=== PATIENT | female | born 1935 | race Two or more races ===

== ENCOUNTER 2016-07-31 05:03 | Inpatient (IN) | payer MEDICARE, BC ==
[~2016-07-31] VITALS: Ht 157.5 cm; Wt 54.4 kg
[2016-07-31] MEDS ORDERED: Vancomycin 1 GM in NS 275 ML IV ONE (05:15)
[2016-07-31] MEDS ORDERED: NS 1000ml 1,400 ML IVLG ONE (05:15)
[2016-07-31] MEDS ORDERED: Cefepime 1gm vial ONE (05:28)
[2016-07-31] MEDS ORDERED: PANTOPRAZOLE SO40 MG GT (05:39)
[2016-07-31] MEDS ORDERED: DIGOXIN250 MCG GT (05:39)
[2016-07-31] MEDS ORDERED: ELIQUIS2.5 MG GT (05:39)
[2016-07-31] MEDS ORDERED: ACETAMINOPHEN120 MG RECTAL (05:39)
[2016-07-31] MEDS ORDERED: OMEPRAZOLE20 M3 GT (05:39)
[2016-07-31] MEDS ORDERED: TRAMADOL HCL50 MG GT (05:39)
[2016-07-31] MEDS ORDERED: ZOFRAN4 M3 GT (05:39)
[2016-07-31] MEDS ORDERED: VITAMIN D250000 UNI1 GT (05:39)
[2016-07-31] MEDS ORDERED: LEVOTHYROXINE75 MCG GT (05:39)
[2016-07-31] MEDS ORDERED: IPRATROPIU0.2 MG/1 M IN-LINE ×2 (05:39)
--- NOTE | 2016-07-31 05:39 | Emergency Room Report ---
History of Present Illness General Chief Complaint: Dyspnea/Respdistress Source: Medical Record, EMS Present Illness HPI Patient is a 81-year-old female sent in by shelter after increased difficulty breathing. Patient had prior history of tracheostomy and metastatic cancer. The patient was noted to have increased difficulty breathing with decreased oxygen saturation and low blood pressure. Patient was noted to have a saturation on approximately 81 by EMS. She started on oxygen via bag valve mask. Patient had been weaned off her ventilator and was noted to have increased leaking of secretions from tracheostomy, Allergies: Coded Allergies: PENICILLINS (Verified Allergy, Unknown, 07/31/16) Patient History Past Medical History: see triage record Reviewed Nursing Documentation: PMH: Agreed, PSxH: Agreed Nursing Documentation-PMH Hx Cardiac Problems: Yes - A FIB,DVT RT UPPER EXTREMITY Hx Cancer: Yes - TONGUE Hx Gastrointestinal Problems: Yes - GASTROSTOMY History Of Psychiatric Problem: Yes - DEPRESSION Review of Systems All Other Systems: limited - by acuity Physical Exam Vital Signs Date Time Temp Pulse Resp B/P Pulse Ox O2 Delivery O2 Flow Rate FiO2 07/31/16 05:07 94 16 60/50 92 Mechanical Ventilator 100 General Appearance: alert, severe distress, Chronically Ill Eyes: bilateral eye PERRL ENT: dry mucus membranes Neck: limited range of motion, other - large amount of yellow fluid around trach Respiratory: respiratory distress, decreased breath sounds, rhonchi Cardiovascular #1: normal peripheral pulses, regular rate, rhythm, no edema Gastrointestinal: normal bowel sounds, non tender, soft, no mass Musculoskeletal: back normal, digits/nails normal Neurologic: alert, oriented x3, 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 Total critical care time excluding procedures approximately 45 minutes. Medical Decision Making Diagnostic Impression: Primary Impression: Respiratory distress Additional Impressions: Tracheostomy in place Pneumonia SCC (squamous cell carcinoma) ER Course Patient presented for respiratory distress. Differential included but was not limited to anemia, pneumonia, pneumothorax, myocardial infarction, pericardial effusion, congestive heart failure, acidosis. Because of complexity of patient' s case laboratory testing and imaging studies were ordered. The patient noted to have some large amount of tracheal secretions. Patient was suctioned and started on mechanical ventilation. She was given a breathing treatment. The patient was noted to have some evidence of pneumonia and was started on antibiotics. The patient was noted to have tolerated Rocephin in the past. The patient be admitted for further management to Dr. saavedra Chest X-Ray Diagnostic Results EP Interpretation: Yes Findings: no effusion, no pneumothorax, other - right lower lobe infiltrate Last Vital Signs Date Time Temp Pulse Resp B/P Pulse Ox O2 Delivery O2 Flow Rate FiO2 07/31/16 05:29 99 15 100 07/31/16 05:07 60/50 92 Mechanical Ventilator Status: unchanged Disposition: ADMITTED INPATIENT Condition: Critical Kg Pérez Jul 31, 2016 05:39
[2016-07-31 05:47] LABS: ABG BASE EXCESS 0.4
[2016-07-31 05:48] LABS: ABG ALLEN TEST POSITIVE
[2016-07-31 05:52] LABS: INR 1.1 (0.9-1.1); PROTHROMBIN TIME 11.6 SEC (9.30-11.50)
[2016-07-31 05:53] LABS: MEAN CORPUSCULAR HEMOGLOBIN 30.2 PG (27.0-31.0); MEAN CORPUSCULAR HGB CONC 31.3 G/DL (32.0-36.0); MEAN CORPUSCULAR VOLUME 97 FL (80-99); MEAN PLATELET VOLUME 6.8 FL (6.5-10.1); PLATELET COUNT 282 K/UL (150-450); RED BLOOD COUNT 3.46 M/UL (4.20-5.40); RED CELL DISTRIBUTION WIDTH 14.2 % (11.6-14.8)
[2016-07-31 05:57] LABS: WHITE BLOOD COUNT 22.4 K/UL (4.8-10.8)
[2016-07-31 05:59] LABS: ALANINE AMINOTRANSFERASE 24 U/L (3-33); ALBUMIN/GLOBULIN RATIO 0.7 (1.0-2.7); ANION GAP 13 (5-15); ASPARTATE AMINO TRANSFERASE 44 U/L (5-40); CALCIUM 8.7 mg/dL (8.6-10.2); CARBON DIOXIDE 30 mEQ/L (20-30); CHLORIDE 89 mEQ/L (98-107); CREATININE 1.2 mg/dL (0.5-0.9); HEMOLYSIS 25; LIPASE 40 U/L (< 60); POTASSIUM 4.7 mEQ/L (3.4-4.9); SODIUM 132 mEQ/L (135-145); TOTAL PROTEIN 6.8 g/dL (6.6-8.7)
[2016-07-31] MEDS ORDERED: Cefepime HCl 1 GM in NS 55 ML IV SCH (06:00)
[2016-07-31 06:03] LABS: TROPONIN I < 0.30 ng/mL (<=0.30)
[2016-07-31 06:08] LABS: REFLEX LACTIC ACID YES OR NO YES
[2016-07-31 06:10] LABS: CKMB 2.8 ng/mL (< 3.8)
[2016-07-31 06:30] VITALS: BP 90/75
[2016-07-31] MEDS ORDERED: Vancomycin 1gm inj IVPB ONE (06:34)
[2016-07-31 07:25] VITALS: BP 99/59
--- NOTE | 2016-07-31 08:34 | Diagnostic Imaging Report ---
Indications: Shortness of breath Technique: Portable AP chest Findings: Comparison: None Increased bronchovascular markings right lung base. Left upper lung obscured by overlying ventilator. Cardiac silhouette partially obscured. Pulmonary vasculature within normal limits. Bilateral costophrenic angles mildly blunted. Aortic arch mildly calcified. Tracheostomy tube in place. IMPRESSION: Right lung base changes likely compressive. Early pneumonia not excludable. Short interval followup recommended. Examination nondiagnostic for left upper lobe lung pathology due to overlying ventilator equipment Suggestion of small bibasal pleural effusions Cardiomegaly not excludable Aortosclerosis Tracheostomy
[2016-07-31 08:40] LABS: ANISOCYTOSIS 1+; BAND NEUTROPHILS % (MANUAL) 0 % (0-8); BASOPHILS % (MANUAL) 0 % (0-2); EOSINOPHILS % (MANUAL) 0 % (0-3); HYPOCHROMASIA 1+; LYMPHOCYTES % (MANUAL) 6 % (20-45); NEUTROPHILS % (MANUAL) 86 % (45-75); PLATELET ESTIMATE ADEQUATE; PLATELET MORPHOLOGY NORMAL; TOTAL CELLS COUNTED 100
[2016-07-31 09:58] LABS: ABG BASE EXCESS 4.7; ABG PCO2 48.8 mmHg (35.0-45.0)
[2016-07-31 09:59] LABS: ABG ALLEN TEST POSITIVE
[2016-07-31] MEDS ORDERED: Amikacin Rx to dose MISC PRN (10:00)
--- NOTE | 2016-07-31 11:05 | Wound Care Consultation ---
Wound Assessment Wound Assessment #1: Wound Number: #1 Wound Present on Admission: Yes New Wound: No Status Change of Wound: No Wound Location Body Site Modif: mid Wound Location Body Site: sacral Wound Type: pressure ulcer - SCATTERED Ross Test: Does not Ross Pressure Ulcer Stage: III Wound Thickness: Full Thickness Wound Length: 3.0 Wound Width: 2.0 Wound Depth: 0.3 Percent of Wound [place]/Red: 100 Wound Drainage Description: Serosanguineous Wound Drainage Amount: Scant Wound Drainage Odor: None/Absent Tissue Surrounding Wound: Macerated Wound General Appearance: Reddened Wound Assessment #2: Wound Number: #2 Wound Present on Admission: Yes New Wound: No Status Change of Wound: No Wound Location Body Site: perineal area Wound Type: chemical burn Ross Test: Does not Ross Percent of Wound [place]/Red: 100 Wound Drainage Amount: None Wound Drainage Odor: None/Absent Tissue Surrounding Wound: Macerated Wound General Appearance: Reddened, Open to air Wound Comment #1 Mid Sacral scattered pressure ulcer stage III. #2 perineal area chemical burn. Recommendation -Apply low air loss overlay (SPR) mattress. -Local wound care as ordered. -Turn and reposition. -Keep clean and dry. -Optimize nutrition. -Heel protectors. -Offload affected sacral site , heels and feet. -Asses and notify if any changes of condition are noted. YADIRA DIAMOND Jul 31, 2016 11:05
[2016-07-31] MEDS ORDERED: Vitamin D 50,000 units cap ORAL SCH (11:45)
[2016-07-31 12:00] VITALS: BP 111/60
[2016-07-31] MEDS: Levofloxacin 500mg tab ORAL SCH (12:28)
[2016-07-31] MEDS: Digoxin Elixir 0.125mg GT SCH (12:30)
[2016-07-31] MEDS ORDERED: traMADol 50mg tab GT PRN (12:30)
[2016-07-31] MEDS: LORazepam Inj 2mg/ml 1ml IV PRN (13:38)
[2016-07-31] MEDS: D5W IV SCH (13:45)
[2016-07-31] MEDS: AMIKACIN IV SCH (13:45)
[2016-07-31] MEDS: DuoNeb 0.5-3(2.5)mg/3ml neb HHN SCH ×3 (15:00→23:16)
[2016-07-31 16:00] VITALS: BP 93/49
--- NOTE | 2016-07-31 19:47 | Consultation ---
DATE OF CONSULTATION: PULMONARY CONSULTATION CONSULTING PHYSICIAN: Brice Grove M.D. REASON FOR ADMISSION: Respiratory failure, possible sepsis. HISTORY OF PRESENT ILLNESS: The patient is a 81-year-old female who was recently admitted to the subacute facility at [facility]. The patient was sent in for increasing difficulty with breathing. The patient had been off the respirator and now readmitted. The patient has a history of tracheostomy and metastatic cancer. The patient with some baseline confusion. She was noted to have difficulty breathing with reduced oxygen level and reduced blood pressure. The patient was apparently bag-valved on transfer. She had previously been off the ventilator, presently is on the ventilator. The patient's care discussed and reviewed in detail. PAST MEDICAL HISTORY: Notable for metastatic cancer, atrial fibrillation, DVT of the right upper extremity, depression, and tongue cancer. MEDICATIONS: Reviewed. ALLERGIES: Reviewed. REVIEW OF SYSTEMS: Limited at present. Difficult to obtain. FAMILY HISTORY: The patient's family history is not available. PHYSICAL EXAMINATION: GENERAL: A well-developed female, chronically ill. VITAL SIGNS: Temperature 99.3, pulse 87, respirations 13, and saturation 100% on 50% FiO2. HEENT: Negative. Pupils are sluggish, but reactive. NECK: Supple. Some deformity noted. The patient has a tracheostomy in the midline. Carotids are 2+. LUNGS: Coarse breath sounds. Moderate air entry. CARDIAC: Normal S1 and S2. Regular rhythm without murmurs, rubs, or gallops. ABDOMEN: Soft, nontender, and nondistended. No hepatosplenomegaly. EXTREMITIES: No cyanosis or clubbing. There is trace edema. Degenerative joint disease. NEUROLOGICAL: Reduced mental status overall. Difficulty to fully assess. LABORATORY DATA: White blood cell count 22.4, hemoglobin 10.5, hematocrit 33.5, and platelets are 282,000. Chemistry, sodium 132, BUN 21, creatinine 1.2, and blood sugar 226. Lactic acid 5.5, repeated is 3.6. Arterial blood gas is 7.26, 64, 440, and 28. The chest x-ray reviewed as well, reveals right lung base with potential changes, possible early pneumonia. IMPRESSION: 1. History of tongue cancer. 2. Evidence of bilateral pleural effusion. 3. Respiratory failure. 4. Acute respiratory acidosis. 5. Hypoxemia. 6. Evidence of transient hypotension. 7. Leukocytosis. 8. Possible sepsis. 9. Significant lactic acidemia 10. Elevated liver enzymes. 11. Elevated natriuretic peptide. 12. Evidence of anemia. 13. Failure to thrive. 14. Atrial fibrillation, paroxysmal. RECOMMENDATION: Resume senior living medications. Aggressive antibiotics. Anticoagulation for atrial fibrillation, paroxysmal. Monitor TSH. Continue with Synthroid. IV hydration with caution. Respiratory care. Ventilatory support. Follow for arterial blood gases after ventilation has stabilized. Monitor cultures. Obtain ID evaluation and nutritional support. The patient is guarded at present. We will update family once available, and we will continue to support and stabilize. Monitor changes in oxygenation and hope to transfer back to the subacute when stabilized. We will need to discuss advance directive as well. Brice Grove M.D. DR: MARIAM JOB#: [id number] CC:
[2016-07-31 20:00] VITALS: BP 105/46
[2016-07-31 22:19] LABS: APPEARANCE,URINE CLEAR; KETONES,URINE 2+ (NEGATIVE); LEUKOCYTE ESTERASE ,URINE 2+ (NEGATIVE); NITRITE,URINE NEGATIVE (NEGATIVE); PH,URINE 6 (4.5-8.0); PROTEIN,URINE 2+ (NEGATIVE); UROBILINOGEN,URINE NORMAL MG/DL (0.0-1.0)
[2016-07-31 22:36] LABS: BACTERIA,URINE FEW /HPF
[2016-08-01] VITALS: BP 105/49
[2016-08-01] MEDS: AMIKACIN IV SCH (00:48)
[2016-08-01] MEDS: D5W IV SCH (00:48)
--- NOTE | 2016-08-01 01:28 | History and Physical Report ---
DATE OF ADMISSION: 07/31/2016 CHIEF COMPLAINT: Respiratory distress. HISTORY OF PRESENT ILLNESS: The patient is an unfortunate 81-year-old female well known to me. She has a prior history of squamous cell carcinoma of the tongue, status post resection. She received radiation therapy and hormonal treatment and had been doing well. A little over a month and a half ago, she developed upper gastrointestinal bleed, was admitted to [facility]. She developed aspiration pneumonia and was intubated on several occasions, eventually had placement of a tracheostomy. Because of persistent shortness of breath and positive secretions. She went to [facility] and was later transferred to rehabilitation addison on [facility]. She has only been there for a few days when she apparently became short of breath and congested, was transferred to the emergency room where she was diagnosed with aspiration pneumonia and sepsis. A tracheostomy was replaced in the emergency room and the patient is now on the ventilator. She is poorly responsive. She has received Ativan for anxiety. PAST MEDICAL HISTORY: As above. PAST SURGICAL HISTORY: As above. She has a history of tracheostomy. She has a history of G-tube. CURRENT MEDICATIONS: Reconciled and reviewed. ALLERGIES: Include penicillin. FAMILY HISTORY: Noncontributory. SOCIAL HISTORY: There is no known history of tobacco, ethanol, or drugs. REVIEW OF SYSTEMS: Not obtainable as the patient is confused. PHYSICAL EXAMINATION: VITAL SIGNS: Temperature 98 degrees, blood pressure is 93/49, pulse of 90, and respirations 14. GENERAL: The patient is a chronically ill-appearing female. She opens eyes, but is otherwise poorly responsive. Does not follow commands. NECK: Supple. HEART: Regular rate and rhythm. LUNGS: Bilateral rhonchi. ABDOMEN: Soft, nontender, and nondistended. EXTREMITIES: Without clubbing, cyanosis, or edema. LABORATORY AND DIAGNOSTIC DATA: White count was 23,000, hemoglobin 10, hematocrit 33, and platelets of 282,000. ABG showed a pH of 7.4, pCO2 of 48, pO2 of 143, bicarb of 30, and O2 saturation 98%. Sodium was 132, potassium 4.7, chloride 89, bicarb 30, BUN 21, and creatinine 1.2. Natriuretic peptide level was 2300. Lactic acid level was 5.5. Chest x-ray shows right lung compressive changes, possible early pneumonia. ASSESSMENT: 1. 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 2. Respiratory failure. 3. History of metastatic squamous cell carcinoma. PLAN: IV antibiotics, vent support, continue respiratory treatments. Continue G-tube feeds. Plan and care was discussed at length with the patient's son. He states that his mother expressed her wish is to be a Full Code, continue with aggressive treatment. Rico Madrigal M.D. DR: MARY JOB#: [id number] CC:
[2016-08-01] MEDS: DuoNeb 0.5-3(2.5)mg/3ml neb HHN SCH ×6 (02:35→23:07)
[2016-08-01 04:00] VITALS: BP 110/47
[2016-08-01 04:48] LABS: BASOPHILS % (AUTO) 0.8 % (0.0-2.0); EOSINOPHILS % (AUTO) 0.1 % (0.0-3.0); LYMPHOCYTES % (AUTO) 12.4 % (20.0-45.0); MEAN CORPUSCULAR HEMOGLOBIN 30.4 PG (27.0-31.0); MEAN CORPUSCULAR HGB CONC 32.9 G/DL (32.0-36.0); MEAN CORPUSCULAR VOLUME 92 FL (80-99); MEAN PLATELET VOLUME 6.4 FL (6.5-10.1); MONOCYTES % (AUTO) 9.9 % (1.0-10.0); NEUTROPHILS % (AUTO) 76.7 % (45.0-75.0); PLATELET COUNT 203 K/UL (150-450); RED BLOOD COUNT 2.78 M/UL (4.20-5.40); RED CELL DISTRIBUTION WIDTH 13.8 % (11.6-14.8); WHITE BLOOD COUNT 13.9 K/UL (4.8-10.8)
[2016-08-01 05:54] LABS: ANION GAP 13 (5-15); CALCIUM 7.8 mg/dL (8.6-10.2); CARBON DIOXIDE 25 mEQ/L (20-30); CHLORIDE 97 mEQ/L (98-107); CREATININE 0.8 mg/dL (0.5-0.9); HEMOLYSIS 12; POTASSIUM 4.1 mEQ/L (3.4-4.9); SODIUM 135 mEQ/L (135-145)
[2016-08-01] MEDS: Vancomycin 750 MG in NS 275 ML IVPB SCH (06:21)
[2016-08-01 06:35] LABS: ABG ALLEN TEST POSITIVE; ABG BASE EXCESS 5.4; ABG PCO2 38.8 mmHg (35.0-45.0)
[2016-08-01 08:00] VITALS: BP 91/42
--- NOTE | 2016-08-01 08:24 | Pulmonology Progress Note ---
Assessment/Plan Assessment/Plan IMPRESSION: 1. History of tongue cancer. 2. Evidence of bilateral pleural effusion. 3. Respiratory failure. 4. Acute respiratory acidosis. 5. Hypoxemia. 6. Evidence of transient hypotension. 7. Leukocytosis. 8. Possible sepsis. 9. Significant lactic acidemia 10. Elevated liver enzymes. 11. Elevated natriuretic peptide. 12. Evidence of anemia. 13. Failure to thrive. 14. Atrial fibrillation, paroxysmal. PLAN IV antibiotics respiratory care as is oxygen therapy suction follow up cultures ID follow up monitor hemodynamics stabilize and transfer back to subacute impression, plan, and exam edited and reviewed in detail care discussed with RN Subjective ROS Limited/Unobtainable: Yes Allergies: Coded Allergies: PENICILLINS (Verified Allergy, Unknown, 07/31/16) Subjective care noted and reviewed d/w nursing Objective Last 24 Hour Vital Signs Date Time Temp Pulse Resp B/P Pulse Ox O2 Delivery O2 Flow Rate FiO2 08/01/16 06:40 85 14 100 Mechanical Ventilator 40 08/01/16 06:40 85 14 40 08/01/16 06:30 84 14 100 Mechanical Ventilator 40 08/01/16 06:30 40 08/01/16 04:55 86 14 40 08/01/16 04:00 98.0 90 14 110/47 100 Mechanical Ventilator 40 08/01/16 04:00 40 08/01/16 03:41 97 08/01/16 02:41 91 14 100 Mechanical Ventilator 40 08/01/16 02:37 88 14 100 Mechanical Ventilator 40 08/01/16 02:37 40 08/01/16 02:36 88 14 40 08/01/16 00:33 91 14 40 08/01/16 00:00 98.4 98 14 105/49 98 Mechanical Ventilator 40 08/01/16 00:00 40 07/31/16 23:48 99 07/31/16 23:26 89 14 100 Mechanical Ventilator 40 07/31/16 23:22 87 14 100 Mechanical Ventilator 40 07/31/16 23:22 40 07/31/16 23:22 87 14 40 07/31/16 21:11 90 14 40 07/31/16 20:00 98.2 97 14 105/46 100 Room Air 07/31/16 19:34 98 07/31/16 19:03 95 14 100 Mechanical Ventilator 40 07/31/16 18:59 94 15 100 Mechanical Ventilator 40 07/31/16 18:59 40 07/31/16 18:56 93 15 40 07/31/16 17:14 40 07/31/16 17:08 95 14 40 07/31/16 16:00 50 07/31/16 16:00 98.4 90 14 93/49 100 Mechanical Ventilator 50 07/31/16 15:52 94 14 45 07/31/16 15:44 92 07/31/16 15:35 94 14 100 Mechanical Ventilator 45 07/31/16 15:30 93 14 100 Mechanical Ventilator 45 07/31/16 15:30 45 07/31/16 13:15 82 19 45 07/31/16 12:30 82 07/31/16 12:00 97.5 100 18 111/60 95 Mechanical Ventilator 50 07/31/16 11:00 84 14 45 07/31/16 09:00 100 07/31/16 09:00 100 07/31/16 09:00 97 07/31/16 08:47 86 16 50 Intake and Output 07/31/16 08/01/16 18:59 06:59 Intake Total 941.4 ml 1590 ml Output Total 100 ml 750 ml Balance 841.4 ml 840 ml Intake Oral 0 ml Free Water 150 ml 0 ml IV Total 611.4 ml 1200 ml Tube Feeding 180 ml 360 ml Blood Product 30 ml Output Urine Total 100 ml 750 ml # Bowel Movements 4 1 Objective GENERAL: A well-developed female, chronically ill. HEENT: Negative. Pupils are sluggish, but reactive. NECK: Supple. Some deformity noted. The patient has a tracheostomy in the midline. Carotids are 2+. LUNGS: Coarse breath sounds. Moderate air entry. with mild improvement CARDIAC: Normal S1 and S2. Regular rhythm without murmurs, rubs, or gallops. ABDOMEN: Soft, nontender, and nondistended. No hepatosplenomegaly. EXTREMITIES: No cyanosis or clubbing. There is trace edema. Degenerative joint disease. NEUROLOGICAL: Reduced mental status overall. Difficulty to fully assess. Laboratory Tests 07/31/16 09:50: Arterial Blood pH 7.400, Arterial Blood Partial Pressure CO2 48.8H, Arterial Blood Partial Pressure O2 143.7H, Arterial Blood HCO3 30.1H, Arterial Blood Oxygen Saturation 98.7H, Arterial Blood Base Excess 4.7, Talha Test Positive 07/31/16 21:00: Urine Color Yellow, Urine Appearance Clear, Urine pH 6, Urine Specific [place] 1.010, Urine Protein 2+H, Urine Glucose (UA) Negative, Urine Ketones 2+H, Urine Occult Blood 5+H, Urine Nitrite Negative, Urine Bilirubin Negative, Urine Urobilinogen Normal, Urine Leukocyte Esterase 2+H, Urine RBC 5-10H, Urine WBC 2- 4, Urine Squamous Epithelial Cells None, Urine Bacteria Few 08/01/16 03:15: White Blood Count 13.9H, Red Blood Count 2.78L, Hemoglobin 8.5L, Hematocrit 25.7L, Mean Corpuscular Volume 92, Mean Corpuscular Hemoglobin 30.4, Mean Corpuscular Hemoglobin Concent 32.9, Red Cell Distribution Width 13.8, Platelet Count 203, Mean Platelet Volume 6.4L, Neutrophils (%) (Auto) 76.7H, Lymphocytes (%) (Auto) 12.4L, Monocytes (%) (Auto) 9.9, Eosinophils (%) (Auto) 0.1, Basophils (%) (Auto) 0.8, Sodium Level 135, Potassium Level 4.1, Chloride Level 97L, Carbon Dioxide Level 25, Anion Gap 13, Blood Urea Nitrogen 19, Creatinine 0.8, Estimat Glomerular Filtration Rate , Glucose Level 104#, Calcium Level 7.8L 08/01/16 06:30: Arterial Blood pH 7.490H, Arterial Blood Partial Pressure CO2 38.8, Arterial Blood Partial Pressure O2 157.6H, Arterial Blood HCO3 29.0H, Arterial Blood Oxygen Saturation 98.8H, Arterial Blood Base Excess 5.4, Talha Test Positive Current Medications Medications (Trade) Dose Ordered Sig/Josiah Route PRN Reason Start Time Stop Time Status Last Admin Dose Admin Acetaminophen 650 mg 650 mg Q4H PRN ORAL Mild Pain/Temp > 100.5 07/31/16 10:30 08/30/16 10:29 Albuterol/ Ipratropium (DuoNeb 0.5-3(2.5)mg/3ml) 3 ml Q4HRT HHN 07/31/16 15:00 08/05/16 14:59 08/01/16 07:59 Amikacin Protocol 1 ea 1 ea DAILY PRN MISC Per rx protocol 07/31/16 10:00 08/30/16 09:59 Amikacin Sulfate/ Dextrose (Amikin/D5W) 111.4 ml @ 222 mls/hr Q12H IV 07/31/16 13:00 08/07/16 12:59 08/01/16 00:48 Digoxin (Lanoxin) 0.25 mg DAILY GT 07/31/16 12:30 08/30/16 12:29 07/31/16 12:30 Levofloxacin (Levaquin) 500 mg DAILY ORAL 07/31/16 11:00 08/07/16 10:59 07/31/16 12:28 Lorazepam (Ativan 2mg/ml 1ml) 1 mg Q3H PRN IV For Anxiety 07/31/16 10:30 08/07/16 10:29 07/31/16 13:38 Ondansetron HCl (Zofran) 4 mg Q6H PRN IVP Nausea & Vomiting 07/31/16 12:30 08/30/16 12:29 Sodium Chloride (Sodium Chloride 1000ml bag) 1,000 ml @ 100 mls/hr Q10H IV 07/31/16 10:30 08/30/16 10:29 08/01/16 06:21 Tramadol HCl (Ultram) 25 mg Q6H PRN GT Moderate Pain (Pain Scale 4-6) 07/31/16 12:30 08/07/16 12:29 Vancomycin HCl (Vanco rx to dose) 1 ea DAILY PRN MISC Per rx protocol 07/31/16 09:45 08/30/16 09:44 Vancomycin HCl 750 mg/Sodium Chloride 275 ml @ 183.708 mls/hr Q24H IVPB 08/01/16 06:00 08/06/16 05:59 08/01/16 06:21 MARCY MAJOR Aug 01, 2016 08:24
[2016-08-01] MEDS: Digoxin Elixir 0.125mg GT SCH (09:00)
[2016-08-01] MEDS: Levofloxacin 500mg tab ORAL SCH (10:32)
[2016-08-01] MEDS: LORazepam Inj 2mg/ml 1ml IV PRN ×2 (11:03→18:37)
[2016-08-01 12:00] VITALS: BP 84/40
[2016-08-01] MEDS: metroNIDAZOLE 500mg tab ORAL SCH ×2 (14:47→21:11)
[2016-08-01 16:00] VITALS: BP 112/50
--- NOTE | 2016-08-01 17:21 | General Progress Note ---
Assessment/Plan Problem List: (1) Respiratory distress ICD Codes: R06.00 - Dyspnea, unspecified SNOMED: 946731145 (2) Pneumonia ICD Codes: J18.9 - Pneumonia, unspecified organism SNOMED: 869509733 (3) SCC (squamous cell carcinoma) ICD Codes: C44.92 - Squamous cell carcinoma of skin, unspecified SNOMED: 983894009 (4) Tracheostomy in place ICD Codes: Z93.0 - Tracheostomy status SNOMED: 984049046 Status: stable Assessment/Plan iv abx follow up cultures resp care suctioning feeds monitor h/h transfuse prn full code per son Subjective ROS Limited/Unobtainable: No Constitutional: Reports: malaise, weakness HEENT: Reports: no symptoms Cardiovascular: Reports: no symptoms Respiratory: Reports: cough, shortness of breath, sputum Gastrointestinal/Abdominal: Reports: difficulty swallowing Genitourinary: Reports: no symptoms Neurologic/Psychiatric: Reports: no symptoms Endocrine: Reports: no symptoms Hematologic/Lymphatic: Reports: anemia Allergies: Coded Allergies: PENICILLINS (Verified Allergy, Unknown, 07/31/16) All Systems: reviewed and negative except above Subjective on the vent. less congested. on iv abx. wbc improved. h/h noted. cultures noted. d/w with son at length Objective Last 24 Hour Vital Signs Date Time Temp Pulse Resp B/P Pulse Ox O2 Delivery O2 Flow Rate FiO2 08/01/16 16:53 79 14 35 08/01/16 16:00 40 08/01/16 16:00 96.8 101 15 112/50 99 Mechanical Ventilator 40 08/01/16 15:10 77 14 40 08/01/16 15:10 77 14 100 Mechanical Ventilator 40 08/01/16 15:00 40 08/01/16 15:00 74 14 100 Mechanical Ventilator 40 08/01/16 13:31 86 14 40 08/01/16 12:00 40 08/01/16 12:00 91 08/01/16 12:00 97.3 95 14 84/40 99 Mechanical Ventilator 40 08/01/16 10:43 94 14 100 Mechanical Ventilator 40 08/01/16 10:43 94 16 40 08/01/16 10:35 90 14 100 Mechanical Ventilator 40 08/01/16 10:35 40 08/01/16 09:23 87 16 40 08/01/16 09:00 87 2/28/17 08:00 40 08/01/16 08:00 94 08/01/16 08:00 97.7 92 14 91/42 100 Mechanical Ventilator 40 08/01/16 06:40 85 14 100 Mechanical Ventilator 40 08/01/16 06:40 85 14 40 08/01/16 06:30 84 14 100 Mechanical Ventilator 40 08/01/16 06:30 40 08/01/16 04:55 86 14 40 08/01/16 04:00 98.0 90 14 110/47 100 Mechanical Ventilator 40 08/01/16 04:00 40 08/01/16 03:41 97 08/01/16 02:41 91 14 100 Mechanical Ventilator 40 08/01/16 02:37 88 14 100 Mechanical Ventilator 40 08/01/16 02:37 40 08/01/16 02:36 88 14 40 08/01/16 00:33 91 14 40 08/01/16 00:00 98.4 98 14 105/49 98 Mechanical Ventilator 40 08/01/16 00:00 40 07/31/16 23:48 99 07/31/16 23:26 89 14 100 Mechanical Ventilator 40 07/31/16 23:22 87 14 100 Mechanical Ventilator 40 07/31/16 23:22 40 07/31/16 23:22 87 14 40 07/31/16 21:11 90 14 40 07/31/16 20:00 98.2 97 14 105/46 100 Room Air 07/31/16 19:34 98 07/31/16 19:03 95 14 100 Mechanical Ventilator 40 07/31/16 18:59 94 15 100 Mechanical Ventilator 40 07/31/16 18:59 40 07/31/16 18:56 93 15 40 Intake and Output 07/31/16 08/01/16 19:00 07:00 Intake Total 1071.4 ml 1590 ml Output Total 100 ml 750 ml Balance 971.4 ml 840 ml Intake Oral 0 ml Free Water 150 ml 0 ml IV Total 711.4 ml 1200 ml Tube Feeding 210 ml 360 ml Blood Product 30 ml Output Urine Total 100 ml 750 ml # Bowel Movements 4 1 Laboratory Tests 07/31/16 21:00: Urine Color Yellow, Urine Appearance Clear, Urine pH 6, Urine Specific [place] 1.010, Urine Protein 2+H, Urine Glucose (UA) Negative, Urine Ketones 2+H, Urine Occult Blood 5+H, Urine Nitrite Negative, Urine Bilirubin Negative, Urine Urobilinogen Normal, Urine Leukocyte Esterase 2+H, Urine RBC 5-10H, Urine WBC 2- 4, Urine Squamous Epithelial Cells None, Urine Bacteria Few 08/01/16 03:15: White Blood Count 13.9H, Red Blood Count 2.78L, Hemoglobin 8.5L, Hematocrit 25.7L, Mean Corpuscular Volume 92, Mean Corpuscular Hemoglobin 30.4, Mean Corpuscular Hemoglobin Concent 32.9, Red Cell Distribution Width 13.8, Platelet Count 203, Mean Platelet Volume 6.4L, Neutrophils (%) (Auto) 76.7H, Lymphocytes (%) (Auto) 12.4L, Monocytes (%) (Auto) 9.9, Eosinophils (%) (Auto) 0.1, Basophils (%) (Auto) 0.8, Sodium Level 135, Potassium Level 4.1, Chloride Level 97L, Carbon Dioxide Level 25, Anion Gap 13, Blood Urea Nitrogen 19, Creatinine 0.8, Estimat Glomerular Filtration Rate , Glucose Level 104#, Calcium Level 7.8L 08/01/16 06:30: Arterial Blood pH 7.490H, Arterial Blood Partial Pressure CO2 38.8, Arterial Blood Partial Pressure O2 157.6H, Arterial Blood HCO3 29.0H, Arterial Blood Oxygen Saturation 98.8H, Arterial Blood Base Excess 5.4, Talha Test Positive 08/01/16 12:30: Amikacin Level Trough 4.5L 08/01/16 14:45: Amikacin Level Peak 3.4L Height (Feet): 5 Height (Inches): 2.00 Weight (Pounds): 120 General Appearance: WD/WN, lethargic, mild distress Neck: supple Cardiovascular: regular rhythm Respiratory/Chest: rhonchi - bilaterally Abdomen: normal bowel sounds, non tender, soft, no organomegaly, no mass Edema: no edema noted Arm (L), no edema noted Arm (R), no edema noted Leg (L), no edema noted Leg (R), no edema noted Pedal (L), no edema noted Pedal (R), no edema noted Generalized Neurologic: disoriented, aphasia CHRISTINA HAMMOND Aug 01, 2016 17:21
--- NOTE | 2016-08-01 17:48 | Consultation ---
DATE OF CONSULTATION: 08/01/2016 INFECTIOUS DISEASES CONSULTATION CONSULTING PHYSICIAN: Sai Armstrong M.D. REFERRING PHYSICIAN: Brice Grove M.D. REASON FOR CONSULTATION: Pneumonia. 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 She was found to have a pneumonia and an Infectious Diseases consultation has been obtained for antibiotics. PAST MEDICAL HISTORY: 1. 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 2. History of respiratory failure, status post tracheostomy. 3. Status post G-tube placement. MEDICATIONS: As an inpatient, the patient is on IV vancomycin, albuterol, amikacin, digoxin, Zofran, Ultram, Levaquin, Tylenol, and lorazepam. ALLERGIES: The patient is allergic to penicillin. SOCIAL HISTORY: No history of smoking, alcohol, or drug use. FAMILY HISTORY: Unknown. REVIEW OF SYSTEMS: Unable to obtain currently. PHYSICAL EXAMINATION: VITAL SIGNS: Temperature of 97.7 degrees, T-max of 98.4 degrees, pulse of 94, respiratory rate of 16, blood pressure of 91/42, and O2 saturation of 100%. HEENT: Pupils equally reactive to light and accommodation. Mouth appears clean without thrush. NECK: Tracheostomy site appears clean. CARDIOVASCULAR: Regular rate and rhythm. No murmurs. LUNGS: Clear to auscultation bilaterally. No crackles. No wheezes. ABDOMEN: Soft and nontender. No organomegaly. G-tube site appears clean. EXTREMITIES: No cyanosis, no clubbing, and no edema. LABORATORY DATA: White count of 22.4 yesterday, white count of 13.9 today, hemoglobin 8.5, hematocrit 25.7, MCV 92, and platelet count of 203,000 with neutrophils of 76%. Sodium 135, potassium 4.1, chloride 97, bicarbonate 25, BUN 19, creatinine 0.8, glucose 104, and calcium 7.8. On 07/31/2016, total bilirubin 0.3. AST 44, ALT 24, and alkaline phosphatase 92. CK of 193. CK-MB 2.8. Troponin less than 0.3. Total protein 6.8. Albumin 2.9. Lipase of 40. UA is showing 2 to 4 white cells. Chest x-ray is showing right lung base early pneumonia and possible small bibasilar pleural effusions noted. ASSESSMENT: 1. This is a 81-year-old lady with history of squamous cell carcinoma of the tongue with respiratory failure, who comes in now with a possible aspiration pneumonia. 2. Leukocytosis is improving. 3. Squamous cell carcinoma of the tongue. PLAN: 1. We will order sputum for Gram stain and culture. 2. We will order urine cultures. 3. We will order stool for C. difficile colitis. 4. Continue vancomycin. 5. Discontinue amikacin and Levaquin. 6. We will start the patient on cefepime and Flagyl. 7. We will follow up cultures and adjust antibiotics accordingly. I would like to thank, Dr. Grove, for this consultation. Sai Charles M.D. DR: DAVIDE JOB#: [id number] CC: Brice Grove M.D.
--- NOTE | 2016-08-01 18:51 | Cardiology Report ---
APPROVED REPORT EKG Measurement Heart [id number] Normal sinus rhythm Normal ECG
[2016-08-01 20:00] VITALS: BP 96/50
[2016-08-01] MEDS: Heparin 5000 units/ml inj SUBQ SCH (21:12)
[2016-08-02] VITALS: BP 106/40
[2016-08-02] MEDS: DuoNeb 0.5-3(2.5)mg/3ml neb HHN SCH ×6 (03:24→23:09)
[2016-08-02 04:00] VITALS: BP 99/41
[2016-08-02] MEDS: metroNIDAZOLE 500mg tab ORAL SCH ×2 (06:36→14:22)
[2016-08-02] MEDS: Vancomycin 750 MG in NS 275 ML IVPB SCH (06:52)
[2016-08-02 08:00] VITALS: BP 124/64
--- NOTE | 2016-08-02 08:11 | General Progress Note ---
Assessment/Plan Problem List: (1) Respiratory distress ICD Codes: R06.00 - Dyspnea, unspecified SNOMED: 913232016 (2) Pneumonia ICD Codes: J18.9 - Pneumonia, unspecified organism SNOMED: 459755667 (3) SCC (squamous cell carcinoma) ICD Codes: C44.92 - Squamous cell carcinoma of skin, unspecified SNOMED: 539807456 (4) Tracheostomy in place ICD Codes: Z93.0 - Tracheostomy status SNOMED: 040115396 Status: stable, unchanged Assessment/Plan iv abx follow up cultures resp care suctioning wean as able feeds monitor h/h transfuse prn full code per son Subjective ROS Limited/Unobtainable: No Constitutional: Reports: malaise, weakness HEENT: Reports: no symptoms Cardiovascular: Reports: no symptoms Respiratory: Reports: shortness of breath Gastrointestinal/Abdominal: Reports: difficulty swallowing Genitourinary: Reports: no symptoms Neurologic/Psychiatric: Reports: no symptoms Endocrine: Reports: no symptoms Hematologic/Lymphatic: Reports: anemia Allergies: Coded Allergies: PENICILLINS (Verified Allergy, Unknown, 07/31/16) All Systems: reviewed and negative except above Subjective on the vent. less congested. on iv abx. wbc improved. h/h noted. cultures noted. Objective Last 24 Hour Vital Signs Date Time Temp Pulse Resp B/P Pulse Ox O2 Delivery O2 Flow Rate FiO2 08/02/16 07:24 83 14 30 08/02/16 04:30 82 14 30 08/02/16 04:00 40 08/02/16 04:00 97.5 101 20 99/41 98 Mechanical Ventilator 08/02/16 03:48 101 08/02/16 03:38 82 14 100 Mechanical Ventilator 30 08/02/16 03:25 30 08/02/16 03:24 84 17 30 08/02/16 03:24 84 17 100 Mechanical Ventilator 30 08/02/16 01:01 86 14 30 08/02/16 00:19 106 08/02/16 00:00 40 08/02/16 00:00 98.2 105 20 106/40 100 Mechanical Ventilator 08/01/16 23:21 86 14 100 Mechanical Ventilator 30 08/01/16 23:09 30 08/01/16 23:08 81 14 30 08/01/16 23:07 81 14 100 Mechanical Ventilator 30 08/01/16 20:43 85 14 30 08/01/16 20:00 97.0 95 19 96/50 100 Mechanical Ventilator 30 08/01/16 20:00 40 08/01/16 19:42 30 08/01/16 19:30 81 14 100 Mechanical Ventilator 30 08/01/16 19:28 98 08/01/16 19:25 87 14 35 08/01/16 19:15 87 14 100 Mechanical Ventilator 30 08/01/16 19:15 30 08/01/16 16:53 79 14 35 08/01/16 16:00 40 08/01/16 16:00 96.8 101 15 112/50 99 Mechanical Ventilator 40 08/01/16 15:18 81 08/01/16 15:10 77 14 40 08/01/16 15:10 77 14 100 Mechanical Ventilator 40 08/01/16 15:00 40 08/01/16 15:00 74 14 100 Mechanical Ventilator 40 08/01/16 13:31 86 14 40 08/01/16 12:00 40 08/01/16 12:00 91 08/01/16 12:00 97.3 95 14 84/40 99 Mechanical Ventilator 40 08/01/16 10:43 94 14 100 Mechanical Ventilator 40 08/01/16 10:43 94 16 40 08/01/16 10:35 90 14 100 Mechanical Ventilator 40 08/01/16 10:35 40 08/01/16 09:23 87 16 40 08/01/16 09:00 87 Intake and Output 08/01/16 08/02/16 19:00 07:00 Intake Total 1368.108 ml 1606 ml Output Total 1300 ml 750 ml Balance 68.108 ml 856 ml Free Water 50 ml 30 ml IV Total 988.108 ml 1186 ml Tube Feeding 330 ml 330 ml Other 60 ml Output Urine Total 1300 ml 750 ml # Bowel Movements 2 3 Laboratory Tests 08/01/16 12:30: Amikacin Level Trough 4.5L 08/01/16 14:45: Amikacin Level Peak 3.4L 08/02/16 05:00: Vancomycin Level Trough 6.0 Height (Feet): 5 Height (Inches): 2.00 Weight (Pounds): 120 Objective General Appearance: WD/WN, lethargic, mild distress Neck: supple Cardiovascular: regular rhythm Respiratory/Chest: rhonchi - bilaterally Abdomen: normal bowel sounds, non tender, soft, no organomegaly, no mass Edema: no edema noted Arm (L), no edema noted Arm (R), no edema noted Leg (L), no edema noted Leg (R), no edema noted Pedal (L), no edema noted Pedal (R), no edema noted Generalized Neurologic: disoriented, aphasia CHRISTINA HAMMOND Aug 02, 2016 08:11
[2016-08-02] MEDS: Digoxin Elixir 0.125mg GT SCH (08:32)
[2016-08-02] MEDS: Heparin 5000 units/ml inj SUBQ SCH ×2 (09:00→21:03)
--- NOTE | 2016-08-02 09:54 | Pulmonology Progress Note ---
Assessment/Plan Assessment/Plan IMPRESSION: 1. History of tongue cancer. 2. Evidence of bilateral pleural effusion. 3. Respiratory failure. 4. Acute respiratory acidosis. 5. Hypoxemia. 6. Evidence of transient hypotension. 7. Leukocytosis. 8. Possible sepsis. 9. Significant lactic acidemia 10. Elevated liver enzymes. 11. Elevated natriuretic peptide. 12. Evidence of anemia. 13. Failure to thrive. 14. Atrial fibrillation, paroxysmal. PLAN IV antibiotics respiratory care as is oxygen therapy suction may need transfusion follow up cultures and taper antibiotics ID follow up and clearance monitor hemodynamics monitor trach and airway and secretions stabilize and transfer back to subacute impression, plan, and exam edited and reviewed in detail care discussed with RN Subjective ROS Limited/Unobtainable: Yes Allergies: Coded Allergies: PENICILLINS (Verified Allergy, Unknown, 07/31/16) Subjective care noted and reviewed d/w nursing and changes updated Objective Last 24 Hour Vital Signs Date Time Temp Pulse Resp B/P Pulse Ox O2 Delivery O2 Flow Rate FiO2 08/02/16 08:32 100 08/02/16 08:00 97.9 88 14 124/64 100 Mechanical Ventilator 30 08/02/16 07:24 83 14 30 08/02/16 04:30 82 14 30 08/02/16 04:00 40 08/02/16 04:00 97.5 101 20 99/41 98 Mechanical Ventilator 08/02/16 03:48 101 08/02/16 03:38 82 14 100 Mechanical Ventilator 30 08/02/16 03:25 30 08/02/16 03:24 84 17 30 08/02/16 03:24 84 17 100 Mechanical Ventilator 30 08/02/16 01:01 86 14 30 08/02/16 00:19 106 08/02/16 00:00 40 08/02/16 00:00 98.2 105 20 106/40 100 Mechanical Ventilator 08/01/16 23:21 86 14 100 Mechanical Ventilator 30 08/01/16 23:09 30 08/01/16 23:08 81 14 30 08/01/16 23:07 81 14 100 Mechanical Ventilator 30 08/01/16 20:43 85 14 30 08/01/16 20:00 97.0 95 19 96/50 100 Mechanical Ventilator 30 08/01/16 20:00 40 08/01/16 19:42 30 08/01/16 19:30 81 14 100 Mechanical Ventilator 30 08/01/16 19:28 98 08/01/16 19:25 87 14 35 08/01/16 19:15 87 14 100 Mechanical Ventilator 30 08/01/16 19:15 30 08/01/16 16:53 79 14 35 08/01/16 16:00 40 08/01/16 16:00 96.8 101 15 112/50 99 Mechanical Ventilator 40 08/01/16 15:18 81 08/01/16 15:10 77 14 40 08/01/16 15:10 77 14 100 Mechanical Ventilator 40 08/01/16 15:00 40 08/01/16 15:00 74 14 100 Mechanical Ventilator 40 08/01/16 13:31 86 14 40 08/01/16 12:00 40 08/01/16 12:00 91 08/01/16 12:00 97.3 95 14 84/40 99 Mechanical Ventilator 40 08/01/16 10:43 94 14 100 Mechanical Ventilator 40 08/01/16 10:43 94 16 40 08/01/16 10:35 90 14 100 Mechanical Ventilator 40 08/01/16 10:35 40 Intake and Output 08/01/16 08/02/16 19:00 07:00 Intake Total 1368.108 ml 1606 ml Output Total 1300 ml 750 ml Balance 68.108 ml 856 ml Free Water 50 ml 30 ml IV Total 988.108 ml 1186 ml Tube Feeding 330 ml 330 ml Other 60 ml Output Urine Total 1300 ml 750 ml # Bowel Movements 2 3 Objective GENERAL: A well-developed female, chronically ill. HEENT: Negative. Pupils are sluggish, but reactive. NECK: Supple. Some deformity noted. The patient has a tracheostomy in the midline. Carotids are 2+. LUNGS: Coarse breath sounds. Moderate air entry. without change CARDIAC: Normal S1 and S2. Regular rhythm without murmurs, rubs, or gallops. ABDOMEN: Soft, nontender, and nondistended. No hepatosplenomegaly. EXTREMITIES: No cyanosis or clubbing. There is trace edema. Degenerative joint disease. NEUROLOGICAL: Reduced LOC. Microbiology Date/Time Source Procedure Growth Status 07/31/16 05:00 Blood Blood Culture - Preliminary NO GROWTH AFTER 24 HOURS Resulted 07/31/16 05:00 Blood Blood Culture - Preliminary NO GROWTH AFTER 24 HOURS Resulted 07/31/16 21:00 Sputum Gram Stain Pending Resulted 07/31/16 21:00 Sputum Culture - Preliminary Gram Negative Bacillus 1 Resulted 08/01/16 12:00 Stool Clostridium difficile Toxin Assay - Final Complete 07/31/16 05:30 Rectum VRE Culture - Final NO VANCOMYCIN RESISTANT ENTEROCOCCUS ... Complete Laboratory Tests 08/01/16 12:30: Amikacin Level Trough 4.5L 08/01/16 14:45: Amikacin Level Peak 3.4L 08/02/16 05:00: Vancomycin Level Trough 6.0 Current Medications Medications (Trade) Dose Ordered Sig/Josiah Route PRN Reason Start Time Stop Time Status Last Admin Dose Admin Acetaminophen 650 mg 650 mg Q4H PRN ORAL Mild Pain/Temp > 100.5 07/31/16 10:30 08/30/16 10:29 Albuterol/ Ipratropium (DuoNeb 0.5-3(2.5)mg/3ml) 3 ml Q4HRT HHN 07/31/16 15:00 08/05/16 14:59 08/02/16 07:56 Cefepime HCl/ Dextrose (Maxipime/D5W) 50 ml @ 100 mls/hr DAILY IVPB 08/01/16 14:00 08/08/16 13:59 08/02/16 08:30 Digoxin (Lanoxin) 0.25 mg DAILY GT 07/31/16 12:30 08/30/16 12:29 08/02/16 08:32 Heparin Sodium (Porcine) 5000 units 5,000 units EVERY 12 HOURS SUBQ 08/01/16 21:00 08/31/16 20:59 08/01/16 21:12 Lorazepam (Ativan 2mg/ml 1ml) 1 mg Q3H PRN IV For Anxiety 07/31/16 10:30 08/07/16 10:29 08/01/16 18:37 Metronidazole (Flagyl) 500 mg EVERY 8 HOURS ORAL 08/01/16 14:00 08/08/16 13:59 08/02/16 06:36 Ondansetron HCl (Zofran) 4 mg Q6H PRN IVP Nausea & Vomiting 07/31/16 12:30 08/30/16 12:29 Sodium Chloride (Sodium Chloride 1000ml bag) 1,000 ml @ 100 mls/hr Q10H IV 07/31/16 10:30 08/30/16 10:29 08/02/16 03:02 Tramadol HCl 25 mg 25 mg Q6H PRN GT Moderate Pain (Pain Scale 4-6) 07/31/16 12:30 08/07/16 12:29 Vancomycin HCl (Vanco rx to dose) 1 ea DAILY PRN MISC Per rx protocol 07/31/16 09:45 08/30/16 09:44 Vancomycin HCl/ Sodium Chloride (Vancomycin/ Sodium Chloride) 275 ml @ 183.708 mls/hr Q24H IVPB 08/02/16 21:00 08/07/16 20:59 MARCY MAJOR Aug 02, 2016 09:54
[2016-08-02 10:46] LABS: BASOPHILS % (AUTO) 0.7 % (0.0-2.0); EOSINOPHILS % (AUTO) 1.3 % (0.0-3.0); LYMPHOCYTES % (AUTO) 14.8 % (20.0-45.0); MEAN CORPUSCULAR HEMOGLOBIN 29.7 PG (27.0-31.0); MEAN CORPUSCULAR HGB CONC 31.9 G/DL (32.0-36.0); MEAN CORPUSCULAR VOLUME 93 FL (80-99); MEAN PLATELET VOLUME 6.3 FL (6.5-10.1); MONOCYTES % (AUTO) 13.2 % (1.0-10.0); PLATELET COUNT 221 K/UL (150-450); RED BLOOD COUNT 2.93 M/UL (4.20-5.40); RED CELL DISTRIBUTION WIDTH 13.9 % (11.6-14.8); WHITE BLOOD COUNT 8.8 K/UL (4.8-10.8)
[2016-08-02 12:00] VITALS: BP 139/74
--- NOTE | 2016-08-02 14:34 | Infectious Diseases Prog Note ---
Assessment/Plan Assessment/Plan A: Pneumonia VDRF Tongue SCC Anemia PAF P; continue Zosyn & Vancomycin May discontinue Flagyl will f/u cultures Subjective ROS Limited/Unobtainable: Yes Respiratory: Reports: productive cough Allergies: Coded Allergies: PENICILLINS (Verified Allergy, Unknown, 07/31/16) Objective Vital Signs Last 24 Hour Vital Signs Date Time Temp Pulse Resp B/P Pulse Ox O2 Delivery O2 Flow Rate FiO2 08/02/16 13:11 83 17 30 08/02/16 12:00 98.1 114 14 139/74 100 Mechanical Ventilator 30 08/02/16 11:24 83 14 100 Mechanical Ventilator 30 08/02/16 11:15 30 08/02/16 11:15 80 14 100 Mechanical Ventilator 30 08/02/16 11:12 80 14 30 08/02/16 09:26 83 14 30 08/02/16 08:32 100 08/02/16 08:00 101 08/02/16 08:00 97.9 88 14 124/64 100 Mechanical Ventilator 30 08/02/16 08:00 40 08/02/16 07:24 83 14 30 08/02/16 04:30 82 14 30 08/02/16 04:00 40 08/02/16 04:00 97.5 101 20 99/41 98 Mechanical Ventilator 08/02/16 03:48 101 08/02/16 03:38 82 14 100 Mechanical Ventilator 30 08/02/16 03:25 30 08/02/16 03:24 84 17 30 08/02/16 03:24 84 17 100 Mechanical Ventilator 30 08/02/16 01:01 86 14 30 08/02/16 00:19 106 08/02/16 00:00 40 08/02/16 00:00 98.2 105 20 106/40 100 Mechanical Ventilator 08/01/16 23:21 86 14 100 Mechanical Ventilator 30 08/01/16 23:09 30 08/01/16 23:08 81 14 30 08/01/16 23:07 81 14 100 Mechanical Ventilator 30 08/01/16 20:43 85 14 30 08/01/16 20:00 97.0 95 19 96/50 100 Mechanical Ventilator 30 08/01/16 20:00 40 08/01/16 19:42 30 08/01/16 19:30 81 14 100 Mechanical Ventilator 30 08/01/16 19:28 98 08/01/16 19:25 87 14 35 08/01/16 19:15 87 14 100 Mechanical Ventilator 30 08/01/16 19:15 30 08/01/16 16:53 79 14 35 08/01/16 16:00 40 08/01/16 16:00 96.8 101 15 112/50 99 Mechanical Ventilator 40 08/01/16 15:18 81 08/01/16 15:10 77 14 40 08/01/16 15:10 77 14 100 Mechanical Ventilator 40 08/01/16 15:00 40 08/01/16 15:00 74 14 100 Mechanical Ventilator 40 Height (Feet): 5 Height (Inches): 2.00 Weight (Pounds): 120 HEENT: status post trach Respiratory/Chest: decreased breath sounds, other - on ventilator, secretions around tracheostomy Abdomen: soft, non tender, other - GT feeding Extremities: no edema Neurologic/Psychiatric: alert, responsive Microbiology Date/Time Source Procedure Growth Status 07/31/16 05:00 Blood Blood Culture - Preliminary NO GROWTH AFTER 24 HOURS Resulted 07/31/16 05:00 Blood Blood Culture - Preliminary NO GROWTH AFTER 24 HOURS Resulted 08/01/16 21:00 Sputum Gram Stain - Final Resulted 08/01/16 21:00 Sputum Sputum Culture Pending Resulted 07/31/16 21:00 Sputum Gram Stain - Final Resulted 07/31/16 21:00 Sputum Culture - Preliminary Gram Negative Bacillus 1 Resulted 08/01/16 12:00 Stool Clostridium difficile Toxin Assay - Final Complete 07/31/16 05:30 Rectum VRE Culture - Final NO VANCOMYCIN RESISTANT ENTEROCOCCUS ... Complete Laboratory Tests Test 08/01/16 14:45 08/02/16 05:00 08/02/16 10:15 Amikacin Level Peak 3.4 ug/mL (20.0-35.0) L Vancomycin Level Trough 6.0 ug/mL (5.0-12.0) White Blood Count 8.8 K/UL (4.8-10.8) Red Blood Count 2.93 M/UL (4.20-5.40) L Hemoglobin 8.7 G/DL (12.0-16.0) L Hematocrit 27.3 % (37.0-47.0) L Mean Corpuscular Volume 93 FL (80-99) Mean Corpuscular Hemoglobin 29.7 PG (27.0-31.0) Mean Corpuscular Hemoglobin Concent 31.9 G/DL (32.0-36.0) L Red Cell Distribution Width 13.9 % (11.6-14.8) Platelet Count 221 K/UL (150-450) Mean Platelet Volume 6.3 FL (6.5-10.1) L Neutrophils (%) (Auto) 70.0 % (45.0-75.0) Lymphocytes (%) (Auto) 14.8 % (20.0-45.0) L Monocytes (%) (Auto) 13.2 % (1.0-10.0) H Eosinophils (%) (Auto) 1.3 % (0.0-3.0) Basophils (%) (Auto) 0.7 % (0.0-2.0) Current Medications Medications (Trade) Dose Ordered Sig/Josiah Route PRN Reason Start Time Stop Time Status Last Admin Dose Admin Acetaminophen 650 mg 650 mg Q4H PRN ORAL Mild Pain/Temp > 100.5 07/31/16 10:30 08/30/16 10:29 Albuterol/ Ipratropium (DuoNeb 0.5-3(2.5)mg/3ml) 3 ml Q4HRT HHN 07/31/16 15:00 08/05/16 14:59 08/02/16 11:18 Cefepime HCl/ Dextrose (Maxipime/D5W) 50 ml @ 100 mls/hr DAILY IVPB 08/01/16 14:00 08/08/16 13:59 08/02/16 08:30 Digoxin (Lanoxin) 0.25 mg DAILY GT 07/31/16 12:30 08/30/16 12:29 08/02/16 08:32 Heparin Sodium (Porcine) 5000 units 5,000 units EVERY 12 HOURS SUBQ 08/01/16 21:00 08/31/16 20:59 08/02/16 09:00 Lorazepam (Ativan 2mg/ml 1ml) 1 mg Q3H PRN IV For Anxiety 07/31/16 10:30 08/07/16 10:29 08/01/16 18:37 Metronidazole (Flagyl) 500 mg EVERY 8 HOURS ORAL 08/01/16 14:00 08/08/16 13:59 08/02/16 14:22 Ondansetron HCl (Zofran) 4 mg Q6H PRN IVP Nausea & Vomiting 07/31/16 12:30 08/30/16 12:29 Sodium Chloride (Sodium Chloride 1000ml bag) 1,000 ml @ 100 mls/hr Q10H IV 07/31/16 10:30 08/30/16 10:29 08/02/16 12:30 Tramadol HCl 25 mg 25 mg Q6H PRN GT Moderate Pain (Pain Scale 4-6) 07/31/16 12:30 08/07/16 12:29 Vancomycin HCl (Vanco rx to dose) 1 ea DAILY PRN MISC Per rx protocol 07/31/16 09:45 08/30/16 09:44 Vancomycin HCl/ Sodium Chloride (Vancomycin/ Sodium Chloride) 275 ml @ 183.708 mls/hr Q24H IVPB 08/02/16 21:00 08/07/16 20:59 JENNIFER MCKEE Aug 02, 2016 14:34
[2016-08-02 16:00] VITALS: BP 106/47
[2016-08-02] MEDS: LORazepam Inj 2mg/ml 1ml IV PRN (16:47)
[2016-08-02 19:00] VITALS: BP 105/51
[2016-08-02] MEDS ORDERED: Vancomycin 1 GM in NS 275 ML IVPB SCH (21:00)
[2016-08-03] VITALS: BP 106/52
[2016-08-03] MEDS: DuoNeb 0.5-3(2.5)mg/3ml neb HHN SCH ×6 (02:44→23:13)
[2016-08-03 04:00] VITALS: BP 111/58
[2016-08-03 08:00] VITALS: BP 116/50
[2016-08-03] MEDS: Digoxin Elixir 0.125mg GT SCH (09:00)
--- NOTE | 2016-08-03 09:06 | Infectious Diseases Prog Note ---
Assessment/Plan Assessment/Plan A: Pneumonia VDRF Tongue SCC Anemia PAF P; continue Zosyn , discontinue Vancomycin repeat CXR will f/u cultures Subjective ROS Limited/Unobtainable: Yes Respiratory: Reports: shortness of breath Allergies: Coded Allergies: PENICILLINS (Verified Allergy, Unknown, 07/31/16) Objective Vital Signs Last 24 Hour Vital Signs Date Time Temp Pulse Resp B/P Pulse Ox O2 Delivery O2 Flow Rate FiO2 08/03/16 07:23 101 21 100 Mechanical Ventilator 30 08/03/16 07:07 95 18 100 Mechanical Ventilator 30 08/03/16 07:07 30 08/03/16 07:07 95 18 30 08/03/16 05:27 102 14 30 08/03/16 04:03 30 08/03/16 04:00 97.7 88 14 111/58 100 Mechanical Ventilator 30 08/03/16 04:00 110 08/03/16 02:57 80 14 100 Mechanical Ventilator 30 08/03/16 02:43 84 14 100 Mechanical Ventilator 30 08/03/16 02:43 30 08/03/16 02:42 84 14 30 08/03/16 00:54 87 14 30 08/03/16 00:01 100 08/03/16 00:00 97.2 86 14 106/52 99 Mechanical Ventilator 30 08/03/16 00:00 30 08/02/16 23:17 82 16 100 Mechanical Ventilator 30 08/02/16 23:09 30 08/02/16 23:09 84 14 99 Mechanical Ventilator 30 08/02/16 23:07 84 14 30 08/02/16 21:13 72 15 30 08/02/16 20:00 30 08/02/16 20:00 106 08/02/16 19:42 72 17 99 Mechanical Ventilator 30 08/02/16 19:30 30 08/02/16 19:29 69 17 30 08/02/16 19:29 73 19 99 Mechanical Ventilator 30 08/02/16 19:00 97.3 93 20 105/51 100 Mechanical Ventilator 30 08/02/16 16:55 87 14 30 08/02/16 16:42 103 08/02/16 16:00 30 08/02/16 16:00 97.3 87 20 106/47 100 Mechanical Ventilator 30 08/02/16 15:30 81 14 100 Mechanical Ventilator 30 08/02/16 15:25 84 14 100 Mechanical Ventilator 30 08/02/16 15:25 30 08/02/16 14:32 86 14 30 08/02/16 13:11 83 17 30 08/02/16 12:00 40 08/02/16 12:00 98.1 114 14 139/74 100 Mechanical Ventilator 30 08/02/16 12:00 98 08/02/16 11:24 83 14 100 Mechanical Ventilator 30 08/02/16 11:15 30 08/02/16 11:15 80 14 100 Mechanical Ventilator 30 08/02/16 11:12 80 14 30 08/02/16 09:26 83 14 30 Height (Feet): 5 Height (Inches): 2.00 Weight (Pounds): 120 HEENT: status post trach Respiratory/Chest: expiratory wheezing, other - on ventilator Cardiovascular: tachycardia Abdomen: soft, non tender, other - GT feeding Extremities: no edema Neurologic/Psychiatric: alert, responsive Lymphatic: other - neck adneopathy, mass bilateral Microbiology Date/Time Source Procedure Growth Status 08/01/16 21:00 Sputum Gram Stain - Final Resulted 08/01/16 21:00 Sputum Sputum Culture Pending Resulted 07/31/16 21:00 Sputum Gram Stain - Final Resulted 07/31/16 21:00 Sputum Culture - Preliminary Gram Negative Bacillus 1 Resulted 08/01/16 12:00 Stool Clostridium difficile Toxin Assay - Final Complete Laboratory Tests Test 08/02/16 10:15 White Blood Count 8.8 K/UL (4.8-10.8) Red Blood Count 2.93 M/UL (4.20-5.40) L Hemoglobin 8.7 G/DL (12.0-16.0) L Hematocrit 27.3 % (37.0-47.0) L Mean Corpuscular Volume 93 FL (80-99) Mean Corpuscular Hemoglobin 29.7 PG (27.0-31.0) Mean Corpuscular Hemoglobin Concent 31.9 G/DL (32.0-36.0) L Red Cell Distribution Width 13.9 % (11.6-14.8) Platelet Count 221 K/UL (150-450) Mean Platelet Volume 6.3 FL (6.5-10.1) L Neutrophils (%) (Auto) 70.0 % (45.0-75.0) Lymphocytes (%) (Auto) 14.8 % (20.0-45.0) L Monocytes (%) (Auto) 13.2 % (1.0-10.0) H Eosinophils (%) (Auto) 1.3 % (0.0-3.0) Basophils (%) (Auto) 0.7 % (0.0-2.0) Current Medications Medications (Trade) Dose Ordered Sig/Josiah Route PRN Reason Start Time Stop Time Status Last Admin Dose Admin Acetaminophen 650 mg 650 mg Q4H PRN ORAL Mild Pain/Temp > 100.5 07/31/16 10:30 08/30/16 10:29 Albuterol/ Ipratropium (DuoNeb 0.5-3(2.5)mg/3ml) 3 ml Q4HRT HHN 07/31/16 15:00 08/05/16 14:59 08/03/16 07:07 Cefepime HCl/ Dextrose (Maxipime/D5W) 50 ml @ 100 mls/hr DAILY IVPB 08/01/16 14:00 08/08/16 13:59 08/02/16 08:30 Digoxin (Lanoxin) 0.25 mg DAILY GT 07/31/16 12:30 08/30/16 12:29 08/02/16 08:32 Heparin Sodium (Porcine) 5000 units 5,000 units EVERY 12 HOURS SUBQ 08/01/16 21:00 08/31/16 20:59 08/02/16 21:03 Lorazepam (Ativan 2mg/ml 1ml) 1 mg Q3H PRN IV For Anxiety 07/31/16 10:30 08/07/16 10:29 08/02/16 16:47 Ondansetron HCl (Zofran) 4 mg Q6H PRN IVP Nausea & Vomiting 07/31/16 12:30 08/30/16 12:29 Sodium Chloride (Sodium Chloride 1000ml bag) 1,000 ml @ 100 mls/hr Q10H IV 07/31/16 10:30 08/30/16 10:29 08/02/16 22:53 Tramadol HCl 25 mg 25 mg Q6H PRN GT Moderate Pain (Pain Scale 4-6) 07/31/16 12:30 08/07/16 12:29 Vancomycin HCl (Vanco rx to dose) 1 ea DAILY PRN MISC Per rx protocol 07/31/16 09:45 08/30/16 09:44 Vancomycin HCl/ Sodium Chloride (Vancomycin/ Sodium Chloride) 275 ml @ 183.708 mls/hr Q24H IVPB 08/02/16 21:00 08/07/16 20:59 08/02/16 21:01 JENNIFER MCKEE 2, 2017 09:06
[2016-08-03] MEDS: Heparin 5000 units/ml inj SUBQ SCH ×2 (10:28→22:06)
[2016-08-03] MEDS: LORazepam Inj 2mg/ml 1ml IV PRN ×3 (10:38→18:59)
[2016-08-03 12:00] VITALS: BP 116/67
--- NOTE | 2016-08-03 13:01 | Diagnostic Imaging Report ---
Indication: Dyspnea Comparison: 07/31/16 A single view chest radiograph was obtained. Findings: Tracheostomy noted. Bones are osteopenic. There is elevation of the left hemidiaphragm. Impression: Elevation of the left hemidiaphragm. Mild basilar atelectasis.
--- NOTE | 2016-08-03 14:23 | General Progress Note ---
Assessment/Plan Problem List: (1) Respiratory distress ICD Codes: R06.00 - Dyspnea, unspecified SNOMED: 334030564 (2) Pneumonia ICD Codes: J18.9 - Pneumonia, unspecified organism SNOMED: 011292951 (3) SCC (squamous cell carcinoma) ICD Codes: C44.92 - Squamous cell carcinoma of skin, unspecified SNOMED: 846426583 (4) Tracheostomy in place ICD Codes: Z93.0 - Tracheostomy status SNOMED: 831213917 Status: stable, progressing Assessment/Plan iv abx follow up cultures resp care suctioning wean as able feeds monitor h/h/labs transfuse prn full code per son Subjective ROS Limited/Unobtainable: No Constitutional: Reports: malaise, weakness HEENT: Reports: no symptoms Cardiovascular: Reports: no symptoms Respiratory: Reports: shortness of breath, sputum Gastrointestinal/Abdominal: Reports: difficulty swallowing Genitourinary: Reports: no symptoms Neurologic/Psychiatric: Reports: pre-existing deficit Endocrine: Reports: no symptoms Hematologic/Lymphatic: Reports: anemia Allergies: Coded Allergies: PENICILLINS (Verified Allergy, Unknown, 07/31/16) All Systems: reviewed and negative except above Subjective on the vent. less congested. on iv abx. wbc improved. h/h noted. cultures noted. no labs today. anxious. cxr noted,. Objective Last 24 Hour Vital Signs Date Time Temp Pulse Resp B/P Pulse Ox O2 Delivery O2 Flow Rate FiO2 08/03/16 13:18 116 16 30 08/03/16 12:00 30 08/03/16 12:00 124 08/03/16 11:43 92 16 100 Mechanical Ventilator 30 08/03/16 11:30 89 14 30 08/03/16 11:30 30 08/03/16 11:30 89 14 100 Mechanical Ventilator 30 08/03/16 09:08 84 14 30 08/03/16 09:00 90 08/03/16 08:00 96.1 90 14 116/50 100 Mechanical Ventilator 30 08/03/16 08:00 90 08/03/16 08:00 30 08/03/16 07:23 101 21 100 Mechanical Ventilator 30 08/03/16 07:07 95 18 100 Mechanical Ventilator 30 08/03/16 07:07 30 08/03/16 07:07 95 18 30 08/03/16 05:27 102 14 30 3/2/17 04:03 30 08/03/16 04:00 97.7 88 14 111/58 100 Mechanical Ventilator 30 08/03/16 04:00 110 08/03/16 02:57 80 14 100 Mechanical Ventilator 30 08/03/16 02:43 84 14 100 Mechanical Ventilator 30 08/03/16 02:43 30 08/03/16 02:42 84 14 30 08/03/16 00:54 87 14 30 08/03/16 00:01 100 08/03/16 00:00 97.2 86 14 106/52 99 Mechanical Ventilator 30 08/03/16 00:00 30 08/02/16 23:17 82 16 100 Mechanical Ventilator 30 08/02/16 23:09 30 08/02/16 23:09 84 14 99 Mechanical Ventilator 30 08/02/16 23:07 84 14 30 08/02/16 21:13 72 15 30 08/02/16 20:00 30 08/02/16 20:00 106 08/02/16 19:42 72 17 99 Mechanical Ventilator 30 08/02/16 19:30 30 08/02/16 19:29 69 17 30 08/02/16 19:29 73 19 99 Mechanical Ventilator 30 08/02/16 19:00 97.3 93 20 105/51 100 Mechanical Ventilator 30 08/02/16 16:55 87 14 30 08/02/16 16:42 103 08/02/16 16:00 30 08/02/16 16:00 97.3 87 20 106/47 100 Mechanical Ventilator 30 08/02/16 15:30 81 14 100 Mechanical Ventilator 30 08/02/16 15:25 84 14 100 Mechanical Ventilator 30 08/02/16 15:25 30 08/02/16 14:32 86 14 30 Intake and Output 08/02/16 08/03/16 19:00 07:00 Intake Total 1840 ml 1675.000 ml Output Total 600 ml 600 ml Balance 1240 ml 1075.000 ml Free Water 100 ml 100 ml IV Total 1300 ml 1175.000 ml Tube Feeding 440 ml 400 ml Output Urine Total 600 ml 600 ml # Bowel Movements 1 2 Height (Feet): 5 Height (Inches): 2.00 Weight (Pounds): 120 Objective General Appearance: WD/WN, lethargic, mild distress Neck: supple Cardiovascular: regular rhythm Respiratory/Chest: rhonchi - bilaterally Abdomen: normal bowel sounds, non tender, soft, no organomegaly, no mass Edema: no edema noted Arm (L), no edema noted Arm (R), no edema noted Leg (L), no edema noted Leg (R), no edema noted Pedal (L), no edema noted Pedal (R), no edema noted Generalized Neurologic: disoriented, aphasia CHRISTINA HAMMOND Aug 03, 2016 14:23
[2016-08-03 16:00] VITALS: BP 100/52
--- NOTE | 2016-08-03 19:34 | Pulmonology Progress Note ---
Assessment/Plan Assessment/Plan IMPRESSION: 1. History of tongue cancer. 2. Evidence of bilateral pleural effusion. 3. Respiratory failure. 4. Acute respiratory acidosis. 5. Hypoxemia. 6. Evidence of transient hypotension. 7. Leukocytosis. 8. Possible sepsis. 9. Significant lactic acidemia 10. Elevated liver enzymes. 11. Elevated natriuretic peptide. 12. Evidence of anemia. 13. Failure to thrive. 14. Atrial fibrillation, paroxysmal. PLAN IV antibiotics respiratory care as is oxygen therapy suction follow up cultures and taper antibiotics per ID ID follow up and clearance monitor hemodynamics monitor trach and airway and secretions stabilize and transfer back to subacute impression, plan, and exam edited and reviewed in detail care discussed with RN Subjective ROS Limited/Unobtainable: Yes Allergies: Coded Allergies: PENICILLINS (Verified Allergy, Unknown, 07/31/16) Subjective care noted and reviewed d/w nursing and changes all reviewed and discussed Objective Last 24 Hour Vital Signs Date Time Temp Pulse Resp B/P Pulse Ox O2 Delivery O2 Flow Rate FiO2 08/03/16 18:58 95 14 100 Mechanical Ventilator 30 08/03/16 18:50 30 08/03/16 18:50 104 19 100 Mechanical Ventilator 30 08/03/16 18:49 104 19 30 08/03/16 16:58 89 14 30 08/03/16 16:00 114 08/03/16 16:00 97.8 101 15 100/52 97 Mechanical Ventilator 30 08/03/16 16:00 30 08/03/16 15:05 100 15 100 Mechanical Ventilator 30 08/03/16 14:51 30 08/03/16 14:51 98 14 30 08/03/16 14:51 98 14 98 Mechanical Ventilator 30 08/03/16 13:18 116 16 30 08/03/16 12:00 97.7 70 16 116/67 100 Mechanical Ventilator 30 08/03/16 12:00 30 08/03/16 12:00 124 08/03/16 11:43 92 16 100 Mechanical Ventilator 30 08/03/16 11:30 89 14 30 08/03/16 11:30 30 08/03/16 11:30 89 14 100 Mechanical Ventilator 30 08/03/16 09:08 84 14 30 08/03/16 09:00 90 08/03/16 08:00 96.1 90 14 116/50 100 Mechanical Ventilator 30 08/03/16 08:00 90 08/03/16 08:00 30 08/03/16 07:23 101 21 100 Mechanical Ventilator 30 08/03/16 07:07 95 18 100 Mechanical Ventilator 30 08/03/16 07:07 30 08/03/16 07:07 95 18 30 08/03/16 05:27 102 14 30 08/03/16 04:03 30 08/03/16 04:00 97.7 88 14 111/58 100 Mechanical Ventilator 30 08/03/16 04:00 110 08/03/16 02:57 80 14 100 Mechanical Ventilator 30 08/03/16 02:43 84 14 100 Mechanical Ventilator 30 08/03/16 02:43 30 08/03/16 02:42 84 14 30 08/03/16 00:54 87 14 30 08/03/16 00:01 100 08/03/16 00:00 97.2 86 14 106/52 99 Mechanical Ventilator 30 08/03/16 00:00 30 08/02/16 23:17 82 16 100 Mechanical Ventilator 30 08/02/16 23:09 30 08/02/16 23:09 84 14 99 Mechanical Ventilator 30 08/02/16 23:07 84 14 30 08/02/16 21:13 72 15 30 08/02/16 20:00 30 08/02/16 20:00 106 08/02/16 19:42 72 17 99 Mechanical Ventilator 30 Intake and Output 08/02/16 08/03/16 19:00 07:00 Intake Total 1840 ml 1915.000 ml Output Total 600 ml 600 ml Balance 1240 ml 1315.000 ml Free Water 100 ml 200 ml IV Total 1300 ml 1275.000 ml Tube Feeding 440 ml 440 ml Output Urine Total 600 ml 600 ml # Bowel Movements 1 2 Objective GENERAL: A well-developed female, chronically ill. HEENT: Negative. Pupils are sluggish, but reactive. NECK: Supple. Some deformity noted. The patient has a tracheostomy in the midline. Carotids are 2+. LUNGS: Coarse breath sounds. Moderate air entry. without change CARDIAC: Normal S1 and S2. Regular rhythm without murmurs, rubs, or gallops. ABDOMEN: Soft, nontender, and nondistended. No hepatosplenomegaly. EXTREMITIES: No cyanosis or clubbing. There is trace edema. Degenerative joint disease. NEUROLOGICAL: Reduced LOC. Microbiology Date/Time Source Procedure Growth Status 08/01/16 21:00 Sputum Gram Stain - Final Resulted 08/01/16 21:00 Sputum Culture - Preliminary Gram Negative Bacillus 1 Resulted 07/31/16 21:00 Sputum Gram Stain - Final Resulted 07/31/16 21:00 Sputum Culture - Preliminary Gram Negative Bacillus 1 Resulted 08/01/16 12:00 Stool Clostridium difficile Toxin Assay - Final Complete 08/01/16 21:00 Urine,Clean Catch Urine Culture - Preliminary NO GROWTH AFTER 24 HOURS Resulted Current Medications Medications (Trade) Dose Ordered Sig/Josiah Route PRN Reason Start Time Stop Time Status Last Admin Dose Admin Acetaminophen 650 mg 650 mg Q4H PRN ORAL Mild Pain/Temp > 100.5 07/31/16 10:30 08/30/16 10:29 Albuterol/ Ipratropium (DuoNeb 0.5-3(2.5)mg/3ml) 3 ml Q4HRT HHN 07/31/16 15:00 08/05/16 14:59 08/03/16 18:50 Cefepime HCl/ Dextrose (Maxipime/D5W) 50 ml @ 100 mls/hr DAILY IVPB 08/01/16 14:00 08/08/16 13:59 08/03/16 11:35 Digoxin (Lanoxin) 0.25 mg DAILY GT 07/31/16 12:30 08/30/16 12:29 08/03/16 09:00 Heparin Sodium (Porcine) (Heparin 5000 units/ml) 5,000 units EVERY 12 HOURS SUBQ 08/01/16 21:00 08/31/16 20:59 08/03/16 10:28 Lorazepam (Ativan 2mg/ml 1ml) 1 mg Q3H PRN IV For Anxiety 07/31/16 10:30 08/07/16 10:29 08/03/16 18:59 Ondansetron HCl (Zofran) 4 mg Q6H PRN IVP Nausea & Vomiting 07/31/16 12:30 08/30/16 12:29 Sodium Chloride (Sodium Chloride 1000ml bag) 1,000 ml @ 100 mls/hr Q10H IV 07/31/16 10:30 08/30/16 10:29 08/03/16 18:07 Tramadol HCl 25 mg 25 mg Q6H PRN GT Moderate Pain (Pain Scale 4-6) 07/31/16 12:30 08/07/16 12:29 MARCY MAJOR Aug 03, 2016 19:34
[2016-08-03 20:00] VITALS: BP 110/50
[2016-08-04] VITALS (7 sets, daily range): BP systolic 102–133; BP diastolic 44–66
[2016-08-04] MEDS: LORazepam Inj 2mg/ml 1ml IV PRN ×5 (00:05→23:15)
[2016-08-04] MEDS: DuoNeb 0.5-3(2.5)mg/3ml neb HHN SCH ×6 (02:56→23:21)
[2016-08-04 06:18] LABS: MEAN CORPUSCULAR HEMOGLOBIN 29.6 PG (27.0-31.0); MEAN CORPUSCULAR HGB CONC 31.8 G/DL (32.0-36.0); MEAN CORPUSCULAR VOLUME 93 FL (80-99); MEAN PLATELET VOLUME 6.2 FL (6.5-10.1); PLATELET COUNT 204 K/UL (150-450); RED BLOOD COUNT 2.66 M/UL (4.20-5.40); RED CELL DISTRIBUTION WIDTH 14.1 % (11.6-14.8); WHITE BLOOD COUNT 7.6 K/UL (4.8-10.8)
[2016-08-04 08:18] LABS: BAND NEUTROPHILS % (MANUAL) 3 % (0-8); BASOPHILS % (MANUAL) 0 % (0-2); EOSINOPHILS % (MANUAL) 4 % (0-3); HYPOCHROMASIA 1+; LYMPHOCYTES % (MANUAL) 18 % (20-45); NEUTROPHILS % (MANUAL) 71 % (45-75); PLATELET ESTIMATE ADEQUATE; PLATELET MORPHOLOGY NORMAL; TOTAL CELLS COUNTED 100
--- NOTE | 2016-08-04 08:51 | General Progress Note ---
Assessment/Plan Problem List: (1) Respiratory distress ICD Codes: R06.00 - Dyspnea, unspecified SNOMED: 424952012 (2) Pneumonia ICD Codes: J18.9 - Pneumonia, unspecified organism SNOMED: 645550681 (3) SCC (squamous cell carcinoma) ICD Codes: C44.92 - Squamous cell carcinoma of skin, unspecified SNOMED: 231771590 (4) Tracheostomy in place ICD Codes: Z93.0 - Tracheostomy status SNOMED: 747229434 Status: stable Assessment/Plan iv abx per id follow up cultures resp care suctioning wean as able feeds monitor h/h/labs- may need to transfuse tomorrow transfuse prn full code per son Subjective ROS Limited/Unobtainable: No Constitutional: Reports: malaise, weakness HEENT: Reports: no symptoms Cardiovascular: Reports: no symptoms Respiratory: Reports: cough, shortness of breath, sputum Gastrointestinal/Abdominal: Reports: no symptoms Genitourinary: Reports: no symptoms Neurologic/Psychiatric: Reports: pre-existing deficit Endocrine: Reports: no symptoms Hematologic/Lymphatic: Reports: no symptoms Allergies: Coded Allergies: PENICILLINS (Verified Allergy, Unknown, 07/31/16) All Systems: reviewed and negative except above Subjective on the vent. less congested. on iv abx. h/h lower. cultures noted. no labs today. anxious. cxr noted. Objective Last 24 Hour Vital Signs Date Time Temp Pulse Resp B/P Pulse Ox O2 Delivery O2 Flow Rate FiO2 08/04/16 08:42 84 14 30 08/04/16 06:45 80 14 30 08/04/16 06:44 80 14 99 Mechanical Ventilator 30 08/04/16 06:32 30 08/04/16 06:32 79 14 99 Mechanical Ventilator 30 08/04/16 05:06 91 14 30 08/04/16 04:00 97.4 82 14 103/46 99 Mechanical Ventilator 30.0 08/04/16 04:00 88 08/04/16 04:00 30 08/04/16 03:04 91 15 99 Mechanical Ventilator 30 08/04/16 02:56 89 14 99 Mechanical Ventilator 30 08/04/16 02:56 30 08/04/16 02:55 89 14 30 08/04/16 01:07 87 14 30 08/04/16 00:00 97.7 93 17 102/44 95 Mechanical Ventilator 30 08/04/16 00:00 30 08/04/16 00:00 92 08/03/16 23:23 89 14 99 Mechanical Ventilator 30 08/03/16 23:14 30 08/03/16 23:14 93 14 99 Mechanical Ventilator 30 08/03/16 23:12 93 14 30 08/03/16 21:10 108 16 30 08/03/16 20:00 97.4 100 17 110/50 99 Mechanical Ventilator 30 08/03/16 20:00 10.0 30 08/03/16 19:42 104 08/03/16 18:58 95 14 100 Mechanical Ventilator 30 08/03/16 18:50 30 08/03/16 18:50 104 19 100 Mechanical Ventilator 30 08/03/16 18:49 104 19 30 08/03/16 16:58 89 14 30 08/03/16 16:00 114 08/03/16 16:00 97.8 101 15 100/52 97 Mechanical Ventilator 30 08/03/16 16:00 30 08/03/16 15:05 100 15 100 Mechanical Ventilator 30 08/03/16 14:51 30 08/03/16 14:51 98 14 30 08/03/16 14:51 98 14 98 Mechanical Ventilator 30 08/03/16 13:18 116 16 30 08/03/16 12:00 97.7 70 16 116/67 100 Mechanical Ventilator 08/03/16 12:00 30 08/03/16 12:00 124 08/03/16 11:43 92 16 100 Mechanical Ventilator 08/03/16 11:30 89 14 30 08/03/16 11:30 30 08/03/16 11:30 89 14 100 Mechanical Ventilator 30 08/03/16 09:08 84 14 30 08/03/16 09:00 90 Intake and Output 08/03/16 08/04/16 19:00 07:00 Intake Total 1295 ml 1385 ml Output Total 275 ml Balance 1295 ml 1110 ml Free Water 155 ml 50 ml IV Total 700 ml 895 ml Tube Feeding 440 ml 440 ml Output Urine Total 275 ml # Bowel Movements 2 Laboratory Tests 08/04/16 04:00: White Blood Count 7.6, Red Blood Count 2.66L, Hemoglobin 7.9L, Hematocrit 24.8L , Mean Corpuscular Volume 93, Mean Corpuscular Hemoglobin 29.6, Mean Corpuscular Hemoglobin Concent 31.8L, Red Cell Distribution Width 14.1, Platelet Count 204, Mean Platelet Volume 6.2L, Neutrophils (%) (Auto) , Lymphocytes (%) (Auto) , Monocytes (%) (Auto) , Eosinophils (%) (Auto) , Basophils (%) (Auto) , Differential Total Cells Counted 100, Neutrophils % ( Manual) 71, Lymphocytes % (Manual) 18L, Monocytes % (Manual) 4, Eosinophils % ( Manual) 4H, Basophils % (Manual) 0, Band Neutrophils 3, Platelet Estimate Adequate, Platelet Morphology Normal, Hypochromasia 1+ Height (Feet): 5 Height (Inches): 2.00 Weight (Pounds): 120 Objective General Appearance: WD/WN, lethargic, mild distress Neck: supple Cardiovascular: regular rhythm Respiratory/Chest: rhonchi - bilaterally Abdomen: normal bowel sounds, non tender, soft, no organomegaly, no mass Edema: no edema noted Arm (L), no edema noted Arm (R), no edema noted Leg (L), no edema noted Leg (R), no edema noted Pedal (L), no edema noted Pedal (R), no edema noted Generalized Neurologic: disoriented, aphasia CHRISTINA HAMMOND Aug 04, 2016 08:51
--- NOTE | 2016-08-04 08:52 | Pulmonology Progress Note ---
Assessment/Plan Assessment/Plan IMPRESSION: 1. History of tongue cancer. 2. Evidence of bilateral pleural effusion. 3. Respiratory failure. 4. Acute respiratory acidosis. 5. Hypoxemia. 6. Evidence of transient hypotension. 7. Leukocytosis. 8. Possible sepsis. 9. Significant lactic acidemia 10. Elevated liver enzymes. 11. Elevated natriuretic peptide. 12. Evidence of anemia. 13. Failure to thrive. 14. Atrial fibrillation, paroxysmal. PLAN IV antibiotics transfuse respiratory care as is oxygen therapy suction as needed follow up cultures and taper antibiotics per ID ID follow up and clearance monitor hemodynamics monitor trach and airway and secretions stabilize and transfer back to subacute in am impression, plan, and exam edited and reviewed in detail care discussed with RN Subjective ROS Limited/Unobtainable: Yes Allergies: Coded Allergies: PENICILLINS (Verified Allergy, Unknown, 07/31/16) Subjective care noted and reviewed d/w nursing and changes increasingly anemic Objective Last 24 Hour Vital Signs Date Time Temp Pulse Resp B/P Pulse Ox O2 Delivery O2 Flow Rate FiO2 08/04/16 08:42 84 14 30 08/04/16 06:45 80 14 30 08/04/16 06:44 80 14 99 Mechanical Ventilator 30 08/04/16 06:32 30 08/04/16 06:32 79 14 99 Mechanical Ventilator 30 08/04/16 05:06 91 14 30 08/04/16 04:00 97.4 82 14 103/46 99 Mechanical Ventilator 30.0 08/04/16 04:00 88 08/04/16 04:00 30 08/04/16 03:04 91 15 99 Mechanical Ventilator 30 08/04/16 02:56 89 14 99 Mechanical Ventilator 30 08/04/16 02:56 30 08/04/16 02:55 89 14 30 08/04/16 01:07 87 14 30 08/04/16 00:00 97.7 93 17 102/44 95 Mechanical Ventilator 30 08/04/16 00:00 30 08/04/16 00:00 92 08/03/16 23:23 89 14 99 Mechanical Ventilator 30 08/03/16 23:14 30 08/03/16 23:14 93 14 99 Mechanical Ventilator 30 08/03/16 23:12 93 14 30 08/03/16 21:10 108 16 30 08/03/16 20:00 97.4 100 17 110/50 99 Mechanical Ventilator 30 08/03/16 20:00 10.0 30 08/03/16 19:42 104 08/03/16 18:58 95 14 100 Mechanical Ventilator 30 08/03/16 18:50 30 08/03/16 18:50 104 19 100 Mechanical Ventilator 30 08/03/16 18:49 104 19 30 08/03/16 16:58 89 14 30 08/03/16 16:00 114 08/03/16 16:00 97.8 101 15 100/52 97 Mechanical Ventilator 30 08/03/16 16:00 30 08/03/16 15:05 100 15 100 Mechanical Ventilator 30 08/03/16 14:51 30 08/03/16 14:51 98 14 30 08/03/16 14:51 98 14 98 Mechanical Ventilator 30 08/03/16 13:18 116 16 30 08/03/16 12:00 97.7 70 16 116/67 100 Mechanical Ventilator 30 08/03/16 12:00 30 08/03/16 12:00 124 08/03/16 11:43 92 16 100 Mechanical Ventilator 30 08/03/16 11:30 89 14 30 08/03/16 11:30 30 08/03/16 11:30 89 14 100 Mechanical Ventilator 30 08/03/16 09:08 84 14 30 08/03/16 09:00 90 Intake and Output 08/03/16 08/04/16 19:00 07:00 Intake Total 1295 ml 1385 ml Output Total 275 ml Balance 1295 ml 1110 ml Free Water 155 ml 50 ml IV Total 700 ml 895 ml Tube Feeding 440 ml 440 ml Output Urine Total 275 ml # Bowel Movements 2 Objective GENERAL: A well-developed female, chronically ill. HEENT: Negative. Pupils are sluggish, but reactive. NECK: Supple. Some deformity noted. The patient has a tracheostomy in the midline. Carotids are 2+. LUNGS: Coarse breath sounds. Moderate air entry. without change CARDIAC: Normal S1 and S2. Regular rhythm without murmurs, rubs, or gallops. ABDOMEN: Soft, nontender, and nondistended. No hepatosplenomegaly. EXTREMITIES: No cyanosis or clubbing. There is trace edema. Degenerative joint disease. NEUROLOGICAL: Reduced LOC. reviewed and edited Microbiology Date/Time Source Procedure Growth Status 08/01/16 21:00 Sputum Gram Stain - Final Resulted 08/01/16 21:00 Sputum Culture - Preliminary Gram Negative Bacillus 1 Resulted 08/01/16 12:00 Stool Clostridium difficile Toxin Assay - Final Complete 08/01/16 21:00 Urine,Clean Catch Urine Culture - Final NO GROWTH AFTER 48 HOURS Complete Laboratory Tests 08/04/16 04:00: White Blood Count 7.6, Red Blood Count 2.66L, Hemoglobin 7.9L, Hematocrit 24.8L , Mean Corpuscular Volume 93, Mean Corpuscular Hemoglobin 29.6, Mean Corpuscular Hemoglobin Concent 31.8L, Red Cell Distribution Width 14.1, Platelet Count 204, Mean Platelet Volume 6.2L, Neutrophils (%) (Auto) , Lymphocytes (%) (Auto) , Monocytes (%) (Auto) , Eosinophils (%) (Auto) , Basophils (%) (Auto) , Differential Total Cells Counted 100, Neutrophils % ( Manual) 71, Lymphocytes % (Manual) 18L, Monocytes % (Manual) 4, Eosinophils % ( Manual) 4H, Basophils % (Manual) 0, Band Neutrophils 3, Platelet Estimate Adequate, Platelet Morphology Normal, Hypochromasia 1+ Current Medications Medications (Trade) Dose Ordered Sig/Josiah Route PRN Reason Start Time Stop Time Status Last Admin Dose Admin Acetaminophen 650 mg 650 mg Q4H PRN ORAL Mild Pain/Temp > 100.5 07/31/16 10:30 08/30/16 10:29 Albuterol/ Ipratropium (DuoNeb 0.5-3(2.5)mg/3ml) 3 ml Q4HRT HHN 07/31/16 15:00 08/05/16 14:59 08/04/16 06:44 Cefepime HCl/ Dextrose (Maxipime/D5W) 50 ml @ 100 mls/hr DAILY IVPB 08/01/16 14:00 08/08/16 13:59 08/03/16 11:35 Digoxin (Lanoxin) 0.25 mg DAILY GT 07/31/16 12:30 08/30/16 12:29 08/03/16 09:00 Heparin Sodium (Porcine) (Heparin 5000 units/ml) 5,000 units EVERY 12 HOURS SUBQ 08/01/16 21:00 08/31/16 20:59 08/03/16 22:06 Lorazepam (Ativan 2mg/ml 1ml) 1 mg Q3H PRN IV For Anxiety 07/31/16 10:30 08/07/16 10:29 08/04/16 07:59 Ondansetron HCl (Zofran) 4 mg Q6H PRN IVP Nausea & Vomiting 07/31/16 12:30 08/30/16 12:29 Sodium Chloride (Sodium Chloride 1000ml bag) 1,000 ml @ 100 mls/hr Q10H IV 07/31/16 10:30 08/30/16 10:29 08/04/16 00:05 Tramadol HCl 25 mg 25 mg Q6H PRN GT Moderate Pain (Pain Scale 4-6) 07/31/16 12:30 08/07/16 12:29 MARCY MAJOR Aug 04, 2016 08:52
[2016-08-04] MEDS: Digoxin Elixir 0.125mg GT SCH (09:06)
[2016-08-04] MEDS: Heparin 5000 units/ml inj SUBQ SCH ×2 (09:06→21:35)
--- NOTE | 2016-08-04 11:34 | Infectious Diseases Prog Note ---
Assessment/Plan Assessment/Plan antibiotics : cefepime A 1. klebsiella pneumonia 2. leucocytosis resolved 3. respiratory failure 4. tongue squamous cell carcinoma P 1. d/c cefepime 2. start inhaled colistin 3. will follow up cultures Subjective ROS Limited/Unobtainable: Yes Allergies: Coded Allergies: PENICILLINS (Verified Allergy, Unknown, 07/31/16) Objective Vital Signs Last 24 Hour Vital Signs Date Time Temp Pulse Resp B/P Pulse Ox O2 Delivery O2 Flow Rate FiO2 08/04/16 10:44 74 14 30 08/04/16 10:43 74 14 99 Mechanical Ventilator 30 08/04/16 10:30 30 08/04/16 10:30 78 14 99 Mechanical Ventilator 30 08/04/16 09:06 84 08/04/16 08:42 84 14 30 08/04/16 08:19 81 08/04/16 08:00 97.3 84 14 111/53 100 Mechanical Ventilator 30 08/04/16 08:00 30 08/04/16 06:45 80 14 30 08/04/16 06:44 80 14 99 Mechanical Ventilator 30 08/04/16 06:32 30 08/04/16 06:32 79 14 99 Mechanical Ventilator 30 08/04/16 05:06 91 14 30 08/04/16 04:00 97.4 82 14 103/46 99 Mechanical Ventilator 30.0 08/04/16 04:00 88 08/04/16 04:00 30 08/04/16 03:04 91 15 99 Mechanical Ventilator 30 08/04/16 02:56 89 14 99 Mechanical Ventilator 30 08/04/16 02:56 30 08/04/16 02:55 89 14 30 08/04/16 01:07 87 14 30 08/04/16 00:00 97.7 93 17 102/44 95 Mechanical Ventilator 30 08/04/16 00:00 30 08/04/16 00:00 92 08/03/16 23:23 89 14 99 Mechanical Ventilator 30 08/03/16 23:14 30 08/03/16 23:14 93 14 99 Mechanical Ventilator 30 08/03/16 23:12 93 14 30 08/03/16 21:10 108 16 30 08/03/16 20:00 97.4 100 17 110/50 99 Mechanical Ventilator 30 08/03/16 20:00 10.0 30 08/03/16 19:42 104 08/03/16 18:58 95 14 100 Mechanical Ventilator 30 08/03/16 18:50 30 08/03/16 18:50 104 19 100 Mechanical Ventilator 30 08/03/16 18:49 104 19 30 08/03/16 16:58 89 14 30 08/03/16 16:00 114 08/03/16 16:00 97.8 101 15 100/52 97 Mechanical Ventilator 30 08/03/16 16:00 30 08/03/16 15:05 100 15 100 Mechanical Ventilator 30 08/03/16 14:51 30 08/03/16 14:51 98 14 30 08/03/16 14:51 98 14 98 Mechanical Ventilator 30 08/03/16 13:18 116 16 30 08/03/16 12:00 97.7 70 16 116/67 100 Mechanical Ventilator 30 08/03/16 12:00 30 08/03/16 12:00 124 08/03/16 11:43 92 16 100 Mechanical Ventilator 30 Height (Feet): 5 Height (Inches): 2.00 Weight (Pounds): 120 HEENT: status post trach Respiratory/Chest: lungs clear Cardiovascular: normal rate, regular rhythm, no gallop/murmur Abdomen: soft, non tender, other - GT Extremities: no edema Microbiology Date/Time Source Procedure Growth Status 08/01/16 21:00 Sputum Gram Stain - Final Resulted 08/01/16 21:00 Sputum Culture - Preliminary K.pneumoniae Carbapenem Resist Resulted 08/01/16 12:00 Stool Clostridium difficile Toxin Assay - Final Complete 08/01/16 21:00 Urine,Clean Catch Urine Culture - Final NO GROWTH AFTER 48 HOURS Complete Laboratory Tests Test 08/04/16 04:00 White Blood Count 7.6 K/UL (4.8-10.8) Red Blood Count 2.66 M/UL (4.20-5.40) L Hemoglobin 7.9 G/DL (12.0-16.0) L Hematocrit 24.8 % (37.0-47.0) L Mean Corpuscular Volume 93 FL (80-99) Mean Corpuscular Hemoglobin 29.6 PG (27.0-31.0) Mean Corpuscular Hemoglobin Concent 31.8 G/DL (32.0-36.0) L Red Cell Distribution Width 14.1 % (11.6-14.8) Platelet Count 204 K/UL (150-450) Mean Platelet Volume 6.2 FL (6.5-10.1) L Neutrophils (%) (Auto) % (45.0-75.0) Lymphocytes (%) (Auto) % (20.0-45.0) Monocytes (%) (Auto) % (1.0-10.0) Eosinophils (%) (Auto) % (0.0-3.0) Basophils (%) (Auto) % (0.0-2.0) Differential Total Cells Counted 100 Neutrophils % (Manual) 71 % (45-75) Lymphocytes % (Manual) 18 % (20-45) L Monocytes % (Manual) 4 % (1-10) Eosinophils % (Manual) 4 % (0-3) H Basophils % (Manual) 0 % (0-2) Band Neutrophils 3 % (0-8) Platelet Estimate Adequate Platelet Morphology Normal Hypochromasia 1+ MARA BLOCK Aug 04, 2016 11:34
[2016-08-04] MEDS: Colistin for inhalation INH SCH ×2 (12:00→20:56)
[2016-08-05] MEDS: DuoNeb 0.5-3(2.5)mg/3ml neb HHN SCH ×3 (03:12→12:04)
[2016-08-05 04:00] VITALS: BP_SYST 109; BP_SYST 114; BP_DIAS 53; BP_DIAS 60
[2016-08-05 08:00] VITALS: BP 104/46
[2016-08-05] MEDS: Colistin for inhalation INH SCH ×2 (08:35→21:14)
--- NOTE | 2016-08-05 08:56 | General Progress Note ---
Assessment/Plan Problem List: (1) Respiratory distress ICD Codes: R06.00 - Dyspnea, unspecified SNOMED: 231064985 (2) Pneumonia ICD Codes: J18.9 - Pneumonia, unspecified organism SNOMED: 776144976 (3) SCC (squamous cell carcinoma) ICD Codes: C44.92 - Squamous cell carcinoma of skin, unspecified SNOMED: 080977571 (4) Tracheostomy in place ICD Codes: Z93.0 - Tracheostomy status SNOMED: 925921718 Status: stable, progressing Assessment/Plan abx per id follow up cultures resp care suctioning wean as able feeds dc ivf lasix x 1 monitor h/h/labs- may need to transfuse tomorrow transfuse prn full code per son Subjective ROS Limited/Unobtainable: No Constitutional: Reports: malaise, weakness HEENT: Reports: no symptoms Cardiovascular: Reports: edema Respiratory: Reports: cough, shortness of breath Gastrointestinal/Abdominal: Reports: no symptoms Genitourinary: Reports: no symptoms Neurologic/Psychiatric: Reports: no symptoms Endocrine: Reports: no symptoms Hematologic/Lymphatic: Reports: no symptoms Allergies: Coded Allergies: PENICILLINS (Verified Allergy, Unknown, 07/31/16) All Systems: reviewed and negative except above Subjective on the vent. less congested. on iv abx. h/h lower. cultures noted. no labs today. anxious. cxr noted. Objective Last 24 Hour Vital Signs Date Time Temp Pulse Resp B/P Pulse Ox O2 Delivery O2 Flow Rate FiO2 08/05/16 07:30 98 14 30 08/05/16 05:26 99 14 30 08/05/16 04:00 97.5 78 14 109/53 96 Mechanical Ventilator 08/05/16 04:00 8 08/05/16 04:00 30 08/05/16 03:20 97 14 100 Mechanical Ventilator 30 08/05/16 03:11 30 08/05/16 03:11 98 14 100 Mechanical Ventilator 30 08/05/16 03:10 96 14 30 08/05/16 01:12 90 14 30 08/05/16 00:00 30 08/05/16 00:00 98 08/04/16 23:48 98 14 99 Mechanical Ventilator 30 08/04/16 23:23 98 14 30 08/04/16 23:22 69 14 100 Mechanical Ventilator 30 08/04/16 23:22 30 08/04/16 23:08 97.9 108 28 112/44 Mechanical Ventilator 30 08/04/16 21:00 96 14 30 08/04/16 20:59 99 14 99 Mechanical Ventilator 30 08/04/16 20:59 30 08/04/16 20:00 98.4 92 14 114/60 99 Mechanical Ventilator 30 08/04/16 20:00 30 08/04/16 20:00 98 08/04/16 18:40 82 14 99 Mechanical Ventilator 30 08/04/16 18:31 83 14 30 08/04/16 18:31 30 08/04/16 18:30 83 14 98 Mechanical Ventilator 30 08/04/16 17:06 100 14 30 08/04/16 16:00 97.7 89 14 133/66 100 30 08/04/16 15:29 64 14 30 08/04/16 15:22 102 08/04/16 14:55 77 14 99 Mechanical Ventilator 30 08/04/16 14:45 77 14 99 Mechanical Ventilator 30 08/04/16 14:45 30 08/04/16 12:41 60 14 30 08/04/16 12:00 97.7 85 14 116/57 100 Mechanical Ventilator 30 08/04/16 12:00 30 08/04/16 11:53 98 08/04/16 10:44 74 14 30 08/04/16 10:43 74 14 99 Mechanical Ventilator 30 08/04/16 10:30 30 08/04/16 10:30 78 14 99 Mechanical Ventilator 08/04/16 09:06 84 Intake and Output 08/04/16 08/05/16 19:00 07:00 Intake Total 1130 ml 1790 ml Output Total 500 ml 300 ml Balance 630 ml 1490 ml Free Water 50 ml IV Total 350 ml 1100 ml Tube Feeding 480 ml 440 ml Blood Product 250 ml 250 ml Output Urine Total 500 ml 300 ml # Bowel Movements 2 Height (Feet): 5 Height (Inches): 2.00 Weight (Pounds): 120 Objective General Appearance: WD/WN, lethargic, mild distress Neck: supple Cardiovascular: regular rhythm Respiratory/Chest: rhonchi - bilaterally Abdomen: normal bowel sounds, non tender, soft, no organomegaly, no mass Edema: +generalized edema noted Neurologic: disoriented, aphasia CHRISTINA HAMMOND Aug 05, 2016 08:56
[2016-08-05] MEDS: Digoxin Elixir 0.125mg GT SCH (09:56)
[2016-08-05] MEDS: Heparin 5000 units/ml inj SUBQ SCH ×2 (09:57→21:42)
--- NOTE | 2016-08-05 10:59 | Infectious Diseases Prog Note ---
Assessment/Plan Assessment/Plan antibiotics : inhaled colistin A 1. klebsiella pneumonia 2. leucocytosis resolved 3. respiratory failure 4. tongue squamous cell carcinoma P 1. continue inhaled colistin 2. will follow up cultures Subjective ROS Limited/Unobtainable: Yes Allergies: Coded Allergies: PENICILLINS (Verified Allergy, Unknown, 07/31/16) Objective Vital Signs Last 24 Hour Vital Signs Date Time Temp Pulse Resp B/P Pulse Ox O2 Delivery O2 Flow Rate FiO2 08/05/16 09:56 74 08/05/16 09:30 99 14 30 08/05/16 08:00 97.7 74 14 104/46 97 Mechanical Ventilator 30 08/05/16 07:30 98 14 30 08/05/16 05:26 99 14 30 08/05/16 04:00 97.5 78 14 109/53 96 Mechanical Ventilator 08/05/16 04:00 8 08/05/16 04:00 30 08/05/16 03:20 97 14 100 Mechanical Ventilator 30 08/05/16 03:11 30 08/05/16 03:11 98 14 100 Mechanical Ventilator 30 08/05/16 03:10 96 14 30 08/05/16 01:12 90 14 30 08/05/16 00:00 30 08/05/16 00:00 98 08/04/16 23:48 98 14 99 Mechanical Ventilator 30 08/04/16 23:23 98 14 30 08/04/16 23:22 69 14 100 Mechanical Ventilator 30 08/04/16 23:22 30 08/04/16 23:08 97.9 108 28 112/44 Mechanical Ventilator 30 08/04/16 21:00 96 14 30 08/04/16 20:59 99 14 99 Mechanical Ventilator 30 08/04/16 20:59 30 08/04/16 20:00 98.4 92 14 114/60 99 Mechanical Ventilator 30 08/04/16 20:00 30 08/04/16 20:00 98 08/04/16 18:40 82 14 99 Mechanical Ventilator 30 08/04/16 18:31 83 14 30 08/04/16 18:31 30 08/04/16 18:30 83 14 98 Mechanical Ventilator 30 08/04/16 17:06 100 14 30 08/04/16 16:00 97.7 89 14 133/66 100 30 08/04/16 15:29 64 14 30 08/04/16 15:22 102 08/04/16 14:55 77 14 99 Mechanical Ventilator 30 08/04/16 14:45 77 14 99 Mechanical Ventilator 30 08/04/16 14:45 30 08/04/16 12:41 60 14 30 08/04/16 12:00 97.7 85 14 116/57 100 Mechanical Ventilator 30 08/04/16 12:00 30 08/04/16 11:53 98 Height (Feet): 5 Height (Inches): 2.00 Weight (Pounds): 120 HEENT: status post trach Respiratory/Chest: lungs clear Cardiovascular: normal rate, regular rhythm, no gallop/murmur Abdomen: soft, non tender, other - GT Extremities: other - + edema MARA BLOCK Aug 05, 2016 10:59
[2016-08-05 12:00] VITALS: BP 95/55
[2016-08-05] MEDS ORDERED: NS 275ml ONE (14:46)
[2016-08-05] MEDS ORDERED: Tubing IV Secondary IV ONE (14:46)
[2016-08-05] MEDS ORDERED: Tubing Blood Filter IV ONE (14:46)
[2016-08-05 16:00] VITALS: BP 108/47
[2016-08-05 20:00] VITALS: BP 123/69
--- NOTE | 2016-08-05 21:46 | Pulmonology Progress Note ---
Assessment/Plan Assessment/Plan IMPRESSION: 1. History of tongue cancer. 2. Evidence of bilateral pleural effusion. 3. Respiratory failure. 4. Acute respiratory acidosis. 5. Hypoxemia. 6. Evidence of transient hypotension. 7. Leukocytosis. 8. Possible sepsis. 9. Significant lactic acidemia 10. Elevated liver enzymes. 11. Elevated natriuretic peptide. 12. Evidence of anemia. 13. Failure to thrive. 14. Atrial fibrillation, paroxysmal. PLAN IV antibiotics transfused lasix given respiratory care as is oxygen therapy suction as needed Taper antibiotics per ID ID follow up and clearance monitor hemodynamics monitor trach and airway and secretions stabilize and transfer back to subacute per son's choice impression, plan, and exam edited and reviewed in detail care discussed with RN Subjective Allergies: Coded Allergies: PENICILLINS (Verified Allergy, Unknown, 07/31/16) Subjective care noted and reviewed d/w nursing and changes d/w Dr. Madrigal, patient family does not want to return to rehab of [facility] Objective Last 24 Hour Vital Signs Date Time Temp Pulse Resp B/P Pulse Ox O2 Delivery O2 Flow Rate FiO2 08/05/16 21:13 47 14 99 Mechanical Ventilator 30 08/05/16 21:13 30 08/05/16 21:00 47 14 30 08/05/16 19:10 61 14 30 08/05/16 17:30 80 14 30 08/05/16 16:00 30 08/05/16 16:00 98.2 78 14 108/47 98 Mechanical Ventilator 30 08/05/16 16:00 94 08/05/16 15:30 87 14 30 08/05/16 13:30 88 14 30 08/05/16 12:00 96.8 73 14 95/55 98 Mechanical Ventilator 30 08/05/16 12:00 30 08/05/16 12:00 87 08/05/16 11:30 87 14 100 Mechanical Ventilator 30 08/05/16 11:30 92 14 30 08/05/16 11:30 86 14 100 Mechanical Ventilator 30 08/05/16 11:30 30 08/05/16 09:56 74 08/05/16 09:30 99 14 30 08/05/16 08:00 30 08/05/16 08:00 97.7 74 14 104/46 97 Mechanical Ventilator 30 08/05/16 08:00 103 08/05/16 07:35 91 14 100 Mechanical Ventilator 30 08/05/16 07:30 30 08/05/16 07:30 89 14 99 Mechanical Ventilator 30 08/05/16 07:30 96 14 100 Mechanical Ventilator 30 08/05/16 07:30 98 14 30 08/05/16 07:30 92 14 100 Mechanical Ventilator 30 08/05/16 07:30 30 08/05/16 05:26 99 14 30 08/05/16 04:00 97.5 78 14 109/53 96 Mechanical Ventilator 08/05/16 04:00 8 08/05/16 04:00 30 08/05/16 03:20 97 14 100 Mechanical Ventilator 30 08/05/16 03:11 30 08/05/16 03:11 98 14 100 Mechanical Ventilator 30 08/05/16 03:10 96 14 30 08/05/16 01:12 90 14 30 08/05/16 00:00 30 08/05/16 00:00 98 08/04/16 23:48 98 14 99 Mechanical Ventilator 30 08/04/16 23:23 98 14 30 08/04/16 23:22 69 14 100 Mechanical Ventilator 30 08/04/16 23:22 30 08/04/16 23:08 97.9 108 28 112/44 Mechanical Ventilator 30 Intake and Output 08/04/16 08/05/16 19:00 07:00 Intake Total 1130 ml 1790 ml Output Total 500 ml 300 ml Balance 630 ml 1490 ml Free Water 50 ml IV Total 350 ml 1100 ml Tube Feeding 480 ml 440 ml Blood Product 250 ml 250 ml Output Urine Total 500 ml 300 ml # Bowel Movements 2 Objective GENERAL: A well-developed female, chronically ill. HEENT: Negative. Pupils are sluggish, but reactive. NECK: Supple. Some deformity noted. The patient has a tracheostomy in the midline. Carotids are 2+. LUNGS: Coarse breath sounds. Moderate air entry. without change CARDIAC: Normal S1 and S2. Regular rhythm without murmurs, rubs, or gallops. ABDOMEN: Soft, nontender, and nondistended. No hepatosplenomegaly. EXTREMITIES: No cyanosis or clubbing. There is trace edema. Degenerative joint disease. NEUROLOGICAL: Reduced LOC. reviewed and edited Current Medications Medications (Trade) Dose Ordered Sig/Josiah Route PRN Reason Start Time Stop Time Status Last Admin Dose Admin Acetaminophen (Tylenol) 650 mg Q4H PRN ORAL Mild Pain/Temp > 100.5 07/31/16 10:30 08/30/16 10:29 08/05/16 12:55 Colistimethate Sodium (Colistin *inhalation use only*) 75 mg Q12HR@10,22 INH 08/04/16 12:00 08/11/16 11:59 08/05/16 21:14 Digoxin (Lanoxin) 0.25 mg DAILY GT 07/31/16 12:30 08/30/16 12:29 08/05/16 09:56 Furosemide (Lasix) 40 mg DAILY IV 08/06/16 09:00 09/05/16 08:59 Heparin Sodium (Porcine) (Heparin 5000 units/ml) 5,000 units EVERY 12 HOURS SUBQ 08/01/16 21:00 08/31/16 20:59 08/05/16 09:57 Lorazepam (Ativan 2mg/ml 1ml) 1 mg Q3H PRN IV For Anxiety 07/31/16 10:30 08/07/16 10:29 08/04/16 23:15 Ondansetron HCl (Zofran) 4 mg Q6H PRN IVP Nausea & Vomiting 07/31/16 12:30 08/30/16 12:29 Tramadol HCl (Ultram) 25 mg Q6H PRN GT Moderate Pain (Pain Scale 4-6) 07/31/16 12:30 08/07/16 12:29 MARCY MAJOR Aug 05, 2016 21:46
[2016-08-05 22:45] VITALS: BP 123/69
[2016-08-06] VITALS: BP 132/70
[2016-08-06] MEDS: LORazepam Inj 2mg/ml 1ml IV PRN ×4 (00:39→18:29)
[2016-08-06 04:00] VITALS: BP 104/54
[2016-08-06 05:57] LABS: BASOPHILS % (AUTO) 0.6 % (0.0-2.0); EOSINOPHILS % (AUTO) 4.9 % (0.0-3.0); LYMPHOCYTES % (AUTO) 10.4 % (20.0-45.0); MEAN CORPUSCULAR HEMOGLOBIN 30.3 PG (27.0-31.0); MEAN CORPUSCULAR HGB CONC 33.1 G/DL (32.0-36.0); MEAN CORPUSCULAR VOLUME 92 FL (80-99); MEAN PLATELET VOLUME 7.1 FL (6.5-10.1); MONOCYTES % (AUTO) 8.9 % (1.0-10.0); NEUTROPHILS % (AUTO) 75.3 % (45.0-75.0); PLATELET COUNT 230 K/UL (150-450); RED BLOOD COUNT 4.19 M/UL (4.20-5.40); RED CELL DISTRIBUTION WIDTH 13.9 % (11.6-14.8); WHITE BLOOD COUNT 10.1 K/UL (4.8-10.8)
[2016-08-06 06:12] LABS: ALANINE AMINOTRANSFERASE 49 U/L (3-33); ALBUMIN/GLOBULIN RATIO 0.6 (1.0-2.7); ANION GAP 10 (5-15); ASPARTATE AMINO TRANSFERASE 76 U/L (5-40); CALCIUM 8.3 mg/dL (8.6-10.2); CARBON DIOXIDE 30 mEQ/L (20-30); CHLORIDE 101 mEQ/L (98-107); CREATININE 0.5 mg/dL (0.5-0.9); HEMOLYSIS 3; MAGNESIUM 1.5 mg/dL (1.7-2.5); POTASSIUM 2.9 mEQ/L (3.4-4.9); SODIUM 141 mEQ/L (135-145); TOTAL PROTEIN 5.5 g/dL (6.6-8.7)
[2016-08-06 08:00] VITALS: BP_SYST 114; BP_SYST 143; BP_DIAS 54; BP_DIAS 59
[2016-08-06] MEDS: KCl 10% 40mEq/30ml liquid NG SCH ×2 (09:17→13:07)
[2016-08-06] MEDS: Digoxin Elixir 0.125mg GT SCH (09:18)
[2016-08-06] MEDS: Heparin 5000 units/ml inj SUBQ SCH ×2 (09:25→22:41)
[2016-08-06] MEDS: Colistin for inhalation INH SCH ×2 (10:41→22:13)
[2016-08-06 12:00] VITALS: BP 143/54
--- NOTE | 2016-08-06 13:43 | General Progress Note ---
Assessment/Plan Problem List: (1) Respiratory distress ICD Codes: R06.00 - Dyspnea, unspecified SNOMED: 367643351 (2) Pneumonia ICD Codes: J18.9 - Pneumonia, unspecified organism SNOMED: 308110642 (3) SCC (squamous cell carcinoma) ICD Codes: C44.92 - Squamous cell carcinoma of skin, unspecified SNOMED: 015762863 (4) Tracheostomy in place ICD Codes: Z93.0 - Tracheostomy status SNOMED: 446761182 Status: stable, progressing Assessment/Plan abx per id follow up cultures resp care suctioning wean as able feeds dc ivf lasix x 1 monitor h/h/labs- may need to transfuse tomorrow diuresis replace lytes Subjective ROS Limited/Unobtainable: Yes Constitutional: Reports: malaise, weakness HEENT: Reports: no symptoms Cardiovascular: Reports: edema Respiratory: Reports: cough, shortness of breath, sputum Gastrointestinal/Abdominal: Reports: difficulty swallowing Genitourinary: Reports: no symptoms Neurologic/Psychiatric: Reports: no symptoms Endocrine: Reports: no symptoms Hematologic/Lymphatic: Reports: no symptoms Allergies: Coded Allergies: PENICILLINS (Verified Allergy, Unknown, 07/31/16) All Systems: reviewed and negative except above Subjective on the vent. less congested. on iv abx. h/h lower. cultures noted. no labs today. anxious. cxr noted. d/w son at length. concern regarding generalized edema. IVF dcd yesterday. diuresis added. Objective Last 24 Hour Vital Signs Date Time Temp Pulse Resp B/P Pulse Ox O2 Delivery O2 Flow Rate FiO2 08/06/16 13:26 111 14 30 08/06/16 12:37 30 08/06/16 10:51 99 14 97 Mechanical Ventilator 3.0 30 08/06/16 10:41 30 08/06/16 10:41 99 14 97 Mechanical Ventilator 30 08/06/16 10:41 99 14 30 08/06/16 09:18 101 08/06/16 08:53 100 14 30 08/06/16 08:00 30 08/06/16 08:00 78 08/06/16 07:16 100 14 30 08/06/16 05:22 92 14 30 08/06/16 04:00 104 08/06/16 04:00 96.8 76 18 104/54 97 Mechanical Ventilator 08/06/16 04:00 30 08/06/16 03:24 148 14 30 08/06/16 01:25 70 14 30 08/06/16 00:00 97.0 82 18 132/70 100 Mechanical Ventilator 08/06/16 00:00 30 08/05/16 23:59 110 08/05/16 22:46 68 15 30 08/05/16 21:23 52 14 100 Mechanical Ventilator 08/05/16 21:13 47 14 99 Mechanical Ventilator 08/05/16 21:13 30 08/05/16 21:00 47 14 30 08/05/16 20:00 30 08/05/16 20:00 96 08/05/16 20:00 98.0 90 15 123/69 98 Mechanical Ventilator 08/05/16 19:10 61 14 30 08/05/16 17:30 80 14 30 08/05/16 16:00 30 08/05/16 16:00 98.2 78 14 108/47 98 Mechanical Ventilator 08/05/16 16:00 94 08/05/16 15:30 87 14 30 Intake and Output 08/05/16 08/06/16 19:00 07:00 Intake Total 1230 ml 580 ml Output Total 2700 ml 1200 ml Balance -1470 ml -620 ml Free Water 150 ml 100 ml IV Total 600 ml Tube Feeding 480 ml 480 ml Output Urine Total 2700 ml 1200 ml # Bowel Movements 1 Laboratory Tests 08/06/16 05:30: White Blood Count 10.1, Red Blood Count 4.19L, Hemoglobin 12.7, Hematocrit 38.4 , Mean Corpuscular Volume 92, Mean Corpuscular Hemoglobin 30.3, Mean Corpuscular Hemoglobin Concent 33.1, Red Cell Distribution Width 13.9, Platelet Count 230, Mean Platelet Volume 7.1, Neutrophils (%) (Auto) 75.3H, Lymphocytes ( %) (Auto) 10.4L, Monocytes (%) (Auto) 8.9, Eosinophils (%) (Auto) 4.9H, Basophils (%) (Auto) 0.6, Sodium Level 141, Potassium Level 2.9L, Chloride Level 101, Carbon Dioxide Level 30, Anion Gap 10, Blood Urea Nitrogen 10, Creatinine 0.5, Estimat Glomerular Filtration Rate , Glucose Level 122H, Calcium Level 8.3L, Magnesium Level 1.5L, Total Bilirubin 0.3, Aspartate Amino Transf (AST/SGOT) 76H, Alanine Aminotransferase (ALT/SGPT) 49H, Alkaline Phosphatase 99, Total Protein 5.5L, Albumin 2.2L, Globulin 3.3, Albumin/ Globulin Ratio 0.6L Height (Feet): 5 Height (Inches): 2.00 Weight (Pounds): 120 Objective General Appearance: WD/WN, lethargic, mild distress Neck: supple Cardiovascular: regular rhythm Respiratory/Chest: rhonchi - bilaterally Abdomen: normal bowel sounds, non tender, soft, no organomegaly, no mass Edema: +generalized edema noted Neurologic: disoriented, aphasia CHRISTINA HAMMOND Aug 06, 2016 13:43
--- NOTE | 2016-08-06 14:11 | Pulmonology Progress Note ---
Assessment/Plan Assessment/Plan IMPRESSION: 1. History of tongue cancer. 2. Evidence of bilateral pleural effusion. 3. Respiratory failure. 4. Acute respiratory acidosis. 5. Hypoxemia. 6. Evidence of transient hypotension. 7. Leukocytosis. 8. Possible sepsis. 9. Significant lactic acidemia 10. Elevated liver enzymes. 11. Elevated natriuretic peptide. 12. Evidence of anemia. 13. Failure to thrive. 14. Atrial fibrillation, paroxysmal. PLAN IV antibiotics per ID transfused lasix given respiratory care as is oxygen therapy suction as needed ID follow up and clearance monitor hemodynamics monitor trach and airway and secretions stabilize and transfer back to subacute per son's choice impression, plan, and exam edited and reviewed in detail care discussed with RN Subjective Allergies: Coded Allergies: PENICILLINS (Verified Allergy, Unknown, 07/31/16) Subjective care noted and reviewed dc planning discussed Objective Last 24 Hour Vital Signs Date Time Temp Pulse Resp B/P Pulse Ox O2 Delivery O2 Flow Rate FiO2 08/06/16 13:26 111 14 30 08/06/16 12:37 30 08/06/16 10:51 99 14 97 Mechanical Ventilator 3.0 30 08/06/16 10:41 30 08/06/16 10:41 99 14 97 Mechanical Ventilator 30 08/06/16 10:41 99 14 30 08/06/16 09:18 101 08/06/16 08:53 100 14 30 08/06/16 08:00 30 08/06/16 08:00 78 08/06/16 07:16 100 14 30 08/06/16 05:22 92 14 30 08/06/16 04:00 104 08/06/16 04:00 96.8 76 18 104/54 97 Mechanical Ventilator 08/06/16 04:00 30 08/06/16 03:24 148 14 30 08/06/16 01:25 70 14 30 08/06/16 00:00 97.0 82 18 132/70 100 Mechanical Ventilator 08/06/16 00:00 30 08/05/16 23:59 110 08/05/16 22:46 68 15 30 08/05/16 21:23 52 14 100 Mechanical Ventilator 30 08/05/16 21:13 47 14 99 Mechanical Ventilator 30 08/05/16 21:13 30 08/05/16 21:00 47 14 30 08/05/16 20:00 30 3/4/17 20:00 96 08/05/16 20:00 98.0 90 15 123/69 98 Mechanical Ventilator 30 08/05/16 19:10 61 14 30 08/05/16 17:30 80 14 30 08/05/16 16:00 30 08/05/16 16:00 98.2 78 14 108/47 98 Mechanical Ventilator 30 08/05/16 16:00 94 08/05/16 15:30 87 14 30 Intake and Output 08/05/16 08/06/16 19:00 07:00 Intake Total 1230 ml 580 ml Output Total 2700 ml 1200 ml Balance -1470 ml -620 ml Free Water 150 ml 100 ml IV Total 600 ml Tube Feeding 480 ml 480 ml Output Urine Total 2700 ml 1200 ml # Bowel Movements 1 Objective GENERAL: A well-developed female, chronically ill. HEENT: Negative. Pupils are sluggish, but reactive. NECK: Supple. Some deformity noted. The patient has a tracheostomy in the midline. Carotids are 2+. LUNGS: Coarse breath sounds. Moderate air entry. without change CARDIAC: Normal S1 and S2. Regular rhythm without murmurs, rubs, or gallops. ABDOMEN: Soft, nontender, and nondistended. No hepatosplenomegaly. EXTREMITIES: No cyanosis or clubbing. There is trace edema. Degenerative joint disease. NEUROLOGICAL: Reduced LOC. reviewed and edited Laboratory Tests 08/06/16 05:30: White Blood Count 10.1, Red Blood Count 4.19L, Hemoglobin 12.7, Hematocrit 38.4 , Mean Corpuscular Volume 92, Mean Corpuscular Hemoglobin 30.3, Mean Corpuscular Hemoglobin Concent 33.1, Red Cell Distribution Width 13.9, Platelet Count 230, Mean Platelet Volume 7.1, Neutrophils (%) (Auto) 75.3H, Lymphocytes ( %) (Auto) 10.4L, Monocytes (%) (Auto) 8.9, Eosinophils (%) (Auto) 4.9H, Basophils (%) (Auto) 0.6, Sodium Level 141, Potassium Level 2.9L, Chloride Level 101, Carbon Dioxide Level 30, Anion Gap 10, Blood Urea Nitrogen 10, Creatinine 0.5, Estimat Glomerular Filtration Rate , Glucose Level 122H, Calcium Level 8.3L, Magnesium Level 1.5L, Total Bilirubin 0.3, Aspartate Amino Transf (AST/SGOT) 76H, Alanine Aminotransferase (ALT/SGPT) 49H, Alkaline Phosphatase 99, Total Protein 5.5L, Albumin 2.2L, Globulin 3.3, Albumin/ Globulin Ratio 0.6L Current Medications Medications (Trade) Dose Ordered Sig/Josiah Route PRN Reason Start Time Stop Time Status Last Admin Dose Admin Acetaminophen (Tylenol) 650 mg Q4H PRN ORAL Mild Pain/Temp > 100.5 07/31/16 10:30 08/30/16 10:29 08/06/16 11:36 Colistimethate Sodium (Colistin *inhalation use only*) 75 mg Q12HR@10,22 INH 08/04/16 12:00 08/11/16 11:59 08/06/16 10:41 Digoxin (Lanoxin) 0.25 mg DAILY GT 07/31/16 12:30 08/30/16 12:29 08/06/16 09:18 Furosemide 40 mg 40 mg DAILY IV 08/06/16 09:00 09/05/16 08:59 08/06/16 09:17 Heparin Sodium (Porcine) (Heparin 5000 units/ml) 5,000 units EVERY 12 HOURS SUBQ 08/01/16 21:00 08/31/16 20:59 08/06/16 09:25 Lorazepam (Ativan 2mg/ml 1ml) 1 mg Q3H PRN IV For Anxiety 07/31/16 10:30 08/07/16 10:29 08/06/16 12:14 Magnesium Sulfate (Magnesium Sulfate 1gm/100ml) 100 ml @ 100 mls/hr Q1H IVPB 08/06/16 14:00 08/06/16 15:59 Ondansetron HCl (Zofran) 4 mg Q6H PRN IVP Nausea & Vomiting 07/31/16 12:30 08/30/16 12:29 08/06/16 10:06 Tramadol HCl (Ultram) 25 mg Q6H PRN GT Moderate Pain (Pain Scale 4-6) 07/31/16 12:30 08/07/16 12:29 08/06/16 10:06 MARCY MAJOR 5, 2017 14:11
[2016-08-06] MEDS ORDERED: NS 275ml ONE (15:11)
[2016-08-06 16:00] VITALS: BP 123/61
[2016-08-06 20:00] VITALS: BP 110/45
[2016-08-07] VITALS: BP 132/70
[2016-08-07] MEDS: LORazepam Inj 2mg/ml 1ml IV PRN ×5 (01:25→20:48)
[2016-08-07 04:00] VITALS: BP 113/60
[2016-08-07 06:49] LABS: ALANINE AMINOTRANSFERASE 46 U/L (3-33); ALBUMIN/GLOBULIN RATIO 0.6 (1.0-2.7); ANION GAP 13 (5-15); ASPARTATE AMINO TRANSFERASE 72 U/L (5-40); CALCIUM 8.5 mg/dL (8.6-10.2); CARBON DIOXIDE 27 mEQ/L (20-30); CHLORIDE 101 mEQ/L (98-107); CREATININE 0.5 mg/dL (0.5-0.9); HEMOLYSIS 35; POTASSIUM 3.4 mEQ/L (3.4-4.9); SODIUM 141 mEQ/L (135-145); TOTAL PROTEIN 5.6 g/dL (6.6-8.7)
[2016-08-07 08:00] VITALS: BP 107/52
--- NOTE | 2016-08-07 08:29 | Pulmonology Progress Note ---
Assessment/Plan Assessment/Plan IMPRESSION: 1. History of tongue cancer. 2. Evidence of bilateral pleural effusion. 3. Respiratory failure. 4. Acute respiratory acidosis. 5. Hypoxemia. 6. Evidence of transient hypotension. 7. Leukocytosis. 8. Possible sepsis. 9. Significant lactic acidemia 10. Elevated liver enzymes. 11. Elevated natriuretic peptide. 12. Evidence of anemia. 13. Failure to thrive. 14. Atrial fibrillation, paroxysmal. PLAN IV antibiotics and taper respiratory care as is oxygen therapy suction as needed appears comfortable ID follow up and clearance monitor hemodynamics and assess monitor trach and airway and secretions stabilize and transfer back to subacute per son's choice impression, plan, and exam edited and reviewed in detail care discussed with RN Subjective Allergies: Coded Allergies: PENICILLINS (Verified Allergy, Unknown, 07/31/16) Subjective care noted and reviewed dc planning discussed awaiting family decision Objective Last 24 Hour Vital Signs Date Time Temp Pulse Resp B/P Pulse Ox O2 Delivery O2 Flow Rate FiO2 08/07/16 07:02 101 14 30 08/07/16 05:15 98 14 30 08/07/16 04:00 96.4 83 20 113/60 99 Mechanical Ventilator 08/07/16 04:00 96.4 83 20 113/60 99 Mechanical Ventilator 08/07/16 04:00 10.0 30 08/07/16 03:23 98 14 30 08/07/16 03:06 80 08/07/16 01:20 94 14 30 08/07/16 01:00 10.0 30 08/07/16 00:00 81 08/07/16 00:00 97.3 92 22 132/70 99 Mechanical Ventilator 08/06/16 23:18 96 14 30 08/06/16 22:26 92 14 99 Mechanical Ventilator 30 08/06/16 22:14 30 08/06/16 22:13 81 14 99 Mechanical Ventilator 30 08/06/16 20:57 101 14 30 08/06/16 20:00 97.0 75 22 110/45 99 Mechanical Ventilator 08/06/16 19:30 98 14 30 08/06/16 17:30 110 14 30 08/06/16 16:00 98.2 76 14 123/61 99 Mechanical Ventilator 30 08/06/16 14:46 103 14 30 08/06/16 13:26 111 14 30 08/06/16 12:37 30 08/06/16 12:00 97.2 69 14 143/54 100 Mechanical Ventilator 30 08/06/16 12:00 77 08/06/16 10:51 99 14 97 Mechanical Ventilator 3.0 30 08/06/16 10:41 30 08/06/16 10:41 99 14 97 Mechanical Ventilator 30 08/06/16 10:41 99 14 30 08/06/16 09:18 101 08/06/16 08:53 100 14 30 Intake and Output 08/06/16 08/07/16 19:00 07:00 Intake Total 580 ml Output Total 3800 ml 100 ml Balance -3220 ml -100 ml Free Water 100 ml IV Total 100 ml Tube Feeding 320 ml Other 60 ml Output Urine Total 3800 ml 100 ml # Bowel Movements 1 Objective GENERAL: A well-developed female, chronically ill. HEENT: Negative. Pupils are sluggish, but reactive. NECK: Supple. Some deformity noted. The patient has a tracheostomy in the midline. Carotids are 2+. LUNGS: Coarse breath sounds. Moderate air entry. without change CARDIAC: Normal S1 and S2. Regular rhythm without murmurs, rubs, or gallops. ABDOMEN: Soft, nontender, and nondistended. No hepatosplenomegaly. EXTREMITIES: No cyanosis or clubbing. There is trace edema. Degenerative joint disease. NEUROLOGICAL: Reduced LOC. reviewed and edited Laboratory Tests 08/07/16 04:05: Sodium Level 141, Potassium Level 3.4, Chloride Level 101, Carbon Dioxide Level 27, Anion Gap 13, Blood Urea Nitrogen 13, Creatinine 0.5, Estimat Glomerular Filtration Rate , Glucose Level 100, Calcium Level 8.5L, Total Bilirubin 0.2, Aspartate Amino Transf (AST/SGOT) 72H, Alanine Aminotransferase (ALT/SGPT) 46H, Alkaline Phosphatase 95, Total Protein 5.6L, Albumin 2.1L, Globulin 3.5, Albumin /Globulin Ratio 0.6L Current Medications Medications (Trade) Dose Ordered Sig/Josiah Route PRN Reason Start Time Stop Time Status Last Admin Dose Admin Acetaminophen (Tylenol) 650 mg Q4H PRN ORAL Mild Pain/Temp > 100.5 07/31/16 10:30 08/30/16 10:29 08/06/16 11:36 Amitriptyline HCl (Elavil) 10 mg BEDTIME ORAL 08/06/16 21:00 09/05/16 20:59 08/06/16 22:39 Colistimethate Sodium (Colistin *inhalation use only*) 75 mg Q12HR@10,22 INH 08/04/16 12:00 08/11/16 11:59 08/06/16 22:13 Digoxin (Lanoxin) 0.25 mg DAILY GT 07/31/16 12:30 08/30/16 12:29 08/06/16 09:18 Furosemide (Lasix) 40 mg DAILY IV 08/06/16 09:00 09/05/16 08:59 08/06/16 09:17 Heparin Sodium (Porcine) (Heparin 5000 units/ml) 5,000 units EVERY 12 HOURS SUBQ 08/01/16 21:00 08/31/16 20:59 08/06/16 22:41 Lorazepam (Ativan 2mg/ml 1ml) 1 mg Q3H PRN IV For Anxiety 07/31/16 10:30 08/07/16 10:29 08/07/16 05:20 Ondansetron HCl (Zofran) 4 mg Q6H PRN IVP Nausea & Vomiting 07/31/16 12:30 08/30/16 12:29 08/06/16 10:06 Tramadol HCl (Ultram) 25 mg Q6H PRN GT Moderate Pain (Pain Scale 4-6) 07/31/16 12:30 08/07/16 12:29 08/06/16 10:06 MARCY MAJOR Aug 07, 2016 08:29
[2016-08-07] MEDS: Digoxin Elixir 0.125mg GT SCH (08:48)
[2016-08-07] MEDS: Heparin 5000 units/ml inj SUBQ SCH ×2 (08:49→20:42)
--- NOTE | 2016-08-07 10:21 | General Progress Note ---
Assessment/Plan Problem List: (1) Respiratory distress ICD Codes: R06.00 - Dyspnea, unspecified SNOMED: 484547871 (2) Pneumonia ICD Codes: J18.9 - Pneumonia, unspecified organism SNOMED: 472884464 (3) SCC (squamous cell carcinoma) ICD Codes: C44.92 - Squamous cell carcinoma of skin, unspecified SNOMED: 778819680 (4) Tracheostomy in place ICD Codes: Z93.0 - Tracheostomy status SNOMED: 832582665 Status: stable, progressing Assessment/Plan abx per id follow up cultures resp care suctioning wean as able feeds dc ivf lasix x 1 monitor h/h/labs- diuresis replace lytes as needed Subjective ROS Limited/Unobtainable: Yes Constitutional: Reports: malaise, weakness HEENT: Reports: no symptoms Cardiovascular: Reports: no symptoms Respiratory: Reports: shortness of breath, sputum Gastrointestinal/Abdominal: Reports: difficulty swallowing Genitourinary: Reports: no symptoms Neurologic/Psychiatric: Reports: no symptoms Endocrine: Reports: no symptoms Hematologic/Lymphatic: Reports: anemia Allergies: Coded Allergies: PENICILLINS (Verified Allergy, Unknown, 07/31/16) All Systems: reviewed and negative except above Subjective on the vent. no events, tolerating feeds. decrease edema. no distress. on the vent. Objective Last 24 Hour Vital Signs Date Time Temp Pulse Resp B/P Pulse Ox O2 Delivery O2 Flow Rate FiO2 08/07/16 08:56 105 14 30 08/07/16 08:48 101 08/07/16 08:00 96.4 80 14 107/52 100 Mechanical Ventilator 30 08/07/16 07:02 101 14 30 08/07/16 05:15 98 14 30 08/07/16 04:00 96.4 83 20 113/60 99 Mechanical Ventilator 08/07/16 04:00 96.4 83 20 113/60 99 Mechanical Ventilator 08/07/16 04:00 10.0 30 08/07/16 03:23 98 14 30 08/07/16 03:06 80 08/07/16 01:20 94 14 30 08/07/16 01:00 10.0 30 08/07/16 00:00 81 08/07/16 00:00 97.3 92 22 132/70 99 Mechanical Ventilator 08/06/16 23:18 96 14 30 08/06/16 22:26 92 14 99 Mechanical Ventilator 30 08/06/16 22:14 30 08/06/16 22:13 81 14 99 Mechanical Ventilator 30 08/06/16 20:57 101 14 30 08/06/16 20:00 97.0 75 22 110/45 99 Mechanical Ventilator 08/06/16 19:30 98 14 30 08/06/16 17:30 110 14 30 08/06/16 16:00 98.2 76 14 123/61 99 Mechanical Ventilator 30 08/06/16 14:46 103 14 30 08/06/16 13:26 111 14 30 08/06/16 12:37 30 08/06/16 12:00 97.2 69 14 143/54 100 Mechanical Ventilator 30 08/06/16 12:00 77 08/06/16 10:51 99 14 97 Mechanical Ventilator 3.0 30 08/06/16 10:41 30 08/06/16 10:41 99 14 97 Mechanical Ventilator 30 08/06/16 10:41 99 14 30 Intake and Output 08/06/16 08/07/16 19:00 07:00 Intake Total 580 ml Output Total 3800 ml 100 ml Balance -3220 ml -100 ml Free Water 100 ml IV Total 100 ml Tube Feeding 320 ml Other 60 ml Output Urine Total 3800 ml 100 ml # Bowel Movements 1 Laboratory Tests 08/07/16 04:05: Sodium Level 141, Potassium Level 3.4, Chloride Level 101, Carbon Dioxide Level 27, Anion Gap 13, Blood Urea Nitrogen 13, Creatinine 0.5, Estimat Glomerular Filtration Rate , Glucose Level 100, Calcium Level 8.5L, Total Bilirubin 0.2, Aspartate Amino Transf (AST/SGOT) 72H, Alanine Aminotransferase (ALT/SGPT) 46H, Alkaline Phosphatase 95, Total Protein 5.6L, Albumin 2.1L, Globulin 3.5, Albumin /Globulin Ratio 0.6L Height (Feet): 5 Height (Inches): 2.00 Weight (Pounds): 120 Objective General Appearance: WD/WN, lethargic, mild distress Neck: supple Cardiovascular: regular rhythm Respiratory/Chest: rhonchi - bilaterally Abdomen: normal bowel sounds, non tender, soft, no organomegaly, no mass Edema: +generalized edema noted Neurologic: disoriented, aphasia CHRISTINA HAMMOND Aug 07, 2016 10:21
[2016-08-07] MEDS: Colistin for inhalation INH SCH ×2 (10:50→22:08)
[2016-08-07] MEDS ORDERED: KCl 10% 40mEq/30ml liquid NG ONE (11:00)
--- NOTE | 2016-08-07 11:09 | Infectious Diseases Prog Note ---
Assessment/Plan Assessment/Plan antibiotics : inhaled colistin A 1. klebsiella pneumonia 2. leucocytosis resolved 3. respiratory failure 4. tongue squamous cell carcinoma P 1. continue inhaled colistin 3 more days 2. will follow up cultures Subjective ROS Limited/Unobtainable: Yes Allergies: Coded Allergies: PENICILLINS (Verified Allergy, Unknown, 07/31/16) Objective Vital Signs Last 24 Hour Vital Signs Date Time Temp Pulse Resp B/P Pulse Ox O2 Delivery O2 Flow Rate FiO2 08/07/16 10:50 101 14 30 08/07/16 08:56 105 14 30 08/07/16 08:48 101 08/07/16 08:00 30 08/07/16 08:00 96.4 80 14 107/52 100 Mechanical Ventilator 30 08/07/16 08:00 76 08/07/16 07:02 101 14 30 08/07/16 05:15 98 14 30 08/07/16 04:00 96.4 83 20 113/60 99 Mechanical Ventilator 08/07/16 04:00 96.4 83 20 113/60 99 Mechanical Ventilator 08/07/16 04:00 10.0 30 08/07/16 03:23 98 14 30 08/07/16 03:06 80 08/07/16 01:20 94 14 30 08/07/16 01:00 10.0 30 08/07/16 00:00 81 08/07/16 00:00 97.3 92 22 132/70 99 Mechanical Ventilator 08/06/16 23:18 96 14 30 08/06/16 22:26 92 14 99 Mechanical Ventilator 30 08/06/16 22:14 30 08/06/16 22:13 81 14 99 Mechanical Ventilator 30 08/06/16 20:57 101 14 30 08/06/16 20:00 97.0 75 22 110/45 99 Mechanical Ventilator 08/06/16 19:30 98 14 30 08/06/16 17:30 110 14 30 08/06/16 16:00 98.2 76 14 123/61 99 Mechanical Ventilator 30 08/06/16 14:46 103 14 30 08/06/16 13:26 111 14 30 08/06/16 12:37 30 08/06/16 12:00 97.2 69 14 143/54 100 Mechanical Ventilator 30 08/06/16 12:00 77 Height (Feet): 5 Height (Inches): 2.00 Weight (Pounds): 120 HEENT: status post trach Respiratory/Chest: lungs clear Cardiovascular: normal rate, regular rhythm, no gallop/murmur Abdomen: soft, non tender, other - GT Extremities: no edema Laboratory Tests Test 08/07/16 04:05 Sodium Level 141 mEQ/L (135-145) Potassium Level 3.4 mEQ/L (3.4-4.9) Chloride Level 101 mEQ/L (98-107) Carbon Dioxide Level 27 mEQ/L (20-30) Anion Gap 13 (5-15) Blood Urea Nitrogen 13 mg/dL (7-23) Creatinine 0.5 mg/dL (0.5-0.9) Estimat Glomerular Filtration Rate mL/min (>60) Glucose Level 100 mg/dL (74-106) Calcium Level 8.5 mg/dL (8.6-10.2) L Total Bilirubin 0.2 mg/dL (0.0-1.2) Aspartate Amino Transf (AST/SGOT) 72 U/L (5-40) H Alanine Aminotransferase (ALT/SGPT) 46 U/L (3-33) H Alkaline Phosphatase 95 U/L (35-104) Total Protein 5.6 g/dL (6.6-8.7) L Albumin 2.1 g/dL (3.5-5.2) L Globulin 3.5 g/dL Albumin/Globulin Ratio 0.6 (1.0-2.7) L MARA BLOCK Aug 07, 2016 11:09
[2016-08-07 12:00] VITALS: BP 118/61
--- NOTE | 2016-08-07 13:01 | Wound Care Consultation ---
Wound Assessment Wound Assessment #1: Wound Number: #1 Wound Present on Admission: Yes New Wound: No Status Change of Wound: No Wound Location Body Site: sacral Wound Type: pressure ulcer - scattered Ross Test: Does not Ross Pressure Ulcer Stage: III Wound Thickness: Full Thickness Wound Length: 2.0 Wound Width: 2.0 Wound Depth: 0.2 Percent of Wound Sinai/Red: 100 Wound Drainage Amount: Scant Wound Drainage Odor: None/Absent Tissue Surrounding Wound: Macerated Wound General Appearance: Reddened Wound Assessment #2: Wound Number: #2 Wound Present on Admission: Yes New Wound: No Status Change of Wound: No Wound Location Body Site: perineal area Wound Type: chemical burn Ross Test: Does not Ross Percent of Wound Sinai/Red: 100 Wound Drainage Amount: None Wound Drainage Odor: None/Absent Tissue Surrounding Wound: Erythemic Wound General Appearance: Reddened, Open to air Wound Comment #1 Mid sacral scattered stage III. #2 perineal area chemical burn. upon reassessment noted good progress to scattered stage III. decrease in size noted, wound beds remain pink , no further deterioration present. current treatment is effective, appropriate pressure reduce mattress in place, patient repositioned on side, site offloaded , perineal chemical burn noted with good progress decrease in redness noted, patient remains clean and dry at this time. Recommendation -Local wound care as ordered. -Keep clean and dry. -Turn and reposition. -Optimize nutrition. -Heel protectors. -Offload affected site. -Offload heels and feet. -Avoid shear and friction. -Continue pressure relief mattress SPR for skin and wound management. -Assess and notify MD if any change of condition is noted. YADIRA DIAMOND Aug 07, 2016 13:01
[2016-08-07 16:00] VITALS: BP 127/56
[2016-08-07 20:50] VITALS: BP 119/48
[2016-08-08] VITALS: BP 152/72
[2016-08-08] MEDS: LORazepam Inj 2mg/ml 1ml IV PRN ×4 (00:39→22:16)
[2016-08-08 04:00] VITALS: BP 122/71
[2016-08-08 08:21] VITALS: BP 108/76
[2016-08-08] MEDS: Heparin 5000 units/ml inj SUBQ SCH ×2 (09:01→22:20)
[2016-08-08] MEDS: Digoxin Elixir 0.125mg GT SCH (09:02)
[2016-08-08] MEDS: Colistin for inhalation INH SCH ×2 (09:24→21:03)
--- NOTE | 2016-08-08 09:51 | Pulmonology Progress Note ---
Assessment/Plan Assessment/Plan IMPRESSION: 1. History of tongue cancer. 2. Evidence of bilateral pleural effusion. 3. Respiratory failure. 4. Acute respiratory acidosis. 5. Hypoxemia. 6. Evidence of transient hypotension. 7. Leukocytosis. 8. Possible sepsis. 9. Significant lactic acidemia 10. Elevated liver enzymes. 11. Elevated natriuretic peptide. 12. Evidence of anemia. 13. Failure to thrive. 14. Atrial fibrillation, paroxysmal. PLAN IV antibiotics noted respiratory care as is oxygen therapy suction as needed appears comfortable ID follow up reviewed monitor hemodynamics and assess monitor trach and airway and secretions awaiting bed at subacute stabilize and transfer back to subacute per son's choice impression, plan, and exam edited and reviewed in detail care discussed with RN Subjective ROS Limited/Unobtainable: Yes Allergies: Coded Allergies: PENICILLINS (Verified Allergy, Unknown, 07/31/16) Subjective care noted and reviewed dc planning discussed awaiting family decision Objective Last 24 Hour Vital Signs Date Time Temp Pulse Resp B/P Pulse Ox O2 Delivery O2 Flow Rate FiO2 08/08/16 09:31 97 14 100 Mechanical Ventilator 30 08/08/16 09:30 30 08/08/16 09:27 93 14 100 Mechanical Ventilator 30 08/08/16 09:02 88 08/08/16 09:01 82 14 30 08/08/16 08:21 97.4 88 16 108/76 99 Mechanical Ventilator 08/08/16 07:20 88 16 30 08/08/16 05:18 82 14 30 08/08/16 04:00 82 08/08/16 04:00 82 08/08/16 04:00 97.8 85 15 122/71 100 Mechanical Ventilator 30 08/08/16 04:00 30 08/08/16 02:36 85 14 30 08/08/16 01:01 81 14 30 08/08/16 00:00 97.4 88 14 152/72 100 Mechanical Ventilator 30 08/08/16 00:00 30 08/08/16 00:00 85 08/07/16 23:20 86 14 30 08/07/16 22:18 87 17 100 Mechanical Ventilator 30 08/07/16 22:07 30 08/07/16 22:06 84 14 100 Mechanical Ventilator 30 08/07/16 22:05 84 14 30 08/07/16 20:50 98.0 85 14 119/48 99 Mechanical Ventilator 30 08/07/16 20:00 30 08/07/16 19:55 83 08/07/16 19:27 87 14 30 08/07/16 17:07 112 14 30 08/07/16 16:00 30 08/07/16 16:00 98.0 96 14 127/56 97 Nasal Cannula 08/07/16 15:46 92 08/07/16 14:56 100 14 30 08/07/16 13:10 113 18 30 08/07/16 12:00 85 08/07/16 12:00 30 08/07/16 12:00 97.9 90 14 118/61 100 Mechanical Ventilator 30 08/07/16 11:05 109 16 100 Mechanical Ventilator 30 08/07/16 10:50 30 08/07/16 10:50 103 15 100 Mechanical Ventilator 30 08/07/16 10:50 101 14 30 Intake and Output 08/07/16 08/08/16 19:00 07:00 Intake Total 560 ml 490 ml Output Total 2300 ml 1351 ml Balance -1740 ml -861 ml Free Water 50 ml 50 ml Tube Feeding 480 ml 440 ml Other 30 ml Output Urine Total 2300 ml 1350 ml Stool Total 1 ml # Bowel Movements 1 1 Objective GENERAL: A well-developed female, chronically ill. HEENT: Negative. Pupils are sluggish, but reactive. NECK: Supple. Some deformity noted. The patient has a tracheostomy in the midline. Carotids are 2+. LUNGS: Coarse breath sounds. Moderate air entry. without change CARDIAC: Normal S1 and S2. Regular rhythm without murmurs, rubs, or gallops. ABDOMEN: Soft, nontender, and nondistended. No hepatosplenomegaly. EXTREMITIES: No cyanosis or clubbing. There is trace edema. Degenerative joint disease. NEUROLOGICAL: Reduced LOC. reviewed and edited Current Medications Medications (Trade) Dose Ordered Sig/Josiah Route PRN Reason Start Time Stop Time Status Last Admin Dose Admin Acetaminophen (Tylenol) 650 mg Q4H PRN ORAL Mild Pain/Temp > 100.5 08/07/16 13:15 09/06/16 13:14 Amitriptyline HCl (Elavil) 10 mg BEDTIME ORAL 08/06/16 21:00 09/05/16 20:59 08/07/16 20:41 Colistimethate Sodium (Colistin *inhalation use only*) 75 mg Q12HR@10,22 INH 08/04/16 12:00 08/11/16 11:59 08/08/16 09:24 Digoxin (Lanoxin) 0.25 mg DAILY GT 07/31/16 12:30 08/30/16 12:29 08/08/16 09:02 Furosemide (Lasix) 40 mg DAILY IV 08/06/16 09:00 09/05/16 08:59 08/08/16 08:59 Heparin Sodium (Porcine) (Heparin 5000 units/ml) 5,000 units EVERY 12 HOURS SUBQ 08/01/16 21:00 08/31/16 20:59 08/08/16 09:01 Lorazepam (Ativan 2mg/ml 1ml) 1 mg Q3H PRN IV For Anxiety 08/07/16 12:00 08/14/16 11:59 08/08/16 09:02 Ondansetron HCl (Zofran) 4 mg Q6H PRN IVP Nausea & Vomiting 07/31/16 12:30 08/30/16 12:29 08/06/16 10:06 MARCY MAJOR Aug 08, 2016 09:51
--- NOTE | 2016-08-08 10:53 | Infectious Diseases Prog Note ---
Assessment/Plan Assessment/Plan antibiotics : inhaled colistin A 1. klebsiella pneumonia 2. leucocytosis resolved 3. respiratory failure 4. tongue squamous cell carcinoma P 1. continue inhaled colistin 2 more days 2. will follow up cultures Subjective ROS Limited/Unobtainable: Yes Allergies: Coded Allergies: PENICILLINS (Verified Allergy, Unknown, 07/31/16) Objective Vital Signs Last 24 Hour Vital Signs Date Time Temp Pulse Resp B/P Pulse Ox O2 Delivery O2 Flow Rate FiO2 08/08/16 09:31 97 14 100 Mechanical Ventilator 30 08/08/16 09:30 30 08/08/16 09:27 93 14 100 Mechanical Ventilator 30 08/08/16 09:02 88 08/08/16 09:01 82 14 30 08/08/16 08:21 97.4 88 16 108/76 99 Mechanical Ventilator 08/08/16 07:20 88 16 30 08/08/16 05:18 82 14 30 08/08/16 04:00 82 08/08/16 04:00 82 08/08/16 04:00 97.8 85 15 122/71 100 Mechanical Ventilator 30 08/08/16 04:00 30 08/08/16 02:36 85 14 30 08/08/16 01:01 81 14 30 08/08/16 00:00 97.4 88 14 152/72 100 Mechanical Ventilator 30 08/08/16 00:00 30 08/08/16 00:00 85 08/07/16 23:20 86 14 30 08/07/16 22:18 87 17 100 Mechanical Ventilator 30 08/07/16 22:07 30 08/07/16 22:06 84 14 100 Mechanical Ventilator 30 08/07/16 22:05 84 14 30 08/07/16 20:50 98.0 85 14 119/48 99 Mechanical Ventilator 30 08/07/16 20:00 30 08/07/16 19:55 83 08/07/16 19:27 87 14 30 08/07/16 17:07 112 14 30 08/07/16 16:00 30 08/07/16 16:00 98.0 96 14 127/56 97 Nasal Cannula 08/07/16 15:46 92 08/07/16 14:56 100 14 30 08/07/16 13:10 113 18 30 08/07/16 12:00 85 08/07/16 12:00 30 08/07/16 12:00 97.9 90 14 118/61 100 Mechanical Ventilator 30 08/07/16 11:05 109 16 100 Mechanical Ventilator 30 Height (Feet): 5 Height (Inches): 2.00 Weight (Pounds): 120 HEENT: status post trach Respiratory/Chest: lungs clear Cardiovascular: normal rate, regular rhythm, no gallop/murmur Abdomen: soft, non tender, other - GT Extremities: no edema MARA BLOCK Aug 08, 2016 10:53
[2016-08-08 11:29] VITALS: BP 103/56
--- NOTE | 2016-08-08 12:03 | Diagnostic Imaging Report ---
APPROVED REPORT CPT Code: 31985 Present Symptoms Upper Extremity Pain: Right Left Comments: Internal jugular vein not imaged bilaterally due to collar on the patient's neck. BILATERAL UPPER EXTREMITY: Imaging reveals patency of the subclavian, axillary and brachial veins. The cephalic and basilic veins are also patent. Doppler indicates normal spontaneous flow within these venous segments, bilaterally. The internal jugular vein was not imaged bilaterally due to neck collar.
--- NOTE | 2016-08-08 12:18 | General Progress Note ---
Assessment/Plan Problem List: (1) Respiratory distress ICD Codes: R06.00 - Dyspnea, unspecified SNOMED: 475893883 (2) Pneumonia ICD Codes: J18.9 - Pneumonia, unspecified organism SNOMED: 605273995 (3) SCC (squamous cell carcinoma) ICD Codes: C44.92 - Squamous cell carcinoma of skin, unspecified SNOMED: 769605013 (4) Tracheostomy in place ICD Codes: Z93.0 - Tracheostomy status SNOMED: 539466289 Assessment/Plan abx per id follow up cultures resp care suctioning wean as able feeds dc ivf lasix x 1 monitor h/h/labs- diuresis replace lytes as needed dc planning. son looking at facilities. message left regarding impending dc Subjective ROS Limited/Unobtainable: Yes Constitutional: Reports: malaise, weakness HEENT: Reports: no symptoms Cardiovascular: Reports: edema Respiratory: Reports: shortness of breath Gastrointestinal/Abdominal: Reports: difficulty swallowing Genitourinary: Reports: no symptoms Neurologic/Psychiatric: Reports: no symptoms Endocrine: Reports: no symptoms Hematologic/Lymphatic: Reports: anemia Allergies: Coded Allergies: PENICILLINS (Verified Allergy, Unknown, 07/31/16) All Systems: reviewed and negative except above Subjective on the vent. no events, tolerating feeds. decrease edema. no distress. on the vent. ID noted. Objective Last 24 Hour Vital Signs Date Time Temp Pulse Resp B/P Pulse Ox O2 Delivery O2 Flow Rate FiO2 08/08/16 11:29 97.2 84 16 103/56 97 Mechanical Ventilator 08/08/16 09:31 97 14 100 Mechanical Ventilator 30 08/08/16 09:30 30 08/08/16 09:27 93 14 100 Mechanical Ventilator 30 08/08/16 09:02 88 08/08/16 09:01 82 14 30 08/08/16 08:21 97.4 88 16 108/76 99 Mechanical Ventilator 08/08/16 08:00 78 08/08/16 08:00 30 08/08/16 07:20 88 16 30 08/08/16 05:18 82 14 30 08/08/16 04:00 82 08/08/16 04:00 82 08/08/16 04:00 97.8 85 15 122/71 100 Mechanical Ventilator 30 08/08/16 04:00 30 08/08/16 02:36 85 14 30 08/08/16 01:01 81 14 30 08/08/16 00:00 97.4 88 14 152/72 100 Mechanical Ventilator 30 08/08/16 00:00 30 08/08/16 00:00 85 08/07/16 23:20 86 14 30 08/07/16 22:18 87 17 100 Mechanical Ventilator 30 08/07/16 22:07 30 08/07/16 22:06 84 14 100 Mechanical Ventilator 30 08/07/16 22:05 84 14 30 08/07/16 20:50 98.0 85 14 119/48 99 Mechanical Ventilator 30 08/07/16 20:00 30 08/07/16 19:55 83 08/07/16 19:27 87 14 30 08/07/16 17:07 112 14 30 08/07/16 16:00 30 08/07/16 16:00 98.0 96 14 127/56 97 Nasal Cannula 08/07/16 15:46 92 08/07/16 14:56 100 14 30 08/07/16 13:10 113 18 30 Intake and Output 08/07/16 08/08/16 19:00 07:00 Intake Total 560 ml 490 ml Output Total 2300 ml 1351 ml Balance -1740 ml -861 ml Free Water 50 ml 50 ml Tube Feeding 480 ml 440 ml Other 30 ml Output Urine Total 2300 ml 1350 ml Stool Total 1 ml # Bowel Movements 1 1 Height (Feet): 5 Height (Inches): 2.00 Weight (Pounds): 120 Objective General Appearance: WD/WN, lethargic, mild distress Neck: supple Cardiovascular: regular rhythm Respiratory/Chest: rhonchi - bilaterally Abdomen: normal bowel sounds, non tender, soft, no organomegaly, no mass Edema: +generalized edema noted Neurologic: disoriented, aphasia CHRISTINA HAMMOND Aug 08, 2016 12:18
[2016-08-08 16:00] VITALS: BP 119/67
[2016-08-08 20:11] VITALS: BP 122/65
[2016-08-09] VITALS: BP 108/49
[2016-08-09 04:00] VITALS: BP 108/45
[2016-08-09 06:02] LABS: BASOPHILS % (AUTO) 0.5 % (0.0-2.0); EOSINOPHILS % (AUTO) 3.8 % (0.0-3.0); MEAN CORPUSCULAR HEMOGLOBIN 30.7 PG (27.0-31.0); MEAN CORPUSCULAR HGB CONC 33.3 G/DL (32.0-36.0); MEAN CORPUSCULAR VOLUME 92 FL (80-99); MEAN PLATELET VOLUME 6.6 FL (6.5-10.1); MONOCYTES % (AUTO) 8.8 % (1.0-10.0); NEUTROPHILS % (AUTO) 70.9 % (45.0-75.0); PLATELET COUNT 266 K/UL (150-450); RED BLOOD COUNT 4.06 M/UL (4.20-5.40); RED CELL DISTRIBUTION WIDTH 13.8 % (11.6-14.8); WHITE BLOOD COUNT 10.8 K/UL (4.8-10.8)
[2016-08-09 06:54] LABS: ALANINE AMINOTRANSFERASE 41 U/L (3-33); ALBUMIN/GLOBULIN RATIO 0.7 (1.0-2.7); ANION GAP 14 (5-15); ASPARTATE AMINO TRANSFERASE 49 U/L (5-40); CARBON DIOXIDE 32 mEQ/L (20-30); CHLORIDE 92 mEQ/L (98-107); CREATININE 0.6 mg/dL (0.5-0.9); HEMOLYSIS 2; POTASSIUM 3.7 mEQ/L (3.4-4.9); SODIUM 138 mEQ/L (135-145); TOTAL PROTEIN 6.1 g/dL (6.6-8.7)
[2016-08-09 08:00] VITALS: BP 88/52
--- NOTE | 2016-08-09 08:14 | Pulmonology Progress Note ---
Assessment/Plan Assessment/Plan IMPRESSION: 1. History of tongue cancer. 2. Evidence of bilateral pleural effusion. 3. Respiratory failure. 4. Acute respiratory acidosis. 5. Hypoxemia. 6. Evidence of transient hypotension. 7. Leukocytosis. 8. Possible sepsis. 9. Significant lactic acidemia 10. Elevated liver enzymes. 11. Elevated natriuretic peptide. 12. Evidence of anemia. 13. Failure to thrive. 14. Atrial fibrillation, paroxysmal. 15. [facility] PLAN IV antibiotics per ID isolation respiratory care as is oxygen therapy suction as needed appears comfortable ID follow up reviewed monitor hemodynamics and assess monitor trach and airway and secretions awaiting bed at subacute and clearance by ID stabilize and transfer back to subacute per son's choice impression, plan, and exam edited and reviewed in detail care discussed with RN Subjective ROS Limited/Unobtainable: Yes Allergies: Coded Allergies: PENICILLINS (Verified Allergy, Unknown, 07/31/16) Subjective care noted and reviewed dc planning discussed on isolation Objective Last 24 Hour Vital Signs Date Time Temp Pulse Resp B/P Pulse Ox O2 Delivery O2 Flow Rate FiO2 08/09/16 08:00 30 08/09/16 07:13 74 14 30 08/09/16 05:00 81 14 30 08/09/16 04:13 95 08/09/16 04:00 10.0 30 08/09/16 04:00 98.0 86 14 108/45 97 Mechanical Ventilator 30 08/09/16 02:57 99 14 30 08/09/16 00:59 97 14 30 08/09/16 00:00 10.0 30 08/09/16 00:00 98.0 92 14 108/49 98 Mechanical Ventilator 30 08/08/16 23:54 95 08/08/16 23:00 99 14 30 08/08/16 21:12 95 14 100 Mechanical Ventilator 30 08/08/16 21:04 30 08/08/16 21:04 95 14 99 Mechanical Ventilator 15.0 30 08/08/16 21:04 95 14 30 08/08/16 20:39 83 08/08/16 20:11 97.8 85 16 122/65 98 Mechanical Ventilator 30 08/08/16 20:00 10.0 30 08/08/16 18:50 84 16 30 08/08/16 16:56 86 14 30 08/08/16 16:00 30 08/08/16 16:00 84 08/08/16 16:00 97.7 84 15 119/67 98 Mechanical Ventilator 30 08/08/16 15:42 86 17 30 08/08/16 14:36 84 14 30 08/08/16 12:33 93 14 30 08/08/16 12:00 30 08/08/16 12:00 95 08/08/16 11:29 97.2 84 16 103/56 97 Mechanical Ventilator 08/08/16 10:32 83 14 30 08/08/16 09:31 97 14 100 Mechanical Ventilator 30 08/08/16 09:30 30 08/08/16 09:27 93 14 100 Mechanical Ventilator 30 08/08/16 09:02 88 08/08/16 09:01 82 14 30 08/08/16 08:21 97.4 88 16 108/76 99 Mechanical Ventilator Intake and Output 08/08/16 08/09/16 19:00 07:00 Intake Total 500 ml 480 ml Output Total 1700 ml 550 ml Balance -1200 ml -70 ml Intake Oral 0 ml Free Water 100 ml Tube Feeding 400 ml 480 ml Output Urine Total 1700 ml 550 ml # Bowel Movements 3 2 Objective GENERAL: A well-developed female, chronically ill. HEENT: Negative. Pupils are sluggish, but reactive. NECK: Supple. Some deformity noted. The patient has a tracheostomy in the midline. Carotids are 2+. LUNGS: Coarse breath sounds. Moderate air entry. without change; no wheeze CARDIAC: Normal S1 and S2. Regular rhythm without murmurs, rubs, or gallops. ABDOMEN: Soft, nontender, and nondistended. No hepatosplenomegaly. EXTREMITIES: No cyanosis or clubbing. There is trace edema. Degenerative joint disease. NEUROLOGICAL: Reduced LOC. reviewed and edited Laboratory Tests 08/09/16 03:25: White Blood Count 10.8, Red Blood Count 4.06L, Hemoglobin 12.5, Hematocrit 37.4 , Mean Corpuscular Volume 92, Mean Corpuscular Hemoglobin 30.7, Mean Corpuscular Hemoglobin Concent 33.3, Red Cell Distribution Width 13.8, Platelet Count 266, Mean Platelet Volume 6.6, Neutrophils (%) (Auto) 70.9, Lymphocytes (% ) (Auto) 16.0L, Monocytes (%) (Auto) 8.8, Eosinophils (%) (Auto) 3.8H, Basophils (%) (Auto) 0.5, Sodium Level 138, Potassium Level 3.7, Chloride Level 92L, Carbon Dioxide Level 32H, Anion Gap 14, Blood Urea Nitrogen 19, Creatinine 0.6, Estimat Glomerular Filtration Rate , Glucose Level 109H, Calcium Level 9.0 , Total Bilirubin 0.3, Aspartate Amino Transf (AST/SGOT) 49H, Alanine Aminotransferase (ALT/SGPT) 41H, Alkaline Phosphatase 85, Total Protein 6.1L, Albumin 2.6L, Globulin 3.5, Albumin/Globulin Ratio 0.7L Current Medications Medications (Trade) Dose Ordered Sig/Josiah Route PRN Reason Start Time Stop Time Status Last Admin Dose Admin Acetaminophen (Tylenol) 650 mg Q4H PRN ORAL Mild Pain/Temp > 100.5 08/07/16 13:15 09/06/16 13:14 Amitriptyline HCl (Elavil) 10 mg BEDTIME ORAL 08/06/16 21:00 09/05/16 20:59 08/08/16 22:16 Colistimethate Sodium (Colistin *inhalation use only*) 75 mg Q12HR@10,22 INH 08/04/16 12:00 08/11/16 11:59 08/08/16 21:03 Digoxin (Lanoxin) 0.25 mg DAILY GT 07/31/16 12:30 08/30/16 12:29 08/08/16 09:02 Furosemide (Lasix) 40 mg DAILY IV 08/06/16 09:00 09/05/16 08:59 08/08/16 08:59 Heparin Sodium (Porcine) (Heparin 5000 units/ml) 5,000 units EVERY 12 HOURS SUBQ 08/01/16 21:00 08/31/16 20:59 08/08/16 22:20 Lorazepam (Ativan 2mg/ml 1ml) 1 mg Q3H PRN IV For Anxiety 08/07/16 12:00 08/14/16 11:59 08/08/16 22:16 Ondansetron HCl (Zofran) 4 mg Q6H PRN IVP Nausea & Vomiting 07/31/16 12:30 08/30/16 12:29 08/06/16 10:06 MARCY MAJOR Aug 09, 2016 08:14
--- NOTE | 2016-08-09 08:56 | General Progress Note ---
Assessment/Plan Problem List: (1) Respiratory distress ICD Codes: R06.00 - Dyspnea, unspecified SNOMED: 539893645 (2) Pneumonia ICD Codes: J18.9 - Pneumonia, unspecified organism SNOMED: 571806877 (3) SCC (squamous cell carcinoma) ICD Codes: C44.92 - Squamous cell carcinoma of skin, unspecified SNOMED: 859444654 (4) Tracheostomy in place ICD Codes: Z93.0 - Tracheostomy status SNOMED: 938307334 Status: stable, progressing Assessment/Plan abx per id follow up cultures resp care suctioning wean as able feeds dc ivf monitor h/h/labs- diuresis replace lytes as needed dc planning. son looking at facilities. message left regarding impending dc d/w case maker who will refer to racquel stephen Subjective ROS Limited/Unobtainable: No Constitutional: Reports: weakness HEENT: Reports: no symptoms Cardiovascular: Reports: no symptoms Respiratory: Reports: cough, shortness of breath Gastrointestinal/Abdominal: Reports: difficulty swallowing Genitourinary: Reports: no symptoms Neurologic/Psychiatric: Reports: no symptoms Endocrine: Reports: no symptoms Hematologic/Lymphatic: Reports: no symptoms Allergies: Coded Allergies: PENICILLINS (Verified Allergy, Unknown, 07/31/16) All Systems: reviewed and negative except above Subjective on the vent. no events, tolerating feeds. decreased edema. no distress. on the vent. ID noted. [facility] unable to accept pt due to [facility]. son requesting racquel stephen Objective Last 24 Hour Vital Signs Date Time Temp Pulse Resp B/P Pulse Ox O2 Delivery O2 Flow Rate FiO2 08/09/16 08:00 30 08/09/16 07:13 74 14 30 08/09/16 05:00 81 14 30 08/09/16 04:13 95 08/09/16 04:00 10.0 30 08/09/16 04:00 98.0 86 14 108/45 97 Mechanical Ventilator 30 08/09/16 02:57 99 14 30 08/09/16 00:59 97 14 30 08/09/16 00:00 10.0 30 08/09/16 00:00 98.0 92 14 108/49 98 Mechanical Ventilator 30 08/08/16 23:54 95 08/08/16 23:00 99 14 30 08/08/16 21:12 95 14 100 Mechanical Ventilator 30 08/08/16 21:04 30 08/08/16 21:04 95 14 99 Mechanical Ventilator 15.0 30 08/08/16 21:04 95 14 30 08/08/16 20:39 83 08/08/16 20:11 97.8 85 16 122/65 98 Mechanical Ventilator 30 08/08/16 20:00 10.0 30 08/08/16 18:50 84 16 30 08/08/16 16:56 86 14 30 08/08/16 16:00 30 08/08/16 16:00 84 08/08/16 16:00 97.7 84 15 119/67 98 Mechanical Ventilator 30 08/08/16 15:42 86 17 30 08/08/16 14:36 84 14 30 08/08/16 12:33 93 14 30 08/08/16 12:00 30 08/08/16 12:00 95 08/08/16 11:29 97.2 84 16 103/56 97 Mechanical Ventilator 08/08/16 10:32 83 14 30 08/08/16 09:31 97 14 100 Mechanical Ventilator 30 08/08/16 09:30 30 08/08/16 09:27 93 14 100 Mechanical Ventilator 30 08/08/16 09:02 88 08/08/16 09:01 82 14 30 Intake and Output 08/08/16 08/09/16 19:00 07:00 Intake Total 500 ml 480 ml Output Total 1700 ml 550 ml Balance -1200 ml -70 ml Intake Oral 0 ml Free Water 100 ml Tube Feeding 400 ml 480 ml Output Urine Total 1700 ml 550 ml # Bowel Movements 3 2 Laboratory Tests 08/09/16 03:25: White Blood Count 10.8, Red Blood Count 4.06L, Hemoglobin 12.5, Hematocrit 37.4 , Mean Corpuscular Volume 92, Mean Corpuscular Hemoglobin 30.7, Mean Corpuscular Hemoglobin Concent 33.3, Red Cell Distribution Width 13.8, Platelet Count 266, Mean Platelet Volume 6.6, Neutrophils (%) (Auto) 70.9, Lymphocytes (% ) (Auto) 16.0L, Monocytes (%) (Auto) 8.8, Eosinophils (%) (Auto) 3.8H, Basophils (%) (Auto) 0.5, Sodium Level 138, Potassium Level 3.7, Chloride Level 92L, Carbon Dioxide Level 32H, Anion Gap 14, Blood Urea Nitrogen 19, Creatinine 0.6, Estimat Glomerular Filtration Rate , Glucose Level 109H, Calcium Level 9.0 , Total Bilirubin 0.3, Aspartate Amino Transf (AST/SGOT) 49H, Alanine Aminotransferase (ALT/SGPT) 41H, Alkaline Phosphatase 85, Total Protein 6.1L, Albumin 2.6L, Globulin 3.5, Albumin/Globulin Ratio 0.7L Height (Feet): 5 Height (Inches): 2.00 Weight (Pounds): 120 Objective General Appearance: WD/WN, lethargic, mild distress Neck: supple Cardiovascular: regular rhythm Respiratory/Chest: rhonchi - bilaterally Abdomen: normal bowel sounds, non tender, soft, no organomegaly, no mass Edema: +generalized edema noted Neurologic: disoriented, aphasia CHRISTINA HAMMOND Aug 09, 2016 08:56
[2016-08-09] MEDS: Digoxin Elixir 0.125mg GT SCH (09:04)
[2016-08-09] MEDS: Heparin 5000 units/ml inj SUBQ SCH ×2 (09:05→20:46)
[2016-08-09] MEDS: Colistin for inhalation INH SCH ×2 (09:30→20:51)
[2016-08-09 12:00] VITALS: BP 103/69
--- NOTE | 2016-08-09 15:23 | Infectious Diseases Prog Note ---
Assessment/Plan Assessment/Plan A: Pneumonia with KPC VDRF Tongue SCC Anemia PAF P; continue Colistin inhaler X 1 day case was D/W son Subjective ROS Limited/Unobtainable: Yes Constitutional: Reports: no symptoms Allergies: Coded Allergies: PENICILLINS (Verified Allergy, Unknown, 07/31/16) Objective Vital Signs Last 24 Hour Vital Signs Date Time Temp Pulse Resp B/P Pulse Ox O2 Delivery O2 Flow Rate FiO2 08/09/16 15:02 79 14 30 08/09/16 13:06 71 14 30 08/09/16 12:00 30 08/09/16 12:00 85 08/09/16 12:00 97.7 78 14 103/69 98 Mechanical Ventilator 30 08/09/16 10:55 76 14 30 08/09/16 09:40 92 14 100 Mechanical Ventilator 30 08/09/16 09:30 89 14 98 Mechanical Ventilator 30 08/09/16 09:30 30 08/09/16 09:04 76 08/09/16 08:56 83 14 30 08/09/16 08:00 97.3 76 15 88/52 100 Mechanical Ventilator 30 08/09/16 08:00 30 08/09/16 08:00 75 08/09/16 07:13 74 14 30 08/09/16 05:00 81 14 30 08/09/16 04:13 95 08/09/16 04:00 10.0 30 08/09/16 04:00 98.0 86 14 108/45 97 Mechanical Ventilator 30 08/09/16 02:57 99 14 30 08/09/16 00:59 97 14 30 08/09/16 00:00 10.0 30 08/09/16 00:00 98.0 92 14 108/49 98 Mechanical Ventilator 30 08/08/16 23:54 95 08/08/16 23:00 99 14 30 08/08/16 21:12 95 14 100 Mechanical Ventilator 30 08/08/16 21:04 30 08/08/16 21:04 95 14 99 Mechanical Ventilator 15.0 30 08/08/16 21:04 95 14 30 08/08/16 20:39 83 08/08/16 20:11 97.8 85 16 122/65 98 Mechanical Ventilator 30 08/08/16 20:00 10.0 30 08/08/16 18:50 84 16 30 08/08/16 16:56 86 14 30 08/08/16 16:00 30 08/08/16 16:00 84 08/08/16 16:00 97.7 84 15 119/67 98 Mechanical Ventilator 30 08/08/16 15:42 86 17 30 Height (Feet): 5 Height (Inches): 2.00 Weight (Pounds): 120 General Appearance: no acute distress HEENT: status post trach Respiratory/Chest: rhonchi - bilaterally, other - on ventilator Cardiovascular: normal rate Abdomen: soft, non tender, other - GT feeding Neurologic/Psychiatric: alert, responsive Laboratory Tests Test 08/09/16 03:25 White Blood Count 10.8 K/UL (4.8-10.8) Red Blood Count 4.06 M/UL (4.20-5.40) L Hemoglobin 12.5 G/DL (12.0-16.0) Hematocrit 37.4 % (37.0-47.0) Mean Corpuscular Volume 92 FL (80-99) Mean Corpuscular Hemoglobin 30.7 PG (27.0-31.0) Mean Corpuscular Hemoglobin Concent 33.3 G/DL (32.0-36.0) Red Cell Distribution Width 13.8 % (11.6-14.8) Platelet Count 266 K/UL (150-450) Mean Platelet Volume 6.6 FL (6.5-10.1) Neutrophils (%) (Auto) 70.9 % (45.0-75.0) Lymphocytes (%) (Auto) 16.0 % (20.0-45.0) L Monocytes (%) (Auto) 8.8 % (1.0-10.0) Eosinophils (%) (Auto) 3.8 % (0.0-3.0) H Basophils (%) (Auto) 0.5 % (0.0-2.0) Sodium Level 138 mEQ/L (135-145) Potassium Level 3.7 mEQ/L (3.4-4.9) Chloride Level 92 mEQ/L (98-107) L Carbon Dioxide Level 32 mEQ/L (20-30) H Anion Gap 14 (5-15) Blood Urea Nitrogen 19 mg/dL (7-23) Creatinine 0.6 mg/dL (0.5-0.9) Estimat Glomerular Filtration Rate mL/min (>60) Glucose Level 109 mg/dL (74-106) H Calcium Level 9.0 mg/dL (8.6-10.2) Total Bilirubin 0.3 mg/dL (0.0-1.2) Aspartate Amino Transf (AST/SGOT) 49 U/L (5-40) H Alanine Aminotransferase (ALT/SGPT) 41 U/L (3-33) H Alkaline Phosphatase 85 U/L (35-104) Total Protein 6.1 g/dL (6.6-8.7) L Albumin 2.6 g/dL (3.5-5.2) L Globulin 3.5 g/dL Albumin/Globulin Ratio 0.7 (1.0-2.7) L Current Medications Medications (Trade) Dose Ordered Sig/Josiah Route PRN Reason Start Time Stop Time Status Last Admin Dose Admin Acetaminophen (Tylenol) 650 mg Q4H PRN ORAL Mild Pain/Temp > 100.5 08/07/16 13:15 09/06/16 13:14 Amitriptyline HCl (Elavil) 10 mg BEDTIME ORAL 08/06/16 21:00 09/05/16 20:59 08/08/16 22:16 Colistimethate Sodium (Colistin *inhalation use only*) 75 mg Q12HR@10,22 INH 08/04/16 12:00 08/11/16 11:59 08/09/16 09:30 Digoxin (Lanoxin) 0.25 mg DAILY GT 07/31/16 12:30 08/30/16 12:29 08/09/16 09:04 Furosemide (Lasix) 40 mg DAILY IV 08/06/16 09:00 09/05/16 08:59 08/08/16 08:59 Heparin Sodium (Porcine) (Heparin 5000 units/ml) 5,000 units EVERY 12 HOURS SUBQ 08/01/16 21:00 08/31/16 20:59 08/09/16 09:05 Lorazepam (Ativan 2mg/ml 1ml) 1 mg Q3H PRN IV For Anxiety 08/07/16 12:00 08/14/16 11:59 08/08/16 22:16 Ondansetron HCl (Zofran) 4 mg Q6H PRN IVP Nausea & Vomiting 07/31/16 12:30 08/30/16 12:29 08/06/16 10:06 JENNIFER MCKEE Aug 09, 2016 15:23
[2016-08-09 16:00] VITALS: BP 108/60
[2016-08-09] MEDS ORDERED: Sterile Water Irrig 1000ml IRRIG ONE (17:38)
[2016-08-09 19:00] VITALS: BP 112/64
[2016-08-10] VITALS: BP 99/68
[2016-08-10 04:00] VITALS: BP 109/59
[2016-08-10 08:00] VITALS: BP 116/50
[2016-08-10] MEDS: LORazepam Inj 2mg/ml 1ml IV PRN (08:05)
--- NOTE | 2016-08-10 08:37 | Infectious Diseases Prog Note ---
Assessment/Plan Assessment/Plan A: Pneumonia with KPC s/p Rx VDRF Tongue SCC Anemia PAF P; discontinue Colistin inhaler Subjective ROS Limited/Unobtainable: Yes Allergies: Coded Allergies: PENICILLINS (Verified Allergy, Unknown, 07/31/16) Objective Vital Signs Last 24 Hour Vital Signs Date Time Temp Pulse Resp B/P Pulse Ox O2 Delivery O2 Flow Rate FiO2 08/10/16 07:16 79 14 30 08/10/16 05:03 81 14 30 08/10/16 04:00 97.4 54 15 109/59 100 Mechanical Ventilator 30 08/10/16 04:00 30 08/10/16 04:00 86 08/10/16 03:18 75 14 30 08/10/16 01:07 87 14 30 08/10/16 00:00 87 08/10/16 00:00 97.5 59 14 99/68 100 Mechanical Ventilator 30 08/10/16 00:00 30 08/09/16 22:47 85 14 30 08/09/16 21:15 87 17 100 Mechanical Ventilator 30 08/09/16 21:00 30 08/09/16 21:00 83 14 98 Mechanical Ventilator 30 08/09/16 20:59 83 14 30 08/09/16 20:00 81 08/09/16 20:00 30 08/09/16 19:25 86 14 30 08/09/16 19:00 97.9 95 20 112/64 97 Mechanical Ventilator 30 08/09/16 17:24 81 14 30 08/09/16 16:00 97.3 76 20 108/60 98 Mechanical Ventilator 30 08/09/16 16:00 30 08/09/16 16:00 85 08/09/16 15:02 79 14 30 08/09/16 13:06 71 14 30 08/09/16 12:00 30 08/09/16 12:00 85 08/09/16 12:00 97.7 78 14 103/69 98 Mechanical Ventilator 30 08/09/16 10:55 76 14 30 08/09/16 09:40 92 14 100 Mechanical Ventilator 30 08/09/16 09:30 89 14 98 Mechanical Ventilator 30 08/09/16 09:30 30 08/09/16 09:04 76 08/09/16 08:56 83 14 30 Height (Feet): 5 Height (Inches): 2.00 Weight (Pounds): 120 General Appearance: no acute distress HEENT: status post trach Respiratory/Chest: other - on ventilator, coarse sounds Cardiovascular: normal rate Abdomen: soft, non tender Extremities: no edema Neurologic/Psychiatric: other - sleeping Current Medications Medications (Trade) Dose Ordered Sig/Josiah Route PRN Reason Start Time Stop Time Status Last Admin Dose Admin Acetaminophen (Tylenol) 650 mg Q4H PRN ORAL Mild Pain/Temp > 100.5 08/07/16 13:15 09/06/16 13:14 Amitriptyline HCl (Elavil) 10 mg BEDTIME ORAL 08/06/16 21:00 09/05/16 20:59 08/09/16 20:45 Colistimethate Sodium (Colistin *inhalation use only*) 75 mg Q12HR@10,22 INH 08/04/16 12:00 08/11/16 11:59 08/09/16 20:51 Digoxin (Lanoxin) 0.25 mg DAILY GT 07/31/16 12:30 08/30/16 12:29 08/09/16 09:04 Furosemide (Lasix) 40 mg DAILY IV 08/06/16 09:00 09/05/16 08:59 08/08/16 08:59 Heparin Sodium (Porcine) (Heparin 5000 units/ml) 5,000 units EVERY 12 HOURS SUBQ 08/01/16 21:00 08/31/16 20:59 08/09/16 20:46 Lorazepam (Ativan 2mg/ml 1ml) 1 mg Q3H PRN IV For Anxiety 08/07/16 12:00 08/14/16 11:59 08/10/16 08:05 Ondansetron HCl (Zofran) 4 mg Q6H PRN IVP Nausea & Vomiting 07/31/16 12:30 08/30/16 12:29 08/06/16 10:06 JENNIFER MCKEE Aug 10, 2016 08:37
--- NOTE | 2016-08-10 08:59 | Pulmonology Progress Note ---
Assessment/Plan Assessment/Plan IMPRESSION: 1. History of tongue cancer. 2. Evidence of bilateral pleural effusion. 3. Respiratory failure. 4. Acute respiratory acidosis. 5. Hypoxemia. 6. Evidence of transient hypotension. 7. Leukocytosis. 8. Possible sepsis. 9. Significant lactic acidemia 10. Elevated liver enzymes. 11. Elevated natriuretic peptide. 12. Evidence of anemia. 13. Failure to thrive. 14. Atrial fibrillation, paroxysmal. 15. [facility] PLAN exam without change isolation respiratory care as is oxygen therapy suction as needed appears comfortable ID follow up reviewed monitor hemodynamics and assess monitor trach and airway and secretions awaiting bed at [facility] consider wean stabilize and transfer back to subacute per son's choice impression, plan, and exam edited and reviewed in detail care discussed with RN Subjective Allergies: Coded Allergies: PENICILLINS (Verified Allergy, Unknown, 07/31/16) Subjective care noted and reviewed dc planning discussed on isolation for [facility] Objective Last 24 Hour Vital Signs Date Time Temp Pulse Resp B/P Pulse Ox O2 Delivery O2 Flow Rate FiO2 08/10/16 07:16 79 14 30 08/10/16 05:03 81 14 30 08/10/16 04:00 97.4 54 15 109/59 100 Mechanical Ventilator 30 08/10/16 04:00 30 08/10/16 04:00 86 08/10/16 03:18 75 14 30 08/10/16 01:07 87 14 30 08/10/16 00:00 87 08/10/16 00:00 97.5 59 14 99/68 100 Mechanical Ventilator 30 08/10/16 00:00 30 08/09/16 22:47 85 14 30 08/09/16 21:15 87 17 100 Mechanical Ventilator 30 08/09/16 21:00 30 08/09/16 21:00 83 14 98 Mechanical Ventilator 30 08/09/16 20:59 83 14 30 08/09/16 20:00 81 08/09/16 20:00 30 08/09/16 19:25 86 14 30 08/09/16 19:00 97.9 95 20 112/64 97 Mechanical Ventilator 30 08/09/16 17:24 81 14 30 08/09/16 16:00 97.3 76 20 108/60 98 Mechanical Ventilator 30 08/09/16 16:00 30 08/09/16 16:00 85 08/09/16 15:02 79 14 30 08/09/16 13:06 71 14 30 08/09/16 12:00 30 08/09/16 12:00 85 08/09/16 12:00 97.7 78 14 103/69 98 Mechanical Ventilator 30 08/09/16 10:55 76 14 30 08/09/16 09:40 92 14 100 Mechanical Ventilator 30 08/09/16 09:30 89 14 98 Mechanical Ventilator 30 08/09/16 09:30 30 08/09/16 09:04 76 Intake and Output 08/09/16 08/10/16 19:00 07:00 Intake Total 680 ml 580 ml Output Total 250 ml 600 ml Balance 430 ml -20 ml Free Water 200 ml 100 ml Tube Feeding 480 ml 480 ml Output Urine Total 250 ml 600 ml # Bowel Movements 1 4 Objective GENERAL: A well-developed female, chronically ill. HEENT: Negative. Pupils are sluggish, but reactive. NECK: Supple. Some deformity noted. The patient has a tracheostomy in the midline. Carotids are 2+. LUNGS: Coarse breath sounds. Moderate air entry. without change; no wheeze CARDIAC: Normal S1 and S2. Regular rhythm without murmurs, rubs, or gallops. ABDOMEN: Soft, nontender, and nondistended. No hepatosplenomegaly. EXTREMITIES: No cyanosis or clubbing. There is trace edema. Degenerative joint disease. NEUROLOGICAL: Reduced LOC. reviewed and edited Current Medications Medications (Trade) Dose Ordered Sig/Josiah Route PRN Reason Start Time Stop Time Status Last Admin Dose Admin Acetaminophen (Tylenol) 650 mg Q4H PRN ORAL Mild Pain/Temp > 100.5 08/07/16 13:15 09/06/16 13:14 Amitriptyline HCl (Elavil) 10 mg BEDTIME ORAL 08/06/16 21:00 09/05/16 20:59 08/09/16 20:45 Digoxin (Lanoxin) 0.25 mg DAILY GT 07/31/16 12:30 08/30/16 12:29 08/09/16 09:04 Furosemide (Lasix) 40 mg DAILY IV 08/06/16 09:00 09/05/16 08:59 08/08/16 08:59 Heparin Sodium (Porcine) (Heparin 5000 units/ml) 5,000 units EVERY 12 HOURS SUBQ 08/01/16 21:00 08/31/16 20:59 08/09/16 20:46 Lorazepam (Ativan 2mg/ml 1ml) 1 mg Q3H PRN IV For Anxiety 08/07/16 12:00 08/14/16 11:59 08/10/16 08:05 Ondansetron HCl (Zofran) 4 mg Q6H PRN IVP Nausea & Vomiting 07/31/16 12:30 08/30/16 12:29 08/06/16 10:06 MARCY MAJOR Aug 10, 2016 08:59
[2016-08-10] MEDS: Digoxin Elixir 0.125mg GT SCH (09:47)
[2016-08-10] MEDS: Heparin 5000 units/ml inj SUBQ SCH ×2 (09:50→21:11)
[2016-08-10 12:00] VITALS: BP 88/54
--- NOTE | 2016-08-10 14:44 | General Progress Note ---
Assessment/Plan Problem List: (1) Respiratory distress ICD Codes: R06.00 - Dyspnea, unspecified SNOMED: 271757426 (2) Pneumonia ICD Codes: J18.9 - Pneumonia, unspecified organism SNOMED: 031937799 (3) SCC (squamous cell carcinoma) ICD Codes: C44.92 - Squamous cell carcinoma of skin, unspecified SNOMED: 680752311 (4) Tracheostomy in place ICD Codes: Z93.0 - Tracheostomy status SNOMED: 171379157 Status: stable, progressing Assessment/Plan abx per id follow up cultures resp care suctioning wean as able feeds dc ivf monitor h/h/labs- diuresis replace lytes as needed dc planning. son looking at facilities. message left regarding impending dc d/w case picker who will refer to racquel stephen. await decision from racquel Subjective ROS Limited/Unobtainable: No Constitutional: Reports: malaise, weakness HEENT: Reports: no symptoms Cardiovascular: Reports: no symptoms Respiratory: Reports: cough, shortness of breath Gastrointestinal/Abdominal: Reports: difficulty swallowing, no symptoms Genitourinary: Reports: no symptoms Neurologic/Psychiatric: Reports: no symptoms Endocrine: Reports: no symptoms Hematologic/Lymphatic: Reports: anemia Allergies: Coded Allergies: PENICILLINS (Verified Allergy, Unknown, 07/31/16) Subjective on the vent. no events, tolerating feeds. decreased edema. no distress. on the vent. ID noted. [facility] unable to accept pt due to [facility]. son requesting racquel stephen Objective Last 24 Hour Vital Signs Date Time Temp Pulse Resp B/P Pulse Ox O2 Delivery O2 Flow Rate FiO2 08/10/16 13:03 77 14 30 08/10/16 12:00 98.1 87 14 88/54 99 Mechanical Ventilator 30 08/10/16 11:11 81 14 30 08/10/16 09:47 87 08/10/16 09:33 87 14 30 08/10/16 08:00 95 08/10/16 08:00 97.7 81 14 116/50 99 Mechanical Ventilator 30 08/10/16 07:16 79 14 30 08/10/16 05:03 81 14 30 08/10/16 04:00 97.4 54 15 109/59 100 Mechanical Ventilator 30 08/10/16 04:00 30 08/10/16 04:00 86 08/10/16 03:18 75 14 30 08/10/16 01:07 87 14 30 08/10/16 00:00 87 08/10/16 00:00 97.5 59 14 99/68 100 Mechanical Ventilator 30 08/10/16 00:00 30 08/09/16 22:47 85 14 30 08/09/16 21:15 87 17 100 Mechanical Ventilator 30 08/09/16 21:00 30 08/09/16 21:00 83 14 98 Mechanical Ventilator 30 08/09/16 20:59 83 14 30 08/09/16 20:00 81 08/09/16 20:00 30 08/09/16 19:25 86 14 30 08/09/16 19:00 97.9 95 20 112/64 97 Mechanical Ventilator 30 08/09/16 17:24 81 14 30 08/09/16 16:00 97.3 76 20 108/60 98 Mechanical Ventilator 30 08/09/16 16:00 30 08/09/16 16:00 85 08/09/16 15:02 79 14 30 Intake and Output 08/09/16 08/10/16 19:00 07:00 Intake Total 680 ml 580 ml Output Total 250 ml 600 ml Balance 430 ml -20 ml Free Water 200 ml 100 ml Tube Feeding 480 ml 480 ml Output Urine Total 250 ml 600 ml # Bowel Movements 1 4 Height (Feet): 5 Height (Inches): 2.00 Weight (Pounds): 120 Objective General Appearance: WD/WN, lethargic, mild distress Neck: supple Cardiovascular: regular rhythm Respiratory/Chest: rhonchi - bilaterally Abdomen: normal bowel sounds, non tender, soft, no organomegaly, no mass Edema: +generalized edema noted Neurologic: disoriented, aphasia CHRISTINA HAMMOND Aug 10, 2016 14:44
[2016-08-10 16:01] VITALS: BP 124/64
[2016-08-10 20:00] VITALS: BP 97/49
[2016-08-11] VITALS: BP 97/52
[2016-08-11 04:00] VITALS: BP 104/51
[2016-08-11 06:28] LABS: BASOPHILS % (AUTO) 0.7 % (0.0-2.0); EOSINOPHILS % (AUTO) 4.4 % (0.0-3.0); LYMPHOCYTES % (AUTO) 13.2 % (20.0-45.0); MEAN CORPUSCULAR HEMOGLOBIN 30.3 PG (27.0-31.0); MEAN CORPUSCULAR VOLUME 92 FL (80-99); NEUTROPHILS % (AUTO) 71.7 % (45.0-75.0); PLATELET COUNT 302 K/UL (150-450); RED BLOOD COUNT 3.98 M/UL (4.20-5.40); RED CELL DISTRIBUTION WIDTH 13.6 % (11.6-14.8); WHITE BLOOD COUNT 11.2 K/UL (4.8-10.8)
[2016-08-11 07:14] LABS: ALANINE AMINOTRANSFERASE 24 U/L (3-33); ALBUMIN/GLOBULIN RATIO 0.7 (1.0-2.7); ANION GAP 16 (5-15); ASPARTATE AMINO TRANSFERASE 25 U/L (5-40); CALCIUM 9.2 mg/dL (8.6-10.2); CARBON DIOXIDE 31 mEQ/L (20-30); CHLORIDE 92 mEQ/L (98-107); CREATININE 0.8 mg/dL (0.5-0.9); HEMOLYSIS 5; POTASSIUM 3.9 mEQ/L (3.4-4.9); SODIUM 139 mEQ/L (135-145); TOTAL PROTEIN 6.3 g/dL (6.6-8.7)
[2016-08-11 08:00] VITALS: BP 101/55
--- NOTE | 2016-08-11 08:41 | Pulmonology Progress Note ---
Assessment/Plan Assessment/Plan IMPRESSION: 1. History of tongue cancer. 2. Evidence of bilateral pleural effusion. 3. Respiratory failure. 4. Acute respiratory acidosis. 5. Hypoxemia. 6. Evidence of transient hypotension. 7. Leukocytosis. 8. Possible sepsis. 9. Significant lactic acidemia 10. Elevated liver enzymes. 11. Elevated natriuretic peptide. 12. Evidence of anemia. 13. Failure to thrive. 14. Atrial fibrillation, paroxysmal. 15. [facility] PLAN exam without change isolation as is respiratory care as is oxygen therapy suction as needed appears comfortable at present ID follow up reviewed monitor hemodynamics and assess monitor trach and secretions awaiting bed at subacute consider wean stabilize and transfer back to subacute per son's choice impression, plan, and exam edited and reviewed in detail care discussed with RN Subjective ROS Limited/Unobtainable: Yes Allergies: Coded Allergies: PENICILLINS (Verified Allergy, Unknown, 07/31/16) Subjective care noted and reviewed dc planning discussed on isolation for [facility] Objective Last 24 Hour Vital Signs Date Time Temp Pulse Resp B/P Pulse Ox O2 Delivery O2 Flow Rate FiO2 08/11/16 08:00 98.2 91 14 101/55 97 Mechanical Ventilator 30 08/11/16 06:50 82 14 30 08/11/16 04:37 86 14 30 08/11/16 04:00 97.3 79 14 104/51 99 Mechanical Ventilator 30 08/11/16 04:00 79 08/11/16 04:00 30 08/11/16 03:04 81 14 30 08/11/16 00:40 79 15 30 08/11/16 00:00 82 08/11/16 00:00 97.2 82 14 97/52 97 Mechanical Ventilator 30 08/11/16 00:00 30 08/10/16 23:25 89 14 30 08/10/16 21:30 78 18 30 08/10/16 20:00 96.4 84 15 97/49 98 Mechanical Ventilator 30 08/10/16 20:00 30 08/10/16 20:00 87 08/10/16 19:25 86 18 30 08/10/16 16:59 73 14 30 08/10/16 16:01 97.5 99 14 124/64 99 Mechanical Ventilator 30 08/10/16 16:00 98 08/10/16 16:00 30 08/10/16 15:12 70 15 30 08/10/16 13:03 77 14 30 08/10/16 12:00 30 08/10/16 12:00 98.1 87 14 88/54 99 Mechanical Ventilator 30 08/10/16 12:00 86 08/10/16 11:11 81 14 30 08/10/16 09:47 87 08/10/16 09:33 87 14 30 Intake and Output 08/10/16 08/11/16 19:00 07:00 Intake Total 730 ml 530 ml Output Total 1000 ml 400 ml Balance -270 ml 130 ml Free Water 250 ml 100 ml Tube Feeding 480 ml 400 ml Other 30 ml Output Urine Total 1000 ml 400 ml # Bowel Movements 2 Objective GENERAL: A well-developed female, chronically ill. HEENT: Negative. Pupils are sluggish, but reactive. NECK: Supple. Some deformity noted. The patient has a tracheostomy in the midline. Carotids are 2+. LUNGS: Coarse breath sounds. Moderate air entry. without change; no wheeze CARDIAC: Normal S1 and S2. Regular rhythm without murmurs, rubs, or gallops. ABDOMEN: Soft, nontender, and nondistended. No hepatosplenomegaly. EXTREMITIES: No cyanosis or clubbing. There is trace edema. Degenerative joint disease. NEUROLOGICAL: Reduced LOC. reviewed and edited Laboratory Tests 08/11/16 03:20: White Blood Count 11.2H, Red Blood Count 3.98L, Hemoglobin 12.1, Hematocrit 36.6L, Mean Corpuscular Volume 92, Mean Corpuscular Hemoglobin 30.3, Mean Corpuscular Hemoglobin Concent 33.0, Red Cell Distribution Width 13.6, Platelet Count 302, Mean Platelet Volume 6.0L, Neutrophils (%) (Auto) 71.7, Lymphocytes ( %) (Auto) 13.2L, Monocytes (%) (Auto) 10.0, Eosinophils (%) (Auto) 4.4H, Basophils (%) (Auto) 0.7, Sodium Level 139, Potassium Level 3.9, Chloride Level 92L, Carbon Dioxide Level 31H, Anion Gap 16H, Blood Urea Nitrogen 26H, Creatinine 0.8, Estimat Glomerular Filtration Rate , Glucose Level 99, Calcium Level 9.2, Total Bilirubin 0.3, Aspartate Amino Transf (AST/SGOT) 25, Alanine Aminotransferase (ALT/SGPT) 24, Alkaline Phosphatase 81, Total Protein 6.3L, Albumin 2.6L, Globulin 3.7, Albumin/Globulin Ratio 0.7L Current Medications Medications (Trade) Dose Ordered Sig/Josiah Route PRN Reason Start Time Stop Time Status Last Admin Dose Admin Acetaminophen (Tylenol) 650 mg Q4H PRN ORAL Mild Pain/Temp > 100.5 08/07/16 13:15 09/06/16 13:14 Amitriptyline HCl (Elavil) 10 mg BEDTIME ORAL 08/06/16 21:00 09/05/16 20:59 08/10/16 21:10 Digoxin (Lanoxin) 0.25 mg DAILY GT 07/31/16 12:30 08/30/16 12:29 08/10/16 09:47 Furosemide (Lasix) 40 mg DAILY IV 08/06/16 09:00 09/05/16 08:59 08/10/16 09:46 Heparin Sodium (Porcine) (Heparin 5000 units/ml) 5,000 units EVERY 12 HOURS SUBQ 08/01/16 21:00 08/31/16 20:59 08/10/16 21:11 Lorazepam (Ativan 2mg/ml 1ml) 1 mg Q3H PRN IV For Anxiety 08/07/16 12:00 08/14/16 11:59 08/10/16 08:05 Ondansetron HCl (Zofran) 4 mg Q6H PRN IVP Nausea & Vomiting 07/31/16 12:30 08/30/16 12:29 08/06/16 10:06 MARCY MAJOR Aug 11, 2016 08:41
[2016-08-11] MEDS: Digoxin Elixir 0.125mg GT SCH (08:44)
[2016-08-11] MEDS: Heparin 5000 units/ml inj SUBQ SCH ×2 (08:45→20:06)
--- NOTE | 2016-08-11 10:11 | Infectious Diseases Prog Note ---
Assessment/Plan Assessment/Plan antibiotics : none A 1. klebsiella pneumonia s/p rx 2. leucocytosis resolved 3. respiratory failure 4. tongue squamous cell carcinoma P 1. observe off antibiotics Subjective ROS Limited/Unobtainable: Yes Allergies: Coded Allergies: PENICILLINS (Verified Allergy, Unknown, 07/31/16) Objective Vital Signs Last 24 Hour Vital Signs Date Time Temp Pulse Resp B/P Pulse Ox O2 Delivery O2 Flow Rate FiO2 08/11/16 09:05 80 14 30 08/11/16 08:44 91 08/11/16 08:00 98.2 91 14 101/55 97 Mechanical Ventilator 30 08/11/16 08:00 30 08/11/16 06:50 82 14 30 08/11/16 04:37 86 14 30 08/11/16 04:00 97.3 79 14 104/51 99 Mechanical Ventilator 30 08/11/16 04:00 79 08/11/16 04:00 30 08/11/16 03:04 81 14 30 08/11/16 00:40 79 15 30 08/11/16 00:00 82 08/11/16 00:00 97.2 82 14 97/52 97 Mechanical Ventilator 30 08/11/16 00:00 30 08/10/16 23:25 89 14 30 08/10/16 21:30 78 18 30 08/10/16 20:00 96.4 84 15 97/49 98 Mechanical Ventilator 30 08/10/16 20:00 30 08/10/16 20:00 87 08/10/16 19:25 86 18 30 08/10/16 16:59 73 14 30 08/10/16 16:01 97.5 99 14 124/64 99 Mechanical Ventilator 30 08/10/16 16:00 98 08/10/16 16:00 30 08/10/16 15:12 70 15 30 08/10/16 13:03 77 14 30 08/10/16 12:00 30 08/10/16 12:00 98.1 87 14 88/54 99 Mechanical Ventilator 30 08/10/16 12:00 86 08/10/16 11:11 81 14 30 Height (Feet): 5 Height (Inches): 2.00 Weight (Pounds): 120 HEENT: status post trach Respiratory/Chest: lungs clear Cardiovascular: normal rate, regular rhythm, no gallop/murmur Abdomen: soft, non tender, other - GT Extremities: no edema Laboratory Tests Test 08/11/16 03:20 White Blood Count 11.2 K/UL (4.8-10.8) H Red Blood Count 3.98 M/UL (4.20-5.40) L Hemoglobin 12.1 G/DL (12.0-16.0) Hematocrit 36.6 % (37.0-47.0) L Mean Corpuscular Volume 92 FL (80-99) Mean Corpuscular Hemoglobin 30.3 PG (27.0-31.0) Mean Corpuscular Hemoglobin Concent 33.0 G/DL (32.0-36.0) Red Cell Distribution Width 13.6 % (11.6-14.8) Platelet Count 302 K/UL (150-450) Mean Platelet Volume 6.0 FL (6.5-10.1) L Neutrophils (%) (Auto) 71.7 % (45.0-75.0) Lymphocytes (%) (Auto) 13.2 % (20.0-45.0) L Monocytes (%) (Auto) 10.0 % (1.0-10.0) Eosinophils (%) (Auto) 4.4 % (0.0-3.0) H Basophils (%) (Auto) 0.7 % (0.0-2.0) Sodium Level 139 mEQ/L (135-145) Potassium Level 3.9 mEQ/L (3.4-4.9) Chloride Level 92 mEQ/L (98-107) L Carbon Dioxide Level 31 mEQ/L (20-30) H Anion Gap 16 (5-15) H Blood Urea Nitrogen 26 mg/dL (7-23) H Creatinine 0.8 mg/dL (0.5-0.9) Estimat Glomerular Filtration Rate mL/min (>60) Glucose Level 99 mg/dL (74-106) Calcium Level 9.2 mg/dL (8.6-10.2) Total Bilirubin 0.3 mg/dL (0.0-1.2) Aspartate Amino Transf (AST/SGOT) 25 U/L (5-40) Alanine Aminotransferase (ALT/SGPT) 24 U/L (3-33) Alkaline Phosphatase 81 U/L (35-104) Total Protein 6.3 g/dL (6.6-8.7) L Albumin 2.6 g/dL (3.5-5.2) L Globulin 3.7 g/dL Albumin/Globulin Ratio 0.7 (1.0-2.7) L MARA BLOCK Aug 11, 2016 10:11
[2016-08-11 12:00] VITALS: BP 95/54
[2016-08-11 16:00] VITALS: BP 98/56
--- NOTE | 2016-08-11 16:33 | Cardiology Report ---
APPROVED REPORT EKG Measurement Heart [id number] Normal sinus rhythm Cannot rule out Inferior infarct, age undetermined Abnormal ECG
[2016-08-11 20:00] VITALS: BP 155/84
--- NOTE | 2016-08-11 20:12 | General Progress Note ---
Assessment/Plan Problem List: (1) Respiratory distress ICD Codes: R06.00 - Dyspnea, unspecified SNOMED: 091211838 (2) Pneumonia ICD Codes: J18.9 - Pneumonia, unspecified organism SNOMED: 769499520 (3) SCC (squamous cell carcinoma) ICD Codes: C44.92 - Squamous cell carcinoma of skin, unspecified SNOMED: 517485602 (4) Tracheostomy in place ICD Codes: Z93.0 - Tracheostomy status SNOMED: 386671062 Status: stable, progressing Assessment/Plan off abx per id resp care suctioning wean as able feeds monitor h/h/labs- diuresis replace lytes as needed dc planning. son looking at facilities. message left regarding impending dc bed available on sunday per CM Subjective ROS Limited/Unobtainable: No Constitutional: Reports: malaise, weakness HEENT: Reports: no symptoms Cardiovascular: Reports: no symptoms Respiratory: Reports: cough, shortness of breath, sputum Gastrointestinal/Abdominal: Reports: difficulty swallowing Genitourinary: Reports: no symptoms Neurologic/Psychiatric: Reports: no symptoms Endocrine: Reports: no symptoms Hematologic/Lymphatic: Reports: anemia Allergies: Coded Allergies: PENICILLINS (Verified Allergy, Unknown, 07/31/16) All Systems: reviewed and negative except above Subjective on the vent. no events, tolerating feeds. decreased edema. no chest pain off abx now. Objective Last 24 Hour Vital Signs Date Time Temp Pulse Resp B/P Pulse Ox O2 Delivery O2 Flow Rate FiO2 08/11/16 19:46 107 14 30 08/11/16 16:35 98 14 30 08/11/16 16:00 98.1 91 14 98/56 98 Mechanical Ventilator 30 08/11/16 14:30 91 14 30 08/11/16 14:00 30 08/11/16 12:40 88 14 30 08/11/16 12:00 88 08/11/16 12:00 98.4 83 14 95/54 95 Mechanical Ventilator 30 08/11/16 10:40 78 14 30 08/11/16 09:05 80 14 30 08/11/16 08:44 91 08/11/16 08:00 79 08/11/16 08:00 98.2 91 14 101/55 97 Mechanical Ventilator 30 08/11/16 08:00 30 08/11/16 06:50 82 14 30 08/11/16 04:37 86 14 30 08/11/16 04:00 97.3 79 14 104/51 99 Mechanical Ventilator 30 08/11/16 04:00 79 08/11/16 04:00 30 08/11/16 03:04 81 14 30 08/11/16 00:40 79 15 30 08/11/16 00:00 82 08/11/16 00:00 97.2 82 14 97/52 97 Mechanical Ventilator 30 08/11/16 00:00 30 08/10/16 23:25 89 14 30 08/10/16 21:30 78 18 30 Intake and Output 08/10/16 08/11/16 19:00 07:00 Intake Total 730 ml 530 ml Output Total 1000 ml 400 ml Balance -270 ml 130 ml Free Water 250 ml 100 ml Tube Feeding 480 ml 400 ml Other 30 ml Output Urine Total 1000 ml 400 ml # Bowel Movements 2 Laboratory Tests 08/11/16 03:20: White Blood Count 11.2H, Red Blood Count 3.98L, Hemoglobin 12.1, Hematocrit 36.6L, Mean Corpuscular Volume 92, Mean Corpuscular Hemoglobin 30.3, Mean Corpuscular Hemoglobin Concent 33.0, Red Cell Distribution Width 13.6, Platelet Count 302, Mean Platelet Volume 6.0L, Neutrophils (%) (Auto) 71.7, Lymphocytes ( %) (Auto) 13.2L, Monocytes (%) (Auto) 10.0, Eosinophils (%) (Auto) 4.4H, Basophils (%) (Auto) 0.7, Sodium Level 139, Potassium Level 3.9, Chloride Level 92L, Carbon Dioxide Level 31H, Anion Gap 16H, Blood Urea Nitrogen 26H, Creatinine 0.8, Estimat Glomerular Filtration Rate , Glucose Level 99, Calcium Level 9.2, Total Bilirubin 0.3, Aspartate Amino Transf (AST/SGOT) 25, Alanine Aminotransferase (ALT/SGPT) 24, Alkaline Phosphatase 81, Total Protein 6.3L, Albumin 2.6L, Globulin 3.7, Albumin/Globulin Ratio 0.7L Height (Feet): 5 Height (Inches): 2.00 Weight (Pounds): 120 Objective General Appearance: WD/WN, lethargic, mild distress Neck: supple Cardiovascular: regular rhythm Respiratory/Chest: rhonchi - bilaterally Abdomen: normal bowel sounds, non tender, soft, no organomegaly, no mass Edema: +generalized edema noted Neurologic: disoriented, aphasia CHRISTINA HAMMOND Aug 11, 2016 20:12
[2016-08-11] MEDS: LORazepam Inj 2mg/ml 1ml IV PRN (21:50)
[2016-08-12] VITALS: BP 117/46
[2016-08-12 04:00] VITALS: BP 117/45
[2016-08-12 08:00] VITALS: BP 90/50
--- NOTE | 2016-08-12 08:15 | Pulmonology Progress Note ---
Assessment/Plan Assessment/Plan IMPRESSION: 1. History of tongue cancer. 2. Evidence of bilateral pleural effusion. 3. Respiratory failure. 4. Acute respiratory acidosis. 5. Hypoxemia. 6. Evidence of transient hypotension. 7. Leukocytosis. 8. Possible sepsis. 9. Significant lactic acidemia 10. Elevated liver enzymes. 11. Elevated natriuretic peptide. 12. Evidence of anemia. 13. Failure to thrive. 14. Atrial fibrillation, paroxysmal. 15. [facility] PLAN exam without change isolation as is respiratory care as is oxygen therapy suction as needed appears comfortable at present monitor trach and secretions transfer to subacute consider wean impression, plan, and exam edited and reviewed in detail care discussed with RN Subjective ROS Limited/Unobtainable: Yes Allergies: Coded Allergies: PENICILLINS (Verified Allergy, Unknown, 07/31/16) Subjective care noted and reviewed dc planning discussed on isolation for [facility] Objective Last 24 Hour Vital Signs Date Time Temp Pulse Resp B/P Pulse Ox O2 Delivery O2 Flow Rate FiO2 08/12/16 06:49 108 14 30 08/12/16 05:07 106 14 30 08/12/16 04:00 97.7 83 14 117/45 98 Mechanical Ventilator 30 08/12/16 04:00 111 08/12/16 04:00 30 08/12/16 03:21 109 14 30 08/12/16 01:23 98 14 30 08/12/16 00:00 30 08/12/16 00:00 93 08/12/16 00:00 98.2 91 14 117/46 97 Mechanical Ventilator 30 08/11/16 23:30 103 14 30 08/11/16 21:30 102 14 30 08/11/16 20:00 110 08/11/16 20:00 30 08/11/16 20:00 96.8 125 20 155/84 96 Trach Collar 30 08/11/16 19:46 107 14 30 08/11/16 16:35 98 14 30 08/11/16 16:00 30 08/11/16 16:00 93 08/11/16 16:00 98.1 91 14 98/56 98 Mechanical Ventilator 30 08/11/16 14:30 91 14 30 08/11/16 14:00 30 08/11/16 12:40 88 14 30 08/11/16 12:00 88 08/11/16 12:00 98.4 83 14 95/54 95 Mechanical Ventilator 30 08/11/16 10:40 78 14 30 08/11/16 09:05 80 14 30 08/11/16 08:44 91 Intake and Output 08/11/16 08/12/16 19:00 07:00 Intake Total 340 ml 680 ml Output Total 100 ml Balance 240 ml 680 ml Free Water 100 ml 200 ml Tube Feeding 240 ml 480 ml Output Urine Total 100 ml # Bowel Movements 2 Objective GENERAL: A well-developed female, chronically ill. HEENT: Negative. Pupils are sluggish, but reactive. NECK: Supple. Some deformity noted. The patient has a tracheostomy in the midline. Carotids are 2+. LUNGS: Coarse breath sounds. Moderate air entry. without change; no wheeze CARDIAC: Normal S1 and S2. Regular rhythm without murmurs, rubs, or gallops. ABDOMEN: Soft, nontender, and nondistended. No hepatosplenomegaly. EXTREMITIES: No cyanosis or clubbing. There is trace edema. Degenerative joint disease. NEUROLOGICAL: Reduced LOC. reviewed and edited Current Medications Medications (Trade) Dose Ordered Sig/Josiah Route PRN Reason Start Time Stop Time Status Last Admin Dose Admin Acetaminophen (Tylenol) 650 mg Q4H PRN ORAL Mild Pain/Temp > 100.5 08/07/16 13:15 09/06/16 13:14 Amitriptyline HCl (Elavil) 10 mg BEDTIME ORAL 08/06/16 21:00 09/05/16 20:59 08/11/16 20:05 Digoxin (Lanoxin) 0.25 mg DAILY GT 07/31/16 12:30 08/30/16 12:29 08/11/16 08:44 Furosemide (Lasix) 40 mg DAILY IV 08/06/16 09:00 09/05/16 08:59 08/11/16 08:44 Heparin Sodium (Porcine) (Heparin 5000 units/ml) 5,000 units EVERY 12 HOURS SUBQ 08/01/16 21:00 08/31/16 20:59 08/11/16 20:06 Lorazepam (Ativan 2mg/ml 1ml) 1 mg Q3H PRN IV For Anxiety 08/07/16 12:00 08/14/16 11:59 08/11/16 21:50 Ondansetron HCl (Zofran) 4 mg Q6H PRN IVP Nausea & Vomiting 07/31/16 12:30 08/30/16 12:29 08/06/16 10:06 MARCY MAJOR Aug 12, 2016 08:15
[2016-08-12] MEDS: Digoxin Elixir 0.125mg GT SCH (09:02)
[2016-08-12] MEDS: Heparin 5000 units/ml inj SUBQ SCH ×2 (09:02→22:20)
--- NOTE | 2016-08-12 10:02 | General Progress Note ---
Assessment/Plan Problem List: (1) Respiratory distress ICD Codes: R06.00 - Dyspnea, unspecified SNOMED: 902402891 (2) Pneumonia ICD Codes: J18.9 - Pneumonia, unspecified organism SNOMED: 931533658 (3) SCC (squamous cell carcinoma) ICD Codes: C44.92 - Squamous cell carcinoma of skin, unspecified SNOMED: 174136536 (4) Tracheostomy in place ICD Codes: Z93.0 - Tracheostomy status SNOMED: 623554000 Status: stable, progressing Assessment/Plan off abx per id resp care suctioning wean as able feeds monitor h/h/labs- diuresis replace lytes as needed dc planning. son looking at facilities. message left regarding impending dc bed available on sunday per CM Subjective ROS Limited/Unobtainable: No Constitutional: Reports: malaise, weakness HEENT: Reports: no symptoms Cardiovascular: Reports: no symptoms Respiratory: Reports: sputum Gastrointestinal/Abdominal: Reports: no symptoms Genitourinary: Reports: no symptoms Neurologic/Psychiatric: Reports: anxiety Endocrine: Reports: no symptoms Hematologic/Lymphatic: Reports: anemia Allergies: Coded Allergies: PENICILLINS (Verified Allergy, Unknown, 07/31/16) All Systems: reviewed and negative except above Subjective on the vent. no events, tolerating feeds. decreased edema. no chest pain off abx now. bed available on sunday at [facility] Objective Last 24 Hour Vital Signs Date Time Temp Pulse Resp B/P Pulse Ox O2 Delivery O2 Flow Rate FiO2 08/12/16 09:06 74 14 30 08/12/16 09:02 78 08/12/16 08:00 77 08/12/16 08:00 30 08/12/16 06:49 108 14 30 08/12/16 05:07 106 14 30 08/12/16 04:00 97.7 83 14 117/45 98 Mechanical Ventilator 30 08/12/16 04:00 111 08/12/16 04:00 30 08/12/16 03:21 109 14 30 08/12/16 01:23 98 14 30 08/12/16 00:00 30 08/12/16 00:00 93 08/12/16 00:00 98.2 91 14 117/46 97 Mechanical Ventilator 30 08/11/16 23:30 103 14 30 08/11/16 21:30 102 14 30 08/11/16 20:00 110 08/11/16 20:00 30 08/11/16 20:00 96.8 125 20 155/84 96 Trach Collar 30 08/11/16 19:46 107 14 30 08/11/16 16:35 98 14 30 08/11/16 16:00 30 08/11/16 16:00 93 08/11/16 16:00 98.1 91 14 98/56 98 Mechanical Ventilator 30 08/11/16 14:30 91 14 30 08/11/16 14:00 30 08/11/16 12:40 88 14 30 08/11/16 12:00 88 08/11/16 12:00 98.4 83 14 95/54 95 Mechanical Ventilator 30 08/11/16 10:40 78 14 30 Intake and Output 08/11/16 08/12/16 19:00 07:00 Intake Total 340 ml 680 ml Output Total 100 ml Balance 240 ml 680 ml Free Water 100 ml 200 ml Tube Feeding 240 ml 480 ml Output Urine Total 100 ml # Bowel Movements 2 Height (Feet): 5 Height (Inches): 2.00 Weight (Pounds): 120 Objective General Appearance: WD/WN, lethargic, mild distress Neck: supple Cardiovascular: regular rhythm Respiratory/Chest: rhonchi - bilaterally Abdomen: normal bowel sounds, non tender, soft, no organomegaly, no mass Edema: +generalized edema noted Neurologic: disoriented, aphasia CHRISTINA HAMMOND Aug 12, 2016 10:02
[2016-08-12 12:00] VITALS: BP 94/45
[2016-08-12 16:00] VITALS: BP 116/57
[2016-08-12 20:00] VITALS: BP 90/59
[2016-08-12] MEDS ORDERED: Sterile Water For Irrig 2000ml IRRIG ONE (21:43)
[2016-08-13] VITALS: BP 99/54
[2016-08-13] MEDS: Acetaminophen 650mg/20.3ml ORAL PRN (01:09)
[2016-08-13] MEDS: LORazepam Inj 2mg/ml 1ml IV PRN ×2 (03:25→09:07)
[2016-08-13 04:00] VITALS: BP 105/60
[2016-08-13 08:00] VITALS: BP 110/58
[2016-08-13] MEDS: Heparin 5000 units/ml inj SUBQ SCH ×2 (09:06→22:12)
[2016-08-13] MEDS: Digoxin Elixir 0.125mg GT SCH (09:07)
--- NOTE | 2016-08-13 10:08 | Pulmonology Progress Note ---
Assessment/Plan Assessment/Plan IMPRESSION: 1. History of tongue cancer. 2. Evidence of bilateral pleural effusion. 3. Respiratory failure. 4. Acute respiratory acidosis. resolved 5. Hypoxemia. 6. Evidence of transient hypotension. 7. Leukocytosis. resolved 8. sepsis. treated 9. Significant lactic acidemia resolved 10. Elevated liver enzymes. 11. Elevated natriuretic peptide. 12. Evidence of anemia. 13. Failure to thrive. 14. Atrial fibrillation, paroxysmal. 15. [facility] PLAN exam without change isolation as is respiratory care as is oxygen therapy suction as needed monitor trach and secretions transfer to subacute once accepted consider wean next week impression, plan, and exam edited and reviewed in detail care discussed with RN Subjective Allergies: Coded Allergies: PENICILLINS (Verified Allergy, Unknown, 07/31/16) Subjective care noted and reviewed dc planning discussed and are same on isolation for [facility] Objective Last 24 Hour Vital Signs Date Time Temp Pulse Resp B/P Pulse Ox O2 Delivery O2 Flow Rate FiO2 08/13/16 09:07 70 08/13/16 08:41 94 14 30 08/13/16 07:34 89 14 30 08/13/16 05:09 105 14 30 08/13/16 04:00 85 08/13/16 04:00 97.7 85 14 105/60 97 Mechanical Ventilator 30 08/13/16 04:00 30 08/13/16 03:15 106 14 30 08/13/16 00:58 108 14 30 08/13/16 00:00 30 08/13/16 00:00 99.7 98 24 99/54 97 Mechanical Ventilator 30 08/13/16 00:00 118 08/12/16 23:00 115 14 30 08/12/16 21:30 109 14 30 08/12/16 20:00 30 08/12/16 20:00 97.7 109 14 90/59 98 Mechanical Ventilator 30 08/12/16 20:00 101 08/12/16 19:26 112 14 30 08/12/16 16:57 84 14 30 08/12/16 16:00 77 08/12/16 16:00 30 08/12/16 16:00 97.9 79 16 116/57 95 Mechanical Ventilator 30 08/12/16 14:41 94 14 30 08/12/16 13:05 100 14 30 08/12/16 12:00 96.6 76 15 94/45 96 Mechanical Ventilator 30 08/12/16 12:00 30 08/12/16 12:00 76 08/12/16 10:37 77 14 30 Intake and Output 08/12/16 08/13/16 19:00 07:00 Intake Total 300 ml 560 ml Output Total 300 ml Balance 300 ml 260 ml Free Water 100 ml 200 ml Tube Feeding 200 ml 360 ml Output Urine Total 300 ml # Bowel Movements 1 2 Objective GENERAL: A well-developed female, chronically ill. HEENT: Negative. Pupils are sluggish, but reactive. NECK: Supple. Some deformity noted. The patient has a tracheostomy in the midline. Carotids are 2+. LUNGS: Coarse breath sounds. Moderate air entry. without change; no wheeze CARDIAC: Normal S1 and S2. Regular rhythm without murmurs, rubs, or gallops. ABDOMEN: Soft, nontender, and nondistended. No hepatosplenomegaly. EXTREMITIES: No cyanosis or clubbing. There is trace edema. Degenerative joint disease. NEUROLOGICAL: Reduced LOC. reviewed and edited Current Medications Medications (Trade) Dose Ordered Sig/Josiah Route PRN Reason Start Time Stop Time Status Last Admin Dose Admin Acetaminophen (Tylenol) 650 mg Q4H PRN ORAL Mild Pain/Temp > 100.5 08/07/16 13:15 09/06/16 13:14 08/13/16 01:09 Amitriptyline HCl (Elavil) 10 mg BEDTIME ORAL 08/06/16 21:00 09/05/16 20:59 08/12/16 22:19 Digoxin (Lanoxin) 0.25 mg DAILY GT 07/31/16 12:30 08/30/16 12:29 08/13/16 09:07 Furosemide (Lasix) 40 mg DAILY IV 08/06/16 09:00 09/05/16 08:59 08/13/16 09:07 Heparin Sodium (Porcine) (Heparin 5000 units/ml) 5,000 units EVERY 12 HOURS SUBQ 08/01/16 21:00 08/31/16 20:59 08/13/16 09:06 Lorazepam (Ativan 2mg/ml 1ml) 1 mg Q3H PRN IV For Anxiety 08/07/16 12:00 08/14/16 11:59 08/13/16 09:07 Ondansetron HCl (Zofran) 4 mg Q6H PRN IVP Nausea & Vomiting 07/31/16 12:30 08/30/16 12:29 08/06/16 10:06 MARCY MAJOR Aug 13, 2016 10:08
--- NOTE | 2016-08-13 11:39 | Infectious Diseases Prog Note ---
Assessment/Plan Assessment/Plan antibiotics : none A 1. klebsiella pneumonia s/p rx 2. leucocytosis resolved 3. respiratory failure 4. tongue squamous cell carcinoma P 1. observe off antibiotics Subjective ROS Limited/Unobtainable: Yes Allergies: Coded Allergies: PENICILLINS (Verified Allergy, Unknown, 07/31/16) Objective Vital Signs Last 24 Hour Vital Signs Date Time Temp Pulse Resp B/P Pulse Ox O2 Delivery O2 Flow Rate FiO2 08/13/16 09:07 70 08/13/16 08:41 94 14 30 08/13/16 08:00 74 08/13/16 08:00 30 08/13/16 07:34 89 14 30 08/13/16 05:09 105 14 30 08/13/16 04:00 85 08/13/16 04:00 97.7 85 14 105/60 97 Mechanical Ventilator 30 08/13/16 04:00 30 08/13/16 03:15 106 14 30 08/13/16 00:58 108 14 30 08/13/16 00:00 30 08/13/16 00:00 99.7 98 24 99/54 97 Mechanical Ventilator 30 08/13/16 00:00 118 08/12/16 23:00 115 14 30 08/12/16 21:30 109 14 30 08/12/16 20:00 30 08/12/16 20:00 97.7 109 14 90/59 98 Mechanical Ventilator 30 08/12/16 20:00 101 08/12/16 19:26 112 14 30 08/12/16 16:57 84 14 30 08/12/16 16:00 77 08/12/16 16:00 30 08/12/16 16:00 97.9 79 16 116/57 95 Mechanical Ventilator 30 08/12/16 14:41 94 14 30 08/12/16 13:05 100 14 30 08/12/16 12:00 96.6 76 15 94/45 96 Mechanical Ventilator 30 08/12/16 12:00 30 08/12/16 12:00 76 Height (Feet): 5 Height (Inches): 2.00 Weight (Pounds): 120 HEENT: status post trach Respiratory/Chest: lungs clear Cardiovascular: normal rate, regular rhythm, no gallop/murmur Abdomen: soft, non tender, other - GT Extremities: no edema MARA BLOCK Aug 13, 2016 11:39
[2016-08-13 12:00] VITALS: BP 115/49
--- NOTE | 2016-08-13 13:04 | General Progress Note ---
Assessment/Plan Problem List: (1) Respiratory distress ICD Codes: R06.00 - Dyspnea, unspecified SNOMED: 252195911 (2) Pneumonia ICD Codes: J18.9 - Pneumonia, unspecified organism SNOMED: 875152902 (3) SCC (squamous cell carcinoma) ICD Codes: C44.92 - Squamous cell carcinoma of skin, unspecified SNOMED: 391927049 (4) Tracheostomy in place ICD Codes: Z93.0 - Tracheostomy status SNOMED: 859639549 Status: stable, progressing Assessment/Plan off abx per id resp care suctioning wean as able feeds monitor h/h/labs- diuresis dc planning to [facility] if bed available Subjective ROS Limited/Unobtainable: No Constitutional: Reports: malaise, weakness HEENT: Reports: no symptoms Respiratory: Reports: cough, shortness of breath, sputum Gastrointestinal/Abdominal: Reports: difficulty swallowing Genitourinary: Reports: no symptoms Neurologic/Psychiatric: Reports: anxiety Endocrine: Reports: no symptoms Hematologic/Lymphatic: Reports: no symptoms Allergies: Coded Allergies: PENICILLINS (Verified Allergy, Unknown, 07/31/16) All Systems: reviewed and negative except above Subjective on the vent. no events, tolerating feeds. decreased edema. no chest pain. minimal congestion. anxious off abx now. bed available on sunday at [facility] Objective Last 24 Hour Vital Signs Date Time Temp Pulse Resp B/P Pulse Ox O2 Delivery O2 Flow Rate FiO2 08/13/16 12:53 71 14 30 08/13/16 12:00 30 08/13/16 12:00 97.2 73 14 115/49 98 Mechanical Ventilator 30 08/13/16 12:00 75 08/13/16 11:14 91 14 30 08/13/16 09:07 70 08/13/16 08:41 94 14 30 08/13/16 08:00 97.5 69 16 110/58 98 Mechanical Ventilator 30 08/13/16 08:00 74 08/13/16 08:00 30 08/13/16 07:34 89 14 30 08/13/16 05:09 105 14 30 08/13/16 04:00 85 08/13/16 04:00 97.7 85 14 105/60 97 Mechanical Ventilator 30 08/13/16 04:00 30 08/13/16 03:15 106 14 30 08/13/16 00:58 108 14 30 08/13/16 00:00 30 08/13/16 00:00 99.7 98 24 99/54 97 Mechanical Ventilator 30 08/13/16 00:00 118 08/12/16 23:00 115 14 30 08/12/16 21:30 109 14 30 08/12/16 20:00 30 08/12/16 20:00 97.7 109 14 90/59 98 Mechanical Ventilator 30 08/12/16 20:00 101 08/12/16 19:26 112 14 30 08/12/16 16:57 84 14 30 08/12/16 16:00 77 08/12/16 16:00 30 08/12/16 16:00 97.9 79 16 116/57 95 Mechanical Ventilator 30 08/12/16 14:41 94 14 30 08/12/16 13:05 100 14 30 Intake and Output 08/12/16 08/13/16 19:00 07:00 Intake Total 300 ml 600 ml Output Total 300 ml Balance 300 ml 300 ml Free Water 100 ml 200 ml Tube Feeding 200 ml 400 ml Output Urine Total 300 ml # Bowel Movements 1 4 Height (Feet): 5 Height (Inches): 2.00 Weight (Pounds): 120 Objective General Appearance: WD/WN, lethargic, mild distress Neck: supple Cardiovascular: regular rhythm Respiratory/Chest: rhonchi - bilaterally Abdomen: normal bowel sounds, non tender, soft, no organomegaly, no mass Edema: +generalized edema noted Neurologic: disoriented, aphasia CHRISTINA HAMMOND Aug 13, 2016 13:04
[2016-08-13 16:00] VITALS: BP 93/44
[2016-08-13 20:00] VITALS: BP 93/50
[2016-08-14] VITALS: BP 113/62
[2016-08-14 04:00] VITALS: BP 109/56
[2016-08-14 08:00] VITALS: BP 110/58
[2016-08-14] MEDS: Digoxin Elixir 0.125mg GT SCH (08:33)
[2016-08-14] MEDS: Heparin 5000 units/ml inj SUBQ SCH ×2 (08:34→21:07)
--- NOTE | 2016-08-14 10:56 | Pulmonology Progress Note ---
Assessment/Plan Assessment/Plan IMPRESSION: 1. History of tongue cancer. 2. Evidence of bilateral pleural effusion. 3. Respiratory failure. 4. Acute respiratory acidosis. resolved 5. Hypoxemia. 6. Evidence of transient hypotension. 7. Leukocytosis. resolved 8. sepsis. treated 9. Significant lactic acidemia resolved 10. Elevated liver enzymes. 11. Elevated natriuretic peptide. 12. Evidence of anemia. 13. Failure to thrive. 14. Atrial fibrillation, paroxysmal. 15. [facility] PLAN exam without change isolation as is respiratory care as is oxygen therapy suction as needed monitor trach and secretions transfer to subacute today; patient accepted and son agreeable will convert to GT meds only consider wean next week impression, plan, and exam edited and reviewed in detail care discussed with RN Subjective ROS Limited/Unobtainable: Yes Allergies: Coded Allergies: PENICILLINS (Verified Allergy, Unknown, 07/31/16) Subjective care noted and reviewed dc planning discussed and are same on isolation for [facility] Objective Last 24 Hour Vital Signs Date Time Temp Pulse Resp B/P Pulse Ox O2 Delivery O2 Flow Rate FiO2 08/14/16 09:03 83 14 30 08/14/16 08:33 89 08/14/16 08:00 30 08/14/16 08:00 72 08/14/16 08:00 97.7 84 14 110/58 99 Mechanical Ventilator 30 08/14/16 06:50 89 14 30 08/14/16 05:30 86 14 30 08/14/16 04:04 30 08/14/16 04:00 83 08/14/16 04:00 97.4 74 14 109/56 98 Mechanical Ventilator 30 08/14/16 03:55 30 08/14/16 03:50 83 08/14/16 03:13 82 14 30 08/14/16 01:16 90 14 30 08/14/16 00:00 30 08/14/16 00:00 97.0 82 14 113/62 95 Mechanical Ventilator 30 08/14/16 00:00 79 08/13/16 23:00 91 17 30 08/13/16 21:20 86 14 30 08/13/16 20:00 75 08/13/16 20:00 98.2 69 14 93/50 98 Mechanical Ventilator 30 08/13/16 20:00 30 08/13/16 19:25 82 14 30 08/13/16 17:00 84 14 30 08/13/16 16:00 72 08/13/16 16:00 97.5 74 14 93/44 98 Mechanical Ventilator 30 08/13/16 16:00 30 08/13/16 15:00 71 14 30 08/13/16 12:53 71 14 30 08/13/16 12:00 30 08/13/16 12:00 97.2 73 14 115/49 98 Mechanical Ventilator 30 08/13/16 12:00 75 08/13/16 11:14 91 14 30 Intake and Output 08/13/16 08/14/16 19:00 07:00 Intake Total 540 ml 410 ml Output Total 200 ml 240 ml Balance 340 ml 170 ml Free Water 100 ml 50 ml Tube Feeding 440 ml 360 ml Output Urine Total 200 ml 240 ml Objective GENERAL: A well-developed female, chronically ill. HEENT: Negative. Pupils are sluggish, but reactive. NECK: Supple. Some deformity noted. The patient has a tracheostomy in the midline. Carotids are 2+. LUNGS: Coarse breath sounds. Moderate air entry. without change; no wheeze CARDIAC: Normal S1 and S2. Regular rhythm without murmurs, rubs, or gallops. ABDOMEN: Soft, nontender, and nondistended. No hepatosplenomegaly. EXTREMITIES: No cyanosis or clubbing. There is trace edema. Degenerative joint disease. NEUROLOGICAL: Reduced LOC. reviewed and edited Current Medications Medications (Trade) Dose Ordered Sig/Josiah Route PRN Reason Start Time Stop Time Status Last Admin Dose Admin Acetaminophen (Tylenol) 650 mg Q4H PRN ORAL Mild Pain/Temp > 100.5 08/07/16 13:15 09/06/16 13:14 08/13/16 01:09 Amitriptyline HCl (Elavil) 10 mg BEDTIME ORAL 08/06/16 21:00 09/05/16 20:59 08/13/16 22:10 Digoxin (Lanoxin) 0.25 mg DAILY GT 07/31/16 12:30 08/30/16 12:29 08/14/16 08:33 Furosemide (Lasix) 40 mg DAILY IV 08/06/16 09:00 09/05/16 08:59 08/14/16 08:33 Heparin Sodium (Porcine) (Heparin 5000 units/ml) 5,000 units EVERY 12 HOURS SUBQ 08/01/16 21:00 08/31/16 20:59 08/14/16 08:34 Lorazepam (Ativan 2mg/ml 1ml) 1 mg Q3H PRN IV For Anxiety 08/07/16 12:00 08/14/16 11:59 08/13/16 09:07 Ondansetron HCl (Zofran) 4 mg Q6H PRN IVP Nausea & Vomiting 07/31/16 12:30 08/30/16 12:29 08/06/16 10:06 MARCY MAJOR Aug 14, 2016 10:56
--- NOTE | 2016-08-14 11:26 | Infectious Diseases Prog Note ---
Assessment/Plan Assessment/Plan antibiotics : none A 1. klebsiella pneumonia s/p rx 2. leucocytosis resolved 3. respiratory failure 4. tongue squamous cell carcinoma P 1. observe off antibiotics 2. d/c planned Subjective ROS Limited/Unobtainable: Yes Allergies: Coded Allergies: PENICILLINS (Verified Allergy, Unknown, 07/31/16) Objective Vital Signs Last 24 Hour Vital Signs Date Time Temp Pulse Resp B/P Pulse Ox O2 Delivery O2 Flow Rate FiO2 08/14/16 09:03 83 14 30 08/14/16 08:33 89 08/14/16 08:00 30 08/14/16 08:00 72 08/14/16 08:00 97.7 84 14 110/58 99 Mechanical Ventilator 30 08/14/16 06:50 89 14 30 08/14/16 05:30 86 14 30 08/14/16 04:04 30 08/14/16 04:00 83 08/14/16 04:00 97.4 74 14 109/56 98 Mechanical Ventilator 30 08/14/16 03:55 30 08/14/16 03:50 83 08/14/16 03:13 82 14 30 08/14/16 01:16 90 14 30 08/14/16 00:00 30 08/14/16 00:00 97.0 82 14 113/62 95 Mechanical Ventilator 30 08/14/16 00:00 79 08/13/16 23:00 91 17 30 08/13/16 21:20 86 14 30 08/13/16 20:00 75 08/13/16 20:00 98.2 69 14 93/50 98 Mechanical Ventilator 30 08/13/16 20:00 30 08/13/16 19:25 82 14 30 08/13/16 17:00 84 14 30 08/13/16 16:00 72 08/13/16 16:00 97.5 74 14 93/44 98 Mechanical Ventilator 30 08/13/16 16:00 30 08/13/16 15:00 71 14 30 08/13/16 12:53 71 14 30 08/13/16 12:00 30 08/13/16 12:00 97.2 73 14 115/49 98 Mechanical Ventilator 30 08/13/16 12:00 75 Height (Feet): 5 Height (Inches): 2.00 Weight (Pounds): 120 HEENT: status post trach Respiratory/Chest: lungs clear Cardiovascular: normal rate, regular rhythm, no gallop/murmur Abdomen: soft, non tender, other - GT Extremities: no edema MARA BLOCK Aug 14, 2016 11:26
[2016-08-14 12:00] VITALS: BP 93/58
--- NOTE | 2016-08-14 12:59 | Wound Care Consultation ---
Wound Assessment Wound Assessment #1: Wound Number: #1 Wound Present on Admission: Yes New Wound: No Status Change of Wound: No Wound Location Body Site: perineal area Wound Type: chemical burn - RESOLVED. Ross Test: Does not Ross Wound Drainage Amount: None Wound Drainage Odor: None/Absent Tissue Surrounding Wound: Intact Wound General Appearance: Clean/Dry - SKIN INTACT, RESOLVED Wound Assessment #2: Wound Number: #2 Wound Present on Admission: Yes New Wound: No Status Change of Wound: No Wound Location Body Site Modif: mid Wound Location Body Site: sacral Wound Type: pressure ulcer - SCATTERED Ross Test: Does not Ross Pressure Ulcer Stage: III - RESOLVED SCATTERED STAGE III. Wound Thickness: Full Thickness - SCAR TISSUE INTACT WITH HYPERPIGMENTATION. Wound Drainage Amount: None Wound Drainage Odor: None/Absent Tissue Surrounding Wound: Intact Wound General Appearance: Clean/Dry Wound Comment #1 mid sacral scattered stage III pressure ulcer -RESOLVED. #2 perineal chemical burn -RESOLVED. upon reassessment noted scattered stage III resolved,skin remains intact. upon reassessment noted perineal chemical burn resolved, skin remains intact. YADIRA DIAMOND Aug 14, 2016 12:59
[2016-08-14 16:08] VITALS: BP 100/48
--- NOTE | 2016-08-14 17:10 | General Progress Note ---
Assessment/Plan Problem List: (1) Respiratory distress ICD Codes: R06.00 - Dyspnea, unspecified SNOMED: 545313346 (2) Pneumonia ICD Codes: J18.9 - Pneumonia, unspecified organism SNOMED: 137335760 (3) SCC (squamous cell carcinoma) ICD Codes: C44.92 - Squamous cell carcinoma of skin, unspecified SNOMED: 341664317 (4) Tracheostomy in place ICD Codes: Z93.0 - Tracheostomy status SNOMED: 365730482 Status: stable, progressing Assessment/Plan off abx per id resp care suctioning wean as able feeds monitor h/h/labs- diuresis dc planning to [facility] if bed available await resolution of insurance issues Subjective ROS Limited/Unobtainable: Yes Constitutional: Reports: malaise, weakness HEENT: Reports: no symptoms Cardiovascular: Reports: no symptoms Respiratory: Reports: cough Gastrointestinal/Abdominal: Reports: no symptoms Genitourinary: Reports: no symptoms Neurologic/Psychiatric: Reports: anxiety Endocrine: Reports: no symptoms Hematologic/Lymphatic: Reports: no symptoms Allergies: Coded Allergies: PENICILLINS (Verified Allergy, Unknown, 07/31/16) All Systems: reviewed and negative except above Subjective on the vent. no events, tolerating feeds. decreased edema. no chest pain. minimal congestion. anxious off abx now. ?insurance problems per home health care case manager Objective Last 24 Hour Vital Signs Date Time Temp Pulse Resp B/P Pulse Ox O2 Delivery O2 Flow Rate FiO2 08/14/16 16:10 30 08/14/16 16:08 98.1 70 16 100/48 98 Mechanical Ventilator 30 08/14/16 14:31 77 14 30 08/14/16 12:53 80 14 30 08/14/16 12:00 30 08/14/16 12:00 75 08/14/16 12:00 97.0 77 14 93/58 98 Mechanical Ventilator 30 08/14/16 10:54 75 14 30 08/14/16 09:03 83 14 30 08/14/16 08:33 89 08/14/16 08:00 30 08/14/16 08:00 72 08/14/16 08:00 97.7 84 14 110/58 99 Mechanical Ventilator 30 08/14/16 06:50 89 14 30 08/14/16 05:30 86 14 30 08/14/16 04:04 30 08/14/16 04:00 83 08/14/16 04:00 97.4 74 14 109/56 98 Mechanical Ventilator 30 08/14/16 03:55 30 08/14/16 03:50 83 08/14/16 03:13 82 14 30 08/14/16 01:16 90 14 30 08/14/16 00:00 30 08/14/16 00:00 97.0 82 14 113/62 95 Mechanical Ventilator 30 08/14/16 00:00 79 08/13/16 23:00 91 17 30 08/13/16 21:20 86 14 30 08/13/16 20:00 75 08/13/16 20:00 98.2 69 14 93/50 98 Mechanical Ventilator 30 08/13/16 20:00 30 08/13/16 19:25 82 14 30 Intake and Output 08/13/16 08/14/16 19:00 07:00 Intake Total 540 ml 450 ml Output Total 200 ml 240 ml Balance 340 ml 210 ml Free Water 100 ml 50 ml Tube Feeding 440 ml 400 ml Output Urine Total 200 ml 240 ml Height (Feet): 5 Height (Inches): 2.00 Weight (Pounds): 120 Objective General Appearance: WD/WN, lethargic, mild distress Neck: supple Cardiovascular: regular rhythm Respiratory/Chest: few rhonchi - bilaterally Abdomen: normal bowel sounds, non tender, soft, no organomegaly, no mass Edema: +generalized edema noted Neurologic: disoriented, aphasia CHRISTINA HAMMOND Aug 14, 2016 17:10
[2016-08-14] MEDS: Acetaminophen 650mg/20.3ml ORAL PRN (17:47)
[2016-08-14] MEDS ORDERED: LORazepam Inj 2mg/ml 1ml IV PRN (20:45)
[2016-08-14 21:22] VITALS: BP 90/53
[2016-08-15] VITALS: BP 100/52
[2016-08-15 04:00] VITALS: BP 137/84
[2016-08-15 05:09] LABS: ALANINE AMINOTRANSFERASE 15 U/L (3-33); ALBUMIN/GLOBULIN RATIO 0.6 (1.0-2.7); ANION GAP 15 (5-15); ASPARTATE AMINO TRANSFERASE 20 U/L (5-40); CALCIUM 9.8 mg/dL (8.6-10.2); CARBON DIOXIDE 34 mEQ/L (20-30); CHLORIDE 92 mEQ/L (98-107); CREATININE 0.9 mg/dL (0.5-0.9); HEMOLYSIS 7; POTASSIUM 3.3 mEQ/L (3.4-4.9); SODIUM 141 mEQ/L (135-145); TOTAL PROTEIN 7.3 g/dL (6.6-8.7)
--- NOTE | 2016-08-15 07:51 | Pulmonology Progress Note ---
Assessment/Plan Assessment/Plan IMPRESSION: 1. History of tongue cancer. 2. Evidence of bilateral pleural effusion. 3. Respiratory failure. 4. Acute respiratory acidosis. resolved 5. Hypoxemia. 6. Evidence of transient hypotension. 7. Leukocytosis. resolved 8. sepsis. treated 9. Significant lactic acidemia resolved 10. Elevated liver enzymes. 11. Elevated natriuretic peptide. 12. Evidence of anemia. 13. Failure to thrive. 14. Atrial fibrillation, paroxysmal. 15. [facility] PLAN exam without change isolation as is;consider colonization with adequate treatment respiratory care as is oxygen therapy suction as needed monitor trach and secretions transfer to subacute today; patient accepted and son agreeable will convert to GT meds only consider wean; will order and d/w RT impression, plan, and exam edited and reviewed in detail care discussed with RN Subjective ROS Limited/Unobtainable: Yes Allergies: Coded Allergies: PENICILLINS (Verified Allergy, Unknown, 07/31/16) Subjective care noted and reviewed dc planning discussed meds renewed Objective Last 24 Hour Vital Signs Date Time Temp Pulse Resp B/P Pulse Ox O2 Delivery O2 Flow Rate FiO2 08/15/16 06:44 71 14 30 08/15/16 05:01 70 14 30 08/15/16 04:00 30 08/15/16 04:00 98.6 78 20 137/84 95 Mechanical Ventilator 30 08/15/16 03:54 73 08/15/16 02:34 72 14 30 08/15/16 01:30 70 14 30 08/15/16 00:18 72 08/15/16 00:00 98.2 71 14 100/52 95 Mechanical Ventilator 30 08/15/16 00:00 30 08/14/16 23:30 71 14 30 08/14/16 21:30 86 14 30 08/14/16 21:22 97.9 94 18 90/53 97 Mechanical Ventilator 30 08/14/16 20:09 98 08/14/16 20:00 30 08/14/16 19:30 88 14 30 08/14/16 17:24 82 14 30 08/14/16 16:10 30 08/14/16 16:08 98.1 70 16 100/48 98 Mechanical Ventilator 30 08/14/16 15:45 75 08/14/16 14:31 77 14 30 08/14/16 12:53 80 14 30 08/14/16 12:00 30 08/14/16 12:00 75 08/14/16 12:00 97.0 77 14 93/58 98 Mechanical Ventilator 30 08/14/16 10:54 75 14 30 08/14/16 09:03 83 14 30 08/14/16 08:33 89 08/14/16 08:00 30 08/14/16 08:00 72 08/14/16 08:00 97.7 84 14 110/58 99 Mechanical Ventilator 30 Intake and Output 08/14/16 08/15/16 19:00 07:00 Intake Total 680 ml 560 ml Output Total 450 ml 470 ml Balance 230 ml 90 ml Free Water 200 ml 100 ml Tube Feeding 480 ml 400 ml Other 60 ml Output Urine Total 450 ml 470 ml # Bowel Movements 1 Objective GENERAL: A well-developed female, chronically ill. HEENT: Negative. Pupils are sluggish, but reactive. NECK: Supple. Some deformity noted. The patient has a tracheostomy in the midline. Carotids are 2+. LUNGS: Coarse breath sounds. Moderate air entry. without change; no wheeze CARDIAC: Normal S1 and S2. Regular rhythm without murmurs, rubs, or gallops. ABDOMEN: Soft, nontender, and nondistended. No hepatosplenomegaly. EXTREMITIES: No cyanosis or clubbing. There is trace edema. Degenerative joint disease. NEUROLOGICAL: Reduced LOC. reviewed and edited Laboratory Tests 08/15/16 03:20: Sodium Level 141, Potassium Level 3.3L, Chloride Level 92L, Carbon Dioxide Level 34H, Anion Gap 15, Blood Urea Nitrogen 55H, Creatinine 0.9, Estimat Glomerular Filtration Rate , Glucose Level 118H, Calcium Level 9.8, Total Bilirubin 0.3, Aspartate Amino Transf (AST/SGOT) 20, Alanine Aminotransferase ( ALT/SGPT) 15, Alkaline Phosphatase 82, Total Protein 7.3, Albumin 3.0L, Globulin 4.3, Albumin/Globulin Ratio 0.6L Current Medications Medications (Trade) Dose Ordered Sig/Josiah Route PRN Reason Start Time Stop Time Status Last Admin Dose Admin Acetaminophen (Tylenol) 650 mg Q4H PRN ORAL Mild Pain/Temp > 100.5 08/07/16 13:15 09/06/16 13:14 08/14/16 17:47 Amitriptyline HCl (Elavil) 10 mg BEDTIME ORAL 08/06/16 21:00 09/05/16 20:59 08/14/16 21:06 Digoxin (Lanoxin) 0.25 mg DAILY GT 07/31/16 12:30 08/30/16 12:29 08/14/16 08:33 Furosemide (Lasix) 20 mg DAILY ORAL 08/15/16 09:00 09/14/16 08:59 Heparin Sodium (Porcine) (Heparin 5000 units/ml) 5,000 units EVERY 12 HOURS SUBQ 08/01/16 21:00 08/31/16 20:59 08/14/16 21:07 Lorazepam (Ativan 2mg/ml 1ml) 1 mg Q3HR PRN IV For Anxiety 08/14/16 20:45 08/21/16 20:44 Ondansetron HCl (Zofran) 4 mg Q6H PRN IVP Nausea & Vomiting 07/31/16 12:30 08/30/16 12:29 08/06/16 10:06 MARCY MAJOR Aug 15, 2016 07:51
[2016-08-15 08:00] VITALS: BP_SYST 103; BP_SYST 109; BP_DIAS 48; BP_DIAS 51
[2016-08-15] MEDS: Digoxin Elixir 0.125mg GT SCH (08:22)
[2016-08-15] MEDS: Heparin 5000 units/ml inj SUBQ SCH ×2 (08:25→20:40)
--- NOTE | 2016-08-15 09:36 | General Progress Note ---
Assessment/Plan Problem List: (1) Respiratory distress ICD Codes: R06.00 - Dyspnea, unspecified SNOMED: 402659770 (2) Pneumonia ICD Codes: J18.9 - Pneumonia, unspecified organism SNOMED: 187494448 (3) SCC (squamous cell carcinoma) ICD Codes: C44.92 - Squamous cell carcinoma of skin, unspecified SNOMED: 033127092 (4) Tracheostomy in place ICD Codes: Z93.0 - Tracheostomy status SNOMED: 821120913 Status: stable, progressing Assessment/Plan off abx per id resp care suctioning wean as able feeds monitor h/h/labs- dc lasix dc planning to [facility] if bed available await resolution of insurance issues Subjective ROS Limited/Unobtainable: Yes Constitutional: Reports: malaise, weakness HEENT: Reports: no symptoms Cardiovascular: Reports: no symptoms Respiratory: Reports: no symptoms Gastrointestinal/Abdominal: Reports: difficulty swallowing Genitourinary: Reports: no symptoms Neurologic/Psychiatric: Reports: anxiety Endocrine: Reports: no symptoms Hematologic/Lymphatic: Reports: anemia Allergies: Coded Allergies: PENICILLINS (Verified Allergy, Unknown, 07/31/16) All Systems: reviewed and negative except above Subjective on the vent. no events, tolerating feeds. decreased edema. no chest pain. minimal congestion. anxious off abx now. ?insurance problems per bilingual patient support caseworker. increased bun/cr noted. Objective Last 24 Hour Vital Signs Date Time Temp Pulse Resp B/P Pulse Ox O2 Delivery O2 Flow Rate FiO2 08/15/16 09:05 73 14 30 08/15/16 08:22 71 08/15/16 08:00 30 08/15/16 06:44 71 14 30 08/15/16 05:01 70 14 30 08/15/16 04:00 30 08/15/16 04:00 98.6 78 20 137/84 95 Mechanical Ventilator 30 08/15/16 03:54 73 08/15/16 02:34 72 14 30 08/15/16 01:30 70 14 30 08/15/16 00:18 72 08/15/16 00:00 98.2 71 14 100/52 95 Mechanical Ventilator 30 08/15/16 00:00 30 08/14/16 23:30 71 14 30 08/14/16 21:30 86 14 30 08/14/16 21:22 97.9 94 18 90/53 97 Mechanical Ventilator 30 08/14/16 20:09 98 08/14/16 20:00 30 08/14/16 19:30 88 14 30 08/14/16 17:24 82 14 30 08/14/16 16:10 30 08/14/16 16:08 98.1 70 16 100/48 98 Mechanical Ventilator 30 08/14/16 15:45 75 08/14/16 14:31 77 14 30 08/14/16 12:53 80 14 30 08/14/16 12:00 30 08/14/16 12:00 75 08/14/16 12:00 97.0 77 14 93/58 98 Mechanical Ventilator 30 08/14/16 10:54 75 14 30 Intake and Output 08/14/16 08/15/16 19:00 07:00 Intake Total 680 ml 560 ml Output Total 450 ml 470 ml Balance 230 ml 90 ml Free Water 200 ml 100 ml Tube Feeding 480 ml 400 ml Other 60 ml Output Urine Total 450 ml 470 ml # Bowel Movements 1 Laboratory Tests 08/15/16 03:20: Sodium Level 141, Potassium Level 3.3L, Chloride Level 92L, Carbon Dioxide Level 34H, Anion Gap 15, Blood Urea Nitrogen 55H, Creatinine 0.9, Estimat Glomerular Filtration Rate , Glucose Level 118H, Calcium Level 9.8, Total Bilirubin 0.3, Aspartate Amino Transf (AST/SGOT) 20, Alanine Aminotransferase ( ALT/SGPT) 15, Alkaline Phosphatase 82, Total Protein 7.3, Albumin 3.0L, Globulin 4.3, Albumin/Globulin Ratio 0.6L Height (Feet): 5 Height (Inches): 2.00 Weight (Pounds): 120 Objective General Appearance: WD/WN, lethargic, mild distress Neck: supple Cardiovascular: regular rhythm Respiratory/Chest: few rhonchi - bilaterally Abdomen: normal bowel sounds, non tender, soft, no organomegaly, no mass Edema: +generalized edema noted Neurologic: disoriented, aphasia CHRISTINA HAMMOND Aug 15, 2016 09:36
[2016-08-15] MEDS ORDERED: KCl 10% 40mEq/30ml liquid NG ONE (10:00)
[2016-08-15 12:00] VITALS: BP 103/48
[2016-08-15 16:53] VITALS: BP 147/66
[2016-08-15 20:00] VITALS: BP 130/64
[2016-08-15] MEDS ORDERED: Sterile Water Irrig 1000ml IRRIG ONE (21:29)
--- NOTE | 2016-08-17 17:44 | Discharge Summary ---
Discharge Summary Hospital Course Date of Admission Jul 31, 2016 at 06:20 Date of Discharge Aug 15, 2016 at 21:30 Admitting Diagnosis respiratory failure, Pneumoni,metastatic carcinoma HPI Tara Friedman is a 81 year old female who was admitted on Jul 31, 2016 at 06: 20 for Respiratory Failure,Pneumoni,Metastic Carcinoma Hospital Course [id number] Discharge Discharge Disposition Patient was discharged to SNF/Subacute Facility(03) Discharge Diagnoses: Latonya Mercado NP Aug 17, 2016 17:44
--- NOTE | 2016-08-18 01:18 | Discharge Summary 2 SIG ---
DATE OF ADMISSION: 07/31/2016 DATE OF DISCHARGE: 08/15/2016 CONSULTANTS: 1. Rico Madrigal M.D. 2. Sai Charles M.D. BRIEF HOSPITAL COURSE: The patient is a 81-year-old female, who had prior history of squamous cell carcinoma of the tongue, status post resection. She received radiation therapy and hormonal treatment and had been doing well. A little over a month and a half ago, she developed upper GI bleed and was admitted to [facility]. She developed aspiration pneumonia and was intubated on several occasions. She eventually had placement of a tracheostomy. Because of persistent shortness of breath, she was transferred to emergency room where she was diagnosed with aspiration pneumonia and sepsis. Tracheostomy was replaced in the emergency room and the patient was hooked on ventilator. She was followed by infectious disease specialist. The patient was pancultured. Sputum culture showed growth of KPC and was given inhaled colistin. She was given IV hydration and respiratory care. She came in with mid sacral stage III pressure ulcer. Daily wound care was rendered. Electrolytes were replaced. She was eventually discharged to [facility]. FINAL DIAGNOSES: 1. Acute on chronic respiratory failure. 2. Pneumonia. 3. Squamous cell carcinoma. 4. Tracheostomy status. 5. Paroxysmal atrial fibrillation. 6. Elevated liver transaminases. 7. Leukocytosis with sepsis. 8. Evidence of transient hypotension. 9. Mid sacral pressure ulcer, stage III, present on admission. Brice Grove M.D. I have been assigned to dictate discharge summary on this account and I was not involved in the patient's management. Latonya Mercado N.P. DR: Dia JOB#: [id number] CC: [email or web address]
== END 2016-08-15 21:30 | DRG 870 ==
LOC: EDBD 05:03 → EMR 05:46 → EDBEDREQ 05:50 → 2W 06:20 → EDBEDREQ 07:34 → 2W 08-02 20:23
PROC: 5A1955Z Respiratory Ventilation, Greater than 96 Consecutive Hours (ICD-10-PCS; principal; 2016-07-31)
DX: A41.9 Sepsis, unspecified organism (principal); J96.21 Acute and chronic respiratory failure with hypoxia; J15.0 Pneumonia due to Klebsiella pneumoniae; Z99.11 Dependence on respirator [ventilator] status; J90 Pleural effusion, not elsewhere classified; L89.153 Pressure ulcer of sacral region, stage 3; Z93.0 Tracheostomy status; I48.0 Paroxysmal atrial fibrillation; Z85.810 Personal history of malignant neoplasm of tongue; R62.7 Adult failure to thrive; D64.9 Anemia, unspecified; Z93.1 Gastrostomy status; R65.20 Severe sepsis without septic shock; F41.9 Anxiety disorder, unspecified; R13.10 Dysphagia, unspecified
CPT/HCPCS: 36415; 36600; 71010; 80048; 80053; 80150; 80202; 81003; 82550; 82553; 82803; 83605; 83690; 83735; 83880; 84484; 85007; 85025; 85610; 85730; 86850; 86900; 86901; 86920; 87040; 87070; 87081; 87086; 87181; 87205; 87493; 93005; 93970; 94002; 94003; 94640; J2405; J7620

== ENCOUNTER 2016-08-17 09:54 | Emergency (ER) | payer MEDICARE, BC ==
[~2016-08-17] VITALS: Ht 160 cm; Wt 63.5 kg
[~2016-08-17 09:54] MED LIST: ACETAMINOPHEN120 MG RECTAL; DIGOXIN250 MCG GT; ELIQUIS2.5 MG GT; IPRATROPIU0.2 MG/1 M IN-LINE; LEVOTHYROXINE75 MCG GT; OMEPRAZOLE20 M3 GT; PANTOPRAZOLE SO40 MG GT; TRAMADOL HCL50 MG GT; VITAMIN D250000 UNI1 GT; ZOFRAN4 M3 GT
[2016-08-17 10:02] VITALS: BP 114/72
[2016-08-17 10:26] VITALS: BP 114/72
--- NOTE | 2016-08-17 14:02 | Emergency Room Report ---
History of Present Illness General Chief Complaint: Malfunctioning Gastric Tube Source: Medical Record Present Illness HPI 81-year-old female presents ED for G-tube placement. Per EMS patient pulled a G -tube at her SNF today. Nursing placed a Carey catheter. Upon arrival patient showing no signs of distress. No reported abdominal pain nausea or vomiting. Patient is also trach/ventilator patient. No other aggravating or relieving factors. Denies any other associated symptom Allergies: Coded Allergies: PENICILLINS (Verified Allergy, Unknown, 07/31/16) Patient History Past Medical History: AFib Past Surgical History: other - Gtube Pertinent Family History: none Social History: Denies: alcohol use, drug use, smoking Now: No Immunizations: UTD Reviewed Nursing Documentation: PMH: Agreed, PSxH: Agreed Nursing Documentation-PMH Past Medical History: No History, Except For Hx Cardiac Problems: Yes - A FIB,DVT RT UPPER EXTREMITY Hx Cancer: Yes - MOUTH CA Hx Gastrointestinal Problems: Yes Hx Neurological Problems: Yes Hx Speech Problem: Yes Hx Weakness: Yes Review of Systems All Other Systems: negative except mentioned in HPI Physical Exam Vital Signs Date Time Temp Pulse Resp B/P Pulse Ox O2 Delivery O2 Flow Rate FiO2 08/17/16 09:56 98.2 71 16 114/72 98 Mechanical Ventilator 30 Sp02 EP Interpretation: reviewed, normal General Appearance: no apparent distress, alert, GCS 15, non-toxic Head: normocephalic Eyes: bilateral eye PERRL, bilateral eye normal inspection ENT: normal ENT inspection Neck: normal inspection Respiratory: normal inspection Cardiovascular #1: normal inspection Gastrointestinal: normal bowel sounds, non tender, soft, non-distended, no guarding, no rebound, other - Gtube site C/D/I Rectal: deferred Genitourinary: no CVA tenderness Musculoskeletal: normal inspection Neurologic: normal inspection Psychiatric: normal inspection Skin: normal inspection Lymphatic: normal inspection Procedures Additional Procedure Procedure Narrative G-tube placement Patient placed on stretcher. Old G-tube is removed by deflating the balloon using syringe. G-tube site is inspected with no contraindications to G-tube placement. G-tube slowly inserted until resistance is met; G-tube balloon is slowly filled with 20 mL of normal saline and slowly retracted back until resistance is met. G-tube placement is confirmed with KUB study using Gastrografin Medical Decision Making Diagnostic Impression: Primary Impression: Malfunction of gastrostomy tube ER Course Hospital Course 81-year-old female presents to ED for G-tube placement. Pulled out G-tube at [facility] Clinical course Patient placed on stretcher. After initial history and physical I replaced G- tube and inflate the balloon. G-tube placement confirmed with KUB study. Patient remained stable without any signs of distress. longterm called and patient subsequently discharged back to facility. Diagnosis - malfunction of G tube stable and discharged back to facility. Followup with PMD. Return to ED if symptoms recur or worsen Other X-Ray Diagnostic Results Other X-Ray Diagnostic Results : X-Ray Ordered: KUB EP Interpretation: Yes Findings: no fractures, no dislocation, no soft tissue swelling, other - Gtube in place. no extravsation Number of Views: 1 Last Vital Signs Date Time Temp Pulse Resp B/P Pulse Ox O2 Delivery O2 Flow Rate FiO2 08/17/16 10:26 98.2 77 16 114/72 98 Mechanical Ventilator 30 Status: improved Disposition: XFER SNF Condition: Stable Referrals: MARCY MAJOR (PCP) Patient Instructions: Gastrostomy Tube Home Guide, Adult JYOTHI LOGAN M.D. Aug 17, 2016 14:02
--- NOTE | 2016-08-17 14:40 | Diagnostic Imaging Report ---
Indication: Status post gastrostomy replacement Technique: Supine view of the abdomen after injection of water-soluble contrast into gastrostomy Comparison: none Findings: Contrast opacifies the stomach. No contrast extravasation is demonstrated. The bowel gas pattern is unremarkable. Impression: Satisfactory position of gastrostomy tube Findings previously discussed by phone with Dr. Castaneda
== END 2016-08-17 10:26 ==
LOC: EDBD 09:54 → EMR 10:26
DX: Z43.1 Encounter for attention to gastrostomy (principal); I48.91 Unspecified atrial fibrillation; Z85.818 Personal history of malignant neoplasm of other sites of lip, oral cavity, and pharynx; Z86.718 Personal history of other venous thrombosis and embolism; Z88.0 Allergy status to penicillin; Z93.0 Tracheostomy status; Z99.11 Dependence on respirator [ventilator] status
CPT/HCPCS: 43760; 74000; 99284; Q9963

== ENCOUNTER 2016-09-19 12:27 | Inpatient (IN) | payer MEDICARE, BC ==
[~2016-09-19] VITALS: Ht 147.3 cm; Wt 52.2 kg
[2016-09-19 13:05] VITALS: BP 100/51
[2016-09-19] MEDS ORDERED: Vancomycin 1gm inj IVPB ONE (13:49)
[2016-09-19 13:57] LABS: APPEARANCE,URINE CLEAR; KETONES,URINE NEGATIVE (NEGATIVE); LEUKOCYTE ESTERASE ,URINE 1+ (NEGATIVE); NITRITE,URINE NEGATIVE (NEGATIVE); PH,URINE 5 (4.5-8.0); PROTEIN,URINE 1+ (NEGATIVE); UROBILINOGEN,URINE NORMAL MG/DL (0.0-1.0)
--- NOTE | 2016-09-19 13:59 | Emergency Room Report ---
History of Present Illness General Chief Complaint: General Complaint Present Illness HPI 81YOF sent from SNF for hypotension. Patient vent dependent, non contributory to HPI currently. Per paperwork: 09/14: Leuks 12 09/15: Elevated Dig level 2.8 PMHx: Atrial fib, GERD, PNA, depression, Right upper extremity DVT, malignancy of face/neck Allergies: Coded Allergies: PENICILLINS (Verified Allergy, Unknown, 07/31/16) Patient History Past Medical History: other - see hpi Past Surgical History: unable to obtain Pertinent Family History: unable to obtain Social History: Denies: alcohol use, drug use, smoking Now: No Immunizations: UTD Reviewed Nursing Documentation: PMH: Agreed, PSxH: Agreed Nursing Documentation-PMH Hx Cardiac Problems: Yes - A FIB,DVT RT UPPER EXTREMITY Hx Cancer: Yes - MOUTH CA Hx Gastrointestinal Problems: Yes Hx Neurological Problems: Yes Hx Speech Problem: Yes Hx Weakness: Yes Review of Systems All Other Systems: negative except mentioned in HPI Physical Exam Vital Signs Date Time Temp Pulse Resp B/P Pulse Ox O2 Delivery O2 Flow Rate FiO2 09/19/16 13:02 80 20 100/81 100 Mechanical Ventilator Sp02 EP Interpretation: reviewed, normal General Appearance: normal inspection, well appearing, no apparent distress, alert, GCS 15, non-toxic Head: normocephalic, atraumatic Eyes: bilateral eye EOMI, bilateral eye PERRL ENT: normal ENT inspection, hearing grossly normal, normal voice Neck: normal inspection, full range of motion, supple, no bony tend, other - trach in place, no air leak or muscous plug Respiratory: normal inspection, lungs clear, normal breath sounds, no respiratory distress, no retraction, no wheezing Cardiovascular #1: regular rate, rhythm, no edema Gastrointestinal: normal inspection, normal bowel sounds, non tender, soft, no guarding, no hernia Genitourinary: no CVA tenderness Musculoskeletal: normal inspection, back normal, normal range of motion, Sherly' s Sign negative Neurologic: normal inspection, alert, responsive, patient service specialist III-XII nml as tested, motor strength/tone normal, speech normal Psychiatric: normal inspection, judgement/insight normal, mood/affect normal Skin: normal inspection Medical Decision Making Diagnostic Impression: Primary Impression: Hypotension Qualified Codes: I95.9 - Hypotension, unspecified ER Course 81YO F vent-dependent patient from SNF for hypotension. Vitals stable on arrival here Connected to vent Patient non-contributory to HPI - all info from SNF packet PLAN Will tx empirically for sepsis with broad-spectrum Abx, IVF bolus Labs, Blood Cx pending IV placed but patient with difficult IV access Labs delayed as were waiting for phlebotomy Endorsed to Dr Grove at 145pm for ANNALISA admission Endorsed to Dr Castaneda at 230pm to followup labs EKG Diagnostic Results Rate: other - ectopic atrial rhythm ST Segments: other - TWI in 2, 3, AVF and lateral leads ASA given to the pt in ED: No Rhythm Strip Diag. Results EP Interpretation: yes Rate: 78 Rhythm: NSR, no PVC's, no ectopy Chest X-Ray Diagnostic Results EP Interpretation: Yes Findings: no consolidation, no effusion, no pneumothorax, no acute cardiopulmonary disease Number of Views: 1 Last Vital Signs Date Time Temp Pulse Resp B/P Pulse Ox O2 Delivery O2 Flow Rate FiO2 09/19/16 13:05 79 20 100/51 100 Mechanical Ventilator Status: improved Disposition: ADMITTED INPATIENT Condition: Critical Referrals: MARCY GROVE (PCP) JERRY WHITTEN M.D. Sep 19, 2016 13:59
[2016-09-19] MEDS ORDERED: Vancomycin 1 GM in NS 275 ML IV ONE (14:00)
[2016-09-19] MEDS ORDERED: Clindamycin 900mg 50 ML IVPB ONE (14:00)
[2016-09-19 14:17] LABS: RBC,URINE 0-2 /HPF (0 - 2); SQUAMOUS EPITHELIAL CELL,UR FEW /LPF (NONE/OCC)
[2016-09-19 14:18] LABS: BACTERIA,URINE FEW /HPF
[2016-09-19 15:03] LABS: BASOPHILS % (AUTO) 0.4 % (0.0-2.0); EOSINOPHILS % (AUTO) 0.6 % (0.0-3.0); LYMPHOCYTES % (AUTO) 8.1 % (20.0-45.0); MEAN CORPUSCULAR HEMOGLOBIN 29.3 PG (27.0-31.0); MEAN CORPUSCULAR HGB CONC 29.9 G/DL (32.0-36.0); MEAN CORPUSCULAR VOLUME 98 FL (80-99); MEAN PLATELET VOLUME 9.3 FL (6.5-10.1); MONOCYTES % (AUTO) 7.7 % (1.0-10.0); NEUTROPHILS % (AUTO) 83.2 % (45.0-75.0); PLATELET COUNT 151 K/UL (150-450); RED BLOOD COUNT 3.68 M/UL (4.20-5.40); WHITE BLOOD COUNT 16.9 K/UL (4.8-10.8)
[2016-09-19 15:25] VITALS: BP 93/44
[2016-09-19 15:27] LABS: TROPONIN I < 0.30 ng/mL (<=0.30)
[2016-09-19 15:30] LABS: ALANINE AMINOTRANSFERASE 19 U/L (3-33); ALBUMIN/GLOBULIN RATIO 0.6 (1.0-2.7); ANION GAP 7 (5-15); ASPARTATE AMINO TRANSFERASE 21 U/L (5-40); CALCIUM 7.6 mg/dL (8.6-10.2); CARBON DIOXIDE 37 mEQ/L (20-30); CHLORIDE 120 mEQ/L (98-107); CREATININE 1.9 mg/dL (0.5-0.9); HEMOLYSIS 10; POTASSIUM 3.2 mEQ/L (3.4-4.9); TOTAL PROTEIN 5.9 g/dL (6.6-8.7)
[2016-09-19 15:31] LABS: SODIUM 164 mEQ/L (135-145)
[2016-09-19 15:40] LABS: CKMB < 1.5 ng/mL (< 3.8)
[2016-09-19] MEDS ORDERED: ATIVAN1 MG GT (15:47)
[2016-09-19] MEDS ORDERED: DIGOXIN0.25 MG/5 GT (15:47)
[2016-09-19] MEDS ORDERED: ACETAMINOPHEN325 M1 GT (16:17)
[2016-09-19] MEDS ORDERED: ZOFRAN4 M3 GT (16:17)
[2016-09-19] MEDS ORDERED: AMITRIPTYLINE25 MG GT (16:17)
[2016-09-19] MEDS ORDERED: DOCUSATE SODIU100 M2 GT (16:17)
[2016-09-19] MEDS ORDERED: FUROSEMIDE40 MG GT (16:17)
--- NOTE | 2016-09-19 16:34 | Diagnostic Imaging Report ---
Indication: SOB Technique: One view of the chest Comparison: 08/03/2016 Findings: There is a 2 cm diameter ovoid opacity projected in the left mid to lower lung just lateral to the heart border. This is not definitely evident previously, but could have been obscured by overlying tubing. The remainder of the lungs and pleural spaces are clear. Heart size is normal. Tracheostomy again demonstrated. Impression: 2 cm left lung nodule, not evident previously but could have been obscured.. Differential considerations include focal infiltrate, neoplasm. Followup as clinically indicated No acute process otherwise Findings discussed by phone with Dr. Lyons in the emergency room at the time of interpretation
[2016-09-19 17:26] VITALS: BP 92/40
[2016-09-19] MEDS ORDERED: Piperacillin/Tazobactam 4.5 GM in D5W 110 ML IVPB SCH (18:00)
[2016-09-19] MEDS: LORazepam 1mg tab GT SCH (18:00)
[2016-09-19] MEDS ORDERED: Acetaminophen 650mg/20.3ml GT PRN (18:15)
[2016-09-19 20:00] VITALS: BP 107/81
[2016-09-19 20:59] LABS: URIC ACID 10.1 mg/dL (3.0-7.5)
--- NOTE | 2016-09-19 22:19 | Wound Care Consultation ---
Wound Assessment Wound Assessment #1: Wound Present on Admission: Yes New Wound: No Status Change of Wound: No Wound Location Body Site Modif: left Wound Location Body Site: sacral Wound Type: pressure ulcer Ross Test: Does not Ross Pressure Ulcer Stage: III Wound Thickness: Full Thickness Wound Length: 1.0 Wound Width: 1.0 Wound Depth: 0.3 Percent of Wound Seaview/Red: 100 Wound Drainage Description: Serosanguineous Wound Drainage Amount: Scant Wound Drainage Odor: None/Absent Tissue Surrounding Wound: Erythemic Wound General Appearance: Reddened Wound Assessment #2: Wound Number: #2 Wound Present on Admission: Yes New Wound: No Status Change of Wound: No Wound Location Body Site Modif: right Wound Location Body Site: sacral Wound Type: pressure ulcer Ross Test: Does not Ross Pressure Ulcer Stage: III Wound Thickness: Full Thickness Wound Length: 1.0 Wound Width: 0.5 Wound Depth: 0.3 Percent of Wound Seaview/Red: 100 Wound Drainage Description: Serosanguineous Wound Drainage Amount: Scant Wound Drainage Odor: None/Absent Tissue Surrounding Wound: Erythemic Wound General Appearance: Reddened Wound Comment #1 Left aspect of sacral area stage III pressure ulcer #2 Right aspect of sacral area stage III pressure ulcer Recommendation -Sacral area pressure ulcers Cleanse with saline, pat dry, apply Triad cream to wound bed and periwound area , cover with Bordered gauze daily and PRN soiled/dislodged -Low air loss mattress -Offload both heels -Heel protector on both heels -Turn and reposition -Keep clean and dry -Optimize nutrition -Assess and f/u accordingly for any changes TOMA CORTES RN Sep 19, 2016 22:19
[2016-09-19] MEDS: Heparin 5000 units/ml inj SUBQ SCH (22:23)
[2016-09-19] MEDS: Aztreonam Inj 0.5 GM in D5W 55 ML IVPB SCH (22:34)
[2016-09-19] MEDS: Docusate 100mg tablet GT SCH (22:34)
[2016-09-19 23:29] LABS: ANION GAP 12 (5-15); CALCIUM 7.1 mg/dL (8.6-10.2); CARBON DIOXIDE 32 mEQ/L (20-30); CHLORIDE 118 mEQ/L (98-107); CREATININE 1.5 mg/dL (0.5-0.9); HEMOLYSIS 20; POTASSIUM 3.4 mEQ/L (3.4-4.9)
[2016-09-20] VITALS (7 sets, daily range): BP systolic 86–105; BP diastolic 43–55
[2016-09-20 00:07] LABS: SODIUM 162 mEQ/L (135-145)
[2016-09-20 05:21] LABS: BASOPHILS % (AUTO) 0.4 % (0.0-2.0); EOSINOPHILS % (AUTO) 1.5 % (0.0-3.0); LYMPHOCYTES % (AUTO) 8.5 % (20.0-45.0); MEAN CORPUSCULAR HEMOGLOBIN 30.6 PG (27.0-31.0); MEAN CORPUSCULAR HGB CONC 31.2 G/DL (32.0-36.0); MEAN CORPUSCULAR VOLUME 98 FL (80-99); MEAN PLATELET VOLUME 9.4 FL (6.5-10.1); MONOCYTES % (AUTO) 6.1 % (1.0-10.0); NEUTROPHILS % (AUTO) 83.6 % (45.0-75.0); PLATELET COUNT 136 K/UL (150-450); RED BLOOD COUNT 3.48 M/UL (4.20-5.40); RED CELL DISTRIBUTION WIDTH 14.8 % (11.6-14.8); WHITE BLOOD COUNT 12.9 K/UL (4.8-10.8)
[2016-09-20 05:45] LABS: ANION GAP 11 (5-15); CALCIUM 7.4 mg/dL (8.6-10.2); CARBON DIOXIDE 33 mEQ/L (20-30); CHLORIDE 121 mEQ/L (98-107); CREATININE 1.3 mg/dL (0.5-0.9); HEMOLYSIS 11; POTASSIUM 3.3 mEQ/L (3.4-4.9)
[2016-09-20 05:50] LABS: SODIUM 165 mEQ/L (135-145)
--- NOTE | 2016-09-20 08:09 | History and Physical Report ---
DATE OF ADMISSION: 09/19/2016 REASON FOR ADMISSION: Hyponatremia and possible sepsis. HISTORY OF PRESENT ILLNESS: This is a 81-year-old female who was noted to be hypotensive and was sent to emergency room. The patient presented to the Emergency Room at [place]. She was found to have a possible UTI. The patient had recent labs and she appeared to be within normal. However, labs repeated showed significant renal impairment. The patient was unable to give much more history. The patient however is pleasant and hemodynamically stable currently. Blood pressure is low normal. The patient is fully dependent. She has been trying to wean at the SNF. The patient was initially seen by myself over the weekend. She was at baseline. The patient however has multiple medical problems and multiple medical issues. PAST MEDICAL HISTORY: Notable for chronic respiratory failure, GERD, prior history of pneumonia, head and neck cancer, G-tube, and history of dysrhythmias. MEDICATIONS: Reviewed. ALLERGIES: Reviewed. PAST SURGICAL HISTORY: The patient has undergone a trach and GT SOCIAL HISTORY: The patient resides in a SNF REVIEW OF SYSTEMS: unable PHYSICAL EXAMINATION: GENERAL: This is a well-developed female, comfortable with compliant of pain. VITAL SIGNS: Blood pressure 140/73, respirations 12, temperature 96.6, and saturation 100%. HEENT: Fairly negative. Extraocular movements are intact. The patient's tracheostomy is midline. tongue lesion noted NECK: Supple. No adenopathy. LUNGS: Otherwise, fairly clear and symmetric. CARDIAC: S1 and S2. Regular, rate, and rhythm without murmurs, rubs, or gallops. ABDOMEN: Soft, nontender, and nondistended. EXTREMITIES: No cyanosis, clubbing, or edema. NEUROLOGIC: The patient is weak, nonfocal, and reduced LOC LABORATORY DATA: Digoxin now within normal limits at 1.2. Sodium 164 and potassium 3.2. BUN 112 and creatinine 1.9. The patient's albumin is 2.3. White cell count 16.9, hemoglobin 10, hematocrit 36, and platelets 151,000. IMPRESSION: 1. Respiratory failure, chronic encephalopathy. 2. Left lung nodule previously. 3. 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 4. Respiratory failure. 5. Tracheostomy G-tube. 6. Hypernatremia. 7. Acute renal failure. 8. Lower extremity deep vein thrombosis per history. Recommendations: Supportive care. continue senior care medications without Lasix, potassium; IV hydration with renal evaluation. The patient is penicillin allergic but will give empiric antibiotics. We discussed with consulting team and plan of care reviewed. We will obtain ENT evaluation. We will obtain ID evaluation. We will obtain renal evaluation. will update son as to findings and discuss plan of care Brice Grove M.D. DR: BERNICE JOB#: [id number] CC: MCKENZIE
--- NOTE | 2016-09-20 08:51 | General Progress Note ---
Assessment/Plan Assessment/Plan IMPRESSION: 1. Respiratory failure, chronic encephalopathy. 2. Left lung nodule 3. Tongue cancer with mets 4. Respiratory failure. 5. Tracheostomy G-tube. 6. Hypernatremia. 7. Acute renal failure. 8. Lower extremity deep vein thrombosis per history. PLAN ventilator as is hypotonic fluids IV antibiotics continue SNF meds follow up labs closely ANNALISA care follow up with son and update as to care tongue lesion-ENT called impression, plan, and exam edited and reviewed in detail care discussed with RN Subjective ROS Limited/Unobtainable: Yes Allergies: Coded Allergies: PENICILLINS (Verified Allergy, Unknown, 07/31/16) Subjective labile blood pressure still with elevated sodium Objective Last 24 Hour Vital Signs Date Time Temp Pulse Resp B/P Pulse Ox O2 Delivery O2 Flow Rate FiO2 09/20/16 08:00 97.5 70 16 95/55 99 Mechanical Ventilator 40 09/20/16 06:49 76 14 40 09/20/16 05:30 74 13 40 09/20/16 05:22 77 16 92/51 Mechanical Ventilator 40 09/20/16 04:00 97.6 69 16 86/46 100 Mechanical Ventilator 40 09/20/16 04:00 40 09/20/16 03:43 69 09/20/16 03:30 70 16 40 09/20/16 00:59 69 20 40 09/20/16 00:00 97.0 67 12 98/55 100 Mechanical Ventilator 40 09/20/16 00:00 40 09/19/16 23:40 67 09/19/16 23:10 120 12 40 09/19/16 21:30 72 14 40 09/19/16 20:00 97.0 67 16 107/81 100 Mechanical Ventilator 40 09/19/16 19:30 73 15 40 09/19/16 19:17 59 09/19/16 18:24 67 09/19/16 17:29 75 14 40 09/19/16 17:26 96.6 73 12 92/40 100 Mechanical Ventilator 40 09/19/16 17:18 74 20 Mechanical Ventilator 40 09/19/16 16:40 98.0 74 20 113/51 100 Mechanical Ventilator 09/19/16 16:38 40 09/19/16 15:25 98.0 78 20 93/44 100 Mechanical Ventilator 09/19/16 14:55 80 12 40 09/19/16 13:05 79 20 100/51 100 Mechanical Ventilator 09/19/16 13:02 80 20 100/81 100 Mechanical Ventilator 09/19/16 12:40 78 17 40 09/19/16 12:40 78 17 Mechanical Ventilator 40 Intake and Output 09/19/16 09/20/16 19:00 07:00 Intake Total 125 ml 1315 ml Output Total 550 ml 400 ml Balance -425 ml 915 ml Intake Oral 0 ml IV Total 125 ml 875 ml Tube Feeding 440 ml Output Urine Total 550 ml 400 ml # Bowel Movements 1 5 Laboratory Tests 09/19/16 13:45: Urine Color Yellow, Urine Appearance Clear, Urine pH 5, Urine Specific [place] 1.015, Urine Protein 1+H, Urine Glucose (UA) Negative, Urine Ketones Negative, Urine Occult Blood Negative, Urine Nitrite Negative, Urine Bilirubin Negative, Urine Urobilinogen Normal, Urine Leukocyte Esterase 1+H, Urine RBC 0-2, Urine WBC 2-4, Urine Squamous Epithelial Cells Few, Urine Bacteria Few 09/19/16 14:45: White Blood Count 16.9H, Red Blood Count 3.68L, Hemoglobin 10.8L, Hematocrit 36.1L, Mean Corpuscular Volume 98, Mean Corpuscular Hemoglobin 29.3, Mean Corpuscular Hemoglobin Concent 29.9L, Red Cell Distribution Width 15.0H, Platelet Count 151, Mean Platelet Volume 9.3, Neutrophils (%) (Auto) 83.2H, Lymphocytes (%) (Auto) 8.1L, Monocytes (%) (Auto) 7.7, Eosinophils (%) (Auto) 0.6, Basophils (%) (Auto) 0.4, Sodium Level 164*H, Potassium Level 3.2L, Chloride Level 120H, Carbon Dioxide Level 37H, Anion Gap 7, Blood Urea Nitrogen 104H, Creatinine 1.9H, Estimat Glomerular Filtration Rate , Glucose Level 123H, Lactic Acid Level 1.00, Uric Acid 10.1H, Calcium Level 7.6L, Total Bilirubin < 0.2, Aspartate Amino Transf (AST/SGOT) 21, Alanine Aminotransferase (ALT/SGPT) 19, Alkaline Phosphatase 78, Total Creatine Kinase 44, Creatine Kinase MB < 1.5 , Creatine Kinase MB Relative Index , Troponin I < 0.30, Pro-B-Type Natriuretic Peptide 1926H, Total Protein 5.9L, Albumin 2.3L, Globulin 3.6, Albumin/Globulin Ratio 0.6L, Digoxin Level 1.2 09/19/16 23:00: Sodium Level 162*H, Potassium Level 3.4, Chloride Level 118H, Carbon Dioxide Level 32H, Anion Gap 12, Blood Urea Nitrogen 89H, Creatinine 1.5H, Estimat Glomerular Filtration Rate , Glucose Level 172H, Calcium Level 7.1L 09/20/16 00:15: Stool Occult Blood [Pending] 09/20/16 03:25: White Blood Count 12.9H, Red Blood Count 3.48L, Hemoglobin 10.7L, Hematocrit 34.2L, Mean Corpuscular Volume 98, Mean Corpuscular Hemoglobin 30.6, Mean Corpuscular Hemoglobin Concent 31.2L, Red Cell Distribution Width 14.8, Platelet Count 136L, Mean Platelet Volume 9.4, Neutrophils (%) (Auto) 83.6H, Lymphocytes (%) (Auto) 8.5L, Monocytes (%) (Auto) 6.1, Eosinophils (%) (Auto) 1.5, Basophils (%) (Auto) 0.4, Sodium Level 165*H, Potassium Level 3.3L, Chloride Level 121H, Carbon Dioxide Level 33H, Anion Gap 11, Blood Urea Nitrogen 76H, Creatinine 1.3H, Estimat Glomerular Filtration Rate , Glucose Level 137H, Calcium Level 7.4L Height (Feet): 4 Height (Inches): 10.00 Weight (Pounds): 115 Objective GENERAL: This is a well-developed female, comfortable with compliant of pain. HEENT: Fairly negative. Extraocular movements are intact. The patient's tracheostomy is midline. NECK: Supple. No adenopathy. LUNGS: Otherwise, fairly clear and symmetric. CARDIAC: S1 and S2. Regular, rate, and rhythm without murmurs, rubs, or gallops. ABDOMEN: Soft, nontender, and nondistended.no HSM EXTREMITIES: No cyanosis, clubbing, or edema. NEUROLOGIC: The patient is weak, nonfocal, MARCY MAJOR Sep 20, 2016 08:51
[2016-09-20] MEDS ORDERED: Docusate 250mg cap ORAL SCH (09:00)
[2016-09-20] MEDS: Docusate 100mg tablet GT SCH (09:00)
[2016-09-20] MEDS ORDERED: Docusate 100mg tablet ORAL SCH (09:00)
[2016-09-20] MEDS ORDERED: Furosemide 40mg tab GT SCH (09:00)
[2016-09-20] MEDS: LORazepam 1mg tab GT SCH ×3 (09:39→18:26)
[2016-09-20] MEDS: Aztreonam Inj 0.5 GM in D5W 55 ML IVPB SCH ×2 (09:40→21:38)
[2016-09-20] MEDS: Heparin 5000 units/ml inj SUBQ SCH ×2 (09:45→21:43)
[2016-09-20] MEDS ORDERED: Tubing IV Secondary IV ONE (09:48)
[2016-09-20] MEDS ORDERED: 1/2 NS 1000ml IV ONE (09:48)
[2016-09-20] MEDS ORDERED: Sterile Water Irrig 1000ml IRRIG ONE (09:48)
[2016-09-20] MEDS: Vancomycin 500mg/D5W 110ml IVPB SCH ×2 (11:32)
[2016-09-20 15:10] LABS: ANION GAP 10 (5-15); CALCIUM 7.6 mg/dL (8.6-10.2); CARBON DIOXIDE 32 mEQ/L (20-30); CHLORIDE 115 mEQ/L (98-107); HEMOLYSIS 5; SODIUM 157 mEQ/L (135-145)
--- NOTE | 2016-09-20 20:39 | Consultation ---
DATE OF CONSULTATION: 09/20/2016 HEAD AND NECK SURGERY/ENT CONSULTATION CONSULTING PHYSICIAN: Iban Carmona M.D. REQUESTING PHYSICIAN: Brice Grove M.D. INDICATION FOR CONSULTATION: I have been asked to evaluate a tumor in the patient's tongue. She had been admitted via the emergency room for respiratory issues. She was admitted from a SNF. She wants to go. She developed respiratory distress according to the record and had a tracheostomy and a G-tube placed. 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 She had chemotherapy and appears to be metastatic. She is not awake or alert when I went in to visit her. PAST MEDICAL HISTORY: That I am aware of from the chart is that she had a resection of the squamous cell carcinoma in the base of the tongue. Subsequently, she has had a G-tube and tracheostomy. She also has had a small decubitus ulcer, which she was admitted with and documented in the photos. MEDICATIONS: Include vancomycin, sodium chloride, dextrose, Colace, Lasix, heparin, Elavil, Tylenol, lorazepam, piperacillin and vancomycin. ALLERGIES: She is allergic to penicillin. FAMILY HISTORY: Unknown. PHYSICAL EXAMINATION: The patient is 147.32 cm and 52.163 kg. BMI is 24.0 kg/m2. She is lying in bed. Trach site is good. Now, she has a tumor in the base of the tongue and some fullness in her neck. Ears is positive light reflex. Normal canals. 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 I did not do a fiberoptic today in anticipation of determining how far the family wants to go. She has a stable airway and that she has a tracheostomy tube below where the swelling is from the base of tongue, which is most probably recurrent cancer and block lymphatics. PLAN: I have placed a call or I have been in contact with Dr. Grove who is going to speak with the family to see how aggressive they would like as to be. If they would like as to be more aggressive I will go forward with a fiberoptic laryngoscopy to evaluate the oral airway and speak with her ground crew linesman, oncologist, and head and neck surgeon in the past to get an idea of what would be the best route palliation and or unlikely care. I also would suggest that if the family is not interested in being aggressive that we consider palliative care. We do have the team in the hospital that can proceed with that. Thank you very much for asking my opinion in the care and treatment of this patient. Iban Carmona M.D. DR: TERI JOB#: [id number] CC:
[2016-09-20] MEDS ORDERED: KCl 10% 40mEq/30ml liquid GT ONE (20:45)
[2016-09-20] MEDS ORDERED: D5W w/KCl 20mEq 1,000 ML IV SCH (22:00)
[2016-09-21 00:11] VITALS: BP 133/47
--- NOTE | 2016-09-21 01:08 | Consultation ---
DATE OF CONSULTATION: 09/20/2016 INFECTIOUS DISEASES CONSULTATION This consult is for coverage of Dr. Charles. CONSULTING PHYSICIAN: Rodney Caicedo M.D. PRIMARY ATTENDING: Brice Grove M.D. REASON FOR CONSULT: Sepsis. HISTORY OF PRESENT ILLNESS: The patient is a 81-year-old female who is a senior living resident admitted yesterday with hypotension. The patient has chronic respiratory failure, on ventilator and not the source of history. She was found to have leukocytosis, hypernatremia, and acute kidney injury. PAST MEDICAL HISTORY: Significant for ventilatory dependent respiratory failure, depression, right arm DVT, atrial fibrillation that was paroxysmal, and a history of squamous cell carcinoma of thigh. PAST SURGICAL HISTORY: G-tube placement and tracheostomy. MEDICATIONS: Vancomycin, heparin, amitriptyline, Azactam, Colace, Tylenol, lorazepam, and Zofran. ALLERGIES: Penicillin. SOCIAL HISTORY: correction resident with poor mental and functional status. REVIEW OF SYSTEMS: Unobtainable. PHYSICAL EXAMINATION: GENERAL: The patient is sleeping, she is unrestrained. VITAL SIGNS: Temperature 97.9 degrees, pulse 77, and blood pressure 105/50. HEENT: Status post tracheostomy. HEART: Has normal rate. LUNGS: Clear. The patient is on a mechanical ventilator. ABDOMEN: Soft. G-tube placement. EXTREMITIES: She has bilateral sequential compression device of legs. No edema. LABORATORY AND DIAGNOSTIC DATA: WBC today is 12.9, coming down from 16.9 at the time of admission, hemoglobin 10.7, hematocrit 34.2, and platelets 136,000. Sodium 157 coming down from 165, potassium 3, chloride 115, bicarbonate 32, BUN 61, and creatinine 1. UA was negative for nitrite. WBC is positive for leukocyte esterase. Chest x-ray showed a 2 cm left lung nodule. IMPRESSION: 1. Systemic inflammatory response. 2. Rule out sepsis. 3. The patient had hypotension and leukocytosis at the time of admission. 4. Ventilatory dependent respiratory failure. 5. Anemia. 6. Pulmonary nodule. 7. Acute renal failure. 8. Hypernatremia. RECOMMENDATIONS: We will continue with current medication, Azactam and vancomycin. We will follow up with cultures. At the end of my examination, I thank Dr. Grove, for involving me in the care of this patient. Rodney Caicedo M.D. DR: GEORGI JOB#: [id number] CC: MCKENZIE
--- NOTE | 2016-09-21 01:38 | Progress Note ---
DATE: 09/20/2016 CARDIOLOGY PROGRESS NOTE SUBJECTIVE: The patient remains on ventilator support via tracheostomy. She continues on IV fluids. OBJECTIVE: VITAL SIGNS: Blood pressure is low range at 95/55, heart rate 70, and respiratory 16. The patient is afebrile. LUNGS: Bilateral breath sounds with rhonchi. HEART: Regular rhythm and rate. Normal S1 and S2. ABDOMEN: Soft. No edema. LABORATORY DATA: White count 12.9 and hemoglobin 10.7. Urinalysis with no active sediment. Sodium 165, potassium 3.3, chloride 121, bicarbonate 33, BUN 76, and creatinine 1.3. IMPRESSION: 1. Severe dehydration and hypernatremia. 2. Hypokalemia. 3. Hyperchloremia. 4. Prerenal azotemia. 5. 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 6. Ventilator-dependent respiratory failure. 7. Metabolic encephalopathy. PLAN: 1. Hypotonic IV fluids. 2. Ventilator support. 3. ENT evaluation in progress. 4. Potassium replacement. 5. Check magnesium. 6. Antibiotics per primary care physician. Chi Bhatti M.D. DR: MELLY JOB#: [id number] CC:
--- NOTE | 2016-09-21 02:18 | Consultation ---
DATE OF CONSULTATION: 09/19/2016 CARDIOLOGY CONSULTATION REQUESTING PHYSICIAN: Brice Grove M.D. REASON FOR CONSULTATION: Elevated natriuretic peptide assay and severe hypernatremia and dehydration. HISTORY OF PRESENT ILLNESS: This is a 81-year-old female with head and neck cancer of the tongue with metastatic disease. She has a tracheostomy. She has been residing at a [facility] facility. She was transported for evaluation of dysuria and was noted to have abnormal laboratory studies. Because of an elevated natriuretic peptide assay and antiarrhythmic therapy with digitalis, I have been asked to assist with further care. Records are reviewed for the remainder of this report. PAST MEDICAL HISTORY: 1. Head and neck cancer. 2. Ventilator-dependent respiratory failure. 3. Gastroesophageal reflux disease. 4. Dysphagia with gastrostomy tube. 5. Paroxysmal atrial arrhythmias. ALLERGIES: Penicillin. MEDICATIONS: Prior to admission, reviewed and reconciled. SOCIAL HISTORY: No record of smoking or alcohol use. REVIEW OF SYSTEMS: Not obtainable from patient at this time. Pertinent data from records has been outlined above. PHYSICAL EXAMINATION: GENERAL: The patient is alert, but withdrawn. VITAL SIGNS: Blood pressure 93/44, pulse 78, respirations 20 and afebrile. HEENT: Temporal wasting. Oral tongue lesion. Thin trach secretions. LUNGS: Bilateral breath sounds with rhonchi. HEART: Regular rhythm and rate. Normal S1 and S2 with a fourth heart sound. ABDOMEN: Soft with G-tube. EXTREMITIES: No edema. LABORATORY DATA: Digoxin level is 1.2. White count is 16.9 and hemoglobin 10.8. Pro-natriuretic peptide is 1926. Sodium 162, potassium 3.4, chloride 118, bicarbonate 32, BUN 89, and creatinine 1.5. IMPRESSION: 1. Severe dehydration. 2. Hypernatremia. 3. Hypovolemia. 4. Acute renal failure with prerenal azotemia. 5. Chronic diastolic congestive heart failure. 6. Ventilator-dependent respiratory failure. 7. Head and neck cancer with tongue lesion. 8. Hyperchloremia. 9. Metabolic alkalosis. 10. Metabolic encephalopathy. 11. Pneumonia and sepsis. PLAN: 1. Ventilator support. 2. Cardiac monitoring. 3. Hold digoxin. 4. Hydrate with hypotonic fluids. 5. No diuresis. 6. DVT prophylaxis. 7. Monitor electrolytes closely with replacement of electrolytes as needed. Chi Bhatti M.D. DR: MADAN JOB#: [id number] CC:
[2016-09-21] MEDS: D5W w/KCl 20mEq 1,000 ML IV SCH ×3 (02:52→17:27)
[2016-09-21 04:05] VITALS: BP 119/43
[2016-09-21 05:45] LABS: ANION GAP 9 (5-15); CALCIUM 7.9 mg/dL (8.6-10.2); CARBON DIOXIDE 30 mEQ/L (20-30); CHLORIDE 108 mEQ/L (98-107); CREATININE 0.9 mg/dL (0.5-0.9); HEMOLYSIS 16; POTASSIUM 4.2 mEQ/L (3.4-4.9); SODIUM 147 mEQ/L (135-145)
[2016-09-21 05:47] LABS: MAGNESIUM 2.2 mg/dL (1.7-2.5)
[2016-09-21 06:15] LABS: THYROID STIMULATING HORMONE > 100.000 uIU/mL (0.300-4.500)
[2016-09-21 08:00] VITALS: BP 89/57
[2016-09-21] MEDS: LORazepam 1mg tab GT SCH ×3 (08:29→17:27)
[2016-09-21] MEDS: Heparin 5000 units/ml inj SUBQ SCH ×2 (08:30→21:24)
[2016-09-21] MEDS: Docusate 100mg tablet GT SCH (08:33)
[2016-09-21] MEDS: Aztreonam Inj 0.5 GM in D5W 55 ML IVPB SCH (08:48)
[2016-09-21] MEDS: Vancomycin 500mg/D5W 110ml IVPB SCH ×2 (09:55)
--- NOTE | 2016-09-21 09:58 | Consultation ---
DATE OF CONSULTATION: RENAL CONSULTATION REFERRING PHYSICIAN: Brice Grove M.D. REASON FOR CONSULTATION: Hypernatremia and CHERYL. CHIEF COMPLAINT: Hypoxia. HISTORY OF PRESENT ILLNESS: The patient is a 81-year-old half-way lady with a history of tracheostomy and ventilatory support, with head and neck cancer. The patient was sent to [facility] because of hypotension and hypoxia and the patient is a poor historian and could not get any detailed history. In the ER, the patient was found to have a blood pressure of 95/40 and was present and the patient was also found to have sodium of 154 and creatinine of 1.1. The patient was consulted for hypernatremia and yesterday. The patient is a poor historian and I could not get any history. I saw the patient in the morning. The patient had blood pressure of 108/58 on half normal saline 125 mL per hour and then the patient okay. PAST MEDICAL HISTORY: status post PEG and depression and a history of pneumonia, protein malnutrition, history of DVT, hypothyroidism, head and neck cancer, history of CA of tongue and left lung nodule, weakness, and anemia. MEDICATIONS: Few. ALLERGIES: Penicillin. SOCIAL HISTORY: No current smoking, alcohol or drug abuse. FAMILY HISTORY: Noncontributory. PHYSICAL EXAMINATION: VITAL SIGNS: Blood pressure 95/55, heart rate of 70, respirations 15, temperature 97.5 degrees and oxygen saturation is 99% on ventilator, FiO2 of 30%. GENERAL: The patient is in no acute distress, alert, awake. HEENT: Head, atraumatic and normocephalic. Tracheostomy present and . ABDOMEN: Soft and nontender. Bowel sounds present. EXTREMITIES: No edema. . LABORATORY AND DIAGNOSTIC DATA: White count 12.9, hemoglobin 10.6, hematocrit 34.2, and platelet count is 136,000. Sodium of 152, trended back to 165. The patient got one liter of bolus normal saline , chloride 121, bicarbonate 33, BUN 76 and creatinine and glucose is 137. Calcium is 7.4, uric acid level is 10.1, BNP is . Urine shows protein +1, , RBCs 0 to 4 and WBCs 2 to 4. Occult blood was negative. Chest x-ray showed no acute processes. EKG is normal sinus rhythm. ASSESSMENT AND PLAN: 1. Hypernatremia. The patient is given half normal saline. 2. Hyperkalemia. 3. Acute kidney injury. 4. CKD. 5. . 6. Hypotension. Blood pressure is improved. 7. . 8. Questionable urinary tract infection. 9. History of head and neck cancer. 10. History of leg deep vein thrombosis. 11. Ventilatory-dependent respiratory failure. 12. . 13. . 14. . Thank you for the consultation and we will closely follow up. Ave Jennings M.D. DR: BRIAN JOB#: [id number] CC:
--- NOTE | 2016-09-21 10:30 | General Progress Note ---
Assessment/Plan Assessment/Plan IMPRESSION: 1. Respiratory failure, chronic encephalopathy. 2. Left lung nodule 3. Tongue cancer with mets 4. Respiratory failure. 5. Tracheostomy G-tube. 6. Hypernatremia. 7. Acute renal failure. 8. Lower extremity deep vein thrombosis per history. PLAN ventilator as is hypotonic fluids as is monitor labs IV antibiotics and follow up cultures continue SNF meds follow up labs closely ANNALISA care follow up with son and update as to care and changes conservative therapy tongue lesion-ENT appreciated impression, plan, and exam edited and reviewed in detail care discussed with RN Subjective ROS Limited/Unobtainable: Yes Allergies: Coded Allergies: PENICILLINS (Verified Allergy, Unknown, 07/31/16) Subjective improved 20 min d/w son does not want aggressive measures aware of metastatic tongue cancer but notes this is recurring lesion on tongue has had xrt Objective Last 24 Hour Vital Signs Date Time Temp Pulse Resp B/P Pulse Ox O2 Delivery O2 Flow Rate FiO2 09/21/16 09:21 82 16 40 09/21/16 09:00 40 09/21/16 08:00 97.9 82 22 89/57 99 Mechanical Ventilator 40 09/21/16 08:00 79 09/21/16 07:06 79 15 40 09/21/16 04:42 80 22 40 09/21/16 04:05 98.6 75 14 119/43 95 Mechanical Ventilator 40 09/21/16 04:00 40 09/21/16 03:55 80 09/21/16 02:53 78 14 40 09/21/16 00:32 81 15 40 09/21/16 00:11 97.3 76 14 133/47 97 Mechanical Ventilator 40 09/21/16 00:00 40 09/21/16 00:00 71 09/20/16 22:49 72 20 40 09/20/16 20:43 80 14 40 09/20/16 20:13 97.5 69 16 101/43 96 Mechanical Ventilator 40 09/20/16 20:00 40 09/20/16 20:00 70 09/20/16 19:15 78 16 40 09/20/16 17:30 75 14 40 09/20/16 16:00 45 09/20/16 16:00 78 09/20/16 16:00 97.8 65 16 100/51 100 Mechanical Ventilator 40 09/20/16 15:28 77 12 40 09/20/16 13:10 76 12 40 09/20/16 12:43 40 09/20/16 12:43 66 09/20/16 12:00 97.9 66 18 105/50 99 Mechanical Ventilator 40 09/20/16 10:35 70 12 40 Intake and Output 09/20/16 09/21/16 19:00 07:00 Intake Total 1430 ml 2245 ml Output Total 800 ml Balance 1430 ml 1445 ml Free Water 400 ml 600 ml IV Total 750 ml 1245 ml Tube Feeding 280 ml 400 ml Output Urine Total 800 ml # Bowel Movements 4 Laboratory Tests 09/20/16 14:05: Sodium Level 157H, Potassium Level 3.0L, Chloride Level 115H, Carbon Dioxide Level 32H, Anion Gap 10, Blood Urea Nitrogen 61H, Creatinine 1.0H, Estimat Glomerular Filtration Rate , Glucose Level 168H, Calcium Level 7.6L 09/21/16 04:05: Sodium Level 147#H, Potassium Level 4.2, Chloride Level 108H, Carbon Dioxide Level 30, Anion Gap 9, Blood Urea Nitrogen 44H, Creatinine 0.9, Estimat Glomerular Filtration Rate , Glucose Level 129H, Calcium Level 7.9L, Magnesium Level 2.2, Thyroid Stimulating Hormone (TSH) > 100.000H Height (Feet): 4 Height (Inches): 10.00 Weight (Pounds): 115 Objective GENERAL: This is a well-developed female, comfortable with compliant of pain. HEENT: Fairly negative. Extraocular movements are intact. The patient's tracheostomy is midline. NECK: Supple. No adenopathy. LUNGS: Otherwise, fairly clear and symmetric. CARDIAC: S1 and S2. Regular, rate, and rhythm without murmurs, rubs, or gallops. ABDOMEN: Soft, nontender, and nondistended.no HSM EXTREMITIES: No cyanosis, clubbing, or edema. NEUROLOGIC: The patient is weak, nonfocal, MARCY MAJOR Sep 21, 2016 10:30
[2016-09-21 12:00] VITALS: BP 90/54
--- NOTE | 2016-09-21 13:02 | Nephrology Progress Note ---
Assessment/Plan Plan 1. Respiratory failure, chronic encephalopathy. On vent 2. Left lung nodule - stable 3. Tongue cancer with mets. 4. s/pTracheostomy 5.s/p G-tube. 6. Hypernatremia resolving 7. Acute renal failure resolving. 8. Lower extremity deep vein thrombosis per history. Overall better. Subjective Subjective Non verbal Objective Objective Last 24 Hour Vital Signs Date Time Temp Pulse Resp B/P Pulse Ox O2 Delivery O2 Flow Rate FiO2 09/21/16 12:00 40 09/21/16 10:56 78 13 40 09/21/16 09:21 82 16 40 09/21/16 09:00 40 09/21/16 08:00 97.9 82 22 89/57 99 Mechanical Ventilator 40 09/21/16 08:00 79 09/21/16 07:06 79 15 40 09/21/16 04:42 80 22 40 09/21/16 04:05 98.6 75 14 119/43 95 Mechanical Ventilator 40 09/21/16 04:00 40 09/21/16 03:55 80 09/21/16 02:53 78 14 40 09/21/16 00:32 81 15 40 09/21/16 00:11 97.3 76 14 133/47 97 Mechanical Ventilator 40 09/21/16 00:00 40 09/21/16 00:00 71 09/20/16 22:49 72 20 40 09/20/16 20:43 80 14 40 09/20/16 20:13 97.5 69 16 101/43 96 Mechanical Ventilator 40 09/20/16 20:00 40 09/20/16 20:00 70 09/20/16 19:15 78 16 40 09/20/16 17:30 75 14 40 09/20/16 16:00 45 09/20/16 16:00 78 09/20/16 16:00 97.8 65 16 100/51 100 Mechanical Ventilator 40 09/20/16 15:28 77 12 40 09/20/16 13:10 76 12 40 Intake and Output 09/20/16 09/21/16 19:00 07:00 Intake Total 1430 ml 2245 ml Output Total 800 ml Balance 1430 ml 1445 ml Free Water 400 ml 600 ml IV Total 750 ml 1245 ml Tube Feeding 280 ml 400 ml Output Urine Total 800 ml # Bowel Movements 4 Laboratory Tests 09/20/16 14:05: Sodium Level 157H, Potassium Level 3.0L, Chloride Level 115H, Carbon Dioxide Level 32H, Anion Gap 10, Blood Urea Nitrogen 61H, Creatinine 1.0H, Estimat Glomerular Filtration Rate , Glucose Level 168H, Calcium Level 7.6L 09/21/16 04:05: Sodium Level 147#H, Potassium Level 4.2, Chloride Level 108H, Carbon Dioxide Level 30, Anion Gap 9, Blood Urea Nitrogen 44H, Creatinine 0.9, Estimat Glomerular Filtration Rate , Glucose Level 129H, Calcium Level 7.9L, Magnesium Level 2.2, Thyroid Stimulating Hormone (TSH) > 100.000H Height (Feet): 4 Height (Inches): 10.00 Weight (Pounds): 115 Objective On vent. CV RR Lungs CTA. Abd SNT. BS + E no CCE. KYE CISNEROS Sep 21, 2016 13:02
--- NOTE | 2016-09-21 14:08 | Infectious Diseases Prog Note ---
Assessment/Plan Assessment/Plan A; Sepsis, SIRS Diarrhea Dehydration Acute renal failure Likely hypothyroidism VRE colonization P; stop Vancomycin & Azactam Start on Flagyl will f/u C. difficile test Check T4 Subjective ROS Limited/Unobtainable: Yes Gastrointestinal/Abdominal: Reports: diarrhea Neurologic: Reports: other - on restraint Allergies: Coded Allergies: PENICILLINS (Verified Allergy, Unknown, 07/31/16) Objective Vital Signs Last 24 Hour Vital Signs Date Time Temp Pulse Resp B/P Pulse Ox O2 Delivery O2 Flow Rate FiO2 09/21/16 13:01 81 17 40 09/21/16 12:00 97.7 78 24 90/54 99 Mechanical Ventilator 40 09/21/16 12:00 40 09/21/16 10:56 78 13 40 09/21/16 09:21 82 16 40 09/21/16 09:00 40 09/21/16 08:00 97.9 82 22 89/57 99 Mechanical Ventilator 40 09/21/16 08:00 79 09/21/16 07:06 79 15 40 09/21/16 04:42 80 22 40 09/21/16 04:05 98.6 75 14 119/43 95 Mechanical Ventilator 40 09/21/16 04:00 40 09/21/16 03:55 80 09/21/16 02:53 78 14 40 09/21/16 00:32 81 15 40 09/21/16 00:11 97.3 76 14 133/47 97 Mechanical Ventilator 40 09/21/16 00:00 40 09/21/16 00:00 71 09/20/16 22:49 72 20 40 09/20/16 20:43 80 14 40 09/20/16 20:13 97.5 69 16 101/43 96 Mechanical Ventilator 40 09/20/16 20:00 40 09/20/16 20:00 70 09/20/16 19:15 78 16 40 09/20/16 17:30 75 14 40 09/20/16 16:00 45 09/20/16 16:00 78 09/20/16 16:00 97.8 65 16 100/51 100 Mechanical Ventilator 40 09/20/16 15:28 77 12 40 Height (Feet): 4 Height (Inches): 10.00 Weight (Pounds): 115 HEENT: status post trach Respiratory/Chest: lungs clear, other - on ventilator Cardiovascular: normal rate Abdomen: soft, non tender, other - GT feeding Extremities: no edema Neurologic/Psychiatric: unresponsiveness Microbiology Date/Time Source Procedure Growth Status 09/19/16 14:45 Blood Blood Culture - Preliminary NO GROWTH AFTER 24 HOURS Resulted 09/19/16 14:30 Blood Blood Culture - Preliminary NO GROWTH AFTER 24 HOURS Resulted 09/19/16 13:20 Nasal Nares MRSA Culture - Final NO METHICILLIN RESISTANT STAPH AUREUS... Complete 09/19/16 13:20 Rectum VRE Culture - Final Enterococcus Faecium - Vre Complete Laboratory Tests Test 09/20/16 14:05 09/21/16 04:05 Sodium Level 157 mEQ/L (135-145) H 147 mEQ/L (135-145) #H Potassium Level 3.0 mEQ/L (3.4-4.9) L 4.2 mEQ/L (3.4-4.9) Chloride Level 115 mEQ/L (98-107) H 108 mEQ/L (98-107) H Carbon Dioxide Level 32 mEQ/L (20-30) H 30 mEQ/L (20-30) Anion Gap 10 (5-15) 9 (5-15) Blood Urea Nitrogen 61 mg/dL (7-23) H 44 mg/dL (7-23) H Creatinine 1.0 mg/dL (0.5-0.9) H 0.9 mg/dL (0.5-0.9) Estimat Glomerular Filtration Rate mL/min (>60) mL/min (>60) Glucose Level 168 mg/dL (74-106) H 129 mg/dL (74-106) H Calcium Level 7.6 mg/dL (8.6-10.2) L 7.9 mg/dL (8.6-10.2) L Magnesium Level 2.2 mg/dL (1.7-2.5) Thyroid Stimulating Hormone (TSH) > 100.000 uIU/mL Current Medications Medications (Trade) Dose Ordered Sig/Josiah Route PRN Reason Start Time Stop Time Status Last Admin Dose Admin Acetaminophen (Tylenol) 650 mg Q4H PRN GT MILD PAIN, TEMP>100.5 09/19/16 18:15 10/19/16 18:14 Amitriptyline HCl (Elavil) 10 mg BEDTIME GT 09/19/16 21:00 10/19/16 20:59 09/20/16 21:48 Aztreonam/Dextrose (Azactam/D5W) 55 ml @ 110 mls/hr Q12HR IVPB 09/19/16 21:00 09/26/16 20:59 09/21/16 08:48 Dextrose/ Electrolytes (D5W w/KCl 20mEq) 1,000 ml @ 125 mls/hr Q8H IV 09/21/16 02:00 10/21/16 01:59 09/21/16 09:55 Docusate Sodium 100 mg 100 mg DAILY GT 09/19/16 19:30 10/19/16 19:29 09/19/16 22:34 Heparin Sodium (Porcine) 5000 units 5,000 units EVERY 12 HOURS SUBQ 09/19/16 23:00 10/19/16 22:59 09/21/16 08:30 Lorazepam (Ativan) 1 mg THREE TIMES A DAY GT 09/19/16 18:00 09/26/16 17:59 09/21/16 12:30 Ondansetron HCl (Zofran) 4 mg Q6H PRN GT Nausea & Vomiting 09/19/16 18:00 10/19/16 17:59 Vancomycin HCl (Vanco rx to dose) 1 ea DAILY PRN MISC Per rx protocol 09/19/16 18:00 10/19/16 17:59 Vancomycin HCl 500 mg/Dextrose 110 ml @ 110 mls/hr Q24H IVPB 09/20/16 10:00 09/25/16 09:59 09/21/16 09:55 JENNIFER MCKEE Sep 21, 2016 14:07
[2016-09-21] MEDS: metroNIDAZOLE 500mg tab PEG SCH ×2 (15:09→22:05)
[2016-09-21 16:00] VITALS: BP 114/43
[2016-09-21 20:20] VITALS: BP 102/43
[2016-09-22 00:48] VITALS: BP 114/48
--- NOTE | 2016-09-22 01:38 | Progress Note ---
DATE: 09/21/2016 CARDIOLOGY PROGRESS NOTE SUBJECTIVE: The patient remains on ventilator support, hypotonic IV fluids continuing. OBJECTIVE: VITAL SIGNS: The patient's blood pressure is 89/57, heart rate 82, and respiratory rate 22. HEENT: Thin trach secretions. LUNGS: Bilateral breath sounds. No wheezing. Regular rhythm rate. Normal S1 and S2. ABDOMEN: Soft. EXTREMITIES: Trace edema. LABORATORY DATA: Sodium 147, potassium 4.2, bicarbonate 30, BUN 44, and creatinine 0.9. TSH is greater than 100. IMPRESSION: 1. Respiratory failure. 2. Metastatic head and neck cancer. 3. Severe hypothyroidism. 4. Paroxysmal atrial fibrillation. 5. Severe dehydration. 6. Hypernatremia and hypovolemia, improving. PLAN: 1. Continue hypotonic IV fluids. 2. Ventilator support. 3. No resumption of digoxin at this time. 4. Check cortisol level. 5. Initiate thyroid replacement. Chi Bhatti M.D. DR: FERNY JOB#: [id number] CC:
[2016-09-22] MEDS: D5W w/KCl 20mEq 1,000 ML IV SCH (02:20)
[2016-09-22 04:40] VITALS: BP 99/60
[2016-09-22 05:21] LABS: BASOPHILS % (AUTO) 0.7 % (0.0-2.0); EOSINOPHILS % (AUTO) 3.2 % (0.0-3.0); MEAN CORPUSCULAR HGB CONC 32.6 G/DL (32.0-36.0); MEAN CORPUSCULAR VOLUME 95 FL (80-99); MEAN PLATELET VOLUME 9.5 FL (6.5-10.1); PLATELET COUNT 118 K/UL (150-450); RED BLOOD COUNT 3.13 M/UL (4.20-5.40); RED CELL DISTRIBUTION WIDTH 13.7 % (11.6-14.8); WHITE BLOOD COUNT 8.9 K/UL (4.8-10.8)
[2016-09-22] MEDS: metroNIDAZOLE 500mg tab PEG SCH (05:56)
[2016-09-22 06:14] LABS: ALANINE AMINOTRANSFERASE 26 U/L (3-33); ALBUMIN/GLOBULIN RATIO 0.5 (1.0-2.7); ANION GAP 8 (5-15); ASPARTATE AMINO TRANSFERASE 28 U/L (5-40); CALCIUM 7.9 mg/dL (8.6-10.2); CARBON DIOXIDE 27 mEQ/L (20-30); CHLORIDE 101 mEQ/L (98-107); CREATININE 0.7 mg/dL (0.5-0.9); HEMOLYSIS 3; POTASSIUM 4.6 mEQ/L (3.4-4.9); SODIUM 136 mEQ/L (135-145); TOTAL PROTEIN 5.7 g/dL (6.6-8.7)
[2016-09-22 08:00] VITALS: BP 94/55
[2016-09-22] MEDS ORDERED: Tubing IV Secondary IV ONE (08:29)
[2016-09-22] MEDS: Docusate 100mg tablet GT SCH (09:00)
[2016-09-22] MEDS: LORazepam 1mg tab GT SCH ×3 (09:05→17:29)
[2016-09-22] MEDS: Heparin 5000 units/ml inj SUBQ SCH ×2 (09:06→20:24)
--- NOTE | 2016-09-22 09:37 | General Progress Note ---
Assessment/Plan Assessment/Plan IMPRESSION: 1. Respiratory failure, chronic encephalopathy. 2. Left lung nodule 3. Tongue cancer with mets 4. Respiratory failure. 5. Tracheostomy G-tube. 6. Hypernatremia. 7. Acute renal failure. 8. Lower extremity deep vein thrombosis per history. PLAN ventilator as is dc fluids and monitor monitor labs IV antibiotics and follow up cultures VRE colonized continue SNF meds follow up labs closely ANNALISA care as is conservative therapy tongue lesion-ENT appreciated likely recurrence; son aware dc soon back to snf impression, plan, and exam edited and reviewed in detail care discussed with RN Subjective ROS Limited/Unobtainable: Yes Allergies: Coded Allergies: PENICILLINS (Verified Allergy, Unknown, 07/31/16) Subjective improved electrolytes back to normal blood pressure adequate Objective Last 24 Hour Vital Signs Date Time Temp Pulse Resp B/P Pulse Ox O2 Delivery O2 Flow Rate FiO2 09/22/16 09:13 82 20 40 09/22/16 08:00 40 09/22/16 08:00 98.1 81 17 94/55 100 Mechanical Ventilator 40 09/22/16 08:00 84 09/22/16 06:30 86 18 40 09/22/16 05:12 100 20 40 09/22/16 04:40 97.7 81 18 99/60 99 Mechanical Ventilator 09/22/16 04:00 40 09/22/16 04:00 87 09/22/16 02:55 87 16 40 09/22/16 01:09 73 16 40 09/22/16 00:48 97.9 72 19 114/48 93 Mechanical Ventilator 09/22/16 00:00 40 09/22/16 00:00 81 09/21/16 23:20 71 17 40 09/21/16 21:28 77 18 40 09/21/16 20:20 97.7 80 18 102/43 100 Trach Collar 09/21/16 20:00 40 09/21/16 20:00 82 09/21/16 18:50 78 17 40 09/21/16 17:22 77 18 40 09/21/16 16:00 98.1 70 17 114/43 99 Mechanical Ventilator 40 09/21/16 16:00 40 09/21/16 16:00 79 09/21/16 15:28 73 17 40 09/21/16 13:01 81 17 40 4/20/17 12:00 97.7 78 24 90/54 99 Mechanical Ventilator 40 09/21/16 12:00 40 09/21/16 12:00 81 09/21/16 10:56 78 13 40 Intake and Output 09/21/16 09/22/16 19:00 07:00 Intake Total 2656 ml 2010 ml Output Total 450 ml 1300 ml Balance 2206 ml 710 ml Free Water 600 ml 200 ml IV Total 1526 ml 1330 ml Tube Feeding 440 ml 480 ml Other 90 ml Output Urine Total 450 ml 1100 ml Stool Total 200 ml # Bowel Movements 3 1 Laboratory Tests 09/22/16 03:10: White Blood Count 8.9, Red Blood Count 3.13L, Hemoglobin 9.7L, Hematocrit 29.8L , Mean Corpuscular Volume 95, Mean Corpuscular Hemoglobin 31.0, Mean Corpuscular Hemoglobin Concent 32.6, Red Cell Distribution Width 13.7, Platelet Count 118L, Mean Platelet Volume 9.5, Neutrophils (%) (Auto) 75.0, Lymphocytes ( %) (Auto) 15.0L, Monocytes (%) (Auto) 6.0, Eosinophils (%) (Auto) 3.2H, Basophils (%) (Auto) 0.7, Sodium Level 136#, Potassium Level 4.6, Chloride Level 101, Carbon Dioxide Level 27, Anion Gap 8, Blood Urea Nitrogen 21, Creatinine 0.7, Estimat Glomerular Filtration Rate , Glucose Level 123H, Calcium Level 7.9L, Magnesium Level 2.0, Total Bilirubin 0.2, Aspartate Amino Transf (AST/SGOT) 28, Alanine Aminotransferase (ALT/SGPT) 26, Alkaline Phosphatase 92, Total Protein 5.7L, Albumin 2.0L, Globulin 3.7, Albumin/ Globulin Ratio 0.5L, Cortisol [Pending] 09/22/16 08:45: Vancomycin Level Trough [Pending] Height (Feet): 4 Height (Inches): 10.00 Weight (Pounds): 115 Objective GENERAL: This is a well-developed female, comfortable in NAD HEENT: Fairly negative. Extraocular movements are intact. The patient's tracheostomy is midline. NECK: Supple. No adenopathy. LUNGS: Otherwise, fairly clear and symmetric. no rhonchi or wheeze CARDIAC: S1 and S2. Regular, rate, and rhythm without murmurs, rubs, or gallops. ABDOMEN: Soft, nontender, and nondistended.no HSM EXTREMITIES: No cyanosis, clubbing, or edema. NEUROLOGIC: The patient is weak, nonfocal, MARCY MAJOR Sep 22, 2016 09:37
--- NOTE | 2016-09-22 10:50 | Nephrology Progress Note ---
Assessment/Plan Plan 1. Respiratory failure, chronic encephalopathy. On vent 2. Left lung nodule - stable 3. Tongue cancer with mets. 4. s/pTracheostomy 5.s/p G-tube. 6. Hypernatremia resolving 7. Acute renal failure resolving. 8. Lower extremity deep vein thrombosis per history. TSH Extremely high more than 100 (above assay limits, unmeasurable). To start high dose synthroid. Overall better. Subjective Subjective Non verbal Objective Objective Last 24 Hour Vital Signs Date Time Temp Pulse Resp B/P Pulse Ox O2 Delivery O2 Flow Rate FiO2 09/22/16 09:13 82 20 40 09/22/16 08:00 40 09/22/16 08:00 98.1 81 17 94/55 100 Mechanical Ventilator 40 09/22/16 08:00 84 09/22/16 06:30 86 18 40 09/22/16 05:12 100 20 40 09/22/16 04:40 97.7 81 18 99/60 99 Mechanical Ventilator 09/22/16 04:00 40 09/22/16 04:00 87 09/22/16 02:55 87 16 40 09/22/16 01:09 73 16 40 09/22/16 00:48 97.9 72 19 114/48 93 Mechanical Ventilator 09/22/16 00:00 40 09/22/16 00:00 81 09/21/16 23:20 71 17 40 09/21/16 21:28 77 18 40 09/21/16 20:20 97.7 80 18 102/43 100 Trach Collar 09/21/16 20:00 40 09/21/16 20:00 82 09/21/16 18:50 78 17 40 09/21/16 17:22 77 18 40 09/21/16 16:00 98.1 70 17 114/43 99 Mechanical Ventilator 40 09/21/16 16:00 40 09/21/16 16:00 79 09/21/16 15:28 73 17 40 09/21/16 13:01 81 17 40 09/21/16 12:00 97.7 78 24 90/54 99 Mechanical Ventilator 40 09/21/16 12:00 40 09/21/16 12:00 81 09/21/16 10:56 78 13 40 Intake and Output 09/21/16 09/22/16 19:00 07:00 Intake Total 2656 ml 2010 ml Output Total 450 ml 1300 ml Balance 2206 ml 710 ml Free Water 600 ml 200 ml IV Total 1526 ml 1330 ml Tube Feeding 440 ml 480 ml Other 90 ml Output Urine Total 450 ml 1100 ml Stool Total 200 ml # Bowel Movements 3 1 Laboratory Tests 09/22/16 03:10: White Blood Count 8.9, Red Blood Count 3.13L, Hemoglobin 9.7L, Hematocrit 29.8L , Mean Corpuscular Volume 95, Mean Corpuscular Hemoglobin 31.0, Mean Corpuscular Hemoglobin Concent 32.6, Red Cell Distribution Width 13.7, Platelet Count 118L, Mean Platelet Volume 9.5, Neutrophils (%) (Auto) 75.0, Lymphocytes ( %) (Auto) 15.0L, Monocytes (%) (Auto) 6.0, Eosinophils (%) (Auto) 3.2H, Basophils (%) (Auto) 0.7, Sodium Level 136#, Potassium Level 4.6, Chloride Level 101, Carbon Dioxide Level 27, Anion Gap 8, Blood Urea Nitrogen 21, Creatinine 0.7, Estimat Glomerular Filtration Rate , Glucose Level 123H, Calcium Level 7.9L, Magnesium Level 2.0, Total Bilirubin 0.2, Aspartate Amino Transf (AST/SGOT) 28, Alanine Aminotransferase (ALT/SGPT) 26, Alkaline Phosphatase 92, Total Protein 5.7L, Albumin 2.0L, Globulin 3.7, Albumin/ Globulin Ratio 0.5L, Cortisol [Pending] 09/22/16 08:45: Vancomycin Level Trough 9.2 Height (Feet): 4 Height (Inches): 10.00 Weight (Pounds): 115 Objective On vent. CV RR Lungs CTA. Abd SNT. BS + E no CCE. KYE CISNEROS Sep 22, 2016 10:50
--- NOTE | 2016-09-22 11:34 | Infectious Diseases Prog Note ---
Assessment/Plan Assessment/Plan antibiotics : flagyl A 1. leucocytosis resolved 2. sepsis syndrome resolved 3. respiratory failure 4. rectal VRE colonization P 1. d/c flagyl 2. observe off antibiotics Subjective ROS Limited/Unobtainable: Yes Allergies: Coded Allergies: PENICILLINS (Verified Allergy, Unknown, 07/31/16) Objective Vital Signs Last 24 Hour Vital Signs Date Time Temp Pulse Resp B/P Pulse Ox O2 Delivery O2 Flow Rate FiO2 09/22/16 10:52 85 24 40 09/22/16 09:13 82 20 40 09/22/16 08:00 40 09/22/16 08:00 98.1 81 17 94/55 100 Mechanical Ventilator 40 09/22/16 08:00 84 09/22/16 06:30 86 18 40 09/22/16 05:12 100 20 40 09/22/16 04:40 97.7 81 18 99/60 99 Mechanical Ventilator 09/22/16 04:00 40 09/22/16 04:00 87 09/22/16 02:55 87 16 40 09/22/16 01:09 73 16 40 09/22/16 00:48 97.9 72 19 114/48 93 Mechanical Ventilator 09/22/16 00:00 40 09/22/16 00:00 81 09/21/16 23:20 71 17 40 09/21/16 21:28 77 18 40 09/21/16 20:20 97.7 80 18 102/43 100 Trach Collar 09/21/16 20:00 40 09/21/16 20:00 82 09/21/16 18:50 78 17 40 09/21/16 17:22 77 18 40 09/21/16 16:00 98.1 70 17 114/43 99 Mechanical Ventilator 40 09/21/16 16:00 40 09/21/16 16:00 79 09/21/16 15:28 73 17 40 09/21/16 13:01 81 17 40 09/21/16 12:00 97.7 78 24 90/54 99 Mechanical Ventilator 40 09/21/16 12:00 40 09/21/16 12:00 81 Height (Feet): 4 Height (Inches): 10.00 Weight (Pounds): 115 HEENT: status post trach Respiratory/Chest: lungs clear Cardiovascular: normal rate, regular rhythm, no gallop/murmur Abdomen: soft, non tender, other - GT Extremities: no edema Microbiology Date/Time Source Procedure Growth Status 09/19/16 14:45 Blood Blood Culture - Preliminary NO GROWTH AFTER 24 HOURS Resulted 09/19/16 14:30 Blood Blood Culture - Preliminary NO GROWTH AFTER 24 HOURS Resulted 09/19/16 13:20 Nasal Nares MRSA Culture - Final NO METHICILLIN RESISTANT STAPH AUREUS... Complete 09/21/16 09:00 Stool Clostridium difficile Toxin Assay - Final Complete 09/19/16 13:20 Rectum VRE Culture - Final Enterococcus Faecium - Vre Complete Laboratory Tests Test 09/22/16 03:10 09/22/16 08:45 White Blood Count 8.9 K/UL (4.8-10.8) Red Blood Count 3.13 M/UL (4.20-5.40) L Hemoglobin 9.7 G/DL (12.0-16.0) L Hematocrit 29.8 % (37.0-47.0) L Mean Corpuscular Volume 95 FL (80-99) Mean Corpuscular Hemoglobin 31.0 PG (27.0-31.0) Mean Corpuscular Hemoglobin Concent 32.6 G/DL (32.0-36.0) Red Cell Distribution Width 13.7 % (11.6-14.8) Platelet Count 118 K/UL (150-450) L Mean Platelet Volume 9.5 FL (6.5-10.1) Neutrophils (%) (Auto) 75.0 % (45.0-75.0) Lymphocytes (%) (Auto) 15.0 % (20.0-45.0) L Monocytes (%) (Auto) 6.0 % (1.0-10.0) Eosinophils (%) (Auto) 3.2 % (0.0-3.0) H Basophils (%) (Auto) 0.7 % (0.0-2.0) Sodium Level 136 mEQ/L (135-145) # Potassium Level 4.6 mEQ/L (3.4-4.9) Chloride Level 101 mEQ/L (98-107) Carbon Dioxide Level 27 mEQ/L (20-30) Anion Gap 8 (5-15) Blood Urea Nitrogen 21 mg/dL (7-23) Creatinine 0.7 mg/dL (0.5-0.9) Estimat Glomerular Filtration Rate mL/min (>60) Glucose Level 123 mg/dL (74-106) H Calcium Level 7.9 mg/dL (8.6-10.2) L Magnesium Level 2.0 mg/dL (1.7-2.5) Total Bilirubin 0.2 mg/dL (0.0-1.2) Aspartate Amino Transf (AST/SGOT) 28 U/L (5-40) Alanine Aminotransferase (ALT/SGPT) 26 U/L (3-33) Alkaline Phosphatase 92 U/L (35-104) Total Protein 5.7 g/dL (6.6-8.7) L Albumin 2.0 g/dL (3.5-5.2) L Globulin 3.7 g/dL Albumin/Globulin Ratio 0.5 (1.0-2.7) L Cortisol Pending Vancomycin Level Trough 9.2 ug/mL (5.0-12.0) MARA BLOCK Sep 22, 2016 11:34
[2016-09-22 12:00] VITALS: BP 87/47
[2016-09-22 16:00] VITALS: BP 117/67
[2016-09-22 20:00] VITALS: BP 90/49
--- NOTE | 2016-09-22 23:27 | Procedure Note ---
DATE OF PROCEDURE: 09/22/2016 SURGEON: Iban Carmona M.D. INDICATION FOR PROCEDURE: The son is concerned to see if she has recurrent cancer. She has significant swelling in her tongue. She had been trached a few months ago for swelling. PREOPERATIVE DIAGNOSIS: Possible recurrent cancer in tongue. POSTOPERATIVE DIAGNOSIS: Unable to determine. There is so much swelling. PROCEDURE: Fiberoptic nasopharyngoscopy. DESCRIPTION: Time-out was performed. Son was at the bedside. Placed a scope through the left nostril without difficulty, but there was so much swelling that I could not see in the oropharynx at all and we could not force her mouth open to put that way. There was swelling all the way down to the larynx. Scope was then removed. ESTIMATED BLOOD LOSS: Zero. COUNTS: None. DRAINS: None. All sponge and needle count was correct and agreed by all in the room. Please note that I spent another half hour with her son, talking about the fact that he probably needs to speak with palliative care and also speak with the automatic outsole cutter to follow on regular basis at [facility] and determine what her life quality and life expectancy is. He did request that he means with the palliative care team. Iban Carmona M.D. DR: MADDY JOB#: [id number] CC: MCKENZIE
[2016-09-23 00:57] VITALS: BP 94/55
[2016-09-23 04:00] VITALS: BP 104/72
--- NOTE | 2016-09-23 04:28 | Progress Note ---
DATE: 09/22/2016 CARDIOLOGY PROGRESS NOTE SUBJECTIVE: The patient remains on ventilator support. ENT follow up noted. She is on ventilator support antibiotics. OBJECTIVE: VITAL SIGNS: Reviewed. NECK: Supple. LUNGS: Coarse breath sounds. CARDIAC: Regular. ABDOMEN: Soft. No edema. G-tube intact. IMPRESSION: 1. Recurring carcinoma of the tongue. 2. Respiratory failure. 3. Severe protein-calorie malnutrition. 4. Paroxysmal atrial fibrillation. 5. Severe hypothyroidism. 6. Severe dehydration. 7. Hypernatremia. PLAN: 1. Continue thyroid replacement. 2. Continue hypotonic fluid replacement. 3. Continued respiratory support via ventilator. 4. The patient has history of lower extremity DVT, presently not on anticoagulation. We will need to address IVC filter long-term unless palliative care is considered. Chi Bhatti M.D. DR: KYRIE JOB#: [id number] CC:
[2016-09-23 08:00] VITALS: BP 95/52
--- NOTE | 2016-09-23 08:12 | General Progress Note ---
Assessment/Plan Assessment/Plan IMPRESSION: 1. Respiratory failure, chronic encephalopathy. 2. Left lung nodule 3. Tongue cancer with mets 4. Respiratory failure. 5. Tracheostomy G-tube. 6. Hypernatremia. 7. Acute renal failure. 8. Lower extremity deep vein thrombosis per history. PLAN ventilator as is off fluids and monitor monitor labs IV antibiotics per ID VRE colonized continue SNF meds follow up labs closely dc soon back to snf next 48 hr pending d/w son as to level of care impression, plan, and exam edited and reviewed in detail care discussed with RN Subjective ROS Limited/Unobtainable: Yes Allergies: Coded Allergies: PENICILLINS (Verified Allergy, Unknown, 07/31/16) Subjective improved electrolytes back to normal blood pressure adequate d/w ENT son considering palliative care Objective Last 24 Hour Vital Signs Date Time Temp Pulse Resp B/P Pulse Ox O2 Delivery O2 Flow Rate FiO2 09/23/16 07:05 88 15 40 09/23/16 05:00 81 18 40 09/23/16 04:00 40 09/23/16 04:00 93 09/23/16 04:00 99.3 78 13 104/72 99 Mechanical Ventilator 40 09/23/16 03:17 84 15 40 09/23/16 00:57 98.8 80 13 94/55 100 Mechanical Ventilator 40 09/23/16 00:48 82 14 40 09/23/16 00:00 86 09/23/16 00:00 40 09/22/16 22:58 84 14 40 09/22/16 20:50 88 15 40 09/22/16 20:00 99.0 84 16 90/49 99 Mechanical Ventilator 40 09/22/16 20:00 40 09/22/16 20:00 82 09/22/16 19:08 86 15 40 09/22/16 16:52 83 22 40 09/22/16 16:00 95 09/22/16 16:00 40 09/22/16 16:00 98.2 86 20 117/67 99 Mechanical Ventilator 40 09/22/16 14:44 82 20 40 09/22/16 12:45 92 22 40 09/22/16 12:00 98.2 79 22 87/47 97 Mechanical Ventilator 99 09/22/16 12:00 87 09/22/16 12:00 40 09/22/16 10:52 85 24 40 09/22/16 09:13 82 20 40 Intake and Output 09/22/16 09/23/16 18:59 06:59 Intake Total 1035 ml 1080 ml Output Total 1100 ml Balance -65 ml 1080 ml Free Water 600 ml IV Total 375 ml Tube Feeding 360 ml 480 ml Other 300 ml Output Urine Total 1000 ml Stool Total 100 ml Laboratory Tests 09/22/16 08:45: Vancomycin Level Trough 9.2 Height (Feet): 4 Height (Inches): 10.00 Weight (Pounds): 115 Objective GENERAL: This is a well-developed female, comfortable in NAD HEENT: Fairly negative. Extraocular movements are intact. The patient's tracheostomy is midline. NECK: Supple. No adenopathy. LUNGS: Otherwise, fairly clear and symmetric. no rhonchi or wheeze CARDIAC: S1 and S2. Regular, rate, and rhythm without murmurs, rubs, or gallops. ABDOMEN: Soft, nontender, and nondistended.no HSM EXTREMITIES: No cyanosis, clubbing, or edema. NEUROLOGIC: The patient is weak, nonfocal, MARCY MAJOR Sep 23, 2016 08:12
--- NOTE | 2016-09-23 09:27 | Nephrology Progress Note ---
Assessment/Plan Plan Hypernatremia. The patient is given half normal saline. 2. Hyperkalemia. 3. Acute kidney injury. 4. CKD. 5 Questionable urinary tract infection. 6. History of head and neck cancer. 7. History of leg deep vein thrombosis. 8. Ventilatory-dependent respiratory failure. 9.Hypothyroidsim Plan continue current Mx Subjective Subjective NO acute event Objective Objective Last 24 Hour Vital Signs Date Time Temp Pulse Resp B/P Pulse Ox O2 Delivery O2 Flow Rate FiO2 09/23/16 09:21 84 16 40 09/23/16 07:05 88 15 40 09/23/16 05:00 81 18 40 09/23/16 04:00 40 09/23/16 04:00 93 09/23/16 04:00 99.3 78 13 104/72 99 Mechanical Ventilator 40 09/23/16 03:17 84 15 40 09/23/16 00:57 98.8 80 13 94/55 100 Mechanical Ventilator 40 09/23/16 00:48 82 14 40 09/23/16 00:00 86 09/23/16 00:00 40 09/22/16 22:58 84 14 40 09/22/16 20:50 88 15 40 09/22/16 20:00 99.0 84 16 90/49 99 Mechanical Ventilator 40 09/22/16 20:00 40 09/22/16 20:00 82 09/22/16 19:08 86 15 40 09/22/16 16:52 83 22 40 09/22/16 16:00 95 09/22/16 16:00 40 09/22/16 16:00 98.2 86 20 117/67 99 Mechanical Ventilator 40 09/22/16 14:44 82 20 40 09/22/16 12:45 92 22 40 09/22/16 12:00 98.2 79 22 87/47 97 Mechanical Ventilator 99 09/22/16 12:00 87 09/22/16 12:00 40 09/22/16 10:52 85 24 40 Intake and Output 09/22/16 09/23/16 19:00 07:00 Intake Total 910 ml 1080 ml Output Total 1100 ml Balance -190 ml 1080 ml Free Water 600 ml IV Total 250 ml Tube Feeding 360 ml 480 ml Other 300 ml Output Urine Total 1000 ml Stool Total 100 ml Height (Feet): 4 Height (Inches): 10.00 Weight (Pounds): 115 Objective NAD, alert,awake, trach on vent CTA b/l,no rales S1,S2,RRR, no M/R/G soft, non tender, BS+, PEG+ no edema FIONA HATHAWAY Sep 23, 2016 09:27
[2016-09-23] MEDS: Docusate 100mg tablet GT SCH (09:30)
[2016-09-23] MEDS: Heparin 5000 units/ml inj SUBQ SCH ×2 (09:32→20:34)
[2016-09-23 12:11] VITALS: BP 91/50
[2016-09-23 16:00] VITALS: BP 96/45
--- NOTE | 2016-09-23 19:47 | General Progress Note ---
Assessment/Plan Problem List: (1) Sepsis ICD Codes: A41.9 - Sepsis, unspecified organism SNOMED: 83788019 (2) Tongue malignant neoplasm ICD Codes: C02.9 - Malignant neoplasm of tongue, unspecified SNOMED: 872777499 (3) Respiratory failure ICD Codes: J96.90 - Respiratory failure, unspecified, unspecified whether with hypoxia or hypercapnia SNOMED: 271432612 (4) Lung nodule seen on imaging study ICD Codes: R91.1 - Solitary pulmonary nodule SNOMED: 832544147 (5) Malfunction of gastrostomy tube ICD Codes: K94.23 - Gastrostomy malfunction SNOMED: 294257093 (6) Hypotension ICD Codes: I95.9 - Hypotension, unspecified SNOMED: 39813780 Qualifiers: Qualified Codes: I95.9 - Hypotension, unspecified Status: stable Assessment/Plan monitor labs monitor off abx gt feeds vent support thyroid replacement dc planning sunday if stable Subjective ROS Limited/Unobtainable: Yes Constitutional: Reports: malaise, weakness HEENT: Reports: no symptoms Cardiovascular: Reports: no symptoms Respiratory: Reports: cough, shortness of breath Gastrointestinal/Abdominal: Reports: difficulty swallowing Genitourinary: Reports: no symptoms Neurologic/Psychiatric: Reports: no symptoms Endocrine: Reports: no symptoms Hematologic/Lymphatic: Reports: anemia Allergies: Coded Allergies: PENICILLINS (Verified Allergy, Unknown, 07/31/16) All Systems: reviewed and negative except above Subjective event noted. on the vent. off abx. wbc now normal. cultures and cxr clear. Objective Last 24 Hour Vital Signs Date Time Temp Pulse Resp B/P Pulse Ox O2 Delivery O2 Flow Rate FiO2 09/23/16 18:36 79 12 40 09/23/16 17:10 80 21 40 09/23/16 16:00 97.3 83 18 96/45 100 Mechanical Ventilator 40 09/23/16 16:00 81 09/23/16 16:00 40 09/23/16 14:54 83 12 40 09/23/16 12:42 83 13 40 09/23/16 12:11 96.8 81 15 91/50 100 Mechanical Ventilator 40 09/23/16 12:00 79 09/23/16 12:00 40 09/23/16 11:00 85 15 40 09/23/16 09:21 84 16 40 09/23/16 08:00 97.7 78 14 95/52 100 Mechanical Ventilator 40 09/23/16 08:00 40 09/23/16 08:00 79 09/23/16 07:05 88 15 40 09/23/16 05:00 81 18 40 09/23/16 04:00 40 09/23/16 04:00 93 09/23/16 04:00 99.3 78 13 104/72 99 Mechanical Ventilator 40 09/23/16 03:17 84 15 40 09/23/16 00:57 98.8 80 13 94/55 100 Mechanical Ventilator 40 09/23/16 00:48 82 14 40 09/23/16 00:00 86 09/23/16 00:00 40 09/22/16 22:58 84 14 40 09/22/16 20:50 88 15 40 09/22/16 20:00 99.0 84 16 90/49 99 Mechanical Ventilator 40 09/22/16 20:00 40 09/22/16 20:00 82 Intake and Output 09/22/16 09/23/16 19:00 07:00 Intake Total 910 ml 1080 ml Output Total 1100 ml Balance -190 ml 1080 ml Free Water 600 ml IV Total 250 ml Tube Feeding 360 ml 480 ml Other 300 ml Output Urine Total 1000 ml Stool Total 100 ml Height (Feet): 4 Height (Inches): 10.00 Weight (Pounds): 115 General Appearance: WD/WN, lethargic, confused, cachetic, thin EENT: PERRL/EOMI Neck: supple Cardiovascular: regular rhythm Respiratory/Chest: lungs clear Abdomen: normal bowel sounds, non tender, soft, no organomegaly Edema: no edema noted Arm (L), no edema noted Arm (R), no edema noted Leg (L), no edema noted Leg (R), no edema noted Pedal (L), no edema noted Pedal (R), no edema noted Generalized Neurologic: disoriented CHRISTINA HAMMOND Sep 23, 2016 19:47
[2016-09-23 20:00] VITALS: BP 108/53
[2016-09-24] VITALS: BP 82/58
[2016-09-24 04:00] VITALS: BP 101/48
[2016-09-24 05:28] LABS: BASOPHILS % (AUTO) 0.9 % (0.0-2.0); EOSINOPHILS % (AUTO) 2.8 % (0.0-3.0); LYMPHOCYTES % (AUTO) 10.4 % (20.0-45.0); MEAN CORPUSCULAR HEMOGLOBIN 30.8 PG (27.0-31.0); MEAN CORPUSCULAR HGB CONC 32.3 G/DL (32.0-36.0); MEAN CORPUSCULAR VOLUME 95 FL (80-99); MEAN PLATELET VOLUME 8.4 FL (6.5-10.1); MONOCYTES % (AUTO) 6.9 % (1.0-10.0); NEUTROPHILS % (AUTO) 79.1 % (45.0-75.0); PLATELET COUNT 142 K/UL (150-450); RED BLOOD COUNT 3.12 M/UL (4.20-5.40); RED CELL DISTRIBUTION WIDTH 14.3 % (11.6-14.8); WHITE BLOOD COUNT 11.1 K/UL (4.8-10.8)
[2016-09-24 05:43] LABS: ANION GAP 9 (5-15); CALCIUM 8.2 mg/dL (8.6-10.2); CARBON DIOXIDE 29 mEQ/L (20-30); CHLORIDE 103 mEQ/L (98-107); CREATININE 0.7 mg/dL (0.5-0.9); HEMOLYSIS 13; POTASSIUM 4.5 mEQ/L (3.4-4.9); SODIUM 141 mEQ/L (135-145)
[2016-09-24 08:00] VITALS: BP 101/42
--- NOTE | 2016-09-24 08:13 | General Progress Note ---
Assessment/Plan Problem List: (1) Sepsis ICD Codes: A41.9 - Sepsis, unspecified organism SNOMED: 69188898 (2) Tongue malignant neoplasm ICD Codes: C02.9 - Malignant neoplasm of tongue, unspecified SNOMED: 094199662 (3) Respiratory failure ICD Codes: J96.90 - Respiratory failure, unspecified, unspecified whether with hypoxia or hypercapnia SNOMED: 910973319 (4) Lung nodule seen on imaging study ICD Codes: R91.1 - Solitary pulmonary nodule SNOMED: 790011317 (5) Malfunction of gastrostomy tube ICD Codes: K94.23 - Gastrostomy malfunction SNOMED: 629034909 (6) Hypotension ICD Codes: I95.9 - Hypotension, unspecified SNOMED: 38276817 Qualifiers: Qualified Codes: I95.9 - Hypotension, unspecified Status: stable, progressing Assessment/Plan monitor labs monitor off abx gt feeds vent support thyroid replacement changed to oral dc planning sunday if stable Subjective ROS Limited/Unobtainable: No Constitutional: Reports: malaise, weakness HEENT: Reports: no symptoms Cardiovascular: Reports: no symptoms Respiratory: Reports: cough, sputum Gastrointestinal/Abdominal: Reports: difficulty swallowing Genitourinary: Reports: no symptoms Neurologic/Psychiatric: Reports: no symptoms Endocrine: Reports: no symptoms Hematologic/Lymphatic: Reports: no symptoms Allergies: Coded Allergies: PENICILLINS (Verified Allergy, Unknown, 07/31/16) All Systems: reviewed and negative except above Subjective no events. w/o complaints. awake and alert. mild sob. labs reviewed. off abx. Objective Last 24 Hour Vital Signs Date Time Temp Pulse Resp B/P Pulse Ox O2 Delivery O2 Flow Rate FiO2 09/24/16 04:45 92 20 40 09/24/16 04:00 83 09/24/16 04:00 97.5 90 15 101/48 98 Mechanical Ventilator 40 09/24/16 04:00 40 09/24/16 03:01 90 12 40 09/24/16 01:02 88 12 40 09/24/16 00:00 83 09/24/16 00:00 40 09/24/16 00:00 98.4 88 17 82/58 98 Mechanical Ventilator 40 09/23/16 23:05 90 19 40 09/23/16 21:07 85 17 40 09/23/16 20:00 40 09/23/16 20:00 97.7 80 15 108/53 100 Mechanical Ventilator 40 09/23/16 20:00 89 09/23/16 18:36 79 12 40 09/23/16 17:10 80 21 40 09/23/16 16:00 97.3 83 18 96/45 100 Mechanical Ventilator 40 09/23/16 16:00 81 09/23/16 16:00 40 09/23/16 14:54 83 12 40 09/23/16 12:42 83 13 40 09/23/16 12:11 96.8 81 15 91/50 100 Mechanical Ventilator 40 09/23/16 12:00 79 09/23/16 12:00 40 09/23/16 11:00 85 15 40 09/23/16 09:21 84 16 40 Intake and Output 09/23/16 09/24/16 19:00 07:00 Intake Total 920 ml 1080 ml Output Total 600 ml 350 ml Balance 320 ml 730 ml Free Water 400 ml 600 ml Tube Feeding 520 ml 480 ml Output Urine Total 600 ml 250 ml Stool Total 100 ml Laboratory Tests 09/24/16 03:50: White Blood Count 11.1H, Red Blood Count 3.12L, Hemoglobin 9.6L, Hematocrit 29.8L, Mean Corpuscular Volume 95, Mean Corpuscular Hemoglobin 30.8, Mean Corpuscular Hemoglobin Concent 32.3, Red Cell Distribution Width 14.3, Platelet Count 142L, Mean Platelet Volume 8.4, Neutrophils (%) (Auto) 79.1H, Lymphocytes (%) (Auto) 10.4L, Monocytes (%) (Auto) 6.9, Eosinophils (%) (Auto) 2.8, Basophils (%) (Auto) 0.9, Sodium Level 141, Potassium Level 4.5, Chloride Level 103, Carbon Dioxide Level 29, Anion Gap 9, Blood Urea Nitrogen 17, Creatinine 0.7, Estimat Glomerular Filtration Rate , Glucose Level 118H, Calcium Level 8.2L Height (Feet): 4 Height (Inches): 10.00 Weight (Pounds): 115 General Appearance: WD/WN, alert, thin Neck: normal alignment Cardiovascular: normal rate, regular rhythm Respiratory/Chest: crackles/rales, rhonchi - bilaterally Abdomen: normal bowel sounds, non tender, soft, no organomegaly Edema: no edema noted Arm (L), no edema noted Arm (R), no edema noted Leg (L), no edema noted Leg (R), no edema noted Pedal (L), no edema noted Pedal (R), no edema noted Generalized CHRISTINA HAMMOND Sep 24, 2016 08:13
[2016-09-24] MEDS: Docusate 100mg tablet GT SCH (08:52)
[2016-09-24] MEDS: Heparin 5000 units/ml inj SUBQ SCH ×2 (08:55→21:04)
--- NOTE | 2016-09-24 08:56 | Infectious Diseases Prog Note ---
Assessment/Plan Assessment/Plan A; Sepsis, SIRS Diarrhea Dehydration Acute renal failure hypothyroidism VRE colonization P; Observe off antibiotics Subjective ROS Limited/Unobtainable: Yes Gastrointestinal/Abdominal: Reports: diarrhea Allergies: Coded Allergies: PENICILLINS (Verified Allergy, Unknown, 07/31/16) Objective Vital Signs Last 24 Hour Vital Signs Date Time Temp Pulse Resp B/P Pulse Ox O2 Delivery O2 Flow Rate FiO2 09/24/16 08:00 40 09/24/16 08:00 75 09/24/16 08:00 98.6 87 12 101/42 99 Mechanical Ventilator 40 09/24/16 04:45 92 20 40 09/24/16 04:00 83 09/24/16 04:00 97.5 90 15 101/48 98 Mechanical Ventilator 40 09/24/16 04:00 40 09/24/16 03:01 90 12 40 09/24/16 01:02 88 12 40 09/24/16 00:00 83 09/24/16 00:00 40 09/24/16 00:00 98.4 88 17 82/58 98 Mechanical Ventilator 40 09/23/16 23:05 90 19 40 09/23/16 21:07 85 17 40 09/23/16 20:00 40 09/23/16 20:00 97.7 80 15 108/53 100 Mechanical Ventilator 40 09/23/16 20:00 89 09/23/16 18:36 79 12 40 09/23/16 17:10 80 21 40 09/23/16 16:00 97.3 83 18 96/45 100 Mechanical Ventilator 40 09/23/16 16:00 81 09/23/16 16:00 40 09/23/16 14:54 83 12 40 09/23/16 12:42 83 13 40 09/23/16 12:11 96.8 81 15 91/50 100 Mechanical Ventilator 40 09/23/16 12:00 79 09/23/16 12:00 40 09/23/16 11:00 85 15 40 09/23/16 09:21 84 16 40 Height (Feet): 4 Height (Inches): 10.00 Weight (Pounds): 115 General Appearance: no acute distress Respiratory/Chest: lungs clear, other - ventilator Cardiovascular: normal rate Abdomen: soft, non tender, other - GT, rectal tube Neurologic/Psychiatric: alert, responsive Microbiology Date/Time Source Procedure Growth Status 09/21/16 09:00 Stool Clostridium difficile Toxin Assay - Final Complete Laboratory Tests Test 09/24/16 03:50 White Blood Count 11.1 K/UL (4.8-10.8) H Red Blood Count 3.12 M/UL (4.20-5.40) L Hemoglobin 9.6 G/DL (12.0-16.0) L Hematocrit 29.8 % (37.0-47.0) L Mean Corpuscular Volume 95 FL (80-99) Mean Corpuscular Hemoglobin 30.8 PG (27.0-31.0) Mean Corpuscular Hemoglobin Concent 32.3 G/DL (32.0-36.0) Red Cell Distribution Width 14.3 % (11.6-14.8) Platelet Count 142 K/UL (150-450) L Mean Platelet Volume 8.4 FL (6.5-10.1) Neutrophils (%) (Auto) 79.1 % (45.0-75.0) H Lymphocytes (%) (Auto) 10.4 % (20.0-45.0) L Monocytes (%) (Auto) 6.9 % (1.0-10.0) Eosinophils (%) (Auto) 2.8 % (0.0-3.0) Basophils (%) (Auto) 0.9 % (0.0-2.0) Sodium Level 141 mEQ/L (135-145) Potassium Level 4.5 mEQ/L (3.4-4.9) Chloride Level 103 mEQ/L (98-107) Carbon Dioxide Level 29 mEQ/L (20-30) Anion Gap 9 (5-15) Blood Urea Nitrogen 17 mg/dL (7-23) Creatinine 0.7 mg/dL (0.5-0.9) Estimat Glomerular Filtration Rate mL/min (>60) Glucose Level 118 mg/dL (74-106) H Calcium Level 8.2 mg/dL (8.6-10.2) L Current Medications Medications (Trade) Dose Ordered Sig/Josiah Route PRN Reason Start Time Stop Time Status Last Admin Dose Admin Acetaminophen (Tylenol) 650 mg Q4H PRN GT MILD PAIN, TEMP>100.5 09/19/16 18:15 10/19/16 18:14 Amitriptyline HCl (Elavil) 10 mg BEDTIME GT 09/19/16 21:00 10/19/16 20:59 09/23/16 20:33 Docusate Sodium (Colace) 100 mg DAILY GT 09/19/16 19:30 10/19/16 19:29 09/23/16 09:30 Heparin Sodium (Porcine) (Heparin 5000 units/ml) 5,000 units EVERY 12 HOURS SUBQ 09/19/16 23:00 10/19/16 22:59 09/23/16 20:34 Levothyroxine Sodium (Synthroid) 150 mcg DAILY GT 09/24/16 09:00 10/24/16 08:59 Ondansetron HCl (Zofran) 4 mg Q6H PRN GT Nausea & Vomiting 09/19/16 18:00 10/19/16 17:59 JENNIFER MCKEE Sep 24, 2016 08:56
[2016-09-24 12:00] VITALS: BP 98/54
[2016-09-24] MEDS ORDERED: NS 275ml ONE (13:59)
--- NOTE | 2016-09-24 15:34 | Nephrology Progress Note ---
Assessment/Plan Plan Hypernatremia. --resolved 2. Hyperkalemia.--resolved 3. Acute kidney injury.--resolved 4. CKD. 5 Questionable urinary tract infection. 6. History of head and neck cancer. 7. History of leg deep vein thrombosis. 8. Ventilatory-dependent respiratory failure. 9.Hypothyroidsim Plan check bladder scan and need to flash Carey cath continue current Mx monitor I/o Subjective Subjective not too much urine the whole AM output per RN. Objective Objective Last 24 Hour Vital Signs Date Time Temp Pulse Resp B/P Pulse Ox O2 Delivery O2 Flow Rate FiO2 09/24/16 13:19 83 18 40 09/24/16 12:03 40 09/24/16 12:03 78 09/24/16 12:00 97.5 89 14 98/54 100 Mechanical Ventilator 40 09/24/16 10:34 86 19 40 09/24/16 08:38 90 18 40 09/24/16 08:00 40 09/24/16 08:00 75 09/24/16 08:00 98.6 87 12 101/42 99 Mechanical Ventilator 40 09/24/16 06:43 87 20 40 09/24/16 04:45 92 20 40 09/24/16 04:00 83 09/24/16 04:00 97.5 90 15 101/48 98 Mechanical Ventilator 40 09/24/16 04:00 40 09/24/16 03:01 90 12 40 09/24/16 01:02 88 12 40 09/24/16 00:00 83 09/24/16 00:00 40 09/24/16 00:00 98.4 88 17 82/58 98 Mechanical Ventilator 40 09/23/16 23:05 90 19 40 09/23/16 21:07 85 17 40 09/23/16 20:00 40 09/23/16 20:00 97.7 80 15 108/53 100 Mechanical Ventilator 40 09/23/16 20:00 89 09/23/16 18:36 79 12 40 09/23/16 17:10 80 21 40 09/23/16 16:00 97.3 83 18 96/45 100 Mechanical Ventilator 40 09/23/16 16:00 81 09/23/16 16:00 40 Intake and Output 09/23/16 09/24/16 19:00 07:00 Intake Total 920 ml 1080 ml Output Total 600 ml 350 ml Balance 320 ml 730 ml Free Water 400 ml 600 ml Tube Feeding 520 ml 480 ml Output Urine Total 600 ml 250 ml Stool Total 100 ml Laboratory Tests 09/24/16 03:50: White Blood Count 11.1H, Red Blood Count 3.12L, Hemoglobin 9.6L, Hematocrit 29.8L, Mean Corpuscular Volume 95, Mean Corpuscular Hemoglobin 30.8, Mean Corpuscular Hemoglobin Concent 32.3, Red Cell Distribution Width 14.3, Platelet Count 142L, Mean Platelet Volume 8.4, Neutrophils (%) (Auto) 79.1H, Lymphocytes (%) (Auto) 10.4L, Monocytes (%) (Auto) 6.9, Eosinophils (%) (Auto) 2.8, Basophils (%) (Auto) 0.9, Sodium Level 141, Potassium Level 4.5, Chloride Level 103, Carbon Dioxide Level 29, Anion Gap 9, Blood Urea Nitrogen 17, Creatinine 0.7, Estimat Glomerular Filtration Rate , Glucose Level 118H, Calcium Level 8.2L Height (Feet): 4 Height (Inches): 10.00 Weight (Pounds): 115 Objective NAD, alert,awake, trach on vent CTA b/l,no rales S1,S2,RRR, no M/R/G soft, non tender, BS+, PEG+ no edema HATHAWAY,FIONA Sep 24, 2016 15:34
[2016-09-24 16:11] VITALS: BP 109/57
[2016-09-24 20:00] VITALS: BP 111/57
--- NOTE | 2016-09-24 20:33 | General Progress Note ---
Assessment/Plan Assessment/Plan IMPRESSION: 1. Respiratory failure, chronic encephalopathy. 2. Left lung nodule 3. Tongue cancer with mets 4. Respiratory failure. 5. Tracheostomy G-tube. 6. Hypernatremia. 7. Acute renal failure. 8. Lower extremity deep vein thrombosis per history. PLAN ventilator as is off fluids and stable monitor labs IV antibiotics per ID- taper noted VRE colonized continue SNF meds follow up labs closely dc soon to snf planned in am if stable impression, plan, and exam edited and reviewed in detail care discussed with RN Subjective ROS Limited/Unobtainable: Yes Allergies: Coded Allergies: PENICILLINS (Verified Allergy, Unknown, 07/31/16) Subjective improved awaiting son's decision re: palliative care nontoxic Objective Last 24 Hour Vital Signs Date Time Temp Pulse Resp B/P Pulse Ox O2 Delivery O2 Flow Rate FiO2 09/24/16 20:00 40 09/24/16 18:58 88 18 40 09/24/16 17:53 77 20 Mechanical Ventilator 40 09/24/16 16:40 84 18 40 09/24/16 16:11 98.2 90 16 109/57 100 Mechanical Ventilator 40 09/24/16 16:04 40 09/24/16 16:04 79 09/24/16 14:53 89 16 40 09/24/16 13:19 83 18 40 09/24/16 12:03 40 09/24/16 12:03 78 09/24/16 12:00 97.5 89 14 98/54 100 Mechanical Ventilator 40 09/24/16 10:34 86 19 40 09/24/16 08:38 90 18 40 09/24/16 08:00 40 09/24/16 08:00 75 09/24/16 08:00 98.6 87 12 101/42 99 Mechanical Ventilator 40 09/24/16 06:43 87 20 40 09/24/16 04:45 92 20 40 09/24/16 04:00 83 09/24/16 04:00 97.5 90 15 101/48 98 Mechanical Ventilator 40 09/24/16 04:00 40 09/24/16 03:01 90 12 40 09/24/16 01:02 88 12 40 09/24/16 00:00 83 09/24/16 00:00 40 09/24/16 00:00 98.4 88 17 82/58 98 Mechanical Ventilator 40 09/23/16 23:05 90 19 40 09/23/16 21:07 85 17 40 Intake and Output 09/23/16 09/24/16 19:00 07:00 Intake Total 920 ml 1080 ml Output Total 600 ml 350 ml Balance 320 ml 730 ml Free Water 400 ml 600 ml Tube Feeding 520 ml 480 ml Output Urine Total 600 ml 250 ml Stool Total 100 ml Laboratory Tests 09/24/16 03:50: White Blood Count 11.1H, Red Blood Count 3.12L, Hemoglobin 9.6L, Hematocrit 29.8L, Mean Corpuscular Volume 95, Mean Corpuscular Hemoglobin 30.8, Mean Corpuscular Hemoglobin Concent 32.3, Red Cell Distribution Width 14.3, Platelet Count 142L, Mean Platelet Volume 8.4, Neutrophils (%) (Auto) 79.1H, Lymphocytes (%) (Auto) 10.4L, Monocytes (%) (Auto) 6.9, Eosinophils (%) (Auto) 2.8, Basophils (%) (Auto) 0.9, Sodium Level 141, Potassium Level 4.5, Chloride Level 103, Carbon Dioxide Level 29, Anion Gap 9, Blood Urea Nitrogen 17, Creatinine 0.7, Estimat Glomerular Filtration Rate , Glucose Level 118H, Calcium Level 8.2L Height (Feet): 4 Height (Inches): 10.00 Weight (Pounds): 115 Objective GENERAL: This is a well-developed female, comfortable in NAD HEENT: Fairly negative. Extraocular movements are intact. The patient's tracheostomy is midline. tongue lesion noted NECK: Supple. No adenopathy. LUNGS: Otherwise, fairly clear and symmetric. no rhonchi or wheeze CARDIAC: S1 and S2. Regular, rate, and rhythm without murmurs, rubs, or gallops. ABDOMEN: Soft, nontender, and nondistended.no HSM GT EXTREMITIES: No cyanosis, clubbing, or edema. NEUROLOGIC: The patient is weak, nonfocal, MARCY MAJOR Sep 24, 2016 20:33
[2016-09-25] VITALS: BP 103/49
[2016-09-25 04:00] VITALS: BP 118/62
--- NOTE | 2016-09-25 05:18 | Progress Note ---
DATE: 09/24/2016 CARDIOLOGY PROGRESS NOTE: SUBJECTIVE: The patient is on ventilator support. She is not weanable. 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 The patient is on anticoagulation in view of history of DVT. She also has paroxysmal atrial fibrillation. OBJECTIVE: VITAL SIGNS: Blood pressure 109/57, heart rate 90, respiratory rate 16, and no fevers. LUNGS: Bilateral breath sounds. CARDIAC: Regular rhythm and rate. ABDOMEN: Soft. EXTREMITIES: Trace edema. LABORATORY DATA: Potassium 4.5, BUN 17, and creatinine 0.7. White count is 11.1, hemoglobin 9.6, and platelets 142,000. IMPRESSION: 1. Severe hypothyroidism. 2. Severe protein-calorie malnutrition. 3. Head and neck cancer. 4. Prior history of deep venous thrombosis. 5. Paroxysmal atrial fibrillation. 6. Ventilator-dependent respiratory failure. 7. Anemia multifactorial . PLAN: No anticoagulation due to bleeding risk. Nutritional support by feeding tube. Ventilator support. Thyroid replacement. Chi Bhatti M.D. DR: Justin JOB#: [id number] CC:
[2016-09-25 05:46] LABS: BASOPHILS % (AUTO) 0.3 % (0.0-2.0); EOSINOPHILS % (AUTO) 2.9 % (0.0-3.0); LYMPHOCYTES % (AUTO) 10.6 % (20.0-45.0); MEAN CORPUSCULAR HEMOGLOBIN 30.7 PG (27.0-31.0); MEAN CORPUSCULAR HGB CONC 32.4 G/DL (32.0-36.0); MEAN CORPUSCULAR VOLUME 95 FL (80-99); MONOCYTES % (AUTO) 5.2 % (1.0-10.0); PLATELET COUNT 206 K/UL (150-450); RED BLOOD COUNT 3.11 M/UL (4.20-5.40); RED CELL DISTRIBUTION WIDTH 13.8 % (11.6-14.8); WHITE BLOOD COUNT 12.5 K/UL (4.8-10.8)
[2016-09-25 06:16] LABS: ALANINE AMINOTRANSFERASE 59 U/L (3-33); ALBUMIN/GLOBULIN RATIO 0.6 (1.0-2.7); ANION GAP 11 (5-15); ASPARTATE AMINO TRANSFERASE 54 U/L (5-40); CALCIUM 8.4 mg/dL (8.6-10.2); CARBON DIOXIDE 28 mEQ/L (20-30); CHLORIDE 101 mEQ/L (98-107); CREATININE 0.8 mg/dL (0.5-0.9); HEMOLYSIS 4; POTASSIUM 4.2 mEQ/L (3.4-4.9); SODIUM 140 mEQ/L (135-145); TOTAL PROTEIN 6.1 g/dL (6.6-8.7)
--- NOTE | 2016-09-25 06:19 | Progress Note ---
DATE: 09/23/2016 CARDIOLOGY PROGRESS NOTE SUBJECTIVE: The patient is on ventilator support via tracheostomy. She is tolerating G-tube feedings. Intravenous thyroid replacement is ongoing. Monitored rhythm sinus. OBJECTIVE: VITAL SIGNS: Blood pressure 196/45, pulse 83, respiratory rate 18. HEENT: Thin trach secretions. LUNGS: Few rhonchi. HEART: Regular rhythm and rate. Normal S1, S2. ABDOMEN: Soft. No edema. LABORATORY DATA: Laboratories pending. IMPRESSION: 1. Severe hypothyroidism ventilator-dependent respiratory failure. 2. Metastatic carcinoma of the plan. 3. Hypertensive heart disease. 4. Chronic diastolic congestive heart failure. PLAN: 1. Thyroid replacement by IV route prior to discharge. 2. No role for digoxin at this time. 3. Continue beta-diego. 4. Monitor volume status. 5. Dehydration with hypernatremia and hypovolemia almost corrected. 6. Hypotonic fluids. 7. Nutritional support. 8. Nutrition by feeding tube. 9. No diuretic therapy. Chi Bhatti M.D. DR: Clement JOB#: [id number] CC:
--- NOTE | 2016-09-25 07:45 | General Progress Note ---
Assessment/Plan Assessment/Plan IMPRESSION: 1. Respiratory failure, chronic encephalopathy. 2. Left lung nodule 3. Tongue cancer with mets 4. Respiratory failure. 5. Tracheostomy G-tube. 6. Hypernatremia. 7. Acute renal failure. 8. Lower extremity deep vein thrombosis per history. PLAN ventilator as is off fluids and stable monitor labs off antibiotics and stable VRE colonized continue SNF meds follow up labs after dc dc soon today to snf impression, plan, and exam edited and reviewed in detail care discussed with RN Subjective ROS Limited/Unobtainable: Yes Allergies: Coded Allergies: PENICILLINS (Verified Allergy, Unknown, 07/31/16) Subjective same nontoxic labs noted care discussed Objective Last 24 Hour Vital Signs Date Time Temp Pulse Resp B/P Pulse Ox O2 Delivery O2 Flow Rate FiO2 09/25/16 05:15 91 15 40 09/25/16 04:00 95 09/25/16 04:00 40 09/25/16 04:00 97.9 97 20 118/62 98 Mechanical Ventilator 09/25/16 02:54 90 20 40 09/25/16 00:00 40 09/25/16 00:00 98.2 90 19 103/49 98 Mechanical Ventilator 09/25/16 00:00 92 09/24/16 22:58 89 14 40 09/24/16 20:58 91 18 40 09/24/16 20:00 96 09/24/16 20:00 40 09/24/16 20:00 98.4 96 19 111/57 100 Mechanical Ventilator 09/24/16 18:58 88 18 40 09/24/16 17:53 77 20 Mechanical Ventilator 40 09/24/16 16:40 84 18 40 09/24/16 16:11 98.2 90 16 109/57 100 Mechanical Ventilator 40 09/24/16 16:04 40 09/24/16 16:04 79 09/24/16 14:53 89 16 40 09/24/16 13:19 83 18 40 09/24/16 12:03 40 09/24/16 12:03 78 09/24/16 12:00 97.5 89 14 98/54 100 Mechanical Ventilator 40 09/24/16 10:34 86 19 40 09/24/16 08:38 90 18 40 09/24/16 08:00 40 09/24/16 08:00 75 09/24/16 08:00 98.6 87 12 101/42 99 Mechanical Ventilator 40 Intake and Output 09/24/16 09/25/16 18:59 06:59 Intake Total 760 ml 1080 ml Output Total 125 ml 100 ml Balance 635 ml 980 ml Free Water 400 ml 600 ml Tube Feeding 360 ml 480 ml Output Urine Total 125 ml Stool Total 100 ml Laboratory Tests 09/25/16 03:25: White Blood Count 12.5H, Red Blood Count 3.11L, Hemoglobin 9.6L, Hematocrit 29.5L, Mean Corpuscular Volume 95, Mean Corpuscular Hemoglobin 30.7, Mean Corpuscular Hemoglobin Concent 32.4, Red Cell Distribution Width 13.8, Platelet Count 206, Mean Platelet Volume 9.0, Neutrophils (%) (Auto) 81.0H, Lymphocytes ( %) (Auto) 10.6L, Monocytes (%) (Auto) 5.2, Eosinophils (%) (Auto) 2.9, Basophils (%) (Auto) 0.3, Sodium Level 140, Potassium Level 4.2, Chloride Level 101, Carbon Dioxide Level 28, Anion Gap 11, Blood Urea Nitrogen 17, Creatinine 0.8, Estimat Glomerular Filtration Rate , Glucose Level 126H, Calcium Level 8.4L , Total Bilirubin < 0.2, Aspartate Amino Transf (AST/SGOT) 54H, Alanine Aminotransferase (ALT/SGPT) 59H, Alkaline Phosphatase 104, Total Protein 6.1L, Albumin 2.5L, Globulin 3.6, Albumin/Globulin Ratio 0.6L Height (Feet): 4 Height (Inches): 10.00 Weight (Pounds): 115 Objective GENERAL: This is a well-developed female, comfortable in NAD HEENT: Fairly negative. Extraocular movements are intact. The patient's tracheostomy is midline. tongue lesion noted NECK: Supple. No adenopathy. LUNGS: Otherwise, fairly clear and symmetric. no rhonchi or wheeze CARDIAC: S1 and S2. Regular, rate, and rhythm without murmurs, rubs, or gallops. ABDOMEN: Soft, nontender, and nondistended.no HSM GT EXTREMITIES: No cyanosis, clubbing, or edema. NEUROLOGIC: The patient is weak, nonfocal, MARCY MAJOR Sep 25, 2016 07:45
[2016-09-25 08:00] VITALS: BP 104/47
[2016-09-25] MEDS: Docusate 100mg tablet GT SCH (09:00)
[2016-09-25] MEDS: Heparin 5000 units/ml inj SUBQ SCH (09:01)
[2016-09-25] MEDS ORDERED: NS 275ml ONE (09:54)
--- NOTE | 2016-09-25 10:37 | Infectious Diseases Prog Note ---
Assessment/Plan Assessment/Plan A; Sepsis, SIRS s/p Rx Diarrhea Dehydration Acute renal failure hypothyroidism VRE colonization Tongue cancer P; Observe off antibiotics Subjective ROS Limited/Unobtainable: Yes Musculoskeletal: Reports: no symptoms Allergies: Coded Allergies: PENICILLINS (Verified Allergy, Unknown, 07/31/16) Objective Vital Signs Last 24 Hour Vital Signs Date Time Temp Pulse Resp B/P Pulse Ox O2 Delivery O2 Flow Rate FiO2 09/25/16 08:00 40 09/25/16 08:00 97.5 88 23 104/47 100 Mechanical Ventilator 40 09/25/16 08:00 93 09/25/16 05:15 91 15 40 09/25/16 04:00 95 09/25/16 04:00 40 09/25/16 04:00 97.9 97 20 118/62 98 Mechanical Ventilator 09/25/16 02:54 90 20 40 09/25/16 00:00 40 09/25/16 00:00 98.2 90 19 103/49 98 Mechanical Ventilator 09/25/16 00:00 92 09/24/16 22:58 89 14 40 09/24/16 20:58 91 18 40 09/24/16 20:00 96 09/24/16 20:00 40 09/24/16 20:00 98.4 96 19 111/57 100 Mechanical Ventilator 09/24/16 18:58 88 18 40 09/24/16 17:53 77 20 Mechanical Ventilator 40 09/24/16 16:40 84 18 40 09/24/16 16:11 98.2 90 16 109/57 100 Mechanical Ventilator 40 09/24/16 16:04 40 09/24/16 16:04 79 09/24/16 14:53 89 16 40 09/24/16 13:19 83 18 40 09/24/16 12:03 40 09/24/16 12:03 78 09/24/16 12:00 97.5 89 14 98/54 100 Mechanical Ventilator 40 Height (Feet): 4 Height (Inches): 10.00 Weight (Pounds): 115 General Appearance: no acute distress Respiratory/Chest: lungs clear, other - on ventilator Cardiovascular: normal rate Abdomen: soft, non tender, other - GT feeding, rectal tube Extremities: no edema Neurologic/Psychiatric: alert, responsive Laboratory Tests Test 09/25/16 03:25 White Blood Count 12.5 K/UL (4.8-10.8) H Red Blood Count 3.11 M/UL (4.20-5.40) L Hemoglobin 9.6 G/DL (12.0-16.0) L Hematocrit 29.5 % (37.0-47.0) L Mean Corpuscular Volume 95 FL (80-99) Mean Corpuscular Hemoglobin 30.7 PG (27.0-31.0) Mean Corpuscular Hemoglobin Concent 32.4 G/DL (32.0-36.0) Red Cell Distribution Width 13.8 % (11.6-14.8) Platelet Count 206 K/UL (150-450) Mean Platelet Volume 9.0 FL (6.5-10.1) Neutrophils (%) (Auto) 81.0 % (45.0-75.0) H Lymphocytes (%) (Auto) 10.6 % (20.0-45.0) L Monocytes (%) (Auto) 5.2 % (1.0-10.0) Eosinophils (%) (Auto) 2.9 % (0.0-3.0) Basophils (%) (Auto) 0.3 % (0.0-2.0) Sodium Level 140 mEQ/L (135-145) Potassium Level 4.2 mEQ/L (3.4-4.9) Chloride Level 101 mEQ/L (98-107) Carbon Dioxide Level 28 mEQ/L (20-30) Anion Gap 11 (5-15) Blood Urea Nitrogen 17 mg/dL (7-23) Creatinine 0.8 mg/dL (0.5-0.9) Estimat Glomerular Filtration Rate mL/min (>60) Glucose Level 126 mg/dL (74-106) H Calcium Level 8.4 mg/dL (8.6-10.2) L Total Bilirubin < 0.2 mg/dL (0.0-1.2) Aspartate Amino Transf (AST/SGOT) 54 U/L (5-40) H Alanine Aminotransferase (ALT/SGPT) 59 U/L (3-33) H Alkaline Phosphatase 104 U/L (35-104) Total Protein 6.1 g/dL (6.6-8.7) L Albumin 2.5 g/dL (3.5-5.2) L Globulin 3.6 g/dL Albumin/Globulin Ratio 0.6 (1.0-2.7) L Current Medications Medications (Trade) Dose Ordered Sig/Josiah Route PRN Reason Start Time Stop Time Status Last Admin Dose Admin Acetaminophen (Tylenol) 650 mg Q4H PRN GT MILD PAIN, TEMP>100.5 09/19/16 18:15 10/19/16 18:14 Amitriptyline HCl (Elavil) 10 mg BEDTIME GT 09/19/16 21:00 10/19/16 20:59 09/24/16 21:01 Docusate Sodium (Colace) 100 mg DAILY GT 09/19/16 19:30 10/19/16 19:29 09/23/16 09:30 Heparin Sodium (Porcine) (Heparin 5000 units/ml) 5,000 units EVERY 12 HOURS SUBQ 09/19/16 23:00 10/19/16 22:59 09/25/16 09:01 Levothyroxine Sodium (Synthroid) 150 mcg DAILY GT 09/24/16 09:00 10/24/16 08:59 09/25/16 09:00 Ondansetron HCl (Zofran) 4 mg Q6H PRN GT Nausea & Vomiting 09/19/16 18:00 10/19/16 17:59 JENNIFER MCKEE Sep 25, 2016 10:37
[2016-09-25 12:00] VITALS: BP 101/50
--- NOTE | 2016-09-25 21:48 | Discharge Summary ---
DATE OF ADMISSION: 09/19/2016 DATE OF DISCHARGE: 09/25/2016 ADMISSION DIAGNOSES: 1. Sepsis. 2. Respiratory failure. 3. Encephalopathy. 4. 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 5. History of pleural effusion. DISCHARGE DIAGNOSES: 1. Sepsis. 2. Respiratory failure. 3. Encephalopathy. 4. 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 5. History of pleural effusion. HOSPITAL COURSE: The patient is an unfortunate 81-year-old female that is admitted with complaints of leukocytosis. She was diagnosed with sepsis. She was pancultured and treated with broad-spectrum IV antibiotics. Her leukocytosis resolved. The rest of her workup was relatively unremarkable. Her cultures were negative. Chest x-ray was clear. After all cultures returned back, antibiotics were discontinued and the patient was observed. She had no further worsening of her leukocytosis and no fevers or chills. She will be discharged back to the half-way facility with close monitoring of her laboratories. DISCHARGE MEDICATIONS: Please see discharge medication list for discharge medications. DIET: G-tube feedings. ACTIVITIES: Ad-daren. Rico Madrigal M.D. DR: LILIANA JOB#: [id number] CC:
--- NOTE | 2016-09-26 23:28 | Progress Note ---
DATE: 09/25/2016 CARDIOLOGY PROGRESS NOTE Late entry for 09/25/2016. SUBJECTIVE: The patient is on ventilator support. No distress noted. OBJECTIVE: VITAL SIGNS: Blood pressure 118/62, heart rate 97, and respiratory rate 20. GENERAL: Nontoxic. LUNGS: Bilateral breath sounds. Trach site with thin secretions. HEART: Regular rhythm and rate. Normal S1 and S2. ABDOMEN: Soft. Trace edema. White count 12.5 and hemoglobin 9.6. Potassium 4.2. Albumin 2.5. IMPRESSION: 1. Ventilator dependent respiratory failure. 2. Severe protein-calorie malnutrition. 3. Paroxysmal atrial fibrillation. 4. Hypothyroidism. 5. Metastatic carcinoma. 6. Hypertensive heart disease. 7. Head and neck cancer. 8. Acute renal failure with dehydration and hypernatremia and hypovolemia, improved. PLAN: 1. Continue hypotonic fluids. 2. Continue beta-blockade. 3. No resumption of digitalis. 4. Thyroid replacement. 5. Maintain adequate hydration. 6. No diuretics. Chi Bhatti M.D. DR: DAVID JOB#: [id number] CC:
== END 2016-09-25 16:00 | DRG 870 ==
LOC: EDBD 12:27 → EMR 13:15 → 2W 13:24 → EDBEDREQ 14:17 → 2W 15:28
PROC: 5A1955Z Respiratory Ventilation, Greater than 96 Consecutive Hours (ICD-10-PCS; principal; 2016-09-22)
PROC: 0CJY8ZZ Inspection of Mouth and Throat, Via Natural or Artificial Opening Endoscopic (ICD-10-PCS; principal; 2016-09-22)
DX: A41.9 Sepsis, unspecified organism (principal); E43 Unspecified severe protein-calorie malnutrition; G93.41 Metabolic encephalopathy; J18.9 Pneumonia, unspecified organism; Z99.11 Dependence on respirator [ventilator] status; E87.0 Hyperosmolality and hypernatremia; N17.9 Acute kidney failure, unspecified; I13.0 Hypertensive heart and chronic kidney disease with heart failure and stage 1 through stage 4 chronic kidney disease, or unspecified chronic kidney disease; L89.153 Pressure ulcer of sacral region, stage 3; J96.11 Chronic respiratory failure with hypoxia; I50.32 Chronic diastolic (congestive) heart failure; Z43.1 Encounter for attention to gastrostomy; C79.89 Secondary malignant neoplasm of other specified sites; E86.0 Dehydration; Z43.0 Encounter for attention to tracheostomy; Z85.810 Personal history of malignant neoplasm of tongue; Z88.0 Allergy status to penicillin; Z86.718 Personal history of other venous thrombosis and embolism; I48.0 Paroxysmal atrial fibrillation; R91.1 Solitary pulmonary nodule; D64.9 Anemia, unspecified; K21.9 Gastro-esophageal reflux disease without esophagitis; R13.10 Dysphagia, unspecified; E87.6 Hypokalemia; N18.9 Chronic kidney disease, unspecified; E03.9 Hypothyroidism, unspecified; K13.79 Other lesions of oral mucosa
CPT/HCPCS: 36415; 71010; 80048; 80053; 80162; 80202; 81003; 82270; 82533; 82550; 82553; 83605; 83735; 83880; 84439; 84443; 84484; 84550; 85025; 87040; 87081; 87324; 93005; 94002; 94003; 94664; J8499; S0077

== ENCOUNTER 2016-11-12 00:33 | Inpatient (IN) | payer MEDICARE, BC ==
[2016-11-12] VITALS (7 sets, daily range): BP systolic 92–131; BP diastolic 43–67
[~2016-11-12] VITALS: Ht 160 cm; Wt 52.6 kg
[~2016-11-12 00:33] MED LIST changes: +ACETAMINOPHEN325 M1 GT; +AMITRIPTYLINE25 MG GT; +ATIVAN1 MG GT; +DIGOXIN0.25 MG/5 GT; +DOCUSATE SODIU100 M2 GT; +FUROSEMIDE40 MG GT
[2016-11-12] MEDS ORDERED: NS 1000ml 1,600 ML IVLG ONE (00:45)
[2016-11-12 01:23] LABS: MEAN CORPUSCULAR HEMOGLOBIN 31.1 PG (27.0-31.0); MEAN CORPUSCULAR HGB CONC 32.5 G/DL (32.0-36.0); MEAN CORPUSCULAR VOLUME 96 FL (80-99); MEAN PLATELET VOLUME 6.1 FL (6.5-10.1); PLATELET COUNT 383 K/UL (150-450); RED BLOOD COUNT 3.16 M/UL (4.20-5.40); RED CELL DISTRIBUTION WIDTH 12.9 % (11.6-14.8)
[2016-11-12] MEDS ORDERED: HEPARIN SO5000 UNIT2 SUBQ (01:28)
[2016-11-12] MEDS ORDERED: LEVOTHYROXINE150 MCG ORAL (01:29)
[2016-11-12] MEDS ORDERED: LEVAQUIN500 MG ORAL (01:29)
[2016-11-12] MEDS ORDERED: MIDODRINE HCL5 MG ORAL (01:30)
[2016-11-12 01:42] LABS: PROTHROMBIN TIME 10.7 SEC (9.30-11.50)
[2016-11-12 01:44] LABS: ALANINE AMINOTRANSFERASE 30 U/L (3-33); ALBUMIN/GLOBULIN RATIO 0.6 (1.0-2.7); ANION GAP 9 (5-15); ASPARTATE AMINO TRANSFERASE 28 U/L (5-40); CALCIUM 9.5 mg/dL (8.6-10.2); CARBON DIOXIDE 35 mEQ/L (20-30); CHLORIDE 94 mEQ/L (98-107); CREATININE 0.9 mg/dL (0.5-0.9); HEMOLYSIS 4; POTASSIUM 5.3 mEQ/L (3.4-4.9); SODIUM 138 mEQ/L (135-145); TOTAL PROTEIN 7.7 g/dL (6.6-8.7)
[2016-11-12 01:49] LABS: TROPONIN I < 0.30 ng/mL (<=0.30)
[2016-11-12 01:56] LABS: CKMB < 1.5 ng/mL (< 3.8)
[2016-11-12] MEDS ORDERED: Ertapenem 1 GM in NS 55 ML IV ONE (02:45)
[2016-11-12 02:48] LABS: KETONES,URINE 1+ (NEGATIVE); LEUKOCYTE ESTERASE ,URINE 2+ (NEGATIVE); NITRITE,URINE NEGATIVE (NEGATIVE); PH,URINE 7 (4.5-8.0); PROTEIN,URINE 3+ (NEGATIVE); UROBILINOGEN,URINE NORMAL MG/DL (0.0-1.0)
[2016-11-12] MEDS ORDERED: Ertapenem (INVanz) Inj ONE (02:49)
[2016-11-12 02:56] LABS: APPEARANCE,URINE CLOUDY
[2016-11-12 02:57] LABS: BACTERIA,URINE MODERATE /HPF; RBC,URINE TNTC /HPF (0 - 2); TRIPLE PHOSPHATE CRYSTAL,UR MANY /LPF; WBC,URINE 60-80 /HPF (0 - 2)
[2016-11-12 03:42] LABS: BAND NEUTROPHILS % (MANUAL) 19 % (0-8); BASOPHILS % (MANUAL) 0 % (0-2); EOSINOPHILS % (MANUAL) 1 % (0-3); LYMPHOCYTES % (MANUAL) 9 % (20-45); NEUTROPHILS % (MANUAL) 69 % (45-75); PLATELET ESTIMATE ADEQUATE; PLATELET MORPHOLOGY NORMAL; TOTAL CELLS COUNTED 100
--- NOTE | 2016-11-12 03:50 | Emergency Room Report ---
History of Present Illness General Chief Complaint: Abnormal Labs Source: Patient, Family Member, Medical Record, PMD Present Illness HPI Is a 81-year-old female with a history of colon cancer status post resection. She has a tracheostomy, feeding tube and also chronic Carey. She presents with abnormal lab of high WBC of over 30,000. Patient has no other complaint. She able to shake her head and answer question and yes or no fashion. Denies any pain. No nausea no vomiting. No fever or chills. Part of the history was from the medical record and from her primary care Dr. Grove. Allergies: Coded Allergies: PENICILLINS (Verified Allergy, Unknown, 07/31/16) Patient History Past Medical History: see triage record, old chart reviewed Past Surgical History: other Pertinent Family History: none Social History: Denies: smoking Last Menstrual Period: ukn Now: No Immunizations: other Reviewed Nursing Documentation: PMH: Agreed, PSxH: Agreed Nursing Documentation-PMH Past Medical History: No History, Except For Hx Cardiac Problems: Yes - A FIB,DVT RT UPPER EXTREMITY, ANEMIA, HYPOTHYROIDISM Hx Cancer: Yes - MAGLINANT NEOPLASM OF THE TONGUE, HEAD, FACE AND NECK Hx Gastrointestinal Problems: Yes - GERD, DYSPHAGIA Hx Neurological Problems: Yes - MUSCLE WEAKNESS Hx Speech Problem: Yes Hx Weakness: Yes Review of Systems Eye: Denies: blurred vision, eye pain ENT: Denies: ear pain, nose congestion, throat swelling Respiratory: Denies: cough, shortness of breath Cardiovascular: Denies: chest pain, palpitations Gastrointestinal: Denies: abdominal pain, diarrhea, nausea, vomiting Musculoskeletal: Denies: back pain, joint pain Skin: Denies: rash Neurological: Denies: headache, numbness Endocrine: Denies: increased thirst, increased urine Hematologic/Lymphatic: Denies: easy bruising All Other Systems: negative except mentioned in HPI Physical Exam Vital Signs Date Time Temp Pulse Resp B/P Pulse Ox O2 Delivery O2 Flow Rate FiO2 11/12/16 00:33 98.4 125 21 136/51 100 Mechanical Ventilator 40 vitals unremarkable Sp02 EP Interpretation: reviewed, normal General Appearance: no apparent distress, alert, Chronically Ill Head: normocephalic, atraumatic Eyes: bilateral eye EOMI, bilateral eye PERRL ENT: hearing grossly normal Neck: full range of motion, supple, no meningismus, tracheotomy Respiratory: chest non-tender, normal breath sounds, rhonchi Cardiovascular #1: regular rate, rhythm, no murmur Gastrointestinal: normal bowel sounds, non tender, no mass, no organomegaly, no bruit, non-distended Genitourinary: other - A Carey with cloudy urine Musculoskeletal: back normal, normal range of motion Neurologic: alert Psychiatric: mood/affect normal Skin: warm/dry Medical Decision Making Diagnostic Impression: Primary Impression: Sepsis Qualified Codes: A41.9 - Sepsis, unspecified organism Additional Impressions: UTI (urinary tract infection) Qualified Codes: N30.00 - Acute cystitis without hematuria Anemia, chronic disease Proteinuria Qualified Codes: R80.9 - Proteinuria, unspecified Prerenal azotemia Respiratory failure Qualified Codes: J96.10 - Chronic respiratory failure, unspecified whether with hypoxia or hypercapnia ER Course Patient presents with sepsis secondary to UTI. Brought spectrum antibiotic started. Patient has no cough and oxygenation is normal. She did grew up Klebsiella in her sputum. Is resistant to everything. No evidence of ACS, PE, dissection to name a few. Will admit for IV antibiotics. Prognosis poor. I discussed DO NOT RESUSCITATE status and her son said as of now she is a full code. Laboratory Tests Test 11/12/16 00:50 11/12/16 01:10 White Blood Count 28.0 K/UL (4.8-10.8) *H Red Blood Count 3.16 M/UL (4.20-5.40) L Hemoglobin 9.8 G/DL (12.0-16.0) L Hematocrit 30.2 % (37.0-47.0) L Mean Corpuscular Volume 96 FL (80-99) Mean Corpuscular Hemoglobin 31.1 PG (27.0-31.0) H Mean Corpuscular Hemoglobin Concent 32.5 G/DL (32.0-36.0) Red Cell Distribution Width 12.9 % (11.6-14.8) Platelet Count 383 K/UL (150-450) Mean Platelet Volume 6.1 FL (6.5-10.1) L Neutrophils (%) (Auto) % (45.0-75.0) Lymphocytes (%) (Auto) % (20.0-45.0) Monocytes (%) (Auto) % (1.0-10.0) Eosinophils (%) (Auto) % (0.0-3.0) Basophils (%) (Auto) % (0.0-2.0) Differential Total Cells Counted 100 Neutrophils % (Manual) 69 % (45-75) Lymphocytes % (Manual) 9 % (20-45) L Monocytes % (Manual) 2 % (1-10) Eosinophils % (Manual) 1 % (0-3) Basophils % (Manual) 0 % (0-2) Band Neutrophils 19 % (0-8) H Platelet Estimate Adequate Platelet Morphology Normal Red Blood Cell Morphology Normal Prothrombin Time 10.7 SEC (9.30-11.50) Prothromb Time International Ratio 1.0 (0.9-1.1) Activated Partial Thromboplast Time 35 SEC (23-33) H Sodium Level 138 mEQ/L (135-145) Potassium Level 5.3 mEQ/L (3.4-4.9) H Chloride Level 94 mEQ/L (98-107) L Carbon Dioxide Level 35 mEQ/L (20-30) H Anion Gap 9 (5-15) Blood Urea Nitrogen 36 mg/dL (7-23) H Creatinine 0.9 mg/dL (0.5-0.9) Estimat Glomerular Filtration Rate mL/min (>60) Glucose Level 141 mg/dL (74-106) H Lactic Acid Level 0.70 mmol/L (0.66-2.22) Calcium Level 9.5 mg/dL (8.6-10.2) Total Bilirubin < 0.2 mg/dL (0.0-1.2) Aspartate Amino Transf (AST/SGOT) 28 U/L (5-40) Alanine Aminotransferase (ALT/SGPT) 30 U/L (3-33) Alkaline Phosphatase 182 U/L (35-104) H Total Creatine Kinase 27 U/L (26-140) Creatine Kinase MB < 1.5 ng/mL (< 3.8) Creatine Kinase MB Relative Index 5.5 Troponin I < 0.30 ng/mL (<=0.30) Total Protein 7.7 g/dL (6.6-8.7) Albumin 3.0 g/dL (3.5-5.2) L Globulin 4.7 g/dL Albumin/Globulin Ratio 0.6 (1.0-2.7) L Urine Color Yellow Urine Appearance Cloudy Urine pH 7 (4.5-8.0) Urine Specific [place] 1.005 (1.005-1.035) Urine Protein 3+ (NEGATIVE) H Urine Glucose (UA) Negative (NEGATIVE) Urine Ketones 1+ (NEGATIVE) H Urine Occult Blood 5+ (NEGATIVE) H Urine Nitrite Negative (NEGATIVE) Urine Bilirubin Negative (NEGATIVE) Urine Urobilinogen Normal MG/DL (0.0-1.0) Urine Leukocyte Esterase 2+ (NEGATIVE) H Urine RBC Tntc /HPF (0 - 2) H Urine WBC 60-80 /HPF (0 - 2) H Urine Squamous Epithelial Cells None /LPF (NONE/OCC) Urine Triple Phosphate Crystals Many /LPF (NONE) H Urine Bacteria Moderate /HPF (NONE) H Lab Results Impression labs leukocytosis EKG Diagnostic Results EKG Time: 03:49 EP Interpretation: no Rate: tachycardiac Rhythm: NSR ST Segments: other - NSST changes Rhythm Strip Diag. Results Rhythm Strip Time: 03:50 EP Interpretation: yes Rate: 92 Rhythm: NSR Chest X-Ray Diagnostic Results Chest X-Ray Ordered: Yes # of Views/Limited/Complete: 1 View Interpretation: no effusion, no pneumothorax, other - mass in left lungs Indication: Shortness of Breath Impression: Other - no new changes Date Electronically Signed: Nov 12, 2016 Time Electronically Signed: 03:50 Last Vital Signs Date Time Temp Pulse Resp B/P Pulse Ox O2 Delivery O2 Flow Rate FiO2 11/12/16 01:43 98.5 109 25 107/62 100 Mechanical Ventilator 40 Status: improved Disposition: ADMITTED INPATIENT Condition: Serious Referrals: NON PHYSICIAN (PCP) ROSENDA VALLES M.D. Nov 12, 2016 03:50
--- NOTE | 2016-11-12 09:44 | Diagnostic Imaging Report ---
Indication: Dyspnea Comparison: 09/19/16 A single view chest radiograph was obtained. Findings: There is interstitial edema suspected with prominent reticular markings. Sternotomy is noted. Heart size is normal. The bones are osteopenic. Impression: Interstitial edema
[2016-11-12] MEDS: Furosemide 40mg tab GT SCH (09:51)
[2016-11-12] MEDS: Digoxin 0.125mg tab GT SCH (09:52)
[2016-11-12] MEDS: Docusate 100mg/10ml Liq GT SCH (09:52)
[2016-11-12] MEDS: Heparin 5000 units/ml inj SUBQ SCH ×2 (09:57→21:17)
[2016-11-12] MEDS: DuoNeb 0.5-3(2.5)mg/3ml neb HHN SCH ×4 (10:45→22:22)
[2016-11-12] MEDS ORDERED: Vancomycin 1gm/D5W 275ml IVPB ONE ×2 (11:00)
--- NOTE | 2016-11-12 11:52 | Consultation ---
Consult Note Consult Note HISTORY OF PRESENT ILLNESS: 81-year-old female who was noted to have significant leukocytosis and fevers and was sent to emergency room. The patient presented to the Emergency Room at [place] with confirmed leukocytosis. She was started on antibiotics. The patient had recent labs and she appeared to be within normal. intermediate chart reviewed The patient was unable to give much more history. The patient however is pleasant and hemodynamically stable currently. Blood pressure is stable at present. The patient is fully dependent and mostly bed bound. She has been trying to wean at the SNF but unable. The patient however has multiple medical problems and multiple medical issues. PAST MEDICAL HISTORY: Notable for chronic respiratory failure, GERD, prior history of pneumonia, head and neck cancer, G-tube, and history of dysrhythmias. metastatic disease, history of acute renal failure MEDICATIONS: Reviewed. ALLERGIES: Reviewed. PAST SURGICAL HISTORY: The patient has undergone a trach and GT; prior tongue biopsy SOCIAL HISTORY: The patient resides in a SNF; nonsmoker or drinker REVIEW OF SYSTEMS: unable PHYSICAL EXAMINATION: GENERAL: This is a well-developed female, comfortable and in NAD VITAL SIGNS: Blood pressure 92/45, respirations 12, temperature 96.6, and saturation 100%. 108 HEENT: Fairly negative. Extraocular movements are intact. The patient's tracheostomy is midline. tongue lesion noted NECK: Supple. No adenopathy. trach LUNGS: Otherwise, fairly clear and symmetric. no rhonchi or wheeze CARDIAC: S1 and S2. Regular rhythm without murmurs, rubs, or gallops. tachy ABDOMEN: Soft, nontender, and nondistended. no HSM: GT EXTREMITIES: No cyanosis, clubbing, or edema. NEUROLOGIC: The patient is weak, nonfocal, and reduced LOC LABORATORY DATA: Laboratory Tests Test 11/12/16 00:50 11/12/16 01:10 White Blood Count 28.0 K/UL (4.8-10.8) *H Red Blood Count 3.16 M/UL (4.20-5.40) L Hemoglobin 9.8 G/DL (12.0-16.0) L Hematocrit 30.2 % (37.0-47.0) L Mean Corpuscular Volume 96 FL (80-99) Mean Corpuscular Hemoglobin 31.1 PG (27.0-31.0) H Mean Corpuscular Hemoglobin Concent 32.5 G/DL (32.0-36.0) Red Cell Distribution Width 12.9 % (11.6-14.8) Platelet Count 383 K/UL (150-450) Mean Platelet Volume 6.1 FL (6.5-10.1) L Neutrophils (%) (Auto) % (45.0-75.0) Lymphocytes (%) (Auto) % (20.0-45.0) Monocytes (%) (Auto) % (1.0-10.0) Eosinophils (%) (Auto) % (0.0-3.0) Basophils (%) (Auto) % (0.0-2.0) Differential Total Cells Counted 100 Neutrophils % (Manual) 69 % (45-75) Lymphocytes % (Manual) 9 % (20-45) L Monocytes % (Manual) 2 % (1-10) Eosinophils % (Manual) 1 % (0-3) Basophils % (Manual) 0 % (0-2) Band Neutrophils 19 % (0-8) H Platelet Estimate Adequate Platelet Morphology Normal Red Blood Cell Morphology Normal Prothrombin Time 10.7 SEC (9.30-11.50) Prothromb Time International Ratio 1.0 (0.9-1.1) Activated Partial Thromboplast Time 35 SEC (23-33) H Sodium Level 138 mEQ/L (135-145) Potassium Level 5.3 mEQ/L (3.4-4.9) H Chloride Level 94 mEQ/L (98-107) L Carbon Dioxide Level 35 mEQ/L (20-30) H Anion Gap 9 (5-15) Blood Urea Nitrogen 36 mg/dL (7-23) H Creatinine 0.9 mg/dL (0.5-0.9) Estimat Glomerular Filtration Rate mL/min (>60) Glucose Level 141 mg/dL (74-106) H Lactic Acid Level 0.70 mmol/L (0.66-2.22) Calcium Level 9.5 mg/dL (8.6-10.2) Total Bilirubin < 0.2 mg/dL (0.0-1.2) Aspartate Amino Transf (AST/SGOT) 28 U/L (5-40) Alanine Aminotransferase (ALT/SGPT) 30 U/L (3-33) Alkaline Phosphatase 182 U/L (35-104) H Total Creatine Kinase 27 U/L (26-140) Creatine Kinase MB < 1.5 ng/mL (< 3.8) Creatine Kinase MB Relative Index 5.5 Troponin I < 0.30 ng/mL (<=0.30) Total Protein 7.7 g/dL (6.6-8.7) Albumin 3.0 g/dL (3.5-5.2) L Globulin 4.7 g/dL Albumin/Globulin Ratio 0.6 (1.0-2.7) L Urine Color Yellow Urine Appearance Cloudy Urine pH 7 (4.5-8.0) Urine Specific [place] 1.005 (1.005-1.035) Urine Protein 3+ (NEGATIVE) H Urine Glucose (UA) Negative (NEGATIVE) Urine Ketones 1+ (NEGATIVE) H Urine Occult Blood 5+ (NEGATIVE) H Urine Nitrite Negative (NEGATIVE) Urine Bilirubin Negative (NEGATIVE) Urine Urobilinogen Normal MG/DL (0.0-1.0) Urine Leukocyte Esterase 2+ (NEGATIVE) H Urine RBC Tntc /HPF (0 - 2) H Urine WBC 60-80 /HPF (0 - 2) H Urine Squamous Epithelial Cells None /LPF (NONE/OCC) Urine Triple Phosphate Crystals Many /LPF (NONE) H Urine Bacteria Moderate /HPF (NONE) H IMPRESSION: 1. Respiratory failure, chronic encephalopathy. 2. Left lung nodule metastatic 3. 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 4. Sepsis. 5. Tracheostomy G-tube. 6. Leukocytosis 7. History of Acute renal failure. 8. Lower extremity deep vein thrombosis per history. 9. Chronic encephalopathy PLAN care noted IV antibiotics respiratory care Ventilatory meds SNF meds supportive care suction no wean oxygen therapy prognosis guarded impression, plan, and exam edited and reviewed in detail care discussed with MARCY GARCIA Nov 12, 2016 11:52
[2016-11-12] MEDS: LORazepam 1mg tab GT SCH ×2 (13:58→17:39)
--- NOTE | 2016-11-12 22:30 | Consultation ---
DATE OF CONSULTATION: INFECTIOUS DISEASE CONSULTATION CONSULTING PHYSICIAN: ATTENDING PHYSICIAN: Rico Madrigal M.D. REFERRING PHYSICIAN: REASON FOR CONSULT: Sepsis and UTI. HISTORY OF PRESENT ILLNESS: This is a 81-year-old [facility] resident admitted today because of leukocytosis. The patient also has tachycardia, but not fever. The patient cannot tolerate more history. PAST MEDICAL HISTORY: Includes tongue cancer. The patient has chronic respiratory failure on ventilator, has history of anemia, hyperthyroiditis, atrial fibrillation, status post tracheostomy, status post G-tube placement. I had another admission in September of 2016 because of sepsis. Had another admission between 31 of July and August because of respiratory distress. ALLERGIES: Allergic to penicillin. MEDICATIONS: Vancomycin, levothyroxine, amitriptyline, lorazepam, DuoNeb inhaler, vancomycin, Colace, , heparin, midodrine, , sodium chloride, Tylenol, ertapenem. SOCIAL HISTORY: skilled nursing resident with poor functional and mental status. PHYSICAL EXAMINATION: VITAL SIGNS: Temperature 97.6 degrees, pulse 78, and blood pressure 92/45. GENERAL APPEARANCE: No acute distress, opens her eyes. HEAD AND NECK: Status post tracheostomy. HEART: Regular. LUNGS: Bilateral rhonchi on ventilator. ABDOMEN: Soft. G-tube present. EXTREMITIES: No edema. SKIN: No significant pressure ulcer. LABORATORY AND DIAGNOSTIC DATA: WBC 28,000, hemoglobin 9.8, hematocrit 30.2, and platelets 383,000. Sodium 138, potassium 5.3, chloride 94, bicarbonate 25, BUN 36, creatinine 0.9, glucose 141, albumin 3. Chest x-ray showed interstitial edema. UA showed WBC 60-80, RBC too numerous to count. IMPRESSION: Sepsis with tachycardia, hypertension, and leukocytosis. Source of infection may be urinary tract infection. The patient has hematuria and pyuria and history of chronic Carey catheter use. The other source may be pneumonia, has interstitial infiltrates, has chronic respiratory failure, tongue cancer, anemia, hypothyroidism and penicillin allergy. RECOMMENDATION: We will continue with ertapenem and vancomycin. We will followup with C. difficile, urine culture, blood culture, and MRSA screen culture. At the end of my examination, I thank Dr. Madrigal, for involving me in the care of this patient. Rodney Caicedo M.D. DR: JO JOB#: [id number] CC: MCKENZIE
[2016-11-13] VITALS: BP 92/41
[2016-11-13] MEDS: Ertapenem 1 GM in NS 55 ML IVPB SCH (02:51)
[2016-11-13] MEDS: DuoNeb 0.5-3(2.5)mg/3ml neb HHN SCH ×6 (03:19→23:03)
--- NOTE | 2016-11-13 04:00 | Consultation ---
DATE OF CONSULTATION: 11/12/2016 CARDIOLOGY CONSULTATION CONSULTING PHYSICIAN: Chi Bhatti M.D. REQUESTING PHYSICIAN: iRco Madrigal M.D. REASON FOR CONSULT: Evaluate for congestive heart failure. 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 She was noted to have leukocytosis and fevers and sent to the emergency room. She was started on antibiotics. Concern is raised over the possibility of pulmonary venous congestion noted on her chest x-ray prompting this consultation. 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 ALLERGIES: Reviewed in the medical record. MEDICATIONS: Reviewed and reconciled. SOCIAL HISTORY: No record of smoking, alcohol, or substance abuse. REVIEW OF SYSTEMS: Not obtainable from the patient at this time. PHYSICAL EXAMINATION: VITAL SIGNS: Blood pressure 92/45, heart rate 108, and respiratory rate 12. The patient is afebrile. HEENT: Trach site, midline tongue lesion noted. LUNGS: Coarse breath sounds with rhonchi. HEART: Regular rhythm. Rapid rate. Normal S1 and S2 with no murmur. ABDOMEN: Soft. G-tube intact. No edema. LABORATORY DATA: White count 28 and hemoglobin 9.8. Sodium 138, potassium 5.3, chloride 94, bicarb 35, BUN 36, creatinine 0.9, and glucose 141. Lactic acid 0.7. Troponin negative. Urinalysis with too numerous to count red cells and 60 to 80 white cells. Chest x-ray reveals nodular disease on the left lower lobe, pulmonary venous congestion, and interstitial infiltrates. IMPRESSION: 1. Chronic respiratory failure. 2. Metastatic head and neck cancer. 3. Sepsis. 4. Healthcare-acquired pneumonia. 5. Shock. 6. History of deep venous thrombosis. 7. Paroxysmal atrial fibrillation. PLAN: 1. No diuresis at this time. 2. Antimicrobials and bronchodilators. 3. Cautious hydration with IV intravenous fluids. 4. Antimicrobials. 5. Ventilator support. 6. DVT prophylaxis. 7. Check natriuretic peptide assay. 8. Followup thyroid panel. 9. Continue midodrine. Once hemodynamically improved, may consider tapering off this drug. Chi Fidel Bhatti DR: DAVID JOB#: [id number] CC:
[2016-11-13 04:02] VITALS: BP 99/42
[2016-11-13 05:31] LABS: MEAN CORPUSCULAR HEMOGLOBIN 31.2 PG (27.0-31.0); MEAN CORPUSCULAR HGB CONC 32.2 G/DL (32.0-36.0); MEAN CORPUSCULAR VOLUME 97 FL (80-99); MEAN PLATELET VOLUME 6.1 FL (6.5-10.1); PLATELET COUNT 321 K/UL (150-450); RED BLOOD COUNT 2.55 M/UL (4.20-5.40); RED CELL DISTRIBUTION WIDTH 12.9 % (11.6-14.8); WHITE BLOOD COUNT 13.8 K/UL (4.8-10.8)
[2016-11-13 05:56] LABS: ALANINE AMINOTRANSFERASE 19 U/L (3-33); ALBUMIN/GLOBULIN RATIO 0.5 (1.0-2.7); ANION GAP 10 (5-15); ASPARTATE AMINO TRANSFERASE 21 U/L (5-40); CALCIUM 8.7 mg/dL (8.6-10.2); CARBON DIOXIDE 32 mEQ/L (20-30); CHLORIDE 97 mEQ/L (98-107); CREATININE 0.8 mg/dL (0.5-0.9); HEMOLYSIS 6; POTASSIUM 4.8 mEQ/L (3.4-4.9); SODIUM 139 mEQ/L (135-145); TOTAL PROTEIN 6.3 g/dL (6.6-8.7)
[2016-11-13 08:00] VITALS: BP 97/49
--- NOTE | 2016-11-13 08:29 | General Progress Note ---
Assessment/Plan Problem List: (1) Prerenal azotemia ICD Codes: R79.89 - Other specified abnormal findings of blood chemistry SNOMED: 803584686 (2) Anemia, chronic disease ICD Codes: D63.8 - Anemia in other chronic diseases classified elsewhere SNOMED: 824957251 (3) Sepsis ICD Codes: A41.9 - Sepsis, unspecified organism SNOMED: 25277322 Qualifiers: Qualified Codes: A41.9 - Sepsis, unspecified organism (4) UTI (urinary tract infection) ICD Codes: N39.0 - Urinary tract infection, site not specified SNOMED: 79213814 Qualifiers: Qualified Codes: N30.00 - Acute cystitis without hematuria (5) Tongue malignant neoplasm ICD Codes: C02.9 - Malignant neoplasm of tongue, unspecified SNOMED: 054864979 (6) Respiratory failure ICD Codes: J96.90 - Respiratory failure, unspecified, unspecified whether with hypoxia or hypercapnia SNOMED: 125006527 Qualifiers: Qualified Codes: J96.10 - Chronic respiratory failure, unspecified whether with hypoxia or hypercapnia Status: stable Assessment/Plan repeat cbc transfuse prn monitor for bleeding abx per ID skin care trach care gt feeds follow up cultures Subjective ROS Limited/Unobtainable: No Constitutional: Reports: malaise, weakness HEENT: Reports: no symptoms Cardiovascular: Reports: no symptoms Respiratory: Reports: cough Gastrointestinal/Abdominal: Reports: difficulty swallowing Genitourinary: Reports: no symptoms Neurologic/Psychiatric: Reports: pre-existing deficit Endocrine: Reports: no symptoms Hematologic/Lymphatic: Reports: anemia Allergies: Coded Allergies: PENICILLINS (Verified Allergy, Unknown, 07/31/16) All Systems: reviewed and negative except above Subjective no events. decrease h/h noted. no bleeding. wbc trending down. on the vent. alert. follows commands Objective Last 24 Hour Vital Signs Date Time Temp Pulse Resp B/P Pulse Ox O2 Delivery O2 Flow Rate FiO2 11/13/16 08:00 40 11/13/16 08:00 81 11/13/16 07:26 83 16 100 Mechanical Ventilator 11/13/16 07:16 76 13 99 Mechanical Ventilator 40 11/13/16 07:15 77 13 40 11/13/16 05:13 90 17 40 11/13/16 04:02 97.9 78 18 99/42 99 Mechanical Ventilator 40 11/13/16 04:00 40 11/13/16 04:00 78 11/13/16 03:21 81 16 100 Mechanical Ventilator 11/13/16 03:20 74 12 99 Mechanical Ventilator 40 11/13/16 03:19 74 14 40 11/13/16 01:29 77 12 40 11/13/16 00:00 75 11/13/16 00:00 40 11/13/16 00:00 97.9 87 20 92/41 95 Mechanical Ventilator 40 11/12/16 22:30 76 13 40 11/12/16 22:23 80 12 100 Mechanical Ventilator 11/12/16 22:22 76 12 100 Mechanical Ventilator 40 11/12/16 21:27 76 12 40 11/12/16 20:00 97.2 82 20 96/50 98 Mechanical Ventilator 40 11/12/16 20:00 76 11/12/16 20:00 40 11/12/16 19:45 84 12 100 Mechanical Ventilator 11/12/16 19:30 80 13 100 Mechanical Ventilator 40 11/12/16 19:30 81 13 40 11/12/16 16:51 89 13 40 11/12/16 16:00 40 11/12/16 16:00 72 11/12/16 16:00 97.9 74 12 92/43 99 Mechanical Ventilator 40 11/12/16 14:59 104 12 98 Mechanical Ventilator 40 11/12/16 14:53 40 11/12/16 14:53 101 12 98 Mechanical Ventilator 40 11/12/16 14:53 101 12 40 11/12/16 13:12 107 18 40 11/12/16 12:00 98.8 83 15 94/51 99 Mechanical Ventilator 40 11/12/16 12:00 40 11/12/16 12:00 84 11/12/16 12:00 79 11/12/16 10:55 102 16 98 Mechanical Ventilator 40 11/12/16 10:45 40 11/12/16 10:45 103 16 98 Mechanical Ventilator 40 11/12/16 10:43 103 16 40 11/12/16 09:52 78 11/12/16 08:54 108 21 40 Intake and Output 11/12/16 11/13/16 19:00 07:00 Intake Total 1095 ml 1480 ml Output Total 725 ml 125 ml Balance 370 ml 1355 ml Intake Free Water 100 ml 50 ml IV Total 675 ml 900 ml Tube Feeding 320 ml 480 ml Other 50 ml Output Urine Total 725 ml 125 ml # Bowel Movements 2 2 Laboratory Tests 11/13/16 03:50: White Blood Count 13.8#H, Red Blood Count 2.55L, Hemoglobin 7.9L, Hematocrit 24.7L, Mean Corpuscular Volume 97, Mean Corpuscular Hemoglobin 31.2H, Mean Corpuscular Hemoglobin Concent 32.2, Red Cell Distribution Width 12.9, Platelet Count 321, Mean Platelet Volume 6.1L, Neutrophils (%) (Auto) , Lymphocytes (%) ( Auto) , Monocytes (%) (Auto) , Eosinophils (%) (Auto) , Basophils (%) (Auto) , Sodium Level 139, Potassium Level 4.8, Chloride Level 97L, Carbon Dioxide Level 32H, Anion Gap 10, Blood Urea Nitrogen 29H, Creatinine 0.8, Estimat Glomerular Filtration Rate , Glucose Level 106, Calcium Level 8.7, Total Bilirubin < 0.2, Aspartate Amino Transf (AST/SGOT) 21, Alanine Aminotransferase (ALT/SGPT) 19, Alkaline Phosphatase 143H, Pro-B-Type Natriuretic Peptide 902H, Total Protein 6.3L, Albumin 2.2L, Globulin 4.1, Albumin/Globulin Ratio 0.5L, Thyroid Stimulating Hormone (TSH) 10.290H Height (Feet): 5 Height (Inches): 3.00 Weight (Pounds): 116 General Appearance: WD/WN, alert Neck: supple Cardiovascular: regular rhythm Respiratory/Chest: lungs clear, normal breath sounds, no respiratory distress Abdomen: normal bowel sounds, non tender, soft, no organomegaly Edema: no edema noted Arm (L), no edema noted Arm (R), no edema noted Leg (L), no edema noted Leg (R), no edema noted Pedal (L), no edema noted Pedal (R), no edema noted Generalized Neurologic: alert, responsive, normal mood/affect CHRISTINA HAMMOND Nov 13, 2016 08:28
[2016-11-13] MEDS: LORazepam 1mg tab GT SCH ×2 (08:43→12:33)
[2016-11-13] MEDS: Digoxin 0.125mg tab GT SCH (08:44)
[2016-11-13] MEDS: Furosemide 40mg tab GT SCH (08:44)
[2016-11-13] MEDS: Docusate 100mg/10ml Liq GT SCH (08:44)
[2016-11-13] MEDS: Heparin 5000 units/ml inj SUBQ SCH ×2 (08:45→21:17)
--- NOTE | 2016-11-13 08:49 | Pulmonology Progress Note ---
Assessment/Plan Assessment/Plan IMPRESSION: 1. Respiratory failure, chronic encephalopathy. 2. Left lung nodule metastatic 3. 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 4. Sepsis. 5. Tracheostomy G-tube. 6. Leukocytosis 7. History of Acute renal failure. 8. Lower extremity deep vein thrombosis per history. 9. Chronic encephalopathy PLAN care noted and reviewed IV antibiotics noted respiratory care Ventilatory meds SNF meds supportive care suction no wean and maintain full vent support oxygen therapy prognosis guarded impression, plan, and exam edited and reviewed in detail care discussed with RN Subjective ROS Limited/Unobtainable: Yes Allergies: Coded Allergies: PENICILLINS (Verified Allergy, Unknown, 07/31/16) Subjective care noted events reviewed overall improved Objective Last 24 Hour Vital Signs Date Time Temp Pulse Resp B/P Pulse Ox O2 Delivery O2 Flow Rate FiO2 11/13/16 08:44 79 11/13/16 08:00 98.4 78 15 97/49 99 Mechanical Ventilator 40 11/13/16 08:00 40 11/13/16 08:00 81 11/13/16 07:26 83 16 100 Mechanical Ventilator 11/13/16 07:16 76 13 99 Mechanical Ventilator 40 11/13/16 07:15 77 13 40 11/13/16 05:13 90 17 40 11/13/16 04:02 97.9 78 18 99/42 99 Mechanical Ventilator 40 11/13/16 04:00 40 11/13/16 04:00 78 11/13/16 03:21 81 16 100 Mechanical Ventilator 11/13/16 03:20 74 12 99 Mechanical Ventilator 40 11/13/16 03:19 74 14 40 11/13/16 01:29 77 12 40 11/13/16 00:00 75 11/13/16 00:00 40 11/13/16 00:00 97.9 87 20 92/41 95 Mechanical Ventilator 40 11/12/16 22:30 76 13 40 11/12/16 22:23 80 12 100 Mechanical Ventilator 11/12/16 22:22 76 12 100 Mechanical Ventilator 40 11/12/16 21:27 76 12 40 11/12/16 20:00 97.2 82 20 96/50 98 Mechanical Ventilator 40 11/12/16 20:00 76 11/12/16 20:00 40 11/12/16 19:45 84 12 100 Mechanical Ventilator 11/12/16 19:30 80 13 100 Mechanical Ventilator 40 11/12/16 19:30 81 13 40 11/12/16 16:51 89 13 40 11/12/16 16:00 40 11/12/16 16:00 72 11/12/16 16:00 97.9 74 12 92/43 99 Mechanical Ventilator 40 11/12/16 14:59 104 12 98 Mechanical Ventilator 40 11/12/16 14:53 40 11/12/16 14:53 101 12 98 Mechanical Ventilator 40 11/12/16 14:53 101 12 40 11/12/16 13:12 107 18 40 11/12/16 12:00 98.8 83 15 94/51 99 Mechanical Ventilator 40 11/12/16 12:00 40 11/12/16 12:00 84 11/12/16 12:00 79 11/12/16 10:55 102 16 98 Mechanical Ventilator 40 11/12/16 10:45 40 11/12/16 10:45 103 16 98 Mechanical Ventilator 40 11/12/16 10:43 103 16 40 11/12/16 09:52 78 11/12/16 08:54 108 21 40 Intake and Output 11/12/16 11/13/16 19:00 07:00 Intake Total 1095 ml 1480 ml Output Total 725 ml 125 ml Balance 370 ml 1355 ml Intake Free Water 100 ml 50 ml IV Total 675 ml 900 ml Tube Feeding 320 ml 480 ml Other 50 ml Output Urine Total 725 ml 125 ml # Bowel Movements 2 2 Objective Sp02 EP Interpretation: reviewed, normal General Appearance: normal inspection, well appearing, no apparent distress, Head: normocephalic, atraumatic Eyes: bilateral eye normal inspection ENT: normal ENT inspection, Neck: normal inspection, no meningismus, carotid 2+ trach Respiratory: decreased breath sounds, with occasional rhonchi Cardiovascular #1: regular rate, rhythm, no murmur without MRG Gastrointestinal: non tender, soft, non-distended, no guarding, no rebound; GT Musculoskeletal: no CCE Neurologic: weak diffuse Microbiology Date/Time Source Procedure Growth Status 11/12/16 16:00 Stool Clostridium difficile Toxin Assay - Final Complete 11/12/16 01:10 Urine,Clean Catch Urine Culture - Preliminary Resulted Laboratory Tests 11/13/16 03:50: White Blood Count 13.8#H, Red Blood Count 2.55L, Hemoglobin 7.9L, Hematocrit 24.7L, Mean Corpuscular Volume 97, Mean Corpuscular Hemoglobin 31.2H, Mean Corpuscular Hemoglobin Concent 32.2, Red Cell Distribution Width 12.9, Platelet Count 321, Mean Platelet Volume 6.1L, Neutrophils (%) (Auto) , Lymphocytes (%) ( Auto) , Monocytes (%) (Auto) , Eosinophils (%) (Auto) , Basophils (%) (Auto) , Sodium Level 139, Potassium Level 4.8, Chloride Level 97L, Carbon Dioxide Level 32H, Anion Gap 10, Blood Urea Nitrogen 29H, Creatinine 0.8, Estimat Glomerular Filtration Rate , Glucose Level 106, Calcium Level 8.7, Total Bilirubin < 0.2, Aspartate Amino Transf (AST/SGOT) 21, Alanine Aminotransferase (ALT/SGPT) 19, Alkaline Phosphatase 143H, Pro-B-Type Natriuretic Peptide 902H, Total Protein 6.3L, Albumin 2.2L, Globulin 4.1, Albumin/Globulin Ratio 0.5L, Thyroid Stimulating Hormone (TSH) 10.290H Current Medications Medications (Trade) Dose Ordered Sig/Josiah Route PRN Reason Start Time Stop Time Status Last Admin Dose Admin Acetaminophen (Tylenol) 650 mg Q4H PRN GT Pain Scale (3-5) 11/12/16 09:00 12/12/16 08:59 Albuterol/ Ipratropium 3 ml 3 ml Q4HRT HHN 11/12/16 11:00 11/17/16 10:59 11/13/16 07:14 Amitriptyline HCl (Elavil) 10 mg BEDTIME GT 11/12/16 21:00 12/12/16 20:59 11/12/16 21:18 Digoxin (Lanoxin) 0.125 mg DAILY GT 11/12/16 10:00 12/12/16 09:59 11/13/16 08:44 Docusate Sodium (Colace) 100 mg DAILY GT 11/12/16 10:00 12/12/16 09:59 11/13/16 08:44 Ertapenem/Sodium Chloride (INVanz/Sodium Chloride) 55 ml @ 110 mls/hr Q24H IVPB 11/13/16 03:00 11/18/16 02:59 11/13/16 02:51 Furosemide (Lasix) 40 mg DAILY GT 11/12/16 10:00 12/12/16 09:59 11/13/16 08:44 Heparin Sodium (Porcine) (Heparin 5000 units/ml) 5,000 units EVERY 12 HOURS SUBQ 11/12/16 10:00 12/12/16 09:59 11/13/16 08:45 Levothyroxine Sodium (Synthroid) 150 mcg DAILY GT 11/13/16 09:00 12/13/16 08:59 11/13/16 08:45 Lorazepam (Ativan) 1 mg THREE TIMES A DAY GT 11/12/16 13:00 11/19/16 12:59 11/13/16 08:43 Midodrine (Pro-Amatine) 5 mg THREE TIMES A DAY ORAL 11/12/16 10:00 12/12/16 09:59 11/13/16 08:44 Sodium Chloride 1,000 ml @ 75 mls/hr [id number] IV 11/12/16 09:30 12/12/16 09:29 11/12/16 23:01 Vancomycin HCl 1 ea 1 ea DAILY PRN MISC Per rx protocol 11/12/16 09:00 12/12/16 08:59 Vancomycin HCl/ Dextrose (Vancomycin/D5W) 110 ml @ 110 mls/hr Q24H IVPB 11/13/16 11:00 11/18/16 10:59 MARCY MAJOR Nov 13, 2016 08:49
--- NOTE | 2016-11-13 09:38 | Wound Care Consultation ---
Wound Assessment Wound Assessment #1: Wound Number: #1 Wound Present on Admission: Yes New Wound: No Status Change of Wound: No Wound Location Body Site: sacral Wound Type: pressure ulcer Ross Test: Does not Ross Pressure Ulcer Stage: deep tissue injury Wound Thickness: Full Thickness Wound Length: 7.0 Wound Width: 6.0 Wound Depth: utd Percent of Wound Purple/Maroon: 100 Wound Drainage Amount: None Wound Drainage Odor: None/Absent Tissue Surrounding Wound: Erythemic Wound General Appearance: Reddened - maroon Wound Assessment #2: Wound Number: #2 Wound Present on Admission: Yes New Wound: No Status Change of Wound: No Wound Location Body Site Modif: right Wound Location Body Site: sacral Wound Type: pressure ulcer Ross Test: Does not Ross Pressure Ulcer Stage: II Wound Thickness: Partial Thickness Wound Length: 1.5 Wound Width: 1.5 Wound Depth: 0.1 Percent of Wound [place]/Red: 100 Wound Drainage Description: Serosanguineous Wound Drainage Amount: Scant Wound Drainage Odor: None/Absent Tissue Surrounding Wound: Erythemic Wound General Appearance: Reddened Wound Comment #1 Sacral deep tissue injury. #2 Right sacral stage II pressure ulcer. Recommendation. -Local wound care as ordered. - Turn and reposition. -Offload affected site. -Keep clean and dry. -Optimize nutrition. -Low air loss SPR mattress. -Heel protectors. -Avoid shear and friction. - Assess and notify MD for any changes in condition noted to skin. YADIRA DIAMOND Nov 13, 2016 09:38
[2016-11-13 11:03] LABS: BASOPHILS % (AUTO) 0.6 % (0.0-2.0); EOSINOPHILS % (AUTO) 1.2 % (0.0-3.0); LYMPHOCYTES % (AUTO) 9.9 % (20.0-45.0); MEAN CORPUSCULAR HEMOGLOBIN 30.8 PG (27.0-31.0); MEAN CORPUSCULAR HGB CONC 31.9 G/DL (32.0-36.0); MEAN CORPUSCULAR VOLUME 97 FL (80-99); MEAN PLATELET VOLUME 5.9 FL (6.5-10.1); MONOCYTES % (AUTO) 6.8 % (1.0-10.0); NEUTROPHILS % (AUTO) 81.6 % (45.0-75.0); PLATELET COUNT 332 K/UL (150-450); RED BLOOD COUNT 2.93 M/UL (4.20-5.40); RED CELL DISTRIBUTION WIDTH 12.8 % (11.6-14.8); WHITE BLOOD COUNT 14.5 K/UL (4.8-10.8)
[2016-11-13] MEDS ORDERED: Tubing IV Secondary IV ONE (11:06)
[2016-11-13] MEDS: Vancomycin 500mg/D5W 110ml IVPB SCH ×2 (11:14)
--- NOTE | 2016-11-13 11:48 | Infectious Diseases Prog Note ---
Assessment/Plan Assessment/Plan antibiotics : vancomycin iv, ertapenem A 1. UTi 2. leucocytosis 3. respiratory failure 4. HTN 5. tongue cancer P 1. continue vancomycin iv, ertapenem 2. will follow up cultures Subjective ROS Limited/Unobtainable: Yes Allergies: Coded Allergies: PENICILLINS (Verified Allergy, Unknown, 07/31/16) Objective Vital Signs Last 24 Hour Vital Signs Date Time Temp Pulse Resp B/P Pulse Ox O2 Delivery O2 Flow Rate FiO2 11/13/16 11:03 79 14 100 Mechanical Ventilator 11/13/16 10:50 80 14 40 11/13/16 10:50 81 14 99 Mechanical Ventilator 40 11/13/16 09:18 95 19 40 11/13/16 08:44 79 11/13/16 08:00 98.4 78 15 97/49 99 Mechanical Ventilator 40 11/13/16 08:00 40 11/13/16 08:00 77 11/13/16 07:26 83 16 100 Mechanical Ventilator 11/13/16 07:16 76 13 99 Mechanical Ventilator 40 11/13/16 07:15 77 13 40 11/13/16 05:13 90 17 40 11/13/16 04:02 97.9 78 18 99/42 99 Mechanical Ventilator 40 11/13/16 04:00 40 11/13/16 04:00 78 11/13/16 03:21 81 16 100 Mechanical Ventilator 11/13/16 03:20 74 12 99 Mechanical Ventilator 40 11/13/16 03:19 74 14 40 11/13/16 01:29 77 12 40 11/13/16 00:00 75 11/13/16 00:00 40 11/13/16 00:00 97.9 87 20 92/41 95 Mechanical Ventilator 40 11/12/16 22:30 76 13 40 11/12/16 22:23 80 12 100 Mechanical Ventilator 11/12/16 22:22 76 12 100 Mechanical Ventilator 40 11/12/16 21:27 76 12 40 11/12/16 20:00 97.2 82 20 96/50 98 Mechanical Ventilator 40 11/12/16 20:00 76 11/12/16 20:00 40 11/12/16 19:45 84 12 100 Mechanical Ventilator 11/12/16 19:30 80 13 100 Mechanical Ventilator 40 11/12/16 19:30 81 13 40 11/12/16 16:51 89 13 40 6/11/17 16:00 40 11/12/16 16:00 72 11/12/16 16:00 97.9 74 12 92/43 99 Mechanical Ventilator 40 11/12/16 14:59 104 12 98 Mechanical Ventilator 40 11/12/16 14:53 40 11/12/16 14:53 101 12 98 Mechanical Ventilator 40 11/12/16 14:53 101 12 40 11/12/16 13:12 107 18 40 11/12/16 12:00 98.8 83 15 94/51 99 Mechanical Ventilator 40 11/12/16 12:00 40 11/12/16 12:00 84 11/12/16 12:00 79 Height (Feet): 5 Height (Inches): 3.00 Weight (Pounds): 116 HEENT: status post trach Respiratory/Chest: lungs clear Cardiovascular: normal rate, regular rhythm, no gallop/murmur Abdomen: soft, non tender, other - GT Extremities: no edema Microbiology Date/Time Source Procedure Growth Status 11/12/16 16:00 Stool Clostridium difficile Toxin Assay - Final Complete 11/12/16 01:10 Urine,Clean Catch Urine Culture - Preliminary Resulted Laboratory Tests Test 11/13/16 03:50 11/13/16 10:15 White Blood Count 13.8 K/UL (4.8-10.8) #H 14.5 K/UL (4.8-10.8) H Red Blood Count 2.55 M/UL (4.20-5.40) L 2.93 M/UL (4.20-5.40) L Hemoglobin 7.9 G/DL (12.0-16.0) L 9.0 G/DL (12.0-16.0) L Hematocrit 24.7 % (37.0-47.0) L 28.3 % (37.0-47.0) L Mean Corpuscular Volume 97 FL (80-99) 97 FL (80-99) Mean Corpuscular Hemoglobin 31.2 PG (27.0-31.0) H 30.8 PG (27.0-31.0) Mean Corpuscular Hemoglobin Concent 32.2 G/DL (32.0-36.0) 31.9 G/DL (32.0-36.0) L Red Cell Distribution Width 12.9 % (11.6-14.8) 12.8 % (11.6-14.8) Platelet Count 321 K/UL (150-450) 332 K/UL (150-450) Mean Platelet Volume 6.1 FL (6.5-10.1) L 5.9 FL (6.5-10.1) L Neutrophils (%) (Auto) % (45.0-75.0) 81.6 % (45.0-75.0) H Lymphocytes (%) (Auto) % (20.0-45.0) 9.9 % (20.0-45.0) L Monocytes (%) (Auto) % (1.0-10.0) 6.8 % (1.0-10.0) Eosinophils (%) (Auto) % (0.0-3.0) 1.2 % (0.0-3.0) Basophils (%) (Auto) % (0.0-2.0) 0.6 % (0.0-2.0) Sodium Level 139 mEQ/L (135-145) Potassium Level 4.8 mEQ/L (3.4-4.9) Chloride Level 97 mEQ/L (98-107) L Carbon Dioxide Level 32 mEQ/L (20-30) H Anion Gap 10 (5-15) Blood Urea Nitrogen 29 mg/dL (7-23) H Creatinine 0.8 mg/dL (0.5-0.9) Estimat Glomerular Filtration Rate mL/min (>60) Glucose Level 106 mg/dL (74-106) Calcium Level 8.7 mg/dL (8.6-10.2) Total Bilirubin < 0.2 mg/dL (0.0-1.2) Aspartate Amino Transf (AST/SGOT) 21 U/L (5-40) Alanine Aminotransferase (ALT/SGPT) 19 U/L (3-33) Alkaline Phosphatase 143 U/L (35-104) H Pro-B-Type Natriuretic Peptide 902 pg/mL (0-450) H Total Protein 6.3 g/dL (6.6-8.7) L Albumin 2.2 g/dL (3.5-5.2) L Globulin 4.1 g/dL Albumin/Globulin Ratio 0.5 (1.0-2.7) L Thyroid Stimulating Hormone (TSH) 10.290 uIU/mL (0.300-4.500) Digoxin Level Pending MARA BLOCK Nov 13, 2016 11:48
[2016-11-13 12:00] VITALS: BP 109/56
[2016-11-13] MEDS ORDERED: LORazepam 1mg tab GT PRN (14:15)
[2016-11-13 16:00] VITALS: BP 90/90
[2016-11-13 20:00] VITALS: BP 118/92
[2016-11-14] VITALS: BP 96/50
[2016-11-14] MEDS: Ertapenem 1 GM in NS 55 ML IVPB SCH (03:42)
[2016-11-14 04:00] VITALS: BP 91/32
--- NOTE | 2016-11-14 04:00 | Progress Note ---
DATE: 11/13/2016 CARDIOLOGY PROGRESS NOTE SUBJECTIVE: The patient remains on ventilator support. Blood pressure remains marginal, but somewhat improved. OBJECTIVE: VITAL SIGNS: Afebrile, blood pressure 97/49, pulse 70, and respirations 16. Monitored rhythm, sinus. HEENT: Temporal wasting. LUNGS: Diminished breath sounds with rhonchi. HEART: Regular rhythm and rate. Normal S1 and S2 with no murmur. ABDOMEN: Soft with G-tube intact. EXTREMITIES: Without edema. LABORATORY STUDIES: White count 13.8 and hemoglobin 7.9. BUN 29, creatinine 0.8, bicarb 32, sodium 139, potassium 4.8, and albumin 2.2. TSH is 10.2. IMPRESSION: 1. Shock. 2. Sepsis. 3. Anemia. 4. Secondary sinus tachycardia. 5. Respiratory failure. 6. Metastatic head and neck cancer. 7. Dysphagia with gastrostomy tube. 8. Severe protein-calorie malnutrition. 9. Paroxysmal atrial fibrillation. 10. History of deep venous thrombosis. 11. Hypothyroidism. PLAN: 1. Continue volume support. 2. Consider transfusion for further drop in hemoglobin. 3. Broad-spectrum antibiotics. 4. Ventilator support. 5. DVT prophylaxis. 6. Thyroid replacement. 7. Maintain midodrine at this time. 8. Condition remains critical. Prognosis guarded. Chi Bhatti M.D. DR: DAVID JOB#: [id number] CC:
[2016-11-14] MEDS: DuoNeb 0.5-3(2.5)mg/3ml neb HHN SCH ×6 (04:25→22:52)
[2016-11-14 05:29] LABS: BASOPHILS % (AUTO) 0.9 % (0.0-2.0); EOSINOPHILS % (AUTO) 2.4 % (0.0-3.0); LYMPHOCYTES % (AUTO) 11.9 % (20.0-45.0); MEAN CORPUSCULAR HEMOGLOBIN 31.2 PG (27.0-31.0); MEAN CORPUSCULAR HGB CONC 32.5 G/DL (32.0-36.0); MEAN CORPUSCULAR VOLUME 96 FL (80-99); MEAN PLATELET VOLUME 5.9 FL (6.5-10.1); MONOCYTES % (AUTO) 9.6 % (1.0-10.0); NEUTROPHILS % (AUTO) 75.2 % (45.0-75.0); PLATELET COUNT 349 K/UL (150-450); RED BLOOD COUNT 2.78 M/UL (4.20-5.40); RED CELL DISTRIBUTION WIDTH 13.2 % (11.6-14.8); WHITE BLOOD COUNT 12.1 K/UL (4.8-10.8)
[2016-11-14 08:00] VITALS: BP 96/55
--- NOTE | 2016-11-14 08:15 | General Progress Note ---
Assessment/Plan Problem List: (1) Prerenal azotemia ICD Codes: R79.89 - Other specified abnormal findings of blood chemistry SNOMED: 523804298 (2) Anemia, chronic disease ICD Codes: D63.8 - Anemia in other chronic diseases classified elsewhere SNOMED: 336445751 (3) Sepsis ICD Codes: A41.9 - Sepsis, unspecified organism SNOMED: 25775559 Qualifiers: Qualified Codes: A41.9 - Sepsis, unspecified organism (4) UTI (urinary tract infection) ICD Codes: N39.0 - Urinary tract infection, site not specified SNOMED: 24296534 Qualifiers: Qualified Codes: N30.00 - Acute cystitis without hematuria (5) Tongue malignant neoplasm ICD Codes: C02.9 - Malignant neoplasm of tongue, unspecified SNOMED: 947495621 (6) Respiratory failure ICD Codes: J96.90 - Respiratory failure, unspecified, unspecified whether with hypoxia or hypercapnia SNOMED: 758210000 Qualifiers: Qualified Codes: J96.10 - Chronic respiratory failure, unspecified whether with hypoxia or hypercapnia Status: stable, progressing Assessment/Plan iv abx follow up cultures monitor for bleeding skin care trach care gt feeds prn anxiolytics follow up cultures Subjective ROS Limited/Unobtainable: No Constitutional: Reports: malaise, weakness HEENT: Reports: no symptoms Cardiovascular: Reports: no symptoms Respiratory: Reports: cough Gastrointestinal/Abdominal: Reports: difficulty swallowing Genitourinary: Reports: no symptoms Neurologic/Psychiatric: Reports: pre-existing deficit Endocrine: Reports: no symptoms Hematologic/Lymphatic: Reports: anemia Allergies: Coded Allergies: PENICILLINS (Verified Allergy, Unknown, 07/31/16) All Systems: reviewed and negative except above Subjective no events. h/h better after repeat draw yesterday. ucx with gnr. on the vent. has sitter due to agitation(ie trying to get out of bed, pulling out iv) Objective Last 24 Hour Vital Signs Date Time Temp Pulse Resp B/P Pulse Ox O2 Delivery O2 Flow Rate FiO2 11/14/16 08:00 97.9 86 12 96/55 100 Mechanical Ventilator 40 11/14/16 08:00 40 11/14/16 07:21 87 18 100 Mechanical Ventilator 11/14/16 07:08 99 18 100 Mechanical Ventilator 40 11/14/16 07:08 99 18 40 11/14/16 04:35 92 20 40 11/14/16 04:00 98.3 96 18 91/32 100 Mechanical Ventilator 40 11/14/16 04:00 40 11/14/16 04:00 92 11/14/16 03:55 88 15 100 Mechanical Ventilator 11/14/16 03:45 86 16 100 Mechanical Ventilator 40 11/14/16 02:32 99 16 40 11/14/16 01:23 95 17 40 11/14/16 00:43 40 11/14/16 00:30 92 11/14/16 00:00 98.3 96 17 96/50 99 Mechanical Ventilator 40 11/13/16 23:06 96 20 100 Mechanical Ventilator 11/13/16 23:06 98 17 99 Mechanical Ventilator 40 11/13/16 23:02 91 15 40 11/13/16 20:59 81 14 40 11/13/16 20:00 40 11/13/16 20:00 98.1 93 26 118/92 99 Mechanical Ventilator 40 11/13/16 20:00 89 11/13/16 19:20 90 16 99 Mechanical Ventilator 40 11/13/16 19:20 87 17 100 Mechanical Ventilator 11/13/16 19:05 88 16 40 11/13/16 17:22 89 13 40 11/13/16 16:00 40 11/13/16 16:00 81 11/13/16 16:00 99.9 82 15 90/90 99 Mechanical Ventilator 40 11/13/16 15:38 90 17 100 Mechanical Ventilator 11/13/16 15:33 87 13 99 Mechanical Ventilator 40 11/13/16 15:31 87 13 40 11/13/16 13:06 85 14 40 11/13/16 12:00 97.9 85 16 109/56 99 Mechanical Ventilator 40 11/13/16 12:00 40 11/13/16 12:00 79 11/13/16 11:03 79 14 100 Mechanical Ventilator 11/13/16 10:50 80 14 40 11/13/16 10:50 81 14 99 Mechanical Ventilator 40 11/13/16 09:18 95 19 40 11/13/16 08:44 79 Intake and Output 11/13/16 11/14/16 19:00 07:00 Intake Total 1445 ml 1050 ml Output Total 1100 ml 400 ml Balance 345 ml 650 ml IV Total 935 ml 730 ml Tube Feeding 360 ml 320 ml Other 150 ml Output Urine Total 1100 ml 400 ml # Bowel Movements 2 1 Laboratory Tests 11/13/16 10:15: White Blood Count 14.5H, Red Blood Count 2.93L, Hemoglobin 9.0L, Hematocrit 28.3L, Mean Corpuscular Volume 97, Mean Corpuscular Hemoglobin 30.8, Mean Corpuscular Hemoglobin Concent 31.9L, Red Cell Distribution Width 12.8, Platelet Count 332, Mean Platelet Volume 5.9L, Neutrophils (%) (Auto) 81.6H, Lymphocytes (%) (Auto) 9.9L, Monocytes (%) (Auto) 6.8, Eosinophils (%) (Auto) 1.2, Basophils (%) (Auto) 0.6, Digoxin Level 1.2 11/14/16 03:40: White Blood Count 12.1H, Red Blood Count 2.78L, Hemoglobin 8.7L, Hematocrit 26.7L, Mean Corpuscular Volume 96, Mean Corpuscular Hemoglobin 31.2H, Mean Corpuscular Hemoglobin Concent 32.5, Red Cell Distribution Width 13.2, Platelet Count 349, Mean Platelet Volume 5.9L, Neutrophils (%) (Auto) 75.2H, Lymphocytes (%) (Auto) 11.9L, Monocytes (%) (Auto) 9.6, Eosinophils (%) (Auto) 2.4, Basophils (%) (Auto) 0.9 Height (Feet): 5 Height (Inches): 3.00 Weight (Pounds): 116 Objective General Appearance: WD/WN, alert Neck: supple Cardiovascular: regular rhythm Respiratory/Chest: lungs clear, normal breath sounds, no respiratory distress Abdomen: normal bowel sounds, non tender, soft, no organomegaly Edema: no edema noted Arm (L), no edema noted Arm (R), no edema noted Leg (L), no edema noted Leg (R), no edema noted Pedal (L), no edema noted Pedal (R), no edema noted Generalized Neurologic: alert, responsive, normal mood/affect CHRISTINA HAMMOND Nov 14, 2016 08:15
--- NOTE | 2016-11-14 08:21 | Cardiology Report ---
APPROVED REPORT EKG Measurement Heart [id number] Sinus tachycardia Nonspecific T wave abnormality Abnormal ECG
--- NOTE | 2016-11-14 08:41 | Pulmonology Progress Note ---
Assessment/Plan Assessment/Plan IMPRESSION: 1. Respiratory failure, chronic encephalopathy. 2. Left lung nodule metastatic 3. 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 4. Sepsis. 5. Tracheostomy G-tube. 6. Leukocytosis 7. History of Acute renal failure. 8. Lower extremity deep vein thrombosis per history. 9. Chronic encephalopathy PLAN exam overall unchanged care noted and reviewed IV antibiotics noted and cultures noted respiratory care Ventilatory care SNF meds supportive care suction as needed no wean for now oxygen therapy prognosis guarded and overall likelyhood of improvement low impression, plan, and exam edited and reviewed in detail care discussed with RN Subjective ROS Limited/Unobtainable: Yes Allergies: Coded Allergies: PENICILLINS (Verified Allergy, Unknown, 07/31/16) Subjective care noted events reviewed overall clinically better Objective Last 24 Hour Vital Signs Date Time Temp Pulse Resp B/P Pulse Ox O2 Delivery O2 Flow Rate FiO2 11/14/16 08:00 97.9 86 12 96/55 100 Mechanical Ventilator 40 11/14/16 08:00 40 11/14/16 07:21 87 18 100 Mechanical Ventilator 11/14/16 07:08 99 18 100 Mechanical Ventilator 40 11/14/16 07:08 99 18 40 11/14/16 04:35 92 20 40 11/14/16 04:00 98.3 96 18 91/32 100 Mechanical Ventilator 40 11/14/16 04:00 40 11/14/16 04:00 92 11/14/16 03:55 88 15 100 Mechanical Ventilator 11/14/16 03:45 86 16 100 Mechanical Ventilator 40 11/14/16 02:32 99 16 40 11/14/16 01:23 95 17 40 11/14/16 00:43 40 11/14/16 00:30 92 11/14/16 00:00 98.3 96 17 96/50 99 Mechanical Ventilator 40 11/13/16 23:06 96 20 100 Mechanical Ventilator 11/13/16 23:06 98 17 99 Mechanical Ventilator 40 11/13/16 23:02 91 15 40 11/13/16 20:59 81 14 40 11/13/16 20:00 40 11/13/16 20:00 98.1 93 26 118/92 99 Mechanical Ventilator 40 11/13/16 20:00 89 11/13/16 19:20 90 16 99 Mechanical Ventilator 40 11/13/16 19:20 87 17 100 Mechanical Ventilator 11/13/16 19:05 88 16 40 11/13/16 17:22 89 13 40 11/13/16 16:00 40 11/13/16 16:00 81 11/13/16 16:00 99.9 82 15 90/90 99 Mechanical Ventilator 40 11/13/16 15:38 90 17 100 Mechanical Ventilator 11/13/16 15:33 87 13 99 Mechanical Ventilator 40 11/13/16 15:31 87 13 40 11/13/16 13:06 85 14 40 11/13/16 12:00 97.9 85 16 109/56 99 Mechanical Ventilator 40 11/13/16 12:00 40 11/13/16 12:00 79 11/13/16 11:03 79 14 100 Mechanical Ventilator 11/13/16 10:50 80 14 40 11/13/16 10:50 81 14 99 Mechanical Ventilator 40 11/13/16 09:18 95 19 40 11/13/16 08:44 79 Intake and Output 11/13/16 11/14/16 19:00 07:00 Intake Total 1445 ml 1090 ml Output Total 1100 ml 400 ml Balance 345 ml 690 ml IV Total 935 ml 730 ml Tube Feeding 360 ml 360 ml Other 150 ml Output Urine Total 1100 ml 400 ml # Bowel Movements 2 1 Objective Sp02 EP Interpretation: reviewed, normal General Appearance: normal inspection, well appearing, no apparent distress, Head: normocephalic, atraumatic Eyes: bilateral eye normal inspection ENT: normal ENT inspection, Neck: normal inspection, no meningismus, carotid 2+ trach Respiratory: decreased breath sounds, with occasional rhonchi Cardiovascular #1: regular rate, rhythm, no murmur without MRG Gastrointestinal: non tender, soft, non-distended, no guarding, no rebound; GT Musculoskeletal: no CCE Neurologic: weak diffuse Microbiology Date/Time Source Procedure Growth Status 11/12/16 00:55 Blood Blood Culture - Preliminary NO GROWTH AFTER 48 HOURS Resulted 11/12/16 00:50 Blood Blood Culture - Preliminary NO GROWTH AFTER 48 HOURS Resulted 11/12/16 20:25 Sputum Expectorated Gram Stain - Final Resulted 11/12/16 20:25 Sputum Expectorated Sputum Culture - Preliminary Resulted 11/12/16 04:25 Nasal Nares MRSA Culture - Final NO METHICILLIN RESISTANT STAPH AUREUS... Complete 11/12/16 16:00 Stool Clostridium difficile Toxin Assay - Final Complete 11/12/16 01:10 Urine,Clean Catch Urine Culture - Preliminary Gram Negative Bacillus 1 Streptococcus Species Resulted Laboratory Tests 11/13/16 10:15: White Blood Count 14.5H, Red Blood Count 2.93L, Hemoglobin 9.0L, Hematocrit 28.3L, Mean Corpuscular Volume 97, Mean Corpuscular Hemoglobin 30.8, Mean Corpuscular Hemoglobin Concent 31.9L, Red Cell Distribution Width 12.8, Platelet Count 332, Mean Platelet Volume 5.9L, Neutrophils (%) (Auto) 81.6H, Lymphocytes (%) (Auto) 9.9L, Monocytes (%) (Auto) 6.8, Eosinophils (%) (Auto) 1.2, Basophils (%) (Auto) 0.6, Digoxin Level 1.2 11/14/16 03:40: White Blood Count 12.1H, Red Blood Count 2.78L, Hemoglobin 8.7L, Hematocrit 26.7L, Mean Corpuscular Volume 96, Mean Corpuscular Hemoglobin 31.2H, Mean Corpuscular Hemoglobin Concent 32.5, Red Cell Distribution Width 13.2, Platelet Count 349, Mean Platelet Volume 5.9L, Neutrophils (%) (Auto) 75.2H, Lymphocytes (%) (Auto) 11.9L, Monocytes (%) (Auto) 9.6, Eosinophils (%) (Auto) 2.4, Basophils (%) (Auto) 0.9 Current Medications Medications (Trade) Dose Ordered Sig/Josiah Route PRN Reason Start Time Stop Time Status Last Admin Dose Admin Acetaminophen (Tylenol) 650 mg Q4H PRN GT Pain Scale (3-5) 11/12/16 09:00 12/12/16 08:59 Albuterol/ Ipratropium 3 ml 3 ml Q4HRT HHN 11/12/16 11:00 11/17/16 10:59 11/14/16 07:08 Amitriptyline HCl (Elavil) 10 mg BEDTIME GT 11/12/16 21:00 12/12/16 20:59 11/13/16 21:17 Digoxin (Lanoxin) 0.125 mg DAILY GT 11/12/16 10:00 12/12/16 09:59 11/13/16 08:44 Docusate Sodium (Colace) 100 mg DAILY GT 11/12/16 10:00 12/12/16 09:59 11/13/16 08:44 Ertapenem/Sodium Chloride (INVanz/Sodium Chloride) 55 ml @ 110 mls/hr Q24H IVPB 11/13/16 03:00 11/18/16 23:59 11/14/16 03:42 Furosemide (Lasix) 40 mg DAILY GT 11/12/16 10:00 12/12/16 09:59 11/13/16 08:44 Heparin Sodium (Porcine) (Heparin 5000 units/ml) 5,000 units EVERY 12 HOURS SUBQ 11/12/16 10:00 12/12/16 09:59 11/13/16 21:17 Levothyroxine Sodium (Synthroid) 150 mcg ACBREAKFAST GT 11/14/16 06:30 12/14/16 06:29 11/14/16 05:25 Lorazepam (Ativan) 1 mg TIDPRN PRN GT For Anxiety 11/13/16 14:15 11/20/16 14:14 11/14/16 05:25 Midodrine (Pro-Amatine) 5 mg THREE TIMES A DAY GT 11/13/16 13:00 12/13/16 12:59 11/13/16 17:43 Sodium Chloride 1,000 ml @ 75 mls/hr [id number] IV 11/12/16 09:30 12/12/16 09:29 11/13/16 17:43 Vancomycin HCl 1 ea 1 ea DAILY PRN MISC Per rx protocol 11/12/16 09:00 12/12/16 08:59 Vancomycin HCl/ Dextrose (Vancomycin/D5W) 110 ml @ 110 mls/hr Q24H IVPB 11/13/16 11:00 11/18/16 10:59 11/13/16 11:14 MARCY MAJOR Nov 14, 2016 08:41
[2016-11-14] MEDS: Furosemide 40mg tab GT SCH (08:46)
[2016-11-14] MEDS: Docusate 100mg/10ml Liq GT SCH (08:46)
[2016-11-14] MEDS: Digoxin 0.125mg tab GT SCH (08:47)
[2016-11-14] MEDS: Heparin 5000 units/ml inj SUBQ SCH ×2 (08:49→21:08)
[2016-11-14] MEDS: Vancomycin 500mg/D5W 110ml IVPB SCH ×2 (11:24)
[2016-11-14 12:00] VITALS: BP 121/55
[2016-11-14 16:00] VITALS: BP 104/50
[2016-11-14 20:37] VITALS: BP 103/45
[2016-11-15] VITALS: BP 124/50
--- NOTE | 2016-11-15 00:15 | Progress Note ---
DATE: 11/14/2016 CARDIOLOGY PROGRESS NOTE SUBJECTIVE: The patient remains on ventilator support. Intermittent agitation noted on intravenous antibiotics. Monitored rhythm, sinus. OBJECTIVE: VITAL SIGNS: Blood pressure 91/32, pulse 96, respirations 18, and afebrile. LUNGS: Coarse breath sounds with few rhonchi. HEART: Regular rhythm and rate. Normal S1 and S2. ABDOMEN: Soft. G-tube intact. EXTREMITIES: Trace dependent edema. LABORATORY DATA: White count 12 and hemoglobin 8.7. TSH yesterday was 10.2. IMPRESSION: 1. Sepsis. 2. Shock. 3. Urinary tract infection. 4. Metastatic head and neck cancer. 5. Tracheostomy. 6. Respiratory failure. 7. Anemia. 8. Hypothyroidism. PLAN: 1. Antimicrobials. 2. Ventilator support. 3. Continue midodrine. 4. Volume support for low range of blood pressure. 5. Thyroid replacement ongoing. 6. Check cortisol level. Chi Bhatti M.D. DR: MADAN JOB#: [id number] CC:
[2016-11-15] MEDS: DuoNeb 0.5-3(2.5)mg/3ml neb HHN SCH ×6 (03:01→23:04)
[2016-11-15] MEDS: Ertapenem 1 GM in NS 55 ML IVPB SCH (03:09)
[2016-11-15 04:00] VITALS: BP 100/51
[2016-11-15 05:35] LABS: BASOPHILS % (AUTO) 0.8 % (0.0-2.0); EOSINOPHILS % (AUTO) 4.5 % (0.0-3.0); LYMPHOCYTES % (AUTO) 16.2 % (20.0-45.0); MEAN CORPUSCULAR HEMOGLOBIN 31.3 PG (27.0-31.0); MEAN CORPUSCULAR HGB CONC 32.7 G/DL (32.0-36.0); MEAN CORPUSCULAR VOLUME 96 FL (80-99); MEAN PLATELET VOLUME 5.6 FL (6.5-10.1); MONOCYTES % (AUTO) 9.3 % (1.0-10.0); NEUTROPHILS % (AUTO) 69.2 % (45.0-75.0); PLATELET COUNT 328 K/UL (150-450); RED BLOOD COUNT 2.58 M/UL (4.20-5.40); RED CELL DISTRIBUTION WIDTH 13.3 % (11.6-14.8); WHITE BLOOD COUNT 9.8 K/UL (4.8-10.8)
[2016-11-15 06:19] LABS: ALANINE AMINOTRANSFERASE 15 U/L (3-33); ALBUMIN/GLOBULIN RATIO 0.6 (1.0-2.7); ANION GAP 9 (5-15); ASPARTATE AMINO TRANSFERASE 18 U/L (5-40); CALCIUM 8.6 mg/dL (8.6-10.2); CARBON DIOXIDE 31 mEQ/L (20-30); CHLORIDE 99 mEQ/L (98-107); CREATININE 0.7 mg/dL (0.5-0.9); HEMOLYSIS 1; POTASSIUM 4.3 mEQ/L (3.4-4.9); SODIUM 139 mEQ/L (135-145); TOTAL PROTEIN 5.8 g/dL (6.6-8.7)
[2016-11-15 07:25] VITALS: BP 98/48
[2016-11-15] MEDS: Digoxin 0.125mg tab GT SCH (08:11)
[2016-11-15] MEDS: Acetaminophen 650mg/20.3ml GT PRN (08:11)
[2016-11-15] MEDS: Docusate 100mg/10ml Liq GT SCH (08:11)
[2016-11-15] MEDS: Furosemide 40mg tab GT SCH (08:12)
[2016-11-15] MEDS: Heparin 5000 units/ml inj SUBQ SCH ×2 (08:14→21:07)
--- NOTE | 2016-11-15 08:41 | General Progress Note ---
Assessment/Plan Problem List: (1) Prerenal azotemia ICD Codes: R79.89 - Other specified abnormal findings of blood chemistry SNOMED: 413701671 (2) Anemia, chronic disease ICD Codes: D63.8 - Anemia in other chronic diseases classified elsewhere SNOMED: 810008946 (3) Sepsis ICD Codes: A41.9 - Sepsis, unspecified organism SNOMED: 63903249 Qualifiers: Qualified Codes: A41.9 - Sepsis, unspecified organism (4) UTI (urinary tract infection) ICD Codes: N39.0 - Urinary tract infection, site not specified SNOMED: 87670812 Qualifiers: Qualified Codes: N30.00 - Acute cystitis without hematuria (5) Tongue malignant neoplasm ICD Codes: C02.9 - Malignant neoplasm of tongue, unspecified SNOMED: 160706734 (6) Respiratory failure ICD Codes: J96.90 - Respiratory failure, unspecified, unspecified whether with hypoxia or hypercapnia SNOMED: 104221053 Qualifiers: Qualified Codes: J96.10 - Chronic respiratory failure, unspecified whether with hypoxia or hypercapnia Status: stable, progressing Assessment/Plan iv abx follow up cultures monitor for bleeding skin care trach care gt feeds prn anxiolytics follow up cultures dc planning to snf tomorrow if ok with all Subjective ROS Limited/Unobtainable: No Constitutional: Reports: malaise, weakness HEENT: Reports: no symptoms Cardiovascular: Reports: no symptoms Respiratory: Reports: shortness of breath, sputum Gastrointestinal/Abdominal: Reports: difficulty swallowing Genitourinary: Reports: no symptoms Neurologic/Psychiatric: Reports: pre-existing deficit Endocrine: Reports: no symptoms Hematologic/Lymphatic: Reports: anemia Allergies: Coded Allergies: PENICILLINS (Verified Allergy, Unknown, 07/31/16) All Systems: reviewed and negative except above Subjective no events. still has sitter. no fever or chills. labs noted. Objective Last 24 Hour Vital Signs Date Time Temp Pulse Resp B/P Pulse Ox O2 Delivery O2 Flow Rate FiO2 11/15/16 08:11 79 11/15/16 07:48 79 14 100 Mechanical Ventilator 11/15/16 07:41 84 14 100 Mechanical Ventilator 40 11/15/16 07:41 84 14 40 11/15/16 07:25 99.3 79 16 98/48 100 Mechanical Ventilator 40 11/15/16 05:30 75 15 40 11/15/16 04:00 40 11/15/16 04:00 98.0 78 15 100/51 100 Mechanical Ventilator 40 11/15/16 03:23 84 11/15/16 03:07 78 15 100 Mechanical Ventilator 11/15/16 03:06 81 13 100 Mechanical Ventilator 40 11/15/16 03:04 86 19 40 11/15/16 01:30 70 12 40 11/15/16 00:00 80 11/15/16 00:00 40 11/15/16 00:00 98.1 82 18 124/50 100 Mechanical Ventilator 40 11/14/16 23:21 82 16 100 Mechanical Ventilator 11/14/16 22:58 81 14 100 Mechanical Ventilator 40 11/14/16 22:52 81 16 40 11/14/16 21:20 75 16 40 11/14/16 20:37 97.5 81 22 103/45 100 Mechanical Ventilator 40 11/14/16 20:00 40 11/14/16 19:36 78 20 100 Mechanical Ventilator 11/14/16 19:20 80 16 40 11/14/16 19:20 80 16 100 Mechanical Ventilator 40 11/14/16 19:12 77 11/14/16 16:39 73 14 40 11/14/16 16:00 97.9 79 16 104/50 100 Mechanical Ventilator 40 11/14/16 16:00 79 11/14/16 16:00 40 11/14/16 14:25 79 20 100 Mechanical Ventilator 11/14/16 14:24 83 14 100 Mechanical Ventilator 40 11/14/16 14:23 83 14 40 11/14/16 13:15 84 22 40 11/14/16 12:00 40 11/14/16 12:00 73 11/14/16 12:00 97.9 84 20 121/55 100 Mechanical Ventilator 40 11/14/16 11:42 85 18 100 Mechanical Ventilator 11/14/16 11:33 72 14 40 11/14/16 11:33 71 14 100 Mechanical Ventilator 40 11/14/16 09:30 96 20 40 11/14/16 08:47 86 Intake and Output 11/14/16 11/15/16 19:00 07:00 Intake Total 1465 ml 1401 ml Output Total 1850 ml 300 ml Balance -385 ml 1101 ml Intake Free Water 50 ml IV Total 935 ml 811 ml Tube Feeding 480 ml 440 ml Other 50 ml 100 ml Output Urine Total 1850 ml 300 ml # Bowel Movements 2 4 Laboratory Tests 11/15/16 03:15: White Blood Count 9.8, Red Blood Count 2.58L, Hemoglobin 8.1L, Hematocrit 24.7L , Mean Corpuscular Volume 96, Mean Corpuscular Hemoglobin 31.3H, Mean Corpuscular Hemoglobin Concent 32.7, Red Cell Distribution Width 13.3, Platelet Count 328, Mean Platelet Volume 5.6L, Neutrophils (%) (Auto) 69.2, Lymphocytes ( %) (Auto) 16.2L, Monocytes (%) (Auto) 9.3, Eosinophils (%) (Auto) 4.5H, Basophils (%) (Auto) 0.8, Sodium Level 139, Potassium Level 4.3, Chloride Level 99, Carbon Dioxide Level 31H, Anion Gap 9, Blood Urea Nitrogen 16, Creatinine 0.7, Estimat Glomerular Filtration Rate , Glucose Level 106, Calcium Level 8.6, Total Bilirubin < 0.2, Aspartate Amino Transf (AST/SGOT) 18, Alanine Aminotransferase (ALT/SGPT) 15, Alkaline Phosphatase 108H, Total Protein 5.8L, Albumin 2.2L, Globulin 3.6, Albumin/Globulin Ratio 0.6L, Cortisol [Pending] Height (Feet): 5 Height (Inches): 3.00 Weight (Pounds): 116 Objective General Appearance: WD/WN, alert Neck: supple Cardiovascular: regular rhythm Respiratory/Chest: lungs clear, normal breath sounds, no respiratory distress Abdomen: normal bowel sounds, non tender, soft, no organomegaly Edema: no edema noted Arm (L), no edema noted Arm (R), no edema noted Leg (L), no edema noted Leg (R), no edema noted Pedal (L), no edema noted Pedal (R), no edema noted Generalized Neurologic: alert, responsive, normal mood/affect CHRISTINA HAMMOND Nov 15, 2016 08:41
--- NOTE | 2016-11-15 11:43 | Pulmonology Progress Note ---
Assessment/Plan Assessment/Plan IMPRESSION: 1. Respiratory failure, chronic encephalopathy. 2. Left lung nodule metastatic 3. 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 4. Sepsis. 5. Tracheostomy G-tube. 6. Leukocytosis 7. History of Acute renal failure. 8. Lower extremity deep vein thrombosis per history. 9. Chronic encephalopathy PLAN exam overall without change care noted and reviewed IV antibiotics noted respiratory care Ventilatory care SNF meds supportive care suction as needed no wean for now oxygen therapy prognosis guarded discharge planning impression, plan, and exam edited and reviewed in detail care discussed with RN Subjective Allergies: Coded Allergies: PENICILLINS (Verified Allergy, Unknown, 07/31/16) Subjective care noted events reviewed overall clinically better Objective Last 24 Hour Vital Signs Date Time Temp Pulse Resp B/P Pulse Ox O2 Delivery O2 Flow Rate FiO2 11/15/16 10:51 76 14 100 Mechanical Ventilator 11/15/16 10:44 80 16 40 11/15/16 10:44 80 16 100 Mechanical Ventilator 40 11/15/16 09:07 81 16 40 11/15/16 08:41 99.3 11/15/16 08:11 79 11/15/16 08:00 85 11/15/16 08:00 40 11/15/16 07:48 79 14 100 Mechanical Ventilator 11/15/16 07:41 84 14 100 Mechanical Ventilator 40 11/15/16 07:41 84 14 40 11/15/16 07:25 99.3 79 16 98/48 100 Mechanical Ventilator 40 11/15/16 05:30 75 15 40 11/15/16 04:00 40 11/15/16 04:00 98.0 78 15 100/51 100 Mechanical Ventilator 40 11/15/16 03:23 84 11/15/16 03:07 78 15 100 Mechanical Ventilator 11/15/16 03:06 81 13 100 Mechanical Ventilator 40 11/15/16 03:04 86 19 40 11/15/16 01:30 70 12 40 11/15/16 00:00 80 11/15/16 00:00 40 11/15/16 00:00 98.1 82 18 124/50 100 Mechanical Ventilator 40 11/14/16 23:21 82 16 100 Mechanical Ventilator 11/14/16 22:58 81 14 100 Mechanical Ventilator 40 11/14/16 22:52 81 16 40 11/14/16 21:20 75 16 40 11/14/16 20:37 97.5 81 22 103/45 100 Mechanical Ventilator 40 11/14/16 20:00 40 11/14/16 19:36 78 20 100 Mechanical Ventilator 11/14/16 19:20 80 16 40 11/14/16 19:20 80 16 100 Mechanical Ventilator 40 11/14/16 19:12 77 11/14/16 16:39 73 14 40 11/14/16 16:00 97.9 79 16 104/50 100 Mechanical Ventilator 40 11/14/16 16:00 79 11/14/16 16:00 40 11/14/16 14:25 79 20 100 Mechanical Ventilator 11/14/16 14:24 83 14 100 Mechanical Ventilator 40 11/14/16 14:23 83 14 40 11/14/16 13:15 84 22 40 11/14/16 12:00 40 11/14/16 12:00 73 11/14/16 12:00 97.9 84 20 121/55 100 Mechanical Ventilator 40 11/14/16 11:42 85 18 100 Mechanical Ventilator Intake and Output 11/14/16 11/15/16 19:00 07:00 Intake Total 1465 ml 1401 ml Output Total 1850 ml 300 ml Balance -385 ml 1101 ml Intake Free Water 50 ml IV Total 935 ml 811 ml Tube Feeding 480 ml 440 ml Other 50 ml 100 ml Output Urine Total 1850 ml 300 ml # Bowel Movements 2 4 Objective Sp02 EP Interpretation: reviewed, normal General Appearance: normal inspection, well appearing, no apparent distress, Head: normocephalic, atraumatic Eyes: bilateral eye normal inspection ENT: normal ENT inspection, Neck: normal inspection, no meningismus, carotid 2+ trach Respiratory: decreased breath sounds, with occasional rhonchi Cardiovascular #1: regular rate, rhythm, no murmur without MRG Gastrointestinal: non tender, soft, non-distended, no guarding, no rebound; GT Musculoskeletal: no CCE Neurologic: weak diffuse Microbiology Date/Time Source Procedure Growth Status 11/12/16 20:25 Sputum Expectorated Gram Stain - Final Resulted 11/12/16 20:25 Sputum Culture - Preliminary Gram Negative Bacillus 1 Gram Negative Bacillus 2 Usual Upper Respiratory Anyi Resulted 11/12/16 16:00 Stool Clostridium difficile Toxin Assay - Final Complete Laboratory Tests 11/15/16 03:15: White Blood Count 9.8, Red Blood Count 2.58L, Hemoglobin 8.1L, Hematocrit 24.7L , Mean Corpuscular Volume 96, Mean Corpuscular Hemoglobin 31.3H, Mean Corpuscular Hemoglobin Concent 32.7, Red Cell Distribution Width 13.3, Platelet Count 328, Mean Platelet Volume 5.6L, Neutrophils (%) (Auto) 69.2, Lymphocytes ( %) (Auto) 16.2L, Monocytes (%) (Auto) 9.3, Eosinophils (%) (Auto) 4.5H, Basophils (%) (Auto) 0.8, Sodium Level 139, Potassium Level 4.3, Chloride Level 99, Carbon Dioxide Level 31H, Anion Gap 9, Blood Urea Nitrogen 16, Creatinine 0.7, Estimat Glomerular Filtration Rate , Glucose Level 106, Calcium Level 8.6, Total Bilirubin < 0.2, Aspartate Amino Transf (AST/SGOT) 18, Alanine Aminotransferase (ALT/SGPT) 15, Alkaline Phosphatase 108H, Total Protein 5.8L, Albumin 2.2L, Globulin 3.6, Albumin/Globulin Ratio 0.6L, Cortisol [Pending] 11/15/16 09:45: Vancomycin Level Trough 7.6 Current Medications Medications (Trade) Dose Ordered Sig/Josiah Route PRN Reason Start Time Stop Time Status Last Admin Dose Admin Acetaminophen (Tylenol) 650 mg Q4H PRN GT Pain Scale (3-5) 11/12/16 09:00 12/12/16 08:59 11/15/16 08:11 Albuterol/ Ipratropium 3 ml 3 ml Q4HRT HHN 11/12/16 11:00 11/17/16 10:59 11/15/16 10:44 Amitriptyline HCl (Elavil) 10 mg BEDTIME GT 11/12/16 21:00 12/12/16 20:59 11/14/16 21:08 Digoxin 0.125 mg 0.125 mg DAILY GT 11/12/16 10:00 12/12/16 09:59 11/15/16 08:11 Docusate Sodium (Colace) 100 mg DAILY GT 11/12/16 10:00 12/12/16 09:59 11/15/16 08:11 Ertapenem/Sodium Chloride (INVanz/Sodium Chloride) 55 ml @ 110 mls/hr Q24H IVPB 11/13/16 03:00 11/18/16 23:59 11/15/16 03:09 Furosemide (Lasix) 40 mg DAILY GT 11/12/16 10:00 12/12/16 09:59 11/15/16 08:12 Heparin Sodium (Porcine) (Heparin 5000 units/ml) 5,000 units EVERY 12 HOURS SUBQ 11/12/16 10:00 12/12/16 09:59 11/15/16 08:14 Levothyroxine Sodium (Synthroid) 150 mcg ACBREAKFAST GT 11/14/16 06:30 12/14/16 06:29 11/15/16 06:29 Lorazepam (Ativan) 1 mg TIDPRN PRN GT For Anxiety 11/13/16 14:15 11/20/16 14:14 11/14/16 05:25 Midodrine (Pro-Amatine) 5 mg THREE TIMES A DAY GT 11/13/16 13:00 12/13/16 12:59 11/15/16 08:11 Sodium Chloride (Sodium Chloride 1000ml bag) 1,000 ml @ 75 mls/hr [id number] IV 11/12/16 09:30 12/12/16 09:29 11/15/16 01:55 MARCY MAJOR Nov 15, 2016 11:43
[2016-11-15 12:00] VITALS: BP 94/48
[2016-11-15] MEDS ORDERED: Vancomycin 750mg/D5W 275ml IVPB SCH ×2 (12:00)
[2016-11-15 15:54] VITALS: BP 114/54
--- NOTE | 2016-11-15 17:36 | Infectious Diseases Prog Note ---
Assessment/Plan Assessment/Plan A 1. UTI 2. leucocytosis resolved 3. respiratory failure 4. HPN 5. tongue cancer P 1. continue Ertapenem 2. will follow up cultures Subjective ROS Limited/Unobtainable: Yes Allergies: Coded Allergies: PENICILLINS (Verified Allergy, Unknown, 07/31/16) Objective Vital Signs Last 24 Hour Vital Signs Date Time Temp Pulse Resp B/P Pulse Ox O2 Delivery O2 Flow Rate FiO2 11/15/16 16:58 91 22 40 11/15/16 16:00 40 11/15/16 15:54 98.5 88 18 114/54 99 Mechanical Ventilator 40 11/15/16 14:13 79 12 100 Mechanical Ventilator 11/15/16 14:05 75 12 100 Mechanical Ventilator 40 11/15/16 14:05 75 12 40 11/15/16 12:48 82 18 40 11/15/16 12:00 98.5 84 14 94/48 99 Mechanical Ventilator 40 11/15/16 12:00 80 11/15/16 12:00 40 11/15/16 10:51 76 14 100 Mechanical Ventilator 11/15/16 10:44 80 16 40 11/15/16 10:44 80 16 100 Mechanical Ventilator 40 11/15/16 09:07 81 16 40 11/15/16 08:41 99.3 11/15/16 08:11 79 11/15/16 08:00 85 11/15/16 08:00 40 11/15/16 07:48 79 14 100 Mechanical Ventilator 11/15/16 07:41 84 14 100 Mechanical Ventilator 40 11/15/16 07:41 84 14 40 11/15/16 07:25 99.3 79 16 98/48 100 Mechanical Ventilator 40 11/15/16 05:30 75 15 40 11/15/16 04:00 40 11/15/16 04:00 98.0 78 15 100/51 100 Mechanical Ventilator 40 11/15/16 03:23 84 11/15/16 03:07 78 15 100 Mechanical Ventilator 11/15/16 03:06 81 13 100 Mechanical Ventilator 40 11/15/16 03:04 86 19 40 11/15/16 01:30 70 12 40 11/15/16 00:00 80 11/15/16 00:00 40 11/15/16 00:00 98.1 82 18 124/50 100 Mechanical Ventilator 40 11/14/16 23:21 82 16 100 Mechanical Ventilator 11/14/16 22:58 81 14 100 Mechanical Ventilator 40 11/14/16 22:52 81 16 40 11/14/16 21:20 75 16 40 11/14/16 20:37 97.5 81 22 103/45 100 Mechanical Ventilator 40 11/14/16 20:00 40 11/14/16 19:36 78 20 100 Mechanical Ventilator 11/14/16 19:20 80 16 40 11/14/16 19:20 80 16 100 Mechanical Ventilator 40 11/14/16 19:12 77 Height (Feet): 5 Height (Inches): 3.00 Weight (Pounds): 116 General Appearance: no acute distress HEENT: status post trach Respiratory/Chest: other - on ventilator, few rhonchi Cardiovascular: normal rate Abdomen: soft, non tender, other - GT feeding Neurologic/Psychiatric: alert, responsive Microbiology Date/Time Source Procedure Growth Status 11/12/16 20:25 Sputum Expectorated Gram Stain - Final Resulted 11/12/16 20:25 Sputum Culture - Preliminary Gram Negative Bacillus 1 Gram Negative Bacillus 2 Usual Upper Respiratory Anyi Resulted Laboratory Tests Test 11/15/16 03:15 11/15/16 09:45 White Blood Count 9.8 K/UL (4.8-10.8) Red Blood Count 2.58 M/UL (4.20-5.40) L Hemoglobin 8.1 G/DL (12.0-16.0) L Hematocrit 24.7 % (37.0-47.0) L Mean Corpuscular Volume 96 FL (80-99) Mean Corpuscular Hemoglobin 31.3 PG (27.0-31.0) H Mean Corpuscular Hemoglobin Concent 32.7 G/DL (32.0-36.0) Red Cell Distribution Width 13.3 % (11.6-14.8) Platelet Count 328 K/UL (150-450) Mean Platelet Volume 5.6 FL (6.5-10.1) L Neutrophils (%) (Auto) 69.2 % (45.0-75.0) Lymphocytes (%) (Auto) 16.2 % (20.0-45.0) L Monocytes (%) (Auto) 9.3 % (1.0-10.0) Eosinophils (%) (Auto) 4.5 % (0.0-3.0) H Basophils (%) (Auto) 0.8 % (0.0-2.0) Sodium Level 139 mEQ/L (135-145) Potassium Level 4.3 mEQ/L (3.4-4.9) Chloride Level 99 mEQ/L (98-107) Carbon Dioxide Level 31 mEQ/L (20-30) H Anion Gap 9 (5-15) Blood Urea Nitrogen 16 mg/dL (7-23) Creatinine 0.7 mg/dL (0.5-0.9) Estimat Glomerular Filtration Rate mL/min (>60) Glucose Level 106 mg/dL (74-106) Calcium Level 8.6 mg/dL (8.6-10.2) Total Bilirubin < 0.2 mg/dL (0.0-1.2) Aspartate Amino Transf (AST/SGOT) 18 U/L (5-40) Alanine Aminotransferase (ALT/SGPT) 15 U/L (3-33) Alkaline Phosphatase 108 U/L (35-104) H Total Protein 5.8 g/dL (6.6-8.7) L Albumin 2.2 g/dL (3.5-5.2) L Globulin 3.6 g/dL Albumin/Globulin Ratio 0.6 (1.0-2.7) L Cortisol Pending Vancomycin Level Trough 7.6 ug/mL (5.0-12.0) Current Medications Medications (Trade) Dose Ordered Sig/Josiah Route PRN Reason Start Time Stop Time Status Last Admin Dose Admin Acetaminophen (Tylenol) 650 mg Q4H PRN GT Pain Scale (3-5) 11/12/16 09:00 12/12/16 08:59 11/15/16 08:11 Albuterol/ Ipratropium 3 ml 3 ml Q4HRT HHN 11/12/16 11:00 11/17/16 10:59 11/15/16 14:06 Amitriptyline HCl (Elavil) 10 mg BEDTIME GT 11/12/16 21:00 12/12/16 20:59 11/14/16 21:08 Digoxin 0.125 mg 0.125 mg DAILY GT 11/12/16 10:00 12/12/16 09:59 11/15/16 08:11 Docusate Sodium (Colace) 100 mg DAILY GT 11/12/16 10:00 12/12/16 09:59 11/15/16 08:11 Ertapenem/Sodium Chloride (INVanz/Sodium Chloride) 55 ml @ 110 mls/hr Q24H IVPB 11/13/16 03:00 11/18/16 23:59 11/15/16 03:09 Furosemide (Lasix) 40 mg DAILY GT 11/12/16 10:00 12/12/16 09:59 11/15/16 08:12 Heparin Sodium (Porcine) (Heparin 5000 units/ml) 5,000 units EVERY 12 HOURS SUBQ 11/12/16 10:00 12/12/16 09:59 11/15/16 08:14 Levothyroxine Sodium (Synthroid) 150 mcg ACBREAKFAST GT 11/14/16 06:30 12/14/16 06:29 11/15/16 06:29 Lorazepam (Ativan) 1 mg TIDPRN PRN GT For Anxiety 11/13/16 14:15 11/20/16 14:14 11/14/16 05:25 Midodrine (Pro-Amatine) 5 mg THREE TIMES A DAY GT 11/13/16 13:00 12/13/16 12:59 11/15/16 17:22 Sodium Chloride (Sodium Chloride 1000ml bag) 1,000 ml @ 75 mls/hr [id number] IV 11/12/16 09:30 12/12/16 09:29 11/15/16 17:22 JENNIFER MCKEE Nov 15, 2016 17:36
[2016-11-15 20:00] VITALS: BP 107/52
[2016-11-16] VITALS (7 sets, daily range): BP systolic 98–128; BP diastolic 40–61
[2016-11-16] MEDS: Ertapenem 1 GM in NS 55 ML IVPB SCH (03:00)
[2016-11-16] MEDS: DuoNeb 0.5-3(2.5)mg/3ml neb HHN SCH ×6 (03:05→23:06)
--- NOTE | 2016-11-16 03:15 | Progress Note ---
DATE: 11/15/2016 CARDIOLOGY PROGRESS NOTE: SUBJECTIVE: The patient remains on ventilator support. Episodes of agitation requiring sedative for safety. Monitored rhythm, sinus. Secretions from the trach site have diminished. OBJECTIVE: VITAL SIGNS: Blood pressure 98/48 to 124/50, heart rate 79 to 86, respiratory rate 12 to 19. The patient's T-max is 99.3. HEENT: Thin secretions. LUNGS: Coarse rhonchi. HEART: Regular rhythm and rate. Normal S1, S2. ABDOMEN: Soft with G-tube. EXTREMITIES: Trace edema. LABORATORY DATA: White count 9.8, hemoglobin 8.1. Potassium 4.3. Albumin 2.2. IMPRESSION: 1. Healthcare-acquired pneumonia. 2. Respiratory failure. 3. Shock. 4. Sepsis. 5. Secondary sinus tachycardia. 6. Severe protein-calorie malnutrition. 7. Hypothyroidism. 8. Resolved leukocytosis. 9. Chronic diastolic congestive heart failure. PLAN: 1. Respiratory therapy. 2. Ventilatory support. 3. Antibiotics per infectious disease [employer] consultant. 4. Thyroid replacement. 5. Protein supplement. 6. No role for diuresis presently. 7. Expect mobilization of extravascular fluid as colloid osmotic pressure improves. Fidel Fleming JOB#: [id number] CC:
[2016-11-16 05:27] LABS: MEAN CORPUSCULAR HGB CONC 35.4 G/DL (32.0-36.0); MEAN CORPUSCULAR VOLUME 96 FL (80-99); MEAN PLATELET VOLUME 5.7 FL (6.5-10.1); PLATELET COUNT 294 K/UL (150-450); RED CELL DISTRIBUTION WIDTH 12.8 % (11.6-14.8); WHITE BLOOD COUNT 9.1 K/UL (4.8-10.8)
--- NOTE | 2016-11-16 08:15 | General Progress Note ---
Assessment/Plan Problem List: (1) Prerenal azotemia ICD Codes: R79.89 - Other specified abnormal findings of blood chemistry SNOMED: 008394830 (2) Anemia, chronic disease ICD Codes: D63.8 - Anemia in other chronic diseases classified elsewhere SNOMED: 632450776 (3) Sepsis ICD Codes: A41.9 - Sepsis, unspecified organism SNOMED: 30018215 Qualifiers: Qualified Codes: A41.9 - Sepsis, unspecified organism (4) UTI (urinary tract infection) ICD Codes: N39.0 - Urinary tract infection, site not specified SNOMED: 03015014 Qualifiers: Qualified Codes: N30.00 - Acute cystitis without hematuria (5) Tongue malignant neoplasm ICD Codes: C02.9 - Malignant neoplasm of tongue, unspecified SNOMED: 378175105 (6) Respiratory failure ICD Codes: J96.90 - Respiratory failure, unspecified, unspecified whether with hypoxia or hypercapnia SNOMED: 070643774 Qualifiers: Qualified Codes: J96.10 - Chronic respiratory failure, unspecified whether with hypoxia or hypercapnia Status: stable, progressing Assessment/Plan iv abx follow up cultures monitor for bleeding skin care trach care gt feeds prn anxiolytics follow up cultures transfuse 2 units prbc dc planning to snf tomorrow if ok with all Subjective ROS Limited/Unobtainable: No Constitutional: Reports: malaise, weakness HEENT: Reports: no symptoms Cardiovascular: Reports: no symptoms Respiratory: Reports: cough Gastrointestinal/Abdominal: Reports: no symptoms Genitourinary: Reports: no symptoms Neurologic/Psychiatric: Reports: pre-existing deficit Endocrine: Reports: no symptoms Hematologic/Lymphatic: Reports: anemia Allergies: Coded Allergies: PENICILLINS (Verified Allergy, Unknown, 07/31/16) All Systems: reviewed and negative except above Subjective no events. still has sitter. no fever or chills. labs noted. decreased h/h noted. Objective Last 24 Hour Vital Signs Date Time Temp Pulse Resp B/P Pulse Ox O2 Delivery O2 Flow Rate FiO2 11/16/16 07:28 93 12 98 Mechanical Ventilator 40 11/16/16 07:25 93 15 99 Mechanical Ventilator 40 11/16/16 07:23 88 16 40 11/16/16 07:13 99.2 88 12 111/54 97 Mechanical Ventilator 40 11/16/16 05:14 82 15 40 11/16/16 04:00 87 11/16/16 04:00 97.5 90 18 98/40 Trach Collar 98.0 11/16/16 04:00 40 11/16/16 03:14 90 12 100 Mechanical Ventilator 40 11/16/16 03:05 84 12 40 11/16/16 03:05 84 12 100 Mechanical Ventilator 40 11/16/16 01:16 89 16 40 11/16/16 00:00 98.1 96 18 103/49 100 Mechanical Ventilator 40 11/16/16 00:00 40 11/16/16 00:00 90 11/15/16 23:13 86 14 100 Mechanical Ventilator 40 11/15/16 23:05 85 13 40 11/15/16 23:05 85 13 100 Mechanical Ventilator 40 11/15/16 21:08 85 13 40 11/15/16 20:00 93 11/15/16 20:00 97.0 94 17 107/52 98 Mechanical Ventilator 40 11/15/16 20:00 40 11/15/16 19:17 92 19 100 Mechanical Ventilator 40 11/15/16 19:06 82 22 100 Mechanical Ventilator 40 11/15/16 19:05 82 22 40 11/15/16 16:58 91 22 40 11/15/16 16:00 40 11/15/16 16:00 94 11/15/16 15:54 98.5 88 18 114/54 99 Mechanical Ventilator 40 11/15/16 14:13 79 12 100 Mechanical Ventilator 11/15/16 14:05 75 12 100 Mechanical Ventilator 40 11/15/16 14:05 75 12 40 11/15/16 12:48 82 18 40 11/15/16 12:00 98.5 84 14 94/48 99 Mechanical Ventilator 40 11/15/16 12:00 80 11/15/16 12:00 40 11/15/16 10:51 76 14 100 Mechanical Ventilator 11/15/16 10:44 80 16 40 11/15/16 10:44 80 16 100 Mechanical Ventilator 40 11/15/16 09:07 81 16 40 11/15/16 08:41 99.3 Intake and Output 11/15/16 11/16/16 19:00 07:00 Intake Total 1455 ml 1438 ml Output Total 850 ml 200 ml Balance 605 ml 1238 ml Intake Free Water 150 ml 100 ml IV Total 825 ml 888 ml Tube Feeding 480 ml 400 ml Other 50 ml Output Urine Total 850 ml 200 ml # Bowel Movements 6 4 Laboratory Tests 11/15/16 09:45: Vancomycin Level Trough 7.6 11/16/16 03:20: White Blood Count 9.1, Red Blood Count 2.10L, Hemoglobin 7.1L, Hematocrit 20.1L , Mean Corpuscular Volume 96, Mean Corpuscular Hemoglobin 34.0H, Mean Corpuscular Hemoglobin Concent 35.4, Red Cell Distribution Width 12.8, Platelet Count 294, Mean Platelet Volume 5.7L, Neutrophils (%) (Auto) , Lymphocytes (%) ( Auto) , Monocytes (%) (Auto) , Eosinophils (%) (Auto) , Basophils (%) (Auto) Height (Feet): 5 Height (Inches): 3.00 Weight (Pounds): 116 Objective General Appearance: WD/WN, alert Neck: supple Cardiovascular: regular rhythm Respiratory/Chest: lungs clear, normal breath sounds, no respiratory distress Abdomen: normal bowel sounds, non tender, soft, no organomegaly Edema: no edema noted Arm (L), no edema noted Arm (R), no edema noted Leg (L), no edema noted Leg (R), no edema noted Pedal (L), no edema noted Pedal (R), no edema noted Generalized Neurologic: alert, responsive, normal mood/affect CHRISTINA HAMMOND Nov 16, 2016 08:15
--- NOTE | 2016-11-16 08:18 | Pulmonology Progress Note ---
Assessment/Plan Assessment/Plan IMPRESSION: 1. Respiratory failure, chronic encephalopathy. 2. Left lung nodule metastatic 3. 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 4. Sepsis. 5. Tracheostomy G-tube. 6. Leukocytosis 7. History of Acute renal failure. 8. Lower extremity deep vein thrombosis per history. 9. Chronic encephalopathy PLAN exam overall reviewed care noted and reviewed IV antibiotics as per ID respiratory care Ventilatory care SNF meds supportive care suction as needed no wean prognosis guarded discharge planning for am impression, plan, and exam edited and reviewed in detail care discussed with RN Subjective ROS Limited/Unobtainable: Yes Allergies: Coded Allergies: PENICILLINS (Verified Allergy, Unknown, 07/31/16) Subjective care noted events reviewed agree with dc planning Objective Last 24 Hour Vital Signs Date Time Temp Pulse Resp B/P Pulse Ox O2 Delivery O2 Flow Rate FiO2 11/16/16 07:28 93 12 98 Mechanical Ventilator 40 11/16/16 07:25 93 15 99 Mechanical Ventilator 40 11/16/16 07:23 88 16 40 11/16/16 07:13 99.2 88 12 111/54 97 Mechanical Ventilator 40 11/16/16 05:14 82 15 40 11/16/16 04:00 87 11/16/16 04:00 97.5 90 18 98/40 Trach Collar 98.0 11/16/16 04:00 40 11/16/16 03:14 90 12 100 Mechanical Ventilator 40 11/16/16 03:05 84 12 40 11/16/16 03:05 84 12 100 Mechanical Ventilator 40 11/16/16 01:16 89 16 40 11/16/16 00:00 98.1 96 18 103/49 100 Mechanical Ventilator 40 11/16/16 00:00 40 11/16/16 00:00 90 11/15/16 23:13 86 14 100 Mechanical Ventilator 40 11/15/16 23:05 85 13 40 11/15/16 23:05 85 13 100 Mechanical Ventilator 40 11/15/16 21:08 85 13 40 11/15/16 20:00 93 11/15/16 20:00 97.0 94 17 107/52 98 Mechanical Ventilator 40 11/15/16 20:00 40 11/15/16 19:17 92 19 100 Mechanical Ventilator 40 11/15/16 19:06 82 22 100 Mechanical Ventilator 40 11/15/16 19:05 82 22 40 11/15/16 16:58 91 22 40 11/15/16 16:00 40 11/15/16 16:00 94 11/15/16 15:54 98.5 88 18 114/54 99 Mechanical Ventilator 40 11/15/16 14:13 79 12 100 Mechanical Ventilator 11/15/16 14:05 75 12 100 Mechanical Ventilator 40 11/15/16 14:05 75 12 40 11/15/16 12:48 82 18 40 11/15/16 12:00 98.5 84 14 94/48 99 Mechanical Ventilator 40 11/15/16 12:00 80 11/15/16 12:00 40 11/15/16 10:51 76 14 100 Mechanical Ventilator 11/15/16 10:44 80 16 40 11/15/16 10:44 80 16 100 Mechanical Ventilator 40 11/15/16 09:07 81 16 40 11/15/16 08:41 99.3 Intake and Output 11/15/16 11/16/16 19:00 07:00 Intake Total 1455 ml 1438 ml Output Total 850 ml 200 ml Balance 605 ml 1238 ml Intake Free Water 150 ml 100 ml IV Total 825 ml 888 ml Tube Feeding 480 ml 400 ml Other 50 ml Output Urine Total 850 ml 200 ml # Bowel Movements 6 4 Objective Sp02 EP Interpretation: reviewed, normal General Appearance: normal inspection, well appearing, no apparent distress, Head: normocephalic, atraumatic Eyes: bilateral eye normal inspection ENT: normal ENT inspection, Neck: normal inspection, no meningismus, carotid 2+ trach Respiratory: decreased breath sounds, without wheeze or rhonchi Cardiovascular #1: regular rate, rhythm, no murmur without MRG Gastrointestinal: non tender, soft, non-distended, no guarding, no rebound; GT Musculoskeletal: no CCE Neurologic: weak diffusely; awake; nonfocal Laboratory Tests 11/15/16 09:45: Vancomycin Level Trough 7.6 11/16/16 03:20: White Blood Count 9.1, Red Blood Count 2.10L, Hemoglobin 7.1L, Hematocrit 20.1L , Mean Corpuscular Volume 96, Mean Corpuscular Hemoglobin 34.0H, Mean Corpuscular Hemoglobin Concent 35.4, Red Cell Distribution Width 12.8, Platelet Count 294, Mean Platelet Volume 5.7L, Neutrophils (%) (Auto) , Lymphocytes (%) ( Auto) , Monocytes (%) (Auto) , Eosinophils (%) (Auto) , Basophils (%) (Auto) Current Medications Medications (Trade) Dose Ordered Sig/Josiah Route PRN Reason Start Time Stop Time Status Last Admin Dose Admin Acetaminophen (Tylenol) 650 mg Q4H PRN GT Pain Scale (3-5) 11/12/16 09:00 12/12/16 08:59 11/15/16 08:11 Albuterol/ Ipratropium 3 ml 3 ml Q4HRT HHN 11/12/16 11:00 11/17/16 10:59 11/16/16 07:24 Amitriptyline HCl (Elavil) 10 mg BEDTIME GT 11/12/16 21:00 12/12/16 20:59 11/15/16 21:06 Digoxin 0.125 mg 0.125 mg DAILY GT 11/12/16 10:00 12/12/16 09:59 11/15/16 08:11 Docusate Sodium (Colace) 100 mg DAILY GT 11/12/16 10:00 12/12/16 09:59 11/15/16 08:11 Ertapenem/Sodium Chloride (INVanz/Sodium Chloride) 55 ml @ 110 mls/hr Q24H IVPB 11/13/16 03:00 11/18/16 23:59 11/16/16 03:00 Furosemide (Lasix) 40 mg DAILY GT 11/12/16 10:00 12/12/16 09:59 11/15/16 08:12 Heparin Sodium (Porcine) (Heparin 5000 units/ml) 5,000 units EVERY 12 HOURS SUBQ 11/12/16 10:00 12/12/16 09:59 11/15/16 21:07 Levothyroxine Sodium (Synthroid) 150 mcg ACBREAKFAST GT 11/14/16 06:30 12/14/16 06:29 11/16/16 06:00 Lorazepam (Ativan) 1 mg TIDPRN PRN GT For Anxiety 11/13/16 14:15 11/20/16 14:14 11/14/16 05:25 Midodrine (Pro-Amatine) 5 mg THREE TIMES A DAY GT 11/13/16 13:00 12/13/16 12:59 11/15/16 17:22 Sodium Chloride (Sodium Chloride 1000ml bag) 1,000 ml @ 75 mls/hr [id number] IV 11/12/16 09:30 12/12/16 09:29 11/16/16 06:30 MARCY MAJOR Nov 16, 2016 08:18
[2016-11-16] MEDS: Furosemide 40mg tab GT SCH (08:39)
[2016-11-16] MEDS: Digoxin 0.125mg tab GT SCH (08:39)
[2016-11-16] MEDS: Docusate 100mg/10ml Liq GT SCH (08:39)
[2016-11-16] MEDS: Heparin 5000 units/ml inj SUBQ SCH ×2 (08:41→20:35)
--- NOTE | 2016-11-16 13:47 | Infectious Diseases Prog Note ---
Assessment/Plan Assessment/Plan A 1. UTI s/p Rx 2. leucocytosis resolved 3. respiratory failure 4. HPN 5. tongue cancer 6. Pneumonia with pseudomonas 7. Diarrhea P 1. discontinue Ertapenem 2. start on Levaquin Subjective ROS Limited/Unobtainable: Yes Gastrointestinal/Abdominal: Reports: diarrhea Allergies: Coded Allergies: PENICILLINS (Verified Allergy, Unknown, 07/31/16) Objective Vital Signs Last 24 Hour Vital Signs Date Time Temp Pulse Resp B/P Pulse Ox O2 Delivery O2 Flow Rate FiO2 11/16/16 12:42 100 21 40 11/16/16 12:00 40 11/16/16 11:55 99.3 97 21 116/58 98 Mechanical Ventilator 40 11/16/16 10:44 82 12 97 Mechanical Ventilator 40 11/16/16 10:41 83 15 98 Mechanical Ventilator 40 11/16/16 10:40 84 15 40 11/16/16 08:56 87 24 40 11/16/16 08:39 93 11/16/16 08:00 40 11/16/16 08:00 91 11/16/16 07:28 93 12 98 Mechanical Ventilator 40 11/16/16 07:25 93 15 99 Mechanical Ventilator 40 11/16/16 07:23 88 16 40 11/16/16 07:13 99.2 88 12 111/54 97 Mechanical Ventilator 40 11/16/16 05:14 82 15 40 11/16/16 04:00 87 11/16/16 04:00 97.5 90 18 98/40 Trach Collar 98.0 11/16/16 04:00 40 11/16/16 03:14 90 12 100 Mechanical Ventilator 40 11/16/16 03:05 84 12 40 11/16/16 03:05 84 12 100 Mechanical Ventilator 40 11/16/16 01:16 89 16 40 11/16/16 00:00 98.1 96 18 103/49 100 Mechanical Ventilator 40 11/16/16 00:00 40 11/16/16 00:00 90 11/15/16 23:13 86 14 100 Mechanical Ventilator 40 11/15/16 23:05 85 13 40 11/15/16 23:05 85 13 100 Mechanical Ventilator 40 11/15/16 21:08 85 13 40 11/15/16 20:00 93 11/15/16 20:00 97.0 94 17 107/52 98 Mechanical Ventilator 40 11/15/16 20:00 40 11/15/16 19:17 92 19 100 Mechanical Ventilator 40 11/15/16 19:06 82 22 100 Mechanical Ventilator 40 11/15/16 19:05 82 22 40 11/15/16 16:58 91 22 40 11/15/16 16:00 40 11/15/16 16:00 94 11/15/16 15:54 98.5 88 18 114/54 99 Mechanical Ventilator 40 11/15/16 14:13 79 12 100 Mechanical Ventilator 11/15/16 14:05 75 12 100 Mechanical Ventilator 40 11/15/16 14:05 75 12 40 Height (Feet): 5 Height (Inches): 3.00 Weight (Pounds): 116 General Appearance: no acute distress HEENT: status post trach Respiratory/Chest: other - on ventilator, few rhonchi Cardiovascular: normal rate Abdomen: soft, non tender, other - GT feeding Extremities: no edema Neurologic/Psychiatric: alert, responsive Laboratory Tests Test 11/16/16 03:20 White Blood Count 9.1 K/UL (4.8-10.8) Red Blood Count 2.10 M/UL (4.20-5.40) L Hemoglobin 7.1 G/DL (12.0-16.0) L Hematocrit 20.1 % (37.0-47.0) L Mean Corpuscular Volume 96 FL (80-99) Mean Corpuscular Hemoglobin 34.0 PG (27.0-31.0) H Mean Corpuscular Hemoglobin Concent 35.4 G/DL (32.0-36.0) Red Cell Distribution Width 12.8 % (11.6-14.8) Platelet Count 294 K/UL (150-450) Mean Platelet Volume 5.7 FL (6.5-10.1) L Neutrophils (%) (Auto) % (45.0-75.0) Lymphocytes (%) (Auto) % (20.0-45.0) Monocytes (%) (Auto) % (1.0-10.0) Eosinophils (%) (Auto) % (0.0-3.0) Basophils (%) (Auto) % (0.0-2.0) Current Medications Medications (Trade) Dose Ordered Sig/Josiah Route PRN Reason Start Time Stop Time Status Last Admin Dose Admin Acetaminophen (Tylenol) 650 mg Q4H PRN GT Pain Scale (3-5) 11/12/16 09:00 12/12/16 08:59 11/15/16 08:11 Albuterol/ Ipratropium 3 ml 3 ml Q4HRT HHN 11/12/16 11:00 11/17/16 10:59 11/16/16 10:39 Amitriptyline HCl (Elavil) 10 mg BEDTIME GT 11/12/16 21:00 12/12/16 20:59 11/15/16 21:06 Digoxin 0.125 mg 0.125 mg DAILY GT 11/12/16 10:00 12/12/16 09:59 11/16/16 08:39 Docusate Sodium (Colace) 100 mg DAILY GT 11/12/16 10:00 12/12/16 09:59 11/15/16 08:11 Ertapenem/Sodium Chloride (INVanz/Sodium Chloride) 55 ml @ 110 mls/hr Q24H IVPB 11/13/16 03:00 11/18/16 23:59 11/16/16 03:00 Furosemide (Lasix) 40 mg DAILY GT 11/12/16 10:00 12/12/16 09:59 11/16/16 08:39 Heparin Sodium (Porcine) (Heparin 5000 units/ml) 5,000 units EVERY 12 HOURS SUBQ 11/12/16 10:00 12/12/16 09:59 11/16/16 08:41 Levothyroxine Sodium (Synthroid) 150 mcg ACBREAKFAST GT 11/14/16 06:30 12/14/16 06:29 11/16/16 06:00 Lorazepam (Ativan) 1 mg TIDPRN PRN GT For Anxiety 11/13/16 14:15 11/20/16 14:14 11/14/16 05:25 Midodrine (Pro-Amatine) 5 mg THREE TIMES A DAY GT 11/13/16 13:00 12/13/16 12:59 11/16/16 13:35 Sodium Chloride (Sodium Chloride 1000ml bag) 1,000 ml @ 75 mls/hr [id number] IV 11/12/16 09:30 12/12/16 09:29 11/16/16 06:30 JENNIFER MCKEE 15, 2017 13:47
--- NOTE | 2016-11-16 20:30 | Progress Note ---
DATE: 11/16/2016 CARDIOLOGY PROGRESS NOTE SUBJECTIVE: The patient is without any respiratory distress on ventilator support. Secretions have decreased. Monitored sinus tachycardia. OBJECTIVE: VITAL SIGNS: Blood pressure 111/54, pulse 88, respirations 12, and temperature 99.2 degrees. LUNGS: Coarse breath sounds. Few rhonchi. HEART: Regular rhythm and rate. Normal S1 and S2. ABDOMEN: Soft. G-tube is intact. EXTREMITIES: Without edema. LABORATORY DATA: White count 9.1 and hemoglobin 7.1. IMPRESSION: 1. Respiratory failure recovered. 2. Shock due to sepsis. 3. Anemia multifactorial. 4. Secondary sinus tachycardia. 5. Metastatic head and neck carcinoma. 6. Chronic hypotensive trend at baseline. 7. Hypothyroidism. 8. Severe protein-calorie malnutrition. 9. Chronic diastolic congestive heart failure. PLAN: 1. Respiratory/ventilator support. 2. Packed red blood cell transfusion. 3. Thyroid replacement. 4. Diuresis x1 between transfusion. 5. Antimicrobials per Infectious Disease professional benefits sales consultant. 6. Maintain midodrine at this time. 7. Consider taper off if stable rising blood pressure at assisted facility. Chi Bhatti M.D. DR: MADAN JOB#: [id number] CC:
[2016-11-17] MEDS: DuoNeb 0.5-3(2.5)mg/3ml neb HHN SCH ×2 (02:58→07:07)
[2016-11-17 04:00] VITALS: BP 103/54
--- NOTE | 2016-11-17 08:11 | General Progress Note ---
Assessment/Plan Problem List: (1) Prerenal azotemia ICD Codes: R79.89 - Other specified abnormal findings of blood chemistry SNOMED: 076922650 (2) Anemia, chronic disease ICD Codes: D63.8 - Anemia in other chronic diseases classified elsewhere SNOMED: 172148183 (3) Sepsis ICD Codes: A41.9 - Sepsis, unspecified organism SNOMED: 61966106 Qualifiers: Qualified Codes: A41.9 - Sepsis, unspecified organism (4) UTI (urinary tract infection) ICD Codes: N39.0 - Urinary tract infection, site not specified SNOMED: 45482602 Qualifiers: Qualified Codes: N30.00 - Acute cystitis without hematuria (5) Tongue malignant neoplasm ICD Codes: C02.9 - Malignant neoplasm of tongue, unspecified SNOMED: 465767724 (6) Respiratory failure ICD Codes: J96.90 - Respiratory failure, unspecified, unspecified whether with hypoxia or hypercapnia SNOMED: 397559844 Qualifiers: Qualified Codes: J96.10 - Chronic respiratory failure, unspecified whether with hypoxia or hypercapnia Status: stable, progressing Assessment/Plan abx vent resp care gt feeds dc planning home with vent when stable. child protective services social worker and case management assisting Subjective ROS Limited/Unobtainable: No Constitutional: Reports: malaise, weakness HEENT: Reports: no symptoms Cardiovascular: Reports: no symptoms Respiratory: Reports: cough, sputum Gastrointestinal/Abdominal: Reports: difficulty swallowing Genitourinary: Reports: no symptoms Neurologic/Psychiatric: Reports: no symptoms Endocrine: Reports: no symptoms Hematologic/Lymphatic: Reports: anemia Allergies: Coded Allergies: PENICILLINS (Verified Allergy, Unknown, 07/31/16) All Systems: reviewed and negative except above Subjective s/p 2 units prbcs. no bleeding. no events. still has sitter. no fever or chills. subacute unable to take pt back as no more medicare days. Objective Last 24 Hour Vital Signs Date Time Temp Pulse Resp B/P Pulse Ox O2 Delivery O2 Flow Rate FiO2 11/17/16 07:18 89 14 100 Mechanical Ventilator 40 11/17/16 07:09 88 14 98 Mechanical Ventilator 40 11/17/16 07:07 85 14 40 11/17/16 04:52 85 14 40 11/17/16 04:00 89 11/17/16 04:00 98.4 89 18 103/54 99 11/17/16 04:00 40 11/17/16 03:06 91 14 100 Mechanical Ventilator 40 11/17/16 02:58 85 14 98 Mechanical Ventilator 40 11/17/16 02:57 85 14 40 11/17/16 01:16 85 12 40 11/17/16 00:00 40 11/17/16 00:00 110 11/16/16 23:51 97.7 110 26 126/61 99 11/16/16 23:15 89 15 100 Mechanical Ventilator 40 11/16/16 23:06 86 15 98 Mechanical Ventilator 40 11/16/16 23:05 86 15 40 11/16/16 21:01 84 12 40 11/16/16 20:00 92 11/16/16 20:00 40 11/16/16 19:55 97.9 93 16 128/56 97 11/16/16 18:42 98 14 100 Mechanical Ventilator 40 11/16/16 18:35 90 17 40 11/16/16 18:34 90 17 100 Mechanical Ventilator 40 11/16/16 16:52 85 18 40 11/16/16 16:00 87 11/16/16 16:00 40 11/16/16 15:33 98.4 90 16 108/48 99 Mechanical Ventilator 40 11/16/16 14:51 84 12 100 Mechanical Ventilator 40 11/16/16 14:48 89 16 100 Mechanical Ventilator 40 11/16/16 14:45 89 16 40 11/16/16 12:42 100 21 40 11/16/16 12:00 91 11/16/16 12:00 40 11/16/16 11:55 99.3 97 21 116/58 98 Mechanical Ventilator 40 11/16/16 10:44 82 12 97 Mechanical Ventilator 40 11/16/16 10:41 83 15 98 Mechanical Ventilator 40 11/16/16 10:40 84 15 40 11/16/16 08:56 87 24 40 11/16/16 08:39 93 Intake and Output 11/16/16 11/17/16 19:00 07:00 Intake Total 1480 ml 1362 ml Output Total 3000 ml 1400 ml Balance -1520 ml -38 ml Intake Free Water 100 ml IV Total 675 ml 512 ml Tube Feeding 480 ml 400 ml Blood Product 250 ml 290 ml Other 75 ml 60 ml Output Urine Total 3000 ml 1400 ml # Bowel Movements 4 Height (Feet): 5 Height (Inches): 3.00 Weight (Pounds): 116 Objective General Appearance: WD/WN, alert Neck: supple Cardiovascular: regular rhythm Respiratory/Chest: lungs clear, normal breath sounds, no respiratory distress Abdomen: normal bowel sounds, non tender, soft, no organomegaly Edema: no edema noted Arm (L), no edema noted Arm (R), no edema noted Leg (L), no edema noted Leg (R), no edema noted Pedal (L), no edema noted Pedal (R), no edema noted Generalized Neurologic: alert, responsive, normal mood/affect CHRISTINA HAMMOND Nov 17, 2016 08:11
[2016-11-17 08:37] VITALS: BP 106/57
--- NOTE | 2016-11-17 08:41 | Pulmonology Progress Note ---
Assessment/Plan Assessment/Plan IMPRESSION: 1. Respiratory failure, chronic encephalopathy. 2. Left lung nodule metastatic 3. 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 4. Sepsis. 5. Tracheostomy G-tube. 6. Leukocytosis 7. History of Acute renal failure. 8. Lower extremity deep vein thrombosis per history. 9. Chronic encephalopathy PLAN exam overall reviewed care noted and reviewed IV antibiotics as per ID respiratory care Ventilatory care and management SNF meds supportive care as outlined suction as needed no wean prognosis guarded discharge planning for am impression, plan, and exam edited and reviewed in detail care discussed with RN Subjective Allergies: Coded Allergies: PENICILLINS (Verified Allergy, Unknown, 07/31/16) Subjective care noted events reviewed agree with dc planning today Objective Last 24 Hour Vital Signs Date Time Temp Pulse Resp B/P Pulse Ox O2 Delivery O2 Flow Rate FiO2 11/17/16 08:37 97.5 87 16 106/57 98 Mechanical Ventilator 11/17/16 08:12 40 11/17/16 07:18 89 14 100 Mechanical Ventilator 40 11/17/16 07:09 88 14 98 Mechanical Ventilator 40 11/17/16 07:07 85 14 40 11/17/16 04:52 85 14 40 11/17/16 04:00 89 11/17/16 04:00 98.4 89 18 103/54 99 11/17/16 04:00 40 11/17/16 03:06 91 14 100 Mechanical Ventilator 40 11/17/16 02:58 85 14 98 Mechanical Ventilator 40 11/17/16 02:57 85 14 40 11/17/16 01:16 85 12 40 11/17/16 00:00 40 11/17/16 00:00 110 11/16/16 23:51 97.7 110 26 126/61 99 11/16/16 23:15 89 15 100 Mechanical Ventilator 40 11/16/16 23:06 86 15 98 Mechanical Ventilator 40 11/16/16 23:05 86 15 40 11/16/16 21:01 84 12 40 11/16/16 20:00 92 11/16/16 20:00 40 11/16/16 19:55 97.9 93 16 128/56 97 11/16/16 18:42 98 14 100 Mechanical Ventilator 40 11/16/16 18:35 90 17 40 11/16/16 18:34 90 17 100 Mechanical Ventilator 40 11/16/16 16:52 85 18 40 11/16/16 16:00 87 11/16/16 16:00 40 11/16/16 15:33 98.4 90 16 108/48 99 Mechanical Ventilator 40 11/16/16 14:51 84 12 100 Mechanical Ventilator 40 11/16/16 14:48 89 16 100 Mechanical Ventilator 40 11/16/16 14:45 89 16 40 11/16/16 12:42 100 21 40 11/16/16 12:00 91 11/16/16 12:00 40 11/16/16 11:55 99.3 97 21 116/58 98 Mechanical Ventilator 40 11/16/16 10:44 82 12 97 Mechanical Ventilator 40 11/16/16 10:41 83 15 98 Mechanical Ventilator 40 11/16/16 10:40 84 15 40 11/16/16 08:56 87 24 40 Intake and Output 11/16/16 11/17/16 19:00 07:00 Intake Total 1480 ml 1362 ml Output Total 3000 ml 1400 ml Balance -1520 ml -38 ml Intake Free Water 100 ml IV Total 675 ml 512 ml Tube Feeding 480 ml 400 ml Blood Product 250 ml 290 ml Other 75 ml 60 ml Output Urine Total 3000 ml 1400 ml # Bowel Movements 4 Objective Sp02 EP Interpretation: reviewed, normal General Appearance: normal inspection, well appearing, no apparent distress, Head: normocephalic, atraumatic Eyes: bilateral eye normal inspection ENT: normal ENT inspection, Neck: normal inspection, no meningismus, carotid 2+ trach Respiratory: decreased breath sounds, without wheeze or rhonchi Cardiovascular #1: regular rate, rhythm, no murmur without MRG Gastrointestinal: non tender, soft, non-distended, no guarding, no rebound; GT Musculoskeletal: no CCE Neurologic: weak diffusely; awake; nonfocal reviewed and edited Current Medications Medications (Trade) Dose Ordered Sig/Josiah Route PRN Reason Start Time Stop Time Status Last Admin Dose Admin Acetaminophen (Tylenol) 650 mg Q4H PRN GT Pain Scale (3-5) 11/12/16 09:00 12/12/16 08:59 11/15/16 08:11 Albuterol/ Ipratropium (DuoNeb 0.5-3(2.5)mg/3ml) 3 ml Q4HRT HHN 11/12/16 11:00 11/17/16 10:59 11/17/16 07:07 Amitriptyline HCl (Elavil) 10 mg BEDTIME GT 11/12/16 21:00 12/12/16 20:59 11/16/16 20:34 Digoxin (Lanoxin) 0.125 mg DAILY GT 11/12/16 10:00 12/12/16 09:59 11/16/16 08:39 Docusate Sodium (Colace) 100 mg DAILY GT 11/12/16 10:00 12/12/16 09:59 11/15/16 08:11 Furosemide (Lasix) 40 mg DAILY GT 11/12/16 10:00 12/12/16 09:59 11/16/16 08:39 Heparin Sodium (Porcine) (Heparin 5000 units/ml) 5,000 units EVERY 12 HOURS SUBQ 11/12/16 10:00 12/12/16 09:59 11/16/16 20:35 Levofloxacin (Levaquin) 750 mg Q48H GT 11/16/16 14:00 11/23/16 13:59 11/16/16 14:31 Levothyroxine Sodium (Synthroid) 150 mcg ACBREAKFAST GT 11/14/16 06:30 12/14/16 06:29 11/17/16 06:00 Lorazepam (Ativan) 1 mg TIDPRN PRN GT For Anxiety 11/13/16 14:15 11/20/16 14:14 11/14/16 05:25 Midodrine (Pro-Amatine) 5 mg THREE TIMES A DAY GT 11/13/16 13:00 12/13/16 12:59 11/16/16 17:11 MARCY MAJOR Nov 17, 2016 08:41
[2016-11-17] MEDS: Furosemide 40mg tab GT SCH (09:14)
[2016-11-17] MEDS: Digoxin 0.125mg tab GT SCH (09:14)
[2016-11-17] MEDS: Docusate 100mg/10ml Liq GT SCH (09:15)
[2016-11-17] MEDS: Heparin 5000 units/ml inj SUBQ SCH ×2 (09:17→20:35)
--- NOTE | 2016-11-17 10:57 | Infectious Diseases Prog Note ---
Assessment/Plan Assessment/Plan antibiotics : levoquin A 1. UTi 2. leucocytosis 3. respiratory failure 4. HTN 5. tongue cancer 6. pseudomonas pneumonia P 1. continue levoquin 8 more days 2. will follow up cultures Subjective ROS Limited/Unobtainable: Yes Allergies: Coded Allergies: PENICILLINS (Verified Allergy, Unknown, 07/31/16) Objective Vital Signs Last 24 Hour Vital Signs Date Time Temp Pulse Resp B/P Pulse Ox O2 Delivery O2 Flow Rate FiO2 11/17/16 09:14 87 11/17/16 09:12 82 14 40 11/17/16 08:37 97.5 87 16 106/57 98 Mechanical Ventilator 11/17/16 08:12 40 11/17/16 07:18 89 14 100 Mechanical Ventilator 40 11/17/16 07:09 88 14 98 Mechanical Ventilator 40 11/17/16 07:07 85 14 40 11/17/16 04:52 85 14 40 11/17/16 04:00 89 11/17/16 04:00 98.4 89 18 103/54 99 11/17/16 04:00 40 11/17/16 03:06 91 14 100 Mechanical Ventilator 40 11/17/16 02:58 85 14 98 Mechanical Ventilator 40 11/17/16 02:57 85 14 40 11/17/16 01:16 85 12 40 11/17/16 00:00 40 11/17/16 00:00 110 11/16/16 23:51 97.7 110 26 126/61 99 11/16/16 23:15 89 15 100 Mechanical Ventilator 40 11/16/16 23:06 86 15 98 Mechanical Ventilator 40 11/16/16 23:05 86 15 40 11/16/16 21:01 84 12 40 11/16/16 20:00 92 11/16/16 20:00 40 11/16/16 19:55 97.9 93 16 128/56 97 11/16/16 18:42 98 14 100 Mechanical Ventilator 40 11/16/16 18:35 90 17 40 11/16/16 18:34 90 17 100 Mechanical Ventilator 40 11/16/16 16:52 85 18 40 11/16/16 16:00 87 11/16/16 16:00 40 11/16/16 15:33 98.4 90 16 108/48 99 Mechanical Ventilator 40 11/16/16 14:51 84 12 100 Mechanical Ventilator 40 11/16/16 14:48 89 16 100 Mechanical Ventilator 40 11/16/16 14:45 89 16 40 11/16/16 12:42 100 21 40 11/16/16 12:00 91 11/16/16 12:00 40 11/16/16 11:55 99.3 97 21 116/58 98 Mechanical Ventilator 40 Height (Feet): 5 Height (Inches): 3.00 Weight (Pounds): 116 HEENT: status post trach Respiratory/Chest: lungs clear Cardiovascular: normal rate, regular rhythm, no gallop/murmur Abdomen: soft, non tender, other - GT Extremities: no edema MARA BLOCK Nov 17, 2016 10:57
[2016-11-17 12:35] VITALS: BP 93/54
[2016-11-17 16:46] VITALS: BP 104/48
[2016-11-17 18:14] LABS: BASOPHILS % (AUTO) 0.6 % (0.0-2.0); EOSINOPHILS % (AUTO) 3.7 % (0.0-3.0); LYMPHOCYTES % (AUTO) 14.7 % (20.0-45.0); MEAN CORPUSCULAR HEMOGLOBIN 31.3 PG (27.0-31.0); MEAN CORPUSCULAR HGB CONC 33.3 G/DL (32.0-36.0); MEAN CORPUSCULAR VOLUME 94 FL (80-99); MEAN PLATELET VOLUME 5.1 FL (6.5-10.1); MONOCYTES % (AUTO) 7.2 % (1.0-10.0); NEUTROPHILS % (AUTO) 73.7 % (45.0-75.0); PLATELET COUNT 303 K/UL (150-450); RED BLOOD COUNT 3.59 M/UL (4.20-5.40); RED CELL DISTRIBUTION WIDTH 13.2 % (11.6-14.8); WHITE BLOOD COUNT 10.3 K/UL (4.8-10.8)
[2016-11-17 19:05] LABS: ANION GAP 11 (5-15); CALCIUM 9.1 mg/dL (8.6-10.2); CARBON DIOXIDE 34 mEQ/L (20-30); CHLORIDE 92 mEQ/L (98-107); CREATININE 0.8 mg/dL (0.5-0.9); HEMOLYSIS 4; POTASSIUM 3.9 mEQ/L (3.4-4.9); SODIUM 137 mEQ/L (135-145)
[2016-11-17 19:49] VITALS: BP 102/49
[2016-11-18] VITALS: BP 126/86
[2016-11-18 04:00] VITALS: BP 127/68
[2016-11-18 08:00] VITALS: BP 111/58
--- NOTE | 2016-11-18 08:21 | General Progress Note ---
Assessment/Plan Problem List: (1) Prerenal azotemia ICD Codes: R79.89 - Other specified abnormal findings of blood chemistry SNOMED: 454463210 (2) Anemia, chronic disease ICD Codes: D63.8 - Anemia in other chronic diseases classified elsewhere SNOMED: 185057314 (3) Sepsis ICD Codes: A41.9 - Sepsis, unspecified organism SNOMED: 41690106 Qualifiers: Qualified Codes: A41.9 - Sepsis, unspecified organism (4) UTI (urinary tract infection) ICD Codes: N39.0 - Urinary tract infection, site not specified SNOMED: 82149923 Qualifiers: Qualified Codes: N30.00 - Acute cystitis without hematuria (5) Tongue malignant neoplasm ICD Codes: C02.9 - Malignant neoplasm of tongue, unspecified SNOMED: 414162835 (6) Respiratory failure ICD Codes: J96.90 - Respiratory failure, unspecified, unspecified whether with hypoxia or hypercapnia SNOMED: 072753732 Qualifiers: Qualified Codes: J96.10 - Chronic respiratory failure, unspecified whether with hypoxia or hypercapnia Assessment/Plan abx vent resp care gt feeds dc planning home with vent when stable. family coming in for training social studies teacher and case management assisting Subjective ROS Limited/Unobtainable: No Constitutional: Reports: malaise, weakness HEENT: Reports: no symptoms Cardiovascular: Reports: no symptoms Respiratory: Reports: cough, shortness of breath, sputum Gastrointestinal/Abdominal: Reports: difficulty swallowing Genitourinary: Reports: no symptoms Neurologic/Psychiatric: Reports: no symptoms Endocrine: Reports: no symptoms Hematologic/Lymphatic: Reports: anemia Allergies: Coded Allergies: PENICILLINS (Verified Allergy, Unknown, 07/31/16) All Systems: reviewed and negative except above Subjective no events. no bleeding noted. on the vent. comfortable. no fever or chills. tolerating feeds Objective Last 24 Hour Vital Signs Date Time Temp Pulse Resp B/P Pulse Ox O2 Delivery O2 Flow Rate FiO2 11/18/16 06:44 75 14 40 11/18/16 05:03 69 14 40 11/18/16 04:00 40 11/18/16 04:00 98.1 79 13 127/68 98 11/18/16 04:00 69 11/18/16 03:20 78 14 40 11/18/16 01:18 67 15 40 11/18/16 00:00 98.2 79 12 126/86 97 11/18/16 00:00 81 11/18/16 00:00 40 11/17/16 22:55 75 14 40 11/17/16 21:24 73 12 40 11/17/16 20:00 92 11/17/16 20:00 40 11/17/16 19:49 97.7 81 13 102/49 100 11/17/16 19:08 80 16 40 11/17/16 17:03 81 14 40 11/17/16 16:46 97.9 73 16 104/48 99 Mechanical Ventilator 11/17/16 16:00 40 11/17/16 14:51 88 14 40 11/17/16 12:52 82 14 40 11/17/16 12:35 97.2 81 16 93/54 96 Mechanical Ventilator 11/17/16 12:12 40 11/17/16 12:00 77 11/17/16 11:22 80 14 40 11/17/16 09:14 87 11/17/16 09:12 82 14 40 11/17/16 08:37 97.5 87 16 106/57 98 Mechanical Ventilator Intake and Output 11/17/16 11/18/16 19:00 07:00 Intake Total 820 ml 500 ml Output Total 1702 ml 450 ml Balance -882 ml 50 ml Intake Free Water 100 ml 100 ml Tube Feeding 480 ml 400 ml Other 240 ml Output Urine Total 1700 ml 450 ml Stool Total 2 ml # Bowel Movements 2 Laboratory Tests 11/17/16 17:57: White Blood Count 10.3, Red Blood Count 3.59L, Hemoglobin 11.2L, Hematocrit 33.7L, Mean Corpuscular Volume 94, Mean Corpuscular Hemoglobin 31.3H, Mean Corpuscular Hemoglobin Concent 33.3, Red Cell Distribution Width 13.2, Platelet Count 303, Mean Platelet Volume 5.1L, Neutrophils (%) (Auto) 73.7, Lymphocytes ( %) (Auto) 14.7L, Monocytes (%) (Auto) 7.2, Eosinophils (%) (Auto) 3.7H, Basophils (%) (Auto) 0.6, Sodium Level 137, Potassium Level 3.9, Chloride Level 92L, Carbon Dioxide Level 34H, Anion Gap 11, Blood Urea Nitrogen 13, Creatinine 0.8, Estimat Glomerular Filtration Rate , Glucose Level 112H, Calcium Level 9.1 Height (Feet): 5 Height (Inches): 3.00 Weight (Pounds): 116 General Appearance: WD/WN, alert Neck: supple Cardiovascular: regular rhythm Respiratory/Chest: lungs clear, normal breath sounds, no respiratory distress, no accessory muscle use Abdomen: normal bowel sounds, non tender, soft, no organomegaly Edema: no edema noted Arm (L), no edema noted Arm (R), no edema noted Leg (L), no edema noted Leg (R), no edema noted Pedal (L), no edema noted Pedal (R), no edema noted Generalized Neurologic: car changer II-XII grossly normal, alert, responsive, normal mood/affect Skin: normal pigmentation Objective General Appearance: WD/WN, alert Neck: supple Cardiovascular: regular rhythm Respiratory/Chest: lungs clear, normal breath sounds, no respiratory distress Abdomen: normal bowel sounds, non tender, soft, no organomegaly Edema: no edema noted Arm (L), no edema noted Arm (R), no edema noted Leg (L), no edema noted Leg (R), no edema noted Pedal (L), no edema noted Pedal (R), no edema noted Generalized Neurologic: alert, responsive, normal mood/affect CHRISTINA HAMMOND Nov 18, 2016 08:21
--- NOTE | 2016-11-18 08:25 | Pulmonology Progress Note ---
Assessment/Plan Assessment/Plan IMPRESSION: 1. Respiratory failure, chronic encephalopathy. 2. Left lung nodule metastatic 3. 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 4. Sepsis. 5. Tracheostomy G-tube. 6. Leukocytosis 7. History of Acute renal failure. 8. Lower extremity deep vein thrombosis per history. 9. Chronic encephalopathy PLAN exam overall reviewed care noted and reviewed IV antibiotics as per ID respiratory care Ventilatory care and management as is SNF meds supportive care as outlined monitor secretions no wean prognosis guarded discharge planning cleared by pulm impression, plan, and exam edited and reviewed in detail care discussed with RN Subjective ROS Limited/Unobtainable: Yes Allergies: Coded Allergies: PENICILLINS (Verified Allergy, Unknown, 07/31/16) Subjective care noted events reviewed overnight events noted Objective Last 24 Hour Vital Signs Date Time Temp Pulse Resp B/P Pulse Ox O2 Delivery O2 Flow Rate FiO2 11/18/16 06:44 75 14 40 11/18/16 05:03 69 14 40 11/18/16 04:00 40 11/18/16 04:00 98.1 79 13 127/68 98 11/18/16 04:00 69 11/18/16 03:20 78 14 40 11/18/16 01:18 67 15 40 11/18/16 00:00 98.2 79 12 126/86 97 11/18/16 00:00 81 11/18/16 00:00 40 11/17/16 22:55 75 14 40 11/17/16 21:24 73 12 40 11/17/16 20:00 92 11/17/16 20:00 40 11/17/16 19:49 97.7 81 13 102/49 100 11/17/16 19:08 80 16 40 11/17/16 17:03 81 14 40 11/17/16 16:46 97.9 73 16 104/48 99 Mechanical Ventilator 11/17/16 16:00 40 11/17/16 14:51 88 14 40 11/17/16 12:52 82 14 40 11/17/16 12:35 97.2 81 16 93/54 96 Mechanical Ventilator 11/17/16 12:12 40 11/17/16 12:00 77 11/17/16 11:22 80 14 40 11/17/16 09:14 87 11/17/16 09:12 82 14 40 11/17/16 08:37 97.5 87 16 106/57 98 Mechanical Ventilator Intake and Output 11/17/16 11/18/16 19:00 07:00 Intake Total 820 ml 500 ml Output Total 1702 ml 450 ml Balance -882 ml 50 ml Intake Free Water 100 ml 100 ml Tube Feeding 480 ml 400 ml Other 240 ml Output Urine Total 1700 ml 450 ml Stool Total 2 ml # Bowel Movements 2 Objective Sp02 EP Interpretation: reviewed, normal General Appearance: normal inspection, well appearing, no apparent distress, Head: normocephalic, atraumatic Eyes: bilateral eye normal inspection ENT: normal ENT inspection, Neck: normal inspection, no meningismus, carotid 2+ trach Respiratory: decreased breath sounds, without wheeze or rhonchi Cardiovascular #1: regular rate, rhythm, no murmur without MRG Gastrointestinal: non tender, soft, non-distended, no guarding, no rebound; GT Musculoskeletal: no CCE Neurologic: weak diffusely; awake; nonfocal reviewed and edited Laboratory Tests 11/17/16 17:57: White Blood Count 10.3, Red Blood Count 3.59L, Hemoglobin 11.2L, Hematocrit 33.7L, Mean Corpuscular Volume 94, Mean Corpuscular Hemoglobin 31.3H, Mean Corpuscular Hemoglobin Concent 33.3, Red Cell Distribution Width 13.2, Platelet Count 303, Mean Platelet Volume 5.1L, Neutrophils (%) (Auto) 73.7, Lymphocytes ( %) (Auto) 14.7L, Monocytes (%) (Auto) 7.2, Eosinophils (%) (Auto) 3.7H, Basophils (%) (Auto) 0.6, Sodium Level 137, Potassium Level 3.9, Chloride Level 92L, Carbon Dioxide Level 34H, Anion Gap 11, Blood Urea Nitrogen 13, Creatinine 0.8, Estimat Glomerular Filtration Rate , Glucose Level 112H, Calcium Level 9.1 Current Medications Medications (Trade) Dose Ordered Sig/Josiah Route PRN Reason Start Time Stop Time Status Last Admin Dose Admin Acetaminophen (Tylenol) 650 mg Q4H PRN GT Pain Scale (3-5) 11/12/16 09:00 12/12/16 08:59 11/15/16 08:11 Amitriptyline HCl (Elavil) 10 mg BEDTIME GT 11/12/16 21:00 12/12/16 20:59 11/17/16 20:35 Digoxin (Lanoxin) 0.125 mg DAILY GT 11/12/16 10:00 12/12/16 09:59 11/17/16 09:14 Docusate Sodium (Colace) 100 mg DAILY GT 11/12/16 10:00 12/12/16 09:59 11/17/16 09:15 Furosemide (Lasix) 40 mg DAILY GT 11/12/16 10:00 12/12/16 09:59 11/17/16 09:14 Heparin Sodium (Porcine) (Heparin 5000 units/ml) 5,000 units EVERY 12 HOURS SUBQ 11/12/16 10:00 12/12/16 09:59 11/17/16 20:35 Levofloxacin (Levaquin) 750 mg Q48H GT 11/16/16 14:00 11/23/16 13:59 11/16/16 14:31 Levothyroxine Sodium (Synthroid) 150 mcg ACBREAKFAST GT 11/14/16 06:30 12/14/16 06:29 11/18/16 06:09 Lorazepam (Ativan) 1 mg TIDPRN PRN GT For Anxiety 11/13/16 14:15 11/20/16 14:14 11/14/16 05:25 Midodrine (Pro-Amatine) 5 mg THREE TIMES A DAY GT 11/13/16 13:00 12/13/16 12:59 11/17/16 17:30 MARCY MAJOR Nov 18, 2016 08:25
[2016-11-18] MEDS ORDERED: NS 275ml ONE ×2 (09:33→09:37)
[2016-11-18] MEDS ORDERED: Tubing Blood Filter IV ONE (09:37)
[2016-11-18] MEDS: Heparin 5000 units/ml inj SUBQ SCH ×2 (10:22→20:44)
[2016-11-18] MEDS: Docusate 100mg/10ml Liq GT SCH (10:23)
[2016-11-18] MEDS: Digoxin 0.125mg tab GT SCH (10:23)
[2016-11-18] MEDS: Furosemide 40mg tab GT SCH (10:24)
[2016-11-18 12:00] VITALS: BP 112/56
[2016-11-18 16:00] VITALS: BP 112/53
[2016-11-18 20:00] VITALS: BP 117/65
[2016-11-19] VITALS: BP 109/60
[2016-11-19 04:00] VITALS: BP 105/60
--- NOTE | 2016-11-19 07:16 | Pulmonology Progress Note ---
Assessment/Plan Assessment/Plan IMPRESSION: 1. Respiratory failure, chronic encephalopathy. 2. Left lung nodule metastatic 3. 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 4. Sepsis. 5. Tracheostomy G-tube. 6. Leukocytosis 7. History of Acute renal failure. 8. Lower extremity deep vein thrombosis per history. 9. Chronic encephalopathy PLAN exam overall reviewed and stblae care noted and reviewed antibiotics as per ID respiratory care Ventilatory same for now SNF meds supportive care as outlined monitor secretions no wean prognosis guarded nursing noted reviewed discharge planning cleared by pulm impression, plan, and exam edited and reviewed in detail care discussed with RN Subjective ROS Limited/Unobtainable: Yes Allergies: Coded Allergies: PENICILLINS (Verified Allergy, Unknown, 07/31/16) Subjective care noted events reviewed overnight events noted and reconciled Objective Last 24 Hour Vital Signs Date Time Temp Pulse Resp B/P Pulse Ox O2 Delivery O2 Flow Rate FiO2 11/19/16 05:20 82 16 40 11/19/16 04:00 40 11/19/16 04:00 98.2 76 16 105/60 97 Mechanical Ventilator 98.0 40 11/19/16 04:00 76 11/19/16 02:55 77 15 40 11/19/16 01:19 74 15 40 11/19/16 00:00 98.2 82 17 109/60 97 Mechanical Ventilator 98.0 40 11/19/16 00:00 40 11/19/16 00:00 78 11/18/16 22:46 86 17 40 11/18/16 20:00 75 11/18/16 20:00 98.2 76 16 117/65 97 Mechanical Ventilator 98.0 40 11/18/16 20:00 40 11/18/16 18:44 76 16 40 11/18/16 17:13 70 13 40 11/18/16 16:00 67 11/18/16 16:00 40 11/18/16 16:00 98.2 74 16 112/53 97 Mechanical Ventilator 40 11/18/16 14:59 79 18 40 11/18/16 12:48 71 15 40 11/18/16 12:00 40 11/18/16 12:00 98.2 64 14 112/56 98 Mechanical Ventilator 40 11/18/16 12:00 67 11/18/16 11:25 72 12 40 11/18/16 10:23 81 11/18/16 09:20 81 12 40 11/18/16 08:00 97.9 76 12 111/58 95 Mechanical Ventilator 40 11/18/16 08:00 40 11/18/16 08:00 77 Intake and Output 11/18/16 11/19/16 19:00 07:00 Intake Total 730 ml 435 ml Output Total 550 ml Balance 180 ml 435 ml Intake Free Water 250 ml Tube Feeding 480 ml 400 ml Other 35 ml Output Urine Total 550 ml # Voids 100 # Bowel Movements 1 2 Objective Sp02 EP Interpretation: reviewed, normal General Appearance: normal inspection, well appearing, no apparent distress, Head: normocephalic, atraumatic Eyes: bilateral eye normal inspection ENT: normal ENT inspection, Neck: normal inspection, no meningismus, carotid 2+ trach Respiratory: decreased breath sounds, without wheeze or rhonchi Cardiovascular #1: regular rate, rhythm, no murmur without MRG Gastrointestinal: non tender, soft, non-distended, no guarding, no rebound; GT Musculoskeletal: no CCE Neurologic: weak diffusely; awake; nonfocal reviewed and edited Current Medications Medications (Trade) Dose Ordered Sig/Josiah Route PRN Reason Start Time Stop Time Status Last Admin Dose Admin Acetaminophen (Tylenol) 650 mg Q4H PRN GT Pain Scale (3-5) 11/12/16 09:00 12/12/16 08:59 11/15/16 08:11 Amitriptyline HCl (Elavil) 10 mg BEDTIME GT 11/12/16 21:00 12/12/16 20:59 11/18/16 20:43 Digoxin (Lanoxin) 0.125 mg DAILY GT 11/12/16 10:00 12/12/16 09:59 11/18/16 10:23 Docusate Sodium (Colace) 100 mg DAILY GT 11/12/16 10:00 12/12/16 09:59 11/18/16 10:23 Furosemide (Lasix) 40 mg DAILY GT 11/12/16 10:00 12/12/16 09:59 11/18/16 10:24 Heparin Sodium (Porcine) (Heparin 5000 units/ml) 5,000 units EVERY 12 HOURS SUBQ 11/12/16 10:00 12/12/16 09:59 11/18/16 20:44 Levofloxacin (Levaquin) 750 mg Q48H GT 11/16/16 14:00 11/23/16 13:59 11/18/16 14:50 Levothyroxine Sodium (Synthroid) 150 mcg ACBREAKFAST GT 11/14/16 06:30 12/14/16 06:29 11/19/16 05:32 Lorazepam (Ativan) 1 mg TIDPRN PRN GT For Anxiety 11/13/16 14:15 11/20/16 14:14 11/14/16 05:25 Midodrine (Pro-Amatine) 5 mg THREE TIMES A DAY GT 11/13/16 13:00 12/13/16 12:59 11/18/16 18:09 MARCY MAJOR Nov 19, 2016 07:16
[2016-11-19 08:00] VITALS: BP 101/53
--- NOTE | 2016-11-19 08:37 | General Progress Note ---
Assessment/Plan Problem List: (1) Prerenal azotemia ICD Codes: R79.89 - Other specified abnormal findings of blood chemistry SNOMED: 829329213 (2) Anemia, chronic disease ICD Codes: D63.8 - Anemia in other chronic diseases classified elsewhere SNOMED: 770099959 (3) Sepsis ICD Codes: A41.9 - Sepsis, unspecified organism SNOMED: 15848304 Qualifiers: Qualified Codes: A41.9 - Sepsis, unspecified organism (4) UTI (urinary tract infection) ICD Codes: N39.0 - Urinary tract infection, site not specified SNOMED: 53097486 Qualifiers: Qualified Codes: N30.00 - Acute cystitis without hematuria (5) Tongue malignant neoplasm ICD Codes: C02.9 - Malignant neoplasm of tongue, unspecified SNOMED: 073199491 (6) Respiratory failure ICD Codes: J96.90 - Respiratory failure, unspecified, unspecified whether with hypoxia or hypercapnia SNOMED: 348843420 Qualifiers: Qualified Codes: J96.10 - Chronic respiratory failure, unspecified whether with hypoxia or hypercapnia Status: stable, progressing Assessment/Plan abx vent resp care gt feeds dc planning home with vent when stable. family coming in for training social worker palliative care and case management assisting Subjective ROS Limited/Unobtainable: No Constitutional: Reports: malaise, weakness HEENT: Reports: no symptoms Cardiovascular: Reports: no symptoms Respiratory: Reports: cough, shortness of breath, sputum Gastrointestinal/Abdominal: Reports: difficulty swallowing Genitourinary: Reports: no symptoms Neurologic/Psychiatric: Reports: pre-existing deficit Endocrine: Reports: no symptoms Hematologic/Lymphatic: Reports: anemia Allergies: Coded Allergies: PENICILLINS (Verified Allergy, Unknown, 07/31/16) All Systems: reviewed and negative except above Subjective no events. no bleeding noted. on the vent. comfortable. no fever or chills. tolerating feeds Objective Last 24 Hour Vital Signs Date Time Temp Pulse Resp B/P Pulse Ox O2 Delivery O2 Flow Rate FiO2 11/19/16 08:00 98.1 75 12 101/53 95 Mechanical Ventilator 40 11/19/16 06:41 77 12 40 11/19/16 05:20 82 16 40 11/19/16 04:00 40 11/19/16 04:00 98.2 76 16 105/60 97 Mechanical Ventilator 98.0 40 11/19/16 04:00 76 6/18/17 02:55 77 15 40 11/19/16 01:19 74 15 40 11/19/16 00:00 98.2 82 17 109/60 97 Mechanical Ventilator 98.0 40 11/19/16 00:00 40 11/19/16 00:00 78 11/18/16 22:46 86 17 40 11/18/16 20:00 75 11/18/16 20:00 98.2 76 16 117/65 97 Mechanical Ventilator 98.0 40 11/18/16 20:00 40 11/18/16 18:44 76 16 40 11/18/16 17:13 70 13 40 11/18/16 16:00 67 11/18/16 16:00 40 11/18/16 16:00 98.2 74 16 112/53 97 Mechanical Ventilator 40 11/18/16 14:59 79 18 40 11/18/16 12:48 71 15 40 11/18/16 12:00 40 11/18/16 12:00 98.2 64 14 112/56 98 Mechanical Ventilator 40 11/18/16 12:00 67 11/18/16 11:25 72 12 40 11/18/16 10:23 81 11/18/16 09:20 81 12 40 Intake and Output 11/18/16 11/19/16 19:00 07:00 Intake Total 730 ml 435 ml Output Total 550 ml Balance 180 ml 435 ml Intake Free Water 250 ml Tube Feeding 480 ml 400 ml Other 35 ml Output Urine Total 550 ml # Voids 100 # Bowel Movements 1 2 Height (Feet): 5 Height (Inches): 3.00 Weight (Pounds): 116 Objective General Appearance: WD/WN, alert Neck: supple Cardiovascular: regular rhythm Respiratory/Chest: lungs clear, normal breath sounds, no respiratory distress Abdomen: normal bowel sounds, non tender, soft, no organomegaly Edema: no edema noted Arm (L), no edema noted Arm (R), no edema noted Leg (L), no edema noted Leg (R), no edema noted Pedal (L), no edema noted Pedal (R), no edema noted Generalized Neurologic: alert, responsive, normal mood/affect CHRISTINA HAMMOND Nov 19, 2016 08:37
--- NOTE | 2016-11-19 08:40 | Infectious Diseases Prog Note ---
Assessment/Plan Assessment/Plan A 1. UTI s/p Rx 2. leucocytosis resolved 3. respiratory failure 4. HPN 5. tongue cancer 6. Pneumonia with pseudomonas 7. Diarrhea P 1. continue Levaquin Subjective ROS Limited/Unobtainable: Yes Allergies: Coded Allergies: PENICILLINS (Verified Allergy, Unknown, 07/31/16) Objective Vital Signs Last 24 Hour Vital Signs Date Time Temp Pulse Resp B/P Pulse Ox O2 Delivery O2 Flow Rate FiO2 11/19/16 08:00 98.1 75 12 101/53 95 Mechanical Ventilator 40 11/19/16 08:00 40 11/19/16 06:41 77 12 40 11/19/16 05:20 82 16 40 11/19/16 04:00 40 11/19/16 04:00 98.2 76 16 105/60 97 Mechanical Ventilator 98.0 40 11/19/16 04:00 76 11/19/16 02:55 77 15 40 11/19/16 01:19 74 15 40 11/19/16 00:00 98.2 82 17 109/60 97 Mechanical Ventilator 98.0 40 11/19/16 00:00 40 11/19/16 00:00 78 11/18/16 22:46 86 17 40 11/18/16 20:00 75 11/18/16 20:00 98.2 76 16 117/65 97 Mechanical Ventilator 98.0 40 11/18/16 20:00 40 11/18/16 18:44 76 16 40 11/18/16 17:13 70 13 40 11/18/16 16:00 67 11/18/16 16:00 40 11/18/16 16:00 98.2 74 16 112/53 97 Mechanical Ventilator 40 11/18/16 14:59 79 18 40 11/18/16 12:48 71 15 40 11/18/16 12:00 40 11/18/16 12:00 98.2 64 14 112/56 98 Mechanical Ventilator 40 11/18/16 12:00 67 11/18/16 11:25 72 12 40 11/18/16 10:23 81 11/18/16 09:20 81 12 40 Height (Feet): 5 Height (Inches): 3.00 Weight (Pounds): 116 General Appearance: no acute distress HEENT: status post trach Respiratory/Chest: lungs clear, other - on ventilator Cardiovascular: normal rate Abdomen: soft, non tender, other - GT feeding Extremities: no edema Neurologic/Psychiatric: alert, responsive Current Medications Medications (Trade) Dose Ordered Sig/Josiah Route PRN Reason Start Time Stop Time Status Last Admin Dose Admin Acetaminophen (Tylenol) 650 mg Q4H PRN GT Pain Scale (3-5) 11/12/16 09:00 12/12/16 08:59 11/15/16 08:11 Amitriptyline HCl (Elavil) 10 mg BEDTIME GT 11/12/16 21:00 12/12/16 20:59 11/18/16 20:43 Digoxin (Lanoxin) 0.125 mg DAILY GT 11/12/16 10:00 12/12/16 09:59 11/18/16 10:23 Docusate Sodium (Colace) 100 mg DAILY GT 11/12/16 10:00 12/12/16 09:59 11/18/16 10:23 Furosemide (Lasix) 40 mg DAILY GT 11/12/16 10:00 12/12/16 09:59 11/18/16 10:24 Heparin Sodium (Porcine) (Heparin 5000 units/ml) 5,000 units EVERY 12 HOURS SUBQ 11/12/16 10:00 12/12/16 09:59 11/18/16 20:44 Levofloxacin (Levaquin) 750 mg Q48H GT 11/16/16 14:00 11/23/16 13:59 11/18/16 14:50 Levothyroxine Sodium (Synthroid) 150 mcg ACBREAKFAST GT 11/14/16 06:30 12/14/16 06:29 11/19/16 05:32 Lorazepam (Ativan) 1 mg TIDPRN PRN GT For Anxiety 11/13/16 14:15 11/20/16 14:14 11/14/16 05:25 Midodrine (Pro-Amatine) 5 mg THREE TIMES A DAY GT 11/13/16 13:00 12/13/16 12:59 11/18/16 18:09 JENNIFER MCKEE Nov 19, 2016 08:40
[2016-11-19] MEDS: Digoxin 0.125mg tab GT SCH (09:22)
[2016-11-19] MEDS: Furosemide 40mg tab GT SCH (09:23)
[2016-11-19] MEDS: Docusate 100mg/10ml Liq GT SCH (09:24)
[2016-11-19] MEDS: Heparin 5000 units/ml inj SUBQ SCH ×2 (09:28→20:31)
[2016-11-19 12:00] VITALS: BP 106/59
[2016-11-19 16:00] VITALS: BP 108/53
[2016-11-19 19:51] VITALS: BP 114/55
[2016-11-20] VITALS: BP 103/61
[2016-11-20 04:00] VITALS: BP 100/53
[2016-11-20 05:04] LABS: EOSINOPHILS % (AUTO) 4.3 % (0.0-3.0); LYMPHOCYTES % (AUTO) 12.7 % (20.0-45.0); MEAN CORPUSCULAR HEMOGLOBIN 31.7 PG (27.0-31.0); MEAN CORPUSCULAR HGB CONC 33.8 G/DL (32.0-36.0); MEAN CORPUSCULAR VOLUME 94 FL (80-99); MEAN PLATELET VOLUME 5.4 FL (6.5-10.1); MONOCYTES % (AUTO) 7.2 % (1.0-10.0); NEUTROPHILS % (AUTO) 74.9 % (45.0-75.0); PLATELET COUNT 321 K/UL (150-450); RED BLOOD COUNT 3.76 M/UL (4.20-5.40); WHITE BLOOD COUNT 10.7 K/UL (4.8-10.8)
[2016-11-20 05:23] LABS: ALANINE AMINOTRANSFERASE 12 U/L (3-33); ALBUMIN/GLOBULIN RATIO 0.6 (1.0-2.7); ANION GAP 8 (5-15); ASPARTATE AMINO TRANSFERASE 18 U/L (5-40); CALCIUM 9.1 mg/dL (8.6-10.2); CARBON DIOXIDE 34 mEQ/L (20-30); CHLORIDE 94 mEQ/L (98-107); CREATININE 0.9 mg/dL (0.5-0.9); HEMOLYSIS 4; POTASSIUM 3.9 mEQ/L (3.4-4.9); SODIUM 136 mEQ/L (135-145)
[2016-11-20 07:46] VITALS: BP 99/59
[2016-11-20] MEDS: Docusate 100mg/10ml Liq GT SCH (09:37)
[2016-11-20] MEDS: Digoxin 0.125mg tab GT SCH (09:38)
[2016-11-20] MEDS: Furosemide 40mg tab GT SCH (09:38)
[2016-11-20] MEDS: Heparin 5000 units/ml inj SUBQ SCH ×2 (09:41→21:21)
--- NOTE | 2016-11-20 10:22 | Pulmonology Progress Note ---
Assessment/Plan Assessment/Plan IMPRESSION: 1. Respiratory failure, chronic encephalopathy. 2. Left lung nodule metastatic 3. 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 4. Sepsis. 5. Tracheostomy G-tube. 6. Leukocytosis 7. History of Acute renal failure. 8. Lower extremity deep vein thrombosis per history. 9. Chronic encephalopathy PLAN exam overall reviewed and stblae care noted and reviewed respiratory care Ventilatory same for now supportive care as outlined monitor secretions no wean prognosis guarded nursing noted reviewed discharge planning to home will need to arrange home vent impression, plan, and exam edited and reviewed in detail care discussed with RN Subjective ROS Limited/Unobtainable: Yes Allergies: Coded Allergies: PENICILLINS (Verified Allergy, Unknown, 07/31/16) Subjective care noted events reviewed Per CM, son wants to take her home Objective Last 24 Hour Vital Signs Date Time Temp Pulse Resp B/P Pulse Ox O2 Delivery O2 Flow Rate FiO2 11/20/16 09:38 87 11/20/16 09:13 87 14 40 11/20/16 07:46 97.9 92 14 99/59 98 11/20/16 06:42 80 14 40 11/20/16 05:27 93 26 40 11/20/16 04:00 97.8 89 14 100/53 97 Mechanical Ventilator 40 11/20/16 04:00 93 11/20/16 04:00 40 11/20/16 03:30 88 23 40 11/20/16 01:02 93 20 40 11/20/16 00:00 97.9 86 26 103/61 98 Mechanical Ventilator 40 11/20/16 00:00 40 11/20/16 00:00 82 11/19/16 23:24 79 15 40 11/19/16 21:30 86 17 40 11/19/16 20:00 40 11/19/16 20:00 79 11/19/16 19:51 98.1 76 14 114/55 94 Mechanical Ventilator 40 11/19/16 19:30 78 17 40 11/19/16 16:38 74 16 40 11/19/16 16:00 72 11/19/16 16:00 97.3 81 20 108/53 94 Mechanical Ventilator 40 11/19/16 16:00 40 11/19/16 14:56 81 18 40 11/19/16 12:38 77 16 40 6/18/17 12:00 40 11/19/16 12:00 97.9 72 16 106/59 99 Mechanical Ventilator 40 11/19/16 12:00 67 11/19/16 10:30 75 16 40 Intake and Output 11/19/16 11/20/16 19:00 07:00 Intake Total 760 ml 510 ml Output Total 650 ml 200 ml Balance 110 ml 310 ml Intake Free Water 280 ml 150 ml Tube Feeding 480 ml 360 ml Output Urine Total 650 ml 200 ml # Bowel Movements 2 2 Objective Sp02 EP Interpretation: reviewed, normal General Appearance: normal inspection, well appearing, no apparent distress, Head: normocephalic, atraumatic Eyes: bilateral eye normal inspection ENT: normal ENT inspection, Neck: normal inspection, no meningismus, carotid 2+ trach Respiratory: decreased breath sounds, without wheeze or rhonchi Cardiovascular #1: regular rate, rhythm, no murmur without MRG Gastrointestinal: non tender, soft, non-distended, no guarding, no rebound; GT Musculoskeletal: no CCE Neurologic: weak diffusely; awake; nonfocal reviewed and edited Laboratory Tests 11/20/16 04:00: White Blood Count 10.7, Red Blood Count 3.76L, Hemoglobin 11.9L, Hematocrit 35.2L, Mean Corpuscular Volume 94, Mean Corpuscular Hemoglobin 31.7H, Mean Corpuscular Hemoglobin Concent 33.8, Red Cell Distribution Width 13.0, Platelet Count 321, Mean Platelet Volume 5.4L, Neutrophils (%) (Auto) 74.9, Lymphocytes ( %) (Auto) 12.7L, Monocytes (%) (Auto) 7.2, Eosinophils (%) (Auto) 4.3H, Basophils (%) (Auto) 1.0, Sodium Level 136, Potassium Level 3.9, Chloride Level 94L, Carbon Dioxide Level 34H, Anion Gap 8, Blood Urea Nitrogen 22, Creatinine 0.9, Estimat Glomerular Filtration Rate , Glucose Level 114H, Calcium Level 9.1 , Total Bilirubin < 0.2, Aspartate Amino Transf (AST/SGOT) 18, Alanine Aminotransferase (ALT/SGPT) 12, Alkaline Phosphatase 101, Total Protein 7.0, Albumin 2.8L, Globulin 4.2, Albumin/Globulin Ratio 0.6L Current Medications Medications (Trade) Dose Ordered Sig/Josiah Route PRN Reason Start Time Stop Time Status Last Admin Dose Admin Acetaminophen (Tylenol) 650 mg Q4H PRN GT Pain Scale (3-5) 11/12/16 09:00 12/12/16 08:59 11/15/16 08:11 Amitriptyline HCl (Elavil) 10 mg BEDTIME GT 11/12/16 21:00 12/12/16 20:59 11/19/16 20:30 Digoxin (Lanoxin) 0.125 mg DAILY GT 11/12/16 10:00 12/12/16 09:59 11/20/16 09:38 Docusate Sodium (Colace) 100 mg DAILY GT 11/12/16 10:00 12/12/16 09:59 11/20/16 09:37 Furosemide (Lasix) 40 mg DAILY GT 11/12/16 10:00 12/12/16 09:59 11/20/16 09:38 Heparin Sodium (Porcine) (Heparin 5000 units/ml) 5,000 units EVERY 12 HOURS SUBQ 11/12/16 10:00 12/12/16 09:59 11/20/16 09:41 Levofloxacin (Levaquin) 750 mg Q48H GT 11/16/16 14:00 11/23/16 13:59 11/18/16 14:50 Levothyroxine Sodium (Synthroid) 150 mcg ACBREAKFAST GT 11/14/16 06:30 12/14/16 06:29 11/20/16 05:30 Lorazepam (Ativan) 1 mg TIDPRN PRN GT For Anxiety 11/13/16 14:15 11/20/16 14:14 11/14/16 05:25 Midodrine (Pro-Amatine) 5 mg THREE TIMES A DAY GT 11/13/16 13:00 12/13/16 12:59 11/20/16 09:39 MARCY MAJOR Nov 20, 2016 10:22
--- NOTE | 2016-11-20 11:42 | Infectious Diseases Prog Note ---
Assessment/Plan Assessment/Plan A 1. UTI s/p Rx 2. leucocytosis resolved 3. respiratory failure 4. HPN 5. tongue cancer 6. Pneumonia with pseudomonas 7. Diarrhea P 1. continue Levaquin X 5 days Subjective ROS Limited/Unobtainable: Yes Allergies: Coded Allergies: PENICILLINS (Verified Allergy, Unknown, 07/31/16) Objective Vital Signs Last 24 Hour Vital Signs Date Time Temp Pulse Resp B/P Pulse Ox O2 Delivery O2 Flow Rate FiO2 11/20/16 10:35 92 16 40 11/20/16 09:38 87 11/20/16 09:13 87 14 40 11/20/16 07:46 97.9 92 14 99/59 98 11/20/16 06:42 80 14 40 11/20/16 05:27 93 26 40 11/20/16 04:00 97.8 89 14 100/53 97 Mechanical Ventilator 40 11/20/16 04:00 93 11/20/16 04:00 40 11/20/16 03:30 88 23 40 11/20/16 01:02 93 20 40 11/20/16 00:00 97.9 86 26 103/61 98 Mechanical Ventilator 40 11/20/16 00:00 40 11/20/16 00:00 82 11/19/16 23:24 79 15 40 11/19/16 21:30 86 17 40 11/19/16 20:00 40 11/19/16 20:00 79 11/19/16 19:51 98.1 76 14 114/55 94 Mechanical Ventilator 40 11/19/16 19:30 78 17 40 11/19/16 16:38 74 16 40 11/19/16 16:00 72 11/19/16 16:00 97.3 81 20 108/53 94 Mechanical Ventilator 40 11/19/16 16:00 40 11/19/16 14:56 81 18 40 11/19/16 12:38 77 16 40 11/19/16 12:00 40 11/19/16 12:00 97.9 72 16 106/59 99 Mechanical Ventilator 40 11/19/16 12:00 67 Height (Feet): 5 Height (Inches): 3.00 Weight (Pounds): 116 General Appearance: no acute distress HEENT: status post trach Respiratory/Chest: lungs clear, other - on ventilaor Cardiovascular: normal rate Abdomen: soft, non tender, other - GT feeding Extremities: no edema Neurologic/Psychiatric: alert, responsive Laboratory Tests Test 11/20/16 04:00 White Blood Count 10.7 K/UL (4.8-10.8) Red Blood Count 3.76 M/UL (4.20-5.40) L Hemoglobin 11.9 G/DL (12.0-16.0) L Hematocrit 35.2 % (37.0-47.0) L Mean Corpuscular Volume 94 FL (80-99) Mean Corpuscular Hemoglobin 31.7 PG (27.0-31.0) H Mean Corpuscular Hemoglobin Concent 33.8 G/DL (32.0-36.0) Red Cell Distribution Width 13.0 % (11.6-14.8) Platelet Count 321 K/UL (150-450) Mean Platelet Volume 5.4 FL (6.5-10.1) L Neutrophils (%) (Auto) 74.9 % (45.0-75.0) Lymphocytes (%) (Auto) 12.7 % (20.0-45.0) L Monocytes (%) (Auto) 7.2 % (1.0-10.0) Eosinophils (%) (Auto) 4.3 % (0.0-3.0) H Basophils (%) (Auto) 1.0 % (0.0-2.0) Sodium Level 136 mEQ/L (135-145) Potassium Level 3.9 mEQ/L (3.4-4.9) Chloride Level 94 mEQ/L (98-107) L Carbon Dioxide Level 34 mEQ/L (20-30) H Anion Gap 8 (5-15) Blood Urea Nitrogen 22 mg/dL (7-23) Creatinine 0.9 mg/dL (0.5-0.9) Estimat Glomerular Filtration Rate mL/min (>60) Glucose Level 114 mg/dL (74-106) H Calcium Level 9.1 mg/dL (8.6-10.2) Total Bilirubin < 0.2 mg/dL (0.0-1.2) Aspartate Amino Transf (AST/SGOT) 18 U/L (5-40) Alanine Aminotransferase (ALT/SGPT) 12 U/L (3-33) Alkaline Phosphatase 101 U/L (35-104) Total Protein 7.0 g/dL (6.6-8.7) Albumin 2.8 g/dL (3.5-5.2) L Globulin 4.2 g/dL Albumin/Globulin Ratio 0.6 (1.0-2.7) L Current Medications Medications (Trade) Dose Ordered Sig/Josiah Route PRN Reason Start Time Stop Time Status Last Admin Dose Admin Acetaminophen (Tylenol) 650 mg Q4H PRN GT Pain Scale (3-5) 11/12/16 09:00 12/12/16 08:59 11/15/16 08:11 Amitriptyline HCl (Elavil) 10 mg BEDTIME GT 11/12/16 21:00 12/12/16 20:59 11/19/16 20:30 Digoxin (Lanoxin) 0.125 mg DAILY GT 11/12/16 10:00 12/12/16 09:59 11/20/16 09:38 Docusate Sodium (Colace) 100 mg DAILY GT 11/12/16 10:00 12/12/16 09:59 11/20/16 09:37 Furosemide (Lasix) 40 mg DAILY GT 11/12/16 10:00 12/12/16 09:59 11/20/16 09:38 Heparin Sodium (Porcine) (Heparin 5000 units/ml) 5,000 units EVERY 12 HOURS SUBQ 11/12/16 10:00 12/12/16 09:59 11/20/16 09:41 Levofloxacin (Levaquin) 750 mg Q48H GT 11/16/16 14:00 11/23/16 13:59 11/18/16 14:50 Levothyroxine Sodium (Synthroid) 150 mcg ACBREAKFAST GT 11/14/16 06:30 12/14/16 06:29 11/20/16 05:30 Lorazepam (Ativan) 1 mg TIDPRN PRN GT For Anxiety 11/13/16 14:15 11/20/16 14:14 11/14/16 05:25 Midodrine (Pro-Amatine) 5 mg THREE TIMES A DAY GT 11/13/16 13:00 12/13/16 12:59 11/20/16 09:39 JENNIFER MCKEE Nov 20, 2016 11:42
[2016-11-20 11:53] VITALS: BP 138/49
[2016-11-20 16:00] VITALS: BP 118/65
--- NOTE | 2016-11-20 19:07 | General Progress Note ---
Assessment/Plan Problem List: (1) Prerenal azotemia ICD Codes: R79.89 - Other specified abnormal findings of blood chemistry SNOMED: 658447282 (2) Anemia, chronic disease ICD Codes: D63.8 - Anemia in other chronic diseases classified elsewhere SNOMED: 163786944 (3) Sepsis ICD Codes: A41.9 - Sepsis, unspecified organism SNOMED: 39478670 Qualifiers: Qualified Codes: A41.9 - Sepsis, unspecified organism (4) UTI (urinary tract infection) ICD Codes: N39.0 - Urinary tract infection, site not specified SNOMED: 36156539 Qualifiers: Qualified Codes: N30.00 - Acute cystitis without hematuria (5) Tongue malignant neoplasm ICD Codes: C02.9 - Malignant neoplasm of tongue, unspecified SNOMED: 264730805 (6) Respiratory failure ICD Codes: J96.90 - Respiratory failure, unspecified, unspecified whether with hypoxia or hypercapnia SNOMED: 784932790 Qualifiers: Qualified Codes: J96.10 - Chronic respiratory failure, unspecified whether with hypoxia or hypercapnia Assessment/Plan abx vent resp care gt feeds dc planning home with vent when stable. family coming in for training manager social media and case management assisting Subjective ROS Limited/Unobtainable: No Constitutional: Reports: malaise, weakness HEENT: Reports: no symptoms Cardiovascular: Reports: no symptoms Respiratory: Reports: cough, shortness of breath, sputum Gastrointestinal/Abdominal: Reports: difficulty swallowing Genitourinary: Reports: no symptoms Neurologic/Psychiatric: Reports: pre-existing deficit Endocrine: Reports: no symptoms Hematologic/Lymphatic: Reports: anemia Allergies: Coded Allergies: PENICILLINS (Verified Allergy, Unknown, 07/31/16) All Systems: reviewed and negative except above Subjective no events. no bleeding noted. on the vent. comfortable. no fever or chills. tolerating feeds Objective Last 24 Hour Vital Signs Date Time Temp Pulse Resp B/P Pulse Ox O2 Delivery O2 Flow Rate FiO2 11/20/16 17:15 99 20 40 11/20/16 16:00 107 11/20/16 16:00 40 11/20/16 16:00 99.3 95 22 118/65 100 11/20/16 15:53 100 19 40 11/20/16 13:43 90 16 40 11/20/16 12:00 106 11/20/16 12:00 40 11/20/16 11:53 97.7 92 18 138/49 99 11/20/16 10:35 92 16 40 11/20/16 09:38 87 11/20/16 09:13 87 14 40 11/20/16 08:00 86 11/20/16 08:00 40 11/20/16 07:46 97.9 92 14 99/59 98 11/20/16 06:42 80 14 40 11/20/16 05:27 93 26 40 11/20/16 04:00 97.8 89 14 100/53 97 Mechanical Ventilator 40 11/20/16 04:00 93 11/20/16 04:00 40 11/20/16 03:30 88 23 40 11/20/16 01:02 93 20 40 11/20/16 00:00 97.9 86 26 103/61 98 Mechanical Ventilator 40 11/20/16 00:00 40 11/20/16 00:00 82 11/19/16 23:24 79 15 40 11/19/16 21:30 86 17 40 11/19/16 20:00 40 11/19/16 20:00 79 11/19/16 19:51 98.1 76 14 114/55 94 Mechanical Ventilator 40 11/19/16 19:30 78 17 40 Intake and Output 11/19/16 11/20/16 19:00 07:00 Intake Total 760 ml 510 ml Output Total 650 ml 200 ml Balance 110 ml 310 ml Intake Free Water 280 ml 150 ml Tube Feeding 480 ml 360 ml Output Urine Total 650 ml 200 ml # Bowel Movements 2 2 Laboratory Tests 11/20/16 04:00: White Blood Count 10.7, Red Blood Count 3.76L, Hemoglobin 11.9L, Hematocrit 35.2L, Mean Corpuscular Volume 94, Mean Corpuscular Hemoglobin 31.7H, Mean Corpuscular Hemoglobin Concent 33.8, Red Cell Distribution Width 13.0, Platelet Count 321, Mean Platelet Volume 5.4L, Neutrophils (%) (Auto) 74.9, Lymphocytes ( %) (Auto) 12.7L, Monocytes (%) (Auto) 7.2, Eosinophils (%) (Auto) 4.3H, Basophils (%) (Auto) 1.0, Sodium Level 136, Potassium Level 3.9, Chloride Level 94L, Carbon Dioxide Level 34H, Anion Gap 8, Blood Urea Nitrogen 22, Creatinine 0.9, Estimat Glomerular Filtration Rate , Glucose Level 114H, Calcium Level 9.1 , Total Bilirubin < 0.2, Aspartate Amino Transf (AST/SGOT) 18, Alanine Aminotransferase (ALT/SGPT) 12, Alkaline Phosphatase 101, Total Protein 7.0, Albumin 2.8L, Globulin 4.2, Albumin/Globulin Ratio 0.6L Height (Feet): 5 Height (Inches): 3.00 Weight (Pounds): 116 Objective General Appearance: WD/WN, alert Neck: supple Cardiovascular: regular rhythm Respiratory/Chest: lungs clear, normal breath sounds, no respiratory distress Abdomen: normal bowel sounds, non tender, soft, no organomegaly Edema: no edema noted Arm (L), no edema noted Arm (R), no edema noted Leg (L), no edema noted Leg (R), no edema noted Pedal (L), no edema noted Pedal (R), no edema noted Generalized Neurologic: alert, responsive, normal mood/affect CHRISTINA HAMMOND Nov 20, 2016 19:07
[2016-11-20 20:00] VITALS: BP 116/74
[2016-11-21] VITALS: BP 128/67
[2016-11-21 04:00] VITALS: BP 102/62
[2016-11-21 08:00] VITALS: BP 106/48
[2016-11-21] MEDS: Digoxin 0.125mg tab GT SCH (08:26)
[2016-11-21] MEDS: Furosemide 40mg tab GT SCH (08:27)
[2016-11-21] MEDS: Docusate 100mg/10ml Liq GT SCH (08:27)
[2016-11-21] MEDS: Heparin 5000 units/ml inj SUBQ SCH ×2 (08:29→21:08)
--- NOTE | 2016-11-21 09:07 | General Progress Note ---
Assessment/Plan Problem List: (1) Prerenal azotemia ICD Codes: R79.89 - Other specified abnormal findings of blood chemistry SNOMED: 335502137 (2) Anemia, chronic disease ICD Codes: D63.8 - Anemia in other chronic diseases classified elsewhere SNOMED: 268695940 (3) Sepsis ICD Codes: A41.9 - Sepsis, unspecified organism SNOMED: 94079036 Qualifiers: Qualified Codes: A41.9 - Sepsis, unspecified organism (4) UTI (urinary tract infection) ICD Codes: N39.0 - Urinary tract infection, site not specified SNOMED: 11604623 Qualifiers: Qualified Codes: N30.00 - Acute cystitis without hematuria (5) Tongue malignant neoplasm ICD Codes: C02.9 - Malignant neoplasm of tongue, unspecified SNOMED: 106377293 (6) Respiratory failure ICD Codes: J96.90 - Respiratory failure, unspecified, unspecified whether with hypoxia or hypercapnia SNOMED: 553277247 Qualifiers: Qualified Codes: J96.10 - Chronic respiratory failure, unspecified whether with hypoxia or hypercapnia Status: stable, progressing Assessment/Plan abx vent resp care gt feeds dc planning home with vent when stable. family coming in for training social services manager and case management assisting Subjective ROS Limited/Unobtainable: No Constitutional: Reports: malaise, weakness HEENT: Reports: no symptoms Cardiovascular: Reports: no symptoms Respiratory: Reports: cough, shortness of breath, sputum Gastrointestinal/Abdominal: Reports: no symptoms Genitourinary: Reports: no symptoms Allergies: Coded Allergies: PENICILLINS (Verified Allergy, Unknown, 07/31/16) All Systems: reviewed and negative except above Subjective no events. no bleeding noted. on the vent. comfortable. no fever or chills. tolerating feeds Objective Last 24 Hour Vital Signs Date Time Temp Pulse Resp B/P Pulse Ox O2 Delivery O2 Flow Rate FiO2 11/21/16 08:26 98 11/21/16 08:00 98.1 97 18 106/48 97 Mechanical Ventilator 40 11/21/16 07:26 115 28 40 11/21/16 05:21 93 14 40 11/21/16 04:00 90 11/21/16 04:00 40 11/21/16 04:00 98.2 90 13 102/62 97 Mechanical Ventilator 40 11/21/16 03:24 94 19 40 11/21/16 01:23 96 13 40 11/21/16 00:00 96 11/21/16 00:00 40 11/21/16 00:00 98.4 109 19 128/67 100 Mechanical Ventilator 40 11/20/16 23:16 109 19 40 11/20/16 21:31 97 18 40 11/20/16 20:00 40 11/20/16 20:00 102 11/20/16 20:00 98.6 95 16 116/74 100 Mechanical Ventilator 40 11/20/16 19:17 90 16 40 11/20/16 17:15 99 20 40 11/20/16 16:00 107 11/20/16 16:00 40 11/20/16 16:00 99.3 95 22 118/65 100 11/20/16 15:53 100 19 40 11/20/16 13:43 90 16 40 11/20/16 12:00 106 11/20/16 12:00 40 11/20/16 11:53 97.7 92 18 138/49 99 11/20/16 10:35 92 16 40 11/20/16 09:38 87 11/20/16 09:13 87 14 40 Intake and Output 11/20/16 11/21/16 19:00 07:00 Intake Total 770 ml 600 ml Output Total 1100 ml 180 ml Balance -330 ml 420 ml Intake Free Water 50 ml 50 ml Tube Feeding 480 ml 400 ml Other 240 ml 150 ml Output Urine Total 1100 ml 180 ml # Bowel Movements 3 1 Height (Feet): 5 Height (Inches): 3.00 Weight (Pounds): 116 Objective General Appearance: WD/WN, alert Neck: supple Cardiovascular: regular rhythm Respiratory/Chest: lungs clear, normal breath sounds, no respiratory distress Abdomen: normal bowel sounds, non tender, soft, no organomegaly Edema: no edema noted Arm (L), no edema noted Arm (R), no edema noted Leg (L), no edema noted Leg (R), no edema noted Pedal (L), no edema noted Pedal (R), no edema noted Generalized Neurologic: alert, responsive, normal mood/affect CHRISTINA HAMMOND Nov 21, 2016 09:07
--- NOTE | 2016-11-21 09:29 | Pulmonology Progress Note ---
Assessment/Plan Assessment/Plan IMPRESSION: 1. Respiratory failure, chronic encephalopathy. 2. Left lung nodule metastatic 3. 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 4. Sepsis. 5. Tracheostomy G-tube. 6. Leukocytosis 7. History of Acute renal failure. 8. Lower extremity deep vein thrombosis per history. 9. Chronic encephalopathy PLAN exam overall reviewed and stblae care noted and reviewed respiratory care Ventilatory same for now supportive care as outlined monitor secretions no wean prognosis guarded nursing noted reviewed discharge planning to home will need to arrange home vent; orders given and discussed with DME company impression, plan, and exam edited and reviewed in detail care discussed with RN Subjective ROS Limited/Unobtainable: Yes Allergies: Coded Allergies: PENICILLINS (Verified Allergy, Unknown, 07/31/16) Subjective care noted events reviewed Per CM, son wants to take her home arranging home vent and family training Objective Last 24 Hour Vital Signs Date Time Temp Pulse Resp B/P Pulse Ox O2 Delivery O2 Flow Rate FiO2 11/21/16 09:22 97 15 40 11/21/16 08:26 98 11/21/16 08:06 99 11/21/16 08:00 98.1 97 18 106/48 97 Mechanical Ventilator 40 11/21/16 07:26 115 28 40 11/21/16 05:21 93 14 40 11/21/16 04:00 90 11/21/16 04:00 40 11/21/16 04:00 98.2 90 13 102/62 97 Mechanical Ventilator 40 11/21/16 03:24 94 19 40 11/21/16 01:23 96 13 40 11/21/16 00:00 96 11/21/16 00:00 40 11/21/16 00:00 98.4 109 19 128/67 100 Mechanical Ventilator 40 11/20/16 23:16 109 19 40 11/20/16 21:31 97 18 40 11/20/16 20:00 40 11/20/16 20:00 102 11/20/16 20:00 98.6 95 16 116/74 100 Mechanical Ventilator 40 11/20/16 19:17 90 16 40 11/20/16 17:15 99 20 40 11/20/16 16:00 107 11/20/16 16:00 40 11/20/16 16:00 99.3 95 22 118/65 100 11/20/16 15:53 100 19 40 6/19/17 13:43 90 16 40 11/20/16 12:00 106 11/20/16 12:00 40 11/20/16 11:53 97.7 92 18 138/49 99 11/20/16 10:35 92 16 40 11/20/16 09:38 87 Intake and Output 11/20/16 11/21/16 19:00 07:00 Intake Total 770 ml 600 ml Output Total 1100 ml 180 ml Balance -330 ml 420 ml Intake Free Water 50 ml 50 ml Tube Feeding 480 ml 400 ml Other 240 ml 150 ml Output Urine Total 1100 ml 180 ml # Bowel Movements 3 1 Objective Sp02 EP Interpretation: reviewed, normal General Appearance: normal inspection, well appearing, no apparent distress, Head: normocephalic, atraumatic Eyes: bilateral eye normal inspection ENT: normal ENT inspection, Neck: normal inspection, no meningismus, carotid 2+ trach Respiratory: decreased breath sounds, without wheeze or rhonchi Cardiovascular #1: regular rate, rhythm, no murmur without MRG Gastrointestinal: non tender, soft, non-distended, no guarding, no rebound; GT Musculoskeletal: no CCE Neurologic: weak diffusely; awake; nonfocal reviewed and edited Current Medications Medications (Trade) Dose Ordered Sig/Josiah Route PRN Reason Start Time Stop Time Status Last Admin Dose Admin Acetaminophen (Tylenol) 650 mg Q4H PRN GT Pain Scale (3-5) 11/12/16 09:00 12/12/16 08:59 11/15/16 08:11 Amitriptyline HCl (Elavil) 10 mg BEDTIME GT 11/12/16 21:00 12/12/16 20:59 11/20/16 21:20 Digoxin (Lanoxin) 0.125 mg DAILY GT 11/12/16 10:00 12/12/16 09:59 11/21/16 08:26 Docusate Sodium (Colace) 100 mg DAILY GT 11/12/16 10:00 12/12/16 09:59 11/21/16 08:27 Furosemide (Lasix) 40 mg DAILY GT 11/12/16 10:00 12/12/16 09:59 11/21/16 08:27 Heparin Sodium (Porcine) (Heparin 5000 units/ml) 5,000 units EVERY 12 HOURS SUBQ 11/12/16 10:00 12/12/16 09:59 11/21/16 08:29 Levofloxacin (Levaquin) 750 mg Q48H GT 11/16/16 14:00 11/23/16 13:59 11/20/16 16:46 Levothyroxine Sodium (Synthroid) 150 mcg ACBREAKFAST GT 11/14/16 06:30 12/14/16 06:29 11/21/16 06:03 Midodrine (Pro-Amatine) 5 mg THREE TIMES A DAY GT 11/13/16 13:00 12/13/16 12:59 11/21/16 08:27 MARCY MAJOR Nov 21, 2016 09:29
[2016-11-21 12:00] VITALS: BP 107/62
--- NOTE | 2016-11-21 12:12 | Infectious Diseases Prog Note ---
Assessment/Plan Assessment/Plan antibiotics : levoquin A 1. UTI s/p rx 2. leucocytosis 3. respiratory failure 4. HTN 5. tongue cancer 6. pseudomonas pneumonia P 1. continue levoquin 4 more days 2. will follow up cultures Subjective ROS Limited/Unobtainable: Yes Allergies: Coded Allergies: PENICILLINS (Verified Allergy, Unknown, 07/31/16) Objective Vital Signs Last 24 Hour Vital Signs Date Time Temp Pulse Resp B/P Pulse Ox O2 Delivery O2 Flow Rate FiO2 11/21/16 10:59 89 17 40 11/21/16 09:22 97 15 40 11/21/16 08:26 98 11/21/16 08:06 99 11/21/16 08:00 98.1 97 18 106/48 97 Mechanical Ventilator 40 11/21/16 08:00 40 11/21/16 07:26 115 28 40 11/21/16 05:21 93 14 40 11/21/16 04:00 90 11/21/16 04:00 40 11/21/16 04:00 98.2 90 13 102/62 97 Mechanical Ventilator 40 11/21/16 03:24 94 19 40 11/21/16 01:23 96 13 40 11/21/16 00:00 96 11/21/16 00:00 40 11/21/16 00:00 98.4 109 19 128/67 100 Mechanical Ventilator 40 11/20/16 23:16 109 19 40 11/20/16 21:31 97 18 40 11/20/16 20:00 40 11/20/16 20:00 102 11/20/16 20:00 98.6 95 16 116/74 100 Mechanical Ventilator 40 11/20/16 19:17 90 16 40 11/20/16 17:15 99 20 40 11/20/16 16:00 107 11/20/16 16:00 40 11/20/16 16:00 99.3 95 22 118/65 100 11/20/16 15:53 100 19 40 11/20/16 13:43 90 16 40 Height (Feet): 5 Height (Inches): 3.00 Weight (Pounds): 116 HEENT: status post trach Respiratory/Chest: lungs clear Cardiovascular: normal rate, regular rhythm, no gallop/murmur Abdomen: soft, non tender, other - GT Extremities: no edema MARA BLOCK Nov 21, 2016 12:12
[2016-11-21] MEDS: Acetaminophen 650mg/20.3ml GT PRN (12:28)
[2016-11-21] MEDS ORDERED: Metoprolol 25mg tab ORAL ONE (13:15)
[2016-11-21 16:00] VITALS: BP 105/56
[2016-11-21 20:00] VITALS: BP 90/48
[2016-11-22] VITALS: BP 86/42
[2016-11-22 04:00] VITALS: BP 83/46
--- NOTE | 2016-11-22 04:00 | Progress Note ---
DATE: 11/21/2016 CARDIOLOGY PROGRESS NOTE: SUBJECTIVE: The patient remains on ventilator support. Discharge plan is for her to go home on a ventilator with family to manage. No new bleeding noted. The patient is tolerating feedings. Monitored rhythm sinus with no tachyarrhythmias, occasional sinus tachycardia. OBJECTIVE: VITAL SIGNS: Blood pressure is 106/48, pulse rate 97, respiratory rate 18, and afebrile. LUNGS: Coarse breath sounds. No wheezing. HEART: Regular rhythm and rate. Normal S1 and S2. ABDOMEN: Soft. G-tube intact. EXTREMITIES: No edema. Muscle atrophy. IMPRESSION: 1. Recovered shock due to sepsis. 2. Pneumonia. 3. Urinary tract infection. 4. Anemia of chronic disease. 5. Secondary sinus tachycardia. 6. Chronic low range blood pressure with episodes of asymptomatic hypotension. 7. Ventilator-dependent respiratory failure. 8. Metastatic head and neck cancer. PLAN: 1. Antimicrobials. 2. Ventilator support. 3. Continue midodrine. 4. Maintain adequate hydration by feeding tube with protein supplementation. Chi Bhatti M.D. DR: Sanjeev JOB#: [id number] CC:
--- NOTE | 2016-11-22 06:14 | Wound Care Consultation ---
Wound Assessment Wound Assessment #1: Wound Number: #1 Wound Present on Admission: Yes New Wound: No Status Change of Wound: No Wound Location Body Site: sacral Wound Type: pressure ulcer Ross Test: Does not Ross Pressure Ulcer Stage: deep tissue injury - resolving Wound Thickness: Full Thickness Wound Length: 3.0 Wound Width: 3.0 Wound Depth: utd Percent of Wound Black/Brown: 100 - skin intact noted tar pot man in color from maroon, [place] color to sacral area. Wound Drainage Description: Serosanguineous Wound Drainage Amount: None Wound Drainage Odor: None/Absent Tissue Surrounding Wound: Intact Wound Assessment #2: Wound Number: #2 Wound Present on Admission: Yes New Wound: No Status Change of Wound: No Wound Location Body Site Modif: right Wound Location Body Site: sacral Wound Type: pressure ulcer Ross Test: Does not Ross Pressure Ulcer Stage: II - resolved Percent of Wound [place]/Red: 100 - reepithelialization closure. Wound Drainage Amount: None Wound Drainage Odor: None/Absent Tissue Surrounding Wound: Intact Wound General Appearance: Asymptomatic Wound Comment #1 sacral resolving deep tissue injury. #2 right sacral stage II RESOLVED. Recommendation. -Local wound care as ordered. -Turn and reposition. -Keep clean and dry. -Offload affected site. -Avoid shear and friction. -Low air loss SPR mattress. -Assess and notify MD for any changes of condition to skin noted. upon reassessment noted good progress to sacral sites noted DTI tar pot man in color remains intact. noted right sacral resolved. YADIRA DIAMOND Nov 22, 2016 06:14
--- NOTE | 2016-11-22 06:41 | Pulmonology Progress Note ---
Assessment/Plan Assessment/Plan IMPRESSION: 1. Respiratory failure, chronic encephalopathy. 2. Left lung nodule metastatic 3. 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 4. Sepsis. 5. Tracheostomy G-tube. 6. Leukocytosis 7. History of Acute renal failure. 8. Lower extremity deep vein thrombosis per history. 9. Chronic encephalopathy PLAN exam overall reviewed and same care noted and reviewed respiratory care Ventilatory same for now supportive care as outlined monitor secretions and suction as needed no wean prognosis guarded nursing noted reviewed discharge planning to home arranging home vent and back up vent impression, plan, and exam edited and reviewed in detail care discussed with RN Subjective ROS Limited/Unobtainable: Yes Allergies: Coded Allergies: PENICILLINS (Verified Allergy, Unknown, 07/31/16) Subjective care noted events reviewed awaiting arrangement for home vent and family training Objective Last 24 Hour Vital Signs Date Time Temp Pulse Resp B/P Pulse Ox O2 Delivery O2 Flow Rate FiO2 11/22/16 05:13 90 13 40 11/22/16 04:00 97.5 82 16 83/46 98 Mechanical Ventilator 40 11/22/16 04:00 40 11/22/16 04:00 83 11/22/16 03:14 87 15 40 11/22/16 01:14 79 13 40 11/22/16 00:00 77 11/22/16 00:00 40 11/22/16 00:00 97.7 77 17 86/42 97 Mechanical Ventilator 40 11/21/16 23:13 75 13 40 11/21/16 21:15 81 13 40 11/21/16 20:00 98.1 78 16 90/48 99 Mechanical Ventilator 40 11/21/16 20:00 77 11/21/16 20:00 40 11/21/16 19:24 77 15 40 11/21/16 17:04 80 13 40 11/21/16 16:00 40 11/21/16 16:00 98.7 75 14 105/56 99 Mechanical Ventilator 40 11/21/16 15:29 81 16 40 11/21/16 15:15 82 11/21/16 13:09 129 107/62 11/21/16 12:53 129 22 40 11/21/16 12:00 97.9 98 18 107/62 93 Mechanical Ventilator 40 11/21/16 12:00 40 11/21/16 11:34 98 11/21/16 10:59 89 17 40 11/21/16 09:22 97 15 40 11/21/16 08:26 98 11/21/16 08:06 99 11/21/16 08:00 98.1 97 18 106/48 97 Mechanical Ventilator 40 11/21/16 08:00 40 11/21/16 07:26 115 28 40 Intake and Output 11/21/16 11/22/16 19:00 07:00 Intake Total 630 ml 550 ml Output Total 550 ml Balance 80 ml 550 ml Intake Free Water 100 ml Tube Feeding 480 ml 400 ml Other 150 ml 50 ml Output Urine Total 550 ml # Bowel Movements 1 2 Objective Sp02 EP Interpretation: reviewed, normal General Appearance: normal inspection, well appearing, no apparent distress, Head: normocephalic, atraumatic Eyes: bilateral eye normal inspection ENT: normal ENT inspection, Neck: normal inspection, no meningismus, carotid 2+ trach Respiratory: decreased breath sounds, without wheeze or rhonchi Cardiovascular #1: regular rate, rhythm, no murmur without MRG Gastrointestinal: non tender, soft, non-distended, no guarding, no rebound; GT Musculoskeletal: no CCE Neurologic: weak diffusely; awake; nonfocal reviewed and edited Current Medications Medications (Trade) Dose Ordered Sig/Josiah Route PRN Reason Start Time Stop Time Status Last Admin Dose Admin Acetaminophen (Tylenol) 650 mg Q4H PRN GT Pain Scale (3-5) 11/12/16 09:00 12/12/16 08:59 11/21/16 12:28 Amitriptyline HCl (Elavil) 10 mg BEDTIME GT 11/12/16 21:00 12/12/16 20:59 11/21/16 21:03 Digoxin (Lanoxin) 0.125 mg DAILY GT 11/12/16 10:00 12/12/16 09:59 11/21/16 08:26 Docusate Sodium (Colace) 100 mg DAILY GT 11/12/16 10:00 12/12/16 09:59 11/21/16 08:27 Furosemide (Lasix) 40 mg DAILY GT 11/12/16 10:00 12/12/16 09:59 11/21/16 08:27 Heparin Sodium (Porcine) (Heparin 5000 units/ml) 5,000 units EVERY 12 HOURS SUBQ 11/12/16 10:00 12/12/16 09:59 11/21/16 21:08 Levofloxacin (Levaquin) 750 mg Q48H GT 11/22/16 14:00 11/28/16 23:59 Levothyroxine Sodium (Synthroid) 150 mcg ACBREAKFAST GT 11/14/16 06:30 12/14/16 06:29 11/21/16 06:03 Midodrine (Pro-Amatine) 5 mg THREE TIMES A DAY GT 11/13/16 13:00 12/13/16 12:59 11/21/16 17:39 MARCY MAJOR Nov 22, 2016 06:41
--- NOTE | 2016-11-22 07:41 | History & Physical ---
History and Physical History & Physicial Patient: ANDREEA AUGUSTIN [facility] Rec #: [id number] Patient No.: [id number] Date of Admission: 11/12/16 Date and time entered: 11/12/16 1152 HISTORY OF PRESENT ILLNESS: 81-year-old female who was noted to have significant leukocytosis and fevers and was sent to emergency room. The patient presented to the Emergency Room at [place] with confirmed leukocytosis. She was started on antibiotics. The patient had recent labs and she appeared to be within normal. retirement chart reviewed The patient was unable to give much more history. The patient however is pleasant and hemodynamically stable currently. Blood pressure is stable at present. The patient is fully dependent and mostly bed bound. She has been trying to wean at the SNF but unable. The patient however has multiple medical problems and multiple medical issues. PAST MEDICAL HISTORY: Notable for chronic respiratory failure, GERD, prior history of pneumonia, head and neck cancer, G-tube, and history of dysrhythmias. metastatic disease, history of acute renal failure MEDICATIONS: Reviewed. ALLERGIES: Reviewed. PAST SURGICAL HISTORY: The patient has undergone a trach and GT; prior tongue biopsy SOCIAL HISTORY: The patient resides in a SNF; nonsmoker or drinker REVIEW OF SYSTEMS: unable PHYSICAL EXAMINATION: GENERAL: This is a well-developed female, comfortable and in NAD VITAL SIGNS: Blood pressure 92/45, respirations 12, temperature 96.6, and saturation 100%. 108 HEENT: Fairly negative. Extraocular movements are intact. The patient's tracheostomy is midline. tongue lesion noted NECK: Supple. No adenopathy. trach LUNGS: Otherwise, fairly clear and symmetric. no rhonchi or wheeze CARDIAC: S1 and S2. Regular rhythm without murmurs, rubs, or gallops. tachy ABDOMEN: Soft, nontender, and nondistended. no HSM: GT EXTREMITIES: No cyanosis, clubbing, or edema. NEUROLOGIC: The patient is weak, nonfocal, and reduced LOC LABORATORY DATA: Laboratory Tests Test 11/12/16 00:50 11/12/16 01:10 White Blood Count 28.0 K/UL (4.8-10.8) *H Red Blood Count 3.16 M/UL (4.20-5.40) L Hemoglobin 9.8 G/DL (12.0-16.0) L Hematocrit 30.2 % (37.0-47.0) L Mean Corpuscular Volume 96 FL (80-99) Mean Corpuscular Hemoglobin 31.1 PG (27.0-31.0) H Mean Corpuscular Hemoglobin Concent 32.5 G/DL (32.0-36.0) Red Cell Distribution Width 12.9 % (11.6-14.8) Platelet Count 383 K/UL (150-450) Mean Platelet Volume 6.1 FL (6.5-10.1) L Neutrophils (%) (Auto) % (45.0-75.0) Lymphocytes (%) (Auto) % (20.0-45.0) Monocytes (%) (Auto) % (1.0-10.0) Eosinophils (%) (Auto) % (0.0-3.0) Basophils (%) (Auto) % (0.0-2.0) Differential Total Cells Counted 100 Neutrophils % (Manual) 69 % (45-75) Lymphocytes % (Manual) 9 % (20-45) L Monocytes % (Manual) 2 % (1-10) Eosinophils % (Manual) 1 % (0-3) Basophils % (Manual) 0 % (0-2) Band Neutrophils 19 % (0-8) H Platelet Estimate Adequate Platelet Morphology Normal Red Blood Cell Morphology Normal Prothrombin Time 10.7 SEC (9.30-11.50) Prothromb Time International Ratio 1.0 (0.9-1.1) Activated Partial Thromboplast Time 35 SEC (23-33) H Sodium Level 138 mEQ/L (135-145) Potassium Level 5.3 mEQ/L (3.4-4.9) H Chloride Level 94 mEQ/L (98-107) L Carbon Dioxide Level 35 mEQ/L (20-30) H Anion Gap 9 (5-15) Blood Urea Nitrogen 36 mg/dL (7-23) H Creatinine 0.9 mg/dL (0.5-0.9) Estimat Glomerular Filtration Rate mL/min (>60) Glucose Level 141 mg/dL (74-106) H Lactic Acid Level 0.70 mmol/L (0.66-2.22) Calcium Level 9.5 mg/dL (8.6-10.2) Total Bilirubin < 0.2 mg/dL (0.0-1.2) Aspartate Amino Transf (AST/SGOT) 28 U/L (5-40) Alanine Aminotransferase (ALT/SGPT) 30 U/L (3-33) Alkaline Phosphatase 182 U/L (35-104) H Total Creatine Kinase 27 U/L (26-140) Creatine Kinase MB < 1.5 ng/mL (< 3.8) Creatine Kinase MB Relative Index 5.5 Troponin I < 0.30 ng/mL (<=0.30) Total Protein 7.7 g/dL (6.6-8.7) Albumin 3.0 g/dL (3.5-5.2) L Globulin 4.7 g/dL Albumin/Globulin Ratio 0.6 (1.0-2.7) L Urine Color Yellow Urine Appearance Cloudy Urine pH 7 (4.5-8.0) Urine Specific [place] 1.005 (1.005-1.035) Urine Protein 3+ (NEGATIVE) H Urine Glucose (UA) Negative (NEGATIVE) Urine Ketones 1+ (NEGATIVE) H Urine Occult Blood 5+ (NEGATIVE) H Urine Nitrite Negative (NEGATIVE) Urine Bilirubin Negative (NEGATIVE) Urine Urobilinogen Normal MG/DL (0.0-1.0) Urine Leukocyte Esterase 2+ (NEGATIVE) H Urine RBC Tntc /HPF (0 - 2) H Urine WBC 60-80 /HPF (0 - 2) H Urine Squamous Epithelial Cells None /LPF (NONE/OCC) Urine Triple Phosphate Crystals Many /LPF (NONE) H Urine Bacteria Moderate /HPF (NONE) H IMPRESSION: 1. Respiratory failure, chronic encephalopathy. 2. Left lung nodule metastatic 3. 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 4. Sepsis. 5. Tracheostomy G-tube. 6. Leukocytosis 7. History of Acute renal failure. 8. Lower extremity deep vein thrombosis per history. 9. Chronic encephalopathy PLAN care noted IV antibiotics respiratory care Ventilatory meds SNF meds supportive care suction no wean oxygen therapy prognosis guarded impression, plan, and exam edited and reviewed in detail care discussed with MARCY GARCIA Nov 12, 2016 11:52 <Electronically signed by MARCY MAJOR M.D.> 11/13/16 0852 MARCY MAJOR Nov 22, 2016 07:41
[2016-11-22 07:59] VITALS: BP 105/50
--- NOTE | 2016-11-22 08:05 | General Progress Note ---
Assessment/Plan Problem List: (1) Prerenal azotemia ICD Codes: R79.89 - Other specified abnormal findings of blood chemistry SNOMED: 817021784 (2) Anemia, chronic disease ICD Codes: D63.8 - Anemia in other chronic diseases classified elsewhere SNOMED: 050487123 (3) Sepsis ICD Codes: A41.9 - Sepsis, unspecified organism SNOMED: 26628860 Qualifiers: Qualified Codes: A41.9 - Sepsis, unspecified organism (4) UTI (urinary tract infection) ICD Codes: N39.0 - Urinary tract infection, site not specified SNOMED: 31129541 Qualifiers: Qualified Codes: N30.00 - Acute cystitis without hematuria (5) Tongue malignant neoplasm ICD Codes: C02.9 - Malignant neoplasm of tongue, unspecified SNOMED: 621137347 (6) Respiratory failure ICD Codes: J96.90 - Respiratory failure, unspecified, unspecified whether with hypoxia or hypercapnia SNOMED: 362163808 Qualifiers: Qualified Codes: J96.10 - Chronic respiratory failure, unspecified whether with hypoxia or hypercapnia Status: stable, progressing Assessment/Plan abx vent resp care gt feeds dc planning home with vent when stable. family coming in for training social media community manager and case management assisting Subjective ROS Limited/Unobtainable: No Constitutional: Reports: malaise, weakness HEENT: Reports: no symptoms Cardiovascular: Reports: no symptoms Respiratory: Reports: shortness of breath, sputum Gastrointestinal/Abdominal: Reports: difficulty swallowing Genitourinary: Reports: no symptoms Neurologic/Psychiatric: Reports: pre-existing deficit Endocrine: Reports: no symptoms Hematologic/Lymphatic: Reports: anemia Allergies: Coded Allergies: PENICILLINS (Verified Allergy, Unknown, 07/31/16) All Systems: reviewed and negative except above Subjective hypotensive this am. better after IVF bolus. no distress. denies chest pain stable on vent. tolerating feeds Objective Last 24 Hour Vital Signs Date Time Temp Pulse Resp B/P Pulse Ox O2 Delivery O2 Flow Rate FiO2 11/22/16 07:59 97.8 84 15 105/50 99 Mechanical Ventilator 40 11/22/16 07:07 79 14 40 11/22/16 05:13 90 13 40 11/22/16 04:00 97.5 82 16 83/46 98 Mechanical Ventilator 40 11/22/16 04:00 40 11/22/16 04:00 83 11/22/16 03:14 87 15 40 11/22/16 01:14 79 13 40 11/22/16 00:00 77 11/22/16 00:00 40 11/22/16 00:00 97.7 77 17 86/42 97 Mechanical Ventilator 40 11/21/16 23:13 75 13 40 11/21/16 21:15 81 13 40 11/21/16 20:00 98.1 78 16 90/48 99 Mechanical Ventilator 40 11/21/16 20:00 77 11/21/16 20:00 40 11/21/16 19:24 77 15 40 11/21/16 17:04 80 13 40 11/21/16 16:00 40 11/21/16 16:00 98.7 75 14 105/56 99 Mechanical Ventilator 40 11/21/16 15:29 81 16 40 11/21/16 15:15 82 11/21/16 13:09 129 107/62 11/21/16 12:53 129 22 40 11/21/16 12:00 97.9 98 18 107/62 93 Mechanical Ventilator 40 11/21/16 12:00 40 11/21/16 11:34 98 11/21/16 10:59 89 17 40 11/21/16 09:22 97 15 40 11/21/16 08:26 98 11/21/16 08:06 99 Intake and Output 11/21/16 11/22/16 19:00 07:00 Intake Total 630 ml 620 ml Output Total 550 ml 300 ml Balance 80 ml 320 ml Intake Free Water 100 ml Tube Feeding 480 ml 420 ml Other 150 ml 100 ml Output Urine Total 550 ml 300 ml # Bowel Movements 1 2 Height (Feet): 5 Height (Inches): 3.00 Weight (Pounds): 116 Objective General Appearance: WD/WN, alert Neck: supple Cardiovascular: regular rhythm Respiratory/Chest: lungs clear, normal breath sounds, no respiratory distress Abdomen: normal bowel sounds, non tender, soft, no organomegaly Edema: no edema noted Arm (L), no edema noted Arm (R), no edema noted Leg (L), no edema noted Leg (R), no edema noted Pedal (L), no edema noted Pedal (R), no edema noted Generalized Neurologic: alert, responsive, normal mood/affect CHRISTINA HAMMOND Nov 22, 2016 08:05
[2016-11-22] MEDS: Docusate 100mg/10ml Liq GT SCH (08:26)
[2016-11-22] MEDS: Digoxin 0.125mg tab GT SCH (08:26)
[2016-11-22] MEDS: Furosemide 40mg tab GT SCH (08:26)
[2016-11-22] MEDS: Heparin 5000 units/ml inj SUBQ SCH ×2 (08:28→20:40)
--- NOTE | 2016-11-22 10:47 | Infectious Diseases Prog Note ---
Assessment/Plan Assessment/Plan antibiotics : levoquin A 1. UTI s/p rx 2. leucocytosis resolved 3. respiratory failure 4. HTN 5. tongue cancer 6. pseudomonas pneumonia P 1. continue levoquin 3 more days 2. will follow up cultures Subjective ROS Limited/Unobtainable: Yes Allergies: Coded Allergies: PENICILLINS (Verified Allergy, Unknown, 07/31/16) Objective Vital Signs Last 24 Hour Vital Signs Date Time Temp Pulse Resp B/P Pulse Ox O2 Delivery O2 Flow Rate FiO2 11/22/16 09:20 71 12 40 11/22/16 08:26 84 11/22/16 08:00 40 11/22/16 07:59 97.8 84 15 105/50 99 Mechanical Ventilator 40 11/22/16 07:07 79 14 40 11/22/16 05:13 90 13 40 11/22/16 04:00 97.5 82 16 83/46 98 Mechanical Ventilator 40 11/22/16 04:00 40 11/22/16 04:00 83 11/22/16 03:14 87 15 40 11/22/16 01:14 79 13 40 11/22/16 00:00 77 11/22/16 00:00 40 11/22/16 00:00 97.7 77 17 86/42 97 Mechanical Ventilator 40 11/21/16 23:13 75 13 40 11/21/16 21:15 81 13 40 11/21/16 20:00 98.1 78 16 90/48 99 Mechanical Ventilator 40 11/21/16 20:00 77 11/21/16 20:00 40 11/21/16 19:24 77 15 40 11/21/16 17:04 80 13 40 11/21/16 16:00 40 11/21/16 16:00 98.7 75 14 105/56 99 Mechanical Ventilator 40 11/21/16 15:29 81 16 40 11/21/16 15:15 82 11/21/16 13:09 129 107/62 11/21/16 12:53 129 22 40 11/21/16 12:00 97.9 98 18 107/62 93 Mechanical Ventilator 40 11/21/16 12:00 40 11/21/16 11:34 98 11/21/16 10:59 89 17 40 Height (Feet): 5 Height (Inches): 3.00 Weight (Pounds): 116 HEENT: status post trach Respiratory/Chest: lungs clear Cardiovascular: normal rate, regular rhythm, no gallop/murmur Abdomen: soft, non tender, other - GT Extremities: no edema MARA BLOCK Nov 22, 2016 10:47
[2016-11-22 12:00] VITALS: BP 111/55
[2016-11-22 16:00] VITALS: BP 101/55
[2016-11-22 20:02] VITALS: BP 101/49
[2016-11-23] VITALS: BP 102/56
--- NOTE | 2016-11-23 02:45 | Progress Note ---
DATE: 11/22/2016 CARDIOLOGY PROGRESS NOTE: SUBJECTIVE: The patient is on ventilator support. Training for discharge home on ventilator support. It is ongoing with family members. Monitored rhythm, sinus. The patient has no apparent distress. OBJECTIVE: VITAL SIGNS: Blood pressure is ranging from 83/46 to 105/50, heart rate 79 to 90, and respiratory rate 13 to 18. No fevers noted. LUNGS: Coarse breath sounds. Scattered rhonchi. HEART: Regular rhythm and rate. ABDOMEN: Soft. G-tube intact. EXTREMITIES: No edema. LABORATORY DATA: No new laboratories. IMPRESSION: 1. Chronic respiratory failure. 2. Head and neck carcinoma. 3. Hypovolemia with shock. 4. Moderate protein-calorie malnutrition. 5. Chronic diastolic congestive heart failure. PLAN: 1. Recheck laboratory studies. 2. Fluid challenge. 3. Gastrostomy tube feeding. 4. Ventilator support. 5. Deep venous thrombosis prophylaxis. 6. Continue midodrine. 7. Re-culture, if continued hypotension. Chi Bhatti M.D. DR: Sanjeev JOB#: [id number] CC:
[2016-11-23 04:00] VITALS: BP 98/54
[2016-11-23 07:58] VITALS: BP 100/52
[2016-11-23] MEDS: Docusate 100mg/10ml Liq GT SCH (08:15)
[2016-11-23] MEDS: Digoxin 0.125mg tab GT SCH (08:15)
[2016-11-23] MEDS: Furosemide 40mg tab GT SCH (08:16)
[2016-11-23] MEDS: Heparin 5000 units/ml inj SUBQ SCH ×2 (08:17→20:25)
--- NOTE | 2016-11-23 08:36 | General Progress Note ---
Assessment/Plan Problem List: (1) Prerenal azotemia ICD Codes: R79.89 - Other specified abnormal findings of blood chemistry SNOMED: 757228569 (2) Anemia, chronic disease ICD Codes: D63.8 - Anemia in other chronic diseases classified elsewhere SNOMED: 204887169 (3) Sepsis ICD Codes: A41.9 - Sepsis, unspecified organism SNOMED: 52803372 Qualifiers: Qualified Codes: A41.9 - Sepsis, unspecified organism (4) UTI (urinary tract infection) ICD Codes: N39.0 - Urinary tract infection, site not specified SNOMED: 76963611 Qualifiers: Qualified Codes: N30.00 - Acute cystitis without hematuria (5) Tongue malignant neoplasm ICD Codes: C02.9 - Malignant neoplasm of tongue, unspecified SNOMED: 637499036 (6) Respiratory failure ICD Codes: J96.90 - Respiratory failure, unspecified, unspecified whether with hypoxia or hypercapnia SNOMED: 424407777 Qualifiers: Qualified Codes: J96.10 - Chronic respiratory failure, unspecified whether with hypoxia or hypercapnia Assessment/Plan abx vent resp care gt feeds pt needs gt feeds for life. has chronic dysphagia due to tongue cancer. Pt needs a feeding pump for continuous feeds. cannot tolerate bolus feeds or gravity feeds due to vomiting and poor tolerance of bolus feeds in the past. dc planning home with vent when stable and dme arranged. family coming in for training social media content specialist and case management assisting Subjective ROS Limited/Unobtainable: No Constitutional: Reports: malaise, weakness HEENT: Reports: no symptoms Cardiovascular: Reports: no symptoms Respiratory: Reports: no symptoms Gastrointestinal/Abdominal: Reports: difficulty swallowing Genitourinary: Reports: no symptoms Neurologic/Psychiatric: Reports: pre-existing deficit Endocrine: Reports: no symptoms Hematologic/Lymphatic: Reports: anemia Allergies: Coded Allergies: PENICILLINS (Verified Allergy, Unknown, 07/31/16) All Systems: reviewed and negative except above Subjective no events. w/o complaints. no fever or chills. tolerating feeds. Objective Last 24 Hour Vital Signs Date Time Temp Pulse Resp B/P Pulse Ox O2 Delivery O2 Flow Rate FiO2 11/23/16 08:15 77 11/23/16 07:58 97.2 77 17 100/52 100 Mechanical Ventilator 11/23/16 06:57 92 21 40 11/23/16 05:07 78 14 40 11/23/16 04:00 97.4 80 15 98/54 98 Mechanical Ventilator 40 11/23/16 04:00 74 11/23/16 04:00 40 11/23/16 03:17 73 13 40 11/23/16 01:05 70 13 40 11/23/16 00:00 71 11/23/16 00:00 98.0 74 13 102/56 98 Mechanical Ventilator 40 11/23/16 00:00 40 11/22/16 23:10 68 12 40 11/22/16 21:11 68 12 40 11/22/16 20:02 97.7 78 17 101/49 98 Mechanical Ventilator 40 11/22/16 20:00 71 11/22/16 20:00 40 11/22/16 19:30 78 18 40 11/22/16 16:56 74 16 40 11/22/16 16:00 75 11/22/16 16:00 97.3 78 15 101/55 98 Mechanical Ventilator 40 11/22/16 16:00 40 11/22/16 15:25 71 18 40 11/22/16 13:21 73 18 40 11/22/16 12:00 77 11/22/16 12:00 40 11/22/16 12:00 97.5 80 15 111/55 100 Mechanical Ventilator 40 11/22/16 10:50 73 12 40 11/22/16 09:20 71 12 40 Intake and Output 11/22/16 11/23/16 19:00 07:00 Intake Total 2918 ml 560 ml Output Total 700 ml 500 ml Balance 2218 ml 60 ml Intake Free Water 200 ml IV Total 1998 ml Tube Feeding 480 ml 480 ml Other 240 ml 80 ml Output Urine Total 700 ml 500 ml # Bowel Movements 6 1 Height (Feet): 5 Height (Inches): 3.00 Weight (Pounds): 116 Objective General Appearance: WD/WN, alert Neck: supple Cardiovascular: regular rhythm Respiratory/Chest: lungs clear, normal breath sounds, no respiratory distress Abdomen: normal bowel sounds, non tender, soft, no organomegaly Edema: no edema noted Arm (L), no edema noted Arm (R), no edema noted Leg (L), no edema noted Leg (R), no edema noted Pedal (L), no edema noted Pedal (R), no edema noted Generalized Neurologic: alert, responsive, normal mood/affect CHRISTINA HAMMOND Nov 23, 2016 08:36
[2016-11-23 09:19] LABS: LYMPHOCYTES % (AUTO) 17.6 % (20.0-45.0); MEAN CORPUSCULAR HEMOGLOBIN 32.2 PG (27.0-31.0); MEAN CORPUSCULAR HGB CONC 33.4 G/DL (32.0-36.0); MEAN CORPUSCULAR VOLUME 97 FL (80-99); MEAN PLATELET VOLUME 6.1 FL (6.5-10.1); MONOCYTES % (AUTO) 10.5 % (1.0-10.0); PLATELET COUNT 334 K/UL (150-450); RED BLOOD COUNT 4.07 M/UL (4.20-5.40); RED CELL DISTRIBUTION WIDTH 13.2 % (11.6-14.8); WHITE BLOOD COUNT 9.7 K/UL (4.8-10.8)
[2016-11-23 09:40] LABS: ALANINE AMINOTRANSFERASE 9 U/L (3-33); ALBUMIN/GLOBULIN RATIO 0.7 (1.0-2.7); ANION GAP 10 (5-15); ASPARTATE AMINO TRANSFERASE 16 U/L (5-40); CALCIUM 9.4 mg/dL (8.6-10.2); CARBON DIOXIDE 35 mEQ/L (20-30); CHLORIDE 93 mEQ/L (98-107); HEMOLYSIS 2; MAGNESIUM 2.3 mg/dL (1.7-2.5); POTASSIUM 3.8 mEQ/L (3.4-4.9); SODIUM 138 mEQ/L (135-145); TOTAL PROTEIN 7.3 g/dL (6.6-8.7)
--- NOTE | 2016-11-23 10:05 | Infectious Diseases Prog Note ---
Assessment/Plan Assessment/Plan A 1. UTI s/p Rx 2. leucocytosis resolved 3. respiratory failure 4. HPN 5. tongue cancer 6. Pneumonia with pseudomonas 7. Diarrhea P 1. continue Levaquin X 2 days Subjective ROS Limited/Unobtainable: Yes Allergies: Coded Allergies: PENICILLINS (Verified Allergy, Unknown, 07/31/16) Objective Vital Signs Last 24 Hour Vital Signs Date Time Temp Pulse Resp B/P Pulse Ox O2 Delivery O2 Flow Rate FiO2 11/23/16 09:00 73 15 40 11/23/16 08:15 77 11/23/16 08:00 40 11/23/16 08:00 69 11/23/16 07:58 97.2 77 17 100/52 100 Mechanical Ventilator 11/23/16 06:57 92 21 40 11/23/16 05:07 78 14 40 11/23/16 04:00 97.4 80 15 98/54 98 Mechanical Ventilator 40 11/23/16 04:00 74 11/23/16 04:00 40 11/23/16 03:17 73 13 40 11/23/16 01:05 70 13 40 11/23/16 00:00 71 11/23/16 00:00 98.0 74 13 102/56 98 Mechanical Ventilator 40 11/23/16 00:00 40 11/22/16 23:10 68 12 40 11/22/16 21:11 68 12 40 11/22/16 20:02 97.7 78 17 101/49 98 Mechanical Ventilator 40 11/22/16 20:00 71 11/22/16 20:00 40 11/22/16 19:30 78 18 40 11/22/16 16:56 74 16 40 11/22/16 16:00 75 11/22/16 16:00 97.3 78 15 101/55 98 Mechanical Ventilator 40 11/22/16 16:00 40 11/22/16 15:25 71 18 40 11/22/16 13:21 73 18 40 11/22/16 12:00 77 11/22/16 12:00 40 11/22/16 12:00 97.5 80 15 111/55 100 Mechanical Ventilator 40 11/22/16 10:50 73 12 40 Height (Feet): 5 Height (Inches): 3.00 Weight (Pounds): 116 General Appearance: no acute distress HEENT: status post trach Respiratory/Chest: lungs clear, other - on ventilatotr Abdomen: soft, non tender Extremities: no edema Neurologic/Psychiatric: alert, responsive Laboratory Tests Test 11/23/16 08:10 White Blood Count 9.7 K/UL (4.8-10.8) Red Blood Count 4.07 M/UL (4.20-5.40) L Hemoglobin 13.1 G/DL (12.0-16.0) Hematocrit 39.3 % (37.0-47.0) Mean Corpuscular Volume 97 FL (80-99) Mean Corpuscular Hemoglobin 32.2 PG (27.0-31.0) H Mean Corpuscular Hemoglobin Concent 33.4 G/DL (32.0-36.0) Red Cell Distribution Width 13.2 % (11.6-14.8) Platelet Count 334 K/UL (150-450) Mean Platelet Volume 6.1 FL (6.5-10.1) L Neutrophils (%) (Auto) 67.0 % (45.0-75.0) Lymphocytes (%) (Auto) 17.6 % (20.0-45.0) L Monocytes (%) (Auto) 10.5 % (1.0-10.0) H Eosinophils (%) (Auto) 4.0 % (0.0-3.0) H Basophils (%) (Auto) 1.0 % (0.0-2.0) Sodium Level 138 mEQ/L (135-145) Potassium Level 3.8 mEQ/L (3.4-4.9) Chloride Level 93 mEQ/L (98-107) L Carbon Dioxide Level 35 mEQ/L (20-30) H Anion Gap 10 (5-15) Blood Urea Nitrogen 26 mg/dL (7-23) H Creatinine 1.0 mg/dL (0.5-0.9) H Estimat Glomerular Filtration Rate mL/min (>60) Glucose Level 93 mg/dL (74-106) Calcium Level 9.4 mg/dL (8.6-10.2) Magnesium Level 2.3 mg/dL (1.7-2.5) Total Bilirubin 0.4 mg/dL (0.0-1.2) Aspartate Amino Transf (AST/SGOT) 16 U/L (5-40) Alanine Aminotransferase (ALT/SGPT) 9 U/L (3-33) Alkaline Phosphatase 79 U/L (35-104) Pro-B-Type Natriuretic Peptide 191 pg/mL (0-450) Total Protein 7.3 g/dL (6.6-8.7) Albumin 3.1 g/dL (3.5-5.2) L Globulin 4.2 g/dL Albumin/Globulin Ratio 0.7 (1.0-2.7) L Current Medications Medications (Trade) Dose Ordered Sig/Josiah Route PRN Reason Start Time Stop Time Status Last Admin Dose Admin Acetaminophen (Tylenol) 650 mg Q4H PRN GT Pain Scale (3-5) 11/12/16 09:00 12/12/16 08:59 11/21/16 12:28 Amitriptyline HCl (Elavil) 10 mg BEDTIME GT 11/12/16 21:00 12/12/16 20:59 11/22/16 20:38 Digoxin (Lanoxin) 0.125 mg DAILY GT 11/12/16 10:00 12/12/16 09:59 11/23/16 08:15 Docusate Sodium (Colace) 100 mg DAILY GT 11/12/16 10:00 12/12/16 09:59 11/23/16 08:15 Furosemide (Lasix) 40 mg DAILY GT 11/12/16 10:00 12/12/16 09:59 11/23/16 08:16 Heparin Sodium (Porcine) (Heparin 5000 units/ml) 5,000 units EVERY 12 HOURS SUBQ 11/12/16 10:00 12/12/16 09:59 11/23/16 08:17 Levofloxacin (Levaquin) 750 mg Q48H GT 11/22/16 14:00 11/28/16 23:59 11/22/16 13:35 Levothyroxine Sodium (Synthroid) 150 mcg ACBREAKFAST GT 11/14/16 06:30 12/14/16 06:29 11/23/16 05:52 Midodrine (Pro-Amatine) 5 mg THREE TIMES A DAY GT 11/13/16 13:00 12/13/16 12:59 11/23/16 08:16 JENNIFER MCKEE Nov 23, 2016 10:05
[2016-11-23 12:00] VITALS: BP 99/55
--- NOTE | 2016-11-23 13:12 | Pulmonology Progress Note ---
Assessment/Plan Assessment/Plan IMPRESSION: 1. Respiratory failure, chronic encephalopathy. 2. Left lung nodule metastatic 3. 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 4. Sepsis. 5. Tracheostomy G-tube. 6. Leukocytosis 7. History of Acute renal failure. 8. Lower extremity deep vein thrombosis per history. 9. Chronic encephalopathy PLAN exam overall reviewed and same care noted and reviewed respiratory care Ventilatory same for now supportive care as outlined monitor airway prognosis guarded nursing noted reviewed discharge planning to home when everything is set up consider hospice arranging home vent and back up vent impression, plan, and exam edited and reviewed in detail care discussed with RN Subjective ROS Limited/Unobtainable: Yes Allergies: Coded Allergies: PENICILLINS (Verified Allergy, Unknown, 07/31/16) Subjective care noted events reviewed awaiting arrangement for home vent and family training d/w PMD Objective Last 24 Hour Vital Signs Date Time Temp Pulse Resp B/P Pulse Ox O2 Delivery O2 Flow Rate FiO2 11/23/16 12:00 40 11/23/16 12:00 97.0 75 18 99/55 99 Mechanical Ventilator 40 11/23/16 10:58 75 17 40 11/23/16 09:00 73 15 40 11/23/16 08:15 77 11/23/16 08:00 40 11/23/16 08:00 69 11/23/16 07:58 97.2 77 17 100/52 100 Mechanical Ventilator 11/23/16 06:57 92 21 40 11/23/16 05:07 78 14 40 11/23/16 04:00 97.4 80 15 98/54 98 Mechanical Ventilator 40 11/23/16 04:00 74 11/23/16 04:00 40 11/23/16 03:17 73 13 40 11/23/16 01:05 70 13 40 11/23/16 00:00 71 11/23/16 00:00 98.0 74 13 102/56 98 Mechanical Ventilator 40 11/23/16 00:00 40 11/22/16 23:10 68 12 40 11/22/16 21:11 68 12 40 11/22/16 20:02 97.7 78 17 101/49 98 Mechanical Ventilator 40 11/22/16 20:00 71 11/22/16 20:00 40 11/22/16 19:30 78 18 40 11/22/16 16:56 74 16 40 11/22/16 16:00 75 11/22/16 16:00 97.3 78 15 101/55 98 Mechanical Ventilator 40 11/22/16 16:00 40 11/22/16 15:25 71 18 40 11/22/16 13:21 73 18 40 Intake and Output 11/22/16 11/23/16 19:00 07:00 Intake Total 2918 ml 560 ml Output Total 700 ml 500 ml Balance 2218 ml 60 ml Intake Free Water 200 ml IV Total 1998 ml Tube Feeding 480 ml 480 ml Other 240 ml 80 ml Output Urine Total 700 ml 500 ml # Bowel Movements 6 1 Objective Sp02 EP Interpretation: reviewed, normal General Appearance: normal inspection, well appearing, no apparent distress, Head: normocephalic, atraumatic Eyes: bilateral eye normal inspection ENT: normal ENT inspection, Neck: normal inspection, no meningismus, carotid 2+ trach Respiratory: decreased breath sounds, without wheeze or rhonchi Cardiovascular #1: regular rate, rhythm, no murmur without MRG Gastrointestinal: non tender, soft, non-distended, no guarding, no rebound; GT Musculoskeletal: no CCE Neurologic: weak diffusely; awake; nonfocal reviewed and edited Laboratory Tests 11/23/16 08:10: White Blood Count 9.7, Red Blood Count 4.07L, Hemoglobin 13.1, Hematocrit 39.3, Mean Corpuscular Volume 97, Mean Corpuscular Hemoglobin 32.2H, Mean Corpuscular Hemoglobin Concent 33.4, Red Cell Distribution Width 13.2, Platelet Count 334, Mean Platelet Volume 6.1L, Neutrophils (%) (Auto) 67.0, Lymphocytes (%) (Auto) 17.6L, Monocytes (%) (Auto) 10.5H, Eosinophils (%) (Auto) 4.0H, Basophils (%) ( Auto) 1.0, Sodium Level 138, Potassium Level 3.8, Chloride Level 93L, Carbon Dioxide Level 35H, Anion Gap 10, Blood Urea Nitrogen 26H, Creatinine 1.0H, Estimat Glomerular Filtration Rate , Glucose Level 93, Calcium Level 9.4, Magnesium Level 2.3, Total Bilirubin 0.4, Aspartate Amino Transf (AST/SGOT) 16, Alanine Aminotransferase (ALT/SGPT) 9, Alkaline Phosphatase 79, Pro-B-Type Natriuretic Peptide 191, Total Protein 7.3, Albumin 3.1L, Globulin 4.2, Albumin/ Globulin Ratio 0.7L Current Medications Medications (Trade) Dose Ordered Sig/Josiah Route PRN Reason Start Time Stop Time Status Last Admin Dose Admin Acetaminophen (Tylenol) 650 mg Q4H PRN GT Pain Scale (3-5) 11/12/16 09:00 12/12/16 08:59 11/21/16 12:28 Amitriptyline HCl (Elavil) 10 mg BEDTIME GT 11/12/16 21:00 12/12/16 20:59 11/22/16 20:38 Digoxin (Lanoxin) 0.125 mg DAILY GT 11/12/16 10:00 12/12/16 09:59 11/23/16 08:15 Docusate Sodium (Colace) 100 mg DAILY GT 11/12/16 10:00 12/12/16 09:59 11/23/16 08:15 Furosemide (Lasix) 40 mg DAILY GT 11/12/16 10:00 12/12/16 09:59 11/23/16 08:16 Heparin Sodium (Porcine) (Heparin 5000 units/ml) 5,000 units EVERY 12 HOURS SUBQ 11/12/16 10:00 12/12/16 09:59 11/23/16 08:17 Levofloxacin (Levaquin) 750 mg Q48H GT 11/22/16 14:00 11/28/16 23:59 11/22/16 13:35 Levothyroxine Sodium (Synthroid) 150 mcg ACBREAKFAST GT 11/14/16 06:30 12/14/16 06:29 11/23/16 05:52 Midodrine (Pro-Amatine) 5 mg THREE TIMES A DAY GT 11/13/16 13:00 12/13/16 12:59 11/23/16 08:16 MARCY MAJOR Nov 23, 2016 13:12
[2016-11-23 16:00] VITALS: BP 98/53
--- NOTE | 2016-11-23 18:15 | Progress Note ---
DATE: 11/23/2016 CARDIOLOGY PROGRESS NOTE SUBJECTIVE: The patient remains on ventilator support. Family members are training for care at home. The patient is tolerating G-tube feeds. Monitored rhythm remains sinus. OBJECTIVE: VITAL SIGNS: Blood pressure parameters are slightly improved, ranging in with systolic pressure of 100 and diastolic of 50, yesterday there were readings in the 90s. CHEST: Coarse breath sounds. Few rhonchi. HEART: Regular rhythm and rate. Normal S1 and S2. ABDOMEN: Soft. G-tube intact. EXTREMITIES: No edema. LABORATORY AND DIAGNOSTIC DATA: White count 9.7 and hemoglobin 13.1. Potassium 3.8, BUN 26, and creatinine 1.0. Albumin 3.1. IMPRESSION: 1. Chronic hypotension. 2. Autonomic dysfunction. 3. Recovering urinary tract infection with sepsis and shock. 4. Ventilator-dependent respiratory failure. 5. Chronic diastolic congestive heart failure. 6. Secondary sinus tachycardia. 7. Metastatic head and neck carcinoma. 8. Mild protein-calorie malnutrition. PLAN: No change in current cardiovascular regimen. Titrate midodrine for improvement in baseline low blood pressure reading. Discharge home once adequate family training with the use of ventilator and home care needs. Chi Bhatti M.D. DR: MYRNA JOB#: [id number] CC:
[2016-11-23 20:10] VITALS: BP 104/52
[2016-11-24] VITALS: BP 128/59
[2016-11-24 04:00] VITALS: BP 104/53
[2016-11-24 07:48] VITALS: BP 91/52
--- NOTE | 2016-11-24 08:09 | Pulmonology Progress Note ---
Assessment/Plan Assessment/Plan IMPRESSION: 1. Respiratory failure, chronic encephalopathy. 2. Left lung nodule metastatic 3. 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 4. Sepsis. 5. Tracheostomy G-tube. 6. Leukocytosis 7. History of Acute renal failure. 8. Lower extremity deep vein thrombosis per history. 9. Chronic encephalopathy PLAN exam overall reviewed and same care noted and reviewed respiratory care needs home health, hospital beds, pole and feeds discharge planning to home when everything is set up consider hospice arranging home vent and back up vent impression, plan, and exam edited and reviewed in detail care discussed with RN Subjective Allergies: Coded Allergies: PENICILLINS (Verified Allergy, Unknown, 07/31/16) Subjective care noted events reviewed awaiting arrangement for home vent and family training d/w PMD Objective Last 24 Hour Vital Signs Date Time Temp Pulse Resp B/P Pulse Ox O2 Delivery O2 Flow Rate FiO2 11/24/16 07:48 97.6 74 18 91/52 98 Mechanical Ventilator 11/24/16 07:01 71 15 40 11/24/16 05:16 77 13 40 11/24/16 04:00 74 11/24/16 04:00 40 11/24/16 04:00 98.9 74 15 104/53 99 Mechanical Ventilator 40 11/24/16 03:16 75 15 40 11/24/16 01:34 73 13 40 11/24/16 00:00 98.7 78 19 128/59 97 Mechanical Ventilator 40 11/24/16 00:00 40 11/24/16 00:00 76 11/23/16 23:15 85 17 40 11/23/16 21:09 75 16 40 11/23/16 20:10 98.1 75 15 104/52 97 Mechanical Ventilator 40 11/23/16 20:00 40 11/23/16 20:00 77 11/23/16 19:18 77 20 40 11/23/16 16:54 93 19 40 11/23/16 16:00 69 11/23/16 16:00 97.7 70 17 98/53 98 Mechanical Ventilator 40 11/23/16 16:00 40 11/23/16 15:04 77 20 40 11/23/16 12:50 71 14 40 11/23/16 12:00 40 11/23/16 12:00 74 11/23/16 12:00 97.0 75 18 99/55 99 Mechanical Ventilator 40 11/23/16 10:58 75 17 40 11/23/16 09:00 73 15 40 11/23/16 08:15 77 Intake and Output 11/23/16 11/24/16 19:00 07:00 Intake Total 630 ml 370 ml Output Total 550 ml 300 ml Balance 80 ml 70 ml Intake Free Water 150 ml Tube Feeding 480 ml 320 ml Other 50 ml Output Urine Total 550 ml 300 ml # Bowel Movements 2 Objective Sp02 EP Interpretation: reviewed, normal General Appearance: normal inspection, well appearing, no apparent distress, Head: normocephalic, atraumatic Eyes: bilateral eye normal inspection ENT: normal ENT inspection, Neck: normal inspection, no meningismus, carotid 2+ trach Respiratory: decreased breath sounds, without wheeze or rhonchi Cardiovascular #1: regular rate, rhythm, no murmur without MRG Gastrointestinal: non tender, soft, non-distended, no guarding, no rebound; GT Musculoskeletal: no CCE Neurologic: weak diffusely; awake; nonfocal reviewed and edited Laboratory Tests 11/23/16 08:10: White Blood Count 9.7, Red Blood Count 4.07L, Hemoglobin 13.1, Hematocrit 39.3, Mean Corpuscular Volume 97, Mean Corpuscular Hemoglobin 32.2H, Mean Corpuscular Hemoglobin Concent 33.4, Red Cell Distribution Width 13.2, Platelet Count 334, Mean Platelet Volume 6.1L, Neutrophils (%) (Auto) 67.0, Lymphocytes (%) (Auto) 17.6L, Monocytes (%) (Auto) 10.5H, Eosinophils (%) (Auto) 4.0H, Basophils (%) ( Auto) 1.0, Sodium Level 138, Potassium Level 3.8, Chloride Level 93L, Carbon Dioxide Level 35H, Anion Gap 10, Blood Urea Nitrogen 26H, Creatinine 1.0H, Estimat Glomerular Filtration Rate , Glucose Level 93, Calcium Level 9.4, Magnesium Level 2.3, Total Bilirubin 0.4, Aspartate Amino Transf (AST/SGOT) 16, Alanine Aminotransferase (ALT/SGPT) 9, Alkaline Phosphatase 79, Pro-B-Type Natriuretic Peptide 191, Total Protein 7.3, Albumin 3.1L, Globulin 4.2, Albumin/ Globulin Ratio 0.7L Current Medications Medications (Trade) Dose Ordered Sig/Josiah Route PRN Reason Start Time Stop Time Status Last Admin Dose Admin Acetaminophen (Tylenol) 650 mg Q4H PRN GT Pain Scale (3-5) 11/12/16 09:00 12/12/16 08:59 11/21/16 12:28 Amitriptyline HCl (Elavil) 10 mg BEDTIME GT 11/12/16 21:00 12/12/16 20:59 11/23/16 20:24 Digoxin (Lanoxin) 0.125 mg DAILY GT 11/12/16 10:00 12/12/16 09:59 11/23/16 08:15 Docusate Sodium (Colace) 100 mg DAILY GT 11/12/16 10:00 12/12/16 09:59 11/23/16 08:15 Furosemide (Lasix) 40 mg DAILY GT 11/12/16 10:00 12/12/16 09:59 11/23/16 08:16 Heparin Sodium (Porcine) (Heparin 5000 units/ml) 5,000 units EVERY 12 HOURS SUBQ 11/12/16 10:00 12/12/16 09:59 11/23/16 20:25 Levofloxacin (Levaquin) 750 mg Q48H GT 11/22/16 14:00 11/28/16 23:59 11/22/16 13:35 Levothyroxine Sodium (Synthroid) 150 mcg ACBREAKFAST GT 11/14/16 06:30 12/14/16 06:29 11/24/16 06:02 Midodrine (Pro-Amatine) 5 mg THREE TIMES A DAY GT 11/13/16 13:00 12/13/16 12:59 11/23/16 17:59 MARCY MAJOR Nov 24, 2016 08:09
[2016-11-24] MEDS: Docusate 100mg/10ml Liq GT SCH (09:00)
[2016-11-24] MEDS: Heparin 5000 units/ml inj SUBQ SCH ×2 (09:00→20:57)
[2016-11-24] MEDS: Furosemide 40mg tab GT SCH (10:01)
[2016-11-24] MEDS: Digoxin 0.125mg tab GT SCH (10:01)
[2016-11-24] MEDS ORDERED: NS 275ml ONE (10:21)
--- NOTE | 2016-11-24 12:11 | Infectious Diseases Prog Note ---
Assessment/Plan Assessment/Plan antibiotics : levoquin A 1. UTI s/p rx 2. leucocytosis resolved 3. respiratory failure 4. HTN 5. tongue cancer 6. pseudomonas pneumonia P 1. continue levoquin 1 more day 2. will follow up cultures Subjective ROS Limited/Unobtainable: Yes Allergies: Coded Allergies: PENICILLINS (Verified Allergy, Unknown, 07/31/16) Objective Vital Signs Last 24 Hour Vital Signs Date Time Temp Pulse Resp B/P Pulse Ox O2 Delivery O2 Flow Rate FiO2 11/24/16 10:01 65 11/24/16 09:12 75 14 40 11/24/16 09:00 40 11/24/16 08:00 68 11/24/16 07:48 97.6 74 18 91/52 98 Mechanical Ventilator 11/24/16 07:01 71 15 40 11/24/16 05:16 77 13 40 11/24/16 04:00 74 11/24/16 04:00 40 11/24/16 04:00 98.9 74 15 104/53 99 Mechanical Ventilator 40 11/24/16 03:16 75 15 40 11/24/16 01:34 73 13 40 11/24/16 00:00 98.7 78 19 128/59 97 Mechanical Ventilator 40 11/24/16 00:00 40 11/24/16 00:00 76 11/23/16 23:15 85 17 40 11/23/16 21:09 75 16 40 11/23/16 20:10 98.1 75 15 104/52 97 Mechanical Ventilator 40 11/23/16 20:00 40 11/23/16 20:00 77 11/23/16 19:18 77 20 40 11/23/16 16:54 93 19 40 11/23/16 16:00 69 11/23/16 16:00 97.7 70 17 98/53 98 Mechanical Ventilator 40 11/23/16 16:00 40 11/23/16 15:04 77 20 40 11/23/16 12:50 71 14 40 Height (Feet): 5 Height (Inches): 3.00 Weight (Pounds): 116 HEENT: status post trach Respiratory/Chest: lungs clear Cardiovascular: normal rate, regular rhythm, no gallop/murmur Abdomen: soft, non tender, other - GT Extremities: no edema MARA BLOCK Nov 24, 2016 12:11
[2016-11-24 12:17] VITALS: BP 97/61
--- NOTE | 2016-11-24 14:46 | General Progress Note ---
Assessment/Plan Problem List: (1) Prerenal azotemia ICD Codes: R79.89 - Other specified abnormal findings of blood chemistry SNOMED: 711867612 (2) Anemia, chronic disease ICD Codes: D63.8 - Anemia in other chronic diseases classified elsewhere SNOMED: 724579493 (3) Sepsis ICD Codes: A41.9 - Sepsis, unspecified organism SNOMED: 74706580 Qualifiers: Qualified Codes: A41.9 - Sepsis, unspecified organism (4) UTI (urinary tract infection) ICD Codes: N39.0 - Urinary tract infection, site not specified SNOMED: 91667989 Qualifiers: Qualified Codes: N30.00 - Acute cystitis without hematuria (5) Tongue malignant neoplasm ICD Codes: C02.9 - Malignant neoplasm of tongue, unspecified SNOMED: 346223260 (6) Respiratory failure ICD Codes: J96.90 - Respiratory failure, unspecified, unspecified whether with hypoxia or hypercapnia SNOMED: 440509090 Qualifiers: Qualified Codes: J96.10 - Chronic respiratory failure, unspecified whether with hypoxia or hypercapnia Status: stable, progressing Assessment/Plan abx vent resp care gt feeds pt needs gt feeds for life. has chronic dysphagia due to tongue cancer. Pt needs a feeding pump for continuous feeds. cannot tolerate bolus feeds or gravity feeds due to vomiting and poor tolerance of bolus feeds in the past. dc planning home with vent when stable and dme arranged. family coming in for training social worker delinquency prevention and case management assisting dc planning to home when family ready and DME available Subjective ROS Limited/Unobtainable: No Constitutional: Reports: malaise, weakness HEENT: Reports: no symptoms Cardiovascular: Reports: no symptoms Respiratory: Reports: cough Gastrointestinal/Abdominal: Reports: difficulty swallowing Genitourinary: Reports: no symptoms Neurologic/Psychiatric: Reports: no symptoms Endocrine: Reports: no symptoms Hematologic/Lymphatic: Reports: no symptoms Allergies: Coded Allergies: PENICILLINS (Verified Allergy, Unknown, 07/31/16) All Systems: reviewed and negative except above Subjective no events. w/o complaints. no fever or chills. tolerating feeds. Objective Last 24 Hour Vital Signs Date Time Temp Pulse Resp B/P Pulse Ox O2 Delivery O2 Flow Rate FiO2 11/24/16 12:39 40 11/24/16 12:17 97.5 77 18 97/61 97 Mechanical Ventilator 11/24/16 12:00 64 11/24/16 10:49 80 18 40 11/24/16 10:01 65 11/24/16 09:12 75 14 40 11/24/16 09:00 40 11/24/16 08:00 68 11/24/16 07:48 97.6 74 18 91/52 98 Mechanical Ventilator 11/24/16 07:01 71 15 40 11/24/16 05:16 77 13 40 11/24/16 04:00 74 11/24/16 04:00 40 11/24/16 04:00 98.9 74 15 104/53 99 Mechanical Ventilator 40 11/24/16 03:16 75 15 40 11/24/16 01:34 73 13 40 11/24/16 00:00 98.7 78 19 128/59 97 Mechanical Ventilator 40 11/24/16 00:00 40 11/24/16 00:00 76 11/23/16 23:15 85 17 40 11/23/16 21:09 75 16 40 11/23/16 20:10 98.1 75 15 104/52 97 Mechanical Ventilator 40 11/23/16 20:00 40 11/23/16 20:00 77 11/23/16 19:18 77 20 40 11/23/16 16:54 93 19 40 11/23/16 16:00 69 11/23/16 16:00 97.7 70 17 98/53 98 Mechanical Ventilator 40 11/23/16 16:00 40 11/23/16 15:04 77 20 40 Intake and Output 11/23/16 11/24/16 19:00 07:00 Intake Total 630 ml 370 ml Output Total 550 ml 300 ml Balance 80 ml 70 ml Intake Free Water 150 ml Tube Feeding 480 ml 320 ml Other 50 ml Output Urine Total 550 ml 300 ml # Bowel Movements 2 Height (Feet): 5 Height (Inches): 3.00 Weight (Pounds): 116 Objective General Appearance: WD/WN, alert Neck: supple Cardiovascular: regular rhythm Respiratory/Chest: lungs clear, normal breath sounds, no respiratory distress Abdomen: normal bowel sounds, non tender, soft, no organomegaly Edema: no edema noted Arm (L), no edema noted Arm (R), no edema noted Leg (L), no edema noted Leg (R), no edema noted Pedal (L), no edema noted Pedal (R), no edema noted Generalized Neurologic: alert, responsive, normal mood/affect CHRISTINA HAMMOND Nov 24, 2016 14:46
[2016-11-24] MEDS: Acetaminophen 650mg/20.3ml GT PRN (15:08)
[2016-11-24 15:59] VITALS: BP 109/61
--- NOTE | 2016-11-24 18:00 | Progress Note ---
DATE: 11/24/2016 CARDIOLOGY PROGRESS NOTE SUBJECTIVE: The patient is remaining on ventilator support and family members are training for continuation at home. The patient has less congestion. Monitored rhythm is sinus. OBJECTIVE: VITAL SIGNS: Blood pressure ranging from 91/52 to 128/59. She is afebrile. HEENT: Trach with thin secretions. LUNGS: Bilateral breath sounds without wheezing. HEART: Regular rhythm and rate. Normal S1 and S2. ABDOMEN: Soft with G-tube intact. EXTREMITIES: Reveal muscle atrophy and trace dependent edema. LABORATORY DATA: Laboratories yesterday notable for albumin up to 3.1. BUN 26, creatinine 1, and magnesium 2.3. Pro-natriuretic peptide has decreased to 191. IMPRESSION: 1. Mildly prerenal with intravascular volume depletion. 2. Mild protein-calorie malnutrition with improving albumin level. 3. Ventilator-dependent respiratory failure. 4. Metastatic head and neck cancer. 5. Compensated diastolic dysfunction with no signs of congestive heart failure. PLAN: 1. Increase water by G-tube. 2. Other cardiovascular therapy without change. 3. Stable for discharge once home care arrangements completed. Chi Bhatti M.D. DR: DAVID JOB#: [id number] CC:
[2016-11-24 20:00] VITALS: BP 123/60
[2016-11-25] VITALS (8 sets, daily range): BP systolic 94–138; BP diastolic 51–79
[2016-11-25] MEDS: Ascorbic Acid 500mg tab NG SCH (09:00)
[2016-11-25] MEDS: Multivitamins W/Minerals 15 ML UDC NG SCH (09:38)
[2016-11-25] MEDS: Docusate 100mg/10ml Liq GT SCH (09:38)
[2016-11-25] MEDS: Furosemide 40mg tab GT SCH (09:38)
[2016-11-25] MEDS: Digoxin 0.125mg tab GT SCH (09:38)
[2016-11-25] MEDS: Heparin 5000 units/ml inj SUBQ SCH ×2 (09:40→20:53)
--- NOTE | 2016-11-25 10:07 | Pulmonology Progress Note ---
Assessment/Plan Assessment/Plan IMPRESSION: 1. Respiratory failure, chronic encephalopathy. 2. Left lung nodule metastatic 3. 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 4. Sepsis. 5. Tracheostomy G-tube. 6. Leukocytosis 7. History of Acute renal failure. 8. Lower extremity deep vein thrombosis per history. 9. Chronic encephalopathy PLAN exam overall reviewed and same care noted and reviewed respiratory care discharge planning to home when everything is set up consider hospice with metastatic cancer arranging home vent and back up vent will monitor for change impression, plan, and exam edited and reviewed in detail care discussed with RN Subjective ROS Limited/Unobtainable: Yes Allergies: Coded Allergies: PENICILLINS (Verified Allergy, Unknown, 07/31/16) Subjective care noted events reviewed forms filled out Objective Last 24 Hour Vital Signs Date Time Temp Pulse Resp B/P Pulse Ox O2 Delivery O2 Flow Rate FiO2 11/25/16 09:38 79 11/25/16 08:00 79 18 94/56 99 Room Air 11/25/16 07:05 93 14 40 11/25/16 04:00 84 11/25/16 04:00 40 11/25/16 04:00 97.6 100 18 102/57 100 11/25/16 03:14 85 14 40 11/25/16 00:00 97 11/25/16 00:00 40 11/25/16 00:00 98.5 104 16 105/65 98 11/24/16 23:11 105 15 40 11/24/16 21:17 84 15 40 11/24/16 20:00 87 11/24/16 20:00 98.8 88 20 123/60 100 11/24/16 20:00 40 11/24/16 19:00 87 14 40 11/24/16 17:23 83 18 40 11/24/16 16:00 63 11/24/16 16:00 40 11/24/16 15:59 97.5 78 18 109/61 97 Mechanical Ventilator 11/24/16 15:05 75 15 40 11/24/16 13:28 79 14 40 11/24/16 12:39 40 11/24/16 12:17 97.5 77 18 97/61 97 Mechanical Ventilator 11/24/16 12:00 64 11/24/16 10:49 80 18 40 Intake and Output 11/24/16 11/25/16 19:00 07:00 Intake Total 1120 ml 1000 ml Output Total 550 ml 450 ml Balance 570 ml 550 ml Intake Free Water 600 ml 600 ml Tube Feeding 80 ml 400 ml Other 440 ml Output Urine Total 550 ml 450 ml # Bowel Movements 5 3 Objective Sp02 EP Interpretation: reviewed, normal General Appearance: normal inspection, well appearing, no apparent distress, Head: normocephalic, atraumatic Eyes: bilateral eye normal inspection ENT: normal ENT inspection, Neck: normal inspection, no meningismus, carotid 2+ trach Respiratory: decreased breath sounds, without wheeze or rhonchi Cardiovascular #1: regular rate, rhythm, no murmur without MRG Gastrointestinal: non tender, soft, non-distended, no guarding, no rebound; GT Musculoskeletal: no CCE Neurologic: weak diffusely; awake; nonfocal reviewed and edited Current Medications Medications (Trade) Dose Ordered Sig/Josiah Route PRN Reason Start Time Stop Time Status Last Admin Dose Admin Acetaminophen (Tylenol) 650 mg Q4H PRN GT Pain Scale (3-5) 11/12/16 09:00 12/12/16 08:59 11/24/16 15:08 Amitriptyline HCl (Elavil) 10 mg BEDTIME GT 11/12/16 21:00 12/12/16 20:59 11/24/16 20:57 Ascorbic Acid (Vitamin C) 500 mg DAILY NG 11/25/16 09:00 12/25/16 08:59 11/25/16 09:00 Digoxin (Lanoxin) 0.125 mg DAILY GT 11/12/16 10:00 12/12/16 09:59 11/25/16 09:38 Docusate Sodium (Colace) 100 mg DAILY GT 11/12/16 10:00 12/12/16 09:59 11/25/16 09:38 Furosemide (Lasix) 40 mg DAILY GT 11/12/16 10:00 12/12/16 09:59 11/25/16 09:38 Heparin Sodium (Porcine) (Heparin 5000 units/ml) 5,000 units EVERY 12 HOURS SUBQ 11/12/16 10:00 12/12/16 09:59 11/25/16 09:40 Levofloxacin (Levaquin) 750 mg Q48H GT 11/22/16 14:00 11/28/16 23:59 11/24/16 15:09 Levothyroxine Sodium (Synthroid) 150 mcg ACBREAKFAST GT 11/14/16 06:30 12/14/16 06:29 11/25/16 06:13 Midodrine (Pro-Amatine) 5 mg THREE TIMES A DAY GT 11/13/16 13:00 12/13/16 12:59 11/25/16 09:38 Multivitamins (Multivitamins W/ Minerals 15ml Liquid) 15 ml DAILY NG 11/25/16 09:00 12/25/16 08:59 11/25/16 09:38 MARCY MAJOR Nov 25, 2016 10:07
--- NOTE | 2016-11-25 13:32 | General Progress Note ---
Assessment/Plan Problem List: (1) Prerenal azotemia ICD Codes: R79.89 - Other specified abnormal findings of blood chemistry SNOMED: 338176254 (2) Anemia, chronic disease ICD Codes: D63.8 - Anemia in other chronic diseases classified elsewhere SNOMED: 977156482 (3) Sepsis ICD Codes: A41.9 - Sepsis, unspecified organism SNOMED: 22011188 Qualifiers: Qualified Codes: A41.9 - Sepsis, unspecified organism (4) UTI (urinary tract infection) ICD Codes: N39.0 - Urinary tract infection, site not specified SNOMED: 61058683 Qualifiers: Qualified Codes: N30.00 - Acute cystitis without hematuria (5) Tongue malignant neoplasm ICD Codes: C02.9 - Malignant neoplasm of tongue, unspecified SNOMED: 726688380 (6) Respiratory failure ICD Codes: J96.90 - Respiratory failure, unspecified, unspecified whether with hypoxia or hypercapnia SNOMED: 306682133 Qualifiers: Qualified Codes: J96.10 - Chronic respiratory failure, unspecified whether with hypoxia or hypercapnia Status: stable, progressing Assessment/Plan abx vent resp care gt feeds pt needs gt feeds for life. has chronic dysphagia due to tongue cancer. Pt needs a feeding pump for continuous feeds. cannot tolerate bolus feeds or gravity feeds due to vomiting and poor tolerance of bolus feeds in the past. dc planning home with vent when stable and dme arranged. family coming in for training social insurance analyst and case management assisting dc planning to home when family ready and DME available Subjective ROS Limited/Unobtainable: No Constitutional: Reports: malaise, weakness HEENT: Reports: no symptoms Cardiovascular: Reports: no symptoms Respiratory: Reports: shortness of breath Gastrointestinal/Abdominal: Reports: difficulty swallowing Genitourinary: Reports: no symptoms Neurologic/Psychiatric: Reports: pre-existing deficit Endocrine: Reports: no symptoms Hematologic/Lymphatic: Reports: anemia Allergies: Coded Allergies: PENICILLINS (Verified Allergy, Unknown, 07/31/16) All Systems: reviewed and negative except above Subjective no events. w/o complaints. no fever or chills. tolerating feeds. Objective Last 24 Hour Vital Signs Date Time Temp Pulse Resp B/P Pulse Ox O2 Delivery O2 Flow Rate FiO2 11/25/16 13:16 86 17 40 11/25/16 12:00 40 11/25/16 12:00 97.5 84 18 95/51 98 Room Air 11/25/16 11:16 88 15 40 11/25/16 09:38 79 11/25/16 08:35 89 14 40 11/25/16 08:00 79 18 94/56 99 Room Air 11/25/16 08:00 40 11/25/16 08:00 85 11/25/16 07:05 93 14 40 11/25/16 04:00 84 11/25/16 04:00 40 11/25/16 04:00 97.6 100 18 102/57 100 11/25/16 03:14 85 14 40 11/25/16 00:00 97 11/25/16 00:00 40 11/25/16 00:00 98.5 104 16 105/65 98 11/24/16 23:11 105 15 40 11/24/16 21:17 84 15 40 11/24/16 20:00 87 11/24/16 20:00 98.8 88 20 123/60 100 11/24/16 20:00 40 11/24/16 19:00 87 14 40 11/24/16 17:23 83 18 40 11/24/16 16:00 63 11/24/16 16:00 40 11/24/16 15:59 97.5 78 18 109/61 97 Mechanical Ventilator 11/24/16 15:05 75 15 40 Intake and Output 11/24/16 11/25/16 19:00 07:00 Intake Total 1120 ml 1000 ml Output Total 550 ml 450 ml Balance 570 ml 550 ml Intake Free Water 600 ml 600 ml Tube Feeding 80 ml 400 ml Other 440 ml Output Urine Total 550 ml 450 ml # Bowel Movements 5 3 Height (Feet): 5 Height (Inches): 3.00 Weight (Pounds): 116 Objective General Appearance: WD/WN, alert Neck: supple Cardiovascular: regular rhythm Respiratory/Chest: lungs clear, normal breath sounds, no respiratory distress Abdomen: normal bowel sounds, non tender, soft, no organomegaly Edema: no edema noted Arm (L), no edema noted Arm (R), no edema noted Leg (L), no edema noted Leg (R), no edema noted Pedal (L), no edema noted Pedal (R), no edema noted Generalized Neurologic: alert, responsive, normal mood/affect CHRISTINA HAMMOND Nov 25, 2016 13:32
[2016-11-26 00:07] VITALS: BP 99/54
--- NOTE | 2016-11-26 02:15 | Progress Note ---
DATE: 11/25/2016 SUBJECTIVE: The patient is on ventilator support. Training to family is ongoing for home ventilator use. The patient is on a feeding pump. Monitored rhythm is sinus. OBJECTIVE: VITAL SIGNS: Blood pressure 95/51, pulse 84, respiratory rate 18, and she is afebrile. LUNGS: Clear. CARDIAC: Regular. Normal S1 and S2. ABDOMEN: Soft. EXTREMITIES: No edema. IMPRESSION: 1. Chronic low range blood pressure, on midodrine and hemodynamically stable. 2. Ventilator dependent respiratory failure. 3. Head and neck cancer. 4. Recovered sepsis with shock. PLAN: 1. Consider advancing midodrine if low episode. 2. Recheck chemistry panel. 3. Discontinue diuretic if signs of prerenal azotemia and hypovolemia are noted. Chi Bhatti M.D. DR: ALEENA JOB#: [id number] CC:
[2016-11-26 04:12] VITALS: BP 97/60
--- NOTE | 2016-11-26 07:54 | Infectious Diseases Prog Note ---
Assessment/Plan Assessment/Plan A 1. UTI s/p Rx 2. leucocytosis resolved 3. respiratory failure 4. HPN 5. tongue cancer 6. Pneumonia with pseudomonas s/p Rx 7. Diarrhea P 1.dis continue Levaquin Subjective ROS Limited/Unobtainable: Yes Allergies: Coded Allergies: PENICILLINS (Verified Allergy, Unknown, 07/31/16) Objective Vital Signs Last 24 Hour Vital Signs Date Time Temp Pulse Resp B/P Pulse Ox O2 Delivery O2 Flow Rate FiO2 11/26/16 07:37 40 11/26/16 07:05 96 19 40 11/26/16 05:11 99 13 40 11/26/16 04:12 96.8 93 21 97/60 96 Endotracheal Tube 11/26/16 04:00 40 11/26/16 04:00 95 11/26/16 03:01 94 12 40 11/26/16 01:15 95 12 40 11/26/16 00:07 97.7 95 21 99/54 96 Endotracheal Tube 11/26/16 00:00 40 11/26/16 00:00 97 11/25/16 23:29 93 16 40 11/25/16 21:49 97.1 71 22 137/71 93 Endotracheal Tube 11/25/16 21:25 98 16 40 11/25/16 21:19 96.5 100 21 130/79 96 Mechanical Ventilator 11/25/16 20:00 96.8 71 21 138/71 95 Endotracheal Tube 11/25/16 20:00 40 11/25/16 20:00 88 11/25/16 18:48 96 15 40 11/25/16 17:17 100 20 40 11/25/16 16:00 40 11/25/16 16:00 90 11/25/16 16:00 97.3 93 18 97/54 98 Room Air 11/25/16 15:11 91 12 40 11/25/16 13:16 86 17 40 11/25/16 12:00 40 11/25/16 12:00 97.5 84 18 95/51 98 Room Air 11/25/16 12:00 84 11/25/16 11:16 88 15 40 11/25/16 09:38 79 11/25/16 08:35 89 14 40 11/25/16 08:00 79 18 94/56 99 Room Air 11/25/16 08:00 40 11/25/16 08:00 85 Height (Feet): 5 Height (Inches): 3.00 Weight (Pounds): 116 General Appearance: no acute distress HEENT: status post trach Respiratory/Chest: lungs clear, other - on ventilator Cardiovascular: normal rate Abdomen: soft, non tender, other - Gt feeding Neurologic/Psychiatric: alert, responsive Current Medications Medications (Trade) Dose Ordered Sig/Josiah Route PRN Reason Start Time Stop Time Status Last Admin Dose Admin Acetaminophen (Tylenol) 650 mg Q4H PRN GT Pain Scale (3-5) 11/12/16 09:00 12/12/16 08:59 11/24/16 15:08 Amitriptyline HCl (Elavil) 10 mg BEDTIME GT 11/12/16 21:00 12/12/16 20:59 11/25/16 20:54 Ascorbic Acid (Vitamin C) 500 mg DAILY NG 11/25/16 09:00 12/25/16 08:59 11/25/16 09:00 Digoxin (Lanoxin) 0.125 mg DAILY GT 11/12/16 10:00 12/12/16 09:59 11/25/16 09:38 Docusate Sodium (Colace) 100 mg DAILY GT 11/12/16 10:00 12/12/16 09:59 11/25/16 09:38 Furosemide (Lasix) 40 mg DAILY GT 11/12/16 10:00 12/12/16 09:59 11/25/16 09:38 Heparin Sodium (Porcine) (Heparin 5000 units/ml) 5,000 units EVERY 12 HOURS SUBQ 11/12/16 10:00 12/12/16 09:59 11/25/16 20:53 Levofloxacin (Levaquin) 750 mg Q48H GT 11/22/16 14:00 11/28/16 23:59 11/24/16 15:09 Levothyroxine Sodium (Synthroid) 150 mcg ACBREAKFAST GT 11/14/16 06:30 12/14/16 06:29 11/26/16 06:02 Midodrine (Pro-Amatine) 5 mg THREE TIMES A DAY GT 11/13/16 13:00 12/13/16 12:59 11/25/16 17:27 Multivitamins (Multivitamins W/ Minerals 15ml Liquid) 15 ml DAILY NG 11/25/16 09:00 12/25/16 08:59 11/25/16 09:38 JENNIFER MCKEE Nov 26, 2016 07:54
[2016-11-26] MEDS: Docusate 100mg/10ml Liq GT SCH (07:56)
[2016-11-26 08:15] VITALS: BP 95/67
[2016-11-26] MEDS: Ascorbic Acid 500mg tab NG SCH (08:36)
[2016-11-26] MEDS: Furosemide 40mg tab GT SCH (08:36)
[2016-11-26] MEDS: Multivitamins W/Minerals 15 ML UDC NG SCH (08:36)
[2016-11-26] MEDS: Digoxin 0.125mg tab GT SCH (08:36)
[2016-11-26] MEDS: Heparin 5000 units/ml inj SUBQ SCH ×2 (08:37→20:47)
--- NOTE | 2016-11-26 08:57 | General Progress Note ---
Assessment/Plan Problem List: (1) Prerenal azotemia ICD Codes: R79.89 - Other specified abnormal findings of blood chemistry SNOMED: 533126434 (2) Anemia, chronic disease ICD Codes: D63.8 - Anemia in other chronic diseases classified elsewhere SNOMED: 194643321 (3) Sepsis ICD Codes: A41.9 - Sepsis, unspecified organism SNOMED: 95526991 Qualifiers: Qualified Codes: A41.9 - Sepsis, unspecified organism (4) UTI (urinary tract infection) ICD Codes: N39.0 - Urinary tract infection, site not specified SNOMED: 98295784 Qualifiers: Qualified Codes: N30.00 - Acute cystitis without hematuria (5) Tongue malignant neoplasm ICD Codes: C02.9 - Malignant neoplasm of tongue, unspecified SNOMED: 815661211 (6) Respiratory failure ICD Codes: J96.90 - Respiratory failure, unspecified, unspecified whether with hypoxia or hypercapnia SNOMED: 965068053 Qualifiers: Qualified Codes: J96.10 - Chronic respiratory failure, unspecified whether with hypoxia or hypercapnia Assessment/Plan abx vent resp care gt feeds pt needs gt feeds for life. has chronic dysphagia due to tongue cancer. Pt needs a feeding pump for continuous feeds. cannot tolerate bolus feeds or gravity feeds due to vomiting and poor tolerance of bolus feeds in the past. dc planning home with vent when stable and dme arranged. family coming in for training social studies teacher and case management assisting dc planning to home when family ready and DME available Subjective ROS Limited/Unobtainable: No Constitutional: Reports: malaise, weakness HEENT: Reports: no symptoms Cardiovascular: Reports: no symptoms Respiratory: Reports: cough Gastrointestinal/Abdominal: Reports: difficulty swallowing Genitourinary: Reports: no symptoms Neurologic/Psychiatric: Reports: no symptoms Endocrine: Reports: no symptoms Hematologic/Lymphatic: Reports: anemia Allergies: Coded Allergies: PENICILLINS (Verified Allergy, Unknown, 07/31/16) All Systems: reviewed and negative except above Subjective no events. w/o complaints. no fever or chills. tolerating feeds. Objective Last 24 Hour Vital Signs Date Time Temp Pulse Resp B/P Pulse Ox O2 Delivery O2 Flow Rate FiO2 11/26/16 08:36 82 11/26/16 08:15 96.6 88 17 95/67 98 Endotracheal Tube 40 11/26/16 07:37 40 11/26/16 07:05 96 19 40 11/26/16 05:11 99 13 40 11/26/16 04:12 96.8 93 21 97/60 96 Endotracheal Tube 11/26/16 04:00 40 11/26/16 04:00 95 11/26/16 03:01 94 12 40 11/26/16 01:15 95 12 40 11/26/16 00:07 97.7 95 21 99/54 96 Endotracheal Tube 11/26/16 00:00 40 11/26/16 00:00 97 11/25/16 23:29 93 16 40 11/25/16 21:49 97.1 71 22 137/71 93 Endotracheal Tube 11/25/16 21:25 98 16 40 11/25/16 21:19 96.5 100 21 130/79 96 Mechanical Ventilator 11/25/16 20:00 96.8 71 21 138/71 95 Endotracheal Tube 11/25/16 20:00 40 11/25/16 20:00 88 11/25/16 18:48 96 15 40 11/25/16 17:17 100 20 40 11/25/16 16:00 40 11/25/16 16:00 90 11/25/16 16:00 97.3 93 18 97/54 98 Room Air 11/25/16 15:11 91 12 40 11/25/16 13:16 86 17 40 11/25/16 12:00 40 11/25/16 12:00 97.5 84 18 95/51 98 Room Air 11/25/16 12:00 84 11/25/16 11:16 88 15 40 11/25/16 09:38 79 Intake and Output 11/25/16 11/26/16 19:00 07:00 Intake Total 715 ml 1200 ml Output Total 700 ml Balance 15 ml 1200 ml Intake Free Water 200 ml 800 ml Tube Feeding 440 ml 400 ml Other 75 ml Output Urine Total 700 ml # Bowel Movements 6 6 Height (Feet): 5 Height (Inches): 3.00 Weight (Pounds): 116 Objective General Appearance: WD/WN, alert Neck: supple Cardiovascular: regular rhythm Respiratory/Chest: lungs clear, normal breath sounds, no respiratory distress Abdomen: normal bowel sounds, non tender, soft, no organomegaly Edema: no edema noted Arm (L), no edema noted Arm (R), no edema noted Leg (L), no edema noted Leg (R), no edema noted Pedal (L), no edema noted Pedal (R), no edema noted Generalized Neurologic: alert, responsive, normal mood/affect CHRISTINA HAMMOND Nov 26, 2016 08:57
[2016-11-26] MEDS ORDERED: NS 275ml ONE (09:38)
[2016-11-26 11:51] LABS: EOSINOPHILS % (AUTO) 4.1 % (0.0-3.0); LYMPHOCYTES % (AUTO) 18.3 % (20.0-45.0); MEAN CORPUSCULAR HEMOGLOBIN 30.8 PG (27.0-31.0); MEAN CORPUSCULAR HGB CONC 32.4 G/DL (32.0-36.0); MEAN CORPUSCULAR VOLUME 95 FL (80-99); MEAN PLATELET VOLUME 6.4 FL (6.5-10.1); MONOCYTES % (AUTO) 10.5 % (1.0-10.0); NEUTROPHILS % (AUTO) 66.1 % (45.0-75.0); PLATELET COUNT 287 K/UL (150-450); RED BLOOD COUNT 4.24 M/UL (4.20-5.40); RED CELL DISTRIBUTION WIDTH 12.7 % (11.6-14.8); WHITE BLOOD COUNT 10.1 K/UL (4.8-10.8)
[2016-11-26 11:52] VITALS: BP 113/61
[2016-11-26 12:42] LABS: ALANINE AMINOTRANSFERASE 8 U/L (3-33); ALBUMIN/GLOBULIN RATIO 0.7 (1.0-2.7); ANION GAP 15 (5-15); ASPARTATE AMINO TRANSFERASE 18 U/L (5-40); CALCIUM 9.7 mg/dL (8.6-10.2); CARBON DIOXIDE 32 mEQ/L (20-30); CHLORIDE 91 mEQ/L (98-107); CREATININE 0.9 mg/dL (0.5-0.9); HEMOLYSIS 1; MAGNESIUM 2.4 mg/dL (1.7-2.5); POTASSIUM 3.8 mEQ/L (3.4-4.9); SODIUM 138 mEQ/L (135-145); TOTAL PROTEIN 7.5 g/dL (6.6-8.7)
--- NOTE | 2016-11-26 14:43 | Pulmonology Progress Note ---
Assessment/Plan Assessment/Plan IMPRESSION: 1. Respiratory failure, chronic encephalopathy. 2. Left lung nodule metastatic 3. 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 4. Sepsis. 5. Tracheostomy G-tube. 6. Leukocytosis 7. History of Acute renal failure. 8. Lower extremity deep vein thrombosis per history. 9. Chronic encephalopathy PLAN exam overall reviewed and same care noted and reviewed respiratory care no change maintain setting as is discharge planning to home when everything is set up consider hospice with metastatic cancer arranging home vent and back up vent will monitor for change and await set up impression, plan, and exam edited and reviewed in detail care discussed with RN Subjective ROS Limited/Unobtainable: Yes Allergies: Coded Allergies: PENICILLINS (Verified Allergy, Unknown, 07/31/16) Subjective care noted events reviewed forms filled out Objective Last 24 Hour Vital Signs Date Time Temp Pulse Resp B/P Pulse Ox O2 Delivery O2 Flow Rate FiO2 11/26/16 12:38 84 16 40 11/26/16 12:03 40 11/26/16 11:52 97.2 79 18 113/61 99 Endotracheal Tube 40 11/26/16 10:38 92 19 40 11/26/16 09:08 91 20 40 11/26/16 08:36 82 11/26/16 08:15 96.6 88 17 95/67 98 Endotracheal Tube 40 11/26/16 07:37 40 11/26/16 07:05 96 19 40 11/26/16 05:11 99 13 40 11/26/16 04:12 96.8 93 21 97/60 96 Endotracheal Tube 11/26/16 04:00 40 11/26/16 04:00 95 11/26/16 03:01 94 12 40 11/26/16 01:15 95 12 40 11/26/16 00:07 97.7 95 21 99/54 96 Endotracheal Tube 11/26/16 00:00 40 11/26/16 00:00 97 11/25/16 23:29 93 16 40 11/25/16 21:49 97.1 71 22 137/71 93 Endotracheal Tube 11/25/16 21:25 98 16 40 11/25/16 21:19 96.5 100 21 130/79 96 Mechanical Ventilator 11/25/16 20:00 96.8 71 21 138/71 95 Endotracheal Tube 11/25/16 20:00 40 11/25/16 20:00 88 11/25/16 18:48 96 15 40 11/25/16 17:17 100 20 40 11/25/16 16:00 40 11/25/16 16:00 90 11/25/16 16:00 97.3 93 18 97/54 98 Room Air 11/25/16 15:11 91 12 40 Intake and Output 11/25/16 11/26/16 19:00 07:00 Intake Total 715 ml 1200 ml Output Total 700 ml Balance 15 ml 1200 ml Intake Free Water 200 ml 800 ml Tube Feeding 440 ml 400 ml Other 75 ml Output Urine Total 700 ml # Bowel Movements 6 6 Objective Sp02 EP Interpretation: reviewed, normal General Appearance: normal inspection, well appearing, no apparent distress, Head: normocephalic, atraumatic Eyes: bilateral eye normal inspection ENT: normal ENT inspection, Neck: normal inspection, no meningismus, carotid 2+ trach Respiratory: decreased breath sounds, without wheeze or rhonchi Cardiovascular #1: regular rate, rhythm, no murmur without MRG Gastrointestinal: non tender, soft, non-distended, no guarding, no rebound; GT Musculoskeletal: no CCE Neurologic: weak diffusely; awake; nonfocal reviewed and edited Laboratory Tests 11/26/16 10:45: White Blood Count 10.1, Red Blood Count 4.24, Hemoglobin 13.1, Hematocrit 40.3, Mean Corpuscular Volume 95, Mean Corpuscular Hemoglobin 30.8, Mean Corpuscular Hemoglobin Concent 32.4, Red Cell Distribution Width 12.7, Platelet Count 287, Mean Platelet Volume 6.4L, Neutrophils (%) (Auto) 66.1, Lymphocytes (%) (Auto) 18.3L, Monocytes (%) (Auto) 10.5H, Eosinophils (%) (Auto) 4.1H, Basophils (%) ( Auto) 1.0, Sodium Level 138, Potassium Level 3.8, Chloride Level 91L, Carbon Dioxide Level 32H, Anion Gap 15, Blood Urea Nitrogen 32H, Creatinine 0.9, Estimat Glomerular Filtration Rate , Glucose Level 102, Calcium Level 9.7, Magnesium Level 2.4, Total Bilirubin 0.4, Aspartate Amino Transf (AST/SGOT) 18, Alanine Aminotransferase (ALT/SGPT) 8, Alkaline Phosphatase 85, Pro-B-Type Natriuretic Peptide 279, Total Protein 7.5, Albumin 3.3L, Globulin 4.2, Albumin/ Globulin Ratio 0.7L Current Medications Medications (Trade) Dose Ordered Sig/Josiah Route PRN Reason Start Time Stop Time Status Last Admin Dose Admin Acetaminophen (Tylenol) 650 mg Q4H PRN GT Pain Scale (3-5) 11/12/16 09:00 12/12/16 08:59 11/24/16 15:08 Amitriptyline HCl (Elavil) 10 mg BEDTIME GT 11/12/16 21:00 12/12/16 20:59 11/25/16 20:54 Ascorbic Acid (Vitamin C) 500 mg DAILY NG 11/25/16 09:00 12/25/16 08:59 11/26/16 08:36 Digoxin (Lanoxin) 0.125 mg DAILY GT 11/12/16 10:00 12/12/16 09:59 11/26/16 08:36 Docusate Sodium (Colace) 100 mg DAILY GT 11/12/16 10:00 12/12/16 09:59 11/25/16 09:38 Furosemide (Lasix) 40 mg DAILY GT 11/12/16 10:00 12/12/16 09:59 11/26/16 08:36 Heparin Sodium (Porcine) (Heparin 5000 units/ml) 5,000 units EVERY 12 HOURS SUBQ 11/12/16 10:00 12/12/16 09:59 11/26/16 08:37 Levothyroxine Sodium (Synthroid) 150 mcg ACBREAKFAST GT 11/14/16 06:30 12/14/16 06:29 11/26/16 06:02 Midodrine (Pro-Amatine) 5 mg THREE TIMES A DAY GT 11/13/16 13:00 12/13/16 12:59 11/26/16 12:26 Multivitamins (Multivitamins W/ Minerals 15ml Liquid) 15 ml DAILY NG 11/25/16 09:00 12/25/16 08:59 11/26/16 08:36 MARCY MAJOR Nov 26, 2016 14:43
[2016-11-26 15:58] VITALS: BP 116/67
[2016-11-26 20:00] VITALS: BP 118/74
--- NOTE | 2016-11-26 22:15 | Progress Note ---
DATE: 11/26/2016 CARDIOLOGY PROGRESS NOTE SUBJECTIVE: family members continue training for ventilator management at home. The patient is on full ventilator support via tracheostomy. The patient is receiving feedings by G-tube. The patient has chronic low range blood pressure and is on midodrine. Monitored rhythm sinus. PHYSICAL EXAMINATION: VITAL SIGNS: Blood pressure 116/67, pulse 83, respirations 18, and afebrile. LUNGS: Few rhonchi. HEART: Regular rhythm and rate. Normal S1 and S2. ABDOMEN: Soft. EXTREMITIES: No edema. Muscle atrophy. LABORATORY AND DIAGNOSTIC DATA: White count 10 and hemoglobin 13. Potassium 3.8. Albumin 3.3. BUN 32 and creatinine 0.9. IMPRESSION: 1. Contraction alkalosis. 2. Prerenal azotemia. 3. Paroxysmal atrial fibrillation. 4. Mild protein-calorie malnutrition. 5. Ventilator-dependent respiratory failure. 6. Metastatic head and neck cancer. PLAN: 1. Discontinue diuretics. 2. Digoxin for prophylaxis against rapid atrial tachyarrhythmias. 3. Titrate midodrine for low range blood pressure management. Chi Bhatti M.D. DR: MYRNA JOB#: [id number] CC:
[2016-11-27] VITALS: BP_SYST 112; BP_SYST 116; BP_DIAS 68; BP_DIAS 75
[2016-11-27 04:00] VITALS: BP 118/82
[2016-11-27 07:45] VITALS: BP 114/55
--- NOTE | 2016-11-27 08:47 | Pulmonology Progress Note ---
Assessment/Plan Assessment/Plan IMPRESSION: 1. Respiratory failure, chronic encephalopathy. 2. Left lung nodule metastatic 3. 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 4. Sepsis. 5. Tracheostomy G-tube. 6. Leukocytosis 7. History of Acute renal failure. 8. Lower extremity deep vein thrombosis per history. 9. Chronic encephalopathy PLAN exam overall reviewed and same from yesterday care noted and reviewed respiratory care no change maintain setting as is and no need to wean at present discharge planning to home when everything is set up consider hospice with metastatic cancer arranging home vent and back up vent will monitor for change and await set up will need full care at home impression, plan, and exam edited and reviewed in detail care discussed with RN Subjective ROS Limited/Unobtainable: Yes Allergies: Coded Allergies: PENICILLINS (Verified Allergy, Unknown, 07/31/16) Subjective care noted events reviewed forms filled out for discharge to home Objective Last 24 Hour Vital Signs Date Time Temp Pulse Resp B/P Pulse Ox O2 Delivery O2 Flow Rate FiO2 11/27/16 07:45 97.5 87 12 114/55 99 Trach Collar 40 11/27/16 07:29 91 12 40 11/27/16 05:29 86 13 40 11/27/16 04:00 40 11/27/16 04:00 97.8 79 17 118/82 100 Endotracheal Tube 40 11/27/16 04:00 83 11/27/16 03:20 82 12 40 11/27/16 01:29 84 12 40 11/27/16 00:00 84 11/27/16 00:00 98.1 81 16 112/68 99 Endotracheal Tube 40 11/27/16 00:00 98.7 88 16 116/75 99 Endotracheal Tube 40 11/27/16 00:00 40 11/26/16 22:58 89 13 40 11/26/16 20:32 80 16 40 11/26/16 20:00 84 11/26/16 20:00 97.7 78 16 118/74 99 Endotracheal Tube 40 11/26/16 20:00 40 11/26/16 19:09 78 16 40 11/26/16 16:52 85 16 40 11/26/16 16:00 40 11/26/16 15:58 96.4 83 18 116/67 97 Endotracheal Tube 40 11/26/16 14:45 86 15 40 11/26/16 12:38 84 16 40 11/26/16 12:03 40 11/26/16 11:52 97.2 79 18 113/61 99 Endotracheal Tube 40 11/26/16 10:38 92 19 40 11/26/16 09:08 91 20 40 Intake and Output 11/26/16 11/27/16 19:00 07:00 Intake Total 1160 ml 1000 ml Output Total 410 ml 225 ml Balance 750 ml 775 ml Intake Free Water 600 ml 600 ml Tube Feeding 80 ml 400 ml Other 480 ml Output Urine Total 410 ml 225 ml # Voids 2 # Bowel Movements 1 Objective Sp02 EP Interpretation: reviewed, normal General Appearance: normal inspection, well appearing, no apparent distress, Head: normocephalic, atraumatic Eyes: bilateral eye normal inspection ENT: normal ENT inspection, Neck: normal inspection, no meningismus, carotid 2+ trach Respiratory: decreased breath sounds, without wheeze or rhonchi Cardiovascular #1: regular rate, rhythm, no murmur without MRG Gastrointestinal: non tender, soft, non-distended, no guarding, no rebound; GT Musculoskeletal: no CCE Neurologic: weak diffusely; awake; nonfocal reviewed and edited Laboratory Tests 11/26/16 10:45: White Blood Count 10.1, Red Blood Count 4.24, Hemoglobin 13.1, Hematocrit 40.3, Mean Corpuscular Volume 95, Mean Corpuscular Hemoglobin 30.8, Mean Corpuscular Hemoglobin Concent 32.4, Red Cell Distribution Width 12.7, Platelet Count 287, Mean Platelet Volume 6.4L, Neutrophils (%) (Auto) 66.1, Lymphocytes (%) (Auto) 18.3L, Monocytes (%) (Auto) 10.5H, Eosinophils (%) (Auto) 4.1H, Basophils (%) ( Auto) 1.0, Sodium Level 138, Potassium Level 3.8, Chloride Level 91L, Carbon Dioxide Level 32H, Anion Gap 15, Blood Urea Nitrogen 32H, Creatinine 0.9, Estimat Glomerular Filtration Rate , Glucose Level 102, Calcium Level 9.7, Magnesium Level 2.4, Total Bilirubin 0.4, Aspartate Amino Transf (AST/SGOT) 18, Alanine Aminotransferase (ALT/SGPT) 8, Alkaline Phosphatase 85, Pro-B-Type Natriuretic Peptide 279, Total Protein 7.5, Albumin 3.3L, Globulin 4.2, Albumin/ Globulin Ratio 0.7L Current Medications Medications (Trade) Dose Ordered Sig/Josiah Route PRN Reason Start Time Stop Time Status Last Admin Dose Admin Acetaminophen (Tylenol) 650 mg Q4H PRN GT Pain Scale (3-5) 11/12/16 09:00 12/12/16 08:59 11/24/16 15:08 Amitriptyline HCl (Elavil) 10 mg BEDTIME GT 11/12/16 21:00 12/12/16 20:59 11/26/16 20:46 Ascorbic Acid (Vitamin C) 500 mg DAILY NG 11/25/16 09:00 12/25/16 08:59 11/26/16 08:36 Digoxin (Lanoxin) 0.125 mg DAILY GT 11/12/16 10:00 12/12/16 09:59 11/26/16 08:36 Docusate Sodium (Colace) 100 mg DAILY GT 11/12/16 10:00 12/12/16 09:59 11/25/16 09:38 Heparin Sodium (Porcine) (Heparin 5000 units/ml) 5,000 units EVERY 12 HOURS SUBQ 11/12/16 10:00 12/12/16 09:59 11/26/16 20:47 Levothyroxine Sodium (Synthroid) 150 mcg ACBREAKFAST GT 11/14/16 06:30 12/14/16 06:29 11/27/16 06:07 Midodrine (Pro-Amatine) 5 mg THREE TIMES A DAY GT 11/13/16 13:00 12/13/16 12:59 11/26/16 18:04 Multivitamins (Multivitamins W/ Minerals 15ml Liquid) 15 ml DAILY NG 11/25/16 09:00 12/25/16 08:59 11/26/16 08:36 MARCY MAJOR Nov 27, 2016 08:47
--- NOTE | 2016-11-27 09:08 | Infectious Diseases Prog Note ---
Assessment/Plan Assessment/Plan A 1. UTI s/p Rx 2. leucocytosis resolved 3. respiratory failure 4. HPN 5. tongue cancer 6. Pneumonia with pseudomonas s/p Rx 7. Diarrhea P 1.observe off antibiotic Subjective ROS Limited/Unobtainable: Yes Allergies: Coded Allergies: PENICILLINS (Verified Allergy, Unknown, 07/31/16) Objective Vital Signs Last 24 Hour Vital Signs Date Time Temp Pulse Resp B/P Pulse Ox O2 Delivery O2 Flow Rate FiO2 11/27/16 07:45 97.5 87 12 114/55 99 Trach Collar 40 11/27/16 07:29 91 12 40 11/27/16 05:29 86 13 40 11/27/16 04:00 40 11/27/16 04:00 97.8 79 17 118/82 100 Endotracheal Tube 40 11/27/16 04:00 83 11/27/16 03:20 82 12 40 11/27/16 01:29 84 12 40 11/27/16 00:00 84 11/27/16 00:00 98.1 81 16 112/68 99 Endotracheal Tube 40 11/27/16 00:00 98.7 88 16 116/75 99 Endotracheal Tube 40 11/27/16 00:00 40 11/26/16 22:58 89 13 40 11/26/16 20:32 80 16 40 11/26/16 20:00 84 11/26/16 20:00 97.7 78 16 118/74 99 Endotracheal Tube 40 11/26/16 20:00 40 11/26/16 19:09 78 16 40 11/26/16 16:52 85 16 40 11/26/16 16:00 40 11/26/16 15:58 96.4 83 18 116/67 97 Endotracheal Tube 40 11/26/16 14:45 86 15 40 11/26/16 12:38 84 16 40 11/26/16 12:03 40 11/26/16 11:52 97.2 79 18 113/61 99 Endotracheal Tube 40 11/26/16 10:38 92 19 40 11/26/16 09:08 91 20 40 Height (Feet): 5 Height (Inches): 3.00 Weight (Pounds): 116 General Appearance: no acute distress HEENT: status post trach Respiratory/Chest: lungs clear, other - on ventilator Cardiovascular: normal rate Abdomen: normal bowel sounds, other - GT feeding Extremities: no edema Neurologic/Psychiatric: alert, responsive Laboratory Tests Test 11/26/16 10:45 White Blood Count 10.1 K/UL (4.8-10.8) Red Blood Count 4.24 M/UL (4.20-5.40) Hemoglobin 13.1 G/DL (12.0-16.0) Hematocrit 40.3 % (37.0-47.0) Mean Corpuscular Volume 95 FL (80-99) Mean Corpuscular Hemoglobin 30.8 PG (27.0-31.0) Mean Corpuscular Hemoglobin Concent 32.4 G/DL (32.0-36.0) Red Cell Distribution Width 12.7 % (11.6-14.8) Platelet Count 287 K/UL (150-450) Mean Platelet Volume 6.4 FL (6.5-10.1) L Neutrophils (%) (Auto) 66.1 % (45.0-75.0) Lymphocytes (%) (Auto) 18.3 % (20.0-45.0) L Monocytes (%) (Auto) 10.5 % (1.0-10.0) H Eosinophils (%) (Auto) 4.1 % (0.0-3.0) H Basophils (%) (Auto) 1.0 % (0.0-2.0) Sodium Level 138 mEQ/L (135-145) Potassium Level 3.8 mEQ/L (3.4-4.9) Chloride Level 91 mEQ/L (98-107) L Carbon Dioxide Level 32 mEQ/L (20-30) H Anion Gap 15 (5-15) Blood Urea Nitrogen 32 mg/dL (7-23) H Creatinine 0.9 mg/dL (0.5-0.9) Estimat Glomerular Filtration Rate mL/min (>60) Glucose Level 102 mg/dL (74-106) Calcium Level 9.7 mg/dL (8.6-10.2) Magnesium Level 2.4 mg/dL (1.7-2.5) Total Bilirubin 0.4 mg/dL (0.0-1.2) Aspartate Amino Transf (AST/SGOT) 18 U/L (5-40) Alanine Aminotransferase (ALT/SGPT) 8 U/L (3-33) Alkaline Phosphatase 85 U/L (35-104) Pro-B-Type Natriuretic Peptide 279 pg/mL (0-450) Total Protein 7.5 g/dL (6.6-8.7) Albumin 3.3 g/dL (3.5-5.2) L Globulin 4.2 g/dL Albumin/Globulin Ratio 0.7 (1.0-2.7) L Current Medications Medications (Trade) Dose Ordered Sig/Josiah Route PRN Reason Start Time Stop Time Status Last Admin Dose Admin Acetaminophen (Tylenol) 650 mg Q4H PRN GT Pain Scale (3-5) 11/12/16 09:00 12/12/16 08:59 11/24/16 15:08 Amitriptyline HCl (Elavil) 10 mg BEDTIME GT 11/12/16 21:00 12/12/16 20:59 11/26/16 20:46 Ascorbic Acid (Vitamin C) 500 mg DAILY NG 11/25/16 09:00 12/25/16 08:59 11/26/16 08:36 Digoxin (Lanoxin) 0.125 mg DAILY GT 11/12/16 10:00 12/12/16 09:59 11/26/16 08:36 Docusate Sodium (Colace) 100 mg DAILY GT 11/12/16 10:00 12/12/16 09:59 11/25/16 09:38 Heparin Sodium (Porcine) (Heparin 5000 units/ml) 5,000 units EVERY 12 HOURS SUBQ 11/12/16 10:00 12/12/16 09:59 11/26/16 20:47 Levothyroxine Sodium (Synthroid) 150 mcg ACBREAKFAST GT 11/14/16 06:30 12/14/16 06:29 11/27/16 06:07 Midodrine (Pro-Amatine) 5 mg THREE TIMES A DAY GT 11/13/16 13:00 12/13/16 12:59 11/26/16 18:04 Multivitamins (Multivitamins W/ Minerals 15ml Liquid) 15 ml DAILY NG 11/25/16 09:00 12/25/16 08:59 11/26/16 08:36 JENNIFER MCKEE Nov 27, 2016 09:08
[2016-11-27] MEDS: Multivitamins W/Minerals 15 ML UDC NG SCH (09:21)
[2016-11-27] MEDS: Docusate 100mg/10ml Liq GT SCH (09:21)
[2016-11-27] MEDS: Digoxin 0.125mg tab GT SCH (09:22)
[2016-11-27] MEDS: Ascorbic Acid 500mg tab NG SCH (09:22)
[2016-11-27] MEDS: Heparin 5000 units/ml inj SUBQ SCH ×2 (09:26→20:30)
[2016-11-27 11:43] VITALS: BP 112/59
[2016-11-27 15:32] VITALS: BP 106/54
[2016-11-27 20:22] VITALS: BP 113/67
--- NOTE | 2016-11-27 23:31 | Progress Note ---
DATE: 11/27/2016 CARDIOLOGY PROGRESS NOTE SUBJECTIVE: Status unchanged. The patient on ventilator support. Discharge planning in progress. Monitor sinus rhythm. OBJECTIVE: VITAL SIGNS: Blood pressure 114/56, pulse 87, respiratory 12. NECK: Supple. LUNGS: Clear. CARDIAC: Regular rhythm rate. Normal S1 and S2. ABDOMEN: Soft. G-tube intact. No edema. LABORATORY AND DIAGNOSTIC DATA: Labs noted and stable from cardiovascular standpoint. Would consider tapering off midodrine if blood pressure parameters remain in this range. We will follow as needed during this hospital stay. Chi Bhatti M.D. DR: MYRNA JOB#: [id number] CC:
[2016-11-28] VITALS: BP 104/57
[2016-11-28 04:00] VITALS: BP 96/49
[2016-11-28 08:00] VITALS: BP 100/60
--- NOTE | 2016-11-28 08:11 | Pulmonology Progress Note ---
Assessment/Plan Assessment/Plan IMPRESSION: 1. Respiratory failure, chronic encephalopathy. 2. Left lung nodule metastatic 3. 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 metastatic 4. Sepsis. 5. Tracheostomy G-tube. 6. Leukocytosis 7. History of Acute renal failure. 8. Lower extremity deep vein thrombosis per history. 9. Chronic encephalopathy PLAN exam reviewed and same from yesterday care noted and reviewed respiratory care no change no need to wean at present discharge planning to home when everything is set up arranging home vent and back up vent await set up will need full care at home impression, plan, and exam edited and reviewed in detail care discussed with RN Subjective ROS Limited/Unobtainable: Yes Allergies: Coded Allergies: PENICILLINS (Verified Allergy, Unknown, 07/31/16) Subjective care noted events reviewed forms filled out Objective Last 24 Hour Vital Signs Date Time Temp Pulse Resp B/P Pulse Ox O2 Delivery O2 Flow Rate FiO2 11/28/16 07:19 85 12 40 11/28/16 05:10 91 22 40 11/28/16 04:00 40 11/28/16 04:00 79 11/28/16 04:00 98.9 80 20 96/49 100 Mechanical Ventilator 40 11/28/16 03:10 84 14 40 11/28/16 01:23 92 17 40 11/28/16 00:00 79 11/28/16 00:00 99.1 79 20 104/57 100 Mechanical Ventilator 40 11/28/16 00:00 40 11/27/16 23:07 84 16 40 11/27/16 21:38 85 19 40 11/27/16 20:22 97.1 81 20 113/67 100 Mechanical Ventilator 40 11/27/16 20:00 40 11/27/16 20:00 81 11/27/16 19:41 81 20 40 11/27/16 16:55 73 20 40 11/27/16 16:00 87 11/27/16 16:00 40 11/27/16 15:32 97.5 84 12 106/54 99 Mechanical Ventilator 40 11/27/16 14:51 79 13 40 11/27/16 12:41 78 24 40 11/27/16 12:10 40 11/27/16 12:00 84 11/27/16 11:43 97.5 82 18 112/59 100 Mechanical Ventilator 40 11/27/16 11:17 96 26 40 6/26/17 09:25 86 12 40 11/27/16 09:22 88 Intake and Output 11/27/16 11/28/16 19:00 07:00 Intake Total 860 ml 400 ml Output Total 201 ml 150 ml Balance 659 ml 250 ml Intake Free Water 300 ml 40 ml Tube Feeding 80 ml 360 ml Other 480 ml Output Urine Total 200 ml 150 ml Stool Total 1 ml # Bowel Movements 2 4 Objective Sp02 EP Interpretation: reviewed, normal General Appearance: normal inspection, well appearing, no apparent distress, Head: normocephalic, atraumatic Eyes: bilateral eye normal inspection ENT: normal ENT inspection, Neck: normal inspection, no meningismus, carotid 2+ trach Respiratory: decreased breath sounds, without wheeze or rhonchi Cardiovascular #1: regular rate, rhythm, no murmur without MRG Gastrointestinal: non tender, soft, non-distended, no guarding, no rebound; GT Musculoskeletal: no CCE Neurologic: weak diffusely; awake; nonfocal reviewed and edited Current Medications Medications (Trade) Dose Ordered Sig/Josiah Route PRN Reason Start Time Stop Time Status Last Admin Dose Admin Acetaminophen (Tylenol) 650 mg Q4H PRN GT Pain Scale (3-5) 11/12/16 09:00 12/12/16 08:59 11/24/16 15:08 Amitriptyline HCl (Elavil) 10 mg BEDTIME GT 11/12/16 21:00 12/12/16 20:59 11/27/16 20:28 Ascorbic Acid (Vitamin C) 500 mg DAILY NG 11/25/16 09:00 12/25/16 08:59 11/27/16 09:22 Digoxin (Lanoxin) 0.125 mg DAILY GT 11/12/16 10:00 12/12/16 09:59 11/27/16 09:22 Docusate Sodium (Colace) 100 mg DAILY GT 11/12/16 10:00 12/12/16 09:59 11/27/16 09:21 Heparin Sodium (Porcine) (Heparin 5000 units/ml) 5,000 units EVERY 12 HOURS SUBQ 11/12/16 10:00 12/12/16 09:59 11/27/16 20:30 Levothyroxine Sodium (Synthroid) 150 mcg ACBREAKFAST GT 6/13/17 06:30 12/14/16 06:29 11/28/16 05:51 Midodrine (Pro-Amatine) 5 mg THREE TIMES A DAY GT 11/13/16 13:00 12/13/16 12:59 11/27/16 17:51 Multivitamins (Multivitamins W/ Minerals 15ml Liquid) 15 ml DAILY NG 11/25/16 09:00 12/25/16 08:59 11/27/16 09:21 MARCY MAJOR Nov 28, 2016 08:11
[2016-11-28] MEDS: Docusate 100mg/10ml Liq GT SCH (09:41)
[2016-11-28] MEDS: Digoxin 0.125mg tab GT SCH (09:42)
[2016-11-28] MEDS: Multivitamins W/Minerals 15 ML UDC NG SCH (09:43)
[2016-11-28] MEDS: Ascorbic Acid 500mg tab NG SCH (09:44)
[2016-11-28] MEDS: Heparin 5000 units/ml inj SUBQ SCH ×2 (09:45→21:20)
--- NOTE | 2016-11-28 11:47 | Diagnostic Imaging Report ---
Indications: Percutaneous gastrostomy tube replacement Technique: Portable AP view of the abdomen with administration of water soluble contrast through gastrostomy tube Findings: Comparison: 08/17/16 Percutaneous gastrostomy tube is present in the stomach. Injected contrast opacifies lumens of the tube, stomach both proximal and distal to the tube. All are normal in caliber. No extraluminal contrast extravasation is demonstrated. Remainder of bowel gas pattern unremarkable. Degenerative changes, mild dextroscoliosis are again noted in the lumbar spine. Nodular calcifications again noted in midline pelvis. Carey catheter currently in place. IMPRESSION: Percutaneous gastrostomy tube in stomach. No evidence of obstruction or extravasation. No other evidence of acute abdominopelvic disease, with limitation as described. Chronic changes as described.
[2016-11-28 12:00] VITALS: BP 90/60
--- NOTE | 2016-11-28 12:40 | Infectious Diseases Prog Note ---
Assessment/Plan Assessment/Plan antibiotics : none A 1. UTI s/p rx 2. leucocytosis resolved 3. respiratory failure 4. HTN 5. tongue cancer 6. pseudomonas pneumonia s/p rx P 1. continue off antibiotics Subjective ROS Limited/Unobtainable: Yes Allergies: Coded Allergies: PENICILLINS (Verified Allergy, Unknown, 07/31/16) Objective Vital Signs Last 24 Hour Vital Signs Date Time Temp Pulse Resp B/P Pulse Ox O2 Delivery O2 Flow Rate FiO2 11/28/16 10:55 82 12 40 11/28/16 09:42 85 11/28/16 08:46 89 14 40 11/28/16 08:00 98.7 87 18 100/60 100 Mechanical Ventilator 40 11/28/16 07:19 85 12 40 11/28/16 05:10 91 22 40 11/28/16 04:00 40 11/28/16 04:00 79 11/28/16 04:00 98.9 80 20 96/49 100 Mechanical Ventilator 40 11/28/16 03:10 84 14 40 11/28/16 01:23 92 17 40 11/28/16 00:00 79 11/28/16 00:00 99.1 79 20 104/57 100 Mechanical Ventilator 40 11/28/16 00:00 40 11/27/16 23:07 84 16 40 11/27/16 21:38 85 19 40 11/27/16 20:22 97.1 81 20 113/67 100 Mechanical Ventilator 40 11/27/16 20:00 40 11/27/16 20:00 81 11/27/16 19:41 81 20 40 11/27/16 16:55 73 20 40 11/27/16 16:00 87 11/27/16 16:00 40 11/27/16 15:32 97.5 84 12 106/54 99 Mechanical Ventilator 40 11/27/16 14:51 79 13 40 11/27/16 12:41 78 24 40 Height (Feet): 5 Height (Inches): 3.00 Weight (Pounds): 116 HEENT: status post trach Respiratory/Chest: lungs clear Cardiovascular: normal rate, regular rhythm, no gallop/murmur Abdomen: soft, non tender, other - GT Extremities: no edema MARA BLOCK Nov 28, 2016 12:40
[2016-11-28 16:00] VITALS: BP 109/64
[2016-11-28 20:45] VITALS: BP 138/47
[2016-11-29] VITALS: BP 115/65
--- NOTE | 2016-11-29 00:15 | Progress Note ---
DATE: 11/28/2016 CARDIOLOGY PROGRESS NOTE SUBJECTIVE: The patient is without any distress. Discharge planning in progress. OBJECTIVE: VITAL SIGNS: Blood pressure 96/49 , pulse 80, respirations 20, and afebrile. LUNGS: With good breath sounds. CARDIAC: Regular. ABDOMEN: Soft. G-tube intact. EXTREMITIES: No edema. IMPRESSION: 1. Stable blood pressure with adequate peripheral perfusion despite low range on midodrine chronically. 2. Sepsis recovered. 3. Ventilator-dependent respiratory failure. 4. Metastatic head and neck cancer. 5. Chronic diastolic congestive heart failure. 6. Paroxysmal atrial fibrillation. PLAN: Stable from cardiovascular standpoint for home care. Medications reviewed and outpatient plan of care discussed with primary care physician. Chi Bhatti M.D. DR: Marissa JOB#: [id number] CC:
[2016-11-29 04:00] VITALS: BP 109/56
[2016-11-29 08:00] VITALS: BP 99/50
[2016-11-29] MEDS: Multivitamins W/Minerals 15 ML UDC NG SCH (08:41)
[2016-11-29] MEDS: Docusate 100mg/10ml Liq GT SCH (08:41)
[2016-11-29] MEDS: Ascorbic Acid 500mg tab NG SCH (08:42)
[2016-11-29] MEDS: Digoxin 0.125mg tab GT SCH (08:42)
[2016-11-29] MEDS: Heparin 5000 units/ml inj SUBQ SCH ×2 (08:43→21:00)
--- NOTE | 2016-11-29 09:22 | Pulmonology Progress Note ---
Assessment/Plan Assessment/Plan IMPRESSION: 1. Respiratory failure, chronic encephalopathy. 2. Left lung nodule metastatic 3. 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 metastatic 4. Sepsis. 5. Tracheostomy G-tube. 6. Leukocytosis 7. History of Acute renal failure. 8. Lower extremity deep vein thrombosis per history. 9. Chronic encephalopathy PLAN exam reviewed and imaging noted care noted and reviewed respiratory care no change maintain full ventilator support discharge planning to home when everything is set up arranging home vent and back up vent will need full care at home and 24 hour attendant impression, plan, and exam edited and reviewed in detail care discussed with RN Subjective ROS Limited/Unobtainable: Yes Allergies: Coded Allergies: PENICILLINS (Verified Allergy, Unknown, 07/31/16) Subjective care noted events reviewed forms filled out still awaiting discharge Objective Last 24 Hour Vital Signs Date Time Temp Pulse Resp B/P Pulse Ox O2 Delivery O2 Flow Rate FiO2 11/29/16 08:42 97 11/29/16 08:00 98.2 97 17 99/50 99 Mechanical Ventilator 40 11/29/16 07:10 104 13 40 11/29/16 05:16 92 12 40 11/29/16 04:00 98.2 92 12 109/56 100 Mechanical Ventilator 40 11/29/16 04:00 40 11/29/16 03:54 85 11/29/16 03:48 86 14 40 11/29/16 01:46 89 13 40 11/29/16 00:00 40 11/29/16 00:00 98.9 90 14 115/65 100 Mechanical Ventilator 40 11/28/16 23:26 97 11/28/16 23:24 91 12 40 11/28/16 21:33 89 15 40 11/28/16 20:45 99.3 93 15 138/47 99 Mechanical Ventilator 40 11/28/16 20:00 40 11/28/16 19:16 94 11/28/16 19:13 97 15 40 11/28/16 16:34 83 13 40 11/28/16 16:00 87 11/28/16 16:00 98.0 87 18 109/64 100 Mechanical Ventilator 40 11/28/16 16:00 40 11/28/16 14:53 88 13 40 11/28/16 13:10 87 13 40 11/28/16 12:00 98.7 83 12 90/60 100 Mechanical Ventilator 40 11/28/16 12:00 83 11/28/16 12:00 40 11/28/16 10:55 82 12 40 11/28/16 09:42 85 Intake and Output 11/28/16 11/29/16 19:00 07:00 Intake Total 320 ml 240 ml Output Total 200 ml 575 ml Balance 120 ml -335 ml Tube Feeding 320 ml 240 ml Output Urine Total 200 ml 575 ml # Bowel Movements 14 14 Objective Sp02 EP Interpretation: reviewed, normal General Appearance: normal inspection, well appearing, no apparent distress, Head: normocephalic, atraumatic Eyes: bilateral eye normal inspection ENT: normal ENT inspection, Neck: normal inspection, no meningismus, carotid 2+ trach Respiratory: decreased breath sounds, without wheeze or rhonchi Cardiovascular #1: regular rate, rhythm, no murmur without MRG Gastrointestinal: non tender, soft, non-distended, no guarding, no rebound; GT Musculoskeletal: no CCE Neurologic: weak diffusely; awake; nonfocal reviewed and edited Current Medications Medications (Trade) Dose Ordered Sig/Josiah Route PRN Reason Start Time Stop Time Status Last Admin Dose Admin Acetaminophen (Tylenol) 650 mg Q4H PRN GT Pain Scale (3-5) 11/12/16 09:00 12/12/16 08:59 11/24/16 15:08 Amitriptyline HCl (Elavil) 10 mg BEDTIME GT 11/12/16 21:00 12/12/16 20:59 11/28/16 21:19 Ascorbic Acid (Vitamin C) 500 mg DAILY NG 11/25/16 09:00 12/25/16 08:59 11/29/16 08:42 Digoxin (Lanoxin) 0.125 mg DAILY GT 11/12/16 10:00 12/12/16 09:59 11/29/16 08:42 Docusate Sodium (Colace) 100 mg DAILY GT 11/12/16 10:00 12/12/16 09:59 11/29/16 08:41 Heparin Sodium (Porcine) (Heparin 5000 units/ml) 5,000 units EVERY 12 HOURS SUBQ 11/12/16 10:00 12/12/16 09:59 11/29/16 08:43 Levothyroxine Sodium (Synthroid) 150 mcg ACBREAKFAST GT 11/14/16 06:30 7/13/17 06:29 11/29/16 06:36 Midodrine (Pro-Amatine) 5 mg THREE TIMES A DAY GT 11/13/16 13:00 12/13/16 12:59 11/29/16 08:42 Multivitamins (Multivitamins W/ Minerals 15ml Liquid) 15 ml DAILY NG 11/25/16 09:00 12/25/16 08:59 11/29/16 08:41 MARCY MAJOR Nov 29, 2016 09:22
--- NOTE | 2016-11-29 11:26 | Infectious Diseases Prog Note ---
Assessment/Plan Assessment/Plan antibiotics : none A 1. UTI s/p rx 2. leucocytosis resolved 3. respiratory failure 4. HTN 5. tongue cancer 6. pseudomonas pneumonia s/p rx P 1. continue off antibiotics Subjective ROS Limited/Unobtainable: Yes Allergies: Coded Allergies: PENICILLINS (Verified Allergy, Unknown, 07/31/16) Objective Vital Signs Last 24 Hour Vital Signs Date Time Temp Pulse Resp B/P Pulse Ox O2 Delivery O2 Flow Rate FiO2 11/29/16 11:18 104 14 40 11/29/16 09:22 89 13 40 11/29/16 08:42 97 11/29/16 08:00 89 11/29/16 08:00 98.2 97 17 99/50 99 Mechanical Ventilator 40 11/29/16 08:00 40 11/29/16 07:10 104 13 40 11/29/16 05:16 92 12 40 11/29/16 04:00 98.2 92 12 109/56 100 Mechanical Ventilator 40 11/29/16 04:00 40 11/29/16 03:54 85 11/29/16 03:48 86 14 40 11/29/16 01:46 89 13 40 11/29/16 00:00 40 11/29/16 00:00 98.9 90 14 115/65 100 Mechanical Ventilator 40 11/28/16 23:26 97 11/28/16 23:24 91 12 40 11/28/16 21:33 89 15 40 11/28/16 20:45 99.3 93 15 138/47 99 Mechanical Ventilator 40 11/28/16 20:00 40 11/28/16 19:16 94 11/28/16 19:13 97 15 40 11/28/16 16:34 83 13 40 11/28/16 16:00 87 11/28/16 16:00 98.0 87 18 109/64 100 Mechanical Ventilator 40 11/28/16 16:00 40 11/28/16 14:53 88 13 40 11/28/16 13:10 87 13 40 11/28/16 12:00 98.7 83 12 90/60 100 Mechanical Ventilator 40 11/28/16 12:00 83 11/28/16 12:00 40 Height (Feet): 5 Height (Inches): 3.00 Weight (Pounds): 116 HEENT: status post trach Respiratory/Chest: lungs clear Cardiovascular: normal rate, regular rhythm, no gallop/murmur Abdomen: soft, non tender, other - GT Extremities: no edema MARA BLOCK Nov 29, 2016 11:26
[2016-11-29 12:00] VITALS: BP 110/76
[2016-11-29 16:00] VITALS: BP 113/61
[2016-11-29 20:00] VITALS: BP 99/56
--- NOTE | 2016-11-29 21:45 | Progress Note ---
DATE: 11/29/2016 CARDIOLOGY PROGRESS NOTE: SUBJECTIVE: The patient is without distress on ventilator support. Monitored rhythm, sinus. OBJECTIVE: VITAL SIGNS: Blood pressure is 113/61, pulse rate 92, and respiratory rate 15. LUNGS: Bilateral breath sounds. HEART: Regular rhythm and rate. ABDOMEN: Soft. G-tube intact. EXTREMITIES: No edema. Stable from cardiovascular standpoint. ASSESSMENT AND PLAN: Problems include, 1. Paroxysmal atrial fibrillation. 2. Acute and chronic diastolic congestive heart failure. 3. Episodes of asymptomatic hypotension with adequate peripheral perfusion, compensated on current cardiovascular regimen. Chi Bhatti M.D. DR: Sanjeev JOB#: [id number] CC:
[2016-11-30] VITALS: BP 134/80
[2016-11-30 04:30] VITALS: BP 95/43
[2016-11-30 07:36] VITALS: BP 97/76
--- NOTE | 2016-11-30 08:27 | Infectious Diseases Prog Note ---
Assessment/Plan Assessment/Plan A 1. UTI s/p Rx 2. leucocytosis resolved 3. respiratory failure 4. HPN 5. tongue cancer 6. Pneumonia with pseudomonas s/p Rx 7. Diarrhea P 1.observe off antibiotic Subjective ROS Limited/Unobtainable: Yes Allergies: Coded Allergies: PENICILLINS (Verified Allergy, Unknown, 07/31/16) Objective Vital Signs Last 24 Hour Vital Signs Date Time Temp Pulse Resp B/P Pulse Ox O2 Delivery O2 Flow Rate FiO2 11/30/16 07:54 76 12 40 11/30/16 07:36 97.3 99 12 97/76 99 Mechanical Ventilator 40 11/30/16 05:21 78 12 40 11/30/16 04:36 86 11/30/16 04:30 98.4 89 20 95/43 99 Mechanical Ventilator 40 11/30/16 04:00 40 11/30/16 03:29 94 14 40 11/30/16 01:11 108 14 40 11/30/16 00:21 116 11/30/16 00:00 97.0 103 20 134/80 99 Mechanical Ventilator 40 11/30/16 00:00 40 11/29/16 23:30 100 12 40 11/29/16 21:30 91 12 40 11/29/16 20:30 97 11/29/16 20:00 97.3 86 16 99/56 99 Mechanical Ventilator 40 11/29/16 20:00 40 11/29/16 20:00 116 11/29/16 19:30 87 12 40 11/29/16 19:27 97 11/29/16 16:46 89 13 40 11/29/16 16:00 92 11/29/16 16:00 97.2 93 15 113/61 98 Mechanical Ventilator 40 11/29/16 16:00 40 11/29/16 15:01 89 13 40 11/29/16 13:07 92 14 40 11/29/16 12:00 87 11/29/16 12:00 97.9 93 15 110/76 97 Mechanical Ventilator 40 11/29/16 12:00 40 11/29/16 11:18 104 14 40 11/29/16 09:22 89 13 40 11/29/16 08:42 97 Height (Feet): 5 Height (Inches): 3.00 Weight (Pounds): 116 General Appearance: no acute distress HEENT: status post trach Respiratory/Chest: lungs clear, other - on ventilator Cardiovascular: normal rate Abdomen: soft, non tender Extremities: no edema Neurologic/Psychiatric: other - sleeping Current Medications Medications (Trade) Dose Ordered Sig/Josiah Route PRN Reason Start Time Stop Time Status Last Admin Dose Admin Acetaminophen (Tylenol) 650 mg Q4H PRN GT Pain Scale (3-5) 11/12/16 09:00 12/12/16 08:59 11/24/16 15:08 Amitriptyline HCl (Elavil) 10 mg BEDTIME GT 11/12/16 21:00 12/12/16 20:59 11/29/16 21:00 Ascorbic Acid (Vitamin C) 500 mg DAILY NG 11/25/16 09:00 12/25/16 08:59 11/29/16 08:42 Digoxin (Lanoxin) 0.125 mg DAILY GT 11/12/16 10:00 12/12/16 09:59 11/29/16 08:42 Docusate Sodium (Colace) 100 mg DAILY GT 11/12/16 10:00 12/12/16 09:59 11/29/16 08:41 Heparin Sodium (Porcine) (Heparin 5000 units/ml) 5,000 units EVERY 12 HOURS SUBQ 11/12/16 10:00 12/12/16 09:59 11/29/16 21:00 Levothyroxine Sodium (Synthroid) 150 mcg ACBREAKFAST GT 11/14/16 06:30 12/14/16 06:29 11/30/16 06:25 Midodrine (Pro-Amatine) 5 mg THREE TIMES A DAY GT 11/13/16 13:00 12/13/16 12:59 11/29/16 17:41 Multivitamins (Multivitamins W/ Minerals 15ml Liquid) 15 ml DAILY NG 11/25/16 09:00 12/25/16 08:59 11/29/16 08:41 JENNIFER MCKEE Nov 30, 2016 08:27
[2016-11-30] MEDS: Multivitamins W/Minerals 15 ML UDC NG SCH (10:03)
[2016-11-30] MEDS: Docusate 100mg/10ml Liq GT SCH (10:03)
[2016-11-30] MEDS: Heparin 5000 units/ml inj SUBQ SCH ×2 (10:03→20:47)
[2016-11-30] MEDS: Digoxin 0.125mg tab GT SCH (10:04)
[2016-11-30] MEDS: Ascorbic Acid 500mg tab NG SCH (10:04)
[2016-11-30 10:34] LABS: BASOPHILS % (AUTO) 1.3 % (0.0-2.0); EOSINOPHILS % (AUTO) 7.4 % (0.0-3.0); LYMPHOCYTES % (AUTO) 14.5 % (20.0-45.0); MEAN CORPUSCULAR HEMOGLOBIN 31.3 PG (27.0-31.0); MEAN CORPUSCULAR HGB CONC 32.1 G/DL (32.0-36.0); MEAN CORPUSCULAR VOLUME 97 FL (80-99); MEAN PLATELET VOLUME 6.8 FL (6.5-10.1); MONOCYTES % (AUTO) 12.7 % (1.0-10.0); PLATELET COUNT 221 K/UL (150-450); RED BLOOD COUNT 4.09 M/UL (4.20-5.40); RED CELL DISTRIBUTION WIDTH 12.9 % (11.6-14.8); WHITE BLOOD COUNT 9.5 K/UL (4.8-10.8)
[2016-11-30 10:48] LABS: ALANINE AMINOTRANSFERASE 9 U/L (3-33); ALBUMIN/GLOBULIN RATIO 0.7 (1.0-2.7); ANION GAP 10 (5-15); ASPARTATE AMINO TRANSFERASE 16 U/L (5-40); CALCIUM 9.9 mg/dL (8.6-10.2); CARBON DIOXIDE 35 mEQ/L (20-30); CHLORIDE 94 mEQ/L (98-107); CREATININE 0.8 mg/dL (0.5-0.9); HEMOLYSIS 2; MAGNESIUM 2.5 mg/dL (1.7-2.5); PHOSPHORUS 3.9 mg/dL (2.5-4.8); POTASSIUM 4.4 mEQ/L (3.4-4.9); SODIUM 139 mEQ/L (135-145); TOTAL PROTEIN 7.5 g/dL (6.6-8.7)
[2016-11-30 11:34] VITALS: BP 97/43
--- NOTE | 2016-11-30 13:16 | Pulmonology Progress Note ---
Assessment/Plan Assessment/Plan IMPRESSION: 1. Respiratory failure, chronic encephalopathy. 2. Left lung nodule metastatic 3. 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 metastatic 4. Sepsis. 5. Tracheostomy G-tube. 6. Leukocytosis 7. History of Acute renal failure. 8. Lower extremity deep vein thrombosis per history. 9. Chronic encephalopathy PLAN exam reviewed and imaging noted care noted and reviewed respiratory care no change maintain full ventilator support discharge planning to home when everything is set up arranging home vent and back up vent will need full care at home and 24 hour attendant patient needs GT feeding for dysphagia and high risk of aspiration impression, plan, and exam edited and reviewed in detail care discussed with RN Subjective ROS Limited/Unobtainable: Yes Allergies: Coded Allergies: PENICILLINS (Verified Allergy, Unknown, 07/31/16) Subjective care noted events reviewed still awaiting discharge Objective Last 24 Hour Vital Signs Date Time Temp Pulse Resp B/P Pulse Ox O2 Delivery O2 Flow Rate FiO2 11/30/16 12:00 40 11/30/16 12:00 86 11/30/16 11:34 97.5 76 12 97/43 95 Mechanical Ventilator 40 11/30/16 10:55 80 12 40 11/30/16 10:04 89 11/30/16 08:48 76 12 40 11/30/16 08:00 90 11/30/16 07:54 76 12 40 11/30/16 07:36 97.3 99 12 97/76 99 Mechanical Ventilator 40 11/30/16 05:21 78 12 40 11/30/16 04:36 86 11/30/16 04:30 98.4 89 20 95/43 99 Mechanical Ventilator 40 11/30/16 04:00 40 11/30/16 03:29 94 14 40 11/30/16 01:11 108 14 40 11/30/16 00:21 116 11/30/16 00:00 97.0 103 20 134/80 99 Mechanical Ventilator 40 11/30/16 00:00 40 11/29/16 23:30 100 12 40 11/29/16 21:30 91 12 40 11/29/16 20:30 97 11/29/16 20:00 97.3 86 16 99/56 99 Mechanical Ventilator 40 11/29/16 20:00 40 11/29/16 20:00 116 11/29/16 19:30 87 12 40 11/29/16 19:27 97 11/29/16 16:46 89 13 40 11/29/16 16:00 92 11/29/16 16:00 97.2 93 15 113/61 98 Mechanical Ventilator 40 11/29/16 16:00 40 11/29/16 15:01 89 13 40 Intake and Output 11/29/16 11/30/16 19:00 07:00 Intake Total 590 ml Output Total 450 ml 100 ml Balance 140 ml -100 ml Tube Feeding 440 ml Other 150 ml Output Urine Total 450 ml 100 ml # Bowel Movements 8 3 Objective Sp02 EP Interpretation: reviewed, normal General Appearance: normal inspection, well appearing, no apparent distress, Head: normocephalic, atraumatic Eyes: bilateral eye normal inspection ENT: normal ENT inspection, Neck: normal inspection, no meningismus, carotid 2+ trach Respiratory: decreased breath sounds, without wheeze or rhonchi Cardiovascular #1: regular rate, rhythm, no murmur without MRG Gastrointestinal: non tender, soft, non-distended, no guarding, no rebound; GT Musculoskeletal: no CCE Neurologic: weak diffusely; awake; nonfocal reviewed and edited Laboratory Tests 11/30/16 09:45: White Blood Count 9.5, Red Blood Count 4.09L, Hemoglobin 12.8, Hematocrit 39.9, Mean Corpuscular Volume 97, Mean Corpuscular Hemoglobin 31.3H, Mean Corpuscular Hemoglobin Concent 32.1, Red Cell Distribution Width 12.9, Platelet Count 221, Mean Platelet Volume 6.8, Neutrophils (%) (Auto) 64.0, Lymphocytes (%) (Auto) 14.5L, Monocytes (%) (Auto) 12.7H, Eosinophils (%) (Auto) 7.4H, Basophils (%) ( Auto) 1.3, Sodium Level 139, Potassium Level 4.4, Chloride Level 94L, Carbon Dioxide Level 35H, Anion Gap 10, Blood Urea Nitrogen 34H, Creatinine 0.8, Estimat Glomerular Filtration Rate , Glucose Level 125H, Calcium Level 9.9, Phosphorus Level 3.9, Magnesium Level 2.5, Total Bilirubin 0.2, Aspartate Amino Transf (AST/SGOT) 16, Alanine Aminotransferase (ALT/SGPT) 9, Alkaline Phosphatase 89, Total Protein 7.5, Albumin 3.2L, Globulin 4.3, Albumin/Globulin Ratio 0.7L Current Medications Medications (Trade) Dose Ordered Sig/Josiah Route PRN Reason Start Time Stop Time Status Last Admin Dose Admin Acetaminophen (Tylenol) 650 mg Q4H PRN GT Pain Scale (3-5) 11/12/16 09:00 12/12/16 08:59 11/24/16 15:08 Amitriptyline HCl (Elavil) 10 mg BEDTIME GT 11/12/16 21:00 12/12/16 20:59 11/29/16 21:00 Ascorbic Acid (Vitamin C) 500 mg DAILY NG 11/25/16 09:00 12/25/16 08:59 11/30/16 10:04 Digoxin (Lanoxin) 0.125 mg DAILY GT 11/12/16 10:00 12/12/16 09:59 11/30/16 10:04 Docusate Sodium (Colace) 100 mg DAILY GT 11/12/16 10:00 12/12/16 09:59 11/30/16 10:03 Heparin Sodium (Porcine) (Heparin 5000 units/ml) 5,000 units EVERY 12 HOURS SUBQ 11/12/16 10:00 12/12/16 09:59 11/30/16 10:03 Levothyroxine Sodium (Synthroid) 150 mcg ACBREAKFAST GT 11/14/16 06:30 12/14/16 06:29 11/30/16 06:25 Midodrine (Pro-Amatine) 5 mg THREE TIMES A DAY GT 11/13/16 13:00 12/13/16 12:59 11/30/16 10:03 Multivitamins (Multivitamins W/ Minerals 15ml Liquid) 15 ml DAILY NG 11/25/16 09:00 12/25/16 08:59 11/30/16 10:03 MARCY MAJOR Nov 30, 2016 13:16
[2016-11-30 16:00] VITALS: BP 98/53
--- NOTE | 2016-11-30 18:02 | Progress Note ---
DATE: 11/30/2016 CARDIOLOGY PROGRESS NOTE SUBJECTIVE: The patient remains on G-tube feedings. Tolerating without nausea and vomiting. She is on ventilator support. OBJECTIVE: VITAL SIGNS: Blood pressure 97/43, pulse 76, and respiratory rate 12. Afebrile. LUNGS: Bilateral breath sounds. HEART: Regular rhythm and rate. Normal S1 and S2. ABDOMEN: Soft. G-tube intact. EXTREMITIES: Trace edema. LABORATORY DATA: Sodium 139, potassium 4.4, bicarb 35, BUN 34, and creatinine 0.8. White count 9.5 and hemoglobin 12.8. IMPRESSION: 1. Ventilator-dependent respiratory failure. 2. Metastatic head and neck cancer. 3. Paroxysmal atrial fibrillation. 4. Chronic diastolic congestive heart failure. 5. Mild protein-calorie malnutrition. PLAN: 1. Continue feedings by G-tube. 2. Training for family for ventilator use. 3. Maintain digitalis for rate control in the event of atrial fibrillation. 4. Continued respiratory hygiene. Chi Bhatti M.D. DR: DAVID JOB#: [id number] CC:
[2016-11-30 20:30] VITALS: BP 105/58
[2016-12-01] VITALS: BP 101/62
[2016-12-01 04:21] VITALS: BP 95/53
[2016-12-01 08:00] VITALS: BP 98/51
--- NOTE | 2016-12-01 08:10 | Pulmonology Progress Note ---
Assessment/Plan Assessment/Plan IMPRESSION: 1. Respiratory failure, chronic encephalopathy. 2. Left lung nodule metastatic 3. 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 metastatic 4. Sepsis. 5. Tracheostomy G-tube. 6. Leukocytosis 7. History of Acute renal failure. 8. Lower extremity deep vein thrombosis per history. 9. Chronic encephalopathy PLAN exam reviewed and overall same care noted and reviewed respiratory care no change at present no recent labs vital signs reviewed maintain full ventilator support discharge planning to home when everything is set up arranging home vent and back up vent will need full care at home and 24 hour attendant patient needs GT feeding for dysphagia and high risk of aspiration impression, plan, and exam edited and reviewed in detail care discussed with RN Subjective ROS Limited/Unobtainable: Yes Allergies: Coded Allergies: PENICILLINS (Verified Allergy, Unknown, 07/31/16) Subjective care noted events reviewed still awaiting discharge Objective Last 24 Hour Vital Signs Date Time Temp Pulse Resp B/P Pulse Ox O2 Delivery O2 Flow Rate FiO2 12/01/16 07:05 78 12 40 12/01/16 05:25 77 12 40 12/01/16 04:21 99.2 78 18 95/53 99 Mechanical Ventilator 40 12/01/16 04:00 40 12/01/16 03:47 75 12/01/16 03:20 72 12 40 12/01/16 01:21 78 12 40 12/01/16 00:00 98.6 82 18 101/62 100 Mechanical Ventilator 40 12/01/16 00:00 40 11/30/16 23:32 80 11/30/16 23:15 76 12 40 11/30/16 21:20 75 12 40 11/30/16 20:30 97.6 79 18 105/58 100 Mechanical Ventilator 40 11/30/16 20:00 40 11/30/16 19:24 76 12 40 11/30/16 19:02 72 11/30/16 16:56 78 12 40 11/30/16 16:00 97.0 77 18 98/53 98 Mechanical Ventilator 40 11/30/16 16:00 95 11/30/16 16:00 40 11/30/16 15:20 73 15 40 11/30/16 13:15 76 12 40 11/30/16 12:00 40 11/30/16 12:00 86 11/30/16 11:34 97.5 76 12 97/43 95 Mechanical Ventilator 40 11/30/16 10:55 80 12 40 11/30/16 10:04 89 11/30/16 08:48 76 12 40 Intake and Output 11/30/16 12/01/16 19:00 07:00 Intake Total 840 ml 480 ml Output Total 400 ml 350 ml Balance 440 ml 130 ml Intake Free Water 360 ml Tube Feeding 480 ml 480 ml Output Urine Total 400 ml 350 ml # Bowel Movements 3 4 Objective Sp02 EP Interpretation: reviewed, normal General Appearance: normal inspection, well appearing, no apparent distress, Head: normocephalic, atraumatic Eyes: bilateral eye normal inspection ENT: normal ENT inspection, Neck: normal inspection, no meningismus, carotid 2+ trach Respiratory: decreased breath sounds, without wheeze or rhonchi Cardiovascular #1: regular rate, rhythm, no murmur without MRG Gastrointestinal: non tender, soft, non-distended, no guarding, no rebound; GT Musculoskeletal: no CCE Neurologic: weak diffusely; awake; nonfocal reviewed and edited Laboratory Tests 11/30/16 09:45: White Blood Count 9.5, Red Blood Count 4.09L, Hemoglobin 12.8, Hematocrit 39.9, Mean Corpuscular Volume 97, Mean Corpuscular Hemoglobin 31.3H, Mean Corpuscular Hemoglobin Concent 32.1, Red Cell Distribution Width 12.9, Platelet Count 221, Mean Platelet Volume 6.8, Neutrophils (%) (Auto) 64.0, Lymphocytes (%) (Auto) 14.5L, Monocytes (%) (Auto) 12.7H, Eosinophils (%) (Auto) 7.4H, Basophils (%) ( Auto) 1.3, Sodium Level 139, Potassium Level 4.4, Chloride Level 94L, Carbon Dioxide Level 35H, Anion Gap 10, Blood Urea Nitrogen 34H, Creatinine 0.8, Estimat Glomerular Filtration Rate , Glucose Level 125H, Calcium Level 9.9, Phosphorus Level 3.9, Magnesium Level 2.5, Total Bilirubin 0.2, Aspartate Amino Transf (AST/SGOT) 16, Alanine Aminotransferase (ALT/SGPT) 9, Alkaline Phosphatase 89, Total Protein 7.5, Albumin 3.2L, Globulin 4.3, Albumin/Globulin Ratio 0.7L Current Medications Medications (Trade) Dose Ordered Sig/Josiah Route PRN Reason Start Time Stop Time Status Last Admin Dose Admin Acetaminophen (Tylenol) 650 mg Q4H PRN GT Pain Scale (3-5) 11/12/16 09:00 12/12/16 08:59 11/24/16 15:08 Amitriptyline HCl (Elavil) 10 mg BEDTIME GT 11/12/16 21:00 12/12/16 20:59 11/30/16 20:45 Ascorbic Acid (Vitamin C) 500 mg DAILY NG 11/25/16 09:00 12/25/16 08:59 11/30/16 10:04 Digoxin (Lanoxin) 0.125 mg DAILY GT 11/12/16 10:00 12/12/16 09:59 11/30/16 10:04 Docusate Sodium (Colace) 100 mg DAILY GT 11/12/16 10:00 12/12/16 09:59 11/30/16 10:03 Heparin Sodium (Porcine) (Heparin 5000 units/ml) 5,000 units EVERY 12 HOURS SUBQ 11/12/16 10:00 12/12/16 09:59 11/30/16 20:47 Levothyroxine Sodium (Synthroid) 150 mcg ACBREAKFAST GT 11/14/16 06:30 12/14/16 06:29 12/01/16 06:54 Midodrine (Pro-Amatine) 5 mg THREE TIMES A DAY GT 11/13/16 13:00 12/13/16 12:59 11/30/16 18:15 Multivitamins (Multivitamins W/ Minerals 15ml Liquid) 15 ml DAILY NG 11/25/16 09:00 12/25/16 08:59 11/30/16 10:03 MARCY MAJOR Dec 01, 2016 08:10
[2016-12-01] MEDS: Digoxin 0.125mg tab GT SCH (09:28)
[2016-12-01] MEDS: Multivitamins W/Minerals 15 ML UDC NG SCH (09:28)
[2016-12-01] MEDS: Docusate 100mg/10ml Liq GT SCH (09:28)
[2016-12-01] MEDS: Ascorbic Acid 500mg tab NG SCH (09:28)
[2016-12-01] MEDS: Heparin 5000 units/ml inj SUBQ SCH ×2 (09:30→21:46)
--- NOTE | 2016-12-01 11:27 | Infectious Diseases Prog Note ---
Assessment/Plan Assessment/Plan antibiotics : none A 1. UTI s/p rx 2. leucocytosis resolved 3. respiratory failure 4. HTN 5. tongue cancer 6. pseudomonas pneumonia s/p rx P 1. continue off antibiotics Subjective ROS Limited/Unobtainable: Yes Allergies: Coded Allergies: PENICILLINS (Verified Allergy, Unknown, 07/31/16) Objective Vital Signs Last 24 Hour Vital Signs Date Time Temp Pulse Resp B/P Pulse Ox O2 Delivery O2 Flow Rate FiO2 12/01/16 11:10 80 12 40 12/01/16 09:28 80 12/01/16 09:05 76 12 40 12/01/16 08:00 40 12/01/16 08:00 76 12/01/16 08:00 97.5 80 13 98/51 100 Mechanical Ventilator 40 12/01/16 07:05 78 12 40 12/01/16 05:25 77 12 40 12/01/16 04:21 99.2 78 18 95/53 99 Mechanical Ventilator 40 12/01/16 04:00 40 12/01/16 03:47 75 12/01/16 03:20 72 12 40 12/01/16 01:21 78 12 40 12/01/16 00:00 98.6 82 18 101/62 100 Mechanical Ventilator 40 12/01/16 00:00 40 11/30/16 23:32 80 11/30/16 23:15 76 12 40 11/30/16 21:20 75 12 40 11/30/16 20:30 97.6 79 18 105/58 100 Mechanical Ventilator 40 11/30/16 20:00 40 11/30/16 19:24 76 12 40 11/30/16 19:02 72 11/30/16 16:56 78 12 40 11/30/16 16:00 97.0 77 18 98/53 98 Mechanical Ventilator 40 11/30/16 16:00 95 11/30/16 16:00 40 11/30/16 15:20 73 15 40 11/30/16 13:15 76 12 40 11/30/16 12:00 40 11/30/16 12:00 86 11/30/16 11:34 97.5 76 12 97/43 95 Mechanical Ventilator 40 Height (Feet): 5 Height (Inches): 3.00 Weight (Pounds): 116 HEENT: status post trach Respiratory/Chest: lungs clear Cardiovascular: normal rate, regular rhythm, no gallop/murmur Abdomen: soft, non tender, other - GT Extremities: no edema MARA BLOCK Dec 01, 2016 11:27
[2016-12-01 12:00] VITALS: BP 117/52
[2016-12-01 16:00] VITALS: BP 92/57
[2016-12-01 20:00] VITALS: BP 128/72
[2016-12-02] VITALS (8 sets, daily range): BP systolic 105–127; BP diastolic 42–82
--- NOTE | 2016-12-02 01:32 | Progress Note ---
DATE: 12/01/2016 SUBJECTIVE: Condition unchanged. OBJECTIVE: VITAL SIGNS: T-max 99.2 degrees, blood pressure 95/53, heart rate 78, and respiratory rate 18. On vent support. LUNGS: Bilateral breath sounds. Few rhonchi. HEART: Regular rhythm and rate. G-tube intact. EXTREMITIES: Trace edema. Distal muscle atrophy. IMPRESSION: 1. Ventilator-dependent respiratory failure. 2. Head and neck carcinoma with metastatic disease. 3. History of deep venous thrombosis. 4. Paroxysmal atrial fibrillation. 5. Chronic diastolic congestive heart failure. 6. Tracheostomy. 7. Gastrostomy tube. 8. Chronic low range blood pressure with adequate distal perfusion. PLAN: 1. Training for home vent care. 2. Continue midodrine. 3. No indication for diuresis at this time. Chi Bhatti M.D. DR: DAVID JOB#: [id number] CC:
--- NOTE | 2016-12-02 08:44 | Pulmonology Progress Note ---
Assessment/Plan Assessment/Plan IMPRESSION: 1. Respiratory failure, chronic encephalopathy. 2. Left lung nodule metastatic 3. 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 metastatic 4. Sepsis. 5. Tracheostomy G-tube. 6. Leukocytosis 7. History of Acute renal failure. 8. Lower extremity deep vein thrombosis per history. 9. Chronic encephalopathy PLAN exam reviewed and overall same care noted and reviewed respiratory care no change at present no recent labs portable vent vital signs same maintain full ventilator support discharge planning to home when everything is set up home vent and back up vent will need full care at home and 24 hour attendant patient needs GT feeding for dysphagia and high risk of aspiration impression, plan, and exam edited and reviewed in detail care discussed with RN Subjective ROS Limited/Unobtainable: Yes Allergies: Coded Allergies: PENICILLINS (Verified Allergy, Unknown, 07/31/16) Subjective care noted events reviewed awaiting final training and tolerance of portable vent Objective Last 24 Hour Vital Signs Date Time Temp Pulse Resp B/P Pulse Ox O2 Delivery O2 Flow Rate FiO2 12/02/16 08:10 97.0 92 20 105/67 98 Mechanical Ventilator 12/02/16 05:25 104 16 40 12/02/16 04:00 97.8 103 27 122/70 100 Mechanical Ventilator 30 12/02/16 04:00 40 12/02/16 03:45 101 12/02/16 03:19 101 13 40 12/02/16 01:00 104 12 40 12/02/16 00:34 98.2 98 27 113/42 100 Mechanical Ventilator 30 12/02/16 00:00 98.3 114 17 125/66 98 Mechanical Ventilator 40 12/02/16 00:00 116 12/02/16 00:00 40 12/01/16 22:30 118 16 40 12/01/16 20:45 101 12 40 12/01/16 20:00 40 12/01/16 20:00 97.2 102 12 128/72 99 Mechanical Ventilator 40 12/01/16 19:48 104 12/01/16 18:40 108 14 40 12/01/16 16:45 79 12 40 12/01/16 16:00 40 12/01/16 16:00 82 12/01/16 16:00 96.6 81 12 92/57 100 Mechanical Ventilator 40 12/01/16 15:22 75 12 40 12/01/16 13:00 82 12 40 6/30/17 12:00 84 12/01/16 12:00 40 12/01/16 12:00 96.4 86 12 117/52 95 Mechanical Ventilator 40 12/01/16 11:10 80 12 40 12/01/16 09:28 80 12/01/16 09:05 76 12 40 Intake and Output 12/01/16 12/02/16 19:00 07:00 Intake Total 670 ml 440 ml Output Total 525 ml Balance 670 ml -85 ml Intake Free Water 50 ml Tube Feeding 440 ml 440 ml Other 180 ml Output Urine Total 525 ml # Bowel Movements 2 Objective Sp02 EP Interpretation: reviewed, normal General Appearance: normal inspection, well appearing, no apparent distress, Head: normocephalic, atraumatic Eyes: bilateral eye normal inspection ENT: normal ENT inspection, Neck: normal inspection, no meningismus, carotid 2+ trach Respiratory: decreased breath sounds, without wheeze or rhonchi Cardiovascular #1: regular rate, rhythm, no murmur without MRG Gastrointestinal: non tender, soft, non-distended, no guarding, no rebound; GT Musculoskeletal: no CCE Neurologic: weak diffusely; awake; nonfocal reviewed and edited; overall same Current Medications Medications (Trade) Dose Ordered Sig/Josiah Route PRN Reason Start Time Stop Time Status Last Admin Dose Admin Acetaminophen (Tylenol) 650 mg Q4H PRN GT Pain Scale (3-5) 11/12/16 09:00 12/12/16 08:59 11/24/16 15:08 Amitriptyline HCl (Elavil) 10 mg BEDTIME GT 11/12/16 21:00 12/12/16 20:59 12/01/16 21:48 Ascorbic Acid (Vitamin C) 500 mg DAILY NG 11/25/16 09:00 12/25/16 08:59 12/01/16 09:28 Digoxin (Lanoxin) 0.125 mg DAILY GT 11/12/16 10:00 12/12/16 09:59 12/01/16 09:28 Docusate Sodium (Colace) 100 mg DAILY GT 11/12/16 10:00 12/12/16 09:59 12/01/16 09:28 Heparin Sodium (Porcine) (Heparin 5000 units/ml) 5,000 units EVERY 12 HOURS SUBQ 11/12/16 10:00 12/12/16 09:59 12/01/16 21:46 Levothyroxine Sodium (Synthroid) 150 mcg ACBREAKFAST GT 11/14/16 06:30 12/14/16 06:29 12/02/16 06:30 Midodrine (Pro-Amatine) 5 mg THREE TIMES A DAY GT 11/13/16 13:00 12/13/16 12:59 12/01/16 16:32 Multivitamins (Multivitamins W/ Minerals 15ml Liquid) 15 ml DAILY NG 11/25/16 09:00 12/25/16 08:59 12/01/16 09:28 MARCY MAJOR Dec 02, 2016 08:44
[2016-12-02] MEDS: Docusate 100mg/10ml Liq GT SCH (09:14)
[2016-12-02] MEDS: Multivitamins W/Minerals 15 ML UDC NG SCH (09:15)
[2016-12-02] MEDS: Digoxin 0.125mg tab GT SCH (09:15)
[2016-12-02] MEDS: Ascorbic Acid 500mg tab NG SCH (09:16)
[2016-12-02] MEDS: Heparin 5000 units/ml inj SUBQ SCH ×2 (09:17→20:45)
--- NOTE | 2016-12-02 13:02 | Progress Note ---
DATE: 12/02/2016 CARDIOLOGY PROGRESS NOTE SUBJECTIVE: The patient is on ventilator support. Monitored rhythm, sinus. MEDICATIONS: Medication regimen reviewed, which includes midodrine. OBJECTIVE: VITAL SIGNS: Blood pressure 105/67, pulse 104, and respiratory 16. CHEST: Bilateral breath sounds. No wheezing. HEART: Regular rhythm and rate. Normal S1 and S2. ABDOMEN: Soft. G-tube intact. EXTREMITIES: Trace edema. Muscle atrophy. IMPRESSION: 1. Ventilator-dependent respiratory failure. 2. Metastatic head and neck cancer. 3. Chronic diastolic congestive heart failure. 4. Paroxysmal atrial fibrillation. 5. Mild protein-calorie malnutrition. PLAN: Discharge planning. Family training for home vent care. Titrate midodrine, digoxin for rate control in the event of recurring atrial fibrillation. No role for diuretic therapy at this time. We will recheck laboratory studies in anticipation of upcoming discharge. Chi Bhatti M.D. DR: Cristopher JOB#: [id number] CC:
--- NOTE | 2016-12-02 19:31 | General Progress Note ---
Assessment/Plan Assessment/Plan GI Consult ATSP for GT change will order and change in am Thank you Zeny Li Subjective Allergies: Coded Allergies: PENICILLINS (Verified Allergy, Unknown, 07/31/16) Objective Last 24 Hour Vital Signs Date Time Temp Pulse Resp B/P Pulse Ox O2 Delivery O2 Flow Rate FiO2 12/02/16 18:49 97 16 40 12/02/16 17:12 105 19 40 12/02/16 16:00 40 12/02/16 16:00 98.0 95 18 111/59 99 Mechanical Ventilator 12/02/16 16:00 94 12/02/16 14:30 96 13 40 12/02/16 12:58 99 13 40 12/02/16 12:00 93 12/02/16 12:00 40 12/02/16 12:00 98.2 98 20 106/57 98 Mechanical Ventilator 12/02/16 10:37 99 14 40 12/02/16 09:15 100 12/02/16 08:36 99 16 40 12/02/16 08:10 97.0 92 20 105/67 98 Mechanical Ventilator 12/02/16 08:00 40 12/02/16 07:53 109 12/02/16 06:32 104 15 40 12/02/16 05:25 104 16 40 12/02/16 04:00 97.8 103 27 122/70 100 Mechanical Ventilator 12/02/16 04:00 40 12/02/16 03:45 101 12/02/16 03:19 101 13 40 12/02/16 01:00 104 12 40 12/02/16 00:34 98.2 98 27 113/42 100 Mechanical Ventilator 30 12/02/16 00:00 98.3 114 17 125/66 98 Mechanical Ventilator 40 12/02/16 00:00 116 12/02/16 00:00 40 12/01/16 22:30 118 16 40 12/01/16 20:45 101 12 40 12/01/16 20:00 40 12/01/16 20:00 97.2 102 12 128/72 99 Mechanical Ventilator 40 12/01/16 19:48 104 Intake and Output 12/01/16 12/02/16 18:59 06:59 Intake Total 670 ml 480 ml Output Total 525 ml Balance 670 ml -45 ml Intake Free Water 50 ml Tube Feeding 440 ml 480 ml Other 180 ml Output Urine Total 525 ml # Bowel Movements 2 Height (Feet): 5 Height (Inches): 3.00 Weight (Pounds): 116 BIN LI Dec 02, 2016 19:31
[2016-12-03] VITALS: BP 144/67
[2016-12-03 04:00] VITALS: BP 109/52
[2016-12-03 08:00] VITALS: BP 106/61
[2016-12-03 08:25] LABS: ALANINE AMINOTRANSFERASE 13 U/L (3-33); ALBUMIN/GLOBULIN RATIO 0.7 (1.0-2.7); ANION GAP 10 (5-15); ASPARTATE AMINO TRANSFERASE 20 U/L (5-40); CALCIUM 9.7 mg/dL (8.6-10.2); CARBON DIOXIDE 32 mEQ/L (20-30); CHLORIDE 96 mEQ/L (98-107); CREATININE 0.6 mg/dL (0.5-0.9); HEMOLYSIS 7; MAGNESIUM 1.9 mg/dL (1.7-2.5); POTASSIUM 4.6 mEQ/L (3.4-4.9); SODIUM 138 mEQ/L (135-145); TOTAL PROTEIN 7.5 g/dL (6.6-8.7)
[2016-12-03] MEDS: Multivitamins W/Minerals 15 ML UDC NG SCH (08:29)
[2016-12-03] MEDS: Heparin 5000 units/ml inj SUBQ SCH ×2 (08:30→21:42)
[2016-12-03] MEDS: Ascorbic Acid 500mg tab NG SCH (08:30)
[2016-12-03 08:31] LABS: BASOPHILS % (AUTO) 1.4 % (0.0-2.0); EOSINOPHILS % (AUTO) 10.7 % (0.0-3.0); LYMPHOCYTES % (AUTO) 17.4 % (20.0-45.0); MEAN CORPUSCULAR HEMOGLOBIN 32.1 PG (27.0-31.0); MEAN CORPUSCULAR HGB CONC 33.2 G/DL (32.0-36.0); MEAN CORPUSCULAR VOLUME 97 FL (80-99); MEAN PLATELET VOLUME 6.7 FL (6.5-10.1); MONOCYTES % (AUTO) 12.5 % (1.0-10.0); NEUTROPHILS % (AUTO) 58.1 % (45.0-75.0); PLATELET COUNT 223 K/UL (150-450); RED BLOOD COUNT 4.07 M/UL (4.20-5.40); RED CELL DISTRIBUTION WIDTH 12.5 % (11.6-14.8); WHITE BLOOD COUNT 9.9 K/UL (4.8-10.8)
[2016-12-03] MEDS: Docusate 100mg/10ml Liq GT SCH (08:31)
--- NOTE | 2016-12-03 08:39 | Infectious Diseases Prog Note ---
Assessment/Plan Assessment/Plan A 1. UTI s/p Rx 2. leucocytosis resolved 3. respiratory failure 4. HPN 5. tongue cancer 6. Pneumonia with pseudomonas s/p Rx 7. Diarrhea P 1.observe off antibiotic Subjective ROS Limited/Unobtainable: Yes Gastrointestinal/Abdominal: Reports: diarrhea Allergies: Coded Allergies: PENICILLINS (Verified Allergy, Unknown, 07/31/16) Objective Vital Signs Last 24 Hour Vital Signs Date Time Temp Pulse Resp B/P Pulse Ox O2 Delivery O2 Flow Rate FiO2 12/03/16 08:00 97.7 98 20 106/61 99 Mechanical Ventilator 12/03/16 08:00 40 12/03/16 07:16 91 13 40 12/03/16 04:54 91 12 40 12/03/16 04:00 90 12/03/16 04:00 40 12/03/16 04:00 97.0 92 20 109/52 Mechanical Ventilator 40 12/03/16 02:41 92 13 40 12/03/16 00:44 95 12 40 12/03/16 00:00 98.1 106 18 144/67 Mechanical Ventilator 12/03/16 00:00 40 12/03/16 00:00 99 12/02/16 22:58 102 13 40 12/02/16 22:00 97.3 101 15 116/81 Mechanical Ventilator 12/02/16 20:56 96 13 40 12/02/16 20:00 40 12/02/16 20:00 98.1 83 23 127/82 Mechanical Ventilator 12/02/16 19:16 93 12/02/16 18:49 97 16 40 12/02/16 17:12 105 19 40 12/02/16 16:00 40 12/02/16 16:00 98.0 95 18 111/59 99 Mechanical Ventilator 12/02/16 16:00 94 12/02/16 14:30 96 13 40 12/02/16 12:58 99 13 40 12/02/16 12:00 93 12/02/16 12:00 40 12/02/16 12:00 98.2 98 20 106/57 98 Mechanical Ventilator 12/02/16 10:37 99 14 40 12/02/16 09:15 100 Height (Feet): 5 Height (Inches): 3.00 Weight (Pounds): 116 General Appearance: no acute distress HEENT: status post trach Respiratory/Chest: other - on ventilator , few rhonchi Cardiovascular: normal rate Abdomen: soft, non tender, other - GT feeding Extremities: no edema Neurologic/Psychiatric: alert, responsive Laboratory Tests Test 12/03/16 07:55 White Blood Count 9.9 K/UL (4.8-10.8) Red Blood Count 4.07 M/UL (4.20-5.40) L Hemoglobin 13.1 G/DL (12.0-16.0) Hematocrit 39.4 % (37.0-47.0) Mean Corpuscular Volume 97 FL (80-99) Mean Corpuscular Hemoglobin 32.1 PG (27.0-31.0) H Mean Corpuscular Hemoglobin Concent 33.2 G/DL (32.0-36.0) Red Cell Distribution Width 12.5 % (11.6-14.8) Platelet Count 223 K/UL (150-450) Mean Platelet Volume 6.7 FL (6.5-10.1) Neutrophils (%) (Auto) 58.1 % (45.0-75.0) Lymphocytes (%) (Auto) 17.4 % (20.0-45.0) L Monocytes (%) (Auto) 12.5 % (1.0-10.0) H Eosinophils (%) (Auto) 10.7 % (0.0-3.0) H Basophils (%) (Auto) 1.4 % (0.0-2.0) Sodium Level 138 mEQ/L (135-145) Potassium Level 4.6 mEQ/L (3.4-4.9) Chloride Level 96 mEQ/L (98-107) L Carbon Dioxide Level 32 mEQ/L (20-30) H Anion Gap 10 (5-15) Blood Urea Nitrogen 29 mg/dL (7-23) H Creatinine 0.6 mg/dL (0.5-0.9) Estimat Glomerular Filtration Rate mL/min (>60) Glucose Level 106 mg/dL (74-106) Calcium Level 9.7 mg/dL (8.6-10.2) Magnesium Level 1.9 mg/dL (1.7-2.5) Total Bilirubin 0.3 mg/dL (0.0-1.2) Aspartate Amino Transf (AST/SGOT) 20 U/L (5-40) Alanine Aminotransferase (ALT/SGPT) 13 U/L (3-33) Alkaline Phosphatase 91 U/L (35-104) Total Protein 7.5 g/dL (6.6-8.7) Albumin 3.2 g/dL (3.5-5.2) L Globulin 4.3 g/dL Albumin/Globulin Ratio 0.7 (1.0-2.7) L Current Medications Medications (Trade) Dose Ordered Sig/Josiah Route PRN Reason Start Time Stop Time Status Last Admin Dose Admin Acetaminophen (Tylenol) 650 mg Q4H PRN GT Pain Scale (3-5) 11/12/16 09:00 12/12/16 08:59 11/24/16 15:08 Amitriptyline HCl (Elavil) 10 mg BEDTIME GT 11/12/16 21:00 12/12/16 20:59 12/02/16 20:44 Ascorbic Acid (Vitamin C) 500 mg DAILY NG 11/25/16 09:00 12/25/16 08:59 12/03/16 08:30 Digoxin (Lanoxin) 0.125 mg DAILY GT 11/12/16 10:00 12/12/16 09:59 12/02/16 09:15 Docusate Sodium (Colace) 100 mg DAILY GT 11/12/16 10:00 12/12/16 09:59 12/02/16 09:14 Heparin Sodium (Porcine) (Heparin 5000 units/ml) 5,000 units EVERY 12 HOURS SUBQ 11/12/16 10:00 12/12/16 09:59 12/03/16 08:30 Levothyroxine Sodium (Synthroid) 150 mcg ACBREAKFAST GT 11/14/16 06:30 12/14/16 06:29 12/03/16 06:15 Midodrine (Pro-Amatine) 5 mg THREE TIMES A DAY GT 11/13/16 13:00 12/13/16 12:59 12/03/16 08:30 Multivitamins (Multivitamins W/ Minerals 15ml Liquid) 15 ml DAILY NG 11/25/16 09:00 12/25/16 08:59 12/03/16 08:29 JENNIFER MCKEE Dec 03, 2016 08:39
[2016-12-03] MEDS: Digoxin 0.125mg tab GT SCH (08:44)
[2016-12-03 12:00] VITALS: BP 107/55
--- NOTE | 2016-12-03 14:27 | General Progress Note ---
Assessment/Plan Assessment/Plan GI Consult GT changed at bedside OK to resume use I will be away for 2 weeks Coverage available. Call if questions. P Khorrami Subjective Allergies: Coded Allergies: PENICILLINS (Verified Allergy, Unknown, 07/31/16) Objective Last 24 Hour Vital Signs Date Time Temp Pulse Resp B/P Pulse Ox O2 Delivery O2 Flow Rate FiO2 12/03/16 13:19 92 12 40 12/03/16 12:00 97.8 89 21 107/55 100 Mechanical Ventilator 12/03/16 12:00 87 12/03/16 12:00 40 12/03/16 11:29 90 12 40 12/03/16 09:22 99 12 40 12/03/16 08:44 98 12/03/16 08:00 95 12/03/16 08:00 97.7 98 20 106/61 99 Mechanical Ventilator 12/03/16 08:00 40 12/03/16 07:16 91 13 40 12/03/16 04:54 91 12 40 12/03/16 04:00 90 12/03/16 04:00 40 12/03/16 04:00 97.0 92 20 109/52 Mechanical Ventilator 40 12/03/16 02:41 92 13 40 12/03/16 00:44 95 12 40 12/03/16 00:00 98.1 106 18 144/67 Mechanical Ventilator 12/03/16 00:00 40 12/03/16 00:00 99 12/02/16 22:58 102 13 40 12/02/16 22:00 97.3 101 15 116/81 Mechanical Ventilator 12/02/16 20:56 96 13 40 12/02/16 20:00 40 12/02/16 20:00 98.1 83 23 127/82 Mechanical Ventilator 12/02/16 19:16 93 12/02/16 18:49 97 16 40 12/02/16 17:12 105 19 40 12/02/16 16:00 40 12/02/16 16:00 98.0 95 18 111/59 99 Mechanical Ventilator 12/02/16 16:00 94 12/02/16 14:30 96 13 40 Intake and Output 12/02/16 12/03/16 19:00 07:00 Intake Total 700 ml 700 ml Output Total 300 ml 300 ml Balance 400 ml 400 ml Intake Free Water 100 ml 200 ml Tube Feeding 480 ml 420 ml Other 120 ml 80 ml Output Urine Total 300 ml 300 ml # Bowel Movements 8 2 Laboratory Tests 12/03/16 07:55: White Blood Count 9.9, Red Blood Count 4.07L, Hemoglobin 13.1, Hematocrit 39.4, Mean Corpuscular Volume 97, Mean Corpuscular Hemoglobin 32.1H, Mean Corpuscular Hemoglobin Concent 33.2, Red Cell Distribution Width 12.5, Platelet Count 223, Mean Platelet Volume 6.7, Neutrophils (%) (Auto) 58.1, Lymphocytes (%) (Auto) 17.4L, Monocytes (%) (Auto) 12.5H, Eosinophils (%) (Auto) 10.7H, Basophils (%) ( Auto) 1.4, Sodium Level 138, Potassium Level 4.6, Chloride Level 96L, Carbon Dioxide Level 32H, Anion Gap 10, Blood Urea Nitrogen 29H, Creatinine 0.6, Estimat Glomerular Filtration Rate , Glucose Level 106, Calcium Level 9.7, Magnesium Level 1.9, Total Bilirubin 0.3, Aspartate Amino Transf (AST/SGOT) 20, Alanine Aminotransferase (ALT/SGPT) 13, Alkaline Phosphatase 91, Total Protein 7.5, Albumin 3.2L, Globulin 4.3, Albumin/Globulin Ratio 0.7L Height (Feet): 5 Height (Inches): 3.00 Weight (Pounds): 116 BIN MYERS Dec 03, 2016 14:27
--- NOTE | 2016-12-03 15:12 | Pulmonology Progress Note ---
Assessment/Plan Assessment/Plan IMPRESSION: 1. Respiratory failure, chronic encephalopathy. 2. Left lung nodule metastatic 3. 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 metastatic 4. Sepsis. 5. Tracheostomy G-tube. 6. Leukocytosis 7. History of Acute renal failure. 8. Lower extremity deep vein thrombosis per history. 9. Chronic encephalopathy PLAN exam reviewed and overall same care noted and reviewed respiratory care no change at present no recent labs portable vent as able vital signs same and noted maintain full ventilator support discharge planning to home with home vent home vent and back up vent will need full care at home and 24 hour attendant patient needs GT feeding for dysphagia and high risk of aspiration impression, plan, and exam edited and reviewed in detail care discussed with RN Subjective ROS Limited/Unobtainable: Yes Allergies: Coded Allergies: PENICILLINS (Verified Allergy, Unknown, 07/31/16) Subjective care noted events reviewed awaiting final training and dc Objective Last 24 Hour Vital Signs Date Time Temp Pulse Resp B/P Pulse Ox O2 Delivery O2 Flow Rate FiO2 12/03/16 13:19 92 12 40 12/03/16 12:00 97.8 89 21 107/55 100 Mechanical Ventilator 12/03/16 12:00 87 12/03/16 12:00 40 12/03/16 11:29 90 12 40 12/03/16 09:22 99 12 40 12/03/16 08:44 98 12/03/16 08:00 95 12/03/16 08:00 97.7 98 20 106/61 99 Mechanical Ventilator 12/03/16 08:00 40 12/03/16 07:16 91 13 40 12/03/16 04:54 91 12 40 12/03/16 04:00 90 12/03/16 04:00 40 12/03/16 04:00 97.0 92 20 109/52 Mechanical Ventilator 40 12/03/16 02:41 92 13 40 12/03/16 00:44 95 12 40 12/03/16 00:00 98.1 106 18 144/67 Mechanical Ventilator 12/03/16 00:00 40 12/03/16 00:00 99 12/02/16 22:58 102 13 40 12/02/16 22:00 97.3 101 15 116/81 Mechanical Ventilator 12/02/16 20:56 96 13 40 12/02/16 20:00 40 12/02/16 20:00 98.1 83 23 127/82 Mechanical Ventilator 12/02/16 19:16 93 12/02/16 18:49 97 16 40 12/02/16 17:12 105 19 40 12/02/16 16:00 40 12/02/16 16:00 98.0 95 18 111/59 99 Mechanical Ventilator 12/02/16 16:00 94 Intake and Output 12/02/16 12/03/16 19:00 07:00 Intake Total 700 ml 700 ml Output Total 300 ml 300 ml Balance 400 ml 400 ml Intake Free Water 100 ml 200 ml Tube Feeding 480 ml 420 ml Other 120 ml 80 ml Output Urine Total 300 ml 300 ml # Bowel Movements 8 2 Objective Sp02 EP Interpretation: reviewed, normal General Appearance: normal inspection, well appearing, no apparent distress, Head: normocephalic, atraumatic Eyes: bilateral eye normal inspection ENT: normal ENT inspection, Neck: normal inspection, no meningismus, carotid 2+ trach Respiratory: decreased breath sounds, without wheeze or rhonchi Cardiovascular #1: regular rate, rhythm, no murmur without MRG Gastrointestinal: non tender, soft, non-distended, no guarding, no rebound; GT Musculoskeletal: no CCE Neurologic: weak diffusely; awake; nonfocal reviewed and edited; overall same Laboratory Tests 12/03/16 07:55: White Blood Count 9.9, Red Blood Count 4.07L, Hemoglobin 13.1, Hematocrit 39.4, Mean Corpuscular Volume 97, Mean Corpuscular Hemoglobin 32.1H, Mean Corpuscular Hemoglobin Concent 33.2, Red Cell Distribution Width 12.5, Platelet Count 223, Mean Platelet Volume 6.7, Neutrophils (%) (Auto) 58.1, Lymphocytes (%) (Auto) 17.4L, Monocytes (%) (Auto) 12.5H, Eosinophils (%) (Auto) 10.7H, Basophils (%) ( Auto) 1.4, Sodium Level 138, Potassium Level 4.6, Chloride Level 96L, Carbon Dioxide Level 32H, Anion Gap 10, Blood Urea Nitrogen 29H, Creatinine 0.6, Estimat Glomerular Filtration Rate , Glucose Level 106, Calcium Level 9.7, Magnesium Level 1.9, Total Bilirubin 0.3, Aspartate Amino Transf (AST/SGOT) 20, Alanine Aminotransferase (ALT/SGPT) 13, Alkaline Phosphatase 91, Total Protein 7.5, Albumin 3.2L, Globulin 4.3, Albumin/Globulin Ratio 0.7L Current Medications Medications (Trade) Dose Ordered Sig/Josiah Route PRN Reason Start Time Stop Time Status Last Admin Dose Admin Acetaminophen (Tylenol) 650 mg Q4H PRN GT Pain Scale (3-5) 11/12/16 09:00 12/12/16 08:59 11/24/16 15:08 Amitriptyline HCl (Elavil) 10 mg BEDTIME GT 11/12/16 21:00 12/12/16 20:59 12/02/16 20:44 Ascorbic Acid (Vitamin C) 500 mg DAILY NG 11/25/16 09:00 12/25/16 08:59 12/03/16 08:30 Digoxin (Lanoxin) 0.125 mg DAILY GT 11/12/16 10:00 12/12/16 09:59 12/03/16 08:44 Docusate Sodium (Colace) 100 mg DAILY GT 11/12/16 10:00 12/12/16 09:59 12/02/16 09:14 Heparin Sodium (Porcine) (Heparin 5000 units/ml) 5,000 units EVERY 12 HOURS SUBQ 11/12/16 10:00 12/12/16 09:59 12/03/16 08:30 Levothyroxine Sodium (Synthroid) 150 mcg ACBREAKFAST GT 11/14/16 06:30 12/14/16 06:29 12/03/16 06:15 Midodrine (Pro-Amatine) 5 mg THREE TIMES A DAY GT 11/13/16 13:00 12/13/16 12:59 12/03/16 13:09 Multivitamins (Multivitamins W/ Minerals 15ml Liquid) 15 ml DAILY NG 11/25/16 09:00 12/25/16 08:59 12/03/16 08:29 MARCY MAJOR Dec 03, 2016 15:12
[2016-12-03 16:00] VITALS: BP 105/61
--- NOTE | 2016-12-03 16:02 | Progress Note ---
DATE: 12/03/2016 CARDIOLOGY PROGRESS NOTE SUBJECTIVE: The patient is on ventilator support. Ongoing training for family members is for discharge plan at home and ventilator care. OBJECTIVE: GENERAL: No new distress. Monitored sinus. VITAL SIGNS: Blood pressure 106/61, pulse 98, respirations 20, afebrile. LUNGS: Bilateral breath sounds. HEART: Regular rhythm and rate. Normal S1 and S2. ABDOMEN: Soft. EXTREMITIES: Muscle atrophy. Trace edema. LABORATORY DATA: Sodium 138, potassium 4.6, bicarbonate 32, BUN 29, creatinine 0.6, and magnesium 1.9. Albumin 3.2. White count 9.9 and hemoglobin 13.1. IMPRESSION: 1. No signs of acute congestive heart failure, ventilator dependent. 2. Metastatic head and neck cancer. 3. Respiratory failure with tracheostomy. 4. Chronic diastolic congestive heart failure. 5. Paroxysmal atrial fibrillation. PLAN: Continue current cardiovascular regimen without change in anticipation of discharge and can titrate midodrine dosing as an outpatient based on blood pressure parameters. Chi Bhatti M.D. DR: BRITTANEY JOB#: [id number] CC:
[2016-12-03] MEDS ORDERED: Sterile Water Irrig 1000ml IRRIG ONE (17:47)
[2016-12-03] MEDS ORDERED: NS 275ml ONE (17:47)
[2016-12-03] MEDS ORDERED: D5W 275ml ONE (17:47)
[2016-12-03 20:00] VITALS: BP 114/50
[2016-12-04] VITALS (7 sets, daily range): BP systolic 100–133; BP diastolic 51–76
--- NOTE | 2016-12-04 07:57 | Pulmonology Progress Note ---
Assessment/Plan Assessment/Plan IMPRESSION: 1. Respiratory failure, chronic encephalopathy. 2. Left lung nodule metastatic 3. 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 metastatic 4. Sepsis. 5. Tracheostomy G-tube. 6. Leukocytosis 7. History of Acute renal failure. 8. Lower extremity deep vein thrombosis per history. 9. Chronic encephalopathy PLAN exam reviewed and overall same care noted and reviewed respiratory care portable vent tolerated vital signs stable maintain full ventilator support discharge planning to home with home vent rx written d/w case management impression, plan, and exam edited and reviewed in detail care discussed with RN Subjective ROS Limited/Unobtainable: Yes Allergies: Coded Allergies: PENICILLINS (Verified Allergy, Unknown, 07/31/16) Subjective care noted events reviewed tolerating portable vent Objective Last 24 Hour Vital Signs Date Time Temp Pulse Resp B/P Pulse Ox O2 Delivery O2 Flow Rate FiO2 12/04/16 07:05 88 18 40 12/04/16 05:10 97 13 40 12/04/16 04:00 97.3 87 19 100/60 Mechanical Ventilator 12/04/16 04:00 40 12/04/16 04:00 87 12/04/16 03:18 88 12 40 12/04/16 00:52 90 12 40 12/04/16 00:00 97.7 90 19 108/76 Mechanical Ventilator 12/04/16 00:00 40 12/04/16 00:00 88 12/03/16 22:43 99 13 40 12/03/16 21:30 107 14 40 12/03/16 21:00 96 12/03/16 20:00 97.9 73 16 114/50 Mechanical Ventilator 12/03/16 20:00 40 12/03/16 19:12 80 12 40 12/03/16 17:29 92 14 40 12/03/16 16:00 40 12/03/16 16:00 95 12/03/16 16:00 97.7 86 20 105/61 100 Mechanical Ventilator 12/03/16 15:25 90 13 40 12/03/16 13:19 92 12 40 12/03/16 12:00 97.8 89 21 107/55 100 Mechanical Ventilator 12/03/16 12:00 87 12/03/16 12:00 40 12/03/16 11:29 90 12 40 12/03/16 09:22 99 12 40 12/03/16 08:44 98 7/2/17 08:00 95 12/03/16 08:00 97.7 98 20 106/61 99 Mechanical Ventilator 12/03/16 08:00 40 Intake and Output 12/03/16 12/04/16 19:00 07:00 Intake Total 660 ml 520 ml Output Total 450 ml 400 ml Balance 210 ml 120 ml Intake Free Water 100 ml 80 ml Tube Feeding 480 ml 440 ml Other 80 ml Output Urine Total 450 ml 400 ml # Bowel Movements 1 4 Objective Sp02 EP Interpretation: reviewed, normal General Appearance: normal inspection, well appearing, no apparent distress, Head: normocephalic, atraumatic Eyes: bilateral eye normal inspection ENT: normal ENT inspection, Neck: normal inspection, no meningismus, carotid 2+ trach Respiratory: decreased breath sounds, without wheeze or rhonchi Cardiovascular #1: regular rate, rhythm, no murmur without MRG Gastrointestinal: non tender, soft, non-distended, no guarding, no rebound; GT Musculoskeletal: no CCE Neurologic: weak diffusely; awake; nonfocal reviewed and edited; overall same Current Medications Medications (Trade) Dose Ordered Sig/Josiah Route PRN Reason Start Time Stop Time Status Last Admin Dose Admin Acetaminophen (Tylenol) 650 mg Q4H PRN GT Pain Scale (3-5) 11/12/16 09:00 12/12/16 08:59 11/24/16 15:08 Amitriptyline HCl (Elavil) 10 mg BEDTIME GT 11/12/16 21:00 12/12/16 20:59 12/03/16 21:00 Ascorbic Acid (Vitamin C) 500 mg DAILY NG 11/25/16 09:00 12/25/16 08:59 12/03/16 08:30 Digoxin (Lanoxin) 0.125 mg DAILY GT 11/12/16 10:00 12/12/16 09:59 12/03/16 08:44 Docusate Sodium (Colace) 100 mg DAILY GT 11/12/16 10:00 12/12/16 09:59 12/02/16 09:14 Heparin Sodium (Porcine) (Heparin 5000 units/ml) 5,000 units EVERY 12 HOURS SUBQ 11/12/16 10:00 12/12/16 09:59 12/03/16 21:42 Levothyroxine Sodium (Synthroid) 150 mcg ACBREAKFAST GT 11/14/16 06:30 12/14/16 06:29 12/04/16 05:22 Midodrine (Pro-Amatine) 5 mg THREE TIMES A DAY GT 11/13/16 13:00 12/13/16 12:59 12/03/16 17:21 Multivitamins (Multivitamins W/ Minerals 15ml Liquid) 15 ml DAILY NG 11/25/16 09:00 12/25/16 08:59 12/03/16 08:29 MARCY MAJOR Dec 04, 2016 07:56
[2016-12-04] MEDS: Multivitamins W/Minerals 15 ML UDC NG SCH (09:11)
[2016-12-04] MEDS: Docusate 100mg/10ml Liq GT SCH (09:11)
[2016-12-04] MEDS: Ascorbic Acid 500mg tab NG SCH (09:11)
[2016-12-04] MEDS: Digoxin 0.125mg tab GT SCH (09:12)
[2016-12-04] MEDS: Heparin 5000 units/ml inj SUBQ SCH ×2 (09:15→20:38)
--- NOTE | 2016-12-04 12:27 | Infectious Diseases Prog Note ---
Assessment/Plan Assessment/Plan antibiotics : none A 1. UTI s/p rx 2. leucocytosis resolved 3. respiratory failure 4. HTN 5. tongue cancer 6. pseudomonas pneumonia s/p rx P 1. continue off antibiotics Subjective ROS Limited/Unobtainable: Yes Allergies: Coded Allergies: PENICILLINS (Verified Allergy, Unknown, 07/31/16) Objective Vital Signs Last 24 Hour Vital Signs Date Time Temp Pulse Resp B/P Pulse Ox O2 Delivery O2 Flow Rate FiO2 12/04/16 10:56 86 14 40 12/04/16 09:15 88 18 40 12/04/16 09:12 83 12/04/16 08:00 87 12/04/16 08:00 98.1 83 14 116/51 98 Mechanical Ventilator 12/04/16 08:00 40 12/04/16 07:05 88 18 40 12/04/16 05:10 97 13 40 12/04/16 04:00 97.3 87 19 100/60 Mechanical Ventilator 12/04/16 04:00 40 12/04/16 04:00 87 12/04/16 03:18 88 12 40 12/04/16 00:52 90 12 40 12/04/16 00:00 97.7 90 19 108/76 Mechanical Ventilator 12/04/16 00:00 40 12/04/16 00:00 88 12/03/16 22:43 99 13 40 12/03/16 21:30 107 14 40 12/03/16 21:00 96 12/03/16 20:00 97.9 73 16 114/50 Mechanical Ventilator 12/03/16 20:00 40 12/03/16 19:12 80 12 40 12/03/16 17:29 92 14 40 12/03/16 16:00 40 12/03/16 16:00 95 12/03/16 16:00 97.7 86 20 105/61 100 Mechanical Ventilator 12/03/16 15:25 90 13 40 12/03/16 13:19 92 12 40 Height (Feet): 5 Height (Inches): 3.00 Weight (Pounds): 116 HEENT: status post trach Respiratory/Chest: lungs clear Cardiovascular: normal rate, regular rhythm, no gallop/murmur Abdomen: soft, non tender, other - GT Extremities: no edema MARA BLOCK Dec 04, 2016 12:27
--- NOTE | 2016-12-04 13:48 | General Progress Note ---
Assessment/Plan Problem List: (1) UTI (urinary tract infection) ICD Codes: N39.0 - Urinary tract infection, site not specified SNOMED: 40495188 Qualifiers: Qualified Codes: N30.00 - Acute cystitis without hematuria (2) Tongue malignant neoplasm ICD Codes: C02.9 - Malignant neoplasm of tongue, unspecified SNOMED: 536686078 (3) Lung nodule seen on imaging study ICD Codes: R91.1 - Solitary pulmonary nodule SNOMED: 995285928 (4) Respiratory failure ICD Codes: J96.90 - Respiratory failure, unspecified, unspecified whether with hypoxia or hypercapnia SNOMED: 696734856 Qualifiers: Qualified Codes: J96.10 - Chronic respiratory failure, unspecified whether with hypoxia or hypercapnia (5) Malfunction of gastrostomy tube ICD Codes: K94.23 - Gastrostomy malfunction SNOMED: 214293955 Assessment/Plan gt has been changed at the bedside tolerating TF dc planning per primary team Subjective ROS Limited/Unobtainable: No Allergies: Coded Allergies: PENICILLINS (Verified Allergy, Unknown, 07/31/16) Objective Last 24 Hour Vital Signs Date Time Temp Pulse Resp B/P Pulse Ox O2 Delivery O2 Flow Rate FiO2 12/04/16 13:11 88 14 40 12/04/16 12:00 40 12/04/16 12:00 97.7 88 14 130/67 100 Mechanical Ventilator 12/04/16 12:00 85 12/04/16 10:56 86 14 40 12/04/16 09:15 88 18 40 12/04/16 09:12 83 12/04/16 08:00 87 12/04/16 08:00 98.1 83 14 116/51 98 Mechanical Ventilator 12/04/16 08:00 40 12/04/16 07:05 88 18 40 12/04/16 05:10 97 13 40 12/04/16 04:00 97.3 87 19 100/60 Mechanical Ventilator 12/04/16 04:00 40 12/04/16 04:00 87 12/04/16 03:18 88 12 40 12/04/16 00:52 90 12 40 12/04/16 00:00 97.7 90 19 108/76 Mechanical Ventilator 12/04/16 00:00 40 12/04/16 00:00 88 12/03/16 22:43 99 13 40 12/03/16 21:30 107 14 40 12/03/16 21:00 96 12/03/16 20:00 97.9 73 16 114/50 Mechanical Ventilator 12/03/16 20:00 40 12/03/16 19:12 80 12 40 12/03/16 17:29 92 14 40 12/03/16 16:00 40 12/03/16 16:00 95 12/03/16 16:00 97.7 86 20 105/61 100 Mechanical Ventilator 12/03/16 15:25 90 13 40 Intake and Output 12/03/16 12/04/16 19:00 07:00 Intake Total 660 ml 520 ml Output Total 450 ml 400 ml Balance 210 ml 120 ml Intake Free Water 100 ml 80 ml Tube Feeding 480 ml 440 ml Other 80 ml Output Urine Total 450 ml 400 ml # Bowel Movements 1 4 Height (Feet): 5 Height (Inches): 3.00 Weight (Pounds): 116 General Appearance: no apparent distress EENT: normal ENT inspection Neck: supple Cardiovascular: normal rate Respiratory/Chest: decreased breath sounds Abdomen: normal bowel sounds, non tender, soft Extremities: non-tender SALVADOR VELASQUEZ Dec 04, 2016 13:48
[2016-12-05 03:57] VITALS: BP 107/61
--- NOTE | 2016-12-05 05:42 | General Progress Note ---
Assessment/Plan Problem List: (1) UTI (urinary tract infection) ICD Codes: N39.0 - Urinary tract infection, site not specified SNOMED: 84751219 Qualifiers: Qualified Codes: N30.00 - Acute cystitis without hematuria (2) Tongue malignant neoplasm ICD Codes: C02.9 - Malignant neoplasm of tongue, unspecified SNOMED: 420493386 (3) Lung nodule seen on imaging study ICD Codes: R91.1 - Solitary pulmonary nodule SNOMED: 371307012 (4) Respiratory failure ICD Codes: J96.90 - Respiratory failure, unspecified, unspecified whether with hypoxia or hypercapnia SNOMED: 707606867 Qualifiers: Qualified Codes: J96.10 - Chronic respiratory failure, unspecified whether with hypoxia or hypercapnia (5) Malfunction of gastrostomy tube ICD Codes: K94.23 - Gastrostomy malfunction SNOMED: 647385993 Assessment/Plan gt has been changed at the bedside tolerating TF dc planning per primary team Subjective ROS Limited/Unobtainable: No Allergies: Coded Allergies: PENICILLINS (Verified Allergy, Unknown, 07/31/16) Objective Last 24 Hour Vital Signs Date Time Temp Pulse Resp B/P Pulse Ox O2 Delivery O2 Flow Rate FiO2 12/05/16 04:49 85 12 40 12/05/16 04:00 88 12/05/16 04:00 40 12/05/16 03:57 96.8 89 16 107/61 99 Mechanical Ventilator 5.0 12/05/16 03:18 88 14 40 12/05/16 01:30 88 13 40 12/05/16 00:00 85 12/05/16 00:00 40 12/04/16 23:30 97.5 88 17 106/53 99 Mechanical Ventilator 5.0 12/04/16 22:47 92 15 40 12/04/16 21:30 110 22 40 12/04/16 20:09 87 12/04/16 20:00 40 12/04/16 19:44 97.0 98 17 133/73 Trach Collar 12/04/16 19:13 92 17 40 12/04/16 17:13 87 14 40 12/04/16 16:38 97.7 85 20 113/61 100 Mechanical Ventilator 12/04/16 16:00 40 12/04/16 16:00 87 12/04/16 15:16 88 14 40 12/04/16 13:11 88 14 40 12/04/16 12:00 40 12/04/16 12:00 97.7 88 14 130/67 100 Mechanical Ventilator 12/04/16 12:00 85 12/04/16 10:56 86 14 40 12/04/16 09:15 88 18 40 12/04/16 09:12 83 12/04/16 08:00 87 12/04/16 08:00 98.1 83 14 116/51 98 Mechanical Ventilator 12/04/16 08:00 40 12/04/16 07:05 88 18 40 Intake and Output 12/04/16 12/05/16 19:00 07:00 Intake Total 260 ml 400 ml Output Total 400 ml Balance -140 ml 400 ml Intake Free Water 100 ml Tube Feeding 160 ml 400 ml Output Urine Total 400 ml # Bowel Movements 4 3 Height (Feet): 5 Height (Inches): 3.00 Weight (Pounds): 116 General Appearance: no apparent distress EENT: normal ENT inspection Neck: supple Cardiovascular: normal rate Respiratory/Chest: decreased breath sounds Abdomen: normal bowel sounds, non tender, soft Extremities: non-tender SALVADOR VELASQUEZ Dec 05, 2016 05:42
[2016-12-05 08:08] VITALS: BP 111/41
[2016-12-05] MEDS: Docusate 100mg/10ml Liq GT SCH (09:00)
[2016-12-05] MEDS: Ascorbic Acid 500mg tab NG SCH (09:10)
[2016-12-05] MEDS: Digoxin 0.125mg tab GT SCH (09:10)
[2016-12-05] MEDS: Multivitamins W/Minerals 15 ML UDC NG SCH (09:10)
[2016-12-05] MEDS: Heparin 5000 units/ml inj SUBQ SCH ×2 (09:18→21:37)
--- NOTE | 2016-12-05 09:50 | Infectious Diseases Prog Note ---
Assessment/Plan Assessment/Plan antibiotics : none A 1. UTI s/p rx 2. leucocytosis resolved 3. respiratory failure 4. HTN 5. tongue cancer 6. pseudomonas pneumonia s/p rx P 1. continue off antibiotics Subjective ROS Limited/Unobtainable: Yes Allergies: Coded Allergies: PENICILLINS (Verified Allergy, Unknown, 07/31/16) Objective Vital Signs Last 24 Hour Vital Signs Date Time Temp Pulse Resp B/P Pulse Ox O2 Delivery O2 Flow Rate FiO2 12/05/16 09:24 81 13 40 12/05/16 09:10 81 12/05/16 08:08 98.0 81 13 111/41 100 Mechanical Ventilator 40 12/05/16 08:00 40 12/05/16 06:39 81 13 40 12/05/16 04:49 85 12 40 12/05/16 04:00 88 12/05/16 04:00 40 12/05/16 03:57 96.8 89 16 107/61 99 Mechanical Ventilator 5.0 12/05/16 03:18 88 14 40 12/05/16 01:30 88 13 40 12/05/16 00:00 85 12/05/16 00:00 40 12/04/16 23:30 97.5 88 17 106/53 99 Mechanical Ventilator 5.0 12/04/16 22:47 92 15 40 12/04/16 21:30 110 22 40 12/04/16 20:09 87 12/04/16 20:00 40 12/04/16 19:44 97.0 98 17 133/73 Trach Collar 12/04/16 19:13 92 17 40 12/04/16 17:13 87 14 40 12/04/16 16:38 97.7 85 20 113/61 100 Mechanical Ventilator 12/04/16 16:00 40 12/04/16 16:00 87 12/04/16 15:16 88 14 40 12/04/16 13:11 88 14 40 12/04/16 12:00 40 12/04/16 12:00 97.7 88 14 130/67 100 Mechanical Ventilator 12/04/16 12:00 85 12/04/16 10:56 86 14 40 Height (Feet): 5 Height (Inches): 3.00 Weight (Pounds): 116 HEENT: status post trach Respiratory/Chest: rhonchi - bilaterally Cardiovascular: normal rate, regular rhythm, no gallop/murmur Abdomen: soft, non tender, other - GT Extremities: no edema MARA BLOCK Dec 05, 2016 09:50
--- NOTE | 2016-12-05 10:47 | Pulmonology Progress Note ---
Assessment/Plan Assessment/Plan IMPRESSION: 1. Respiratory failure, chronic encephalopathy. 2. Left lung nodule metastatic 3. 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 metastatic 4. Sepsis. 5. Tracheostomy G-tube. 6. Leukocytosis 7. History of Acute renal failure. 8. Lower extremity deep vein thrombosis per history. 9. Chronic encephalopathy PLAN exam reviewed and overall same care noted and reviewed respiratory care portable vent home DME vital signs stable maintain full ventilator support discharge planning to home with home vent in am rx written and left on chart d/w case management impression, plan, and exam edited and reviewed in detail care discussed with RN Subjective ROS Limited/Unobtainable: Yes Allergies: Coded Allergies: PENICILLINS (Verified Allergy, Unknown, 07/31/16) Subjective care noted events reviewed tolerating portable vent RX written Objective Last 24 Hour Vital Signs Date Time Temp Pulse Resp B/P Pulse Ox O2 Delivery O2 Flow Rate FiO2 12/05/16 09:24 81 13 40 12/05/16 09:10 81 12/05/16 08:08 98.0 81 13 111/41 100 Mechanical Ventilator 40 12/05/16 08:00 80 12/05/16 08:00 40 12/05/16 06:39 81 13 40 12/05/16 04:49 85 12 40 12/05/16 04:00 88 12/05/16 04:00 40 12/05/16 03:57 96.8 89 16 107/61 99 Mechanical Ventilator 5.0 12/05/16 03:18 88 14 40 12/05/16 01:30 88 13 40 12/05/16 00:00 85 12/05/16 00:00 40 12/04/16 23:30 97.5 88 17 106/53 99 Mechanical Ventilator 5.0 12/04/16 22:47 92 15 40 12/04/16 21:30 110 22 40 12/04/16 20:09 87 12/04/16 20:00 40 12/04/16 19:44 97.0 98 17 133/73 Trach Collar 12/04/16 19:13 92 17 40 12/04/16 17:13 87 14 40 12/04/16 16:38 97.7 85 20 113/61 100 Mechanical Ventilator 12/04/16 16:00 40 12/04/16 16:00 87 12/04/16 15:16 88 14 40 12/04/16 13:11 88 14 40 12/04/16 12:00 40 12/04/16 12:00 97.7 88 14 130/67 100 Mechanical Ventilator 12/04/16 12:00 85 12/04/16 10:56 86 14 40 Intake and Output 12/04/16 12/05/16 19:00 07:00 Intake Total 260 ml 400 ml Output Total 400 ml 225 ml Balance -140 ml 175 ml Intake Free Water 100 ml Tube Feeding 160 ml 400 ml Output Urine Total 400 ml 225 ml # Bowel Movements 4 6 Objective Sp02 EP Interpretation: reviewed, normal General Appearance: normal inspection, well appearing, no apparent distress, Head: normocephalic, atraumatic Eyes: bilateral eye normal inspection ENT: normal ENT inspection, Neck: normal inspection, no meningismus, carotid 2+ trach Respiratory: decreased breath sounds, without wheeze or rhonchi Cardiovascular #1: regular rate, rhythm, no murmur without MRG Gastrointestinal: non tender, soft, non-distended, no guarding, no rebound; GT Musculoskeletal: no CCE Neurologic: weak diffusely; awake; nonfocal reviewed and edited; overall same Current Medications Medications (Trade) Dose Ordered Sig/Josiah Route PRN Reason Start Time Stop Time Status Last Admin Dose Admin Acetaminophen (Tylenol) 650 mg Q4H PRN GT Pain Scale (3-5) 11/12/16 09:00 12/12/16 08:59 11/24/16 15:08 Amitriptyline HCl (Elavil) 10 mg BEDTIME GT 11/12/16 21:00 12/12/16 20:59 12/04/16 20:36 Ascorbic Acid (Vitamin C) 500 mg DAILY NG 11/25/16 09:00 12/25/16 08:59 12/05/16 09:10 Digoxin (Lanoxin) 0.125 mg DAILY GT 11/12/16 10:00 12/12/16 09:59 12/05/16 09:10 Docusate Sodium (Colace) 100 mg DAILY GT 11/12/16 10:00 12/12/16 09:59 12/04/16 09:11 Heparin Sodium (Porcine) (Heparin 5000 units/ml) 5,000 units EVERY 12 HOURS SUBQ 11/12/16 10:00 12/12/16 09:59 12/05/16 09:18 Levothyroxine Sodium (Synthroid) 150 mcg ACBREAKFAST GT 11/14/16 06:30 12/14/16 06:29 12/05/16 06:08 Midodrine (Pro-Amatine) 5 mg THREE TIMES A DAY GT 11/13/16 13:00 12/13/16 12:59 12/05/16 09:10 Multivitamins (Multivitamins W/ Minerals 15ml Liquid) 15 ml DAILY NG 11/25/16 09:00 12/25/16 08:59 12/05/16 09:10 MARCY MAJOR Dec 05, 2016 10:47
[2016-12-05 11:47] VITALS: BP 103/74
[2016-12-05 15:54] VITALS: BP 113/59
[2016-12-05 20:00] VITALS: BP 107/72
--- NOTE | 2016-12-05 21:45 | Progress Note ---
DATE: 12/05/2016 SUBJECTIVE: Condition remains unchanged. Discharge planning in progress. OBJECTIVE: VITAL SIGNS: Blood pressure 111/41, pulse 81, and respiratory rate 13. No fevers. LUNGS: Good breath sounds. HEART: Regular rhythm and rate. Normal S1 and S2. ABDOMEN: Soft. No edema. IMPRESSION: 1. Ventilator dependent respiratory failure. 2. 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 3. Chronic diastolic congestive heart failure. 4. Paroxysmal atrial fibrillation. 5. Chronic hypotension on midodrine support. 6. History of deep venous thrombosis. PLAN: Discharge planning medications reviewed and reconciled. No additional cardiovascular workup presently indicated. Chi Bhatti M.D. DR: KIM JOB#: [id number] CC:
--- NOTE | 2016-12-05 21:45 | Progress Note ---
DATE: 12/04/2016 CARDIOLOGY PROGRESS NOTE SUBJECTIVE: The patient is on ventilator support via tracheostomy. Monitored rhythm, sinus. Blood pressure parameters have remained around 100 to 110 systolic. She is on midodrine. PHYSICAL EXAMINATION: COR: Good breath sounds. HEART: Regular rhythm and rate. Normal S1, S2. ABDOMEN: Soft. No edema. G-tube intact. IMPRESSION: 1. Metastatic head and neck cancer. 2. Ventilator-dependent respiratory failure. 3. Paroxysmal atrial fibrillation. 4. History of deep venous thrombosis. PLAN: The patient to go home with ventilator support and management by family members. Presently, euvolemic and does not need any adjustments to cardiovascular regimen. Chi Bhatti M.D. DR: TRISH JOB#: [id number] CC:
[2016-12-06] VITALS: BP 111/76
[2016-12-06 04:00] VITALS: BP 99/59
[2016-12-06 07:58] VITALS: BP 105/67
[2016-12-06] MEDS: Multivitamins W/Minerals 15 ML UDC NG SCH (08:32)
[2016-12-06] MEDS: Docusate 100mg/10ml Liq GT SCH (08:32)
[2016-12-06] MEDS: Ascorbic Acid 500mg tab NG SCH (08:32)
[2016-12-06] MEDS: Digoxin 0.125mg tab GT SCH (08:33)
[2016-12-06] MEDS: Heparin 5000 units/ml inj SUBQ SCH (08:34)
--- NOTE | 2016-12-06 10:31 | Pulmonology Progress Note ---
Assessment/Plan Assessment/Plan IMPRESSION: 1. Respiratory failure, chronic encephalopathy. 2. Left lung nodule metastatic 3. 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 metastatic 4. Sepsis. 5. Tracheostomy G-tube. 6. Leukocytosis 7. History of Acute renal failure. 8. Lower extremity deep vein thrombosis per history. 9. Chronic encephalopathy PLAN exam reviewed and overall same and without change care noted and reviewed respiratory care portable vent home DME ordered vital signs stable and reviewed maintain full ventilator support discharge planning to home with home vent hope today rx written and left on chart- case management aware impression, plan, and exam edited and reviewed in detail care discussed with RN Subjective ROS Limited/Unobtainable: Yes Allergies: Coded Allergies: PENICILLINS (Verified Allergy, Unknown, 07/31/16) Subjective care noted events reviewed tolerating portable vent RX written Objective Last 24 Hour Vital Signs Date Time Temp Pulse Resp B/P Pulse Ox O2 Delivery O2 Flow Rate FiO2 12/06/16 09:17 91 18 40 12/06/16 08:53 91 12/06/16 08:53 40 12/06/16 08:33 86 12/06/16 07:58 97.5 86 15 105/67 100 Mechanical Ventilator 12/06/16 06:39 88 12 40 12/06/16 04:57 93 12 40 12/06/16 04:00 97.7 90 18 99/59 99 12/06/16 04:00 40 12/06/16 03:32 88 12/06/16 03:19 81 12 40 12/06/16 01:15 102 20 40 12/06/16 00:00 97.9 89 20 111/76 97 12/06/16 00:00 40 12/05/16 23:39 88 12/05/16 23:13 94 17 40 12/05/16 21:18 104 14 40 12/05/16 20:00 98.4 91 18 107/72 99 12/05/16 20:00 40 12/05/16 20:00 88 12/05/16 19:30 89 13 40 12/05/16 17:07 83 13 40 12/05/16 16:13 86 12/05/16 16:00 40 12/05/16 16:00 86 12/05/16 15:54 97.9 86 12 113/59 100 Mechanical Ventilator 40 12/05/16 15:08 82 13 40 12/05/16 12:46 81 14 40 12/05/16 12:00 80 12/05/16 12:00 40 12/05/16 11:47 97.7 86 14 103/74 100 Mechanical Ventilator 40 12/05/16 11:11 84 13 40 Intake and Output 12/05/16 12/06/16 19:00 07:00 Intake Total 240 ml 500 ml Output Total 375 ml 350 ml Balance -135 ml 150 ml Intake Free Water 200 ml 100 ml Tube Feeding 40 ml 400 ml Output Urine Total 375 ml 350 ml # Bowel Movements 1 Objective Sp02 EP Interpretation: reviewed, normal General Appearance: normal inspection, well appearing, no apparent distress, Head: normocephalic, atraumatic Eyes: bilateral eye normal inspection ENT: normal ENT inspection, Neck: normal inspection, no meningismus, carotid 2+ trach Respiratory: decreased breath sounds, without wheeze or rhonchi Cardiovascular #1: regular rate, rhythm, no murmur without MRG Gastrointestinal: non tender, soft, non-distended, no guarding, no rebound; GT Musculoskeletal: no CCE Neurologic: weak diffusely; awake; nonfocal reviewed and edited; overall same Current Medications Medications (Trade) Dose Ordered Sig/Josiah Route PRN Reason Start Time Stop Time Status Last Admin Dose Admin Acetaminophen (Tylenol) 650 mg Q4H PRN GT Pain Scale (3-5) 11/12/16 09:00 12/12/16 08:59 11/24/16 15:08 Amitriptyline HCl (Elavil) 10 mg BEDTIME GT 11/12/16 21:00 12/12/16 20:59 12/05/16 21:36 Ascorbic Acid (Vitamin C) 500 mg DAILY NG 11/25/16 09:00 12/25/16 08:59 12/06/16 08:32 Digoxin (Lanoxin) 0.125 mg DAILY GT 11/12/16 10:00 12/12/16 09:59 12/06/16 08:33 Docusate Sodium (Colace) 100 mg DAILY GT 11/12/16 10:00 12/12/16 09:59 12/06/16 08:32 Heparin Sodium (Porcine) (Heparin 5000 units/ml) 5,000 units EVERY 12 HOURS SUBQ 11/12/16 10:00 12/12/16 09:59 12/06/16 08:34 Levothyroxine Sodium (Synthroid) 150 mcg ACBREAKFAST GT 11/14/16 06:30 12/14/16 06:29 12/06/16 05:59 Midodrine (Pro-Amatine) 5 mg THREE TIMES A DAY GT 11/13/16 13:00 12/13/16 12:59 12/06/16 08:32 Multivitamins (Multivitamins W/ Minerals 15ml Liquid) 15 ml DAILY NG 11/25/16 09:00 12/25/16 08:59 12/06/16 08:32 MARCY MAJOR Dec 06, 2016 10:31
--- NOTE | 2016-12-06 11:52 | Infectious Diseases Prog Note ---
Assessment/Plan Assessment/Plan antibiotics : none A 1. UTI s/p rx 2. leucocytosis resolved 3. respiratory failure 4. HTN 5. tongue cancer 6. pseudomonas pneumonia s/p rx P 1. continue off antibiotics Subjective ROS Limited/Unobtainable: Yes Allergies: Coded Allergies: PENICILLINS (Verified Allergy, Unknown, 07/31/16) Objective Vital Signs Last 24 Hour Vital Signs Date Time Temp Pulse Resp B/P Pulse Ox O2 Delivery O2 Flow Rate FiO2 12/06/16 10:58 85 13 40 12/06/16 09:17 91 18 40 12/06/16 08:53 91 12/06/16 08:53 40 12/06/16 08:33 86 12/06/16 07:58 97.5 86 15 105/67 100 Mechanical Ventilator 12/06/16 06:39 88 12 40 12/06/16 04:57 93 12 40 12/06/16 04:00 97.7 90 18 99/59 99 12/06/16 04:00 40 12/06/16 03:32 88 12/06/16 03:19 81 12 40 12/06/16 01:15 102 20 40 12/06/16 00:00 97.9 89 20 111/76 97 12/06/16 00:00 40 12/05/16 23:39 88 12/05/16 23:13 94 17 40 12/05/16 21:18 104 14 40 12/05/16 20:00 98.4 91 18 107/72 99 12/05/16 20:00 40 12/05/16 20:00 88 12/05/16 19:30 89 13 40 12/05/16 17:07 83 13 40 12/05/16 16:13 86 12/05/16 16:00 40 12/05/16 16:00 86 12/05/16 15:54 97.9 86 12 113/59 100 Mechanical Ventilator 40 12/05/16 15:08 82 13 40 12/05/16 12:46 81 14 40 12/05/16 12:00 80 12/05/16 12:00 40 Height (Feet): 5 Height (Inches): 3.00 Weight (Pounds): 116 HEENT: status post trach Respiratory/Chest: lungs clear Cardiovascular: normal rate, regular rhythm, no gallop/murmur Abdomen: soft, non tender, other - GT Extremities: no edema MARA BLOCK Dec 06, 2016 11:52
[2016-12-06 12:00] VITALS: BP 101/55
--- NOTE | 2016-12-06 22:15 | Progress Note ---
DATE: 12/06/2016 CARDIOLOGY PROGRESS NOTE SUBJECTIVE: Discharge planning is in progress for today. Ventilator management at home is planned. The patient is in no new distress. OBJECTIVE: VITAL SIGNS: Blood pressure 105/67, pulse 86, respirations 15, and afebrile. NECK: Thin trach secretions. LUNGS: Bilateral breath sounds. HEART: Regular rhythm and rate. Normal S1, S2. ABDOMEN: Soft. No edema. LABORATORY DATA: No new laboratories today. IMPRESSION: 1. No signs of acute congestive heart failure. 2. Stable cardiac rhythm with a chest x-ray fibrillation. 3. Ventilator-dependent respiratory failure. 4. 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 5. Mild protein-calorie malnutrition. PLAN: 1. Discharge medication regimen reviewed, reconciled, and discussed with primary care physician. 2. Stable for discharge from cardiovascular standpoint. 3. No current need for diuretic therapy. 4. Family members are aware of medication regimen for home. Chi Bhatti M.D. DR: JANAY JOB#: [id number] CC:
--- NOTE | 2016-12-08 04:31 | Discharge Summary 2 SIG ---
DATE OF ADMISSION: 11/12/2016 DATE OF DISCHARGE: 12/06/2016 CONSULTANTS: 1. Chi Bhatti M.D. 2. Sai Charles M.D. 3. Rico Madrigal M.D. BRIEF HOSPITAL COURSE: The patient is a 81-year-old female, who is a resident of [facility]. She was noted to have significant leukocytosis and fever and was sent to emergency room. On evaluation at ED, WBC was elevated to 28. Urine WBC was 60 to 80 with 2+ leukocyte esterase and RBC. Chest x-ray done showed interstitial edema. The patient has a history of respiratory failure and is on trach and vent. The patient was admitted to [facility] for sepsis and urinary tract infection. She was initially started with ertapenem and vancomycin. She was given midodrine for low blood pressure. Troponin was negative. She had an episode of anemia and received a total of two units packed RBC blood transfusion. She was given respiratory care and has been maintained on full ventilatory support. Urine culture showed growth of Proteus mirabilis and enterococcus. Sputum culture showed growth of Pseudomonas. CT was negative. Ertapenem was discontinued and the patient was given Levaquin. The patient was unable to go back to prior halfway. Social service case management department was called in. Home safety was assessed. Ventilator and suction machine will be provided together with hospital bed and G-tube feeding. Family was instructed on home care regarding G-tube and ventilator. The patient had a lengthy stay due to discharge planning, as all DMEs need to be in place for a safe discharge. Apartment has to be renovated and painted. She finished antibiotic course. She came in with stage II right sacral pressure ulcer. Wound care was rendered. All DMEs had been delivered and family was given instructions. The patient was then discharged home with home health for RT. FINAL DIAGNOSES: 1. Sepsis. 2. Urinary tract infection. 3. Chronic encephalopathy. 4. Respiratory failure. 5. Left lung nodule metastatic. 6. Tongue lesion, head and neck cancer, metastatic. 7. Tracheostomy. 8. Gastrostomy tube feed. 9. Mild protein-calorie malnutrition. 10. Pseudomonas pneumonia. 11. Paroxysmal atrial fibrillation. Feeding via gastrostomy tube status post bedside replacement. 12. Chronic diastolic congestive heart failure. 13. Right sacral stage II pressure ulcer, present on admission resolved. Brice Grove M.D. I have been assigned to dictate discharge summary on this account and I was not involved in the patient's management. Latonya Mercado N.P. DR: NIKA JOB#: [id number] CC: MCKENZIE
== END 2016-12-06 15:42 | disposition home health service (06) | DRG 870 ==
LOC: EDBD 00:33 → EMR 00:56 → 2W 03:31 → EDBEDREQ 03:44 → 2W 11-14 00:57
PROC: 5A1955Z Respiratory Ventilation, Greater than 96 Consecutive Hours (ICD-10-PCS; principal; 2016-11-12)
PROC: 0D20XUZ Change Feeding Device in Upper Intestinal Tract, External Approach (ICD-10-PCS; 2016-12-03)
DX: A41.9 Sepsis, unspecified organism (principal); R65.21 Severe sepsis with septic shock; J15.1 Pneumonia due to Pseudomonas; G93.40 Encephalopathy, unspecified; Z99.11 Dependence on respirator [ventilator] status; J96.10 Chronic respiratory failure, unspecified whether with hypoxia or hypercapnia; C78.02 Secondary malignant neoplasm of left lung; I50.32 Chronic diastolic (congestive) heart failure; E44.1 Mild protein-calorie malnutrition; N39.0 Urinary tract infection, site not specified; K94.23 Gastrostomy malfunction; Z93.0 Tracheostomy status; C02.9 Malignant neoplasm of tongue, unspecified; I48.0 Paroxysmal atrial fibrillation; L89.152 Pressure ulcer of sacral region, stage 2; Z86.718 Personal history of other venous thrombosis and embolism; E03.9 Hypothyroidism, unspecified; R13.10 Dysphagia, unspecified; N18.9 Chronic kidney disease, unspecified; D64.9 Anemia, unspecified; R19.7 Diarrhea, unspecified
CPT/HCPCS: 36415; 71010; 74000; 80048; 80053; 80162; 80202; 81003; 82533; 82550; 82553; 82962; 83605; 83735; 83880; 84100; 84443; 84484; 85007; 85025; 85610; 85730; 86850; 86900; 86901; 86920; 87040; 87070; 87081; 87086; 87181; 87205; 87324; 93005; 94002; 94003; 94640; 94664; J7620

== ENCOUNTER 2017-01-18 15:33 | Emergency (ER) | payer MEDICARE, BC ==
[~2017-01-18] VITALS: Ht 147.3 cm; Wt 49.9 kg
[~2017-01-18 15:33] MED LIST changes: +HEPARIN SO5000 UNIT2 SUBQ; +LEVAQUIN500 MG ORAL; +LEVOTHYROXINE150 MCG ORAL; +MIDODRINE HCL5 MG ORAL
--- NOTE | 2017-01-18 16:02 | Emergency Room Report ---
History of Present Illness General Chief Complaint: General Complaint Source: Patient, Caregiver, PMD Present Illness HPI 81YOF BIB caregiver sent by PMD [place] to change trach Last one placed 1.5 months ago Caregiver states trach "drops" low at night, causes alarm to go off Ostomy since June No bleeding Allergies: Coded Allergies: PENICILLINS (Verified Allergy, Unknown, 07/31/16) Patient History Past Medical History: see triage record, old chart reviewed Past Surgical History: other - ostomy Pertinent Family History: none Social History: Denies: alcohol use, drug use, smoking Now: No Immunizations: UTD Reviewed Nursing Documentation: PMH: Agreed, PSxH: Agreed Nursing Documentation-PMH Hx Cardiac Problems: Yes - A FIB,DVT RT UPPER EXTREMITY, ANEMIA, HYPOTHYROIDISM Hx Cancer: Yes - MAGLINANT NEOPLASM OF THE TONGUE, HEAD, FACE AND NECK Hx Gastrointestinal Problems: Yes - GERD, DYSPHAGIA Hx Neurological Problems: Yes - MUSCLE WEAKNESS Hx Speech Problem: Yes Hx Weakness: Yes Review of Systems All Other Systems: negative except mentioned in HPI Physical Exam Vital Signs Date Time Temp Pulse Resp B/P Pulse Ox O2 Delivery O2 Flow Rate FiO2 01/18/17 15:43 99.0 96 20 117/53 99 Trach Collar 5.0 Sp02 EP Interpretation: reviewed, normal General Appearance: normal inspection, well appearing, no apparent distress, alert, GCS 15, non-toxic Head: normocephalic, atraumatic Eyes: bilateral eye EOMI, bilateral eye PERRL ENT: normal ENT inspection, hearing grossly normal, normal voice Neck: normal inspection, full range of motion, supple, no bony tend, other - No air leak. No mucuous plug. No bleedibng, tracheotomy Respiratory: normal inspection, lungs clear, normal breath sounds, no respiratory distress, no retraction, no accessory muscle use, no wheezing, speaking full sentences Cardiovascular #1: regular rate, rhythm, no edema Gastrointestinal: normal inspection, normal bowel sounds, non tender, soft, no guarding, no hernia Genitourinary: no CVA tenderness Musculoskeletal: normal inspection, back normal, normal range of motion, Sherly' s Sign negative Neurologic: normal inspection, alert, oriented x3, responsive, director volunteer services III-XII nml as tested, motor strength/tone normal, speech normal Psychiatric: normal inspection, judgement/insight normal, mood/affect normal Skin: normal inspection, normal color, no rash Medical Decision Making Diagnostic Impression: Primary Impression: Tracheostomy malfunction ER Course 81YOF with trach replacement VSS. Afebrile No sign of infection No complaints from patient RT replaced Trach with 7.0mm Portex trach patient brought in with her Mild bleeding when existing trach removed, appeared stuck to ostomy site Patient observed in ED until bleeding contained. No active bleeding on discharge No desat on tube replacement Vitals remained stable No other acute issues DC home with caregiver PMD Joseya informed Last Vital Signs Date Time Temp Pulse Resp B/P Pulse Ox O2 Delivery O2 Flow Rate FiO2 01/18/17 15:43 99.0 96 20 117/53 99 Trach Collar 5.0 Status: improved Disposition: HOME, SELF-CARE JERRY WHITTEN M.D. Jan 18, 2017 16:02
[2017-01-18 17:01] VITALS: BP 99/46
[2017-01-18 17:30] VITALS: BP 99/46
== END 2017-01-18 17:45 | disposition home or self-care (01) ==
LOC: EMR 16:19
DX: J95.03 Malfunction of tracheostomy stoma (principal); Z88.0 Allergy status to penicillin; Z85.89 Personal history of malignant neoplasm of other organs and systems; K21.9 Gastro-esophageal reflux disease without esophagitis; Z86.718 Personal history of other venous thrombosis and embolism
CPT/HCPCS: 99285

== ENCOUNTER 2017-02-21 20:47 | Inpatient (IN) | payer MEDICARE, BC ==
[~2017-02-21] VITALS: Ht 147.3 cm; Wt 48.5 kg
[~2017-02-21 20:47] MED LIST changes: +LEVOTHYROXINE150 MCG GT; -LEVOTHYROXINE150 MCG ORAL; +MIDODRINE HCL5 MG GT; -MIDODRINE HCL5 MG ORAL
--- NOTE | 2017-02-21 21:22 | Emergency Room Report ---
History of Present Illness General Chief Complaint: Seizure Source: Patient, Family Member Present Illness HPI 81-year-old female, history of neck cancer with trach, PEG tube, hypothyroidism , presenting with seizures. History is obtained by son as patient unable to speak secondary to trach. Son states that she has had seizures for the last 2 weeks, 3 total, he explained seizures as a brief 5-10 seconds, where patient is shutting her eyes very tightly appears to be in pain shaking her upper extremities, it resolves and patient is awake alert and looking around. There is no post ictal state. Son states that this has never happened before, has not seen a doctor due to this. Other than these patient has been acting herself, is able to walk, respond, follow commands, there is no history of any fever chills nausea vomiting chest pain or abdominal pain. Patient usually has chronic cough with multiple secretions but not more than her usual No trauma Patient is able to answer yes or no questions, denying any pain at this time, denies any headache nausea or vomiting. 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 satting 99 on 5L O2 General Appearance: normal inspection, alert, non-toxic, other - Elderly female , trach, awake and alert, following commands, not in acute distress does not appear toxic Head: normocephalic, atraumatic Eyes: bilateral eye normal inspection, bilateral eye PERRL, bilateral eye EOMI ENT: moist mucus membranes, other - Unable to speak due to trach Neck: normal inspection, full range of motion, supple Respiratory: no retraction, no wheezing, other - Trach, vent'ed coarse breath sounds b/l, chest symmetrical Cardiovascular #1: normal inspection, no edema, normal capillary refill, tachycardia Cardiovascular #2: 2+ radial (R), 2+ radial (L) Gastrointestinal: non tender, soft, non-distended, no guarding, other - PEG tube in place Musculoskeletal: normal inspection, back normal, normal range of motion, non- tender Neurologic: normal inspection, alert, oriented x3, responsive, dining room supervisor III-XII nml as tested, motor strength/tone normal, sensory intact, normal gait, other - Motor strength 5 out of 5 all 4 extremities, following commands appropriately Psychiatric: mood/affect normal Skin: normal inspection, normal color, no rash, warm/dry, well hydrated, normal turgor Procedures Critical Care Time Critical Care Time 40 minutes of CC time 81-year-old female, trach, coming with history of seizures VS: tachycardic, vented Sepsis criteria met PLAN: IV access, labs, lactate, Blood/Urine Cx, Abx Anticipate admission to Tele vs. [facility] CC time also includes review of labs, review of EMR, discussion with family CC could include dosing of pressors, additional Abx CC time does not include procedures Medical Decision Making Diagnostic Impression: Primary Impression: Sepsis Additional Impressions: Respiratory failure Pneumonia ER Course 81-year-old female with possible seizure-like activity. 3 episodes in last 2 weeks DDX: Electrolyte disturbance, dehydration, infectious/UTI pneumonia, sepsis, intracranial bleed, intracranial mass/mets, cardiac/ACS/arrhythmia Plan: Obtain labs, ua, EKG, CXR, CT head ER course: Patient has been monitored during ED stay sepsis --CXR w/ L sided infiltrate vancomycin and levaquin given (allergic to PCN) ct head neg no seizures in the ED has remained awake and alert, continues to be on vent, stable lactate normal Disposition: Patient is to be admitted to [facility] unit, under Dr Madrigal Please note that this Emergency Department Report was dictated using [employer] intern technology software, occasionally this can lead to erroneous entry secondary to interpretation by the dictation equipment. Laboratory Tests Test 02/21/17 22:30 02/21/17 23:35 White Blood Count 15.3 K/UL (4.8-10.8) H Red Blood Count 3.54 M/UL (4.20-5.40) L Hemoglobin 11.0 G/DL (12.0-16.0) L Hematocrit 32.6 % (37.0-47.0) L Mean Corpuscular Volume 92 FL (80-99) Mean Corpuscular Hemoglobin 31.2 PG (27.0-31.0) H Mean Corpuscular Hemoglobin Concent 33.8 G/DL (32.0-36.0) Red Cell Distribution Width 12.6 % (11.6-14.8) Platelet Count 237 K/UL (150-450) Mean Platelet Volume 7.0 FL (6.5-10.1) Neutrophils (%) (Auto) 75.5 % (45.0-75.0) H Lymphocytes (%) (Auto) 13.3 % (20.0-45.0) L Monocytes (%) (Auto) 8.6 % (1.0-10.0) Eosinophils (%) (Auto) 1.4 % (0.0-3.0) Basophils (%) (Auto) 1.2 % (0.0-2.0) Sodium Level 140 mEQ/L (135-145) Potassium Level 4.8 mEQ/L (3.4-4.9) Chloride Level 101 mEQ/L (98-107) Carbon Dioxide Level 27 mEQ/L (20-30) Anion Gap 12 (5-15) Blood Urea Nitrogen 22 mg/dL (7-23) Creatinine 0.7 mg/dL (0.5-0.9) Estimate Glomerular Filtration Rate mL/min (>60) Glucose Level 119 mg/dL (74-106) H Lactic Acid Level 0.80 mmol/L (0.66-2.22) Calcium Level 9.5 mg/dL (8.6-10.2) Total Bilirubin 0.2 mg/dL (0.0-1.2) Aspartate Amino Transferase (AST) 30 U/L (5-40) Alanine Aminotransferase (ALT) 16 U/L (3-33) Alkaline Phosphatase 79 U/L (35-104) Total Creatine Kinase 102 U/L (26-140) Creatine Kinase MB 1.5 ng/mL (< 3.8) Creatine Kinase MB Relative Index 1.4 Troponin I < 0.30 ng/mL (<=0.30) Pro-B-Type Natriuretic Peptide 403 pg/mL (0-450) Total Protein 7.5 g/dL (6.6-8.7) Albumin 3.6 g/dL (3.5-5.2) Globulin 3.9 g/dL Albumin/Globulin Ratio 0.9 (1.0-2.7) L Urine Color Yellow Urine Appearance Clear Urine pH 6 (4.5-8.0) Urine Specific [place] 1.020 (1.005-1.035) Urine Protein Negative (NEGATIVE) Urine Glucose (UA) Negative (NEGATIVE) Urine Ketones 1+ (NEGATIVE) H Urine Occult Blood Negative (NEGATIVE) Urine Nitrite Negative (NEGATIVE) Urine Bilirubin Negative (NEGATIVE) Urine Urobilinogen Normal MG/DL (0.0-1.0) Urine Leukocyte Esterase Negative (NEGATIVE) EKG Diagnostic Results Rate: tachycardiac Rhythm: NSR ST Segments: other - Q wave III ASA given to the pt in ED: No Rhythm Strip Diag. Results EP Interpretation: yes Rate: 108 Rhythm: NSR, no PVC's, no ectopy Chest X-Ray Diagnostic Results Chest X-Ray Diagnostic Results : Chest X-Ray Ordered: Yes # of Views/Limited/Complete: 1 View Indication: Other EP Interpretation: Yes Interpretation: other - trached, +L sided infiltrate Impression: Other - L sided PNA Electronically Signed by: Electronically signed by Zehra Rodriguez MD CT/MRI/US Diagnostic Results CT/MRI/US Diagnostic Results : Imaging Test Ordered: CT head Impression CT HEAD: No acute intracranial hemorrhage or cortical ischemia. Chronic ischemic changes. Opacities in the sphenoid sinus and left mastoid air cells. Electronically signed by Zehra Rodriguez MD Last Vital Signs Date Time Temp Pulse Resp B/P (MAP) Pulse Ox O2 Delivery O2 Flow Rate FiO2 02/21/17 21:15 99.1 105 16 99 Mechanical Ventilator 5.0 Disposition: ADMITTED INPATIENT Condition: Zehra Leavitt M.D. Feb 21, 2017 21:22
[2017-02-21 21:30] VITALS: BP 110/45
[2017-02-21 22:56] LABS: BASOPHILS % (AUTO) 1.2 % (0.0-2.0); EOSINOPHILS % (AUTO) 1.4 % (0.0-3.0); LYMPHOCYTES % (AUTO) 13.3 % (20.0-45.0); MEAN CORPUSCULAR HEMOGLOBIN 31.2 PG (27.0-31.0); MEAN CORPUSCULAR HGB CONC 33.8 G/DL (32.0-36.0); MEAN CORPUSCULAR VOLUME 92 FL (80-99); MONOCYTES % (AUTO) 8.6 % (1.0-10.0); NEUTROPHILS % (AUTO) 75.5 % (45.0-75.0); PLATELET COUNT 237 K/UL (150-450); RED BLOOD COUNT 3.54 M/UL (4.20-5.40); RED CELL DISTRIBUTION WIDTH 12.6 % (11.6-14.8); WHITE BLOOD COUNT 15.3 K/UL (4.8-10.8)
[2017-02-21 23:01] LABS: TROPONIN I < 0.30 ng/mL (<=0.30)
[2017-02-21 23:08] LABS: ALANINE AMINOTRANSFERASE 16 U/L (3-33); ALBUMIN/GLOBULIN RATIO 0.9 (1.0-2.7); ANION GAP 12 (5-15); ASPARTATE AMINO TRANSFERASE 30 U/L (5-40); CALCIUM 9.5 mg/dL (8.6-10.2); CARBON DIOXIDE 27 mEQ/L (20-30); CHLORIDE 101 mEQ/L (98-107); CREATININE 0.7 mg/dL (0.5-0.9); HEMOLYSIS 11; POTASSIUM 4.8 mEQ/L (3.4-4.9); SODIUM 140 mEQ/L (135-145); TOTAL PROTEIN 7.5 g/dL (6.6-8.7)
[2017-02-21 23:19] LABS: CKMB 1.5 ng/mL (< 3.8)
[2017-02-21 23:30] VITALS: BP 119/55
[2017-02-21] MEDS ORDERED: Vancomycin 1250mg/D5W 250ml 250 ML IVPB SCH (23:45)
[2017-02-21 23:52] LABS: APPEARANCE,URINE CLEAR; KETONES,URINE 1+ (NEGATIVE); LEUKOCYTE ESTERASE ,URINE NEGATIVE (NEGATIVE); NITRITE,URINE NEGATIVE (NEGATIVE); PH,URINE 6 (4.5-8.0); UROBILINOGEN,URINE NORMAL MG/DL (0.0-1.0)
[2017-02-21 23:54] LABS: PROTEIN,URINE NEGATIVE (NEGATIVE)
[2017-02-22] VITALS (7 sets, daily range): BP systolic 90–142; BP diastolic 51–75
[2017-02-22] MEDS ORDERED: Vancomycin 1250mg/D5W 250ml 250 ML IVPB ONE (00:30)
[2017-02-22] MEDS ORDERED: Vancomycin 1 GM in D5W 275 ML IVPB ONE (00:30)
[2017-02-22] MEDS ORDERED: Vancomycin 1gm inj IVPB ONE (01:47)
[2017-02-22] MEDS ORDERED: DuoNeb 0.5-3(2.5)mg/3ml neb HHN PRN (06:30)
[2017-02-22] MEDS: Midodrine 10mg tab GT SCH ×3 (08:21→17:17)
[2017-02-22] MEDS: levETIRAcetam 500mg/5ml Liquid GT SCH ×2 (08:21→20:49)
[2017-02-22] MEDS: Docusate 100mg/10ml Liq GT SCH (08:21)
[2017-02-22] MEDS: Digoxin Elixir 0.125mg GT SCH (08:22)
[2017-02-22] MEDS: Heparin 5000 units/ml inj SUBQ SCH ×2 (08:29→20:45)
[2017-02-22] MEDS ORDERED: levETIRAcetam 500mg/5ml Liquid GT SCH (09:00)
[2017-02-22] MEDS ORDERED: Heparin 5000 units/ml inj SUBQ SCH (09:00)
[2017-02-22] MEDS: Cefepime HCl 1 GM in D5W 55 ML IVPB SCH (09:13)
--- NOTE | 2017-02-22 09:15 | Diagnostic Imaging Report ---
Indication: Altered mental status Technique: spiral acquisitions obtained through the brain. Angled axial and coronal 5 x 5 mm slices were reconstructed. No IV contrast utilized. Radiation dose was minimized using automated exposure control Total dose length product 1344 mGycm. CTDIvol(s) 70 mGy Comparison: none FINDINGS: No acute hemorrhage or edema. No mass effect or midline shift. There is age-related enlargement of the ventricles and extra axial CSF spaces. There is there are old bilateral basal ganglia lacunar infarcts minimal periventricular deep white matter chronic ischemic change. Normal juarez-white differentiation. Visualized orbits are unremarkable. Visualized sinuses are unremarkable. Intact calvarium. There is bilateral sphenoid sinus opacification. There are is evidence of extensive left mastoid disease. There are possibly postsurgical changes of the left mastoid and equivocally of the right mastoid as well. IMPRESSION: Chronic and age-related changes. Negative for acute intracranial bleed or mass effect Sinus and left mastoid disease. Query prior mastoid surgery The CT scanner at [facility] is accredited by the [employer] and the scans are performed using protocols designed to limit radiation exposure to as low as reasonably achievable to attain images of sufficient resolution adequate for diagnostic evaluation
--- NOTE | 2017-02-22 10:54 | Wound Care Consultation ---
Wound Assessment Wound Assessment #1: Wound Number: 1 Wound Present on Admission: Yes New Wound: No Status Change of Wound: No Wound Location Body Site: sacral - extending to right aspect of sacral scattered stage III. Wound Type: pressure ulcer Ross Test: Does not Ross Pressure Ulcer Stage: III Wound Thickness: Full Thickness Wound Length: 4.0 Wound Width: 4.0 Wound Depth: 0.2 Percent of Wound Ferriday/Red: 100 Other Colors Identified: surrounding skin maroon with scar tissue Wound Drainage Description: Serosanguineous Wound Drainage Amount: Moderate Wound Drainage Odor: None/Absent Tissue Surrounding Wound: Macerated Wound General Appearance: Reddened Wound Assessment #2: Wound Number: 2 Wound Present on Admission: Yes New Wound: No Status Change of Wound: No Wound Location Body Site Modif: right, lower, anterior Wound Location Body Site: leg Wound Type: other - redness- possible cellulitis Ross Test: Does not Ross Wound Length: 4.0 Wound Width: 4.0 Percent of Wound Ferriday/Red: 100 Wound Drainage Amount: None Wound Drainage Odor: None/Absent Tissue Surrounding Wound: Erythemic - hot to touch. Wound General Appearance: Reddened, Open to air Wound Assessment #3: Wound Number: 3 Wound Present on Admission: Yes New Wound: No Status Change of Wound: No Wound Location Body Site Modif: left, lower, anterior Wound Location Body Site: leg Wound Type: other - redness, possible cellulitis Ross Test: Does not Ross Wound Length: 12.0 Wound Width: 6.0 Percent of Wound Ferriday/Red: 100 Wound Drainage Amount: None Wound Drainage Odor: None/Absent Tissue Surrounding Wound: Erythemic - hot to touch Wound General Appearance: Reddened, Open to air Wound Comment #1 mid sacral extending to right sacral scattered stage III . ( Pt has a history of stage 3 pressure ulcer to sacral area) #2 right lower anterior leg redness- possible cellulitis. #3 left lower anterior leg redness -possible cellulitis Recommendation. -Local wound care as ordered. -Monitor and follow up with MD regarding right and left lower leg possible cellulitis and follow up accordingly. -Turn and reposition. -Keep clean and dry. -Optimize nutrition. -Offload heels and feet. -Apply heel protectors. -Avoid shear and friction. -Offload affected sacral pressure site. - Assess and notify MD if any further change of condition to skin is noted. YADIRA DIAMOND Feb 22, 2017 10:54
--- NOTE | 2017-02-22 12:23 | Diagnostic Imaging Report ---
Indication: COUGH, history of neck cancer Technique: No IV contrast, per referring physician request Spiral acquisitions obtained through the Multiplanar reconstructions were generated. Total dose length product 28 mGycm. CTDIvol(s) 19 mGy. Radiation dose was minimized using automated exposure control Comparison: None Findings: There is some asymmetry of the tongue, particularly posteriorly. Uncertain as whether this represents postsurgical changes. There is marked enlargement of the bilateral tonsils, slightly greater on the right than on the left, with abnormal soft tissue largely surrounding the posterior oropharynx and hypopharynx. This also obliterates the prevertebral fat planes.. This results in near obliteration of the bilateral parapharyngeal spaces. Abnormal soft tissue continues into the hypopharynx, completely fills the vallecula and pyriform sinuses, extends to the level of the vocal cords. There is a tracheostomy in place. Other than the confluent oropharyngeal and hypopharyngeal abnormality, there is no other cervical mass or adenopathy demonstrated. There is mild increased attenuation of the subcutaneous fat superficial and anterior to the bilateral parotid glands, as well as within the nuchal region. There is considerable skin thickening of the subcutaneous fat inferior to this. There is biapical pulmonary parenchymal scarring with calcification. No definite fluid collections are demonstrated, although evaluation for such is limited in the absence of IV contrast. The bones demonstrate degenerative spondylosis changes of the cervical spine there is evidence of multiple prior dental extractions. The dentition which is still present appears intact. The visualized cranial structures are unremarkable. Impression: Extensive abnormal soft tissue involving the bilateral tonsillar regions, posterior oropharynx, hypopharynx. This most likely represents tumor, given stated clinical history of neck carcinoma. Correlation with clinical history and findings, comparison with any prior exams may be useful No definite evidence of abscess. However, evaluation for such is very limited, in the absence of IV contrast administration Asymmetry of the posterior tongue. Could be physiologic or could be postsurgical. Correlate with surgical history Edema of the bilateral subcutaneous fat and skin thickening, as described. Suspect related to postradiation changes. Possibility of venous obstruction secondary to tumor should also be considered Bilateral apical pulmonary parenchymal disease. May be on the basis of chronic fibrotic change, versus post radiation changes. This is also discussed in separate chest CT report Tracheostomy Degenerative spondylosis The CT scanner at [facility] is accredited by the [employer] and the scans are performed using protocols designed to limit radiation exposure to as low as reasonably achievable to attain images of sufficient resolution adequate for diagnostic evaluation.
--- NOTE | 2017-02-22 12:51 | Cardiology Report ---
APPROVED REPORT EKG Measurement Heart [id number] Sinus tachycardia Otherwise normal ECG
--- NOTE | 2017-02-22 13:07 | Diagnostic Imaging Report ---
Indication: PAIN Technique: One view of the chest Comparison: 611.17 Findings: There is an opacity at the left lung base. This may represent mass versus infiltrate. There is blunting of left costophrenic sulcus which may reflect pleural fluid. Heart size is normal. There is biapical pleural thickening. There is a tracheostomy Surgical clips are seen in the left upper quadrant Impression: Left basilar masters infiltrate Suspect left-sided pleural effusion Biapical pleural thickening Tracheostomy This agrees with the preliminary interpretation provided by the emergency room physician
[2017-02-22] MEDS ORDERED: Tubing IV Secondary IV ONE (14:34)
[2017-02-22] MEDS ORDERED: NS 275ml ONE (14:34)
--- NOTE | 2017-02-22 14:43 | Diagnostic Imaging Report ---
Clinical Indication: COUGH. History of neck cancer with tracheostomy Technique: Spiral acquisitions obtained through the chest. No IV contrast utilized, per emergency room physician request. Multiplanar reconstructions generated. Total dose length product 610 mGycm. CTDIvol(s) 17 mGy. Dose reduction achieved using automated exposure control Comparison: Chest radiograph earlier the same date Findings:There is symmetric confluent opacity with central bronchiectasis and central calcifications in the anterior lung apices bilaterally. There is opacification of most of the left lower lobe. There is confluent opacity within the major fissure, and abnormal soft tissue extends into the left pulmonary hilum. There is complete occlusion of the anterior and medial segmental bronchi. The periphery of the opacity extends to the pleural surface. The medial borders are well-circumscribed. The anterior borders are delineated by the major fissure. There is a small amount of adjacent pleural fluid. The opacity measures approximately 8.3 x 4.8 x 6.4 cm craniocaudad. Posterior dependent atelectatic changes are seen in the right lung. Other than the apical opacity, the left upper lobe is largely clear. Borderline enlarged precarinal and right paratracheal nodes are demonstrated. Nodes measure up to 2 cm long axis dimension. There is a tracheostomy. No axillary or chest wall mass or adenopathy. The heart size is normal. No pericardial effusion. There is asymmetric appearance to the breasts. The left breast demonstrates more dense parenchyma as well as infiltration of the fat of the left breast and thickening of the areolar and periareolar skin. The bones are remarkable for a compression fracture deformity of the L1 vertebral body. This results in anterior wedging and approximately 20% anterior loss of height. The bones are unremarkable. The included upper abdominal anatomy is remarkable for the presence of a gastrostomy. Impression: Opacification of most of the left lower lobe. This may be due to neoplasm or infiltrate. Suspect the former, possibly with a component of peripheral postobstructive pneumonia. Small adjacent pleural effusion. Note that thickening of the inferior major fissures probably due to fluid within it. Borderline mediastinal lymphadenopathy Biapical chronic appearing parenchymal opacity. Given stated clinical history and fairly symmetric appearance of this, suspect on the basis of prior radiation changes Abnormal left breast, with infiltration of the mammary fat, skin thickening, and more prominent parenchyma. Possibility of cellulitis or inflammatory neoplasm should be considered. Correlate with clinical findings, consider mammography and ultrasound for further evaluation if clinically indicated L1 vertebral body compression fracture deformity. Acuity indeterminate. Consider MRI for better characterization if this is considered clinically relevant Tracheostomy Gastrostomy The CT scanner at [facility] is accredited by the [employer] and the scans are performed using protocols designed to limit radiation exposure to as low as reasonably achievable to attain images of sufficient resolution adequate for diagnostic evaluation.
--- NOTE | 2017-02-22 19:30 | History and Physical Report ---
DATE OF ADMISSION: 02/21/2017 CHIEF COMPLAINT: Seizures and hemoptysis. History Of Present Illness: The patient is a pleasant, but unfortunate 81-year-old female. 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 According to the patient's son, she has had three episodes where she has had episodes of unresponsiveness lasting for 10 seconds. He notes clenching of her teeth and then shaking of the left leg. Symptoms lasted for approximately 10 seconds and resolved spontaneously. According to the son, she does not seem to be postictal afterwards. On evaluation in the emergency room, per report, the patient had CT scan of the head that was unremarkable. There was also concern about possible pneumonia. The patient is now admitted for further evaluation and care. PAST MEDICAL HISTORY: As above. PAST SURGICAL HISTORY: Include trach and G-tube. CURRENT MEDICATIONS: Reconciled and reviewed. ALLERGIES: Include penicillin. Social History: There is no known history of tobacco, ethanol, or drugs. FAMILY HISTORY: Noncontributory. Review Of Systems: General: No fever or chills. HEENT: No headaches or visual changes. Cardiopulmonary: No chest pain or shortness of breath. Positive hemoptysis. Gastrointestinal: No nausea or vomiting. Genitourinary: No urgency or frequency. Musculoskeletal: No joint pain or swelling. Neurologic: No evidence of seizures. PHYSICAL EXAMINATION: Vital Signs: Temperature 98, pulse 114, respirations 22, and blood pressure 142/75. General: The patient is a well-developed female, in no apparent distress. She is awake, alert, follows commands. NECK: Supple. Trach site was midline and clean. HEART: Regular rate and rhythm. LUNGS: Scattered rhonchi. ABDOMEN: Soft, nontender, nondistended. EXTREMITIES: Without clubbing, cyanosis, or edema. Laboratory Data: White count was 16,000. Sodium 140, potassium 4.8. UA was clear. Chest x-ray showed possible infiltrate. CT scan of the head was unremarkable according to the ER report. Assessment: This is a pleasant female admitted with complaints of possible new onset of seizures, hemoptysis, and possible pneumonia. She has respiratory failure and history of hypotension. Plan: We will start her on empiric Keppra. Neurology consultation. We will check an EEG. We will follow up CT scan of the head and order CT of the neck and chest. Empiric antibiotic for pneumonia. ID consultation, Cardiology, and Pulmonary consultation has been obtained. Rico Madrigal M.D. DR: GAVIN JOB#: [id number] CC:
[2017-02-23] VITALS (7 sets, daily range): BP systolic 89–122; BP diastolic 38–71
--- NOTE | 2017-02-23 07:16 | Progress Note ---
DATE: 02/22/2017 CARDIOLOGY PROGRESS NOTE Subjective: The patient has not had any new seizures. She remains on ventilator support. Monitored rhythm sinus and sinus tachycardia. OBJECTIVE: VITAL SIGNS: Blood pressure 107/51, pulse 79, and respirations 19. NECK: Supple with thin trach secretions. LUNGS: With coarse breath sounds. Cardiac: Regular rhythm and rate. Normal S1 and S2 with a fourth heart sound. ABDOMEN: Soft and nontender. G-tube intact. EXTREMITIES: With trace edema. IMPRESSION: 1. New onset seizure. 2. 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 3. Ventilator-dependent respiratory failure. 4. Paroxysmal atrial tachyarrhythmias. 5. Secondary sinus tachycardia. 6. Chronic diastolic congestive heart failure. 7. Dysphagia with gastrostomy tube. 8. Hypothyroidism. PLAN: 1. Antiseizure therapy. 2. Ventilator support. 3. Nutrition by G-tube. 4. Continue digoxin and check levels. 5. Reassess continued use of midodrine, if blood pressure parameters are stable. 6. Check thyroid panel. Chi Bhatti M.D. DR: MADAN JOB#: [id number] CC:
--- NOTE | 2017-02-23 07:32 | Consultation ---
DATE OF CONSULTATION: 02/21/2017 CARDIOLOGY CONSULTATION CONSULTING PHYSICIAN: Chi Bhatti M.D. REQUESTING PHYSICIAN: Rico Madrigal M.D. Reason For Consultation: Tachycardia in the setting of new onset seizure. 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 She had a seizure for the first time. The patient was brought into the emergency room. She has a history of atrial tachyarrhythmias including atrial fibrillation and is on digoxin. I have been asked to assist with cardiovascular care. She presented with a rapid heart rate. The patient is able to answer yes and no questions, but does not have any additional data of consequence at this time. Past Medical History: Includes head and neck cancer with metastatic disease, dysphagia with G-tube, tracheostomy for the ventilator dependency, gastroesophageal reflux disease, anemia of chronic disease, hypothyroidism, history of right upper extremity DVT, diastolic congestive heart failure, paroxysmal atrial fibrillation, chronic hypotension due to autonomic dysfunction. MEDICATIONS: Reviewed and reconciled. ALLERGIES: Penicillin. SOCIAL HISTORY: Nonsmoker. No alcohol use. Review Of Systems: Not obtainable from the patient, reliably pertinent data from son as outlined above. PHYSICAL EXAMINATION: Vital Signs: Blood pressure 142/75, pulse rate 105, respiratory rate 16, temperature 99.1 degrees. GENERAL: Alert. HEENT: Thin secretions from trach. LUNGS: Bilateral breath sounds. HEART: Regular rhythm and rate. Normal S1, S2. ABDOMEN: Soft. G-tube intact. EXTREMITIES: Trace edema. Laboratory And Diagnostic Data: EKG reveals sinus tachycardia with no other abnormalities. Sodium 140, potassium 4.8, bicarbonate 27, BUN 22, creatinine 0.7. Albumin 3.6. White count 15.3, hemoglobin 11. Urinalysis with no active sediment. IMPRESSION: 1. New onset seizure. 2. Possible sepsis, secondary to sinus tachycardia. 3. Paroxysmal atrial fibrillation. 4. 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 5. Metastatic head and neck cancer. 6. Respiratory failure with tracheostomy. 7. History of right upper extremity DVT. Plan: Antiseizure therapy per primary care physician. Keppra was initiated. Cardiac monitoring. Respiratory hygiene. Maintain digitalis. Check levels. Add diltiazem if rapid atrial fibrillation recurs. Continue midodrine. Reassess continuing with therapy based on clinical parameters and blood pressure readings. Check thyroid function. Avoid use of beta agonist with tachycardia. Chi Bhatti M.D. DR: Chele JOB#: [id number] CC:
--- NOTE | 2017-02-23 08:15 | Consultation ---
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 Patient had been stable overall at home on the ventilator but presented with new onset seizure. The patient was brought into the emergency room for evaluation. Patient also noted to have tachycardia in the setting of atrial fibrillation. She is chronically ventilator dependent and I was asked to manage and monitor the ventilator. no recent fevers reported. patient is bed bound and confused. The patient is able to answer yes and no questions, but cannot assist with any history taking. 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 ALLERGIES: Penicillin. SOCIAL HISTORY: Nonsmoker. No alcohol use. at home on home vent; 24 hour care Review Of Systems: unable PHYSICAL EXAMINATION: Blood pressure 142/75, pulse rate 105, respiratory rate 16, temperature 99.1 degrees. WDWN chronically ill female NAD trach in place coarse breath sounds bilaterally without rhonchi or wheeze [id number] without MRG NABS nontender no HSM; GT in place no CC mild edema weak and confused nonfocal Laboratory And Diagnostic Data: EKG reveals sinus tachycardia with no other abnormalities. Labs Test 02/21/17 22:30 02/21/17 23:35 White Blood Count 15.3 K/UL (4.8-10.8) Red Blood Count 3.54 M/UL (4.20-5.40) Hemoglobin 11.0 G/DL (12.0-16.0) Hematocrit 32.6 % (37.0-47.0) Mean Corpuscular Volume 92 FL (80-99) Mean Corpuscular Hemoglobin 31.2 PG (27.0-31.0) Mean Corpuscular Hemoglobin Concent 33.8 G/DL (32.0-36.0) Red Cell Distribution Width 12.6 % (11.6-14.8) Platelet Count 237 K/UL (150-450) Mean Platelet Volume 7.0 FL (6.5-10.1) Neutrophils (%) (Auto) 75.5 % (45.0-75.0) Lymphocytes (%) (Auto) 13.3 % (20.0-45.0) Monocytes (%) (Auto) 8.6 % (1.0-10.0) Eosinophils (%) (Auto) 1.4 % (0.0-3.0) Basophils (%) (Auto) 1.2 % (0.0-2.0) Sodium Level 140 mEQ/L (135-145) Potassium Level 4.8 mEQ/L (3.4-4.9) Chloride Level 101 mEQ/L (98-107) Carbon Dioxide Level 27 mEQ/L (20-30) Anion Gap 12 (5-15) Blood Urea Nitrogen 22 mg/dL (7-23) Creatinine 0.7 mg/dL (0.5-0.9) Estimat Glomerular Filtration Rate mL/min (>60) Glucose Level 119 mg/dL (74-106) Lactic Acid Level 0.80 mmol/L (0.66-2.22) Calcium Level 9.5 mg/dL (8.6-10.2) Total Bilirubin 0.2 mg/dL (0.0-1.2) Aspartate Amino Transf (AST/SGOT) 30 U/L (5-40) Alanine Aminotransferase (ALT/SGPT) 16 U/L (3-33) Alkaline Phosphatase 79 U/L (35-104) Total Creatine Kinase 102 U/L (26-140) Creatine Kinase MB 1.5 ng/mL (< 3.8) Creatine Kinase MB Relative Index 1.4 Troponin I < 0.30 ng/mL (<=0.30) Pro-B-Type Natriuretic Peptide 403 pg/mL (0-450) Total Protein 7.5 g/dL (6.6-8.7) Albumin 3.6 g/dL (3.5-5.2) Globulin 3.9 g/dL Albumin/Globulin Ratio 0.9 (1.0-2.7) Urine Color Yellow Urine Appearance Clear Urine pH 6 (4.5-8.0) Urine Specific [place] 1.020 (1.005-1.035) Urine Protein Negative (NEGATIVE) Urine Glucose (UA) Negative (NEGATIVE) Urine Ketones 1+ (NEGATIVE) Urine Occult Blood Negative (NEGATIVE) Urine Nitrite Negative (NEGATIVE) Urine Bilirubin Negative (NEGATIVE) Urine Urobilinogen Normal MG/DL (0.0-1.0) Urine Leukocyte Esterase Negative (NEGATIVE) IMPRESSION: 1. Respiratory failure, chronic 2. Possible sepsis, with noted leukocytosis. 3. Paroxysmal atrial fibrillation. 4. trach 5. Metastatic head and neck cancer. 6. new onset seizures 7. History of right upper extremity DVT. PLAN care noted respiratory care Ventilatory support reviewed home meds supportive care suction no wean seizure therapy and precautions oxygen therapy prognosis guarded impression, plan, and exam edited and reviewed in detail care discussed with MARCY GARCIA Feb 23, 2017 08:15
[2017-02-23] MEDS: Digoxin Elixir 0.125mg GT SCH (08:57)
[2017-02-23] MEDS: Midodrine 10mg tab GT SCH ×3 (08:57→17:04)
[2017-02-23] MEDS: levETIRAcetam 500mg/5ml Liquid GT SCH ×2 (08:57→20:50)
[2017-02-23] MEDS: Docusate 100mg/10ml Liq GT SCH (08:57)
[2017-02-23] MEDS: Cefepime HCl 1 GM in D5W 55 ML IVPB SCH (08:57)
[2017-02-23] MEDS: Heparin 5000 units/ml inj SUBQ SCH ×2 (08:59→20:51)
--- NOTE | 2017-02-23 09:37 | General Progress Note ---
Assessment/Plan Problem List: (1) Sepsis ICD Codes: A41.9 - Sepsis, unspecified organism SNOMED: 53732814 (2) Seizures ICD Codes: R56.9 - Unspecified convulsions SNOMED: 36209295 (3) Tongue malignant neoplasm ICD Codes: C02.9 - Malignant neoplasm of tongue, unspecified SNOMED: 504017589 (4) Lung nodule seen on imaging study ICD Codes: R91.1 - Solitary pulmonary nodule SNOMED: 069442186 (5) Respiratory failure ICD Codes: J96.90 - Respiratory failure, unspecified, unspecified whether with hypoxia or hypercapnia SNOMED: 800445694 Status: stable, progressing Assessment/Plan neuro eval on keppra vent resp rx gt feeds Subjective ROS Limited/Unobtainable: No Constitutional: Reports: malaise, weakness HEENT: Reports: no symptoms Cardiovascular: Reports: no symptoms Respiratory: Reports: cough, sputum Gastrointestinal/Abdominal: Reports: difficulty swallowing Genitourinary: Reports: no symptoms Neurologic/Psychiatric: Reports: no symptoms Endocrine: Reports: no symptoms Hematologic/Lymphatic: Reports: anemia Allergies: Coded Allergies: PENICILLINS (Verified Allergy, Unknown, 07/31/16) All Systems: reviewed and negative except above Subjective no events. no szs on the vent. no fever or chills. eeg completed. no results Objective Last 24 Hour Vital Signs Date Time Temp Pulse Resp B/P (MAP) Pulse Ox O2 Delivery O2 Flow Rate FiO2 02/23/17 08:57 77 02/23/17 08:00 98.3 79 13 89/49 100 Mechanical Ventilator 40 02/23/17 07:12 77 12 40 02/23/17 05:28 80 14 40 02/23/17 04:25 97.5 79 20 108/71 100 Endotracheal Tube 79 02/23/17 04:00 40 02/23/17 04:00 76 02/23/17 03:07 84 13 40 02/23/17 01:30 79 12 40 02/23/17 00:02 97.5 85 20 105/39 100 Endotracheal Tube 85 02/23/17 00:00 86 02/23/17 00:00 40 02/22/17 23:29 86 17 40 02/22/17 21:29 80 16 40 02/22/17 20:20 97.5 79 19 107/51 100 Endotracheal Tube 02/22/17 20:00 40 02/22/17 20:00 74 02/22/17 19:43 78 14 40 02/22/17 17:00 73 12 40 02/22/17 16:00 40 02/22/17 16:00 98.2 75 17 99/52 100 Mechanical Ventilator 40 02/22/17 16:00 76 02/22/17 15:11 71 12 40 02/22/17 13:15 83 12 40 02/22/17 12:00 84 02/22/17 12:00 40 02/22/17 12:00 97.7 83 16 90/57 100 Mechanical Ventilator 40 02/22/17 11:28 91 17 40 Height (Feet): 4 Height (Inches): 10.00 Weight (Pounds): 107 General Appearance: WD/WN, alert Neck: supple Cardiovascular: regular rhythm Respiratory/Chest: lungs clear, normal breath sounds Abdomen: normal bowel sounds, non tender, soft, no organomegaly Edema: no edema noted Arm (L), no edema noted Arm (R), no edema noted Leg (L), no edema noted Leg (R), no edema noted Pedal (L), no edema noted Pedal (R), no edema noted Generalized CHRISTINA HAMMOND Feb 23, 2017 09:37
[2017-02-23 11:09] LABS: BASOPHILS % (AUTO) 1.3 % (0.0-2.0); LYMPHOCYTES % (AUTO) 16.4 % (20.0-45.0); MEAN CORPUSCULAR HEMOGLOBIN 31.3 PG (27.0-31.0); MEAN CORPUSCULAR HGB CONC 33.8 G/DL (32.0-36.0); MEAN CORPUSCULAR VOLUME 93 FL (80-99); MEAN PLATELET VOLUME 7.1 FL (6.5-10.1); MONOCYTES % (AUTO) 13.6 % (1.0-10.0); NEUTROPHILS % (AUTO) 63.7 % (45.0-75.0); PLATELET COUNT 193 K/UL (150-450); RED BLOOD COUNT 3.06 M/UL (4.20-5.40); RED CELL DISTRIBUTION WIDTH 12.3 % (11.6-14.8); WHITE BLOOD COUNT 8.6 K/UL (4.8-10.8)
[2017-02-23 11:29] LABS: ALANINE AMINOTRANSFERASE 11 U/L (3-33); ANION GAP 8 (5-15); ASPARTATE AMINO TRANSFERASE 22 U/L (5-40); CARBON DIOXIDE 30 mEQ/L (20-30); CHLORIDE 103 mEQ/L (98-107); CREATININE 0.7 mg/dL (0.5-0.9); HEMOLYSIS 1; POTASSIUM 4.2 mEQ/L (3.4-4.9); SODIUM 141 mEQ/L (135-145); TOTAL PROTEIN 6.5 g/dL (6.6-8.7)
[2017-02-23 11:32] LABS: THYROID STIMULATING HORMONE 0.015 uIU/mL (0.300-4.500)
--- NOTE | 2017-02-23 12:21 | Neurology Progress Note ---
Interim History Interim History ROS Limited/Unobtainable: No Objective Physical Exam Last Vital Signs Date Time Temp Pulse Resp B/P (MAP) Pulse Ox O2 Delivery O2 Flow Rate FiO2 02/23/17 10:57 72 12 40 02/23/17 08:00 98.3 89/49 100 Mechanical Ventilator 02/22/17 01:50 5.0 Laboratory Tests Test 02/23/17 10:45 White Blood Count 8.6 K/UL (4.8-10.8) Red Blood Count 3.06 M/UL (4.20-5.40) L Hemoglobin 9.6 G/DL (12.0-16.0) L Hematocrit 28.4 % (37.0-47.0) L Mean Corpuscular Volume 93 FL (80-99) Mean Corpuscular Hemoglobin 31.3 PG (27.0-31.0) H Mean Corpuscular Hemoglobin Concent 33.8 G/DL (32.0-36.0) Red Cell Distribution Width 12.3 % (11.6-14.8) Platelet Count 193 K/UL (150-450) Mean Platelet Volume 7.1 FL (6.5-10.1) Neutrophils (%) (Auto) 63.7 % (45.0-75.0) Lymphocytes (%) (Auto) 16.4 % (20.0-45.0) L Monocytes (%) (Auto) 13.6 % (1.0-10.0) H Eosinophils (%) (Auto) 5.0 % (0.0-3.0) H Basophils (%) (Auto) 1.3 % (0.0-2.0) Sodium Level 141 mEQ/L (135-145) Potassium Level 4.2 mEQ/L (3.4-4.9) Chloride Level 103 mEQ/L (98-107) Carbon Dioxide Level 30 mEQ/L (20-30) Anion Gap 8 (5-15) Blood Urea Nitrogen 14 mg/dL (7-23) Creatinine 0.7 mg/dL (0.5-0.9) Estimat Glomerular Filtration Rate mL/min (>60) Glucose Level 119 mg/dL (74-106) H Calcium Level 9.0 mg/dL (8.6-10.2) Total Bilirubin 0.2 mg/dL (0.0-1.2) Aspartate Amino Transf (AST/SGOT) 22 U/L (5-40) Alanine Aminotransferase (ALT/SGPT) 11 U/L (3-33) Alkaline Phosphatase 68 U/L (35-104) Total Protein 6.5 g/dL (6.6-8.7) L Albumin 3.3 g/dL (3.5-5.2) L Globulin 3.2 g/dL Albumin/Globulin Ratio 1.0 (1.0-2.7) Thyroid Stimulating Hormone (TSH) 0.015 uIU/mL (0.300-4.500) Digoxin Level Pending Impression/Recommendations Problems: (1) new onset of generalised seizure activity (2) Tongue malignant neoplasm Status: stable, progressing Recommendations #[id number] DENNIS BULLARD Feb 23, 2017 12:21
[2017-02-23 17:16] LABS: DIGOXIN 1.5 ng/mL (0.5-2.0)
[2017-02-24 03:34] VITALS: BP 97/44
--- NOTE | 2017-02-24 04:30 | Progress Note ---
DATE: 02/23/2017 CARDIOLOGY PROGRESS NOTE Subjective: The patient has not had any new seizures. She is on Keppra. She remains on ventilator support. Monitored rhythm, sinus. OBJECTIVE: GENERAL: Alert. Vital Signs: Blood pressure 89/49 to 106/71, heart rate in the 70s, respiratory rate 12 to 20, and she is afebrile. LUNGS: Bilateral breath sounds. HEART: Regular rhythm and rate. Normal S1 and S2 with no murmur. ABDOMEN: Soft. G-tube intact. EXTREMITIES: No edema. Laboratory And Diagnostic Data: White count 8.5 and hemoglobin 9.6. Digoxin level 1.5. BUN 14, creatinine 0.7 and potassium 4.2. TSH 0.015. Albumin 3.3. IMPRESSION: 1. New onset seizure. 2. Metastatic head and neck cancer. 3. Paroxysmal atrial fibrillation. 4. Chronic diastolic congestive heart failure. 5. Mild protein-calorie malnutrition. 6. Low baseline blood pressure due to autonomic dysfunction. 7. Possible hyperthyroid state due to replacement therapy with low thyroid stimulating hormone noted. Plan: Check full thyroid panel. Consider decrease dose of levothyroxine. Continue midodrine at this time. Digitalis for rate control in the event of atrial fibrillation episodes. Chi Bhatti M.D. DR: MYRNA JOB#: [id number] CC:
[2017-02-24 05:30] LABS: ALANINE AMINOTRANSFERASE 10 U/L (3-33); ALBUMIN/GLOBULIN RATIO 0.9 (1.0-2.7); ANION GAP 8 (5-15); ASPARTATE AMINO TRANSFERASE 21 U/L (5-40); CALCIUM 8.9 mg/dL (8.6-10.2); CARBON DIOXIDE 30 mEQ/L (20-30); CHLORIDE 104 mEQ/L (98-107); CREATININE 0.6 mg/dL (0.5-0.9); HEMOLYSIS 2; MAGNESIUM 2.1 mg/dL (1.7-2.5); POTASSIUM 4.3 mEQ/L (3.4-4.9); SODIUM 142 mEQ/L (135-145); TOTAL PROTEIN 6.6 g/dL (6.6-8.7)
--- NOTE | 2017-02-24 05:49 | Pulmonology Progress Note ---
Assessment/Plan Assessment/Plan IMPRESSION: 1. Respiratory failure, chronic 2. Possible sepsis, with noted leukocytosis. 3. Paroxysmal atrial fibrillation. 4. trach 5. Metastatic head and neck cancer. 6. new onset seizures 7. History of right upper extremity DVT. PLAN care noted respiratory care as is Ventilatory support reviewed home meds supportive care suction for change no wean seizure therapy and precautions oxygen therapy and titrate prognosis guarded impression, plan, and exam edited and reviewed in detail care discussed with RN Subjective ROS Limited/Unobtainable: Yes Allergies: Coded Allergies: PENICILLINS (Verified Allergy, Unknown, 07/31/16) Objective Last 24 Hour Vital Signs Date Time Temp Pulse Resp B/P (MAP) Pulse Ox O2 Delivery O2 Flow Rate FiO2 02/24/17 05:06 92 15 40 02/24/17 04:00 40 02/24/17 03:34 98.2 86 20 97/44 98 Mechanical Ventilator 86 02/24/17 03:33 88 02/24/17 03:10 92 14 40 02/24/17 01:25 92 14 40 02/24/17 00:00 40 02/23/17 23:37 101 02/23/17 23:35 85 12 40 02/23/17 23:21 98.1 86 20 96/44 99 Mechanical Ventilator 86 02/23/17 21:04 80 14 40 02/23/17 20:00 40 02/23/17 19:28 89 02/23/17 19:28 98.2 93 20 122/38 100 Mechanical Ventilator 93 02/23/17 19:18 81 13 40 02/23/17 17:24 89 13 40 02/23/17 16:18 40 02/23/17 16:17 75 02/23/17 16:00 98.6 82 13 112/62 100 Mechanical Ventilator 40 02/23/17 15:14 71 12 40 02/23/17 13:04 69 12 40 02/23/17 12:29 40 02/23/17 12:00 98.7 75 14 90/52 100 Mechanical Ventilator 40 02/23/17 12:00 70 02/23/17 10:57 72 12 40 02/23/17 09:12 85 16 40 02/23/17 08:57 77 02/23/17 08:00 40 02/23/17 08:00 79 02/23/17 08:00 98.3 79 13 89/49 100 Mechanical Ventilator 40 02/23/17 07:12 77 12 40 Objective WDWN NAD chronically ill trach clear breath sounds bilaterally without rhonchi or wheeze [id number] without MRG NABS nontender no HSM GT no CC some edema weak nonfocal Microbiology Date/Time Source Procedure Growth Status 02/21/17 22:30 Blood Blood Culture - Preliminary NO GROWTH AFTER 48 HOURS Resulted 02/21/17 22:30 Blood Blood Culture - Preliminary NO GROWTH AFTER 48 HOURS Resulted Laboratory Tests 02/23/17 10:45: White Blood Count 8.6, Red Blood Count 3.06L, Hemoglobin 9.6L, Hematocrit 28.4L , Mean Corpuscular Volume 93, Mean Corpuscular Hemoglobin 31.3H, Mean Corpuscular Hemoglobin Concent 33.8, Red Cell Distribution Width 12.3, Platelet Count 193, Mean Platelet Volume 7.1, Neutrophils (%) (Auto) 63.7, Lymphocytes (% ) (Auto) 16.4L, Monocytes (%) (Auto) 13.6H, Eosinophils (%) (Auto) 5.0H, Basophils (%) (Auto) 1.3, Sodium Level 141, Potassium Level 4.2, Chloride Level 103, Carbon Dioxide Level 30, Anion Gap 8, Blood Urea Nitrogen 14, Creatinine 0.7, Estimat Glomerular Filtration Rate , Glucose Level 119H, Calcium Level 9.0 , Total Bilirubin 0.2, Aspartate Amino Transf (AST/SGOT) 22, Alanine Aminotransferase (ALT/SGPT) 11, Alkaline Phosphatase 68, Total Protein 6.5L, Albumin 3.3L, Globulin 3.2, Albumin/Globulin Ratio 1.0, Thyroid Stimulating Hormone (TSH) 0.015L, Digoxin Level 1.5 02/24/17 04:20: Sodium Level 142, Potassium Level 4.3, Chloride Level 104, Carbon Dioxide Level 30, Anion Gap 8, Blood Urea Nitrogen 17, Creatinine 0.6, Estimat Glomerular Filtration Rate , Glucose Level 119H, Calcium Level 8.9, Total Bilirubin < 0.2, Aspartate Amino Transf (AST/SGOT) 21, Alanine Aminotransferase (ALT/SGPT) 10, Alkaline Phosphatase 72, Total Protein 6.6, Albumin 3.2L, Globulin 3.4, Albumin/ Globulin Ratio 0.9L, Magnesium Level 2.1, Pro-B-Type Natriuretic Peptide 734H, Free Thyroxine 1.76, Triiodothyronine (T3) Uptake [Pending] Current Medications Medications (Trade) Dose Ordered Sig/Josiah Route PRN Reason Start Time Stop Time Status Last Admin Dose Admin Acetaminophen (Tylenol) 650 mg Q4H PRN ORAL Pain Scale (3-5) 02/22/17 07:00 03/24/17 06:59 Albuterol/ Ipratropium (DuoNeb 0.5-3(2.5)mg/3ml) 3 ml Q4H PRN HHN Shortness of Breath 02/22/17 06:30 02/27/17 06:29 Amitriptyline HCl (Elavil) 10 mg BEDTIME GT 02/22/17 21:00 03/24/17 20:59 02/23/17 20:50 Cefepime HCl 1 gm/ Dextrose 55 ml @ 110 mls/hr Q24H IVPB 02/22/17 09:00 03/01/17 08:59 02/23/17 08:57 Dextrose (Dextrose 50%) STAT PRN IV Hypoglycemia 02/22/17 06:30 03/24/17 06:29 Digoxin (Lanoxin) 0.125 mg DAILY GT 02/22/17 09:00 03/24/17 08:59 02/23/17 08:57 Docusate Sodium (Colace) 100 mg DAILY GT 02/22/17 09:00 03/24/17 08:59 02/23/17 08:57 Heparin Sodium (Porcine) (Heparin 5000 units/ml) 5,000 units EVERY 12 HOURS SUBQ 02/22/17 09:00 03/24/17 08:59 02/23/17 20:51 Levetiracetam (Keppra) 250 mg Q12HR GT 02/22/17 09:00 03/24/17 08:59 02/23/17 20:50 Levothyroxine Sodium (Synthroid) 150 mcg DAILY GT 02/22/17 09:00 03/24/17 08:59 02/23/17 08:57 Midodrine (Pro-Amatine) 10 mg THREE TIMES A DAY GT 02/22/17 09:00 03/24/17 08:59 02/23/17 17:04 MARCY MAJOR Feb 24, 2017 05:49
[2017-02-24 08:04] VITALS: BP 108/54
[2017-02-24] MEDS: Cefepime HCl 1 GM in D5W 55 ML IVPB SCH (09:33)
[2017-02-24] MEDS: levETIRAcetam 500mg/5ml Liquid GT SCH ×2 (09:33→20:52)
[2017-02-24] MEDS: Digoxin Elixir 0.125mg GT SCH (09:33)
[2017-02-24] MEDS: Midodrine 10mg tab GT SCH ×3 (09:33→17:52)
[2017-02-24] MEDS: Docusate 100mg/10ml Liq GT SCH (09:35)
[2017-02-24] MEDS: Heparin 5000 units/ml inj SUBQ SCH ×3 (09:35→20:58)
[2017-02-24 12:00] VITALS: BP 111/62
--- NOTE | 2017-02-24 12:11 | General Progress Note ---
Assessment/Plan Problem List: (1) Sepsis ICD Codes: A41.9 - Sepsis, unspecified organism SNOMED: 48077947 (2) Seizures ICD Codes: R56.9 - Unspecified convulsions SNOMED: 30358219 (3) Tongue malignant neoplasm ICD Codes: C02.9 - Malignant neoplasm of tongue, unspecified SNOMED: 801474947 (4) Lung nodule seen on imaging study ICD Codes: R91.1 - Solitary pulmonary nodule SNOMED: 237596549 (5) Respiratory failure ICD Codes: J96.90 - Respiratory failure, unspecified, unspecified whether with hypoxia or hypercapnia SNOMED: 294459907 Status: stable Assessment/Plan neuro eval appreciated on keppra- ?continue vent resp rx gt feeds Subjective ROS Limited/Unobtainable: No Constitutional: Reports: malaise, weakness HEENT: Reports: no symptoms Cardiovascular: Reports: no symptoms Respiratory: Reports: cough, shortness of breath Gastrointestinal/Abdominal: Reports: difficulty swallowing Genitourinary: Reports: no symptoms Neurologic/Psychiatric: Reports: pre-existing deficit Endocrine: Reports: no symptoms Hematologic/Lymphatic: Reports: anemia Allergies: Coded Allergies: PENICILLINS (Verified Allergy, Unknown, 07/31/16) All Systems: reviewed and negative except above Subjective no events. no szs on the vent. no fever or chills. awake. follows simple commands Objective Last 24 Hour Vital Signs Date Time Temp Pulse Resp B/P (MAP) Pulse Ox O2 Delivery O2 Flow Rate FiO2 02/24/17 11:03 86 15 40 02/24/17 09:45 87 16 40 02/24/17 09:33 92 02/24/17 08:38 92 02/24/17 08:04 97.9 85 15 108/54 100 Mechanical Ventilator 40 02/24/17 08:00 40 02/24/17 07:41 92 19 40 02/24/17 05:06 92 15 40 02/24/17 04:00 40 02/24/17 03:34 98.2 86 20 97/44 98 Mechanical Ventilator 86 02/24/17 03:33 88 02/24/17 03:10 92 14 40 02/24/17 01:25 92 14 40 02/24/17 00:00 40 02/23/17 23:37 101 02/23/17 23:35 85 12 40 02/23/17 23:21 98.1 86 20 96/44 99 Mechanical Ventilator 86 02/23/17 21:04 80 14 40 02/23/17 20:00 40 02/23/17 19:28 89 02/23/17 19:28 98.2 93 20 122/38 100 Mechanical Ventilator 93 02/23/17 19:18 81 13 40 02/23/17 17:24 89 13 40 02/23/17 16:18 40 02/23/17 16:17 75 02/23/17 16:00 98.6 82 13 112/62 100 Mechanical Ventilator 40 02/23/17 15:14 71 12 40 02/23/17 13:04 69 12 40 02/23/17 12:29 40 Intake and Output 02/24/17 02/25/17 19:00 07:00 Intake Total 105 ml Balance 105 ml IV Total 55 ml Other 50 ml # Bowel Movements 1 Laboratory Tests 02/24/17 04:20: Sodium Level 142, Potassium Level 4.3, Chloride Level 104, Carbon Dioxide Level 30, Anion Gap 8, Blood Urea Nitrogen 17, Creatinine 0.6, Estimat Glomerular Filtration Rate , Glucose Level 119H, Calcium Level 8.9, Magnesium Level 2.1, Total Bilirubin < 0.2, Aspartate Amino Transf (AST/SGOT) 21, Alanine Aminotransferase (ALT/SGPT) 10, Alkaline Phosphatase 72, Pro-B-Type Natriuretic Peptide 734H, Total Protein 6.6, Albumin 3.2L, Globulin 3.4, Albumin/Globulin Ratio 0.9L, Free Thyroxine 1.76, Triiodothyronine (T3) Uptake [Pending] Height (Feet): 4 Height (Inches): 10.00 Weight (Pounds): 107 Objective General Appearance: WD/WN, alert. on the vent Neck: supple Cardiovascular: regular rhythm Respiratory/Chest: lungs clear, normal breath sounds Abdomen: normal bowel sounds, non tender, soft, no organomegaly Edema: no edema noted Arm (L), no edema noted Arm (R), no edema noted Leg (L), no edema noted Leg (R), no edema noted Pedal (L), no edema noted Pedal (R), no edema noted Generalized CHRISTINA HAMMOND Feb 24, 2017 12:11
[2017-02-24 16:00] VITALS: BP 110/68
[2017-02-24] MEDS ORDERED: Tubing IV Secondary IV ONE (16:45)
[2017-02-24] MEDS ORDERED: NS 275ml ONE (16:45)
--- NOTE | 2017-02-24 18:30 | Progress Note ---
DATE: 02/24/2017 CARDIOLOGY PROGRESS NOTE Subjective: The patient remains on ventilator support. No new seizures. She is tolerating G-tube feedings. OBJECTIVE: Vital Signs: Blood pressure 108/54, pulse 85, respiratory rate 15, and afebrile. LUNGS: Bilateral breath sounds. HEART: Regular rhythm and rate. Normal S1 and S2. ABDOMEN: Soft. G-tube intact. EXTREMITIES: No edema. Laboratory And Diagnostic Data: Sodium 142, potassium 4.3, bicarbonate 30, BUN 17, creatinine 0.6, and glucose 119. Pro-natriuretic peptide 734. Albumin 3.2. Free T4 1.76. T3 uptake pending. IMPRESSION: 1. New onset seizure. 2. Paroxysmal atrial fibrillation. 3. Autonomic dysfunction with low baseline blood pressure. 4. Tracheostomy and respiratory failure. 5. Head and neck cancer. 6. Possible hyperthyroid state due to exogenous replacement. 7. Acute on chronic diastolic congestive heart failure. PLAN: 1. Maintain digitalis for rate control. 2. Consider decreasing dose of levothyroxine. 3. Await final laboratory results. 4. Respiratory hygiene and respiratory support. 5. Antiseizure therapy. 6. Hold diuresis. 7. Review CAT scan of the chest. 8. We will follow. Chi Bhatti M.D. DR: MYRNA JOB#: [id number] CC:
[2017-02-24 20:00] VITALS: BP 110/55
[2017-02-25] VITALS: BP 104/54
[2017-02-25 04:00] VITALS: BP 96/59
--- NOTE | 2017-02-25 07:56 | General Progress Note ---
Assessment/Plan Problem List: (1) Sepsis ICD Codes: A41.9 - Sepsis, unspecified organism SNOMED: 14787979 (2) Seizures ICD Codes: R56.9 - Unspecified convulsions SNOMED: 91174830 (3) Tongue malignant neoplasm ICD Codes: C02.9 - Malignant neoplasm of tongue, unspecified SNOMED: 369063408 (4) Lung nodule seen on imaging study ICD Codes: R91.1 - Solitary pulmonary nodule SNOMED: 193583535 (5) Respiratory failure ICD Codes: J96.90 - Respiratory failure, unspecified, unspecified whether with hypoxia or hypercapnia SNOMED: 170576384 Status: stable, progressing Assessment/Plan neuro eval appreciated on - ?continue for now. await further recs from neuro vent resp rx gt feeds Subjective ROS Limited/Unobtainable: No Constitutional: Reports: malaise, weakness HEENT: Reports: no symptoms Cardiovascular: Reports: no symptoms Respiratory: Reports: cough, shortness of breath, sputum Gastrointestinal/Abdominal: Reports: difficulty swallowing Genitourinary: Reports: no symptoms Neurologic/Psychiatric: Reports: pre-existing deficit Endocrine: Reports: no symptoms Hematologic/Lymphatic: Reports: no symptoms Allergies: Coded Allergies: PENICILLINS (Verified Allergy, Unknown, 07/31/16) All Systems: reviewed and negative except above Subjective no events. no szs on the vent. no fever or chills. awake. follows simple commands neuro noted. on await eeg results Objective Last 24 Hour Vital Signs Date Time Temp Pulse Resp B/P (MAP) Pulse Ox O2 Delivery O2 Flow Rate FiO2 02/25/17 05:05 88 19 40 02/25/17 04:00 97.3 89 14 96/59 100 Mechanical Ventilator 40 02/25/17 04:00 40 02/25/17 03:30 95 02/25/17 03:14 101 19 40 02/25/17 01:10 90 18 40 02/25/17 00:00 92 02/25/17 00:00 99.0 93 16 104/54 99 Mechanical Ventilator 40 02/24/17 23:25 101 19 Mechanical Ventilator 40 02/24/17 23:24 101 18 40 02/24/17 21:18 98 24 40 02/24/17 20:00 86 02/24/17 20:00 40 02/24/17 20:00 98.7 85 17 110/55 100 Mechanical Ventilator 40 02/24/17 19:18 88 24 40 02/24/17 17:03 99 24 40 02/24/17 16:00 97.2 85 18 110/68 100 Mechanical Ventilator 40 02/24/17 16:00 40 02/24/17 15:35 86 02/24/17 15:06 91 15 40 02/24/17 13:23 86 02/24/17 12:49 84 16 40 02/24/17 12:00 40 02/24/17 12:00 97.5 90 20 111/62 100 Mechanical Ventilator 40 02/24/17 11:03 86 15 40 02/24/17 09:45 87 16 40 02/24/17 09:33 92 02/24/17 08:38 92 02/24/17 08:04 97.9 85 15 108/54 100 Mechanical Ventilator 40 02/24/17 08:00 40 Height (Feet): 4 Height (Inches): 10.00 Weight (Pounds): 107 Objective General Appearance: WD/WN, alert. on the vent Neck: supple Cardiovascular: regular rhythm Respiratory/Chest: lungs clear, normal breath sounds Abdomen: normal bowel sounds, non tender, soft, no organomegaly Edema: no edema noted Arm (L), no edema noted Arm (R), no edema noted Leg (L), no edema noted Leg (R), no edema noted Pedal (L), no edema noted Pedal (R), no edema noted Generalized CHRISTINA HAMMOND Feb 25, 2017 07:56
[2017-02-25 08:00] VITALS: BP 104/46
--- NOTE | 2017-02-25 08:30 | Pulmonology Progress Note ---
Assessment/Plan Assessment/Plan IMPRESSION: 1. Respiratory failure, chronic 2. Possible sepsis, with noted leukocytosis. 3. Paroxysmal atrial fibrillation. 4. trach 5. Metastatic head and neck cancer. 6. new onset seizures 7. History of right upper extremity DVT. PLAN care noted respiratory care as is Ventilatory support reviewed home meds supportive care neurology called suction for change no wean- vent settings as is seizure therapy and precautions oxygen therapy and titrate prognosis guarded cultures reviewed impression, plan, and exam edited and reviewed in detail care discussed with RN Subjective ROS Limited/Unobtainable: Yes Allergies: Coded Allergies: PENICILLINS (Verified Allergy, Unknown, 07/31/16) Subjective care noted and discussed on the ventilator Objective Last 24 Hour Vital Signs Date Time Temp Pulse Resp B/P (MAP) Pulse Ox O2 Delivery O2 Flow Rate FiO2 02/25/17 08:00 98.9 91 13 104/46 100 Mechanical Ventilator 40 02/25/17 05:05 88 19 40 02/25/17 04:00 97.3 89 14 96/59 100 Mechanical Ventilator 40 02/25/17 04:00 40 02/25/17 03:30 95 02/25/17 03:14 101 19 40 02/25/17 01:10 90 18 40 02/25/17 00:00 92 02/25/17 00:00 99.0 93 16 104/54 99 Mechanical Ventilator 40 02/24/17 23:25 101 19 Mechanical Ventilator 40 02/24/17 23:24 101 18 40 02/24/17 21:18 98 24 40 02/24/17 20:00 86 02/24/17 20:00 40 02/24/17 20:00 98.7 85 17 110/55 100 Mechanical Ventilator 40 02/24/17 19:18 88 24 40 02/24/17 17:03 99 24 40 02/24/17 16:00 97.2 85 18 110/68 100 Mechanical Ventilator 40 02/24/17 16:00 40 02/24/17 15:35 86 02/24/17 15:06 91 15 40 02/24/17 13:23 86 02/24/17 12:49 84 16 40 02/24/17 12:00 40 02/24/17 12:00 97.5 90 20 111/62 100 Mechanical Ventilator 40 02/24/17 11:03 86 15 40 02/24/17 09:45 87 16 40 9/23/17 09:33 92 02/24/17 08:38 92 Objective WDWN NAD chronically ill trach clear breath sounds bilaterally without rhonchi or wheeze [id number] without MRG NABS nontender no HSM GT no CC some edema weak nonfocal Current Medications Medications (Trade) Dose Ordered Sig/Josiah Route PRN Reason Start Time Stop Time Status Last Admin Dose Admin Acetaminophen (Tylenol) 650 mg Q4H PRN ORAL Pain Scale (3-5) 02/22/17 07:00 03/24/17 06:59 Albuterol/ Ipratropium (DuoNeb 0.5-3(2.5)mg/3ml) 3 ml Q4H PRN HHN Shortness of Breath 02/22/17 06:30 02/27/17 06:29 Amitriptyline HCl (Elavil) 10 mg BEDTIME GT 02/22/17 21:00 03/24/17 20:59 02/24/17 20:53 Cefepime HCl 1 gm/ Dextrose 55 ml @ 110 mls/hr Q24H IVPB 02/22/17 09:00 03/01/17 08:59 02/24/17 09:33 Dextrose (Dextrose 50%) STAT PRN IV Hypoglycemia 02/22/17 06:30 03/24/17 06:29 Digoxin (Lanoxin) 0.125 mg DAILY GT 02/22/17 09:00 03/24/17 08:59 02/24/17 09:33 Docusate Sodium (Colace) 100 mg DAILY GT 02/22/17 09:00 03/24/17 08:59 02/23/17 08:57 Heparin Sodium (Porcine) (Heparin 5000 units/ml) 5,000 units EVERY 12 HOURS SUBQ 02/22/17 09:00 03/24/17 08:59 02/24/17 20:58 Levetiracetam (Keppra) 250 mg Q12HR GT 02/22/17 09:00 03/24/17 08:59 02/24/17 20:52 Levothyroxine Sodium (Synthroid) 150 mcg DAILY GT 02/22/17 09:00 03/24/17 08:59 02/24/17 09:33 Midodrine (Pro-Amatine) 10 mg THREE TIMES A DAY GT 02/22/17 09:00 03/24/17 08:59 02/24/17 17:52 MARCY MAJOR Feb 25, 2017 08:30
[2017-02-25] MEDS: Docusate 100mg/10ml Liq GT SCH (08:50)
[2017-02-25] MEDS: Midodrine 10mg tab GT SCH ×3 (08:51→17:31)
[2017-02-25] MEDS: Digoxin Elixir 0.125mg GT SCH (08:51)
[2017-02-25] MEDS: Cefepime HCl 1 GM in D5W 55 ML IVPB SCH (08:51)
[2017-02-25] MEDS: levETIRAcetam 500mg/5ml Liquid GT SCH ×2 (08:51→20:40)
[2017-02-25] MEDS: Heparin 5000 units/ml inj SUBQ SCH ×2 (08:53→20:36)
[2017-02-25 12:00] VITALS: BP 94/42
[2017-02-25 16:00] VITALS: BP 96/43
[2017-02-25 20:20] VITALS: BP 120/54
--- NOTE | 2017-02-25 23:15 | Progress Note ---
DATE: 02/25/2017 CARDIOLOGY PROGRESS NOTE Subjective: The patient remains on ventilator support. No new seizures. She has not had fever or chills. She follows simple commands. OBJECTIVE: Vital Signs: Blood pressure 96/59 to 104/54, heart rate 88 to 101, respiratory rate 14 to 19, the patient is afebrile. NECK: Thin trach secretions. LUNGS: Bilateral breath sounds. HEART: Regular rhythm and rate. Normal S1 and S2. ABDOMEN: Soft with G-tube. EXTREMITIES: Without edema. LABORATORY DATA: Blood cultures negative. IMPRESSION: 1. New-onset seizure. 2. Mild protein-calorie malnutrition. 3. Respiratory failure with tracheostomy. 4. Metastatic head and neck cancer. 5. Paroxysmal atrial fibrillation. 6. Autonomic dysfunction with chronic hypotension. 7. Acute on chronic diastolic congestive heart failure, clinically compensated. PLAN: 1. Await EEG. 2. Continue Keppra. 3. Protein supplement by G-tube. 4. No diuresis needed presently. 5. Follow up thyroid function and adjust thyroid replacement dose accordingly. 6. Continue Digitalis for rate control in the events of paroxysms of atrial fibrillation. 7. Titrate midodrine for blood pressure control. Chi Bhatti M.D. DR: MADAN JOB#: [id number] CC:
[2017-02-26 00:16] VITALS: BP 108/56
[2017-02-26 04:00] VITALS: BP 111/58
[2017-02-26 07:56] VITALS: BP 94/48
[2017-02-26] MEDS: Docusate 100mg/10ml Liq GT SCH (08:01)
[2017-02-26] MEDS: levETIRAcetam 500mg/5ml Liquid GT SCH (08:01)
[2017-02-26] MEDS: Digoxin Elixir 0.125mg GT SCH (08:02)
[2017-02-26] MEDS: Midodrine 10mg tab GT SCH ×3 (08:02→17:26)
[2017-02-26] MEDS: Cefepime HCl 1 GM in D5W 55 ML IVPB SCH (08:03)
[2017-02-26] MEDS: Heparin 5000 units/ml inj SUBQ SCH (08:04)
--- NOTE | 2017-02-26 08:30 | Pulmonology Progress Note ---
Assessment/Plan Assessment/Plan IMPRESSION: 1. Respiratory failure, chronic 2. Possible sepsis, with noted leukocytosis. 3. Paroxysmal atrial fibrillation. 4. trach 5. Metastatic head and neck cancer. 6. new onset seizures 7. History of right upper extremity DVT. PLAN care noted respiratory care as is Ventilatory support reviewed home meds supportive care neurology called suction for change no wean- vent settings as is seizure therapy and precautions oxygen therapy and titrate prognosis guarded cultures reviewed may dc per pulmonary ' transition to home vent on dc impression, plan, and exam edited and reviewed in detail care discussed with RN Subjective ROS Limited/Unobtainable: Yes Allergies: Coded Allergies: PENICILLINS (Verified Allergy, Unknown, 07/31/16) Subjective care noted and discussed on the ventilator Objective Last 24 Hour Vital Signs Date Time Temp Pulse Resp B/P (MAP) Pulse Ox O2 Delivery O2 Flow Rate FiO2 02/26/17 08:02 85 02/26/17 07:56 96.8 85 16 94/48 100 Mechanical Ventilator 40 02/26/17 07:55 86 12 40 02/26/17 05:15 91 12 40 02/26/17 04:00 98.0 88 16 111/58 100 Mechanical Ventilator 40 02/26/17 04:00 40 02/26/17 03:36 87 02/26/17 02:33 88 12 40 02/26/17 01:18 86 31 40 02/26/17 00:16 98.2 89 12 108/56 100 Mechanical Ventilator 40 02/26/17 00:00 40 02/26/17 00:00 89 02/25/17 23:04 91 15 40 02/25/17 20:52 88 16 40 02/25/17 20:20 98.9 86 14 120/54 100 Mechanical Ventilator 40 02/25/17 20:00 40 02/25/17 20:00 87 02/25/17 19:32 82 15 40 02/25/17 17:12 78 14 40 02/25/17 16:00 98.5 79 15 96/43 100 Mechanical Ventilator 40 02/25/17 16:00 79 02/25/17 16:00 40 02/25/17 15:48 78 02/25/17 14:47 80 12 40 02/25/17 13:07 84 14 40 02/25/17 12:00 98.7 77 13 94/42 99 Mechanical Ventilator 40 02/25/17 12:00 83 02/25/17 12:00 40 02/25/17 10:57 77 13 40 02/25/17 08:51 95 02/25/17 08:46 75 12 40 Objective WDWN NAD chronically ill trach clear breath sounds bilaterally without rhonchi or wheeze [id number] without MRG NABS nontender no HSM GT no CC some edema weak nonfocal Current Medications Medications (Trade) Dose Ordered Sig/Josiah Route PRN Reason Start Time Stop Time Status Last Admin Dose Admin Acetaminophen (Tylenol) 650 mg Q4H PRN ORAL Pain Scale (3-5) 02/22/17 07:00 03/24/17 06:59 Albuterol/ Ipratropium (DuoNeb 0.5-3(2.5)mg/3ml) 3 ml Q4H PRN HHN Shortness of Breath 02/22/17 06:30 02/27/17 06:29 Amitriptyline HCl (Elavil) 10 mg BEDTIME GT 02/22/17 21:00 03/24/17 20:59 02/25/17 20:40 Cefepime HCl 1 gm/ Dextrose 55 ml @ 110 mls/hr Q24H IVPB 02/22/17 09:00 03/01/17 08:59 02/26/17 08:03 Dextrose (Dextrose 50%) STAT PRN IV Hypoglycemia 02/22/17 06:30 03/24/17 06:29 Digoxin (Lanoxin) 0.125 mg DAILY GT 02/22/17 09:00 03/24/17 08:59 02/26/17 08:02 Docusate Sodium (Colace) 100 mg DAILY GT 02/22/17 09:00 03/24/17 08:59 02/23/17 08:57 Heparin Sodium (Porcine) (Heparin 5000 units/ml) 5,000 units EVERY 12 HOURS SUBQ 02/22/17 09:00 03/24/17 08:59 02/26/17 08:04 Levetiracetam (Keppra) 250 mg Q12HR GT 02/22/17 09:00 03/24/17 08:59 02/26/17 08:01 Levothyroxine Sodium (Synthroid) 150 mcg DAILY GT 02/22/17 09:00 03/24/17 08:59 02/26/17 08:02 Midodrine (Pro-Amatine) 10 mg THREE TIMES A DAY GT 02/22/17 09:00 03/24/17 08:59 02/26/17 08:02 MARCY MAJOR Feb 26, 2017 08:30
--- NOTE | 2017-02-26 09:45 | Consultation ---
DATE OF CONSULTATION: 02/23/2017 NEUROLOGICAL CONSULTATION REQUESTING PHYSICIAN: Rico Madrgial M.D. History Of Present Illness: The patient is a 81-year-old female, seen in neurological consultation to evaluate new onset of generalized seizure activity. The patient is unable to provide with the information, this was compiled from medical records note that the patient has a metastatic neck cancer, now on tracheostomy, who developed new in her life seizure activity described as very brief episodes lasting 5 to 10 seconds during which she shutting up her eyes tightly, and shaking her upper extremities. There was no defined postictal state. The patient is at baseline, which include being able to comprehend questions, able to ambulate while being with a trach. She is able to respond yes or no. In this assessment, her vital signs were stable. Heart rate of 105. No further seizure activities were noted while at the hospital. She remained awake, alert, and able to follow command. Her initial workup included laboratory studies including CBC, WBC 15.3, hemoglobin 11.2, and hematocrit 32.6. Chemistry panel unremarkable. Blood sugar 119. TSH low at 0.015. Albumin 3.3. Toxicology panel pending and urinalysis, 1+ ketones. Radiological studies included CT of the brain, which revealed chronic age-related changes. There were postsurgical changes in left mastoid and probably right mastoid area as well. There was bilateral sphenoid sinus opacification, old bilateral basal ganglia lacunar infarct. No evidence of acute abnormality. Neck CT revealed extensive abnormal soft tissue involving bilateral tonsillar region posterior oropharynx, hypopharynx most likely representing a tumor. No evidence of abscess. There was posterior tongue, probably postsurgical, edema, bilateral subcutaneous fat, and skin thickening, which is post radiation changes. With the bilateral apical pulmonary parenchymal disease, tracheostomy, degenerative spondylosis, her chest CT revealed opacification most of the left lower lobe, may be neoplasm or infiltrate, small adjacent pleural effusion, thickening of inferior major fissures, borderline mediastinal lymphadenopathy, abnormal left breast with infiltration of the skin thickening, L1 vertebral body compression fracture, , tracheostomy, and gastrostomy. Past Medical History: The patient has a history of head and neck cancer with metastasis. She is status post tracheostomy for ventilator dependency, GERD, chronic anemia, hypothyroidism, right upper extremity DVT, CHF, paroxysmal atrial fibrillation, and severe autonomic dysfunction with chronic hypotension. Medications: The patient's current treatment include antibiotics, IV fluids, , digoxin, subcutaneous heparin, Keppra 250 mg b.i.d., Synthroid, and midodrine. ALLERGIES: Penicillin. Social History: She lives at home. She is nonsmoker. No alcohol. No drug abuse. FAMILY HISTORY: Noncontributory. Review Of Systems: Unable to obtain due the patient's status, who was only able to indicate she has no headache, no pain. PHYSICAL EXAMINATION: General: Well-developed, cachectic, elderly lady, now with a tracheostomy, ventilator dependent. VITAL SIGNS: Stable. Blood pressure 138/70 and respirations 14. HEENT: Head: Normocephalic. injury. Musculoskeletal: Unremarkable. There are no deformities. Peripheral pulses 1+ and symmetric. Neurologic: Mental status, she is alert. Follows simple commands responding yes and no. She is able to handwrite her wishes. Cranial Nerve II: Pupils both responding to light and accommodation. Extraocular movement full range. CRANIAL NERVE V: Normal corneal responses. CRANIAL NERVE VII: No facial asymmetry. CRANIAL NERVE VIII: Grossly normal hearing. Cranial Nerves IX Through XII: Unable to protrude her tongue. Reduced gag response. Motor Exam: Able to lift arms and legs against the gravity. Strength 5/5. Deep tendon reflexes 1+ symmetric with downgoing toes on both sides. SENSORY EXAM: Normal to pinprick and light touch. IMPRESSION: 1. New onset of generalized seizure activity. 2. Metastatic head and neck carcinoma. 3. Respiratory failure, currently on tracheostomy. 4. Paroxysmal atrial fibrillation. 5. Ischemic cerebrovascular disease, multiple lacunar strokes, old. 6. L1 compression fracture? age. Discussion: The patient has no evidence of metastasis to her brain. There is ischemic cerebrovascular disease and postoperative changes in her mastoid. The patient had three seizure episodes within one week. Now, she is being placed on Keppra 250 mg, this should be further titrated up to 500 mg b.i.d. Further workup for brain metastases can involve MRI with and without contrast, deferred to Oncology. Meanwhile, continue with current treatment and respiratory support. Thank you for allowing me to see this interesting patient in neurological consultation. Mitch Fidel Felix DR: Chris JOB#: [id number] CC:
[2017-02-26 11:55] VITALS: BP 105/47
--- NOTE | 2017-02-26 12:52 | Diagnostic Imaging Report ---
APPROVED REPORT CPT Code: 65324 Present Symptoms Lower Extremity Pain: Bilateral BILATERAL: Imaging reveals a patent deep venous system bilaterally. There is no evidence of thrombus within the femoral, popliteal or tibial segments. The greater saphenous veins are also within normal limits. Doppler indicates normal spontaneous flow within these segments.
[2017-02-26] MEDS ORDERED: KEPPRA500 MG ORAL (14:08)
[2017-02-26] MEDS ORDERED: NS 275ml ONE (14:24)
[2017-02-26 16:00] VITALS: BP 101/47
--- NOTE | 2017-02-27 03:15 | Progress Note ---
DATE: 02/26/2017 CARDIOLOGY PROGRESS NOTE Subjective: No new seizures. The patient is on ventilator support. No distress. Monitored sinus. OBJECTIVE: Vital Signs: Blood pressure 94/48 to 111/58, heart rate 85, and respiratory rate 12 to 16. No fevers. LUNGS: Good breath sounds. No wheezing. Cardiovascular: Regular rhythm and rate. Normal S1 and S2 with a fourth heart sound. ABDOMEN: Soft. G-tube intact. EXTREMITIES: No edema. IMPRESSION: 1. Ventilator-dependent respiratory failure. 2. Seizure disorder. 3. Chronic diastolic congestive heart failure. 4. Paroxysmal atrial fibrillation. 5. Autonomic dysfunction with hypotension. 6. Dysphagia with gastrostomy tube. 7. 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 PLAN: 1. Home on chronic ventilator support. 2. Maintain current cardiovascular regimen including maintenance dose of . 3. No additional diuretic therapy presently planned. 4. Anti-seizure regimen in place. 5. Nutrition by feeding tube. 6. Follow up outpatient laboratory studies. 7. Titrate midodrine dosing based on blood pressure parameters. Chi Bhatti M.D. DR: DAVID JOB#: [id number] CC:
--- NOTE | 2017-02-27 17:15 | Discharge Summary ---
DATE OF ADMISSION: 02/21/2017 DATE OF DISCHARGE: 02/26/2017 ADMISSION DIAGNOSES: 1. Seizure disorder. 2. Chronic respiratory failure. 3. History of head and neck cancer. 4. History of dysphagia. DISCHARGE DIAGNOSES: 1. Seizure disorder. 2. Chronic respiratory failure. 3. History of head and neck cancer. 4. History of dysphagia. Hospital Course: The patient is a pleasant female admitted with complaints of seizures. She was admitted, had a EEG that was negative. CT scan of the head showed no evidence of stroke. Neuro consultation was obtained. The patient was started on Keppra, had no further seizures. She was discharged home in stable condition with her son. Discharge Medications: Please see discharge medication list for discharge medications. DIET: G-tube feeding. ACTIVITIES: Ad-daren. Followup: The patient will follow up in one to two weeks in the office. Rico Madrigal M.D. DR: IVONE JOB#: [id number] CC:
--- NOTE | 2017-02-27 21:30 | Electroencephalogram ---
DATE OF PROCEDURE: 02/22/2017 REFERRING PHYSICIAN: Rico Madrigal M.D. History Of Present Illness: This 81 years old female with a history of head and neck cancer, chronic seizure disorder, now ventilator assisted with tracheostomy. Treatment prior to admission of vancomycin and Keppra. The patient noted to have intermittent twitching of the left lower extremity. EEG was requested. EEG was done using 18 electrodes placed on scalp to scalp, scalp to ear montages according to 10/20 International System. Throughout the recording, background activity consists of a mixture of 7-8 cycles per second with activity low voltage irregular, intermittent appearance of sleep spindles with disorganized background noted corresponding to sleep stages. Activation procedure limited to eye open and eye closure. No asymmetry from side to side. No spike or wave activities noted. IMPRESSION: Mildly abnormal EEG in presence of mild diffuse slowing. Comment: Above abnormality is nonspecific findings, may indicate toxic or metabolic derangement. Absence of paroxysmal event does not rule out seizure disorder. Mitch Felix M.D. DR: SHERWIN JOB#: [id number] CC:
== END 2017-02-26 19:32 | disposition home or self-care (01) | DRG 870 ==
LOC: EMR 21:48 → EDBEDREQSVC 21:50 → 2W 21:52 → EDBEDREQ 22:27 → 2W 02-22 00:13
PROC: 5A1955Z Respiratory Ventilation, Greater than 96 Consecutive Hours (ICD-10-PCS; principal; 2017-02-21)
DX: A41.9 Sepsis, unspecified organism (principal); I50.33 Acute on chronic diastolic (congestive) heart failure; Z99.11 Dependence on respirator [ventilator] status; J96.10 Chronic respiratory failure, unspecified whether with hypoxia or hypercapnia; Z43.0 Encounter for attention to tracheostomy; R13.10 Dysphagia, unspecified; C78.00 Secondary malignant neoplasm of unspecified lung; Z43.1 Encounter for attention to gastrostomy; E44.1 Mild protein-calorie malnutrition; G40.909 Epilepsy, unspecified, not intractable, without status epilepticus; I48.0 Paroxysmal atrial fibrillation; Z88.0 Allergy status to penicillin; K21.9 Gastro-esophageal reflux disease without esophagitis; Z86.718 Personal history of other venous thrombosis and embolism; D63.8 Anemia in other chronic diseases classified elsewhere; F45.8 Other somatoform disorders; Z86.73 Personal history of transient ischemic attack (TIA), and cerebral infarction without residual deficits; E03.9 Hypothyroidism, unspecified; C02.9 Malignant neoplasm of tongue, unspecified
CPT/HCPCS: 36415; 51701; 70450; 70490; 71010; 71250; 80053; 80162; 81003; 82550; 82553; 82962; 83605; 83735; 83880; 84439; 84443; 84480; 84484; 85025; 87040; 93005; 93970; 94002; 94003; 94664; 95819; J7620

== ENCOUNTER 2017-02-27 16:16 | Inpatient (IN) | payer MEDICARE, BC ==
[~2017-02-27] VITALS: Ht 144.8 cm; Wt 50.8 kg
[~2017-02-27 16:16] MED LIST changes: +KEPPRA500 MG ORAL
[2017-02-27 16:25] VITALS: BP 145/60
--- NOTE | 2017-02-27 16:43 | Emergency Room Report ---
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 was changed about one month ago Recently that had noticed blood in the tracheostomy with suctioning He had pictures from this morning showing increased amounts of blood with suctioning There was no reports of vomiting Patient coughs only with a suctioning There was a questionable history of lung tumor which was treated with chemotherapy however not finalize with the therapy secondary to gastritis Allergies: Coded Allergies: PENICILLINS (Verified Allergy, Unknown, 07/31/16) Patient History Past Medical History: see triage record Pertinent Family History: none Reviewed Nursing Documentation: PMH: Agreed, PSxH: Agreed Nursing Documentation-PMH Hx Cardiac Problems: Yes - A FIB,DVT RT UPPER EXTREMITY, ANEMIA, HYPOTHYROIDISM Hx Cancer: Yes - MAGLINANT NEOPLASM OF THE TONGUE, HEAD, FACE AND NECK Hx Gastrointestinal Problems: Yes - GERD, DYSPHAGIA Hx Neurological Problems: Yes - MUSCLE WEAKNESS Hx Speech Problem: Yes Hx Weakness: Yes Review of Systems All Other Systems: negative except mentioned in HPI Physical Exam Vital Signs Date Time Temp Pulse Resp B/P (MAP) Pulse Ox O2 Delivery O2 Flow Rate FiO2 02/27/17 16:25 98.4 94 20 145/60 100 Trach Collar 5.0 Sp02 EP Interpretation: reviewed, normal General Appearance: no apparent distress Head: normocephalic, atraumatic Eyes: bilateral eye PERRL, bilateral eye EOMI ENT: hearing grossly normal, normal pharynx, TMs + canals normal, other - Tracheostomy is midline, no signs of any blood around the site, however there is small amount of blood at the tracheostomy tube at the suction connection Neck: full range of motion, supple, no meningismus, no bony tend Respiratory: no respiratory distress, no retraction, no accessory muscle use, crackles - in both lower lobes Cardiovascular #1: normal peripheral pulses, regular rate, rhythm, no edema, no gallop, no JVD, no murmur Gastrointestinal: normal bowel sounds, non tender, soft, no mass, no organomegaly, non-distended, no guarding, no hernia, no pulsatile mass, no rebound Genitourinary: no CVA tenderness Musculoskeletal: other - Patient has lower extremity weakness chronically Neurologic: oriented x3, responsive, sensory intact Psychiatric: mood/affect normal Skin: normal color, no rash, warm/dry, palpation normal Lymphatic: normal inspection, no adenopathy Medical Decision Making Diagnostic Impression: Primary Impression: Hemoptysis Additional Impression: Tracheostomy complication, unspecified ER Course Given the patient's history examined presentation imaging and blood work was initiated this is concerning for any type of pathology from the tracheostomy site down to the bronchioles Initial workup in the emergency room does not reveal any acute pathology there is no signs of any acute hemorrhage However patient did have evidence of previous blood in the tracheostomy and suctioning and requires further inpatient ENT/pulmonary consultation and followup Labs Test 02/27/17 17:22 White Blood Count 10.0 K/UL (4.8-10.8) Red Blood Count 3.57 M/UL (4.20-5.40) Hemoglobin 11.3 G/DL (12.0-16.0) Hematocrit 33.2 % (37.0-47.0) Mean Corpuscular Volume 93 FL (80-99) Mean Corpuscular Hemoglobin 31.5 PG (27.0-31.0) Mean Corpuscular Hemoglobin Concent 33.9 G/DL (32.0-36.0) Red Cell Distribution Width 12.2 % (11.6-14.8) Platelet Count 215 K/UL (150-450) Mean Platelet Volume 6.9 FL (6.5-10.1) Neutrophils (%) (Auto) 70.5 % (45.0-75.0) Lymphocytes (%) (Auto) 13.9 % (20.0-45.0) Monocytes (%) (Auto) 10.1 % (1.0-10.0) Eosinophils (%) (Auto) 4.5 % (0.0-3.0) Basophils (%) (Auto) 1.0 % (0.0-2.0) Prothrombin Time 10.2 SEC (9.30-11.50) Prothromb Time International Ratio 1.0 (0.9-1.1) Activated Partial Thromboplast Time 29 SEC (23-33) Sodium Level 143 mEQ/L (135-145) Potassium Level 3.9 mEQ/L (3.4-4.9) Chloride Level 106 mEQ/L (98-107) Carbon Dioxide Level 24 mEQ/L (20-30) Anion Gap 13 (5-15) Blood Urea Nitrogen 19 mg/dL (7-23) Creatinine 0.5 mg/dL (0.5-0.9) Estimat Glomerular Filtration Rate mL/min (>60) Glucose Level 78 mg/dL (74-106) Calcium Level 7.8 mg/dL (8.6-10.2) Total Bilirubin 0.3 mg/dL (0.0-1.2) Aspartate Amino Transf (AST/SGOT) 19 U/L (5-40) Alanine Aminotransferase (ALT/SGPT) 9 U/L (3-33) Alkaline Phosphatase 55 U/L (35-104) Total Creatine Kinase 25 U/L (26-140) Creatine Kinase MB < 1.5 ng/mL (< 3.8) Creatine Kinase MB Relative Index Troponin I < 0.30 ng/mL (<=0.30) Pro-B-Type Natriuretic Peptide 197 pg/mL (0-450) Total Protein 6.1 g/dL (6.6-8.7) Albumin 2.9 g/dL (3.5-5.2) Globulin 3.2 g/dL Albumin/Globulin Ratio 0.9 (1.0-2.7) EKG Diagnostic Results Rate: normal Rhythm: NSR ST Segments: no acute changes Rhythm Strip Diag. Results EP Interpretation: yes Rate: 66 Rhythm: NSR, no PVC's, no ectopy Chest X-Ray Diagnostic Results Chest X-Ray Diagnostic Results : Chest X-Ray Ordered: Yes # of Views/Limited/Complete: 1 View Indication: Chest Pain EP Interpretation: Yes Interpretation: no consolidation, no pneumothorax, other - Left lung mass, bilateral atelectasis Impression: No acute disease - Similar to previous x-ray Electronically Signed by: Farzad Bae DO Last Vital Signs Date Time Temp Pulse Resp B/P (MAP) Pulse Ox O2 Delivery O2 Flow Rate FiO2 02/27/17 16:25 98.4 94 20 145/60 100 Trach Collar 5.0 Status: improved Disposition: ADMITTED INPATIENT Condition: Serious FARZAD BAE D.O. Feb 27, 2017 16:43
[2017-02-27 17:44] LABS: EOSINOPHILS % (AUTO) 4.5 % (0.0-3.0); LYMPHOCYTES % (AUTO) 13.9 % (20.0-45.0); MEAN CORPUSCULAR HEMOGLOBIN 31.5 PG (27.0-31.0); MEAN CORPUSCULAR HGB CONC 33.9 G/DL (32.0-36.0); MEAN CORPUSCULAR VOLUME 93 FL (80-99); MEAN PLATELET VOLUME 6.9 FL (6.5-10.1); MONOCYTES % (AUTO) 10.1 % (1.0-10.0); NEUTROPHILS % (AUTO) 70.5 % (45.0-75.0); PLATELET COUNT 215 K/UL (150-450); RED BLOOD COUNT 3.57 M/UL (4.20-5.40); RED CELL DISTRIBUTION WIDTH 12.2 % (11.6-14.8)
[2017-02-27 17:54] LABS: ALANINE AMINOTRANSFERASE 9 U/L (3-33); ALBUMIN/GLOBULIN RATIO 0.9 (1.0-2.7); ASPARTATE AMINO TRANSFERASE 19 U/L (5-40); CALCIUM 7.8 mg/dL (8.6-10.2); CARBON DIOXIDE 24 mEQ/L (20-30); CREATININE 0.5 mg/dL (0.5-0.9); HEMOLYSIS 13; TOTAL PROTEIN 6.1 g/dL (6.6-8.7); TROPONIN I < 0.30 ng/mL (<=0.30)
[2017-02-27 17:55] LABS: ANION GAP 13 (5-15); CHLORIDE 106 mEQ/L (98-107); POTASSIUM 3.9 mEQ/L (3.4-4.9); PROTHROMBIN TIME 10.2 SEC (9.30-11.50); SODIUM 143 mEQ/L (135-145)
[2017-02-27 18:04] VITALS: BP 109/45
[2017-02-27 18:05] LABS: CKMB < 1.5 ng/mL (< 3.8)
[2017-02-27 18:15] VITALS: BP 115/37
[2017-02-27 18:50] VITALS: BP 119/73
[2017-02-27 20:00] VITALS: BP 105/58
[2017-02-28] VITALS: BP 106/59
[2017-02-28 04:00] VITALS: BP 90/55
[2017-02-28 08:21] VITALS: BP 100/47
[2017-02-28] MEDS: Furosemide 40mg tab GT SCH (08:23)
[2017-02-28] MEDS: Docusate 100mg cap ORAL SCH (08:23)
[2017-02-28] MEDS: Levofloxacin 500mg tab ORAL SCH (08:23)
[2017-02-28] MEDS: LORazepam 1mg tab GT SCH ×3 (09:00→18:00)
--- NOTE | 2017-02-28 10:36 | Diagnostic Imaging Report ---
Indication: SOB Technique: One view of the chest Comparison: 02/21/2017 Findings: Mass at the left lung base is again demonstrated. No new infiltrates. Right lung and pleural space are clear except for some scarring or atelectasis the right lung base. Tracheostomy remains. Heart size is normal. Findings are unchanged Impression: Unchanged, over 6 days, findings as above.
[2017-02-28 11:30] VITALS: BP 117/61
--- NOTE | 2017-02-28 13:56 | Pulmonology Progress Note ---
Assessment/Plan Assessment/Plan Respiratory failure metastatic cancer airway lesion trach GT anemia PLAN care noted respiratory care Ventilatory care as is SNF meds supportive care suction no wean for now oxygen therapy prognosis poor ENT evaluation recommended palliative care recommended Subjective ROS Limited/Unobtainable: Yes Allergies: Coded Allergies: PENICILLINS (Verified Allergy, Unknown, 07/31/16) Subjective returned back to hospital events noted on ventilator Objective Last 24 Hour Vital Signs Date Time Temp Pulse Resp B/P (MAP) Pulse Ox O2 Delivery O2 Flow Rate FiO2 02/28/17 12:45 76 12 30 02/28/17 12:00 30 02/28/17 11:34 85 02/28/17 11:30 97.3 82 14 117/61 100 Mechanical Ventilator 30 02/28/17 11:03 84 13 30 02/28/17 08:50 86 12 30 02/28/17 08:21 97.9 90 13 100/47 100 Mechanical Ventilator 30 02/28/17 08:00 30 02/28/17 07:30 83 02/28/17 07:01 85 12 30 02/28/17 04:48 90 14 30 02/28/17 04:00 30 02/28/17 04:00 84 02/28/17 04:00 97.3 83 15 90/55 99 Mechanical Ventilator 30 02/28/17 03:32 84 16 30 02/28/17 00:30 92 13 30 02/28/17 00:00 30 02/28/17 00:00 98.1 88 15 106/59 99 Mechanical Ventilator 30 02/28/17 00:00 88 02/27/17 23:29 89 12 30 02/27/17 21:06 86 14 30 02/27/17 20:00 97.9 93 15 105/58 100 Mechanical Ventilator 30 02/27/17 20:00 97 02/27/17 20:00 30 02/27/17 19:43 90 12 30 02/27/17 18:50 99.0 98 18 119/73 100 Mechanical Ventilator 30 02/27/17 18:45 30 02/27/17 18:15 98.1 82 17 115/37 100 Trach Collar 5.0 30 02/27/17 18:04 98.4 81 17 109/45 100 Trach Collar 5.0 30 02/27/17 18:01 98.4 81 14 109/49 100 Trach Collar 5.0 30 02/27/17 17:21 30 02/27/17 17:15 84 14 30 02/27/17 16:30 92 20 Trach Collar 5.0 02/27/17 16:25 98.4 94 20 145/60 100 Trach Collar 5.0 02/27/17 16:25 98.4 94 20 145/60 100 Trach Collar 5.0 Intake and Output 02/28/17 03/01/17 19:00 07:00 Intake Total 120 ml Balance 120 ml Intake Tube Feeding 120 ml # Bowel Movements 1 Objective WDWN NAD reduced breath sounds bilaterally without rhonchi or wheeze trach [id number] without MRG NABS nontender no HSM GT no CCE nonfocal reduced LOC Laboratory Tests 02/27/17 17:22: White Blood Count 10.0, Red Blood Count 3.57L, Hemoglobin 11.3L, Hematocrit 33.2L, Mean Corpuscular Volume 93, Mean Corpuscular Hemoglobin 31.5H, Mean Corpuscular Hemoglobin Concent 33.9, Red Cell Distribution Width 12.2, Platelet Count 215, Mean Platelet Volume 6.9, Neutrophils (%) (Auto) 70.5, Lymphocytes (% ) (Auto) 13.9L, Monocytes (%) (Auto) 10.1H, Eosinophils (%) (Auto) 4.5H, Basophils (%) (Auto) 1.0, Prothrombin Time 10.2, Prothromb Time International Ratio 1.0, Activated Partial Thromboplast Time 29, Sodium Level 143, Potassium Level 3.9, Chloride Level 106, Carbon Dioxide Level 24, Anion Gap 13, Blood Urea Nitrogen 19, Creatinine 0.5, Estimat Glomerular Filtration Rate , Glucose Level 78, Calcium Level 7.8L, Total Bilirubin 0.3, Aspartate Amino Transf (AST/ SGOT) 19, Alanine Aminotransferase (ALT/SGPT) 9, Alkaline Phosphatase 55, Total Creatine Kinase 25L, Creatine Kinase MB < 1.5, Creatine Kinase MB Relative Index , Troponin I < 0.30, Pro-B-Type Natriuretic Peptide 197, Total Protein 6.1L, Albumin 2.9L, Globulin 3.2, Albumin/Globulin Ratio 0.9L Current Medications Medications (Trade) Dose Ordered Sig/Josiah Route PRN Reason Start Time Stop Time Status Last Admin Dose Admin Acetaminophen (Tylenol) 650 mg Q4H PRN ORAL Pain Scale (3-5) 02/27/17 21:15 03/29/17 21:14 Amitriptyline HCl (Elavil) 10 mg QHS GT 02/28/17 21:00 03/30/17 20:59 Docusate Sodium (Colace) 100 mg DAILY ORAL 02/28/17 09:00 03/30/17 08:59 02/28/17 08:23 Furosemide (Lasix) 40 mg DAILY GT 02/28/17 09:00 03/30/17 08:59 02/28/17 08:23 Levetiracetam (Keppra) 500 mg BID ORAL 02/28/17 09:00 03/30/17 08:59 02/28/17 08:23 Levofloxacin (Levaquin) 500 mg DAILY ORAL 02/28/17 09:00 03/07/17 08:59 02/28/17 08:23 Levothyroxine Sodium (Synthroid) 150 mcg DAILY GT 02/28/17 09:00 03/30/17 08:59 02/28/17 08:25 Lorazepam (Ativan) 1 mg THREE TIMES A DAY GT 02/28/17 09:00 03/07/17 08:59 Midodrine (Pro-Amatine) 10 mg THREE TIMES A DAY GT 02/28/17 09:00 03/30/17 08:59 02/28/17 12:19 Ondansetron HCl (Zofran) 4 mg Q6H PRN GT Nausea & Vomiting 02/27/17 21:15 03/29/17 21:14 MARCY MAJOR Feb 28, 2017 13:56
[2017-02-28 16:25] VITALS: BP 111/56
[2017-02-28 20:00] VITALS: BP 116/62
--- NOTE | 2017-02-28 21:45 | History and Physical Report ---
DATE OF ADMISSION: 02/27/2017 CHIEF COMPLAINT: Hemoptysis. History Of Present Illness: The patient is a very pleasant and unfortunate 81-year-old female. She has a history of head and neck cancer, chronic respiratory failure, and seizure disorder. She was recently hospitalized for new onset seizures was doing well and was discharged home but several days after admission was noted to have significant amount of hemoptysis and bleeding from the trach. She was brought to the emergency room, there the bleeding have seen to be diminished. Her hemoglobin was stable. Coags were normal but in light of the recent bleeding, she has been admitted for further evaluation and care. PAST MEDICAL HISTORY: As above. PAST SURGICAL HISTORY: Includes a trach and a G-tube. CURRENT MEDICATIONS: Reconciled and reviewed. ALLERGIES: Include penicillin. FAMILY HISTORY: Noncontributory. SOCIAL HISTORY: Negative for tobacco, ethanol, or drugs. REVIEW OF SYSTEMS: Unobtainable as the patient is confused. PHYSICAL EXAMINATION: Vital signs: Temperature 98, blood pressure 117/61, pulse 82, and respirations 20. General: The patient is a well-developed female, in no apparent distress. She is chronically ill but is arousable. Neck: Supple. Trachea was midline and clean. There is no discharge or erythema noted. HEART: Regular rate and rhythm. LUNGS: Significant for few scattered rhonchi. ABDOMEN: Soft, nontender, and nondistended. EXTREMITIES: Without clubbing, cyanosis, or edema. Laboratory Data: Sodium 143 and potassium 3.9. White count 10, hemoglobin 11, hematocrit 33, and platelet count 215,000. Coags are normal. Assessment: This is a pleasant female admitted with complaints of hemoptysis that is now essentially resolved, suspect possibly from trauma due to suctioning. Plan: We will observe. Continue respiratory treatments. Cautious suctioning. If no further hemoptysis is noted, the patient likely can be discharged home. Rico Madrigal M.D. DR: IVONE JOB#: [id number] CC:
[2017-03-01 00:27] VITALS: BP 102/55
[2017-03-01 04:00] VITALS: BP 101/48
--- NOTE | 2017-03-01 07:39 | General Progress Note ---
Assessment/Plan Problem List: (1) Seizures ICD Codes: R56.9 - Unspecified convulsions SNOMED: 09022462 (2) Hemorrhage from tracheostomy stoma ICD Codes: J95.01 - Hemorrhage from tracheostomy stoma SNOMED: 12976306 (3) Tongue malignant neoplasm ICD Codes: C02.9 - Malignant neoplasm of tongue, unspecified SNOMED: 226115577 (4) Respiratory failure ICD Codes: J96.90 - Respiratory failure, unspecified, unspecified whether with hypoxia or hypercapnia SNOMED: 558748640 Status: stable Assessment/Plan monitor for bleeding resp care sz rx gt feeds will d/w son options- ?hospice Subjective ROS Limited/Unobtainable: Yes Constitutional: Reports: malaise, weakness HEENT: Reports: no symptoms Cardiovascular: Reports: no symptoms Respiratory: Reports: cough Gastrointestinal/Abdominal: Reports: difficulty swallowing Genitourinary: Reports: no symptoms Neurologic/Psychiatric: Reports: pre-existing deficit Endocrine: Reports: no symptoms Hematologic/Lymphatic: Reports: no symptoms Allergies: Coded Allergies: PENICILLINS (Verified Allergy, Unknown, 07/31/16) All Systems: reviewed and negative except above - NO Subjective no more hemoptysis noted. no distress. alert. denies chest pain CT from 1 week ago shows lung mass. Objective Last 24 Hour Vital Signs Date Time Temp Pulse Resp B/P (MAP) Pulse Ox O2 Delivery O2 Flow Rate FiO2 03/01/17 07:28 89 13 30 03/01/17 05:28 87 12 30 03/01/17 04:00 96 03/01/17 04:00 97.9 91 13 101/48 97 Mechanical Ventilator 30 03/01/17 04:00 30 03/01/17 02:47 92 12 30 03/01/17 00:57 98 15 30 03/01/17 00:27 99.5 91 16 102/55 98 Mechanical Ventilator 30 03/01/17 00:00 30 03/01/17 00:00 91 02/28/17 23:14 88 16 30 02/28/17 21:15 91 15 30 02/28/17 20:00 30 02/28/17 20:00 99.0 83 18 116/62 98 Mechanical Ventilator 30 02/28/17 19:10 80 17 30 02/28/17 19:07 79 02/28/17 17:05 81 16 30 02/28/17 16:25 97.2 80 16 111/56 100 Mechanical Ventilator 30 02/28/17 16:00 30 02/28/17 15:32 74 12 30 02/28/17 15:13 77 02/28/17 12:45 76 12 30 02/28/17 12:00 30 02/28/17 11:34 85 02/28/17 11:30 97.3 82 14 117/61 100 Mechanical Ventilator 30 02/28/17 11:03 84 13 30 02/28/17 08:50 86 12 30 02/28/17 08:21 97.9 90 13 100/47 100 Mechanical Ventilator 30 02/28/17 08:00 30 Height (Feet): 4 Height (Inches): 9.00 Weight (Pounds): 112 General Appearance: WD/WN, alert Neck: supple Cardiovascular: regular rhythm Respiratory/Chest: chest wall non-tender, rhonchi - bilaterally Abdomen: normal bowel sounds, non tender, soft, no organomegaly Edema: no edema noted Arm (L), no edema noted Arm (R), no edema noted Leg (L), no edema noted Leg (R), no edema noted Pedal (L), no edema noted Pedal (R), no edema noted Generalized CHRISTINA HAMMOND Mar 01, 2017 07:39
[2017-03-01 07:55] VITALS: BP 97/50
[2017-03-01] MEDS: Docusate 100mg cap ORAL SCH (09:00)
[2017-03-01] MEDS: LORazepam 1mg tab GT SCH ×3 (09:43→17:18)
[2017-03-01] MEDS: Levofloxacin 500mg tab ORAL SCH (09:44)
[2017-03-01] MEDS: Furosemide 40mg tab GT SCH (09:44)
--- NOTE | 2017-03-01 10:23 | Wound Care Consultation ---
Wound Assessment Wound Assessment : Wound Present on Admission: Yes New Wound: No Status Change of Wound: No Wound Location Body Site Modif: mid Wound Location Body Site: sacral Wound Type: pressure ulcer Ross Test: Does not Ross Pressure Ulcer Stage: III - resolving Wound Thickness: Full Thickness Wound Length: 1.0 Wound Width: 1.0 Wound Depth: less than 0.1 Percent of Wound [place]/Red: 100 - superficial ,scar tissue appearing Wound Drainage Amount: None Wound Drainage Odor: None/Absent Tissue Surrounding Wound: Intact Wound General Appearance: Reddened Wound Comment #1 mid sacral RESOLVING stage III . ( Pt has a history of stage 3 pressure ulcer to sacral area)- Noted site resolving, scar tissue appearing. Recommendation. -Local wound care as ordered. -Low air loss SPR mattress for wound and skin management. -Turn and reposition. -Keep clean and dry. -Optimize nutrition. -Offload heels and feet. -Apply heel protectors. -Avoid shear and friction. -Offload affected sacral pressure site. - Assess and notify MD if any further change of condition to skin is noted. YADIRA DIAMOND Mar 01, 2017 10:23
[2017-03-01 12:00] VITALS: BP 92/47
[2017-03-01 16:00] VITALS: BP 97/48
--- NOTE | 2017-03-01 17:03 | Pulmonology Progress Note ---
Assessment/Plan Assessment/Plan Respiratory failure metastatic cancer airway lesion trach GT anemia PLAN care noted respiratory care Ventilatory care as is home meds supportive care suction no wean for now oxygen therapy prognosis poor ENT evaluation if able palliative care recommended Subjective ROS Limited/Unobtainable: Yes Allergies: Coded Allergies: PENICILLINS (Verified Allergy, Unknown, 07/31/16) Subjective care noted no distress on the ventilator Objective Last 24 Hour Vital Signs Date Time Temp Pulse Resp B/P (MAP) Pulse Ox O2 Delivery O2 Flow Rate FiO2 03/01/17 16:54 81 12 30 03/01/17 16:00 96.6 77 16 97/48 98 Mechanical Ventilator 03/01/17 16:00 30 03/01/17 15:07 77 13 30 03/01/17 13:22 83 13 30 03/01/17 12:00 30 03/01/17 12:00 97.5 84 15 92/47 98 Mechanical Ventilator 30 03/01/17 11:52 80 03/01/17 10:45 80 11 30 03/01/17 09:19 83 12 30 03/01/17 08:00 30 03/01/17 07:55 98.2 85 18 97/50 98 Mechanical Ventilator 30 03/01/17 07:54 80 03/01/17 07:28 89 13 30 03/01/17 05:28 87 12 30 03/01/17 04:00 96 03/01/17 04:00 97.9 91 13 101/48 97 Mechanical Ventilator 30 03/01/17 04:00 30 03/01/17 02:47 92 12 30 03/01/17 00:57 98 15 30 03/01/17 00:27 99.5 91 16 102/55 98 Mechanical Ventilator 30 03/01/17 00:00 30 03/01/17 00:00 91 02/28/17 23:14 88 16 30 02/28/17 21:15 91 15 30 02/28/17 20:00 30 02/28/17 20:00 99.0 83 18 116/62 98 Mechanical Ventilator 30 02/28/17 19:10 80 17 30 02/28/17 19:07 79 02/28/17 17:05 81 16 30 Intake and Output 03/01/17 03/02/17 19:00 07:00 # Bowel Movements 3 Objective WDWN NAD reduced breath sounds bilaterally without rhonchi or wheeze trach [id number] without MRG NABS nontender no HSM GT no CCE nonfocal reduced LOC Current Medications Medications (Trade) Dose Ordered Sig/Josiah Route PRN Reason Start Time Stop Time Status Last Admin Dose Admin Acetaminophen (Tylenol) 650 mg Q4H PRN ORAL Pain Scale (3-5) 02/27/17 21:15 03/29/17 21:14 Amitriptyline HCl (Elavil) 10 mg QHS GT 02/28/17 21:00 03/30/17 20:59 02/28/17 20:56 Docusate Sodium (Colace) 100 mg DAILY ORAL 02/28/17 09:00 03/30/17 08:59 02/28/17 08:23 Furosemide (Lasix) 40 mg DAILY GT 02/28/17 09:00 03/30/17 08:59 03/01/17 09:44 Levetiracetam (Keppra) 500 mg BID ORAL 02/28/17 09:00 03/30/17 08:59 03/01/17 09:44 Levofloxacin (Levaquin) 500 mg DAILY ORAL 02/28/17 09:00 03/07/17 08:59 03/01/17 09:44 Levothyroxine Sodium (Synthroid) 150 mcg DAILY GT 02/28/17 09:00 03/30/17 08:59 03/01/17 09:44 Lorazepam (Ativan) 1 mg THREE TIMES A DAY GT 02/28/17 09:00 03/07/17 08:59 03/01/17 13:06 Midodrine (Pro-Amatine) 10 mg THREE TIMES A DAY GT 02/28/17 09:00 03/30/17 08:59 03/01/17 13:06 Ondansetron HCl (Zofran) 4 mg Q6H PRN GT Nausea & Vomiting 02/27/17 21:15 03/29/17 21:14 MARCY MAJOR Mar 01, 2017 17:03
[2017-03-01 20:00] VITALS: BP 100/48
[2017-03-02] VITALS: BP 97/50
[2017-03-02 04:00] VITALS: BP 101/54
[2017-03-02 08:00] VITALS: BP 101/57
--- NOTE | 2017-03-02 08:59 | Pulmonology Progress Note ---
Assessment/Plan Assessment/Plan Respiratory failure metastatic cancer airway lesion trach GT anemia PLAN care noted respiratory care Ventilatory care as is home meds supportive care suction no wean for now oxygen therapy prognosis poor ENT evaluation if able palliative care recommended impression, plan, and exam edited and reviewed in detail care discussed with RN Subjective ROS Limited/Unobtainable: Yes Allergies: Coded Allergies: PENICILLINS (Verified Allergy, Unknown, 07/31/16) Subjective care noted no distress on the ventilator Objective Last 24 Hour Vital Signs Date Time Temp Pulse Resp B/P (MAP) Pulse Ox O2 Delivery O2 Flow Rate FiO2 03/02/17 08:00 30 03/02/17 08:00 98.6 102 20 101/57 98 Mechanical Ventilator 30 03/02/17 07:12 103 12 30 03/02/17 05:18 105 13 30 03/02/17 04:56 30 03/02/17 04:00 105 03/02/17 04:00 98.2 78 20 101/54 97 Mechanical Ventilator 30 03/02/17 03:06 93 13 30 03/02/17 01:22 91 12 30 03/02/17 00:38 30 03/02/17 00:00 105 03/02/17 00:00 97.9 108 20 97/50 97 Mechanical Ventilator 30 03/01/17 23:10 90 12 30 03/01/17 20:54 84 13 30 03/01/17 20:00 98.4 80 20 100/48 Mechanical Ventilator 30 03/01/17 20:00 30 03/01/17 20:00 80 03/01/17 19:01 80 12 30 03/01/17 16:54 81 12 30 03/01/17 16:00 96.6 77 16 97/48 98 Mechanical Ventilator 30 03/01/17 16:00 76 03/01/17 16:00 30 03/01/17 15:07 77 13 30 03/01/17 13:22 83 13 30 03/01/17 12:00 30 03/01/17 12:00 97.5 84 15 92/47 98 Mechanical Ventilator 30 03/01/17 11:52 80 03/01/17 10:45 80 11 30 03/01/17 09:19 83 12 30 Intake and Output 03/02/17 03/03/17 19:00 07:00 # Bowel Movements 1 Objective WDWN NAD reduced breath sounds bilaterally without rhonchi or wheeze trach [id number] without MRG NABS nontender no HSM GT no CCE nonfocal reduced LOC Current Medications Medications (Trade) Dose Ordered Sig/Josiah Route PRN Reason Start Time Stop Time Status Last Admin Dose Admin Acetaminophen (Tylenol) 650 mg Q4H PRN ORAL Pain Scale (3-5) 02/27/17 21:15 03/29/17 21:14 Amitriptyline HCl (Elavil) 10 mg QHS GT 02/28/17 21:00 03/30/17 20:59 03/01/17 20:12 Docusate Sodium (Colace) 100 mg DAILY ORAL 02/28/17 09:00 03/30/17 08:59 02/28/17 08:23 Furosemide (Lasix) 40 mg DAILY GT 02/28/17 09:00 03/30/17 08:59 03/01/17 09:44 Levetiracetam (Keppra) 500 mg BID ORAL 02/28/17 09:00 03/30/17 08:59 03/01/17 17:19 Levofloxacin (Levaquin) 500 mg DAILY ORAL 02/28/17 09:00 03/07/17 08:59 03/01/17 09:44 Levothyroxine Sodium (Synthroid) 150 mcg DAILY GT 02/28/17 09:00 03/30/17 08:59 03/01/17 09:44 Lorazepam (Ativan) 1 mg THREE TIMES A DAY GT 02/28/17 09:00 03/07/17 08:59 03/01/17 17:18 Midodrine (Pro-Amatine) 10 mg THREE TIMES A DAY GT 02/28/17 09:00 03/30/17 08:59 03/01/17 17:18 Ondansetron HCl (Zofran) 4 mg Q6H PRN GT Nausea & Vomiting 02/27/17 21:15 03/29/17 21:14 MARCY MAJOR Mar 02, 2017 08:59
[2017-03-02] MEDS: Docusate 100mg cap ORAL SCH (09:00)
[2017-03-02] MEDS: Levofloxacin 500mg tab ORAL SCH (09:40)
[2017-03-02] MEDS: LORazepam 1mg tab GT SCH ×3 (09:40→17:46)
[2017-03-02] MEDS: Furosemide 40mg tab GT SCH (09:41)
--- NOTE | 2017-03-02 09:43 | General Progress Note ---
Assessment/Plan Problem List: (1) Seizures ICD Codes: R56.9 - Unspecified convulsions SNOMED: 31435937 (2) Hemorrhage from tracheostomy stoma ICD Codes: J95.01 - Hemorrhage from tracheostomy stoma SNOMED: 64931960 (3) Tongue malignant neoplasm ICD Codes: C02.9 - Malignant neoplasm of tongue, unspecified SNOMED: 263922413 (4) Respiratory failure ICD Codes: J96.90 - Respiratory failure, unspecified, unspecified whether with hypoxia or hypercapnia SNOMED: 409055291 Status: stable, progressing Assessment/Plan monitor for bleeding resp care sz rx gt feeds will d/w son options- ?hospice prn resp rx gentle suctioning left multiple messages with son- no return call yet Subjective ROS Limited/Unobtainable: No Constitutional: Reports: malaise, weakness HEENT: Reports: no symptoms Cardiovascular: Reports: no symptoms Respiratory: Reports: cough Gastrointestinal/Abdominal: Reports: difficulty swallowing Genitourinary: Reports: no symptoms Neurologic/Psychiatric: Reports: pre-existing deficit Endocrine: Reports: no symptoms Hematologic/Lymphatic: Reports: no symptoms Allergies: Coded Allergies: PENICILLINS (Verified Allergy, Unknown, 07/31/16) All Systems: reviewed and negative except above Subjective mild congestion per RN.no more hemoptysis. tolerating feeds. no distress. Objective Last 24 Hour Vital Signs Date Time Temp Pulse Resp B/P (MAP) Pulse Ox O2 Delivery O2 Flow Rate FiO2 03/02/17 09:14 98 12 30 03/02/17 08:00 30 03/02/17 08:00 98.6 102 20 101/57 98 Mechanical Ventilator 30 03/02/17 07:12 103 12 30 03/02/17 05:18 105 13 30 03/02/17 04:56 30 03/02/17 04:00 105 03/02/17 04:00 98.2 78 20 101/54 97 Mechanical Ventilator 30 03/02/17 03:06 93 13 30 03/02/17 01:22 91 12 30 03/02/17 00:38 30 03/02/17 00:00 105 03/02/17 00:00 97.9 108 20 97/50 97 Mechanical Ventilator 30 03/01/17 23:10 90 12 30 03/01/17 20:54 84 13 30 03/01/17 20:00 98.4 80 20 100/48 Mechanical Ventilator 30 03/01/17 20:00 30 03/01/17 20:00 80 03/01/17 19:01 80 12 30 03/01/17 16:54 81 12 30 03/01/17 16:00 96.6 77 16 97/48 98 Mechanical Ventilator 30 03/01/17 16:00 76 03/01/17 16:00 30 03/01/17 15:07 77 13 30 03/01/17 13:22 83 13 30 03/01/17 12:00 30 03/01/17 12:00 97.5 84 15 92/47 98 Mechanical Ventilator 30 03/01/17 11:52 80 03/01/17 10:45 80 11 30 Intake and Output 03/02/17 03/03/17 19:00 07:00 # Bowel Movements 1 Height (Feet): 4 Height (Inches): 9.00 Weight (Pounds): 112 Objective General Appearance: WD/WN, alert Neck: supple Cardiovascular: regular rhythm Respiratory/Chest: chest wall non-tender, rhonchi - bilaterally Abdomen: normal bowel sounds, non tender, soft, no organomegaly Edema: no edema noted Arm (L), no edema noted Arm (R), no edema noted Leg (L), no edema noted Leg (R), no edema noted Pedal (L), no edema noted Pedal (R), no edema noted Generalized CHRISTINA HAMMOND Mar 02, 2017 09:43
[2017-03-02] MEDS ORDERED: Albuterol/Ipratropium 3ml neb HHN PRN (09:45)
[2017-03-02 12:49] VITALS: BP 101/47
--- NOTE | 2017-03-02 15:22 | Cardiology Report ---
APPROVED REPORT EKG Measurement Heart [id number] Normal sinus rhythm Normal ECG
[2017-03-02 16:00] VITALS: BP 116/62
[2017-03-02 20:00] VITALS: BP 108/53
[2017-03-03 00:22] VITALS: BP 110/61
[2017-03-03 04:00] VITALS: BP 94/51
[2017-03-03 08:00] VITALS: BP 98/58
[2017-03-03] MEDS: Docusate 100mg cap ORAL SCH (09:00)
[2017-03-03] MEDS: LORazepam 1mg tab GT SCH ×3 (09:55→17:42)
[2017-03-03] MEDS: Furosemide 40mg tab GT SCH (09:55)
[2017-03-03 12:10] VITALS: BP 94/47
[2017-03-03 16:35] VITALS: BP 93/47
[2017-03-03] MEDS ORDERED: Tubing IV Secondary IV ONE (17:38)
[2017-03-03] MEDS ORDERED: Sterile Water Irrig 1000ml IRRIG ONE (17:38)
--- NOTE | 2017-03-03 19:30 | General Progress Note ---
Assessment/Plan Problem List: (1) Seizures ICD Codes: R56.9 - Unspecified convulsions SNOMED: 03723295 (2) Hemorrhage from tracheostomy stoma ICD Codes: J95.01 - Hemorrhage from tracheostomy stoma SNOMED: 76085873 (3) Tongue malignant neoplasm ICD Codes: C02.9 - Malignant neoplasm of tongue, unspecified SNOMED: 164660042 (4) Respiratory failure ICD Codes: J96.90 - Respiratory failure, unspecified, unspecified whether with hypoxia or hypercapnia SNOMED: 616998741 Status: stable, progressing Assessment/Plan monitor for bleeding resp care sz rx gt feeds will d/w son options- ?hospice prn resp rx gentle suctioning follow up cdiff dc planning if diarrhea better and cdiff negative Subjective ROS Limited/Unobtainable: No Constitutional: Reports: malaise, weakness HEENT: Reports: no symptoms Cardiovascular: Reports: no symptoms Respiratory: Reports: cough Gastrointestinal/Abdominal: Reports: diarrhea, difficulty swallowing Genitourinary: Reports: no symptoms Neurologic/Psychiatric: Reports: pre-existing deficit Endocrine: Reports: no symptoms Hematologic/Lymphatic: Reports: anemia Allergies: Coded Allergies: PENICILLINS (Verified Allergy, Unknown, 07/31/16) All Systems: reviewed and negative except above Subjective mild congestion per RN.no more hemoptysis. tolerating feeds. no distress. + diarrhea per staff. cdiff sent this am. no results back Objective Last 24 Hour Vital Signs Date Time Temp Pulse Resp B/P (MAP) Pulse Ox O2 Delivery O2 Flow Rate FiO2 03/03/17 19:19 104 15 30 03/03/17 17:00 91 13 30 03/03/17 16:35 98.0 90 18 93/47 99 Mechanical Ventilator 30 03/03/17 16:00 30 03/03/17 15:33 90 03/03/17 15:02 90 12 30 03/03/17 13:10 96 13 30 03/03/17 12:10 99.9 96 18 94/47 98 Mechanical Ventilator 30 03/03/17 12:00 30 03/03/17 11:53 94 03/03/17 11:25 97 13 30 03/03/17 08:45 96 12 30 03/03/17 08:12 96 03/03/17 08:00 30 03/03/17 08:00 99.0 101 15 98/58 99 Mechanical Ventilator 30 03/03/17 07:05 97 13 30 03/03/17 05:21 91 12 30 03/03/17 04:00 30 03/03/17 04:00 90 03/03/17 04:00 99.1 95 12 94/51 99 Mechanical Ventilator 30 03/03/17 03:29 90 12 30 03/03/17 00:58 86 12 30 03/03/17 00:22 99.0 82 12 110/61 100 Mechanical Ventilator 30 03/03/17 00:00 82 03/02/17 23:11 80 12 30 03/02/17 21:14 87 13 30 03/02/17 20:00 30 03/02/17 20:00 99.6 86 12 108/53 99 Mechanical Ventilator 30 03/02/17 19:49 81 03/02/17 19:29 80 12 30 Intake and Output 03/03/17 03/04/17 19:00 07:00 Intake Total 560 ml Balance 560 ml Intake Free Water 60 ml Tube Feeding 320 ml Other 180 ml # Voids 3 # Bowel Movements 5 Height (Feet): 4 Height (Inches): 9.00 Weight (Pounds): 112 Objective General Appearance: WD/WN, alert Neck: supple Cardiovascular: regular rhythm Respiratory/Chest: chest wall non-tender, rhonchi - bilaterally Abdomen: normal bowel sounds, non tender, soft, no organomegaly Edema: no edema noted Arm (L), no edema noted Arm (R), no edema noted Leg (L), no edema noted Leg (R), no edema noted Pedal (L), no edema noted Pedal (R), no edema noted Generalized CHRISTINA HAMMOND Mar 03, 2017 19:29
[2017-03-03 20:00] VITALS: BP 104/70
--- NOTE | 2017-03-03 20:31 | Pulmonology Progress Note ---
Assessment/Plan Assessment/Plan Respiratory failure metastatic cancer airway lesion trach GT anemia PLAN care noted respiratory care Ventilatory care as is; no wean home meds supportive care suction as needed no wean for now oxygen therapy prognosis poor ENT evaluation if able palliative care recommended conservative therapy only impression, plan, and exam edited and reviewed in detail care discussed with RN Subjective ROS Limited/Unobtainable: Yes Allergies: Coded Allergies: PENICILLINS (Verified Allergy, Unknown, 07/31/16) Subjective care noted no distress on the ventilator Objective Last 24 Hour Vital Signs Date Time Temp Pulse Resp B/P (MAP) Pulse Ox O2 Delivery O2 Flow Rate FiO2 03/03/17 19:19 104 15 30 03/03/17 17:00 91 13 30 03/03/17 16:35 98.0 90 18 93/47 99 Mechanical Ventilator 30 03/03/17 16:00 30 03/03/17 15:33 90 03/03/17 15:02 90 12 30 03/03/17 13:10 96 13 30 03/03/17 12:10 99.9 96 18 94/47 98 Mechanical Ventilator 30 03/03/17 12:00 30 03/03/17 11:53 94 03/03/17 11:25 97 13 30 03/03/17 08:45 96 12 30 03/03/17 08:12 96 03/03/17 08:00 30 03/03/17 08:00 99.0 101 15 98/58 99 Mechanical Ventilator 30 03/03/17 07:05 97 13 30 03/03/17 05:21 91 12 30 03/03/17 04:00 30 03/03/17 04:00 90 03/03/17 04:00 99.1 95 12 94/51 99 Mechanical Ventilator 30 03/03/17 03:29 90 12 30 03/03/17 00:58 86 12 30 03/03/17 00:22 99.0 82 12 110/61 100 Mechanical Ventilator 30 03/03/17 00:00 82 03/02/17 23:11 80 12 30 03/02/17 21:14 87 13 30 Intake and Output 03/03/17 03/04/17 19:00 07:00 Intake Total 560 ml Balance 560 ml Intake Free Water 60 ml Tube Feeding 320 ml Other 180 ml # Voids 3 # Bowel Movements 5 Objective WDWN NAD reduced breath sounds bilaterally without rhonchi or wheeze trach [id number] without MRG NABS nontender no HSM GT no CCE nonfocal reduced LOC Current Medications Medications (Trade) Dose Ordered Sig/Josiah Route PRN Reason Start Time Stop Time Status Last Admin Dose Admin Acetaminophen (Tylenol) 650 mg Q4H PRN ORAL Pain Scale (3-5) 02/27/17 21:15 03/29/17 21:14 Albuterol/ Ipratropium (DuoNeb 0.5-3(2.5)mg/3ml) 3 ml Q4H PRN HHN Shortness of Breath 03/02/17 09:45 03/07/17 09:44 Amitriptyline HCl (Elavil) 10 mg QHS GT 02/28/17 21:00 03/30/17 20:59 03/03/17 00:25 Docusate Sodium (Colace) 100 mg DAILY ORAL 02/28/17 09:00 03/30/17 08:59 02/28/17 08:23 Furosemide (Lasix) 40 mg DAILY GT 02/28/17 09:00 03/30/17 08:59 03/03/17 09:55 Levetiracetam (Keppra) 500 mg BID ORAL 02/28/17 09:00 03/30/17 08:59 03/03/17 17:42 Levofloxacin (Levaquin) 250 mg Q48H ORAL 03/04/17 09:00 03/07/17 08:59 Levothyroxine Sodium (Synthroid) 150 mcg DAILY GT 02/28/17 09:00 03/30/17 08:59 03/03/17 09:55 Lorazepam (Ativan) 1 mg THREE TIMES A DAY GT 02/28/17 09:00 03/07/17 08:59 03/03/17 17:42 Midodrine (Pro-Amatine) 10 mg THREE TIMES A DAY GT 02/28/17 09:00 03/30/17 08:59 03/03/17 17:42 Ondansetron HCl (Zofran) 4 mg Q6H PRN GT Nausea & Vomiting 02/27/17 21:15 03/29/17 21:14 MARCY MAJOR Mar 03, 2017 20:31
[2017-03-04] VITALS: BP 106/51
[2017-03-04 01:13] VITALS: BP 106/51
[2017-03-04 04:00] VITALS: BP 97/53
[2017-03-04 08:00] VITALS: BP 105/54
[2017-03-04] MEDS: Docusate 100mg cap ORAL SCH (08:55)
[2017-03-04] MEDS ORDERED: levETIRAcetam 500mg/5ml Liquid NG SCH (09:15)
[2017-03-04] MEDS: Furosemide 40mg tab GT SCH (09:28)
--- NOTE | 2017-03-04 10:36 | Pulmonology Progress Note ---
Assessment/Plan Assessment/Plan Respiratory failure metastatic cancer airway lesion trach GT anemia diarrhea PLAN care noted respiratory care Ventilatory care as is; no wean home meds supportive care suction as needed no wean for now oxygen therapy prognosis poor agree with hospice if son agrees palliative care recommended conservative therapy only impression, plan, and exam edited and reviewed in detail care discussed with RN Subjective ROS Limited/Unobtainable: Yes Allergies: Coded Allergies: PENICILLINS (Verified Allergy, Unknown, 07/31/16) Subjective care noted no distress some diarrhea on the ventilator Objective Last 24 Hour Vital Signs Date Time Temp Pulse Resp B/P (MAP) Pulse Ox O2 Delivery O2 Flow Rate FiO2 03/04/17 08:45 88 12 30 03/04/17 08:00 88 03/04/17 08:00 30 03/04/17 08:00 97.9 87 12 105/54 100 Mechanical Ventilator 30 03/04/17 06:55 91 12 30 03/04/17 05:06 89 12 30 03/04/17 04:00 98.1 88 12 97/53 100 Mechanical Ventilator 30 03/04/17 04:00 30 03/04/17 03:59 91 03/04/17 03:51 90 12 30 03/04/17 01:13 87 12 30 03/04/17 00:00 94 03/04/17 00:00 100.0 79 12 106/51 99 Mechanical Ventilator 30 03/04/17 00:00 30 03/03/17 23:19 93 12 30 03/03/17 21:28 90 12 30 03/03/17 20:00 99.4 97 16 104/70 95 Mechanical Ventilator 30 03/03/17 20:00 30 03/03/17 19:19 104 15 30 03/03/17 19:03 102 03/03/17 17:00 91 13 30 03/03/17 16:35 98.0 90 18 93/47 99 Mechanical Ventilator 30 03/03/17 16:00 30 03/03/17 15:33 90 03/03/17 15:02 90 12 30 03/03/17 13:10 96 13 30 03/03/17 12:10 99.9 96 18 94/47 98 Mechanical Ventilator 30 03/03/17 12:00 30 03/03/17 11:53 94 03/03/17 11:25 97 13 30 Intake and Output 03/04/17 03/05/17 19:00 07:00 # Bowel Movements 1 Objective WDWN NAD reduced breath sounds bilaterally without rhonchi or wheeze trach [id number] without MRG NABS nontender no HSM GT no CCE nonfocal reduced LOC Microbiology Date/Time Source Procedure Growth Status 03/02/17 23:50 Stool Clostridium difficile Toxin Assay - Final Complete Current Medications Medications (Trade) Dose Ordered Sig/Josiah Route PRN Reason Start Time Stop Time Status Last Admin Dose Admin Acetaminophen (Tylenol) 650 mg Q4H PRN ORAL Pain Scale (3-5) 02/27/17 21:15 03/29/17 21:14 Albuterol/ Ipratropium (DuoNeb 0.5-3(2.5)mg/3ml) 3 ml Q4H PRN HHN Shortness of Breath 03/02/17 09:45 03/07/17 09:44 Amitriptyline HCl (Elavil) 10 mg QHS GT 02/28/17 21:00 03/30/17 20:59 03/03/17 21:50 Docusate Sodium (Colace) 100 mg DAILY ORAL 02/28/17 09:00 03/30/17 08:59 02/28/17 08:23 Furosemide (Lasix) 40 mg DAILY GT 02/28/17 09:00 03/30/17 08:59 03/04/17 09:28 Levetiracetam (Keppra) 500 mg Q12HR NG 03/04/17 09:15 04/03/17 09:14 03/04/17 09:29 Levofloxacin (Levaquin) 250 mg Q48H ORAL 03/04/17 09:00 03/07/17 08:59 03/04/17 09:29 Levothyroxine Sodium (Synthroid) 150 mcg DAILY GT 02/28/17 09:00 03/30/17 08:59 03/04/17 09:29 Midodrine (Pro-Amatine) 10 mg THREE TIMES A DAY GT 02/28/17 09:00 03/30/17 08:59 03/04/17 09:29 Ondansetron HCl (Zofran) 4 mg Q6H PRN GT Nausea & Vomiting 02/27/17 21:15 03/29/17 21:14 MARCY MAJOR Mar 04, 2017:36
[2017-03-04 12:00] VITALS: BP 104/64
[2017-03-04 16:00] VITALS: BP 102/56
--- NOTE | 2017-03-05 01:30 | Discharge Summary ---
DATE OF ADMISSION: 02/27/2017 DATE OF DISCHARGE: 03/04/2017 ADMISSION DIAGNOSES: 1. Hemoptysis. 2. Metastatic carcinoma with lung metastasis. 3. Chronic respiratory failure. 4. Seizure disorder. 5. Anemia. 6. Dysphagia, status post G-tube. DISCHARGE DIAGNOSES: 1. Hemoptysis. 2. Metastatic carcinoma with lung metastasis. 3. Chronic respiratory failure. 4. Seizure disorder. 5. Anemia. 6. Dysphagia, status post G-tube. Hospital Course: The patient is a pleasant female, who was brought in with complaints of hemoptysis. Family had noted blood in the suctioning tubing. She was admitted. Chest x-ray was clear. She had no further episodes of hemoptysis while inhouse. The patient's hemoglobin remained stable. She will be discharged home. It will be recommended that she see the ENT if she has anymore recurrent hemoptysis. I left several messages on the patient's son's answer machine but have not returned a call back regarding the patient's overall poor prognosis. Discharge Medications: Please see discharge medication list for discharge medications. DIET: G-tube feeding. ACTIVITIES: Ad-daren. Rico Madrigal M.D. DR: LILIANA JOB#: [id number] CC:
== END 2017-03-04 17:47 | disposition home or self-care (01) | DRG 207 ==
LOC: EMR 17:06 → 2W 17:10 → EDBEDREQ 17:34
PROC: 5A1955Z Respiratory Ventilation, Greater than 96 Consecutive Hours (ICD-10-PCS; principal; 2017-02-27)
DX: J95.01 Hemorrhage from tracheostomy stoma (principal); C78.00 Secondary malignant neoplasm of unspecified lung; C02.9 Malignant neoplasm of tongue, unspecified; J96.10 Chronic respiratory failure, unspecified whether with hypoxia or hypercapnia; D64.9 Anemia, unspecified; Z43.0 Encounter for attention to tracheostomy; Z43.1 Encounter for attention to gastrostomy; Z88.0 Allergy status to penicillin; G40.909 Epilepsy, unspecified, not intractable, without status epilepticus; R19.7 Diarrhea, unspecified
CPT/HCPCS: 36415; 71010; 80053; 80299; 82550; 82553; 83880; 84484; 85025; 85610; 85730; 87324; 93005; 94002; 94003; 99285

== ENCOUNTER 2017-03-08 15:15 | Inpatient (IN) | payer MEDICARE, BC ==
[~2017-03-08] VITALS: Ht 154.9 cm; Wt 51.3 kg
[2017-03-08 15:32] VITALS: BP 95/54
[2017-03-08] MEDS ORDERED: Sodium Chloride 500ML 500 ML IV ONE (15:38)
[2017-03-08 16:00] VITALS: BP 108/60
--- NOTE | 2017-03-08 16:23 | Diagnostic Imaging Report ---
Indication: Dyspnea Comparison: 02/27/70 A single view chest radiograph was obtained. Findings: Persistent somewhat nodular appearing fairly large density projected over the left lower lobe. There is also evidence of a left pleural effusion or pleural thickening. A tracheostomy noted. Heart size remains normal. Bones are osteopenic. Surgical clips noted in the upper abdomen. Impression: Chronic left basilar consolidation versus mass unchanged. Small effusion versus pleural thickening. No radiographic change compared to a study
[2017-03-08 16:35] VITALS: BP 109/76
[2017-03-08 16:43] LABS: BASOPHILS % (AUTO) 1.5 % (0.0-2.0); EOSINOPHILS % (AUTO) 2.7 % (0.0-3.0); LYMPHOCYTES % (AUTO) 15.9 % (20.0-45.0); MEAN CORPUSCULAR HEMOGLOBIN 28.9 PG (27.0-31.0); MEAN CORPUSCULAR HGB CONC 31.7 G/DL (32.0-36.0); MEAN CORPUSCULAR VOLUME 91 FL (80-99); MEAN PLATELET VOLUME 6.4 FL (6.5-10.1); PLATELET COUNT 290 K/UL (150-450); RED BLOOD COUNT 3.77 M/UL (4.20-5.40); RED CELL DISTRIBUTION WIDTH 11.6 % (11.6-14.8); WHITE BLOOD COUNT 11.7 K/UL (4.8-10.8)
[2017-03-08 16:52] LABS: PROTHROMBIN TIME 10.2 SEC (9.30-11.50)
[2017-03-08 16:57] LABS: TROPONIN I < 0.30 ng/mL (<=0.30)
[2017-03-08 17:09] LABS: ALANINE AMINOTRANSFERASE 9 U/L (3-33); ALBUMIN/GLOBULIN RATIO 0.9 (1.0-2.7); ANION GAP 13 (5-15); ASPARTATE AMINO TRANSFERASE 25 U/L (5-40); CALCIUM 9.9 mg/dL (8.6-10.2); CARBON DIOXIDE 32 mEQ/L (20-30); CHLORIDE 89 mEQ/L (98-107); CREATININE 0.8 mg/dL (0.5-0.9); HEMOLYSIS 3; POTASSIUM 3.8 mEQ/L (3.4-4.9); SODIUM 134 mEQ/L (135-145); TOTAL PROTEIN 7.8 g/dL (6.6-8.7)
[2017-03-08 17:10] VITALS: BP 103/59
[2017-03-08 17:20] LABS: CKMB < 1.5 ng/mL (< 3.8)
[2017-03-08] MEDS ORDERED: Acetaminophen 650mg/20.3ml GT PRN (17:30)
[2017-03-08] MEDS ORDERED: LORazepam 1mg tab GT SCH (18:00)
[2017-03-08] MEDS ORDERED: MULTI-DELYN237 ML GT (18:08)
[2017-03-08 18:19] LABS: APPEARANCE,URINE CLEAR; KETONES,URINE NEGATIVE (NEGATIVE); LEUKOCYTE ESTERASE ,URINE NEGATIVE (NEGATIVE); NITRITE,URINE NEGATIVE (NEGATIVE); PH,URINE 6.5 (4.5-8.0); PROTEIN,URINE NEGATIVE (NEGATIVE); UROBILINOGEN,URINE NORMAL MG/DL (0.0-1.0)
[2017-03-08] MEDS: Albuterol/Ipratropium 3ml neb HHN SCH (19:16)
[2017-03-08 20:00] VITALS: BP 117/60
[2017-03-08] MEDS: levETIRAcetam 500mg/5ml Liquid GT SCH (20:29)
[2017-03-08] MEDS: Midodrine 10mg tab GT SCH (20:29)
--- NOTE | 2017-03-08 22:25 | Emergency Room Report ---
History of Present Illness General Chief Complaint: General Complaint Source: Family Member, Caregiver Present Illness HPI 81-year-old female presents to ED for evaluation. Patient has history of trach due to lung cancer. Family states that for last day patient has been coughing up blood from the trach. Family states that this is happened previously and patient was recently admitted for this. Patient is also having diarrhea. Started while patient was admitted. Patient has C. difficile testing which was negative. No active bleeding at this time. Denies fevers or chills. Denies chest pain or shortness of breath. No other aggravating relieving factors. Denies any other associated symptoms Allergies: Coded Allergies: PENICILLINS (Verified Allergy, Unknown, 07/31/16) Patient History Past Medical History: COPD, other - lung cancer Past Surgical History: none Pertinent Family History: none Social History: Denies: smoking, alcohol use, drug use Now: No Immunizations: UTD Reviewed Nursing Documentation: PMH: Agreed, PSxH: Agreed Nursing Documentation-PMH Hx Cardiac Problems: Yes Hx COPD: Yes Hx Cancer: Yes - mouth Hx Gastrointestinal Problems: Yes Hx Neurological Problems: Yes Hx Seizures: Yes Hx Speech Problem: Yes - trach Hx Weakness: Yes Review of Systems All Other Systems: negative except mentioned in HPI Physical Exam Vital Signs Date Time Temp Pulse Resp B/P (MAP) Pulse Ox O2 Delivery O2 Flow Rate FiO2 03/08/17 15:22 78 20 99 Room Air 03/08/17 15:32 98.0 95/54 03/08/17 15:40 5.0 40 Sp02 EP Interpretation: reviewed, normal General Appearance: no apparent distress, alert, GCS 15, non-toxic Head: normocephalic, atraumatic Eyes: bilateral eye normal inspection, bilateral eye PERRL ENT: hearing grossly normal, normal pharynx, no angioedema, normal voice Neck: full range of motion, supple/symm/no masses, tracheotomy Respiratory: chest non-tender, lungs clear, normal breath sounds, speaking full sentences Cardiovascular #1: regular rate, rhythm, no edema Cardiovascular #2: 2+ carotid (R), 2+ carotid (L), 2+ radial (R), 2+ radial (L) , 2+ dorsalis pedis (R), 2+ dorsalis pedis (L) Gastrointestinal: normal bowel sounds, non tender, soft, non-distended, no guarding, no rebound Rectal: deferred Genitourinary: normal inspection, no CVA tenderness Musculoskeletal: back normal, gait/station normal, normal range of motion, non- tender Neurologic: alert, oriented x3, responsive, motor strength/tone normal, sensory intact, speech normal Psychiatric: judgement/insight normal, memory normal, mood/affect normal, no suicidal/homicidal ideation Reflexes: 3+ bicep (R), 3+ bicep (L), 3+ tricep (R), 3+ tricep (L), 3+ knee (R) , 3+ knee (L) Skin: normal color, no rash, warm/dry, well hydrated Lymphatic: no adenopathy Medical Decision Making Diagnostic Impression: Primary Impression: Hemorrhage from tracheostomy stoma Additional Impression: Colitis ER Course Hospital Course 81-year-old female presents to ED with hemoptysis from tracheostomy. Diarrhea Differential diagnoses include: Pneumonia, CHF exacerbation, pneumothorax, fluid overload Clinical course Patient placed on stretcher. On public health microbiologist. Patient connected to a ventilator. After initial history and physical, I ordered labs, IV fluids, EKG , chest x-ray, blood cultures, UA. Labs -minimal leukocytosis, hemoglobin/hematocrit stable, electrolytes ok CXR - L mass vs consolidation EKG - NSR, no acute ischemic changes interpreted by me antibiotic given. IV fluids given. No active hemoptysis here Case discussed with Dr. Hammond and he agreed to the patient to his service for further care and support I feel this is a highly complex case requiring extensive working including EKG/ Rhythm strip, Xray/CT/US, Blood/urine lab work, repeat exams while in ED, and administration of strong opiates/narcotics for pain control, admission to hospital or close patient follow up. Diagnosis - hemorrhage from tracheostomy stoma, colitis Patient admitted to [facility] in seriuos condition Labs Test 03/08/17 16:18 03/08/17 17:30 White Blood Count 11.7 K/UL (4.8-10.8) Red Blood Count 3.77 M/UL (4.20-5.40) Hemoglobin 10.9 G/DL (12.0-16.0) Hematocrit 34.4 % (37.0-47.0) Mean Corpuscular Volume 91 FL (80-99) Mean Corpuscular Hemoglobin 28.9 PG (27.0-31.0) Mean Corpuscular Hemoglobin Concent 31.7 G/DL (32.0-36.0) Red Cell Distribution Width 11.6 % (11.6-14.8) Platelet Count 290 K/UL (150-450) Mean Platelet Volume 6.4 FL (6.5-10.1) Neutrophils (%) (Auto) 71.0 % (45.0-75.0) Lymphocytes (%) (Auto) 15.9 % (20.0-45.0) Monocytes (%) (Auto) 9.0 % (1.0-10.0) Eosinophils (%) (Auto) 2.7 % (0.0-3.0) Basophils (%) (Auto) 1.5 % (0.0-2.0) Prothrombin Time 10.2 SEC (9.30-11.50) Prothromb Time International Ratio 1.0 (0.9-1.1) Activated Partial Thromboplast Time 30 SEC (23-33) Sodium Level 134 mEQ/L (135-145) Potassium Level 3.8 mEQ/L (3.4-4.9) Chloride Level 89 mEQ/L (98-107) Carbon Dioxide Level 32 mEQ/L (20-30) Anion Gap 13 (5-15) Blood Urea Nitrogen 26 mg/dL (7-23) Creatinine 0.8 mg/dL (0.5-0.9) Estimat Glomerular Filtration Rate mL/min (>60) Glucose Level 114 mg/dL (74-106) Calcium Level 9.9 mg/dL (8.6-10.2) Total Bilirubin 0.3 mg/dL (0.0-1.2) Aspartate Amino Transf (AST/SGOT) 25 U/L (5-40) Alanine Aminotransferase (ALT/SGPT) 9 U/L (3-33) Alkaline Phosphatase 74 U/L (35-104) Total Creatine Kinase 47 U/L (26-140) Creatine Kinase MB < 1.5 ng/mL (< 3.8) Creatine Kinase MB Relative Index Troponin I < 0.30 ng/mL (<=0.30) Pro-B-Type Natriuretic Peptide 141 pg/mL (0-450) Total Protein 7.8 g/dL (6.6-8.7) Albumin 3.8 g/dL (3.5-5.2) Globulin 4.0 g/dL Albumin/Globulin Ratio 0.9 (1.0-2.7) Urine Color Yellow Urine Appearance Clear Urine pH 6.5 (4.5-8.0) Urine Specific [place] 1.010 (1.005-1.035) Urine Protein Negative (NEGATIVE) Urine Glucose (UA) Negative (NEGATIVE) Urine Ketones Negative (NEGATIVE) Urine Occult Blood Negative (NEGATIVE) Urine Nitrite Negative (NEGATIVE) Urine Bilirubin Negative (NEGATIVE) Urine Urobilinogen Normal MG/DL (0.0-1.0) Urine Leukocyte Esterase Negative (NEGATIVE) EKG Diagnostic Results Rate: normal Rhythm: NSR ST Segments: no acute changes ASA given to the pt in ED: No Rhythm Strip Diag. Results EP Interpretation: yes Rhythm: NSR, no PVC's, no ectopy Chest X-Ray Diagnostic Results Chest X-Ray Diagnostic Results : Chest X-Ray Ordered: Yes # of Views/Limited/Complete: 1 View Indication: Shortness of Breath EP Interpretation: Yes Interpretation: no pneumothorax, no acute cardiopulmonary disease, other - L consolidation vs mass Impression: Other - pneumonia vs mass Electronically Signed by: Electronically signed by Kristofer Castaneda MD Last Vital Signs Date Time Temp Pulse Resp B/P (MAP) Pulse Ox O2 Delivery O2 Flow Rate FiO2 03/08/17 20:37 90 21 40 03/08/17 20:00 97.5 117/60 100 Mechanical Ventilator 03/08/17 17:10 5.0 Status: improved Disposition: ADMITTED INPATIENT Condition: Serious Referrals: CHRISTINA HAMMOND (PCP) KRISTOFER CASTANEDA M.D. Mar 08, 2017 22:25
[2017-03-09 00:09] VITALS: BP 117/70
[2017-03-09] MEDS: Albuterol/Ipratropium 3ml neb HHN SCH ×4 (00:37→19:48)
[2017-03-09 04:00] VITALS: BP 121/62
[2017-03-09 05:42] LABS: EOSINOPHILS % (AUTO) 1.6 % (0.0-3.0); LYMPHOCYTES % (AUTO) 13.6 % (20.0-45.0); MEAN CORPUSCULAR HEMOGLOBIN 29.5 PG (27.0-31.0); MEAN CORPUSCULAR HGB CONC 32.5 G/DL (32.0-36.0); MEAN CORPUSCULAR VOLUME 91 FL (80-99); MEAN PLATELET VOLUME 6.1 FL (6.5-10.1); MONOCYTES % (AUTO) 12.3 % (1.0-10.0); NEUTROPHILS % (AUTO) 71.6 % (45.0-75.0); PLATELET COUNT 314 K/UL (150-450); RED BLOOD COUNT 3.56 M/UL (4.20-5.40); RED CELL DISTRIBUTION WIDTH 11.8 % (11.6-14.8); WHITE BLOOD COUNT 11.6 K/UL (4.8-10.8)
[2017-03-09 07:09] LABS: ALANINE AMINOTRANSFERASE 8 U/L (3-33); ALBUMIN/GLOBULIN RATIO 0.9 (1.0-2.7); ANION GAP 11 (5-15); ASPARTATE AMINO TRANSFERASE 26 U/L (5-40); CALCIUM 9.7 mg/dL (8.6-10.2); CARBON DIOXIDE 33 mEQ/L (20-30); CHLORIDE 96 mEQ/L (98-107); CREATININE 0.8 mg/dL (0.5-0.9); HEMOLYSIS 11; POTASSIUM 3.8 mEQ/L (3.4-4.9); SODIUM 140 mEQ/L (135-145); TOTAL PROTEIN 7.3 g/dL (6.6-8.7)
[2017-03-09 08:00] VITALS: BP 98/48
[2017-03-09] MEDS: levETIRAcetam 500mg/5ml Liquid GT SCH ×2 (08:55→20:56)
[2017-03-09] MEDS: Digoxin 0.125mg tab GT SCH (08:56)
[2017-03-09] MEDS: Midodrine 10mg tab GT SCH ×3 (08:56→18:05)
[2017-03-09] MEDS: Multivitamin w/Minerals tab ORAL SCH (08:58)
[2017-03-09] MEDS ORDERED: Multivitamins W/Minerals 15 ML UDC GT SCH (09:00)
[2017-03-09] MEDS ORDERED: Furosemide 40mg tab GT SCH (09:00)
[2017-03-09] MEDS ORDERED: Docusate 100mg/10ml Liq GT SCH (09:00)
[2017-03-09 12:00] VITALS: BP 134/70
--- NOTE | 2017-03-09 13:41 | General Progress Note ---
Progress Note Progress Note ENT note Pt seen and eval. No active bleeding since last night Note dictated- Either over aggressive suctioning or from lung itself. Message left for Dr. Valle. JEAN TALLEY Mar 09, 2017 13:41
[2017-03-09] MEDS: Cefepime HCl 1 GM in D5W 55 ML IVPB SCH (13:48)
[2017-03-09 16:00] VITALS: BP 114/56
--- NOTE | 2017-03-09 17:15 | History and Physical Report ---
DATE OF ADMISSION: 03/08/2017 CHIEF COMPLAINT: Hemoptysis. History Of Present Illness: The patient is an unfortunate 81-year-old female. She has a history of head and neck cancer, status post surgery and radiation. She has a history of chronic respiratory failure with a trach as well as a G-tube. He has a history of recurrence with metastatic lung lesions. She was brought to the emergency room after son noticed copious hemoptysis. According to the patient's son, she noted blood in the suction catheter. When he deep suctioned her though, there was a large amount of blood that drained. The patient was in no distress, but in light of the bleeding, she is now admitted for further evaluation and care. PAST MEDICAL HISTORY: As above. PAST SURGICAL HISTORY: As above. CURRENT MEDICATIONS: Reconciled and reviewed. ALLERGIES: Penicillin. FAMILY HISTORY: Noncontributory. SOCIAL HISTORY: Negative for tobacco, ethanol, or drugs. Review Of Systems: From the patient is unobtainable as she is confused and is on a ventilator. PHYSICAL EXAMINATION: Vital Signs: Temperature 98.4 degrees, pulse 84, respirations 18, and blood pressure 121/62. General: The patient is a well-developed, thin female, in no apparent distress. She is arousable and is able to follow some simple commands. NECK: Supple. Trach site is clean. HEART: Regular rate and rhythm. LUNGS: Significant for few scattered rhonchi. ABDOMEN: Soft, nontender, and nondistended. EXTREMITIES: Without clubbing, cyanosis, or edema. Laboratory Data: Labs show white count of 12, hemoglobin 11, hematocrit 34, and platelet count of 290,000. Sodium 134, potassium 3.8, BUN 26, and creatinine was 0.8. Troponin was negative. Coags are normal. UA was clear. Chest x-ray showed chronic left basal consolidation versus mass. Assessment And Plan: This is a pleasant female with a history of chronic respiratory failure, head and neck cancer with lung metastasis, admitted with hemoptysis, suspect secondary to tumor. So, the plan is ENT and Pulmonary consultations, cautious suction, and respiratory treatments. Continue vent support. Continue G-tube feeds. DVT and stress ulcer prophylaxes. Plan of care has been discussed with the patient's son, Zbigniew. Rico Madrigal M.D. DR: LILIANA JOB#: [id number] CC:
[2017-03-09 20:00] VITALS: BP 111/69
--- NOTE | 2017-03-09 23:15 | Procedure Note ---
SURGEON: Iban Carmona M.D. PREOPERATIVE DIAGNOSIS: Hemoptysis. POSTOPERATIVE DIAGNOSIS: Appears controlled and stopped. PROCEDURE: 1. Fiberoptic bronchoscopy. 2. Fiberoptic laryngoscopy. Indication: The patient has been coughing up blood through her trach site. Findings: Airway with normal as far as active bleeding below the trach site, but there was some irritation about an inch beyond the distal opening of the tracheostomy tube on the right side. The larynx looked perfectly normal. Technique: The patient was prepped and draped in usual manner. Time-out was performed. All concurred as to the procedure. Fiberoptic scope was placed through the tracheostomy stoma and then pulled back out. The same was done through the mouth to look at the larynx. Scope was then pulled out. Sponge and needle count was correct. ESTIMATED BLOOD LOSS: Zero. COUNTS: None. DRAINS: None. Iban Carmona M.D. DR: TERI JOB#: [id number] CC:
[2017-03-10] VITALS: BP 101/54
--- NOTE | 2017-03-10 | Consultation ---
DATE OF CONSULTATION: 03/09/2017 REQUESTING PHYSICIAN: Rico Madrigal M.D. CONSULTING PHYSICIAN: Iban Carmona M.D. Indication For Consultation: This is a 81-year-old female, known to me who was admitted a few days ago for hemoptysis. She is home care for her trach. She has end-stage lung carcinoma, which remains unchanged on chest x-ray taken just a few days ago. Medications: Tylenol, albuterol, Elavil, cefepime, digoxin, Keppra, Synthroid, midodrine, multivitamins, and Zofran. PHYSICAL EXAMINATION: General: She is lying in bed, awake and alert, and stable with a respirator attached. No blood coming out through the trach. I did suction it. There was some old dried blood, but nothing bright red. I then passed the scope through her trach, so I could visualize the kerrie. There was no evidence of bleeding, although there were some areas that looked irritated. Scope was then removed. I then looked in the mouth above to the larynx and this was all normal. Assessment: I did speak with the patient about how deeply suctioning was done at home. She said her son goes very deep. Nurse was in the room. We discussed only going no more than two inches. Nurse informed me that the patient has not had any bleeding today according to the night staff and her experience. Plan: Less aggressive suctioning and please reconsult me as needed. In addition, obviously followup on her lung cancer to see if that is where the blood may be coming from. Iban Carmona M.D. DR: MARY JOB#: [id number] CC:
[2017-03-10] MEDS: Albuterol/Ipratropium 3ml neb HHN SCH ×5 (01:00→19:03)
--- NOTE | 2017-03-10 07:31 | General Progress Note ---
Assessment/Plan Problem List: (1) Sepsis ICD Codes: A41.9 - Sepsis, unspecified organism SNOMED: 53759550 (2) Seizures ICD Codes: R56.9 - Unspecified convulsions SNOMED: 17482610 (3) Hemorrhage from tracheostomy stoma ICD Codes: J95.01 - Hemorrhage from tracheostomy stoma SNOMED: 80990394 (4) Tongue malignant neoplasm ICD Codes: C02.9 - Malignant neoplasm of tongue, unspecified SNOMED: 061780880 (5) Lung nodule seen on imaging study ICD Codes: R91.1 - Solitary pulmonary nodule SNOMED: 552069854 (6) Respiratory failure ICD Codes: J96.90 - Respiratory failure, unspecified, unspecified whether with hypoxia or hypercapnia SNOMED: 491827538 Status: stable Assessment/Plan resp care monitor for hemoptysis gt feeds skin care pulm follow up ?bronch Subjective ROS Limited/Unobtainable: No Constitutional: Reports: malaise, weakness HEENT: Reports: no symptoms Cardiovascular: Reports: no symptoms Respiratory: Reports: cough, sputum Gastrointestinal/Abdominal: Reports: difficulty swallowing Genitourinary: Reports: no symptoms Neurologic/Psychiatric: Reports: pre-existing deficit Endocrine: Reports: no symptoms Hematologic/Lymphatic: Reports: no symptoms Allergies: Coded Allergies: PENICILLINS (Verified Allergy, Unknown, 07/31/16) All Systems: reviewed and negative except above Subjective no events. ent noted. on the vent. +hemoptysis Objective Last 24 Hour Vital Signs Date Time Temp Pulse Resp B/P (MAP) Pulse Ox O2 Delivery O2 Flow Rate FiO2 03/10/17 07:00 82 14 100 Mechanical Ventilator 40 03/10/17 07:00 40 03/10/17 07:00 82 14 Mechanical Ventilator 40 03/10/17 06:59 82 12 40 03/10/17 05:20 74 12 40 03/10/17 04:27 79 03/10/17 04:00 40 03/10/17 02:41 80 16 40 03/10/17 01:25 Mechanical Ventilator 40 03/10/17 01:25 Mechanical Ventilator 40 03/10/17 01:20 78 16 40 03/10/17 00:00 40 03/10/17 00:00 98.1 83 20 101/54 100 Mechanical Ventilator 40 03/09/17 23:30 83 03/09/17 22:42 77 16 40 10/6/17 21:15 90 16 40 03/09/17 20:00 40 03/09/17 20:00 98.6 78 18 111/69 100 Mechanical Ventilator 40 03/09/17 19:53 77 03/09/17 19:49 76 14 100 Mechanical Ventilator 40 03/09/17 19:42 78 14 Mechanical Ventilator 40 03/09/17 19:42 77 15 40 03/09/17 19:42 74 14 99 Mechanical Ventilator 40 03/09/17 19:42 40 03/09/17 17:16 79 17 40 03/09/17 16:00 97.4 80 15 114/56 100 Mechanical Ventilator 40 03/09/17 16:00 40 03/09/17 15:39 77 03/09/17 14:54 78 16 40 03/09/17 12:42 81 14 100 Mechanical Ventilator 40 03/09/17 12:32 40 03/09/17 12:32 81 12 99 Mechanical Ventilator 15.0 40 03/09/17 12:31 82 12 40 03/09/17 12:00 40 03/09/17 12:00 99.5 88 16 134/70 100 Mechanical Ventilator 40 03/09/17 12:00 83 03/09/17 10:52 81 15 40 03/09/17 08:56 80 03/09/17 08:45 77 14 40 03/09/17 08:00 40 03/09/17 08:00 98.2 83 15 98/48 100 Mechanical Ventilator 40 03/09/17 07:37 84 Height (Feet): 5 Height (Inches): 1.00 Weight (Pounds): 113 Objective General: The patient is a well-developed, thin female, in no apparent distress. She is arousable and is able to follow some simple commands. NECK: Supple. Trach site is clean. HEART: Regular rate and rhythm. LUNGS: Significant for few scattered rhonchi. ABDOMEN: Soft, nontender, and nondistended. EXTREMITIES: Without clubbing, cyanosis, or edema. CHRISTINA HAMMOND Mar 10, 2017 07:31
[2017-03-10 08:00] VITALS: BP 95/52
[2017-03-10] MEDS: levETIRAcetam 500mg/5ml Liquid GT SCH ×2 (09:07→20:53)
[2017-03-10] MEDS: Digoxin 0.125mg tab GT SCH (09:07)
[2017-03-10] MEDS: Midodrine 10mg tab GT SCH ×3 (09:07→18:00)
[2017-03-10] MEDS: Multivitamin w/Minerals tab ORAL SCH (09:08)
[2017-03-10 12:00] VITALS: BP 93/55
--- NOTE | 2017-03-10 13:22 | Consultation ---
Consult Note Consult Note CHIEF COMPLAINT: Hemoptysis. History Of Present Illness: unfortunate 81-year-old female. She has a history of head and neck cancer, status post surgery and radiation and has several admissions for hemoptysis. She has a history of chronic respiratory failure with a trach as well as a G-tube and has been at home with her son. She has a history of recurrence with metastatic lung lesions. She was brought to the emergency room after son noticed copious hemoptysis once againg. When he deep suctioned her though the tracheostomy, there was a large amount of blood that was suctioned. The patient was in no distress, but in light of the bleeding, she is now admitted for further evaluation and care. Patient underwent laryngoscopy by ENT and findings were negative PAST MEDICAL HISTORY: Respiratory failure, trach, GT, hemoptysis, Head and neck cancer with lung mets, ALOC PAST SURGICAL HISTORY: Trach, GT CURRENT MEDICATIONS: Reconciled ALLERGIES: Penicillin. FAMILY HISTORY: Noncontributory to the above. SOCIAL HISTORY: Negative for tobacco, ethanol, or drugs. currently at home with her son Review Of Systems: unable PHYSICAL EXAMINATION: Vital Signs: Temperature 98.2 degrees, pulse 74, respirations 14, and blood pressure 118/64. General: WDWN female arouseable NECK: Supple. Trach site is clean. carotids 2+ HEART: Regular rate and rhythm. without MRG LUNGS: moderate breath sounds with occasional rhonchi. ABDOMEN: Soft, nontender, and nondistended. GT no HSM EXTREMITIES: Without clubbing, cyanosis, or edema. neuro nonfocal but weak Labs Test 03/08/17 16:18 03/08/17 17:30 03/09/17 03:30 White Blood Count 11.7 K/UL (4.8-10.8) 11.6 K/UL (4.8-10.8) Red Blood Count 3.77 M/UL (4.20-5.40) 3.56 M/UL (4.20-5.40) Hemoglobin 10.9 G/DL (12.0-16.0) 10.5 G/DL (12.0-16.0) Hematocrit 34.4 % (37.0-47.0) 32.3 % (37.0-47.0) Mean Corpuscular Volume 91 FL (80-99) 91 FL (80-99) Mean Corpuscular Hemoglobin 28.9 PG (27.0-31.0) 29.5 PG (27.0-31.0) Mean Corpuscular Hemoglobin Concent 31.7 G/DL (32.0-36.0) 32.5 G/DL (32.0-36.0) Red Cell Distribution Width 11.6 % (11.6-14.8) 11.8 % (11.6-14.8) Platelet Count 290 K/UL (150-450) 314 K/UL (150-450) Mean Platelet Volume 6.4 FL (6.5-10.1) 6.1 FL (6.5-10.1) Neutrophils (%) (Auto) 71.0 % (45.0-75.0) 71.6 % (45.0-75.0) Lymphocytes (%) (Auto) 15.9 % (20.0-45.0) 13.6 % (20.0-45.0) Monocytes (%) (Auto) 9.0 % (1.0-10.0) 12.3 % (1.0-10.0) Eosinophils (%) (Auto) 2.7 % (0.0-3.0) 1.6 % (0.0-3.0) Basophils (%) (Auto) 1.5 % (0.0-2.0) 1.0 % (0.0-2.0) Prothrombin Time 10.2 SEC (9.30-11.50) Prothromb Time International Ratio 1.0 (0.9-1.1) Activated Partial Thromboplast Time 30 SEC (23-33) Sodium Level 134 mEQ/L (135-145) 140 mEQ/L (135-145) Potassium Level 3.8 mEQ/L (3.4-4.9) 3.8 mEQ/L (3.4-4.9) Chloride Level 89 mEQ/L (98-107) 96 mEQ/L (98-107) Carbon Dioxide Level 32 mEQ/L (20-30) 33 mEQ/L (20-30) Anion Gap 13 (5-15) 11 (5-15) Blood Urea Nitrogen 26 mg/dL (7-23) 23 mg/dL (7-23) Creatinine 0.8 mg/dL (0.5-0.9) 0.8 mg/dL (0.5-0.9) Estimat Glomerular Filtration Rate mL/min (>60) mL/min (>60) Glucose Level 114 mg/dL (74-106) 102 mg/dL (74-106) Calcium Level 9.9 mg/dL (8.6-10.2) 9.7 mg/dL (8.6-10.2) Total Bilirubin 0.3 mg/dL (0.0-1.2) 0.2 mg/dL (0.0-1.2) Aspartate Amino Transf (AST/SGOT) 25 U/L (5-40) 26 U/L (5-40) Alanine Aminotransferase (ALT/SGPT) 9 U/L (3-33) 8 U/L (3-33) Alkaline Phosphatase 74 U/L (35-104) 69 U/L (35-104) Total Creatine Kinase 47 U/L (26-140) Creatine Kinase MB < 1.5 ng/mL (< 3.8) Creatine Kinase MB Relative Index Troponin I < 0.30 ng/mL (<=0.30) Pro-B-Type Natriuretic Peptide 141 pg/mL (0-450) Total Protein 7.8 g/dL (6.6-8.7) 7.3 g/dL (6.6-8.7) Albumin 3.8 g/dL (3.5-5.2) 3.5 g/dL (3.5-5.2) Globulin 4.0 g/dL 3.8 g/dL Albumin/Globulin Ratio 0.9 (1.0-2.7) 0.9 (1.0-2.7) Urine Color Yellow Urine Appearance Clear Urine pH 6.5 (4.5-8.0) Urine Specific [place] 1.010 (1.005-1.035) Urine Protein Negative (NEGATIVE) Urine Glucose (UA) Negative (NEGATIVE) Urine Ketones Negative (NEGATIVE) Urine Occult Blood Negative (NEGATIVE) Urine Nitrite Negative (NEGATIVE) Urine Bilirubin Negative (NEGATIVE) Urine Urobilinogen Normal MG/DL (0.0-1.0) Urine Leukocyte Esterase Negative (NEGATIVE) chest Xray noted with likely chronic change Assessment chronic respiratory failure, head and neck cancer with lung metastasis, hemoptysis, 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 GT, trach PLAN care noted respiratory care Ventilatory support home meds supportive care suction no wean oxygen therapy bronchoscopy to evaluate the airway prognosis guarded MARCY MAJOR Mar 10, 2017 13:22
[2017-03-10] MEDS: Cefepime HCl 1 GM in D5W 55 ML IVPB SCH (14:55)
[2017-03-10 16:00] VITALS: BP 104/59
[2017-03-10] MEDS ORDERED: NS 275ml ONE (18:18)
[2017-03-10] MEDS ORDERED: Tubing IV Secondary IV ONE (18:18)
[2017-03-10 20:00] VITALS: BP 104/53
[2017-03-11] VITALS: BP 91/50
[2017-03-11] MEDS: Albuterol/Ipratropium 3ml neb HHN SCH ×4 (00:52→19:24)
[2017-03-11] MEDS ORDERED: Lidocaine HCl 2% Jelly 5ml Tube TOPIC ONE (02:53)
[2017-03-11 04:00] VITALS: BP 100/50
[2017-03-11 08:00] VITALS: BP 112/52
--- NOTE | 2017-03-11 08:12 | Pulmonology Progress Note ---
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 GT, trach PLAN care noted respiratory care as is may need red robbin catheter for home use Ventilatory support as is home meds noted supportive care suction no wean for now oxygen therapy bronchoscopy to evaluate the airway this am prognosis guarded Subjective Allergies: Coded Allergies: PENICILLINS (Verified Allergy, Unknown, 07/31/16) Subjective care noted d/w son agreeable to bronchoscopy Objective Last 24 Hour Vital Signs Date Time Temp Pulse Resp B/P (MAP) Pulse Ox O2 Delivery O2 Flow Rate FiO2 03/11/17 07:34 81 12 100 Mechanical Ventilator 40 03/11/17 07:23 80 13 100 Mechanical Ventilator 40 03/11/17 07:23 40 03/11/17 07:23 80 13 Mechanical Ventilator 40 03/11/17 07:23 81 13 40 03/11/17 05:03 76 13 40 03/11/17 04:00 97.8 80 17 100/50 100 Mechanical Ventilator 40 03/11/17 04:00 87 03/11/17 04:00 40 03/11/17 02:59 71 13 40 03/11/17 01:07 82 13 100 Mechanical Ventilator 40 03/11/17 01:07 78 12 100 Mechanical Ventilator 40 03/11/17 00:53 77 13 40 03/11/17 00:00 76 03/11/17 00:00 97.4 75 18 91/50 100 Mechanical Ventilator 15.0 40 03/11/17 00:00 97.4 75 18 91/50 100 Room Air 03/11/17 00:00 40 03/10/17 22:59 90 13 40 03/10/17 21:01 85 12 40 03/10/17 20:00 98.1 91 15 104/53 99 Room Air 03/10/17 20:00 98.1 91 15 104/53 99 Room Air 15.0 40 03/10/17 20:00 90 03/10/17 20:00 40 03/10/17 19:11 88 13 100 Mechanical Ventilator 40 03/10/17 19:11 82 12 100 Mechanical Ventilator 40 03/10/17 19:08 78 12 Mechanical Ventilator 40 03/10/17 19:03 78 12 40 03/10/17 17:07 80 12 40 03/10/17 16:00 40 03/10/17 16:00 98.3 83 14 104/59 100 Mechanical Ventilator 40 03/10/17 15:48 80 03/10/17 13:00 Mechanical Ventilator 40 03/10/17 13:00 Mechanical Ventilator 40 03/10/17 13:00 81 12 40 03/10/17 12:00 98.0 87 12 93/55 99 Mechanical Ventilator 40 03/10/17 12:00 40 03/10/17 11:41 83 03/10/17 11:01 79 12 40 03/10/17 09:07 90 Microbiology Date/Time Source Procedure Growth Status 03/08/17 16:18 Blood Blood Culture - Final Bacillus Sp Not B. Anthracis Complete 03/08/17 16:18 Blood Blood Culture - Preliminary NO GROWTH AFTER 48 HOURS Resulted Current Medications Medications (Trade) Dose Ordered Sig/Josiah Route PRN Reason Start Time Stop Time Status Last Admin Dose Admin Acetaminophen (Tylenol) 650 mg Q4H PRN GT Pain Scale (3-5) 03/08/17 17:30 04/07/17 17:29 Albuterol/ Ipratropium (DuoNeb 0.5-3(2.5)mg/3ml) 3 ml Q6HRT HHN 03/08/17 19:00 03/13/17 18:59 03/11/17 07:21 Amitriptyline HCl (Elavil) 10 mg BEDTIME GT 03/08/17 21:00 04/07/17 20:59 03/10/17 20:53 Cefepime HCl 1 gm/ Dextrose 55 ml @ 110 mls/hr Q24H IVPB 03/09/17 14:00 03/16/17 13:59 03/10/17 14:55 Digoxin (Lanoxin) 0.125 mg DAILY GT 03/09/17 09:00 04/08/17 08:59 03/10/17 09:07 Levetiracetam (Keppra) 500 mg Q12HR GT 03/08/17 21:00 04/07/17 20:59 03/10/17 20:53 Levothyroxine Sodium (Synthroid) 150 mcg DAILY GT 03/09/17 09:00 04/08/17 08:59 03/10/17 09:07 Midodrine (Pro-Amatine) 10 mg THREE TIMES A DAY GT 03/08/17 18:00 04/07/17 17:59 03/10/17 18:00 Multivitamins Therapeutic (Therapeutic Multivitamin) 1 ea DAILY ORAL 03/09/17 09:00 04/08/17 08:59 03/10/17 09:08 Ondansetron HCl (Zofran) 4 mg Q6H PRN GT Nausea & Vomiting 03/08/17 17:30 04/07/17 17:29 MARCY MAJOR Mar 11, 2017 08:12
[2017-03-11] MEDS: Midodrine 10mg tab GT SCH ×3 (08:59→17:36)
[2017-03-11] MEDS: levETIRAcetam 500mg/5ml Liquid GT SCH ×2 (08:59→21:17)
[2017-03-11] MEDS: Multivitamin w/Minerals tab ORAL SCH (09:00)
[2017-03-11] MEDS: Digoxin 0.125mg tab GT SCH (09:00)
--- NOTE | 2017-03-11 09:08 | General Progress Note ---
Assessment/Plan Problem List: (1) Sepsis ICD Codes: A41.9 - Sepsis, unspecified organism SNOMED: 10011546 (2) Seizures ICD Codes: R56.9 - Unspecified convulsions SNOMED: 38857172 (3) Hemorrhage from tracheostomy stoma ICD Codes: J95.01 - Hemorrhage from tracheostomy stoma SNOMED: 15097503 (4) Tongue malignant neoplasm ICD Codes: C02.9 - Malignant neoplasm of tongue, unspecified SNOMED: 882613595 (5) Lung nodule seen on imaging study ICD Codes: R91.1 - Solitary pulmonary nodule SNOMED: 150594846 (6) Respiratory failure ICD Codes: J96.90 - Respiratory failure, unspecified, unspecified whether with hypoxia or hypercapnia SNOMED: 215074907 Status: stable Assessment/Plan cont iv abx resp care monitor for hemoptysis gentle suctioning gt feeds skin care pulm follow up id eval regarding positive blood culture Subjective ROS Limited/Unobtainable: No Constitutional: Reports: malaise, weakness HEENT: Reports: no symptoms Cardiovascular: Reports: no symptoms Respiratory: Reports: cough, sputum Gastrointestinal/Abdominal: Reports: difficulty swallowing Genitourinary: Reports: no symptoms Neurologic/Psychiatric: Reports: no symptoms Endocrine: Reports: no symptoms Hematologic/Lymphatic: Reports: anemia Allergies: Coded Allergies: PENICILLINS (Verified Allergy, Unknown, 07/31/16) All Systems: reviewed and negative except above Subjective no events. ent noted. on the vent. bronch negative. +blood culture noted- ID contated Objective Last 24 Hour Vital Signs Date Time Temp Pulse Resp B/P (MAP) Pulse Ox O2 Delivery O2 Flow Rate FiO2 03/11/17 09:00 78 03/11/17 08:35 78 18 40 03/11/17 08:00 97.9 97 19 112/52 99 Mechanical Ventilator 40 03/11/17 07:34 81 12 100 Mechanical Ventilator 40 03/11/17 07:23 80 13 100 Mechanical Ventilator 40 03/11/17 07:23 40 03/11/17 07:23 80 13 Mechanical Ventilator 40 03/11/17 07:23 81 13 40 03/11/17 05:03 76 13 40 03/11/17 04:00 97.8 80 17 100/50 100 Mechanical Ventilator 40 03/11/17 04:00 87 03/11/17 04:00 40 03/11/17 02:59 71 13 40 03/11/17 01:07 82 13 100 Mechanical Ventilator 40 03/11/17 01:07 78 12 100 Mechanical Ventilator 40 03/11/17 00:53 77 13 40 03/11/17 00:00 76 03/11/17 00:00 97.4 75 18 91/50 100 Mechanical Ventilator 15.0 40 03/11/17 00:00 97.4 75 18 91/50 100 Room Air 03/11/17 00:00 40 03/10/17 22:59 90 13 40 03/10/17 21:01 85 12 40 03/10/17 20:00 98.1 91 15 104/53 99 Room Air 03/10/17 20:00 98.1 91 15 104/53 99 Room Air 15.0 40 03/10/17 20:00 90 03/10/17 20:00 40 03/10/17 19:11 88 13 100 Mechanical Ventilator 40 03/10/17 19:11 82 12 100 Mechanical Ventilator 40 03/10/17 19:08 78 12 Mechanical Ventilator 40 03/10/17 19:03 78 12 40 03/10/17 17:07 80 12 40 03/10/17 16:00 40 03/10/17 16:00 98.3 83 14 104/59 100 Mechanical Ventilator 40 03/10/17 15:48 80 03/10/17 13:00 Mechanical Ventilator 40 03/10/17 13:00 Mechanical Ventilator 40 03/10/17 13:00 81 12 40 03/10/17 12:00 98.0 87 12 93/55 99 Mechanical Ventilator 40 03/10/17 12:00 40 03/10/17 11:41 83 03/10/17 11:01 79 12 40 03/10/17 09:07 90 Height (Feet): 5 Height (Inches): 1.00 Weight (Pounds): 113 Objective General: The patient is a well-developed, thin female, in no apparent distress. She is arousable and is able to follow some simple commands. NECK: Supple. Trach site is clean. HEART: Regular rate and rhythm. LUNGS: Significant for few scattered rhonchi. ABDOMEN: Soft, nontender, and nondistended. EXTREMITIES: Without clubbing, cyanosis, or edema. CHRISTINA HAMMOND Mar 11, 2017 09:08
[2017-03-11 12:00] VITALS: BP 92/64
[2017-03-11] MEDS: Cefepime HCl 1 GM in D5W 55 ML IVPB SCH (14:13)
[2017-03-11 16:00] VITALS: BP 113/50
[2017-03-11] MEDS ORDERED: NS Irrig 1000ml ONE (16:15)
[2017-03-11 20:00] VITALS: BP 102/49
--- NOTE | 2017-03-11 22:15 | Operative Note - Dictated ---
DATE OF OPERATION: 03/11/2017 PROCEDURE: Bronchoscopy. PREOPERATIVE DIAGNOSIS: Endobronchial tumor. POSTOPERATIVE DIAGNOSIS: Diffuse tracheobronchitis. Consent: After risks and benefits of the procedure explained to the patient's son, a signed informed consent was obtained and placed in the chart. Procedure: Using no additional conscious sedation, a fiberoptic bronchoscope was passed via the tracheostomy. The patient had a very narrow tracheostomy and therefore the inner cannula needed to be removed. The patient's airways were evaluated in detail. The patient's kerrie was somewhat inflamed, left and right endobronchial tree, notable for severe tracheobronchitis with mildly narrowed airways. There is no evidence of active bleeding. There is no evidence of endobronchial tumors and no evidence of stenosis. There was evidence of prior suction trauma, although healed. The patient as well had a moderate amount of secretions upon evaluation, which was suctioned to clear with saline. The patient tolerated the procedure well. He was awake and alert at its completion. The patient's blood pressure, EKG, and oximetry were continuously monitored and were noted to be within the normal range. The care discussed with the son in detail and recommendations for soft tip catheters were discussed. FINDINGS: 1. Severe diffuse tracheobronchitis. 2. Moderate amount of secretions. 3. Evidence of mild suction trauma, but no active bleeding. Disposition: The patient to remain in [facility] and is in stable condition. Brice Grove M.D. DR: KELI JOB#: [id number] CC:
[2017-03-12] VITALS: BP 106/54
[2017-03-12] MEDS: Albuterol/Ipratropium 3ml neb HHN SCH ×4 (01:37→19:59)
[2017-03-12 04:00] VITALS: BP 104/50
[2017-03-12 08:00] VITALS: BP 99/52
--- NOTE | 2017-03-12 08:00 | General Progress Note ---
Assessment/Plan Problem List: (1) Sepsis ICD Codes: A41.9 - Sepsis, unspecified organism SNOMED: 29802480 (2) Seizures ICD Codes: R56.9 - Unspecified convulsions SNOMED: 72260203 (3) Hemorrhage from tracheostomy stoma ICD Codes: J95.01 - Hemorrhage from tracheostomy stoma SNOMED: 49641076 (4) Tongue malignant neoplasm ICD Codes: C02.9 - Malignant neoplasm of tongue, unspecified SNOMED: 537885460 (5) Lung nodule seen on imaging study ICD Codes: R91.1 - Solitary pulmonary nodule SNOMED: 108026134 (6) Respiratory failure ICD Codes: J96.90 - Respiratory failure, unspecified, unspecified whether with hypoxia or hypercapnia SNOMED: 597958587 Status: stable, progressing Assessment/Plan cont iv abx resp care vent monitor for hemoptysis gentle suctioning with red yadira gt feeds skin care pulm follow up id eval regarding positive blood culture dc planning once cleared by id Subjective ROS Limited/Unobtainable: No Constitutional: Reports: malaise, weakness HEENT: Reports: no symptoms Cardiovascular: Reports: no symptoms Respiratory: Reports: no symptoms Gastrointestinal/Abdominal: Reports: difficulty swallowing Genitourinary: Reports: no symptoms Neurologic/Psychiatric: Reports: pre-existing deficit Endocrine: Reports: no symptoms Hematologic/Lymphatic: Reports: anemia Allergies: Coded Allergies: PENICILLINS (Verified Allergy, Unknown, 07/31/16) All Systems: reviewed and negative except above Subjective no events. ent noted. on the vent. bronch negative. +blood culture noted. comfortable. no hemoptysis noted. Objective Last 24 Hour Vital Signs Date Time Temp Pulse Resp B/P (MAP) Pulse Ox O2 Delivery O2 Flow Rate FiO2 03/12/17 07:38 82 12 100 Mechanical Ventilator 40 03/12/17 07:28 74 12 100 Mechanical Ventilator 40 03/12/17 07:28 76 12 40 03/12/17 07:28 40 03/12/17 05:22 73 12 40 03/12/17 04:00 40 03/12/17 04:00 97.1 81 12 104/50 100 Mechanical Ventilator 81 03/12/17 04:00 87 03/12/17 03:37 75 12 40 03/12/17 01:47 80 12 100 Mechanical Ventilator 40 03/12/17 01:38 78 12 40 03/12/17 01:37 40 03/12/17 01:37 78 12 100 Mechanical Ventilator 40 03/12/17 00:00 98.2 72 12 106/54 100 Mechanical Ventilator 72 03/12/17 00:00 70 03/11/17 23:59 40 03/11/17 23:24 72 12 40 03/11/17 21:00 65 12 40 03/11/17 20:00 66 03/11/17 20:00 40 03/11/17 20:00 97.7 88 12 102/49 100 Mechanical Ventilator 88 03/11/17 19:35 85 12 100 Mechanical Ventilator 40 03/11/17 19:25 40 03/11/17 19:25 60 12 100 Mechanical Ventilator 40 03/11/17 19:24 59 12 40 03/11/17 16:44 79 14 40 03/11/17 16:00 40 03/11/17 16:00 97.1 81 12 113/50 100 Mechanical Ventilator 81 03/11/17 15:51 85 03/11/17 14:46 68 18 40 03/11/17 12:54 80 12 100 Mechanical Ventilator 40 03/11/17 12:44 76 18 40 03/11/17 12:43 81 12 100 Mechanical Ventilator 40 03/11/17 12:43 40 03/11/17 12:00 98.3 72 12 92/64 99 Mechanical Ventilator 72 03/11/17 12:00 40 03/11/17 11:49 73 03/11/17 10:43 74 18 40 03/11/17 09:00 78 03/11/17 08:35 78 18 40 03/11/17 08:08 86 03/11/17 08:00 97.9 97 19 112/52 99 Mechanical Ventilator 40 03/11/17 08:00 40 Height (Feet): 5 Height (Inches): 1.00 Weight (Pounds): 113 Objective General: The patient is a well-developed, thin female, in no apparent distress. She is arousable and is able to follow some simple commands. NECK: Supple. Trach site is clean. HEART: Regular rate and rhythm. LUNGS: Significant for few scattered rhonchi. ABDOMEN: Soft, nontender, and nondistended. EXTREMITIES: Without clubbing, cyanosis, or edema. CHRISTINA HAMMOND Mar 12, 2017 08:00
--- NOTE | 2017-03-12 08:33 | Infectious Diseases Prog Note ---
Assessment/Plan Assessment/Plan A: Tracheobronchitis Hemoptysis Positive blood culture with Bacillus likely contamination VDRF History of tongue cancer P: Continue Cefepime Will f/u sputum culture Can be discharged to home Subjective ROS Limited/Unobtainable: Yes Allergies: Coded Allergies: PENICILLINS (Verified Allergy, Unknown, 07/31/16) Objective Vital Signs Last 24 Hour Vital Signs Date Time Temp Pulse Resp B/P (MAP) Pulse Ox O2 Delivery O2 Flow Rate FiO2 03/12/17 07:38 82 12 100 Mechanical Ventilator 40 03/12/17 07:28 74 12 100 Mechanical Ventilator 40 03/12/17 07:28 76 12 40 03/12/17 07:28 40 03/12/17 05:22 73 12 40 03/12/17 04:00 40 03/12/17 04:00 97.1 81 12 104/50 100 Mechanical Ventilator 81 03/12/17 04:00 87 03/12/17 03:37 75 12 40 03/12/17 01:47 80 12 100 Mechanical Ventilator 40 03/12/17 01:38 78 12 40 03/12/17 01:37 40 03/12/17 01:37 78 12 100 Mechanical Ventilator 40 03/12/17 00:00 98.2 72 12 106/54 100 Mechanical Ventilator 72 03/12/17 00:00 70 03/11/17 23:59 40 03/11/17 23:24 72 12 40 03/11/17 21:00 65 12 40 03/11/17 20:00 66 03/11/17 20:00 40 03/11/17 20:00 97.7 88 12 102/49 100 Mechanical Ventilator 88 03/11/17 19:35 85 12 100 Mechanical Ventilator 40 03/11/17 19:25 40 03/11/17 19:25 60 12 100 Mechanical Ventilator 40 03/11/17 19:24 59 12 40 03/11/17 16:44 79 14 40 03/11/17 16:00 40 03/11/17 16:00 97.1 81 12 113/50 100 Mechanical Ventilator 81 03/11/17 15:51 85 03/11/17 14:46 68 18 40 03/11/17 12:54 80 12 100 Mechanical Ventilator 40 03/11/17 12:44 76 18 40 03/11/17 12:43 81 12 100 Mechanical Ventilator 40 03/11/17 12:43 40 03/11/17 12:00 98.3 72 12 92/64 99 Mechanical Ventilator 72 03/11/17 12:00 40 03/11/17 11:49 73 03/11/17 10:43 74 18 40 03/11/17 09:00 78 03/11/17 08:35 78 18 40 Height (Feet): 5 Height (Inches): 1.00 Weight (Pounds): 113 General Appearance: no acute distress HEENT: status post trach Respiratory/Chest: lungs clear, other - on ventilator Cardiovascular: normal rate Abdomen: soft, non tender, other - GT feeding Extremities: no edema Neurologic/Psychiatric: other - sleeping Microbiology Date/Time Source Procedure Growth Status 03/11/17 13:10 Sputum Expectorated Gram Stain - Final Resulted 03/11/17 13:10 Sputum Expectorated Sputum Culture - Preliminary Resulted Current Medications Medications (Trade) Dose Ordered Sig/Josiah Route PRN Reason Start Time Stop Time Status Last Admin Dose Admin Acetaminophen (Tylenol) 650 mg Q4H PRN GT Pain Scale (3-5) 03/08/17 17:30 04/07/17 17:29 Albuterol/ Ipratropium (DuoNeb 0.5-3(2.5)mg/3ml) 3 ml Q6HRT HHN 03/08/17 19:00 03/13/17 18:59 03/12/17 07:28 Amitriptyline HCl (Elavil) 10 mg BEDTIME GT 03/08/17 21:00 04/07/17 20:59 03/11/17 21:16 Cefepime HCl 1 gm/ Dextrose 55 ml @ 110 mls/hr Q24H IVPB 03/09/17 14:00 03/16/17 13:59 03/11/17 14:13 Digoxin (Lanoxin) 0.125 mg DAILY GT 03/09/17 09:00 04/08/17 08:59 03/11/17 09:00 Levetiracetam (Keppra) 500 mg Q12HR GT 03/08/17 21:00 04/07/17 20:59 03/11/17 21:17 Levothyroxine Sodium (Synthroid) 150 mcg DAILY GT 03/09/17 09:00 11/5/17 08:59 03/11/17 08:59 Midodrine (Pro-Amatine) 10 mg THREE TIMES A DAY GT 03/08/17 18:00 04/07/17 17:59 03/11/17 17:36 Multivitamins Therapeutic (Therapeutic Multivitamin) 1 ea DAILY ORAL 03/09/17 09:00 04/08/17 08:59 03/11/17 09:00 Ondansetron HCl (Zofran) 4 mg Q6H PRN GT Nausea & Vomiting 03/08/17 17:30 04/07/17 17:29 JENNIFER MCKEE Mar 12, 2017 08:33
[2017-03-12] MEDS: Multivitamin w/Minerals tab ORAL SCH (08:58)
[2017-03-12] MEDS: Midodrine 10mg tab GT SCH ×3 (08:58→17:40)
[2017-03-12] MEDS: Digoxin 0.125mg tab GT SCH (08:58)
[2017-03-12] MEDS: levETIRAcetam 500mg/5ml Liquid GT SCH ×2 (08:59→21:56)
--- NOTE | 2017-03-12 09:02 | Consultation ---
DATE OF CONSULTATION: 03/11/2017 INFECTIOUS DISEASE CONSULT This consult is for coverage of Dr. Charles. CONSULTING PHYSICIAN: Rodney Caicedo M.D. PRIMARY ATTENDING PHYSICIAN: Rico Madrigal M.D. REASON FOR CONSULT: Hemoptysis and bacteremia. HISTORY OF PRESENT ILLNESS: This 81-year-old female admitted on 03/08/2017 from home after hemoptysis that happen after suctioning of respiratory secretion. The patient has a history of lung cancer with metastatic disease to the lungs. She lives at home. No fever. Had mild leukocytosis at the time of admission. The patient was seen by ENT specialist and had bronchoscopy and laryngoscopy that was normal. She was started on antibiotics since yesterday. PAST MEDICAL HISTORY: Chronic respiratory failure, metastatic lung disease, tongue cancer, hypothyroidism, and anemia. MEDICATIONS: Cefepime, levothyroxine, multivitamin, amitriptyline, Keppra, DuoNeb inhaler, Tylenol, and Zofran. ALLERGIES: She is allergic to aspirin. REVIEW OF SYSTEMS: Limited. The patient does not have any complaints. PHYSICAL EXAMINATION: GENERAL APPEARANCE: No acute distress. VITAL SIGNS: Temperature 97 degrees, pulse 78, and blood pressure is 112/52. HEAD AND NECK: Status post tracheostomy. HEART: Normal rate. Regular. LUNGS: Clear. ABDOMEN: Soft. G-tube in place. EXTREMITIES: Has no edema. NEUROLOGIC: Awake and responsive. LABORATORY DATA: Sodium 140, potassium 3.8, chloride 96, bicarbonate 33, BUN 23, creatinine 0.8, and glucose 102. WBC 11.6, hemoglobin 10.5, hematocrit 32.3, and platelets are 340,000. Chest x-ray showed chronic left basilar consolidation versus mass. Blood culture x1 positive for Bacillus species. IMPRESSION: 1. Bacteremia Bacillus species, culture likely contamination. 2. Hemoptysis may have bronchitis or may be because of deep suctioning at hemorrhage. The patient had metastatic lung cancer, anemia, chronic respiratory failure, and hypothyroidism. RECOMMENDATIONS: We will continue with cefepime. We will ask for sputum culture. I thank Dr. Madrigal for involving me in the care of this patient. Rodney Caicedo M.D. DR: SALUD JOB#: [id number] CC: MCKENZIE
--- NOTE | 2017-03-12 11:03 | Diagnostic Imaging Report ---
APPROVED REPORT CPT Code: 51204 Present Symptoms Shortness of breath Past History DVT : Prior Lower Extremity Venous DuplexDate : 02/24/2017 Comments :WNL BILATERAL: Imaging reveals a patent deep venous system bilaterally. There is no evidence of thrombus within the femoral, popliteal or tibial segments. The greater saphenous veins are also within normal limits. Doppler indicates normal spontaneous flow within these segments. The calf veins were not well visualized bilaterally.
--- NOTE | 2017-03-12 11:18 | Pulmonology Progress Note ---
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 GT, trach PLAN care noted respiratory care as is recommend red robbin catheter for home use- son aware Ventilatory support as is home meds noted supportive care suction no wean for now oxygen therapy bronchoscopy completed prognosis guarded dc planning impression, plan, and exam edited and reviewed in detail care discussed with RN Subjective ROS Limited/Unobtainable: Yes Allergies: Coded Allergies: PENICILLINS (Verified Allergy, Unknown, 07/31/16) Subjective care noted stable overall stable after bronchoscopy Objective Last 24 Hour Vital Signs Date Time Temp Pulse Resp B/P (MAP) Pulse Ox O2 Delivery O2 Flow Rate FiO2 03/12/17 09:10 74 12 40 03/12/17 08:58 76 03/12/17 08:00 97.8 77 12 99/52 100 Mechanical Ventilator 40 03/12/17 07:38 82 12 100 Mechanical Ventilator 40 03/12/17 07:28 74 12 100 Mechanical Ventilator 40 03/12/17 07:28 76 12 40 03/12/17 07:28 40 03/12/17 05:22 73 12 40 03/12/17 04:00 40 03/12/17 04:00 97.1 81 12 104/50 100 Mechanical Ventilator 81 03/12/17 04:00 87 03/12/17 03:37 75 12 40 03/12/17 01:47 80 12 100 Mechanical Ventilator 40 03/12/17 01:38 78 12 40 03/12/17 01:37 40 03/12/17 01:37 78 12 100 Mechanical Ventilator 40 03/12/17 00:00 98.2 72 12 106/54 100 Mechanical Ventilator 72 03/12/17 00:00 70 03/11/17 23:59 40 03/11/17 23:24 72 12 40 03/11/17 21:00 65 12 40 03/11/17 20:00 66 03/11/17 20:00 40 03/11/17 20:00 97.7 88 12 102/49 100 Mechanical Ventilator 88 03/11/17 19:35 85 12 100 Mechanical Ventilator 40 03/11/17 19:25 40 03/11/17 19:25 60 12 100 Mechanical Ventilator 40 03/11/17 19:24 59 12 40 03/11/17 16:44 79 14 40 03/11/17 16:00 40 03/11/17 16:00 97.1 81 12 113/50 100 Mechanical Ventilator 81 03/11/17 15:51 85 03/11/17 14:46 68 18 40 03/11/17 12:54 80 12 100 Mechanical Ventilator 40 03/11/17 12:44 76 18 40 03/11/17 12:43 81 12 100 Mechanical Ventilator 40 03/11/17 12:43 40 03/11/17 12:00 98.3 72 12 92/64 99 Mechanical Ventilator 72 03/11/17 12:00 40 03/11/17 11:49 73 Microbiology Date/Time Source Procedure Growth Status 03/11/17 13:10 Sputum Expectorated Gram Stain - Final Resulted 03/11/17 13:10 Sputum Expectorated Sputum Culture - Preliminary Resulted Current Medications Medications (Trade) Dose Ordered Sig/Josiah Route PRN Reason Start Time Stop Time Status Last Admin Dose Admin Acetaminophen (Tylenol) 650 mg Q4H PRN GT Pain Scale (3-5) 03/08/17 17:30 04/07/17 17:29 Albuterol/ Ipratropium (DuoNeb 0.5-3(2.5)mg/3ml) 3 ml Q6HRT HHN 03/08/17 19:00 03/13/17 18:59 03/12/17 07:28 Amitriptyline HCl (Elavil) 10 mg BEDTIME GT 03/08/17 21:00 04/07/17 20:59 03/11/17 21:16 Cefepime HCl 1 gm/ Dextrose 55 ml @ 110 mls/hr Q24H IVPB 03/09/17 14:00 03/16/17 13:59 03/11/17 14:13 Digoxin (Lanoxin) 0.125 mg DAILY GT 03/09/17 09:00 04/08/17 08:59 03/12/17 08:58 Levetiracetam (Keppra) 500 mg Q12HR GT 03/08/17 21:00 04/07/17 20:59 03/12/17 08:59 Levothyroxine Sodium (Synthroid) 150 mcg DAILY GT 03/09/17 09:00 04/08/17 08:59 03/12/17 08:58 Midodrine (Pro-Amatine) 10 mg THREE TIMES A DAY GT 03/08/17 18:00 04/07/17 17:59 03/12/17 08:58 Multivitamins Therapeutic (Therapeutic Multivitamin) 1 ea DAILY ORAL 03/09/17 09:00 04/08/17 08:59 03/12/17 08:58 Ondansetron HCl (Zofran) 4 mg Q6H PRN GT Nausea & Vomiting 03/08/17 17:30 04/07/17 17:29 MARCY MAJOR Mar 12, 2017 11:18
[2017-03-12 12:00] VITALS: BP 110/56
[2017-03-12] MEDS: Cefepime HCl 1 GM in D5W 55 ML IVPB SCH (13:58)
[2017-03-12 16:00] VITALS: BP 115/63
[2017-03-12 20:00] VITALS: BP 114/57
[2017-03-13] VITALS (7 sets, daily range): BP systolic 101–130; BP diastolic 51–69
[2017-03-13] MEDS: Albuterol/Ipratropium 3ml neb HHN SCH ×3 (01:38→13:18)
--- NOTE | 2017-03-13 08:15 | Pulmonology Progress Note ---
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 GT, trach PLAN care noted respiratory care as is soft tip catheter for home use- son aware Ventilatory support as is home meds noted supportive care suction no wean for now oxygen therapy trach change prognosis guarded dc planning impression, plan, and exam edited and reviewed in detail care discussed with RN Subjective ROS Limited/Unobtainable: Yes Allergies: Coded Allergies: PENICILLINS (Verified Allergy, Unknown, 07/31/16) Subjective care noted stable overall on the ventilator no recurrence of bleeding Objective Last 24 Hour Vital Signs Date Time Temp Pulse Resp B/P (MAP) Pulse Ox O2 Delivery O2 Flow Rate FiO2 03/13/17 07:01 90 12 100 Mechanical Ventilator 40 03/13/17 06:59 98 12 40 03/13/17 06:50 40 03/13/17 06:50 98 12 100 Mechanical Ventilator 40 03/13/17 05:32 98.6 102 16 130/69 100 Mechanical Ventilator 40 03/13/17 05:24 95 13 40 03/13/17 04:00 40 03/13/17 04:00 105 03/13/17 04:00 98.6 102 16 130/69 100 Mechanical Ventilator 40 03/13/17 03:30 125 13 40 03/13/17 01:45 82 14 100 Mechanical Ventilator 40 03/13/17 01:38 92 14 100 Mechanical Ventilator 40 03/13/17 01:38 40 03/13/17 01:37 90 12 40 03/13/17 00:00 40 03/13/17 00:00 98.4 81 14 101/59 100 Mechanical Ventilator 40 03/13/17 00:00 93 03/12/17 23:37 92 14 40 03/12/17 20:35 91 14 40 03/12/17 20:10 86 14 100 Mechanical Ventilator 40 03/12/17 20:00 40 03/12/17 20:00 98.1 81 14 114/57 100 Mechanical Ventilator 40 03/12/17 20:00 40 03/12/17 20:00 62 03/12/17 20:00 81 14 100 Mechanical Ventilator 40 03/12/17 19:59 81 14 40 03/12/17 17:08 78 12 40 03/12/17 16:10 73 03/12/17 16:00 97.2 81 12 115/63 100 Mechanical Ventilator 40 03/12/17 16:00 40 03/12/17 14:52 76 12 40 03/12/17 13:22 74 12 100 Mechanical Ventilator 40 03/12/17 13:12 74 12 40 03/12/17 13:12 40 03/12/17 13:12 76 12 100 Mechanical Ventilator 40 03/12/17 12:00 40 03/12/17 12:00 97.3 83 14 110/56 100 Mechanical Ventilator 40 03/12/17 11:52 69 03/12/17 10:52 70 12 40 03/12/17 09:10 74 12 40 03/12/17 08:58 76 Microbiology Date/Time Source Procedure Growth Status 03/11/17 13:10 Sputum Expectorated Gram Stain - Final Resulted 03/11/17 13:10 Sputum Culture - Preliminary Gram Negative Bacillus 1 Usual Upper Respiratory Anyi Resulted Current Medications Medications (Trade) Dose Ordered Sig/Josiah Route PRN Reason Start Time Stop Time Status Last Admin Dose Admin Acetaminophen (Tylenol) 650 mg Q4H PRN GT Pain Scale (3-5) 03/08/17 17:30 04/07/17 17:29 Albuterol/ Ipratropium (DuoNeb 0.5-3(2.5)mg/3ml) 3 ml Q6HRT HHN 03/08/17 19:00 03/13/17 18:59 03/13/17 06:58 Amitriptyline HCl (Elavil) 10 mg BEDTIME GT 03/08/17 21:00 04/07/17 20:59 03/12/17 21:56 Cefepime HCl 1 gm/ Dextrose 55 ml @ 110 mls/hr Q24H IVPB 03/09/17 14:00 03/16/17 13:59 03/12/17 13:58 Digoxin (Lanoxin) 0.125 mg DAILY GT 03/09/17 09:00 04/08/17 08:59 03/12/17 08:58 Levetiracetam (Keppra) 500 mg Q12HR GT 03/08/17 21:00 04/07/17 20:59 03/12/17 21:56 Levothyroxine Sodium (Synthroid) 150 mcg DAILY GT 03/09/17 09:00 04/08/17 08:59 03/12/17 08:58 Midodrine (Pro-Amatine) 10 mg THREE TIMES A DAY GT 03/08/17 18:00 04/07/17 17:59 03/12/17 17:40 Multivitamins Therapeutic (Therapeutic Multivitamin) 1 ea DAILY ORAL 03/09/17 09:00 04/08/17 08:59 03/12/17 08:58 Ondansetron HCl (Zofran) 4 mg Q6H PRN GT Nausea & Vomiting 03/08/17 17:30 04/07/17 17:29 MARCY MAJOR Mar 13, 2017 08:14
--- NOTE | 2017-03-13 09:23 | General Progress Note ---
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 - Malignant neoplasm of tongue, unspecified SNOMED: 120357614 (5) Lung nodule seen on imaging study ICD Codes: R91.1 - Solitary pulmonary nodule SNOMED: 553846898 (6) Respiratory failure ICD Codes: J96.90 - Respiratory failure, unspecified, unspecified whether with hypoxia or hypercapnia SNOMED: 763826147 Status: stable, progressing Assessment/Plan cont iv abx resp care vent monitor for hemoptysis gentle suctioning with red yadira gt feeds skin care pulm follow up dc planning once able to convert to po abx Subjective ROS Limited/Unobtainable: No Constitutional: Reports: malaise, weakness HEENT: Reports: no symptoms Cardiovascular: Reports: no symptoms Respiratory: Reports: cough, sputum Gastrointestinal/Abdominal: Reports: difficulty swallowing Genitourinary: Reports: no symptoms Neurologic/Psychiatric: Reports: no symptoms Endocrine: Reports: no symptoms Hematologic/Lymphatic: Reports: anemia Allergies: Coded Allergies: PENICILLINS (Verified Allergy, Unknown, 07/31/16) All Systems: reviewed and negative except above Subjective no hemoptysis. id noted. on cefepime. no fever. no sob. tolerating feeds Objective Last 24 Hour Vital Signs Date Time Temp Pulse Resp B/P (MAP) Pulse Ox O2 Delivery O2 Flow Rate FiO2 03/13/17 09:10 94 13 40 03/13/17 07:01 90 12 100 Mechanical Ventilator 40 03/13/17 06:59 98 12 40 03/13/17 06:50 40 03/13/17 06:50 98 12 100 Mechanical Ventilator 40 03/13/17 05:32 98.6 102 16 130/69 100 Mechanical Ventilator 40 03/13/17 05:24 95 13 40 03/13/17 04:00 40 03/13/17 04:00 105 03/13/17 04:00 98.6 102 16 130/69 100 Mechanical Ventilator 40 03/13/17 03:30 125 13 40 03/13/17 01:45 82 14 100 Mechanical Ventilator 40 03/13/17 01:38 92 14 100 Mechanical Ventilator 40 03/13/17 01:38 40 03/13/17 01:37 90 12 40 03/13/17 00:00 40 03/13/17 00:00 98.4 81 14 101/59 100 Mechanical Ventilator 40 03/13/17 00:00 93 03/12/17 23:37 92 14 40 03/12/17 20:35 91 14 40 03/12/17 20:10 86 14 100 Mechanical Ventilator 40 03/12/17 20:00 40 03/12/17 20:00 98.1 81 14 114/57 100 Mechanical Ventilator 40 03/12/17 20:00 40 03/12/17 20:00 62 03/12/17 20:00 81 14 100 Mechanical Ventilator 40 03/12/17 19:59 81 14 40 03/12/17 17:08 78 12 40 03/12/17 16:10 73 03/12/17 16:00 97.2 81 12 115/63 100 Mechanical Ventilator 40 03/12/17 16:00 40 03/12/17 14:52 76 12 40 03/12/17 13:22 74 12 100 Mechanical Ventilator 40 03/12/17 13:12 74 12 40 03/12/17 13:12 40 03/12/17 13:12 76 12 100 Mechanical Ventilator 40 03/12/17 12:00 40 03/12/17 12:00 97.3 83 14 110/56 100 Mechanical Ventilator 40 03/12/17 11:52 69 03/12/17 10:52 70 12 40 Height (Feet): 5 Height (Inches): 1.00 Weight (Pounds): 113 Objective General: The patient is a well-developed, thin female, in no apparent distress. She is arousable and is able to follow some simple commands. NECK: Supple. Trach site is clean. HEART: Regular rate and rhythm. LUNGS: Significant for few scattered rhonchi. ABDOMEN: Soft, nontender, and nondistended. EXTREMITIES: Without clubbing, cyanosis, or edema. CHRISTINA HAMMOND Mar 13, 2017 09:23
--- NOTE | 2017-03-13 10:19 | Infectious Diseases Prog Note ---
Assessment/Plan Assessment/Plan antibiotics : cefepime A 1. gram negative pneumonia 2. + blood cultures with bacillus likely contaminated 3. metastatic lung cancer 4. respiratory failure P 1. continue cefepime 2. will follow up cultures Subjective ROS Limited/Unobtainable: Yes Allergies: Coded Allergies: PENICILLINS (Verified Allergy, Unknown, 07/31/16) Objective Vital Signs Last 24 Hour Vital Signs Date Time Temp Pulse Resp B/P (MAP) Pulse Ox O2 Delivery O2 Flow Rate FiO2 03/13/17 09:10 94 13 40 03/13/17 08:00 98.2 91 28 112/55 100 Mechanical Ventilator 40 03/13/17 07:01 90 12 100 Mechanical Ventilator 40 03/13/17 06:59 98 12 40 03/13/17 06:50 40 03/13/17 06:50 98 12 100 Mechanical Ventilator 40 03/13/17 05:32 98.6 102 16 130/69 100 Mechanical Ventilator 40 03/13/17 05:24 95 13 40 03/13/17 04:00 40 03/13/17 04:00 105 03/13/17 04:00 98.6 102 16 130/69 100 Mechanical Ventilator 40 03/13/17 03:30 125 13 40 03/13/17 01:45 82 14 100 Mechanical Ventilator 40 03/13/17 01:38 92 14 100 Mechanical Ventilator 40 03/13/17 01:38 40 03/13/17 01:37 90 12 40 03/13/17 00:00 40 03/13/17 00:00 98.4 81 14 101/59 100 Mechanical Ventilator 40 03/13/17 00:00 93 03/12/17 23:37 92 14 40 03/12/17 20:35 91 14 40 03/12/17 20:10 86 14 100 Mechanical Ventilator 40 03/12/17 20:00 40 03/12/17 20:00 98.1 81 14 114/57 100 Mechanical Ventilator 40 03/12/17 20:00 40 03/12/17 20:00 62 03/12/17 20:00 81 14 100 Mechanical Ventilator 40 03/12/17 19:59 81 14 40 03/12/17 17:08 78 12 40 03/12/17 16:10 73 03/12/17 16:00 97.2 81 12 115/63 100 Mechanical Ventilator 40 03/12/17 16:00 40 03/12/17 14:52 76 12 40 03/12/17 13:22 74 12 100 Mechanical Ventilator 40 03/12/17 13:12 74 12 40 03/12/17 13:12 40 03/12/17 13:12 76 12 100 Mechanical Ventilator 40 03/12/17 12:00 40 03/12/17 12:00 97.3 83 14 110/56 100 Mechanical Ventilator 40 03/12/17 11:52 69 03/12/17 10:52 70 12 40 Height (Feet): 5 Height (Inches): 1.00 Weight (Pounds): 113 HEENT: status post trach Respiratory/Chest: lungs clear Cardiovascular: normal rate, regular rhythm, no gallop/murmur Abdomen: soft, non tender, other - GT Extremities: no edema Microbiology Date/Time Source Procedure Growth Status 03/11/17 13:10 Sputum Expectorated Gram Stain - Final Resulted 03/11/17 13:10 Sputum Culture - Preliminary Gram Negative Bacillus 1 Usual Upper Respiratory Anyi Resulted MARA BLOCK Mar 13, 2017 10:19
[2017-03-13] MEDS: Midodrine 10mg tab GT SCH ×3 (10:26→18:18)
[2017-03-13] MEDS: levETIRAcetam 500mg/5ml Liquid GT SCH ×2 (10:26→20:15)
[2017-03-13] MEDS: Multivitamin w/Minerals tab ORAL SCH (10:26)
[2017-03-13] MEDS: Digoxin 0.125mg tab GT SCH (10:27)
[2017-03-13] MEDS: Cefepime HCl 1 GM in D5W 55 ML IVPB SCH (13:16)
[2017-03-13] MEDS ORDERED: NS 275ml ONE (14:45)
[2017-03-13] MEDS ORDERED: NS 500ML IV ONE (14:45)
[2017-03-14] VITALS: BP 105/52
[2017-03-14 04:47] LABS: EOSINOPHILS % (AUTO) 4.3 % (0.0-3.0); LYMPHOCYTES % (AUTO) 14.4 % (20.0-45.0); MEAN CORPUSCULAR HEMOGLOBIN 30.6 PG (27.0-31.0); MEAN CORPUSCULAR HGB CONC 33.4 G/DL (32.0-36.0); MEAN CORPUSCULAR VOLUME 92 FL (80-99); MEAN PLATELET VOLUME 6.4 FL (6.5-10.1); NEUTROPHILS % (AUTO) 71.3 % (45.0-75.0); PLATELET COUNT 271 K/UL (150-450); RED BLOOD COUNT 3.55 M/UL (4.20-5.40); RED CELL DISTRIBUTION WIDTH 12.1 % (11.6-14.8); WHITE BLOOD COUNT 11.2 K/UL (4.8-10.8)
[2017-03-14 04:57] VITALS: BP 110/72
[2017-03-14 05:22] LABS: ANION GAP 6 (5-15); CARBON DIOXIDE 28 MMOL/L (21-32); CHLORIDE 101 MMOL/L (98-107); CREATININE 0.6 MG/DL (0.55-1.30); POTASSIUM 4.5 MMOL/L (3.5-5.1); SODIUM 135 MMOL/L (136-145)
[2017-03-14 05:26] LABS: CALCIUM 9.2 MG/DL (8.5-10.1)
[2017-03-14 08:00] VITALS: BP 92/52
[2017-03-14] MEDS: Multivitamin w/Minerals tab ORAL SCH (08:29)
[2017-03-14] MEDS: levETIRAcetam 500mg/5ml Liquid GT SCH ×2 (08:29→20:32)
[2017-03-14] MEDS: Midodrine 10mg tab GT SCH ×3 (08:30→17:52)
[2017-03-14] MEDS: Digoxin 0.125mg tab GT SCH (08:30)
--- NOTE | 2017-03-14 10:51 | Pulmonology Progress Note ---
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 GT, trach PLAN care noted respiratory care as is soft tip catheter for home use- son aware Ventilatory support as is home meds noted supportive care suction with caution no wean for now oxygen therapy trach change monitor labs prognosis guarded dc planning impression, plan, and exam edited and reviewed in detail care discussed with RN Subjective ROS Limited/Unobtainable: Yes Allergies: Coded Allergies: PENICILLINS (Verified Allergy, Unknown, 07/31/16) Subjective care noted stable overall on the ventilator no recurrence of bleeding Objective Last 24 Hour Vital Signs Date Time Temp Pulse Resp B/P (MAP) Pulse Ox O2 Delivery O2 Flow Rate FiO2 03/14/17 08:59 85 12 40 03/14/17 08:30 80 03/14/17 08:00 40 03/14/17 08:00 98.2 78 12 92/52 100 Mechanical Ventilator 40 03/14/17 08:00 75 03/14/17 06:47 80 14 40 03/14/17 05:19 89 13 40 03/14/17 04:57 96.2 82 18 110/72 100 Mechanical Ventilator 40 03/14/17 04:00 40 03/14/17 04:00 81 03/14/17 03:47 85 12 40 03/14/17 00:51 89 13 40 03/14/17 00:00 97.7 80 12 105/52 100 Mechanical Ventilator 40 03/14/17 00:00 81 03/14/17 00:00 40 03/13/17 23:00 79 12 40 03/13/17 21:00 81 13 40 03/13/17 20:00 97.5 80 14 129/67 100 Mechanical Ventilator 40 03/13/17 20:00 80 03/13/17 20:00 40 03/13/17 19:00 Mechanical Ventilator 03/13/17 19:00 75 12 40 03/13/17 19:00 Mechanical Ventilator 03/13/17 17:00 82 13 40 03/13/17 16:00 40 03/13/17 16:00 97.7 75 12 104/51 100 Mechanical Ventilator 40 03/13/17 16:00 79 03/13/17 15:11 88 13 40 03/13/17 13:21 77 12 100 Mechanical Ventilator 40 03/13/17 13:19 74 12 40 03/13/17 13:10 74 12 100 Mechanical Ventilator 40 03/13/17 13:10 40 03/13/17 12:00 97.7 76 12 110/57 100 Mechanical Ventilator 40 03/13/17 12:00 40 03/13/17 11:37 75 03/13/17 11:24 79 12 40 Objective WDWN female NAD trach clear breath sounds bilaterally without rhonchi or wheeze [id number] without MRG NABS nontender no HSM; GT no CCE nonfocal diffusely weak confused Microbiology Date/Time Source Procedure Growth Status 03/11/17 13:10 Sputum Expectorated Gram Stain - Final Complete 03/11/17 13:10 Sputum Culture - Final Pseudomonas Aeruginosa Usual Upper Respiratory Anyi Complete Laboratory Tests 03/14/17 03:35: White Blood Count 11.2H, Red Blood Count 3.55L, Hemoglobin 10.9L, Hematocrit 32.5L, Mean Corpuscular Volume 92, Mean Corpuscular Hemoglobin 30.6, Mean Corpuscular Hemoglobin Concent 33.4, Red Cell Distribution Width 12.1, Platelet Count 271, Mean Platelet Volume 6.4L, Neutrophils (%) (Auto) 71.3, Lymphocytes ( %) (Auto) 14.4L, Monocytes (%) (Auto) 9.0, Eosinophils (%) (Auto) 4.3H, Basophils (%) (Auto) 1.0, Sodium Level 135L, Potassium Level 4.5, Chloride Level 101, Carbon Dioxide Level 28, Anion Gap 6, Blood Urea Nitrogen 23H, Creatinine 0.6, Estimat Glomerular Filtration Rate , Glucose Level 108H, Calcium Level 9.2 Current Medications Medications (Trade) Dose Ordered Sig/Josiah Route PRN Reason Start Time Stop Time Status Last Admin Dose Admin Acetaminophen (Tylenol) 650 mg Q4H PRN GT Pain Scale (3-5) 03/08/17 17:30 04/07/17 17:29 Amitriptyline HCl (Elavil) 10 mg BEDTIME GT 03/08/17 21:00 04/07/17 20:59 03/13/17 20:15 Cefepime HCl 1 gm/ Dextrose 55 ml @ 110 mls/hr Q24H IVPB 03/09/17 14:00 03/16/17 13:59 03/13/17 13:16 Digoxin (Lanoxin) 0.125 mg DAILY GT 03/09/17 09:00 04/08/17 08:59 03/14/17 08:30 Levetiracetam (Keppra) 500 mg Q12HR GT 03/08/17 21:00 04/07/17 20:59 03/14/17 08:29 Levothyroxine Sodium (Synthroid) 150 mcg DAILY GT 03/09/17 09:00 04/08/17 08:59 03/14/17 08:29 Midodrine (Pro-Amatine) 10 mg THREE TIMES A DAY GT 03/08/17 18:00 04/07/17 17:59 03/14/17 08:30 Multivitamins Therapeutic (Therapeutic Multivitamin) 1 ea DAILY ORAL 03/09/17 09:00 04/08/17 08:59 03/14/17 08:29 Ondansetron HCl (Zofran) 4 mg Q6H PRN GT Nausea & Vomiting 03/08/17 17:30 04/07/17 17:29 MARCY MAJOR Mar 14, 2017 10:51
--- NOTE | 2017-03-14 11:27 | Infectious Diseases Prog Note ---
Assessment/Plan Assessment/Plan antibiotics : cefepime A 1. pseudomonas pneumonia 2. + blood cultures with bacillus likely contaminated 3. metastatic lung cancer 4. respiratory failure P 1. d/c cefepime 2. start meropenem 3. will follow up cultures Subjective ROS Limited/Unobtainable: Yes Allergies: Coded Allergies: PENICILLINS (Verified Allergy, Unknown, 07/31/16) Objective Vital Signs Last 24 Hour Vital Signs Date Time Temp Pulse Resp B/P (MAP) Pulse Ox O2 Delivery O2 Flow Rate FiO2 03/14/17 08:59 85 12 40 03/14/17 08:30 80 03/14/17 08:00 40 03/14/17 08:00 98.2 78 12 92/52 100 Mechanical Ventilator 40 03/14/17 08:00 75 03/14/17 06:47 80 14 40 03/14/17 05:19 89 13 40 03/14/17 04:57 96.2 82 18 110/72 100 Mechanical Ventilator 40 03/14/17 04:00 40 03/14/17 04:00 81 03/14/17 03:47 85 12 40 03/14/17 00:51 89 13 40 03/14/17 00:00 97.7 80 12 105/52 100 Mechanical Ventilator 40 03/14/17 00:00 81 03/14/17 00:00 40 03/13/17 23:00 79 12 40 03/13/17 21:00 81 13 40 03/13/17 20:00 97.5 80 14 129/67 100 Mechanical Ventilator 40 03/13/17 20:00 80 03/13/17 20:00 40 03/13/17 19:00 Mechanical Ventilator 03/13/17 19:00 75 12 40 03/13/17 19:00 Mechanical Ventilator 03/13/17 17:00 82 13 40 03/13/17 16:00 40 03/13/17 16:00 97.7 75 12 104/51 100 Mechanical Ventilator 40 03/13/17 16:00 79 03/13/17 15:11 88 13 40 03/13/17 13:21 77 12 100 Mechanical Ventilator 40 03/13/17 13:19 74 12 40 03/13/17 13:10 74 12 100 Mechanical Ventilator 40 03/13/17 13:10 40 03/13/17 12:00 97.7 76 12 110/57 100 Mechanical Ventilator 40 03/13/17 12:00 40 03/13/17 11:37 75 Height (Feet): 5 Height (Inches): 1.00 Weight (Pounds): 113 HEENT: status post trach Respiratory/Chest: lungs clear Cardiovascular: normal rate, regular rhythm, no gallop/murmur Abdomen: soft, non tender, other - GT Extremities: no edema Microbiology Date/Time Source Procedure Growth Status 03/11/17 13:10 Sputum Expectorated Gram Stain - Final Complete 03/11/17 13:10 Sputum Culture - Final Pseudomonas Aeruginosa Usual Upper Respiratory Anyi Complete Laboratory Tests Test 03/14/17 03:35 White Blood Count 11.2 K/UL (4.8-10.8) H Red Blood Count 3.55 M/UL (4.20-5.40) L Hemoglobin 10.9 G/DL (12.0-16.0) L Hematocrit 32.5 % (37.0-47.0) L Mean Corpuscular Volume 92 FL (80-99) Mean Corpuscular Hemoglobin 30.6 PG (27.0-31.0) Mean Corpuscular Hemoglobin Concent 33.4 G/DL (32.0-36.0) Red Cell Distribution Width 12.1 % (11.6-14.8) Platelet Count 271 K/UL (150-450) Mean Platelet Volume 6.4 FL (6.5-10.1) L Neutrophils (%) (Auto) 71.3 % (45.0-75.0) Lymphocytes (%) (Auto) 14.4 % (20.0-45.0) L Monocytes (%) (Auto) 9.0 % (1.0-10.0) Eosinophils (%) (Auto) 4.3 % (0.0-3.0) H Basophils (%) (Auto) 1.0 % (0.0-2.0) Sodium Level 135 MMOL/L (136-145) L Potassium Level 4.5 MMOL/L (3.5-5.1) Chloride Level 101 MMOL/L (98-107) Carbon Dioxide Level 28 MMOL/L (21-32) Anion Gap 6 (5-15) Blood Urea Nitrogen 23 mg/dL (7-18) H Creatinine 0.6 MG/DL (0.55-1.30) Estimat Glomerular Filtration Rate mL/min (>60) Glucose Level 108 MG/DL (74-106) H Calcium Level 9.2 MG/DL (8.5-10.1) MARA BLOCK Mar 14, 2017 11:27
[2017-03-14 12:00] VITALS: BP 100/54
--- NOTE | 2017-03-14 13:31 | General Progress Note ---
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 updated on poc dc planning once able to convert to po abx Subjective ROS Limited/Unobtainable: No Constitutional: Reports: malaise, weakness HEENT: Reports: no symptoms Cardiovascular: Reports: no symptoms Respiratory: Reports: cough, sputum Gastrointestinal/Abdominal: Reports: difficulty swallowing Genitourinary: Reports: no symptoms Neurologic/Psychiatric: Reports: pre-existing deficit Endocrine: Reports: no symptoms Hematologic/Lymphatic: Reports: anemia Allergies: Coded Allergies: PENICILLINS (Verified Allergy, Unknown, 07/31/16) All Systems: reviewed and negative except above Subjective no hemoptysis. id noted. on meropenem now. appears comfortable. Objective Last 24 Hour Vital Signs Date Time Temp Pulse Resp B/P (MAP) Pulse Ox O2 Delivery O2 Flow Rate FiO2 03/14/17 12:57 72 12 40 03/14/17 12:45 67 03/14/17 12:00 98.7 71 12 100/54 100 Mechanical Ventilator 40 03/14/17 12:00 40 03/14/17 11:28 80 12 40 03/14/17 08:59 85 12 40 03/14/17 08:30 80 03/14/17 08:00 40 03/14/17 08:00 98.2 78 12 92/52 100 Mechanical Ventilator 40 03/14/17 08:00 75 03/14/17 06:47 80 14 40 03/14/17 05:19 89 13 40 03/14/17 04:57 96.2 82 18 110/72 100 Mechanical Ventilator 40 03/14/17 04:00 40 03/14/17 04:00 81 03/14/17 03:47 85 12 40 03/14/17 00:51 89 13 40 03/14/17 00:00 97.7 80 12 105/52 100 Mechanical Ventilator 40 03/14/17 00:00 81 03/14/17 00:00 40 03/13/17 23:00 79 12 40 03/13/17 21:00 81 13 40 03/13/17 20:00 97.5 80 14 129/67 100 Mechanical Ventilator 40 03/13/17 20:00 80 03/13/17 20:00 40 03/13/17 19:00 Mechanical Ventilator 03/13/17 19:00 75 12 40 03/13/17 19:00 Mechanical Ventilator 03/13/17 17:00 82 13 40 03/13/17 16:00 40 03/13/17 16:00 97.7 75 12 104/51 100 Mechanical Ventilator 40 03/13/17 16:00 79 03/13/17 15:11 88 13 40 Intake and Output 03/14/17 03/15/17 19:00 07:00 Intake Total 390 ml Balance 390 ml Intake Free Water 150 ml Tube Feeding 240 ml Laboratory Tests 03/14/17 03:35: White Blood Count 11.2H, Red Blood Count 3.55L, Hemoglobin 10.9L, Hematocrit 32.5L, Mean Corpuscular Volume 92, Mean Corpuscular Hemoglobin 30.6, Mean Corpuscular Hemoglobin Concent 33.4, Red Cell Distribution Width 12.1, Platelet Count 271, Mean Platelet Volume 6.4L, Neutrophils (%) (Auto) 71.3, Lymphocytes ( %) (Auto) 14.4L, Monocytes (%) (Auto) 9.0, Eosinophils (%) (Auto) 4.3H, Basophils (%) (Auto) 1.0, Sodium Level 135L, Potassium Level 4.5, Chloride Level 101, Carbon Dioxide Level 28, Anion Gap 6, Blood Urea Nitrogen 23H, Creatinine 0.6, Estimat Glomerular Filtration Rate , Glucose Level 108H, Calcium Level 9.2 Height (Feet): 5 Height (Inches): 1.00 Weight (Pounds): 113 Objective General: The patient is a well-developed, thin female, in no apparent distress. She is arousable and is able to follow some simple commands. NECK: Supple. Trach site is clean. HEART: Regular rate and rhythm. LUNGS: Significant for few scattered rhonchi. ABDOMEN: Soft, nontender, and nondistended. EXTREMITIES: Without clubbing, cyanosis, or edema. CHRISTINA HAMMOND Mar 14, 2017 13:31
[2017-03-14] MEDS: Meropenem 500 MG in NS 55 ML IVPB SCH ×2 (13:42→21:10)
[2017-03-14 16:00] VITALS: BP 100/55
[2017-03-14 20:00] VITALS: BP 128/60
[2017-03-15] VITALS: BP 116/68
[2017-03-15 04:00] VITALS: BP 112/63
[2017-03-15] MEDS: Meropenem 500 MG in NS 55 ML IVPB SCH ×3 (05:23→21:00)
--- NOTE | 2017-03-15 07:57 | General Progress Note ---
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 updated on poc dc planning once able to convert to po abx Subjective ROS Limited/Unobtainable: No Constitutional: Reports: malaise, weakness HEENT: Reports: no symptoms Cardiovascular: Reports: no symptoms Respiratory: Reports: cough Gastrointestinal/Abdominal: Reports: difficulty swallowing Genitourinary: Reports: no symptoms Neurologic/Psychiatric: Reports: no symptoms Endocrine: Reports: no symptoms Hematologic/Lymphatic: Reports: anemia Allergies: Coded Allergies: PENICILLINS (Verified Allergy, Unknown, 07/31/16) All Systems: reviewed and negative except above Subjective no hemoptysis. id noted. on meropenem now. appears comfortable. no overnite events. Objective Last 24 Hour Vital Signs Date Time Temp Pulse Resp B/P (MAP) Pulse Ox O2 Delivery O2 Flow Rate FiO2 03/15/17 07:51 87 03/15/17 07:51 40 03/15/17 07:12 91 13 40 03/15/17 05:14 85 12 40 03/15/17 04:00 96 03/15/17 04:00 97.0 90 20 112/63 100 Mechanical Ventilator 40 03/15/17 04:00 40 03/15/17 03:45 81 12 40 03/15/17 01:20 89 12 40 03/15/17 00:16 88 15 40 03/15/17 00:00 97.8 87 18 116/68 100 Mechanical Ventilator 40 03/15/17 00:00 40 03/15/17 00:00 86 03/14/17 21:20 76 13 40 03/14/17 20:00 85 03/14/17 20:00 40 03/14/17 20:00 97.9 82 18 128/60 100 Mechanical Ventilator 40 03/14/17 19:00 83 14 40 03/14/17 16:59 80 12 40 03/14/17 16:00 66 03/14/17 16:00 40 03/14/17 16:00 98.7 71 12 100/55 100 Mechanical Ventilator 40 03/14/17 15:14 75 12 40 03/14/17 12:57 72 12 40 03/14/17 12:45 67 03/14/17 12:00 98.7 71 12 100/54 100 Mechanical Ventilator 40 03/14/17 12:00 40 03/14/17 11:28 80 12 40 03/14/17 08:59 85 12 40 03/14/17 08:30 80 03/14/17 08:00 40 03/14/17 08:00 98.2 78 12 92/52 100 Mechanical Ventilator 40 03/14/17 08:00 75 Height (Feet): 5 Height (Inches): 1.00 Weight (Pounds): 113 Objective General: The patient is a well-developed, thin female, in no apparent distress. She is arousable and is able to follow some simple commands. NECK: Supple. Trach site is clean. HEART: Regular rate and rhythm. LUNGS: Significant for few scattered rhonchi. ABDOMEN: Soft, nontender, and nondistended. EXTREMITIES: Without clubbing, cyanosis, or edema. CHRISTINA HAMMOND Mar 15, 2017 07:57
[2017-03-15 08:00] VITALS: BP 108/56
[2017-03-15] MEDS: Multivitamin w/Minerals tab ORAL SCH (09:12)
[2017-03-15] MEDS: Midodrine 10mg tab GT SCH ×3 (09:12→18:39)
[2017-03-15] MEDS: Digoxin 0.125mg tab GT SCH (09:12)
[2017-03-15] MEDS: levETIRAcetam 500mg/5ml Liquid GT SCH ×2 (09:13→20:05)
[2017-03-15 12:00] VITALS: BP 110/50
--- NOTE | 2017-03-15 12:10 | Infectious Diseases Prog Note ---
Assessment/Plan Assessment/Plan A: Tracheobronchitis pneumonia with pseudomonas Hemoptysis Positive blood culture with Bacillus likely contamination VDRF History of tongue cancer P: Continue Meropenem Subjective ROS Limited/Unobtainable: Yes Allergies: Coded Allergies: PENICILLINS (Verified Allergy, Unknown, 07/31/16) Objective Vital Signs Last 24 Hour Vital Signs Date Time Temp Pulse Resp B/P (MAP) Pulse Ox O2 Delivery O2 Flow Rate FiO2 03/15/17 10:40 73 12 40 03/15/17 09:16 93 12 40 03/15/17 09:12 83 03/15/17 08:00 97.5 83 19 108/56 100 Mechanical Ventilator 40 03/15/17 08:00 86 03/15/17 07:51 87 03/15/17 07:51 40 03/15/17 07:12 91 13 40 03/15/17 05:14 85 12 40 03/15/17 04:00 96 03/15/17 04:00 97.0 90 20 112/63 100 Mechanical Ventilator 40 03/15/17 04:00 40 03/15/17 03:45 81 12 40 03/15/17 01:20 89 12 40 03/15/17 00:16 88 15 40 03/15/17 00:00 97.8 87 18 116/68 100 Mechanical Ventilator 40 03/15/17 00:00 40 03/15/17 00:00 86 03/14/17 21:20 76 13 40 03/14/17 20:00 85 03/14/17 20:00 40 03/14/17 20:00 97.9 82 18 128/60 100 Mechanical Ventilator 40 03/14/17 19:00 83 14 40 03/14/17 16:59 80 12 40 03/14/17 16:00 66 03/14/17 16:00 40 03/14/17 16:00 98.7 71 12 100/55 100 Mechanical Ventilator 40 03/14/17 15:14 75 12 40 03/14/17 12:57 72 12 40 03/14/17 12:45 67 Height (Feet): 5 Height (Inches): 1.00 Weight (Pounds): 113 General Appearance: no acute distress HEENT: status post trach Respiratory/Chest: lungs clear, other - on ventilaror Cardiovascular: normal rate Abdomen: soft, non tender, other - GT feeding Extremities: no edema Neurologic/Psychiatric: other - sleeping Current Medications Medications (Trade) Dose Ordered Sig/Josiah Route PRN Reason Start Time Stop Time Status Last Admin Dose Admin Acetaminophen (Tylenol) 650 mg Q4H PRN GT Pain Scale (3-5) 03/08/17 17:30 04/07/17 17:29 Amitriptyline HCl (Elavil) 10 mg BEDTIME GT 03/08/17 21:00 04/07/17 20:59 03/14/17 20:32 Digoxin (Lanoxin) 0.125 mg DAILY GT 03/09/17 09:00 04/08/17 08:59 03/15/17 09:12 Levetiracetam (Keppra) 500 mg Q12HR GT 03/08/17 21:00 04/07/17 20:59 03/15/17 09:13 Levothyroxine Sodium (Synthroid) 150 mcg DAILY GT 03/09/17 09:00 04/08/17 08:59 03/15/17 09:13 Meropenem 500 mg/ Sodium Chloride 55 ml @ 110 mls/hr EVERY 8 HOURS IVPB 03/14/17 14:00 03/19/17 13:59 03/15/17 05:23 Midodrine (Pro-Amatine) 10 mg THREE TIMES A DAY GT 03/08/17 18:00 04/07/17 17:59 03/15/17 09:12 Multivitamins Therapeutic (Therapeutic Multivitamin) 1 ea DAILY ORAL 03/09/17 09:00 04/08/17 08:59 03/15/17 09:12 Ondansetron HCl (Zofran) 4 mg Q6H PRN GT Nausea & Vomiting 03/08/17 17:30 04/07/17 17:29 JENNIFER MCKEE Mar 15, 2017 12:10
[2017-03-15 16:00] VITALS: BP 98/50
--- NOTE | 2017-03-15 16:33 | Pulmonology Progress Note ---
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 GT, trach PLAN care noted respiratory care as is- no needed changes soft tip catheter for home use- son aware Ventilatory support as is home meds noted supportive care as outlined suction with caution no wean for now oxygen therapy noted trach change monthly monitor labs prognosis guarded dc planning impression, plan, and exam edited and reviewed in detail care discussed with RN Subjective ROS Limited/Unobtainable: Yes Allergies: Coded Allergies: PENICILLINS (Verified Allergy, Unknown, 07/31/16) Subjective care noted stable overall on the ventilator no recurrence of bleeding Objective Last 24 Hour Vital Signs Date Time Temp Pulse Resp B/P (MAP) Pulse Ox O2 Delivery O2 Flow Rate FiO2 03/15/17 16:00 40 03/15/17 16:00 84 03/15/17 15:27 88 12 40 03/15/17 13:06 75 12 40 03/15/17 12:00 80 03/15/17 12:00 97.5 80 18 110/50 99 Mechanical Ventilator 40 03/15/17 12:00 40 03/15/17 10:40 73 12 40 03/15/17 09:16 93 12 40 03/15/17 09:12 83 03/15/17 08:00 97.5 83 19 108/56 100 Mechanical Ventilator 40 03/15/17 08:00 86 03/15/17 07:51 87 03/15/17 07:51 40 03/15/17 07:12 91 13 40 03/15/17 05:14 85 12 40 03/15/17 04:00 96 03/15/17 04:00 97.0 90 20 112/63 100 Mechanical Ventilator 40 03/15/17 04:00 40 03/15/17 03:45 81 12 40 03/15/17 01:20 89 12 40 03/15/17 00:16 88 15 40 03/15/17 00:00 97.8 87 18 116/68 100 Mechanical Ventilator 40 03/15/17 00:00 40 03/15/17 00:00 86 03/14/17 21:20 76 13 40 03/14/17 20:00 85 03/14/17 20:00 40 03/14/17 20:00 97.9 82 18 128/60 100 Mechanical Ventilator 40 03/14/17 19:00 83 14 40 03/14/17 16:59 80 12 40 Intake and Output 03/15/17 03/16/17 19:00 07:00 Intake Total 500 ml Balance 500 ml Intake Free Water 100 ml Tube Feeding 400 ml Objective WDWN female NAD trach clear breath sounds bilaterally without rhonchi or wheeze [id number] without MRG NABS nontender no HSM; GT no CCE nonfocal diffusely weak confused Current Medications Medications (Trade) Dose Ordered Sig/Josiah Route PRN Reason Start Time Stop Time Status Last Admin Dose Admin Acetaminophen (Tylenol) 650 mg Q4H PRN GT Pain Scale (3-5) 03/08/17 17:30 04/07/17 17:29 Amitriptyline HCl (Elavil) 10 mg BEDTIME GT 03/08/17 21:00 04/07/17 20:59 03/14/17 20:32 Digoxin (Lanoxin) 0.125 mg DAILY GT 03/09/17 09:00 04/08/17 08:59 03/15/17 09:12 Levetiracetam (Keppra) 500 mg Q12HR GT 03/08/17 21:00 04/07/17 20:59 03/15/17 09:13 Levothyroxine Sodium (Synthroid) 150 mcg DAILY GT 03/09/17 09:00 04/08/17 08:59 03/15/17 09:13 Meropenem 500 mg/ Sodium Chloride 55 ml @ 110 mls/hr EVERY 8 HOURS IVPB 03/14/17 14:00 03/19/17 13:59 03/15/17 13:43 Midodrine (Pro-Amatine) 10 mg THREE TIMES A DAY GT 03/08/17 18:00 04/07/17 17:59 03/15/17 13:43 Multivitamins Therapeutic (Therapeutic Multivitamin) 1 ea DAILY ORAL 03/09/17 09:00 04/08/17 08:59 03/15/17 09:12 Ondansetron HCl (Zofran) 4 mg Q6H PRN GT Nausea & Vomiting 03/08/17 17:30 04/07/17 17:29 MARCY MAJOR Mar 15, 2017 16:33
[2017-03-15 20:00] VITALS: BP 108/72
--- NOTE | 2017-03-15 23:29 | Cardiology Report ---
APPROVED REPORT EKG Measurement Heart [id number] PA 128P [id number] Ectopic atrial rhythm Normal ECG
[2017-03-16] VITALS: BP 116/82
[2017-03-16 04:00] VITALS: BP 121/76
[2017-03-16] MEDS: Meropenem 500 MG in NS 55 ML IVPB SCH ×3 (05:15→21:15)
[2017-03-16 08:00] VITALS: BP 93/51
--- NOTE | 2017-03-16 08:45 | Pulmonology Progress Note ---
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 GT, trach PLAN care noted respiratory care as is- no needed changes soft tip catheter for home use- son aware Ventilatory support as is home meds noted supportive care as outlined suction with caution no wean for now oxygen therapy noted trach change monthly monitor labs prognosis guarded dc planning impression, plan, and exam edited and reviewed in detail care discussed with RN Subjective ROS Limited/Unobtainable: Yes Allergies: Coded Allergies: PENICILLINS (Verified Allergy, Unknown, 07/31/16) Subjective care noted same on vent ID noted no recurrence of bleeding Objective Last 24 Hour Vital Signs Date Time Temp Pulse Resp B/P (MAP) Pulse Ox O2 Delivery O2 Flow Rate FiO2 03/16/17 07:44 40 03/16/17 06:46 77 12 40 03/16/17 05:03 80 12 40 03/16/17 04:00 86 03/16/17 04:00 97.6 78 18 121/76 98 Mechanical Ventilator 40 03/16/17 04:00 40 03/16/17 03:05 85 12 40 03/16/17 01:08 77 12 40 03/16/17 00:00 97.9 82 19 116/82 98 Mechanical Ventilator 40 03/16/17 00:00 40 03/16/17 00:00 82 03/15/17 22:49 82 12 40 03/15/17 20:55 79 12 40 03/15/17 20:00 40 03/15/17 20:00 87 03/15/17 20:00 98.0 78 18 108/72 99 Mechanical Ventilator 40 03/15/17 18:50 86 13 40 03/15/17 17:21 81 12 40 03/15/17 16:00 40 03/15/17 16:00 84 03/15/17 16:00 98.0 80 18 98/50 99 Mechanical Ventilator 40 03/15/17 15:27 88 12 40 03/15/17 13:06 75 12 40 03/15/17 12:00 80 03/15/17 12:00 97.5 80 18 110/50 99 Mechanical Ventilator 40 03/15/17 12:00 40 03/15/17 10:40 73 12 40 03/15/17 09:16 93 12 40 03/15/17 09:12 83 Objective WDWN female NAD trach clear breath sounds bilaterally without rhonchi or wheeze [id number] without MRG NABS nontender no HSM; GT no CCE nonfocal diffusely weak confused Current Medications Medications (Trade) Dose Ordered Sig/Josiah Route PRN Reason Start Time Stop Time Status Last Admin Dose Admin Acetaminophen (Tylenol) 650 mg Q4H PRN GT Pain Scale (3-5) 03/08/17 17:30 04/07/17 17:29 Amitriptyline HCl (Elavil) 10 mg BEDTIME GT 03/08/17 21:00 04/07/17 20:59 03/15/17 20:06 Digoxin (Lanoxin) 0.125 mg DAILY GT 03/09/17 09:00 04/08/17 08:59 03/15/17 09:12 Levetiracetam (Keppra) 500 mg Q12HR GT 03/08/17 21:00 04/07/17 20:59 03/15/17 20:05 Levothyroxine Sodium (Synthroid) 150 mcg DAILY GT 03/09/17 09:00 04/08/17 08:59 03/15/17 09:13 Meropenem 500 mg/ Sodium Chloride 55 ml @ 110 mls/hr EVERY 8 HOURS IVPB 03/14/17 14:00 03/19/17 13:59 03/16/17 05:15 Midodrine (Pro-Amatine) 10 mg THREE TIMES A DAY GT 03/08/17 18:00 04/07/17 17:59 03/15/17 18:39 Multivitamins Therapeutic (Therapeutic Multivitamin) 1 ea DAILY ORAL 03/09/17 09:00 04/08/17 08:59 03/15/17 09:12 Ondansetron HCl (Zofran) 4 mg Q6H PRN GT Nausea & Vomiting 03/08/17 17:30 04/07/17 17:29 MARCY MAJOR Mar 16, 2017 08:45
--- NOTE | 2017-03-16 09:41 | General Progress Note ---
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 ICD Codes: J95.01 - Hemorrhage from tracheostomy stoma SNOMED: 83272059 (4) Tongue malignant neoplasm ICD Codes: C02.9 - Malignant neoplasm of tongue, unspecified SNOMED: 426413502 (5) Lung nodule seen on imaging study ICD Codes: R91.1 - Solitary pulmonary nodule SNOMED: 041818474 (6) Respiratory failure ICD Codes: J96.90 - Respiratory failure, unspecified, unspecified whether with hypoxia or hypercapnia SNOMED: 242838182 Status: stable, progressing Assessment/Plan cont iv abx resp care vent no wean monitor for hemoptysis gentle suctioning with red yadira gt feeds skin care pulm follow up d.w son. updated on poc dc planning once able to convert to po abx will follow up with id check labs in am Subjective ROS Limited/Unobtainable: No Constitutional: Reports: malaise, weakness HEENT: Reports: no symptoms Cardiovascular: Reports: no symptoms Respiratory: Reports: cough Gastrointestinal/Abdominal: Reports: difficulty swallowing Genitourinary: Reports: no symptoms Neurologic/Psychiatric: Reports: pre-existing deficit Endocrine: Reports: no symptoms Hematologic/Lymphatic: Reports: no symptoms Allergies: Coded Allergies: PENICILLINS (Verified Allergy, Unknown, 07/31/16) All Systems: reviewed and negative except above Subjective no hemoptysis. id noted. on meropenem Objective Last 24 Hour Vital Signs Date Time Temp Pulse Resp B/P (MAP) Pulse Ox O2 Delivery O2 Flow Rate FiO2 03/16/17 09:05 77 12 40 03/16/17 07:44 40 03/16/17 06:46 77 12 40 03/16/17 05:03 80 12 40 03/16/17 04:00 86 03/16/17 04:00 97.6 78 18 121/76 98 Mechanical Ventilator 40 03/16/17 04:00 40 03/16/17 03:05 85 12 40 03/16/17 01:08 77 12 40 03/16/17 00:00 97.9 82 19 116/82 98 Mechanical Ventilator 40 03/16/17 00:00 40 03/16/17 00:00 82 03/15/17 22:49 82 12 40 03/15/17 20:55 79 12 40 03/15/17 20:00 40 03/15/17 20:00 87 03/15/17 20:00 98.0 78 18 108/72 99 Mechanical Ventilator 40 03/15/17 18:50 86 13 40 03/15/17 17:21 81 12 40 03/15/17 16:00 40 03/15/17 16:00 84 03/15/17 16:00 98.0 80 18 98/50 99 Mechanical Ventilator 40 03/15/17 15:27 88 12 40 03/15/17 13:06 75 12 40 03/15/17 12:00 80 03/15/17 12:00 97.5 80 18 110/50 99 Mechanical Ventilator 40 03/15/17 12:00 40 03/15/17 10:40 73 12 40 Height (Feet): 5 Height (Inches): 1.00 Weight (Pounds): 113 Objective General: The patient is a well-developed, thin female, in no apparent distress. She is arousable and is able to follow some simple commands. NECK: Supple. Trach site is clean. HEART: Regular rate and rhythm. LUNGS: Significant for few scattered rhonchi. ABDOMEN: Soft, nontender, and nondistended. EXTREMITIES: Without clubbing, cyanosis, or edema. CHRISTINA HAMMOND Mar 16, 2017 09:41
[2017-03-16] MEDS: levETIRAcetam 500mg/5ml Liquid GT SCH ×2 (09:53→21:14)
[2017-03-16] MEDS: Midodrine 10mg tab GT SCH ×3 (09:54→17:37)
[2017-03-16] MEDS: Multivitamin w/Minerals tab ORAL SCH (09:54)
[2017-03-16] MEDS: Digoxin 0.125mg tab GT SCH (09:54)
--- NOTE | 2017-03-16 11:48 | Infectious Diseases Prog Note ---
Assessment/Plan Assessment/Plan antibiotics : meropenem A 1. pseudomonas pneumonia 2. + blood cultures with bacillus likely contaminated 3. metastatic lung cancer 4. respiratory failure P 1. continue meropenem 4 more days 2. will follow up cultures Subjective ROS Limited/Unobtainable: Yes Allergies: Coded Allergies: PENICILLINS (Verified Allergy, Unknown, 07/31/16) Objective Vital Signs Last 24 Hour Vital Signs Date Time Temp Pulse Resp B/P (MAP) Pulse Ox O2 Delivery O2 Flow Rate FiO2 03/16/17 11:40 80 12 40 03/16/17 09:54 78 03/16/17 09:05 77 12 40 03/16/17 08:00 76 03/16/17 08:00 97.9 78 12 93/51 100 Mechanical Ventilator 40 03/16/17 07:44 40 03/16/17 06:46 77 12 40 03/16/17 05:03 80 12 40 03/16/17 04:00 86 03/16/17 04:00 97.6 78 18 121/76 98 Mechanical Ventilator 40 03/16/17 04:00 40 03/16/17 03:05 85 12 40 03/16/17 01:08 77 12 40 03/16/17 00:00 97.9 82 19 116/82 98 Mechanical Ventilator 40 03/16/17 00:00 40 03/16/17 00:00 82 03/15/17 22:49 82 12 40 03/15/17 20:55 79 12 40 03/15/17 20:00 40 03/15/17 20:00 87 03/15/17 20:00 98.0 78 18 108/72 99 Mechanical Ventilator 40 03/15/17 18:50 86 13 40 03/15/17 17:21 81 12 40 03/15/17 16:00 40 03/15/17 16:00 84 03/15/17 16:00 98.0 80 18 98/50 99 Mechanical Ventilator 40 03/15/17 15:27 88 12 40 03/15/17 13:06 75 12 40 03/15/17 12:00 80 03/15/17 12:00 97.5 80 18 110/50 99 Mechanical Ventilator 40 03/15/17 12:00 40 Height (Feet): 5 Height (Inches): 1.00 Weight (Pounds): 113 HEENT: status post trach Respiratory/Chest: lungs clear Cardiovascular: normal rate, regular rhythm, no gallop/murmur Abdomen: soft, non tender, other - GT Extremities: no edema MARA BLOCK Mar 16, 2017 11:48
[2017-03-16 12:12] VITALS: BP 115/60
[2017-03-16 16:00] VITALS: BP 114/62
[2017-03-16 20:00] VITALS: BP 125/62
[2017-03-17 00:41] VITALS: BP 113/57
[2017-03-17 04:00] VITALS: BP 112/54
[2017-03-17] MEDS: Meropenem 500 MG in NS 55 ML IVPB SCH ×3 (06:00→21:38)
[2017-03-17 06:30] LABS: BASOPHILS % (AUTO) 0.9 % (0.0-2.0); EOSINOPHILS % (AUTO) 3.8 % (0.0-3.0); LYMPHOCYTES % (AUTO) 15.6 % (20.0-45.0); MEAN CORPUSCULAR HEMOGLOBIN 29.6 PG (27.0-31.0); MEAN CORPUSCULAR HGB CONC 32.5 G/DL (32.0-36.0); MEAN CORPUSCULAR VOLUME 91 FL (80-99); MEAN PLATELET VOLUME 6.5 FL (6.5-10.1); MONOCYTES % (AUTO) 8.7 % (1.0-10.0); PLATELET COUNT 281 K/UL (150-450); RED BLOOD COUNT 3.59 M/UL (4.20-5.40); RED CELL DISTRIBUTION WIDTH 12.3 % (11.6-14.8); WHITE BLOOD COUNT 10.6 K/UL (4.8-10.8)
[2017-03-17 06:57] LABS: ALANINE AMINOTRANSFERASE 18 U/L (12-78); ALBUMIN/GLOBULIN RATIO 0.6 (1.0-2.7); ANION GAP 2 (5-15); ASPARTATE AMINO TRANSFERASE 31 U/L (15-37); CALCIUM 9.8 MG/DL (8.5-10.1); CARBON DIOXIDE 31 MMOL/L (21-32); CHLORIDE 101 MMOL/L (98-107); CREATININE 0.6 MG/DL (0.55-1.30); POTASSIUM 4.4 MMOL/L (3.5-5.1); SODIUM 134 MMOL/L (136-145); TOTAL PROTEIN 7.2 G/DL (6.4-8.2)
[2017-03-17 08:00] VITALS: BP 104/62
--- NOTE | 2017-03-17 09:08 | Pulmonology Progress Note ---
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 GT, trach PLAN care noted respiratory care as is- no needed changes for now soft tip catheter for home use- son aware Ventilatory support as is home meds noted supportive care as outlined suction with caution and monitor for bleeding no wean for now oxygen therapy noted trach change monthly monitor labs prognosis guarded dc planning per son and Dr. Madrigal impression, plan, and exam edited and reviewed in detail care discussed with RN Subjective ROS Limited/Unobtainable: Yes Allergies: Coded Allergies: PENICILLINS (Verified Allergy, Unknown, 07/31/16) Subjective care noted same on vent ID noted no recurrence of bleeding Objective Last 24 Hour Vital Signs Date Time Temp Pulse Resp B/P (MAP) Pulse Ox O2 Delivery O2 Flow Rate FiO2 03/17/17 06:56 87 16 40 03/17/17 05:05 93 16 40 03/17/17 04:00 91 03/17/17 04:00 40 03/17/17 04:00 99.4 92 14 112/54 96 Mechanical Ventilator 40.0 03/17/17 03:27 91 13 40 03/17/17 01:10 92 15 40 03/17/17 00:41 99.3 95 15 113/57 100 Mechanical Ventilator 40 03/17/17 00:00 95 03/17/17 00:00 40 03/16/17 23:03 94 15 40 03/16/17 21:29 96 16 40 03/16/17 20:00 98.7 93 14 125/62 100 Mechanical Ventilator 40 03/16/17 20:00 88 03/16/17 20:00 40 03/16/17 19:00 86 15 40 03/16/17 17:16 85 17 40 03/16/17 16:02 40 03/16/17 16:00 97.9 88 14 114/62 100 Mechanical Ventilator 40 03/16/17 16:00 80 03/16/17 15:54 84 12 40 03/16/17 13:01 76 12 40 03/16/17 12:12 97.4 81 12 115/60 99 Mechanical Ventilator 40 03/16/17 12:00 40 03/16/17 12:00 82 03/16/17 11:40 80 12 40 03/16/17 09:54 78 Objective WDWN female NAD trach clear breath sounds bilaterally without rhonchi or wheeze [id number] without MRG NABS nontender no HSM; GT no CCE nonfocal diffusely weak confused Laboratory Tests 03/17/17 04:40: White Blood Count 10.6, Red Blood Count 3.59L, Hemoglobin 10.6L, Hematocrit 32.7L, Mean Corpuscular Volume 91, Mean Corpuscular Hemoglobin 29.6, Mean Corpuscular Hemoglobin Concent 32.5, Red Cell Distribution Width 12.3, Platelet Count 281, Mean Platelet Volume 6.5, Neutrophils (%) (Auto) 71.0, Lymphocytes (% ) (Auto) 15.6L, Monocytes (%) (Auto) 8.7, Eosinophils (%) (Auto) 3.8H, Basophils (%) (Auto) 0.9, Sodium Level 134L, Potassium Level 4.4, Chloride Level 101, Carbon Dioxide Level 31, Anion Gap 2L, Blood Urea Nitrogen 23H, Creatinine 0.6, Estimat Glomerular Filtration Rate , Glucose Level 116H, Calcium Level 9.8, Total Bilirubin 0.1L, Aspartate Amino Transf (AST/SGOT) 31, Alanine Aminotransferase (ALT/SGPT) 18, Alkaline Phosphatase 88, Total Protein 7.2, Albumin 2.8L, Globulin 4.4, Albumin/Globulin Ratio 0.6L Current Medications Medications (Trade) Dose Ordered Sig/Josiah Route PRN Reason Start Time Stop Time Status Last Admin Dose Admin Acetaminophen (Tylenol) 650 mg Q4H PRN GT Pain Scale (3-5) 03/08/17 17:30 04/07/17 17:29 Amitriptyline HCl (Elavil) 10 mg BEDTIME GT 03/08/17 21:00 04/07/17 20:59 03/16/17 21:14 Digoxin (Lanoxin) 0.125 mg DAILY GT 03/09/17 09:00 04/08/17 08:59 03/16/17 09:54 Levetiracetam (Keppra) 500 mg Q12HR GT 03/08/17 21:00 04/07/17 20:59 03/16/17 21:14 Levothyroxine Sodium (Synthroid) 150 mcg DAILY GT 03/09/17 09:00 04/08/17 08:59 03/16/17 09:54 Meropenem 500 mg/ Sodium Chloride 55 ml @ 110 mls/hr EVERY 8 HOURS IVPB 03/14/17 14:00 03/19/17 13:59 03/17/17 06:00 Midodrine (Pro-Amatine) 10 mg THREE TIMES A DAY GT 03/08/17 18:00 04/07/17 17:59 03/16/17 17:37 Multivitamins Therapeutic (Therapeutic Multivitamin) 1 ea DAILY ORAL 03/09/17 09:00 04/08/17 08:59 03/16/17 09:54 Ondansetron HCl (Zofran) 4 mg Q6H PRN GT Nausea & Vomiting 03/08/17 17:30 04/07/17 17:29 MARCY MAJOR Mar 17, 2017 09:08
[2017-03-17] MEDS: Midodrine 10mg tab GT SCH ×3 (09:34→17:35)
[2017-03-17] MEDS: levETIRAcetam 500mg/5ml Liquid GT SCH ×2 (09:34→21:38)
[2017-03-17] MEDS: Multivitamin w/Minerals tab ORAL SCH (09:35)
[2017-03-17] MEDS: Digoxin 0.125mg tab GT SCH (09:35)
--- NOTE | 2017-03-17 10:10 | General Progress Note ---
Assessment/Plan Problem List: (1) Sepsis ICD Codes: A41.9 - Sepsis, unspecified organism SNOMED: 30114645 (2) Seizures ICD Codes: R56.9 - Unspecified convulsions SNOMED: 11169288 (3) Hemorrhage from tracheostomy stoma ICD Codes: J95.01 - Hemorrhage from tracheostomy stoma SNOMED: 72690795 (4) Tongue malignant neoplasm ICD Codes: C02.9 - Malignant neoplasm of tongue, unspecified SNOMED: 246808458 (5) Lung nodule seen on imaging study ICD Codes: R91.1 - Solitary pulmonary nodule SNOMED: 237736224 (6) Respiratory failure ICD Codes: J96.90 - Respiratory failure, unspecified, unspecified whether with hypoxia or hypercapnia SNOMED: 230262845 Status: stable, progressing Assessment/Plan cont iv abx resp care vent no wean monitor for hemoptysis gentle suctioning with red yadira gt feeds skin care pulm follow up d.w son. updated on poc dc planning sunday after last dise abx will follow up with id check labs in am Subjective ROS Limited/Unobtainable: No Constitutional: Reports: malaise, weakness HEENT: Reports: no symptoms Cardiovascular: Reports: no symptoms Respiratory: Reports: cough, shortness of breath, sputum Gastrointestinal/Abdominal: Reports: difficulty swallowing Genitourinary: Reports: no symptoms Neurologic/Psychiatric: Reports: no symptoms Endocrine: Reports: no symptoms Hematologic/Lymphatic: Reports: anemia Allergies: Coded Allergies: PENICILLINS (Verified Allergy, Unknown, 07/31/16) All Systems: reviewed and negative except above Subjective no hemoptysis. id noted. on meropenem x 3 more days Objective Last 24 Hour Vital Signs Date Time Temp Pulse Resp B/P (MAP) Pulse Ox O2 Delivery O2 Flow Rate FiO2 03/17/17 09:35 87 03/17/17 09:21 88 13 40 03/17/17 08:00 40 03/17/17 08:00 89 03/17/17 08:00 98.1 89 14 104/62 100 Mechanical Ventilator 40 03/17/17 06:56 87 16 40 03/17/17 05:05 93 16 40 03/17/17 04:00 91 03/17/17 04:00 40 03/17/17 04:00 99.4 92 14 112/54 96 Mechanical Ventilator 40.0 03/17/17 03:27 91 13 40 03/17/17 01:10 92 15 40 03/17/17 00:41 99.3 95 15 113/57 100 Mechanical Ventilator 40 03/17/17 00:00 95 03/17/17 00:00 40 03/16/17 23:03 94 15 40 03/16/17 21:29 96 16 40 03/16/17 20:00 98.7 93 14 125/62 100 Mechanical Ventilator 40 03/16/17 20:00 88 03/16/17 20:00 40 03/16/17 19:00 86 15 40 03/16/17 17:16 85 17 40 03/16/17 16:02 40 03/16/17 16:00 97.9 88 14 114/62 100 Mechanical Ventilator 40 03/16/17 16:00 80 03/16/17 15:54 84 12 40 03/16/17 13:01 76 12 40 03/16/17 12:12 97.4 81 12 115/60 99 Mechanical Ventilator 40 03/16/17 12:00 40 03/16/17 12:00 82 03/16/17 11:40 80 12 40 Laboratory Tests 03/17/17 04:40: White Blood Count 10.6, Red Blood Count 3.59L, Hemoglobin 10.6L, Hematocrit 32.7L, Mean Corpuscular Volume 91, Mean Corpuscular Hemoglobin 29.6, Mean Corpuscular Hemoglobin Concent 32.5, Red Cell Distribution Width 12.3, Platelet Count 281, Mean Platelet Volume 6.5, Neutrophils (%) (Auto) 71.0, Lymphocytes (% ) (Auto) 15.6L, Monocytes (%) (Auto) 8.7, Eosinophils (%) (Auto) 3.8H, Basophils (%) (Auto) 0.9, Sodium Level 134L, Potassium Level 4.4, Chloride Level 101, Carbon Dioxide Level 31, Anion Gap 2L, Blood Urea Nitrogen 23H, Creatinine 0.6, Estimat Glomerular Filtration Rate , Glucose Level 116H, Calcium Level 9.8, Total Bilirubin 0.1L, Aspartate Amino Transf (AST/SGOT) 31, Alanine Aminotransferase (ALT/SGPT) 18, Alkaline Phosphatase 88, Total Protein 7.2, Albumin 2.8L, Globulin 4.4, Albumin/Globulin Ratio 0.6L Height (Feet): 5 Height (Inches): 1.00 Weight (Pounds): 113 Objective General: The patient is a well-developed, thin female, in no apparent distress. She is arousable and is able to follow some simple commands. NECK: Supple. Trach site is clean. HEART: Regular rate and rhythm. LUNGS: Significant for few scattered rhonchi. ABDOMEN: Soft, nontender, and nondistended. EXTREMITIES: Without clubbing, cyanosis, or edema. CHRISTINA HAMMOND Mar 17, 2017 10:10
[2017-03-17 12:00] VITALS: BP 114/60
[2017-03-17 16:00] VITALS: BP 116/50
[2017-03-17] MEDS ORDERED: NS 275ml ONE (16:21)
[2017-03-17 20:00] VITALS: BP 108/50
[2017-03-18] VITALS: BP 122/61
[2017-03-18 04:00] VITALS: BP 102/56
[2017-03-18] MEDS: Meropenem 500 MG in NS 55 ML IVPB SCH ×3 (05:35→21:04)
--- NOTE | 2017-03-18 07:24 | Infectious Diseases Prog Note ---
Assessment/Plan Assessment/Plan A: Tracheobronchitis pneumonia with pseudomonas Hemoptysis Positive blood culture with Bacillus likely contamination VDRF History of tongue cancer P: Continue Meropenem X 2 more days Subjective ROS Limited/Unobtainable: Yes Allergies: Coded Allergies: PENICILLINS (Verified Allergy, Unknown, 07/31/16) Objective Vital Signs Last 24 Hour Vital Signs Date Time Temp Pulse Resp B/P (MAP) Pulse Ox O2 Delivery O2 Flow Rate FiO2 03/18/17 06:43 84 12 40 03/18/17 05:04 89 12 40 03/18/17 04:00 92 03/18/17 04:00 99.0 100 12 102/56 99 Mechanical Ventilator 40 03/18/17 04:00 40 03/18/17 03:28 92 14 40 03/18/17 00:38 101 14 40 03/18/17 00:00 96 03/18/17 00:00 99.4 100 13 122/61 99 Mechanical Ventilator 40 03/17/17 23:12 92 12 40 03/17/17 20:57 82 12 40 03/17/17 20:00 99.6 85 16 108/50 100 Mechanical Ventilator 40 03/17/17 20:00 91 03/17/17 20:00 40 03/17/17 19:02 84 13 40 03/17/17 17:17 85 12 40 03/17/17 16:00 81 03/17/17 16:00 40 03/17/17 16:00 99.1 87 12 116/50 100 Mechanical Ventilator 40 03/17/17 15:21 89 13 40 03/17/17 13:08 85 12 40 03/17/17 12:00 85 03/17/17 12:00 40 03/17/17 12:00 98.0 77 12 114/60 100 Mechanical Ventilator 40 03/17/17 11:23 83 12 40 03/17/17 09:35 87 03/17/17 09:21 88 13 40 03/17/17 08:00 40 03/17/17 08:00 89 03/17/17 08:00 98.1 89 14 104/62 100 Mechanical Ventilator 40 Height (Feet): 5 Height (Inches): 1.00 Weight (Pounds): 113 General Appearance: no acute distress HEENT: status post trach Respiratory/Chest: lungs clear Cardiovascular: normal rate Abdomen: soft, non tender, other - GT feeding Extremities: no edema Neurologic/Psychiatric: other - sleeping Current Medications Medications (Trade) Dose Ordered Sig/Josiah Route PRN Reason Start Time Stop Time Status Last Admin Dose Admin Acetaminophen (Tylenol) 650 mg Q4H PRN GT Pain Scale (3-5) 03/08/17 17:30 04/07/17 17:29 Amitriptyline HCl (Elavil) 10 mg BEDTIME GT 03/08/17 21:00 04/07/17 20:59 03/17/17 21:38 Digoxin (Lanoxin) 0.125 mg DAILY GT 03/09/17 09:00 04/08/17 08:59 03/17/17 09:35 Levetiracetam (Keppra) 500 mg Q12HR GT 03/08/17 21:00 04/07/17 20:59 03/17/17 21:38 Levothyroxine Sodium (Synthroid) 150 mcg DAILY GT 03/09/17 09:00 04/08/17 08:59 03/17/17 09:35 Meropenem 500 mg/ Sodium Chloride 55 ml @ 110 mls/hr EVERY 8 HOURS IVPB 03/14/17 14:00 03/19/17 13:59 03/18/17 05:35 Midodrine (Pro-Amatine) 10 mg THREE TIMES A DAY GT 03/08/17 18:00 04/07/17 17:59 03/17/17 17:35 Multivitamins Therapeutic (Therapeutic Multivitamin) 1 ea DAILY ORAL 03/09/17 09:00 04/08/17 08:59 03/17/17 09:35 Ondansetron HCl (Zofran) 4 mg Q6H PRN GT Nausea & Vomiting 03/08/17 17:30 04/07/17 17:29 JENNIFER MCKEE Mar 18, 2017 07:24
[2017-03-18 08:00] VITALS: BP 107/62
[2017-03-18] MEDS: Multivitamin w/Minerals tab ORAL SCH (08:47)
[2017-03-18] MEDS: Digoxin 0.125mg tab GT SCH (08:47)
[2017-03-18] MEDS: levETIRAcetam 500mg/5ml Liquid GT SCH ×2 (08:47→21:00)
[2017-03-18] MEDS: Midodrine 10mg tab GT SCH ×3 (08:47→17:36)
--- NOTE | 2017-03-18 11:41 | General Progress Note ---
Assessment/Plan Problem List: (1) Sepsis ICD Codes: A41.9 - Sepsis, unspecified organism SNOMED: 86034164 (2) Seizures ICD Codes: R56.9 - Unspecified convulsions SNOMED: 04183159 (3) Hemorrhage from tracheostomy stoma ICD Codes: J95.01 - Hemorrhage from tracheostomy stoma SNOMED: 17029403 (4) Tongue malignant neoplasm ICD Codes: C02.9 - Malignant neoplasm of tongue, unspecified SNOMED: 357519225 (5) Lung nodule seen on imaging study ICD Codes: R91.1 - Solitary pulmonary nodule SNOMED: 382445643 (6) Respiratory failure ICD Codes: J96.90 - Respiratory failure, unspecified, unspecified whether with hypoxia or hypercapnia SNOMED: 580730849 Status: stable Assessment/Plan cont iv abx till tomorrow resp care vent no wean monitor for hemoptysis gentle suctioning with red yadira- RT to order gt feeds skin care pulm follow up d.w son. updated on poc dc planning sunday after last dose abx will follow up with id check labs in am Subjective ROS Limited/Unobtainable: No Constitutional: Reports: malaise, weakness HEENT: Reports: no symptoms Cardiovascular: Reports: no symptoms Respiratory: Reports: cough, sputum Gastrointestinal/Abdominal: Reports: difficulty swallowing Genitourinary: Reports: no symptoms Neurologic/Psychiatric: Reports: pre-existing deficit Endocrine: Reports: no symptoms Hematologic/Lymphatic: Reports: anemia Allergies: Coded Allergies: PENICILLINS (Verified Allergy, Unknown, 07/31/16) All Systems: reviewed and negative except above Subjective + hemoptysis. id noted. on meropenem x 2 more days. not being suctioned with red yadira as requested Objective Last 24 Hour Vital Signs Date Time Temp Pulse Resp B/P (MAP) Pulse Ox O2 Delivery O2 Flow Rate FiO2 03/18/17 11:04 81 12 40 03/18/17 08:47 83 03/18/17 08:39 85 12 40 03/18/17 08:00 98.0 96 18 107/62 99 Mechanical Ventilator 40 03/18/17 08:00 82 03/18/17 08:00 40 03/18/17 06:43 84 12 40 03/18/17 05:04 89 12 40 03/18/17 04:00 92 03/18/17 04:00 99.0 100 12 102/56 99 Mechanical Ventilator 40 03/18/17 04:00 40 03/18/17 03:28 92 14 40 03/18/17 00:38 101 14 40 03/18/17 00:00 96 03/18/17 00:00 99.4 100 13 122/61 99 Mechanical Ventilator 40 03/17/17 23:12 92 12 40 03/17/17 20:57 82 12 40 03/17/17 20:00 99.6 85 16 108/50 100 Mechanical Ventilator 40 03/17/17 20:00 91 03/17/17 20:00 40 03/17/17 19:02 84 13 40 03/17/17 17:17 85 12 40 03/17/17 16:00 81 03/17/17 16:00 40 03/17/17 16:00 99.1 87 12 116/50 100 Mechanical Ventilator 40 03/17/17 15:21 89 13 40 03/17/17 13:08 85 12 40 03/17/17 12:00 85 03/17/17 12:00 40 03/17/17 12:00 98.0 77 12 114/60 100 Mechanical Ventilator 40 Intake and Output 03/18/17 03/19/17 19:00 07:00 # Bowel Movements 1 Height (Feet): 5 Height (Inches): 1.00 Weight (Pounds): 113 Objective General: The patient is a well-developed, thin female, in no apparent distress. She is arousable and is able to follow some simple commands. NECK: Supple. Trach site is clean. HEART: Regular rate and rhythm. LUNGS: Significant for few scattered rhonchi. ABDOMEN: Soft, nontender, and nondistended. EXTREMITIES: Without clubbing, cyanosis, or edema. CHRISTINA HAMMOND Mar 18, 2017 11:41
[2017-03-18 12:00] VITALS: BP 103/51
--- NOTE | 2017-03-18 13:38 | Pulmonology Progress Note ---
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 GT, trach PLAN care noted respiratory care as is- no needed changes for now soft tip catheter for home use- son aware Ventilatory support as is home meds noted supportive care as outlined suction with caution and monitor for bleeding no wean planned oxygen therapy noted trach change monthly monitor labs prognosis guarded dc planning hope in am impression, plan, and exam edited and reviewed in detail care discussed with RN Subjective ROS Limited/Unobtainable: Yes Allergies: Coded Allergies: PENICILLINS (Verified Allergy, Unknown, 07/31/16) Subjective care noted same on vent ID noted no recurrence of bleeding dc in am Objective Last 24 Hour Vital Signs Date Time Temp Pulse Resp B/P (MAP) Pulse Ox O2 Delivery O2 Flow Rate FiO2 03/18/17 12:35 78 12 40 03/18/17 12:00 40 03/18/17 12:00 98.7 76 12 103/51 100 Mechanical Ventilator 40 03/18/17 11:04 81 12 40 03/18/17 08:47 83 03/18/17 08:39 85 12 40 03/18/17 08:00 98.0 96 18 107/62 99 Mechanical Ventilator 40 03/18/17 08:00 82 03/18/17 08:00 40 03/18/17 06:43 84 12 40 03/18/17 05:04 89 12 40 03/18/17 04:00 92 03/18/17 04:00 99.0 100 12 102/56 99 Mechanical Ventilator 40 03/18/17 04:00 40 03/18/17 03:28 92 14 40 03/18/17 00:38 101 14 40 03/18/17 00:00 96 03/18/17 00:00 99.4 100 13 122/61 99 Mechanical Ventilator 40 03/17/17 23:12 92 12 40 03/17/17 20:57 82 12 40 03/17/17 20:00 99.6 85 16 108/50 100 Mechanical Ventilator 40 03/17/17 20:00 91 03/17/17 20:00 40 03/17/17 19:02 84 13 40 03/17/17 17:17 85 12 40 03/17/17 16:00 81 03/17/17 16:00 40 03/17/17 16:00 99.1 87 12 116/50 100 Mechanical Ventilator 40 03/17/17 15:21 89 13 40 Intake and Output 03/18/17 03/19/17 19:00 07:00 Intake Total 170 ml Balance 170 ml Intake Free Water 50 ml Tube Feeding 120 ml # Voids 1 # Bowel Movements 2 Objective WDWN female NAD trach clear breath sounds bilaterally without rhonchi or wheeze [id number] without MRG NABS nontender no HSM; GT no CCE nonfocal diffusely weak confused Current Medications Medications (Trade) Dose Ordered Sig/Josiah Route PRN Reason Start Time Stop Time Status Last Admin Dose Admin Acetaminophen (Tylenol) 650 mg Q4H PRN GT Pain Scale (3-5) 03/08/17 17:30 04/07/17 17:29 Amitriptyline HCl (Elavil) 10 mg BEDTIME GT 03/08/17 21:00 04/07/17 20:59 03/17/17 21:38 Digoxin (Lanoxin) 0.125 mg DAILY GT 03/09/17 09:00 04/08/17 08:59 03/18/17 08:47 Levetiracetam (Keppra) 500 mg Q12HR GT 03/08/17 21:00 04/07/17 20:59 03/18/17 08:47 Levothyroxine Sodium (Synthroid) 150 mcg DAILY GT 03/09/17 09:00 04/08/17 08:59 03/18/17 08:47 Meropenem 500 mg/ Sodium Chloride 55 ml @ 110 mls/hr EVERY 8 HOURS IVPB 03/14/17 14:00 03/19/17 13:59 03/18/17 05:35 Midodrine (Pro-Amatine) 10 mg THREE TIMES A DAY GT 03/08/17 18:00 04/07/17 17:59 03/18/17 08:47 Multivitamins Therapeutic (Therapeutic Multivitamin) 1 ea DAILY ORAL 03/09/17 09:00 04/08/17 08:59 03/18/17 08:47 Ondansetron HCl (Zofran) 4 mg Q6H PRN GT Nausea & Vomiting 03/08/17 17:30 04/07/17 17:29 MARCY MAJOR Mar 18, 2017 13:38
[2017-03-18 16:00] VITALS: BP 141/58
[2017-03-18 20:00] VITALS: BP 105/56
[2017-03-19] VITALS: BP 110/62
[2017-03-19 04:00] VITALS: BP 120/60
[2017-03-19] MEDS: Meropenem 500 MG in NS 55 ML IVPB SCH ×3 (05:38→21:35)
[2017-03-19 08:00] VITALS: BP 96/57
--- NOTE | 2017-03-19 08:42 | Pulmonology Progress Note ---
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 GT, trach PLAN care noted respiratory care as is- no needed changes for now soft tip catheter for home use- son aware Ventilatory support as is home meds noted supportive care as outlined suction with caution and monitor for bleeding no wean planned at present oxygen therapy noted trach change monthly monitor labs prognosis guarded dc planning today if cleared by all impression, plan, and exam edited and reviewed in detail care discussed with RN Subjective Allergies: Coded Allergies: PENICILLINS (Verified Allergy, Unknown, 07/31/16) Subjective care noted same on vent ID noted and reviewed no recurrence of bleeding dc planning Objective Last 24 Hour Vital Signs Date Time Temp Pulse Resp B/P (MAP) Pulse Ox O2 Delivery O2 Flow Rate FiO2 03/19/17 06:59 91 12 40 03/19/17 05:24 87 12 40 03/19/17 04:00 40 03/19/17 04:00 97.8 87 14 120/60 100 Mechanical Ventilator 40 03/19/17 04:00 85 03/19/17 03:46 85 12 40 03/19/17 01:00 84 12 40 03/19/17 00:00 40 03/19/17 00:00 87 03/19/17 00:00 98.0 62 13 110/62 100 Mechanical Ventilator 40 03/18/17 23:25 79 13 40 03/18/17 20:42 83 12 40 03/18/17 20:00 40 03/18/17 20:00 98.2 76 12 105/56 100 Mechanical Ventilator 40 03/18/17 20:00 74 03/18/17 19:22 74 12 40 03/18/17 16:49 99 17 40 03/18/17 16:00 75 03/18/17 16:00 40 03/18/17 16:00 98.1 85 18 141/58 100 Mechanical Ventilator 40 03/18/17 15:31 76 12 40 03/18/17 12:35 78 12 40 03/18/17 12:00 40 03/18/17 12:00 75 03/18/17 12:00 98.7 76 12 103/51 100 Mechanical Ventilator 40 03/18/17 11:04 81 12 40 03/18/17 08:47 83 Objective WDWN female NAD trach clear breath sounds bilaterally without rhonchi or wheeze [id number] without MRG NABS nontender no HSM; GT no CCE nonfocal diffusely weak confused Current Medications Medications (Trade) Dose Ordered Sig/Josiah Route PRN Reason Start Time Stop Time Status Last Admin Dose Admin Acetaminophen (Tylenol) 650 mg Q4H PRN GT Pain Scale (3-5) 03/08/17 17:30 04/07/17 17:29 Amitriptyline HCl (Elavil) 10 mg BEDTIME GT 03/08/17 21:00 04/07/17 20:59 03/17/17 21:38 Digoxin (Lanoxin) 0.125 mg DAILY GT 03/09/17 09:00 04/08/17 08:59 03/18/17 08:47 Levetiracetam (Keppra) 500 mg Q12HR GT 03/08/17 21:00 04/07/17 20:59 03/18/17 08:47 Levothyroxine Sodium (Synthroid) 150 mcg DAILY GT 03/09/17 09:00 04/08/17 08:59 03/18/17 08:47 Meropenem 500 mg/ Sodium Chloride 55 ml @ 110 mls/hr EVERY 8 HOURS IVPB 03/14/17 14:00 03/19/17 13:59 03/19/17 05:38 Midodrine (Pro-Amatine) 10 mg THREE TIMES A DAY GT 03/08/17 18:00 04/07/17 17:59 03/18/17 17:36 Multivitamins Therapeutic (Therapeutic Multivitamin) 1 ea DAILY ORAL 03/09/17 09:00 04/08/17 08:59 03/18/17 08:47 Ondansetron HCl (Zofran) 4 mg Q6H PRN GT Nausea & Vomiting 03/08/17 17:30 04/07/17 17:29 MARCY MAJOR Mar 19, 2017 08:41
[2017-03-19] MEDS: Digoxin 0.125mg tab GT SCH (09:08)
[2017-03-19] MEDS: levETIRAcetam 500mg/5ml Liquid GT SCH ×2 (09:09→21:35)
[2017-03-19] MEDS: Multivitamin w/Minerals tab ORAL SCH (09:09)
[2017-03-19] MEDS: Midodrine 10mg tab GT SCH ×3 (09:09→17:48)
--- NOTE | 2017-03-19 09:10 | Infectious Diseases Prog Note ---
Assessment/Plan Assessment/Plan A: Tracheobronchitis pneumonia with pseudomonas Hemoptysis Positive blood culture with Bacillus likely contamination VDRF History of tongue cancer P: Continue Meropenem X 1 more day Agree with discharge Subjective ROS Limited/Unobtainable: Yes Gastrointestinal/Abdominal: Reports: other - malfunctiong GT was changed today Allergies: Coded Allergies: PENICILLINS (Verified Allergy, Unknown, 07/31/16) Objective Vital Signs Last 24 Hour Vital Signs Date Time Temp Pulse Resp B/P (MAP) Pulse Ox O2 Delivery O2 Flow Rate FiO2 03/19/17 06:59 91 12 40 03/19/17 05:24 87 12 40 03/19/17 04:00 40 03/19/17 04:00 97.8 87 14 120/60 100 Mechanical Ventilator 40 03/19/17 04:00 85 03/19/17 03:46 85 12 40 03/19/17 01:00 84 12 40 03/19/17 00:00 40 03/19/17 00:00 87 03/19/17 00:00 98.0 62 13 110/62 100 Mechanical Ventilator 40 03/18/17 23:25 79 13 40 03/18/17 20:42 83 12 40 03/18/17 20:00 40 03/18/17 20:00 98.2 76 12 105/56 100 Mechanical Ventilator 40 03/18/17 20:00 74 03/18/17 19:22 74 12 40 03/18/17 16:49 99 17 40 03/18/17 16:00 75 03/18/17 16:00 40 03/18/17 16:00 98.1 85 18 141/58 100 Mechanical Ventilator 40 03/18/17 15:31 76 12 40 03/18/17 12:35 78 12 40 03/18/17 12:00 40 03/18/17 12:00 75 03/18/17 12:00 98.7 76 12 103/51 100 Mechanical Ventilator 40 03/18/17 11:04 81 12 40 Height (Feet): 5 Height (Inches): 1.00 Weight (Pounds): 113 General Appearance: no acute distress HEENT: status post trach Respiratory/Chest: lungs clear, other - on ventilator Cardiovascular: normal rate Abdomen: soft, non tender, other - GT in place Extremities: no edema Neurologic/Psychiatric: alert, responsive Current Medications Medications (Trade) Dose Ordered Sig/Josiah Route PRN Reason Start Time Stop Time Status Last Admin Dose Admin Acetaminophen (Tylenol) 650 mg Q4H PRN GT Pain Scale (3-5) 03/08/17 17:30 04/07/17 17:29 Amitriptyline HCl (Elavil) 10 mg BEDTIME GT 03/08/17 21:00 04/07/17 20:59 03/17/17 21:38 Digoxin (Lanoxin) 0.125 mg DAILY GT 03/09/17 09:00 04/08/17 08:59 03/18/17 08:47 Levetiracetam (Keppra) 500 mg Q12HR GT 03/08/17 21:00 04/07/17 20:59 03/18/17 08:47 Levothyroxine Sodium (Synthroid) 150 mcg DAILY GT 03/09/17 09:00 04/08/17 08:59 03/18/17 08:47 Meropenem 500 mg/ Sodium Chloride 55 ml @ 110 mls/hr EVERY 8 HOURS IVPB 03/14/17 14:00 03/19/17 13:59 03/19/17 05:38 Midodrine (Pro-Amatine) 10 mg THREE TIMES A DAY GT 03/08/17 18:00 04/07/17 17:59 03/18/17 17:36 Multivitamins Therapeutic (Therapeutic Multivitamin) 1 ea DAILY ORAL 03/09/17 09:00 04/08/17 08:59 03/18/17 08:47 Ondansetron HCl (Zofran) 4 mg Q6H PRN GT Nausea & Vomiting 03/08/17 17:30 04/07/17 17:29 JENNIFER MCKEE Mar 19, 2017 09:10
--- NOTE | 2017-03-19 10:02 | General Progress Note ---
Assessment/Plan Assessment/Plan GI CONSULT Patient seen GT changed at bedside. Thank you Yina Li MD Subjective Allergies: Coded Allergies: PENICILLINS (Verified Allergy, Unknown, 07/31/16) Objective Last 24 Hour Vital Signs Date Time Temp Pulse Resp B/P (MAP) Pulse Ox O2 Delivery O2 Flow Rate FiO2 03/19/17 09:25 84 12 40 03/19/17 09:08 86 03/19/17 08:00 97.5 83 18 96/57 99 Mechanical Ventilator 40 03/19/17 06:59 91 12 40 03/19/17 05:24 87 12 40 03/19/17 04:00 40 03/19/17 04:00 97.8 87 14 120/60 100 Mechanical Ventilator 40 03/19/17 04:00 85 03/19/17 03:46 85 12 40 03/19/17 01:00 84 12 40 03/19/17 00:00 40 03/19/17 00:00 87 03/19/17 00:00 98.0 62 13 110/62 100 Mechanical Ventilator 40 03/18/17 23:25 79 13 40 03/18/17 20:42 83 12 40 03/18/17 20:00 40 03/18/17 20:00 98.2 76 12 105/56 100 Mechanical Ventilator 40 03/18/17 20:00 74 03/18/17 19:22 74 12 40 03/18/17 16:49 99 17 40 03/18/17 16:00 75 03/18/17 16:00 40 03/18/17 16:00 98.1 85 18 141/58 100 Mechanical Ventilator 40 03/18/17 15:31 76 12 40 03/18/17 12:35 78 12 40 03/18/17 12:00 40 03/18/17 12:00 75 03/18/17 12:00 98.7 76 12 103/51 100 Mechanical Ventilator 40 03/18/17 11:04 81 12 40 Height (Feet): 5 Height (Inches): 1.00 Weight (Pounds): 113 YINA LI Mar 19, 2017 10:02
--- NOTE | 2017-03-19 10:16 | Diagnostic Imaging Report ---
Indication: Post gastrostomy replacement Technique: Supine view of the abdomen after injection of water-soluble contrast into gastrostomy Comparison: 11/28/2016 Findings: Contrast opacifies the stomach. No contrast extravasation is demonstrated. The bowel gas pattern is unremarkable. No significant change Impression: Satisfactory position of gastrostomy tube This agrees with the preliminary interpretation provided overnight by [facility] teleradiology service.
[2017-03-19 12:00] VITALS: BP 119/55
[2017-03-19 16:00] VITALS: BP 104/57
[2017-03-19 20:00] VITALS: BP 111/62
[2017-03-20] VITALS: BP 108/56
--- NOTE | 2017-03-20 00:15 | Discharge Summary ---
DATE OF ADMISSION: 03/08/2017 DATE OF DISCHARGE: 03/19/2017 ADMISSION DIAGNOSES: 1. Hemoptysis. 2. Pneumonia. 3. Sepsis. 4. Bacteremia. 5. Chronic respiratory failure. 6. History of head and neck cancer. 7. History of tracheostomy and gastrostomy tube. 8. Seizure disorder. DISCHARGE DIAGNOSES: 1. Hemoptysis. 2. Pneumonia. 3. Sepsis. 4. Bacteremia. 5. Chronic respiratory failure. 6. History of head and neck cancer. 7. History of tracheostomy and gastrostomy tube. 8. Seizure disorder. HISTORY: The patient is a pleasant female who complaints initially of hemoptysis. She was seen by ENT as well as pulmonary. She had a laryngoscopy as well as bronchoscopy done. Hemoptysis is believed to be secondary to aggressive suctioning and local trauma, it was recommended that she be suctioned through a red Jack catheter. Her hospital course was complicated by a bacteremia and sepsis. She had positive blood cultures. The patient was seen by Infectious Disease health care consultant and antibiotics were adjusted. She completed her IV antibiotics while in-house. On discharge, she was doing well. She will be discharged home with her son and home health. DISCHARGE MEDICATIONS: Please see discharge medication list for discharge medications. DIET: G-tube feeding. ACTIVITY: Ad-daren. FOLLOWUP: The patient to follow up in one to two weeks in the office. Rico Madrigal M.D. DR: IVONE JOB#: [id number] CC:
[2017-03-20 04:00] VITALS: BP 102/50
--- NOTE | 2017-03-20 07:31 | General Progress Note ---
Assessment/Plan Assessment/Plan Assessment - resp failure - s/p trach - dysphagia - s/p trach - h/o H&N CA - Sz d/o Recommendations - continue TF - GT care - Elevate HOB - follow labs and exam Subjective Allergies: Coded Allergies: PENICILLINS (Verified Allergy, Unknown, 07/31/16) Subjective comfortable tolerating TF no distress Objective Last 24 Hour Vital Signs Date Time Temp Pulse Resp B/P (MAP) Pulse Ox O2 Delivery O2 Flow Rate FiO2 03/20/17 06:57 77 12 40 03/20/17 06:05 81 12 40 03/20/17 04:00 40 03/20/17 04:00 97.0 84 20 102/50 89 Mechanical Ventilator 40.0 40 03/20/17 04:00 86 03/20/17 02:40 85 12 40 03/20/17 00:50 82 12 40 03/20/17 00:00 97.0 89 12 108/56 89 Mechanical Ventilator 40.0 40 03/20/17 00:00 83 03/20/17 00:00 40 03/19/17 22:46 87 12 40 03/19/17 21:14 90 12 40 03/19/17 20:00 97.0 85 16 111/62 95 Mechanical Ventilator 40.0 40 03/19/17 20:00 84 03/19/17 20:00 40 03/19/17 19:15 85 14 40 03/19/17 16:59 81 15 40 03/19/17 16:00 97.0 83 20 104/57 95 Mechanical Ventilator 40 03/19/17 16:00 40 03/19/17 16:00 88 03/19/17 15:15 100 17 40 03/19/17 12:38 83 12 40 03/19/17 12:00 40 03/19/17 12:00 96.6 82 19 119/55 99 Mechanical Ventilator 40 03/19/17 12:00 81 03/19/17 11:36 79 12 40 03/19/17 09:25 84 12 40 03/19/17 09:08 86 03/19/17 08:00 40 03/19/17 08:00 97.5 83 18 96/57 99 Mechanical Ventilator 40 03/19/17 07:47 81 Height (Feet): 5 Height (Inches): 1.00 Weight (Pounds): 113 Objective Debilitated elderly woman NCAT (+) trach coarse BS RR abd soft ND NT, (+) GT no edema BIN MYERS Mar 20, 2017 07:31
--- NOTE | 2017-03-20 07:53 | Pulmonology Progress Note ---
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 GT, trach PLAN care noted respiratory care as is- no needed changes for now soft tip catheter for home use- son aware Ventilatory support as is home meds noted supportive care as outlined suction with caution and monitor for bleeding no wean planned at present oxygen therapy noted trach change monthly monitor labs prognosis guarded dc planning as per primary team medication list reviewed impression, plan, and exam edited and reviewed in detail care discussed with RN Subjective ROS Limited/Unobtainable: Yes Allergies: Coded Allergies: PENICILLINS (Verified Allergy, Unknown, 07/31/16) Subjective care noted same on vent all reviewed and discussed no recurrence of bleeding dc planning Objective Last 24 Hour Vital Signs Date Time Temp Pulse Resp B/P (MAP) Pulse Ox O2 Delivery O2 Flow Rate FiO2 03/20/17 06:57 77 12 40 03/20/17 06:05 81 12 40 03/20/17 04:00 40 03/20/17 04:00 97.0 84 20 102/50 89 Mechanical Ventilator 40.0 40 03/20/17 04:00 86 03/20/17 02:40 85 12 40 03/20/17 00:50 82 12 40 03/20/17 00:00 97.0 89 12 108/56 89 Mechanical Ventilator 40.0 40 03/20/17 00:00 83 03/20/17 00:00 40 03/19/17 22:46 87 12 40 03/19/17 21:14 90 12 40 03/19/17 20:00 97.0 85 16 111/62 95 Mechanical Ventilator 40.0 40 03/19/17 20:00 84 03/19/17 20:00 40 03/19/17 19:15 85 14 40 03/19/17 16:59 81 15 40 03/19/17 16:00 97.0 83 20 104/57 95 Mechanical Ventilator 40 03/19/17 16:00 40 03/19/17 16:00 88 03/19/17 15:15 100 17 40 03/19/17 12:38 83 12 40 03/19/17 12:00 40 03/19/17 12:00 96.6 82 19 119/55 99 Mechanical Ventilator 40 03/19/17 12:00 81 03/19/17 11:36 79 12 40 03/19/17 09:25 84 12 40 03/19/17 09:08 86 03/19/17 08:00 40 03/19/17 08:00 97.5 83 18 96/57 99 Mechanical Ventilator 40 Objective WDWN female NAD trach clear breath sounds bilaterally without rhonchi or wheeze [id number] without MRG NABS nontender no HSM; GT no CCE nonfocal diffusely weak confused Current Medications Medications (Trade) Dose Ordered Sig/Josiah Route PRN Reason Start Time Stop Time Status Last Admin Dose Admin Acetaminophen (Tylenol) 650 mg Q4H PRN GT Pain Scale (3-5) 03/08/17 17:30 04/07/17 17:29 Amitriptyline HCl (Elavil) 10 mg BEDTIME GT 03/08/17 21:00 04/07/17 20:59 03/19/17 21:35 Digoxin (Lanoxin) 0.125 mg DAILY GT 03/09/17 09:00 04/08/17 08:59 03/19/17 09:08 Levetiracetam (Keppra) 500 mg Q12HR GT 03/08/17 21:00 04/07/17 20:59 03/19/17 21:35 Levothyroxine Sodium (Synthroid) 150 mcg DAILY GT 03/09/17 09:00 04/08/17 08:59 03/19/17 09:07 Midodrine (Pro-Amatine) 10 mg THREE TIMES A DAY GT 03/08/17 18:00 04/07/17 17:59 03/19/17 17:48 Multivitamins Therapeutic (Therapeutic Multivitamin) 1 ea DAILY ORAL 03/09/17 09:00 04/08/17 08:59 03/19/17 09:09 Ondansetron HCl (Zofran) 4 mg Q6H PRN GT Nausea & Vomiting 03/08/17 17:30 04/07/17 17:29 MARCY MAJOR Mar 20, 2017 07:53
[2017-03-20 08:00] VITALS: BP 107/57
--- NOTE | 2017-03-20 08:17 | Consultation ---
DATE OF CONSULTATION: 03/19/2017 GASTROLOGY CONSULTATION CONSULTING PHYSICIAN: Yina Li M.D. REFERRING PHYSICIAN: Rico Madrigal M.D. ATTENDING PHYSICIAN: Rico Madrigal M.D. CHIEF COMPLAINT: I was asked to see this patient for evaluation of gastrostomy tube dysfunction. HISTORY OF PRESENT ILLNESS: The patient is an unfortunate 81-year-old woman who has a history of head and neck cancer status post surgery and radiation which resulted in chronic respiratory failure with tracheostomy and gastrostomy tube placement, who is the hospital initially for hemoptysis. She was here for about 10 to 12 days or so and has had multiple evaluations. Her gastrostomy tube was noted to have fallen out This consultation was requested for replacement. The patient herself was minimally interactive. Most of the information is only available from the chart. PAST MEDICAL HISTORY: History of metastatic lung lesions, head and neck cancer status tracheostomy tube placement, status post gastrostomy tube placement, and dysphagia. ALLERGIES: Penicillin. SOCIAL HISTORY: The patient does not smoke or drink alcohol. She is from [facility]. FAMILY HISTORY: Noncontributory. REVIEW OF SYSTEMS: Otherwise negative. PHYSICAL EXAMINATION: GENERAL: Debilitated elderly woman, seen in her room. HEENT: Normocephalic and atraumatic. Sclerae anicteric. Oropharynx clear. NECK: Supple. CHEST: Clear to auscultation except for some scattered rhonchi. CARDIOVASCULAR: Regular rate. ABDOMEN: Soft with good bowel sounds. There was a Carey catheter, which was used temporarily to secure the gastrostomy site. It was removed at bedside and replaced with 18-Bur[place]ian gastrostomy catheter. This was slightly larger than the 16-[place] Carey. EXTREMITIES: No edema. NEUROLOGIC: Grossly nonfocal. LABORATORY DATA: Laboratory data was noted. ASSESSMENT: This patient has a long-term gastrostomy catheter, which fall out and has now been replaced. Position was verified by bedside technique and the feeding tube can be resumed. I will review management of nursing staff and follow her accordingly. I will elevate head of bed to reduce reflux and aspiration. Gastrostomy tube care will be resumed by the nursing staff. RECOMMENDATIONS: Per above discussion and per orders written in the chart. Thank you for asking me to participate in care this patient. Yina Li M.D. DR: KENZIE JOB#: [id number] CC: MCKENZIE
[2017-03-20] MEDS: levETIRAcetam 500mg/5ml Liquid GT SCH (08:32)
[2017-03-20] MEDS: Digoxin 0.125mg tab GT SCH (08:33)
[2017-03-20] MEDS: Multivitamin w/Minerals tab ORAL SCH (08:33)
[2017-03-20] MEDS: Midodrine 10mg tab GT SCH ×2 (08:34→13:00)
--- NOTE | 2017-03-20 09:50 | General Progress Note ---
Assessment/Plan Problem List: (1) Sepsis ICD Codes: A41.9 - Sepsis, unspecified organism SNOMED: 87965928 (2) Seizures ICD Codes: R56.9 - Unspecified convulsions SNOMED: 45236891 (3) Hemorrhage from tracheostomy stoma ICD Codes: J95.01 - Hemorrhage from tracheostomy stoma SNOMED: 86395998 (4) Tongue malignant neoplasm ICD Codes: C02.9 - Malignant neoplasm of tongue, unspecified SNOMED: 298687801 (5) Lung nodule seen on imaging study ICD Codes: R91.1 - Solitary pulmonary nodule SNOMED: 635130550 (6) Respiratory failure ICD Codes: J96.90 - Respiratory failure, unspecified, unspecified whether with hypoxia or hypercapnia SNOMED: 100745215 Status: stable, progressing Assessment/Plan vent resp rx gt feeds dc planning Subjective ROS Limited/Unobtainable: No Constitutional: Reports: malaise, weakness HEENT: Reports: no symptoms Cardiovascular: Reports: no symptoms Respiratory: Reports: cough Gastrointestinal/Abdominal: Reports: difficulty swallowing Genitourinary: Reports: no symptoms Neurologic/Psychiatric: Reports: pre-existing deficit Endocrine: Reports: no symptoms Hematologic/Lymphatic: Reports: anemia Allergies: Coded Allergies: PENICILLINS (Verified Allergy, Unknown, 07/31/16) All Systems: reviewed and negative except above Subjective no hemoptysis. did not dc yesterday because GT came out. now replaced. Objective Last 24 Hour Vital Signs Date Time Temp Pulse Resp B/P (MAP) Pulse Ox O2 Delivery O2 Flow Rate FiO2 03/20/17 08:33 85 03/20/17 08:00 97.4 86 14 107/57 99 Mechanical Ventilator 40 03/20/17 06:57 77 12 40 03/20/17 06:05 81 12 40 03/20/17 04:00 40 03/20/17 04:00 97.0 84 20 102/50 89 Mechanical Ventilator 40.0 40 03/20/17 04:00 86 03/20/17 02:40 85 12 40 03/20/17 00:50 82 12 40 03/20/17 00:00 97.0 89 12 108/56 89 Mechanical Ventilator 40.0 40 03/20/17 00:00 83 03/20/17 00:00 40 03/19/17 22:46 87 12 40 03/19/17 21:14 90 12 40 03/19/17 20:00 97.0 85 16 111/62 95 Mechanical Ventilator 40.0 40 03/19/17 20:00 84 03/19/17 20:00 40 03/19/17 19:15 85 14 40 03/19/17 16:59 81 15 40 03/19/17 16:00 97.0 83 20 104/57 95 Mechanical Ventilator 40 03/19/17 16:00 40 03/19/17 16:00 88 03/19/17 15:15 100 17 40 03/19/17 12:38 83 12 40 03/19/17 12:00 40 03/19/17 12:00 96.6 82 19 119/55 99 Mechanical Ventilator 40 03/19/17 12:00 81 03/19/17 11:36 79 12 40 Height (Feet): 5 Height (Inches): 1.00 Weight (Pounds): 113 Objective General: The patient is a well-developed, thin female, in no apparent distress. She is arousable and is able to follow some simple commands. NECK: Supple. Trach site is clean. HEART: Regular rate and rhythm. LUNGS: Significant for few scattered rhonchi. ABDOMEN: Soft, nontender, and nondistended. EXTREMITIES: Without clubbing, cyanosis, or edema. CHRISTINA HAMMOND Mar 20, 2017 09:50
--- NOTE | 2017-03-20 10:33 | Infectious Diseases Prog Note ---
Assessment/Plan Assessment/Plan antibiotics : meropenem A 1. pseudomonas pneumonia 2. + blood cultures with bacillus likely contaminated 3. metastatic lung cancer 4. respiratory failure P 1. d/c meropenem 2. observe off antibiotics Subjective ROS Limited/Unobtainable: Yes Allergies: Coded Allergies: PENICILLINS (Verified Allergy, Unknown, 07/31/16) Objective Vital Signs Last 24 Hour Vital Signs Date Time Temp Pulse Resp B/P (MAP) Pulse Ox O2 Delivery O2 Flow Rate FiO2 03/20/17 08:33 85 03/20/17 08:00 40 03/20/17 08:00 97.4 86 14 107/57 99 Mechanical Ventilator 40 03/20/17 08:00 82 03/20/17 06:57 77 12 40 03/20/17 06:05 81 12 40 03/20/17 04:00 40 03/20/17 04:00 97.0 84 20 102/50 89 Mechanical Ventilator 40.0 40 03/20/17 04:00 86 03/20/17 02:40 85 12 40 03/20/17 00:50 82 12 40 03/20/17 00:00 97.0 89 12 108/56 89 Mechanical Ventilator 40.0 40 03/20/17 00:00 83 03/20/17 00:00 40 03/19/17 22:46 87 12 40 03/19/17 21:14 90 12 40 03/19/17 20:00 97.0 85 16 111/62 95 Mechanical Ventilator 40.0 40 03/19/17 20:00 84 03/19/17 20:00 40 03/19/17 19:15 85 14 40 03/19/17 16:59 81 15 40 03/19/17 16:00 97.0 83 20 104/57 95 Mechanical Ventilator 40 03/19/17 16:00 40 03/19/17 16:00 88 03/19/17 15:15 100 17 40 03/19/17 12:38 83 12 40 03/19/17 12:00 40 03/19/17 12:00 96.6 82 19 119/55 99 Mechanical Ventilator 40 03/19/17 12:00 81 03/19/17 11:36 79 12 40 Height (Feet): 5 Height (Inches): 1.00 Weight (Pounds): 113 HEENT: status post trach Respiratory/Chest: lungs clear Cardiovascular: normal rate, regular rhythm, no gallop/murmur Abdomen: soft, non tender, other - GT Extremities: no edema MARA BLOCK Mar 20, 2017 10:33
[2017-03-20 12:00] VITALS: BP 114/63
--- NOTE | 2017-03-22 09:31 | Discharge Summary ---
Discharge Summary Hospital Course Date of Admission Mar 08, 2017 at 16:12 Date of Discharge Mar 20, 2017 at 13:15 Admitting Diagnosis hemoptysis, colitis HPI Tara Friedman is a 81 year old female who was admitted on Mar 08, 2017 at 16: 12 for Hemoptysis, Colitis Hospital Course Son came to pick-up patient on 03/20/17. --I have been assigned to complete a DC summary on this account, I was not involved in the management of the patient.--Nick Mercado NP Discharge Discharge Disposition Patient was discharged to Home with Home Health(06) Discharge Diagnoses: Latonya Mercado NP Mar 22, 2017 09:31
== END 2017-03-20 13:15 | disposition home health service (06) | DRG 207 ==
LOC: EMR 15:55 → 2W 16:12 → EDBEDREQ 16:58 → 2W 17:24
DX: J95.01 Hemorrhage from tracheostomy stoma (principal); J15.1 Pneumonia due to Pseudomonas; A41.9 Sepsis, unspecified organism; Z99.11 Dependence on respirator [ventilator] status; J96.10 Chronic respiratory failure, unspecified whether with hypoxia or hypercapnia; J44.9 Chronic obstructive pulmonary disease, unspecified; C78.00 Secondary malignant neoplasm of unspecified lung; C02.9 Malignant neoplasm of tongue, unspecified; K94.23 Gastrostomy malfunction; Z43.1 Encounter for attention to gastrostomy; R13.10 Dysphagia, unspecified; G40.909 Epilepsy, unspecified, not intractable, without status epilepticus; K52.9 Noninfective gastroenteritis and colitis, unspecified; D64.9 Anemia, unspecified; E03.9 Hypothyroidism, unspecified; J20.9 Acute bronchitis, unspecified
CPT/HCPCS: 31645; 36415; 51701; 71010; 74000; 80048; 80053; 81003; 82550; 82553; 82962; 83880; 84484; 85025; 85610; 85730; 86850; 86900; 86901; 87040; 87070; 87181; 87205; 93005; 93970; 94002; 94003; 94640; 94664; 99285; J7620

== ENCOUNTER 2017-04-07 17:01 | Inpatient (IN) | payer MEDICARE, BC ==
[~2017-04-07] VITALS: Ht 152.4 cm; Wt 70.4 kg
[~2017-04-07 17:01] MED LIST changes: +MULTI-DELYN237 ML GT
[2017-04-07] MEDS ORDERED: Pantoprazole Inj IV ONE (17:15)
--- NOTE | 2017-04-07 17:25 | Emergency Room Report ---
History of Present Illness General Chief Complaint: Gastrointestinal Bleed Source: Patient, Family Member, Medical Record Present Illness HPI Patient is brought by her son. At the retirement facility where she is she 's been having melanotic stools for approximately one week. It's been intermittent. She was discharged from the hospital she had some episodes of melena at that resolved. She is a history of gastric or peptic ulcer. 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 This happened at [facility]. This resulted in a two-month hospitalization with tracheostomy being placed. Subsequently after the trach was in for 3 months it was replaced and there was some significant bleeding. At that time there was some transient bleeding there was suctioned and the tracheostomy tube. There's been no bleeding in the tracheostomy recently although the patient's had some thick secretions that have required being suctioned. 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 Her blood pressures have been low recently. She's taking in less by her G-tube recently. She's complaining about pain in her lower abdomen. She is declining pain medication at this time. No dysuria, joint pain, change in chronic weakness. On vent chronically. Diagnosis of lung carcinoma. She was discharged 03/19 with these dx: 1. Hemoptysis. 2. Pneumonia. 3. Sepsis. 4. Bacteremia. 5. Chronic respiratory failure. 6. History of head and neck cancer. 7. History of tracheostomy and gastrostomy tube. 8. Seizure disorder. Allergies: Coded Allergies: PENICILLINS (Verified Allergy, Unknown, 07/31/16) Patient History Limited by: medical condition Past Medical History: see triage record, old chart reviewed Past Surgical History: other - treach, G tube Social History: Denies: smoking, alcohol use, drug use Social History Narrative at SNF Reviewed Nursing Documentation: PMH: Agreed, PSxH: Agreed Nursing Documentation-PM Past Medical History: No History, Except For Hx Cardiac Problems: Yes Hx COPD: Yes Hx Cancer: Yes - mouth Hx Gastrointestinal Problems: Yes Hx Neurological Problems: Yes Hx Seizures: Yes Hx Speech Problem: Yes - trach Hx Weakness: Yes Review of Systems All Other Systems: limited Physical Exam Vital Signs Date Time Temp Pulse Resp B/P (MAP) Pulse Ox O2 Delivery O2 Flow Rate FiO2 04/07/17 17:06 97.0 137 14 93/55 99 Mechanical Ventilator 35 Sp02 EP Interpretation: reviewed, normal General Appearance: no apparent distress, GCS 15, Chronically Ill Head: normocephalic Eyes: bilateral eye PERRL, bilateral eye conjunctivae pale ENT: moist mucus membranes Neck: supple, tracheotomy Respiratory: rhonchi Cardiovascular #1: no edema, tachycardia Cardiovascular #2: 2+ radial (R), 2+ femoral (R) Gastrointestinal: normal inspection, normal bowel sounds, non tender, no mass, non-distended, other - G tube Rectal: heme positive stool Musculoskeletal: back normal, normal range of motion Neurologic: alert, oriented x3, grossly normal Psychiatric: depressed affect Skin: warm/dry, pallor, other - decubius Procedures Critical Care Time Critical Care Time Total Critical Care Time: 45 min bedside evaluation and treatment excludes procedures (EKG, CVP). Reason for critical care: sepsis, GI bleed Possible complications: hypotension, hypertension, IL, shock, arrhythmias, metabolic acidosis, end organ damage, respiratory failure. Interventions: CVP, protonix, blood transfusion, antibiotics, fluid resuscitation Course: Patient presents with melena, tachycardia, productive sputum and tachycardia. Hx from son. Immediate evaluation and resuscitation. Treatment with protonix. Set up for blood. Lack of adequate IV sites led to CVP. Antibiotics begun for leukocytosis and LLL infiltrate. Blood begun for critical anemia and bleeding. Repeated evaluations. Discussion with son. Improved with treatment, though critical. Consultations: nursing staff, EMS, family, PMD, blood bank Performed by: Dr. Fonseca Tolerated well condition = critical Central Line Central Line : Consent: Verbal Central Line Lumen: triple Maximal Sterile Barrier Tech: yes cap, yes mask, yes sterile gown, yes sterile gloves, yes large sterile sheet, yes hand hygiene, yes chlorhexidine prep Central Line Postion: femoral (R) Anesthesia: Lidocaine cc's of anesthesia: 4 Complications: none Central Line Post Position: sutured, good blood return Attempts: One Patient Tolerated: Well Complications: None Progress EBL = 2 ml + 7 ml drawn for reflex lactate Medical Decision Making Diagnostic Impression: Primary Impression: Acute GI hemorrhage Additional Impressions: Pneumonia Qualified Codes: J18.1 - Lobar pneumonia, unspecified organism Sepsis Qualified Codes: A41.9 - Sepsis, unspecified organism ER Course Patient presents with h/o melanotic stools, tachycardia and productive cough. DDx: UGI bleed, sepsis, PNA, bronchitis, hemorrhagic shock amongst others. Patient complex and with tachycardia suggesting significant bleed. Emergent evaluation with EKG, abd and cxr films, labs including blood cultures, lactate. Treatment with IV hydration, protonix. Labs with leukocytosis and significant anemia. Ordered antibiotics and blood. CXR with chronic LLL process, though clinically + pneumonia. Lack of IV sites necessitated CVP. Improved with treatment, though critical. BP remains stable and tachycardia improved. Admit ANNALISA Dr. Madrigal. Laboratory Tests Test 04/07/17 18:20 04/07/17 18:50 White Blood Count 24.7 K/UL (4.8-10.8) *H Red Blood Count 2.63 M/UL (4.20-5.40) L Hemoglobin 7.5 G/DL (12.0-16.0) L Hematocrit 23.7 % (37.0-47.0) L Mean Corpuscular Volume 90 FL (80-99) Mean Corpuscular Hemoglobin 28.7 PG (27.0-31.0) Mean Corpuscular Hemoglobin Concent 31.8 G/DL (32.0-36.0) L Red Cell Distribution Width 12.7 % (11.6-14.8) Platelet Count 347 K/UL (150-450) Mean Platelet Volume 6.0 FL (6.5-10.1) L Neutrophils (%) (Auto) % (45.0-75.0) Lymphocytes (%) (Auto) % (20.0-45.0) Monocytes (%) (Auto) % (1.0-10.0) Eosinophils (%) (Auto) % (0.0-3.0) Basophils (%) (Auto) % (0.0-2.0) Neutrophils % (Manual) Pending Lymphocytes % (Manual) Pending Platelet Estimate Pending Platelet Morphology Pending Prothrombin Time 10.2 SEC (9.30-11.50) Prothrombin Time INR 1.0 (0.9-1.1) PTT 20 SEC (23-33) L Sodium Level 139 MMOL/L (136-145) Potassium Level 4.8 MMOL/L (3.5-5.1) Chloride Level 102 MMOL/L (98-107) Carbon Dioxide Level 27 MMOL/L (21-32) Anion Gap 10 mmol/L (5-15) Blood Urea Nitrogen 72 mg/dL (7-18) H Creatinine 1.1 MG/DL (0.55-1.30) Estimate Glomerular Filtration Rate mL/min (>60) Glucose Level 159 MG/DL (74-106) H Lactic Acid Level 2.50 mmol/L (0.66-2.22) H Calcium Level 9.9 MG/DL (8.5-10.1) Total Bilirubin 0.2 MG/DL (0.2-1.0) Aspartate Amino Transferase (AST) 28 U/L (15-37) Alanine Aminotransferase (ALT) 13 U/L (12-78) Alkaline Phosphatase 73 U/L (46-116) Total Creatine Kinase 67 U/L (26-308) Troponin I 0.002 ng/mL (0.000-0.056) Pro-B-Type Natriuretic Peptide 248 pg/mL (0-125) H Total Protein 8.1 G/DL (6.4-8.2) Albumin 3.2 G/DL (3.4-5.0) L Globulin 4.9 g/dL Albumin/Globulin Ratio 0.7 (1.0-2.7) L Lipase 175 U/L (73-393) Urine Color Pale yellow Urine Appearance Clear Urine pH 5 (4.5-8.0) Urine Specific [place] 1.015 (1.005-1.035) Urine Protein Negative (NEGATIVE) Urine Glucose (UA) Negative (NEGATIVE) Urine Ketones Negative (NEGATIVE) Urine Occult Blood Negative (NEGATIVE) Urine Nitrite Negative (NEGATIVE) Urine Bilirubin Negative (NEGATIVE) Urine Urobilinogen Normal MG/DL (0.0-1.0) Urine Leukocyte Esterase Negative (NEGATIVE) EKG Diagnostic Results Rate: tachycardiac Rhythm: NSR ST Segments: no acute changes Rhythm Strip Diag. Results EP Interpretation: yes Rhythm: no PVC's, no ectopy, other - ST Chest X-Ray Diagnostic Results Chest X-Ray Diagnostic Results : Chest X-Ray Ordered: Yes # of Views/Limited/Complete: 1 View Indication: Other Interpretation: no pneumothorax, other - L infiltrate (part is chronic) and effusion Impression: Other Electronically Signed by: Electronically signed by Chi Fonseca MD Last Vital Signs Date Time Temp Pulse Resp B/P (MAP) Pulse Ox O2 Delivery O2 Flow Rate FiO2 04/08/17 00:51 113 28 35 04/08/17 00:50 97.7 104/55 100 Mechanical Ventilator Status: improved Disposition: ADMITTED INPATIENT Condition: Critical Chi Fonesca M.D. Apr 07, 2017 17:25
[2017-04-07 17:41] VITALS: BP 93/55
[2017-04-07] MEDS ORDERED: MIDODRINE HCL10 MG GT (18:37)
[2017-04-07] MEDS ORDERED: MULTI-DELYN237 ML GT ×2 (18:37→18:46)
[2017-04-07] MEDS ORDERED: LEVETIRACE100 MG/1 M GT (18:37)
[2017-04-07] MEDS ORDERED: AMITRIPTYLINE H10 MG GT (18:37)
[2017-04-07] MEDS ORDERED: DIGOXIN0.125 MG/2 GT (18:37)
[2017-04-07] MEDS ORDERED: LEVOTHYROXINE150 MCG GT (18:37)
[2017-04-07] MEDS ORDERED: DUODERM1 EACH TP (18:46)
[2017-04-07] MEDS ORDERED: [UNRECOGNIZED DRUG - OTHER] TP (18:46)
[2017-04-07 19:01] VITALS: BP 94/59
[2017-04-07 19:09] LABS: MEAN CORPUSCULAR HEMOGLOBIN 28.7 PG (27.0-31.0); MEAN CORPUSCULAR HGB CONC 31.8 G/DL (32.0-36.0); MEAN CORPUSCULAR VOLUME 90 FL (80-99); PLATELET COUNT 347 K/UL (150-450); RED BLOOD COUNT 2.63 M/UL (4.20-5.40); RED CELL DISTRIBUTION WIDTH 12.7 % (11.6-14.8)
[2017-04-07 19:09] LABS: APPEARANCE,URINE CLEAR; KETONES,URINE NEGATIVE (NEGATIVE); LEUKOCYTE ESTERASE ,URINE NEGATIVE (NEGATIVE); NITRITE,URINE NEGATIVE (NEGATIVE); PH,URINE 5 (4.5-8.0); PROTEIN,URINE NEGATIVE (NEGATIVE); UROBILINOGEN,URINE NORMAL MG/DL (0.0-1.0)
[2017-04-07 19:13] LABS: PROTHROMBIN TIME 10.2 SEC (9.30-11.50)
[2017-04-07 19:14] LABS: WHITE BLOOD COUNT 24.7 K/UL (4.8-10.8)
[2017-04-07 19:28] VITALS: BP 100/56
[2017-04-07 19:41] LABS: REFLEX LACTIC ACID YES OR NO YES
[2017-04-07 19:43] LABS: ALANINE AMINOTRANSFERASE 13 U/L (12-78); ALBUMIN/GLOBULIN RATIO 0.7 (1.0-2.7); ANION GAP 10 mmol/L (5-15); ASPARTATE AMINO TRANSFERASE 28 U/L (15-37); CALCIUM 9.9 MG/DL (8.5-10.1); CARBON DIOXIDE 27 MMOL/L (21-32); CHLORIDE 102 MMOL/L (98-107); CREATININE 1.1 MG/DL (0.55-1.30); POTASSIUM 4.8 MMOL/L (3.5-5.1); SODIUM 139 MMOL/L (136-145); TOTAL PROTEIN 8.1 G/DL (6.4-8.2)
[2017-04-07 19:44] LABS: LIPASE 175 U/L (73-393)
[2017-04-07] MEDS ORDERED: Cefepime HCl 1 GM in D5W 55 ML IVPB ONE (19:45)
[2017-04-07] MEDS ORDERED: Vancomycin 500 MG in NS 110 ML IVPB ONE (19:45)
[2017-04-07] MEDS ORDERED: Cefepime 1gm vial ONE (20:03)
[2017-04-07] MEDS ORDERED: [UNRECOGNIZED DRUG - REMARK] TOPIC (20:12)
[2017-04-07 20:42] LABS: BAND NEUTROPHILS % (MANUAL) 1 % (0-8); LYMPHOCYTES % (MANUAL) 15 % (20-45); NEUTROPHILS % (MANUAL) 82 % (45-75); TOTAL CELLS COUNTED 100
[2017-04-07 20:43] LABS: ANISOCYTOSIS 1+; BASOPHILS % (MANUAL) 0 % (0-2); EOSINOPHILS % (MANUAL) 0 % (0-3); HYPOCHROMASIA 1+; PLATELET ESTIMATE ADEQUATE; PLATELET MORPHOLOGY NORMAL
[2017-04-07] MEDS ORDERED: Lidocaine 1% MPF 10mg/ml 5ml INJ ONE (20:45)
[2017-04-07 21:35] VITALS: BP 94/43
[2017-04-07 21:50] VITALS: BP 103/50
[2017-04-07 22:35] VITALS: BP 99/44
[2017-04-08] VITALS (7 sets, daily range): BP systolic 90–111; BP diastolic 46–59
--- NOTE | 2017-04-08 03:47 | Consultation ---
DATE OF CONSULTATION: 04/07/2017 CARDIOLOGY CONSULTATION CONSULTING PHYSICIAN: Chi Bhatti M.D. REQUESTING PHYSICIAN: Rico Madrigal M.D. REASON FOR CONSULTATION: Shock. HISTORY OF PRESENT ILLNESS: This is an unfortunate female with metastatic head and neck carcinoma, who has tracheostomy and is ventilator dependent. She has been having melanotic stools for the last week. She does have a history of peptic ulcer disease, however, symptoms progressed and the patient was brought into the hospital emergency room by her son. The patient's son also notes some bleeding from the tracheostomy site. In the emergency room, the patient's blood pressure was 93/55 and heart rate was 137 with respiratory rate of 14. She was afebrile. The patient is able to verbalize and complained of abdominal pain and was pancultured and started on IV antibiotics and admitted to the hospital for further care. PAST MEDICAL HISTORY: 1. Ventilator-dependent respiratory failure. 2. Dysphagia with gastrostomy tube. 3. Head and neck cancer with local metastases. 4. Paroxysmal supraventricular tachycardia. 5. Paroxysmal atrial fibrillation. 6. Chronic hypotension due to autonomic dysfunction. ALLERGIES: Penicillin. SOCIAL HISTORY: Prior smoker. FAMILY HISTORY: Noncontributory. REVIEW OF SYSTEMS: A 10-point review of systems performed. All pertinent data as outlined above. PHYSICAL EXAMINATION: VITAL SIGNS: As noted. SKIN: Without breakdown. Right femoral triple lumen catheter site clean and dry. HEENT: Trach site with thin secretions. LUNGS: With bilateral breath sounds. CARDIAC: Regular rhythm. Rapid rate. Normal S1 and S2 with no murmur. ABDOMEN: Soft and mildly tender with slight distention. No guarding. EXTREMITIES: Revealed muscle atrophy, but no edema. LABORATORY DATA: White count 24.7, hemoglobin 7.5, and platelet count 347,000. Sodium 139, potassium 4.8, bicarb 27, BUN 72, and creatinine 1.1. Lactic acid 2.5. Troponin 0.002. Chest x-ray with left lung infiltrate and effusion unchanged from prior studies. EKG with sinus tachycardia and no acute ST-T wave changes. IMPRESSION: 1. Acute gastrointestinal bleeding. 2. Severe anemia. 3. Hypovolemia. 4. Possible sepsis. 5. Shock. 6. Secondary sinus tachycardia. 7. Paroxysmal supraventricular tachycardia. 8. Ventilator-dependent respiratory failure. 9. Autonomic dysfunction with history of chronic hypotension. PLAN: 1. Packed red blood cell transfusion. 2. Monitor hemoglobin. 3. Hydrate cautiously. 4. Hold diuretics. 5. Check digoxin level. 6. Empiric antibiotics pending culture results. 7. Ventilator support. 8. Respiratory hygiene. 9. Check thyroid panel. 10. Further recommendations will follow. 11. The patient's condition is critical with guarded prognosis. Chi Bhatti M.D. DR: DAVID JOB#: [id number] CC:
[2017-04-08 07:54] LABS: ALANINE AMINOTRANSFERASE 10 U/L (12-78); ALBUMIN/GLOBULIN RATIO 0.7 (1.0-2.7); ANION GAP 6 mmol/L (5-15); ASPARTATE AMINO TRANSFERASE 20 U/L (15-37); CALCIUM 7.9 MG/DL (8.5-10.1); CARBON DIOXIDE 25 MMOL/L (21-32); CHLORIDE 112 MMOL/L (98-107); CREATININE 0.7 MG/DL (0.55-1.30); POTASSIUM 3.7 MMOL/L (3.5-5.1); SODIUM 143 MMOL/L (136-145); TOTAL PROTEIN 5.3 G/DL (6.4-8.2)
[2017-04-08 08:02] LABS: MAGNESIUM 1.8 MG/DL (1.8-2.4)
[2017-04-08] MEDS: levETIRAcetam 500mg/5ml Liquid GT SCH ×2 (08:43→18:37)
[2017-04-08] MEDS: Midodrine 10mg tab GT SCH ×3 (08:44→18:38)
[2017-04-08] MEDS: Digoxin Elixir 0.125mg GT SCH (08:44)
[2017-04-08] MEDS: Multivitamins W/Minerals 15 ML UDC GT SCH (08:48)
[2017-04-08 09:34] LABS: ABG ALLEN TEST POSITIVE; ABG BASE EXCESS -4.4; ABG PCO2 33.6 mmHg (35.0-45.0)
[2017-04-08 09:46] LABS: BASOPHILS % (AUTO) 0.6 % (0.0-2.0); LYMPHOCYTES % (AUTO) 10.5 % (20.0-45.0); MEAN CORPUSCULAR HEMOGLOBIN 28.9 PG (27.0-31.0); MEAN CORPUSCULAR HGB CONC 32.6 G/DL (32.0-36.0); MEAN CORPUSCULAR VOLUME 89 FL (80-99); MEAN PLATELET VOLUME 6.3 FL (6.5-10.1); MONOCYTES % (AUTO) 10.2 % (1.0-10.0); NEUTROPHILS % (AUTO) 77.7 % (45.0-75.0); PLATELET COUNT 191 K/UL (150-450); RED BLOOD COUNT 2.92 M/UL (4.20-5.40); RED CELL DISTRIBUTION WIDTH 12.3 % (11.6-14.8); WHITE BLOOD COUNT 14.6 K/UL (4.8-10.8)
--- NOTE | 2017-04-08 10:08 | Consultation ---
Consult Note Consult Note Consult Note CHIEF COMPLAINT: Respiratory failure History Of Present Illness: 81-year-old female. She has a history of head and neck cancer, status post surgery and radiation and has several admissions for hemoptysis in the past. She has a history of chronic respiratory failure with a trach as well as a G-tube and has been at home with her son. She has a history of recurrence with metastatic lung lesions. She was brought to the emergency room after son noticed melanotic stools. The patient was in no distress, but in light of the possible GIB, she is now admitted for further evaluation and care. Patient underwent laryngoscopy by ENT and findings were negative in the past. Patient also with prior bronchoscopy which was negative. Patient is currently ventilator dependent PAST MEDICAL HISTORY: Respiratory failure, trach, GT, hemoptysis, Head and neck cancer with lung mets, ALOC PAST SURGICAL HISTORY: Trach, GT CURRENT MEDICATIONS: Reconciled ALLERGIES: Penicillin. FAMILY HISTORY: Noncontributory to the above. SOCIAL HISTORY: Negative for tobacco, ethanol, or drugs. currently at home with her son Review Of Systems: unable WDWN female NAD trach clear breath sounds bilaterally without rhonchi or wheeze [id number] without MRG NABS nontender no HSM; GT no CCE nonfocal diffusely weak confused Last 24 Hour Vital Signs Date Time Temp Pulse Resp B/P (MAP) Pulse Ox O2 Delivery O2 Flow Rate FiO2 04/08/17 09:02 96 31 35 04/08/17 08:44 89 04/08/17 08:00 89 04/08/17 08:00 98.4 92 22 95/51 100 Mechanical Ventilator 35 04/08/17 08:00 97.5 89 22 108/58 100 Mechanical Ventilator 35 04/08/17 08:00 35 04/08/17 07:13 90 22 35 04/08/17 05:03 97 21 35 04/08/17 04:00 97 04/08/17 04:00 35 04/08/17 04:00 97.4 96 22 94/46 100 Mechanical Ventilator 35 04/08/17 02:41 95 21 35 04/08/17 00:51 113 28 35 04/08/17 00:50 97.7 99 22 104/55 100 Mechanical Ventilator 35 04/08/17 00:00 35 04/08/17 00:00 97.9 102 22 111/59 100 Mechanical Ventilator 35 04/08/17 00:00 101 04/07/17 23:24 106 25 35 04/07/17 22:35 98.8 107 22 99/44 100 Mechanical Ventilator 35 04/07/17 22:35 98.8 107 22 99/44 100 Mechanical Ventilator 35 04/07/17 21:50 98.8 110 24 103/50 100 Mechanical Ventilator 35 04/07/17 21:35 100.1 107 26 94/43 100 Mechanical Ventilator 04/07/17 20:57 106 29 35 04/07/17 19:28 99.8 116 24 100/56 100 Mechanical Ventilator 35 04/07/17 19:08 129 28 35 04/07/17 19:01 97.0 126 30 94/59 100 Mechanical Ventilator 35 04/07/17 17:41 97.0 130 14 93/55 99 Mechanical Ventilator 35 04/07/17 17:34 132 28 35 04/07/17 17:15 35 04/07/17 17:06 97.0 137 14 93/55 99 Mechanical Ventilator 35 Laboratory Tests 04/07/17 18:20: White Blood Count 24.7*H, Red Blood Count 2.63L, Hemoglobin 7.5L, Hematocrit 23.7L, Mean Corpuscular Volume 90, Mean Corpuscular Hemoglobin 28.7, Mean Corpuscular Hemoglobin Concent 31.8L, Red Cell Distribution Width 12.7, Platelet Count 347, Mean Platelet Volume 6.0L, Neutrophils (%) (Auto) , Lymphocytes (%) (Auto) , Monocytes (%) (Auto) , Eosinophils (%) (Auto) , Basophils (%) (Auto) , Differential Total Cells Counted 100, Neutrophils % ( Manual) 82H, Lymphocytes % (Manual) 15L, Monocytes % (Manual) 2, Eosinophils % ( Manual) 0, Basophils % (Manual) 0, Band Neutrophils 1, Platelet Estimate Adequate, Platelet Morphology Normal, Hypochromasia 1+, Anisocytosis 1+, Prothrombin Time 10.2, Prothromb Time International Ratio 1.0, Activated Partial Thromboplast Time 20L, Sodium Level 139, Potassium Level 4.8, Chloride Level 102, Carbon Dioxide Level 27, Anion Gap 10, Blood Urea Nitrogen 72H, Creatinine 1.1, Estimat Glomerular Filtration Rate , Glucose Level 159H, Lactic Acid Level 2.50H, Calcium Level 9.9, Total Bilirubin 0.2, Aspartate Amino Transf (AST/SGOT) 28, Alanine Aminotransferase (ALT/SGPT) 13, Alkaline Phosphatase 73, Total Creatine Kinase 67, Troponin I 0.002, Pro-B-Type Natriuretic Peptide 248H, Total Protein 8.1, Albumin 3.2L, Globulin 4.9, Albumin /Globulin Ratio 0.7L, Lipase 175 04/07/17 18:50: Urine Color Pale yellow, Urine Appearance Clear, Urine pH 5, Urine Specific [place] 1.015, Urine Protein Negative, Urine Glucose (UA) Negative, Urine Ketones Negative, Urine Occult Blood Negative, Urine Nitrite Negative, Urine Bilirubin Negative, Urine Urobilinogen Normal, Urine Leukocyte Esterase Negative 04/07/17 21:23: Lactic Acid Level 0.70 04/08/17 06:00: Sodium Level 143, Potassium Level 3.7, Chloride Level 112H, Carbon Dioxide Level 25, Anion Gap 6, Blood Urea Nitrogen 39H, Creatinine 0.7, Estimat Glomerular Filtration Rate , Glucose Level 100, Calcium Level 7.9#L, Total Bilirubin 0.3, Aspartate Amino Transf (AST/SGOT) 20, Alanine Aminotransferase ( ALT/SGPT) 10L, Alkaline Phosphatase 45L, Total Protein 5.3#L, Albumin 2.1L, Globulin 3.2, Albumin/Globulin Ratio 0.7L, Magnesium Level 1.8, Thyroid Stimulating Hormone (TSH) 0.020L, Digoxin Level 0.6L 04/08/17 09:00: White Blood Count 14.6H, Red Blood Count 2.92L, Hemoglobin 8.4L, Hematocrit 25.9L, Mean Corpuscular Volume 89, Mean Corpuscular Hemoglobin 28.9, Mean Corpuscular Hemoglobin Concent 32.6, Red Cell Distribution Width 12.3, Platelet Count 191, Mean Platelet Volume 6.3L, Neutrophils (%) (Auto) 77.7H, Lymphocytes (%) (Auto) 10.5L, Monocytes (%) (Auto) 10.2H, Eosinophils (%) (Auto) 1.0, Basophils (%) (Auto) 0.6 04/08/17 09:28: Arterial Blood pH 7.390, Arterial Blood Partial Pressure CO2 33.6L, Arterial Blood Partial Pressure O2 145.2H, Arterial Blood HCO3 20.0L, Arterial Blood Oxygen Saturation 98.2H, Arterial Blood Base Excess -4.4, Talha Test Positive Height (Feet): 5 Weight (Pounds): 99 Assessment chronic respiratory failure, head and neck cancer with lung metastasis, hemoptysis, no endobronchial tumor. GT, trach, anemia, possible GIB PLAN GI evaluation monitor HH care noted respiratory care as is soft tip catheter for home use- son aware Ventilatory support as is home meds noted supportive care as outlined suction with caution and monitor for bleeding no wean planned at present oxygen therapy noted trach change monthly prognosis guarded dc planning once stable medication list reviewed impression, plan, and exam edited and reviewed in detail care discussed with MARCY GARCIA Apr 08, 2017 10:08
--- NOTE | 2017-04-08 10:11 | General Progress Note ---
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 GT, trach PLAN see consult note Subjective Allergies: Coded Allergies: PENICILLINS (Verified Allergy, Unknown, 07/31/16) Objective Last 24 Hour Vital Signs Date Time Temp Pulse Resp B/P (MAP) Pulse Ox O2 Delivery O2 Flow Rate FiO2 04/08/17 09:02 96 31 35 04/08/17 08:44 89 04/08/17 08:00 89 04/08/17 08:00 98.4 92 22 95/51 100 Mechanical Ventilator 35 04/08/17 08:00 97.5 89 22 108/58 100 Mechanical Ventilator 35 04/08/17 08:00 35 04/08/17 07:13 90 22 35 04/08/17 05:03 97 21 35 04/08/17 04:00 97 04/08/17 04:00 35 04/08/17 04:00 97.4 96 22 94/46 100 Mechanical Ventilator 35 04/08/17 02:41 95 21 35 04/08/17 00:51 113 28 35 04/08/17 00:50 97.7 99 22 104/55 100 Mechanical Ventilator 35 04/08/17 00:00 35 04/08/17 00:00 97.9 102 22 111/59 100 Mechanical Ventilator 35 04/08/17 00:00 101 04/07/17 23:24 106 25 35 04/07/17 22:35 98.8 107 22 99/44 100 Mechanical Ventilator 35 04/07/17 22:35 98.8 107 22 99/44 100 Mechanical Ventilator 35 04/07/17 21:50 98.8 110 24 103/50 100 Mechanical Ventilator 35 04/07/17 21:35 100.1 107 26 94/43 100 Mechanical Ventilator 04/07/17 20:57 106 29 35 04/07/17 19:28 99.8 116 24 100/56 100 Mechanical Ventilator 35 04/07/17 19:08 129 28 35 04/07/17 19:01 97.0 126 30 94/59 100 Mechanical Ventilator 35 04/07/17 17:41 97.0 130 14 93/55 99 Mechanical Ventilator 35 04/07/17 17:34 132 28 35 04/07/17 17:15 35 04/07/17 17:06 97.0 137 14 93/55 99 Mechanical Ventilator 35 Laboratory Tests 04/07/17 18:20: White Blood Count 24.7*H, Red Blood Count 2.63L, Hemoglobin 7.5L, Hematocrit 23.7L, Mean Corpuscular Volume 90, Mean Corpuscular Hemoglobin 28.7, Mean Corpuscular Hemoglobin Concent 31.8L, Red Cell Distribution Width 12.7, Platelet Count 347, Mean Platelet Volume 6.0L, Neutrophils (%) (Auto) , Lymphocytes (%) (Auto) , Monocytes (%) (Auto) , Eosinophils (%) (Auto) , Basophils (%) (Auto) , Differential Total Cells Counted 100, Neutrophils % ( Manual) 82H, Lymphocytes % (Manual) 15L, Monocytes % (Manual) 2, Eosinophils % ( Manual) 0, Basophils % (Manual) 0, Band Neutrophils 1, Platelet Estimate Adequate, Platelet Morphology Normal, Hypochromasia 1+, Anisocytosis 1+, Prothrombin Time 10.2, Prothromb Time International Ratio 1.0, Activated Partial Thromboplast Time 20L, Sodium Level 139, Potassium Level 4.8, Chloride Level 102, Carbon Dioxide Level 27, Anion Gap 10, Blood Urea Nitrogen 72H, Creatinine 1.1, Estimat Glomerular Filtration Rate , Glucose Level 159H, Lactic Acid Level 2.50H, Calcium Level 9.9, Total Bilirubin 0.2, Aspartate Amino Transf (AST/SGOT) 28, Alanine Aminotransferase (ALT/SGPT) 13, Alkaline Phosphatase 73, Total Creatine Kinase 67, Troponin I 0.002, Pro-B-Type Natriuretic Peptide 248H, Total Protein 8.1, Albumin 3.2L, Globulin 4.9, Albumin /Globulin Ratio 0.7L, Lipase 175 04/07/17 18:50: Urine Color Pale yellow, Urine Appearance Clear, Urine pH 5, Urine Specific [place] 1.015, Urine Protein Negative, Urine Glucose (UA) Negative, Urine Ketones Negative, Urine Occult Blood Negative, Urine Nitrite Negative, Urine Bilirubin Negative, Urine Urobilinogen Normal, Urine Leukocyte Esterase Negative 04/07/17 21:23: Lactic Acid Level 0.70 04/08/17 06:00: Sodium Level 143, Potassium Level 3.7, Chloride Level 112H, Carbon Dioxide Level 25, Anion Gap 6, Blood Urea Nitrogen 39H, Creatinine 0.7, Estimat Glomerular Filtration Rate , Glucose Level 100, Calcium Level 7.9#L, Total Bilirubin 0.3, Aspartate Amino Transf (AST/SGOT) 20, Alanine Aminotransferase ( ALT/SGPT) 10L, Alkaline Phosphatase 45L, Total Protein 5.3#L, Albumin 2.1L, Globulin 3.2, Albumin/Globulin Ratio 0.7L, Magnesium Level 1.8, Thyroid Stimulating Hormone (TSH) 0.020L, Digoxin Level 0.6L 04/08/17 09:00: White Blood Count 14.6H, Red Blood Count 2.92L, Hemoglobin 8.4L, Hematocrit 25.9L, Mean Corpuscular Volume 89, Mean Corpuscular Hemoglobin 28.9, Mean Corpuscular Hemoglobin Concent 32.6, Red Cell Distribution Width 12.3, Platelet Count 191, Mean Platelet Volume 6.3L, Neutrophils (%) (Auto) 77.7H, Lymphocytes (%) (Auto) 10.5L, Monocytes (%) (Auto) 10.2H, Eosinophils (%) (Auto) 1.0, Basophils (%) (Auto) 0.6 04/08/17 09:28: Arterial Blood pH 7.390, Arterial Blood Partial Pressure CO2 33.6L, Arterial Blood Partial Pressure O2 145.2H, Arterial Blood HCO3 20.0L, Arterial Blood Oxygen Saturation 98.2H, Arterial Blood Base Excess -4.4, Talha Test Positive Height (Feet): 5 Weight (Pounds): 99 MARCY MAJOR Apr 08, 2017 10:10
--- NOTE | 2017-04-08 11:08 | Diagnostic Imaging Report ---
Indication: Abdominal pain Technique: ABDOMEN 1 VIEW Comparison: 03/18/17. Findings: A gastrostomy tube is noted in the left upper quadrant. There are irving in the left upper quadrant. Mild scoliosis of the lumbar spine is present. Bowel gas pattern is nonobstructive. Some calcification is noted in the midpelvis unchanged. No gross free fluid or gross free air. There is a slight compression of L1. Impression: Slight compression fracture of L1, old. Gastrostomy tube in left upper quadrant. Calcifications in the pelvis, likely in fibroids. No acute abnormality.
--- NOTE | 2017-04-08 11:09 | Diagnostic Imaging Report ---
Indication: Pain Technique: CHEST 1 VIEW Comparison:03/08/2017 Findings: Compared previous study again noted is an opacity in the left lower lobe, possibly slightly larger than on previous study. The cardiothymic silhouette is unchanged. Tracheostomy remains. Blunting of left phrenic angle remains unchanged. Impression: Rounded opacity in the left lower lobe as previously described, possibly slightly larger than on previous exam. No other change.
[2017-04-08 14:20] LABS: BASOPHILS % (AUTO) 0.6 % (0.0-2.0); EOSINOPHILS % (AUTO) 0.6 % (0.0-3.0); LYMPHOCYTES % (AUTO) 10.1 % (20.0-45.0); MEAN CORPUSCULAR HEMOGLOBIN 28.7 PG (27.0-31.0); MEAN CORPUSCULAR HGB CONC 32.2 G/DL (32.0-36.0); MEAN CORPUSCULAR VOLUME 89 FL (80-99); MEAN PLATELET VOLUME 6.3 FL (6.5-10.1); MONOCYTES % (AUTO) 9.7 % (1.0-10.0); NEUTROPHILS % (AUTO) 79.1 % (45.0-75.0); PLATELET COUNT 194 K/UL (150-450); RED BLOOD COUNT 3.09 M/UL (4.20-5.40); RED CELL DISTRIBUTION WIDTH 12.8 % (11.6-14.8); WHITE BLOOD COUNT 14.9 K/UL (4.8-10.8)
--- NOTE | 2017-04-08 18:01 | General Progress Note ---
Assessment/Plan Assessment/Plan GI CONSULT ATSP for dark stools Message left with son to call back to discuss NPO PPI Follow CBC Thank you Yina Li MD Subjective Allergies: Coded Allergies: PENICILLINS (Verified Allergy, Unknown, 07/31/16) Objective Last 24 Hour Vital Signs Date Time Temp Pulse Resp B/P (MAP) Pulse Ox O2 Delivery O2 Flow Rate FiO2 04/08/17 17:05 95 26 35 04/08/17 16:00 97.8 98 25 90/52 98 Mechanical Ventilator 35 04/08/17 15:20 35 04/08/17 15:20 84 04/08/17 15:00 87 22 35 04/08/17 13:00 92 26 35 04/08/17 11:21 84 04/08/17 11:21 35 04/08/17 11:21 97.8 84 20 108/58 100 Mechanical Ventilator 35 04/08/17 10:59 98 24 35 04/08/17 09:02 96 31 35 04/08/17 08:44 89 04/08/17 08:00 89 04/08/17 08:00 98.4 92 22 95/51 100 Mechanical Ventilator 35 04/08/17 08:00 97.5 89 22 108/58 100 Mechanical Ventilator 35 04/08/17 08:00 35 04/08/17 07:13 90 22 35 04/08/17 05:03 97 21 35 04/08/17 04:00 97 04/08/17 04:00 35 04/08/17 04:00 97.4 96 22 94/46 100 Mechanical Ventilator 35 04/08/17 02:41 95 21 35 04/08/17 00:51 113 28 35 04/08/17 00:50 97.7 99 22 104/55 100 Mechanical Ventilator 35 04/08/17 00:00 35 04/08/17 00:00 97.9 102 22 111/59 100 Mechanical Ventilator 35 04/08/17 00:00 101 04/07/17 23:24 106 25 35 04/07/17 22:35 98.8 107 22 99/44 100 Mechanical Ventilator 35 04/07/17 22:35 98.8 107 22 99/44 100 Mechanical Ventilator 35 04/07/17 21:50 98.8 110 24 103/50 100 Mechanical Ventilator 35 04/07/17 21:35 100.1 107 26 94/43 100 Mechanical Ventilator 04/07/17 20:57 106 29 35 04/07/17 19:28 99.8 116 24 100/56 100 Mechanical Ventilator 35 04/07/17 19:08 129 28 35 04/07/17 19:01 97.0 126 30 94/59 100 Mechanical Ventilator 35 Intake and Output 04/08/17 04/09/17 19:00 07:00 Intake Total 1220 ml Balance 1220 ml Intake Free Water 100 ml IV Total 800 ml Tube Feeding 320 ml Laboratory Tests 04/07/17 18:20: White Blood Count 24.7*H, Red Blood Count 2.63L, Hemoglobin 7.5L, Hematocrit 23.7L, Mean Corpuscular Volume 90, Mean Corpuscular Hemoglobin 28.7, Mean Corpuscular Hemoglobin Concent 31.8L, Red Cell Distribution Width 12.7, Platelet Count 347, Mean Platelet Volume 6.0L, Neutrophils (%) (Auto) , Lymphocytes (%) (Auto) , Monocytes (%) (Auto) , Eosinophils (%) (Auto) , Basophils (%) (Auto) , Differential Total Cells Counted 100, Neutrophils % ( Manual) 82H, Lymphocytes % (Manual) 15L, Monocytes % (Manual) 2, Eosinophils % ( Manual) 0, Basophils % (Manual) 0, Band Neutrophils 1, Platelet Estimate Adequate, Platelet Morphology Normal, Hypochromasia 1+, Anisocytosis 1+, Prothrombin Time 10.2, Prothromb Time International Ratio 1.0, Activated Partial Thromboplast Time 20L, Sodium Level 139, Potassium Level 4.8, Chloride Level 102, Carbon Dioxide Level 27, Anion Gap 10, Blood Urea Nitrogen 72H, Creatinine 1.1, Estimat Glomerular Filtration Rate , Glucose Level 159H, Lactic Acid Level 2.50H, Calcium Level 9.9, Total Bilirubin 0.2, Aspartate Amino Transf (AST/SGOT) 28, Alanine Aminotransferase (ALT/SGPT) 13, Alkaline Phosphatase 73, Total Creatine Kinase 67, Troponin I 0.002, Pro-B-Type Natriuretic Peptide 248H, Total Protein 8.1, Albumin 3.2L, Globulin 4.9, Albumin /Globulin Ratio 0.7L, Lipase 175 04/07/17 18:50: Urine Color Pale yellow, Urine Appearance Clear, Urine pH 5, Urine Specific [place] 1.015, Urine Protein Negative, Urine Glucose (UA) Negative, Urine Ketones Negative, Urine Occult Blood Negative, Urine Nitrite Negative, Urine Bilirubin Negative, Urine Urobilinogen Normal, Urine Leukocyte Esterase Negative 04/07/17 21:23: Lactic Acid Level 0.70 04/08/17 06:00: Sodium Level 143, Potassium Level 3.7, Chloride Level 112H, Carbon Dioxide Level 25, Anion Gap 6, Blood Urea Nitrogen 39H, Creatinine 0.7, Estimat Glomerular Filtration Rate , Glucose Level 100, Calcium Level 7.9#L, Total Bilirubin 0.3, Aspartate Amino Transf (AST/SGOT) 20, Alanine Aminotransferase ( ALT/SGPT) 10L, Alkaline Phosphatase 45L, Total Protein 5.3#L, Albumin 2.1L, Globulin 3.2, Albumin/Globulin Ratio 0.7L, Magnesium Level 1.8, Thyroid Stimulating Hormone (TSH) 0.020L, Digoxin Level 0.6L 04/08/17 09:00: White Blood Count 14.6H, Red Blood Count 2.92L, Hemoglobin 8.4L, Hematocrit 25.9L, Mean Corpuscular Volume 89, Mean Corpuscular Hemoglobin 28.9, Mean Corpuscular Hemoglobin Concent 32.6, Red Cell Distribution Width 12.3, Platelet Count 191, Mean Platelet Volume 6.3L, Neutrophils (%) (Auto) 77.7H, Lymphocytes (%) (Auto) 10.5L, Monocytes (%) (Auto) 10.2H, Eosinophils (%) (Auto) 1.0, Basophils (%) (Auto) 0.6 04/08/17 09:28: Arterial Blood pH 7.390, Arterial Blood Partial Pressure CO2 33.6L, Arterial Blood Partial Pressure O2 145.2H, Arterial Blood HCO3 20.0L, Arterial Blood Oxygen Saturation 98.2H, Arterial Blood Base Excess -4.4, Talha Test Positive 04/08/17 14:10: White Blood Count 14.9H, Red Blood Count 3.09L, Hemoglobin 8.9L, Hematocrit 27.5L, Mean Corpuscular Volume 89, Mean Corpuscular Hemoglobin 28.7, Mean Corpuscular Hemoglobin Concent 32.2, Red Cell Distribution Width 12.8, Platelet Count 194, Mean Platelet Volume 6.3L, Neutrophils (%) (Auto) 79.1H, Lymphocytes (%) (Auto) 10.1L, Monocytes (%) (Auto) 9.7, Eosinophils (%) (Auto) 0.6, Basophils (%) (Auto) 0.6 Height (Feet): 5 Weight (Pounds): 99 LOUISYINA Apr 08, 2017 18:01
--- NOTE | 2017-04-08 19:45 | History and Physical Report ---
DATE OF ADMISSION: 04/07/2017 CHIEF COMPLAINT: GI bleed. HISTORY OF PRESENT ILLNESS: The patient is a 81-year-old female. She has a history of head and neck cancer, chronic respiratory failure, and dysphagia. She has a history of recurrent urinary tract infection. She does have a history of prior GI bleed. She was brought in by family members after they noted one to two days of melena. The patient denies any abdominal pain, although there has been some discomfort around her G-tube site. There are no reports of any fevers or chills. No chest pain or shortness of breath. In the emergency room, her hemoglobin was 7.5. She is now status post two units of packed red blood cells. She has had no further evidence of bleeding. PAST MEDICAL HISTORY: As above. PAST SURGICAL HISTORY: Includes trach and a G-tube. CURRENT MEDICATIONS: Reconciled and reviewed. ALLERGIES: Include penicillin. SOCIAL HISTORY: There is no known history of tobacco, ethanol, or drugs. FAMILY HISTORY: Noncontributory. REVIEW OF SYSTEMS: Unobtainable as the patient is currently on the vent and confused. PHYSICAL EXAMINATION: VITAL SIGNS: Temperature 98 degrees, blood pressure 108/58, pulse of 92, and respirations 22. GENERAL: The patient is a well-developed thin female, in no apparent distress, on the vent. She is arousable. NECK: Supple. Trachea is midline. There is no discharge. HEART: Regular rate and rhythm. LUNGS: Clear. ABDOMEN: Soft, nontender, and nondistended. EXTREMITIES: Without clubbing, cyanosis, or edema. LABORATORY DATA: White count was 24,000, hemoglobin 7.5, hematocrit 23.7, and platelet count 347,000. Sodium 139, potassium 4.8, chloride 102, BUN 72, and creatinine 1.1. Lactic acid was 2.5. Troponin 0.002. ASSESSMENT: This is a pleasant, but unfortunate female with history of chronic respiratory failure, head and neck cancer, prior history of gastrointestinal bleed, admitted with a likely recurrent upper gastrointestinal bleed. 1. Gastrointestinal bleed. 2. Possible sepsis. 3. Lactic acidosis, secondary to gastrointestinal bleed. 4. History of chronic respiratory failure. 5. Rule out sepsis. PLAN: Serial CBCs. IV proton pump inhibitor. Transfuse hemoglobin greater than 8.5. GI consultation. Continue vent support and respiratory treatments. Empiric antibiotic therapy. Follow pending cultures. Plan of care was discussed with the patient's son. Rico Madrigal M.D. DR: GAVIN JOB#: [id number] CC:
[2017-04-08] MEDS: Vancomycin 500mg/D5W 110ml IVPB SCH ×2 (20:59)
[2017-04-08] MEDS: Pantoprazole Inj IVP SCH (21:21)
--- NOTE | 2017-04-08 22:15 | Progress Note ---
DATE: 04/08/2017 CARDIOLOGY PROGRESS NOTE SUBJECTIVE: No new bleeding noted from the GI tract. OBJECTIVE: VITAL SIGNS: Blood pressure 95/51, pulse 92, respirations 22, and afebrile. Monitored rhythm sinus. NECK: Thin trach secretions. LUNGS: Bilateral breath sounds with no wheezing. HEART: Regular rhythm and rate. Normal S1 and S2. ABDOMEN: Soft. G-tube intact. EXTREMITIES: With no edema. LABORATORY DATA: White count decreased from 24.7 to 14.9 and hemoglobin 8.9 posttransfusion. Potassium 3.7, BUN 39, and creatinine 0.7. Albumin 2.1. TSH 0.02. IMPRESSION: 1. Gastrointestinal bleeding. 2. Shock. 3. Lactic acidosis. 4. Severe anemia. 5. Severe protein-calorie malnutrition. 6. Metastatic head and neck cancer. 7. Ventilator-dependent respiratory failure. 8. Paroxysmal supraventricular tachycardia. 9. Secondary sinus tachycardia. PLAN: 1. Monitor hemoglobin. 2. Transfuse if less than 8 g. 3. Ventilator support. 4. Off all antiplatelet and anticoagulant drugs. 5. Continue current antiarrhythmic regimen. Chi Bhatti M.D. DR: MADAN JOB#: [id number] CC:
[2017-04-08] MEDS: Cefepime HCl 1 GM in D5W 55 ML IVPB SCH (22:27)
[2017-04-09] VITALS (11 sets, daily range): BP systolic 82–131; BP diastolic 37–73
--- NOTE | 2017-04-09 07:57 | General Progress Note ---
Assessment/Plan Problem List: (1) new onset of generalised seizure activity (2) Acute GI hemorrhage ICD Codes: K92.2 - Gastrointestinal hemorrhage, unspecified SNOMED: 24064868 (3) Tongue malignant neoplasm ICD Codes: C02.9 - Malignant neoplasm of tongue, unspecified SNOMED: 161891657 (4) Lung nodule seen on imaging study ICD Codes: R91.1 - Solitary pulmonary nodule SNOMED: 004348976 Status: stable Assessment/Plan serial cbc ppi egd vent resp rx suctioning Subjective ROS Limited/Unobtainable: No Constitutional: Reports: malaise, weakness HEENT: Reports: no symptoms Cardiovascular: Reports: no symptoms Respiratory: Reports: cough Gastrointestinal/Abdominal: Reports: blood in stool Genitourinary: Reports: no symptoms Neurologic/Psychiatric: Reports: pre-existing deficit Endocrine: Reports: no symptoms Hematologic/Lymphatic: Reports: anemia Allergies: Coded Allergies: PENICILLINS (Verified Allergy, Unknown, 07/31/16) All Systems: reviewed and negative except above Subjective +melena. going for endoscopy today. on the vent. d/w son x 15 mins yesterday Objective Last 24 Hour Vital Signs Date Time Temp Pulse Resp B/P (MAP) Pulse Ox O2 Delivery O2 Flow Rate FiO2 04/09/17 07:50 35 04/09/17 07:50 78 04/09/17 07:29 88 20 35 04/09/17 05:24 87 20 35 04/09/17 04:00 98.4 98 25 113/50 99 Mechanical Ventilator 35 04/09/17 04:00 94 04/09/17 04:00 35 04/09/17 03:27 88 19 35 04/09/17 01:28 82 20 35 04/09/17 00:00 98.8 98 25 102/53 99 Mechanical Ventilator 35 04/09/17 00:00 35 04/09/17 00:00 95 04/08/17 23:27 87 19 35 04/08/17 21:33 85 21 35 04/08/17 20:00 35 04/08/17 20:00 89 04/08/17 20:00 98.4 98 25 100/54 98 Mechanical Ventilator 35 04/08/17 19:36 95 19 35 04/08/17 17:05 95 26 35 04/08/17 16:00 97.8 98 25 90/52 98 Mechanical Ventilator 35 04/08/17 15:20 35 04/08/17 15:20 84 04/08/17 15:00 87 22 35 04/08/17 13:00 92 26 35 04/08/17 11:21 84 04/08/17 11:21 35 04/08/17 11:21 97.8 84 20 108/58 100 Mechanical Ventilator 35 04/08/17 10:59 98 24 35 04/08/17 09:02 96 31 35 04/08/17 08:44 89 04/08/17 08:00 89 04/08/17 08:00 98.4 92 22 95/51 100 Mechanical Ventilator 35 04/08/17 08:00 97.5 89 22 108/58 100 Mechanical Ventilator 35 04/08/17 08:00 35 Laboratory Tests 04/08/17 09:00: White Blood Count 14.6H, Red Blood Count 2.92L, Hemoglobin 8.4L, Hematocrit 25.9L, Mean Corpuscular Volume 89, Mean Corpuscular Hemoglobin 28.9, Mean Corpuscular Hemoglobin Concent 32.6, Red Cell Distribution Width 12.3, Platelet Count 191, Mean Platelet Volume 6.3L, Neutrophils (%) (Auto) 77.7H, Lymphocytes (%) (Auto) 10.5L, Monocytes (%) (Auto) 10.2H, Eosinophils (%) (Auto) 1.0, Basophils (%) (Auto) 0.6 04/08/17 09:28: Arterial Blood pH 7.390, Arterial Blood Partial Pressure CO2 33.6L, Arterial Blood Partial Pressure O2 145.2H, Arterial Blood HCO3 20.0L, Arterial Blood Oxygen Saturation 98.2H, Arterial Blood Base Excess -4.4, Talha Test Positive 04/08/17 14:10: White Blood Count 14.9H, Red Blood Count 3.09L, Hemoglobin 8.9L, Hematocrit 27.5L, Mean Corpuscular Volume 89, Mean Corpuscular Hemoglobin 28.7, Mean Corpuscular Hemoglobin Concent 32.2, Red Cell Distribution Width 12.8, Platelet Count 194, Mean Platelet Volume 6.3L, Neutrophils (%) (Auto) 79.1H, Lymphocytes (%) (Auto) 10.1L, Monocytes (%) (Auto) 9.7, Eosinophils (%) (Auto) 0.6, Basophils (%) (Auto) 0.6 Height (Feet): 5 Weight (Pounds): 99 Objective GENERAL: The patient is a well-developed thin female, in no apparent distress, on the vent. She is arousable. NECK: Supple. Trachea is midline. There is no discharge. HEART: Regular rate and rhythm. LUNGS: Clear. ABDOMEN: Soft, nontender, and nondistended. EXTREMITIES: Without clubbing, cyanosis, or edema. CHRISTINA HAMMOND Apr 09, 2017 07:57
--- NOTE | 2017-04-09 08:22 | Anethesia Preoperative Eval ---
Anesthesia Pre-op PMH/ROS General Date of Evaluation: Apr 09, 2017 Anesthesiologist: Hellen ASA Score: ASA 4 Mallampati Score Class I : Soft palate, uvula, fauces, pillars visible Class II: Soft palate, uvula, fauces visible Class III: Soft palate, base of uvula visible Class IV: Only hard plate visible Mallampati Classification: Class III Surgeon: Jen Diagnosis: GI Bleed Surgical Procedure: EGD Anesthesia History: none Social History: smoking Family History: no anesthesia problems Allergies: Coded Allergies: PENICILLINS (Verified Allergy, Unknown, 07/31/16) Medications: see eMAR Past Medical History Pulmonary: Reports: COPD, other - Tracheostomy, Vent Failure Gastrointestinal/Genitourinary: Reports: GERD, other - mouth, Esophagael CA Neurologic/Psychiatric: Reports: dementia, other - Seizures Endocrine: Reports: hypothyroidism Hematology/Immune: Reports: anemia Anesthesia Pre-op Phys. Exam Physician Exam Last Vital Signs Date Time Temp Pulse Resp B/P (MAP) Pulse Ox O2 Delivery O2 Flow Rate FiO2 04/09/17 07:50 35 04/09/17 07:50 78 04/09/17 07:29 20 04/09/17 04:00 98.4 113/50 99 Mechanical Ventilator Constitutional: NAD Neurologic: CN 2-12 intact Cardiovascular: RRR Respiratory: CTA Gastrointestinal: S/NT/ND Airway Exam Mallampati Score: Class III MO: limited ROM: limited Teeth: intact Anesthesia Pre-op A/P Labs Hematology Test 04/08/17 09:00 04/08/17 14:10 White Blood Count 14.6 K/UL (4.8-10.8) H 14.9 K/UL (4.8-10.8) H Red Blood Count 2.92 M/UL (4.20-5.40) L 3.09 M/UL (4.20-5.40) L Hemoglobin 8.4 G/DL (12.0-16.0) L 8.9 G/DL (12.0-16.0) L Hematocrit 25.9 % (37.0-47.0) L 27.5 % (37.0-47.0) L Mean Corpuscular Volume 89 FL (80-99) 89 FL (80-99) Mean Corpuscular Hemoglobin 28.9 PG (27.0-31.0) 28.7 PG (27.0-31.0) Mean Corpuscular Hemoglobin Concent 32.6 G/DL (32.0-36.0) 32.2 G/DL (32.0-36.0) Red Cell Distribution Width 12.3 % (11.6-14.8) 12.8 % (11.6-14.8) Platelet Count 191 K/UL (150-450) 194 K/UL (150-450) Mean Platelet Volume 6.3 FL (6.5-10.1) L 6.3 FL (6.5-10.1) L Neutrophils (%) (Auto) 77.7 % (45.0-75.0) H 79.1 % (45.0-75.0) H Lymphocytes (%) (Auto) 10.5 % (20.0-45.0) L 10.1 % (20.0-45.0) L Monocytes (%) (Auto) 10.2 % (1.0-10.0) H 9.7 % (1.0-10.0) Eosinophils (%) (Auto) 1.0 % (0.0-3.0) 0.6 % (0.0-3.0) Basophils (%) (Auto) 0.6 % (0.0-2.0) 0.6 % (0.0-2.0) Risk Assessment & Plan Assessment: ASA 4 Plan: GA Status Change Before Surgery: Marcellus Wilson MD Apr 09, 2017 08:22
[2017-04-09] MEDS: Pantoprazole Inj IVP SCH ×2 (08:43→21:34)
--- NOTE | 2017-04-09 08:44 | Pre-Procedure Note/Attestation ---
Pre-Procedure Note/Attestation Complete Prior to Procedure Planned Procedure: not applicable Procedure Narrative: EGD Indications for Procedure Pre-Operative Diagnosis: GIB Attestation I attest that I discussed the nature of the procedure; its benefits; risks and complications; and alternatives (and the risks and benefits of such alternatives ), prior to the procedure, with the patient (or the patient's legal employee relations representative). I attest that, if there was a reasonable possibility of needing a blood transfusion, the patient (or the patient's legal employee relations representative) was given the [facility] standardized written summary, pursuant to the Lance Aaron Blood Safety Act ([place] Health and Safety Code # 1645, as amended). I attest that I re-evaluated the patient just prior to the surgery and that there has been no change in the patient's H&P, except as documented below: BIN MYERS Apr 09, 2017 08:44
[2017-04-09] MEDS ORDERED: Propofol 200mg/20ml IV ONE (08:45)
[2017-04-09] MEDS ORDERED: Midazolam 2mg/2ml Inj ONE (08:45)
[2017-04-09] MEDS ORDERED: Lidocaine 1% MPF 10mg/ml 5ml ONE (08:45)
[2017-04-09] MEDS ORDERED: NS 500ML IV ONE (08:56)
--- NOTE | 2017-04-09 09:06 | Immediate Post-Op Evaluation ---
Immediate Post-Op Evalulation Immediate Post-Op Evalulation Procedure: EGD Date of Evaluation: Apr 09, 2017 Time of Evaluation: 09:08 IV Fluids: 200 NS Blood Products: 0 Estimated Blood Loss: 1 Urinary Output: 0 Blood Pressure Systolic: 102 Blood Pressure Diastolic: 46 Pulse Rate: 86 Respiratory Rate: 20 - Mech Vent O2 Sat by Pulse Oximetry: 100 Temperature (Fahrenheit): 97.4 Pain Score (1-10): 1 Nausea: No Vomiting: No Complications 0 Patient Status: awake, reacts, patent, none Hydration Status: adequate Marcellus Macedo MD Apr 09, 2017 09:06
--- NOTE | 2017-04-09 09:07 | 48 Hour Post Anesthesia Eval ---
Post Anesthesia Evaluation Procedure: EGD Date of Evaluation: Apr 09, 2017 Time of Evaluation: 11:32 Blood Pressure Systolic: 101 0: 76 Pulse Rate: 84 Respiratory Rate: 20 - Mech Vent Temperature (Fahrenheit): 97.4 O2 Sat by Pulse Oximetry: 100 Airway: patent Nausea: No Vomiting: No Pain Intensity: 1 Hydration Status: adequate Cardiopulmonary Status: Stable Mental Status/LOC: patient returned to baseline Follow-up Care/Observations: 0 Post-Anesthesia Complications: 0 Follow-up care needed: N/A Marcellus Macedo MD Apr 09, 2017 09:07
[2017-04-09] MEDS: Digoxin Elixir 0.125mg GT SCH (09:49)
[2017-04-09] MEDS: levETIRAcetam 500mg/5ml Liquid GT SCH ×2 (09:50→18:24)
[2017-04-09] MEDS: Multivitamins W/Minerals 15 ML UDC GT SCH (09:50)
[2017-04-09] MEDS: Midodrine 10mg tab GT SCH ×3 (09:50→18:24)
--- NOTE | 2017-04-09 10:09 | Endoscopy Procedure Note ---
Endoscopy Procedure Note Indication for Procedure: GIB Procedures Performed: EGD Operative Findings/Diagnosis: failed EGD Specimen: none Pt Tolerated Procedure Well: Yes Estimated Blood Loss: none Anesthesiologist: Hellen Anesthesia: MAC Medication Given: see anesthesia record Implant(s) used?: No 50 yrs or older w/o bx or poly: Not Applicable 10yrs. F/U not recommended: Not Applicable If not recommended, why?: BIN MYERS Apr 09, 2017 10:08
--- NOTE | 2017-04-09 10:10 | Brief Operative Note ---
Immediate Post Operative Note Operative Note Chief Complaint: GIB Pre-op Diagnosis: GIB Procedure: failed EGD Post-op Diagnosis: Failed EGD Post-op Diagnosis: same as pre-op plus Surgeon: Jen Anesthesia: MAC Specimen: none Complications: none Condition: stable Fluids: see anesth Estimated Blood Loss: none Drains: none Implant(s) used?: No BIN MYERS Apr 09, 2017 10:10
--- NOTE | 2017-04-09 10:19 | General Progress Note ---
Assessment/Plan Assessment/Plan Assessment - malnutrition - H&N CA - s/p XRT - GIB - failed EGD due to "frozen" throat / neck from XRT - anemia Recommendations - restart TF - emperic PPI - monitor H&H - If clinical e/o rebleeding, will get UGI via GT Subjective Allergies: Coded Allergies: PENICILLINS (Verified Allergy, Unknown, 07/31/16) Subjective Above noted NPO for EGD Attempted EGD - unable to pass through the hypopharynx due to severe radiation induced tissue distortion / contraction Albumin 2.1 Objective Last 24 Hour Vital Signs Date Time Temp Pulse Resp B/P (MAP) Pulse Ox O2 Delivery O2 Flow Rate FiO2 04/09/17 09:53 97.9 82 21 110/50 99 Mechanical Ventilator 35 04/09/17 09:49 82 04/09/17 09:12 84 20 100 04/09/17 09:11 86 20 100 04/09/17 09:06 90 20 35 04/09/17 08:00 97.8 84 21 119/55 99 Mechanical Ventilator 35 04/09/17 07:50 35 04/09/17 07:50 78 04/09/17 07:29 88 20 35 04/09/17 05:24 87 20 35 04/09/17 04:00 98.4 98 25 113/50 99 Mechanical Ventilator 35 04/09/17 04:00 94 04/09/17 04:00 35 04/09/17 03:27 88 19 35 04/09/17 01:28 82 20 35 04/09/17 00:00 98.8 98 25 102/53 99 Mechanical Ventilator 35 04/09/17 00:00 35 04/09/17 00:00 95 04/08/17 23:27 87 19 35 04/08/17 21:33 85 21 35 04/08/17 20:00 35 04/08/17 20:00 89 04/08/17 20:00 98.4 98 25 100/54 98 Mechanical Ventilator 35 04/08/17 19:36 95 19 35 04/08/17 17:05 95 26 35 04/08/17 16:00 97.8 98 25 90/52 98 Mechanical Ventilator 35 04/08/17 15:20 35 04/08/17 15:20 84 04/08/17 15:00 87 22 35 04/08/17 13:00 92 26 35 04/08/17 11:21 84 04/08/17 11:21 35 04/08/17 11:21 97.8 84 20 108/58 100 Mechanical Ventilator 35 04/08/17 10:59 98 24 35 Laboratory Tests 04/08/17 14:10: White Blood Count 14.9H, Red Blood Count 3.09L, Hemoglobin 8.9L, Hematocrit 27.5L, Mean Corpuscular Volume 89, Mean Corpuscular Hemoglobin 28.7, Mean Corpuscular Hemoglobin Concent 32.2, Red Cell Distribution Width 12.8, Platelet Count 194, Mean Platelet Volume 6.3L, Neutrophils (%) (Auto) 79.1H, Lymphocytes (%) (Auto) 10.1L, Monocytes (%) (Auto) 9.7, Eosinophils (%) (Auto) 0.6, Basophils (%) (Auto) 0.6 Height (Feet): 5 Weight (Pounds): 99 Objective Debilitated elderly Woman NCAT Neck stiff from XRT, (+) trach coarse BS RR abd soft, ND, (+) GT no edema OBS BIN MYERS Apr 09, 2017 10:19
[2017-04-09] MEDS ORDERED: Tubing IV Secondary IV ONE (10:32)
--- NOTE | 2017-04-09 12:00 | Consultation ---
DATE OF CONSULTATION: 04/08/2017 GASTROENTEROLOGY CONSULTATION CHIEF COMPLAINT: I was asked to see this patient for evaluation of dark stools. HISTORY OF PRESENT ILLNESS: The patient is an unfortunate 81-year-old white woman with multiple medical problems including respiratory failure, who was on a long-term tracheostomy and ventilator arrangement, who was brought into the hospital due to dark and possibly melanotic stools for about a week. The stools have been intermittently tarry. She has history of peptic ulcer disease and has been fed by a gastrostomy tube on a long-term basis. I left a message to the patient's son to call me back to discuss the management of this patient and I am waiting for his call back. 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 SOCIAL HISTORY: The patient is a [place] resident. She has had no recent history of smoking or drinking. FAMILY HISTORY: Noncontributory. REVIEW OF SYSTEMS: Otherwise negative. PHYSICAL EXAMINATION: GENERAL: Debilitated, very thin, elderly woman, in no distress. HEENT: Normocephalic and atraumatic. Tracheostomy catheter was in place. CHEST: Coarse breath sounds. CARDIOVASCULAR: Reveals a regular rate. ABDOMEN: Soft. Good bowel sounds. EXTREMITIES: Revealed no edema. LABORATORY DATA: Noted. ASSESSMENT: This patient presents with dark stools and anemia, possibly consistent with gastrointestinal bleeding. Given the patient's history of peptic ulcer disease, another endoscopy will be worthwhile to evaluate the patient for recurrent ulceration. She also has an elevated white count. Therefore, broad-spectrum antibiotics would be advisable. She will be placed on proton pump inhibitor. Her CBC should be followed closely. We will discuss the options with the patient's son as soon as he calls back. Recommendations per above discussion and per orders written in the chart. Thank you for asking me to participate in the care of this patient. Yina Li M.D. DR: MEGAN JOB#: [id number] CC:
--- NOTE | 2017-04-09 19:23 | Pulmonology Progress Note ---
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 GT, trach, anemia, possible GIB PLAN GI evaluation monitor HH care noted respiratory care as is soft tip catheter for home use- son aware Ventilatory support as is home meds noted supportive care as outlined suction with caution and monitor for bleeding no wean planned at present oxygen therapy noted trach change monthly prognosis guarded dc planning once stable and cleared by gi medication list reviewed impression, plan, and exam edited and reviewed in detail care discussed with RN Subjective ROS Limited/Unobtainable: Yes Allergies: Coded Allergies: PENICILLINS (Verified Allergy, Unknown, 07/31/16) Subjective on the vent care noted and discussed Objective Last 24 Hour Vital Signs Date Time Temp Pulse Resp B/P (MAP) Pulse Ox O2 Delivery O2 Flow Rate FiO2 04/09/17 17:03 79 19 35 04/09/17 16:03 78 04/09/17 16:03 35 04/09/17 16:01 97.0 77 18 124/57 93 Room Air 04/09/17 15:20 78 23 35 04/09/17 13:34 81 23 35 04/09/17 13:05 88 20 35 04/09/17 12:00 35 04/09/17 12:00 97.9 85 23 127/59 100 Mechanical Ventilator 35 04/09/17 12:00 83 04/09/17 10:50 87 20 35 04/09/17 09:53 97.9 82 21 110/50 99 Mechanical Ventilator 35 04/09/17 09:49 82 04/09/17 09:30 83 21 83/40 99 Mechanical Ventilator 35 04/09/17 09:25 84 21 82/39 96 Mechanical Ventilator 35 04/09/17 09:20 83 21 86/37 96 Mechanical Ventilator 35 04/09/17 09:15 83 21 82/37 99 Mechanical Ventilator 35 04/09/17 09:12 84 20 100 04/09/17 09:11 86 20 100 04/09/17 09:06 90 20 35 04/09/17 08:00 97.8 84 21 119/55 99 Mechanical Ventilator 35 04/09/17 07:50 35 04/09/17 07:50 78 04/09/17 07:29 88 20 35 04/09/17 05:24 87 20 35 04/09/17 04:00 98.4 98 25 113/50 99 Mechanical Ventilator 35 04/09/17 04:00 94 04/09/17 04:00 35 04/09/17 03:27 88 19 35 04/09/17 01:28 82 20 35 04/09/17 00:00 98.8 98 25 102/53 99 Mechanical Ventilator 35 04/09/17 00:00 35 04/09/17 00:00 95 04/08/17 23:27 87 19 35 04/08/17 21:33 85 21 35 04/08/17 20:00 35 04/08/17 20:00 89 04/08/17 20:00 98.4 98 25 100/54 98 Mechanical Ventilator 35 04/08/17 19:36 95 19 35 Intake and Output 04/09/17 04/10/17 19:00 07:00 Intake Total 485 ml Balance 485 ml IV Total 325 ml Tube Feeding 160 ml # Bowel Movements 2 Objective WDWN NAD trach reduced breath sounds bilaterally without rhonchi or wheeze [id number] without MRG NABS nontender no HSM; GT no CC mild edema weak nonfocal Microbiology Date/Time Source Procedure Growth Status 04/07/17 18:30 Blood Blood Culture - Preliminary NO GROWTH AFTER 24 HOURS Resulted 04/07/17 18:20 Blood Blood Culture - Preliminary NO GROWTH AFTER 24 HOURS Resulted 04/07/17 17:00 Sputum Gram Stain Pending Resulted 04/07/17 17:00 Sputum Sputum Culture - Preliminary Resulted Current Medications Medications (Trade) Dose Ordered Sig/Josiah Route PRN Reason Start Time Stop Time Status Last Admin Dose Admin Amitriptyline HCl (Elavil) 10 mg BEDTIME GT 04/08/17 21:00 05/08/17 20:59 Cefepime HCl 1 gm/ Dextrose 55 ml @ 110 mls/hr Q24H IVPB 04/08/17 21:00 04/15/17 20:59 04/08/17 22:27 Digoxin (Lanoxin) 0.125 mg DAILY GT 04/08/17 09:00 05/08/17 08:59 04/09/17 09:49 Levetiracetam (Keppra) 500 mg BID GT 04/08/17 09:00 05/08/17 08:59 04/09/17 18:24 Levothyroxine Sodium (Synthroid) 150 mcg ACBREAKFAST GT 04/08/17 06:30 05/08/17 06:29 04/09/17 09:50 Midodrine (Pro-Amatine) 10 mg THREE TIMES A DAY GT 04/08/17 09:00 05/08/17 08:59 04/09/17 18:24 Multivitamins (Multivitamins W/ Minerals 15ml Liquid) 15 ml DAILY GT 04/08/17 09:00 05/08/17 08:59 04/09/17 09:50 Pantoprazole (Protonix) 40 mg Q12HR IVP 04/08/17 21:00 05/08/17 20:59 04/09/17 08:43 Sodium Chloride 1,000 ml @ 100 mls/hr Q10H IV 04/08/17 02:00 05/08/17 01:59 04/09/17 14:02 Vancomycin HCl (Vanco rx to dose) 1 ea DAILY PRN MISC Per rx protocol 04/08/17 01:15 05/08/17 01:14 Vancomycin HCl 500 mg/Dextrose 110 ml @ 110 mls/hr Q24H IVPB 04/08/17 20:00 04/13/17 19:59 04/08/17 20:59 MARCY MAJOR Apr 09, 2017 19:23
--- NOTE | 2017-04-09 20:20 | Cardiology Report ---
APPROVED REPORT EKG Measurement Heart [id number] Sinus tachycardia Nonspecific ST and T wave abnormality Abnormal ECG
[2017-04-09] MEDS: Vancomycin 500mg/D5W 110ml IVPB SCH ×2 (20:43)
[2017-04-09] MEDS: Cefepime HCl 1 GM in D5W 55 ML IVPB SCH (21:35)
[2017-04-10] VITALS: BP 119/53
[2017-04-10 02:26] VITALS: BP 99/51
[2017-04-10 04:00] VITALS: BP 137/70
[2017-04-10 05:51] LABS: MEAN CORPUSCULAR HEMOGLOBIN 29.5 PG (27.0-31.0); MEAN CORPUSCULAR HGB CONC 32.7 G/DL (32.0-36.0); MEAN CORPUSCULAR VOLUME 90 FL (80-99); MEAN PLATELET VOLUME 6.7 FL (6.5-10.1); PLATELET COUNT 184 K/UL (150-450); RED CELL DISTRIBUTION WIDTH 13.1 % (11.6-14.8); WHITE BLOOD COUNT 12.8 K/UL (4.8-10.8)
[2017-04-10 08:00] VITALS: BP 102/50
[2017-04-10] MEDS: levETIRAcetam 500mg/5ml Liquid GT SCH ×2 (08:27→17:30)
[2017-04-10] MEDS: Midodrine 10mg tab GT SCH ×3 (08:27→17:30)
[2017-04-10] MEDS: Multivitamins W/Minerals 15 ML UDC GT SCH (08:27)
[2017-04-10] MEDS: Digoxin Elixir 0.125mg GT SCH (08:28)
[2017-04-10] MEDS: Pantoprazole Inj IVP SCH ×2 (08:28→22:11)
--- NOTE | 2017-04-10 08:30 | Procedure Note ---
DATE OF PROCEDURE: 04/09/2017 GASTROENTEROLOGY PROCEDURE PROCEDURE: Failed upper gastrointestinal endoscopy. SURGEON: Yina Li M.D. ANESTHESIA: Please see the separate anesthesiologist notes for details. PRE-ENDOSCOPIC DIAGNOSIS: Upper gastrointestinal bleeding. POST-ENDOSCOPIC DIAGNOSIS: Unable to pass the endoscope into the esophagus due to significant neck and laryngeal anatomical distortion. PROCEDURE: The procedure, its risks, indications, alternatives, and possible complications including, but not limited to bleeding, infection, perforation, , and anesthesia complications were explained to the patient's next of kin and an informed consent was obtained. The patient was then sedated in the supine position and a diagnostic upper endoscope was introduced into the oropharynx and advanced into the larynx. The larynx had significant anatomical distortion presumably from the neck cancer in this patient and also from subsequent radiation therapy. The patient's jaw was actually difficult to open, but it was opened enough to allow a pediatric mouthpiece. Subsequently, the neck could not be flexed or extended to allow passage of the endoscope and the pathway through the esophagus was significantly stiffened and distorted. The procedure could therefore not be completed beyond this point. The endoscope was therefore removed and the patient was left to recovery in good condition. COMPLICATIONS: None. ASSESSMENT: This patient has a significant degree of neck stiffness and anatomical distortion due to the already known cancer and the subsequent radiation treatment. This endoscopy was therefore not feasible. The patient should be managed conservatively for now since she is stable. I will continue giving her ulcer medications and resume her tube feedings. Her blood count can be monitored. Should there be any further bleeding, then an upper gastrointestinal x-rays using contrast material through the gastrostomy tube can be attempted. RECOMMENDATIONS: 1. Resume tube feeding. 2. Monitor CBC. 3. Elevate head of bead. Thank you for asking me to participate in the care of this patient. Yina Li M.D. DR: Edilberto JOB#: [id number] CC: MCKENZIE
--- NOTE | 2017-04-10 09:00 | Wound Care Consultation ---
Wound Assessment Wound Assessment : Wound Number: 1 Wound Present on Admission: No New Wound: Yes Status Change of Wound: No Wound Location Body Site Modif: mid Wound Location Body Site: sacral Wound Type: pressure ulcer Ross Test: Does not Ross Pressure Ulcer Stage: II Wound Thickness: Partial Thickness Wound Length: 0.5 Wound Width: 0.5 Wound Depth: less than 0.1 Percent of Wound [place]/Red: 100 Wound Drainage Odor: None/Absent Tissue Surrounding Wound: Erythemic Wound General Appearance: Reddened, Draining Wound Comment #1 Sacral stage II pressure ulcer. Chemical burn and scar tissue on surrounding area Recommendation -Cleanse with saline, pat dry, apply Triad cream to wound bed and to surrounding area, cover Biatain silicone drg daily and PRN soiled/dislodged -Keep clean and dry -Turn and reposition -Low air loss SPR mattress -Offload both heels -Heel protector on both heels -Optimize nutrition -Assess and f/u accordingly for any changes TOMA CORTES RN Apr 10, 2017 09:00
[2017-04-10] MEDS ORDERED: Tubing IV Secondary IV ONE (09:27)
[2017-04-10] MEDS ORDERED: NS 275ml ONE (09:27)
--- NOTE | 2017-04-10 09:37 | Pulmonology Progress Note ---
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 GT, trach, anemia, possible GIB PLAN GI evaluation noted no real change in exam monitor HH care noted respiratory care as is soft tip catheter for home use- son aware Ventilatory support as is home meds noted supportive care as outlined suction with caution and monitor for bleeding no wean planned at present oxygen therapy noted trach change monthly prognosis guarded dc planning once stable and cleared by gi medication list reviewed impression, plan, and exam edited and reviewed in detail care discussed with RN Subjective ROS Limited/Unobtainable: Yes Allergies: Coded Allergies: PENICILLINS (Verified Allergy, Unknown, 07/31/16) Subjective on the vent care noted and discussed recommendations noted Objective Last 24 Hour Vital Signs Date Time Temp Pulse Resp B/P (MAP) Pulse Ox O2 Delivery O2 Flow Rate FiO2 04/10/17 08:43 78 22 35 04/10/17 08:28 85 04/10/17 08:00 97.9 88 25 102/50 100 Mechanical Ventilator 35 04/10/17 08:00 81 04/10/17 08:00 35 04/10/17 07:09 86 24 35 04/10/17 05:18 87 21 35 04/10/17 04:10 82 04/10/17 04:00 98.2 103 22 137/70 100 Nasal Cannula 4.0 04/10/17 04:00 35 04/10/17 03:09 81 22 35 04/10/17 02:26 98.0 84 22 99/51 100 Nasal Cannula 4.0 04/10/17 00:54 87 21 35 04/10/17 00:00 98.0 84 22 119/53 100 Mechanical Ventilator 35 04/10/17 00:00 35 04/10/17 00:00 84 04/09/17 23:21 83 22 35 04/09/17 21:07 75 21 35 04/09/17 20:00 98.6 86 27 131/73 100 Mechanical Ventilator 35 04/09/17 20:00 35 04/09/17 20:00 84 04/09/17 19:57 87 24 35 04/09/17 17:03 79 19 35 04/09/17 16:03 78 04/09/17 16:03 35 04/09/17 16:01 97.0 77 18 124/57 93 Room Air 04/09/17 15:20 78 23 35 04/09/17 13:34 81 23 35 04/09/17 13:05 88 20 35 04/09/17 12:00 35 04/09/17 12:00 97.9 85 23 127/59 100 Mechanical Ventilator 35 04/09/17 12:00 83 04/09/17 10:50 87 20 35 04/09/17 09:53 97.9 82 21 110/50 99 Mechanical Ventilator 35 04/09/17 09:49 82 Objective WDWN NAD trach reduced breath sounds bilaterally without rhonchi or wheeze [id number] without MRG NABS nontender no HSM; GT no CC mild edema weak nonfocal Microbiology Date/Time Source Procedure Growth Status 04/07/17 18:30 Blood Blood Culture - Preliminary NO GROWTH AFTER 48 HOURS Resulted 04/07/17 18:20 Blood Blood Culture - Preliminary NO GROWTH AFTER 48 HOURS Resulted 04/07/17 17:00 Sputum Gram Stain - Final Resulted 04/07/17 17:00 Sputum Culture - Preliminary Gram Negative Bacillus 1 Usual Upper Respiratory Anyi Resulted Laboratory Tests 04/10/17 04:00: White Blood Count 12.8H, Red Blood Count 2.60L, Hemoglobin 7.7L, Hematocrit 23.4L, Mean Corpuscular Volume 90, Mean Corpuscular Hemoglobin 29.5, Mean Corpuscular Hemoglobin Concent 32.7, Red Cell Distribution Width 13.1, Platelet Count 184, Mean Platelet Volume 6.7, Neutrophils (%) (Auto) , Lymphocytes (%) ( Auto) , Monocytes (%) (Auto) , Eosinophils (%) (Auto) , Basophils (%) (Auto) Current Medications Medications (Trade) Dose Ordered Sig/Josiah Route PRN Reason Start Time Stop Time Status Last Admin Dose Admin Amitriptyline HCl (Elavil) 10 mg BEDTIME GT 04/08/17 21:00 05/08/17 20:59 04/09/17 21:34 Cefepime HCl 1 gm/ Dextrose 55 ml @ 110 mls/hr Q24H IVPB 04/08/17 21:00 04/15/17 20:59 04/09/17 21:35 Chlorhexidine Gluconate (Cathy-Hex 2%) 1 applic Q24H TOPIC 04/10/17 20:00 05/10/17 19:59 Digoxin (Lanoxin) 0.125 mg DAILY GT 04/08/17 09:00 05/08/17 08:59 04/10/17 08:28 Levetiracetam (Keppra) 500 mg BID GT 04/08/17 09:00 05/08/17 08:59 04/10/17 08:27 Levothyroxine Sodium (Synthroid) 150 mcg ACBREAKFAST GT 04/08/17 06:30 05/08/17 06:29 04/10/17 06:03 Midodrine (Pro-Amatine) 10 mg THREE TIMES A DAY GT 04/08/17 09:00 05/08/17 08:59 04/10/17 08:27 Multivitamins (Multivitamins W/ Minerals 15ml Liquid) 15 ml DAILY GT 04/08/17 09:00 05/08/17 08:59 04/10/17 08:27 Pantoprazole (Protonix) 40 mg Q12HR IVP 04/08/17 21:00 05/08/17 20:59 04/10/17 08:28 Sodium Chloride 1,000 ml @ 100 mls/hr Q10H IV 04/08/17 02:00 05/08/17 01:59 04/10/17 04:05 Vancomycin HCl (Vanco rx to dose) 1 ea DAILY PRN MISC Per rx protocol 04/08/17 01:15 05/08/17 01:14 Vancomycin HCl 500 mg/Dextrose 110 ml @ 110 mls/hr Q24H IVPB 04/08/17 20:00 04/13/17 19:59 04/09/17 20:43 MARCY MAJOR Apr 10, 2017 09:37
--- NOTE | 2017-04-10 10:00 | General Progress Note ---
Assessment/Plan Problem List: (1) new onset of generalised seizure activity (2) Acute GI hemorrhage ICD Codes: K92.2 - Gastrointestinal hemorrhage, unspecified SNOMED: 48010059 (3) Tongue malignant neoplasm ICD Codes: C02.9 - Malignant neoplasm of tongue, unspecified SNOMED: 811142171 (4) Lung nodule seen on imaging study ICD Codes: R91.1 - Solitary pulmonary nodule SNOMED: 262909430 Status: stable, progressing Assessment/Plan serial cbc ppi transfuse monitor for further bleeding vent resp rx suctioning Subjective ROS Limited/Unobtainable: No Constitutional: Reports: malaise, weakness HEENT: Reports: no symptoms Cardiovascular: Reports: no symptoms Respiratory: Reports: sputum Gastrointestinal/Abdominal: Reports: blood in stool Genitourinary: Reports: no symptoms Neurologic/Psychiatric: Reports: pre-existing deficit Endocrine: Reports: no symptoms Hematologic/Lymphatic: Reports: anemia Allergies: Coded Allergies: PENICILLINS (Verified Allergy, Unknown, 07/31/16) All Systems: reviewed and negative except above Subjective gi noted. unable to do endoscopy. still with melena. decrease h/h noted. prbc ordered. on ppi Objective Last 24 Hour Vital Signs Date Time Temp Pulse Resp B/P (MAP) Pulse Ox O2 Delivery O2 Flow Rate FiO2 04/10/17 08:43 78 22 35 04/10/17 08:28 85 04/10/17 08:00 97.9 88 25 102/50 100 Mechanical Ventilator 35 04/10/17 08:00 81 04/10/17 08:00 35 04/10/17 07:09 86 24 35 04/10/17 05:18 87 21 35 04/10/17 04:10 82 04/10/17 04:00 98.2 103 22 137/70 100 Nasal Cannula 4.0 04/10/17 04:00 35 04/10/17 03:09 81 22 35 04/10/17 02:26 98.0 84 22 99/51 100 Nasal Cannula 4.0 04/10/17 00:54 87 21 35 04/10/17 00:00 98.0 84 22 119/53 100 Mechanical Ventilator 35 04/10/17 00:00 35 04/10/17 00:00 84 04/09/17 23:21 83 22 35 04/09/17 21:07 75 21 35 04/09/17 20:00 98.6 86 27 131/73 100 Mechanical Ventilator 35 04/09/17 20:00 35 04/09/17 20:00 84 04/09/17 19:57 87 24 35 04/09/17 17:03 79 19 35 04/09/17 16:03 78 04/09/17 16:03 35 04/09/17 16:01 97.0 77 18 124/57 93 Room Air 04/09/17 15:20 78 23 35 04/09/17 13:34 81 23 35 04/09/17 13:05 88 20 35 04/09/17 12:00 35 04/09/17 12:00 97.9 85 23 127/59 100 Mechanical Ventilator 35 04/09/17 12:00 83 04/09/17 10:50 87 20 35 Laboratory Tests 04/10/17 04:00: White Blood Count 12.8H, Red Blood Count 2.60L, Hemoglobin 7.7L, Hematocrit 23.4L, Mean Corpuscular Volume 90, Mean Corpuscular Hemoglobin 29.5, Mean Corpuscular Hemoglobin Concent 32.7, Red Cell Distribution Width 13.1, Platelet Count 184, Mean Platelet Volume 6.7, Neutrophils (%) (Auto) , Lymphocytes (%) ( Auto) , Monocytes (%) (Auto) , Eosinophils (%) (Auto) , Basophils (%) (Auto) Height (Feet): 5 Weight (Pounds): 99 Objective GENERAL: The patient is a well-developed thin female, in no apparent distress, on the vent. She is arousable. NECK: Supple. Trachea is midline. There is no discharge. HEART: Regular rate and rhythm. LUNGS: Clear. ABDOMEN: Soft, nontender, and nondistended. EXTREMITIES: Without clubbing, cyanosis, or edema. CHRISTINA HAMMOND Apr 10, 2017 10:00
[2017-04-10 12:00] VITALS: BP 115/57
--- NOTE | 2017-04-10 12:06 | General Progress Note ---
Assessment/Plan Assessment/Plan Assessment - malnutrition - H&N CA - s/p XRT - GIB - failed EGD due to "frozen" throat / neck from XRT - anemia Recommendations - continue TF - emperic PPI - monitor H&H - d/c planning in 1-2 days if H&H stable Subjective Allergies: Coded Allergies: PENICILLINS (Verified Allergy, Unknown, 07/31/16) Subjective Above noted back on TF stools now dark green, per RN getting transfused Objective Last 24 Hour Vital Signs Date Time Temp Pulse Resp B/P (MAP) Pulse Ox O2 Delivery O2 Flow Rate FiO2 04/10/17 11:15 76 24 35 04/10/17 08:43 78 22 35 04/10/17 08:28 85 04/10/17 08:00 97.9 88 25 102/50 100 Mechanical Ventilator 35 04/10/17 08:00 81 04/10/17 08:00 35 04/10/17 07:09 86 24 35 04/10/17 05:18 87 21 35 04/10/17 04:10 82 04/10/17 04:00 98.2 103 22 137/70 100 Nasal Cannula 4.0 04/10/17 04:00 35 04/10/17 03:09 81 22 35 04/10/17 02:26 98.0 84 22 99/51 100 Nasal Cannula 4.0 04/10/17 00:54 87 21 35 04/10/17 00:00 98.0 84 22 119/53 100 Mechanical Ventilator 35 04/10/17 00:00 35 04/10/17 00:00 84 04/09/17 23:21 83 22 35 04/09/17 21:07 75 21 35 04/09/17 20:00 98.6 86 27 131/73 100 Mechanical Ventilator 35 04/09/17 20:00 35 04/09/17 20:00 84 04/09/17 19:57 87 24 35 04/09/17 17:03 79 19 35 04/09/17 16:03 78 04/09/17 16:03 35 04/09/17 16:01 97.0 77 18 124/57 93 Room Air 04/09/17 15:20 78 23 35 04/09/17 13:34 81 23 35 04/09/17 13:05 88 20 35 Laboratory Tests 11/7/17 04:00: White Blood Count 12.8H, Red Blood Count 2.60L, Hemoglobin 7.7L, Hematocrit 23.4L, Mean Corpuscular Volume 90, Mean Corpuscular Hemoglobin 29.5, Mean Corpuscular Hemoglobin Concent 32.7, Red Cell Distribution Width 13.1, Platelet Count 184, Mean Platelet Volume 6.7, Neutrophils (%) (Auto) , Lymphocytes (%) ( Auto) , Monocytes (%) (Auto) , Eosinophils (%) (Auto) , Basophils (%) (Auto) Height (Feet): 5 Weight (Pounds): 99 Objective Debilitated elderly Woman NCAT Neck stiff from XRT, (+) trach coarse BS RR abd soft, ND, (+) GT no edema OBS BIN MYERS Apr 10, 2017 12:06
[2017-04-10 16:00] VITALS: BP 131/71
[2017-04-10 17:14] LABS: BASOPHILS % (AUTO) 0.6 % (0.0-2.0); EOSINOPHILS % (AUTO) 1.9 % (0.0-3.0); LYMPHOCYTES % (AUTO) 9.6 % (20.0-45.0); MEAN CORPUSCULAR HEMOGLOBIN 29.5 PG (27.0-31.0); MEAN CORPUSCULAR HGB CONC 32.5 G/DL (32.0-36.0); MEAN CORPUSCULAR VOLUME 91 FL (80-99); MEAN PLATELET VOLUME 6.1 FL (6.5-10.1); MONOCYTES % (AUTO) 9.7 % (1.0-10.0); NEUTROPHILS % (AUTO) 78.2 % (45.0-75.0); PLATELET COUNT 162 K/UL (150-450); RED CELL DISTRIBUTION WIDTH 13.3 % (11.6-14.8); WHITE BLOOD COUNT 12.4 K/UL (4.8-10.8)
[2017-04-10] MEDS ORDERED: Dyna-Hex 2% Top Sol 2oz TOPIC SCH (20:00)
[2017-04-10] MEDS: Cefepime HCl 2 GM in NS 110 ML IV SCH (22:11)
[2017-04-11] VITALS: BP 130/68
[2017-04-11 04:00] VITALS: BP 117/56
--- NOTE | 2017-04-11 04:45 | Progress Note ---
DATE: 04/09/2017 CARDIOLOGY PROGRESS NOTE Late entry for 04/09/2017. SUBJECTIVE: The patient is scheduled for endoscopy tomorrow. The procedure is to assess her source of bleeding. She continues to have melena. She has required transfusions. The patient remains on ventilator support. Monitored rhythm sinus with atrial ectopy. No recurring SVT. OBJECTIVE: VITAL SIGNS: Blood pressure 124/57, pulse 77, respirations 18, oxygen saturation is adequate, and afebrile. LUNGS: Bilateral breath sounds. No wheezing. CARDIOVASCULAR: Regular rhythm and rate. Normal S1 and S2. ABDOMEN: Soft. No tenderness. EXTREMITIES: With trace dependent edema and muscle atrophy. LABORATORY DATA: No laboratories today. IMPRESSION: 1. Gastrointestinal bleeding. 2. Anemia. 3. Ventilator-dependent respiratory failure. 4. Metastatic head and neck cancer. 5. Paroxysmal atrial fibrillation. 6. Paroxysmal supraventricular tachycardia. 7. Hypothyroidism, on replacement therapy. PLAN: 1. Transfuse for hemoglobin less than 8 g. 2. Await esophagogastroduodenoscopy. 3. Followup thyroid function and adjust replacement dosing accordingly. 4. Continue digoxin for rate control prophylaxis. 5. Ventilator support. Chi Bhatti M.D. DR: DAVID JOB#: [id number] CC: MCKENZIE
[2017-04-11 05:27] LABS: BASOPHILS % (AUTO) 0.7 % (0.0-2.0); EOSINOPHILS % (AUTO) 2.6 % (0.0-3.0); LYMPHOCYTES % (AUTO) 11.5 % (20.0-45.0); MEAN CORPUSCULAR HEMOGLOBIN 31.1 PG (27.0-31.0); MEAN CORPUSCULAR HGB CONC 33.6 G/DL (32.0-36.0); MEAN CORPUSCULAR VOLUME 92 FL (80-99); MEAN PLATELET VOLUME 6.7 FL (6.5-10.1); MONOCYTES % (AUTO) 9.6 % (1.0-10.0); NEUTROPHILS % (AUTO) 75.5 % (45.0-75.0); PLATELET COUNT 169 K/UL (150-450); RED BLOOD COUNT 3.57 M/UL (4.20-5.40); RED CELL DISTRIBUTION WIDTH 14.2 % (11.6-14.8); WHITE BLOOD COUNT 12.6 K/UL (4.8-10.8)
[2017-04-11 06:02] LABS: ALANINE AMINOTRANSFERASE 13 U/L (12-78); ALBUMIN/GLOBULIN RATIO 0.6 (1.0-2.7); ANION GAP 8 mmol/L (5-15); ASPARTATE AMINO TRANSFERASE 20 U/L (15-37); CALCIUM 8.4 MG/DL (8.5-10.1); CARBON DIOXIDE 25 MMOL/L (21-32); CHLORIDE 108 MMOL/L (98-107); CREATININE 0.5 MG/DL (0.55-1.30); POTASSIUM 3.8 MMOL/L (3.5-5.1); SODIUM 141 MMOL/L (136-145); TOTAL PROTEIN 6.1 G/DL (6.4-8.2)
[2017-04-11 08:00] VITALS: BP 130/65
--- NOTE | 2017-04-11 08:45 | General Progress Note ---
Assessment/Plan Problem List: (1) new onset of generalised seizure activity (2) Acute GI hemorrhage ICD Codes: K92.2 - Gastrointestinal hemorrhage, unspecified SNOMED: 43997711 (3) Tongue malignant neoplasm ICD Codes: C02.9 - Malignant neoplasm of tongue, unspecified SNOMED: 620163399 (4) Lung nodule seen on imaging study ICD Codes: R91.1 - Solitary pulmonary nodule SNOMED: 830932469 Status: stable, progressing Assessment/Plan serial cbc ppi transfuse monitor for further bleeding vent resp rx suctioning abx added for pna Subjective ROS Limited/Unobtainable: Yes Constitutional: Reports: malaise, weakness HEENT: Reports: no symptoms Cardiovascular: Reports: no symptoms Respiratory: Reports: no symptoms Gastrointestinal/Abdominal: Reports: tarry stools, difficulty swallowing, rectal bleeding Genitourinary: Reports: no symptoms Neurologic/Psychiatric: Reports: pre-existing deficit Endocrine: Reports: no symptoms Hematologic/Lymphatic: Reports: anemia Allergies: Coded Allergies: PENICILLINS (Verified Allergy, Unknown, 07/31/16) All Systems: reviewed and negative except above Subjective no bleeding noted. h/h stable. sputum cultures noted. no fever or chills. Objective Last 24 Hour Vital Signs Date Time Temp Pulse Resp B/P (MAP) Pulse Ox O2 Delivery O2 Flow Rate FiO2 04/11/17 08:30 77 21 35 04/11/17 06:41 83 21 35 04/11/17 05:18 82 19 35 04/11/17 04:00 98.1 80 27 117/56 100 Mechanical Ventilator 35 04/11/17 04:00 85 04/11/17 04:00 35 04/11/17 03:30 88 28 35 04/11/17 00:00 97.9 89 27 130/68 100 Mechanical Ventilator 35 04/11/17 00:00 86 04/10/17 23:30 82 24 35 04/10/17 21:04 87 22 35 04/10/17 20:00 35 04/10/17 19:47 81 04/10/17 19:30 88 23 35 04/10/17 16:56 79 25 35 04/10/17 16:00 81 04/10/17 16:00 97.9 79 27 131/71 100 Mechanical Ventilator 35 04/10/17 16:00 35 04/10/17 15:12 86 24 35 04/10/17 13:01 81 24 35 04/10/17 12:02 80 04/10/17 12:00 35 04/10/17 12:00 97.9 83 22 115/57 100 Mechanical Ventilator 35 04/10/17 11:15 76 24 35 Laboratory Tests 04/10/17 16:50: White Blood Count 12.4H, Red Blood Count 3.50L, Hemoglobin 10.3#L, Hematocrit 31.9#L, Mean Corpuscular Volume 91, Mean Corpuscular Hemoglobin 29.5, Mean Corpuscular Hemoglobin Concent 32.5, Red Cell Distribution Width 13.3, Platelet Count 162, Mean Platelet Volume 6.1L, Neutrophils (%) (Auto) 78.2H, Lymphocytes (%) (Auto) 9.6L, Monocytes (%) (Auto) 9.7, Eosinophils (%) (Auto) 1.9, Basophils (%) (Auto) 0.6 04/10/17 19:00: Vancomycin Level Trough 5.4 04/11/17 03:30: White Blood Count 12.6H, Red Blood Count 3.57L, Hemoglobin 11.1L, Hematocrit 33.0L, Mean Corpuscular Volume 92, Mean Corpuscular Hemoglobin 31.1H, Mean Corpuscular Hemoglobin Concent 33.6, Red Cell Distribution Width 14.2, Platelet Count 169, Mean Platelet Volume 6.7, Neutrophils (%) (Auto) 75.5H, Lymphocytes ( %) (Auto) 11.5L, Monocytes (%) (Auto) 9.6, Eosinophils (%) (Auto) 2.6, Basophils (%) (Auto) 0.7, Sodium Level 141, Potassium Level 3.8, Chloride Level 108H, Carbon Dioxide Level 25, Anion Gap 8, Blood Urea Nitrogen 10, Creatinine 0.5L, Estimat Glomerular Filtration Rate , Glucose Level 124H, Calcium Level 8.4L, Total Bilirubin 0.2, Aspartate Amino Transf (AST/SGOT) 20, Alanine Aminotransferase (ALT/SGPT) 13, Alkaline Phosphatase 88, Total Protein 6.1L, Albumin 2.2L, Globulin 3.9, Albumin/Globulin Ratio 0.6L, Free Thyroxine 1.35 Height (Feet): 5 Weight (Pounds): 99 Objective GENERAL: The patient is a well-developed thin female, in no apparent distress, on the vent. She is arousable. NECK: Supple. Trachea is midline. There is no discharge. HEART: Regular rate and rhythm. LUNGS: Clear. ABDOMEN: Soft, nontender, and nondistended. EXTREMITIES: Without clubbing, cyanosis, or edema. CHRISTINA HAMMOND Apr 11, 2017 08:45
--- NOTE | 2017-04-11 09:47 | Pulmonology Progress Note ---
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 GT, trach, anemia, possible GIB PLAN GI follow up monitor HH care noted as is respiratory care as is soft tip catheter for home use- son aware Ventilatory support as is home meds noted supportive care as outlined and monitor for change suction with caution and monitor for bleeding no wean planned at present oxygen therapy noted trach change monthly prognosis guarded dc planning once stable and cleared by gi medication list reviewed impression, plan, and exam edited and reviewed in detail care discussed with RN Subjective ROS Limited/Unobtainable: Yes Allergies: Coded Allergies: PENICILLINS (Verified Allergy, Unknown, 07/31/16) Subjective on the vent care noted and discussed recommendations noted Objective Last 24 Hour Vital Signs Date Time Temp Pulse Resp B/P (MAP) Pulse Ox O2 Delivery O2 Flow Rate FiO2 04/11/17 08:30 77 21 35 04/11/17 08:00 97.2 85 24 130/65 100 Mechanical Ventilator 35 04/11/17 06:41 83 21 35 04/11/17 05:18 82 19 35 04/11/17 04:00 98.1 80 27 117/56 100 Mechanical Ventilator 35 04/11/17 04:00 85 04/11/17 04:00 35 04/11/17 03:30 88 28 35 04/11/17 00:00 97.9 89 27 130/68 100 Mechanical Ventilator 35 04/11/17 00:00 86 04/10/17 23:30 82 24 35 04/10/17 21:04 87 22 35 04/10/17 20:00 35 04/10/17 19:47 81 04/10/17 19:30 88 23 35 04/10/17 16:56 79 25 35 04/10/17 16:00 81 04/10/17 16:00 97.9 79 27 131/71 100 Mechanical Ventilator 35 04/10/17 16:00 35 04/10/17 15:12 86 24 35 04/10/17 13:01 81 24 35 04/10/17 12:02 80 04/10/17 12:00 35 04/10/17 12:00 97.9 83 22 115/57 100 Mechanical Ventilator 35 04/10/17 11:15 76 24 35 Objective WDWN NAD trach reduced breath sounds bilaterally without rhonchi or wheeze [id number] without MRG NABS nontender no HSM; GT no CC mild edema weak with reduced ROM nonfocal Laboratory Tests 04/10/17 16:50: White Blood Count 12.4H, Red Blood Count 3.50L, Hemoglobin 10.3#L, Hematocrit 31.9#L, Mean Corpuscular Volume 91, Mean Corpuscular Hemoglobin 29.5, Mean Corpuscular Hemoglobin Concent 32.5, Red Cell Distribution Width 13.3, Platelet Count 162, Mean Platelet Volume 6.1L, Neutrophils (%) (Auto) 78.2H, Lymphocytes (%) (Auto) 9.6L, Monocytes (%) (Auto) 9.7, Eosinophils (%) (Auto) 1.9, Basophils (%) (Auto) 0.6 04/10/17 19:00: Vancomycin Level Trough 5.4 04/11/17 03:30: White Blood Count 12.6H, Red Blood Count 3.57L, Hemoglobin 11.1L, Hematocrit 33.0L, Mean Corpuscular Volume 92, Mean Corpuscular Hemoglobin 31.1H, Mean Corpuscular Hemoglobin Concent 33.6, Red Cell Distribution Width 14.2, Platelet Count 169, Mean Platelet Volume 6.7, Neutrophils (%) (Auto) 75.5H, Lymphocytes ( %) (Auto) 11.5L, Monocytes (%) (Auto) 9.6, Eosinophils (%) (Auto) 2.6, Basophils (%) (Auto) 0.7, Sodium Level 141, Potassium Level 3.8, Chloride Level 108H, Carbon Dioxide Level 25, Anion Gap 8, Blood Urea Nitrogen 10, Creatinine 0.5L, Estimat Glomerular Filtration Rate , Glucose Level 124H, Calcium Level 8.4L, Total Bilirubin 0.2, Aspartate Amino Transf (AST/SGOT) 20, Alanine Aminotransferase (ALT/SGPT) 13, Alkaline Phosphatase 88, Total Protein 6.1L, Albumin 2.2L, Globulin 3.9, Albumin/Globulin Ratio 0.6L, Free Thyroxine 1.35 Current Medications Medications (Trade) Dose Ordered Sig/Josiah Route PRN Reason Start Time Stop Time Status Last Admin Dose Admin Amikacin Sulfate (Amikin) 500 mg Q12HR@10,22 INH 04/11/17 10:00 04/18/17 09:59 Amitriptyline HCl (Elavil) 10 mg BEDTIME GT 04/08/17 21:00 05/08/17 20:59 04/10/17 22:10 Cefepime HCl 2 gm/ Sodium Chloride 110 ml @ 220 mls/hr QHS IV 04/10/17 21:00 04/17/17 20:59 04/10/17 22:11 Digoxin (Lanoxin) 0.125 mg DAILY GT 04/08/17 09:00 05/08/17 08:59 04/10/17 08:28 Levetiracetam (Keppra) 500 mg BID GT 04/08/17 09:00 05/08/17 08:59 04/10/17 17:30 Levothyroxine Sodium (Synthroid) 150 mcg ACBREAKFAST GT 04/08/17 06:30 05/08/17 06:29 04/11/17 06:46 Midodrine (Pro-Amatine) 10 mg THREE TIMES A DAY GT 04/08/17 09:00 05/08/17 08:59 04/10/17 17:30 Multivitamins (Multivitamins W/ Minerals 15ml Liquid) 15 ml DAILY GT 04/08/17 09:00 05/08/17 08:59 04/10/17 08:27 Pantoprazole (Protonix) 40 mg Q12HR IVP 04/08/17 21:00 05/08/17 20:59 04/10/17 22:11 Sodium Chloride 1,000 ml @ 100 mls/hr Q10H IV 04/08/17 02:00 05/08/17 01:59 04/11/17 00:00 Vancomycin HCl (Vanco rx to dose) 1 ea DAILY PRN MISC Per rx protocol 04/08/17 01:15 05/08/17 01:14 Vancomycin HCl 1 gm/Dextrose 250 ml @ 166.667 mls/hr ONCE IVPB 04/10/17 21:00 04/11/17 23:59 04/10/17 22:12 Vancomycin/Sodium Chloride 250 ml @ 166.667 mls/hr Q24H IVPB 04/11/17 17:00 04/16/17 16:59 MARCY MAJOR Apr 11, 2017 09:47
[2017-04-11] MEDS ORDERED: Amikacin for Inhalation 2ML INH SCH (10:00)
[2017-04-11] MEDS: Pantoprazole Inj IVP SCH ×2 (10:02→21:12)
[2017-04-11] MEDS: Midodrine 10mg tab GT SCH ×3 (10:03→16:59)
[2017-04-11] MEDS: levETIRAcetam 500mg/5ml Liquid GT SCH ×2 (10:03→16:55)
[2017-04-11] MEDS: Digoxin Elixir 0.125mg GT SCH (10:03)
[2017-04-11] MEDS: Multivitamins W/Minerals 15 ML UDC GT SCH (10:03)
[2017-04-11 12:00] VITALS: BP 114/61
--- NOTE | 2017-04-11 12:32 | Progress Note ---
DATE: 04/10/2017 CARDIOLOGY PROGRESS NOTE SUBJECTIVE: The patient had a failed endoscopy attempt yesterday due to frozen throat related to radiation therapy. She continues to have episodes of melena. Hemoglobin keeps dropping. Transfusion of packed red blood cells today required. OBJECTIVE: VITAL SIGNS: Blood pressure 102/50, pulse 88, respirations 25, and afebrile. LUNGS: The patient is on ventilator support. Bilateral breath sounds. HEART: Regular rhythm and rate. Normal S1, S2. Monitor sinus. ABDOMEN: Soft. EXTREMITIES: No edema. LABORATORY DATA: White count 12.8, hemoglobin 7.7, and platelets 184,000. IMPRESSION: 1. Gastrointestinal bleeding. 2. Anemia. 3. Severe protein-calorie malnutrition. 4. Ventilator-dependent respiratory failure. 5. Paroxysmal supraventricular tachycardia. 6. Paroxysmal atrial fibrillation. 7. Metastatic head and neck cancer. PLAN: 1. Transfuse if hemoglobin above 8 g. Off all anti-platelets and anticoagulants. 2. Empiric proton pump inhibitor. 3. Tube feedings as tolerated. 4. Ventilator support. 5. Continue digoxin therapy, long-term for rate control prophylaxis of arrhythmias. 6. Reassess thyroid function and replacement therapy. Chi Bhatti M.D. DR: KIM JOB#: [id number] CC: MCKENZIE
[2017-04-11 16:00] VITALS: BP 121/62
[2017-04-11] MEDS ORDERED: Vancomycin 750mg/NS 250ml 250 ML IVPB SCH (17:00)
[2017-04-11 19:36] LABS: MEAN CORPUSCULAR HEMOGLOBIN 29.4 PG (27.0-31.0); MEAN CORPUSCULAR HGB CONC 31.8 G/DL (32.0-36.0); MEAN CORPUSCULAR VOLUME 92 FL (80-99); MEAN PLATELET VOLUME 6.1 FL (6.5-10.1); PLATELET COUNT 191 K/UL (150-450); RED BLOOD COUNT 3.28 M/UL (4.20-5.40); RED CELL DISTRIBUTION WIDTH 13.8 % (11.6-14.8); WHITE BLOOD COUNT 18.1 K/UL (4.8-10.8)
[2017-04-11 19:37] LABS: BASOPHILS % (AUTO) 0.7 % (0.0-2.0); EOSINOPHILS % (AUTO) 1.8 % (0.0-3.0); LYMPHOCYTES % (AUTO) 15.5 % (20.0-45.0); MONOCYTES % (AUTO) 8.1 % (1.0-10.0); NEUTROPHILS % (AUTO) 73.9 % (45.0-75.0)
[2017-04-11 20:00] VITALS: BP 109/67
[2017-04-11] MEDS: Cefepime HCl 2 GM in NS 110 ML IV SCH (21:12)
--- NOTE | 2017-04-11 21:22 | General Progress Note ---
Assessment/Plan Assessment/Plan Assessment - malnutrition - H&N CA - s/p XRT - GIB - failed EGD due to "frozen" throat / neck from XRT - anemia - likely massive UGIB Recommendations - Hold TF - BID PPI - add q6 carafate - serial CBC - transfuse PRN - ? surgical consult - ? transfer to [facility] for IR embolization (not available at 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) Subjective Allergies: Coded Allergies: PENICILLINS (Verified Allergy, Unknown, 07/31/16) Subjective Above noted called by RN re Maroon stools GT aspirated --> BRB and clot Objective Last 24 Hour Vital Signs Date Time Temp Pulse Resp B/P (MAP) Pulse Ox O2 Delivery O2 Flow Rate FiO2 04/11/17 19:20 113 30 35 04/11/17 16:38 86 23 35 04/11/17 16:00 81 04/11/17 16:00 97.9 81 21 121/62 99 Mechanical Ventilator 35 04/11/17 16:00 35 04/11/17 14:30 87 24 35 04/11/17 12:32 79 23 35 04/11/17 12:00 35 04/11/17 12:00 97.3 82 24 114/61 100 Mechanical Ventilator 35 04/11/17 11:42 78 04/11/17 10:36 88 18 35 04/11/17 10:35 89 22 99 Mechanical Ventilator 35 04/11/17 10:33 88 22 98 Mechanical Ventilator 35 04/11/17 10:25 80 22 Mechanical Ventilator 35 04/11/17 10:03 80 04/11/17 08:30 77 21 35 04/11/17 08:00 97.2 85 24 130/65 100 Mechanical Ventilator 35 04/11/17 08:00 35 04/11/17 07:28 80 04/11/17 06:41 83 21 35 04/11/17 05:18 82 19 35 04/11/17 04:00 98.1 80 27 117/56 100 Mechanical Ventilator 35 04/11/17 04:00 85 04/11/17 04:00 35 04/11/17 03:30 88 28 35 04/11/17 00:00 97.9 89 27 130/68 100 Mechanical Ventilator 35 04/11/17 00:00 86 04/10/17 23:30 82 24 35 Intake and Output 04/11/17 04/12/17 19:00 07:00 Intake Total 1791.667 ml Output Total 450 ml Balance 1341.667 ml Intake Free Water 100 ml IV Total 1161.667 ml Tube Feeding 480 ml Other 50 ml Output Urine Total 450 ml # Bowel Movements 4 Laboratory Tests 04/11/17 03:30: White Blood Count 12.6H, Red Blood Count 3.57L, Hemoglobin 11.1L, Hematocrit 33.0L, Mean Corpuscular Volume 92, Mean Corpuscular Hemoglobin 31.1H, Mean Corpuscular Hemoglobin Concent 33.6, Red Cell Distribution Width 14.2, Platelet Count 169, Mean Platelet Volume 6.7, Neutrophils (%) (Auto) 75.5H, Lymphocytes ( %) (Auto) 11.5L, Monocytes (%) (Auto) 9.6, Eosinophils (%) (Auto) 2.6, Basophils (%) (Auto) 0.7, Sodium Level 141, Potassium Level 3.8, Chloride Level 108H, Carbon Dioxide Level 25, Anion Gap 8, Blood Urea Nitrogen 10, Creatinine 0.5L, Estimat Glomerular Filtration Rate , Glucose Level 124H, Calcium Level 8.4L, Total Bilirubin 0.2, Aspartate Amino Transf (AST/SGOT) 20, Alanine Aminotransferase (ALT/SGPT) 13, Alkaline Phosphatase 88, Total Protein 6.1L, Albumin 2.2L, Globulin 3.9, Albumin/Globulin Ratio 0.6L, Free Thyroxine 1.35, Triiodothyronine (T3) Uptake [Pending] 04/11/17 19:22: White Blood Count 18.1H, Red Blood Count 3.28L, Hemoglobin 9.6L, Hematocrit 30.3L, Mean Corpuscular Volume 92, Mean Corpuscular Hemoglobin 29.4, Mean Corpuscular Hemoglobin Concent 31.8L, Red Cell Distribution Width 13.8, Platelet Count 191, Mean Platelet Volume 6.1L, Neutrophils (%) (Auto) 73.9, Lymphocytes (%) (Auto) 15.5L, Monocytes (%) (Auto) 8.1, Eosinophils (%) (Auto) 1.8, Basophils (%) (Auto) 0.7 Height (Feet): 5 Weight (Pounds): 99 Objective Debilitated elderly Woman NCAT Neck stiff from XRT, (+) trach coarse BS RR abd soft, ND, (+) GT no edema OBS BIN MYERS Apr 11, 2017 21:22
[2017-04-11] MEDS ORDERED: NS 275ml ONE (21:25)
[2017-04-11] MEDS: Amikacin for Inhalation 2ML INH SCH (23:26)
[2017-04-12] VITALS (21 sets, daily range): BP systolic 87–126; BP diastolic 34–56
[2017-04-12] MEDS ORDERED: Sucralfate 1gm tab GT SCH
--- NOTE | 2017-04-12 02:00 | Progress Note ---
DATE: 04/11/2017 CARDIOLOGY PROGRESS NOTE SUBJECTIVE: The patient's condition has deteriorated. She is having continuous active bleeding from oropharyngeal region. She has been transfused one unit of packed cells. Her hemoglobin this morning was about 9, active bleeding continues. I am transferring the patient to the intensive care unit at this time for closer monitoring and she may require additional transfusions of blood. The patient is on-call to transfer to [facility] for Interventional Radiology for possible embolization procedure. OBJECTIVE: VITAL SIGNS: Blood pressure is 121/62, pulse 81, respiratory rate 21, and afebrile. Monitored rhythm is sinus with atrial ectopy. HEENT: Bleeding is noted from the oropharyngeal region. LUNGS: With coarse breath sounds. CARDIAC: Regular rhythm and rate. Normal S1 and S2 with a fourth heart sound. ABDOMEN: Soft. G-tube intact. EXTREMITIES: Trace edema. LABORATORY DATA: White count 18 and hemoglobin 9.6. Potassium 3.8, BUN 10, and creatinine 0.5. Free T4 was 1.35, which is normal. Albumin 2.2. IMPRESSION: 1. Head and neck cancer. 2. Active bleeding. 3. Tracheostomy. 4. Anemia. 5. Paroxysmal sinus tachycardia. 6. Paroxysmal atrial fibrillation. 7. Ventilator-dependent respiratory failure. 8. Hypothyroidism, on replacement therapy. PLAN: 1. Serial hemoglobin. 2. ICU monitoring. 3. Transfuse for less than 8.5 g. 4. Transfer when bed available for Interventional Radiology procedure. 5. Continue digoxin and thyroid replacement therapy. Chi Bhatti M.D. DR: MYRNA JOB#: [id number] CC: MCKENZIE
[2017-04-12] MEDS: Sucralfate 1gm tab GT SCH ×4 (06:00→17:31)
[2017-04-12] MEDS ORDERED: Heparin 2000 units/Ns 1000ml INJ ONE (08:30)
[2017-04-12] MEDS ORDERED: Lidocaine 1% Plain 30 ml INJ ONE (08:30)
[2017-04-12] MEDS: Digoxin Elixir 0.125mg GT SCH (09:21)
[2017-04-12] MEDS: Midodrine 10mg tab GT SCH ×3 (09:21→17:31)
[2017-04-12] MEDS: levETIRAcetam 500mg/5ml Liquid GT SCH ×2 (09:22→20:17)
[2017-04-12] MEDS: Multivitamins W/Minerals 15 ML UDC GT SCH (09:22)
[2017-04-12] MEDS: Pantoprazole Inj IVP SCH ×2 (09:22→20:18)
--- NOTE | 2017-04-12 09:35 | Pulmonology Progress Note ---
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 GT, trach, anemia, possible GIB; s/p transfusion hypoxemia, failure to thrive PLAN GI follow up monitor HH s/p transfusion care noted as is respiratory care as is soft tip catheter for home use- son aware Ventilatory support as is may need higher level of care for embolization procedure supportive care as outlined and monitor for change suction with caution and monitor for bleeding no wean planned at present oxygen therapy noted trach change monthly prognosis poor avoid excessive suctioning medications/laboratory data/nursing notes/ICU care reviewed in detail note reviewed and edited care discussed with RN and RT ICU time spent 35 minutes Subjective ROS Limited/Unobtainable: Yes Allergies: Coded Allergies: PENICILLINS (Verified Allergy, Unknown, 07/31/16) Subjective on the vent care noted and discussed active bleeding overnight transferred to ICU now improved Objective Last 24 Hour Vital Signs Date Time Temp Pulse Resp B/P (MAP) Pulse Ox O2 Delivery O2 Flow Rate FiO2 04/12/17 09:21 89 04/12/17 08:50 95 20 35 04/12/17 07:03 93 19 35 04/12/17 07:00 94 21 103/48 100 Mechanical Ventilator 35 04/12/17 06:00 90 21 110/49 100 Mechanical Ventilator 35 04/12/17 05:00 99 22 102/49 100 Mechanical Ventilator 35 04/12/17 04:50 105 26 35 04/12/17 04:00 35 04/12/17 04:00 99.0 103 22 87/41 100 Mechanical Ventilator 35 04/12/17 04:00 101 04/12/17 03:13 102 20 35 04/12/17 03:00 105 24 90/47 100 Mechanical Ventilator 35 04/12/17 02:00 106 23 88/45 100 Mechanical Ventilator 35 04/12/17 01:22 105 25 35 04/12/17 01:00 106 25 110/50 100 Mechanical Ventilator 35 04/12/17 00:00 100 04/12/17 00:00 99.2 106 25 126/56 100 Mechanical Ventilator 35 04/12/17 00:00 35 04/11/17 23:36 35 04/11/17 23:36 103 24 99 Mechanical Ventilator 35 04/11/17 23:33 35 04/11/17 23:33 89 22 99 Mechanical Ventilator 35 04/11/17 23:26 101 16 99 Mechanical Ventilator 35 04/11/17 23:01 97 22 35 04/11/17 21:37 113 30 35 04/11/17 20:00 79 04/11/17 20:00 99.7 100 21 109/67 98 Mechanical Ventilator 35 04/11/17 20:00 35 04/11/17 19:20 113 30 35 04/11/17 16:38 86 23 35 04/11/17 16:00 81 04/11/17 16:00 97.9 81 21 121/62 99 Mechanical Ventilator 35 04/11/17 16:00 35 04/11/17 14:30 87 24 35 04/11/17 12:32 79 23 35 04/11/17 12:00 35 04/11/17 12:00 97.3 82 24 114/61 100 Mechanical Ventilator 35 04/11/17 11:42 78 04/11/17 10:36 88 18 35 04/11/17 10:35 89 22 99 Mechanical Ventilator 35 04/11/17 10:33 88 22 98 Mechanical Ventilator 35 04/11/17 10:25 80 22 Mechanical Ventilator 35 04/11/17 10:03 80 Objective WDWN NAD trach reduced breath sounds bilaterally with some rhonchi [id number] without MRG NABS nontender no HSM; GT no CC mild edema weak with reduced ROM nonfocal Laboratory Tests 04/11/17 19:22: White Blood Count 18.1H, Red Blood Count 3.28L, Hemoglobin 9.6L, Hematocrit 30.3L, Mean Corpuscular Volume 92, Mean Corpuscular Hemoglobin 29.4, Mean Corpuscular Hemoglobin Concent 31.8L, Red Cell Distribution Width 13.8, Platelet Count 191, Mean Platelet Volume 6.1L, Neutrophils (%) (Auto) 73.9, Lymphocytes (%) (Auto) 15.5L, Monocytes (%) (Auto) 8.1, Eosinophils (%) (Auto) 1.8, Basophils (%) (Auto) 0.7 Current Medications Medications (Trade) Dose Ordered Sig/Josiah Route PRN Reason Start Time Stop Time Status Last Admin Dose Admin Amikacin Sulfate (Amikin) 500 mg Q12HR@10,22 INH 04/11/17 22:00 04/18/17 21:59 04/11/17 23:26 Amitriptyline HCl (Elavil) 10 mg BEDTIME GT 04/12/17 21:00 05/08/17 20:59 Cefepime HCl 2 gm/ Sodium Chloride 110 ml @ 220 mls/hr QHS IV 04/12/17 21:00 04/17/17 20:59 Chlorhexidine Gluconate (Cathy-Hex 2%) 1 applic DAILY@1999 TOPIC 04/12/17 20:00 05/12/17 19:59 Digoxin (Lanoxin) 0.125 mg DAILY GT 04/12/17 09:00 05/08/17 08:59 04/12/17 09:21 Levetiracetam (Keppra) 500 mg BID@0900,2100 GT 04/12/17 09:00 05/12/17 08:59 04/12/17 09:22 Levothyroxine Sodium (Synthroid) 150 mcg ACBREAKFAST GT 04/12/17 06:30 05/08/17 06:29 Midodrine (Pro-Amatine) 10 mg THREE TIMES A DAY GT 04/12/17 09:00 05/08/17 08:59 04/12/17 09:21 Multivitamins (Multivitamins W/ Minerals 15ml Liquid) 15 ml DAILY GT 04/12/17 09:00 05/08/17 08:59 04/12/17 09:22 Pantoprazole (Protonix) 40 mg Q12HR IVP 04/12/17 09:00 05/08/17 20:59 04/12/17 09:22 Sodium Chloride 1,000 ml @ 100 mls/hr Q10H IV 04/11/17 22:45 05/08/17 01:59 04/12/17 09:21 Sucralfate (Carafate) 1 gm EVERY 6 HOURS GT 04/12/17 00:00 05/12/17 00:00 Vancomycin HCl (Vanco rx to dose) 1 ea DAILY PRN MISC Per rx protocol 04/12/17 09:00 05/08/17 01:14 Vancomycin/Sodium Chloride 250 ml @ 166.667 mls/hr Q24H IVPB 04/12/17 17:00 04/16/17 16:59 MARCY MAJOR Apr 12, 2017 09:35
[2017-04-12] MEDS: Amikacin for Inhalation 2ML INH SCH ×2 (10:04→20:51)
[2017-04-12 10:58] LABS: EOSINOPHILS % (AUTO) 1.3 % (0.0-3.0); LYMPHOCYTES % (AUTO) 10.7 % (20.0-45.0); MEAN CORPUSCULAR HEMOGLOBIN 29.1 PG (27.0-31.0); MEAN CORPUSCULAR HGB CONC 31.5 G/DL (32.0-36.0); MEAN CORPUSCULAR VOLUME 92 FL (80-99); MEAN PLATELET VOLUME 6.1 FL (6.5-10.1); MONOCYTES % (AUTO) 9.8 % (1.0-10.0); NEUTROPHILS % (AUTO) 77.2 % (45.0-75.0); PLATELET COUNT 151 K/UL (150-450); RED BLOOD COUNT 3.53 M/UL (4.20-5.40); RED CELL DISTRIBUTION WIDTH 13.8 % (11.6-14.8); WHITE BLOOD COUNT 15.4 K/UL (4.8-10.8)
--- NOTE | 2017-04-12 11:09 | General Progress Note ---
Assessment/Plan Assessment/Plan Assessment - malnutrition - H&N CA - s/p XRT - GIB - failed EGD due to "frozen" throat / neck from XRT - anemia - GI bleed vs possibly neck tumor bleed Recommendations - Hold TF - BID PPI - add q6 carafate - serial CBC - transfuse PRN - Consider ENT consult - await transfer to [facility] for IR embolization Subjective Allergies: Coded Allergies: PENICILLINS (Verified Allergy, Unknown, 07/31/16) Subjective Above noted now in ICU some trach site and nasal oozing of blood s/p RBC transfusion x 2 am labs pending Objective Last 24 Hour Vital Signs Date Time Temp Pulse Resp B/P (MAP) Pulse Ox O2 Delivery O2 Flow Rate FiO2 04/12/17 10:40 93 20 35 04/12/17 10:13 101 22 99 Mechanical Ventilator 35 04/12/17 10:04 80 23 100 Mechanical Ventilator 35 04/12/17 10:04 35 04/12/17 09:21 89 04/12/17 09:00 88 22 104/49 100 Mechanical Ventilator 35 04/12/17 08:50 95 20 35 04/12/17 08:00 96 04/12/17 08:00 35 04/12/17 08:00 98.8 96 23 102/47 100 Mechanical Ventilator 35 04/12/17 07:17 95 04/12/17 07:03 93 19 35 04/12/17 07:00 94 21 103/48 100 Mechanical Ventilator 35 04/12/17 06:00 90 21 110/49 100 Mechanical Ventilator 35 04/12/17 05:00 99 22 102/49 100 Mechanical Ventilator 35 04/12/17 04:50 105 26 35 04/12/17 04:00 35 04/12/17 04:00 99.0 103 22 87/41 100 Mechanical Ventilator 35 04/12/17 04:00 101 04/12/17 03:13 102 20 35 04/12/17 03:00 105 24 90/47 100 Mechanical Ventilator 35 04/12/17 02:00 106 23 88/45 100 Mechanical Ventilator 35 04/12/17 01:22 105 25 35 04/12/17 01:00 106 25 110/50 100 Mechanical Ventilator 35 04/12/17 00:00 100 04/12/17 00:00 99.2 106 25 126/56 100 Mechanical Ventilator 35 04/12/17 00:00 35 04/11/17 23:36 35 04/11/17 23:36 103 24 99 Mechanical Ventilator 35 04/11/17 23:33 35 04/11/17 23:33 89 22 99 Mechanical Ventilator 35 04/11/17 23:26 101 16 99 Mechanical Ventilator 35 04/11/17 23:01 97 22 35 04/11/17 21:37 113 30 35 04/11/17 20:00 79 04/11/17 20:00 99.7 100 21 109/67 98 Mechanical Ventilator 35 04/11/17 20:00 35 04/11/17 19:20 113 30 35 04/11/17 16:38 86 23 35 04/11/17 16:00 81 04/11/17 16:00 97.9 81 21 121/62 99 Mechanical Ventilator 35 04/11/17 16:00 35 04/11/17 14:30 87 24 35 04/11/17 12:32 79 23 35 04/11/17 12:00 35 04/11/17 12:00 97.3 82 24 114/61 100 Mechanical Ventilator 35 04/11/17 11:42 78 Intake and Output 04/12/17 04/13/17 19:00 07:00 Intake Total 300 ml Balance 300 ml Blood Product 250 ml Other 50 ml Laboratory Tests 04/11/17 19:22: White Blood Count 18.1H, Red Blood Count 3.28L, Hemoglobin 9.6L, Hematocrit 30.3L, Mean Corpuscular Volume 92, Mean Corpuscular Hemoglobin 29.4, Mean Corpuscular Hemoglobin Concent 31.8L, Red Cell Distribution Width 13.8, Platelet Count 191, Mean Platelet Volume 6.1L, Neutrophils (%) (Auto) 73.9, Lymphocytes (%) (Auto) 15.5L, Monocytes (%) (Auto) 8.1, Eosinophils (%) (Auto) 1.8, Basophils (%) (Auto) 0.7 04/12/17 10:40: White Blood Count 15.4H, Red Blood Count 3.53L, Hemoglobin 10.3L, Hematocrit 32.6L, Mean Corpuscular Volume 92, Mean Corpuscular Hemoglobin 29.1, Mean Corpuscular Hemoglobin Concent 31.5L, Red Cell Distribution Width 13.8, Platelet Count 151, Mean Platelet Volume 6.1L, Neutrophils (%) (Auto) 77.2H, Lymphocytes (%) (Auto) 10.7L, Monocytes (%) (Auto) 9.8, Eosinophils (%) (Auto) 1.3, Basophils (%) (Auto) 1.0, Sodium Level [Pending], Potassium Level [Pending] , Chloride Level [Pending], Carbon Dioxide Level [Pending], Blood Urea Nitrogen [Pending], Creatinine [Pending], Estimat Glomerular Filtration Rate [Pending], Glucose Level [Pending], Calcium Level [Pending] Height (Feet): 5 Weight (Pounds): 99 Objective Debilitated elderly Woman NCAT Neck stiff from XRT, (+) trach coarse BS RR abd soft, ND, (+) GT no edema OBS BIN MYERS Apr 12, 2017 11:09
[2017-04-12 11:19] LABS: ANION GAP 3 mmol/L (5-15); CARBON DIOXIDE 29 MMOL/L (21-32); CHLORIDE 113 MMOL/L (98-107); CREATININE 0.5 MG/DL (0.55-1.30); POTASSIUM 4.1 MMOL/L (3.5-5.1); SODIUM 145 MMOL/L (136-145)
--- NOTE | 2017-04-12 12:50 | General Progress Note ---
Assessment/Plan Problem List: (1) new onset of generalised seizure activity (2) Acute GI hemorrhage ICD Codes: K92.2 - Gastrointestinal hemorrhage, unspecified SNOMED: 09418552 (3) Tongue malignant neoplasm ICD Codes: C02.9 - Malignant neoplasm of tongue, unspecified SNOMED: 526721189 (4) Lung nodule seen on imaging study ICD Codes: R91.1 - Solitary pulmonary nodule SNOMED: 819694410 Status: stable, progressing Assessment/Plan serial cbc ppi transfuse prn monitor for further bleeding vent resp rx suctioning abx added for pna on the transfer list for [facility] for IR embolization Subjective ROS Limited/Unobtainable: Yes Constitutional: Reports: malaise, weakness HEENT: Reports: no symptoms Cardiovascular: Reports: no symptoms Respiratory: Reports: no symptoms Gastrointestinal/Abdominal: Reports: tarry stools, blood in stool Genitourinary: Reports: no symptoms Neurologic/Psychiatric: Reports: pre-existing deficit Endocrine: Reports: no symptoms Hematologic/Lymphatic: Reports: anemia Allergies: Coded Allergies: PENICILLINS (Verified Allergy, Unknown, 07/31/16) All Systems: reviewed and negative except above Subjective transferred to icu for active gib. multiple bloody BMs last night. D/w GI- transfer to [facility] recommended for IR. No IR available for embolization here Objective Last 24 Hour Vital Signs Date Time Temp Pulse Resp B/P (MAP) Pulse Ox O2 Delivery O2 Flow Rate FiO2 04/12/17 12:00 98.6 78 19 103/52 100 Mechanical Ventilator 35 04/12/17 12:00 78 04/12/17 12:00 35 04/12/17 11:00 84 22 100/49 100 Mechanical Ventilator 35 04/12/17 10:40 93 20 35 04/12/17 10:13 101 22 99 Mechanical Ventilator 35 04/12/17 10:04 80 23 100 Mechanical Ventilator 35 04/12/17 10:04 35 04/12/17 10:00 86 18 98/44 100 Mechanical Ventilator 35 04/12/17 09:21 89 04/12/17 09:00 88 22 104/49 100 Mechanical Ventilator 35 04/12/17 08:50 95 20 35 04/12/17 08:00 96 04/12/17 08:00 35 04/12/17 08:00 98.8 96 23 102/47 100 Mechanical Ventilator 35 04/12/17 07:17 95 11/9/17 07:03 93 19 35 04/12/17 07:00 94 21 103/48 100 Mechanical Ventilator 35 04/12/17 06:00 90 21 110/49 100 Mechanical Ventilator 35 04/12/17 05:00 99 22 102/49 100 Mechanical Ventilator 35 04/12/17 04:50 105 26 35 04/12/17 04:00 35 04/12/17 04:00 99.0 103 22 87/41 100 Mechanical Ventilator 35 04/12/17 04:00 101 04/12/17 03:13 102 20 35 04/12/17 03:00 105 24 90/47 100 Mechanical Ventilator 35 04/12/17 02:00 106 23 88/45 100 Mechanical Ventilator 35 04/12/17 01:22 105 25 35 04/12/17 01:00 106 25 110/50 100 Mechanical Ventilator 35 04/12/17 00:00 100 04/12/17 00:00 99.2 106 25 126/56 100 Mechanical Ventilator 35 04/12/17 00:00 35 04/11/17 23:36 35 04/11/17 23:36 103 24 99 Mechanical Ventilator 35 04/11/17 23:33 35 04/11/17 23:33 89 22 99 Mechanical Ventilator 35 04/11/17 23:26 101 16 99 Mechanical Ventilator 35 04/11/17 23:01 97 22 35 04/11/17 21:37 113 30 35 04/11/17 20:00 79 04/11/17 20:00 99.7 100 21 109/67 98 Mechanical Ventilator 35 04/11/17 20:00 35 04/11/17 19:20 113 30 35 04/11/17 16:38 86 23 35 04/11/17 16:00 81 04/11/17 16:00 97.9 81 21 121/62 99 Mechanical Ventilator 35 04/11/17 16:00 35 04/11/17 14:30 87 24 35 Intake and Output 04/12/17 04/13/17 19:00 07:00 Intake Total 600 ml Balance 600 ml IV Total 300 ml Blood Product 250 ml Other 50 ml Laboratory Tests 04/11/17 19:22: White Blood Count 18.1H, Red Blood Count 3.28L, Hemoglobin 9.6L, Hematocrit 30.3L, Mean Corpuscular Volume 92, Mean Corpuscular Hemoglobin 29.4, Mean Corpuscular Hemoglobin Concent 31.8L, Red Cell Distribution Width 13.8, Platelet Count 191, Mean Platelet Volume 6.1L, Neutrophils (%) (Auto) 73.9, Lymphocytes (%) (Auto) 15.5L, Monocytes (%) (Auto) 8.1, Eosinophils (%) (Auto) 1.8, Basophils (%) (Auto) 0.7 04/12/17 10:40: White Blood Count 15.4H, Red Blood Count 3.53L, Hemoglobin 10.3L, Hematocrit 32.6L, Mean Corpuscular Volume 92, Mean Corpuscular Hemoglobin 29.1, Mean Corpuscular Hemoglobin Concent 31.5L, Red Cell Distribution Width 13.8, Platelet Count 151, Mean Platelet Volume 6.1L, Neutrophils (%) (Auto) 77.2H, Lymphocytes (%) (Auto) 10.7L, Monocytes (%) (Auto) 9.8, Eosinophils (%) (Auto) 1.3, Basophils (%) (Auto) 1.0, Sodium Level 145, Potassium Level 4.1, Chloride Level 113H, Carbon Dioxide Level 29, Anion Gap 3L, Blood Urea Nitrogen 31H, Creatinine 0.5L, Estimat Glomerular Filtration Rate , Glucose Level 109H, Calcium Level 8.0L Height (Feet): 5 Weight (Pounds): 99 Objective GENERAL: The patient is a well-developed thin female, in no apparent distress, on the vent. She is arousable. NECK: Supple. Trachea is midline. There is no discharge. HEART: Regular rate and rhythm. LUNGS: Clear. ABDOMEN: Soft, nontender, and nondistended. EXTREMITIES: Without clubbing, cyanosis, or edema. CHRISTINA HAMMOND Apr 12, 2017 12:50
[2017-04-12] MEDS ORDERED: Meropenem 1gm in NS 110ml IVPB ONE (16:00)
--- NOTE | 2017-04-12 16:30 | Diagnostic Imaging Report ---
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 The right upper extremity was prepped with alcohol. All elements of maximal sterile barrier technique were followed including usage of a cap, mask, sterile gown, sterile gloves, hand hygiene and a large sterile sheet. Sonographic evaluation of the upper extremity was performed demonstrating a patent and compressible brachial vein. Access was obtained under real-time ultrasound guidance (with utilization of sterile gel and sterile probe cover) and digital image was saved and archived. An .018 wire was introduced. Needle exchanged for a 5 [place] peel-away sheath. Measurements were obtained. A 5 [place] dual-lumen Power PICC line catheter was cut to 35 cm and introduced over the wire. Peel-away sheath and wire were removed.Catheter was secured to the skin using 2-0 Prolene suture. Both ports aspirate and flush easily. Post procedure chest x-ray demonstrates position of the PICC line catheter within the right jugular vein. This will be repositioned. Impression: Successful placement of an upper extremity PICC line catheter. Catheter will be repositioned
[2017-04-12] MEDS ORDERED: Vancomycin 750mg/NS 250ml 250 ML IVPB SCH (17:00)
[2017-04-12] MEDS: Dyna-Hex 2% Top Sol 2oz TOPIC SCH (20:17)
[2017-04-12 20:47] LABS: BASOPHILS % (AUTO) 0.9 % (0.0-2.0); LYMPHOCYTES % (AUTO) 12.9 % (20.0-45.0); MEAN CORPUSCULAR HEMOGLOBIN 29.1 PG (27.0-31.0); MEAN CORPUSCULAR HGB CONC 32.2 G/DL (32.0-36.0); MEAN CORPUSCULAR VOLUME 90 FL (80-99); MEAN PLATELET VOLUME 6.3 FL (6.5-10.1); MONOCYTES % (AUTO) 8.8 % (1.0-10.0); NEUTROPHILS % (AUTO) 75.4 % (45.0-75.0); PLATELET COUNT 147 K/UL (150-450); RED BLOOD COUNT 3.25 M/UL (4.20-5.40); RED CELL DISTRIBUTION WIDTH 13.3 % (11.6-14.8); WHITE BLOOD COUNT 11.9 K/UL (4.8-10.8)
[2017-04-12] MEDS ORDERED: Cefepime HCl 2 GM in NS 110 ML IV SCH (21:00)
--- NOTE | 2017-04-12 23:15 | Progress Note ---
DATE: 04/12/2017 CARDIOLOGY PROGRESS NOTE SUBJECTIVE: The patient remains in the intensive care unit. Bleeding is ongoing. We are awaiting transfer to a tertiary facility for attempted interventional Radiology embolization. The patient is being transfused, based on persistent anemia due to active bleeding. The patient is on respiratory therapy and antimicrobials. The patient remains in sinus rhythm and on antiarrhythmics for suppression of atrial tachyarrhythmias. OBJECTIVE: VITAL SIGNS: Blood pressure is 103/52, pulse rate 78, respiratory rate 19, and afebrile. NECK: Thin trach secretion. CHEST: Bilateral rhonchi. HEART: Regular rhythm and rate. Normal S1 and S2. ABDOMEN: Soft. EXTREMITIES: No edema. RECTAL: Stool melanic. There is some blood also noted with suctioning. LABORATORY DATA: White count 15 and hemoglobin 10. Potassium 4.1, BUN 31, and creatinine 0.5. IMPRESSION: 1. Remains critical and guarded. 2. Active bleeding. 3. Respiratory failure. 4. Paroxysmal atrial fibrillation. 5. Severe protein-calorie malnutrition. 6. Metastatic head and neck cancer. PLAN: ICU plan of care reviewed and updated as was ordered and all discussed with the ICU staff. Chi Bhatti M.D. DR: Sanjeev JOB#: [id number] CC:
[2017-04-13] VITALS (22 sets, daily range): BP systolic 102–137; BP diastolic 41–51
[2017-04-13] MEDS: Sucralfate 1gm tab GT SCH ×4 (00:07→18:00)
--- NOTE | 2017-04-13 08:19 | General Progress Note ---
Assessment/Plan Assessment/Plan Assessment - malnutrition / GT dependent - H&N CA - s/p XRT - UGI bleed (blood aspirated by RN via GT 2 days ago) vs possibly neck tumor bleed - failed EGD due to "frozen" throat / neck from XRT - anemia - ? possibly a lower GI bleed Recommendations - continue to hold feeds - laxative to clear out old blood from GI tract - nuc med bleeding scan - BID PPI and q6 carafate - serial CBC - transfuse PRN - await transfer to [facility] for IR embolization - will consider colonoscopy Subjective Allergies: Coded Allergies: PENICILLINS (Verified Allergy, Unknown, 07/31/16) Subjective Above noted off of feeds RN reports burgendy stools GT lavaged by GI - no blood (had blood 2 days ago per RN) Objective Last 24 Hour Vital Signs Date Time Temp Pulse Resp B/P (MAP) Pulse Ox O2 Delivery O2 Flow Rate FiO2 04/13/17 07:20 87 25 35 04/13/17 07:00 87 21 110/48 100 Mechanical Ventilator 35 04/13/17 06:00 85 22 113/49 100 Mechanical Ventilator 35 04/13/17 05:19 88 21 35 04/13/17 05:00 88 22 110/43 100 Mechanical Ventilator 35 04/13/17 04:00 83 04/13/17 04:00 98.4 83 21 104/42 100 Mechanical Ventilator 35 04/13/17 04:00 35 04/13/17 03:00 82 21 103/43 100 Mechanical Ventilator 35 04/13/17 02:30 82 21 35 04/13/17 02:00 81 21 106/41 100 Mechanical Ventilator 35 04/13/17 01:20 78 22 35 04/13/17 01:00 82 21 109/45 99 Mechanical Ventilator 35 04/13/17 00:00 85 04/13/17 00:00 35 04/13/17 00:00 98.3 86 20 102/44 100 Mechanical Ventilator 35 04/12/17 23:23 89 29 35 04/12/17 21:00 80 16 100 Mechanical Ventilator 35 04/12/17 20:44 35 04/12/17 20:43 74 20 100 Mechanical Ventilator 35 04/12/17 20:42 74 20 35 04/12/17 20:00 97.9 75 21 103/34 100 Mechanical Ventilator 35 04/12/17 20:00 35 04/12/17 19:29 73 04/12/17 19:03 74 21 35 04/12/17 19:00 82 22 123/42 100 Mechanical Ventilator 35 04/12/17 18:00 78 22 100/35 100 Mechanical Ventilator 35 04/12/17 17:00 77 22 98/35 100 Mechanical Ventilator 35 04/12/17 16:51 75 19 35 04/12/17 16:00 35 04/12/17 16:00 98.6 77 22 107/41 100 Mechanical Ventilator 35 04/12/17 16:00 75 04/12/17 15:00 75 22 103/52 100 Mechanical Ventilator 35 04/12/17 14:33 82 21 35 04/12/17 14:00 83 22 100/49 100 Mechanical Ventilator 35 04/12/17 13:10 75 19 35 04/12/17 13:00 79 22 102/50 100 Mechanical Ventilator 35 04/12/17 12:00 98.6 78 19 103/52 100 Mechanical Ventilator 35 04/12/17 12:00 78 04/12/17 12:00 35 04/12/17 11:00 84 22 100/49 100 Mechanical Ventilator 35 04/12/17 10:40 93 20 35 04/12/17 10:13 101 22 99 Mechanical Ventilator 35 04/12/17 10:04 80 23 100 Mechanical Ventilator 35 04/12/17 10:04 35 04/12/17 10:00 86 18 98/44 100 Mechanical Ventilator 35 04/12/17 09:21 89 04/12/17 09:00 88 22 104/49 100 Mechanical Ventilator 35 04/12/17 08:50 95 20 35 Laboratory Tests 04/12/17 10:40: White Blood Count 15.4H, Red Blood Count 3.53L, Hemoglobin 10.3L, Hematocrit 32.6L, Mean Corpuscular Volume 92, Mean Corpuscular Hemoglobin 29.1, Mean Corpuscular Hemoglobin Concent 31.5L, Red Cell Distribution Width 13.8, Platelet Count 151, Mean Platelet Volume 6.1L, Neutrophils (%) (Auto) 77.2H, Lymphocytes (%) (Auto) 10.7L, Monocytes (%) (Auto) 9.8, Eosinophils (%) (Auto) 1.3, Basophils (%) (Auto) 1.0, Sodium Level 145, Potassium Level 4.1, Chloride Level 113H, Carbon Dioxide Level 29, Anion Gap 3L, Blood Urea Nitrogen 31H, Creatinine 0.5L, Estimat Glomerular Filtration Rate , Glucose Level 109H, Calcium Level 8.0L 04/12/17 20:10: White Blood Count 11.9H, Red Blood Count 3.25L, Hemoglobin 9.4L, Hematocrit 29.3L, Mean Corpuscular Volume 90, Mean Corpuscular Hemoglobin 29.1, Mean Corpuscular Hemoglobin Concent 32.2, Red Cell Distribution Width 13.3, Platelet Count 147L, Mean Platelet Volume 6.3L, Neutrophils (%) (Auto) 75.4H, Lymphocytes (%) (Auto) 12.9L, Monocytes (%) (Auto) 8.8, Eosinophils (%) (Auto) 2.0, Basophils (%) (Auto) 0.9 Height (Feet): 5 Weight (Pounds): 99 Objective Debilitated elderly Woman NCAT Neck stiff from XRT, (+) trach coarse BS RR abd soft, ND, (+) GT no edema OBS BIN MYERS Apr 13, 2017 08:19
[2017-04-13] MEDS ORDERED: Sorbitol Solution UD 30ml ORAL ONE (08:30)
[2017-04-13] MEDS: Midodrine 10mg tab GT SCH ×3 (08:43→18:00)
[2017-04-13] MEDS: Digoxin Elixir 0.125mg GT SCH (08:43)
[2017-04-13] MEDS: Multivitamins W/Minerals 15 ML UDC GT SCH (08:43)
[2017-04-13] MEDS: Pantoprazole Inj IVP SCH ×2 (08:44→20:49)
[2017-04-13] MEDS: levETIRAcetam 500mg/5ml Liquid GT SCH ×2 (08:45→20:49)
--- NOTE | 2017-04-13 09:02 | Pulmonology Progress Note ---
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 GT, trach, anemia, possible GIB; s/p transfusion hypoxemia, failure to thrive PLAN GI follow up monitor HH care noted as is respiratory care as is soft tip catheter for home use- son aware Ventilatory support as is may need higher level of care for embolization procedure supportive care as outlined and monitor for change suction with caution and monitor for bleeding no wean planned at present oxygen therapy noted trach change monthly prognosis poor avoid excessive suctioning medications/laboratory data/nursing notes/ICU care reviewed in detail note reviewed and edited care discussed with RN and RT ICU time spent 35 minutes Subjective ROS Limited/Unobtainable: Yes Allergies: Coded Allergies: PENICILLINS (Verified Allergy, Unknown, 07/31/16) Subjective on the vent care noted and discussed active bleeding overnight transferred to ICU now improved Objective Last 24 Hour Vital Signs Date Time Temp Pulse Resp B/P (MAP) Pulse Ox O2 Delivery O2 Flow Rate FiO2 04/13/17 08:43 84 04/13/17 08:00 35 04/13/17 08:00 84 04/13/17 08:00 97.7 84 21 114/49 100 Mechanical Ventilator 35 04/13/17 07:20 87 25 35 04/13/17 07:00 87 21 110/48 100 Mechanical Ventilator 35 04/13/17 06:00 85 22 113/49 100 Mechanical Ventilator 35 04/13/17 05:19 88 21 35 04/13/17 05:00 88 22 110/43 100 Mechanical Ventilator 35 04/13/17 04:00 83 04/13/17 04:00 98.4 83 21 104/42 100 Mechanical Ventilator 35 04/13/17 04:00 35 04/13/17 03:00 82 21 103/43 100 Mechanical Ventilator 35 04/13/17 02:30 82 21 35 04/13/17 02:00 81 21 106/41 100 Mechanical Ventilator 35 04/13/17 01:20 78 22 35 04/13/17 01:00 82 21 109/45 99 Mechanical Ventilator 35 04/13/17 00:00 85 04/13/17 00:00 35 04/13/17 00:00 98.3 86 20 102/44 100 Mechanical Ventilator 35 04/12/17 23:23 89 29 35 04/12/17 21:00 80 16 100 Mechanical Ventilator 35 04/12/17 20:44 35 04/12/17 20:43 74 20 100 Mechanical Ventilator 35 04/12/17 20:42 74 20 35 04/12/17 20:00 97.9 75 21 103/34 100 Mechanical Ventilator 35 04/12/17 20:00 35 04/12/17 19:29 73 04/12/17 19:03 74 21 35 04/12/17 19:00 82 22 123/42 100 Mechanical Ventilator 35 04/12/17 18:00 78 22 100/35 100 Mechanical Ventilator 35 04/12/17 17:00 77 22 98/35 100 Mechanical Ventilator 35 04/12/17 16:51 75 19 35 04/12/17 16:00 35 04/12/17 16:00 98.6 77 22 107/41 100 Mechanical Ventilator 35 04/12/17 16:00 75 04/12/17 15:00 75 22 103/52 100 Mechanical Ventilator 35 04/12/17 14:33 82 21 35 04/12/17 14:00 83 22 100/49 100 Mechanical Ventilator 35 04/12/17 13:10 75 19 35 04/12/17 13:00 79 22 102/50 100 Mechanical Ventilator 35 04/12/17 12:00 98.6 78 19 103/52 100 Mechanical Ventilator 35 04/12/17 12:00 78 04/12/17 12:00 35 04/12/17 11:00 84 22 100/49 100 Mechanical Ventilator 35 04/12/17 10:40 93 20 35 04/12/17 10:13 101 22 99 Mechanical Ventilator 35 04/12/17 10:04 80 23 100 Mechanical Ventilator 35 04/12/17 10:04 35 04/12/17 10:00 86 18 98/44 100 Mechanical Ventilator 35 04/12/17 09:21 89 Intake and Output 04/13/17 04/14/17 19:00 07:00 Intake Total 100 ml Balance 100 ml IV Total 100 ml # Bowel Movements 1 Objective WDWN NAD trach reduced breath sounds bilaterally with minimal rhonchi [id number] without MRG NABS nontender no HSM; GT; no distention no CC mild edema and same weak with reduced ROM nonfocal skin exam noted Laboratory Tests 04/12/17 10:40: White Blood Count 15.4H, Red Blood Count 3.53L, Hemoglobin 10.3L, Hematocrit 32.6L, Mean Corpuscular Volume 92, Mean Corpuscular Hemoglobin 29.1, Mean Corpuscular Hemoglobin Concent 31.5L, Red Cell Distribution Width 13.8, Platelet Count 151, Mean Platelet Volume 6.1L, Neutrophils (%) (Auto) 77.2H, Lymphocytes (%) (Auto) 10.7L, Monocytes (%) (Auto) 9.8, Eosinophils (%) (Auto) 1.3, Basophils (%) (Auto) 1.0, Sodium Level 145, Potassium Level 4.1, Chloride Level 113H, Carbon Dioxide Level 29, Anion Gap 3L, Blood Urea Nitrogen 31H, Creatinine 0.5L, Estimat Glomerular Filtration Rate , Glucose Level 109H, Calcium Level 8.0L 04/12/17 20:10: White Blood Count 11.9H, Red Blood Count 3.25L, Hemoglobin 9.4L, Hematocrit 29.3L, Mean Corpuscular Volume 90, Mean Corpuscular Hemoglobin 29.1, Mean Corpuscular Hemoglobin Concent 32.2, Red Cell Distribution Width 13.3, Platelet Count 147L, Mean Platelet Volume 6.3L, Neutrophils (%) (Auto) 75.4H, Lymphocytes (%) (Auto) 12.9L, Monocytes (%) (Auto) 8.8, Eosinophils (%) (Auto) 2.0, Basophils (%) (Auto) 0.9 Current Medications Medications (Trade) Dose Ordered Sig/Josiah Route PRN Reason Start Time Stop Time Status Last Admin Dose Admin Amikacin Sulfate (Amikin) 500 mg Q12HR@ INH 04/11/17 22:00 04/18/17 21:59 04/12/17 20:51 Amitriptyline HCl (Elavil) 10 mg BEDTIME GT 04/12/17 21:00 05/08/17 20:59 04/12/17 20:18 Cefepime HCl 2 gm/ Sodium Chloride 110 ml @ 220 mls/hr QHS IV 04/12/17 21:00 04/17/17 20:59 04/12/17 20:18 Chlorhexidine Gluconate (Cathy-Hex 2%) 1 applic DAILY@1999 TOPIC 04/12/17 20:00 05/12/17 19:59 04/12/17 20:17 Digoxin (Lanoxin) 0.125 mg DAILY GT 04/12/17 09:00 05/08/17 08:59 04/13/17 08:43 Levetiracetam (Keppra) 500 mg BID@0900,2100 GT 04/12/17 09:00 05/12/17 08:59 04/13/17 08:45 Levothyroxine Sodium (Synthroid) 150 mcg ACBREAKFAST GT 04/12/17 06:30 05/08/17 06:29 04/13/17 06:21 Midodrine (Pro-Amatine) 10 mg THREE TIMES A DAY GT 04/12/17 09:00 05/08/17 08:59 04/13/17 08:43 Multivitamins (Multivitamins W/ Minerals 15ml Liquid) 15 ml DAILY GT 04/12/17 09:00 05/08/17 08:59 04/13/17 08:43 Pantoprazole (Protonix) 40 mg Q12HR IVP 04/12/17 09:00 05/08/17 20:59 04/13/17 08:44 Sodium Chloride 1,000 ml @ 100 mls/hr Q10H IV 04/11/17 22:45 05/08/17 01:59 04/13/17 05:03 Sucralfate (Carafate) 1 gm EVERY 6 HOURS GT 04/12/17 00:00 05/12/17 00:00 04/13/17 06:20 Vancomycin HCl (Vanco rx to dose) 1 ea DAILY PRN MISC Per rx protocol 04/12/17 09:00 05/08/17 01:14 Vancomycin/Sodium Chloride 250 ml @ 166.667 mls/hr Q24H IVPB 04/12/17 17:00 04/16/17 16:59 04/12/17 17:25 MARCY MAJOR Apr 13, 2017 09:02
--- NOTE | 2017-04-13 09:26 | General Progress Note ---
Assessment/Plan Problem List: (1) new onset of generalised seizure activity (2) Acute GI hemorrhage ICD Codes: K92.2 - Gastrointestinal hemorrhage, unspecified SNOMED: 98777297 (3) Tongue malignant neoplasm ICD Codes: C02.9 - Malignant neoplasm of tongue, unspecified SNOMED: 973049265 (4) Lung nodule seen on imaging study ICD Codes: R91.1 - Solitary pulmonary nodule SNOMED: 900208193 Status: stable Assessment/Plan serial cbc. await am labs ppi transfuse prn possible colonoscopy monitor for further bleeding vent resp rx suctioning abx added for pna on the transfer list for [facility] for IR embolization Subjective ROS Limited/Unobtainable: No Constitutional: Reports: malaise, weakness HEENT: Reports: no symptoms Cardiovascular: Reports: no symptoms Respiratory: Reports: sputum Gastrointestinal/Abdominal: Reports: blood in stool Genitourinary: Reports: no symptoms Neurologic/Psychiatric: Reports: no symptoms Endocrine: Reports: no symptoms Hematologic/Lymphatic: Reports: anemia Allergies: Coded Allergies: PENICILLINS (Verified Allergy, Unknown, 07/31/16) All Systems: reviewed and negative except above Subjective now with maroon stools. on ppi rx. on the vent. awake. follows commands. Objective Last 24 Hour Vital Signs Date Time Temp Pulse Resp B/P (MAP) Pulse Ox O2 Delivery O2 Flow Rate FiO2 04/13/17 08:43 84 04/13/17 08:00 35 04/13/17 08:00 84 04/13/17 08:00 97.7 84 21 114/49 100 Mechanical Ventilator 35 04/13/17 07:20 87 25 35 04/13/17 07:00 87 21 110/48 100 Mechanical Ventilator 35 04/13/17 06:00 85 22 113/49 100 Mechanical Ventilator 35 04/13/17 05:19 88 21 35 04/13/17 05:00 88 22 110/43 100 Mechanical Ventilator 35 04/13/17 04:00 83 04/13/17 04:00 98.4 83 21 104/42 100 Mechanical Ventilator 35 04/13/17 04:00 35 04/13/17 03:00 82 21 103/43 100 Mechanical Ventilator 35 04/13/17 02:30 82 21 35 04/13/17 02:00 81 21 106/41 100 Mechanical Ventilator 35 04/13/17 01:20 78 22 35 04/13/17 01:00 82 21 109/45 99 Mechanical Ventilator 35 04/13/17 00:00 85 04/13/17 00:00 35 04/13/17 00:00 98.3 86 20 102/44 100 Mechanical Ventilator 35 04/12/17 23:23 89 29 35 04/12/17 21:00 80 16 100 Mechanical Ventilator 35 04/12/17 20:44 35 04/12/17 20:43 74 20 100 Mechanical Ventilator 35 04/12/17 20:42 74 20 35 04/12/17 20:00 97.9 75 21 103/34 100 Mechanical Ventilator 35 04/12/17 20:00 35 04/12/17 19:29 73 04/12/17 19:03 74 21 35 04/12/17 19:00 82 22 123/42 100 Mechanical Ventilator 35 04/12/17 18:00 78 22 100/35 100 Mechanical Ventilator 35 04/12/17 17:00 77 22 98/35 100 Mechanical Ventilator 35 04/12/17 16:51 75 19 35 04/12/17 16:00 35 04/12/17 16:00 98.6 77 22 107/41 100 Mechanical Ventilator 35 04/12/17 16:00 75 04/12/17 15:00 75 22 103/52 100 Mechanical Ventilator 35 04/12/17 14:33 82 21 35 04/12/17 14:00 83 22 100/49 100 Mechanical Ventilator 35 04/12/17 13:10 75 19 35 04/12/17 13:00 79 22 102/50 100 Mechanical Ventilator 35 04/12/17 12:00 98.6 78 19 103/52 100 Mechanical Ventilator 35 04/12/17 12:00 78 04/12/17 12:00 35 04/12/17 11:00 84 22 100/49 100 Mechanical Ventilator 35 04/12/17 10:40 93 20 35 04/12/17 10:13 101 22 99 Mechanical Ventilator 35 04/12/17 10:04 80 23 100 Mechanical Ventilator 35 04/12/17 10:04 35 04/12/17 10:00 86 18 98/44 100 Mechanical Ventilator 35 Intake and Output 04/13/17 04/14/17 19:00 07:00 Intake Total 100 ml Balance 100 ml IV Total 100 ml # Bowel Movements 1 Laboratory Tests 04/12/17 10:40: White Blood Count 15.4H, Red Blood Count 3.53L, Hemoglobin 10.3L, Hematocrit 32.6L, Mean Corpuscular Volume 92, Mean Corpuscular Hemoglobin 29.1, Mean Corpuscular Hemoglobin Concent 31.5L, Red Cell Distribution Width 13.8, Platelet Count 151, Mean Platelet Volume 6.1L, Neutrophils (%) (Auto) 77.2H, Lymphocytes (%) (Auto) 10.7L, Monocytes (%) (Auto) 9.8, Eosinophils (%) (Auto) 1.3, Basophils (%) (Auto) 1.0, Sodium Level 145, Potassium Level 4.1, Chloride Level 113H, Carbon Dioxide Level 29, Anion Gap 3L, Blood Urea Nitrogen 31H, Creatinine 0.5L, Estimat Glomerular Filtration Rate , Glucose Level 109H, Calcium Level 8.0L 04/12/17 20:10: White Blood Count 11.9H, Red Blood Count 3.25L, Hemoglobin 9.4L, Hematocrit 29.3L, Mean Corpuscular Volume 90, Mean Corpuscular Hemoglobin 29.1, Mean Corpuscular Hemoglobin Concent 32.2, Red Cell Distribution Width 13.3, Platelet Count 147L, Mean Platelet Volume 6.3L, Neutrophils (%) (Auto) 75.4H, Lymphocytes (%) (Auto) 12.9L, Monocytes (%) (Auto) 8.8, Eosinophils (%) (Auto) 2.0, Basophils (%) (Auto) 0.9 Height (Feet): 5 Weight (Pounds): 99 Objective GENERAL: The patient is a well-developed thin female, in no apparent distress, on the vent. She is arousable. NECK: Supple. Trachea is midline. There is no discharge. HEART: Regular rate and rhythm. LUNGS: Clear. ABDOMEN: Soft, nontender, and nondistended. EXTREMITIES: Without clubbing, cyanosis, or edema. CHRISTINA HAMMOND Apr 13, 2017 09:26
[2017-04-13] MEDS: Amikacin for Inhalation 2ML INH SCH ×2 (10:02→21:23)
--- NOTE | 2017-04-13 12:38 | Diagnostic Imaging Report ---
Indication: Line placement Comparison: One hour earlier A single view chest radiograph was obtained. Findings: That has been pulled into the right subclavian vein and is in good position. No change otherwise. Impression: PICC line cleared for use
[2017-04-13] MEDS ORDERED: Heplock Flush 100 units/ml 3 ml syr IV ONE (13:00)
--- NOTE | 2017-04-13 14:14 | Diagnostic Imaging Report ---
APPROVED REPORT CPT Code: 58537 Present Symptoms Comments: R/O DVT BILATERAL: Imaging reveals a patent deep venous system bilaterally. There is no evidence of thrombus within the femoral, popliteal or tibial segments. The greater saphenous veins are also within normal limits. Doppler indicates normal spontaneous flow within these segments.
[2017-04-13] MEDS ORDERED: NS 275ml ONE (15:07)
[2017-04-13] MEDS ORDERED: Tubing IV Blood Pump IV ONE (15:07)
--- NOTE | 2017-04-13 16:02 | Diagnostic Imaging Report ---
Indication: Acute GI bleed Technique: 25.2 mCi Tc99m Ultratag labelled RBCs injected intravenously. Dynamic imaging of the abdomen obtained up to 55 minutes. Comparison: None Findings: Dynamic imaging of the abdomen and pelvis demonstrate normal blood pool structures such as the liver, spleen, IVC and aorta. No gastrointestinal uptake is identified. Bladder excretion of tracer noted. Impression: Negative GI bleeding scan.
[2017-04-13 17:27] LABS: BASOPHILS % (AUTO) 1.1 % (0.0-2.0); EOSINOPHILS % (AUTO) 1.4 % (0.0-3.0); MEAN CORPUSCULAR HGB CONC 32.2 G/DL (32.0-36.0); MEAN CORPUSCULAR VOLUME 90 FL (80-99); MEAN PLATELET VOLUME 6.1 FL (6.5-10.1); MONOCYTES % (AUTO) 7.5 % (1.0-10.0); PLATELET COUNT 178 K/UL (150-450); RED BLOOD COUNT 3.53 M/UL (4.20-5.40); RED CELL DISTRIBUTION WIDTH 12.8 % (11.6-14.8); WHITE BLOOD COUNT 13.4 K/UL (4.8-10.8)
--- NOTE | 2017-04-13 19:15 | Consultation ---
DATE OF CONSULTATION: 04/13/2017 INFECTIOUS DISEASES CONSULTATION REFERRING PHYSICIAN: Rico Madrigal M.D. REASON FOR CONSULTATION: Pneumonia. HISTORY OF PRESENT ILLNESS: This is a 81-year-old lady with history of head and neck cancer, chronic respiratory failure, status post tracheostomy with a prior urinary tract infection and a gastrointestinal bleeding, who came in because she was anemic. She has been seen by Gastroenterology and she underwent an EGD that failed and an Infectious Diseases consultation has been obtained for antibiotics. PAST MEDICAL HISTORY: 1. History of head and neck cancer. 2. Respiratory failure status post tracheostomy. 3. Status post G-tube placement. 4. History of gastrointestinal bleeding. MEDICATIONS: As an inpatient, the patient is on cefepime, Elavil, chlorhexidine, gluconate, IV vancomycin, digoxin, Keppra, midodrine, multivitamin, Protonix, levothyroxine, sucralfate, and inhaled amikacin. ALLERGIES: The patient is allergic to penicillin. SOCIAL HISTORY: Unknown. FAMILY HISTORY: Unknown. REVIEW OF SYSTEMS: Unable to obtain currently. PHYSICAL EXAMINATION: VITAL SIGNS: Temperature of 97.9 degrees, T-max of 98.6 degrees, pulse of 88, respiratory of 18, blood pressure 115/45 and O2 saturation of 100%. HEENT: Pupils equally reactive to light and accommodation. Mouth appears clean with no thrush. NECK: Supple. No adenopathy. No JVD. Tracheostomy site is clean. CARDIOVASCULAR: Regular rate and rhythm. No murmurs. LUNGS: Clear to auscultation bilaterally. No crackles. No wheezes. ABDOMEN: Soft and nontender. G-tube site appears clean. EXTREMITIES: No cyanosis, no clubbing, and no edema. Right arm PICC line noted. LABORATORY AND DIAGNOSTIC DATA: White count of 11.9, hemoglobin 9.4, hematocrit 29.3, MCV 90, and platelet count of 147. Sodium 145, potassium 4.1, chloride 113, bicarbonate 29, BUN 31, creatinine 0.5 and glucose 109. Calcium of 8. Urinalysis was normal on 04/07/2017. On 04/07/2017 sputum culture growing Pseudomonas and normal [place]. The Pseudomonas is imipenem susceptible and amikacin susceptible. Chest x-ray showing PICC line has been cleared for use. Chest x-ray on 04/07/2017 showed rounded opacity in the left lower lobe. ASSESSMENT: 1. This is a 81-year-old lady with history of head and neck cancer who comes in and is found to have Pseudomonas pneumonia. 2. She also had methicillin resistant Staphylococcus aureus nasal colonization. 3. Leukocytosis is improving. PLAN: 1. Continue inhaled amikacin four more days. 2. Discontinue vancomycin and cefepime. 3. We will follow up cultures and adjust antibiotics accordingly. I would like to thank, Dr. Madrigal, for this consultation. Sai Charles M.D. DR: DEBORAH JOB#: [id number] CC: Rico Madrigal M.D.
[2017-04-13] MEDS: Dyna-Hex 2% Top Sol 2oz TOPIC SCH (20:47)
--- NOTE | 2017-04-13 21:00 | Progress Note ---
DATE: 04/13/2017 CARDIOLOGY PROGRESS NOTE SUBJECTIVE: The patient remains in the intensive care unit. Condition remains critical. Prognosis guarded. The patient is awake and alert. She is on a trach collar. The patient has had scant bleeding noted. Her last transfusions of 2 units packed red blood cells was on 04/11/2017. Her hemoglobin last night was 9.4 dropping from 10.5 the day before. OBJECTIVE: VITAL SIGNS: Blood pressure 107/47, pulse 83, respirations 21, afebrile, monitored rhythm is sinus. NECK: Trach collar with no active bleeding. LUNGS: With good breath sounds. CARDIAC: Regular rhythm and rate. Normal S1 and S2 with a 4th heart sound. ABDOMEN: Soft. G-tube intact. EXTREMITIES: Without edema. IMPRESSION: 1. Metastatic head and neck cancer. 2. Recurrent bleeding from the gastrointestinal tract. 3. Respiratory failure with tracheostomy. 4. Paroxysmal atrial fibrillation. 5. Paroxysmal supraventricular tachycardia. 6. Anemia, status post transfusion. 7. Diastolic dysfunction with history of congestive heart failure. PLAN: 1. Continue digitalis for rate control prophylaxis in the event of recurring atrial arrhythmias. 2. Antimicrobials. 3. Respiratory hygiene. 4. Serial hemoglobin. 5. Transfuse based on clinical parameters. 6. Await transfer to Tertiary care facility for attempted embolization therapy. Chi Bhatti M.D. DR: MADAN JOB#: [id number] CC:
[2017-04-14] VITALS (20 sets, daily range): BP systolic 113–136; BP diastolic 43–87
[2017-04-14] MEDS: Sucralfate 1gm tab GT SCH ×4 (00:06→17:35)
[2017-04-14 05:42] LABS: BASOPHILS % (AUTO) 0.9 % (0.0-2.0); EOSINOPHILS % (AUTO) 2.6 % (0.0-3.0); LYMPHOCYTES % (AUTO) 11.2 % (20.0-45.0); MEAN CORPUSCULAR HEMOGLOBIN 30.6 PG (27.0-31.0); MEAN CORPUSCULAR HGB CONC 34.5 G/DL (32.0-36.0); MEAN CORPUSCULAR VOLUME 89 FL (80-99); MEAN PLATELET VOLUME 6.3 FL (6.5-10.1); MONOCYTES % (AUTO) 8.5 % (1.0-10.0); NEUTROPHILS % (AUTO) 76.9 % (45.0-75.0); PLATELET COUNT 188 K/UL (150-450); RED BLOOD COUNT 3.15 M/UL (4.20-5.40); RED CELL DISTRIBUTION WIDTH 13.2 % (11.6-14.8); WHITE BLOOD COUNT 11.5 K/UL (4.8-10.8)
[2017-04-14] MEDS: levETIRAcetam 500mg/5ml Liquid GT SCH ×2 (08:24→20:34)
[2017-04-14] MEDS: Multivitamins W/Minerals 15 ML UDC GT SCH (08:24)
[2017-04-14] MEDS: Midodrine 10mg tab GT SCH ×3 (08:24→17:35)
[2017-04-14] MEDS: Pantoprazole Inj IVP SCH ×2 (08:25→20:35)
[2017-04-14] MEDS: Digoxin Elixir 0.125mg GT SCH (08:25)
[2017-04-14] MEDS: Amikacin for Inhalation 2ML INH SCH ×2 (09:24→21:28)
--- NOTE | 2017-04-14 10:35 | General Progress Note ---
Assessment/Plan Problem List: (1) new onset of generalised seizure activity (2) Acute GI hemorrhage ICD Codes: K92.2 - Gastrointestinal hemorrhage, unspecified SNOMED: 82242677 (3) Tongue malignant neoplasm ICD Codes: C02.9 - Malignant neoplasm of tongue, unspecified SNOMED: 276055708 (4) Lung nodule seen on imaging study ICD Codes: R91.1 - Solitary pulmonary nodule SNOMED: 994838728 Status: stable, progressing Assessment/Plan serial cbc ppi transfuse prn possible colonoscopy monitor for further bleeding vent resp rx suctioning abx added for pna on the transfer list for [facility] for IR embolization Subjective ROS Limited/Unobtainable: No Constitutional: Reports: malaise, weakness HEENT: Reports: no symptoms Cardiovascular: Reports: no symptoms Respiratory: Reports: cough, sputum Gastrointestinal/Abdominal: Reports: difficulty swallowing Genitourinary: Reports: no symptoms Neurologic/Psychiatric: Reports: pre-existing deficit Endocrine: Reports: no symptoms Hematologic/Lymphatic: Reports: anemia Allergies: Coded Allergies: PENICILLINS (Verified Allergy, Unknown, 07/31/16) All Systems: reviewed and negative except above Subjective now with gree stools. on ppi rx. on the vent. awake. follows commands. h/h slightly lower. no distress Objective Last 24 Hour Vital Signs Date Time Temp Pulse Resp B/P (MAP) Pulse Ox O2 Delivery O2 Flow Rate FiO2 04/14/17 10:00 84 23 118/46 100 Mechanical Ventilator 35 04/14/17 09:26 96 14 100 Mechanical Ventilator 30 04/14/17 09:21 30 04/14/17 09:20 84 24 100 Mechanical Ventilator 30 04/14/17 09:16 84 23 30 04/14/17 09:00 87 23 113/49 100 Mechanical Ventilator 35 04/14/17 08:25 87 04/14/17 08:00 85 04/14/17 08:00 97.8 86 23 115/48 100 Mechanical Ventilator 35 04/14/17 08:00 35 04/14/17 07:00 89 26 30 04/14/17 07:00 84 25 122/46 100 Mechanical Ventilator 35 04/14/17 06:00 86 23 119/51 100 Mechanical Ventilator 35 04/14/17 05:15 86 27 30 04/14/17 05:00 85 26 121/47 100 Mechanical Ventilator 35 04/14/17 04:00 35 04/14/17 04:00 98.5 85 25 118/47 100 Mechanical Ventilator 35 04/14/17 04:00 86 04/14/17 03:12 87 21 30 04/14/17 03:00 89 22 118/47 100 Mechanical Ventilator 35 04/14/17 02:00 85 24 120/49 100 Mechanical Ventilator 35 04/14/17 01:08 86 20 30 04/14/17 01:00 93 28 122/50 100 Mechanical Ventilator 35 04/14/17 00:00 35 04/14/17 00:00 90 04/14/17 00:00 97.5 97 24 122/43 100 Mechanical Ventilator 35 04/13/17 23:00 96.7 86 24 124/44 100 Mechanical Ventilator 35 04/13/17 22:54 85 25 30 04/13/17 22:00 88 26 124/48 100 Mechanical Ventilator 35 04/13/17 21:36 88 28 100 Mechanical Ventilator 30 04/13/17 21:22 87 29 100 Mechanical Ventilator 30 04/13/17 21:22 30 04/13/17 21:21 87 29 30 04/13/17 21:00 91 28 127/48 100 Mechanical Ventilator 35 04/13/17 20:00 98.6 84 27 127/50 100 Mechanical Ventilator 35 04/13/17 20:00 35 04/13/17 19:26 86 04/13/17 19:04 84 27 137/50 100 Mechanical Ventilator 35 04/13/17 18:57 82 24 30 04/13/17 18:00 85 23 117/45 100 Mechanical Ventilator 35 04/13/17 17:25 83 22 30 04/13/17 17:00 81 20 117/45 100 Mechanical Ventilator 35 04/13/17 16:00 97.6 82 19 117/51 100 Mechanical Ventilator 35 04/13/17 16:00 35 04/13/17 16:00 81 04/13/17 15:29 88 21 30 04/13/17 15:00 83 21 115/45 100 Mechanical Ventilator 35 04/13/17 13:00 80 21 122/41 100 Mechanical Ventilator 35 04/13/17 12:47 89 21 30 04/13/17 12:00 88 04/13/17 12:00 35 04/13/17 12:00 97.9 84 18 115/45 100 Mechanical Ventilator 35 04/13/17 11:15 86 21 124/42 100 Mechanical Ventilator 35 04/13/17 11:09 86 21 30 Intake and Output 04/14/17 04/15/17 19:00 07:00 Intake Total 300 ml Balance 300 ml IV Total 300 ml Laboratory Tests 04/13/17 16:45: White Blood Count 13.4H, Red Blood Count 3.53L, Hemoglobin 10.3L, Hematocrit 31.9L, Mean Corpuscular Volume 90, Mean Corpuscular Hemoglobin 29.0, Mean Corpuscular Hemoglobin Concent 32.2, Red Cell Distribution Width 12.8, Platelet Count 178, Mean Platelet Volume 6.1L, Neutrophils (%) (Auto) 81.0H, Lymphocytes (%) (Auto) 9.0L, Monocytes (%) (Auto) 7.5, Eosinophils (%) (Auto) 1.4, Basophils (%) (Auto) 1.1 04/14/17 04:00: White Blood Count 11.5H, Red Blood Count 3.15L, Hemoglobin 9.6L, Hematocrit 28.0L, Mean Corpuscular Volume 89, Mean Corpuscular Hemoglobin 30.6, Mean Corpuscular Hemoglobin Concent 34.5, Red Cell Distribution Width 13.2, Platelet Count 188, Mean Platelet Volume 6.3L, Neutrophils (%) (Auto) 76.9H, Lymphocytes (%) (Auto) 11.2L, Monocytes (%) (Auto) 8.5, Eosinophils (%) (Auto) 2.6, Basophils (%) (Auto) 0.9 Height (Feet): 5 Weight (Pounds): 121 Objective GENERAL: The patient is a well-developed thin female, in no apparent distress, on the vent. She is arousable. NECK: Supple. Trachea is midline. There is no discharge. HEART: Regular rate and rhythm. LUNGS: Clear. ABDOMEN: Soft, nontender, and nondistended. EXTREMITIES: Without clubbing, cyanosis, or edema. CHRISTINA HAMMOND Apr 14, 2017 10:35
--- NOTE | 2017-04-14 11:15 | General Progress Note ---
Assessment/Plan Problem List: (1) Malfunction of gastrostomy tube ICD Codes: K94.23 - Gastrostomy malfunction SNOMED: 365035473 (2) Lung nodule seen on imaging study ICD Codes: R91.1 - Solitary pulmonary nodule SNOMED: 188004614 (3) Tongue malignant neoplasm ICD Codes: C02.9 - Malignant neoplasm of tongue, unspecified SNOMED: 856227347 (4) Acute GI hemorrhage ICD Codes: K92.2 - Gastrointestinal hemorrhage, unspecified SNOMED: 03280460 Assessment/Plan neg bleeding scan fu H&H GTF on hold per nurses green stool today Subjective ROS Limited/Unobtainable: No Allergies: Coded Allergies: PENICILLINS (Verified Allergy, Unknown, 07/31/16) Objective Last 24 Hour Vital Signs Date Time Temp Pulse Resp B/P (MAP) Pulse Ox O2 Delivery O2 Flow Rate FiO2 04/14/17 10:00 84 23 118/46 100 Mechanical Ventilator 35 04/14/17 09:26 96 14 100 Mechanical Ventilator 30 04/14/17 09:21 30 04/14/17 09:20 84 24 100 Mechanical Ventilator 30 04/14/17 09:16 84 23 30 04/14/17 09:00 87 23 113/49 100 Mechanical Ventilator 35 04/14/17 08:25 87 04/14/17 08:00 85 04/14/17 08:00 97.8 86 23 115/48 100 Mechanical Ventilator 35 04/14/17 08:00 35 04/14/17 07:00 89 26 30 04/14/17 07:00 84 25 122/46 100 Mechanical Ventilator 35 04/14/17 06:00 86 23 119/51 100 Mechanical Ventilator 35 04/14/17 05:15 86 27 30 04/14/17 05:00 85 26 121/47 100 Mechanical Ventilator 35 04/14/17 04:00 35 04/14/17 04:00 98.5 85 25 118/47 100 Mechanical Ventilator 35 04/14/17 04:00 86 04/14/17 03:12 87 21 30 04/14/17 03:00 89 22 118/47 100 Mechanical Ventilator 35 04/14/17 02:00 85 24 120/49 100 Mechanical Ventilator 35 04/14/17 01:08 86 20 30 04/14/17 01:00 93 28 122/50 100 Mechanical Ventilator 35 04/14/17 00:00 35 04/14/17 00:00 90 04/14/17 00:00 97.5 97 24 122/43 100 Mechanical Ventilator 35 04/13/17 23:00 96.7 86 24 124/44 100 Mechanical Ventilator 35 04/13/17 22:54 85 25 30 04/13/17 22:00 88 26 124/48 100 Mechanical Ventilator 35 04/13/17 21:36 88 28 100 Mechanical Ventilator 30 04/13/17 21:22 87 29 100 Mechanical Ventilator 30 04/13/17 21:22 30 04/13/17 21:21 87 29 30 04/13/17 21:00 91 28 127/48 100 Mechanical Ventilator 35 04/13/17 20:00 98.6 84 27 127/50 100 Mechanical Ventilator 35 04/13/17 20:00 35 04/13/17 19:26 86 04/13/17 19:04 84 27 137/50 100 Mechanical Ventilator 35 04/13/17 18:57 82 24 30 04/13/17 18:00 85 23 117/45 100 Mechanical Ventilator 35 04/13/17 17:25 83 22 30 04/13/17 17:00 81 20 117/45 100 Mechanical Ventilator 35 04/13/17 16:00 97.6 82 19 117/51 100 Mechanical Ventilator 35 04/13/17 16:00 35 04/13/17 16:00 81 04/13/17 15:29 88 21 30 04/13/17 15:00 83 21 115/45 100 Mechanical Ventilator 35 04/13/17 13:00 80 21 122/41 100 Mechanical Ventilator 35 04/13/17 12:47 89 21 30 04/13/17 12:00 88 04/13/17 12:00 35 04/13/17 12:00 97.9 84 18 115/45 100 Mechanical Ventilator 35 04/13/17 11:15 86 21 124/42 100 Mechanical Ventilator 35 Intake and Output 04/14/17 04/15/17 19:00 07:00 Intake Total 300 ml Balance 300 ml IV Total 300 ml Laboratory Tests 04/13/17 16:45: White Blood Count 13.4H, Red Blood Count 3.53L, Hemoglobin 10.3L, Hematocrit 31.9L, Mean Corpuscular Volume 90, Mean Corpuscular Hemoglobin 29.0, Mean Corpuscular Hemoglobin Concent 32.2, Red Cell Distribution Width 12.8, Platelet Count 178, Mean Platelet Volume 6.1L, Neutrophils (%) (Auto) 81.0H, Lymphocytes (%) (Auto) 9.0L, Monocytes (%) (Auto) 7.5, Eosinophils (%) (Auto) 1.4, Basophils (%) (Auto) 1.1 04/14/17 04:00: White Blood Count 11.5H, Red Blood Count 3.15L, Hemoglobin 9.6L, Hematocrit 28.0L, Mean Corpuscular Volume 89, Mean Corpuscular Hemoglobin 30.6, Mean Corpuscular Hemoglobin Concent 34.5, Red Cell Distribution Width 13.2, Platelet Count 188, Mean Platelet Volume 6.3L, Neutrophils (%) (Auto) 76.9H, Lymphocytes (%) (Auto) 11.2L, Monocytes (%) (Auto) 8.5, Eosinophils (%) (Auto) 2.6, Basophils (%) (Auto) 0.9 Height (Feet): 5 Weight (Pounds): 121 General Appearance: lethargic EENT: normal ENT inspection Neck: supple Cardiovascular: normal rate Respiratory/Chest: decreased breath sounds Abdomen: normal bowel sounds, non tender, soft Extremities: non-tender SALVADOR VELASQUEZ Apr 14, 2017 11:15
--- NOTE | 2017-04-14 11:57 | Infectious Diseases Prog Note ---
Assessment/Plan Assessment/Plan antibiotics : inhaled amikacin A 1. pseudomonas pneumonia 2. respiratory failure 3. leucocytosis improving 4. MRSA nasal colonization 5. head and neck cancer P 1. continue inhaled amikacin 3 more days 2. will follow up cultures Subjective ROS Limited/Unobtainable: Yes Allergies: Coded Allergies: PENICILLINS (Verified Allergy, Unknown, 07/31/16) Objective Vital Signs Last 24 Hour Vital Signs Date Time Temp Pulse Resp B/P (MAP) Pulse Ox O2 Delivery O2 Flow Rate FiO2 04/14/17 11:00 84 22 123/49 97 Mechanical Ventilator 35 04/14/17 11:00 82 24 30 04/14/17 10:00 84 23 118/46 100 Mechanical Ventilator 35 04/14/17 09:26 96 14 100 Mechanical Ventilator 30 04/14/17 09:21 30 04/14/17 09:20 84 24 100 Mechanical Ventilator 30 04/14/17 09:16 84 23 30 04/14/17 09:00 87 23 113/49 100 Mechanical Ventilator 35 04/14/17 08:25 87 04/14/17 08:00 85 04/14/17 08:00 97.8 86 23 115/48 100 Mechanical Ventilator 35 04/14/17 08:00 35 04/14/17 07:00 89 26 30 04/14/17 07:00 84 25 122/46 100 Mechanical Ventilator 35 04/14/17 06:00 86 23 119/51 100 Mechanical Ventilator 35 04/14/17 05:15 86 27 30 04/14/17 05:00 85 26 121/47 100 Mechanical Ventilator 35 04/14/17 04:00 35 04/14/17 04:00 98.5 85 25 118/47 100 Mechanical Ventilator 35 04/14/17 04:00 86 04/14/17 03:12 87 21 30 04/14/17 03:00 89 22 118/47 100 Mechanical Ventilator 35 04/14/17 02:00 85 24 120/49 100 Mechanical Ventilator 35 04/14/17 01:08 86 20 30 04/14/17 01:00 93 28 122/50 100 Mechanical Ventilator 35 04/14/17 00:00 35 04/14/17 00:00 90 04/14/17 00:00 97.5 97 24 122/43 100 Mechanical Ventilator 35 04/13/17 23:00 96.7 86 24 124/44 100 Mechanical Ventilator 35 04/13/17 22:54 85 25 30 04/13/17 22:00 88 26 124/48 100 Mechanical Ventilator 35 04/13/17 21:36 88 28 100 Mechanical Ventilator 30 04/13/17 21:22 87 29 100 Mechanical Ventilator 30 04/13/17 21:22 30 04/13/17 21:21 87 29 30 04/13/17 21:00 91 28 127/48 100 Mechanical Ventilator 35 04/13/17 20:00 98.6 84 27 127/50 100 Mechanical Ventilator 35 04/13/17 20:00 35 04/13/17 19:26 86 04/13/17 19:04 84 27 137/50 100 Mechanical Ventilator 35 04/13/17 18:57 82 24 30 04/13/17 18:00 85 23 117/45 100 Mechanical Ventilator 35 04/13/17 17:25 83 22 30 04/13/17 17:00 81 20 117/45 100 Mechanical Ventilator 35 04/13/17 16:00 97.6 82 19 117/51 100 Mechanical Ventilator 35 04/13/17 16:00 35 04/13/17 16:00 81 04/13/17 15:29 88 21 30 04/13/17 15:00 83 21 115/45 100 Mechanical Ventilator 35 04/13/17 13:00 80 21 122/41 100 Mechanical Ventilator 35 04/13/17 12:47 89 21 30 04/13/17 12:00 88 04/13/17 12:00 35 04/13/17 12:00 97.9 84 18 115/45 100 Mechanical Ventilator 35 Height (Feet): 5 Weight (Pounds): 121 HEENT: status post trach Respiratory/Chest: lungs clear Cardiovascular: normal rate, regular rhythm, no gallop/murmur Abdomen: soft, non tender, other - GT Extremities: no edema, other - right arm PICC Laboratory Tests Test 04/13/17 16:45 04/14/17 04:00 White Blood Count 13.4 K/UL (4.8-10.8) H 11.5 K/UL (4.8-10.8) H Red Blood Count 3.53 M/UL (4.20-5.40) L 3.15 M/UL (4.20-5.40) L Hemoglobin 10.3 G/DL (12.0-16.0) L 9.6 G/DL (12.0-16.0) L Hematocrit 31.9 % (37.0-47.0) L 28.0 % (37.0-47.0) L Mean Corpuscular Volume 90 FL (80-99) 89 FL (80-99) Mean Corpuscular Hemoglobin 29.0 PG (27.0-31.0) 30.6 PG (27.0-31.0) Mean Corpuscular Hemoglobin Concent 32.2 G/DL (32.0-36.0) 34.5 G/DL (32.0-36.0) Red Cell Distribution Width 12.8 % (11.6-14.8) 13.2 % (11.6-14.8) Platelet Count 178 K/UL (150-450) 188 K/UL (150-450) Mean Platelet Volume 6.1 FL (6.5-10.1) L 6.3 FL (6.5-10.1) L Neutrophils (%) (Auto) 81.0 % (45.0-75.0) H 76.9 % (45.0-75.0) H Lymphocytes (%) (Auto) 9.0 % (20.0-45.0) L 11.2 % (20.0-45.0) L Monocytes (%) (Auto) 7.5 % (1.0-10.0) 8.5 % (1.0-10.0) Eosinophils (%) (Auto) 1.4 % (0.0-3.0) 2.6 % (0.0-3.0) Basophils (%) (Auto) 1.1 % (0.0-2.0) 0.9 % (0.0-2.0) MARA BLOCK Apr 14, 2017 11:57
[2017-04-14] MEDS: Dyna-Hex 2% Top Sol 2oz TOPIC SCH (20:35)
[2017-04-15] VITALS: BP 134/76
[2017-04-15] MEDS: Sucralfate 1gm tab GT SCH ×4 (00:38→17:59)
[2017-04-15 04:00] VITALS: BP 135/69
--- NOTE | 2017-04-15 06:51 | General Progress Note ---
Assessment/Plan Problem List: (1) Malfunction of gastrostomy tube ICD Codes: K94.23 - Gastrostomy malfunction SNOMED: 862001508 (2) Lung nodule seen on imaging study ICD Codes: R91.1 - Solitary pulmonary nodule SNOMED: 671462250 (3) Tongue malignant neoplasm ICD Codes: C02.9 - Malignant neoplasm of tongue, unspecified SNOMED: 859610096 (4) Acute GI hemorrhage ICD Codes: K92.2 - Gastrointestinal hemorrhage, unspecified SNOMED: 09265498 Assessment/Plan neg bleeding scan fu H&H GTF started ppi Subjective ROS Limited/Unobtainable: No Allergies: Coded Allergies: PENICILLINS (Verified Allergy, Unknown, 07/31/16) Objective Last 24 Hour Vital Signs Date Time Temp Pulse Resp B/P (MAP) Pulse Ox O2 Delivery O2 Flow Rate FiO2 04/15/17 05:30 95 30 30 04/15/17 04:00 97.7 94 24 135/69 100 Mechanical Ventilator 30 04/15/17 04:00 35 04/15/17 04:00 100 04/15/17 02:58 88 23 30 04/15/17 00:58 91 20 30 04/15/17 00:00 99 04/15/17 00:00 97.9 94 18 134/76 100 Mechanical Ventilator 35 04/15/17 00:00 35 04/14/17 23:21 91 26 30 04/14/17 21:40 90 18 100 Mechanical Ventilator 30 04/14/17 21:28 96 28 100 Mechanical Ventilator 30 04/14/17 21:28 30 04/14/17 21:27 96 28 30 04/14/17 20:00 35 04/14/17 20:00 94 04/14/17 20:00 97.7 113 18 136/87 100 Mechanical Ventilator 35 04/14/17 18:55 95 25 30 04/14/17 18:00 93 22 128/56 100 Mechanical Ventilator 35 04/14/17 17:00 112 22 120/67 100 Mechanical Ventilator 35 04/14/17 17:00 109 28 30 04/14/17 16:00 35 04/14/17 16:00 87 04/14/17 16:00 98.2 90 21 119/45 100 Mechanical Ventilator 35 04/14/17 15:00 85 22 117/56 100 Mechanical Ventilator 35 04/14/17 14:44 82 21 30 04/14/17 14:00 82 22 125/47 100 Mechanical Ventilator 35 04/14/17 13:00 80 22 125/53 100 Mechanical Ventilator 35 04/14/17 13:00 85 22 30 04/14/17 12:00 98.4 86 21 119/56 100 Mechanical Ventilator 35 04/14/17 12:00 35 04/14/17 12:00 83 04/14/17 11:00 84 22 123/49 97 Mechanical Ventilator 35 04/14/17 11:00 82 24 30 04/14/17 10:00 84 23 118/46 100 Mechanical Ventilator 35 04/14/17 09:26 96 14 100 Mechanical Ventilator 30 04/14/17 09:21 30 04/14/17 09:20 84 24 100 Mechanical Ventilator 30 04/14/17 09:16 84 23 30 04/14/17 09:00 87 23 113/49 100 Mechanical Ventilator 35 04/14/17 08:25 87 04/14/17 08:00 85 04/14/17 08:00 97.8 86 23 115/48 100 Mechanical Ventilator 35 04/14/17 08:00 35 04/14/17 07:00 89 26 30 04/14/17 07:00 84 25 122/46 100 Mechanical Ventilator 35 Height (Feet): 5 Weight (Pounds): 122 General Appearance: no apparent distress EENT: normal ENT inspection Neck: supple Cardiovascular: normal rate Respiratory/Chest: decreased breath sounds Abdomen: normal bowel sounds, non tender, soft Extremities: non-tender SALVADOR VELASQUEZ Apr 15, 2017 06:51
[2017-04-15 08:00] VITALS: BP 131/72
--- NOTE | 2017-04-15 08:30 | Infectious Diseases Prog Note ---
Assessment/Plan Assessment/Plan A: 1. pseudomonas pneumonia 2. respiratory failure 3. leucocytosis improving 4. MRSA nasal colonization 5. head and neck cancer 6. GI bleeding P 1. continue inhaled Amikacin 2 more days 2. will follow up cultures Subjective ROS Limited/Unobtainable: Yes Allergies: Coded Allergies: PENICILLINS (Verified Allergy, Unknown, 07/31/16) Objective Vital Signs Last 24 Hour Vital Signs Date Time Temp Pulse Resp B/P (MAP) Pulse Ox O2 Delivery O2 Flow Rate FiO2 04/15/17 06:50 84 26 30 04/15/17 05:30 95 30 30 04/15/17 04:00 97.7 94 24 135/69 100 Mechanical Ventilator 30 04/15/17 04:00 35 04/15/17 04:00 100 04/15/17 02:58 88 23 30 04/15/17 00:58 91 20 30 04/15/17 00:00 99 04/15/17 00:00 97.9 94 18 134/76 100 Mechanical Ventilator 35 04/15/17 00:00 35 04/14/17 23:21 91 26 30 04/14/17 21:40 90 18 100 Mechanical Ventilator 30 04/14/17 21:28 96 28 100 Mechanical Ventilator 30 04/14/17 21:28 30 04/14/17 21:27 96 28 30 04/14/17 20:00 35 04/14/17 20:00 94 04/14/17 20:00 97.7 113 18 136/87 100 Mechanical Ventilator 35 04/14/17 18:55 95 25 30 04/14/17 18:00 93 22 128/56 100 Mechanical Ventilator 35 04/14/17 17:00 112 22 120/67 100 Mechanical Ventilator 35 04/14/17 17:00 109 28 30 04/14/17 16:00 35 04/14/17 16:00 87 04/14/17 16:00 98.2 90 21 119/45 100 Mechanical Ventilator 35 04/14/17 15:00 85 22 117/56 100 Mechanical Ventilator 35 04/14/17 14:44 82 21 30 04/14/17 14:00 82 22 125/47 100 Mechanical Ventilator 35 04/14/17 13:00 80 22 125/53 100 Mechanical Ventilator 35 04/14/17 13:00 85 22 30 04/14/17 12:00 98.4 86 21 119/56 100 Mechanical Ventilator 35 04/14/17 12:00 35 04/14/17 12:00 83 04/14/17 11:00 84 22 123/49 97 Mechanical Ventilator 35 04/14/17 11:00 82 24 30 04/14/17 10:00 84 23 118/46 100 Mechanical Ventilator 35 04/14/17 09:26 96 14 100 Mechanical Ventilator 30 04/14/17 09:21 30 04/14/17 09:20 84 24 100 Mechanical Ventilator 30 04/14/17 09:16 84 23 30 04/14/17 09:00 87 23 113/49 100 Mechanical Ventilator 35 Height (Feet): 5 Weight (Pounds): 122 General Appearance: no acute distress HEENT: status post trach Respiratory/Chest: rhonchi - bilaterally, other - on ventilator Cardiovascular: normal rate Abdomen: soft, non tender, other - GT feeding Extremities: no edema, other - R arm PICC line Neurologic/Psychiatric: alert, responsive Current Medications Medications (Trade) Dose Ordered Sig/Josiah Route PRN Reason Start Time Stop Time Status Last Admin Dose Admin Amikacin Sulfate (Amikin) 500 mg Q12HR@10,22 INH 04/14/17 22:00 04/18/17 21:59 04/14/17 21:28 Amitriptyline HCl (Elavil) 10 mg BEDTIME GT 04/14/17 21:00 05/08/17 20:59 04/14/17 20:35 Chlorhexidine Gluconate (Cathy-Hex 2%) 1 applic DAILY@1999 TOPIC 04/14/17 20:00 05/12/17 19:59 04/14/17 20:35 Digoxin (Lanoxin) 0.125 mg DAILY GT 04/15/17 09:00 05/08/17 08:59 Levetiracetam (Keppra) 500 mg BID@0900,2100 GT 04/14/17 21:00 05/12/17 08:59 04/14/17 20:34 Levothyroxine Sodium (Synthroid) 150 mcg ACBREAKFAST GT 04/15/17 06:30 05/08/17 06:29 04/15/17 05:14 Midodrine (Pro-Amatine) 10 mg THREE TIMES A DAY GT 04/15/17 09:00 05/08/17 08:59 Multivitamins (Multivitamins W/ Minerals 15ml Liquid) 15 ml DAILY GT 04/15/17 09:00 05/08/17 08:59 Pantoprazole (Protonix) 40 mg Q12HR IVP 04/14/17 21:00 05/08/17 20:59 04/14/17 20:35 Sodium Chloride 1,000 ml @ 100 mls/hr Q10H IV 04/14/17 19:00 05/08/17 01:59 04/15/17 05:14 Sucralfate (Carafate) 1 gm EVERY 6 HOURS GT 04/15/17 00:00 05/12/17 00:00 04/15/17 05:14 JENNIFER MCKEE Apr 15, 2017 08:30
[2017-04-15] MEDS: Pantoprazole Inj IVP SCH ×2 (08:59→20:34)
[2017-04-15] MEDS: Digoxin Elixir 0.125mg GT SCH (09:00)
[2017-04-15] MEDS: Multivitamins W/Minerals 15 ML UDC GT SCH (09:00)
[2017-04-15] MEDS: levETIRAcetam 500mg/5ml Liquid GT SCH ×2 (09:01→20:34)
[2017-04-15] MEDS: Midodrine 10mg tab GT SCH ×3 (09:02→17:59)
--- NOTE | 2017-04-15 09:29 | General Progress Note ---
Assessment/Plan Problem List: (1) new onset of generalised seizure activity (2) Acute GI hemorrhage ICD Codes: K92.2 - Gastrointestinal hemorrhage, unspecified SNOMED: 67497543 (3) Tongue malignant neoplasm ICD Codes: C02.9 - Malignant neoplasm of tongue, unspecified SNOMED: 866771051 (4) Lung nodule seen on imaging study ICD Codes: R91.1 - Solitary pulmonary nodule SNOMED: 922004326 Status: stable, progressing Assessment/Plan serial cbc ppi transfuse prn monitor for further bleeding vent resp rx suctioning abx Subjective ROS Limited/Unobtainable: No Constitutional: Reports: malaise, weakness HEENT: Reports: no symptoms Cardiovascular: Reports: no symptoms Respiratory: Reports: cough Gastrointestinal/Abdominal: Reports: difficulty swallowing, rectal bleeding Genitourinary: Reports: no symptoms Neurologic/Psychiatric: Reports: no symptoms Endocrine: Reports: no symptoms Hematologic/Lymphatic: Reports: anemia Allergies: Coded Allergies: PENICILLINS (Verified Allergy, Unknown, 07/31/16) All Systems: reviewed and negative except above Subjective stable on the vent. alert. follows simple commands. no bleeding noted. bleeding scan negative Objective Last 24 Hour Vital Signs Date Time Temp Pulse Resp B/P (MAP) Pulse Ox O2 Delivery O2 Flow Rate FiO2 04/15/17 09:00 98 04/15/17 09:00 95 26 30 04/15/17 06:50 84 26 30 04/15/17 05:30 95 30 30 04/15/17 04:00 97.7 94 24 135/69 100 Mechanical Ventilator 30 04/15/17 04:00 35 04/15/17 04:00 100 04/15/17 02:58 88 23 30 04/15/17 00:58 91 20 30 04/15/17 00:00 99 04/15/17 00:00 97.9 94 18 134/76 100 Mechanical Ventilator 35 04/15/17 00:00 35 04/14/17 23:21 91 26 30 04/14/17 21:40 90 18 100 Mechanical Ventilator 30 04/14/17 21:28 96 28 100 Mechanical Ventilator 30 04/14/17 21:28 30 04/14/17 21:27 96 28 30 04/14/17 20:00 35 04/14/17 20:00 94 04/14/17 20:00 97.7 113 18 136/87 100 Mechanical Ventilator 35 04/14/17 18:55 95 25 30 04/14/17 18:00 93 22 128/56 100 Mechanical Ventilator 35 04/14/17 17:00 112 22 120/67 100 Mechanical Ventilator 35 04/14/17 17:00 109 28 30 04/14/17 16:00 35 04/14/17 16:00 87 04/14/17 16:00 98.2 90 21 119/45 100 Mechanical Ventilator 35 04/14/17 15:00 85 22 117/56 100 Mechanical Ventilator 35 04/14/17 14:44 82 21 30 04/14/17 14:00 82 22 125/47 100 Mechanical Ventilator 35 04/14/17 13:00 80 22 125/53 100 Mechanical Ventilator 35 04/14/17 13:00 85 22 30 04/14/17 12:00 98.4 86 21 119/56 100 Mechanical Ventilator 35 04/14/17 12:00 35 04/14/17 12:00 83 04/14/17 11:00 84 22 123/49 97 Mechanical Ventilator 35 04/14/17 11:00 82 24 30 04/14/17 10:00 84 23 118/46 100 Mechanical Ventilator 35 Height (Feet): 5 Weight (Pounds): 122 Objective GENERAL: The patient is a well-developed thin female, in no apparent distress, on the vent. She is arousable. NECK: Supple. Trachea is midline. There is no discharge. HEART: Regular rate and rhythm. LUNGS: Clear. ABDOMEN: Soft, nontender, and nondistended. EXTREMITIES: Without clubbing, cyanosis, or edema. CHRISTINA HAMMOND Apr 15, 2017 09:29
[2017-04-15] MEDS: Amikacin for Inhalation 2ML INH SCH ×2 (09:37→21:27)
[2017-04-15 12:00] VITALS: BP 145/68
[2017-04-15 13:31] LABS: BASOPHILS % (AUTO) 0.7 % (0.0-2.0); EOSINOPHILS % (AUTO) 2.2 % (0.0-3.0); LYMPHOCYTES % (AUTO) 5.5 % (20.0-45.0); MEAN CORPUSCULAR HEMOGLOBIN 29.7 PG (27.0-31.0); MEAN CORPUSCULAR HGB CONC 32.9 G/DL (32.0-36.0); MEAN CORPUSCULAR VOLUME 90 FL (80-99); MEAN PLATELET VOLUME 6.4 FL (6.5-10.1); NEUTROPHILS % (AUTO) 81.5 % (45.0-75.0); PLATELET COUNT 242 K/UL (150-450); RED BLOOD COUNT 3.73 M/UL (4.20-5.40); RED CELL DISTRIBUTION WIDTH 13.5 % (11.6-14.8); WHITE BLOOD COUNT 11.2 K/UL (4.8-10.8)
--- NOTE | 2017-04-15 15:30 | Progress Note ---
DATE: 04/14/2017 CARDIOLOGY PROGRESS NOTE Late entry for 04/14/2017. SUBJECTIVE: The patient was seen and evaluated in the intensive care unit. She is awaiting transfer for embolization therapy. She has not had any new signs of bleeding and has not required a transfusion in the past several days. She remains alert on ventilator support. OBJECTIVE: VITAL SIGNS: Blood pressure 118/46, pulse 84, and respirations 23. Monitored rhythm sinus. HEENT: Trach site with no bleeding at this time. LUNGS: With bilateral breath sounds. No wheezes. CARDIAC: Regular rhythm and rate. Normal S1 and S2 with no murmur. ABDOMEN: Soft. G-tube intact. EXTREMITIES: There is no edema. LABORATORY DATA: White count 11.5 and hemoglobin 9.6. IMPRESSION: 1. Head and neck cancer. 2. Respiratory failure. 3. Paroxysmal atrial fibrillation. 4. Paroxysmal supraventricular tachycardia. 5. Gastrointestinal bleeding. 6. Anemia status post transfusion. 7. Chronic diastolic congestive heart failure. 8. Autonomic dysfunction with chronic hypotension on midodrine. PLAN: 1. Transfer to [facility]. 2. Await transfer to [facility] for embolization efforts. 3. Continue monitoring hemoglobin and transfuse as needed. 4. Maintain current cardiovascular regimen without change including digoxin for prophylaxis against rapid atrial fibrillation. Chi Bhatti M.D. DR: DAVID JOB#: [id number] CC:
--- NOTE | 2017-04-15 15:45 | Progress Note ---
DATE: 04/15/2017 CARDIOLOGY PROGRESS NOTE SUBJECTIVE: The patient remains without new signs of bleeding. She is on ventilator support. OBJECTIVE: VITAL SIGNS: Blood pressure 135/69, pulse 94, respiratory rate 24, and afebrile. Monitored rhythm sinus. HEENT: Trach site with no bleeding. LUNGS: With bilateral breath sounds and no wheezes. CARDIAC: Regular rhythm and rate. Normal S1 and S2 with no murmur. ABDOMEN: Soft. G-tube intact. No edema. LABORATORY AND DIAGNOSTIC DATA: Lab pending. IMPRESSION: 1. Recurring gastrointestinal bleeding, presently controlled. 2. Anemia due to gastrointestinal bleeding. Status post transfusions. 3. Paroxysmal supraventricular tachycardia, paroxysmal atrial fibrillation. 4. Chronic diastolic congestive heart failure. 5. Autonomic dysfunction with chronic hypotension. 6. Metastatic head and neck cancer. 7. Chronic respiratory failure. PLAN: 1. Monitor hemoglobin. 2. Continue digoxin. 3. Observe for recurring bleeding. 4. Transfuse based on clinical parameters. Chi Bhatti M.D. DR: MYRNA JOB#: [id number] CC:
[2017-04-15] MEDS ORDERED: Sterile Water Irrig 1000ml IRRIG ONE (15:53)
[2017-04-15 16:00] VITALS: BP 139/70
[2017-04-15 20:00] VITALS: BP 137/73
[2017-04-15] MEDS: Dyna-Hex 2% Top Sol 2oz TOPIC SCH (20:33)
[2017-04-16] VITALS (9 sets, daily range): BP systolic 90–138; BP diastolic 43–87
[2017-04-16] MEDS: Sucralfate 1gm tab GT SCH ×4 (00:29→17:20)
[2017-04-16 05:58] LABS: BASOPHILS % (AUTO) 0.7 % (0.0-2.0); EOSINOPHILS % (AUTO) 2.1 % (0.0-3.0); LYMPHOCYTES % (AUTO) 9.5 % (20.0-45.0); MEAN CORPUSCULAR HEMOGLOBIN 30.4 PG (27.0-31.0); MEAN CORPUSCULAR HGB CONC 33.8 G/DL (32.0-36.0); MEAN CORPUSCULAR VOLUME 90 FL (80-99); MEAN PLATELET VOLUME 6.1 FL (6.5-10.1); MONOCYTES % (AUTO) 10.3 % (1.0-10.0); NEUTROPHILS % (AUTO) 77.5 % (45.0-75.0); PLATELET COUNT 233 K/UL (150-450); RED BLOOD COUNT 3.53 M/UL (4.20-5.40); RED CELL DISTRIBUTION WIDTH 13.2 % (11.6-14.8); WHITE BLOOD COUNT 12.5 K/UL (4.8-10.8)
--- NOTE | 2017-04-16 08:38 | General Progress Note ---
Assessment/Plan Problem List: (1) new onset of generalised seizure activity (2) Acute GI hemorrhage ICD Codes: K92.2 - Gastrointestinal hemorrhage, unspecified SNOMED: 07671807 (3) Tongue malignant neoplasm ICD Codes: C02.9 - Malignant neoplasm of tongue, unspecified SNOMED: 790197459 (4) Lung nodule seen on imaging study ICD Codes: R91.1 - Solitary pulmonary nodule SNOMED: 172704983 Status: stable, progressing Assessment/Plan serial cbc ppi transfuse prn monitor for further bleeding vent resp rx suctioning abx dc planning if cleared by gi and id- ? tomorrow Subjective ROS Limited/Unobtainable: No Constitutional: Reports: malaise, weakness HEENT: Reports: no symptoms Cardiovascular: Reports: no symptoms Respiratory: Reports: no symptoms Gastrointestinal/Abdominal: Reports: difficulty swallowing Genitourinary: Reports: no symptoms Neurologic/Psychiatric: Reports: no symptoms Endocrine: Reports: no symptoms Hematologic/Lymphatic: Reports: anemia Allergies: Coded Allergies: PENICILLINS (Verified Allergy, Unknown, 07/31/16) All Systems: reviewed and negative except above Subjective stable on the vent. alert. follows simple commands. no bleeding noted. bleeding scan negative. +brpwn stool Objective Last 24 Hour Vital Signs Date Time Temp Pulse Resp B/P (MAP) Pulse Ox O2 Delivery O2 Flow Rate FiO2 04/16/17 08:00 35 04/16/17 06:44 90 31 30 04/16/17 05:29 89 28 30 04/16/17 04:00 35 04/16/17 04:00 97.3 90 14 129/66 100 Mechanical Ventilator 90 04/16/17 03:39 91 25 30 04/16/17 03:00 85 04/16/17 01:08 84 31 30 04/16/17 00:00 97.5 84 16 138/72 100 Mechanical Ventilator 84 04/16/17 00:00 35 04/16/17 00:00 90 04/15/17 23:35 82 28 30 04/15/17 22:14 95 19 100 Mechanical Ventilator 30 04/15/17 21:27 89 26 100 Mechanical Ventilator 30 04/15/17 21:27 30 04/15/17 21:15 87 22 30 04/15/17 20:00 35 04/15/17 20:00 98.1 84 18 137/73 100 Mechanical Ventilator 84 04/15/17 20:00 80 04/15/17 19:25 97 23 30 04/15/17 17:02 96 22 30 04/15/17 16:05 102 22 30 04/15/17 16:00 97.7 91 22 139/70 100 Mechanical Ventilator 30 04/15/17 16:00 35 04/15/17 16:00 88 04/15/17 14:24 105 24 30 04/15/17 12:00 108 04/15/17 12:00 35 04/15/17 12:00 98.2 109 28 145/68 99 Mechanical Ventilator 30 04/15/17 11:00 108 31 30 04/15/17 09:39 30 04/15/17 09:39 98 19 100 Mechanical Ventilator 30 04/15/17 09:38 96 26 100 Mechanical Ventilator 30 04/15/17 09:00 98 04/15/17 09:00 95 26 30 Laboratory Tests 04/15/17 13:12: White Blood Count 11.2H, Red Blood Count 3.73L, Hemoglobin 11.1L, Hematocrit 33.7L, Mean Corpuscular Volume 90, Mean Corpuscular Hemoglobin 29.7, Mean Corpuscular Hemoglobin Concent 32.9, Red Cell Distribution Width 13.5, Platelet Count 242, Mean Platelet Volume 6.4L, Neutrophils (%) (Auto) 81.5H, Lymphocytes (%) (Auto) 5.5L, Monocytes (%) (Auto) 10.0, Eosinophils (%) (Auto) 2.2, Basophils (%) (Auto) 0.7 04/16/17 04:00: White Blood Count 12.5H, Red Blood Count 3.53L, Hemoglobin 10.8L, Hematocrit 31.8L, Mean Corpuscular Volume 90, Mean Corpuscular Hemoglobin 30.4, Mean Corpuscular Hemoglobin Concent 33.8, Red Cell Distribution Width 13.2, Platelet Count 233, Mean Platelet Volume 6.1L, Neutrophils (%) (Auto) 77.5H, Lymphocytes (%) (Auto) 9.5L, Monocytes (%) (Auto) 10.3H, Eosinophils (%) (Auto) 2.1, Basophils (%) (Auto) 0.7 Height (Feet): 5 Weight (Pounds): 123 Objective GENERAL: The patient is a well-developed thin female, in no apparent distress, on the vent. She is arousable. NECK: Supple. Trachea is midline. There is no discharge. HEART: Regular rate and rhythm. LUNGS: Clear. ABDOMEN: Soft, nontender, and nondistended. EXTREMITIES: Without clubbing, cyanosis, or edema. CHRISTINA HAMMOND Apr 16, 2017 08:38
[2017-04-16] MEDS: Pantoprazole Inj IVP SCH (08:52)
[2017-04-16] MEDS: Digoxin Elixir 0.125mg GT SCH (08:54)
[2017-04-16] MEDS: Multivitamins W/Minerals 15 ML UDC GT SCH (08:54)
[2017-04-16] MEDS: Midodrine 10mg tab GT SCH ×3 (08:54→17:20)
[2017-04-16] MEDS: levETIRAcetam 500mg/5ml Liquid GT SCH ×2 (08:54→21:00)
[2017-04-16] MEDS: Amikacin for Inhalation 2ML INH SCH (08:59)
--- NOTE | 2017-04-16 10:00 | Infectious Diseases Prog Note ---
Assessment/Plan Assessment/Plan A: 1. pseudomonas pneumonia 2. respiratory failure 3. leucocytosis improving 4. MRSA nasal colonization 5. head and neck cancer 6. GI bleeding P 1. continue inhaled Amikacin 1 more days 2. will follow up cultures Subjective ROS Limited/Unobtainable: Yes Allergies: Coded Allergies: PENICILLINS (Verified Allergy, Unknown, 07/31/16) Objective Vital Signs Last 24 Hour Vital Signs Date Time Temp Pulse Resp B/P (MAP) Pulse Ox O2 Delivery O2 Flow Rate FiO2 04/16/17 09:02 100 18 100 Mechanical Ventilator 30 04/16/17 09:00 100 16 30 04/16/17 08:54 101 04/16/17 08:50 30 04/16/17 08:50 100 18 100 Mechanical Ventilator 30 04/16/17 08:00 35 04/16/17 08:00 92 04/16/17 08:00 98.4 101 22 136/60 99 Mechanical Ventilator 90 04/16/17 06:44 90 31 30 04/16/17 05:29 89 28 30 04/16/17 04:00 35 04/16/17 04:00 97.3 90 14 129/66 100 Mechanical Ventilator 90 04/16/17 03:39 91 25 30 04/16/17 03:00 85 04/16/17 01:08 84 31 30 04/16/17 00:00 97.5 84 16 138/72 100 Mechanical Ventilator 84 04/16/17 00:00 35 04/16/17 00:00 90 04/15/17 23:35 82 28 30 04/15/17 22:14 95 19 100 Mechanical Ventilator 30 04/15/17 21:27 89 26 100 Mechanical Ventilator 30 04/15/17 21:27 30 04/15/17 21:15 87 22 30 04/15/17 20:00 35 04/15/17 20:00 98.1 84 18 137/73 100 Mechanical Ventilator 84 04/15/17 20:00 80 04/15/17 19:25 97 23 30 04/15/17 17:02 96 22 30 04/15/17 16:05 102 22 30 04/15/17 16:00 97.7 91 22 139/70 100 Mechanical Ventilator 30 04/15/17 16:00 35 04/15/17 16:00 88 04/15/17 14:24 105 24 30 04/15/17 12:00 108 04/15/17 12:00 35 04/15/17 12:00 98.2 109 28 145/68 99 Mechanical Ventilator 30 04/15/17 11:00 108 31 30 Height (Feet): 5 Weight (Pounds): 123 General Appearance: no acute distress HEENT: status post trach Respiratory/Chest: lungs clear, other - on ventilator Cardiovascular: tachycardia Abdomen: soft, non tender, other - GT feeding Extremities: other - right arm PICC line Neurologic/Psychiatric: alert, responsive Laboratory Tests Test 04/15/17 13:12 04/16/17 04:00 White Blood Count 11.2 K/UL (4.8-10.8) H 12.5 K/UL (4.8-10.8) H Red Blood Count 3.73 M/UL (4.20-5.40) L 3.53 M/UL (4.20-5.40) L Hemoglobin 11.1 G/DL (12.0-16.0) L 10.8 G/DL (12.0-16.0) L Hematocrit 33.7 % (37.0-47.0) L 31.8 % (37.0-47.0) L Mean Corpuscular Volume 90 FL (80-99) 90 FL (80-99) Mean Corpuscular Hemoglobin 29.7 PG (27.0-31.0) 30.4 PG (27.0-31.0) Mean Corpuscular Hemoglobin Concent 32.9 G/DL (32.0-36.0) 33.8 G/DL (32.0-36.0) Red Cell Distribution Width 13.5 % (11.6-14.8) 13.2 % (11.6-14.8) Platelet Count 242 K/UL (150-450) 233 K/UL (150-450) Mean Platelet Volume 6.4 FL (6.5-10.1) L 6.1 FL (6.5-10.1) L Neutrophils (%) (Auto) 81.5 % (45.0-75.0) H 77.5 % (45.0-75.0) H Lymphocytes (%) (Auto) 5.5 % (20.0-45.0) L 9.5 % (20.0-45.0) L Monocytes (%) (Auto) 10.0 % (1.0-10.0) 10.3 % (1.0-10.0) H Eosinophils (%) (Auto) 2.2 % (0.0-3.0) 2.1 % (0.0-3.0) Basophils (%) (Auto) 0.7 % (0.0-2.0) 0.7 % (0.0-2.0) Current Medications Medications (Trade) Dose Ordered Sig/Josiah Route PRN Reason Start Time Stop Time Status Last Admin Dose Admin Amikacin Sulfate (Amikin) 500 mg Q12HR@ INH 04/14/17 22:00 04/18/17 21:59 04/16/17 08:59 Amitriptyline HCl (Elavil) 10 mg BEDTIME GT 04/14/17 21:00 05/08/17 20:59 04/15/17 20:33 Chlorhexidine Gluconate (Cathy-Hex 2%) 1 applic DAILY@1999 TOPIC 04/14/17 20:00 05/12/17 19:59 04/15/17 20:33 Digoxin (Lanoxin) 0.125 mg DAILY GT 04/15/17 09:00 05/08/17 08:59 04/16/17 08:54 Levetiracetam (Keppra) 500 mg BID@0900,2100 GT 04/14/17 21:00 05/12/17 08:59 04/16/17 08:54 Levothyroxine Sodium (Synthroid) 150 mcg ACBREAKFAST GT 04/15/17 06:30 05/08/17 06:29 04/16/17 06:00 Midodrine (Pro-Amatine) 10 mg THREE TIMES A DAY GT 04/15/17 09:00 05/08/17 08:59 04/16/17 08:54 Multivitamins (Multivitamins W/ Minerals 15ml Liquid) 15 ml DAILY GT 04/15/17 09:00 05/08/17 08:59 04/16/17 08:54 Pantoprazole (Protonix) 40 mg Q12HR IVP 04/14/17 21:00 05/08/17 20:59 04/16/17 08:52 Sodium Chloride 1,000 ml @ 100 mls/hr Q10H IV 04/14/17 19:00 05/08/17 01:59 04/16/17 00:30 Sucralfate (Carafate) 1 gm EVERY 6 HOURS GT 04/15/17 00:00 05/12/17 00:00 04/16/17 06:00 JENNIFER MCKEE Apr 16, 2017 10:00
--- NOTE | 2017-04-16 12:02 | Pulmonology Progress Note ---
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 GT, trach, anemia, possible GIB; s/p transfusion hypoxemia, failure to thrive PLAN no change from pulmonary standpoint respiratory care as is soft tip catheter for home use- son aware Ventilatory support as is may need higher level of care for embolization procedure supportive care as outlined and monitor for change suction with caution and monitor for bleeding no wean planned at present oxygen therapy noted care noted; gi reviewed prognosis poor avoid excessive suctioning medications/laboratory data/nursing notes reviewed in detail note reviewed and edited care discussed with RN and RT Subjective ROS Limited/Unobtainable: Yes Allergies: Coded Allergies: PENICILLINS (Verified Allergy, Unknown, 07/31/16) Subjective on the vent care noted and discussed weekend events noted Objective Last 24 Hour Vital Signs Date Time Temp Pulse Resp B/P (MAP) Pulse Ox O2 Delivery O2 Flow Rate FiO2 04/16/17 11:11 99 29 30 04/16/17 09:02 100 18 100 Mechanical Ventilator 30 04/16/17 09:00 100 16 30 04/16/17 08:54 101 04/16/17 08:50 30 04/16/17 08:50 100 18 100 Mechanical Ventilator 30 04/16/17 08:00 35 04/16/17 08:00 92 04/16/17 08:00 98.4 101 22 136/60 99 Mechanical Ventilator 90 04/16/17 06:44 90 31 30 04/16/17 05:29 89 28 30 04/16/17 04:00 35 04/16/17 04:00 97.3 90 14 129/66 100 Mechanical Ventilator 90 04/16/17 03:39 91 25 30 04/16/17 03:00 85 04/16/17 01:08 84 31 30 04/16/17 00:00 97.5 84 16 138/72 100 Mechanical Ventilator 84 04/16/17 00:00 35 04/16/17 00:00 90 04/15/17 23:35 82 28 30 04/15/17 22:14 95 19 100 Mechanical Ventilator 30 04/15/17 21:27 89 26 100 Mechanical Ventilator 30 04/15/17 21:27 30 04/15/17 21:15 87 22 30 04/15/17 20:00 35 04/15/17 20:00 98.1 84 18 137/73 100 Mechanical Ventilator 84 04/15/17 20:00 80 04/15/17 19:25 97 23 30 04/15/17 17:02 96 22 30 04/15/17 16:05 102 22 30 04/15/17 16:00 97.7 91 22 139/70 100 Mechanical Ventilator 30 04/15/17 16:00 35 04/15/17 16:00 88 04/15/17 14:24 105 24 30 Intake and Output 04/16/17 04/17/17 19:00 07:00 Intake Total 300 ml Balance 300 ml IV Total 300 ml Objective WDWN NAD trach reduced breath sounds bilaterally with minimal rhonchi [id number] without MRG NABS nontender no HSM; GT; no distention no CC mild edema and same weak with reduced ROM nonfocal skin exam noted Laboratory Tests 04/15/17 13:12: White Blood Count 11.2H, Red Blood Count 3.73L, Hemoglobin 11.1L, Hematocrit 33.7L, Mean Corpuscular Volume 90, Mean Corpuscular Hemoglobin 29.7, Mean Corpuscular Hemoglobin Concent 32.9, Red Cell Distribution Width 13.5, Platelet Count 242, Mean Platelet Volume 6.4L, Neutrophils (%) (Auto) 81.5H, Lymphocytes (%) (Auto) 5.5L, Monocytes (%) (Auto) 10.0, Eosinophils (%) (Auto) 2.2, Basophils (%) (Auto) 0.7 04/16/17 04:00: White Blood Count 12.5H, Red Blood Count 3.53L, Hemoglobin 10.8L, Hematocrit 31.8L, Mean Corpuscular Volume 90, Mean Corpuscular Hemoglobin 30.4, Mean Corpuscular Hemoglobin Concent 33.8, Red Cell Distribution Width 13.2, Platelet Count 233, Mean Platelet Volume 6.1L, Neutrophils (%) (Auto) 77.5H, Lymphocytes (%) (Auto) 9.5L, Monocytes (%) (Auto) 10.3H, Eosinophils (%) (Auto) 2.1, Basophils (%) (Auto) 0.7 Current Medications Medications (Trade) Dose Ordered Sig/Josiah Route PRN Reason Start Time Stop Time Status Last Admin Dose Admin Amikacin Sulfate (Amikin) 500 mg Q12HR@10,22 INH 11/11/17 22:00 04/18/17 21:59 04/16/17 08:59 Amitriptyline HCl (Elavil) 10 mg BEDTIME GT 04/14/17 21:00 05/08/17 20:59 04/15/17 20:33 Chlorhexidine Gluconate (Cathy-Hex 2%) 1 applic DAILY@1999 TOPIC 04/14/17 20:00 05/12/17 19:59 04/15/17 20:33 Digoxin (Lanoxin) 0.125 mg DAILY GT 04/15/17 09:00 05/08/17 08:59 04/16/17 08:54 Levetiracetam (Keppra) 500 mg BID@0900,2100 GT 04/14/17 21:00 05/12/17 08:59 04/16/17 08:54 Levothyroxine Sodium (Synthroid) 150 mcg ACBREAKFAST GT 04/15/17 06:30 05/08/17 06:29 04/16/17 06:00 Midodrine (Pro-Amatine) 10 mg THREE TIMES A DAY GT 04/15/17 09:00 05/08/17 08:59 04/16/17 08:54 Multivitamins (Multivitamins W/ Minerals 15ml Liquid) 15 ml DAILY GT 04/15/17 09:00 05/08/17 08:59 04/16/17 08:54 Pantoprazole (Protonix) 40 mg Q12HR IVP 04/14/17 21:00 05/08/17 20:59 04/16/17 08:52 Sodium Chloride 1,000 ml @ 100 mls/hr Q10H IV 04/14/17 19:00 05/08/17 01:59 04/16/17 10:27 Sucralfate (Carafate) 1 gm EVERY 6 HOURS GT 04/15/17 00:00 05/12/17 00:00 04/16/17 06:00 MARCY MAJOR Apr 16, 2017 12:02
--- NOTE | 2017-04-16 12:30 | GI Progress Note ---
Assessment/Plan Problems: (1) Malfunction of gastrostomy tube ICD Codes: K94.23 - Gastrostomy malfunction SNOMED: 003355692 (2) Acute GI hemorrhage ICD Codes: K92.2 - Gastrointestinal hemorrhage, unspecified SNOMED: 56353861 (3) Sepsis ICD Codes: A41.9 - Sepsis, unspecified organism SNOMED: 71311858 Qualifiers: Qualified Codes: A41.9 - Sepsis, unspecified organism (4) Colitis ICD Codes: K52.9 - Noninfective gastroenteritis and colitis, unspecified SNOMED: 78690211 Status: stable Status Narrative Discussed with Dr. Rojas. Assessment/Plan neg bleeding scan stable H&H, prn transfusion GTF started ppi + carafate fu labs Subjective Subjective limited Objective Last 24 Hour Vital Signs Date Time Temp Pulse Resp B/P (MAP) Pulse Ox O2 Delivery O2 Flow Rate FiO2 04/16/17 11:11 99 29 30 04/16/17 09:02 100 18 100 Mechanical Ventilator 30 04/16/17 09:00 100 16 30 04/16/17 08:54 101 04/16/17 08:50 30 04/16/17 08:50 100 18 100 Mechanical Ventilator 30 04/16/17 08:00 35 04/16/17 08:00 92 04/16/17 08:00 98.4 101 22 136/60 99 Mechanical Ventilator 90 04/16/17 06:44 90 31 30 04/16/17 05:29 89 28 30 04/16/17 04:00 35 04/16/17 04:00 97.3 90 14 129/66 100 Mechanical Ventilator 90 04/16/17 03:39 91 25 30 04/16/17 03:00 85 04/16/17 01:08 84 31 30 04/16/17 00:00 97.5 84 16 138/72 100 Mechanical Ventilator 84 04/16/17 00:00 35 04/16/17 00:00 90 04/15/17 23:35 82 28 30 04/15/17 22:14 95 19 100 Mechanical Ventilator 30 04/15/17 21:27 89 26 100 Mechanical Ventilator 30 04/15/17 21:27 30 04/15/17 21:15 87 22 30 04/15/17 20:00 35 04/15/17 20:00 98.1 84 18 137/73 100 Mechanical Ventilator 84 04/15/17 20:00 80 04/15/17 19:25 97 23 30 04/15/17 17:02 96 22 30 04/15/17 16:05 102 22 30 04/15/17 16:00 97.7 91 22 139/70 100 Mechanical Ventilator 30 04/15/17 16:00 35 04/15/17 16:00 88 04/15/17 14:24 105 24 30 Intake and Output 04/16/17 04/17/17 19:00 07:00 Intake Total 300 ml Balance 300 ml IV Total 300 ml Laboratory Tests Test 04/15/17 13:12 04/16/17 04:00 White Blood Count 11.2 K/UL (4.8-10.8) H 12.5 K/UL (4.8-10.8) H Red Blood Count 3.73 M/UL (4.20-5.40) L 3.53 M/UL (4.20-5.40) L Hemoglobin 11.1 G/DL (12.0-16.0) L 10.8 G/DL (12.0-16.0) L Hematocrit 33.7 % (37.0-47.0) L 31.8 % (37.0-47.0) L Mean Corpuscular Volume 90 FL (80-99) 90 FL (80-99) Mean Corpuscular Hemoglobin 29.7 PG (27.0-31.0) 30.4 PG (27.0-31.0) Mean Corpuscular Hemoglobin Concent 32.9 G/DL (32.0-36.0) 33.8 G/DL (32.0-36.0) Red Cell Distribution Width 13.5 % (11.6-14.8) 13.2 % (11.6-14.8) Platelet Count 242 K/UL (150-450) 233 K/UL (150-450) Mean Platelet Volume 6.4 FL (6.5-10.1) L 6.1 FL (6.5-10.1) L Neutrophils (%) (Auto) 81.5 % (45.0-75.0) H 77.5 % (45.0-75.0) H Lymphocytes (%) (Auto) 5.5 % (20.0-45.0) L 9.5 % (20.0-45.0) L Monocytes (%) (Auto) 10.0 % (1.0-10.0) 10.3 % (1.0-10.0) H Eosinophils (%) (Auto) 2.2 % (0.0-3.0) 2.1 % (0.0-3.0) Basophils (%) (Auto) 0.7 % (0.0-2.0) 0.7 % (0.0-2.0) Height (Feet): 5 Weight (Pounds): 123 General Appearance: no apparent distress, lethargic Cardiovascular: normal rate Respiratory/Chest: no respiratory distress, other - mech vent Abdominal Exam: normal bowel sounds, non tender, soft, GT site - c/d/i Extremities: non-tender Linn Riley N.P. Apr 16, 2017 12:30
[2017-04-16 16:25] LABS: BASOPHILS % (AUTO) 0.7 % (0.0-2.0); EOSINOPHILS % (AUTO) 1.5 % (0.0-3.0); LYMPHOCYTES % (AUTO) 12.2 % (20.0-45.0); MEAN CORPUSCULAR HEMOGLOBIN 29.4 PG (27.0-31.0); MEAN CORPUSCULAR HGB CONC 32.7 G/DL (32.0-36.0); MEAN CORPUSCULAR VOLUME 90 FL (80-99); MEAN PLATELET VOLUME 6.2 FL (6.5-10.1); MONOCYTES % (AUTO) 10.8 % (1.0-10.0); NEUTROPHILS % (AUTO) 74.8 % (45.0-75.0); PLATELET COUNT 236 K/UL (150-450); RED BLOOD COUNT 2.77 M/UL (4.20-5.40); RED CELL DISTRIBUTION WIDTH 13.5 % (11.6-14.8); WHITE BLOOD COUNT 16.3 K/UL (4.8-10.8)
[2017-04-16] MEDS ORDERED: Pantoprazole 80 MG in NS 250 ML IV SCH (19:15)
[2017-04-16] MEDS: Pantoprazole 80 MG in NS 250 ML IV SCH (20:26)
[2017-04-16] MEDS: Dyna-Hex 2% Top Sol 2oz TOPIC SCH (20:27)
[2017-04-17] VITALS (21 sets, daily range): BP systolic 90–122; BP diastolic 34–70
[2017-04-17] MEDS: Amikacin for Inhalation 2ML INH SCH ×2 (00:29→09:27)
[2017-04-17 04:57] LABS: BASOPHILS % (AUTO) 0.7 % (0.0-2.0); LYMPHOCYTES % (AUTO) 14.1 % (20.0-45.0); MEAN CORPUSCULAR HEMOGLOBIN 31.7 PG (27.0-31.0); MEAN CORPUSCULAR HGB CONC 35.4 G/DL (32.0-36.0); MEAN CORPUSCULAR VOLUME 90 FL (80-99); MEAN PLATELET VOLUME 6.2 FL (6.5-10.1); MONOCYTES % (AUTO) 12.2 % (1.0-10.0); NEUTROPHILS % (AUTO) 71.9 % (45.0-75.0); PLATELET COUNT 150 K/UL (150-450); RED BLOOD COUNT 3.09 M/UL (4.20-5.40); RED CELL DISTRIBUTION WIDTH 13.2 % (11.6-14.8); WHITE BLOOD COUNT 12.5 K/UL (4.8-10.8)
[2017-04-17 05:10] LABS: ANION GAP 3 mmol/L (5-15); CALCIUM 7.3 MG/DL (8.5-10.1); CARBON DIOXIDE 30 MMOL/L (21-32); CHLORIDE 111 MMOL/L (98-107); CREATININE 0.5 MG/DL (0.55-1.30); MAGNESIUM 1.3 MG/DL (1.8-2.4); PHOSPHORUS 1.7 MG/DL (2.5-4.9); POTASSIUM 3.2 MMOL/L (3.5-5.1); SODIUM 144 MMOL/L (136-145)
[2017-04-17] MEDS: Pantoprazole 80 MG in NS 250 ML IV SCH ×2 (05:11→17:28)
[2017-04-17] MEDS: Sucralfate 1gm tab GT SCH ×5 (06:00→23:52)
[2017-04-17 07:15] LABS: PROTHROMBIN TIME 10.9 SEC (9.30-11.50)
[2017-04-17] MEDS ORDERED: Nulytely 4L GT ONE (07:30)
--- NOTE | 2017-04-17 07:45 | Progress Note ---
DATE: 04/16/2017 CARDIOLOGY PROGRESS NOTE SUBJECTIVE: The patient remains on ventilator support. She is awake and alert. No new bleeding noted. She has not required additional transfusion for the last three to four days. OBJECTIVE: VITAL SIGNS: Blood pressure is 129/66, pulse rate 90, respiratory rate 14, and no fevers. NECK: Thin trach secretions. LUNGS: With clear breath sounds. CARDIAC: Regular rhythm and rate. Normal S1 and S2. ABDOMEN: Soft. G-tube intact. EXTREMITIES: No edema. LABORATORY DATA: Repeat bleeding scan is negative. White count is 16 and hemoglobin 10.8. BUN is 31 and creatinine 0.5. IMPRESSION: 1. Anemia. No signs of new bleeding. 2. Respiratory failure. 3. Head and neck cancer. 4. Paroxysmal atrial fibrillation. 5. Paroxysmal supraventricular tachycardia. 6. Autonomic dysfunction with chronic hypotension. PLAN: 1. Continue ventilator support. 2. Continue digitalis for prophylaxis of rapid atrial fibrillation. 3. Serial hemoglobin. 4. Transfuse if drop noted. 5. Embolization therapy either consideration if the patient can be transferred to a higher level of care. Chi Bhatti M.D. DR: Sanjeev JOB#: [id number] CC:
--- NOTE | 2017-04-17 07:49 | Pulmonology Progress Note ---
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 GT, trach, anemia, possible GIB; s/p transfusion hypoxemia, failure to thrive PLAN no change from pulmonary standpoint respiratory care as is soft tip catheter for home use- son aware Ventilatory support as is supportive care as outlined and monitor for change suction with caution and monitor for bleeding no wean planned at present oxygen therapy noted care noted; gi reviewed prognosis poor avoid excessive suctioning medications/laboratory data/nursing notes reviewed in detail note reviewed and edited care discussed with RN and RT agree with dc planning medications/laboratory data/nursing notes/ICU care reviewed in detail note reviewed and edited care discussed with RN and RT ICU time spent 36 minutes Subjective ROS Limited/Unobtainable: Yes Allergies: Coded Allergies: PENICILLINS (Verified Allergy, Unknown, 07/31/16) Subjective on the vent care noted and discussed weekend events noted stable overall overnight resting on the ventilator Objective Last 24 Hour Vital Signs Date Time Temp Pulse Resp B/P (MAP) Pulse Ox O2 Delivery O2 Flow Rate FiO2 04/17/17 06:00 88 24 97/38 100 Mechanical Ventilator 30 04/17/17 05:30 100 31 30 04/17/17 05:00 84 23 97/37 99 Mechanical Ventilator 30 04/17/17 04:03 35 04/17/17 04:02 89 04/17/17 04:00 98.4 89 23 109/40 96 Mechanical Ventilator 30 04/17/17 03:00 97 20 109/45 100 Mechanical Ventilator 30 04/17/17 02:54 102 33 30 04/17/17 02:00 87 23 106/41 100 Mechanical Ventilator 30 04/17/17 01:30 92 25 30 04/17/17 01:00 93 24 106/45 98 Mechanical Ventilator 30 04/17/17 00:00 35 04/17/17 00:00 98.9 86 23 109/43 100 Mechanical Ventilator 30 04/16/17 23:30 88 24 100 Mechanical Ventilator 04/16/17 23:30 85 24 30 04/16/17 23:00 85 24 100 Mechanical Ventilator 30 04/16/17 23:00 90 24 103/46 100 Mechanical Ventilator 30 04/16/17 22:00 94 23 96/43 100 Mechanical Ventilator 30 04/16/17 21:05 101 24 30 04/16/17 21:00 93 22 90/44 100 Mechanical Ventilator 30 04/16/17 20:00 96 04/16/17 20:00 35 04/16/17 20:00 98.2 96 24 113/56 100 Mechanical Ventilator 30 04/16/17 19:30 103 26 30 04/16/17 16:44 94 22 30 04/16/17 16:00 103 04/16/17 16:00 35 04/16/17 16:00 98.2 121 26 122/87 99 Mechanical Ventilator 30 04/16/17 15:15 99 18 30 04/16/17 13:00 97 21 30 04/16/17 12:00 35 04/16/17 12:00 97.5 87 27 126/67 100 Mechanical Ventilator 30 04/16/17 12:00 84 04/16/17 11:11 99 29 30 04/16/17 09:02 100 18 100 Mechanical Ventilator 30 04/16/17 09:00 100 16 30 04/16/17 08:54 101 04/16/17 08:50 30 04/16/17 08:50 100 18 100 Mechanical Ventilator 30 04/16/17 08:00 35 04/16/17 08:00 92 04/16/17 08:00 98.4 101 22 136/60 99 Mechanical Ventilator 90 Objective WDWN NAD trach reduced breath sounds bilaterally with occasional rhonchi [id number] without MRG NABS nontender no HSM; GT; no distention no CC mild edema and same weak with reduced ROM nonfocal skin exam noted Laboratory Tests 04/16/17 16:00: White Blood Count 16.3H, Red Blood Count 2.77L, Hemoglobin 8.1L, Hematocrit 24.9L, Mean Corpuscular Volume 90, Mean Corpuscular Hemoglobin 29.4, Mean Corpuscular Hemoglobin Concent 32.7, Red Cell Distribution Width 13.5, Platelet Count 236, Mean Platelet Volume 6.2L, Neutrophils (%) (Auto) 74.8, Lymphocytes ( %) (Auto) 12.2L, Monocytes (%) (Auto) 10.8H, Eosinophils (%) (Auto) 1.5, Basophils (%) (Auto) 0.7 04/17/17 04:00: White Blood Count 12.5H, Red Blood Count 3.09L, Hemoglobin 9.8L, Hematocrit 27.7L, Mean Corpuscular Volume 90, Mean Corpuscular Hemoglobin 31.7H, Mean Corpuscular Hemoglobin Concent 35.4, Red Cell Distribution Width 13.2, Platelet Count 150, Mean Platelet Volume 6.2L, Neutrophils (%) (Auto) 71.9, Lymphocytes ( %) (Auto) 14.1L, Monocytes (%) (Auto) 12.2H, Eosinophils (%) (Auto) 1.0, Basophils (%) (Auto) 0.7, Sodium Level 144, Potassium Level 3.2L, Chloride Level 111H, Carbon Dioxide Level 30, Anion Gap 3L, Blood Urea Nitrogen 29H, Creatinine 0.5L, Estimat Glomerular Filtration Rate , Glucose Level 109H, Calcium Level 7.3L, Phosphorus Level 1.7L, Magnesium Level 1.3L 04/17/17 07:00: Prothrombin Time 10.9, Prothromb Time International Ratio 1.0, Activated Partial Thromboplast Time 23 Current Medications Medications (Trade) Dose Ordered Sig/Josiah Route PRN Reason Start Time Stop Time Status Last Admin Dose Admin Amikacin Sulfate (Amikin) 500 mg Q12HR@10,22 INH 04/16/17 22:00 04/18/17 21:59 04/17/17 00:29 Amitriptyline HCl (Elavil) 10 mg BEDTIME GT 04/16/17 21:00 05/08/17 20:59 Chlorhexidine Gluconate (Cathy-Hex 2%) 1 applic DAILY@1999 TOPIC 04/16/17 20:00 05/12/17 19:59 04/16/17 20:27 Digoxin (Lanoxin) 0.125 mg DAILY GT 04/17/17 09:00 05/08/17 08:59 Levetiracetam (Keppra) 500 mg Q12HR GT 04/16/17 21:00 05/16/17 20:59 Levothyroxine Sodium (Synthroid) 150 mcg ACBREAKFAST GT 04/17/17 06:30 05/08/17 06:29 Midodrine (Pro-Amatine) 10 mg THREE TIMES A DAY GT 04/17/17 09:00 05/08/17 08:59 Multivitamins (Multivitamins W/ Minerals 15ml Liquid) 15 ml DAILY GT 04/17/17 09:00 05/08/17 08:59 Ondansetron HCl (Zofran) 4 mg Q4H PRN IVP Nausea & Vomiting 04/16/17 21:00 05/16/17 20:59 Pantoprazole 80 mg/Sodium Chloride 250 ml @ 25 mls/hr Q10H IV 04/16/17 20:00 05/16/17 19:59 04/17/17 05:11 Sodium Chloride 1,000 ml @ 100 mls/hr Q10H IV 04/16/17 19:45 05/08/17 19:44 04/17/17 06:06 Sucralfate (Carafate) 1 gm EVERY 6 HOURS GT 04/17/17 00:00 05/12/17 00:00 MARCY MAJOR Apr 17, 2017 07:49
[2017-04-17] MEDS: levETIRAcetam 500mg/5ml Liquid GT SCH ×2 (08:10→20:34)
[2017-04-17] MEDS: Digoxin Elixir 0.125mg GT SCH (08:19)
[2017-04-17] MEDS: Multivitamins W/Minerals 15 ML UDC GT SCH (08:19)
[2017-04-17] MEDS: Midodrine 10mg tab GT SCH ×3 (08:20→17:28)
--- NOTE | 2017-04-17 09:16 | General Progress Note ---
Assessment/Plan Problem List: (1) new onset of generalised seizure activity (2) Acute GI hemorrhage ICD Codes: K92.2 - Gastrointestinal hemorrhage, unspecified SNOMED: 78121641 (3) Tongue malignant neoplasm ICD Codes: C02.9 - Malignant neoplasm of tongue, unspecified SNOMED: 762756935 (4) Lung nodule seen on imaging study ICD Codes: R91.1 - Solitary pulmonary nodule SNOMED: 585708756 Status: stable, progressing Assessment/Plan serial cbc ppi transfuse prn monitor for further bleeding vent resp rx suctioning abx still waiting for bed at [facility] Subjective ROS Limited/Unobtainable: Yes Constitutional: Reports: malaise, weakness HEENT: Reports: no symptoms Cardiovascular: Reports: no symptoms Respiratory: Reports: sputum Gastrointestinal/Abdominal: Reports: blood in stool, rectal bleeding Genitourinary: Reports: no symptoms Neurologic/Psychiatric: Reports: no symptoms Endocrine: Reports: no symptoms Hematologic/Lymphatic: Reports: anemia Allergies: Coded Allergies: PENICILLINS (Verified Allergy, Unknown, 07/31/16) All Systems: reviewed and negative except above Subjective transferred to icu for active bleeding again. hgb 10 to 8. given 2 units. Objective Last 24 Hour Vital Signs Date Time Temp Pulse Resp B/P (MAP) Pulse Ox O2 Delivery O2 Flow Rate FiO2 04/17/17 07:28 91 22 30 04/17/17 06:00 88 24 97/38 100 Mechanical Ventilator 30 04/17/17 05:30 100 31 30 04/17/17 05:00 84 23 97/37 99 Mechanical Ventilator 30 04/17/17 04:03 35 04/17/17 04:02 89 04/17/17 04:00 98.4 89 23 109/40 96 Mechanical Ventilator 30 04/17/17 03:00 97 20 109/45 100 Mechanical Ventilator 30 04/17/17 02:54 102 33 30 04/17/17 02:00 87 23 106/41 100 Mechanical Ventilator 30 04/17/17 01:30 92 25 30 04/17/17 01:00 93 24 106/45 98 Mechanical Ventilator 30 04/17/17 00:00 35 04/17/17 00:00 98.9 86 23 109/43 100 Mechanical Ventilator 30 04/16/17 23:30 88 24 100 Mechanical Ventilator 04/16/17 23:30 85 24 30 04/16/17 23:00 85 24 100 Mechanical Ventilator 30 04/16/17 23:00 90 24 103/46 100 Mechanical Ventilator 30 04/16/17 22:00 94 23 96/43 100 Mechanical Ventilator 30 04/16/17 21:05 101 24 30 04/16/17 21:00 93 22 90/44 100 Mechanical Ventilator 30 04/16/17 20:00 96 04/16/17 20:00 35 04/16/17 20:00 98.2 96 24 113/56 100 Mechanical Ventilator 30 04/16/17 19:30 103 26 30 04/16/17 16:44 94 22 30 04/16/17 16:00 103 04/16/17 16:00 35 04/16/17 16:00 98.2 121 26 122/87 99 Mechanical Ventilator 30 04/16/17 15:15 99 18 30 04/16/17 13:00 97 21 30 04/16/17 12:00 35 04/16/17 12:00 97.5 87 27 126/67 100 Mechanical Ventilator 30 04/16/17 12:00 84 04/16/17 11:11 99 29 30 Laboratory Tests 04/16/17 16:00: White Blood Count 16.3H, Red Blood Count 2.77L, Hemoglobin 8.1L, Hematocrit 24.9L, Mean Corpuscular Volume 90, Mean Corpuscular Hemoglobin 29.4, Mean Corpuscular Hemoglobin Concent 32.7, Red Cell Distribution Width 13.5, Platelet Count 236, Mean Platelet Volume 6.2L, Neutrophils (%) (Auto) 74.8, Lymphocytes ( %) (Auto) 12.2L, Monocytes (%) (Auto) 10.8H, Eosinophils (%) (Auto) 1.5, Basophils (%) (Auto) 0.7 04/17/17 04:00: White Blood Count 12.5H, Red Blood Count 3.09L, Hemoglobin 9.8L, Hematocrit 27.7L, Mean Corpuscular Volume 90, Mean Corpuscular Hemoglobin 31.7H, Mean Corpuscular Hemoglobin Concent 35.4, Red Cell Distribution Width 13.2, Platelet Count 150, Mean Platelet Volume 6.2L, Neutrophils (%) (Auto) 71.9, Lymphocytes ( %) (Auto) 14.1L, Monocytes (%) (Auto) 12.2H, Eosinophils (%) (Auto) 1.0, Basophils (%) (Auto) 0.7, Sodium Level 144, Potassium Level 3.2L, Chloride Level 111H, Carbon Dioxide Level 30, Anion Gap 3L, Blood Urea Nitrogen 29H, Creatinine 0.5L, Estimat Glomerular Filtration Rate , Glucose Level 109H, Calcium Level 7.3L, Phosphorus Level 1.7L, Magnesium Level 1.3L 04/17/17 07:00: Prothrombin Time 10.9, Prothromb Time International Ratio 1.0, Activated Partial Thromboplast Time 23 Height (Feet): 5 Weight (Pounds): 125 Objective GENERAL: The patient is a well-developed thin female, in no apparent distress, on the vent. She is arousable. NECK: Supple. Trachea is midline. There is no discharge. HEART: Regular rate and rhythm. LUNGS: Clear. ABDOMEN: Soft, nontender, and nondistended. EXTREMITIES: Without clubbing, cyanosis, or edema. CHRISTINA HAMMOND Apr 17, 2017 09:16
[2017-04-17 12:01] LABS: BASOPHILS % (AUTO) 0.8 % (0.0-2.0); EOSINOPHILS % (AUTO) 1.6 % (0.0-3.0); LYMPHOCYTES % (AUTO) 7.9 % (20.0-45.0); MEAN CORPUSCULAR HGB CONC 33.2 G/DL (32.0-36.0); MEAN CORPUSCULAR VOLUME 90 FL (80-99); MEAN PLATELET VOLUME 6.4 FL (6.5-10.1); MONOCYTES % (AUTO) 11.8 % (1.0-10.0); NEUTROPHILS % (AUTO) 77.8 % (45.0-75.0); PLATELET COUNT 202 K/UL (150-450); RED BLOOD COUNT 3.68 M/UL (4.20-5.40); RED CELL DISTRIBUTION WIDTH 13.5 % (11.6-14.8); WHITE BLOOD COUNT 13.5 K/UL (4.8-10.8)
--- NOTE | 2017-04-17 12:28 | Infectious Diseases Prog Note ---
Assessment/Plan Assessment/Plan antibiotics : inhaled amikacin A 1. pseudomonas pneumonia s/p rx 2. respiratory failure 3. leucocytosis improving 4. MRSA nasal colonization 5. head and neck cancer P 1. d/c inhaled amikacin 2. observe off antibiotics Subjective ROS Limited/Unobtainable: Yes Allergies: Coded Allergies: PENICILLINS (Verified Allergy, Unknown, 07/31/16) Objective Vital Signs Last 24 Hour Vital Signs Date Time Temp Pulse Resp B/P (MAP) Pulse Ox O2 Delivery O2 Flow Rate FiO2 04/17/17 12:00 35 04/17/17 12:00 92 04/17/17 12:00 98.9 89 21 98/41 100 Mechanical Ventilator 30 04/17/17 11:16 113 26 30 04/17/17 09:29 83 14 100 Mechanical Ventilator 30 04/17/17 09:27 89 14 30 04/17/17 09:19 89 14 100 Mechanical Ventilator 30 04/17/17 08:00 90 22 90/41 100 Mechanical Ventilator 30 04/17/17 08:00 91 04/17/17 08:00 35 04/17/17 07:28 91 22 30 04/17/17 06:00 88 24 97/38 100 Mechanical Ventilator 30 04/17/17 05:30 100 31 30 04/17/17 05:00 84 23 97/37 99 Mechanical Ventilator 30 04/17/17 04:03 35 04/17/17 04:02 89 04/17/17 04:00 98.4 89 23 109/40 96 Mechanical Ventilator 30 04/17/17 03:00 97 20 109/45 100 Mechanical Ventilator 30 04/17/17 02:54 102 33 30 04/17/17 02:00 87 23 106/41 100 Mechanical Ventilator 30 04/17/17 01:30 92 25 30 04/17/17 01:00 93 24 106/45 98 Mechanical Ventilator 30 04/17/17 00:00 35 04/17/17 00:00 98.9 86 23 109/43 100 Mechanical Ventilator 30 04/16/17 23:30 88 24 100 Mechanical Ventilator 04/16/17 23:30 85 24 30 04/16/17 23:00 85 24 100 Mechanical Ventilator 30 04/16/17 23:00 90 24 103/46 100 Mechanical Ventilator 30 04/16/17 22:00 94 23 96/43 100 Mechanical Ventilator 30 04/16/17 21:05 101 24 30 04/16/17 21:00 93 22 90/44 100 Mechanical Ventilator 30 04/16/17 20:00 96 04/16/17 20:00 35 04/16/17 20:00 98.2 96 24 113/56 100 Mechanical Ventilator 30 04/16/17 19:30 103 26 30 04/16/17 16:44 94 22 30 04/16/17 16:00 103 04/16/17 16:00 35 04/16/17 16:00 98.2 121 26 122/87 99 Mechanical Ventilator 30 04/16/17 15:15 99 18 30 04/16/17 13:00 97 21 30 Height (Feet): 5 Weight (Pounds): 125 HEENT: status post trach Respiratory/Chest: lungs clear Cardiovascular: normal rate, regular rhythm, no gallop/murmur Abdomen: soft, non tender, other - GT Extremities: no edema, other - right arm PICC Laboratory Tests Test 04/16/17 16:00 04/17/17 04:00 04/17/17 07:00 04/17/17 11:40 White Blood Count 16.3 K/UL (4.8-10.8) H 12.5 K/UL (4.8-10.8) H 13.5 K/UL (4.8-10.8) H Red Blood Count 2.77 M/UL (4.20-5.40) L 3.09 M/UL (4.20-5.40) L 3.68 M/UL (4.20-5.40) L Hemoglobin 8.1 G/DL (12.0-16.0) L 9.8 G/DL (12.0-16.0) L 11.0 G/DL (12.0-16.0) L Hematocrit 24.9 % (37.0-47.0) L 27.7 % (37.0-47.0) L 33.3 % (37.0-47.0) L Mean Corpuscular Volume 90 FL (80-99) 90 FL (80-99) 90 FL (80-99) Mean Corpuscular Hemoglobin 29.4 PG (27.0-31.0) 31.7 PG (27.0-31.0) H 30.0 PG (27.0-31.0) Mean Corpuscular Hemoglobin Concent 32.7 G/DL (32.0-36.0) 35.4 G/DL (32.0-36.0) 33.2 G/DL (32.0-36.0) Red Cell Distribution Width 13.5 % (11.6-14.8) 13.2 % (11.6-14.8) 13.5 % (11.6-14.8) Platelet Count 236 K/UL (150-450) 150 K/UL (150-450) 202 K/UL (150-450) Mean Platelet Volume 6.2 FL (6.5-10.1) L 6.2 FL (6.5-10.1) L 6.4 FL (6.5-10.1) L Neutrophils (%) (Auto) 74.8 % (45.0-75.0) 71.9 % (45.0-75.0) 77.8 % (45.0-75.0) H Lymphocytes (%) (Auto) 12.2 % (20.0-45.0) L 14.1 % (20.0-45.0) L 7.9 % (20.0-45.0) L Monocytes (%) (Auto) 10.8 % (1.0-10.0) H 12.2 % (1.0-10.0) H 11.8 % (1.0-10.0) H Eosinophils (%) (Auto) 1.5 % (0.0-3.0) 1.0 % (0.0-3.0) 1.6 % (0.0-3.0) Basophils (%) (Auto) 0.7 % (0.0-2.0) 0.7 % (0.0-2.0) 0.8 % (0.0-2.0) Sodium Level 144 MMOL/L (136-145) Pending Potassium Level 3.2 MMOL/L (3.5-5.1) L Pending Chloride Level 111 MMOL/L (98-107) H Pending Carbon Dioxide Level 30 MMOL/L (21-32) Pending Anion Gap 3 mmol/L (5-15) L Blood Urea Nitrogen 29 mg/dL (7-18) H Pending Creatinine 0.5 MG/DL (0.55-1.30) L Pending Estimat Glomerular Filtration Rate mL/min (>60) Pending Glucose Level 109 MG/DL (74-106) H Pending Calcium Level 7.3 MG/DL (8.5-10.1) L Pending Phosphorus Level 1.7 MG/DL (2.5-4.9) L Magnesium Level 1.3 MG/DL (1.8-2.4) L Prothrombin Time 10.9 SEC (9.30-11.50) Prothromb Time International Ratio 1.0 (0.9-1.1) Activated Partial Thromboplast Time 23 SEC (23-33) Total Bilirubin Pending Aspartate Amino Transf (AST/SGOT) Pending Alanine Aminotransferase (ALT/SGPT) Pending Alkaline Phosphatase Pending Total Protein Pending Albumin Pending Globulin Pending MARA BLOCK Apr 17, 2017 12:28
[2017-04-17 13:07] LABS: ALANINE AMINOTRANSFERASE 11 U/L (12-78); ALBUMIN/GLOBULIN RATIO 0.6 (1.0-2.7); ANION GAP 5 mmol/L (5-15); ASPARTATE AMINO TRANSFERASE 23 U/L (15-37); CARBON DIOXIDE 29 MMOL/L (21-32); CHLORIDE 111 MMOL/L (98-107); CREATININE 0.6 MG/DL (0.55-1.30); POTASSIUM 3.2 MMOL/L (3.5-5.1); SODIUM 145 MMOL/L (136-145); TOTAL PROTEIN 5.5 G/DL (6.4-8.2)
[2017-04-17] MEDS ORDERED: Midazolam 2mg/2ml Inj ONE (15:00)
[2017-04-17] MEDS ORDERED: Propofol 200mg/20ml IV ONE (15:00)
--- NOTE | 2017-04-17 15:39 | Pre-Procedure Note/Attestation ---
Pre-Procedure Note/Attestation Complete Prior to Procedure Planned Procedure: not applicable Procedure Narrative: colonoscopy Indications for Procedure Pre-Operative Diagnosis: GIB Attestation I attest that I discussed the nature of the procedure; its benefits; risks and complications; and alternatives (and the risks and benefits of such alternatives ), prior to the procedure, with the patient (or the patient's legal bottling equipment sales representative). I attest that, if there was a reasonable possibility of needing a blood transfusion, the patient (or the patient's legal bottling equipment sales representative) was given the [facility] standardized written summary, pursuant to the Lance Aaron Blood Safety Act ([place] Health and Safety Code # 1645, as amended). I attest that I re-evaluated the patient just prior to the surgery and that there has been no change in the patient's H&P, except as documented below: BIN MYERS Apr 17, 2017 15:39
[2017-04-17] MEDS ORDERED: NS 500ML IV ONE (15:40)
--- NOTE | 2017-04-17 16:55 | General Progress Note ---
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 possibly a lower GI bleed (nuc med bleed scan negative last week) Recommendations - continue to hold feeds - GI lavage --> colonoscopy today - BID PPI and q6 carafate - serial CBC - transfuse PRN - await transfer to [facility] for ? IR embolization Post procedure - colonoscopy completed to cecum - suboptimal preparation to detect small lesions - no active bleeding - old blood seen to cecum - two 1 cm polyps seen - biopsied only - very mild sigmoid diverticulosis - no source for LGIB identified - suspect UGIB - Rec repeat nuc med bleed scan if re-bleeds - Rec transfer to [facility] for IR eval or possible EGD using special ultrafine endoscope Subjective Allergies: Coded Allergies: PENICILLINS (Verified Allergy, Unknown, 07/31/16) Subjective Above noted Rectal maroon stools noted again yesterday got RBC transfusion d/w son pt with h/o severe PUD bleeding last year at [facility] required emergency intervention d/w son re possible LGIB agreed to colonoscopy Objective Last 24 Hour Vital Signs Date Time Temp Pulse Resp B/P (MAP) Pulse Ox O2 Delivery O2 Flow Rate FiO2 04/17/17 16:41 104 22 50 04/17/17 16:00 101 04/17/17 16:00 99.0 94 22 117/70 97 Mechanical Ventilator 50 04/17/17 16:00 50 04/17/17 15:30 50 04/17/17 15:01 82 19 30 04/17/17 15:00 85 18 96/34 100 Mechanical Ventilator 30 04/17/17 14:00 81 19 96/34 100 Mechanical Ventilator 30 04/17/17 13:03 104 20 30 04/17/17 13:00 94 23 108/56 100 Mechanical Ventilator 30 04/17/17 12:00 35 04/17/17 12:00 92 04/17/17 12:00 98.9 89 21 98/41 100 Mechanical Ventilator 30 04/17/17 11:16 113 26 30 04/17/17 11:00 94 21 118/54 99 Mechanical Ventilator 30 04/17/17 10:00 100 26 110/52 97 Mechanical Ventilator 30 04/17/17 09:29 83 14 100 Mechanical Ventilator 30 04/17/17 09:27 89 14 30 04/17/17 09:19 89 14 100 Mechanical Ventilator 30 04/17/17 09:00 99.0 90 21 98/41 100 Mechanical Ventilator 30 04/17/17 08:00 90 22 90/41 100 Mechanical Ventilator 30 04/17/17 08:00 91 04/17/17 08:00 35 04/17/17 07:28 91 22 30 04/17/17 06:00 88 24 97/38 100 Mechanical Ventilator 30 04/17/17 05:30 100 31 30 04/17/17 05:00 84 23 97/37 99 Mechanical Ventilator 30 04/17/17 04:03 35 04/17/17 04:02 89 04/17/17 04:00 98.4 89 23 109/40 96 Mechanical Ventilator 30 04/17/17 03:00 97 20 109/45 100 Mechanical Ventilator 30 04/17/17 02:54 102 33 30 04/17/17 02:00 87 23 106/41 100 Mechanical Ventilator 30 04/17/17 01:30 92 25 30 04/17/17 01:00 93 24 106/45 98 Mechanical Ventilator 30 04/17/17 00:00 35 04/17/17 00:00 98.9 86 23 109/43 100 Mechanical Ventilator 30 04/16/17 23:30 88 24 100 Mechanical Ventilator 04/16/17 23:30 85 24 30 04/16/17 23:00 85 24 100 Mechanical Ventilator 30 04/16/17 23:00 90 24 103/46 100 Mechanical Ventilator 30 04/16/17 22:00 94 23 96/43 100 Mechanical Ventilator 30 04/16/17 21:05 101 24 30 04/16/17 21:00 93 22 90/44 100 Mechanical Ventilator 30 04/16/17 20:00 96 04/16/17 20:00 35 04/16/17 20:00 98.2 96 24 113/56 100 Mechanical Ventilator 30 04/16/17 19:30 103 26 30 Intake and Output 04/17/17 04/18/17 19:00 07:00 Intake Total 4800 ml Balance 4800 ml IV Total 1100 ml Other 3700 ml # Bowel Movements 3 Laboratory Tests 04/17/17 04:00: White Blood Count 12.5H, Red Blood Count 3.09L, Hemoglobin 9.8L, Hematocrit 27.7L, Mean Corpuscular Volume 90, Mean Corpuscular Hemoglobin 31.7H, Mean Corpuscular Hemoglobin Concent 35.4, Red Cell Distribution Width 13.2, Platelet Count 150, Mean Platelet Volume 6.2L, Neutrophils (%) (Auto) 71.9, Lymphocytes ( %) (Auto) 14.1L, Monocytes (%) (Auto) 12.2H, Eosinophils (%) (Auto) 1.0, Basophils (%) (Auto) 0.7, Sodium Level 144, Potassium Level 3.2L, Chloride Level 111H, Carbon Dioxide Level 30, Anion Gap 3L, Blood Urea Nitrogen 29H, Creatinine 0.5L, Estimat Glomerular Filtration Rate , Glucose Level 109H, Calcium Level 7.3L, Phosphorus Level 1.7L, Magnesium Level 1.3L 04/17/17 07:00: Prothrombin Time 10.9, Prothromb Time International Ratio 1.0, Activated Partial Thromboplast Time 23 04/17/17 11:40: White Blood Count 13.5H, Red Blood Count 3.68L, Hemoglobin 11.0L, Hematocrit 33.3L, Mean Corpuscular Volume 90, Mean Corpuscular Hemoglobin 30.0, Mean Corpuscular Hemoglobin Concent 33.2, Red Cell Distribution Width 13.5, Platelet Count 202, Mean Platelet Volume 6.4L, Neutrophils (%) (Auto) 77.8H, Lymphocytes (%) (Auto) 7.9L, Monocytes (%) (Auto) 11.8H, Eosinophils (%) (Auto) 1.6, Basophils (%) (Auto) 0.8, Sodium Level 145, Potassium Level 3.2L, Chloride Level 111H, Carbon Dioxide Level 29, Anion Gap 5, Blood Urea Nitrogen 21H, Creatinine 0.6, Estimat Glomerular Filtration Rate , Glucose Level 113H, Calcium Level 8.0L, Total Bilirubin 0.4, Aspartate Amino Transf (AST/SGOT) 23, Alanine Aminotransferase (ALT/SGPT) 11L, Alkaline Phosphatase 52, Total Protein 5.5L, Albumin 2.0L, Globulin 3.5, Albumin/Globulin Ratio 0.6L Height (Feet): 5 Weight (Pounds): 125 Objective Debilitated elderly Woman NCAT Neck stiff from XRT, (+) trach coarse BS RR abd soft, ND, (+) GT no edema calm / NAD BIN MYERS Apr 17, 2017 16:55
--- NOTE | 2017-04-17 16:57 | Endoscopy Procedure Note ---
Endoscopy Procedure Note Indication for Procedure: GIB Procedures Performed: colonoscopy Operative Findings/Diagnosis: rare tics, two polyps, old blood, no LGIB source , sub optimal prep Specimen: yes Pt Tolerated Procedure Well: Yes Estimated Blood Loss: none Anesthesiologist: see report Anesthesia: MAC Medication Given: see anesthesia record Implant(s) used?: No 50 yrs or older w/o bx or poly: Not Applicable 10yrs. F/U not recommended: Not Applicable If not recommended, why?: BIN MYERS Apr 17, 2017 16:57
--- NOTE | 2017-04-17 16:58 | Brief Operative Note ---
Immediate Post Operative Note Operative Note Chief Complaint: GIB Pre-op Diagnosis: GIB Procedure: colonj . bx Post-op Diagnosis: Failed EGD Surgeon: deann Anesthesiologist: see report Anesthesia: MAC Specimen: yes Complications: none Condition: stable Fluids: see anesth report Estimated Blood Loss: none Implant(s) used?: No BIN MYERS Apr 17, 2017 16:58
--- NOTE | 2017-04-17 18:18 | Anethesia Preoperative Eval ---
Anesthesia Pre-op PMH/ROS General Date of Evaluation: Apr 17, 2017 Time of Evaluation: 15:40 Anesthesiologist: Ben ASA Score: ASA 4 Mallampati Score Class I : Soft palate, uvula, fauces, pillars visible Class II: Soft palate, uvula, fauces visible Class III: Soft palate, base of uvula visible Class IV: Only hard plate visible Mallampati Classification: Class III Surgeon: Joy Diagnosis: GI bleed Surgical Procedure: Colonocopy Anesthesia History: none Family History: no anesthesia problems Allergies: Coded Allergies: PENICILLINS (Verified Allergy, Unknown, 07/31/16) Medications: see eMAR Past Medical History Cardiovascular: Reports: HTN, arrhythmia, Denies: CAD, [place], valve dz, other Pulmonary: Reports: other - resp failure vent dependent, Denies: asthma, COPD, TRUDI Gastrointestinal/Genitourinary: Reports: GERD, CRI, other - Dysphagia PEG tube in place Neurologic/Psychiatric: Reports: dementia, CVA, depression/anxiety, Denies: TIA, other Endocrine: Reports: hypothyroidism, Denies: DM, steroids, other HEENT: Denies: cataract (L), cataract (R), glaucoma, CHEHALIS (L), CHEHALIS (R), other Hematology/Immune: Reports: anemia Musculoskeletal/Integumentary: Reports: DJD, Denies: OA, RA, DDD, edema, other PMH Narrative: as above PSxH Narrative: See H&P Anesthesia Pre-op Phys. Exam Physician Exam Last Vital Signs Date Time Temp Pulse Resp B/P (MAP) Pulse Ox O2 Delivery O2 Flow Rate FiO2 04/17/17 16:56 30 04/17/17 16:41 104 22 04/17/17 16:00 99.0 117/70 97 Mechanical Ventilator 04/10/17 04:00 4.0 Constitutional: NAD Neurologic: other - unable to obtaine Cardiovascular: other - IIR Respiratory: other - ifuse rhonky Gastrointestinal: S/NT/ND Airway Exam Mallampati Score: Class III MO: limited Neck: stiff ROM: limited Teeth: missing Dentures: no upper, no lower Anesthesia Pre-op A/P Labs Hematology Test 04/17/17 04:00 04/17/17 11:40 White Blood Count 12.5 K/UL (4.8-10.8) H 13.5 K/UL (4.8-10.8) H Red Blood Count 3.09 M/UL (4.20-5.40) L 3.68 M/UL (4.20-5.40) L Hemoglobin 9.8 G/DL (12.0-16.0) L 11.0 G/DL (12.0-16.0) L Hematocrit 27.7 % (37.0-47.0) L 33.3 % (37.0-47.0) L Mean Corpuscular Volume 90 FL (80-99) 90 FL (80-99) Mean Corpuscular Hemoglobin 31.7 PG (27.0-31.0) H 30.0 PG (27.0-31.0) Mean Corpuscular Hemoglobin Concent 35.4 G/DL (32.0-36.0) 33.2 G/DL (32.0-36.0) Red Cell Distribution Width 13.2 % (11.6-14.8) 13.5 % (11.6-14.8) Platelet Count 150 K/UL (150-450) 202 K/UL (150-450) Mean Platelet Volume 6.2 FL (6.5-10.1) L 6.4 FL (6.5-10.1) L Neutrophils (%) (Auto) 71.9 % (45.0-75.0) 77.8 % (45.0-75.0) H Lymphocytes (%) (Auto) 14.1 % (20.0-45.0) L 7.9 % (20.0-45.0) L Monocytes (%) (Auto) 12.2 % (1.0-10.0) H 11.8 % (1.0-10.0) H Eosinophils (%) (Auto) 1.0 % (0.0-3.0) 1.6 % (0.0-3.0) Basophils (%) (Auto) 0.7 % (0.0-2.0) 0.8 % (0.0-2.0) Coagulation Test 04/17/17 07:00 Prothrombin Time 10.9 SEC (9.30-11.50) Prothromb Time International Ratio 1.0 (0.9-1.1) Activated Partial Thromboplast Time 23 SEC (23-33) Chemistry Test 04/17/17 04:00 04/17/17 11:40 Sodium Level 144 MMOL/L (136-145) 145 MMOL/L (136-145) Potassium Level 3.2 MMOL/L (3.5-5.1) L 3.2 MMOL/L (3.5-5.1) L Chloride Level 111 MMOL/L (98-107) H 111 MMOL/L (98-107) H Carbon Dioxide Level 30 MMOL/L (21-32) 29 MMOL/L (21-32) Anion Gap 3 mmol/L (5-15) L 5 mmol/L (5-15) Blood Urea Nitrogen 29 mg/dL (7-18) H 21 mg/dL (7-18) H Creatinine 0.5 MG/DL (0.55-1.30) L 0.6 MG/DL (0.55-1.30) Estimat Glomerular Filtration Rate mL/min (>60) mL/min (>60) Glucose Level 109 MG/DL (74-106) H 113 MG/DL (74-106) H Calcium Level 7.3 MG/DL (8.5-10.1) L 8.0 MG/DL (8.5-10.1) L Phosphorus Level 1.7 MG/DL (2.5-4.9) L Magnesium Level 1.3 MG/DL (1.8-2.4) L Total Bilirubin 0.4 MG/DL (0.2-1.0) Aspartate Amino Transf (AST/SGOT) 23 U/L (15-37) Alanine Aminotransferase (ALT/SGPT) 11 U/L (12-78) L Alkaline Phosphatase 52 U/L (46-116) Total Protein 5.5 G/DL (6.4-8.2) L Albumin 2.0 G/DL (3.4-5.0) L Globulin 3.5 g/dL Albumin/Globulin Ratio 0.6 (1.0-2.7) L Risk Assessment & Plan Assessment: ASA 4 Plan: ROBBY PARK M.D. Apr 17, 2017 18:18
--- NOTE | 2017-04-17 18:21 | Immediate Post-Op Evaluation ---
Immediate Post-Op Evalulation Immediate Post-Op Evalulation Procedure: Colonoscpy Date of Evaluation: Apr 17, 2017 Time of Evaluation: 16:48 IV Fluids: 300 Blood Products: none Estimated Blood Loss: min Urinary Output: none Blood Pressure Systolic: 138 Blood Pressure Diastolic: 76 Pulse Rate: 98 Respiratory Rate: 20 O2 Sat by Pulse Oximetry: 99 Temperature (Fahrenheit): 97.6 Pain Score (1-10): 2 Nausea: No Vomiting: No Patient Status: reacts, ventilated, none Hydration Status: adequate ROBBY MORA M.D. Apr 17, 2017 18:21
[2017-04-17] MEDS: Dyna-Hex 2% Top Sol 2oz TOPIC SCH (20:34)
[2017-04-18] VITALS (24 sets, daily range): BP systolic 109–143; BP diastolic 42–74
[2017-04-18] MEDS ORDERED: NS IV SCH ×2 (01:30→20:00)
[2017-04-18] MEDS ORDERED: POTASSIUM PHOSPHATE IV SCH ×2 (01:30→20:00)
[2017-04-18] MEDS: Pantoprazole 80 MG in NS 250 ML IV SCH ×3 (02:53→22:08)
--- NOTE | 2017-04-18 03:15 | Progress Note ---
DATE: 04/17/2017 CARDIOLOGY PROGRESS NOTE SUBJECTIVE: The patient had a failed EGD attempt today due to a frozen neck from prior radiation. Colonoscopy was performed without complications, two small polyps and no sign of bleeding received. The patient was transferred back to the intensive care unit yesterday because of recurring maroon-colored stools and drop in her hemoglobin level. PRBC transfusion was given. Monitored rhythm, sinus. OBJECTIVE: VITAL SIGNS: Blood pressure is 117/70, earlier 96/34, heart rate 85, respiratory rate 18, and temperature 99.0. GENERAL: Alert. Thin trach secretions. No active bleeding. LUNGS: Clear. CARDIAC: Regular rhythm and rate. Normal S1 and S2 with no murmur. ABDOMEN: Slightly distended, but soft. G-tube intact. EXTREMITIES: Without edema. LABORATORY DATA: White count is 12.5 and hemoglobin 9.8 post transfusion. Sodium 144, potassium 3.3, bicarbonate 30, BUN 29, and creatinine 0.5. Magnesium 1.3. Phosphorus 1.7. IMPRESSION: 1. Ventilator-dependent respiratory failure. 2. Recurring gastrointestinal bleed. 3. Hypomagnesemia. 4. Hypophosphatemia. 5. Hypokalemia. 6. Paroxysmal atrial fibrillation. 7. Chronic diastolic congestive heart failure. 8. Autonomic dysfunction with chronic hypotension. PLAN: 1. Titrate midodrine. 2. Replace magnesium, phosphorus, and potassium. 3. Serial hemoglobin with transfusions for less than 8 g. 4. Awaiting transfer to higher level of care where Interventional Radiology embolization can be considered. Chi Bhatti M.D. DR: Sanjeev JOB#: [id number] CC:
--- NOTE | 2017-04-18 04:15 | Procedure Note ---
DATE OF PROCEDURE: 04/17/2017 PROCEDURE: Colonoscopy with biopsy. SURGEON: Yina Li M.D. ANESTHESIA: Please see the separate anesthesiologist notes for details. PRE-ENDOSCOPIC DIAGNOSIS: Gastrointestinal bleeding. POST-ENDOSCOPIC DIAGNOSES: 1. Suboptimal preparation making detection of small lesions difficult. 2. Colonoscopy completed of the cecum with no evidence of fresh bleeding, but some old blood seen scattered throughout the colon all the way to the cecum. 3. Two 1 cm polyps seen, one in the proximal ascending colon and one in the proximal transverse colon, which were both biopsied and not removed (due to current issue of active bleeding). 4. Very mild sigmoid diverticulosis. 5. No source for lower gastrointestinal bleeding identified and therefore the bleeding is suspected to be upper gastrointestinal in nature. DESCRIPTION OF PROCEDURE: The procedure, its risks, indications, alternatives, and possible complications were explained to the patient's son and informed consent was obtained. The patient was then sedated and a diagnostic colonoscope was introduced into the rectum and advanced to the cecum. The colonoscope was then gradually withdrawn and the mucosa was examined carefully. The cecum was identified by the appearance of the ileocecal valve. Examination of the colonic mucosa was normal for above-listed findings. The colonoscope was removed and the patient was sent to recovery in good condition. COMPLICATIONS: None. RECOMMENDATIONS: 1. Observe overnight. 2. Restart feeding tomorrow. 3. Await transfer to [facility]. 4. Monitor for further recurrent bleeding. 5. Nuclear medicine scan and/or angiography with next episode of bleeding. Yina Li M.D. DR: LEI JOB#: [id number] CC:
[2017-04-18 05:15] LABS: EOSINOPHILS % (AUTO) 2.5 % (0.0-3.0); MEAN CORPUSCULAR HEMOGLOBIN 30.4 PG (27.0-31.0); MEAN CORPUSCULAR HGB CONC 33.3 G/DL (32.0-36.0); MEAN CORPUSCULAR VOLUME 91 FL (80-99); MEAN PLATELET VOLUME 6.7 FL (6.5-10.1); MONOCYTES % (AUTO) 8.6 % (1.0-10.0); NEUTROPHILS % (AUTO) 74.9 % (45.0-75.0); PLATELET COUNT 191 K/UL (150-450); RED BLOOD COUNT 3.12 M/UL (4.20-5.40); RED CELL DISTRIBUTION WIDTH 13.7 % (11.6-14.8); WHITE BLOOD COUNT 11.8 K/UL (4.8-10.8)
[2017-04-18] MEDS: Sucralfate 1gm tab GT SCH ×4 (05:57→23:47)
[2017-04-18 06:06] LABS: ALANINE AMINOTRANSFERASE 11 U/L (12-78); ALBUMIN/GLOBULIN RATIO 0.5 (1.0-2.7); ANION GAP 4 mmol/L (5-15); ASPARTATE AMINO TRANSFERASE 23 U/L (15-37); CALCIUM 8.1 MG/DL (8.5-10.1); CARBON DIOXIDE 29 MMOL/L (21-32); CHLORIDE 112 MMOL/L (98-107); CREATININE 0.5 MG/DL (0.55-1.30); POTASSIUM 2.9 MMOL/L (3.5-5.1); SODIUM 145 MMOL/L (136-145); TOTAL PROTEIN 5.1 G/DL (6.4-8.2)
[2017-04-18 06:55] LABS: MAGNESIUM 2.3 MG/DL (1.8-2.4); PHOSPHORUS 2.2 MG/DL (2.5-4.9)
--- NOTE | 2017-04-18 07:46 | General Progress Note ---
Assessment/Plan Problem List: (1) new onset of generalised seizure activity (2) Acute GI hemorrhage ICD Codes: K92.2 - Gastrointestinal hemorrhage, unspecified SNOMED: 55050354 (3) Tongue malignant neoplasm ICD Codes: C02.9 - Malignant neoplasm of tongue, unspecified SNOMED: 005828141 (4) Lung nodule seen on imaging study ICD Codes: R91.1 - Solitary pulmonary nodule SNOMED: 376898643 Status: stable, progressing Assessment/Plan serial cbc ppi transfuse prn monitor for further bleeding vent resp rx suctioning abx still waiting [facility] bed [facility] Subjective ROS Limited/Unobtainable: No Constitutional: Reports: malaise, weakness HEENT: Reports: no symptoms Cardiovascular: Reports: no symptoms Respiratory: Reports: no symptoms Gastrointestinal/Abdominal: Reports: difficulty swallowing Genitourinary: Reports: no symptoms Neurologic/Psychiatric: Reports: pre-existing deficit Endocrine: Reports: no symptoms Hematologic/Lymphatic: Reports: anemia Allergies: Coded Allergies: PENICILLINS (Verified Allergy, Unknown, 07/31/16) All Systems: reviewed and negative except above Subjective no further bleeding noted. decrease h/h. on the vent. responds to verbal stimuli and commands. colonoscopy results noted. Objective Last 24 Hour Vital Signs Date Time Temp Pulse Resp B/P (MAP) Pulse Ox O2 Delivery O2 Flow Rate FiO2 04/18/17 07:18 85 21 30 04/18/17 06:00 100 26 131/55 98 Mechanical Ventilator 30 04/18/17 05:28 83 20 30 04/18/17 05:00 84 17 123/52 99 Mechanical Ventilator 30 04/18/17 04:00 88 04/18/17 04:00 98.5 88 18 123/54 99 Mechanical Ventilator 30 04/18/17 04:00 30 04/18/17 03:00 91 25 122/51 99 Mechanical Ventilator 30 04/18/17 02:45 82 18 30 04/18/17 02:00 86 18 123/51 99 Mechanical Ventilator 30 04/18/17 01:00 89 20 122/54 97 Mechanical Ventilator 30 04/18/17 00:47 94 22 30 04/18/17 00:00 98.4 91 22 122/54 100 Mechanical Ventilator 30 04/18/17 00:00 30 04/18/17 00:00 91 04/17/17 23:15 93 23 30 04/17/17 23:00 87 20 122/50 100 Mechanical Ventilator 30 04/17/17 22:00 93 24 120/56 99 Mechanical Ventilator 30 04/17/17 21:25 94 25 30 04/17/17 21:00 89 22 120/48 99 Mechanical Ventilator 30 04/17/17 20:00 83 18 103/41 96 Mechanical Ventilator 30 04/17/17 20:00 30 04/17/17 20:00 83 04/17/17 19:05 88 20 30 04/17/17 19:00 98.7 87 22 119/45 98 Mechanical Ventilator 30 04/17/17 18:21 98 20 99 04/17/17 16:56 30 04/17/17 16:41 104 22 50 04/17/17 16:00 101 04/17/17 16:00 99.0 94 22 117/70 97 Mechanical Ventilator 50 04/17/17 16:00 50 04/17/17 15:30 50 04/17/17 15:01 82 19 30 04/17/17 15:00 85 18 96/34 100 Mechanical Ventilator 30 04/17/17 14:00 81 19 96/34 100 Mechanical Ventilator 30 04/17/17 13:03 104 20 30 04/17/17 13:00 94 23 108/56 100 Mechanical Ventilator 30 04/17/17 12:00 35 04/17/17 12:00 92 04/17/17 12:00 98.9 89 21 98/41 100 Mechanical Ventilator 30 04/17/17 11:16 113 26 30 04/17/17 11:00 94 21 118/54 99 Mechanical Ventilator 30 04/17/17 10:00 100 26 110/52 97 Mechanical Ventilator 30 04/17/17 09:29 83 14 100 Mechanical Ventilator 30 04/17/17 09:27 89 14 30 04/17/17 09:19 89 14 100 Mechanical Ventilator 30 04/17/17 09:00 99.0 90 21 98/41 100 Mechanical Ventilator 30 04/17/17 08:00 90 22 90/41 100 Mechanical Ventilator 30 04/17/17 08:00 91 04/17/17 08:00 35 Laboratory Tests 04/17/17 11:40: White Blood Count 13.5H, Red Blood Count 3.68L, Hemoglobin 11.0L, Hematocrit 33.3L, Mean Corpuscular Volume 90, Mean Corpuscular Hemoglobin 30.0, Mean Corpuscular Hemoglobin Concent 33.2, Red Cell Distribution Width 13.5, Platelet Count 202, Mean Platelet Volume 6.4L, Neutrophils (%) (Auto) 77.8H, Lymphocytes (%) (Auto) 7.9L, Monocytes (%) (Auto) 11.8H, Eosinophils (%) (Auto) 1.6, Basophils (%) (Auto) 0.8, Sodium Level 145, Potassium Level 3.2L, Chloride Level 111H, Carbon Dioxide Level 29, Anion Gap 5, Blood Urea Nitrogen 21H, Creatinine 0.6, Estimat Glomerular Filtration Rate , Glucose Level 113H, Calcium Level 8.0L, Total Bilirubin 0.4, Aspartate Amino Transf (AST/SGOT) 23, Alanine Aminotransferase (ALT/SGPT) 11L, Alkaline Phosphatase 52, Total Protein 5.5L, Albumin 2.0L, Globulin 3.5, Albumin/Globulin Ratio 0.6L 04/18/17 04:00: White Blood Count 11.8H, Red Blood Count 3.12L, Hemoglobin 9.5L, Hematocrit 28.5L, Mean Corpuscular Volume 91, Mean Corpuscular Hemoglobin 30.4, Mean Corpuscular Hemoglobin Concent 33.3, Red Cell Distribution Width 13.7, Platelet Count 191, Mean Platelet Volume 6.7, Neutrophils (%) (Auto) 74.9, Lymphocytes (% ) (Auto) 13.0L, Monocytes (%) (Auto) 8.6, Eosinophils (%) (Auto) 2.5, Basophils (%) (Auto) 1.0, Sodium Level 145, Potassium Level 2.9L, Chloride Level 112H, Carbon Dioxide Level 29, Anion Gap 4L, Blood Urea Nitrogen 11, Creatinine 0.5L, Estimat Glomerular Filtration Rate , Glucose Level 109H, Calcium Level 8.1L, Total Bilirubin 0.3, Aspartate Amino Transf (AST/SGOT) 23, Alanine Aminotransferase (ALT/SGPT) 11L, Alkaline Phosphatase 47, Total Protein 5.1L, Albumin 1.8L, Globulin 3.3, Albumin/Globulin Ratio 0.5L, Phosphorus Level 2.2L, Magnesium Level 2.3 Height (Feet): 5 Weight (Pounds): 130 Objective GENERAL: The patient is a well-developed thin female, in no apparent distress, on the vent. She is arousable. NECK: Supple. Trachea is midline. There is no discharge. HEART: Regular rate and rhythm. LUNGS: Clear. ABDOMEN: Soft, nontender, and nondistended. EXTREMITIES: Without clubbing, cyanosis, or edema. CHRISTINA HAMMOND Apr 18, 2017 07:46
[2017-04-18] MEDS ORDERED: KCl 10% 40mEq/30ml liquid NG ONE ×2 (08:45→11:00)
--- NOTE | 2017-04-18 08:49 | Pulmonology Progress Note ---
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 GT, trach, anemia, possible GIB; s/p transfusion hypoxemia, failure to thrive PLAN no change from pulmonary standpoint respiratory care as is- not change for now soft tip catheter for home use- son aware Ventilatory support as is; reviewed setting supportive care as outlined and monitor for change suction with caution and monitor for bleeding no wean planned at present oxygen therapy noted care noted; gi reviewed prognosis poor avoid excessive suctioning medications/laboratory data/nursing notes reviewed in detail note reviewed and edited care discussed with RN and RT agree with dc planning medications/laboratory data/nursing notes/ICU care reviewed in detail note reviewed and edited care discussed with RN and RT ICU time spent 38 minutes Subjective ROS Limited/Unobtainable: Yes Allergies: Coded Allergies: PENICILLINS (Verified Allergy, Unknown, 07/31/16) Subjective on the vent care noted and discussed events noted stable overall overnight resting on the ventilator Objective Last 24 Hour Vital Signs Date Time Temp Pulse Resp B/P (MAP) Pulse Ox O2 Delivery O2 Flow Rate FiO2 04/18/17 07:18 85 21 30 04/18/17 06:00 100 26 131/55 98 Mechanical Ventilator 30 04/18/17 05:28 83 20 30 04/18/17 05:00 84 17 123/52 99 Mechanical Ventilator 30 04/18/17 04:00 88 04/18/17 04:00 98.5 88 18 123/54 99 Mechanical Ventilator 30 04/18/17 04:00 30 04/18/17 03:00 91 25 122/51 99 Mechanical Ventilator 30 04/18/17 02:45 82 18 30 04/18/17 02:00 86 18 123/51 99 Mechanical Ventilator 30 04/18/17 01:00 89 20 122/54 97 Mechanical Ventilator 30 04/18/17 00:47 94 22 30 04/18/17 00:00 98.4 91 22 122/54 100 Mechanical Ventilator 30 04/18/17 00:00 30 04/18/17 00:00 91 04/17/17 23:15 93 23 30 04/17/17 23:00 87 20 122/50 100 Mechanical Ventilator 30 04/17/17 22:00 93 24 120/56 99 Mechanical Ventilator 30 04/17/17 21:25 94 25 30 04/17/17 21:00 89 22 120/48 99 Mechanical Ventilator 30 04/17/17 20:00 83 18 103/41 96 Mechanical Ventilator 30 04/17/17 20:00 30 04/17/17 20:00 83 04/17/17 19:05 88 20 30 04/17/17 19:00 98.7 87 22 119/45 98 Mechanical Ventilator 30 04/17/17 18:21 98 20 99 04/17/17 16:56 30 04/17/17 16:41 104 22 50 04/17/17 16:00 101 04/17/17 16:00 99.0 94 22 117/70 97 Mechanical Ventilator 50 04/17/17 16:00 50 04/17/17 15:30 50 04/17/17 15:01 82 19 30 04/17/17 15:00 85 18 96/34 100 Mechanical Ventilator 30 04/17/17 14:00 81 19 96/34 100 Mechanical Ventilator 30 04/17/17 13:03 104 20 30 04/17/17 13:00 94 23 108/56 100 Mechanical Ventilator 30 04/17/17 12:00 35 04/17/17 12:00 92 04/17/17 12:00 98.9 89 21 98/41 100 Mechanical Ventilator 30 04/17/17 11:16 113 26 30 04/17/17 11:00 94 21 118/54 99 Mechanical Ventilator 30 04/17/17 10:00 100 26 110/52 97 Mechanical Ventilator 30 04/17/17 09:29 83 14 100 Mechanical Ventilator 30 04/17/17 09:27 89 14 30 04/17/17 09:19 89 14 100 Mechanical Ventilator 30 04/17/17 09:00 99.0 90 21 98/41 100 Mechanical Ventilator 30 Objective WDWN NAD trach reduced breath sounds bilaterally with occasional rhonchi [id number] without MRG NABS nontender no HSM; GT; no distention no CC mild edema and same weak with reduced ROM nonfocal skin exam noted Laboratory Tests 04/17/17 11:40: White Blood Count 13.5H, Red Blood Count 3.68L, Hemoglobin 11.0L, Hematocrit 33.3L, Mean Corpuscular Volume 90, Mean Corpuscular Hemoglobin 30.0, Mean Corpuscular Hemoglobin Concent 33.2, Red Cell Distribution Width 13.5, Platelet Count 202, Mean Platelet Volume 6.4L, Neutrophils (%) (Auto) 77.8H, Lymphocytes (%) (Auto) 7.9L, Monocytes (%) (Auto) 11.8H, Eosinophils (%) (Auto) 1.6, Basophils (%) (Auto) 0.8, Sodium Level 145, Potassium Level 3.2L, Chloride Level 111H, Carbon Dioxide Level 29, Anion Gap 5, Blood Urea Nitrogen 21H, Creatinine 0.6, Estimat Glomerular Filtration Rate , Glucose Level 113H, Calcium Level 8.0L, Total Bilirubin 0.4, Aspartate Amino Transf (AST/SGOT) 23, Alanine Aminotransferase (ALT/SGPT) 11L, Alkaline Phosphatase 52, Total Protein 5.5L, Albumin 2.0L, Globulin 3.5, Albumin/Globulin Ratio 0.6L 04/18/17 04:00: White Blood Count 11.8H, Red Blood Count 3.12L, Hemoglobin 9.5L, Hematocrit 28.5L, Mean Corpuscular Volume 91, Mean Corpuscular Hemoglobin 30.4, Mean Corpuscular Hemoglobin Concent 33.3, Red Cell Distribution Width 13.7, Platelet Count 191, Mean Platelet Volume 6.7, Neutrophils (%) (Auto) 74.9, Lymphocytes (% ) (Auto) 13.0L, Monocytes (%) (Auto) 8.6, Eosinophils (%) (Auto) 2.5, Basophils (%) (Auto) 1.0, Sodium Level 145, Potassium Level 2.9L, Chloride Level 112H, Carbon Dioxide Level 29, Anion Gap 4L, Blood Urea Nitrogen 11, Creatinine 0.5L, Estimat Glomerular Filtration Rate , Glucose Level 109H, Calcium Level 8.1L, Total Bilirubin 0.3, Aspartate Amino Transf (AST/SGOT) 23, Alanine Aminotransferase (ALT/SGPT) 11L, Alkaline Phosphatase 47, Total Protein 5.1L, Albumin 1.8L, Globulin 3.3, Albumin/Globulin Ratio 0.5L, Phosphorus Level 2.2L, Magnesium Level 2.3 Current Medications Medications (Trade) Dose Ordered Sig/Josiah Route PRN Reason Start Time Stop Time Status Last Admin Dose Admin Amitriptyline HCl (Elavil) 10 mg BEDTIME GT 04/16/17 21:00 05/08/17 20:59 Chlorhexidine Gluconate (Cathy-Hex 2%) 1 applic DAILY@2000 TOPIC 04/16/17 20:00 05/12/17 19:59 04/17/17 20:34 Digoxin (Lanoxin) 0.125 mg DAILY GT 04/17/17 09:00 05/08/17 08:59 Levetiracetam (Keppra) 500 mg Q12HR GT 04/16/17 21:00 05/16/17 20:59 Levothyroxine Sodium (Synthroid) 150 mcg ACBREAKFAST GT 04/17/17 06:30 05/08/17 06:29 Midodrine (Pro-Amatine) 10 mg THREE TIMES A DAY GT 04/17/17 09:00 05/08/17 08:59 Multivitamins (Multivitamins W/ Minerals 15ml Liquid) 15 ml DAILY GT 04/17/17 09:00 05/08/17 08:59 Ondansetron HCl (Zofran) 4 mg Q4H PRN IVP Nausea & Vomiting 04/16/17 21:00 05/16/17 20:59 Pantoprazole 80 mg/Sodium Chloride 250 ml @ 25 mls/hr Q10H IV 04/16/17 20:00 05/16/17 19:59 04/18/17 02:53 Potassium Phosphate 20 meq/ Sodium Chloride 1,004.5455 ml @ 100 mls/hr Q10H3M IV 04/18/17 07:00 05/18/17 06:59 Potassium Chloride (KCl 10% 40mEq Oral solution) 30 meq ONCE ONCE NG 04/18/17 11:00 04/18/17 11:01 Sucralfate (Carafate) 1 gm EVERY 6 HOURS GT 04/17/17 00:00 05/12/17 00:00 MARCY MAJOR Apr 18, 2017 08:49
[2017-04-18] MEDS: NS IV SCH ×2 (09:05→17:03)
[2017-04-18] MEDS: POTASSIUM PHOSPHATE IV SCH ×2 (09:05→17:03)
--- NOTE | 2017-04-18 09:13 | Wound Nurse Progress Note ---
Wound RN Progress Note Wound Consult Reassessment #1 Sacral stage II pressure ulcer-resolved scar tissue visible site remains intact at this time. - continue preventative and skin management precautions. Turn and reposition,avoid shear and friction,keep clean and dry, offload affected site, provide skin barrier cream for skin management. Chemical burn and scar tissue on surrounding area- noted good progress, continue gentle pericare, keep clean and dry Recommendation -Local wound care as ordered. -Keep clean and dry -Turn and reposition -Low air loss SPR mattress -Offload both heels -Heel protector on both heels -Optimize nutrition -Assess and f/u accordingly for any changes YADIRA DIAMOND Apr 18, 2017 09:13
[2017-04-18] MEDS: Multivitamins W/Minerals 15 ML UDC GT SCH (09:41)
[2017-04-18] MEDS: Digoxin Elixir 0.125mg GT SCH (09:41)
[2017-04-18] MEDS: levETIRAcetam 500mg/5ml Liquid GT SCH ×2 (09:42→20:31)
[2017-04-18] MEDS: Midodrine 10mg tab GT SCH ×3 (10:04→18:01)
--- NOTE | 2017-04-18 10:47 | 48 Hour Post Anesthesia Eval ---
Post Anesthesia Evaluation Procedure: Colonoscpy Date of Evaluation: Apr 18, 2017 Time of Evaluation: 10:46 Blood Pressure Systolic: 136 0: 54 Pulse Rate: 78 Respiratory Rate: 20 Temperature (Fahrenheit): 97.6 O2 Sat by Pulse Oximetry: 98 Airway: patent Nausea: No Vomiting: No Pain Intensity: 2 Hydration Status: adequate Cardiopulmonary Status: stable Mental Status/LOC: patient returned to baseline Follow-up Care/Observations: n/a Post-Anesthesia Complications: none Follow-up care needed: N/A ROBBY MORA M.D. Apr 18, 2017 10:47
--- NOTE | 2017-04-18 11:31 | Infectious Diseases Prog Note ---
Assessment/Plan Assessment/Plan antibiotics : none A 1. pseudomonas pneumonia s/p rx 2. respiratory failure 3. leucocytosis resolved 4. MRSA nasal colonization 5. head and neck cancer P 1. observe off antibiotics Subjective ROS Limited/Unobtainable: Yes Allergies: Coded Allergies: PENICILLINS (Verified Allergy, Unknown, 07/31/16) Objective Vital Signs Last 24 Hour Vital Signs Date Time Temp Pulse Resp B/P (MAP) Pulse Ox O2 Delivery O2 Flow Rate FiO2 04/18/17 11:00 104 29 30 04/18/17 10:47 78 20 98 04/18/17 09:48 83 16 30 04/18/17 09:41 83 04/18/17 07:18 85 21 30 04/18/17 06:00 100 26 131/55 98 Mechanical Ventilator 30 04/18/17 05:28 83 20 30 04/18/17 05:00 84 17 123/52 99 Mechanical Ventilator 30 04/18/17 04:00 88 04/18/17 04:00 98.5 88 18 123/54 99 Mechanical Ventilator 30 04/18/17 04:00 30 04/18/17 03:00 91 25 122/51 99 Mechanical Ventilator 30 04/18/17 02:45 82 18 30 04/18/17 02:00 86 18 123/51 99 Mechanical Ventilator 30 04/18/17 01:00 89 20 122/54 97 Mechanical Ventilator 30 04/18/17 00:47 94 22 30 04/18/17 00:00 98.4 91 22 122/54 100 Mechanical Ventilator 30 04/18/17 00:00 30 04/18/17 00:00 91 04/17/17 23:15 93 23 30 04/17/17 23:00 87 20 122/50 100 Mechanical Ventilator 30 04/17/17 22:00 93 24 120/56 99 Mechanical Ventilator 30 04/17/17 21:25 94 25 30 04/17/17 21:00 89 22 120/48 99 Mechanical Ventilator 30 04/17/17 20:00 83 18 103/41 96 Mechanical Ventilator 30 04/17/17 20:00 30 04/17/17 20:00 83 04/17/17 19:05 88 20 30 04/17/17 19:00 98.7 87 22 119/45 98 Mechanical Ventilator 30 04/17/17 18:21 98 20 99 04/17/17 16:56 30 04/17/17 16:41 104 22 50 04/17/17 16:00 101 04/17/17 16:00 99.0 94 22 117/70 97 Mechanical Ventilator 50 04/17/17 16:00 50 04/17/17 15:30 50 04/17/17 15:01 82 19 30 04/17/17 15:00 85 18 96/34 100 Mechanical Ventilator 30 04/17/17 14:00 81 19 96/34 100 Mechanical Ventilator 30 04/17/17 13:03 104 20 30 04/17/17 13:00 94 23 108/56 100 Mechanical Ventilator 30 04/17/17 12:00 35 04/17/17 12:00 92 04/17/17 12:00 98.9 89 21 98/41 100 Mechanical Ventilator 30 Height (Feet): 5 Weight (Pounds): 130 HEENT: status post trach Respiratory/Chest: lungs clear Cardiovascular: normal rate, regular rhythm, no gallop/murmur Abdomen: soft, non tender, other - GT Extremities: no edema, other - right arm PICC Laboratory Tests Test 04/17/17 11:40 04/18/17 04:00 White Blood Count 13.5 K/UL (4.8-10.8) H 11.8 K/UL (4.8-10.8) H Red Blood Count 3.68 M/UL (4.20-5.40) L 3.12 M/UL (4.20-5.40) L Hemoglobin 11.0 G/DL (12.0-16.0) L 9.5 G/DL (12.0-16.0) L Hematocrit 33.3 % (37.0-47.0) L 28.5 % (37.0-47.0) L Mean Corpuscular Volume 90 FL (80-99) 91 FL (80-99) Mean Corpuscular Hemoglobin 30.0 PG (27.0-31.0) 30.4 PG (27.0-31.0) Mean Corpuscular Hemoglobin Concent 33.2 G/DL (32.0-36.0) 33.3 G/DL (32.0-36.0) Red Cell Distribution Width 13.5 % (11.6-14.8) 13.7 % (11.6-14.8) Platelet Count 202 K/UL (150-450) 191 K/UL (150-450) Mean Platelet Volume 6.4 FL (6.5-10.1) L 6.7 FL (6.5-10.1) Neutrophils (%) (Auto) 77.8 % (45.0-75.0) H 74.9 % (45.0-75.0) Lymphocytes (%) (Auto) 7.9 % (20.0-45.0) L 13.0 % (20.0-45.0) L Monocytes (%) (Auto) 11.8 % (1.0-10.0) H 8.6 % (1.0-10.0) Eosinophils (%) (Auto) 1.6 % (0.0-3.0) 2.5 % (0.0-3.0) Basophils (%) (Auto) 0.8 % (0.0-2.0) 1.0 % (0.0-2.0) Sodium Level 145 MMOL/L (136-145) 145 MMOL/L (136-145) Potassium Level 3.2 MMOL/L (3.5-5.1) L 2.9 MMOL/L (3.5-5.1) L Chloride Level 111 MMOL/L (98-107) H 112 MMOL/L (98-107) H Carbon Dioxide Level 29 MMOL/L (21-32) 29 MMOL/L (21-32) Anion Gap 5 mmol/L (5-15) 4 mmol/L (5-15) L Blood Urea Nitrogen 21 mg/dL (7-18) H 11 mg/dL (7-18) Creatinine 0.6 MG/DL (0.55-1.30) 0.5 MG/DL (0.55-1.30) L Estimat Glomerular Filtration Rate mL/min (>60) mL/min (>60) Glucose Level 113 MG/DL (74-106) H 109 MG/DL (74-106) H Calcium Level 8.0 MG/DL (8.5-10.1) L 8.1 MG/DL (8.5-10.1) L Total Bilirubin 0.4 MG/DL (0.2-1.0) 0.3 MG/DL (0.2-1.0) Aspartate Amino Transf (AST/SGOT) 23 U/L (15-37) 23 U/L (15-37) Alanine Aminotransferase (ALT/SGPT) 11 U/L (12-78) L 11 U/L (12-78) L Alkaline Phosphatase 52 U/L (46-116) 47 U/L (46-116) Total Protein 5.5 G/DL (6.4-8.2) L 5.1 G/DL (6.4-8.2) L Albumin 2.0 G/DL (3.4-5.0) L 1.8 G/DL (3.4-5.0) L Globulin 3.5 g/dL 3.3 g/dL Albumin/Globulin Ratio 0.6 (1.0-2.7) L 0.5 (1.0-2.7) L Phosphorus Level 2.2 MG/DL (2.5-4.9) L Magnesium Level 2.3 MG/DL (1.8-2.4) MARA BLOCK Apr 18, 2017 11:31
[2017-04-18] MEDS ORDERED: Pantoprazole Inj ONE (12:54)
[2017-04-18] MEDS: Dyna-Hex 2% Top Sol 2oz TOPIC SCH (20:31)
--- NOTE | 2017-04-18 20:48 | General Progress Note ---
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 - anemia Recommendations - resume feeds - BID PPI and q6 carafate - daily CBC - transfuse PRN - await transfer to [facility] for ? IR embolization or noodle endoscopy Subjective Allergies: Coded Allergies: PENICILLINS (Verified Allergy, Unknown, 07/31/16) Subjective Above noted no further GI bleed d/w hospital staff pharmacist Objective Last 24 Hour Vital Signs Date Time Temp Pulse Resp B/P (MAP) Pulse Ox O2 Delivery O2 Flow Rate FiO2 04/18/17 19:12 91 27 30 04/18/17 19:00 81 25 118/51 96 Mechanical Ventilator 30 04/18/17 18:00 77 24 110/42 99 Mechanical Ventilator 30 04/18/17 17:00 84 24 109/52 100 Mechanical Ventilator 30 04/18/17 16:51 70 27 30 04/18/17 16:00 78 04/18/17 16:00 97.6 77 23 114/55 99 Mechanical Ventilator 30 04/18/17 16:00 30 04/18/17 15:19 99 24 30 04/18/17 15:00 80 25 112/67 99 Mechanical Ventilator 30 04/18/17 14:00 77 22 119/53 100 Mechanical Ventilator 30 04/18/17 13:29 85 25 30 04/18/17 13:00 86 19 118/56 100 Mechanical Ventilator 30 04/18/17 12:00 30 04/18/17 12:00 85 04/18/17 12:00 98.2 79 22 128/55 100 Mechanical Ventilator 30 04/18/17 11:00 85 25 127/68 100 Mechanical Ventilator 30 04/18/17 11:00 104 29 30 04/18/17 10:47 78 20 98 04/18/17 10:00 87 20 122/65 100 Mechanical Ventilator 30 04/18/17 09:48 83 16 30 04/18/17 09:41 83 04/18/17 09:00 81 17 128/56 100 Mechanical Ventilator 30 04/18/17 08:00 97.8 84 20 126/61 99 Mechanical Ventilator 30 04/18/17 08:00 85 04/18/17 08:00 30 04/18/17 07:18 85 21 30 04/18/17 07:00 90 24 122/47 100 Mechanical Ventilator 30 04/18/17 06:00 100 26 131/55 98 Mechanical Ventilator 30 04/18/17 05:28 83 20 30 04/18/17 05:00 84 17 123/52 99 Mechanical Ventilator 30 04/18/17 04:00 88 04/18/17 04:00 98.5 88 18 123/54 99 Mechanical Ventilator 30 04/18/17 04:00 30 04/18/17 03:00 91 25 122/51 99 Mechanical Ventilator 30 04/18/17 02:45 82 18 30 04/18/17 02:00 86 18 123/51 99 Mechanical Ventilator 30 04/18/17 01:00 89 20 122/54 97 Mechanical Ventilator 30 04/18/17 00:47 94 22 30 04/18/17 00:00 98.4 91 22 122/54 100 Mechanical Ventilator 30 04/18/17 00:00 30 04/18/17 00:00 91 04/17/17 23:15 93 23 30 04/17/17 23:00 87 20 122/50 100 Mechanical Ventilator 30 04/17/17 22:00 93 24 120/56 99 Mechanical Ventilator 30 04/17/17 21:25 94 25 30 04/17/17 21:00 89 22 120/48 99 Mechanical Ventilator 30 Intake and Output 04/18/17 04/19/17 19:00 07:00 Intake Total 1402.5 ml Output Total 600 ml Balance 802.5 ml Intake Free Water 100 ml IV Total 762.5 ml Tube Feeding 480 ml Other 60 ml Output Urine Total 600 ml # Bowel Movements 1 Laboratory Tests 04/18/17 04:00: White Blood Count 11.8H, Red Blood Count 3.12L, Hemoglobin 9.5L, Hematocrit 28.5L, Mean Corpuscular Volume 91, Mean Corpuscular Hemoglobin 30.4, Mean Corpuscular Hemoglobin Concent 33.3, Red Cell Distribution Width 13.7, Platelet Count 191, Mean Platelet Volume 6.7, Neutrophils (%) (Auto) 74.9, Lymphocytes (% ) (Auto) 13.0L, Monocytes (%) (Auto) 8.6, Eosinophils (%) (Auto) 2.5, Basophils (%) (Auto) 1.0, Sodium Level 145, Potassium Level 2.9L, Chloride Level 112H, Carbon Dioxide Level 29, Anion Gap 4L, Blood Urea Nitrogen 11, Creatinine 0.5L, Estimat Glomerular Filtration Rate , Glucose Level 109H, Calcium Level 8.1L, Phosphorus Level 2.2L, Magnesium Level 2.3, Total Bilirubin 0.3, Aspartate Amino Transf (AST/SGOT) 23, Alanine Aminotransferase (ALT/SGPT) 11L, Alkaline Phosphatase 47, Total Protein 5.1L, Albumin 1.8L, Globulin 3.3, Albumin/ Globulin Ratio 0.5L Height (Feet): 5 Weight (Pounds): 130 Objective Debilitated elderly Woman NCAT Neck stiff from XRT, (+) trach coarse BS RR abd soft, ND, (+) GT no edema calm / NAD BIN MYERS Apr 18, 2017 20:48
[2017-04-19] VITALS (14 sets, daily range): BP systolic 97–155; BP diastolic 33–76
--- NOTE | 2017-04-19 02:15 | Progress Note ---
DATE: 04/18/2017 CARDIOLOGY PROGRESS NOTE SUBJECTIVE: The patient has no new bleeding. OBJECTIVE: VITAL SIGNS: Blood pressure 118/51, heart rate 81, respiratory rate 25. NECK: Supple. Trach site with thin secretions. LUNGS: Clear. CARDIAC: Regular normal S1, S2. ABDOMEN: Soft. G-tube intact. EXTREMITIES: No edema. IMPRESSION: 1. Gastrointestinal bleed seems to have resolved. Feedings have been resumed. Anemia is persistent due to bleeding and hemoglobin and anemia and hemoglobin is being followed regularly with transfusions on a p.r.n. basis. 2. Paroxysmal atrial fibrillation and supraventricular tachycardia, now with stable cardiac rhythm. Autonomic dysfunction is stable. Blood pressure on midodrine support. 3. Head and neck cancer. 4. Ventilator-dependent respiratory failure. Therapy in place. No change in current cardiovascular drugs. Chi Bhatti M.D. DR: Chele JOB#: [id number] CC:
[2017-04-19] MEDS: Sucralfate 1gm tab GT SCH ×4 (05:48→23:23)
[2017-04-19] MEDS: Pantoprazole 80 MG in NS 250 ML IV SCH (07:51)
--- NOTE | 2017-04-19 07:55 | Pulmonology Progress Note ---
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 GT, trach, anemia, possible GIB; s/p transfusion hypoxemia, failure to thrive PLAN no change from pulmonary standpoint possible transfer to [facility] for embolization respiratory care as is- not change for now soft tip catheter for home use- son aware Ventilatory support as is; reviewed setting and stable supportive care as outlined and monitor for change suction with caution and monitor for bleeding no wean planned at present oxygen therapy noted care noted; gi reviewed prognosis poor avoid excessive suctioning with concern for bleeding medications/laboratory data/nursing notes reviewed in detail note reviewed and edited care discussed with RN and RT agree with dc planning medications/laboratory data/nursing notes/ICU care reviewed in detail note reviewed and edited care discussed with RN and RT ICU time spent 35 minutes Subjective ROS Limited/Unobtainable: Yes Allergies: Coded Allergies: PENICILLINS (Verified Allergy, Unknown, 07/31/16) Subjective on the vent care noted and discussed events noted stable overall overnight resting on the ventilator possible t/f to [facility] Objective Last 24 Hour Vital Signs Date Time Temp Pulse Resp B/P (MAP) Pulse Ox O2 Delivery O2 Flow Rate FiO2 04/19/17 07:18 84 21 30 04/19/17 07:00 80 21 100/41 100 Mechanical Ventilator 30 04/19/17 06:00 81 21 99/43 100 Mechanical Ventilator 30 04/19/17 05:14 81 23 30 04/19/17 05:00 80 21 102/40 100 Mechanical Ventilator 30 04/19/17 04:00 97.8 82 21 103/72 100 Mechanical Ventilator 30 04/19/17 04:00 98 04/19/17 04:00 30 04/19/17 03:01 85 25 30 04/19/17 03:00 87 23 127/52 100 Mechanical Ventilator 30 04/19/17 02:00 86 23 155/65 98 Mechanical Ventilator 30 04/19/17 01:04 81 24 30 04/19/17 01:00 84 25 145/67 98 Mechanical Ventilator 30 04/19/17 00:00 30 04/19/17 00:00 86 04/19/17 00:00 85 24 153/76 100 Mechanical Ventilator 30 04/18/17 23:11 85 26 30 04/18/17 23:00 98.0 83 24 143/74 100 Mechanical Ventilator 30 04/18/17 22:00 83 26 116/42 100 Mechanical Ventilator 30 04/18/17 21:11 86 26 30 04/18/17 21:00 84 26 124/53 100 Mechanical Ventilator 30 04/18/17 20:00 98.0 87 27 127/50 100 Mechanical Ventilator 30 04/18/17 20:00 30 04/18/17 20:00 81 04/18/17 19:12 91 27 30 04/18/17 19:00 81 25 118/51 96 Mechanical Ventilator 30 04/18/17 18:00 77 24 110/42 99 Mechanical Ventilator 30 04/18/17 17:00 84 24 109/52 100 Mechanical Ventilator 30 04/18/17 16:51 70 27 30 04/18/17 16:00 78 04/18/17 16:00 97.6 77 23 114/55 99 Mechanical Ventilator 30 04/18/17 16:00 30 04/18/17 15:19 99 24 30 04/18/17 15:00 80 25 112/67 99 Mechanical Ventilator 30 04/18/17 14:00 77 22 119/53 100 Mechanical Ventilator 30 04/18/17 13:29 85 25 30 04/18/17 13:00 86 19 118/56 100 Mechanical Ventilator 30 04/18/17 12:00 30 04/18/17 12:00 85 04/18/17 12:00 98.2 79 22 128/55 100 Mechanical Ventilator 30 04/18/17 11:00 85 25 127/68 100 Mechanical Ventilator 30 04/18/17 11:00 104 29 30 04/18/17 10:47 78 20 98 04/18/17 10:00 87 20 122/65 100 Mechanical Ventilator 30 04/18/17 09:48 83 16 30 04/18/17 09:41 83 04/18/17 09:00 81 17 128/56 100 Mechanical Ventilator 30 04/18/17 08:00 97.8 84 20 126/61 99 Mechanical Ventilator 30 04/18/17 08:00 85 04/18/17 08:00 30 Objective WDWN NAD trach reduced breath sounds bilaterally with occasional rhonchi [id number] without MRG NABS nontender no HSM; GT; no distention no CC mild edema and same weak with reduced ROM nonfocal skin exam noted Current Medications Medications (Trade) Dose Ordered Sig/Josiah Route PRN Reason Start Time Stop Time Status Last Admin Dose Admin Amitriptyline HCl (Elavil) 10 mg BEDTIME GT 04/16/17 21:00 05/08/17 20:59 04/18/17 20:31 Chlorhexidine Gluconate (Cathy-Hex 2%) 1 applic DAILY@2000 TOPIC 04/16/17 20:00 05/12/17 19:59 04/18/17 20:31 Digoxin (Lanoxin) 0.125 mg DAILY GT 04/17/17 09:00 05/08/17 08:59 04/18/17 09:41 Levetiracetam (Keppra) 500 mg Q12HR GT 04/16/17 21:00 05/16/17 20:59 04/18/17 20:31 Levothyroxine Sodium (Synthroid) 150 mcg ACBREAKFAST GT 04/17/17 06:30 05/08/17 06:29 04/19/17 05:48 Midodrine (Pro-Amatine) 10 mg THREE TIMES A DAY GT 04/17/17 09:00 05/08/17 08:59 04/18/17 18:01 Multivitamins (Multivitamins W/ Minerals 15ml Liquid) 15 ml DAILY GT 04/17/17 09:00 05/08/17 08:59 04/18/17 09:41 Ondansetron HCl (Zofran) 4 mg Q4H PRN IVP Nausea & Vomiting 04/16/17 21:00 05/16/17 20:59 Pantoprazole 80 mg/Sodium Chloride 250 ml @ 25 mls/hr Q10H IV 04/16/17 20:00 05/16/17 19:59 04/19/17 07:51 Sucralfate (Carafate) 1 gm EVERY 6 HOURS GT 04/17/17 00:00 05/12/17 00:00 04/19/17 05:48 MARCY MAJOR Apr 19, 2017 07:54
--- NOTE | 2017-04-19 08:04 | General Progress Note ---
Assessment/Plan Problem List: (1) new onset of generalised seizure activity (2) Acute GI hemorrhage ICD Codes: K92.2 - Gastrointestinal hemorrhage, unspecified SNOMED: 23039274 (3) Tongue malignant neoplasm ICD Codes: C02.9 - Malignant neoplasm of tongue, unspecified SNOMED: 091849399 (4) Lung nodule seen on imaging study ICD Codes: R91.1 - Solitary pulmonary nodule SNOMED: 389743177 Status: stable, progressing Assessment/Plan serial cbc ppi transfuse prn monitor for further bleeding vent resp rx suctioning abx still waiting for bed at [facility] transfer when bed available Subjective ROS Limited/Unobtainable: No Constitutional: Reports: malaise, weakness HEENT: Reports: no symptoms Cardiovascular: Reports: no symptoms Respiratory: Reports: sputum Gastrointestinal/Abdominal: Reports: difficulty swallowing Genitourinary: Reports: no symptoms Neurologic/Psychiatric: Reports: pre-existing deficit Endocrine: Reports: no symptoms Hematologic/Lymphatic: Reports: anemia Allergies: Coded Allergies: PENICILLINS (Verified Allergy, Unknown, 07/31/16) All Systems: reviewed and negative except above Subjective no further bleeding noted. decrease h/h. on the vent. responds to verbal stimuli and commands. d/w [facility]. they have accepted pt but cannot assign bed until pt is out of the icu Objective Last 24 Hour Vital Signs Date Time Temp Pulse Resp B/P (MAP) Pulse Ox O2 Delivery O2 Flow Rate FiO2 04/19/17 07:18 84 21 30 04/19/17 07:00 80 21 100/41 100 Mechanical Ventilator 30 04/19/17 06:00 81 21 99/43 100 Mechanical Ventilator 30 04/19/17 05:14 81 23 30 04/19/17 05:00 80 21 102/40 100 Mechanical Ventilator 30 04/19/17 04:00 97.8 82 21 103/72 100 Mechanical Ventilator 30 04/19/17 04:00 98 04/19/17 04:00 30 04/19/17 03:01 85 25 30 04/19/17 03:00 87 23 127/52 100 Mechanical Ventilator 30 04/19/17 02:00 86 23 155/65 98 Mechanical Ventilator 30 04/19/17 01:04 81 24 30 04/19/17 01:00 84 25 145/67 98 Mechanical Ventilator 30 04/19/17 00:00 30 04/19/17 00:00 86 1116/17 00:00 85 24 153/76 100 Mechanical Ventilator 30 04/18/17 23:11 85 26 30 04/18/17 23:00 98.0 83 24 143/74 100 Mechanical Ventilator 30 04/18/17 22:00 83 26 116/42 100 Mechanical Ventilator 30 04/18/17 21:11 86 26 30 04/18/17 21:00 84 26 124/53 100 Mechanical Ventilator 30 04/18/17 20:00 98.0 87 27 127/50 100 Mechanical Ventilator 30 04/18/17 20:00 30 04/18/17 20:00 81 04/18/17 19:12 91 27 30 04/18/17 19:00 81 25 118/51 96 Mechanical Ventilator 30 04/18/17 18:00 77 24 110/42 99 Mechanical Ventilator 30 04/18/17 17:00 84 24 109/52 100 Mechanical Ventilator 30 04/18/17 16:51 70 27 30 04/18/17 16:00 78 04/18/17 16:00 97.6 77 23 114/55 99 Mechanical Ventilator 30 04/18/17 16:00 30 04/18/17 15:19 99 24 30 04/18/17 15:00 80 25 112/67 99 Mechanical Ventilator 30 04/18/17 14:00 77 22 119/53 100 Mechanical Ventilator 30 04/18/17 13:29 85 25 30 04/18/17 13:00 86 19 118/56 100 Mechanical Ventilator 30 04/18/17 12:00 30 04/18/17 12:00 85 04/18/17 12:00 98.2 79 22 128/55 100 Mechanical Ventilator 30 04/18/17 11:00 85 25 127/68 100 Mechanical Ventilator 30 04/18/17 11:00 104 29 30 04/18/17 10:47 78 20 98 04/18/17 10:00 87 20 122/65 100 Mechanical Ventilator 30 04/18/17 09:48 83 16 30 04/18/17 09:41 83 04/18/17 09:00 81 17 128/56 100 Mechanical Ventilator 30 Height (Feet): 5 Weight (Pounds): 153 Objective GENERAL: The patient is a well-developed thin female, in no apparent distress, on the vent. She is arousable. NECK: Supple. Trachea is midline. There is no discharge. HEART: Regular rate and rhythm. LUNGS: Clear. ABDOMEN: Soft, nontender, and nondistended. EXTREMITIES: Without clubbing, cyanosis, or edema. CHRISTINA HAMMOND Apr 19, 2017 08:04
[2017-04-19] MEDS: Multivitamins W/Minerals 15 ML UDC GT SCH (09:05)
[2017-04-19] MEDS: Midodrine 10mg tab GT SCH ×3 (09:05→18:24)
[2017-04-19] MEDS: levETIRAcetam 500mg/5ml Liquid GT SCH ×2 (09:06→20:43)
[2017-04-19] MEDS: Digoxin Elixir 0.125mg GT SCH (09:06)
[2017-04-19 09:09] LABS: BASOPHILS % (AUTO) 0.7 % (0.0-2.0); EOSINOPHILS % (AUTO) 3.5 % (0.0-3.0); LYMPHOCYTES % (AUTO) 10.4 % (20.0-45.0); MEAN CORPUSCULAR VOLUME 91 FL (80-99); MEAN PLATELET VOLUME 6.7 FL (6.5-10.1); MONOCYTES % (AUTO) 9.6 % (1.0-10.0); NEUTROPHILS % (AUTO) 75.7 % (45.0-75.0); PLATELET COUNT 214 K/UL (150-450); RED BLOOD COUNT 2.83 M/UL (4.20-5.40); RED CELL DISTRIBUTION WIDTH 13.6 % (11.6-14.8); WHITE BLOOD COUNT 10.1 K/UL (4.8-10.8)
[2017-04-19 09:24] LABS: ALANINE AMINOTRANSFERASE 10 U/L (12-78); ALBUMIN/GLOBULIN RATIO 0.5 (1.0-2.7); ANION GAP 1 mmol/L (5-15); ASPARTATE AMINO TRANSFERASE 15 U/L (15-37); CARBON DIOXIDE 31 MMOL/L (21-32); CHLORIDE 109 MMOL/L (98-107); CREATININE 0.4 MG/DL (0.55-1.30); POTASSIUM 3.9 MMOL/L (3.5-5.1); SODIUM 141 MMOL/L (136-145); TOTAL PROTEIN 4.8 G/DL (6.4-8.2)
--- NOTE | 2017-04-19 10:42 | General Progress Note ---
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 - anemia Recommendations - continue feeds - BID PPI and q6 carafate - daily CBC - transfuse PRN - await transfer to [facility] for ? 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 Objective Last 24 Hour Vital Signs Date Time Temp Pulse Resp B/P (MAP) Pulse Ox O2 Delivery O2 Flow Rate FiO2 04/19/17 09:06 86 04/19/17 09:00 81 20 104/47 100 Mechanical Ventilator 30 04/19/17 08:50 96 25 30 04/19/17 08:00 30 04/19/17 08:00 98.3 87 20 97/33 100 Mechanical Ventilator 30 04/19/17 08:00 81 04/19/17 07:18 84 21 30 04/19/17 07:00 80 21 100/41 100 Mechanical Ventilator 30 04/19/17 06:00 81 21 99/43 100 Mechanical Ventilator 30 04/19/17 05:14 81 23 30 04/19/17 05:00 80 21 102/40 100 Mechanical Ventilator 30 04/19/17 04:00 97.8 82 21 103/72 100 Mechanical Ventilator 30 04/19/17 04:00 98 04/19/17 04:00 30 04/19/17 03:01 85 25 30 04/19/17 03:00 87 23 127/52 100 Mechanical Ventilator 30 04/19/17 02:00 86 23 155/65 98 Mechanical Ventilator 30 04/19/17 01:04 81 24 30 04/19/17 01:00 84 25 145/67 98 Mechanical Ventilator 30 04/19/17 00:00 30 04/19/17 00:00 86 04/19/17 00:00 85 24 153/76 100 Mechanical Ventilator 30 04/18/17 23:11 85 26 30 04/18/17 23:00 98.0 83 24 143/74 100 Mechanical Ventilator 30 04/18/17 22:00 83 26 116/42 100 Mechanical Ventilator 30 04/18/17 21:11 86 26 30 04/18/17 21:00 84 26 124/53 100 Mechanical Ventilator 30 04/18/17 20:00 98.0 87 27 127/50 100 Mechanical Ventilator 30 04/18/17 20:00 30 04/18/17 20:00 81 04/18/17 19:12 91 27 30 04/18/17 19:00 81 25 118/51 96 Mechanical Ventilator 30 04/18/17 18:00 77 24 110/42 99 Mechanical Ventilator 30 04/18/17 17:00 84 24 109/52 100 Mechanical Ventilator 30 04/18/17 16:51 70 27 30 04/18/17 16:00 78 04/18/17 16:00 97.6 77 23 114/55 99 Mechanical Ventilator 30 04/18/17 16:00 30 04/18/17 15:19 99 24 30 04/18/17 15:00 80 25 112/67 99 Mechanical Ventilator 30 04/18/17 14:00 77 22 119/53 100 Mechanical Ventilator 30 04/18/17 13:29 85 25 30 04/18/17 13:00 86 19 118/56 100 Mechanical Ventilator 30 04/18/17 12:00 30 04/18/17 12:00 85 04/18/17 12:00 98.2 79 22 128/55 100 Mechanical Ventilator 30 04/18/17 11:00 85 25 127/68 100 Mechanical Ventilator 30 04/18/17 11:00 104 29 30 04/18/17 10:47 78 20 98 Intake and Output 04/19/17 04/20/17 19:00 07:00 Intake Total 105 ml Balance 105 ml IV Total 25 ml Tube Feeding 80 ml Laboratory Tests 04/19/17 08:45: White Blood Count 10.1, Red Blood Count 2.83L, Hemoglobin 8.8L, Hematocrit 25.8L , Mean Corpuscular Volume 91, Mean Corpuscular Hemoglobin 31.0, Mean Corpuscular Hemoglobin Concent 34.0, Red Cell Distribution Width 13.6, Platelet Count 214, Mean Platelet Volume 6.7, Neutrophils (%) (Auto) 75.7H, Lymphocytes ( %) (Auto) 10.4L, Monocytes (%) (Auto) 9.6, Eosinophils (%) (Auto) 3.5H, Basophils (%) (Auto) 0.7, Sodium Level 141, Potassium Level 3.9, Chloride Level 109H, Carbon Dioxide Level 31, Anion Gap 1L, Blood Urea Nitrogen 5L, Creatinine 0.4L, Estimat Glomerular Filtration Rate , Glucose Level 107H, Calcium Level 8.0L, Total Bilirubin 0.2, Aspartate Amino Transf (AST/SGOT) 15, Alanine Aminotransferase (ALT/SGPT) 10L, Alkaline Phosphatase 68, Total Protein 4.8L, Albumin 1.6L, Globulin 3.2, Albumin/Globulin Ratio 0.5L Height (Feet): 5 Weight (Pounds): 153 Objective Debilitated elderly Woman NCAT Neck stiff from XRT, (+) trach coarse BS RR abd soft, ND, (+) GT no edema calm / NAD BIN MYERS Apr 19, 2017 10:42
--- NOTE | 2017-04-19 11:08 | Infectious Diseases Prog Note ---
Assessment/Plan Assessment/Plan A: 1. pseudomonas pneumonia s/p Rx 2. respiratory failure 3. leucocytosis improving 4. MRSA nasal colonization 5. head and neck cancer 6. GI bleeding P 1. Observe off antibiotic Subjective ROS Limited/Unobtainable: Yes Respiratory: Reports: no symptoms Allergies: Coded Allergies: PENICILLINS (Verified Allergy, Unknown, 07/31/16) Objective Vital Signs Last 24 Hour Vital Signs Date Time Temp Pulse Resp B/P (MAP) Pulse Ox O2 Delivery O2 Flow Rate FiO2 04/19/17 10:00 82 21 120/58 100 Mechanical Ventilator 30 04/19/17 09:06 86 04/19/17 09:00 81 20 104/47 100 Mechanical Ventilator 30 04/19/17 08:50 96 25 30 04/19/17 08:00 30 04/19/17 08:00 98.3 87 20 97/33 100 Mechanical Ventilator 30 04/19/17 08:00 81 04/19/17 07:18 84 21 30 04/19/17 07:00 80 21 100/41 100 Mechanical Ventilator 30 04/19/17 06:00 81 21 99/43 100 Mechanical Ventilator 30 04/19/17 05:14 81 23 30 04/19/17 05:00 80 21 102/40 100 Mechanical Ventilator 30 04/19/17 04:00 97.8 82 21 103/72 100 Mechanical Ventilator 30 04/19/17 04:00 98 04/19/17 04:00 30 04/19/17 03:01 85 25 30 04/19/17 03:00 87 23 127/52 100 Mechanical Ventilator 30 04/19/17 02:00 86 23 155/65 98 Mechanical Ventilator 30 04/19/17 01:04 81 24 30 04/19/17 01:00 84 25 145/67 98 Mechanical Ventilator 30 04/19/17 00:00 30 04/19/17 00:00 86 04/19/17 00:00 85 24 153/76 100 Mechanical Ventilator 30 04/18/17 23:11 85 26 30 04/18/17 23:00 98.0 83 24 143/74 100 Mechanical Ventilator 30 04/18/17 22:00 83 26 116/42 100 Mechanical Ventilator 30 04/18/17 21:11 86 26 30 04/18/17 21:00 84 26 124/53 100 Mechanical Ventilator 30 04/18/17 20:00 98.0 87 27 127/50 100 Mechanical Ventilator 30 04/18/17 20:00 30 04/18/17 20:00 81 04/18/17 19:12 91 27 30 04/18/17 19:00 81 25 118/51 96 Mechanical Ventilator 30 04/18/17 18:00 77 24 110/42 99 Mechanical Ventilator 30 04/18/17 17:00 84 24 109/52 100 Mechanical Ventilator 30 04/18/17 16:51 70 27 30 04/18/17 16:00 78 04/18/17 16:00 97.6 77 23 114/55 99 Mechanical Ventilator 30 04/18/17 16:00 30 04/18/17 15:19 99 24 30 04/18/17 15:00 80 25 112/67 99 Mechanical Ventilator 30 04/18/17 14:00 77 22 119/53 100 Mechanical Ventilator 30 04/18/17 13:29 85 25 30 04/18/17 13:00 86 19 118/56 100 Mechanical Ventilator 30 04/18/17 12:00 30 04/18/17 12:00 85 04/18/17 12:00 98.2 79 22 128/55 100 Mechanical Ventilator 30 Height (Feet): 5 Weight (Pounds): 153 General Appearance: no acute distress HEENT: status post trach Respiratory/Chest: lungs clear, other - on ventilator Cardiovascular: normal rate Abdomen: soft, non tender, other - GT feeding Extremities: no edema, other - R arm PICC line Neurologic/Psychiatric: alert, responsive Laboratory Tests Test 04/19/17 08:45 White Blood Count 10.1 K/UL (4.8-10.8) Red Blood Count 2.83 M/UL (4.20-5.40) L Hemoglobin 8.8 G/DL (12.0-16.0) L Hematocrit 25.8 % (37.0-47.0) L Mean Corpuscular Volume 91 FL (80-99) Mean Corpuscular Hemoglobin 31.0 PG (27.0-31.0) Mean Corpuscular Hemoglobin Concent 34.0 G/DL (32.0-36.0) Red Cell Distribution Width 13.6 % (11.6-14.8) Platelet Count 214 K/UL (150-450) Mean Platelet Volume 6.7 FL (6.5-10.1) Neutrophils (%) (Auto) 75.7 % (45.0-75.0) H Lymphocytes (%) (Auto) 10.4 % (20.0-45.0) L Monocytes (%) (Auto) 9.6 % (1.0-10.0) Eosinophils (%) (Auto) 3.5 % (0.0-3.0) H Basophils (%) (Auto) 0.7 % (0.0-2.0) Sodium Level 141 MMOL/L (136-145) Potassium Level 3.9 MMOL/L (3.5-5.1) Chloride Level 109 MMOL/L (98-107) H Carbon Dioxide Level 31 MMOL/L (21-32) Anion Gap 1 mmol/L (5-15) L Blood Urea Nitrogen 5 mg/dL (7-18) L Creatinine 0.4 MG/DL (0.55-1.30) L Estimat Glomerular Filtration Rate mL/min (>60) Glucose Level 107 MG/DL (74-106) H Calcium Level 8.0 MG/DL (8.5-10.1) L Total Bilirubin 0.2 MG/DL (0.2-1.0) Aspartate Amino Transf (AST/SGOT) 15 U/L (15-37) Alanine Aminotransferase (ALT/SGPT) 10 U/L (12-78) L Alkaline Phosphatase 68 U/L (46-116) Total Protein 4.8 G/DL (6.4-8.2) L Albumin 1.6 G/DL (3.4-5.0) L Globulin 3.2 g/dL Albumin/Globulin Ratio 0.5 (1.0-2.7) L Current Medications Medications (Trade) Dose Ordered Sig/Josiah Route PRN Reason Start Time Stop Time Status Last Admin Dose Admin Amitriptyline HCl (Elavil) 10 mg BEDTIME GT 04/19/17 21:00 05/08/17 20:59 Chlorhexidine Gluconate (Cathy-Hex 2%) 1 applic DAILY@1999 TOPIC 04/19/17 20:00 05/12/17 19:59 Digoxin (Lanoxin) 0.125 mg DAILY GT 04/20/17 09:00 05/08/17 08:59 Levetiracetam (Keppra) 500 mg Q12HR GT 04/19/17 21:00 05/16/17 20:59 Levothyroxine Sodium (Synthroid) 150 mcg ACBREAKFAST GT 04/20/17 06:30 05/08/17 06:29 Midodrine (Pro-Amatine) 10 mg THREE TIMES A DAY GT 04/19/17 13:00 05/08/17 08:59 Multivitamins (Multivitamins W/ Minerals 15ml Liquid) 15 ml DAILY GT 04/20/17 09:00 05/08/17 08:59 Ondansetron HCl (Zofran) 4 mg Q4H PRN IVP Nausea & Vomiting 04/19/17 11:00 05/16/17 10:59 Pantoprazole 80 mg/Sodium Chloride 250 ml @ 25 mls/hr Q10H IV 04/19/17 10:45 05/16/17 19:59 UNV Sucralfate (Carafate) 1 gm EVERY 6 HOURS GT 04/19/17 12:00 05/12/17 00:00 JENNIFER MCKEE Apr 19, 2017 11:08
[2017-04-19] MEDS ORDERED: Pantoprazole 80 MG in NS 250 ML IV SCH (12:00)
[2017-04-19] MEDS ORDERED: Tubing Blood Filter IV ONE (15:09)
[2017-04-19] MEDS ORDERED: NS 275ml ONE ×2 (15:09→15:14)
[2017-04-19] MEDS ORDERED: Tubing IV Secondary IV ONE (15:14)
[2017-04-19] MEDS ORDERED: NS Irrig 1000ml ONE (15:14)
[2017-04-19] MEDS: Dyna-Hex 2% Top Sol 2oz TOPIC SCH (20:43)
--- NOTE | 2017-04-19 21:15 | Progress Note ---
DATE: 04/14/2017 CARDIOLOGY PROGRESS NOTE SUBJECTIVE: The patient's blood pressure parameters remain at baseline. She is on midodrine for chronic support. She has not had any new bleeding for the past two days. EGD was unsuccessful. The patient is tolerating feedings. OBJECTIVE: VITAL SIGNS: Blood pressure 104/47, pulse 81, and respiratory rate 20. NECK: Thin trach secretions. LUNGS: Bilateral breath sounds. HEART: Regular rhythm and rate. Normal S1 and S2. ABDOMEN: Soft. G-tube intact. EXTREMITIES: No edema. LABORATORY DATA: White count 10, hemoglobin 8.8, and platelet count 214,000. IMPRESSION: 1. Gastrointestinal bleed. 2. Chronic respiratory failure. 3. Head and neck cancer. 4. Anemia. 5. Severe protein-calorie malnutrition. 6. Autonomic dysfunction with chronic hypotension. 7. Paroxysmal atrial fibrillation. 8. Chronic diastolic congestive heart failure. PLAN: 1. Monitoring hemoglobin. 2. Maintenance hydration until G-tube feedings maximize. 3. Continue digitalis for prophylaxis. 4. Maintain midodrine support. Chi Bhatti M.D. DR: MADAN JOB#: [id number] CC:
[2017-04-20] VITALS: BP 137/61
--- NOTE | 2017-04-20 03:30 | Discharge Summary ---
DATE OF ADMISSION: 04/07/2017 TRANSFER SUMMARY HISTORY: The patient is a pleasant, but unfortunate 81-year-old female. She has a history of head and neck cancer, chronic respiratory failure, and dysphagia. She has a trach and a G-tube. She presented from home with complaints of rectal bleeding. According to the family members, she had several episodes of melena. Upon evaluation in the emergency room, the patient's hemoglobin was 7.5. She was admitted. She was transfused with several units of packed red blood cells. She was started on a proton pump inhibitor. Her vital signs remained stable. 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 The patient was treated conservatively with IV proton pump inhibitors and Carafate. She had two ensuing episodes of active gastrointestinal bleeding characterized by bright red blood per rectum, melena, and some hematemesis. Both of those episodes required transfer to the intensive care unit with blood cell transfusions. Bleeding seemed to have stopped. Initial bleeding scan done was negative. The patient had a second episode again prompting transfer to the intensive care unit requiring transfusion of several units of packed red blood cells. Melena again resolved after 24 to 36 hours. It was recommended by the endoscopist that the patient be transferred to a higher level of care to the center where they have a smaller scope so that the patient could be properly evaluated. PHYSICAL EXAMINATION: VITAL SIGNS: On the patient's transfer exam, temperature was 98, pulse 82, respirations 24, and blood pressure 110/43. GENERAL: The patient is a well-developed female, in no apparent distress. She is easily arousable and is directable. She follows commands. Nods yes and no. NECK: Supple. Trachea is midline. HEART: Regular rate and rhythm. LUNGS: Clear. ABDOMEN: Soft, nontender, and nondistended. G-tube site was clean. EXTREMITIES: Without clubbing or cyanosis. LABORATORY DATA: Recent lab work showed a hemoglobin of 8.8, white count of 10, and platelet count of 214. Sodium 141, potassium 3.9, chloride 109, bicarbonate 31, BUN 5, and creatinine was 0.4. ASSESSMENT: This is a pleasant female with a history of head and neck cancer and chronic respiratory failure, admitted with recurrent gastrointestinal bleed. Attempts at endoscopy has been unsuccessful because of an upper oropharyngeal structure. PLAN: Transfer to [facility] or another tertiary care center for endoscopy. Continue proton pump inhibitor and Carafate. Continue vent support and respiratory treatments. Continue G-tube feeds. Plan of care has been discussed with the patient's son, Zbigniew. Rico Madrigal M.D. DR: LILIANA JOB#: [id number] CC:
[2017-04-20 04:00] VITALS: BP 140/61
[2017-04-20] MEDS: Sucralfate 1gm tab GT SCH ×4 (06:00→23:59)
[2017-04-20 08:00] VITALS: BP 149/62
[2017-04-20] MEDS: Midodrine 10mg tab GT SCH ×3 (08:53→17:42)
[2017-04-20] MEDS: levETIRAcetam 500mg/5ml Liquid GT SCH ×2 (08:53→20:55)
[2017-04-20] MEDS: Multivitamins W/Minerals 15 ML UDC GT SCH (08:53)
[2017-04-20] MEDS: Digoxin Elixir 0.125mg GT SCH (08:53)
[2017-04-20] MEDS: Pantoprazole Inj IVP SCH (08:54)
--- NOTE | 2017-04-20 09:08 | Pulmonology Progress Note ---
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 GT, trach, anemia, possible GIB; s/p transfusion hypoxemia, failure to thrive PLAN no change from pulmonary standpoint respiratory care as is- not change for now soft tip catheter for home use- son aware Ventilatory support as is; reviewed setting and stable supportive care as outlined and monitor for change suction with caution and monitor for bleeding no wean planned at present oxygen therapy noted care noted; gi reviewed prognosis poor medications/laboratory data/nursing notes reviewed in detail note reviewed and edited care discussed with RN and RT agree with dc planning medications/laboratory data/nursing notes reviewed in detail note reviewed and edited care discussed with RN and RT Subjective ROS Limited/Unobtainable: Yes Allergies: Coded Allergies: PENICILLINS (Verified Allergy, Unknown, 07/31/16) Subjective on the vent care noted and discussed events noted remains stable and moved to tele Objective Last 24 Hour Vital Signs Date Time Temp Pulse Resp B/P (MAP) Pulse Ox O2 Delivery O2 Flow Rate FiO2 04/20/17 08:53 87 04/20/17 08:45 91 20 30 04/20/17 08:00 97.3 95 21 149/62 98 04/20/17 08:00 30 04/20/17 06:51 90 22 30 04/20/17 05:29 92 24 30 04/20/17 04:00 30 04/20/17 04:00 109 04/20/17 04:00 98.2 92 22 140/61 98 Mechanical Ventilator 30 04/20/17 03:18 93 22 30 04/20/17 01:00 92 22 30 04/20/17 00:00 30 04/20/17 00:00 99.2 95 22 137/61 98 Mechanical Ventilator 30 04/20/17 00:00 90 04/19/17 23:30 82 22 30 04/19/17 21:28 84 24 30 04/19/17 20:00 99.0 83 27 144/67 99 Mechanical Ventilator 30 04/19/17 20:00 30 04/19/17 20:00 92 04/19/17 19:11 90 25 30 04/19/17 17:12 92 20 30 04/19/17 16:00 93 04/19/17 16:00 98.2 81 24 123/62 99 Mechanical Ventilator 30 04/19/17 16:00 30 04/19/17 14:54 89 26 30 04/19/17 12:54 91 17 30 04/19/17 12:00 97.9 82 24 110/43 99 Mechanical Ventilator 30 04/19/17 12:00 83 04/19/17 12:00 30 04/19/17 11:19 92 18 30 04/19/17 10:00 82 21 120/58 100 Mechanical Ventilator 30 Objective WDWN NAD trach reduced breath sounds bilaterally with occasional rhonchi [id number] without MRG NABS nontender no HSM; GT; no distention no CC mild edema and same weak with reduced ROM nonfocal skin exam noted Current Medications Medications (Trade) Dose Ordered Sig/Josiah Route PRN Reason Start Time Stop Time Status Last Admin Dose Admin Amitriptyline HCl (Elavil) 10 mg BEDTIME GT 04/19/17 21:00 05/08/17 20:59 04/19/17 20:44 Chlorhexidine Gluconate (Cathy-Hex 2%) 1 applic DAILY@1999 TOPIC 04/19/17 20:00 05/12/17 19:59 04/19/17 20:43 Digoxin (Lanoxin) 0.125 mg DAILY GT 04/20/17 09:00 05/08/17 08:59 04/20/17 08:53 Levetiracetam (Keppra) 500 mg Q12HR GT 04/19/17 21:00 05/16/17 20:59 04/20/17 08:53 Levothyroxine Sodium (Synthroid) 150 mcg ACBREAKFAST GT 04/20/17 06:30 05/08/17 06:29 04/20/17 06:00 Midodrine (Pro-Amatine) 10 mg THREE TIMES A DAY GT 04/19/17 13:00 05/08/17 08:59 04/20/17 08:53 Multivitamins (Multivitamins W/ Minerals 15ml Liquid) 15 ml DAILY GT 04/20/17 09:00 05/08/17 08:59 04/20/17 08:53 Ondansetron HCl (Zofran) 4 mg Q4H PRN IVP Nausea & Vomiting 04/19/17 11:00 05/16/17 10:59 Pantoprazole (Protonix) 40 mg DAILY IVP 04/20/17 09:00 05/20/17 08:59 04/20/17 08:54 Sucralfate (Carafate) 1 gm EVERY 6 HOURS GT 04/19/17 12:00 05/12/17 00:00 04/20/17 06:00 MARCY MAJOR Apr 20, 2017 09:07
--- NOTE | 2017-04-20 10:04 | General Progress Note ---
Assessment/Plan Problem List: (1) new onset of generalised seizure activity (2) Acute GI hemorrhage ICD Codes: K92.2 - Gastrointestinal hemorrhage, unspecified SNOMED: 65531160 (3) Tongue malignant neoplasm ICD Codes: C02.9 - Malignant neoplasm of tongue, unspecified SNOMED: 848311347 (4) Lung nodule seen on imaging study ICD Codes: R91.1 - Solitary pulmonary nodule SNOMED: 521566046 Status: stable, progressing Assessment/Plan monitor cbc ppi transfuse prn monitor for further bleeding vent resp rx suctioning abx still waiting for bed at [facility] transfer when bed available Subjective ROS Limited/Unobtainable: No Constitutional: Reports: malaise, weakness HEENT: Reports: no symptoms Cardiovascular: Reports: no symptoms Respiratory: Reports: no symptoms Gastrointestinal/Abdominal: Reports: no symptoms Genitourinary: Reports: no symptoms Neurologic/Psychiatric: Reports: no symptoms Endocrine: Reports: no symptoms Hematologic/Lymphatic: Reports: anemia Allergies: Coded Allergies: PENICILLINS (Verified Allergy, Unknown, 07/31/16) All Systems: reviewed and negative except above Subjective no further bleeding noted. decrease h/h. on the vent. responds to verbal stimuli and commands. d/w [facility] yesterday. pt is accepted. awaiting for bed at [facility] Objective Last 24 Hour Vital Signs Date Time Temp Pulse Resp B/P (MAP) Pulse Ox O2 Delivery O2 Flow Rate FiO2 04/20/17 08:53 87 04/20/17 08:45 91 20 30 04/20/17 08:00 97.3 95 21 149/62 98 04/20/17 08:00 30 04/20/17 06:51 90 22 30 04/20/17 05:29 92 24 30 04/20/17 04:00 30 04/20/17 04:00 109 04/20/17 04:00 98.2 92 22 140/61 98 Mechanical Ventilator 30 04/20/17 03:18 93 22 30 04/20/17 01:00 92 22 30 04/20/17 00:00 30 04/20/17 00:00 99.2 95 22 137/61 98 Mechanical Ventilator 30 04/20/17 00:00 90 04/19/17 23:30 82 22 30 04/19/17 21:28 84 24 30 04/19/17 20:00 99.0 83 27 144/67 99 Mechanical Ventilator 30 04/19/17 20:00 30 04/19/17 20:00 92 04/19/17 19:11 90 25 30 04/19/17 17:12 92 20 30 04/19/17 16:00 93 04/19/17 16:00 98.2 81 24 123/62 99 Mechanical Ventilator 30 04/19/17 16:00 30 04/19/17 14:54 89 26 30 04/19/17 12:54 91 17 30 04/19/17 12:00 97.9 82 24 110/43 99 Mechanical Ventilator 30 04/19/17 12:00 83 04/19/17 12:00 30 04/19/17 11:19 92 18 30 04/19/17 10:00 82 21 120/58 100 Mechanical Ventilator 30 Intake and Output 04/20/17 04/21/17 19:00 07:00 # Bowel Movements 1 Height (Feet): 5 Weight (Pounds): 155 Objective GENERAL: The patient is a well-developed thin female, in no apparent distress, on the vent. She is arousable. NECK: Supple. Trachea is midline. There is no discharge. HEART: Regular rate and rhythm. LUNGS: Clear. ABDOMEN: Soft, nontender, and nondistended. EXTREMITIES: Without clubbing, cyanosis, or edema. CHRISTINA HAMMOND Apr 20, 2017 10:04
[2017-04-20 12:00] VITALS: BP 123/63
--- NOTE | 2017-04-20 13:24 | Infectious Diseases Prog Note ---
Assessment/Plan Assessment/Plan antibiotics : none A 1. pseudomonas pneumonia s/p rx 2. respiratory failure 3. leucocytosis resolved 4. MRSA nasal colonization 5. head and neck cancer P 1. observe off antibiotics Subjective ROS Limited/Unobtainable: Yes Allergies: Coded Allergies: PENICILLINS (Verified Allergy, Unknown, 07/31/16) Objective Vital Signs Last 24 Hour Vital Signs Date Time Temp Pulse Resp B/P (MAP) Pulse Ox O2 Delivery O2 Flow Rate FiO2 04/20/17 12:48 78 19 30 04/20/17 12:00 81 04/20/17 12:00 30 04/20/17 12:00 97.5 80 18 123/63 98 04/20/17 10:42 90 20 30 04/20/17 08:53 87 04/20/17 08:45 91 20 30 04/20/17 08:00 90 04/20/17 08:00 97.3 95 21 149/62 98 04/20/17 08:00 30 04/20/17 06:51 90 22 30 04/20/17 05:29 92 24 30 04/20/17 04:00 30 04/20/17 04:00 109 04/20/17 04:00 98.2 92 22 140/61 98 Mechanical Ventilator 30 04/20/17 03:18 93 22 30 04/20/17 01:00 92 22 30 04/20/17 00:00 30 04/20/17 00:00 99.2 95 22 137/61 98 Mechanical Ventilator 30 04/20/17 00:00 90 04/19/17 23:30 82 22 30 04/19/17 21:28 84 24 30 04/19/17 20:00 99.0 83 27 144/67 99 Mechanical Ventilator 30 04/19/17 20:00 30 04/19/17 20:00 92 04/19/17 19:11 90 25 30 04/19/17 17:12 92 20 30 04/19/17 16:00 93 04/19/17 16:00 98.2 81 24 123/62 99 Mechanical Ventilator 30 04/19/17 16:00 30 04/19/17 14:54 89 26 30 Height (Feet): 5 Weight (Pounds): 155 HEENT: status post trach Respiratory/Chest: lungs clear Cardiovascular: normal rate, regular rhythm, no gallop/murmur Abdomen: soft, non tender, other - GT Extremities: other - + edema, right arm PICC MARA BLOCK Apr 20, 2017 13:24
[2017-04-20 16:00] VITALS: BP 122/50
--- NOTE | 2017-04-20 18:12 | General Progress Note ---
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 - anemia Recommendations - continue feeds - BID PPI and q6 carafate - daily CBC - transfuse PRN - Indication for transfer now less apparent since has stopped bleeding - may need to consider conservative follow up - will order UGI via GT Sunday Subjective Allergies: Coded Allergies: PENICILLINS (Verified Allergy, Unknown, 07/31/16) Subjective Above noted no further GI 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 no beds at [facility] or [facility] Objective Last 24 Hour Vital Signs Date Time Temp Pulse Resp B/P (MAP) Pulse Ox O2 Delivery O2 Flow Rate FiO2 04/20/17 16:39 78 20 30 04/20/17 16:00 97.2 83 23 122/50 99 04/20/17 16:00 30 04/20/17 16:00 89 04/20/17 14:52 82 21 30 04/20/17 12:48 78 19 30 04/20/17 12:00 81 04/20/17 12:00 30 04/20/17 12:00 97.5 80 18 123/63 98 04/20/17 10:42 90 20 30 04/20/17 08:53 87 04/20/17 08:45 91 20 30 04/20/17 08:00 90 04/20/17 08:00 97.3 95 21 149/62 98 04/20/17 08:00 30 04/20/17 06:51 90 22 30 04/20/17 05:29 92 24 30 04/20/17 04:00 30 04/20/17 04:00 109 04/20/17 04:00 98.2 92 22 140/61 98 Mechanical Ventilator 30 04/20/17 03:18 93 22 30 04/20/17 01:00 92 22 30 04/20/17 00:00 30 04/20/17 00:00 99.2 95 22 137/61 98 Mechanical Ventilator 30 04/20/17 00:00 90 04/19/17 23:30 82 22 30 04/19/17 21:28 84 24 30 04/19/17 20:00 99.0 83 27 144/67 99 Mechanical Ventilator 30 04/19/17 20:00 30 04/19/17 20:00 92 04/19/17 19:11 90 25 30 Intake and Output 04/20/17 04/21/17 19:00 07:00 Intake Total 470 ml Output Total 750 ml Balance -280 ml Intake Free Water 30 ml Tube Feeding 360 ml Other 80 ml Output Urine Total 750 ml # Voids 1 # Bowel Movements 2 Height (Feet): 5 Weight (Pounds): 155 Objective Debilitated elderly Woman NCAT Neck stiff from XRT, (+) trach coarse BS RR abd soft, ND, (+) GT no edema calm / NAD BIN MYERS Apr 20, 2017 18:12
[2017-04-20 20:00] VITALS: BP 144/66
[2017-04-20] MEDS: Dyna-Hex 2% Top Sol 2oz TOPIC SCH (20:55)
[2017-04-21] VITALS: BP 135/65
--- NOTE | 2017-04-21 02:46 | Progress Note ---
DATE: 04/20/2017 CARDIOLOGY PROGRESS NOTE SUBJECTIVE: The patient remains on ventilator support. She has not had any new GI bleeding for the last two days. OBJECTIVE: VITAL SIGNS: Blood pressure is 122/50, pulse 82, respiratory rate 23, and she is afebrile. NECK: Supple. Trach site with thin secretions and there is trace dependent edema. LUNGS: Clear. CARDIAC: Regular rhythm and rate. Normal S1 and S2. ABDOMEN: Soft with G-tube. LABORATORY DATA: White count was 10.1 and hemoglobin 8.8 yesterday. IMPRESSION: 1. Gastrointestinal bleeding. 2. Anemia. 3. Severe protein-calorie malnutrition. 4. Head and neck cancer. 5. Respiratory failure with tracheostomy. 6. Paroxysmal atrial fibrillation. 7. Autonomic dysfunction with episodic hypotension. PLAN: 1. 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 2. Transfuse for hemoglobin less than 8 g. 3. Continue Digitalis at current dosing. 4. Monitor volume status. 5. Cardiorenal parameters and adjust therapy accordingly. 6. May need episodic diuresis for fluid mobilization. Chi Bhatti M.D. DR: Sanjeev JOB#: [id number] CC:
[2017-04-21 04:00] VITALS: BP 115/55
[2017-04-21] MEDS: Sucralfate 1gm tab GT SCH ×3 (06:18→17:33)
--- NOTE | 2017-04-21 07:04 | Pulmonology Progress Note ---
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 GT, trach, anemia, possible GIB; s/p transfusion hypoxemia, failure to thrive PLAN continue same per pulmonary respiratory care as is- not change for now soft tip catheter Ventilatory support as is; reviewed setting and stable supportive care as outlined and monitor for change suction with caution and monitor for bleeding no wean planned at present oxygen therapy noted care noted; gi reviewed prognosis poor medications/laboratory data/nursing notes reviewed in detail note reviewed and edited care discussed with RN and RT Subjective ROS Limited/Unobtainable: Yes Allergies: Coded Allergies: PENICILLINS (Verified Allergy, Unknown, 07/31/16) Subjective on the vent care noted and discussed events noted remains stable in tele Objective Last 24 Hour Vital Signs Date Time Temp Pulse Resp B/P (MAP) Pulse Ox O2 Delivery O2 Flow Rate FiO2 04/21/17 07:02 81 16 30 04/21/17 05:12 82 18 30 04/21/17 04:00 30 04/21/17 04:00 98.2 86 18 115/55 96 Mechanical Ventilator 04/21/17 03:37 84 04/21/17 03:17 92 19 30 04/21/17 01:14 82 19 30 04/21/17 00:00 30 04/21/17 00:00 98.0 97 22 135/65 100 Mechanical Ventilator 04/20/17 23:35 98 04/20/17 23:05 89 20 30 04/20/17 21:11 82 22 30 04/20/17 20:28 85 04/20/17 20:00 30 04/20/17 20:00 98.4 93 28 144/66 98 04/20/17 19:10 96 25 30 04/20/17 16:39 78 20 30 04/20/17 16:00 97.2 83 23 122/50 99 04/20/17 16:00 30 04/20/17 16:00 89 04/20/17 14:52 82 21 30 04/20/17 12:48 78 19 30 04/20/17 12:00 81 04/20/17 12:00 30 04/20/17 12:00 97.5 80 18 123/63 98 04/20/17 10:42 90 20 30 04/20/17 08:53 87 04/20/17 08:45 91 20 30 04/20/17 08:00 90 04/20/17 08:00 97.3 95 21 149/62 98 04/20/17 08:00 30 Objective WDWN NAD trach reduced breath sounds bilaterally with occasional rhonchi [id number] without MRG NABS nontender no HSM; GT; no distention no CC mild edema and same weak with reduced ROM nonfocal skin exam noted Current Medications Medications (Trade) Dose Ordered Sig/Josiah Route PRN Reason Start Time Stop Time Status Last Admin Dose Admin Amitriptyline HCl (Elavil) 10 mg BEDTIME GT 04/19/17 21:00 05/08/17 20:59 04/20/17 20:57 Chlorhexidine Gluconate (Cathy-Hex 2%) 1 applic DAILY@1999 TOPIC 04/19/17 20:00 05/12/17 19:59 04/20/17 20:55 Digoxin (Lanoxin) 0.125 mg DAILY GT 04/20/17 09:00 05/08/17 08:59 04/20/17 08:53 Levetiracetam (Keppra) 500 mg Q12HR GT 04/19/17 21:00 05/16/17 20:59 04/20/17 20:55 Levothyroxine Sodium (Synthroid) 150 mcg ACBREAKFAST GT 04/20/17 06:30 05/08/17 06:29 04/21/17 06:18 Midodrine (Pro-Amatine) 10 mg THREE TIMES A DAY GT 04/19/17 13:00 05/08/17 08:59 04/20/17 17:42 Multivitamins (Multivitamins W/ Minerals 15ml Liquid) 15 ml DAILY GT 04/20/17 09:00 05/08/17 08:59 04/20/17 08:53 Ondansetron HCl (Zofran) 4 mg Q4H PRN IVP Nausea & Vomiting 04/19/17 11:00 05/16/17 10:59 Pantoprazole (Protonix) 40 mg DAILY IVP 04/20/17 09:00 05/20/17 08:59 04/20/17 08:54 Sucralfate (Carafate) 1 gm EVERY 6 HOURS GT 04/19/17 12:00 05/12/17 00:00 04/21/17 06:18 MARCY MAJOR Apr 21, 2017 07:04
[2017-04-21 08:00] VITALS: BP 128/58
--- NOTE | 2017-04-21 08:26 | General Progress Note ---
Assessment/Plan Problem List: (1) new onset of generalised seizure activity (2) Acute GI hemorrhage ICD Codes: K92.2 - Gastrointestinal hemorrhage, unspecified SNOMED: 85647164 (3) Tongue malignant neoplasm ICD Codes: C02.9 - Malignant neoplasm of tongue, unspecified SNOMED: 218359179 (4) Lung nodule seen on imaging study ICD Codes: R91.1 - Solitary pulmonary nodule SNOMED: 267786310 Status: stable, progressing Assessment/Plan monitor cbc ppi transfuse prn monitor for further bleeding vent resp rx suctioning abx still waiting for bed at [facility] transfer when bed available Subjective ROS Limited/Unobtainable: No Constitutional: Reports: malaise, weakness HEENT: Reports: no symptoms Cardiovascular: Reports: no symptoms Respiratory: Reports: cough, sputum Gastrointestinal/Abdominal: Reports: difficulty swallowing Genitourinary: Reports: no symptoms Neurologic/Psychiatric: Reports: pre-existing deficit Endocrine: Reports: no symptoms Hematologic/Lymphatic: Reports: anemia Allergies: Coded Allergies: PENICILLINS (Verified Allergy, Unknown, 07/31/16) All Systems: reviewed and negative except above Subjective no events. no bleeding. on the vent. no distress. labs pending. no bleeding noted. Objective Last 24 Hour Vital Signs Date Time Temp Pulse Resp B/P (MAP) Pulse Ox O2 Delivery O2 Flow Rate FiO2 04/21/17 08:00 30 04/21/17 08:00 98.2 84 22 128/58 99 Mechanical Ventilator 30 04/21/17 07:02 81 16 30 04/21/17 05:12 82 18 30 04/21/17 04:00 30 04/21/17 04:00 98.2 86 18 115/55 96 Mechanical Ventilator 04/21/17 03:37 84 04/21/17 03:17 92 19 30 04/21/17 01:14 82 19 30 04/21/17 00:00 30 04/21/17 00:00 98.0 97 22 135/65 100 Mechanical Ventilator 04/20/17 23:35 98 04/20/17 23:05 89 20 30 04/20/17 21:11 82 22 30 04/20/17 20:28 85 04/20/17 20:00 30 04/20/17 20:00 98.4 93 28 144/66 98 04/20/17 19:10 96 25 30 04/20/17 16:39 78 20 30 04/20/17 16:00 97.2 83 23 122/50 99 04/20/17 16:00 30 04/20/17 16:00 89 04/20/17 14:52 82 21 30 04/20/17 12:48 78 19 30 04/20/17 12:00 81 04/20/17 12:00 30 04/20/17 12:00 97.5 80 18 123/63 98 04/20/17 10:42 90 20 30 04/20/17 08:53 87 04/20/17 08:45 91 20 30 Height (Feet): 5 Weight (Pounds): 155 Objective GENERAL: The patient is a well-developed thin female, in no apparent distress, on the vent. She is arousable. NECK: Supple. Trachea is midline. There is no discharge. HEART: Regular rate and rhythm. LUNGS: Clear. ABDOMEN: Soft, nontender, and nondistended. EXTREMITIES: Without clubbing, cyanosis, or edema. CHRISTINA HAMMOND Apr 21, 2017 08:26
[2017-04-21] MEDS: Digoxin Elixir 0.125mg GT SCH (08:41)
[2017-04-21] MEDS: Multivitamins W/Minerals 15 ML UDC GT SCH (08:41)
[2017-04-21] MEDS: Pantoprazole Inj IVP SCH (08:41)
[2017-04-21] MEDS: Midodrine 10mg tab GT SCH ×3 (08:41→17:33)
[2017-04-21] MEDS: levETIRAcetam 500mg/5ml Liquid GT SCH ×2 (08:41→20:04)
[2017-04-21 10:17] LABS: EOSINOPHILS % (AUTO) 3.8 % (0.0-3.0); LYMPHOCYTES % (AUTO) 13.5 % (20.0-45.0); MEAN CORPUSCULAR HEMOGLOBIN 30.7 PG (27.0-31.0); MEAN CORPUSCULAR HGB CONC 33.5 G/DL (32.0-36.0); MEAN CORPUSCULAR VOLUME 92 FL (80-99); MEAN PLATELET VOLUME 6.3 FL (6.5-10.1); MONOCYTES % (AUTO) 11.8 % (1.0-10.0); NEUTROPHILS % (AUTO) 69.9 % (45.0-75.0); PLATELET COUNT 296 K/UL (150-450); RED BLOOD COUNT 3.23 M/UL (4.20-5.40); RED CELL DISTRIBUTION WIDTH 13.1 % (11.6-14.8); WHITE BLOOD COUNT 11.5 K/UL (4.8-10.8)
--- NOTE | 2017-04-21 10:32 | Infectious Diseases Prog Note ---
Assessment/Plan Assessment/Plan antibiotics : none A 1. pseudomonas pneumonia s/p rx 2. respiratory failure 3. leucocytosis resolved 4. MRSA nasal colonization 5. head and neck cancer P 1. observe off antibiotics Subjective ROS Limited/Unobtainable: Yes Allergies: Coded Allergies: PENICILLINS (Verified Allergy, Unknown, 07/31/16) Objective Vital Signs Last 24 Hour Vital Signs Date Time Temp Pulse Resp B/P (MAP) Pulse Ox O2 Delivery O2 Flow Rate FiO2 04/21/17 09:20 80 18 30 04/21/17 08:41 84 04/21/17 08:00 30 04/21/17 08:00 98.2 84 22 128/58 99 Mechanical Ventilator 30 04/21/17 08:00 83 04/21/17 07:02 81 16 30 04/21/17 05:12 82 18 30 04/21/17 04:00 30 04/21/17 04:00 98.2 86 18 115/55 96 Mechanical Ventilator 04/21/17 03:37 84 04/21/17 03:17 92 19 30 04/21/17 01:14 82 19 30 04/21/17 00:00 30 04/21/17 00:00 98.0 97 22 135/65 100 Mechanical Ventilator 04/20/17 23:35 98 04/20/17 23:05 89 20 30 04/20/17 21:11 82 22 30 04/20/17 20:28 85 04/20/17 20:00 30 04/20/17 20:00 98.4 93 28 144/66 98 04/20/17 19:10 96 25 30 04/20/17 16:39 78 20 30 04/20/17 16:00 97.2 83 23 122/50 99 04/20/17 16:00 30 04/20/17 16:00 89 04/20/17 14:52 82 21 30 04/20/17 12:48 78 19 30 04/20/17 12:00 81 04/20/17 12:00 30 04/20/17 12:00 97.5 80 18 123/63 98 04/20/17 10:42 90 20 30 Height (Feet): 5 Weight (Pounds): 155 HEENT: status post trach Respiratory/Chest: lungs clear Cardiovascular: normal rate, regular rhythm, no gallop/murmur Abdomen: soft, non tender, other - GT Extremities: other - + edema, right arm PICC Laboratory Tests Test 04/21/17 10:00 White Blood Count 11.5 K/UL (4.8-10.8) H Red Blood Count 3.23 M/UL (4.20-5.40) L Hemoglobin 9.9 G/DL (12.0-16.0) L Hematocrit 29.6 % (37.0-47.0) L Mean Corpuscular Volume 92 FL (80-99) Mean Corpuscular Hemoglobin 30.7 PG (27.0-31.0) Mean Corpuscular Hemoglobin Concent 33.5 G/DL (32.0-36.0) Red Cell Distribution Width 13.1 % (11.6-14.8) Platelet Count 296 K/UL (150-450) Mean Platelet Volume 6.3 FL (6.5-10.1) L Neutrophils (%) (Auto) 69.9 % (45.0-75.0) Lymphocytes (%) (Auto) 13.5 % (20.0-45.0) L Monocytes (%) (Auto) 11.8 % (1.0-10.0) H Eosinophils (%) (Auto) 3.8 % (0.0-3.0) H Basophils (%) (Auto) 1.0 % (0.0-2.0) MARA BLOCK Apr 21, 2017 10:32
[2017-04-21] MEDS ORDERED: NS 275ml ONE (10:58)
[2017-04-21 12:00] VITALS: BP 111/52
--- NOTE | 2017-04-21 12:10 | General Progress Note ---
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 - anemia Recommendations - continue feeds - BID PPI and q6 carafate - daily CBC - transfuse PRN - Indication for transfer now less apparent since has stopped bleeding - may need to consider conservative follow up - will order UGI via GT Sunday Subjective Allergies: Coded Allergies: PENICILLINS (Verified Allergy, Unknown, 07/31/16) Subjective Above noted 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 GI 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 transfer Objective Last 24 Hour Vital Signs Date Time Temp Pulse Resp B/P (MAP) Pulse Ox O2 Delivery O2 Flow Rate FiO2 04/21/17 11:03 77 16 30 04/21/17 09:20 80 18 30 04/21/17 08:41 84 04/21/17 08:00 30 04/21/17 08:00 98.2 84 22 128/58 99 Mechanical Ventilator 30 04/21/17 08:00 83 04/21/17 07:02 81 16 30 04/21/17 05:12 82 18 30 04/21/17 04:00 30 04/21/17 04:00 98.2 86 18 115/55 96 Mechanical Ventilator 04/21/17 03:37 84 04/21/17 03:17 92 19 30 04/21/17 01:14 82 19 30 04/21/17 00:00 30 04/21/17 00:00 98.0 97 22 135/65 100 Mechanical Ventilator 04/20/17 23:35 98 04/20/17 23:05 89 20 30 04/20/17 21:11 82 22 30 04/20/17 20:28 85 04/20/17 20:00 30 04/20/17 20:00 98.4 93 28 144/66 98 04/20/17 19:10 96 25 30 04/20/17 16:39 78 20 30 04/20/17 16:00 97.2 83 23 122/50 99 04/20/17 16:00 30 04/20/17 16:00 89 04/20/17 14:52 82 21 30 04/20/17 12:48 78 19 30 Intake and Output 04/21/17 04/22/17 19:00 07:00 Intake Total 210 ml Balance 210 ml Tube Feeding 160 ml Other 50 ml Laboratory Tests 04/21/17 10:00: White Blood Count 11.5H, Red Blood Count 3.23L, Hemoglobin 9.9L, Hematocrit 29.6L, Mean Corpuscular Volume 92, Mean Corpuscular Hemoglobin 30.7, Mean Corpuscular Hemoglobin Concent 33.5, Red Cell Distribution Width 13.1, Platelet Count 296, Mean Platelet Volume 6.3L, Neutrophils (%) (Auto) 69.9, Lymphocytes ( %) (Auto) 13.5L, Monocytes (%) (Auto) 11.8H, Eosinophils (%) (Auto) 3.8H, Basophils (%) (Auto) 1.0 Height (Feet): 5 Weight (Pounds): 155 Objective Debilitated elderly Woman NCAT Neck stiff from XRT, (+) trach coarse BS RR abd soft, ND, (+) GT no edema calm / NAD BIN MYERS Apr 21, 2017 12:10
[2017-04-21 16:00] VITALS: BP 120/55
[2017-04-21 20:00] VITALS: BP 135/55
[2017-04-21] MEDS: Dyna-Hex 2% Top Sol 2oz TOPIC SCH (20:04)
[2017-04-22] VITALS: BP 123/56
[2017-04-22] MEDS: Sucralfate 1gm tab GT SCH ×3 (00:34→12:33)
--- NOTE | 2017-04-22 01:45 | Progress Note ---
DATE: 04/21/2017 CARDIOLOGY PROGRESS NOTE SUBJECTIVE: No new bleeding noted. Upper GI series is pending. The patient is on ventilator support. OBJECTIVE: VITAL SIGNS: Afebrile, blood pressure 128/58, pulse rate 84, and respiratory rate 22. LUNGS: Good breath sounds. NECK: Thin trach secretions. HEART: Regular rhythm and rate. Normal S1 and S2. ABDOMEN: Soft. G-tube site is intact. No bleeding noted. EXTREMITIES: With trace edema. IMPRESSION: 1. Gastrointestinal bleeding, now stabilized. 2. Anemia, status post transfusions with stable hemoglobin. 3. Autonomic dysfunction, stable on midodrine for blood pressure support. 4. Paroxysmal atrial fibrillation, on digoxin for rate control. 5. Head and neck cancer. 6. Respiratory failure with tracheostomy. PLAN: 1. Await upper GI study. 2. Continue current cardiovascular regimen. 3. Monitor electrolytes and hemoglobin. Chi Bhatti M.D. DR: MARIJA/anna JOB#: [id number] CC:
[2017-04-22 04:00] VITALS: BP 103/44
[2017-04-22 08:00] VITALS: BP 111/49
--- NOTE | 2017-04-22 08:19 | Infectious Diseases Prog Note ---
Assessment/Plan Assessment/Plan A: 1. pseudomonas pneumonia s/p Rx 2. respiratory failure 3. leucocytosis improving 4. MRSA nasal colonization 5. head and neck cancer 6. GI bleeding P 1. Observe off antibiotic Subjective ROS Limited/Unobtainable: Yes Allergies: Coded Allergies: PENICILLINS (Verified Allergy, Unknown, 07/31/16) Objective Vital Signs Last 24 Hour Vital Signs Date Time Temp Pulse Resp B/P (MAP) Pulse Ox O2 Delivery O2 Flow Rate FiO2 04/22/17 06:45 79 14 30 04/22/17 04:36 107 17 30 04/22/17 04:00 30 04/22/17 04:00 97.5 82 19 103/44 100 Mechanical Ventilator 04/22/17 03:55 81 04/22/17 03:30 82 18 30 04/22/17 01:30 90 18 30 04/22/17 00:00 30 04/22/17 00:00 98.1 83 22 123/56 100 Mechanical Ventilator 04/21/17 23:37 80 04/21/17 23:11 97 23 30 04/21/17 21:30 80 21 30 04/21/17 20:00 98.1 83 23 135/55 100 Mechanical Ventilator 04/21/17 20:00 30 04/21/17 19:30 78 22 30 04/21/17 19:15 74 04/21/17 17:28 75 23 30 04/21/17 16:00 30 04/21/17 16:00 73 04/21/17 16:00 98.0 75 18 120/55 100 Mechanical Ventilator 30 04/21/17 15:00 72 16 30 04/21/17 13:00 81 19 30 04/21/17 12:00 97.6 79 19 111/52 100 Mechanical Ventilator 30 04/21/17 12:00 82 04/21/17 12:00 30 04/21/17 11:03 77 16 30 04/21/17 09:20 80 18 30 04/21/17 08:41 84 Height (Feet): 5 Weight (Pounds): 155 General Appearance: no acute distress HEENT: status post trach Respiratory/Chest: lungs clear Cardiovascular: normal rate Abdomen: soft, non tender, other - GT feeding Extremities: no edema Skin: no rash Neurologic/Psychiatric: alert, responsive Laboratory Tests Test 04/21/17 10:00 White Blood Count 11.5 K/UL (4.8-10.8) H Red Blood Count 3.23 M/UL (4.20-5.40) L Hemoglobin 9.9 G/DL (12.0-16.0) L Hematocrit 29.6 % (37.0-47.0) L Mean Corpuscular Volume 92 FL (80-99) Mean Corpuscular Hemoglobin 30.7 PG (27.0-31.0) Mean Corpuscular Hemoglobin Concent 33.5 G/DL (32.0-36.0) Red Cell Distribution Width 13.1 % (11.6-14.8) Platelet Count 296 K/UL (150-450) Mean Platelet Volume 6.3 FL (6.5-10.1) L Neutrophils (%) (Auto) 69.9 % (45.0-75.0) Lymphocytes (%) (Auto) 13.5 % (20.0-45.0) L Monocytes (%) (Auto) 11.8 % (1.0-10.0) H Eosinophils (%) (Auto) 3.8 % (0.0-3.0) H Basophils (%) (Auto) 1.0 % (0.0-2.0) Current Medications Medications (Trade) Dose Ordered Sig/Josiah Route PRN Reason Start Time Stop Time Status Last Admin Dose Admin Amitriptyline HCl (Elavil) 10 mg BEDTIME GT 04/19/17 21:00 05/08/17 20:59 04/21/17 20:06 Chlorhexidine Gluconate (Cathy-Hex 2%) 1 applic DAILY@1999 TOPIC 04/19/17 20:00 05/12/17 19:59 04/21/17 20:04 Digoxin (Lanoxin) 0.125 mg DAILY GT 04/20/17 09:00 05/08/17 08:59 04/21/17 08:41 Levetiracetam (Keppra) 500 mg Q12HR GT 04/19/17 21:00 05/16/17 20:59 04/21/17 20:04 Levothyroxine Sodium (Synthroid) 150 mcg ACBREAKFAST GT 04/20/17 06:30 05/08/17 06:29 04/22/17 06:03 Midodrine (Pro-Amatine) 10 mg THREE TIMES A DAY GT 04/19/17 13:00 05/08/17 08:59 04/21/17 17:33 Multivitamins (Multivitamins W/ Minerals 15ml Liquid) 15 ml DAILY GT 04/20/17 09:00 05/08/17 08:59 04/21/17 08:41 Ondansetron HCl (Zofran) 4 mg Q4H PRN IVP Nausea & Vomiting 04/19/17 11:00 05/16/17 10:59 Pantoprazole (Protonix) 40 mg DAILY IVP 04/20/17 09:00 05/20/17 08:59 04/21/17 08:41 Sucralfate (Carafate) 1 gm EVERY 6 HOURS GT 04/19/17 12:00 05/12/17 00:00 04/22/17 05:59 JENNIFER MCKEE Apr 22, 2017 08:19
--- NOTE | 2017-04-22 08:37 | General Progress Note ---
Assessment/Plan Problem List: (1) new onset of generalised seizure activity (2) Acute GI hemorrhage ICD Codes: K92.2 - Gastrointestinal hemorrhage, unspecified SNOMED: 16899422 (3) Tongue malignant neoplasm ICD Codes: C02.9 - Malignant neoplasm of tongue, unspecified SNOMED: 000966718 (4) Lung nodule seen on imaging study ICD Codes: R91.1 - Solitary pulmonary nodule SNOMED: 441403963 Status: stable, progressing Assessment/Plan monitor cbc ppi transfuse prn monitor for further bleeding vent resp rx suctioning abx still waiting for bed at [facility] transfer when bed available Subjective ROS Limited/Unobtainable: No Constitutional: Reports: malaise, weakness HEENT: Reports: no symptoms Cardiovascular: Reports: no symptoms Respiratory: Reports: cough, sputum Gastrointestinal/Abdominal: Reports: difficulty swallowing Genitourinary: Reports: no symptoms Neurologic/Psychiatric: Reports: no symptoms Endocrine: Reports: no symptoms Hematologic/Lymphatic: Reports: anemia Allergies: Coded Allergies: PENICILLINS (Verified Allergy, Unknown, 07/31/16) All Systems: reviewed and negative except above Subjective no events. no bleeding. on the vent. no distress. labs pending. Objective Last 24 Hour Vital Signs Date Time Temp Pulse Resp B/P (MAP) Pulse Ox O2 Delivery O2 Flow Rate FiO2 04/22/17 06:45 79 14 30 04/22/17 04:36 107 17 30 04/22/17 04:00 30 04/22/17 04:00 97.5 82 19 103/44 100 Mechanical Ventilator 04/22/17 03:55 81 04/22/17 03:30 82 18 30 04/22/17 01:30 90 18 30 04/22/17 00:00 30 04/22/17 00:00 98.1 83 22 123/56 100 Mechanical Ventilator 04/21/17 23:37 80 04/21/17 23:11 97 23 30 04/21/17 21:30 80 21 30 04/21/17 20:00 98.1 83 23 135/55 100 Mechanical Ventilator 04/21/17 20:00 30 04/21/17 19:30 78 22 30 04/21/17 19:15 74 04/21/17 17:28 75 23 30 04/21/17 16:00 30 04/21/17 16:00 73 04/21/17 16:00 98.0 75 18 120/55 100 Mechanical Ventilator 30 04/21/17 15:00 72 16 30 04/21/17 13:00 81 19 30 04/21/17 12:00 97.6 79 19 111/52 100 Mechanical Ventilator 30 04/21/17 12:00 82 04/21/17 12:00 30 04/21/17 11:03 77 16 30 04/21/17 09:20 80 18 30 04/21/17 08:41 84 Laboratory Tests 04/21/17 10:00: White Blood Count 11.5H, Red Blood Count 3.23L, Hemoglobin 9.9L, Hematocrit 29.6L, Mean Corpuscular Volume 92, Mean Corpuscular Hemoglobin 30.7, Mean Corpuscular Hemoglobin Concent 33.5, Red Cell Distribution Width 13.1, Platelet Count 296, Mean Platelet Volume 6.3L, Neutrophils (%) (Auto) 69.9, Lymphocytes ( %) (Auto) 13.5L, Monocytes (%) (Auto) 11.8H, Eosinophils (%) (Auto) 3.8H, Basophils (%) (Auto) 1.0 Height (Feet): 5 Weight (Pounds): 155 Objective GENERAL: The patient is a well-developed thin female, in no apparent distress, on the vent. She is arousable. NECK: Supple. Trachea is midline. There is no discharge. HEART: Regular rate and rhythm. LUNGS: Clear. ABDOMEN: Soft, nontender, and nondistended. EXTREMITIES: Without clubbing, cyanosis, or edema. CHRISTINA HAMMOND Apr 22, 2017 08:37
[2017-04-22] MEDS: Midodrine 10mg tab GT SCH ×2 (08:39→12:33)
[2017-04-22] MEDS: levETIRAcetam 500mg/5ml Liquid GT SCH (08:39)
[2017-04-22] MEDS: Digoxin Elixir 0.125mg GT SCH (08:39)
[2017-04-22] MEDS: Multivitamins W/Minerals 15 ML UDC GT SCH (08:39)
[2017-04-22] MEDS: Pantoprazole Inj IVP SCH (08:40)
--- NOTE | 2017-04-22 11:37 | General Progress Note ---
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 - anemia Recommendations - continue feeds - BID PPI and q6 carafate - daily CBC - transfuse PRN - Indication for transfer now less apparent since has stopped bleeding - may need to consider conservative follow up - will order UGI via GT Sunday Subjective Allergies: Coded Allergies: PENICILLINS (Verified Allergy, Unknown, 07/31/16) Subjective Above noted no further GI bleed tolerating feeds awaiting transfer UGI ordered for am Objective Last 24 Hour Vital Signs Date Time Temp Pulse Resp B/P (MAP) Pulse Ox O2 Delivery O2 Flow Rate FiO2 04/22/17 11:23 82 20 30 04/22/17 09:04 82 20 30 04/22/17 08:39 82 04/22/17 08:00 80 04/22/17 08:00 30 04/22/17 08:00 97.9 83 19 111/49 99 Mechanical Ventilator 30 04/22/17 06:45 79 14 30 04/22/17 04:36 107 17 30 04/22/17 04:00 30 04/22/17 04:00 97.5 82 19 103/44 100 Mechanical Ventilator 04/22/17 03:55 81 04/22/17 03:30 82 18 30 04/22/17 01:30 90 18 30 04/22/17 00:00 30 04/22/17 00:00 98.1 83 22 123/56 100 Mechanical Ventilator 04/21/17 23:37 80 04/21/17 23:11 97 23 30 04/21/17 21:30 80 21 30 04/21/17 20:00 98.1 83 23 135/55 100 Mechanical Ventilator 04/21/17 20:00 30 04/21/17 19:30 78 22 30 04/21/17 19:15 74 04/21/17 17:28 75 23 30 04/21/17 16:00 30 04/21/17 16:00 73 04/21/17 16:00 98.0 75 18 120/55 100 Mechanical Ventilator 30 04/21/17 15:00 72 16 30 04/21/17 13:00 81 19 30 04/21/17 12:00 97.6 79 19 111/52 100 Mechanical Ventilator 30 04/21/17 12:00 82 04/21/17 12:00 30 Height (Feet): 5 Weight (Pounds): 155 Objective Debilitated elderly Woman NCAT Neck stiff from XRT, (+) trach coarse BS RR abd soft, ND, (+) GT no edema calm / NAD BIN MYERS Apr 22, 2017 11:37
[2017-04-22 12:00] VITALS: BP 130/62
--- NOTE | 2017-04-22 12:52 | Pulmonology Progress Note ---
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 GT, trach, anemia, possible GIB; s/p transfusion hypoxemia, failure to thrive PLAN continue same per pulmonary respiratory care as is- not change for now soft tip catheter Ventilatory support as is; reviewed setting and stable supportive care as outlined and monitor for change suction with caution and monitor for bleeding no wean planned at present possible transfer pending to [facility] oxygen therapy noted care noted; gi reviewed prognosis poor monitor for change medications/laboratory data/nursing notes reviewed in detail note reviewed and edited care discussed with RN and RT Subjective ROS Limited/Unobtainable: Yes Allergies: Coded Allergies: PENICILLINS (Verified Allergy, Unknown, 07/31/16) Subjective on the vent care noted and discussed events noted remains stable in tele Objective Last 24 Hour Vital Signs Date Time Temp Pulse Resp B/P (MAP) Pulse Ox O2 Delivery O2 Flow Rate FiO2 04/22/17 12:00 30 04/22/17 11:23 82 20 30 04/22/17 09:04 82 20 30 04/22/17 08:39 82 04/22/17 08:00 80 04/22/17 08:00 30 04/22/17 08:00 97.9 83 19 111/49 99 Mechanical Ventilator 30 04/22/17 06:45 79 14 30 04/22/17 04:36 107 17 30 04/22/17 04:00 30 04/22/17 04:00 97.5 82 19 103/44 100 Mechanical Ventilator 04/22/17 03:55 81 04/22/17 03:30 82 18 30 04/22/17 01:30 90 18 30 04/22/17 00:00 30 04/22/17 00:00 98.1 83 22 123/56 100 Mechanical Ventilator 04/21/17 23:37 80 04/21/17 23:11 97 23 30 04/21/17 21:30 80 21 30 04/21/17 20:00 98.1 83 23 135/55 100 Mechanical Ventilator 04/21/17 20:00 30 04/21/17 19:30 78 22 30 04/21/17 19:15 74 04/21/17 17:28 75 23 30 04/21/17 16:00 30 04/21/17 16:00 73 04/21/17 16:00 98.0 75 18 120/55 100 Mechanical Ventilator 30 04/21/17 15:00 72 16 30 04/21/17 13:00 81 19 30 Objective WDWN NAD trach reduced breath sounds bilaterally with occasional rhonchi [id number] without MRG NABS nontender no HSM; GT; no distention no CC mild edema and same weak with reduced ROM nonfocal skin exam noted Current Medications Medications (Trade) Dose Ordered Sig/Josiah Route PRN Reason Start Time Stop Time Status Last Admin Dose Admin Amitriptyline HCl (Elavil) 10 mg BEDTIME GT 04/19/17 21:00 05/08/17 20:59 04/21/17 20:06 Chlorhexidine Gluconate (Cathy-Hex 2%) 1 applic DAILY@1999 TOPIC 04/19/17 20:00 05/12/17 19:59 04/21/17 20:04 Digoxin (Lanoxin) 0.125 mg DAILY GT 04/20/17 09:00 05/08/17 08:59 04/22/17 08:39 Levetiracetam (Keppra) 500 mg Q12HR GT 04/19/17 21:00 05/16/17 20:59 04/22/17 08:39 Levothyroxine Sodium (Synthroid) 150 mcg ACBREAKFAST GT 04/20/17 06:30 05/08/17 06:29 04/22/17 06:03 Midodrine (Pro-Amatine) 10 mg THREE TIMES A DAY GT 04/19/17 13:00 05/08/17 08:59 04/22/17 12:33 Multivitamins (Multivitamins W/ Minerals 15ml Liquid) 15 ml DAILY GT 04/20/17 09:00 05/08/17 08:59 04/22/17 08:39 Ondansetron HCl (Zofran) 4 mg Q4H PRN IVP Nausea & Vomiting 04/19/17 11:00 05/16/17 10:59 Pantoprazole (Protonix) 40 mg DAILY IVP 04/20/17 09:00 05/20/17 08:59 04/22/17 08:40 Sucralfate (Carafate) 1 gm EVERY 6 HOURS GT 04/19/17 12:00 05/12/17 00:00 04/22/17 12:33 MARCY MAJOR Apr 22, 2017 12:52
[2017-04-22] MEDS ORDERED: NS 500ML ONE (16:40)
--- NOTE | 2017-04-22 23:15 | Progress Note ---
DATE: 04/22/2017 CARDIOLOGY PROGRESS NOTE SUBJECTIVE: The patient remains on ventilator support. No new bleeding has been noted. OBJECTIVE: VITAL SIGNS: Blood pressure 103/44, pulse 82, respirations 19, and afebrile. LUNGS: Clear. Thin trach secretions. CARDIAC: Regular rhythm and rate. Normal S1, S2 with no murmur. Monitored rhythm, sinus. ABDOMEN: Soft, no focal tenderness. G-tube intact. No edema. No new labs today. IMPRESSION: 1. Recurring gastrointestinal bleed. 2. Anemia. 3. Respiratory failure with tracheostomy. 4. Autonomic dysfunction with chronic hypotension, stabilizing on midodrine. 5. Severe protein-calorie malnutrition. 6. Metastatic head and neck cancer. PLAN: 1. Await transfer to higher level of care. 2. Recheck electrolytes, phosphorus and magnesium levels. 3. Upper gastrointestinal series planned. 4. Continue midodrine with titration of dose based on clinical parameters. 5. Volume resuscitation for more significant hypotensive episodes as needed. Chi Bhatti M.D. DR: NADYA JOB#: [id number] CC:
== END 2017-04-22 16:41 | disposition short-term general hospital (02) | DRG 377 ==
LOC: EMR 17:54 → EDBEDREQ 19:49 → ENRESERV 20:18 → EDBEDREQ 20:30 → 2W 21:26 → ICU 04-11 23:35 → 2W 04-14 18:53 → ICU 04-16 19:00 → 2W 04-19 10:44
PROC: 06HM33Z Insertion of Infusion Device into Right Femoral Vein, Percutaneous Approach (ICD-10-PCS; principal; 2017-04-07)
PROC: 5A1955Z Respiratory Ventilation, Greater than 96 Consecutive Hours (ICD-10-PCS; principal; 2017-04-07)
PROC: 30233N1 Transfusion of Nonautologous Red Blood Cells into Peripheral Vein, Percutaneous Approach (ICD-10-PCS; principal; 2017-04-07)
PROC: 0CJS8ZZ Inspection of Larynx, Via Natural or Artificial Opening Endoscopic (ICD-10-PCS; 2017-04-09)
PROC: B543ZZA Ultrasonography of Right Jugular Veins, Guidance (ICD-10-PCS; 2017-04-12)
PROC: 05HM33Z Insertion of Infusion Device into Right Internal Jugular Vein, Percutaneous Approach (ICD-10-PCS; 2017-04-12)
PROC: 0DBL8ZX Excision of Transverse Colon, Via Natural or Artificial Opening Endoscopic, Diagnostic (ICD-10-PCS; 2017-04-17)
PROC: 0DBK8ZX Excision of Ascending Colon, Via Natural or Artificial Opening Endoscopic, Diagnostic (ICD-10-PCS; 2017-04-17)
DX: K92.1 Melena (principal); J15.1 Pneumonia due to Pseudomonas; R57.9 Shock, unspecified; E43 Unspecified severe protein-calorie malnutrition; I47.2 Ventricular tachycardia; C78.00 Secondary malignant neoplasm of unspecified lung; J96.11 Chronic respiratory failure with hypoxia; Z99.11 Dependence on respirator [ventilator] status; E83.42 Hypomagnesemia; E87.2 Acidosis; I50.32 Chronic diastolic (congestive) heart failure; K92.0 Hematemesis; L89.152 Pressure ulcer of sacral region, stage 2; C76.0 Malignant neoplasm of head, face and neck; D64.9 Anemia, unspecified; Z93.1 Gastrostomy status; Z93.0 Tracheostomy status; Z87.440 Personal history of urinary (tract) infections; F45.8 Other somatoform disorders; E86.1 Hypovolemia; R56.9 Unspecified convulsions; C02.9 Malignant neoplasm of tongue, unspecified; Z22.322 Carrier or suspected carrier of Methicillin resistant Staphylococcus aureus; K52.9 Noninfective gastroenteritis and colitis, unspecified; K63.5 Polyp of colon; K57.90 Diverticulosis of intestine, part unspecified, without perforation or abscess without bleeding; I48.0 Paroxysmal atrial fibrillation; Z79.01 Long term (current) use of anticoagulants; R62.7 Adult failure to thrive; E87.6 Hypokalemia; E83.39 Other disorders of phosphorus metabolism
CPT/HCPCS: 36415; 36569; 36600; 71010; 74000; 76937; 78278; 80048; 80053; 80162; 80202; 81003; 82550; 82803; 82962; 83605; 83690; 83735; 83880; 84100; 84439; 84443; 84480; 84484; 85007; 85025; 85610; 85730; 86850; 86900; 86901; 86920; 87040; 87070; 87081; 87181; 87205; 93005; 93970; 94002; 94003; 94150; 94640; 94664; 99291; J2250; J2405

== ENCOUNTER 2017-08-08 17:11 | Emergency (ER) | payer MEDICARE, BC ==
[~2017-08-08] VITALS: Ht 147.3 cm; Wt 45.4 kg
[~2017-08-08 17:11] MED LIST changes: +AMITRIPTYLINE H10 MG GT; +DIGOXIN0.125 MG/2 GT; +DUODERM1 EACH TP; +LEVETIRACE100 MG/1 M GT; +MIDODRINE HCL10 MG GT; +[UNRECOGNIZED DRUG - OTHER] TP; +[UNRECOGNIZED DRUG - REMARK] TOPIC
[2017-08-08 17:40] VITALS: BP 103/48
--- NOTE | 2017-08-08 18:48 | Emergency Room Report ---
History of Present Illness General Chief Complaint: Malfunctioning Gastric Tube Source: Patient, Medical Record Present Illness HPI This patient presents for G-tube balloon deflation. She is accompanied by her son who is her primary caregiver. She is G-tube dependent. The tube became dislodged and he noted that there was a deflated balloon. No other complaints. Allergies: Coded Allergies: PENICILLINS (Verified Allergy, Unknown, 07/31/16) Patient History Past Medical History: see triage record, other - CA Past Surgical History: other Social History: Denies: smoking, alcohol use, drug use Reviewed Nursing Documentation: PMH: Agreed, PSxH: Agreed Nursing Documentation-PM Past Medical History: No History, Except For Hx Cardiac Problems: Yes Hx COPD: Yes Hx Cancer: Yes - mouth Hx Gastrointestinal Problems: Yes Hx Neurological Problems: Yes Hx Seizures: Yes Hx Speech Problem: Yes - trach Hx Weakness: Yes Review of Systems All Other Systems: negative except mentioned in HPI Physical Exam Vital Signs Date Time Temp Pulse Resp B/P (MAP) Pulse Ox O2 Delivery O2 Flow Rate FiO2 08/08/17 17:24 98.5 108 20 103/48 100 Trach Collar 3.0 98.4 Sp02 EP Interpretation: reviewed, normal General Appearance: no apparent distress, alert, GCS 15, non-toxic Head: normocephalic, atraumatic Eyes: bilateral eye normal inspection, bilateral eye PERRL Neck: full range of motion, supple/symm/no masses Respiratory: no respiratory distress, no retraction, no accessory muscle use Gastrointestinal: non tender, soft, non-distended, no guarding, no rebound, other - G-tube dislodged. Balloon deflated. Rectal: deferred Neurologic: alert, responsive Psychiatric: mood/affect normal Skin: normal color, warm/dry, well hydrated Medical Decision Making Diagnostic Impression: Primary Impression: Malfunction of percutaneous endoscopic gastrostomy (PEG) tube ER Course This patient presents for G-tube replacement. The G-tube was replaced in the typical manner without complication or incident. A KUB was obtained which showed Gastrografin consistent with appropriate placement in the stomach. Other X-Ray Diagnostic Results Other X-Ray Diagnostic Results : X-Ray ordered: KUB # of Views/Limited Vs Complete: 1 View Indication: Other - G-tube dislodgement Interpretation: other - c/w appropriate G-tube placement in the stomach. Electronically Signed by: Dontrell Last Vital Signs Date Time Temp Pulse Resp B/P (MAP) Pulse Ox O2 Delivery O2 Flow Rate FiO2 08/08/17 17:40 108 20 103/48 100 Trach Collar 3.0 08/08/17 17:24 98.5 98.4 Status: improved Disposition: HOME, SELF-CARE Condition: Improved Referrals: CHRISTINA HAMMOND (PCP) Patient Instructions: Gastrostomy Tube Home Guide, Adult FLETCHER YUEN D.O. Aug 08, 2017 18:47
[2017-08-08 19:14] VITALS: BP 103/48
--- NOTE | 2017-08-09 10:38 | Diagnostic Imaging Report ---
Indication: G-tube injection. Status post replacement of gastrostomy. Checking for position. Comparison: None Single view of the abdomen obtained Findings: Contrast in the stomach. Gastrostomy is in the mid body of the stomach in good position. There is no leak. IMPRESSION: Unremarkable gastrostomy injection
== END 2017-08-08 19:14 | disposition home or self-care (01) ==
LOC: EMR 17:46
DX: K94.23 Gastrostomy malfunction (principal); Y83.3 Surgical operation with formation of external stoma as the cause of abnormal reaction of the patient, or of later complication, without mention of misadventure at the time of the procedure; Y92.9 Unspecified place or not applicable; Z88.0 Allergy status to penicillin; J44.9 Chronic obstructive pulmonary disease, unspecified; Z85.89 Personal history of malignant neoplasm of other organs and systems
CPT/HCPCS: 43760; 74018; 99283; Q9963

== ENCOUNTER 2017-08-14 17:43 | Inpatient (IN) | payer MEDICARE, BC ==
[~2017-08-14] VITALS: Ht 147.3 cm; Wt 49.9 kg
[2017-08-14] MEDS ORDERED: MAGNESIUM400 M2 GT (18:01)
[2017-08-14 18:39] VITALS: BP 132/47
[2017-08-14] MEDS ORDERED: DiphenhydrAMINE 50mg/ml Inj IVP ONE (18:45)
--- NOTE | 2017-08-14 18:47 | Emergency Room Report ---
History of Present Illness General Chief Complaint: General Complaint Source: Family Member Present Illness HPI 82-year-old female presents to the emergency department brought by caregiver for progressive rash 3 weeks. Son his bedside and states that patient spent 3 months in subacute care and upon bringing the patient home nurse facility reported that patient developed a rash on her back. Son describes no new medications except for magnesium for which he discontinued 1 week ago and states that symptoms continue to progress. Patient has history of cancer with chemotherapy and residual damage to soft tissues of the throat and trachea. Patient has tracheostomy and is on oxygen. Patient is nonverbal but she follows commands. Son states that 3 days ago he began developing an itchy rash as well on the inner right thigh, anterior abdomen and right wrist. Allergies: Coded Allergies: PENICILLINS (Verified Allergy, Unknown, 07/31/16) Patient History Past Medical History: see triage record, seizures, other - trache on O2 Past Surgical History: none Pertinent Family History: none Last Menstrual Period: Post Now: No Reviewed Nursing Documentation: PMH: Agreed, PSxH: Agreed Nursing Documentation-PMH Hx Cardiac Problems: Yes Hx COPD: Yes - Trache Hx Cancer: Yes - Head, neck, mouth CA. Hx Gastrointestinal Problems: Yes - Incontinent Hx Neurological Problems: Yes Hx Seizures: Yes Hx Speech Problem: Yes - trach Hx Weakness: Yes Review of Systems All Other Systems: limited - Pt non-verbal Physical Exam Vital Signs Date Time Temp Pulse Resp B/P (MAP) Pulse Ox O2 Delivery O2 Flow Rate FiO2 08/14/17 17:55 99.1 116 19 132/47 94 Nasal Cannula 3.0 99.1 Sp02 EP Interpretation: reviewed, normal General Appearance: no apparent distress, alert, GCS 15, non-toxic, Chronically Ill Head: normocephalic, atraumatic ENT: hearing grossly normal, normal pharynx, no angioedema, other - trache Neck: no bony tend Respiratory: crackles, rhonchi, speaking full sentences Cardiovascular #1: normal capillary refill, tachycardia Gastrointestinal: non tender, soft, other - G-Tube Rectal: deferred Musculoskeletal: back normal, gait/station normal, normal range of motion, non- tender Neurologic: alert, responsive, motor strength/tone normal, sensory intact, grossly normal Psychiatric: judgement/insight normal Skin: normal color, warm/dry, well hydrated, rash - Erythematous plaques and papules with excoriations: back, chest, upper arms and abdomen, generalized. Lymphatic: no adenopathy Medical Decision Making PA Attestation Dr. feng is my supervising Physician whom patient management has been discussed with. Diagnostic Impression: Primary Impression: Rash and nonspecific skin eruption Additional Impressions: Scabies Cellulitis Qualified Codes: L03.818 - Cellulitis of other sites Pneumonia Qualified Codes: J18.9 - Pneumonia, unspecified organism ER Course 82-year-old female presents to the emergency department brought by caregiver for progressive rash 3 weeks. Son his bedside and states that patient spent 3 months in subacute care and upon bringing the patient home nurse facility reported that patient developed a rash on her back. Son describes no new medications except for magnesium for which he discontinued 1 week ago and states that symptoms continue to progress. Patient has history of cancer with chemotherapy and residual damage to soft tissues of the throat and trachea. Patient has tracheostomy and is on oxygen. Patient is nonverbal but she follows commands. Son states that 3 days ago he began developing an itchy rash as well on the inner right thigh, anterior abdomen and right wrist. Ddx considered but are not limited to cellulitis, scabies, shingles, varicella, dermatitis, urticaria, eczema, tinea, viral exanthem, SJS Vital signs: are WNL, pt. is afebrile H&PE are most consistent with rash, contagious most likely scabies. ORDERS: -CBC: elevated WBC's 16.9 - CMP: elevated C02, low anion gap, BUN elevated. -Lactic Acid: WNL Blood Cultures: pending. ED INTERVENTIONS: - IV ABX: cipro, then Levaquin once cxr reviewed. -Benadryl IV DISPOSITION: at this time pt. will be admitted to Dr. Madrigal for Rash/ non- specific reaction, and possible PNA. Dr. Madrigal agreed to admit the pt. and to continue pt. care management. Labs Test 08/14/17 20:34 White Blood Count 16.9 K/UL (4.8-10.8) Red Blood Count 3.62 M/UL (4.20-5.40) Hemoglobin 10.4 G/DL (12.0-16.0) Hematocrit 33.4 % (37.0-47.0) Mean Corpuscular Volume 92 FL (80-99) Mean Corpuscular Hemoglobin 28.8 PG (27.0-31.0) Mean Corpuscular Hemoglobin Concent 31.2 G/DL (32.0-36.0) Red Cell Distribution Width 12.6 % (11.6-14.8) Platelet Count 227 K/UL (150-450) Mean Platelet Volume 8.4 FL (6.5-10.1) Neutrophils (%) (Auto) 72.6 % (45.0-75.0) Lymphocytes (%) (Auto) 9.9 % (20.0-45.0) Monocytes (%) (Auto) 8.8 % (1.0-10.0) Eosinophils (%) (Auto) 7.8 % (0.0-3.0) Basophils (%) (Auto) 0.9 % (0.0-2.0) Sodium Level 136 MMOL/L (136-145) Potassium Level 4.6 MMOL/L (3.5-5.1) Chloride Level 98 MMOL/L (98-107) Carbon Dioxide Level 35 MMOL/L (21-32) Anion Gap 3 mmol/L (5-15) Blood Urea Nitrogen 22 mg/dL (7-18) Creatinine 0.8 MG/DL (0.55-1.30) Estimat Glomerular Filtration Rate mL/min (>60) Glucose Level 100 MG/DL (74-106) Lactic Acid Level 2.00 mmol/L (0.66-2.22) Calcium Level 9.4 MG/DL (8.5-10.1) Total Bilirubin 0.3 MG/DL (0.2-1.0) Aspartate Amino Transf (AST/SGOT) 53 U/L (15-37) Alanine Aminotransferase (ALT/SGPT) 16 U/L (12-78) Alkaline Phosphatase 113 U/L (46-116) Creatine Kinase MB < 0.5 NG/ML (0.0-3.6) Total Protein 8.2 G/DL (6.4-8.2) Albumin 3.0 G/DL (3.4-5.0) Globulin 5.2 g/dL Albumin/Globulin Ratio 0.6 (1.0-2.7) EKG Diagnostic Results Rate: tachycardiac - 106 Rhythm: NSR ST Segments: no acute changes ASA given to the pt in ED: No PA Scribe Text THis EKG interpretation is scribed by ELSIE arreola. Chest X-Ray Diagnostic Results Chest X-Ray Diagnostic Results : Chest X-Ray Ordered: Yes # of Views/Limited/Complete: 1 View EP Interpretation: Yes PA Xray: Interpretation reviewed, by supervising MD, and agrees with findings. Interpretation: other - left sided pleural effusion Impression: Other - abnormal Electronically Signed by: Selam Arreola PA-C Last Vital Signs Date Time Temp Pulse Resp B/P (MAP) Pulse Ox O2 Delivery O2 Flow Rate FiO2 08/14/17 17:55 99.1 116 19 132/47 94 Nasal Cannula 3.0 99.1 Disposition: ADMITTED INPATIENT Condition: Serious Referrals: CHRISTINA MADRIGAL (PCP) Selam Arreola Aug 14, 2017 18:47
[2017-08-14] MEDS ORDERED: Clindamycin 600mg 50 ML IVPB ONE (20:00)
[2017-08-14 20:10] VITALS: BP_SYST 108; BP_SYST 126; BP_DIAS 59; BP_DIAS 60
[2017-08-14 20:53] LABS: BASOPHILS % (AUTO) 0.9 % (0.0-2.0); EOSINOPHILS % (AUTO) 7.8 % (0.0-3.0); HEMATOCRIT 33.4 % (37.0-47.0); HEMOGLOBIN 10.4 G/DL (12.0-16.0); LYMPHOCYTES % (AUTO) 9.9 % (20.0-45.0); MEAN CORPUSCULAR VOLUME 92 FL (80-99); MONOCYTES % (AUTO) 8.8 % (1.0-10.0); NEUTROPHILS % (AUTO) 72.6 % (45.0-75.0); PLATELET COUNT 227 K/UL (150-450); RED BLOOD COUNT 3.62 M/UL (4.20-5.40); RED CELL DISTRIBUTION WIDTH 12.6 % (11.6-14.8); WHITE BLOOD COUNT 16.9 K/UL (4.8-10.8)
[2017-08-14] MEDS ORDERED: Albuterol/Ipratropium 3ml neb HHN PRN (21:00)
[2017-08-14] MEDS ORDERED: Acetaminophen 650mg/20.3ml ORAL PRN (21:00)
[2017-08-14 21:05] LABS: ANION GAP 3 mmol/L (5-15); BLOOD UREA NITROGEN 22 mg/dL (7-18); CALCIUM 9.4 MG/DL (8.5-10.1); CARBON DIOXIDE 35 MMOL/L (21-32); CHLORIDE 98 MMOL/L (98-107); CREATININE 0.8 MG/DL (0.55-1.30); POTASSIUM 4.6 MMOL/L (3.5-5.1); SODIUM 136 MMOL/L (136-145)
[2017-08-14 21:18] LABS: ALANINE AMINOTRANSFERASE 16 U/L (12-78); ALBUMIN/GLOBULIN RATIO 0.6 (1.0-2.7); ALKALINE PHOSPHATASE 113 U/L (46-116); ASPARTATE AMINO TRANSFERASE 53 U/L (15-37); BILIRUBIN,TOTAL 0.3 MG/DL (0.2-1.0); CKMB < 0.5 NG/ML (0.0-3.6)
[2017-08-14] MEDS: Midodrine 10mg tab GT SCH (22:00)
[2017-08-14 22:30] VITALS: BP 118/51
[2017-08-14 23:00] VITALS: BP 104/25
[2017-08-14] MEDS: levETIRAcetam 500mg/5ml Liquid GT SCH (23:10)
[2017-08-14 23:30] VITALS: BP 100/33
[2017-08-15] VITALS (10 sets, daily range): BP systolic 79–117; BP diastolic 30–58
[2017-08-15 04:17] LABS: EOSINOPHILS % (AUTO) 7.7 % (0.0-3.0); HEMATOCRIT 28.9 % (37.0-47.0); HEMOGLOBIN 9.4 G/DL (12.0-16.0); LYMPHOCYTES % (AUTO) 7.6 % (20.0-45.0); MEAN CORPUSCULAR VOLUME 91 FL (80-99); MONOCYTES % (AUTO) 9.6 % (1.0-10.0); NEUTROPHILS % (AUTO) 74.1 % (45.0-75.0); PLATELET COUNT 210 K/UL (150-450); RED BLOOD COUNT 3.16 M/UL (4.20-5.40); RED CELL DISTRIBUTION WIDTH 12.3 % (11.6-14.8); WHITE BLOOD COUNT 14.7 K/UL (4.8-10.8)
[2017-08-15 04:35] LABS: ALANINE AMINOTRANSFERASE 14 U/L (12-78); ALBUMIN 2.6 G/DL (3.4-5.0); ALBUMIN/GLOBULIN RATIO 0.5 (1.0-2.7); ALKALINE PHOSPHATASE 97 U/L (46-116); ANION GAP 3 mmol/L (5-15); ASPARTATE AMINO TRANSFERASE 45 U/L (15-37); BILIRUBIN,TOTAL 0.4 MG/DL (0.2-1.0); BLOOD UREA NITROGEN 20 mg/dL (7-18); CALCIUM 9.4 MG/DL (8.5-10.1); CARBON DIOXIDE 37 MMOL/L (21-32); CHLORIDE 99 MMOL/L (98-107); CREATININE 0.7 MG/DL (0.55-1.30); POTASSIUM 4.6 MMOL/L (3.5-5.1); SODIUM 139 MMOL/L (136-145)
[2017-08-15] MEDS: Midodrine 10mg tab GT SCH ×3 (05:33→21:12)
[2017-08-15] MEDS: Magnesium Oxide 400mg tab GT SCH (08:27)
[2017-08-15] MEDS: levETIRAcetam 500mg/5ml Liquid GT SCH ×2 (08:27→20:00)
[2017-08-15] MEDS: Digoxin Elixir 0.125mg GT SCH (08:27)
[2017-08-15] MEDS: ceFAZolin sod 1 GM in NS 55 ML IVPB SCH ×2 (10:14→21:12)
--- NOTE | 2017-08-15 10:53 | Diagnostic Imaging Report ---
Indication: Shortness of breath Technique: One view of the chest Comparison: 04/12/2017 Findings: Left lung is nearly completely opacified with minimal aerated lung seen at the left lung apex. There is slight leftward shift of the mediastinum. The right lung and pleural space are clear. Tracheostomy is again demonstrated Impression: Near-complete opacification of the left lung. This may be due to near complete atelectasis of the left lung, versus massive left pleural effusion versus, less likely, combination of both
--- NOTE | 2017-08-15 15:16 | Cardiology Report ---
APPROVED REPORT EKG Measurement Heart [id number] [place] [id number] Sinus tachycardia Otherwise normal ECG
--- NOTE | 2017-08-15 15:18 | Cardiology Report ---
APPROVED REPORT EKG Measurement Heart [id number] [place] [id number] Sinus tachycardia Otherwise normal ECG
--- NOTE | 2017-08-15 16:45 | History and Physical Report ---
DATE OF ADMISSION: 08/14/2017 CHIEF COMPLAINT: Rash, cellulitis, possible scabies. HISTORY OF PRESENT ILLNESS: The patient is a pleasant, but unfortunate, 82-year-old female. She has a history of head and neck cancer, chronic respiratory failure, history of GI bleed, dysphagia status post G-tube. She is admitted with complaints of rash. According to the patient's family, she developed a rash over the last week. She has had severe itching. There are no reports of any new medications. There was no shortness of breath. No cough. No congestion. On evaluation in the emergency room, the patient had diffuse rash with multiple small papules. The patient notes severe itching. The patient's son also who is her holter scanning technician also notes that he has had some itching. There are no reports of any ill contacts. The patient has been at multiple extended care facilities. PAST MEDICAL HISTORY: As above. PAST SURGICAL HISTORY: History includes head and neck surgery, tracheostomy, and a G-tube. CURRENT MEDICATIONS: Reconciled and reviewed. ALLERGIES: Include penicillin. FAMILY HISTORY: Noncontributory. SOCIAL HISTORY: There is no known history of tobacco, ethanol, or drugs. REVIEW OF SYSTEMS: Unobtainable as the patient has a trach. PHYSICAL EXAMINATION: VITAL SIGNS: Temperature 98, pulse 107, respirations 27, blood pressure 98/48. GENERAL: The patient is well-developed, no apparent distress. She is awake, alert, follows commands. NECK: Supple. Trach site was midline and clean. HEART: Regular rate and rhythm. LUNGS: Significant for few scattered rhonchi. ABDOMEN: Soft, nontender, and nondistended. EXTREMITIES: Without clubbing, cyanosis, or edema. SKIN: The patient has diffuse rash, multiple small papules that are red, inflamed. LABORATORY DATA: White count of 17,000, hemoglobin 10, hematocrit 33. Sodium 136, potassium 4.6, and . ASSESSMENT: This is a pleasant female admitted with complaints of rash possibly secondary to scabies, cannot rule out cellulitis. 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 PLAN: Elimite application, IV antibiotics, ID consultation. Continue respiratory treatments. Continue G-tube feeds. Rico Madrigal M.D. DR: ANIBAL JOB#: [id number] CC:
[2017-08-16] VITALS: BP 100/50
--- NOTE | 2017-08-16 03:15 | Consultation ---
DATE OF CONSULTATION: 08/15/2017 CARDIOLOGY CONSULTATION CONSULTING PHYSICIAN: Chi Bhatti M.D. REQUESTING PHYSICIAN: Rico Madrigal M.D. REASON FOR CONSULTATION: Evaluation of antiarrhythmic therapy. HISTORY OF PRESENT ILLNESS: This is an unfortunate 82-year-old female with head and neck cancer, vent and tracheostomy. She was admitted to the hospital with a rash. She is being treated for possible scabies. She has a history of paroxysmal supraventricular tachyarrhythmias and atrial fibrillation. She is on digoxin. I have been asked to address continued therapy. PAST MEDICAL HISTORY: Notable for hypothyroidism, seizure disorder, head and neck cancer, paroxysmal SVT, and chronic hypotension. MEDICATIONS: Reviewed including digoxin 0.125 daily and ProAmatine 10 mg t.i.d. ALLERGIES: Penicillin. SOCIAL HISTORY: Negative for smoking or alcohol use. REVIEW OF SYSTEMS: Otherwise unremarkable. Her prior echocardiogram has revealed normal ejection fraction. PHYSICAL EXAMINATION: VITAL SIGNS: Blood pressure 101/49, pulse 111, respirations 20, and temperature 99.4. NECK: Trach site with no drainage. LUNGS: Coarse breath sounds with no wheezing. HEART: Regular rhythm. Rapid rate. Normal S1, S2. No murmur. ABDOMEN: Soft. G-tube intact. EXTREMITIES: No edema. G-tube in place. LABORATORY AND DIAGNOSTIC DATA: EKG, sinus tachycardia, no other abnormalities. Labs reviewed. IMPRESSION: 1. Head and neck cancer. 2. Respiratory failure with tracheostomy. 3. Secondary sinus tachycardia. 4. Chronic hypotension, controlled with midodrine. 5. Paroxysmal supraventricular tachycardia. 6. No systolic left ventricular dysfunction. RECOMMENDATIONS: 1. Discontinue digoxin. 2. Continue midodrine. 3. Withhold parameters for higher range blood pressure readings. 4. No additional antiarrhythmic therapy presently indicated. 5. Recurring atrial fibrillation may want initiation of amiodarone in the future. Chi Bhatti M.D. : JANAY JOB#: [id number] CC:
[2017-08-16 04:00] VITALS: BP 106/57
[2017-08-16] MEDS: Midodrine 10mg tab GT SCH ×3 (06:00→21:29)
[2017-08-16] MEDS: ceFAZolin sod 1 GM in NS 55 ML IVPB SCH ×3 (06:00→21:30)
[2017-08-16 08:00] VITALS: BP 136/68
--- NOTE | 2017-08-16 08:23 | General Progress Note ---
Assessment/Plan Problem List: (1) Cellulitis ICD Codes: L03.90 - Cellulitis, unspecified SNOMED: 513245050, 94424230 Qualifiers: Qualified Codes: L03.818 - Cellulitis of other sites (2) Rash and nonspecific skin eruption ICD Codes: R21 - Rash and other nonspecific skin eruption SNOMED: 984605419 (3) Scabies ICD Codes: B86 - Scabies SNOMED: 498345893, 83713866 (4) Respiratory failure ICD Codes: J96.90 - Respiratory failure, unspecified, unspecified whether with hypoxia or hypercapnia SNOMED: 498344488 Status: stable, progressing Assessment/Plan iv abx id eval resp care sutitoning skin care Subjective ROS Limited/Unobtainable: No Constitutional: Reports: malaise, weakness HEENT: Reports: no symptoms Cardiovascular: Reports: no symptoms Respiratory: Reports: cough, sputum Gastrointestinal/Abdominal: Reports: difficulty swallowing Genitourinary: Reports: no symptoms Neurologic/Psychiatric: Reports: no symptoms Endocrine: Reports: no symptoms Hematologic/Lymphatic: Reports: anemia Allergies: Coded Allergies: PENICILLINS (Verified Allergy, Unknown, 07/31/16) All Systems: reviewed and negative except above Subjective no complaints excepting itching and rash. mild secretions. no fever or chills. s /p elimite rx. on iv abx Objective Last 24 Hour Vital Signs Date Time Temp Pulse Resp B/P (MAP) Pulse Ox O2 Delivery O2 Flow Rate FiO2 08/16/17 08:00 109 08/16/17 06:40 101 18 T-piece 6.0 28 08/16/17 06:40 T-piece 6.0 28 08/16/17 06:40 96 T-piece 6.0 28 08/16/17 04:00 98.4 101 18 106/57 97 T-piece 28 98.4 08/16/17 04:00 117 08/16/17 04:00 28 08/16/17 00:00 111 08/16/17 00:00 98.2 105 18 100/50 95 T-piece 28 98.2 08/16/17 00:00 28 08/15/17 23:55 96 T-piece 6.0 28 08/15/17 23:55 T-piece 6.0 28 08/15/17 20:00 28 08/15/17 20:00 101 08/15/17 20:00 98.2 109 21 117/58 97 T-piece 28 98.2 08/15/17 18:55 97 T-piece 6.0 28 08/15/17 18:55 T-piece 6.0 28 08/15/17 18:55 109 20 T-piece 6.0 28 08/15/17 16:00 99.4 104 20 101/49 97 T-piece 28 99.4 08/15/17 16:00 111 08/15/17 16:00 28 08/15/17 13:24 T-piece 6.0 28 08/15/17 13:24 98 T-piece 6.0 28 08/15/17 12:00 28 08/15/17 12:00 98.5 99 22 103/50 99 T-piece 28 98.5 08/15/17 12:00 97 08/15/17 08:27 99 Intake and Output 08/15/17 08/16/17 19:00 07:00 Intake Total 405 ml 560 ml Output Total 300 ml 200 ml Balance 105 ml 360 ml Intake Free Water 100 ml 50 ml IV Total 55 ml 110 ml Tube Feeding 250 ml 400 ml Output Urine Total 300 ml 200 ml # Bowel Movements 1 Height (Feet): 4 Height (Inches): 10.00 Weight (Pounds): 110 General Appearance: WD/WN, alert Neck: supple Cardiovascular: regular rhythm Respiratory/Chest: chest wall non-tender, no respiratory distress, no accessory muscle use Abdomen: normal bowel sounds, non tender, soft, no organomegaly Edema: no edema noted Arm (L), no edema noted Arm (R), no edema noted Leg (L), no edema noted Leg (R), no edema noted Pedal (L), no edema noted Pedal (R), no edema noted Generalized Neurologic: alert, responsive CHRISTINA HAMMOND Aug 16, 2017 08:22
[2017-08-16] MEDS: levETIRAcetam 500mg/5ml Liquid GT SCH ×2 (09:14→20:05)
[2017-08-16] MEDS: Digoxin Elixir 0.125mg GT SCH (09:14)
[2017-08-16] MEDS: Magnesium Oxide 400mg tab GT SCH (09:15)
[2017-08-16 12:00] VITALS: BP 105/50
[2017-08-16 16:00] VITALS: BP 125/67
--- NOTE | 2017-08-16 18:30 | Consultation ---
DATE OF CONSULTATION: 08/16/2017 INFECTIOUS DISEASES CONSULTATION This consult is for coverage of Dr. Charles. CONSULTING PHYSICIAN: Rodney Caicedo M.D. PRIMARY ATTENDING PHYSICIAN: Rico Madrigal M.D. REASON FOR CONSULTATION: Rash HISTORY OF PRESENT ILLNESS: The patient is an 82-year-old female admitted on August 14, 2017 from home complaining of rash for a couple of weeks started on the back, it is itching. The patient also had leukocytosis. No fever. PAST MEDICAL HISTORY: Significant for COPD, mouth cancer status post tracheostomy, status post G-tube, hypothyroidism, has history of GI bleeding, chronic respiratory failure. ALLERGIES: Allergy to penicillin. MEDICATIONS: Getting diphenhydramine, cefazolin, digoxin, levothyroxine, magnesium oxide, midodrine, amitriptyline, Keppra, albuterol ipratropium inhaler, and Tylenol. SOCIAL HISTORY: Lives at home, . REVIEW OF SYSTEMS: Very limited, complaining of itching in the back. PHYSICAL EXAMINATION: VITAL SIGNS: Temperature 98.2, pulse 109, afebrile since admission, blood pressure 136/68. GENERAL APPEARANCE: No acute distress. HEAD AND NECK: Status post tracheostomy. HEART: Tachycardiac. LUNGS: The patient is on T bar decreased sounds in the left lung. ABDOMEN: G-tube feeding. EXTREMITIES: Has peripheral line. No edema. SKIN: Have rash mainly in the back. NEUROLOGIC: Awake and responsive. LABORATORY AND DIAGNOSTIC DATA: WBC 14.7, hemoglobin 9.4, hematocrit 28.9, platelets 210. Eosinophilia is 7.7%. Sodium 139, potassium 4.6, chloride 99, bicarb 37, BUN 20, creatinine 0.7, and glucose 103. Blood culture x2 are negative. Chest x-ray show near complete opacification of left lung, atelectasis versus massive left pleural effusion. IMPRESSION: Rash, may have a scabies. The patient is getting treatment with Elimite, cannot rule out cellulitis especially in the back. The patient has eosinophilia, leukocytosis, left lung collapse, chronic obstructive pulmonary disease, history of mouth cancer, chronic respiratory failure, status post G-tube, status post tracheostomy. RECOMMENDATIONS: 1. We will continue cefazolin. 2. We will add doxycycline. 3. We will follow up the cultures. At the end of my exam, I thank Dr. Madrigal, for involving me in the care of this patient. Rodney Caicedo M.D. DR: Jasmeet JOB#: [id number] CC: MCKENZIE
[2017-08-16 20:00] VITALS: BP 114/61
[2017-08-17] VITALS: BP 106/50
--- NOTE | 2017-08-17 03:15 | Progress Note ---
DATE: 08/16/2017 CARDIOLOGY PROGRESS NOTE SUBJECTIVE: Still with itching and rash. Mild secretions on trach collar, status post therapy. Monitor, sinus tachycardia. OBJECTIVE: VITAL SIGNS: Blood pressure 106/57, pulse 101, and respiratory rate 18. LUNGS: Few secretions. No rales or wheezes. HEART: Regular rhythm, rapid rate. Normal S1 and S2. ABDOMEN: Soft. No edema. G-tube intact. IMPRESSION: 1. Head and neck cancer. 2. Respiratory failure with trach. 3. Secondary sinus tachycardia. 4. Paroxysmal supraventricular tachycardia. 5. Chronic hypotension, controlled with midodrine. 6. No history of systolic dysfunction. PLAN: 1. Add low-dose carvedilol. 2. Discontinue digoxin. 3. Titrate midodrine. Chi Bhatti M.D. DR: MYRNA JOB#: [id number] CC:
[2017-08-17 04:00] VITALS: BP 100/51
[2017-08-17] MEDS: ceFAZolin sod 1 GM in NS 55 ML IVPB SCH ×3 (05:00→22:00)
[2017-08-17] MEDS: Midodrine 10mg tab GT SCH ×3 (05:00→22:00)
--- NOTE | 2017-08-17 07:49 | General Progress Note ---
Assessment/Plan Problem List: (1) Cellulitis ICD Codes: L03.90 - Cellulitis, unspecified SNOMED: 834136489, 81759342 Qualifiers: Qualified Codes: L03.818 - Cellulitis of other sites (2) Rash and nonspecific skin eruption ICD Codes: R21 - Rash and other nonspecific skin eruption SNOMED: 906770030 (3) Scabies ICD Codes: B86 - Scabies SNOMED: 238459055, 40880067 (4) Respiratory failure ICD Codes: J96.90 - Respiratory failure, unspecified, unspecified whether with hypoxia or hypercapnia SNOMED: 254238536 Status: stable, progressing Assessment/Plan iv abx id eval appreciated resp care sutitoning skin care check labs Subjective ROS Limited/Unobtainable: No Constitutional: Reports: malaise, weakness HEENT: Reports: no symptoms Cardiovascular: Reports: no symptoms Respiratory: Reports: no symptoms Gastrointestinal/Abdominal: Reports: difficulty swallowing Genitourinary: Reports: no symptoms Neurologic/Psychiatric: Reports: no symptoms Endocrine: Reports: no symptoms Hematologic/Lymphatic: Reports: no symptoms Allergies: Coded Allergies: PENICILLINS (Verified Allergy, Unknown, 07/31/16) All Systems: reviewed and negative except above Subjective ?rash slightly better. still itching. +blood culture noted. on iv and po abx. Objective Last 24 Hour Vital Signs Date Time Temp Pulse Resp B/P (MAP) Pulse Ox O2 Delivery O2 Flow Rate FiO2 08/17/17 07:22 97 T-piece 6.0 28 08/17/17 07:22 T-piece 6.0 28 08/17/17 07:22 109 18 T-piece 6.0 08/17/17 04:00 98.4 107 22 100/51 98 T-piece 28 98.4 08/17/17 04:00 6.0 28 08/17/17 03:32 124 08/17/17 01:14 98 T-piece 6.0 28 08/17/17 01:14 T-piece 6.0 28 08/17/17 00:00 6.0 28 08/17/17 00:00 98.9 112 24 106/50 97 T-piece 28 98.9 08/16/17 23:37 119 08/16/17 20:34 99 T-piece 6.0 28 08/16/17 20:34 105 18 T-piece 6.0 28 08/16/17 20:34 T-piece 6.0 28 08/16/17 20:00 98.7 106 22 114/61 99 T-piece 28 98.7 08/16/17 20:00 6.0 28 08/16/17 19:07 110 08/16/17 16:00 6.0 28 08/16/17 16:00 111 08/16/17 16:00 99.1 107 18 125/67 95 T-piece 28 99.1 08/16/17 13:30 95 T-piece 6.0 28 08/16/17 13:30 T-piece 6.0 28 08/16/17 12:00 117 08/16/17 12:00 6.0 28 08/16/17 12:00 98.2 105 17 105/50 97 T-piece 28 98.2 08/16/17 09:14 109 08/16/17 08:00 6.0 28 08/16/17 08:00 109 08/16/17 08:00 98.2 109 20 136/68 95 T-piece 28 98.2 Intake and Output 08/16/17 08/17/17 19:00 07:00 Intake Total 685 ml 670 ml Output Total 550 ml 285 ml Balance 135 ml 385 ml Intake Free Water 50 ml 50 ml IV Total 55 ml 220 ml Tube Feeding 480 ml 400 ml Other 100 ml Output Urine Total 550 ml 285 ml # Bowel Movements 2 4 Height (Feet): 4 Height (Inches): 10.00 Weight (Pounds): 110 Objective General Appearance: WD/WN, alert Neck: supple Cardiovascular: regular rhythm Respiratory/Chest: chest wall non-tender, no respiratory distress, no accessory muscle use Abdomen: normal bowel sounds, non tender, soft, no organomegaly Edema: no edema noted Arm (L), no edema noted Arm (R), no edema noted Leg (L), no edema noted Leg (R), no edema noted Pedal (L), no edema noted Pedal (R), no edema noted Generalized Neurologic: alert, responsive CHRISTINA HAMMOND Aug 17, 2017 07:48
[2017-08-17 08:00] VITALS: BP 127/63
[2017-08-17] MEDS: levETIRAcetam 500mg/5ml Liquid GT SCH ×2 (09:06→22:00)
[2017-08-17] MEDS: Magnesium Oxide 400mg tab GT SCH (09:06)
[2017-08-17 09:22] LABS: BASOPHILS % (AUTO) 0.9 % (0.0-2.0); EOSINOPHILS % (AUTO) 7.8 % (0.0-3.0); HEMATOCRIT 30.5 % (37.0-47.0); HEMOGLOBIN 9.8 G/DL (12.0-16.0); LYMPHOCYTES % (AUTO) 10.1 % (20.0-45.0); MEAN CORPUSCULAR VOLUME 90 FL (80-99); NEUTROPHILS % (AUTO) 70.3 % (45.0-75.0); PLATELET COUNT 229 K/UL (150-450); RED BLOOD COUNT 3.37 M/UL (4.20-5.40); RED CELL DISTRIBUTION WIDTH 12.5 % (11.6-14.8)
[2017-08-17 09:49] LABS: ALANINE AMINOTRANSFERASE 9 U/L (12-78); ALBUMIN 2.6 G/DL (3.4-5.0); ALBUMIN/GLOBULIN RATIO 0.5 (1.0-2.7); ALKALINE PHOSPHATASE 100 U/L (46-116); ANION GAP 5 mmol/L (5-15); ASPARTATE AMINO TRANSFERASE 45 U/L (15-37); BILIRUBIN,TOTAL 0.2 MG/DL (0.2-1.0); BLOOD UREA NITROGEN 22 mg/dL (7-18); CALCIUM 8.8 MG/DL (8.5-10.1); CARBON DIOXIDE 33 MMOL/L (21-32); CHLORIDE 101 MMOL/L (98-107); CREATININE 0.8 MG/DL (0.55-1.30); POTASSIUM 4.2 MMOL/L (3.5-5.1); SODIUM 139 MMOL/L (136-145)
--- NOTE | 2017-08-17 11:58 | Wound Care Consultation ---
Wound Assessment Wound Assessment #1: Wound Number: 1 Wound Present on Admission: Yes New Wound: No Status Change of Wound: No Wound Location Body Site Modif: upper Wound Location Body Site: back Wound Type: rash Ross Test: Does not Ross Wound Drainage Amount: None Wound Drainage Odor: None/Absent Tissue Surrounding Wound: Intact Wound General Appearance: Reddened Wound Assessment #2: Wound Number: 2 Wound Present on Admission: Yes New Wound: No Status Change of Wound: No Wound Location Body Site Modif: mid Wound Location Body Site: other - sacrococcygeal Wound Type: scar Ross Test: Does not Ross Pressure Ulcer Stage: Deep Tissue Injury Wound Thickness: Full Thickness Wound Length: 5.5 Wound Width: 4.5 Percent of Wound [place]/Red: 100 Wound Drainage Amount: None Wound Drainage Odor: None/Absent Tissue Surrounding Wound: Intact Wound General Appearance: Reddened Wound Assessment #3: Wound Number: 3 Wound Present on Admission: Yes New Wound: No Status Change of Wound: No Wound Location Body Site: perineal area Wound Type: chemical burn Ross Test: Does not Ross Percent of Wound [place]/Red: 100 Wound Drainage Amount: None Wound Drainage Odor: None/Absent Tissue Surrounding Wound: Erythemic Wound General Appearance: Reddened Wound Comment #1 Rashes due to scabies on the back area and left and right upper and lower extremities #2 Sacrococcygeal full thickness Scar tissue #3 Chemical burn on perineal area Recommendation -Local wound care per protocol -Offload both heels -Heel protector on both heels -Optimize nutrition -Low air loss mattress -Keep clean and dry -Turn and reposition -Assess and f/u accordingly for any changes TOMA CORTES RN Aug 17, 2017 11:58
[2017-08-17 12:00] VITALS: BP 95/54
--- NOTE | 2017-08-17 12:50 | Infectious Diseases Prog Note ---
Assessment/Plan Assessment/Plan antibiotics : ancef, doxycycline A 1. ? scabies s/p rx 2. back cellulitis 3. pneumonia 4. leucocytosis 5. COPD P 1. continue ancef, doxycycline 2. will follow up cultures Subjective ROS Limited/Unobtainable: Yes Allergies: Coded Allergies: PENICILLINS (Verified Allergy, Unknown, 07/31/16) Objective Vital Signs Last 24 Hour Vital Signs Date Time Temp Pulse Resp B/P (MAP) Pulse Ox O2 Delivery O2 Flow Rate FiO2 08/17/17 12:00 6.0 28 08/17/17 12:00 97.9 90 22 95/54 98 T-piece 28 97.9 08/17/17 11:57 92 08/17/17 09:06 117 127/63 08/17/17 08:11 117 08/17/17 08:00 6.0 28 08/17/17 08:00 98.8 115 26 127/63 97 T-piece 28 98.8 08/17/17 07:22 97 T-piece 6.0 28 08/17/17 07:22 T-piece 6.0 28 08/17/17 07:22 109 18 T-piece 6.0 28 08/17/17 04:00 98.4 107 22 100/51 98 T-piece 28 98.4 08/17/17 04:00 6.0 28 08/17/17 03:32 124 08/17/17 01:14 98 T-piece 6.0 28 08/17/17 01:14 T-piece 6.0 28 08/17/17 00:00 6.0 28 08/17/17 00:00 98.9 112 24 106/50 97 T-piece 28 98.9 08/16/17 23:37 119 08/16/17 20:34 99 T-piece 6.0 28 08/16/17 20:34 105 18 T-piece 6.0 28 08/16/17 20:34 T-piece 6.0 28 08/16/17 20:00 98.7 106 22 114/61 99 T-piece 28 98.7 08/16/17 20:00 6.0 28 08/16/17 19:07 110 08/16/17 16:00 6.0 28 08/16/17 16:00 111 08/16/17 16:00 99.1 107 18 125/67 95 T-piece 28 99.1 08/16/17 13:30 95 T-piece 6.0 28 08/16/17 13:30 T-piece 6.0 28 Height (Feet): 4 Height (Inches): 10.00 Weight (Pounds): 110 HEENT: status post trach Respiratory/Chest: lungs clear Cardiovascular: normal rate, regular rhythm, no gallop/murmur Abdomen: soft, non tender, other - GT Extremities: no edema Skin: rash - erythematous rash Microbiology Date/Time Source Procedure Growth Status 08/14/17 20:15 Blood Blood Culture - Preliminary NO GROWTH AFTER 48 HOURS Resulted 08/14/17 20:00 Blood Blood Culture - Preliminary Staphylococcus Sp Coag Neg Resulted 08/15/17 00:45 Nasal Nares MRSA Culture - Final NO METHICILLIN RESISTANT STAPH AUREUS... Complete 08/15/17 00:45 Rectum VRE Culture - Final Enterococcus Faecalis - Vre Complete Laboratory Tests Test 08/17/17 08:45 White Blood Count 16.0 K/UL (4.8-10.8) H Red Blood Count 3.37 M/UL (4.20-5.40) L Hemoglobin 9.8 G/DL (12.0-16.0) L Hematocrit 30.5 % (37.0-47.0) L Mean Corpuscular Volume 90 FL (80-99) Mean Corpuscular Hemoglobin 29.0 PG (27.0-31.0) Mean Corpuscular Hemoglobin Concent 32.1 G/DL (32.0-36.0) Red Cell Distribution Width 12.5 % (11.6-14.8) Platelet Count 229 K/UL (150-450) Mean Platelet Volume 8.0 FL (6.5-10.1) Neutrophils (%) (Auto) 70.3 % (45.0-75.0) Lymphocytes (%) (Auto) 10.1 % (20.0-45.0) L Monocytes (%) (Auto) 11.0 % (1.0-10.0) H Eosinophils (%) (Auto) 7.8 % (0.0-3.0) H Basophils (%) (Auto) 0.9 % (0.0-2.0) Sodium Level 139 MMOL/L (136-145) Potassium Level 4.2 MMOL/L (3.5-5.1) Chloride Level 101 MMOL/L (98-107) Carbon Dioxide Level 33 MMOL/L (21-32) H Anion Gap 5 mmol/L (5-15) Blood Urea Nitrogen 22 mg/dL (7-18) H Creatinine 0.8 MG/DL (0.55-1.30) Estimat Glomerular Filtration Rate mL/min (>60) Glucose Level 132 MG/DL (74-106) H Calcium Level 8.8 MG/DL (8.5-10.1) Total Bilirubin 0.2 MG/DL (0.2-1.0) Aspartate Amino Transf (AST/SGOT) 45 U/L (15-37) H Alanine Aminotransferase (ALT/SGPT) 9 U/L (12-78) L Alkaline Phosphatase 100 U/L (46-116) Total Protein 7.6 G/DL (6.4-8.2) Albumin 2.6 G/DL (3.4-5.0) L Globulin 5.0 g/dL Albumin/Globulin Ratio 0.5 (1.0-2.7) L MARA BLOCK Aug 17, 2017 12:50
[2017-08-17 16:00] VITALS: BP 120/60
[2017-08-17 20:00] VITALS: BP 100/56
[2017-08-17] MEDS ORDERED: NS 275ml ONE (22:42)
[2017-08-17] MEDS ORDERED: Tubing IV Secondary IV ONE (22:42)
[2017-08-18] VITALS: BP 105/50
[2017-08-18] MEDS: DiphenhydrAMINE 50mg/ml Inj IVP PRN ×3 (00:21→12:17)
[2017-08-18 04:00] VITALS: BP 110/55
--- NOTE | 2017-08-18 04:15 | Progress Note ---
DATE: 08/14/2017 CARDIOLOGY PROGRESS NOTE SUBJECTIVE: The patient is still itching. She is status post therapy topically for scabies. She has a positive blood culture noted, likely contaminant. She remains on a T-piece. Monitored rhythm sinus tachycardia. OBJECTIVE: LUNGS: Thin trach secretions. Bilateral breath sounds. Few rhonchi. No wheezing.0 HEART: Regular rhythm. Rapid rate. Normal S1, S2 with no new murmur. ABDOMEN: Soft with G-tube, no edema. EXTREMITIES: Muscle atrophy in the extremities. LABORATORY DATA: White count 16, hemoglobin 9.8. Potassium 4.2, BUN 22, creatinine 0.8. IMPRESSION: 1. Possible bacteremia status post scabies therapy. 2. Secondary sinus tachycardia. 3. Paroxysmal supraventricular tachycardia. 4. Respiratory failure. 5. Head and neck cancer. 6. Chronic hypotension. PLAN: 1. Re-culture. 2. Titrate beta-diego off digoxin. 3. Midodrine for low blood pressure, which is likely centrally mediated. Chi Bhatti M.D. DR: NADYA JOB#: [id number] CC:
[2017-08-18] MEDS: Midodrine 10mg tab GT SCH ×3 (06:39→22:23)
[2017-08-18] MEDS: ceFAZolin sod 1 GM in NS 55 ML IVPB SCH ×3 (06:40→22:23)
[2017-08-18 08:00] VITALS: BP 94/48
--- NOTE | 2017-08-18 08:26 | General Progress Note ---
Assessment/Plan Problem List: (1) Cellulitis ICD Codes: L03.90 - Cellulitis, unspecified SNOMED: 990303275, 95031269 Qualifiers: Qualified Codes: L03.818 - Cellulitis of other sites (2) Rash and nonspecific skin eruption ICD Codes: R21 - Rash and other nonspecific skin eruption SNOMED: 861532499 (3) Scabies ICD Codes: B86 - Scabies SNOMED: 863689021, 70541133 (4) Respiratory failure ICD Codes: J96.90 - Respiratory failure, unspecified, unspecified whether with hypoxia or hypercapnia SNOMED: 881604323 Status: stable, progressing Assessment/Plan iv abx id eval appreciated resp care sutitoning skin care check labs check urine studies Subjective ROS Limited/Unobtainable: No Constitutional: Reports: malaise, weakness HEENT: Reports: no symptoms Cardiovascular: Reports: no symptoms Respiratory: Reports: cough Gastrointestinal/Abdominal: Reports: difficulty swallowing Genitourinary: Reports: no symptoms Neurologic/Psychiatric: Reports: no symptoms Endocrine: Reports: no symptoms Hematologic/Lymphatic: Reports: anemia Allergies: Coded Allergies: PENICILLINS (Verified Allergy, Unknown, 07/31/16) All Systems: reviewed and negative except above Subjective still itching. remains on iv abx. no fever or chills. no congestion. tolerating feeds wbc remains elevated at 16k Objective Last 24 Hour Vital Signs Date Time Temp Pulse Resp B/P (MAP) Pulse Ox O2 Delivery O2 Flow Rate FiO2 08/18/17 08:00 97.9 98 22 94/48 96 T-piece 28 97.9 08/18/17 04:00 6.0 28 08/18/17 04:00 102 08/18/17 04:00 98.2 102 24 110/55 97 T-piece 28 98.2 08/18/17 01:10 98 T-piece 6.0 28 08/18/17 01:10 T-piece 6.0 28 08/18/17 00:00 6.0 28 08/18/17 00:00 98.1 99 24 105/50 96 T-piece 28 98.1 08/18/17 00:00 99 08/17/17 21:00 100 100/56 08/17/17 20:00 97.1 100 26 100/56 97 T-piece 28 97.1 08/17/17 20:00 98 08/17/17 20:00 6.0 28 08/17/17 19:00 77 18 T-piece 6.0 28 08/17/17 19:00 99 T-piece 6.0 28 08/17/17 19:00 T-piece 6.0 28 08/17/17 16:00 6.0 28 08/17/17 16:00 98.6 96 28 120/60 97 T-piece 28 98.6 08/17/17 15:46 97 08/17/17 12:48 T-piece 6.0 28 08/17/17 12:48 98 T-piece 6.0 28 08/17/17 12:00 6.0 28 08/17/17 12:00 97.9 90 22 95/54 98 T-piece 28 97.9 08/17/17 11:57 92 08/17/17 09:06 117 127/63 Intake and Output 08/17/17 08/18/17 19:00 07:00 Intake Total 635 ml 595 ml Output Total 200 ml Balance 635 ml 395 ml IV Total 55 ml 55 ml Tube Feeding 480 ml 480 ml Other 100 ml 60 ml Output Urine Total 200 ml # Bowel Movements 5 2 Laboratory Tests 08/17/17 08:45: White Blood Count 16.0H, Red Blood Count 3.37L, Hemoglobin 9.8L, Hematocrit 30.5L, Mean Corpuscular Volume 90, Mean Corpuscular Hemoglobin 29.0, Mean Corpuscular Hemoglobin Concent 32.1, Red Cell Distribution Width 12.5, Platelet Count 229, Mean Platelet Volume 8.0, Neutrophils (%) (Auto) 70.3, Lymphocytes (% ) (Auto) 10.1L, Monocytes (%) (Auto) 11.0H, Eosinophils (%) (Auto) 7.8H, Basophils (%) (Auto) 0.9, Sodium Level 139, Potassium Level 4.2, Chloride Level 101, Carbon Dioxide Level 33H, Anion Gap 5, Blood Urea Nitrogen 22H, Creatinine 0.8, Estimat Glomerular Filtration Rate , Glucose Level 132H, Calcium Level 8.8 , Total Bilirubin 0.2, Aspartate Amino Transf (AST/SGOT) 45H, Alanine Aminotransferase (ALT/SGPT) 9L, Alkaline Phosphatase 100, Total Protein 7.6, Albumin 2.6L, Globulin 5.0, Albumin/Globulin Ratio 0.5L Height (Feet): 4 Height (Inches): 10.00 Weight (Pounds): 110 Objective General Appearance: WD/WN, alert Neck: supple Cardiovascular: regular rhythm Respiratory/Chest: chest wall non-tender, no respiratory distress, no accessory muscle use Abdomen: normal bowel sounds, non tender, soft, no organomegaly Edema: no edema noted Arm (L), no edema noted Arm (R), no edema noted Leg (L), no edema noted Leg (R), no edema noted Pedal (L), no edema noted Pedal (R), no edema noted Generalized Neurologic: alert, responsive CHRISTINA HAMMOND Aug 18, 2017 08:25
[2017-08-18] MEDS: Magnesium Oxide 400mg tab GT SCH (08:31)
[2017-08-18] MEDS: levETIRAcetam 500mg/5ml Liquid GT SCH ×2 (08:31→21:08)
--- NOTE | 2017-08-18 11:12 | Infectious Diseases Prog Note ---
Assessment/Plan Assessment/Plan antibiotics : ancef, doxycycline A 1. ? scabies s/p rx 2. back cellulitis 3. pneumonia 4. leucocytosis 5. COPD 6. + blood cultures with coag neg staph likely contaminated 7. rectal VRE colonization P 1. continue ancef, doxycycline 2. will follow up cultures Subjective ROS Limited/Unobtainable: Yes Allergies: Coded Allergies: PENICILLINS (Verified Allergy, Unknown, 07/31/16) Objective Vital Signs Last 24 Hour Vital Signs Date Time Temp Pulse Resp B/P (MAP) Pulse Ox O2 Delivery O2 Flow Rate FiO2 08/18/17 08:00 97.9 98 22 94/48 96 T-piece 28 97.9 08/18/17 08:00 6.0 28 08/18/17 08:00 102 08/18/17 06:30 T-piece 6.0 28 08/18/17 06:30 94 18 T-piece 6.0 28 08/18/17 06:30 99 T-piece 6.0 28 08/18/17 04:00 6.0 28 08/18/17 04:00 102 08/18/17 04:00 98.2 102 24 110/55 97 T-piece 28 98.2 08/18/17 01:10 98 T-piece 6.0 28 08/18/17 01:10 T-piece 6.0 28 08/18/17 00:00 6.0 28 08/18/17 00:00 98.1 99 24 105/50 96 T-piece 28 98.1 08/18/17 00:00 99 08/17/17 21:00 100 100/56 08/17/17 20:00 97.1 100 26 100/56 97 T-piece 28 97.1 08/17/17 20:00 98 08/17/17 20:00 6.0 28 08/17/17 19:00 77 18 T-piece 6.0 28 08/17/17 19:00 99 T-piece 6.0 28 08/17/17 19:00 T-piece 6.0 28 08/17/17 16:00 6.0 28 08/17/17 16:00 98.6 96 28 120/60 97 T-piece 28 98.6 08/17/17 15:46 97 08/17/17 12:48 T-piece 6.0 28 08/17/17 12:48 98 T-piece 6.0 28 08/17/17 12:00 6.0 28 08/17/17 12:00 97.9 90 22 95/54 98 T-piece 28 97.9 08/17/17 11:57 92 Height (Feet): 4 Height (Inches): 10.00 Weight (Pounds): 110 HEENT: status post trach Respiratory/Chest: lungs clear Cardiovascular: normal rate, regular rhythm, no gallop/murmur Abdomen: soft, non tender, other - GT Extremities: no edema Skin: rash - erythematous MARA BLOCK Aug 18, 2017 11:12
[2017-08-18] MEDS ORDERED: Tubing IV Secondary IV ONE (11:18)
[2017-08-18] MEDS ORDERED: NS 275ml ONE (11:18)
[2017-08-18] MEDS ORDERED: Sterile Water Irrig 1000ml IRRIG ONE (11:18)
[2017-08-18 11:56] VITALS: BP 97/46
[2017-08-18 13:53] LABS: APPEARANCE,URINE CLEAR; BILIRUBIN, URINE NEGATIVE (NEGATIVE); GLUCOSE, URINE (UA) NEGATIVE (NEGATIVE); KETONES,URINE NEGATIVE (NEGATIVE); LEUKOCYTE ESTERASE ,URINE 2+ (NEGATIVE); NITRITE,URINE NEGATIVE (NEGATIVE); PH,URINE 6 (4.5-8.0); PROTEIN,URINE 1+ (NEGATIVE); UROBILINOGEN,URINE NORMAL MG/DL (0.0-1.0)
[2017-08-18 14:03] LABS: COLOR,URINE YELLOW
[2017-08-18 15:43] VITALS: BP 103/61
[2017-08-18 20:00] VITALS: BP 108/55
[2017-08-19] VITALS: BP 100/50
[2017-08-19] MEDS: DiphenhydrAMINE 50mg/ml Inj IVP PRN ×3 (03:06→16:16)
[2017-08-19 04:00] VITALS: BP 98/51
[2017-08-19] MEDS: ceFAZolin sod 1 GM in NS 55 ML IVPB SCH (05:56)
[2017-08-19] MEDS: Midodrine 10mg tab GT SCH ×3 (06:26→22:26)
[2017-08-19 08:00] VITALS: BP 115/54
[2017-08-19] MEDS: levETIRAcetam 500mg/5ml Liquid GT SCH ×2 (08:47→22:25)
[2017-08-19] MEDS: Magnesium Oxide 400mg tab GT SCH (08:48)
--- NOTE | 2017-08-19 10:16 | Infectious Diseases Prog Note ---
Assessment/Plan Assessment/Plan A 1. ? scabies s/p rx 2. back cellulitis 3. pneumonia 4. leucocytosis 5. COPD 6. + blood cultures with coag neg staph likely contaminated 7. rectal VRE colonization P 1. change Ancef to Keflex, continue doxycycline 2. will follow up cultures Subjective ROS Limited/Unobtainable: Yes Constitutional: Reports: no symptoms Cardiovascular: Reports: other - no IV access Gastrointestinal/Abdominal: Reports: diarrhea, other - soft stool Allergies: Coded Allergies: PENICILLINS (Verified Allergy, Unknown, 07/31/16) Objective Vital Signs Last 24 Hour Vital Signs Date Time Temp Pulse Resp B/P (MAP) Pulse Ox O2 Delivery O2 Flow Rate FiO2 08/19/17 08:48 95 115/54 08/19/17 08:00 99.1 95 19 115/54 100 T-piece 28 99.1 08/19/17 08:00 6.0 28 08/19/17 06:55 98 T-piece 6.0 28 08/19/17 06:55 T-piece 6.0 28 08/19/17 06:55 92 18 T-piece 6.0 28 08/19/17 04:00 86 08/19/17 04:00 97.3 80 22 98/51 100 T-piece 28 97.3 08/19/17 04:00 6.0 28 08/19/17 03:35 87 08/19/17 01:20 T-piece 6.0 28 08/19/17 01:20 98 T-piece 6.0 28 08/19/17 00:00 6.0 28 08/19/17 00:00 86 08/19/17 00:00 97.9 80 22 100/50 98 T-piece 28 97.9 08/18/17 21:07 106 108/55 08/18/17 20:28 T-piece 6.0 28 08/18/17 20:28 100 T-piece 6.0 28 08/18/17 20:28 81 22 T-piece 6.0 28 08/18/17 20:00 97.5 82 22 108/55 97 T-piece 28 97.5 08/18/17 20:00 85 08/18/17 20:00 6.0 28 08/18/17 15:49 81 08/18/17 15:43 98.3 82 22 103/61 100 T-piece 28 98.3 08/18/17 12:07 T-piece 6.0 28 08/18/17 12:07 98 T-piece 6.0 28 08/18/17 11:56 97.2 80 22 97/46 100 T-piece 28 97.2 08/18/17 11:48 97 Height (Feet): 4 Height (Inches): 10.00 Weight (Pounds): 110 General Appearance: no acute distress HEENT: status post trach Respiratory/Chest: decreased breath sounds, other - on T bar Cardiovascular: normal rate Abdomen: soft, non tender, other - GT feeding Extremities: no edema Skin: rash Neurologic/Psychiatric: alert, responsive Laboratory Tests Test 08/18/17 13:30 Urine Color Yellow Urine Appearance Clear Urine pH 6 (4.5-8.0) Urine Specific [place] 1.015 (1.005-1.035) Urine Protein 1+ (NEGATIVE) H Urine Glucose (UA) Negative (NEGATIVE) Urine Ketones Negative (NEGATIVE) Urine Occult Blood 1+ (NEGATIVE) H Urine Nitrite Negative (NEGATIVE) Urine Bilirubin Negative (NEGATIVE) Urine Urobilinogen Normal MG/DL (0.0-1.0) Urine Leukocyte Esterase 2+ (NEGATIVE) H Urine RBC 2-4 /HPF (0 - 2) H Urine WBC 5-10 /HPF (0 - 2) H Urine Squamous Epithelial Cells Occasional /LPF Urine Bacteria Occasional /HPF (NONE) Current Medications Medications (Trade) Dose Ordered Sig/Josiah Route PRN Reason Start Time Stop Time Status Last Admin Dose Admin Acetaminophen (Tylenol) 500 mg Q4H PRN ORAL Mild Pain/Temp > 100.5 08/14/17 21:00 09/13/17 20:59 Albuterol/ Ipratropium (Albuterol/ Ipratropium) 3 ml Q4H PRN HHN Shortness of Breath 08/14/17 21:00 08/19/17 20:59 Amitriptyline HCl (Elavil) 10 mg BEDTIME GT 08/14/17 21:00 09/13/17 20:59 08/18/17 21:09 Carvedilol (Coreg) 3.125 mg EVERY 12 HOURS ORAL 08/17/17 09:00 09/16/17 08:59 08/19/17 08:48 Cefazolin Sodium 1 gm/Sodium Chloride 55 ml @ 110 mls/hr Q8HR IVPB 08/15/17 09:30 08/22/17 09:29 08/19/17 05:56 Diphenhydramine HCl (Benadryl) 25 mg Q4H PRN IVP Itching 08/15/17 15:15 09/14/17 15:14 08/19/17 08:48 Doxycycline Monohydrate (Vibramycin) 100 mg EVERY 12 HOURS GT 08/16/17 12:00 08/23/17 11:59 08/19/17 08:47 Levetiracetam (Keppra) 500 mg Q12HR GT 08/14/17 21:00 09/13/17 20:59 08/19/17 08:47 Levothyroxine Sodium (Synthroid) 150 mcg DAILY@0700 GT 08/15/17 07:00 09/14/17 06:59 08/19/17 06:50 Magnesium Oxide (Mag-Ox 400mg) 400 mg DAILY GT 08/15/17 09:00 09/14/17 08:59 08/19/17 08:48 Midodrine (Pro-Amatine) 10 mg Q8HR GT 08/14/17 22:00 09/13/17 21:59 08/19/17 06:26 JENNIFER MCKEE 18, 2018 10:15
--- NOTE | 2017-08-19 11:27 | General Progress Note ---
Assessment/Plan Problem List: (1) Cellulitis ICD Codes: L03.90 - Cellulitis, unspecified SNOMED: 791641121, 41632759 Qualifiers: Qualified Codes: L03.818 - Cellulitis of other sites (2) Rash and nonspecific skin eruption ICD Codes: R21 - Rash and other nonspecific skin eruption SNOMED: 275265767 (3) Scabies ICD Codes: B86 - Scabies SNOMED: 730642757, 10827820 (4) Respiratory failure ICD Codes: J96.90 - Respiratory failure, unspecified, unspecified whether with hypoxia or hypercapnia SNOMED: 540686518 Status: stable, progressing Assessment/Plan iv abx id eval appreciated resp care sutitoning skin care monitor wbc ?dc planning tomorrow if continued improvement Subjective ROS Limited/Unobtainable: Yes Constitutional: Reports: malaise, weakness HEENT: Reports: no symptoms Cardiovascular: Reports: no symptoms Respiratory: Reports: cough Gastrointestinal/Abdominal: Reports: difficulty swallowing Genitourinary: Reports: no symptoms Neurologic/Psychiatric: Reports: no symptoms Endocrine: Reports: no symptoms Hematologic/Lymphatic: Reports: anemia Allergies: Coded Allergies: PENICILLINS (Verified Allergy, Unknown, 07/31/16) All Systems: reviewed and negative except above Subjective rash itching improving. remains on iv abx. no fever or chills. no congestion. tolerating feeds wbc remains elevated at 16k Objective Last 24 Hour Vital Signs Date Time Temp Pulse Resp B/P (MAP) Pulse Ox O2 Delivery O2 Flow Rate FiO2 08/19/17 08:48 95 115/54 08/19/17 08:00 99.1 95 19 115/54 100 T-piece 28 99.1 08/19/17 08:00 6.0 28 08/19/17 08:00 91 08/19/17 06:55 98 T-piece 6.0 28 08/19/17 06:55 T-piece 6.0 28 08/19/17 06:55 92 18 T-piece 6.0 28 08/19/17 04:00 86 08/19/17 04:00 97.3 80 22 98/51 100 T-piece 28 97.3 08/19/17 04:00 6.0 28 08/19/17 03:35 87 08/19/17 01:20 T-piece 6.0 28 08/19/17 01:20 98 T-piece 6.0 28 08/19/17 00:00 6.0 28 08/19/17 00:00 86 08/19/17 00:00 97.9 80 22 100/50 98 T-piece 28 97.9 08/18/17 21:07 106 108/55 08/18/17 20:28 T-piece 6.0 28 08/18/17 20:28 100 T-piece 6.0 28 08/18/17 20:28 81 22 T-piece 6.0 28 08/18/17 20:00 97.5 82 22 108/55 97 T-piece 28 97.5 08/18/17 20:00 85 08/18/17 20:00 6.0 28 08/18/17 15:49 81 08/18/17 15:43 98.3 82 22 103/61 100 T-piece 28 98.3 08/18/17 12:07 T-piece 6.0 28 08/18/17 12:07 98 T-piece 6.0 28 08/18/17 11:56 97.2 80 22 97/46 100 T-piece 28 97.2 08/18/17 11:48 97 Intake and Output 08/18/17 08/19/17 19:00 07:00 Intake Total 690 ml 620 ml Output Total 400 ml 380 ml Balance 290 ml 240 ml Intake Free Water 70 ml 100 ml IV Total 110 ml Tube Feeding 480 ml 440 ml Blood Product 30 ml 80 ml Output Urine Total 400 ml 380 ml # Bowel Movements 4 8 Laboratory Tests 08/18/17 13:30: Urine Color Yellow, Urine Appearance Clear, Urine pH 6, Urine Specific [place] 1.015, Urine Protein 1+H, Urine Glucose (UA) Negative, Urine Ketones Negative, Urine Occult Blood 1+H, Urine Nitrite Negative, Urine Bilirubin Negative, Urine Urobilinogen Normal, Urine Leukocyte Esterase 2+H, Urine RBC 2-4H, Urine WBC 5- 10H, Urine Squamous Epithelial Cells Occasional, Urine Bacteria Occasional Height (Feet): 4 Height (Inches): 10.00 Weight (Pounds): 110 Objective General Appearance: WD/WN, alert Neck: supple Cardiovascular: regular rhythm Respiratory/Chest: chest wall non-tender, no respiratory distress, no accessory muscle use Abdomen: normal bowel sounds, non tender, soft, no organomegaly Edema: no edema noted Arm (L), no edema noted Arm (R), no edema noted Leg (L), no edema noted Leg (R), no edema noted Pedal (L), no edema noted Pedal (R), no edema noted Generalized Neurologic: alert, responsive CHRISTINA HAMMOND Aug 19, 2017 11:27
[2017-08-19 12:00] VITALS: BP 112/58
[2017-08-19 13:26] LABS: BASOPHILS % (AUTO) 1.2 % (0.0-2.0); EOSINOPHILS % (AUTO) 11.4 % (0.0-3.0); HEMATOCRIT 31.9 % (37.0-47.0); HEMOGLOBIN 10.2 G/DL (12.0-16.0); LYMPHOCYTES % (AUTO) 8.8 % (20.0-45.0); MEAN CORPUSCULAR VOLUME 91 FL (80-99); MONOCYTES % (AUTO) 8.7 % (1.0-10.0); NEUTROPHILS % (AUTO) 69.9 % (45.0-75.0); PLATELET COUNT 248 K/UL (150-450); RED BLOOD COUNT 3.51 M/UL (4.20-5.40); RED CELL DISTRIBUTION WIDTH 11.9 % (11.6-14.8); WHITE BLOOD COUNT 12.8 K/UL (4.8-10.8)
[2017-08-19 13:47] LABS: ALANINE AMINOTRANSFERASE 11 U/L (12-78); ALBUMIN 2.5 G/DL (3.4-5.0); ALBUMIN/GLOBULIN RATIO 0.5 (1.0-2.7); ALKALINE PHOSPHATASE 112 U/L (46-116); ANION GAP 4 mmol/L (5-15); ASPARTATE AMINO TRANSFERASE 36 U/L (15-37); BILIRUBIN,TOTAL 0.2 MG/DL (0.2-1.0); BLOOD UREA NITROGEN 22 mg/dL (7-18); CALCIUM 8.9 MG/DL (8.5-10.1); CARBON DIOXIDE 31 MMOL/L (21-32); CHLORIDE 102 MMOL/L (98-107); CREATININE 0.7 MG/DL (0.55-1.30); POTASSIUM 4.9 MMOL/L (3.5-5.1); SODIUM 137 MMOL/L (136-145)
[2017-08-19] MEDS: Cephalexin 500mg cap GT SCH ×2 (14:11→22:26)
[2017-08-19 16:00] VITALS: BP 129/41
[2017-08-19] MEDS ORDERED: NS 275ml ONE (16:21)
[2017-08-19 20:00] VITALS: BP 121/48
[2017-08-20] VITALS: BP 133/58
[2017-08-20 04:00] VITALS: BP 106/50
--- NOTE | 2017-08-20 04:30 | Progress Note ---
DATE: 08/18/2017 CARDIOLOGY PROGRESS NOTE Late entry for 08/18/2017. SUBJECTIVE: The patient remains in sinus rhythm and sinus tachycardia. OBJECTIVE: VITAL SIGNS: Blood pressure 94/48 to 110/55. LUNGS: Coarse breath sounds. Thin trach secretions. HEART: Regular rhythm. Rapid rate. Normal S1, S2. ABDOMEN: Soft. G-tube intact. EXTREMITIES: No edema. LABORATORY DATA: No new laboratories today. IMPRESSION: 1. Status post treatment for scabies. 2. Paroxysmal sinus tachycardia. 3. History of supraventricular tachycardia and atrial fibrillation. 4. Tracheostomy. 5. Head and neck cancer. 6. Leukocytosis. 7. Healthcare-acquired pneumonia. PLAN: 1. Respiratory therapy. 2. Antimicrobials per Infectious Disease exchange underwriting consultant. 3. Titrate beta-diego and midodrine for heart rate control and blood pressure management. 4. Remain off digitalis. 5. DVT prophylaxis. Chi Bhatti M.D. DR: DAVID JOB#: [id number] CC:
--- NOTE | 2017-08-20 05:00 | Progress Note ---
DATE: 08/19/2017 CARDIOLOGY PROGRESS NOTE SUBJECTIVE: The patient remains on trach collar with respiratory therapy ongoing. Itching improved. No fevers or chills. No shortness of breath. Less congestion. Monitored rhythm, sinus with few episodes of sinus tachycardia. OBJECTIVE: VITAL SIGNS: T-max 99.1, blood pressure 115/54, heart rate 95, and respiratory rate 19. LUNGS: Thin trach secretions. Coarse breath sounds. No wheezing or rales. HEART: Regular rhythm and rate. Normal S1, S2 with no murmur. ABDOMEN: Soft. G-tube intact. EXTREMITIES: No edema. LABORATORY DATA: Sodium 137, potassium 4.9, bicarb 31, BUN 22, and creatinine 0.7. Albumin 2.5. White count 12.8 and hemoglobin 10.2. IMPRESSION: 1. White blood cell count, improving on therapy for pneumonia, healthcare-acquired. 2. Paroxysmal atrial fibrillation and supraventricular tachycardia, suppressed. 3. Secondary sinus tachycardia, improved. 4. Respiratory failure with tracheostomy. 5. Head and neck cancer. 6. Hypothyroidism, on replacement therapy. 7. Chronic hypotension. PLAN: 1. Continue beta-diego and midodrine with titration ongoing, but no plan to resume digoxin. 2. Continue cardiac monitoring. Chi Bhatti M.D. DR: DAVID JOB#: [id number] CC:
[2017-08-20] MEDS: Midodrine 10mg tab GT SCH ×3 (05:57→21:29)
[2017-08-20 08:00] VITALS: BP 115/54
[2017-08-20] MEDS ORDERED: DOXYCYCLINE HY100 M2 GT (08:52)
[2017-08-20] MEDS: Carvedilol 6.25mg Tab ORAL SCH ×2 (09:00→21:29)
[2017-08-20] MEDS: Magnesium Oxide 400mg tab GT SCH (09:00)
[2017-08-20] MEDS: levETIRAcetam 500mg/5ml Liquid GT SCH ×2 (09:00→21:30)
[2017-08-20] MEDS: Cephalexin 500mg cap GT SCH ×2 (09:00→21:30)
--- NOTE | 2017-08-20 09:03 | General Progress Note ---
Assessment/Plan Problem List: (1) Cellulitis ICD Codes: L03.90 - Cellulitis, unspecified SNOMED: 891305314, 83454493 Qualifiers: Qualified Codes: L03.818 - Cellulitis of other sites (2) Rash and nonspecific skin eruption ICD Codes: R21 - Rash and other nonspecific skin eruption SNOMED: 966922087 (3) Scabies ICD Codes: B86 - Scabies SNOMED: 133427811, 01317306 (4) Respiratory failure ICD Codes: J96.90 - Respiratory failure, unspecified, unspecified whether with hypoxia or hypercapnia SNOMED: 416295349 Status: stable Assessment/Plan iv abx id eval appreciated resp care sutitoning skin care monitor wbc tap effusion per pulm d/w son thoracentesis. agrees to procedure Subjective ROS Limited/Unobtainable: No Constitutional: Reports: weakness HEENT: Reports: no symptoms Cardiovascular: Reports: no symptoms Respiratory: Reports: cough Gastrointestinal/Abdominal: Reports: difficulty swallowing Genitourinary: Reports: no symptoms Neurologic/Psychiatric: Reports: no symptoms Endocrine: Reports: no symptoms Hematologic/Lymphatic: Reports: no symptoms Allergies: Coded Allergies: PENICILLINS (Verified Allergy, Unknown, 07/31/16) All Systems: reviewed and negative except above Subjective rash itching improving. remains on iv abx. no fever or chills. no congestion. tolerating feeds wbc trending down. white out left [place] on cxr Objective Last 24 Hour Vital Signs Date Time Temp Pulse Resp B/P (MAP) Pulse Ox O2 Delivery O2 Flow Rate FiO2 08/20/17 07:50 92 20 T-piece 6.0 28 08/20/17 07:50 97 T-piece 6.0 28 08/20/17 07:50 T-piece 6.0 32 08/20/17 04:00 6.0 28 08/20/17 04:00 98.4 106 24 106/50 95 T-piece 28 98.4 08/20/17 04:00 99 08/20/17 01:52 T-piece 6.0 28 08/20/17 01:51 94 T-piece 6.0 28 08/20/17 00:00 102 08/20/17 00:00 6.0 28 08/20/17 00:00 97.2 105 24 133/58 94 T-piece 28 97.2 08/19/17 20:00 92 08/19/17 20:00 6.0 28 08/19/17 20:00 98.4 102 22 121/48 97 T-piece 28 98.4 08/19/17 18:32 95 22 T-piece 6.0 28 08/19/17 18:32 T-piece 6.0 32 08/19/17 18:32 97 T-piece 6.0 28 08/19/17 16:02 6.0 28 08/19/17 16:00 97.7 84 21 129/41 98 T-piece 28 97.7 08/19/17 16:00 89 08/19/17 12:31 98 T-piece 6.0 28 08/19/17 12:31 T-piece 6.0 28 08/19/17 12:00 84 08/19/17 12:00 6.0 28 08/19/17 12:00 97.8 90 20 112/58 99 T-piece 28 97.8 Intake and Output 08/19/17 08/20/17 19:00 07:00 Intake Total 545 ml 580 ml Output Total 200 ml 2 ml Balance 345 ml 578 ml Intake Free Water 100 ml Tube Feeding 480 ml 360 ml Other 65 ml 120 ml Output Urine Total 200 ml 2 ml # Voids 1 # Bowel Movements 5 Laboratory Tests 08/19/17 13:00: White Blood Count 12.8H, Red Blood Count 3.51L, Hemoglobin 10.2L, Hematocrit 31.9L, Mean Corpuscular Volume 91, Mean Corpuscular Hemoglobin 29.1, Mean Corpuscular Hemoglobin Concent 32.0, Red Cell Distribution Width 11.9, Platelet Count 248, Mean Platelet Volume 8.3, Neutrophils (%) (Auto) 69.9, Lymphocytes (% ) (Auto) 8.8L, Monocytes (%) (Auto) 8.7, Eosinophils (%) (Auto) 11.4H, Basophils (%) (Auto) 1.2, Sodium Level 137, Potassium Level 4.9, Chloride Level 102, Carbon Dioxide Level 31, Anion Gap 4L, Blood Urea Nitrogen 22H, Creatinine 0.7, Estimat Glomerular Filtration Rate , Glucose Level 116H, Calcium Level 8.9 , Total Bilirubin 0.2, Aspartate Amino Transf (AST/SGOT) 36, Alanine Aminotransferase (ALT/SGPT) 11L, Alkaline Phosphatase 112, Total Protein 7.6, Albumin 2.5L, Globulin 5.1, Albumin/Globulin Ratio 0.5L Height (Feet): 4 Height (Inches): 10.00 Weight (Pounds): 110 Objective General Appearance: WD/WN, alert Neck: supple Cardiovascular: regular rhythm Respiratory/Chest: chest wall non-tender, no respiratory distress, no accessory muscle use Abdomen: normal bowel sounds, non tender, soft, no organomegaly Edema: no edema noted Arm (L), no edema noted Arm (R), no edema noted Leg (L), no edema noted Leg (R), no edema noted Pedal (L), no edema noted Pedal (R), no edema noted Generalized Neurologic: alert, responsive CHRISTINA HAMMOND Aug 20, 2017 09:03
--- NOTE | 2017-08-20 11:43 | Infectious Diseases Prog Note ---
Assessment/Plan Assessment/Plan A 1. ? scabies s/p rx 2. back cellulitis 3. pneumonia 4. leucocytosis improving 5. COPD 6. + blood cultures with coag neg staph likely contaminated 7. rectal VRE colonization *. Eosinophilia P 1. continue Keflex, continue doxycycline 2. will have thoracentesis Subjective ROS Limited/Unobtainable: Yes Allergies: Coded Allergies: PENICILLINS (Verified Allergy, Unknown, 07/31/16) Objective Vital Signs Last 24 Hour Vital Signs Date Time Temp Pulse Resp B/P (MAP) Pulse Ox O2 Delivery O2 Flow Rate FiO2 08/20/17 09:00 99 115/54 08/20/17 08:00 98.1 95 18 115/54 99 T-piece 28 98.1 08/20/17 08:00 101 08/20/17 08:00 6.0 28 08/20/17 07:50 92 20 T-piece 6.0 28 08/20/17 07:50 97 T-piece 6.0 28 08/20/17 07:50 T-piece 6.0 32 08/20/17 04:00 6.0 28 08/20/17 04:00 98.4 106 24 106/50 95 T-piece 28 98.4 08/20/17 04:00 99 08/20/17 01:52 T-piece 6.0 28 08/20/17 01:51 94 T-piece 6.0 28 08/20/17 00:00 102 08/20/17 00:00 6.0 28 08/20/17 00:00 97.2 105 24 133/58 94 T-piece 28 97.2 08/19/17 20:00 92 08/19/17 20:00 6.0 28 08/19/17 20:00 98.4 102 22 121/48 97 T-piece 28 98.4 08/19/17 18:32 95 22 T-piece 6.0 28 08/19/17 18:32 T-piece 6.0 32 08/19/17 18:32 97 T-piece 6.0 28 08/19/17 16:02 6.0 28 08/19/17 16:00 97.7 84 21 129/41 98 T-piece 28 97.7 08/19/17 16:00 89 08/19/17 12:31 98 T-piece 6.0 28 08/19/17 12:31 T-piece 6.0 28 08/19/17 12:00 84 08/19/17 12:00 6.0 28 08/19/17 12:00 97.8 90 20 112/58 99 T-piece 28 97.8 Height (Feet): 4 Height (Inches): 10.00 Weight (Pounds): 110 General Appearance: no acute distress HEENT: status post trach Respiratory/Chest: lungs clear, other - on T bar Cardiovascular: normal rate Abdomen: soft, non tender Extremities: no edema Skin: rash Neurologic/Psychiatric: alert, responsive Microbiology Date/Time Source Procedure Growth Status 08/19/17 09:20 Stool Clostridium difficile Toxin Assay - Final Complete Laboratory Tests Test 08/19/17 13:00 08/20/17 10:50 White Blood Count 12.8 K/UL (4.8-10.8) H Red Blood Count 3.51 M/UL (4.20-5.40) L Hemoglobin 10.2 G/DL (12.0-16.0) L Hematocrit 31.9 % (37.0-47.0) L Mean Corpuscular Volume 91 FL (80-99) Mean Corpuscular Hemoglobin 29.1 PG (27.0-31.0) Mean Corpuscular Hemoglobin Concent 32.0 G/DL (32.0-36.0) Red Cell Distribution Width 11.9 % (11.6-14.8) Platelet Count 248 K/UL (150-450) Mean Platelet Volume 8.3 FL (6.5-10.1) Neutrophils (%) (Auto) 69.9 % (45.0-75.0) Lymphocytes (%) (Auto) 8.8 % (20.0-45.0) L Monocytes (%) (Auto) 8.7 % (1.0-10.0) Eosinophils (%) (Auto) 11.4 % (0.0-3.0) H Basophils (%) (Auto) 1.2 % (0.0-2.0) Sodium Level 137 MMOL/L (136-145) Potassium Level 4.9 MMOL/L (3.5-5.1) Chloride Level 102 MMOL/L (98-107) Carbon Dioxide Level 31 MMOL/L (21-32) Anion Gap 4 mmol/L (5-15) L Blood Urea Nitrogen 22 mg/dL (7-18) H Creatinine 0.7 MG/DL (0.55-1.30) Estimat Glomerular Filtration Rate mL/min (>60) Glucose Level 116 MG/DL (74-106) H Calcium Level 8.9 MG/DL (8.5-10.1) Total Bilirubin 0.2 MG/DL (0.2-1.0) Aspartate Amino Transf (AST/SGOT) 36 U/L (15-37) Alanine Aminotransferase (ALT/SGPT) 11 U/L (12-78) L Alkaline Phosphatase 112 U/L (46-116) Total Protein 7.6 G/DL (6.4-8.2) Albumin 2.5 G/DL (3.4-5.0) L Globulin 5.1 g/dL Albumin/Globulin Ratio 0.5 (1.0-2.7) L Prothrombin Time 10.3 SEC (9.30-11.50) Prothromb Time International Ratio 1.0 (0.9-1.1) Current Medications Medications (Trade) Dose Ordered Sig/Josiah Route PRN Reason Start Time Stop Time Status Last Admin Dose Admin Acetaminophen (Tylenol) 500 mg Q4H PRN ORAL Mild Pain/Temp > 100.5 08/14/17 21:00 09/13/17 20:59 Amitriptyline HCl (Elavil) 10 mg BEDTIME GT 08/14/17 21:00 09/13/17 20:59 08/19/17 22:26 Carvedilol (Coreg) 6.25 mg EVERY 12 HOURS ORAL 08/20/17 09:00 09/19/17 08:59 08/20/17 09:00 Cephalexin (Keflex) 500 mg Q12HR GT 08/19/17 14:00 08/26/17 13:59 08/20/17 09:00 Diphenhydramine HCl (Benadryl) 25 mg Q4H PRN IVP Itching 08/15/17 15:15 09/14/17 15:14 08/19/17 16:16 Doxycycline Monohydrate (Vibramycin) 100 mg EVERY 12 HOURS GT 08/16/17 12:00 08/23/17 11:59 08/20/17 09:00 Levetiracetam (Keppra) 500 mg Q12HR GT 08/14/17 21:00 09/13/17 20:59 08/20/17 09:00 Levothyroxine Sodium (Synthroid) 150 mcg DAILY@0700 GT 08/15/17 07:00 09/14/17 06:59 08/20/17 05:55 Magnesium Oxide (Mag-Ox 400mg) 400 mg DAILY GT 08/15/17 09:00 09/14/17 08:59 08/20/17 09:00 Midodrine (Pro-Amatine) 10 mg Q8HR GT 08/14/17 22:00 09/13/17 21:59 08/20/17 05:57 JENNIFER MCKEE Aug 20, 2017 11:43
[2017-08-20 12:00] VITALS: BP 96/55
[2017-08-20] MEDS: DiphenhydrAMINE 50mg/ml Inj IVP PRN (14:31)
[2017-08-20 16:00] VITALS: BP 140/63
--- NOTE | 2017-08-20 16:23 | Diagnostic Imaging Report ---
Indication: Shortness of breath, suspected left pleural effusion Technique: Grayscale and duplex images of the left chest in anticipation of thoracentesis Comparison: Reference made to chest radiograph 08/14/2017 Findings: Pleural thickening and atelectatic lung are demonstrated in the left hemithorax. No pleural fluid is demonstrated. Impression: No pleural fluid demonstrated. Thoracentesis therefore not performed Atelectatic lung and possible pleural thickening demonstrated
--- NOTE | 2017-08-20 17:35 | Diagnostic Imaging Report ---
Clinical Indication: Shortness of breath Technique: Spiral acquisitions obtained through the chest. No IV contrast utilized, reason not stated. Multiplanar reconstructions generated. Total dose length product 682.91 mGycm. CTDIvol(s) 20.38,13.43 mGy. Dose reduction achieved using automated exposure control Comparison: 02/22/2017 Findings: Interim increase in size of previously demonstrated left lower lobe mass, now occupying essentially the entirety of the left lower lobe. This measures approximately 10 cm x 7 cm x 10 cm craniocaudad. There is trace pleural fluid surrounding it. Interim destruction of the posterior left eighth rib and the periphery of the T8 transverse process, and of the posterolateral left ninth rib. There is increased reticular and confluent opacity in the posterior left upper lobe as well as in the residual aerated superior segment of the left lower lobe. There is complete occlusion of the lower lobe bronchus, presumably by tumor. Loculated pleural fluid versus pleural-based mass is seen in the periphery of the left hemithorax. There is increased soft tissue in the left paratracheal region as well. Right apical parenchymal scarring is unchanged. The right lung and pleural space otherwise remain clear. Interim enlargement of paratracheal lymph nodes, largest right paratracheal node measuring 24 mm long axis dimension, previously 15 mm. The heart is borderline enlarged. No pericardial effusion. There is a tracheostomy. There are prominent but not frankly enlarged left axillary nodes. Unremarkable esophagus. There is edema of the left breast and chest wall, in retrospect also evident previously, slightly more severe currently The included upper abdominal anatomy is unremarkable except for the presence of a gastrostomy. Impression: Since 02/22/2017 interim marked increase in size of previously demonstrated left lower lobe mass. There is now destruction of the adjacent left eighth and ninth rib and the periphery of the T8 transverse process by the mass. There is also increasing reticular and confluent opacity in the adjacent lung parenchyma, which could represent infiltrate or tumor as well. Small left pleural effusion at the lung base. Pleural opacity in the upper lateral left hemithorax could represent tumor or loculated fluid Evidence of chronic right apical pulmonary parenchymal scarring Increasing size of mediastinal lymph nodes, consistent with metastatic adenopathy Tracheostomy Borderline cardiomegaly Left breast and chest wall edema, etiology indeterminate Gastrostomy The CT scanner at [facility] is accredited by the [employer] and the scans are performed using protocols designed to limit radiation exposure to as low as reasonably achievable to attain images of sufficient resolution adequate for diagnostic evaluation.
--- NOTE | 2017-08-20 17:46 | Diagnostic Imaging Report ---
Indication: Shortness of breath Technique: One view of the chest Comparison: 08/14/2017 Findings: Slightly improved aeration of the left lung. There is still extensive opacification of the right lower hemithorax and circumferential pleural opacification, likely related to pulmonary mass and loculated pleural fluid demonstrated on subsequent chest CT. There is biapical pleural scarring. The right lung and pleural space are largely clear except for some central bronchial wall thickening. Tracheostomy remains. There is mild thoracic scoliotic deformity. There is a gastrostomy with probable surrounding T-fasteners again demonstrated Impression: Slightly improved aeration of the left lung, since 08/14/2017. Still extensive pleural and parenchymal disease on the left, described in more detail on subsequent chest CT
--- NOTE | 2017-08-20 19:45 | Consultation ---
DATE OF CONSULTATION: 08/20/2017 PULMONARY CONSULTATION CONSULTING PHYSICIAN: Brice Grove M.D. REFERRING PHYSICIAN: Rico Madrigal M.D. REASON FOR CONSULTATION: Respiratory failure, tracheostomy management. 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 The patient was admitted with persistent rash, without shortness of breath, comfortable at present. The patient has been cared for by her son at home. The patient has had no significant fevers or chills. No significant sputum production. The patient is otherwise comfortable at present. The patient's case reviewed and discussed. I was asked to evaluate and recommend further. PAST MEDICAL HISTORY: Notable for head and neck cancer, hypothyroidism, respiratory failure, seizure disorder, PSVT, and chronic hypotension. MEDICATIONS: Reviewed. ALLERGIES: Reviewed. SOCIAL HISTORY: Nonsmoker and nondrinker. The patient is currently at home, disabled. REVIEW OF SYSTEMS: Otherwise difficult to obtain. PHYSICAL EXAMINATION: GENERAL: A well-developed female, comfortable at present. VITAL SIGNS: Pulse rate 92, respiratory rate 20, blood pressure is stable at 129/41, and saturation 97%. HEENT: Fairly negative. NECK: Tracheostomy is in midline. Carotids 2+. LUNGS: With poor breath sounds in the left lung, otherwise clear with minimal rhonchi. CARDIAC: Normal S1, S2. Regular rate and rhythm without murmurs, rubs, or gallops. ABDOMEN: Soft, nontender, nondistended. EXTREMITIES: No cyanosis, clubbing, or edema. NEUROLOGIC: Grossly nonfocal. Weak and confused. LABORATORY DATA: Reviewed. White count 12.8, hemoglobin 10, hematocrit 30, and platelets 248,000. Chemistries noted. BUN 22, creatinine 0.7, albumin 2.5. Chest x-ray with essentially a fully opacified left lung back on August 14. IMPRESSION: Likely combination of pleural effusion, concern for obvious malignancy, prior history of metastatic head and neck cancer, respiratory failure, tracheostomy, chronic scabies, possible severe protein-calorie malnutrition. RECOMMENDATIONS: Supportive care. Consider thoracentesis. We will discuss with Dr. Madrigal, as to aggressiveness of care. Respiratory care, suction and monitor. Skin exam and await ID clearance. Supportive care and at present, the patient is Full Code. Brice Grove M.D. DR: FREDDIE JOB#: [id number] CC:
[2017-08-20 20:00] VITALS: BP 109/60
[2017-08-21] VITALS: BP 116/67
[2017-08-21] MEDS: DiphenhydrAMINE 50mg/ml Inj IVP PRN ×2 (00:55→06:54)
--- NOTE | 2017-08-21 02:30 | Progress Note ---
DATE: 08/20/2017 CARDIOLOGY PROGRESS NOTE SUBJECTIVE: The patient was seen by shoe singer. Consideration for thoracentesis noted. OBJECTIVE: VITAL SIGNS: Blood pressure 106/50, pulse 106, respirations 24, and afebrile. LUNGS: Diminished breath sounds. Few rhonchi. HEART: Regular rhythm and rate. Normal S1, S2. Episodes of rapid heart rate noted. ABDOMEN: Soft. G-tube intact. EXTREMITIES: With trace edema. DIAGNOSTIC DATA: Chest x-ray reveals white-out of the left lung. IMPRESSION: 1. Left lung collapse and pleural effusion. 2. Paroxysmal supraventricular tachyarrhythmias. 3. Paroxysmal atrial fibrillation. 4. Secondary sinus tachycardia. 5. Healthcare-acquired pneumonia. 6. Head and neck carcinoma. 7. Anemia. 8. Dysphagia. 9. Gastrostomy tube. 10. Moderate protein-calorie malnutrition. PLAN: 1. Continue beta-diego. 2. Off digoxin. 3. Monitor volume status. 4. Midodrine for blood pressure support. 5. Await thoracentesis. Chi Bhatti M.D. DR: JANAY JOB#: [id number] CC:
[2017-08-21 04:00] VITALS: BP 143/58
--- NOTE | 2017-08-21 06:05 | General Progress Note ---
Assessment/Plan Problem List: (1) Cellulitis ICD Codes: L03.90 - Cellulitis, unspecified SNOMED: 885353708, 76863226 Qualifiers: Qualified Codes: L03.818 - Cellulitis of other sites (2) Rash and nonspecific skin eruption ICD Codes: R21 - Rash and other nonspecific skin eruption SNOMED: 962218587 (3) Scabies ICD Codes: B86 - Scabies SNOMED: 822204554, 76572398 (4) Respiratory failure ICD Codes: J96.90 - Respiratory failure, unspecified, unspecified whether with hypoxia or hypercapnia SNOMED: 222233021 Status: stable, progressing Assessment/Plan iv abx id eval appreciated resp care sutitoning skin care monitor wbc ct chest Subjective ROS Limited/Unobtainable: No Constitutional: Reports: malaise, weakness HEENT: Reports: no symptoms Cardiovascular: Reports: no symptoms Respiratory: Reports: shortness of breath Gastrointestinal/Abdominal: Reports: difficulty swallowing Genitourinary: Reports: no symptoms Neurologic/Psychiatric: Reports: no symptoms Endocrine: Reports: no symptoms Hematologic/Lymphatic: Reports: no symptoms Allergies: Coded Allergies: PENICILLINS (Verified Allergy, Unknown, 07/31/16) All Systems: reviewed and negative except above Subjective rash itching improving. remains on iv abx. no fever or chills. no congestion. tolerating feeds wbc trending down. white out left [place] on cxr not enough fluid to tap on maggie ct ordered. having diarrhea Objective Last 24 Hour Vital Signs Date Time Temp Pulse Resp B/P (MAP) Pulse Ox O2 Delivery O2 Flow Rate FiO2 08/21/17 04:00 6.0 28 08/21/17 03:27 92 08/21/17 00:00 98.0 85 24 116/67 100 T-piece 28 98.0 08/20/17 23:45 97 T-piece 6.0 28 08/20/17 23:45 T-piece 6.0 28 08/20/17 23:24 86 08/20/17 21:29 89 109/60 08/20/17 20:00 6.0 28 08/20/17 20:00 98.4 89 20 109/60 98 T-piece 28 98.4 08/20/17 19:30 96 T-piece 6.0 28 08/20/17 19:30 T-piece 6.0 28 08/20/17 19:30 86 20 T-piece 6.0 28 08/20/17 19:27 86 08/20/17 16:00 98.0 75 18 140/63 95 T-piece 28 98.0 08/20/17 16:00 6.0 28 08/20/17 16:00 107 08/20/17 12:14 T-piece 6.0 32 08/20/17 12:14 98 T-piece 6.0 28 08/20/17 12:00 96.6 84 18 96/55 95 T-piece 28 96.6 08/20/17 12:00 107 08/20/17 12:00 6.0 28 08/20/17 09:00 99 115/54 08/20/17 08:00 98.1 95 18 115/54 99 T-piece 28 98.1 08/20/17 08:00 101 08/20/17 08:00 6.0 28 08/20/17 07:50 92 20 T-piece 6.0 28 08/20/17 07:50 97 T-piece 6.0 28 08/20/17 07:50 T-piece 6.0 32 Intake and Output 08/20/17 08/21/17 19:00 07:00 Intake Total 490 ml Output Total 802 ml Balance -312 ml Intake Free Water 50 ml Tube Feeding 440 ml Output Urine Total 800 ml Stool Total 2 ml # Voids 3 # Bowel Movements 2 2 Laboratory Tests 08/20/17 10:50: Prothrombin Time 10.3, Prothromb Time International Ratio 1.0 Height (Feet): 4 Height (Inches): 10.00 Weight (Pounds): 110 Objective General Appearance: WD/WN, alert Neck: supple Cardiovascular: regular rhythm Respiratory/Chest: chest wall non-tender, no respiratory distress, no accessory muscle use Abdomen: normal bowel sounds, non tender, soft, no organomegaly Edema: no edema noted Arm (L), no edema noted Arm (R), no edema noted Leg (L), no edema noted Leg (R), no edema noted Pedal (L), no edema noted Pedal (R), no edema noted Generalized Neurologic: alert, responsive CHRISTINA HAMMOND Aug 21, 2017 06:04
[2017-08-21] MEDS: Midodrine 10mg tab GT SCH ×3 (06:22→22:24)
[2017-08-21 08:00] VITALS: BP 102/66
[2017-08-21] MEDS: Magnesium Oxide 400mg tab GT SCH (08:18)
[2017-08-21] MEDS: Lomotil 2.5mg tab GT PRN (08:18)
--- NOTE | 2017-08-21 08:18 | General Progress Note ---
Assessment/Plan Assessment/Plan IMPRESSION: extensive tumor left sided, prior history of metastatic head and neck cancer, respiratory failure, tracheostomy, chronic scabies, possible severe protein-calorie malnutrition. PLAN no intervention consider onc evaluation no new recommendations ventilator back up prognosis poor with extensive mets impression, plan, and exam edited and reviewed in detail care discussed with RN Subjective ROS Limited/Unobtainable: Yes Allergies: Coded Allergies: PENICILLINS (Verified Allergy, Unknown, 07/31/16) Subjective reviewed with Dr. Madrigal extensive tumor Objective Last 24 Hour Vital Signs Date Time Temp Pulse Resp B/P (MAP) Pulse Ox O2 Delivery O2 Flow Rate FiO2 08/21/17 08:00 6.0 28 08/21/17 04:00 6.0 28 08/21/17 04:00 97.7 102 20 143/58 100 T-piece 28 97.7 08/21/17 03:27 92 08/21/17 00:00 98.0 85 24 116/67 100 T-piece 28 98.0 08/20/17 23:45 97 T-piece 6.0 28 08/20/17 23:45 T-piece 6.0 28 08/20/17 23:24 86 08/20/17 21:29 89 109/60 08/20/17 20:00 6.0 28 08/20/17 20:00 98.4 89 20 109/60 98 T-piece 28 98.4 08/20/17 19:30 96 T-piece 6.0 28 08/20/17 19:30 T-piece 6.0 28 08/20/17 19:30 86 20 T-piece 6.0 28 08/20/17 19:27 86 08/20/17 16:00 98.0 75 18 140/63 95 T-piece 28 98.0 08/20/17 16:00 6.0 28 08/20/17 16:00 107 08/20/17 12:14 T-piece 6.0 32 08/20/17 12:14 98 T-piece 6.0 28 08/20/17 12:00 96.6 84 18 96/55 95 T-piece 28 96.6 08/20/17 12:00 107 08/20/17 12:00 6.0 28 08/20/17 09:00 99 115/54 Intake and Output 08/20/17 08/21/17 19:00 07:00 Intake Total 530 ml 450 ml Output Total 802 ml Balance -272 ml 450 ml Intake Free Water 50 ml 50 ml Tube Feeding 480 ml 400 ml Output Urine Total 800 ml Stool Total 2 ml # Voids 3 # Bowel Movements 2 4 Laboratory Tests 08/20/17 10:50: Prothrombin Time 10.3, Prothromb Time International Ratio 1.0 Height (Feet): 4 Height (Inches): 10.00 Weight (Pounds): 110 Objective GENERAL: A well-developed female, comfortable at present. HEENT: Fairly negative. NECK: Tracheostomy is in midline. Carotids 2+. LUNGS: With poor breath sounds in the left lung, otherwise clear with minimal rhonchi. CARDIAC: Normal S1, S2. Regular rate and rhythm without murmurs, rubs, or gallops. ABDOMEN: Soft, nontender, nondistended. EXTREMITIES: No cyanosis, clubbing, or edema. NEUROLOGIC: Grossly nonfocal. Weak and confused. MARCY MAJOR Aug 21, 2017 08:18
[2017-08-21] MEDS: Carvedilol 6.25mg Tab ORAL SCH ×3 (08:19→22:23)
[2017-08-21] MEDS: levETIRAcetam 500mg/5ml Liquid GT SCH ×2 (08:19→22:23)
[2017-08-21] MEDS: Cephalexin 500mg cap GT SCH ×2 (08:19→22:23)
[2017-08-21 08:33] LABS: BASOPHILS % (AUTO) 1.1 % (0.0-2.0); EOSINOPHILS % (AUTO) 11.4 % (0.0-3.0); HEMATOCRIT 29.9 % (37.0-47.0); HEMOGLOBIN 9.7 G/DL (12.0-16.0); LYMPHOCYTES % (AUTO) 7.7 % (20.0-45.0); MEAN CORPUSCULAR VOLUME 91 FL (80-99); MONOCYTES % (AUTO) 10.4 % (1.0-10.0); NEUTROPHILS % (AUTO) 69.5 % (45.0-75.0); PLATELET COUNT 268 K/UL (150-450); RED BLOOD COUNT 3.29 M/UL (4.20-5.40); RED CELL DISTRIBUTION WIDTH 12.4 % (11.6-14.8); WHITE BLOOD COUNT 13.9 K/UL (4.8-10.8)
[2017-08-21 09:16] LABS: ALANINE AMINOTRANSFERASE 12 U/L (12-78); ALBUMIN 2.7 G/DL (3.4-5.0); ALBUMIN/GLOBULIN RATIO 0.6 (1.0-2.7); ALKALINE PHOSPHATASE 96 U/L (46-116); ANION GAP 6 mmol/L (5-15); ASPARTATE AMINO TRANSFERASE 39 U/L (15-37); BILIRUBIN,TOTAL 0.2 MG/DL (0.2-1.0); BLOOD UREA NITROGEN 28 mg/dL (7-18); CARBON DIOXIDE 32 MMOL/L (21-32); CHLORIDE 103 MMOL/L (98-107); CREATININE 0.7 MG/DL (0.55-1.30); POTASSIUM 4.7 MMOL/L (3.5-5.1); SODIUM 141 MMOL/L (136-145)
[2017-08-21 12:00] VITALS: BP 116/48
[2017-08-21 16:00] VITALS: BP 102/60
[2017-08-21 20:00] VITALS: BP 100/55
[2017-08-22] VITALS: BP 110/60
--- NOTE | 2017-08-22 00:16 | Progress Note ---
DATE: 08/21/2017 CARDIOLOGY PROGRESS NOTE SUBJECTIVE: The patient is having diarrhea. The patient did not have adequate amount of fluid on imaging to remove from the left lung field. Chest x-ray reveals white-out likely due to collapsed lung. OBJECTIVE: VITAL SIGNS: Blood pressure is 116/67, pulse 85, respirations 24, and afebrile. LUNGS: Diminished breath sounds on the left. Scattered rhonchi. HEART: Regular rhythm and rate. Normal S1 and S2 with a fourth heart sound. ABDOMEN: Soft. G-tube intact. EXTREMITIES: No edema. LABORATORY DATA: White count 13.9 and hemoglobin 9.7. Potassium 4.7, BUN 28, and creatinine 0.7. Albumin 2.7. IMPRESSION: 1. Left-sided lung tumor with obstruction and lung collapse. 2. Metastatic head and neck cancer. 3. Respiratory failure with tracheostomy. 4. Paroxysmal atrial fibrillation and supraventricular tachyarrhythmias. 5. Severe protein-calorie malnutrition. 6. Dysphagia with gastrostomy tube. 7. Secondary sinus tachycardia. PLAN: 1. Ventilator backup. 2. Respiratory hygiene. 3. Continue beta-diego. 4. Off digitalis. 5. Monitor volume status and cardiorenal function. 6. Oncology followup planned. Chi Bhatti M.D. DR: Marissa JOB#: [id number] CC:
[2017-08-22 04:00] VITALS: BP 100/50
[2017-08-22] MEDS: Midodrine 10mg tab GT SCH ×3 (06:19→22:02)
--- NOTE | 2017-08-22 06:45 | General Progress Note ---
Assessment/Plan Assessment/Plan IMPRESSION: extensive tumor left sided, prior history of metastatic head and neck cancer, respiratory failure, tracheostomy, chronic scabies, possible severe protein-calorie malnutrition. PLAN no intervention per pulmonaryh consider onc evaluation no new recommendations ventilator back up as needed suction as needed prognosis poor with extensive mets impression, plan, and exam edited and reviewed in detail care discussed with RN Subjective ROS Limited/Unobtainable: Yes Allergies: Coded Allergies: PENICILLINS (Verified Allergy, Unknown, 07/31/16) Subjective care noted no distress on trach collar extensive tumor Objective Last 24 Hour Vital Signs Date Time Temp Pulse Resp B/P (MAP) Pulse Ox O2 Delivery O2 Flow Rate FiO2 08/22/17 04:00 6.0 28 08/22/17 04:00 84 08/22/17 04:00 98.0 81 20 100/50 96 T-piece 28 98.0 08/22/17 01:15 96 T-piece 6.0 28 08/22/17 01:15 T-piece 6.0 28 08/22/17 00:26 85 08/22/17 00:00 98.0 78 19 110/60 98 T-piece 28 98.0 08/22/17 00:00 6.0 28 08/21/17 22:23 84 100/55 08/21/17 20:00 6.0 28 08/21/17 20:00 97.9 84 20 100/55 98 T-piece 28 97.9 08/21/17 19:34 86 08/21/17 19:30 T-piece 6.0 28 08/21/17 19:30 95 T-piece 6.0 28 08/21/17 19:30 90 20 T-piece 6.0 28 08/21/17 16:00 97.9 74 20 102/60 98 T-piece 28 97.9 08/21/17 16:00 78 08/21/17 16:00 6.0 28 08/21/17 12:57 T-piece 6.0 28 08/21/17 12:56 98 T-piece 6.0 28 08/21/17 12:00 6.0 28 08/21/17 12:00 97.2 74 18 116/48 100 T-piece 28 97.2 08/21/17 12:00 75 08/21/17 09:00 87 102/66 08/21/17 08:00 87 08/21/17 08:00 97.5 87 18 102/66 98 T-piece 28 97.5 08/21/17 08:00 6.0 28 08/21/17 07:13 98 T-piece 6.0 28 08/21/17 07:13 T-piece 6.0 28 08/21/17 07:13 94 20 T-piece 6.0 28 Intake and Output 08/21/17 08/22/17 19:00 07:00 Intake Total 510 ml 600 ml Balance 510 ml 600 ml Intake Free Water 100 ml Tube Feeding 480 ml 440 ml Other 30 ml 60 ml # Voids 4 2 # Bowel Movements 2 Laboratory Tests 08/21/17 08:05: White Blood Count 13.9H, Red Blood Count 3.29L, Hemoglobin 9.7L, Hematocrit 29.9L, Mean Corpuscular Volume 91, Mean Corpuscular Hemoglobin 29.4, Mean Corpuscular Hemoglobin Concent 32.4, Red Cell Distribution Width 12.4, Platelet Count 268, Mean Platelet Volume 8.0, Neutrophils (%) (Auto) 69.5, Lymphocytes (% ) (Auto) 7.7L, Monocytes (%) (Auto) 10.4H, Eosinophils (%) (Auto) 11.4H, Basophils (%) (Auto) 1.1, Sodium Level 141, Potassium Level 4.7, Chloride Level 103, Carbon Dioxide Level 32, Anion Gap 6, Blood Urea Nitrogen 28H, Creatinine 0.7, Estimat Glomerular Filtration Rate , Glucose Level 109H, Calcium Level 9.0 , Total Bilirubin 0.2, Aspartate Amino Transf (AST/SGOT) 39H, Alanine Aminotransferase (ALT/SGPT) 12, Alkaline Phosphatase 96, Total Protein 7.6, Albumin 2.7L, Globulin 4.9, Albumin/Globulin Ratio 0.6L Height (Feet): 4 Height (Inches): 10.00 Weight (Pounds): 110 Objective GENERAL: A well-developed female, comfortable at present. HEENT: Fairly negative. NECK: Tracheostomy is in midline. Carotids 2+. LUNGS: With poor breath sounds in the left lung, otherwise clear with minimal rhonchi. CARDIAC: Normal S1, S2. Regular rate and rhythm without murmurs, rubs, or gallops. ABDOMEN: Soft, nontender, nondistended. EXTREMITIES: No cyanosis, clubbing, or edema. NEUROLOGIC: Grossly nonfocal. Weak and confused. MARCY MAJOR Aug 22, 2017 06:45
[2017-08-22 08:00] VITALS: BP 128/48
--- NOTE | 2017-08-22 08:30 | General Progress Note ---
Assessment/Plan Problem List: (1) Cellulitis ICD Codes: L03.90 - Cellulitis, unspecified SNOMED: 866852152, 74775610 Qualifiers: Qualified Codes: L03.818 - Cellulitis of other sites (2) Rash and nonspecific skin eruption ICD Codes: R21 - Rash and other nonspecific skin eruption SNOMED: 489773382 (3) Scabies ICD Codes: B86 - Scabies SNOMED: 271342212, 09523976 (4) Respiratory failure ICD Codes: J96.90 - Respiratory failure, unspecified, unspecified whether with hypoxia or hypercapnia SNOMED: 216427340 Assessment/Plan iv abx id eval appreciated resp care sutitoning skin care monitor wbc ct chest Subjective ROS Limited/Unobtainable: No Constitutional: Reports: malaise, weakness HEENT: Reports: no symptoms Cardiovascular: Reports: no symptoms Respiratory: Reports: cough, shortness of breath Gastrointestinal/Abdominal: Reports: no symptoms Genitourinary: Reports: no symptoms Neurologic/Psychiatric: Reports: no symptoms Endocrine: Reports: no symptoms Hematologic/Lymphatic: Reports: anemia Allergies: Coded Allergies: PENICILLINS (Verified Allergy, Unknown, 07/31/16) All Systems: reviewed and negative except above Subjective rash itching improving. remains on iv abx. no fever or chills. no congestion. tolerating feeds Ct noted- results d/w son pt to be started on octivo by . son cannot accept pt today as he is currently getting rx for scabies. dc tomorrow Objective Last 24 Hour Vital Signs Date Time Temp Pulse Resp B/P (MAP) Pulse Ox O2 Delivery O2 Flow Rate FiO2 08/22/17 06:49 82 20 T-piece 6.0 28 08/22/17 06:49 T-piece 6.0 28 08/22/17 06:49 99 T-piece 6.0 28 08/22/17 04:00 6.0 28 08/22/17 04:00 84 08/22/17 04:00 98.0 81 20 100/50 96 T-piece 28 98.0 08/22/17 01:15 96 T-piece 6.0 28 08/22/17 01:15 T-piece 6.0 28 08/22/17 00:26 85 08/22/17 00:00 98.0 78 19 110/60 98 T-piece 28 98.0 08/22/17 00:00 6.0 28 08/21/17 22:23 84 100/55 08/21/17 20:00 6.0 28 08/21/17 20:00 97.9 84 20 100/55 98 T-piece 28 97.9 08/21/17 19:34 86 08/21/17 19:30 T-piece 6.0 28 08/21/17 19:30 95 T-piece 6.0 28 08/21/17 19:30 90 20 T-piece 6.0 28 08/21/17 16:00 97.9 74 20 102/60 98 T-piece 28 97.9 08/21/17 16:00 78 08/21/17 16:00 6.0 28 08/21/17 12:57 T-piece 6.0 28 08/21/17 12:56 98 T-piece 6.0 28 08/21/17 12:00 6.0 28 08/21/17 12:00 97.2 74 18 116/48 100 T-piece 28 97.2 08/21/17 12:00 75 08/21/17 09:00 87 102/66 Intake and Output 08/21/17 08/22/17 19:00 07:00 Intake Total 510 ml 600 ml Balance 510 ml 600 ml Intake Free Water 100 ml Tube Feeding 480 ml 440 ml Other 30 ml 60 ml # Voids 4 2 # Bowel Movements 2 Height (Feet): 4 Height (Inches): 10.00 Weight (Pounds): 110 Objective General Appearance: WD/WN, alert Neck: supple Cardiovascular: regular rhythm Respiratory/Chest: chest wall non-tender, no respiratory distress, no accessory muscle use Abdomen: normal bowel sounds, non tender, soft, no organomegaly Edema: no edema noted Arm (L), no edema noted Arm (R), no edema noted Leg (L), no edema noted Leg (R), no edema noted Pedal (L), no edema noted Pedal (R), no edema noted Generalized Neurologic: alert, responsive CHRISTINA HAMMOND Aug 22, 2017 08:30
[2017-08-22] MEDS: Carvedilol 6.25mg Tab ORAL SCH ×2 (09:16→20:44)
[2017-08-22] MEDS: Cephalexin 500mg cap GT SCH (09:16)
[2017-08-22] MEDS: Magnesium Oxide 400mg tab GT SCH (09:17)
[2017-08-22] MEDS: levETIRAcetam 500mg/5ml Liquid GT SCH ×2 (09:17→20:45)
[2017-08-22 11:34] VITALS: BP 98/60
--- NOTE | 2017-08-22 11:35 | Infectious Diseases Prog Note ---
Assessment/Plan Assessment/Plan antibiotics : keflex, doxycycline A 1. ? scabies s/p rx 2. back cellulitis resolving 3. pneumonia 4. leucocytosis 5. COPD 6. + blood cultures with coag neg staph likely contaminated 7. rectal VRE colonization P 1. d/c keflex, doxycycline 2. observe off antibiotics Subjective ROS Limited/Unobtainable: Yes Allergies: Coded Allergies: PENICILLINS (Verified Allergy, Unknown, 07/31/16) Objective Vital Signs Last 24 Hour Vital Signs Date Time Temp Pulse Resp B/P (MAP) Pulse Ox O2 Delivery O2 Flow Rate FiO2 08/22/17 09:16 83 128/48 08/22/17 08:00 97.9 83 16 128/48 93 T-piece 5.0 28 97.9 08/22/17 08:00 5.0 28 08/22/17 07:58 83 08/22/17 06:49 82 20 T-piece 6.0 28 08/22/17 06:49 T-piece 6.0 28 08/22/17 06:49 99 T-piece 6.0 28 08/22/17 04:00 6.0 28 08/22/17 04:00 84 08/22/17 04:00 98.0 81 20 100/50 96 T-piece 28 98.0 08/22/17 01:15 96 T-piece 6.0 28 08/22/17 01:15 T-piece 6.0 28 08/22/17 00:26 85 08/22/17 00:00 98.0 78 19 110/60 98 T-piece 28 98.0 08/22/17 00:00 6.0 28 08/21/17 22:23 84 100/55 08/21/17 20:00 6.0 28 08/21/17 20:00 97.9 84 20 100/55 98 T-piece 28 97.9 08/21/17 19:34 86 08/21/17 19:30 T-piece 6.0 28 08/21/17 19:30 95 T-piece 6.0 28 08/21/17 19:30 90 20 T-piece 6.0 28 08/21/17 16:00 97.9 74 20 102/60 98 T-piece 28 97.9 08/21/17 16:00 78 08/21/17 16:00 6.0 28 08/21/17 12:57 T-piece 6.0 28 08/21/17 12:56 98 T-piece 6.0 28 08/21/17 12:00 6.0 28 08/21/17 12:00 97.2 74 18 116/48 100 T-piece 28 97.2 08/21/17 12:00 75 Height (Feet): 4 Height (Inches): 10.00 Weight (Pounds): 110 HEENT: status post trach Respiratory/Chest: lungs clear Cardiovascular: normal rate, regular rhythm, no gallop/murmur Abdomen: soft, non tender, other - GT Extremities: no edema MARA BLOCK Aug 22, 2017 11:35
[2017-08-22 15:30] VITALS: BP 109/53
[2017-08-22 20:00] VITALS: BP 119/70
[2017-08-22] MEDS: DiphenhydrAMINE 50mg/ml Inj IVP PRN (22:29)
[2017-08-23] VITALS: BP 101/46
--- NOTE | 2017-08-23 01:31 | Progress Note ---
DATE: 08/22/2017 CARDIOLOGY PROGRESS NOTE SUBJECTIVE: The patient remains on ventilator support. Secretions are moderate. White-out of the left lung persists. Hematology/Oncology evaluation was appreciated. Outpatient palliation with plan. OBJECTIVE: VITAL SIGNS: The patient is on blood pressure 100/50, pulse 80, respiratory rate 20, afebrile. LUNGS: Coarse breath sounds. Scattered rhonchi. HEART: Regular rhythm and rate. Normal S1 and S2. ABDOMEN: Soft. G-tube intact. EXTREMITIES: No edema. IMPRESSION: Head and neck cancer with metastatic disease involving white-out left lung associated with metastatic disease, paroxysmal atrial fibrillation and supraventricular tachyarrhythmias, secondary sinus tachycardia resolved, dysphagia with gastrostomy tube, chronic hypotension likely due to autonomic dysfunction and stable on midodrine. Pleural effusion with inadequate fluid for thoracentesis. PLAN: Palliative chemotherapy as outpatient. Trach care. Continue beta-diego. No resumption of digoxin planned. Thyroid supplement. Prognosis is poor. Chi Bhatti M.D. DR: Marissa JOB#: [id number] CC:
[2017-08-23] MEDS: DiphenhydrAMINE 50mg/ml Inj IVP PRN ×2 (02:19→06:50)
[2017-08-23 04:00] VITALS: BP 85/44
[2017-08-23] MEDS: Midodrine 10mg tab GT SCH ×2 (05:55→14:59)
[2017-08-23 08:00] VITALS: BP 92/39
[2017-08-23] MEDS: Carvedilol 6.25mg Tab ORAL SCH (09:00)
[2017-08-23] MEDS: levETIRAcetam 500mg/5ml Liquid GT SCH (09:11)
[2017-08-23] MEDS: Lomotil 2.5mg tab GT PRN (09:11)
[2017-08-23] MEDS: Magnesium Oxide 400mg tab GT SCH (09:11)
[2017-08-23 11:50] VITALS: BP 115/50
--- NOTE | 2017-08-23 11:59 | Infectious Diseases Prog Note ---
Assessment/Plan Assessment/Plan A 1. ? scabies s/p rx 2. back cellulitis 3. pneumonia 4. leucocytosis improving 5. COPD 6. + blood cultures with coag neg staph likely contaminated 7. rectal VRE colonization *. Eosinophilia P 1. Observe off antibiotic Subjective ROS Limited/Unobtainable: Yes Skin: Reports: rash, other - itching Allergies: Coded Allergies: PENICILLINS (Verified Allergy, Unknown, 07/31/16) Objective Vital Signs Last 24 Hour Vital Signs Date Time Temp Pulse Resp B/P (MAP) Pulse Ox O2 Delivery O2 Flow Rate FiO2 08/23/17 09:00 87 92/39 08/23/17 08:00 98.2 87 20 92/39 97 T-piece 5.0 28 98.2 08/23/17 08:00 5.0 28 08/23/17 07:35 86 08/23/17 07:33 T-piece 6.0 28 08/23/17 07:33 96 T-piece 6.0 28 08/23/17 07:32 84 18 T-piece 5.0 28 08/23/17 04:00 88 08/23/17 04:00 5.0 28 08/23/17 04:00 97.7 88 18 85/44 93 T-piece 5.0 28 97.7 08/23/17 01:00 96 T-piece 6.0 28 08/23/17 01:00 T-piece 6.0 28 08/23/17 00:00 5.0 28 08/23/17 00:00 82 08/23/17 00:00 97.5 88 20 101/46 98 T-piece 5.0 28 97.5 08/22/17 20:44 90 119/70 08/22/17 20:00 5.0 28 08/22/17 20:00 97.5 90 20 119/70 98 T-piece 5.0 28 97.5 08/22/17 20:00 82 08/22/17 19:30 95 T-piece 6.0 28 08/22/17 19:30 T-piece 6.0 28 08/22/17 19:29 77 18 T-piece 5.0 28 08/22/17 16:00 5.0 28 08/22/17 15:33 81 08/22/17 15:30 97.3 78 18 109/53 95 T-piece 5.0 28 97.3 08/22/17 13:12 T-piece 6.0 28 08/22/17 13:12 95 T-piece 6.0 28 08/22/17 12:00 5.0 28 Height (Feet): 4 Height (Inches): 10.00 Weight (Pounds): 110 HEENT: status post trach Respiratory/Chest: other - on T Bar Cardiovascular: normal rate Abdomen: soft, non tender Extremities: no edema Skin: rash Neurologic/Psychiatric: alert, responsive Current Medications Medications (Trade) Dose Ordered Sig/Josiah Route PRN Reason Start Time Stop Time Status Last Admin Dose Admin Acetaminophen (Tylenol) 500 mg Q4H PRN ORAL Mild Pain/Temp > 100.5 08/14/17 21:00 09/13/17 20:59 Amitriptyline HCl (Elavil) 10 mg BEDTIME GT 08/14/17 21:00 09/13/17 20:59 08/22/17 20:46 Carvedilol (Coreg) 6.25 mg EVERY 12 HOURS ORAL 08/20/17 09:00 09/19/17 08:59 08/22/17 20:44 Diphenhydramine HCl (Benadryl) 25 mg Q4H PRN IVP Itching 08/15/17 15:15 09/14/17 15:14 08/23/17 06:50 Diphenoxylate HCl/ Atropine (Lomotil) 2.5 mg Q4H PRN GT Diarrhea 08/21/17 06:15 09/20/17 06:14 08/23/17 09:11 Levetiracetam (Keppra) 500 mg Q12HR GT 08/14/17 21:00 09/13/17 20:59 08/23/17 09:11 Levothyroxine Sodium (Synthroid) 150 mcg DAILY@0700 GT 08/15/17 07:00 09/14/17 06:59 08/23/17 05:55 Magnesium Oxide (Mag-Ox 400mg) 400 mg DAILY GT 08/15/17 09:00 09/14/17 08:59 08/23/17 09:11 Midodrine (Pro-Amatine) 10 mg Q8HR GT 08/14/17 22:00 09/13/17 21:59 08/23/17 05:55 JENNIFER MCKEE Aug 23, 2017 11:59
[2017-08-23 16:00] VITALS: BP 102/48
--- NOTE | 2017-08-23 17:15 | General Progress Note ---
Assessment/Plan Assessment/Plan IMPRESSION: extensive tumor left sided, prior history of metastatic head and neck cancer, respiratory failure, tracheostomy, chronic scabies, possible severe protein-calorie malnutrition. PLAN no intervention per pulmonary at this time consider onc evaluation for further recommendations and advance directives no new recommendations ventilator back up as needed suction as needed prognosis poor with extensive mets dc per Dr. Madrigal impression, plan, and exam edited and reviewed in detail care discussed with RN Subjective ROS Limited/Unobtainable: Yes Allergies: Coded Allergies: PENICILLINS (Verified Allergy, Unknown, 07/31/16) Subjective care noted no distress on trach collar extensive tumor Objective Last 24 Hour Vital Signs Date Time Temp Pulse Resp B/P (MAP) Pulse Ox O2 Delivery O2 Flow Rate FiO2 08/23/17 16:00 89 08/23/17 16:00 97.2 87 20 102/48 100 T-piece 5.0 28 97.2 08/23/17 16:00 5.0 28 08/23/17 12:34 99 T-piece 6.0 28 08/23/17 12:34 T-piece 6.0 28 08/23/17 12:00 90 08/23/17 12:00 5.0 28 08/23/17 11:50 91 16 115/50 99 5.0 28 08/23/17 09:00 87 92/39 08/23/17 08:00 98.2 87 20 92/39 97 T-piece 5.0 28 98.2 08/23/17 08:00 5.0 28 08/23/17 07:35 86 08/23/17 07:33 T-piece 6.0 28 08/23/17 07:33 96 T-piece 6.0 28 08/23/17 07:32 84 18 T-piece 5.0 28 08/23/17 04:00 88 08/23/17 04:00 5.0 28 08/23/17 04:00 97.7 88 18 85/44 93 T-piece 5.0 28 97.7 08/23/17 01:00 96 T-piece 6.0 28 08/23/17 01:00 T-piece 6.0 28 08/23/17 00:00 5.0 28 08/23/17 00:00 82 08/23/17 00:00 97.5 88 20 101/46 98 T-piece 5.0 28 97.5 08/22/17 20:44 90 119/70 08/22/17 20:00 5.0 28 08/22/17 20:00 97.5 90 20 119/70 98 T-piece 5.0 28 97.5 08/22/17 20:00 82 08/22/17 19:30 95 T-piece 6.0 28 08/22/17 19:30 T-piece 6.0 28 08/22/17 19:29 77 18 T-piece 5.0 28 Intake and Output 08/22/17 08/23/17 19:00 07:00 Intake Total 730 ml 460 ml Balance 730 ml 460 ml Intake Free Water 250 ml 30 ml Tube Feeding 480 ml 400 ml Other 30 ml # Bowel Movements 1 2 Height (Feet): 4 Height (Inches): 10.00 Weight (Pounds): 110 Objective GENERAL: A well-developed female, comfortable at present. HEENT: Fairly negative. NECK: Tracheostomy is in midline. Carotids 2+. LUNGS: With poor breath sounds in the left lung, otherwise clear with minimal rhonchi. CARDIAC: Normal S1, S2. Regular rate and rhythm without murmurs, rubs, or gallops. ABDOMEN: Soft, nontender, nondistended. EXTREMITIES: No cyanosis, clubbing, or edema. NEUROLOGIC: Grossly nonfocal. Weak and confused. MARCY MAJOR Aug 23, 2017 17:15
[2017-08-23] MEDS ORDERED: NS 275ml ONE (19:16)
--- NOTE | 2017-08-23 23:31 | Progress Note ---
DATE: 08/23/2017 CARDIOLOGY PROGRESS NOTE SUBJECTIVE: The patient remains with trach collar. No pulmonary intervention planned. She has white out of the left lung due to progressive tumor invasion from head and neck cancer. Outpatient chemotherapy PHYSICAL EXAMINATION: VITAL SIGNS: Blood pressure 102/48, pulse 87, respiratory rate 20, and afebrile. LUNGS: Scattered rhonchi. HEART: Regular rhythm and rate. Normal S1 and S2 with a fourth heart sound. ABDOMEN: Soft. G-tube intact. EXTREMITIES: No edema. IMPRESSION: 1. Metastatic head and neck cancer. 2. Opacified left lung. 3. Secondary sinus tachycardia. 4. Paroxysmal atrial fibrillation. 5. Severe protein-calorie malnutrition. 6. Dysphagia with G-tube. 7. Chronic and autonomic dysfunction. PLAN: 1. Continue midodrine. 2. Respiratory hygiene. 3. Outpatient chemotherapy. 4. Off digoxin. 5. Titrate beta-diego based on clinical parameters. Chi Bhatti M.D. DR: Olegario JOB#: [id number] CC:
--- NOTE | 2017-08-24 00:46 | Discharge Summary ---
DATE OF ADMISSION: 08/14/2017 DATE OF DISCHARGE: 08/23/2017 ADMISSION DIAGNOSES: 1. Rash. 2. Cellulitis. 3. Scabies. 4. Chronic respiratory failure. 5. Toxic metabolic encephalopathy. 6. Functional quadriplegia. 7. Seizure disorder. DISCHARGE DIAGNOSES: 1. Rash. 2. Cellulitis. 3. Scabies. 4. Chronic respiratory failure. 5. Toxic metabolic encephalopathy. 6. Functional quadriplegia. 7. Seizure disorder. HOSPITAL COURSE: The patient presented with complaints of severe rash. She was initially treated for scabies and cellulitis. She received broad-spectrum IV antibiotics. She received IV Benadryl in addition to her antibiotics and Elimite treatment. Her rash did improve as did her itching. On discharge, she was stable. She had a CAT scan of the chest that did show significant metastatic disease in the left lung. She had previously been on Opdivo. According to the son, the patient was scheduled to be seen by Dr. Barber for possible re-initiation of Opdivo treatment. On discharge, the patient was stable. DISCHARGE MEDICATIONS: Please see discharge medication list for discharge medications. DIET: G-tube feedings. ACTIVITY: Ad-daren. FOLLOWUP: The patient to follow up in one to two weeks in the office. Rico Madrigal M.D. DR: AC JOB#: [id number] CC:
== END 2017-08-23 19:17 | disposition home or self-care (01) | DRG 602 ==
LOC: EMR 18:39 → ICU 19:20 → EDBEDREQ 20:15 → EDBEDREQSVC 20:30 → EDBEDREQ 20:30 → ICU 21:56 → 2W 08-15 04:55
DX: L03.312 Cellulitis of back [any part except buttock and flank] (principal); G92 Toxic encephalopathy; E43 Unspecified severe protein-calorie malnutrition; J90 Pleural effusion, not elsewhere classified; J18.9 Pneumonia, unspecified organism; J96.10 Chronic respiratory failure, unspecified whether with hypoxia or hypercapnia; C78.00 Secondary malignant neoplasm of unspecified lung; J44.0 Chronic obstructive pulmonary disease with (acute) lower respiratory infection; R53.2 Functional quadriplegia; I47.1 Supraventricular tachycardia; I48.91 Unspecified atrial fibrillation; Z93.0 Tracheostomy status; Z93.1 Gastrostomy status; C06.9 Malignant neoplasm of mouth, unspecified; B86 Scabies; R21 Rash and other nonspecific skin eruption; E03.9 Hypothyroidism, unspecified; G40.909 Epilepsy, unspecified, not intractable, without status epilepticus; I95.89 Other hypotension; Z68.23 Body mass index [BMI] 23.0-23.9, adult; F45.8 Other somatoform disorders
CPT/HCPCS: 36415; 71045; 71250; 76604; 80053; 80162; 81003; 82553; 83605; 84443; 85025; 85610; 87040; 87081; 87181; 87324; 93005; 93970; 94664; 94760; 99285; S0077

== ENCOUNTER 2017-09-09 17:45 | Inpatient (IN) | payer MEDICARE, BC ==
[~2017-09-09] VITALS: Ht 147.3 cm; Wt 67.6 kg
[~2017-09-09 17:45] MED LIST changes: +DOXYCYCLINE HY100 M2 GT; +MAGNESIUM400 M2 GT
--- NOTE | 2017-09-09 18:23 | Emergency Room Report ---
History of Present Illness General Chief Complaint: Dyspnea/Respdistress Source: Family Member Present Illness HPI 82-year-old female, history of head and neck cancer, metastasis to lung, with a tracheostomy, on 3 L at home, recent treatment for scabies, presenting with shortness of breath and hypoxia. Her son patient became acutely short of breath today, also diaphoretic, her heart rate went up to 140s, she was satting 80s on 3 L Patient states that patient was very cold, denies fever Nausea vomiting or diarrhea Allergies: Coded Allergies: PENICILLINS (Verified Allergy, Unknown, 07/31/16) Patient History Past Medical History: see triage record Past Surgical History: none Pertinent Family History: none Reviewed Nursing Documentation: PMH: Agreed; PSxH: Agreed Nursing Documentation-PMH Hx Cardiac Problems: Yes Hx COPD: Yes - Trache Hx Cancer: Yes - Head, neck, mouth CA,LUNG CA Hx Gastrointestinal Problems: Yes - Incontinent Hx Neurological Problems: Yes Hx Seizures: Yes Hx Speech Problem: Yes - trach Hx Weakness: Yes Review of Systems All Other Systems: limited Physical Exam Vital Signs Date Time Temp Pulse Resp B/P (MAP) Pulse Ox O2 Delivery O2 Flow Rate FiO2 09/09/17 17:57 100.2 113 32 120/55 100 Trach Collar 5.0 100.2 Sp02 EP Interpretation: abnormal General Appearance: moderate distress, cachetic, Chronically Ill Head: normocephalic, atraumatic Eyes: bilateral eye normal inspection, bilateral eye PERRL, bilateral eye EOMI ENT: other - +trach Neck: other - +trach Respiratory: respiratory distress, other - coarse b/s R lung, dec b/s Ll lung Cardiovascular #1: normal capillary refill, tachycardia Cardiovascular #2: 2+ radial (R), 2+ radial (L) Gastrointestinal: normal inspection, non tender, soft, non-distended, no guarding Musculoskeletal: other - moves all ext, no trauma Neurologic: other - awake, nonverbal d/t trach, moving all ext spont and on command Psychiatric: other Skin: normal inspection, normal color, no rash, warm/dry, well hydrated, normal turgor Procedures Critical Care Time Critical Care Time 40 minutes of CC time 82-year-old female, history of head and neck cancer, with a tracheostomy, left lung opacification, here for respiratory distress, found to have an STEMI VS: Tachypneic, hypoxic PLAN: IV access, labs, lactate, troponin, Blood/Urine Cx, Abx, IVF Anticipate admission to Tele vs. ANNALISA CC time also includes review of labs, review of EMR, discussion with family and paperwork from SNF, d/w hospitalist CC could include dosing of pressors, additional Abx CC time does not include procedures Medical Decision Making Diagnostic Impression: Primary Impression: Tracheostomy dependence Additional Impressions: Hypoxia Respiratory distress NSTEMI (non-ST elevated myocardial infarction) Lung metastases ER Course 82-year-old female, history of head and neck cancer, metastasis to lung, tracheostomy, presenting with shortness of breath and hypoxia DDX: Mucous secretions, Viral URI, pneumonia, fluid overload Plan: Obtain labs, ua, EKG, CXR ER course: Patient's tracheostomy hooked up to 3 L nasal cannula, now satting well noted to have elevated trop of 5 heparin/asa given slight hyperkalemia - tx with cocktail full discussion held with patients son, pt full code and wants all treatment [facility] contacted - no beds [facility] contacted - Accept[facility] clerical adjudicator Dr Armendariz, Dr Madrigal hospitalist also knows about pt Please note that this Emergency Department Report was dictated using [employer] former technology software, occasionally this can lead to erroneous entry secondary to interpretation by the dictation equipment. EKG Diagnostic Results EP Interpretation: Yes Rate: tachy Rhythm: NSR ST Segments: No acute changes ASA given to patient: Yes EKG Diagnostic Results #2 EP Interpretation: Yes Rate: Tachycardic Rhythm: NSR ST Segments: No acute changes ASA given to patient: Yes Rhythm Strip EP Interpretation: Yes Rate: 112 Rhythm: NSR, no PVCs, no ectopy Chest X-ray CXR: Ordered: Yes 1 view Indication: sob EP interpretation: Yes Interpretation: Opacification of left lung Impression: Opacification of left lung Electronically signed by Zehra Rodriguez MD Laboratory Tests Test 09/09/17 10:43 09/09/17 18:45 09/09/17 19:24 Sodium Level 134 MMOL/L (136-145) L 130 MMOL/L (136-145) L Potassium Level 5.4 MMOL/L (3.5-5.1) H 6.2 MMOL/L (3.5-5.1) *H Chloride Level 97 MMOL/L (98-107) L 94 MMOL/L (98-107) L Carbon Dioxide Level 34 MMOL/L (21-32) H 33 MMOL/L (21-32) H Anion Gap 3 mmol/L (5-15) L 3 mmol/L (5-15) L Blood Urea Nitrogen 31 mg/dL (7-18) H 31 mg/dL (7-18) H Creatinine 0.9 MG/DL (0.55-1.30) 1.0 MG/DL (0.55-1.30) Estimate Glomerular Filtration Rate mL/min (>60) mL/min (>60) Glucose Level 120 MG/DL (74-106) H 141 MG/DL (74-106) H Calcium Level 8.3 MG/DL (8.5-10.1) L 8.9 MG/DL (8.5-10.1) Total Bilirubin Pending 0.3 MG/DL (0.2-1.0) Aspartate Amino Transferase (AST) Pending 86 U/L (15-37) H Alanine Aminotransferase (ALT) Pending 21 U/L (12-78) Alkaline Phosphatase Pending 113 U/L (46-116) Total Protein Pending 8.8 G/DL (6.4-8.2) H Albumin Pending 2.8 G/DL (3.4-5.0) L Globulin Pending 6.0 g/dL White Blood Count 12.7 K/UL (4.8-10.8) H Red Blood Count 3.96 M/UL (4.20-5.40) L Hemoglobin 11.0 G/DL (12.0-16.0) L Hematocrit 35.1 % (37.0-47.0) L Mean Corpuscular Volume 88 FL (80-99) Mean Corpuscular Hemoglobin 27.7 PG (27.0-31.0) Mean Corpuscular Hemoglobin Concent 31.3 G/DL (32.0-36.0) L Red Cell Distribution Width 12.9 % (11.6-14.8) Platelet Count 261 K/UL (150-450) Mean Platelet Volume 7.7 FL (6.5-10.1) Neutrophils (%) (Auto) 85.4 % (45.0-75.0) H Lymphocytes (%) (Auto) 4.9 % (20.0-45.0) L Monocytes (%) (Auto) 7.6 % (1.0-10.0) Eosinophils (%) (Auto) 0.1 % (0.0-3.0) Basophils (%) (Auto) 2.0 % (0.0-2.0) Prothrombin Time 11.0 SEC (9.30-11.50) Prothrombin Time INR 1.1 (0.9-1.1) PTT 30 SEC (23-33) Troponin I 5.083 ng/mL (0.000-0.056) Pro-B-Type Natriuretic Peptide 2372 pg/mL (0-125) H Albumin/Globulin Ratio 0.5 (1.0-2.7) L Urine Color Yellow Urine Appearance Cloudy Urine pH 5 (4.5-8.0) Urine Specific [place] 1.020 (1.005-1.035) Urine Protein 3+ (NEGATIVE) H Urine Glucose (UA) Negative (NEGATIVE) Urine Ketones Negative (NEGATIVE) Urine Occult Blood 2+ (NEGATIVE) H Urine Nitrite Negative (NEGATIVE) Urine Bilirubin Negative (NEGATIVE) Urine Urobilinogen Normal MG/DL (0.0-1.0) Urine Leukocyte Esterase Negative (NEGATIVE) Urine RBC 0-2 /HPF (0 - 2) Urine WBC 0-2 /HPF (0 - 2) Urine Squamous Epithelial Cells Few /LPF (NONE/OCC) Urine Amorphous Sediment Many /LPF (NONE) H Urine Bacteria Moderate /HPF (NONE) H Last Vital Signs Date Time Temp Pulse Resp B/P (MAP) Pulse Ox O2 Delivery O2 Flow Rate FiO2 09/09/17 17:57 100.2 113 32 120/55 100 Trach Collar 5.0 100.2 Disposition: XFER SHT-TRM HOSP Condition: Critical Zehra Rodriguez M.D. Sep 09, 2017 18:23
[2017-09-09 18:56] VITALS: BP 120/55
[2017-09-09 19:03] LABS: HEMATOCRIT 35.1 % (37.0-47.0); MEAN CORPUSCULAR VOLUME 88 FL (80-99); PLATELET COUNT 261 K/UL (150-450); RED BLOOD COUNT 3.96 M/UL (4.20-5.40); RED CELL DISTRIBUTION WIDTH 12.9 % (11.6-14.8); WHITE BLOOD COUNT 12.7 K/UL (4.8-10.8)
[2017-09-09 19:04] LABS: EOSINOPHILS % (AUTO) 0.1 % (0.0-3.0); LYMPHOCYTES % (AUTO) 4.9 % (20.0-45.0); MONOCYTES % (AUTO) 7.6 % (1.0-10.0); NEUTROPHILS % (AUTO) 85.4 % (45.0-75.0)
[2017-09-09 19:21] LABS: ALANINE AMINOTRANSFERASE 21 U/L (12-78); ALBUMIN 2.8 G/DL (3.4-5.0); ALBUMIN/GLOBULIN RATIO 0.5 (1.0-2.7); ALKALINE PHOSPHATASE 113 U/L (46-116); ANION GAP 3 mmol/L (5-15); ASPARTATE AMINO TRANSFERASE 86 U/L (15-37); BILIRUBIN,TOTAL 0.3 MG/DL (0.2-1.0); BLOOD UREA NITROGEN 31 mg/dL (7-18); CALCIUM 8.9 MG/DL (8.5-10.1); CARBON DIOXIDE 33 MMOL/L (21-32); CHLORIDE 94 MMOL/L (98-107); SODIUM 130 MMOL/L (136-145)
[2017-09-09 19:27] LABS: POTASSIUM 6.2 MMOL/L (3.5-5.1)
[2017-09-09] MEDS ORDERED: Heparin 25,000u/D5W 500ml 500 ML IV SCH (19:30)
[2017-09-09] MEDS ORDERED: Heparin 5000 units/ml inj IV ONE (19:30)
[2017-09-09] MEDS ORDERED: Aspirin Baby 81mg NG ONE (19:30)
[2017-09-09] MEDS ORDERED: A AND D OINTM42.5 GM TP (19:48)
[2017-09-09] MEDS ORDERED: LANTISEPTIC OI113 GM TP (19:52)
[2017-09-09 19:58] LABS: APPEARANCE,URINE CLOUDY; BILIRUBIN, URINE NEGATIVE (NEGATIVE); COLOR,URINE YELLOW; GLUCOSE, URINE (UA) NEGATIVE (NEGATIVE); KETONES,URINE NEGATIVE (NEGATIVE); LEUKOCYTE ESTERASE ,URINE NEGATIVE (NEGATIVE); NITRITE,URINE NEGATIVE (NEGATIVE); PH,URINE 5 (4.5-8.0); PROTEIN,URINE 3+ (NEGATIVE); UROBILINOGEN,URINE NORMAL MG/DL (0.0-1.0)
[2017-09-09 20:04] LABS: INR 1.1 (0.9-1.1)
[2017-09-09 20:08] LABS: ANION GAP 3 mmol/L (5-15); BLOOD UREA NITROGEN 31 mg/dL (7-18); CALCIUM 8.3 MG/DL (8.5-10.1); CARBON DIOXIDE 34 MMOL/L (21-32); CHLORIDE 97 MMOL/L (98-107); CREATININE 0.9 MG/DL (0.55-1.30); POTASSIUM 5.4 MMOL/L (3.5-5.1); SODIUM 134 MMOL/L (136-145)
[2017-09-09] MEDS ORDERED: Sodium Bicarbonate 50ml Carp IV ONE (20:15)
[2017-09-09] MEDS ORDERED: Calcium Gluconate 1gm/10ml vial IVP ONE (20:15)
[2017-09-09 20:21] LABS: ALANINE AMINOTRANSFERASE 15 U/L (12-78); ALBUMIN 2.4 G/DL (3.4-5.0); ALBUMIN/GLOBULIN RATIO 0.5 (1.0-2.7); ALKALINE PHOSPHATASE 92 U/L (46-116); ASPARTATE AMINO TRANSFERASE 57 U/L (15-37); BILIRUBIN,TOTAL 0.2 MG/DL (0.2-1.0)
[2017-09-09] MEDS ORDERED: Albuterol ud Inhalation HHN ONE (21:30)
[2017-09-09 21:38] VITALS: BP 85/41
[2017-09-09 23:12] VITALS: BP 90/47
[2017-09-10] VITALS (31 sets, daily range): BP systolic 62–128; BP diastolic 24–62
[2017-09-10] MEDS ORDERED: dilTIAZem HCl 25mg/5ml Inj IVP ONE ×8 (00:45→03:00)
[2017-09-10] MEDS ORDERED: Digoxin 0.5mg/2ml Inj IVP ONE (01:15)
[2017-09-10] MEDS ORDERED: Ertapenem 1 GM in NS 55 ML IV ONE (01:30)
[2017-09-10] MEDS ORDERED: IMIPENEM/CILASTATIN IV 500 MG in NS 110 ML IV SCH (01:30)
[2017-09-10 05:01] LABS: INR 0.9 (0.9-1.1)
[2017-09-10] MEDS ORDERED: Heparin 25,000u/D5W 500ml 500 ML IV SCH (05:15)
[2017-09-10] MEDS ORDERED: HEPARIN IV SCH (05:30)
[2017-09-10] MEDS ORDERED: NS IV SCH (05:30)
[2017-09-10] MEDS ORDERED: Heparin 5000 units/ml inj IV ONE (05:45)
[2017-09-10 06:10] LABS: HEMATOCRIT 32.7 % (37.0-47.0); HEMOGLOBIN 9.9 G/DL (12.0-16.0); MEAN CORPUSCULAR VOLUME 92 FL (80-99); PLATELET COUNT 271 K/UL (150-450); RED BLOOD COUNT 3.56 M/UL (4.20-5.40); RED CELL DISTRIBUTION WIDTH 13.4 % (11.6-14.8); WHITE BLOOD COUNT 21.3 K/UL (4.8-10.8)
[2017-09-10 06:25] LABS: ANION GAP 1 mmol/L (5-15); BLOOD UREA NITROGEN 26 mg/dL (7-18); CALCIUM 8.3 MG/DL (8.5-10.1); CARBON DIOXIDE 34 MMOL/L (21-32); CHLORIDE 100 MMOL/L (98-107); POTASSIUM 5.5 MMOL/L (3.5-5.1); SODIUM 135 MMOL/L (136-145)
[2017-09-10] MEDS ORDERED: Levalbuterol Inh UD 1.25mg/0.5ml HHN PRN (08:30)
--- NOTE | 2017-09-10 09:03 | Diagnostic Imaging Report ---
Indication: Altered mental status Technique: Contiguous 5 mm thick transaxial imaging of the head obtained in a Siemens Sensation [address] scanner. Soft tissue and bone windows generated. Automatic Exposure Control was utilized. Total Dose length Product (DLP): 1337.[address] Dose Index Volume (CTDIvol): 70.38 mGy Comparison: 02/21/2017 Findings: There is mild prominence of the ventricles, basal cisterns, and cerebral sulci consistent with atrophy. Mild, nonspecific, white matter hypoattenuation is noted throughout the brain consistent with chronic small vessel disease. Small cystic foci noted in the basal ganglia bilaterally consistent with old lacunar infarcts. There is no midline shift, edema, acute hemorrhage, mass effect, or abnormal extra-axial fluid collections. Bones and extra osseous soft tissues are unremarkable. There is no change. There is moderate mucosal thickening noted within the paranasal sinuses. Impression: No acute intracranial bleed, mass effect or edema. Mild atrophy of the brain. Nonspecific white matter hypoattenuation probably due to chronic small vessel disease. Sinusitis The CT scanner at [facility] is accredited by the [employer] and the scans are performed using dose optimization techniques as appropriate to a performed exam including Automatic Exposure control.
--- NOTE | 2017-09-10 09:57 | Diagnostic Imaging Report ---
Indication: Chest pain Comparison: 08/20/2017 A single view chest radiograph was obtained. Findings: Evidence of a moderate to large left pleural effusion. Vascular congestion noted centrally. Tracheostomy demonstrated. Heart is enlarged. IMPRESSION: Similar findings with a moderate to large left pleural effusion. Underlying pneumonia, mass or other pathology not excludable. Suspected interstitial edema
--- NOTE | 2017-09-10 10:51 | Diagnostic Imaging Report ---
Indication: Dyspnea Comparison: 09/09/2017 A single view chest radiograph was obtained. Findings: There is a convex pleural based density the left lung apex which may represent loculated effusion. Much of the left pleural effusion has resolved. Central hilar edema and interstitial edema noted bilaterally. Heart is mildly enlarged. Tracheostomy again noted. IMPRESSION: Significant improvement in the left pleural effusion with some loculated component suspected in the left upper lobe. Interval increased central perihilar pulmonary edema
[2017-09-10] MEDS ORDERED: Vancomycin 1gm/D5W 275ml IVPB ONE ×2 (11:00)
[2017-09-10] MEDS: Aspirin Baby 81mg NG SCH (11:58)
[2017-09-10] MEDS: Digoxin Elixir 0.125mg GT SCH (11:58)
[2017-09-10] MEDS: Pantoprazole Inj IVP SCH (11:58)
[2017-09-10] MEDS: levETIRAcetam 500mg/5ml Liquid GT SCH ×2 (11:58→20:54)
[2017-09-10] MEDS: Vitamin A&D Oint 2oz Tube TOPIC SCH ×2 (11:59→18:31)
[2017-09-10] MEDS ORDERED: Ertapenem 1 GM in NS 55 ML IVPB SCH (12:00)
[2017-09-10] MEDS: Metoprolol 25mg tab ORAL SCH ×2 (13:00→20:56)
[2017-09-10] MEDS: Midodrine 10mg tab GT SCH ×2 (14:02→18:31)
--- NOTE | 2017-09-10 16:30 | History and Physical Report ---
DATE OF ADMISSION: 09/09/2017 CHIEF COMPLAINT: Acute WI, AFib with RVR. HISTORY OF PRESENT ILLNESS: The patient is an unfortunate 82-year-old female. 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 She was brought in by family members with complaints of shortness of breath. On initial evaluation in the emergency room, the patient had elevated troponin of 5. She was otherwise stable at that time and the plan was to transfer the patient to [facility] for possible evaluation for cardiac catheterization. The patient has since then developed AFib with RVR and is now on Cardizem drip. There are currently no ICU beds available. The patient is now being admitted here for further evaluation and treatment. She is poorly responsive and currently is on the vent. According to the staff, the patient did ambulate into the emergency room on a walker. The patient is unable to provide any additional history. PAST MEDICAL HISTORY: As above. The patient has history of GI bleed, chronic respiratory failure, history of anemia, and history of scabies. PAST SURGICAL HISTORY: Includes prior history of G-tube and tracheostomy. CURRENT MEDICATIONS: Reconciled and reviewed. ALLERGIES: Include penicillin. FAMILY HISTORY: Noncontributory. SOCIAL HISTORY: There is no known history of tobacco, ethanol, or drugs. REVIEW OF SYSTEMS: From the patient, unobtainable. PHYSICAL EXAMINATION: VITAL SIGNS: Temperature 99, pulse 120, respirations 12, and blood pressure 89/52. GENERAL: The patient is a well-developed, chronically ill-appearing female, currently poorly responsive. HEENT: The oropharynx is clear. Mucous membranes are dry. NECK: Supple. Trach site was midline and clean. HEART: Regular rate and rhythm. LUNGS: Significant for mild rhonchi with diminished breath sounds on the left. ABDOMEN: Soft, nontender, and nondistended. EXTREMITIES: Without clubbing, cyanosis, or edema. LABORATORY DATA: UA was clear. White count was 12, hemoglobin 11, hematocrit 35, and platelets are 261,000. Initial labs, sodium 134, potassium 5.4, chloride 97, bicarbonate 34, BUN 31, and creatinine 0.9. Natriuretic peptide level was 2000. Troponin was 5. 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 PROBLEMS: 1. Acute WI and shortness of breath, likely multifactorial. 2. History of malignant pleural effusion. 3. AFib with RVR. 4. Hyponatremia, hyperkalemia. 5. History of chronic respiratory failure and G-tube. PLAN: Admit to ICU bed. IV fluid resuscitation. The patient is currently off Cardizem drip due to hypotension. If the patient has recurrent AFib that is uncontrolled, we will consider amiodarone drip. Empiric antibiotic therapy until infection is ruled out. We will hold feeds in light of possible transfer for cardiac catheterization. The patient's status is currently critical and guarded. Overall prognosis is poor. Rico Madrigal M.D. DR: GAVIN JOB#: [id number] CC:
[2017-09-10] MEDS ORDERED: NS 250 ML IVPB ONE ×2 (19:00→20:45)
[2017-09-10] MEDS: Heparin 25,000u/D5W 500ml 500 ML IV SCH (19:32)
--- NOTE | 2017-09-10 21:45 | Progress Note ---
DATE: 09/10/2017 CARDIOLOGY PROGRESS NOTE CRITICAL CARE SUBJECTIVE: The patient remains on ventilator support via tracheostomy. She is poorly responsive. She converted to sinus rhythm early this morning. She remains on IV heparin and IV diltiazem was tapered off. OBJECTIVE: VITAL SIGNS: Blood pressure 105/60, pulse 92, respiratory rate 18 to 22, and she is afebrile. LUNGS: Coarse breath sounds, diminished at the left. HEART: Regular rhythm and rate. Normal S1 and S2 with a 4th heart sound. ABDOMEN: Soft. Trace edema. LABORATORY AND DIAGNOSTIC DATA: Chest x-ray reveals left-sided whiteout and loculated pleural effusion, slightly improved aeration from yesterday. Troponin has decreased from a peak of 5.08 to 3.25. Labs notable for sodium 135, potassium 5.5, bicarbonate 34, BUN 26, and creatinine 1.0. White count 21 and hemoglobin 9.9. ABG 7.32, 54, and 73. IMPRESSION: 1. Acute myocardial infarction. 2. Metastatic carcinoma of the head and neck with lung mets. 3. Left pleural effusion, presumed malignant. 4. Paroxysmal atrial fibrillation with rapid ventricular response, now in sinus rhythm. 5. Chronic low range blood pressure. 6. Autonomic dysfunction. 7. Hyperkalemia. 8. Anemia. 9. Tracheostomy and respiratory failure. 10. Acute diastolic congestive heart failure. PLAN: 1. Remain off diltiazem. 2. Start low dose beta-diego. 3. Continue IV heparin for rate control prophylaxis long-term. 4. Ventilator support. 5. Diuresis. Chi Bhatti M.D. DR: MYRNA JOB#: [id number] CC:
[2017-09-11] VITALS (24 sets, daily range): BP systolic 70–149; BP diastolic 22–93
[2017-09-11 05:25] LABS: HEMATOCRIT 23.6 % (37.0-47.0); HEMOGLOBIN 7.8 G/DL (12.0-16.0); MEAN CORPUSCULAR VOLUME 89 FL (80-99); PLATELET COUNT 175 K/UL (150-450); RED BLOOD COUNT 2.67 M/UL (4.20-5.40); RED CELL DISTRIBUTION WIDTH 12.7 % (11.6-14.8)
[2017-09-11 05:52] LABS: WHITE BLOOD COUNT 22.5 K/UL (4.8-10.8)
[2017-09-11 06:01] LABS: ALANINE AMINOTRANSFERASE 17 U/L (12-78); ALBUMIN 1.7 G/DL (3.4-5.0); ALBUMIN/GLOBULIN RATIO 0.4 (1.0-2.7); ALKALINE PHOSPHATASE 68 U/L (46-116); ANION GAP 10 mmol/L (5-15); ASPARTATE AMINO TRANSFERASE 67 U/L (15-37); BILIRUBIN,TOTAL 0.2 MG/DL (0.2-1.0); BLOOD UREA NITROGEN 38 mg/dL (7-18); CALCIUM 7.5 MG/DL (8.5-10.1); CARBON DIOXIDE 22 MMOL/L (21-32); CHLORIDE 105 MMOL/L (98-107); CHOLESTEROL 108 MG/DL (< 200); CREATININE 1.8 MG/DL (0.55-1.30); HDL CHOLESTEROL 42 MG/DL (40-60); POTASSIUM 4.2 MMOL/L (3.5-5.1); SODIUM 137 MMOL/L (136-145); TRIGLYCERIDES 83 MG/DL (30-150)
--- NOTE | 2017-09-11 06:39 | General Progress Note ---
Assessment/Plan Problem List: (1) Sepsis ICD Codes: A41.9 - Sepsis, unspecified organism SNOMED: 48421211 (2) Lung metastases ICD Codes: C78.00 - Secondary malignant neoplasm of unspecified lung SNOMED: 58341329 (3) Tracheostomy dependence ICD Codes: Z93.0 - Tracheostomy status SNOMED: 723179937, 921624172 (4) NSTEMI (non-ST elevated myocardial infarction) ICD Codes: I21.4 - Non-ST elevation (NSTEMI) myocardial infarction SNOMED: 700794203 (5) Hypoxia ICD Codes: R09.02 - Hypoxemia SNOMED: 638713029 (6) Shortness of breath ICD Codes: R06.02 - Shortness of breath SNOMED: 947058953 (7) Tongue malignant neoplasm ICD Codes: C02.9 - Malignant neoplasm of tongue, unspecified SNOMED: 582640297 (8) Respiratory failure ICD Codes: J96.90 - Respiratory failure, unspecified, unspecified whether with hypoxia or hypercapnia SNOMED: 046681529 Status: stable Assessment/Plan iv abx ivf follow up cultures vent support resp rx feeds transfuse prbcs stress ulcer prophylaxis d/w son poc x 5 mins Subjective ROS Limited/Unobtainable: No Constitutional: Reports: malaise, weakness HEENT: Reports: no symptoms Cardiovascular: Reports: no symptoms Respiratory: Reports: shortness of breath Gastrointestinal/Abdominal: Reports: difficulty swallowing Genitourinary: Reports: no symptoms Neurologic/Psychiatric: Reports: no symptoms Endocrine: Reports: no symptoms Hematologic/Lymphatic: Reports: anemia Allergies: Coded Allergies: PENICILLINS (Verified Allergy, Unknown, 07/31/16) All Systems: reviewed and negative except above Subjective no events. on the vent. decreased h/h noted. no bleeding. wbc higher. HR trend is better Objective Last 24 Hour Vital Signs Date Time Temp Pulse Resp B/P (MAP) Pulse Ox O2 Delivery O2 Flow Rate FiO2 09/11/17 05:25 110 18 60 09/11/17 05:00 114 17 126/50 94 Mechanical Ventilator 60 09/11/17 04:00 103 09/11/17 04:00 98.8 103 15 94/36 97 Mechanical Ventilator 60 98.8 09/11/17 04:00 85 09/11/17 03:00 104 16 91/39 98 Mechanical Ventilator 60 09/11/17 02:53 102 14 60 09/11/17 02:00 100 15 92/43 98 Mechanical Ventilator 60 09/11/17 01:00 102 16 92/32 98 Mechanical Ventilator 60 09/11/17 00:34 98 14 60 09/11/17 00:00 99.2 100 14 102/31 100 Mechanical Ventilator 60 99.2 09/11/17 00:00 60 09/11/17 00:00 100 09/10/17 23:01 94 13 60 09/10/17 23:00 94 14 94/35 99 Mechanical Ventilator 60 09/10/17 22:00 97 15 88/38 97 Mechanical Ventilator 60 09/10/17 21:00 95 14 86/37 97 Mechanical Ventilator 60 09/10/17 20:56 95 80/35 09/10/17 20:32 90 13 60 09/10/17 20:30 92 13 78/30 96 Mechanical Ventilator 60 09/10/17 20:00 98.9 94 13 81/27 97 Mechanical Ventilator 60 98.9 09/10/17 20:00 94 09/10/17 20:00 60 09/10/17 19:30 112 24 83/24 97 Mechanical Ventilator 60 09/10/17 19:00 92 12 83/24 99 Mechanical Ventilator 60 09/10/17 18:44 91 13 60 09/10/17 18:00 87 12 87/25 100 Mechanical Ventilator 60 09/10/17 17:00 88 12 90/38 100 Mechanical Ventilator 60 09/10/17 16:40 89 13 60 09/10/17 16:00 88 12 87/35 98 Mechanical Ventilator 60 09/10/17 16:00 89 09/10/17 16:00 60 09/10/17 15:00 90 12 89/44 98 Mechanical Ventilator 60 09/10/17 14:35 88 12 60 09/10/17 14:00 98.8 91 12 82/47 99 Mechanical Ventilator 60 98.8 09/10/17 13:29 93 12 60 09/10/17 13:00 91 12 89/44 99 Mechanical Ventilator 60 09/10/17 13:00 92 89/56 09/10/17 12:00 60 09/10/17 12:00 92 09/10/17 12:00 93 12 106/62 100 Mechanical Ventilator 60 4/9/18 11:58 98 09/10/17 11:00 90 12 91/48 100 Mechanical Ventilator 60 09/10/17 10:50 91 12 60 09/10/17 09:30 99.4 91 16 110/52 97 Mechanical Ventilator 60 09/10/17 09:20 99.4 89 12 112/49 98 Mechanical Ventilator 60 99.4 09/10/17 09:15 87 12 60 09/10/17 08:50 90 13 90/41 98 Mechanical Ventilator 60 09/10/17 08:40 88 13 92/38 96 Mechanical Ventilator 60 09/10/17 08:30 5.0 60 09/10/17 08:30 92 13 88/48 98 Mechanical Ventilator 60 09/10/17 08:10 120 12 100/40 100 Mechanical Ventilator 60 09/10/17 08:00 120 12 89/52 100 Mechanical Ventilator 60 09/10/17 07:45 125 16 100/56 96 Mechanical Ventilator 60 09/10/17 07:30 157 12 71/41 97 Mechanical Ventilator 60 09/10/17 07:20 156 13 62/48 97 Mechanical Ventilator 50 09/10/17 07:15 150 12 60 09/10/17 07:15 50 09/10/17 07:10 99.0 122 15 128/58 94 T-piece 5.0 99.0 09/10/17 07:03 100.4 123 34 115/42 90 T-piece 5.0 40 100.4 Intake and Output 09/10/17 09/11/17 19:00 07:00 Intake Total 1766.54 ml 1008.04 ml Output Total 450 ml 121 ml Balance 1316.54 ml 887.04 ml IV Total 1766.54 ml 1008.04 ml Output Urine Total 450 ml 1 ml Stool Total 120 ml # Voids 1 2 # Bowel Movements 2 103 Laboratory Tests 09/10/17 09:00: Arterial Blood pH 7.320L, Arterial Blood Partial Pressure CO2 53.6H, Arterial Blood Partial Pressure O2 72.6L, Arterial Blood HCO3 27.5H, Arterial Blood Oxygen Saturation 94.0, Arterial Blood Base Excess 1.0, Talha Test Positive 09/10/17 12:00: Prothrombin Time 10.3, Prothromb Time International Ratio 1.0, Activated Partial Thromboplast Time 71H, Troponin I 2.974H 09/11/17 05:00: Prothrombin Time 10.7, Prothromb Time International Ratio 1.0, Activated Partial Thromboplast Time 79H, Troponin I 1.369H, White Blood Count 22.5*H, Red Blood Count 2.67L, Hemoglobin 7.8L, Hematocrit 23.6L, Mean Corpuscular Volume 89 , Mean Corpuscular Hemoglobin 29.2, Mean Corpuscular Hemoglobin Concent 32.9, Red Cell Distribution Width 12.7, Platelet Count 175, Mean Platelet Volume 7.3, Neutrophils (%) (Auto) , Lymphocytes (%) (Auto) , Monocytes (%) (Auto) , Eosinophils (%) (Auto) , Basophils (%) (Auto) , Neutrophils % (Manual) [Pending] , Lymphocytes % (Manual) [Pending], Platelet Estimate [Pending], Platelet Morphology [Pending], Sodium Level 137, Potassium Level 4.2, Chloride Level 105 , Carbon Dioxide Level 22, Anion Gap 10, Blood Urea Nitrogen 38H, Creatinine 1.8 #H, Estimat Glomerular Filtration Rate , Glucose Level 97, Calcium Level 7.5L, Magnesium Level 1.7L, Total Bilirubin 0.2, Aspartate Amino Transf (AST/SGOT) 67H , Alanine Aminotransferase (ALT/SGPT) 17, Alkaline Phosphatase 68, Pro-B-Type Natriuretic Peptide 22062K, Total Protein 6.2L, Albumin 1.7L, Globulin 4.5, Albumin/Globulin Ratio 0.4L, Triglycerides Level 83, Cholesterol Level 108, LDL Cholesterol 59, HDL Cholesterol 42, Cholesterol/HDL Ratio 2.6L Height (Feet): 4 Height (Inches): 10.00 Weight (Pounds): 117 General Appearance: WD/WN, thin Neck: supple Cardiovascular: tachycardia Respiratory/Chest: decreased breath sounds Abdomen: normal bowel sounds, non tender, soft, no organomegaly Edema: no edema noted Arm (L), no edema noted Arm (R), no edema noted Leg (L), no edema noted Leg (R), no edema noted Pedal (L), no edema noted Pedal (R), no edema noted Generalized Neurologic: disoriented CHRISTINA HAMMOND Sep 11, 2017 06:39
[2017-09-11] MEDS: Heparin 25,000u/D5W 500ml 500 ML IV SCH (06:52)
[2017-09-11] MEDS: levETIRAcetam 500mg/5ml Liquid GT SCH ×2 (08:41→21:00)
[2017-09-11] MEDS: Pantoprazole Inj IVP SCH (08:42)
[2017-09-11] MEDS: Vitamin A&D Oint 2oz Tube TOPIC SCH ×2 (08:42→17:56)
[2017-09-11] MEDS: Digoxin Elixir 0.125mg GT SCH (08:42)
[2017-09-11] MEDS: Aspirin Baby 81mg NG SCH (09:00)
[2017-09-11] MEDS: Metoprolol 25mg tab ORAL SCH ×2 (09:00→21:01)
[2017-09-11] MEDS: Acetaminophen 650mg/20.3ml GT PRN ×2 (09:11→14:48)
[2017-09-11] MEDS: Midodrine 10mg tab GT SCH ×3 (09:46→17:56)
[2017-09-11] MEDS ORDERED: Lidocaine 1% Plain 30 ml INJ ONE (11:00)
[2017-09-11] MEDS ORDERED: Heparin 2000 units/Ns 1000ml IV ONE (11:00)
[2017-09-11] MEDS ORDERED: Vancomycin 750 MG in NS 275 ML IVPB SCH (11:00)
[2017-09-11] MEDS ORDERED: Sodium Chloride 500ML 500 ML IV ONE (12:00)
--- NOTE | 2017-09-11 15:54 | Diagnostic Imaging Report ---
Indications: Needs long-term IV access Technique: Procedure performed at bedside. Procedural timeout performed. Ultrasound confirms patent compressible right brachial vein. Total sterile technique, including sterile probe cover and sterile gel, sterile gloves, hand hygiene, hat, mask,, sterile gown, large sterile drape, and preparation with 2% chlorhexidine utilized. Local anesthesia with 1% lidocaine. Under real-time ultrasound guidance, puncture ] vein using 21-gauge needle, passage 0.018 guidewire which would not pass beyond about 25 cm. Exchange for 5 [place] peel-away sheath. 5 [place] Bard dual-lumen power PICC cut to 15 cm. It was inserted through the peel-away sheath. Peel-away sheath and guidewire removed. Catheter fixed to the skin. Both catheter ports aspirated and flushed. Patient tolerated procedure well, without immediate complication. Followup chest x-ray obtained, documents catheter tip position at the level of the right axillary vein Impression: Successful bedside placement of PICC under sonographic guidance, as described above. Note, however, that the guidewire would not pass centrally, so catheter had to be cut short and is suitable only for use as a midline
--- NOTE | 2017-09-11 16:15 | Consultation ---
DATE OF CONSULTATION: 09/11/2017 PULMONARY CONSULTATION CONSULTING PHYSICIAN: Brice Grove M.D. REFERRING PHYSICIAN: Rico Madrigal M.D. REASON FOR CONSULTATION: Respiratory failure. HISTORY: This is an 82-year-old unfortunate female, who presents for rapid atrial fibrillation, possible acute myocardial infarction. The patient was placed on heparin and also noted to have some hemoptysis. 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 The patient was brought in with shortness of breath. In the emergency room, the patient was noted to have an elevated troponin. The patient is now admitted to ICU. The patient was unable to be transferred due to instability and rapid atrial fibrillation. The patient is now admitted for ongoing care and management. The patient per staff had hemoptysis and on heparin drip. The patient unable to respond at present. Care discussed and reviewed. I was called to assist and evaluate the patient presently on the ventilator. PAST MEDICAL HISTORY: Notable for metastatic squamous cell carcinoma with significant metastasis to the lungs with some associated atelectasis. The patient also with history of GI bleed, history of tracheostomy, history of chronic respiratory failure, history of prior scabies, history of multiple pneumonias, history of G-tube. MEDICATIONS: Reviewed. ALLERGIES: Reviewed. SOCIAL HISTORY: The patient lives at home with son who has been her primary caregiver. The patient has been Full Code. PHYSICAL EXAMINATION: GENERAL: A well-developed female, chronically ill appearing. VITAL SIGNS: 82, heart rate 136, blood pressure 149/37, saturations 91% on 100% FiO2. HEENT: Negative at present. Tracheostomy in midline. Carotids 2+. LUNGS: With coarse breath sounds, but reduced breath sounds in the left lung. CARDIAC: Normal S1, S2. Tachycardic and irregular. ABDOMEN: Soft, nontender. G-tube in place. EXTREMITIES: No cyanosis or clubbing. There is trace edema. NEUROLOGICAL: Presently obtunded with reduced mental status. SKIN: Noted and evaluated. LABORATORY DATA: Lab data reviewed. White cell count 22, hemoglobin 7.8, hematocrit 23, platelets are 175,000. ABG, pH 7.32, pCO2 53, pO2 72. The chemistries, sodium 137, BUN 38, creatinine 1.8. Troponin initially 3.2, now down to 1.36. BNP 13,430. Albumin is 1.7. Imaging with minimal improvement although reported as left pleural effusion on prior CT, likely significant metastasis to the lung. IMPRESSION: Atrial fibrillation with rapid ventricular response, noted fever, possible sepsis, possible postobstructive pneumonia, significant metastatic cancer to the lung with compromise, profound hypoxemia likely due to significant metastasis, failure to thrive, severe protein-calorie malnutrition, noted hemoptysis secondary to metastatic cancer as well as due to heparin use, evidence of acute renal failure, evidence of worsening anemia. RECOMMENDATION: Supportive care. At present, we will discontinue heparin. This patient is not stable. We will agree with empiric antibiotics. Consider bronchoscopy although this will doubtfully prove to be of any utility. Monitor anticoagulation. Monitor hemodynamics. Heart rate control and close followup. As mentioned, prognosis appears to be poor. The patient appears to be an appropriate hospice candidate, but we will defer to primary M.D. as well as to the patient's son. We will give additional antibiotics while the patient is penicillin allergic. We therefore at present will certainly recommend ID evaluation to assist and recommend. Prognosis appears to be poor and as mentioned, heparin would not be recommended at this time. We will follow clinically for change and recommend further pending evaluation and maintain ICU care for now. Brice Grove M.D. DR: Sid JOB#: [id number] CC: MCKENZIE
--- NOTE | 2017-09-11 16:45 | Consultation ---
DATE OF CONSULTATION: 09/11/2017 INFECTIOUS DISEASE CONSULTATION CONSULTING PHYSICIAN: Sai Charles M.D. REFERRING PHYSICIAN: Rico Madrigal M.D. REASON FOR CONSULTATION: Pneumonia. 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 She was found to have atrial fibrillation with rapid ventricular rate and has been admitted to the ICU and an Infectious Diseases consultation has been obtained for antibiotics. PAST MEDICAL HISTORY: 1. History of respiratory failure status post tracheostomy. 2. GI bleeding. 3. Anemia. 4. Scabies, status post treatment. 5. G-tube placement. 6. Tracheostomy. 7. History of metastatic squamous cell carcinoma to the tongue. MEDICATIONS: As an inpatient, the patient is on vancomycin, Tylenol, midodrine, metoprolol, digoxin, Keppra, levothyroxine, vitamin A and D, Protonix, aspirin and levalbuterol. ALLERGIES: The patient is allergic to penicillin. SOCIAL HISTORY: No history of smoking, alcohol, or drug use. FAMILY HISTORY: Noncontributory. REVIEW OF SYSTEMS: Unable to obtain currently. PHYSICAL EXAMINATION: VITAL SIGNS: Temperature 102 degrees, T-max of 102 degrees, pulse of 122, respiratory rate of 18, blood pressure 149/77 and O2 saturation of 91%. HEENT: Pupils equally reactive to light and accommodation. Mouth appears clean without thrush. NECK: Supple. No adenopathy. No JVD. Tracheostomy site appears clean. CARDIOVASCULAR: Regular rate and rhythm. No murmurs. LUNGS: Clear to auscultation bilaterally. No crackles. No wheezes. ABDOMEN: Soft and nontender. No organomegaly. G-tube site appears clean. EXTREMITIES: No cyanosis, no clubbing, and no edema. LABORATORY AND DIAGNOSTIC DATA: White count of 22.5, hemoglobin 7.8, hematocrit 23.6, MCV 89, platelet count of 175, and neutrophils of 58%. Sodium 137, potassium 4.2, chloride 105, bicarbonate 22, BUN 38, creatinine 1.8, glucose 97, and calcium 7.5. Total bilirubin 0.2. AST 67, ALT 17, and alkaline phosphatase 68. Troponin of 13,430. Total protein 6.2. Albumin 1.7. Cholesterol of 108. UA is showing 0-2 white cells. Urine cultures are negative. Chest x-ray with significant improvement in the left-sided pleural effusion with some loculated component in the right upper lobe. Interval increase in central perihilar pulmonary edema. CT head showing no acute bleed, mass effect, or edema. Mild atrophy of the brain. Chronic small-vessel disease noted. Sinusitis noted. ASSESSMENT: 1. This is an 82-year-old lady with history of tongue cancer status post tracheostomy for respiratory failure who comes in with leukocytosis, would be concerned regarding pneumonia as a possibility. She has a penicillin allergy. 2. History of tuberculosis, status post treatment. 3. Respiratory failure, status post tracheostomy PLAN: 1. Continue IV vancomycin. 2. Discontinue ertapenem and we will start the patient on meropenem 3. We will order sputum. 4. We will order sputum for Gram stain. 5. We will follow up cultures and narrow down antibiotics quickly. I would like to thank Dr. Madrigal for this consultation. Sai Charles M.D. DR: DEBORAH JOB#: [id number] CC: Rico Madrigal M.D. MTDD
[2017-09-11] MEDS: Dyna-Hex 2% Top Sol 2oz TOPIC SCH (19:45)
[2017-09-12] VITALS (29 sets, daily range): BP systolic 44–142; BP diastolic 27–91
[2017-09-12] MEDS ORDERED: Digoxin 0.5mg/2ml Inj IVP ONE (00:30)
--- NOTE | 2017-09-12 00:45 | Progress Note ---
DATE: 09/11/2017 CARDIOLOGY PROGRESS NOTE SUBJECTIVE: The patient remains on ventilator support via tracheostomy. Monitored rhythm sinus with paroxysms of atrial fibrillation and rapid ventricular response. OBJECTIVE: VITAL SIGNS: Blood pressure 103/48, heart rate 128, respiratory rate 20, and afebrile. LUNGS: Coarse breath sounds. Scattered rales. HEART: Irregularly irregular rhythm. Normal S1 and S2. ABDOMEN: Soft. G-tube intact. EXTREMITIES: Trace edema. NEUROLOGIC: Noncommunicative. LABORATORY DATA: White count increased to 22, hemoglobin 7.8. Troponin 1.36. Pro-natriuretic peptide 13,000. BUN 38, creatinine 1.8, and potassium 4.2. Albumin 1.7. ABG, 7.36, 36, and 46. IMPRESSION: 1. Respiratory failure. 2. Metastatic head and neck cancer. 3. Hypoxia. 4. Acute myocardial infarction. 5. Paroxysmal atrial fibrillation with rapid ventricular response. 6. Sepsis with shock. 7. Leukocytosis. 8. Anemia. 9. Severe protein-calorie malnutrition. 10. Probable pneumonia. PLAN: 1. Ventilator support. 2. No anticoagulation due to bleeding risk. 3. Empiric antibiotic and respiratory hygiene. 4. Beta-diego and digitalis for rate control. 5. Maintain midodrine for blood pressure support and taper off pressors. Chi Bhatti M.D. DR: JANAY JOB#: [id number] CC: MCKENZIE
--- NOTE | 2017-09-12 02:15 | Consultation ---
DATE OF CONSULTATION: 09/09/2017 CARDIOLOGY CONSULTATION CONSULTING PHYSICIAN: Chi Bhatti M.D. REQUESTING PHYSICIAN: Rico Madrigal M.D. REASON FOR CONSULTATION: Elevated troponin level. HISTORY OF PRESENT ILLNESS: This is an unfortunate 82-year-old female with tracheostomy due to metastatic squamous cell carcinoma, metastatic to the left lung from the tongue. The patient was brought into the emergency room with shortness of breath. She was noted to have an elevated troponin as well as signs of acute respiratory insufficiency. She was also noted to have atrial fibrillation with rapid ventricular response and started on Cardizem drip in the emergency room. ICU admission was arranged. The patient has not complained of chest pain, but her history is not able to give much reliable history. There is no prior history of myocardial infarction. PAST MEDICAL HISTORY: Paroxysmal atrial fibrillation, paroxysmal supraventricular tachycardia, anemia due to chronic disease, history of scabies, tracheostomy with respiratory failure, metastatic carcinoma of the head and neck involving the lungs, hypothyroidism, and dysphagia with G-tube. MEDICATIONS: Prior to admission, reviewed and reconciled. ALLERGIES: Penicillin. SOCIAL HISTORY: No record of smoking, alcohol, or substance abuse. FAMILY HISTORY: Noncontributory. REVIEW OF SYSTEMS: Presently, not obtainable from the patient. Prior records are reviewed data outlined above. PHYSICAL EXAMINATION: VITAL SIGNS: Temperature 99 degrees, blood pressure 89/52, heart rate 120, and respiratory rate 12. NECK: Trach site with thin secretions. LUNGS: Bilateral rales. HEART: Irregularly irregular rhythm with rapid S1 and S2. No murmur. ABDOMEN: Soft, nontender. G-tube intact. EXTREMITIES: Trace edema. LABORATORY AND DIAGNOSTIC DATA: EKG with atrial fibrillation, nonspecific ST-T wave changes. Troponin level 5. Pro-natriuretic peptide is 2000. IMPRESSION: 1. Acute myocardial infarction. 2. Acute and chronic respiratory failure. 3. Metastatic squamous cell carcinoma. 4. Possible postobstructive pneumonia. 5. Paroxysmal atrial fibrillation now with rapid ventricular response. PLAN: 1. Volume resuscitation. 2. Anti-platelet therapy. 3. Continue digitalis. 4. Add beta-diego once blood pressure stabilizes. 5. Volume support as needed. 6. Avoid pressors if able, but Levophed may be required. 7. Full anticoagulation for cardioembolic prophylaxis at this time as well as respiratory hygiene. 8. Condition critical. 9. Prognosis guarded. 10. Because of her advanced end-stage carcinoma, I do not feel she is a candidate for any additional invasive cardiac treatment at this time. Chi Bhatti M.D. DR: Marissa JOB#: [id number] CC:
[2017-09-12 05:49] LABS: HEMATOCRIT 30.2 % (37.0-47.0); HEMOGLOBIN 9.7 G/DL (12.0-16.0); MEAN CORPUSCULAR VOLUME 87 FL (80-99); PLATELET COUNT 182 K/UL (150-450); RED BLOOD COUNT 3.45 M/UL (4.20-5.40); RED CELL DISTRIBUTION WIDTH 12.9 % (11.6-14.8); WHITE BLOOD COUNT 18.9 K/UL (4.8-10.8)
[2017-09-12 06:19] LABS: ALANINE AMINOTRANSFERASE 15 U/L (12-78); ALBUMIN 1.6 G/DL (3.4-5.0); ALBUMIN/GLOBULIN RATIO 0.3 (1.0-2.7); ALKALINE PHOSPHATASE 79 U/L (46-116); ANION GAP 12 mmol/L (5-15); ASPARTATE AMINO TRANSFERASE 71 U/L (15-37); BILIRUBIN,TOTAL 0.4 MG/DL (0.2-1.0); BLOOD UREA NITROGEN 47 mg/dL (7-18); CALCIUM 7.6 MG/DL (8.5-10.1); CARBON DIOXIDE 21 MMOL/L (21-32); CHLORIDE 106 MMOL/L (98-107); CREATININE 2.6 MG/DL (0.55-1.30); POTASSIUM 4.8 MMOL/L (3.5-5.1); SODIUM 139 MMOL/L (136-145)
--- NOTE | 2017-09-12 08:23 | General Progress Note ---
Assessment/Plan Problem List: (1) Sepsis ICD Codes: A41.9 - Sepsis, unspecified organism SNOMED: 22392652 (2) Lung metastases ICD Codes: C78.00 - Secondary malignant neoplasm of unspecified lung SNOMED: 33935689 (3) Tracheostomy dependence ICD Codes: Z93.0 - Tracheostomy status SNOMED: 604936980, 863885966 (4) NSTEMI (non-ST elevated myocardial infarction) ICD Codes: I21.4 - Non-ST elevation (NSTEMI) myocardial infarction SNOMED: 924003559 (5) Hypoxia ICD Codes: R09.02 - Hypoxemia SNOMED: 636355194 (6) Shortness of breath ICD Codes: R06.02 - Shortness of breath SNOMED: 155561963 (7) Tongue malignant neoplasm ICD Codes: 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.9 - Malignant neoplasm of tongue, unspecified SNOMED: 877815314 (8) Respiratory failure ICD Codes: J96.90 - Respiratory failure, unspecified, unspecified whether with hypoxia or hypercapnia SNOMED: 793513338 Status: stable, not improved Assessment/Plan iv abx follow up cultures vent support titrate fio2 monitor cxr check duplex resp rx feeds transfuse prbcs stress ulcer prophylaxis d/w son critical and guarded poor prognosis Subjective ROS Limited/Unobtainable: No Constitutional: Reports: malaise, weakness HEENT: Reports: no symptoms Cardiovascular: Reports: no symptoms Respiratory: Reports: no symptoms Gastrointestinal/Abdominal: Reports: difficulty swallowing Genitourinary: Reports: no symptoms Neurologic/Psychiatric: Reports: no symptoms Endocrine: Reports: no symptoms Hematologic/Lymphatic: Reports: anemia Allergies: Coded Allergies: PENICILLINS (Verified Allergy, Unknown, 07/31/16) All Systems: reviewed and negative except above Subjective progressively hypoxic yesterday. large mucous plug suctioned. sats better but still on 100% fio2. off pressors. renal fxn worse on labs. midline placed. cxr from yesterday better except for worsening chf Objective Last 24 Hour Vital Signs Date Time Temp Pulse Resp B/P (MAP) Pulse Ox O2 Delivery O2 Flow Rate FiO2 09/12/17 07:25 112 23 100 09/12/17 07:00 97 18 110/35 96 Mechanical Ventilator 100 09/12/17 06:00 91 22 96/33 96 Mechanical Ventilator 100 09/12/17 05:19 89 22 100 4/11/18 05:00 85 22 101/33 93 Mechanical Ventilator 100 09/12/17 04:00 100 09/12/17 04:00 98.7 90 19 100/53 95 Mechanical Ventilator 100 98.7 09/12/17 04:00 90 09/12/17 03:30 121 20 100 09/12/17 03:00 88 16 138/46 96 Mechanical Ventilator 100 09/12/17 02:00 126 22 117/42 94 Mechanical Ventilator 100 09/12/17 01:30 125 21 100 09/12/17 01:00 156 21 95/40 97 Mechanical Ventilator 100 09/12/17 00:30 125 21 103/59 96 Mechanical Ventilator 100 09/12/17 00:28 138 09/12/17 00:00 100 09/12/17 00:00 98.9 89 21 103/48 96 Mechanical Ventilator 100 98.9 09/12/17 00:00 89 09/11/17 23:30 80 20 100 09/11/17 23:00 89 21 104/49 95 Mechanical Ventilator 100 09/11/17 22:00 86 21 110/44 96 Mechanical Ventilator 100 09/11/17 21:19 84 21 100 09/11/17 21:01 88 112/46 09/11/17 21:00 87 19 97/41 93 Mechanical Ventilator 100 09/11/17 21:00 112/46 09/11/17 20:00 99 09/11/17 20:00 100 09/11/17 20:00 98.8 99 20 118/51 93 Mechanical Ventilator 100 98.8 09/11/17 19:30 102 21 88/48 89 Mechanical Ventilator 100 09/11/17 19:30 98 20 100 09/11/17 18:00 104 22 92/45 87 Mechanical Ventilator 100 09/11/17 17:00 110 21 94/62 79 Mechanical Ventilator 100 09/11/17 16:41 115 24 100 09/11/17 16:00 99.0 118 16 84/29 77 Mechanical Ventilator 100 99.0 09/11/17 16:00 100 09/11/17 15:33 112 09/11/17 15:00 118 23 79/22 79 Mechanical Ventilator 100 09/11/17 14:53 114 23 100 09/11/17 14:00 121 22 84/43 75 Mechanical Ventilator 100 09/11/17 13:03 118 21 100 09/11/17 13:00 98.5 117 22 120/93 72 Mechanical Ventilator 100 98.5 09/11/17 12:11 111 09/11/17 12:00 119 21 79/22 80 Mechanical Ventilator 100 09/11/17 11:00 114 21 70/33 83 Mechanical Ventilator 100 09/11/17 10:52 122 18 100 09/11/17 10:32 100 09/11/17 10:00 120 22 85/24 82 Mechanical Ventilator 100 09/11/17 09:41 102.0 09/11/17 09:11 101.3 09/11/17 09:00 101.3 136 19 149/37 91 Mechanical Ventilator 100 101.3 09/11/17 08:55 138 18 100 09/11/17 08:42 135 Intake and Output 09/11/17 09/12/17 19:00 07:00 Intake Total 2165.038 ml 430 ml Output Total 225 ml 300 ml Balance 1940.038 ml 130 ml Free Water 40 ml 90 ml IV Total 1725.038 ml 100 ml Tube Feeding 150 ml 240 ml Blood Product 250 ml Output Urine Total 75 ml 180 ml Stool Total 150 ml 120 ml # Voids 1 # Bowel Movements 4 3 Laboratory Tests 09/11/17 11:10: Arterial Blood pH 7.359, Arterial Blood Partial Pressure CO2 36.1, Arterial Blood Partial Pressure O2 45.8*L, Arterial Blood HCO3 19.9L, Arterial Blood Oxygen Saturation 81.5L, Arterial Blood Base Excess -5.0, Talha Test Positive 09/12/17 05:00: White Blood Count 18.9H, Red Blood Count 3.45L, Hemoglobin 9.7L, Hematocrit 30.2L, Mean Corpuscular Volume 87, Mean Corpuscular Hemoglobin 28.2, Mean Corpuscular Hemoglobin Concent 32.3, Red Cell Distribution Width 12.9, Platelet Count 182, Mean Platelet Volume 7.7, Neutrophils (%) (Auto) , Lymphocytes (%) ( Auto) , Monocytes (%) (Auto) , Eosinophils (%) (Auto) , Basophils (%) (Auto) , Differential Total Cells Counted 100, Neutrophils % (Manual) 76H, Lymphocytes % (Manual) 6L, Monocytes % (Manual) 6, Eosinophils % (Manual) 0, Basophils % ( Manual) 0, Band Neutrophils 12H, Platelet Estimate Adequate, Platelet Morphology Normal, Hypochromasia 1+, Sodium Level 139, Potassium Level 4.8, Chloride Level 106, Carbon Dioxide Level 21, Anion Gap 12, Blood Urea Nitrogen 47H, Creatinine 2.6H, Estimat Glomerular Filtration Rate , Glucose Level 87, Calcium Level 7.6L, Magnesium Level 1.7L, Total Bilirubin 0.4, Aspartate Amino Transf (AST/SGOT) 71H, Alanine Aminotransferase (ALT/SGPT) 15, Alkaline Phosphatase 79, Total Protein 6.2L, Albumin 1.6L, Globulin 4.6, Albumin/ Globulin Ratio 0.3L Height (Feet): 4 Height (Inches): 10.00 Weight (Pounds): 116 General Appearance: WD/WN, confused, thin Neck: supple Cardiovascular: normal rate, regular rhythm Respiratory/Chest: rhonchi - bilaterally Abdomen: normal bowel sounds, non tender, soft, no organomegaly Edema: no edema noted Arm (L), no edema noted Arm (R), no edema noted Leg (L), no edema noted Leg (R), no edema noted Pedal (L), no edema noted Pedal (R), no edema noted Generalized CHRISTINA HAMMOND Sep 12, 2017 08:23
[2017-09-12] MEDS: Pantoprazole Inj IVP SCH (09:00)
[2017-09-12] MEDS: levETIRAcetam 500mg/5ml Liquid GT SCH ×2 (09:00→21:00)
[2017-09-12] MEDS: Aspirin Baby 81mg NG SCH (09:00)
[2017-09-12] MEDS: Midodrine 10mg tab GT SCH ×3 (09:00→18:54)
[2017-09-12] MEDS: Digoxin Elixir 0.125mg GT SCH (09:00)
[2017-09-12] MEDS ORDERED: Metoprolol 25mg tab ORAL SCH (09:00)
[2017-09-12] MEDS: Vitamin A&D Oint 2oz Tube TOPIC SCH ×2 (09:01→18:53)
--- NOTE | 2017-09-12 10:19 | Critical Care Progress Note ---
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 PLAN care noted IV antibiotics respiratory care Ventilatory settings as is and adjust PEEP SNF meds supportive care suction and consider bronch for clearance of secretions no wean planned oxygen therapy at max dose prognosis poor advanced directives medications/laboratory data/nursing notes/ICU care reviewed in detail note reviewed and edited care discussed with RN and RT ICU time spent 40 minutes Critical Care - Subjective Interval Events: slightly better still on 100% mucous plug suctioned out still critical ROS Limited/Unobtainable: Yes EKG Rhythm: Atrial Fibrillation Residuals: minimal Tube Feeding Tolerated: yes I&O: Intake and Output 09/11/17 09/12/17 19:00 07:00 Intake Total 2165.038 ml 430 ml Output Total 225 ml 300 ml Balance 1940.038 ml 130 ml Free Water 40 ml 90 ml IV Total 1725.038 ml 100 ml Tube Feeding 150 ml 240 ml Blood Product 250 ml Output Urine Total 75 ml 180 ml Stool Total 150 ml 120 ml # Voids 1 # Bowel Movements 4 3 Critical Care - Objective Last 24 Hour Vital Signs Date Time Temp Pulse Resp B/P (MAP) Pulse Ox O2 Delivery O2 Flow Rate FiO2 09/12/17 09:28 96 21 100 09/12/17 09:00 99 101/33 09/12/17 09:00 100 09/12/17 08:00 100 09/12/17 08:00 100.1 99 23 101/33 97 Mechanical Ventilator 100 100.1 09/12/17 07:25 112 23 100 09/12/17 07:00 97 18 110/35 96 Mechanical Ventilator 100 09/12/17 06:00 91 22 96/33 96 Mechanical Ventilator 100 09/12/17 05:19 89 22 100 09/12/17 05:00 85 22 101/33 93 Mechanical Ventilator 100 09/12/17 04:00 100 09/12/17 04:00 98.7 90 19 100/53 95 Mechanical Ventilator 100 98.7 09/12/17 04:00 90 09/12/17 03:30 121 20 100 09/12/17 03:00 88 16 138/46 96 Mechanical Ventilator 100 09/12/17 02:00 126 22 117/42 94 Mechanical Ventilator 100 09/12/17 01:30 125 21 100 09/12/17 01:00 156 21 95/40 97 Mechanical Ventilator 100 09/12/17 00:30 125 21 103/59 96 Mechanical Ventilator 100 09/12/17 00:28 138 09/12/17 00:00 100 09/12/17 00:00 98.9 89 21 103/48 96 Mechanical Ventilator 100 98.9 09/12/17 00:00 89 09/11/17 23:30 80 20 100 09/11/17 23:00 89 21 104/49 95 Mechanical Ventilator 100 09/11/17 22:00 86 21 110/44 96 Mechanical Ventilator 100 09/11/17 21:19 84 21 100 09/11/17 21:01 88 112/46 09/11/17 21:00 87 19 97/41 93 Mechanical Ventilator 100 09/11/17 21:00 112/46 09/11/17 20:00 99 09/11/17 20:00 100 09/11/17 20:00 98.8 99 20 118/51 93 Mechanical Ventilator 100 98.8 09/11/17 19:30 102 21 88/48 89 Mechanical Ventilator 100 09/11/17 19:30 98 20 100 09/11/17 18:00 104 22 92/45 87 Mechanical Ventilator 100 09/11/17 17:00 110 21 94/62 79 Mechanical Ventilator 100 09/11/17 16:41 115 24 100 09/11/17 16:00 99.0 118 16 84/29 77 Mechanical Ventilator 100 99.0 09/11/17 16:00 100 09/11/17 15:33 112 09/11/17 15:00 118 23 79/22 79 Mechanical Ventilator 100 09/11/17 14:53 114 23 100 09/11/17 14:00 121 22 84/43 75 Mechanical Ventilator 100 09/11/17 13:03 118 21 100 09/11/17 13:00 98.5 117 22 120/93 72 Mechanical Ventilator 100 98.5 09/11/17 12:11 111 09/11/17 12:00 119 21 79/22 80 Mechanical Ventilator 100 09/11/17 11:00 114 21 70/33 83 Mechanical Ventilator 100 09/11/17 10:52 122 18 100 09/11/17 10:32 100 Labs: Labs Test 09/09/17 10:43 09/09/17 18:45 09/09/17 19:24 09/10/17 04:26 Sodium Level 134 MMOL/L (136-145) 130 MMOL/L (136-145) Potassium Level 5.4 MMOL/L (3.5-5.1) 6.2 MMOL/L (3.5-5.1) Chloride Level 97 MMOL/L (98-107) 94 MMOL/L (98-107) Carbon Dioxide Level 34 MMOL/L (21-32) 33 MMOL/L (21-32) Anion Gap 3 mmol/L (5-15) 3 mmol/L (5-15) Blood Urea Nitrogen 31 mg/dL (7-18) 31 mg/dL (7-18) Creatinine 0.9 MG/DL (0.55-1.30) 1.0 MG/DL (0.55-1.30) Estimat Glomerular Filtration Rate mL/min (>60) mL/min (>60) Glucose Level 120 MG/DL (74-106) 141 MG/DL (74-106) Calcium Level 8.3 MG/DL (8.5-10.1) 8.9 MG/DL (8.5-10.1) Total Bilirubin 0.2 MG/DL (0.2-1.0) 0.3 MG/DL (0.2-1.0) Aspartate Amino Transf (AST/SGOT) 57 U/L (15-37) 86 U/L (15-37) Alanine Aminotransferase (ALT/SGPT) 15 U/L (12-78) 21 U/L (12-78) Alkaline Phosphatase 92 U/L (46-116) 113 U/L (46-116) Total Protein 7.3 G/DL (6.4-8.2) 8.8 G/DL (6.4-8.2) Albumin 2.4 G/DL (3.4-5.0) 2.8 G/DL (3.4-5.0) Globulin 4.9 g/dL 6.0 g/dL Albumin/Globulin Ratio 0.5 (1.0-2.7) 0.5 (1.0-2.7) White Blood Count 12.7 K/UL (4.8-10.8) Red Blood Count 3.96 M/UL (4.20-5.40) Hemoglobin 11.0 G/DL (12.0-16.0) Hematocrit 35.1 % (37.0-47.0) Mean Corpuscular Volume 88 FL (80-99) Mean Corpuscular Hemoglobin 27.7 PG (27.0-31.0) Mean Corpuscular Hemoglobin Concent 31.3 G/DL (32.0-36.0) Red Cell Distribution Width 12.9 % (11.6-14.8) Platelet Count 261 K/UL (150-450) Mean Platelet Volume 7.7 FL (6.5-10.1) Neutrophils (%) (Auto) 85.4 % (45.0-75.0) Lymphocytes (%) (Auto) 4.9 % (20.0-45.0) Monocytes (%) (Auto) 7.6 % (1.0-10.0) Eosinophils (%) (Auto) 0.1 % (0.0-3.0) Basophils (%) (Auto) 2.0 % (0.0-2.0) Prothrombin Time 11.0 SEC (9.30-11.50) 9.9 SEC (9.30-11.50) Prothromb Time International Ratio 1.1 (0.9-1.1) 0.9 (0.9-1.1) Activated Partial Thromboplast Time 30 SEC (23-33) 39 SEC (23-33) Troponin I 5.083 ng/mL (0.000-0.056) Pro-B-Type Natriuretic Peptide 2372 pg/mL (0-125) Urine Color Yellow Urine Appearance Cloudy Urine pH 5 (4.5-8.0) Urine Specific [place] 1.020 (1.005-1.035) Urine Protein 3+ (NEGATIVE) Urine Glucose (UA) Negative (NEGATIVE) Urine Ketones Negative (NEGATIVE) Urine Occult Blood 2+ (NEGATIVE) Urine Nitrite Negative (NEGATIVE) Urine Bilirubin Negative (NEGATIVE) Urine Urobilinogen Normal MG/DL (0.0-1.0) Urine Leukocyte Esterase Negative (NEGATIVE) Urine RBC 0-2 /HPF (0 - 2) Urine WBC 0-2 /HPF (0 - 2) Urine Squamous Epithelial Cells Few /LPF (NONE/OCC) Urine Amorphous Sediment Many /LPF (NONE) Urine Bacteria Moderate /HPF (NONE) Test 09/10/17 05:40 09/10/17 09:00 09/10/17 12:00 09/11/17 05:00 White Blood Count 21.3 K/UL (4.8-10.8) 22.5 K/UL (4.8-10.8) Red Blood Count 3.56 M/UL (4.20-5.40) 2.67 M/UL (4.20-5.40) Hemoglobin 9.9 G/DL (12.0-16.0) 7.8 G/DL (12.0-16.0) Hematocrit 32.7 % (37.0-47.0) 23.6 % (37.0-47.0) Mean Corpuscular Volume 92 FL (80-99) 89 FL (80-99) Mean Corpuscular Hemoglobin 27.8 PG (27.0-31.0) 29.2 PG (27.0-31.0) Mean Corpuscular Hemoglobin Concent 30.3 G/DL (32.0-36.0) 32.9 G/DL (32.0-36.0) Red Cell Distribution Width 13.4 % (11.6-14.8) 12.7 % (11.6-14.8) Platelet Count 271 K/UL (150-450) 175 K/UL (150-450) Mean Platelet Volume 6.5 FL (6.5-10.1) 7.3 FL (6.5-10.1) Neutrophils (%) (Auto) % (45.0-75.0) % (45.0-75.0) Lymphocytes (%) (Auto) % (20.0-45.0) % (20.0-45.0) Monocytes (%) (Auto) % (1.0-10.0) % (1.0-10.0) Eosinophils (%) (Auto) % (0.0-3.0) % (0.0-3.0) Basophils (%) (Auto) % (0.0-2.0) % (0.0-2.0) Differential Total Cells Counted 100 100 Neutrophils % (Manual) 81 % (45-75) 50 % (45-75) Lymphocytes % (Manual) 3 % (20-45) 7 % (20-45) Monocytes % (Manual) 9 % (1-10) 2 % (1-10) Eosinophils % (Manual) 0 % (0-3) 0 % (0-3) Basophils % (Manual) 0 % (0-2) 0 % (0-2) Band Neutrophils 7 % (0-8) 38 % (0-8) Platelet Estimate Adequate Adequate Platelet Morphology Normal Normal Stomatocytes 1+ Sodium Level 135 MMOL/L (136-145) 137 MMOL/L (136-145) Potassium Level 5.5 MMOL/L (3.5-5.1) 4.2 MMOL/L (3.5-5.1) Chloride Level 100 MMOL/L (98-107) 105 MMOL/L (98-107) Carbon Dioxide Level 34 MMOL/L (21-32) 22 MMOL/L (21-32) Anion Gap 1 mmol/L (5-15) 10 mmol/L (5-15) Blood Urea Nitrogen 26 mg/dL (7-18) 38 mg/dL (7-18) Creatinine 1.0 MG/DL (0.55-1.30) 1.8 MG/DL (0.55-1.30) Estimat Glomerular Filtration Rate mL/min (>60) mL/min (>60) Glucose Level 179 MG/DL (74-106) 97 MG/DL (74-106) Calcium Level 8.3 MG/DL (8.5-10.1) 7.5 MG/DL (8.5-10.1) Troponin I 3.259 ng/mL (0.000-0.056) 2.974 ng/mL (0.000-0.056) 1.369 ng/mL (0.000-0.056) Arterial Blood pH 7.320 (7.350-7.450) Arterial Blood Partial Pressure CO2 53.6 mmHg (35.0-45.0) Arterial Blood Partial Pressure O2 72.6 mmHg (75.0-100.0) Arterial Blood HCO3 27.5 mmol/L (22.0-26.0) Arterial Blood Oxygen Saturation 94.0 % (92.0-98.0) Arterial Blood Base Excess 1.0 Talha Test Positive Prothrombin Time 10.3 SEC (9.30-11.50) 10.7 SEC (9.30-11.50) Prothromb Time International Ratio 1.0 (0.9-1.1) 1.0 (0.9-1.1) Activated Partial Thromboplast Time 71 SEC (23-33) 79 SEC (23-33) Metamyelocytes % 3 % (0-0) Red Blood Cell Morphology Normal Magnesium Level 1.7 MG/DL (1.8-2.4) Total Bilirubin 0.2 MG/DL (0.2-1.0) Aspartate Amino Transf (AST/SGOT) 67 U/L (15-37) Alanine Aminotransferase (ALT/SGPT) 17 U/L (12-78) Alkaline Phosphatase 68 U/L (46-116) Pro-B-Type Natriuretic Peptide 12749 pg/mL (0-125) Total Protein 6.2 G/DL (6.4-8.2) Albumin 1.7 G/DL (3.4-5.0) Globulin 4.5 g/dL Albumin/Globulin Ratio 0.4 (1.0-2.7) Triglycerides Level 83 MG/DL (30-150) Cholesterol Level 108 MG/DL (< 200) LDL Cholesterol 59 mg/dL (<100) HDL Cholesterol 42 MG/DL (40-60) Cholesterol/HDL Ratio 2.6 (3.3-4.4) Test 09/11/17 11:10 09/12/17 05:00 Arterial Blood pH 7.359 (7.350-7.450) Arterial Blood Partial Pressure CO2 36.1 mmHg (35.0-45.0) Arterial Blood Partial Pressure O2 45.8 mmHg (75.0-100.0) Arterial Blood HCO3 19.9 mmol/L (22.0-26.0) Arterial Blood Oxygen Saturation 81.5 % (92.0-98.0) Arterial Blood Base Excess -5.0 Talha Test Positive White Blood Count 18.9 K/UL (4.8-10.8) Red Blood Count 3.45 M/UL (4.20-5.40) Hemoglobin 9.7 G/DL (12.0-16.0) Hematocrit 30.2 % (37.0-47.0) Mean Corpuscular Volume 87 FL (80-99) Mean Corpuscular Hemoglobin 28.2 PG (27.0-31.0) Mean Corpuscular Hemoglobin Concent 32.3 G/DL (32.0-36.0) Red Cell Distribution Width 12.9 % (11.6-14.8) Platelet Count 182 K/UL (150-450) Mean Platelet Volume 7.7 FL (6.5-10.1) Neutrophils (%) (Auto) % (45.0-75.0) Lymphocytes (%) (Auto) % (20.0-45.0) Monocytes (%) (Auto) % (1.0-10.0) Eosinophils (%) (Auto) % (0.0-3.0) Basophils (%) (Auto) % (0.0-2.0) Differential Total Cells Counted 100 Neutrophils % (Manual) 76 % (45-75) Lymphocytes % (Manual) 6 % (20-45) Monocytes % (Manual) 6 % (1-10) Eosinophils % (Manual) 0 % (0-3) Basophils % (Manual) 0 % (0-2) Band Neutrophils 12 % (0-8) Platelet Estimate Adequate Platelet Morphology Normal Hypochromasia 1+ Sodium Level 139 MMOL/L (136-145) Potassium Level 4.8 MMOL/L (3.5-5.1) Chloride Level 106 MMOL/L (98-107) Carbon Dioxide Level 21 MMOL/L (21-32) Anion Gap 12 mmol/L (5-15) Blood Urea Nitrogen 47 mg/dL (7-18) Creatinine 2.6 MG/DL (0.55-1.30) Estimat Glomerular Filtration Rate mL/min (>60) Glucose Level 87 MG/DL (74-106) Calcium Level 7.6 MG/DL (8.5-10.1) Magnesium Level 1.7 MG/DL (1.8-2.4) Total Bilirubin 0.4 MG/DL (0.2-1.0) Aspartate Amino Transf (AST/SGOT) 71 U/L (15-37) Alanine Aminotransferase (ALT/SGPT) 15 U/L (12-78) Alkaline Phosphatase 79 U/L (46-116) Total Protein 6.2 G/DL (6.4-8.2) Albumin 1.6 G/DL (3.4-5.0) Globulin 4.6 g/dL Albumin/Globulin Ratio 0.3 (1.0-2.7) Objective: WDWN female NAD trach in place reduced breath sounds L>>R bilaterally with some rhonchi S1S2 iRRR without MRG NABS nontender no HSM; GT no distention no CC; mild edema nonfocal withdrawn Micro: Microbiology Date/Time Source Procedure Growth Status 09/09/17 19:24 Nasal Nares MRSA Culture - Final NO METHICILLIN RESISTANT STAPH AUREUS... Complete 09/09/17 19:24 Urine,Clean Catch Urine Culture - Final NO GROWTH AFTER 48 HOURS Complete 09/09/17 19:24 Rectum VRE Culture - Final Enterococcus Faecalis - Vre Complete Accucheck: 182 MARCY MAJOR Sep 12, 2017 10:19
--- NOTE | 2017-09-12 11:25 | Infectious Diseases Prog Note ---
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 Acute renal failure P: Continue Vancomycin & meropenem Will f/u cultures Subjective ROS Limited/Unobtainable: Yes Constitutional: Reports: fever, other - Blbk=958.1 Allergies: Coded Allergies: PENICILLINS (Verified Allergy, Unknown, 07/31/16) Objective Vital Signs Last 24 Hour Vital Signs Date Time Temp Pulse Resp B/P (MAP) Pulse Ox O2 Delivery O2 Flow Rate FiO2 09/12/17 10:00 99.4 92 21 112/32 99 Mechanical Ventilator 100 99.4 09/12/17 09:28 96 21 100 09/12/17 09:00 99 101/33 09/12/17 09:00 100 09/12/17 09:00 94 22 112/32 97 Mechanical Ventilator 100 09/12/17 08:41 101 09/12/17 08:00 100 09/12/17 08:00 100.1 99 23 101/33 97 Mechanical Ventilator 100 100.1 09/12/17 07:25 112 23 100 09/12/17 07:00 97 18 110/35 96 Mechanical Ventilator 100 09/12/17 06:00 91 22 96/33 96 Mechanical Ventilator 100 09/12/17 05:19 89 22 100 09/12/17 05:00 85 22 101/33 93 Mechanical Ventilator 100 09/12/17 04:00 100 09/12/17 04:00 98.7 90 19 100/53 95 Mechanical Ventilator 100 98.7 09/12/17 04:00 90 09/12/17 03:30 121 20 100 09/12/17 03:00 88 16 138/46 96 Mechanical Ventilator 100 09/12/17 02:00 126 22 117/42 94 Mechanical Ventilator 100 09/12/17 01:30 125 21 100 09/12/17 01:00 156 21 95/40 97 Mechanical Ventilator 100 09/12/17 00:30 125 21 103/59 96 Mechanical Ventilator 100 09/12/17 00:28 138 09/12/17 00:00 100 09/12/17 00:00 98.9 89 21 103/48 96 Mechanical Ventilator 100 98.9 09/12/17 00:00 89 09/11/17 23:30 80 20 100 09/11/17 23:00 89 21 104/49 95 Mechanical Ventilator 100 09/11/17 22:00 86 21 110/44 96 Mechanical Ventilator 100 09/11/17 21:19 84 21 100 09/11/17 21:01 88 112/46 09/11/17 21:00 87 19 97/41 93 Mechanical Ventilator 100 09/11/17 21:00 112/46 09/11/17 20:00 99 09/11/17 20:00 100 09/11/17 20:00 98.8 99 20 118/51 93 Mechanical Ventilator 100 98.8 09/11/17 19:30 102 21 88/48 89 Mechanical Ventilator 100 09/11/17 19:30 98 20 100 09/11/17 18:00 104 22 92/45 87 Mechanical Ventilator 100 09/11/17 17:00 110 21 94/62 79 Mechanical Ventilator 100 09/11/17 16:41 115 24 100 09/11/17 16:00 99.0 118 16 84/29 77 Mechanical Ventilator 100 99.0 09/11/17 16:00 100 09/11/17 15:33 112 09/11/17 15:00 118 23 79/22 79 Mechanical Ventilator 100 09/11/17 14:53 114 23 100 09/11/17 14:00 121 22 84/43 75 Mechanical Ventilator 100 09/11/17 13:03 118 21 100 09/11/17 13:00 98.5 117 22 120/93 72 Mechanical Ventilator 100 98.5 09/11/17 12:11 111 09/11/17 12:00 119 21 79/22 80 Mechanical Ventilator 100 Height (Feet): 4 Height (Inches): 10.00 Weight (Pounds): 116 HEENT: status post trach, other - induration in parotid areas Respiratory/Chest: rhonchi - bilaterally, other - on ventilator Cardiovascular: normal rate, other - R arm PICC line Abdomen: soft, non tender, other - GT feeding Extremities: no edema Neurologic/Psychiatric: other - opens eyes Microbiology Date/Time Source Procedure Growth Status 09/09/17 19:24 Nasal Nares MRSA Culture - Final NO METHICILLIN RESISTANT STAPH AUREUS... Complete 09/09/17 19:24 Urine,Clean Catch Urine Culture - Final NO GROWTH AFTER 48 HOURS Complete 09/09/17 19:24 Rectum VRE Culture - Final Enterococcus Faecalis - Vre Complete Laboratory Tests Test 09/12/17 05:00 White Blood Count 18.9 K/UL (4.8-10.8) H Red Blood Count 3.45 M/UL (4.20-5.40) L Hemoglobin 9.7 G/DL (12.0-16.0) L Hematocrit 30.2 % (37.0-47.0) L Mean Corpuscular Volume 87 FL (80-99) Mean Corpuscular Hemoglobin 28.2 PG (27.0-31.0) Mean Corpuscular Hemoglobin Concent 32.3 G/DL (32.0-36.0) Red Cell Distribution Width 12.9 % (11.6-14.8) Platelet Count 182 K/UL (150-450) Mean Platelet Volume 7.7 FL (6.5-10.1) Neutrophils (%) (Auto) % (45.0-75.0) Lymphocytes (%) (Auto) % (20.0-45.0) Monocytes (%) (Auto) % (1.0-10.0) Eosinophils (%) (Auto) % (0.0-3.0) Basophils (%) (Auto) % (0.0-2.0) Differential Total Cells Counted 100 Neutrophils % (Manual) 76 % (45-75) H Lymphocytes % (Manual) 6 % (20-45) L Monocytes % (Manual) 6 % (1-10) Eosinophils % (Manual) 0 % (0-3) Basophils % (Manual) 0 % (0-2) Band Neutrophils 12 % (0-8) H Platelet Estimate Adequate Platelet Morphology Normal Hypochromasia 1+ Sodium Level 139 MMOL/L (136-145) Potassium Level 4.8 MMOL/L (3.5-5.1) Chloride Level 106 MMOL/L (98-107) Carbon Dioxide Level 21 MMOL/L (21-32) Anion Gap 12 mmol/L (5-15) Blood Urea Nitrogen 47 mg/dL (7-18) H Creatinine 2.6 MG/DL (0.55-1.30) H Estimat Glomerular Filtration Rate mL/min (>60) Glucose Level 87 MG/DL (74-106) Calcium Level 7.6 MG/DL (8.5-10.1) L Magnesium Level 1.7 MG/DL (1.8-2.4) L Total Bilirubin 0.4 MG/DL (0.2-1.0) Aspartate Amino Transf (AST/SGOT) 71 U/L (15-37) H Alanine Aminotransferase (ALT/SGPT) 15 U/L (12-78) Alkaline Phosphatase 79 U/L (46-116) Total Protein 6.2 G/DL (6.4-8.2) L Albumin 1.6 G/DL (3.4-5.0) L Globulin 4.6 g/dL Albumin/Globulin Ratio 0.3 (1.0-2.7) L Current Medications Medications (Trade) Dose Ordered Sig/Josiah Route PRN Reason Start Time Stop Time Status Last Admin Dose Admin Acetaminophen (Tylenol) 650 mg Q4H PRN GT Mild Pain/Temp > 100.5 09/11/17 09:00 10/11/17 08:59 09/11/17 09:11 Aspirin (ASA) 81 mg DAILY NG 09/10/17 11:00 10/10/17 10:59 09/10/17 11:58 Chlorhexidine Gluconate (Cathy-Hex 2%) 1 applic DAILY@2000 TOPIC 09/11/17 20:00 10/11/17 19:59 09/11/17 19:45 Digoxin (Lanoxin) 0.125 mg DAILY GT 09/10/17 12:00 10/10/17 11:59 09/12/17 09:00 Levalbuterol HCl (Xopenex) 0.625 mg Q4H PRN HHN Shortness of Breath 09/10/17 08:30 09/15/17 08:29 Levetiracetam (Keppra) 500 mg Q12HR GT 09/10/17 12:00 10/10/17 11:59 09/12/17 09:00 Levothyroxine Sodium (Synthroid) 150 mcg ACBREAKFAST GT 09/13/17 06:30 10/13/17 06:29 Meropenem 500 mg/ Sodium Chloride 100 ml @ 200 mls/hr Q12HR@0030,1230 IVPB 09/12/17 12:30 09/17/17 12:29 Metoprolol Tartrate (Lopressor) 50 mg Q12HR GT 09/12/17 21:00 10/12/17 20:59 Midodrine (Pro-Amatine) 10 mg THREE TIMES A DAY GT 09/10/17 13:00 10/10/17 12:59 09/12/17 09:00 Pantoprazole (Protonix) 40 mg DAILY IVP 09/10/17 11:00 10/10/17 10:59 09/12/17 09:00 Vancomycin HCl (Vanco rx to dose) 1 ea DAILY PRN MISC Per rx protocol 09/10/17 08:30 10/10/17 08:29 Vitamin A/Vitamin D (A & D Oint) 1 applic BID TOPIC 09/10/17 12:00 10/10/17 11:59 09/12/17 09:01 JENNIFER MCKEE Sep 12, 2017 11:25
[2017-09-12] MEDS ORDERED: Tubing Blood Filter IV ONE (11:33)
[2017-09-12] MEDS ORDERED: NS 500ML ONE (11:33)
[2017-09-12] MEDS ORDERED: NS 275ml ONE (11:33)
[2017-09-12] MEDS ORDERED: Tubing IV Secondary IV ONE ×2 (11:33→11:42)
[2017-09-12] MEDS: Meropenem 500 MG in NS 100 ML IVPB SCH (12:46)
--- NOTE | 2017-09-12 14:47 | Diagnostic Imaging Report ---
Indication:Elevated Bun and Creatinine. Technique: Grayscale and duplex Doppler imaging of the kidneys performed. Comparison: None Findings: The right kidney appears normal. The left kidney is poorly imaged. Right kidney is 11.8 cm. Left kidney is 10 cm. Small bilateral renal cysts are present all measuring less than 1 cm. There is no hydronephrosis. Carey catheter noted. Small left pleural effusion is present. IMPRESSION: No acute findings. Left kidney not imaged well. Small bilateral renal cysts
[2017-09-12] MEDS: Acetaminophen 650mg/20.3ml GT PRN (15:37)
[2017-09-12] MEDS: dilTIAZem HCl 25mg/5ml Inj IVP ONE ×2 (16:20→16:30)
[2017-09-12] MEDS ORDERED: Sodium Chloride 500ML 500 ML IV ONE (17:00)
[2017-09-12] MEDS: Dyna-Hex 2% Top Sol 2oz TOPIC SCH (21:00)
[2017-09-12] MEDS: Metoprolol 25mg tab GT SCH (21:01)
[2017-09-13] VITALS (24 sets, daily range): BP systolic 74–124; BP diastolic 15–66
[2017-09-13] MEDS: Meropenem 500 MG in NS 100 ML IVPB SCH (02:54)
--- NOTE | 2017-09-13 03:45 | Progress Note ---
DATE: 09/12/2017 CARDIOLOGY PROGRESS NOTE SUBJECTIVE: The patient remains in the intensive care unit in critical condition with guarded prognosis. Blood pressure remains tenuous. She is on midodrine as well as a Levophed drip. She has developed rapid atrial fibrillation today again. She is on oral beta-blockers (by G-tube). OBJECTIVE: VITAL SIGNS: Blood pressure 95/60, heart rate 130, respiratory rate 18 to 24, and afebrile. LUNGS: Bilateral rhonchi. Rales on the right. HEART: Irregularly irregular rhythm. Rapid S1 and S2. ABDOMEN: Soft. G-tube intact. Thick trach secretions. EXTREMITIES: Trace dependent edema. LABORATORY DATA: Magnesium 1.7, potassium 4.8, BUN 47, creatinine 2.6. Albumin 1.6. Pro-natriuretic peptide yesterday 13,000. Troponin yesterday 1.369. IMPRESSION: 1. Acute myocardial infarction. 2. Acute on chronic diastolic congestive heart failure. 3. Paroxysmal atrial fibrillation now with rapid ventricular response. 4. Hypomagnesemia. 5. Severe protein-calorie malnutrition. 6. 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 7. Respiratory failure with tracheostomy. 8. Sepsis with shock and continued leukocytosis, likely due to pneumonia. PLAN: 1. Taper off pressors as able. 2. Continue antibiotics per Infectious Disease databases software consultant. 3. Ventilator support. 4. Continue midodrine by feeding tube. 5. Beta-diego as tolerated by blood pressure parameters. 6. IV diltiazem for rate control. 7. Hold diuresis until blood pressure more stable. 8. IV magnesium replacement. 9. Protein supplement by feeding tube. Chi Bhatti M.D. DR: Chele JOB#: [id number] CC:
[2017-09-13 06:25] LABS: HEMATOCRIT 30.3 % (37.0-47.0); HEMOGLOBIN 9.9 G/DL (12.0-16.0); MEAN CORPUSCULAR VOLUME 88 FL (80-99); PLATELET COUNT 191 K/UL (150-450); RED BLOOD COUNT 3.44 M/UL (4.20-5.40); RED CELL DISTRIBUTION WIDTH 12.9 % (11.6-14.8); WHITE BLOOD COUNT 16.4 K/UL (4.8-10.8)
[2017-09-13 06:55] LABS: ALANINE AMINOTRANSFERASE 17 U/L (12-78); ALBUMIN 1.9 G/DL (3.4-5.0); ALBUMIN/GLOBULIN RATIO 0.4 (1.0-2.7); ALKALINE PHOSPHATASE 76 U/L (46-116); ANION GAP 12 mmol/L (5-15); ASPARTATE AMINO TRANSFERASE 52 U/L (15-37); BILIRUBIN,TOTAL 0.4 MG/DL (0.2-1.0); BLOOD UREA NITROGEN 64 mg/dL (7-18); CARBON DIOXIDE 21 MMOL/L (21-32); CHLORIDE 107 MMOL/L (98-107); POTASSIUM 4.7 MMOL/L (3.5-5.1); SODIUM 140 MMOL/L (136-145)
--- NOTE | 2017-09-13 08:47 | General Progress Note ---
Assessment/Plan Problem List: (1) Sepsis ICD Codes: A41.9 - Sepsis, unspecified organism SNOMED: 98636538 (2) Lung metastases ICD Codes: C78.00 - Secondary malignant neoplasm of unspecified lung SNOMED: 71927147 (3) Tracheostomy dependence ICD Codes: Z93.0 - Tracheostomy status SNOMED: 413084471, 009811606 (4) NSTEMI (non-ST elevated myocardial infarction) ICD Codes: I21.4 - Non-ST elevation (NSTEMI) myocardial infarction SNOMED: 808094316 (5) Hypoxia ICD Codes: R09.02 - Hypoxemia SNOMED: 568302998 (6) Shortness of breath ICD Codes: R06.02 - Shortness of breath SNOMED: 098903191 (7) Tongue malignant neoplasm ICD Codes: C02.9 - Malignant neoplasm of tongue, unspecified SNOMED: 179837309 (8) Respiratory failure ICD Codes: J96.90 - Respiratory failure, unspecified, unspecified whether with hypoxia or hypercapnia SNOMED: 440082898 Status: deteriorating Assessment/Plan iv abx follow up cultures vent support titrate fio2 monitor cxr ivf and albumin as needed renal eval resp rx feeds stress ulcer prophylaxis d/w son critical and guarded poor prognosis Subjective ROS Limited/Unobtainable: Yes Constitutional: Reports: malaise, weakness HEENT: Reports: no symptoms Cardiovascular: Reports: no symptoms Respiratory: Reports: no symptoms Gastrointestinal/Abdominal: Reports: difficulty swallowing Genitourinary: Reports: no symptoms Neurologic/Psychiatric: Reports: no symptoms Endocrine: Reports: no symptoms Hematologic/Lymphatic: Reports: anemia Allergies: Coded Allergies: PENICILLINS (Verified Allergy, Unknown, 07/31/16) All Systems: reviewed and negative except above Subjective hypotensive briefly yesterday while cleaning. btter after ivf and albumin. remains on 100%fio2. Objective Last 24 Hour Vital Signs Date Time Temp Pulse Resp B/P (MAP) Pulse Ox O2 Delivery O2 Flow Rate FiO2 09/13/17 08:00 100 09/13/17 07:06 98 23 100 09/13/17 07:00 104 20 124/24 94 Mechanical Ventilator 100 09/13/17 06:00 98 20 101/30 94 Mechanical Ventilator 100 09/13/17 05:21 105 20 100 09/13/17 05:00 101 20 99/27 94 Mechanical Ventilator 100 09/13/17 04:00 100 09/13/17 04:00 99.4 109 16 107/40 90 Mechanical Ventilator 100 99.4 09/13/17 04:00 109 09/13/17 03:10 95 20 100 09/13/17 03:00 96 20 90/51 92 Mechanical Ventilator 100 09/13/17 02:00 90 21 110/35 93 Mechanical Ventilator 100 09/13/17 01:20 85 22 100 09/13/17 01:00 81 20 102/61 92 Mechanical Ventilator 100 09/13/17 00:00 99.2 101 21 121/48 94 Mechanical Ventilator 100 99.2 09/13/17 00:00 100 09/13/17 00:00 101 09/12/17 23:11 87 20 100 09/12/17 23:00 74 21 111/32 93 Mechanical Ventilator 100 09/12/17 22:00 107 21 130/31 94 Mechanical Ventilator 100 09/12/17 21:15 108 23 100 09/12/17 21:01 116 100/49 09/12/17 21:00 94 21 117/30 94 Mechanical Ventilator 100 09/12/17 20:00 100 09/12/17 20:00 99.6 87 21 113/34 94 Mechanical Ventilator 100 99.6 09/12/17 20:00 87 09/12/17 19:00 126 20 123/30 94 Mechanical Ventilator 100 09/12/17 19:00 120/78 09/12/17 18:55 127 22 100 09/12/17 18:30 127 20 124/30 94 Mechanical Ventilator 100 09/12/17 18:00 142/30 09/12/17 18:00 123 18 142/30 96 Mechanical Ventilator 100 09/12/17 17:45 118 20 142/30 93 Mechanical Ventilator 100 09/12/17 17:45 142/30 09/12/17 17:30 133/33 09/12/17 17:30 123 20 133/33 96 Mechanical Ventilator 100 09/12/17 17:15 136/91 09/12/17 17:15 136 20 136/91 95 Mechanical Ventilator 100 09/12/17 17:13 125 19 100 09/12/17 17:12 100.0 120 21 131/35 95 100.0 09/12/17 17:03 109/37 09/12/17 16:57 44/28 09/12/17 16:55 136 20 44/28 98 Mechanical Ventilator 100 09/12/17 16:30 135 47/30 09/12/17 16:30 135 47/30 09/12/17 16:12 139 09/12/17 16:00 100 09/12/17 15:29 151 21 100 09/12/17 15:00 127 23 104/46 96 Mechanical Ventilator 100 09/12/17 14:00 109 25 108/45 96 Mechanical Ventilator 100 09/12/17 13:27 97 27 100 09/12/17 13:00 100.0 97 23 108/45 96 Mechanical Ventilator 100 100.0 09/12/17 12:00 100 09/12/17 12:00 97 22 95/27 97 Mechanical Ventilator 100 09/12/17 12:00 96 09/12/17 11:29 97 25 100 09/12/17 11:00 96 20 89/35 97 Mechanical Ventilator 100 09/12/17 10:00 99.4 92 21 112/32 99 Mechanical Ventilator 100 99.4 09/12/17 09:28 96 21 100 09/12/17 09:00 99 101/33 09/12/17 09:00 100 09/12/17 09:00 94 22 112/32 97 Mechanical Ventilator 100 Intake and Output 09/12/17 09/13/17 19:00 07:00 Intake Total 1002.5 ml 137.5 ml Output Total 125 ml 110 ml Balance 877.5 ml 27.5 ml Free Water 60 ml IV Total 782.5 ml 137.5 ml Tube Feeding 160 ml Output Urine Total 85 ml 110 ml Stool Total 40 ml # Bowel Movements 3 3 Laboratory Tests 09/13/17 05:00: White Blood Count 16.4H, Red Blood Count 3.44L, Hemoglobin 9.9L, Hematocrit 30.3L, Mean Corpuscular Volume 88, Mean Corpuscular Hemoglobin 28.9, Mean Corpuscular Hemoglobin Concent 32.8, Red Cell Distribution Width 12.9, Platelet Count 191, Mean Platelet Volume 7.2, Neutrophils (%) (Auto) , Lymphocytes (%) ( Auto) , Monocytes (%) (Auto) , Eosinophils (%) (Auto) , Basophils (%) (Auto) , Differential Total Cells Counted 100, Neutrophils % (Manual) 78H, Lymphocytes % (Manual) 4L, Monocytes % (Manual) 7, Eosinophils % (Manual) 1, Basophils % ( Manual) 0, Band Neutrophils 10H, Platelet Estimate Adequate, Platelet Morphology Normal, Sodium Level 140, Potassium Level 4.7, Chloride Level 107, Carbon Dioxide Level 21, Anion Gap 12, Blood Urea Nitrogen 64H, Creatinine 3.0H , Estimat Glomerular Filtration Rate , Glucose Level 88, Calcium Level 8.0L, Total Bilirubin 0.4, Aspartate Amino Transf (AST/SGOT) 52H, Alanine Aminotransferase (ALT/SGPT) 17, Alkaline Phosphatase 76, Troponin I 0.380H, Total Protein 6.4, Albumin 1.9L, Globulin 4.5, Albumin/Globulin Ratio 0.4L Height (Feet): 4 Height (Inches): 10.00 Weight (Pounds): 117 General Appearance: WD/WN, alert Neck: supple Cardiovascular: normal rate, regular rhythm Respiratory/Chest: chest wall non-tender, lungs clear, normal breath sounds Abdomen: normal bowel sounds, non tender, soft, no organomegaly Neurologic: disoriented CHRISTINA HAMMOND Sep 13, 2017 08:47
[2017-09-13] MEDS: Metoprolol 25mg tab GT SCH ×2 (09:00→20:37)
[2017-09-13] MEDS: levETIRAcetam 500mg/5ml Liquid GT SCH ×2 (09:55→20:42)
[2017-09-13] MEDS: Digoxin Elixir 0.125mg GT SCH (09:55)
[2017-09-13] MEDS: Pantoprazole Inj IVP SCH (09:55)
[2017-09-13] MEDS: Aspirin Baby 81mg NG SCH (09:55)
[2017-09-13] MEDS: Vitamin A&D Oint 2oz Tube TOPIC SCH ×2 (09:55→18:00)
[2017-09-13] MEDS: Midodrine 10mg tab GT SCH ×3 (09:55→18:59)
--- NOTE | 2017-09-13 12:26 | Infectious Diseases Prog Note ---
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 Acute renal failure P: Continue Vancomycin & meropenem Will f/u cultures Subjective ROS Limited/Unobtainable: Yes Constitutional: Reports: fever, other - Yzc=376.4 Allergies: Coded Allergies: PENICILLINS (Verified Allergy, Unknown, 07/31/16) Objective Vital Signs Last 24 Hour Vital Signs Date Time Temp Pulse Resp B/P (MAP) Pulse Ox O2 Delivery O2 Flow Rate FiO2 09/13/17 11:00 100.4 101 20 89/66 95 Mechanical Ventilator 97 100.4 09/13/17 10:59 102 22 100 09/13/17 10:00 104 21 104/17 95 Mechanical Ventilator 97 09/13/17 09:55 104 09/13/17 09:00 104 121/39 09/13/17 09:00 104 21 74/35 94 Mechanical Ventilator 97 09/13/17 08:56 106 19 100 09/13/17 08:00 100 09/13/17 08:00 100.4 104 21 119/31 94 Mechanical Ventilator 100 100.4 09/13/17 08:00 100 09/13/17 07:06 98 23 100 09/13/17 07:00 104 20 124/24 94 Mechanical Ventilator 100 09/13/17 06:00 98 20 101/30 94 Mechanical Ventilator 100 09/13/17 05:21 105 20 100 09/13/17 05:00 101 20 99/27 94 Mechanical Ventilator 100 09/13/17 04:00 100 09/13/17 04:00 99.4 109 16 107/40 90 Mechanical Ventilator 100 99.4 09/13/17 04:00 109 09/13/17 03:10 95 20 100 09/13/17 03:00 96 20 90/51 92 Mechanical Ventilator 100 09/13/17 02:00 90 21 110/35 93 Mechanical Ventilator 100 09/13/17 01:20 85 22 100 09/13/17 01:00 81 20 102/61 92 Mechanical Ventilator 100 09/13/17 00:00 99.2 101 21 121/48 94 Mechanical Ventilator 100 99.2 09/13/17 00:00 100 09/13/17 00:00 101 09/12/17 23:11 87 20 100 09/12/17 23:00 74 21 111/32 93 Mechanical Ventilator 100 09/12/17 22:00 107 21 130/31 94 Mechanical Ventilator 100 09/12/17 21:15 108 23 100 09/12/17 21:01 116 100/49 09/12/17 21:00 94 21 117/30 94 Mechanical Ventilator 100 09/12/17 20:00 100 09/12/17 20:00 99.6 87 21 113/34 94 Mechanical Ventilator 100 99.6 09/12/17 20:00 87 09/12/17 19:00 126 20 123/30 94 Mechanical Ventilator 100 09/12/17 19:00 120/78 09/12/17 18:55 127 22 100 09/12/17 18:30 127 20 124/30 94 Mechanical Ventilator 100 09/12/17 18:00 142/30 09/12/17 18:00 123 18 142/30 96 Mechanical Ventilator 100 09/12/17 17:45 118 20 142/30 93 Mechanical Ventilator 100 09/12/17 17:45 142/30 09/12/17 17:30 133/33 09/12/17 17:30 123 20 133/33 96 Mechanical Ventilator 100 09/12/17 17:15 136/91 09/12/17 17:15 136 20 136/91 95 Mechanical Ventilator 100 09/12/17 17:13 125 19 100 09/12/17 17:12 100.0 120 21 131/35 95 100.0 09/12/17 17:03 109/37 09/12/17 16:57 44/28 09/12/17 16:55 136 20 44/28 98 Mechanical Ventilator 100 09/12/17 16:30 135 47/30 09/12/17 16:30 135 47/30 09/12/17 16:12 139 09/12/17 16:00 100 09/12/17 15:29 151 21 100 09/12/17 15:00 127 23 104/46 96 Mechanical Ventilator 100 09/12/17 14:00 109 25 108/45 96 Mechanical Ventilator 100 09/12/17 13:27 97 27 100 09/12/17 13:00 100.0 97 23 108/45 96 Mechanical Ventilator 100 100.0 Height (Feet): 4 Height (Inches): 10.00 Weight (Pounds): 117 HEENT: status post trach Respiratory/Chest: lungs clear, other - on ventilator Cardiovascular: tachycardia, other - R arm PICC line Abdomen: soft, non tender, other - GT feeding Extremities: no edema Neurologic/Psychiatric: other - sleeping Microbiology Date/Time Source Procedure Growth Status 09/11/17 10:35 Blood Blood Culture - Preliminary NO GROWTH AFTER 24 HOURS Resulted 09/11/17 10:25 Blood Blood Culture - Preliminary NO GROWTH AFTER 24 HOURS Resulted Laboratory Tests Test 09/13/17 05:00 09/13/17 10:00 White Blood Count 16.4 K/UL (4.8-10.8) H Red Blood Count 3.44 M/UL (4.20-5.40) L Hemoglobin 9.9 G/DL (12.0-16.0) L Hematocrit 30.3 % (37.0-47.0) L Mean Corpuscular Volume 88 FL (80-99) Mean Corpuscular Hemoglobin 28.9 PG (27.0-31.0) Mean Corpuscular Hemoglobin Concent 32.8 G/DL (32.0-36.0) Red Cell Distribution Width 12.9 % (11.6-14.8) Platelet Count 191 K/UL (150-450) Mean Platelet Volume 7.2 FL (6.5-10.1) Neutrophils (%) (Auto) % (45.0-75.0) Lymphocytes (%) (Auto) % (20.0-45.0) Monocytes (%) (Auto) % (1.0-10.0) Eosinophils (%) (Auto) % (0.0-3.0) Basophils (%) (Auto) % (0.0-2.0) Differential Total Cells Counted 100 Neutrophils % (Manual) 78 % (45-75) H Lymphocytes % (Manual) 4 % (20-45) L Monocytes % (Manual) 7 % (1-10) Eosinophils % (Manual) 1 % (0-3) Basophils % (Manual) 0 % (0-2) Band Neutrophils 10 % (0-8) H Platelet Estimate Adequate Platelet Morphology Normal Sodium Level 140 MMOL/L (136-145) Potassium Level 4.7 MMOL/L (3.5-5.1) Chloride Level 107 MMOL/L (98-107) Carbon Dioxide Level 21 MMOL/L (21-32) Anion Gap 12 mmol/L (5-15) Blood Urea Nitrogen 64 mg/dL (7-18) H Creatinine 3.0 MG/DL (0.55-1.30) H Estimat Glomerular Filtration Rate mL/min (>60) Glucose Level 88 MG/DL (74-106) Calcium Level 8.0 MG/DL (8.5-10.1) L Total Bilirubin 0.4 MG/DL (0.2-1.0) Aspartate Amino Transf (AST/SGOT) 52 U/L (15-37) H Alanine Aminotransferase (ALT/SGPT) 17 U/L (12-78) Alkaline Phosphatase 76 U/L (46-116) Troponin I 0.380 ng/mL (0.000-0.056) Total Protein 6.4 G/DL (6.4-8.2) Albumin 1.9 G/DL (3.4-5.0) L Globulin 4.5 g/dL Albumin/Globulin Ratio 0.4 (1.0-2.7) L Vancomycin Level Trough 14.0 ug/mL (5.0-12.0) H Current Medications Medications (Trade) Dose Ordered Sig/Josiah Route PRN Reason Start Time Stop Time Status Last Admin Dose Admin Acetaminophen (Tylenol) 650 mg Q4H PRN GT Mild Pain/Temp > 100.5 09/11/17 09:00 10/11/17 08:59 09/12/17 15:37 Aspirin (ASA) 81 mg DAILY NG 09/10/17 11:00 10/10/17 10:59 09/13/17 09:55 Chlorhexidine Gluconate (Cathy-Hex 2%) 1 applic DAILY@2000 TOPIC 09/11/17 20:00 10/11/17 19:59 09/12/17 21:00 Digoxin (Lanoxin) 0.125 mg DAILY GT 09/10/17 12:00 10/10/17 11:59 09/13/17 09:55 Diltiazem HCl 125 mg/Dextrose 125 ml @ 0 mls/hr Q24H IV 09/12/17 16:30 09/13/17 16:29 Levalbuterol HCl (Xopenex) 0.625 mg Q4H PRN HHN Shortness of Breath 09/10/17 08:30 09/15/17 08:29 Levetiracetam (Keppra) 500 mg Q12HR GT 09/10/17 12:00 10/10/17 11:59 09/13/17 09:55 Levothyroxine Sodium (Synthroid) 150 mcg ACBREAKFAST GT 09/13/17 06:30 10/13/17 06:29 09/13/17 06:07 Meropenem 500 mg/ Sodium Chloride 100 ml @ 200 mls/hr Q24H IVPB 09/14/17 03:00 09/19/17 02:59 Metoprolol Tartrate (Lopressor) 50 mg Q12HR GT 09/12/17 21:00 10/12/17 20:59 09/12/17 21:01 Midodrine (Pro-Amatine) 10 mg THREE TIMES A DAY GT 09/10/17 13:00 10/10/17 12:59 09/13/17 09:55 Norepinephrine Bitartrate 4 mg/ Dextrose 250 ml @ 0 mls/hr Q24H IV 09/12/17 17:00 10/12/17 16:59 09/12/17 16:57 Pantoprazole (Protonix) 40 mg DAILY IVP 09/10/17 11:00 10/10/17 10:59 09/13/17 09:55 Vancomycin HCl (Vanco rx to dose) 1 ea DAILY PRN MISC Per rx protocol 09/10/17 08:30 10/10/17 08:29 Vancomycin HCl 500 mg/Sodium Chloride 110 ml @ 110 mls/hr ONCE ONCE IVPB 09/13/17 13:00 09/13/17 13:59 Vitamin A/Vitamin D (A & D Oint) 1 applic BID TOPIC 09/10/17 12:00 10/10/17 11:59 09/13/17 09:55 JENNIFER MCKEE Sep 13, 2017 12:26
--- NOTE | 2017-09-13 12:58 | Diagnostic Imaging Report ---
Indication: Cough Comparison: 09/20/2017 A single view chest radiograph was obtained. Findings: Patchy slightly increased infiltrates demonstrated bilaterally. Differential includes pulmonary edema although heart size is normal. Tracheostomy is present. A pleural-based density in the left lung apex has shown interval resolution. IMPRESSION: Increasing airspace disease bilaterally with asymmetric patchy distribution suggestive of pneumonia. Please correlate clinically.
[2017-09-13] MEDS ORDERED: Vancomycin 500mg in D5W 275ml IVPB ONE (13:00)
[2017-09-13] MEDS ORDERED: Vancomycin 500 MG in NS 110 ML IVPB ONE (13:00)
--- NOTE | 2017-09-13 14:24 | Critical Care Progress Note ---
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 PLAN care noted IV antibiotics respiratory care Ventilatory settings as is and adjust PEEP SNF meds supportive care as is suction and consider bronch for clearance of secretions no wean planned oxygen therapy at max dose and try to reduce prognosis poor advanced directives; called left for son to discuss options d/w Dr. Madrigal medications/laboratory data/nursing notes/ICU care reviewed in detail note reviewed and edited care discussed with RN and RT ICU time spent 40 minutes Critical Care - Subjective Interval Events: care noted overall doing poorly Condition: critical EKG Rhythm: Sinus Rhythm Residuals: minimal Tube Feeding Tolerated: yes I&O: Intake and Output 09/12/17 09/13/17 19:00 07:00 Intake Total 1002.5 ml 137.5 ml Output Total 125 ml 110 ml Balance 877.5 ml 27.5 ml Free Water 60 ml IV Total 782.5 ml 137.5 ml Tube Feeding 160 ml Output Urine Total 85 ml 110 ml Stool Total 40 ml # Bowel Movements 3 3 Critical Care - Objective CXR: persistent infiltrates, left greater than right Last 24 Hour Vital Signs Date Time Temp Pulse Resp B/P (MAP) Pulse Ox O2 Delivery O2 Flow Rate FiO2 09/13/17 12:40 101 21 100 09/13/17 12:00 100 09/13/17 11:00 100.4 101 20 89/66 95 Mechanical Ventilator 97 100.4 09/13/17 10:59 102 22 100 09/13/17 10:00 104 21 104/17 95 Mechanical Ventilator 97 09/13/17 09:55 104 09/13/17 09:00 104 121/39 09/13/17 09:00 104 21 74/35 94 Mechanical Ventilator 97 09/13/17 08:56 106 19 100 09/13/17 08:00 100 09/13/17 08:00 100.4 104 21 119/31 94 Mechanical Ventilator 100 100.4 09/13/17 08:00 100 09/13/17 07:06 98 23 100 09/13/17 07:00 104 20 124/24 94 Mechanical Ventilator 100 09/13/17 06:00 98 20 101/30 94 Mechanical Ventilator 100 09/13/17 05:21 105 20 100 09/13/17 05:00 101 20 99/27 94 Mechanical Ventilator 100 09/13/17 04:00 100 09/13/17 04:00 99.4 109 16 107/40 90 Mechanical Ventilator 100 99.4 09/13/17 04:00 109 09/13/17 03:10 95 20 100 09/13/17 03:00 96 20 90/51 92 Mechanical Ventilator 100 09/13/17 02:00 90 21 110/35 93 Mechanical Ventilator 100 09/13/17 01:20 85 22 100 09/13/17 01:00 81 20 102/61 92 Mechanical Ventilator 100 09/13/17 00:00 99.2 101 21 121/48 94 Mechanical Ventilator 100 99.2 09/13/17 00:00 100 09/13/17 00:00 101 09/12/17 23:11 87 20 100 09/12/17 23:00 74 21 111/32 93 Mechanical Ventilator 100 09/12/17 22:00 107 21 130/31 94 Mechanical Ventilator 100 09/12/17 21:15 108 23 100 09/12/17 21:01 116 100/49 09/12/17 21:00 94 21 117/30 94 Mechanical Ventilator 100 09/12/17 20:00 100 09/12/17 20:00 99.6 87 21 113/34 94 Mechanical Ventilator 100 99.6 09/12/17 20:00 87 09/12/17 19:00 126 20 123/30 94 Mechanical Ventilator 100 09/12/17 19:00 120/78 09/12/17 18:55 127 22 100 09/12/17 18:30 127 20 124/30 94 Mechanical Ventilator 100 09/12/17 18:00 142/30 09/12/17 18:00 123 18 142/30 96 Mechanical Ventilator 100 09/12/17 17:45 118 20 142/30 93 Mechanical Ventilator 100 09/12/17 17:45 142/30 09/12/17 17:30 133/33 09/12/17 17:30 123 20 133/33 96 Mechanical Ventilator 100 09/12/17 17:15 136/91 09/12/17 17:15 136 20 136/91 95 Mechanical Ventilator 100 4/11/18 17:13 125 19 100 09/12/17 17:12 100.0 120 21 131/35 95 100.0 09/12/17 17:03 109/37 09/12/17 16:57 44/28 09/12/17 16:55 136 20 44/28 98 Mechanical Ventilator 100 09/12/17 16:30 135 47/30 09/12/17 16:30 135 47/30 09/12/17 16:12 139 09/12/17 16:00 100 09/12/17 15:29 151 21 100 09/12/17 15:00 127 23 104/46 96 Mechanical Ventilator 100 Labs: Laboratory Tests Test 09/13/17 05:00 09/13/17 10:00 White Blood Count 16.4 K/UL (4.8-10.8) H Red Blood Count 3.44 M/UL (4.20-5.40) L Hemoglobin 9.9 G/DL (12.0-16.0) L Hematocrit 30.3 % (37.0-47.0) L Mean Corpuscular Volume 88 FL (80-99) Mean Corpuscular Hemoglobin 28.9 PG (27.0-31.0) Mean Corpuscular Hemoglobin Concent 32.8 G/DL (32.0-36.0) Red Cell Distribution Width 12.9 % (11.6-14.8) Platelet Count 191 K/UL (150-450) Mean Platelet Volume 7.2 FL (6.5-10.1) Neutrophils (%) (Auto) % (45.0-75.0) Lymphocytes (%) (Auto) % (20.0-45.0) Monocytes (%) (Auto) % (1.0-10.0) Eosinophils (%) (Auto) % (0.0-3.0) Basophils (%) (Auto) % (0.0-2.0) Differential Total Cells Counted 100 Neutrophils % (Manual) 78 % (45-75) H Lymphocytes % (Manual) 4 % (20-45) L Monocytes % (Manual) 7 % (1-10) Eosinophils % (Manual) 1 % (0-3) Basophils % (Manual) 0 % (0-2) Band Neutrophils 10 % (0-8) H Platelet Estimate Adequate Platelet Morphology Normal Sodium Level 140 MMOL/L (136-145) Potassium Level 4.7 MMOL/L (3.5-5.1) Chloride Level 107 MMOL/L (98-107) Carbon Dioxide Level 21 MMOL/L (21-32) Anion Gap 12 mmol/L (5-15) Blood Urea Nitrogen 64 mg/dL (7-18) H Creatinine 3.0 MG/DL (0.55-1.30) H Estimat Glomerular Filtration Rate mL/min (>60) Glucose Level 88 MG/DL (74-106) Calcium Level 8.0 MG/DL (8.5-10.1) L Total Bilirubin 0.4 MG/DL (0.2-1.0) Aspartate Amino Transf (AST/SGOT) 52 U/L (15-37) H Alanine Aminotransferase (ALT/SGPT) 17 U/L (12-78) Alkaline Phosphatase 76 U/L (46-116) Troponin I 0.380 ng/mL (0.000-0.056) Total Protein 6.4 G/DL (6.4-8.2) Albumin 1.9 G/DL (3.4-5.0) L Globulin 4.5 g/dL Albumin/Globulin Ratio 0.4 (1.0-2.7) L Vancomycin Level Trough 14.0 ug/mL (5.0-12.0) H Objective: WDWN female NAD trach in place reduced breath sounds L>>R bilaterally with some rhonchi which are same S1S2 iRRR without MRG NABS nontender no HSM; GT no distention no CC; mild edema nonfocal nonverbal skin and lines reviewed withdrawn Micro: Microbiology Date/Time Source Procedure Growth Status 09/11/17 10:35 Blood Blood Culture - Preliminary NO GROWTH AFTER 24 HOURS Resulted 09/11/17 10:25 Blood Blood Culture - Preliminary NO GROWTH AFTER 24 HOURS Resulted Accucheck: 182 MARCY MAJOR Sep 13, 2017 14:24
--- NOTE | 2017-09-13 14:26 | Wound Care Consultation ---
Wound Assessment Wound Assessment : Wound Number: 1 Wound Present on Admission: Yes New Wound: No Status Change of Wound: No Wound Location Body Site: sacral Wound Type: pressure ulcer Ross Test: Does not Ross Pressure Ulcer Stage: II Wound Thickness: Partial Thickness Wound Length: 0.5 Wound Width: 0.5 Wound Depth: less than 0.1 Percent of Wound [place]/Red: 100 Wound Drainage Description: Serosanguineous Wound Drainage Amount: Scant Wound Drainage Odor: None/Absent Tissue Surrounding Wound: Erythemic Wound General Appearance: Reddened Wound Comment #1 Sacral stage II pressure ulcer Recommendation -Local wound care per protocol -Keep clean and dry -Offload both heels -Heel protector on both heels -Optimize nutrition -Turn and reposition -Low air loss mattress -Assess and f/u accordingly for any changes TOMA CORTES RN Sep 13, 2017 14:26
[2017-09-13] MEDS ORDERED: NS Irrig 1000ml ONE (14:40)
[2017-09-13] MEDS ORDERED: NS 275ml ONE ×2 (14:40)
[2017-09-13] MEDS: Acetaminophen 650mg/20.3ml GT PRN (15:16)
[2017-09-13] MEDS: Dyna-Hex 2% Top Sol 2oz TOPIC SCH (19:32)
[2017-09-13] MEDS: Metoprolol Tartrate 50mg tab GT SCH (20:38)
--- NOTE | 2017-09-13 21:44 | General Progress Note ---
Assessment/Plan Assessment/Plan Assessment - GT site leak - Diarrhea, r/o C diff - afib, RVR - Metastatic H&N CA - Resp failure - Renal failure - Poor Px Recommendations - check C Diff - follow labs and exam - GT site care Subjective Allergies: Coded Allergies: PENICILLINS (Verified Allergy, Unknown, 07/31/16) Objective Last 24 Hour Vital Signs Date Time Temp Pulse Resp B/P (MAP) Pulse Ox O2 Delivery O2 Flow Rate FiO2 09/13/17 21:23 80 16 100 09/13/17 20:38 83 94/31 09/13/17 20:37 83 94/31 09/13/17 20:00 98.1 83 16 94/31 98 Mechanical Ventilator 100 98.1 09/13/17 20:00 100 09/13/17 20:00 83 09/13/17 19:30 88 13 100 09/13/17 19:00 87 18 88/24 98 Mechanical Ventilator 100 09/13/17 18:00 92 21 101/28 98 Mechanical Ventilator 100 09/13/17 17:00 98.9 87 21 112/34 98 Mechanical Ventilator 100 98.9 09/13/17 17:00 112/34 09/13/17 16:37 93 20 100 09/13/17 16:00 100 09/13/17 16:00 100 09/13/17 16:00 99.2 93 20 96/34 95 Mechanical Ventilator 100 99.2 09/13/17 15:50 99.2 09/13/17 15:16 100.9 09/13/17 15:00 100.9 100 17 100/30 95 Mechanical Ventilator 100 100.9 09/13/17 14:54 96 18 100 09/13/17 14:00 96 18 103/27 95 Mechanical Ventilator 100 09/13/17 13:00 98 20 109/49 95 Mechanical Ventilator 100 09/13/17 12:40 101 21 100 09/13/17 12:00 99 20 92/25 94 Mechanical Ventilator 100 09/13/17 12:00 100 09/13/17 12:00 103 09/13/17 11:00 100.4 101 20 89/66 95 Mechanical Ventilator 100 100.4 09/13/17 10:59 102 22 100 09/13/17 10:00 104 21 104/17 95 Mechanical Ventilator 100 09/13/17 09:55 104 09/13/17 09:00 104 121/39 09/13/17 09:00 104 21 74/35 94 Mechanical Ventilator 100 09/13/17 08:56 106 19 100 09/13/17 08:00 100 09/13/17 08:00 100.4 104 21 119/31 94 Mechanical Ventilator 100 100.4 09/13/17 08:00 100 09/13/17 07:06 98 23 100 09/13/17 07:00 104 20 124/24 94 Mechanical Ventilator 100 09/13/17 06:00 98 20 101/30 94 Mechanical Ventilator 100 09/13/17 05:21 105 20 100 09/13/17 05:00 101 20 99/27 94 Mechanical Ventilator 100 09/13/17 04:00 100 09/13/17 04:00 99.4 109 16 107/40 90 Mechanical Ventilator 100 99.4 09/13/17 04:00 109 09/13/17 03:10 95 20 100 09/13/17 03:00 96 20 90/51 92 Mechanical Ventilator 100 09/13/17 02:00 90 21 110/35 93 Mechanical Ventilator 100 09/13/17 01:20 85 22 100 09/13/17 01:00 81 20 102/61 92 Mechanical Ventilator 100 09/13/17 00:00 99.2 101 21 121/48 94 Mechanical Ventilator 100 99.2 09/13/17 00:00 100 09/13/17 00:00 101 09/12/17 23:11 87 20 100 09/12/17 23:00 74 21 111/32 93 Mechanical Ventilator 100 09/12/17 22:00 107 21 130/31 94 Mechanical Ventilator 100 Intake and Output 09/12/17 09/13/17 19:00 07:00 Intake Total 1002.5 ml 137.5 ml Output Total 125 ml 110 ml Balance 877.5 ml 27.5 ml Free Water 60 ml IV Total 782.5 ml 137.5 ml Tube Feeding 160 ml Output Urine Total 85 ml 110 ml Stool Total 40 ml # Bowel Movements 3 3 Laboratory Tests 09/13/17 05:00: White Blood Count 16.4H, Red Blood Count 3.44L, Hemoglobin 9.9L, Hematocrit 30.3L, Mean Corpuscular Volume 88, Mean Corpuscular Hemoglobin 28.9, Mean Corpuscular Hemoglobin Concent 32.8, Red Cell Distribution Width 12.9, Platelet Count 191, Mean Platelet Volume 7.2, Neutrophils (%) (Auto) , Lymphocytes (%) ( Auto) , Monocytes (%) (Auto) , Eosinophils (%) (Auto) , Basophils (%) (Auto) , Differential Total Cells Counted 100, Neutrophils % (Manual) 78H, Lymphocytes % (Manual) 4L, Monocytes % (Manual) 7, Eosinophils % (Manual) 1, Basophils % ( Manual) 0, Band Neutrophils 10H, Platelet Estimate Adequate, Platelet Morphology Normal, Sodium Level 140, Potassium Level 4.7, Chloride Level 107, Carbon Dioxide Level 21, Anion Gap 12, Blood Urea Nitrogen 64H, Creatinine 3.0H , Estimat Glomerular Filtration Rate , Glucose Level 88, Calcium Level 8.0L, Total Bilirubin 0.4, Aspartate Amino Transf (AST/SGOT) 52H, Alanine Aminotransferase (ALT/SGPT) 17, Alkaline Phosphatase 76, Troponin I 0.380H, Total Protein 6.4, Albumin 1.9L, Globulin 4.5, Albumin/Globulin Ratio 0.4L 09/13/17 10:00: Vancomycin Level Trough 14.0H Height (Feet): 4 Height (Inches): 10.00 Weight (Pounds): 117 BIN MYERS Sep 13, 2017 21:44
[2017-09-14] VITALS (25 sets, daily range): BP systolic 77–109; BP diastolic 23–69
--- NOTE | 2017-09-14 03:00 | Progress Note ---
DATE: 09/13/2017 CARDIOLOGY PROGRESS NOTE SUBJECTIVE: The patient remains on ventilator support. Poorly responsive. Blood pressure is marginal, pressors are being tapered off. Monitored rhythm, sinus with paroxysms of atrial fibrillation rapid ventricular response. ICU logs reviewed. OBJECTIVE: VITAL SIGNS: Blood pressure 89/66, pulse 101, respiratory rate 20, and T-max 100.4 degrees. LUNGS: Coarse breath sounds. Rhonchi and rales, right greater than left. HEART: Irregularly irregular rhythm. Normal S1 and S2. ABDOMEN: Soft. G-tube intact. EXTREMITIES: Trace edema. LABORATORY DATA: White count 16 and hemoglobin 9.9. BUN 64, creatinine 3, bicarbonate 21, sodium 140, and potassium 4.7. Troponin is 0.38. IMPRESSION: 1. Acute myocardial infarction. 2. Respiratory failure. 3. Paroxysmal atrial fibrillation with rapid ventricular response. 4. 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 5. Severe protein-calorie malnutrition. 6. Possible sepsis with shock, recovering. 7. Chronic hypotension, on midodrine. PLAN: 1. Avoid pressors. 2. Use midodrine. 3. Antimicrobials. 4. Ventilator support. 5. Taper oxygen. 6. Anti-platelet therapy. 7. No anticoagulant due to bleeding risk. 8. Maintain beta-diego. 9. We will hold parameters for low range blood pressure and as she remains critical and guarded with very poor prognosis, advanced directives to be discussed. Chi Bhatti M.D. DR: MYRNA JOB#: [id number] CC:
[2017-09-14] MEDS: Meropenem 500 MG in NS 100 ML IVPB SCH (03:03)
--- NOTE | 2017-09-14 04:00 | Consultation ---
DATE OF CONSULTATION: 09/13/2017 GASTROENTEROLOGY CONSULTATION CONSULTING PHYSICIAN: Yina Li M.D. REFERRING PHYSICIAN: Rico Madrigal M.D. CHIEF COMPLAINT: I was asked to see this patient by Dr. Rico Madrigal for evaluation of gastrostomy tube leakage. 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 The patient is on a ventilator and unable to provide any history. Most of the information is only available from the chart. During the course of hospitalization, the patient was noted to have atrial fibrillation with rapid heart rate as well as other issues. She has severe diarrhea and has required rectal tube placement. She is unable to provide any history. Most of the information was only available from the chart. The patient's gastrostomy tube which had been placed sometime ago secondary to head and neck cancer was noted to be leaking and therefore this consultation was generated. PAST MEDICAL HISTORY: History of gastrointestinal bleeding, history of respiratory failure, anemia, history of elevation of the heart rate, head and neck squamous cell carcinoma, source from the tongue metastatic to the lung. ALLERGIES: Penicillin. MEDICATIONS: See chart list for details. FAMILY HISTORY: Noncontributory. SOCIAL HISTORY: The patient has had no history of smoking or drinking. REVIEW OF SYSTEMS: Unobtainable. PHYSICAL EXAMINATION: GENERAL: Debilitated white woman, seen in the ICU, on the ventilator. HEENT: Normocephalic. CHEST: Scattered rhonchi. CARDIOVASCULAR: Revealed regular rate. ABDOMEN: Soft and flat with a gastrostomy tube with some leakage of clear gastric juices around it. EXTREMITIES: Revealed trace edema. LABORATORY DATA: Noted. ASSESSMENT: This patient presents with gastrostomy site leak of unclear etiology. Differential diagnosis includes intra-abdominal infection such as Clostridium difficile. The patient has diarrhea. I will check her stool for Clostridium difficile to evaluate this possibility. Gastroparesis will be another consideration, the cause of this will be decided through further investigation. Ischemia and perfusion of the bowel will be another consideration. Medications can cause injuries to GI tract including chronic ulceration. For the time being, I will first check the patient's stool occult blood and continue tube feedings as tolerated. The gastrostomy tube need to be replaced frequently to help preserve the skin integrity. Reglan can also be started at a later date to speed up gastric emptying. Further recommendations are to follow. Thank you for asking me to participate in the care of this patient. Yina Li M.D. DR: Louis JOB#: [id number] CC: MCKENZIE
[2017-09-14] MEDS: Midodrine 10mg tab GT SCH ×3 (08:27→18:01)
[2017-09-14] MEDS: Pantoprazole Inj IVP SCH (08:27)
[2017-09-14] MEDS: Aspirin Baby 81mg NG SCH (08:27)
[2017-09-14] MEDS: Vitamin A&D Oint 2oz Tube TOPIC SCH ×2 (08:28→18:01)
[2017-09-14] MEDS: levETIRAcetam 500mg/5ml Liquid GT SCH ×2 (08:28→20:39)
[2017-09-14] MEDS: Digoxin Elixir 0.125mg GT SCH (08:28)
[2017-09-14] MEDS: Metoprolol 25mg tab GT SCH ×2 (09:00→20:40)
[2017-09-14] MEDS: Metoprolol Tartrate 50mg tab GT SCH ×2 (09:00→20:40)
[2017-09-14 09:37] LABS: HEMATOCRIT 29.4 % (37.0-47.0); HEMOGLOBIN 9.2 G/DL (12.0-16.0); MEAN CORPUSCULAR VOLUME 89 FL (80-99); PLATELET COUNT 196 K/UL (150-450); RED BLOOD COUNT 3.29 M/UL (4.20-5.40); RED CELL DISTRIBUTION WIDTH 13.4 % (11.6-14.8); WHITE BLOOD COUNT 12.3 K/UL (4.8-10.8)
[2017-09-14 09:59] LABS: ALANINE AMINOTRANSFERASE 13 U/L (12-78); ALBUMIN 1.8 G/DL (3.4-5.0); ALBUMIN/GLOBULIN RATIO 0.4 (1.0-2.7); ALKALINE PHOSPHATASE 79 U/L (46-116); ANION GAP 13 mmol/L (5-15); ASPARTATE AMINO TRANSFERASE 58 U/L (15-37); BILIRUBIN,TOTAL 0.4 MG/DL (0.2-1.0); BLOOD UREA NITROGEN 84 mg/dL (7-18); CALCIUM 8.6 MG/DL (8.5-10.1); CARBON DIOXIDE 20 MMOL/L (21-32); CHLORIDE 109 MMOL/L (98-107); CREATININE 3.3 MG/DL (0.55-1.30); POTASSIUM 5.5 MMOL/L (3.5-5.1); SODIUM 142 MMOL/L (136-145)
--- NOTE | 2017-09-14 10:58 | Infectious Diseases Prog Note ---
Assessment/Plan Assessment/Plan antibiotics : vancomycin iv, meropenem A 1. gram negative pneumonia 2. respiratory failure 3. NE 4. renal failure 5. 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 continue meropenem 2. d/c iv vancomycin 3. will follow up cultures Subjective ROS Limited/Unobtainable: Yes Allergies: Coded Allergies: PENICILLINS (Verified Allergy, Unknown, 07/31/16) Objective Vital Signs Last 24 Hour Vital Signs Date Time Temp Pulse Resp B/P (MAP) Pulse Ox O2 Delivery O2 Flow Rate FiO2 09/14/17 09:10 99 20 100 09/14/17 08:28 120 09/14/17 08:00 100 09/14/17 07:25 114 19 100 09/14/17 07:09 94 18 102/46 98 Mechanical Ventilator 100 09/14/17 07:00 102 18 102/36 98 Mechanical Ventilator 100 09/14/17 06:00 94 18 92/36 98 Mechanical Ventilator 100 09/14/17 05:30 98 20 100 09/14/17 05:00 94 18 93/40 98 Mechanical Ventilator 100 09/14/17 04:00 98.5 86 18 99/40 98 Mechanical Ventilator 100 98.5 09/14/17 04:00 117 09/14/17 04:00 100 09/14/17 03:24 91 17 100 09/14/17 03:00 87 18 93/40 98 Mechanical Ventilator 100 09/14/17 02:00 87 19 97/45 98 Mechanical Ventilator 100 09/14/17 01:30 80 15 100 09/14/17 01:00 87 18 99/39 98 Mechanical Ventilator 100 09/14/17 00:00 98.0 89 18 100/45 100 Mechanical Ventilator 100 98.0 09/14/17 00:00 100 09/14/17 00:00 89 09/13/17 23:30 84 14 100 09/13/17 23:00 87 16 93/15 98 Mechanical Ventilator 100 09/13/17 22:00 86 16 94/31 98 Mechanical Ventilator 100 09/13/17 21:23 80 16 100 09/13/17 21:00 84 16 84/45 98 Mechanical Ventilator 100 09/13/17 20:38 83 94/31 09/13/17 20:37 83 94/31 09/13/17 20:00 98.1 83 16 94/31 98 Mechanical Ventilator 100 98.1 09/13/17 20:00 100 09/13/17 20:00 83 09/13/17 19:30 88 13 100 09/13/17 19:00 87 18 88/24 98 Mechanical Ventilator 100 09/13/17 18:00 92 21 101/28 98 Mechanical Ventilator 100 09/13/17 17:00 98.9 87 21 112/34 98 Mechanical Ventilator 100 98.9 09/13/17 17:00 112/34 09/13/17 16:37 93 20 100 09/13/17 16:00 100 09/13/17 16:00 100 09/13/17 16:00 99.2 93 20 96/34 95 Mechanical Ventilator 100 99.2 09/13/17 15:50 99.2 09/13/17 15:16 100.9 09/13/17 15:00 100.9 100 17 100/30 95 Mechanical Ventilator 100 100.9 09/13/17 14:54 96 18 100 09/13/17 14:00 96 18 103/27 95 Mechanical Ventilator 100 09/13/17 13:00 98 20 109/49 95 Mechanical Ventilator 100 09/13/17 12:40 101 21 100 09/13/17 12:00 99 20 92/25 94 Mechanical Ventilator 100 09/13/17 12:00 100 09/13/17 12:00 103 09/13/17 11:00 100.4 101 20 89/66 95 Mechanical Ventilator 100 100.4 09/13/17 10:59 102 22 100 Height (Feet): 4 Height (Inches): 10.00 Weight (Pounds): 120 HEENT: status post trach Respiratory/Chest: lungs clear Cardiovascular: normal rate, regular rhythm, no gallop/murmur Abdomen: soft, non tender, other - GT Extremities: no edema, other - right arm PICC Microbiology Date/Time Source Procedure Growth Status 09/11/17 20:45 Sputum Gram Stain Pending Resulted 09/11/17 20:45 Sputum Culture - Preliminary Gram Negative Bacillus 1 Gram Negative Bacillus 2 Resulted 09/13/17 19:00 Stool Clostridium difficile Toxin Assay - Final Complete Laboratory Tests Test 09/14/17 08:30 09/14/17 08:35 White Blood Count 12.3 K/UL (4.8-10.8) H Red Blood Count 3.29 M/UL (4.20-5.40) L Hemoglobin 9.2 G/DL (12.0-16.0) L Hematocrit 29.4 % (37.0-47.0) L Mean Corpuscular Volume 89 FL (80-99) Mean Corpuscular Hemoglobin 28.0 PG (27.0-31.0) Mean Corpuscular Hemoglobin Concent 31.3 G/DL (32.0-36.0) L Red Cell Distribution Width 13.4 % (11.6-14.8) Platelet Count 196 K/UL (150-450) Mean Platelet Volume 7.9 FL (6.5-10.1) Neutrophils (%) (Auto) % (45.0-75.0) Lymphocytes (%) (Auto) % (20.0-45.0) Monocytes (%) (Auto) % (1.0-10.0) Eosinophils (%) (Auto) % (0.0-3.0) Basophils (%) (Auto) % (0.0-2.0) Neutrophils % (Manual) Pending Lymphocytes % (Manual) Pending Platelet Estimate Pending Platelet Morphology Pending Sodium Level 142 MMOL/L (136-145) Potassium Level 5.5 MMOL/L (3.5-5.1) H Chloride Level 109 MMOL/L (98-107) H Carbon Dioxide Level 20 MMOL/L (21-32) L Anion Gap 13 mmol/L (5-15) Blood Urea Nitrogen 84 mg/dL (7-18) H Creatinine 3.3 MG/DL (0.55-1.30) H Estimat Glomerular Filtration Rate mL/min (>60) Glucose Level 80 MG/DL (74-106) Calcium Level 8.6 MG/DL (8.5-10.1) Total Bilirubin 0.4 MG/DL (0.2-1.0) Aspartate Amino Transf (AST/SGOT) 58 U/L (15-37) H Alanine Aminotransferase (ALT/SGPT) 13 U/L (12-78) Alkaline Phosphatase 79 U/L (46-116) Total Protein 6.6 G/DL (6.4-8.2) Albumin 1.8 G/DL (3.4-5.0) L Globulin 4.8 g/dL Albumin/Globulin Ratio 0.4 (1.0-2.7) L Digoxin Level 4.8 NG/ML (0.9-2.0) *H Current Medications Medications (Trade) Dose Ordered Sig/Josiah Route PRN Reason Start Time Stop Time Status Last Admin Dose Admin Acetaminophen (Tylenol) 650 mg Q4H PRN GT Mild Pain/Temp > 100.5 09/11/17 09:00 10/11/17 08:59 09/13/17 15:16 Aspirin (ASA) 81 mg DAILY NG 09/10/17 11:00 10/10/17 10:59 09/14/17 08:27 Chlorhexidine Gluconate (Cathy-Hex 2%) 1 applic DAILY@2000 TOPIC 09/11/17 20:00 10/11/17 19:59 09/13/17 19:32 Levalbuterol HCl (Xopenex) 0.625 mg Q4H PRN HHN Shortness of Breath 09/10/17 08:30 09/15/17 08:29 Levetiracetam (Keppra) 500 mg Q12HR GT 09/10/17 12:00 10/10/17 11:59 09/14/17 08:28 Levothyroxine Sodium (Synthroid) 150 mcg ACBREAKFAST GT 09/13/17 06:30 10/13/17 06:29 09/14/17 06:08 Meropenem 500 mg/ Sodium Chloride 100 ml @ 200 mls/hr Q24H IVPB 09/14/17 03:00 09/19/17 02:59 09/14/17 03:03 Metoprolol Tartrate (Lopressor) 50 mg Q12HR GT 09/12/17 21:00 10/12/17 20:59 09/12/17 21:01 Metoprolol Tartrate (Lopressor) 50 mg Q12HR GT 09/13/17 21:00 10/12/17 20:59 Midodrine (Pro-Amatine) 10 mg THREE TIMES A DAY GT 09/10/17 13:00 10/10/17 12:59 09/14/17 08:27 Norepinephrine Bitartrate 4 mg/ Dextrose 250 ml @ 0 mls/hr Q24H IV 09/12/17 17:00 10/12/17 16:59 09/12/17 16:57 Pantoprazole (Protonix) 40 mg DAILY IVP 09/10/17 11:00 10/10/17 10:59 09/14/17 08:27 Vancomycin HCl (Vanco rx to dose) 1 ea DAILY PRN MISC Per rx protocol 09/10/17 08:30 10/10/17 08:29 Vitamin A/Vitamin D (A & D Oint) 1 applic BID TOPIC 09/10/17 12:00 10/10/17 11:59 09/14/17 08:28 MARA BLOCK Sep 14, 2017 10:58
[2017-09-14] MEDS ORDERED: Sodium Polystyrene Sulfonate 15gm Powder ORAL SCH (11:30)
[2017-09-14] MEDS: Acetaminophen 650mg/20.3ml GT PRN (14:00)
--- NOTE | 2017-09-14 14:30 | Critical Care Progress Note ---
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 PLAN care noted IV antibiotics reviewed respiratory care Ventilatory settings as is and adjust PEEP SNF meds supportive care as is suction and maintain as is no wean planned oxygen therapy at max dose and try to reduce prognosis poor advanced directives; called left for son to discuss options d/w nursing medications/laboratory data/nursing notes/ICU care reviewed in detail note reviewed and edited care discussed with RN and RT ICU time spent 42 minutes Critical Care - Subjective Interval Events: care noted and reviewed oxygenation better in ICU and too ill to transfer son has not called back ROS Limited/Unobtainable: Yes Condition: critical EKG Rhythm: Atrial Fibrillation Residuals: minimal Tube Feeding Tolerated: yes I&O: Intake and Output 09/13/17 09/14/17 19:00 07:00 Intake Total 320 ml 100 ml Output Total 405 ml 165 ml Balance -85 ml -65 ml IV Total 220 ml 100 ml Other 100 ml Output Urine Total 155 ml 165 ml Stool Total 250 ml # Bowel Movements 3 103 Critical Care - Objective Last 24 Hour Vital Signs Date Time Temp Pulse Resp B/P (MAP) Pulse Ox O2 Delivery O2 Flow Rate FiO2 09/14/17 14:00 100.8 09/14/17 14:00 129 18 100/36 97 Mechanical Ventilator 90 09/14/17 13:30 100.8 128 100.8 09/14/17 13:04 130 18 90 09/14/17 13:00 129 18 77/37 97 Mechanical Ventilator 90 09/14/17 12:00 90 09/14/17 12:00 129 18 109/27 98 Mechanical Ventilator 100 09/14/17 12:00 130 09/14/17 11:28 126 21 90 09/14/17 11:00 98 20 87/69 98 Mechanical Ventilator 100 09/14/17 10:00 104 20 84/48 98 Mechanical Ventilator 100 09/14/17 09:10 99 20 100 09/14/17 09:00 108 21 78/44 98 Mechanical Ventilator 100 09/14/17 09:00 108 78/44 09/14/17 09:00 108 78/44 09/14/17 08:28 120 09/14/17 08:00 106 09/14/17 08:00 100 09/14/17 08:00 99.2 137 21 99/45 98 Mechanical Ventilator 100 99.2 09/14/17 07:25 114 19 100 09/14/17 07:09 94 18 102/46 98 Mechanical Ventilator 100 09/14/17 07:00 102 18 102/36 98 Mechanical Ventilator 100 09/14/17 06:00 94 18 92/36 98 Mechanical Ventilator 100 09/14/17 05:30 98 20 100 09/14/17 05:00 94 18 93/40 98 Mechanical Ventilator 100 09/14/17 04:00 98.5 86 18 99/40 98 Mechanical Ventilator 100 98.5 09/14/17 04:00 117 09/14/17 04:00 100 09/14/17 03:24 91 17 100 09/14/17 03:00 87 18 93/40 98 Mechanical Ventilator 100 09/14/17 02:00 87 19 97/45 98 Mechanical Ventilator 100 09/14/17 01:30 80 15 100 09/14/17 01:00 87 18 99/39 98 Mechanical Ventilator 100 09/14/17 00:00 98.0 89 18 100/45 100 Mechanical Ventilator 100 98.0 09/14/17 00:00 100 09/14/17 00:00 89 09/13/17 23:30 84 14 100 09/13/17 23:00 87 16 93/15 98 Mechanical Ventilator 100 09/13/17 22:00 86 16 94/31 98 Mechanical Ventilator 100 09/13/17 21:23 80 16 100 09/13/17 21:00 84 16 84/45 98 Mechanical Ventilator 100 09/13/17 20:38 83 94/31 09/13/17 20:37 83 94/31 09/13/17 20:00 98.1 83 16 94/31 98 Mechanical Ventilator 100 98.1 09/13/17 20:00 100 09/13/17 20:00 83 09/13/17 19:30 88 13 100 09/13/17 19:00 87 18 88/24 98 Mechanical Ventilator 100 09/13/17 18:00 92 21 101/28 98 Mechanical Ventilator 100 4/12/18 17:00 98.9 87 21 112/34 98 Mechanical Ventilator 100 98.9 09/13/17 17:00 112/34 09/13/17 16:37 93 20 100 09/13/17 16:00 100 09/13/17 16:00 100 09/13/17 16:00 99.2 93 20 96/34 95 Mechanical Ventilator 100 99.2 09/13/17 15:50 99.2 09/13/17 15:16 100.9 09/13/17 15:00 100.9 100 17 100/30 95 Mechanical Ventilator 100 100.9 09/13/17 14:54 96 18 100 Labs: Laboratory Tests Test 09/14/17 08:30 09/14/17 08:35 White Blood Count 12.3 K/UL (4.8-10.8) H Red Blood Count 3.29 M/UL (4.20-5.40) L Hemoglobin 9.2 G/DL (12.0-16.0) L Hematocrit 29.4 % (37.0-47.0) L Mean Corpuscular Volume 89 FL (80-99) Mean Corpuscular Hemoglobin 28.0 PG (27.0-31.0) Mean Corpuscular Hemoglobin Concent 31.3 G/DL (32.0-36.0) L Red Cell Distribution Width 13.4 % (11.6-14.8) Platelet Count 196 K/UL (150-450) Mean Platelet Volume 7.9 FL (6.5-10.1) Neutrophils (%) (Auto) % (45.0-75.0) Lymphocytes (%) (Auto) % (20.0-45.0) Monocytes (%) (Auto) % (1.0-10.0) Eosinophils (%) (Auto) % (0.0-3.0) Basophils (%) (Auto) % (0.0-2.0) Differential Total Cells Counted 100 Neutrophils % (Manual) 73 % (45-75) Lymphocytes % (Manual) 6 % (20-45) L Monocytes % (Manual) 3 % (1-10) Eosinophils % (Manual) 0 % (0-3) Basophils % (Manual) 0 % (0-2) Band Neutrophils 18 % (0-8) H Platelet Estimate Adequate Platelet Morphology Normal Hypochromasia 1+ Sodium Level 142 MMOL/L (136-145) Potassium Level 5.5 MMOL/L (3.5-5.1) H Chloride Level 109 MMOL/L (98-107) H Carbon Dioxide Level 20 MMOL/L (21-32) L Anion Gap 13 mmol/L (5-15) Blood Urea Nitrogen 84 mg/dL (7-18) H Creatinine 3.3 MG/DL (0.55-1.30) H Estimat Glomerular Filtration Rate mL/min (>60) Glucose Level 80 MG/DL (74-106) Calcium Level 8.6 MG/DL (8.5-10.1) Total Bilirubin 0.4 MG/DL (0.2-1.0) Aspartate Amino Transf (AST/SGOT) 58 U/L (15-37) H Alanine Aminotransferase (ALT/SGPT) 13 U/L (12-78) Alkaline Phosphatase 79 U/L (46-116) Total Protein 6.6 G/DL (6.4-8.2) Albumin 1.8 G/DL (3.4-5.0) L Globulin 4.8 g/dL Albumin/Globulin Ratio 0.4 (1.0-2.7) L Digoxin Level 4.8 NG/ML (0.9-2.0) *H Objective: WDWN female NAD trach in place reduced breath sounds L>>R bilaterally with some rhonchi which are same S1S2 iRRR without MRG NABS nontender no HSM; GT no distention no CC; mild edema nonfocal nonverbal skin and lines reviewed withdrawn Micro: Microbiology Date/Time Source Procedure Growth Status 09/11/17 20:45 Sputum Gram Stain Pending Resulted 09/11/17 20:45 Sputum Culture - Preliminary Gram Negative Bacillus 1 Gram Negative Bacillus 2 Resulted 09/13/17 19:00 Stool Clostridium difficile Toxin Assay - Final Complete Accucheck: 182 MARCY MAJOR Sep 14, 2017 14:30
--- NOTE | 2017-09-14 14:52 | General Progress Note ---
Assessment/Plan Problem List: (1) Sepsis ICD Codes: A41.9 - Sepsis, unspecified organism SNOMED: 36273927 (2) Lung metastases ICD Codes: C78.00 - Secondary malignant neoplasm of unspecified lung SNOMED: 74436833 (3) Tracheostomy dependence ICD Codes: Z93.0 - Tracheostomy status SNOMED: 560695558, 710661324 (4) NSTEMI (non-ST elevated myocardial infarction) ICD Codes: I21.4 - Non-ST elevation (NSTEMI) myocardial infarction SNOMED: 758741113 (5) Hypoxia ICD Codes: R09.02 - Hypoxemia SNOMED: 111291776 (6) Shortness of breath ICD Codes: R06.02 - Shortness of breath SNOMED: 827865504 (7) Tongue malignant neoplasm ICD Codes: C02.9 - Malignant neoplasm of tongue, unspecified SNOMED: 470891509 (8) Respiratory failure ICD Codes: J96.90 - Respiratory failure, unspecified, unspecified whether with hypoxia or hypercapnia SNOMED: 147484529 Status: stable, deteriorating Assessment/Plan iv abx follow up cultures vent support titrate fio2 monitor cxr ivf and albumin as needed renal eval pending kayexylate x 1 resp rx feeds stress ulcer prophylaxis d/w son critical and guarded poor prognosis Subjective ROS Limited/Unobtainable: No Constitutional: Reports: malaise, weakness HEENT: Reports: no symptoms Cardiovascular: Reports: edema Respiratory: Reports: shortness of breath, SOB with excertion, sputum Gastrointestinal/Abdominal: Reports: difficulty swallowing Genitourinary: Reports: no symptoms Neurologic/Psychiatric: Reports: pre-existing deficit Endocrine: Reports: no symptoms Hematologic/Lymphatic: Reports: anemia Allergies: Coded Allergies: PENICILLINS (Verified Allergy, Unknown, 07/31/16) All Systems: reviewed and negative except above Subjective doing poorly. poor uop. +sob. on 90%fio2. labs noted. worsening renal fxn. Objective Last 24 Hour Vital Signs Date Time Temp Pulse Resp B/P (MAP) Pulse Ox O2 Delivery O2 Flow Rate FiO2 09/14/17 14:00 100.8 09/14/17 14:00 129 18 100/36 97 Mechanical Ventilator 90 09/14/17 13:30 100.8 128 100.8 09/14/17 13:04 130 18 90 09/14/17 13:00 129 18 77/37 97 Mechanical Ventilator 90 09/14/17 12:00 90 09/14/17 12:00 129 18 109/27 98 Mechanical Ventilator 100 09/14/17 12:00 130 09/14/17 11:28 126 21 90 09/14/17 11:00 98 20 87/69 98 Mechanical Ventilator 100 09/14/17 10:00 104 20 84/48 98 Mechanical Ventilator 100 09/14/17 09:10 99 20 100 09/14/17 09:00 108 21 78/44 98 Mechanical Ventilator 100 09/14/17 09:00 108 78/44 09/14/17 09:00 108 78/44 09/14/17 08:28 120 09/14/17 08:00 106 09/14/17 08:00 100 09/14/17 08:00 99.2 137 21 99/45 98 Mechanical Ventilator 100 99.2 09/14/17 07:25 114 19 100 09/14/17 07:09 94 18 102/46 98 Mechanical Ventilator 100 09/14/17 07:00 102 18 102/36 98 Mechanical Ventilator 100 09/14/17 06:00 94 18 92/36 98 Mechanical Ventilator 100 09/14/17 05:30 98 20 100 09/14/17 05:00 94 18 93/40 98 Mechanical Ventilator 100 09/14/17 04:00 98.5 86 18 99/40 98 Mechanical Ventilator 100 98.5 09/14/17 04:00 117 09/14/17 04:00 100 09/14/17 03:24 91 17 100 09/14/17 03:00 87 18 93/40 98 Mechanical Ventilator 100 09/14/17 02:00 87 19 97/45 98 Mechanical Ventilator 100 09/14/17 01:30 80 15 100 09/14/17 01:00 87 18 99/39 98 Mechanical Ventilator 100 09/14/17 00:00 98.0 89 18 100/45 100 Mechanical Ventilator 100 98.0 09/14/17 00:00 100 09/14/17 00:00 89 09/13/17 23:30 84 14 100 09/13/17 23:00 87 16 93/15 98 Mechanical Ventilator 100 09/13/17 22:00 86 16 94/31 98 Mechanical Ventilator 100 09/13/17 21:23 80 16 100 09/13/17 21:00 84 16 84/45 98 Mechanical Ventilator 100 09/13/17 20:38 83 94/31 09/13/17 20:37 83 94/31 09/13/17 20:00 98.1 83 16 94/31 98 Mechanical Ventilator 100 98.1 09/13/17 20:00 100 09/13/17 20:00 83 09/13/17 19:30 88 13 100 09/13/17 19:00 87 18 88/24 98 Mechanical Ventilator 100 09/13/17 18:00 92 21 101/28 98 Mechanical Ventilator 100 09/13/17 17:00 98.9 87 21 112/34 98 Mechanical Ventilator 100 98.9 09/13/17 17:00 112/34 09/13/17 16:37 93 20 100 09/13/17 16:00 100 09/13/17 16:00 100 09/13/17 16:00 99.2 93 20 96/34 95 Mechanical Ventilator 100 99.2 09/13/17 15:50 99.2 09/13/17 15:16 100.9 09/13/17 15:00 100.9 100 17 100/30 95 Mechanical Ventilator 100 100.9 09/13/17 14:54 96 18 100 Intake and Output 09/13/17 09/14/17 19:00 07:00 Intake Total 320 ml 100 ml Output Total 405 ml 165 ml Balance -85 ml -65 ml IV Total 220 ml 100 ml Other 100 ml Output Urine Total 155 ml 165 ml Stool Total 250 ml # Bowel Movements 3 103 Laboratory Tests 09/14/17 08:30: White Blood Count 12.3H, Red Blood Count 3.29L, Hemoglobin 9.2L, Hematocrit 29.4L, Mean Corpuscular Volume 89, Mean Corpuscular Hemoglobin 28.0, Mean Corpuscular Hemoglobin Concent 31.3L, Red Cell Distribution Width 13.4, Platelet Count 196, Mean Platelet Volume 7.9, Neutrophils (%) (Auto) , Lymphocytes (%) (Auto) , Monocytes (%) (Auto) , Eosinophils (%) (Auto) , Basophils (%) (Auto) , Differential Total Cells Counted 100, Neutrophils % ( Manual) 73, Lymphocytes % (Manual) 6L, Monocytes % (Manual) 3, Eosinophils % ( Manual) 0, Basophils % (Manual) 0, Band Neutrophils 18H, Platelet Estimate Adequate, Platelet Morphology Normal, Hypochromasia 1+ 09/14/17 08:35: Sodium Level 142, Potassium Level 5.5H, Chloride Level 109H, Carbon Dioxide Level 20L, Anion Gap 13, Blood Urea Nitrogen 84H, Creatinine 3.3H, Estimat Glomerular Filtration Rate , Glucose Level 80, Calcium Level 8.6, Total Bilirubin 0.4, Aspartate Amino Transf (AST/SGOT) 58H, Alanine Aminotransferase ( ALT/SGPT) 13, Alkaline Phosphatase 79, Total Protein 6.6, Albumin 1.8L, Globulin 4.8, Albumin/Globulin Ratio 0.4L, Digoxin Level 4.8*H Height (Feet): 4 Height (Inches): 10.00 Weight (Pounds): 120 Objective General Appearance: WD/WN, alert/opens eyes Neck: supple Cardiovascular: normal rate, regular rhythm Respiratory/Chest: chest wall non-tender, lungs with rhonchi tony Abdomen: normal bowel sounds, non tender, soft, no organomegaly Neurologic: disoriented CHRISTINA HAMMOND Sep 14, 2017 14:52
[2017-09-14] MEDS: Dyna-Hex 2% Top Sol 2oz TOPIC SCH (19:45)
--- NOTE | 2017-09-14 20:53 | General Progress Note ---
Assessment/Plan Assessment/Plan Assessment - GT site leak - Diarrhea, C Diff (-) - afib, RVR - Metastatic H&N CA - Resp failure - Renal failure - Poor Px Recommendations - Restart TF - follow labs and exam - GT site care - Reglan trial Subjective Allergies: Coded Allergies: PENICILLINS (Verified Allergy, Unknown, 07/31/16) Subjective Was off of TF overnight advised RN to restart TF some D/c around TF noted Objective Last 24 Hour Vital Signs Date Time Temp Pulse Resp B/P (MAP) Pulse Ox O2 Delivery O2 Flow Rate FiO2 09/14/17 20:40 98 99/27 09/14/17 20:40 98 99/27 09/14/17 19:00 126 17 104/25 97 Mechanical Ventilator 90 09/14/17 18:57 95 19 90 09/14/17 18:00 91 17 88/61 95 Mechanical Ventilator 90 09/14/17 17:13 131 19 90 09/14/17 17:00 124 17 95/31 97 Mechanical Ventilator 90 09/14/17 16:00 90 09/14/17 16:00 115 09/14/17 16:00 98.7 124 19 98/40 97 Mechanical Ventilator 90 98.7 09/14/17 15:00 135 18 85/38 97 Mechanical Ventilator 90 09/14/17 14:52 137 22 90 09/14/17 14:30 99.0 99.0 09/14/17 14:30 98.6 09/14/17 14:00 100.8 09/14/17 14:00 129 18 100/36 97 Mechanical Ventilator 90 09/14/17 13:30 100.8 128 100.8 09/14/17 13:04 130 18 90 09/14/17 13:00 129 18 77/37 97 Mechanical Ventilator 90 09/14/17 12:17 130 09/14/17 12:00 90 09/14/17 12:00 129 18 109/27 98 Mechanical Ventilator 100 09/14/17 12:00 130 09/14/17 11:28 126 21 90 09/14/17 11:00 98 20 87/69 98 Mechanical Ventilator 100 09/14/17 10:00 104 20 84/48 98 Mechanical Ventilator 100 09/14/17 09:10 99 20 100 09/14/17 09:00 108 21 78/44 98 Mechanical Ventilator 100 09/14/17 09:00 108 78/44 09/14/17 09:00 108 78/44 09/14/17 08:28 120 09/14/17 08:00 106 09/14/17 08:00 100 09/14/17 08:00 99.2 137 21 99/45 98 Mechanical Ventilator 100 99.2 09/14/17 07:25 114 19 100 09/14/17 07:09 94 18 102/46 98 Mechanical Ventilator 100 09/14/17 07:00 102 18 102/36 98 Mechanical Ventilator 100 09/14/17 06:00 94 18 92/36 98 Mechanical Ventilator 100 09/14/17 05:30 98 20 100 09/14/17 05:00 94 18 93/40 98 Mechanical Ventilator 100 09/14/17 04:00 98.5 86 18 99/40 98 Mechanical Ventilator 100 98.5 09/14/17 04:00 117 09/14/17 04:00 100 09/14/17 03:24 91 17 100 09/14/17 03:00 87 18 93/40 98 Mechanical Ventilator 100 09/14/17 02:00 87 19 97/45 98 Mechanical Ventilator 100 09/14/17 01:30 80 15 100 09/14/17 01:00 87 18 99/39 98 Mechanical Ventilator 100 09/14/17 00:00 98.0 89 18 100/45 100 Mechanical Ventilator 100 98.0 09/14/17 00:00 100 09/14/17 00:00 89 09/13/17 23:30 84 14 100 09/13/17 23:00 87 16 93/15 98 Mechanical Ventilator 100 09/13/17 22:00 86 16 94/31 98 Mechanical Ventilator 100 09/13/17 21:23 80 16 100 09/13/17 21:00 84 16 84/45 98 Mechanical Ventilator 100 Intake and Output 09/13/17 09/14/17 19:00 07:00 Intake Total 320 ml 100 ml Output Total 405 ml 165 ml Balance -85 ml -65 ml IV Total 220 ml 100 ml Other 100 ml Output Urine Total 155 ml 165 ml Stool Total 250 ml # Bowel Movements 3 103 Laboratory Tests 09/14/17 08:30: White Blood Count 12.3H, Red Blood Count 3.29L, Hemoglobin 9.2L, Hematocrit 29.4L, Mean Corpuscular Volume 89, Mean Corpuscular Hemoglobin 28.0, Mean Corpuscular Hemoglobin Concent 31.3L, Red Cell Distribution Width 13.4, Platelet Count 196, Mean Platelet Volume 7.9, Neutrophils (%) (Auto) , Lymphocytes (%) (Auto) , Monocytes (%) (Auto) , Eosinophils (%) (Auto) , Basophils (%) (Auto) , Differential Total Cells Counted 100, Neutrophils % ( Manual) 73, Lymphocytes % (Manual) 6L, Monocytes % (Manual) 3, Eosinophils % ( Manual) 0, Basophils % (Manual) 0, Band Neutrophils 18H, Platelet Estimate Adequate, Platelet Morphology Normal, Hypochromasia 1+ 09/14/17 08:35: Sodium Level 142, Potassium Level 5.5H, Chloride Level 109H, Carbon Dioxide Level 20L, Anion Gap 13, Blood Urea Nitrogen 84H, Creatinine 3.3H, Estimat Glomerular Filtration Rate , Glucose Level 80, Calcium Level 8.6, Total Bilirubin 0.4, Aspartate Amino Transf (AST/SGOT) 58H, Alanine Aminotransferase ( ALT/SGPT) 13, Alkaline Phosphatase 79, Total Protein 6.6, Albumin 1.8L, Globulin 4.8, Albumin/Globulin Ratio 0.4L, Digoxin Level 4.8*H Height (Feet): 4 Height (Inches): 10.00 Weight (Pounds): 120 Objective Debilitated elderly woman NCAT (+) trach CTA RRR Soft ND NT no edema (+) rectal tube OBS BIN MYERS Sep 14, 2017 20:53
--- NOTE | 2017-09-14 23:00 | Progress Note ---
DATE: 09/14/2017 CARDIOLOGY PROGRESS NOTE SUBJECTIVE: The patient remains in the intensive care unit. Condition remains critical. Prognosis guarded. The patient is on ventilator support. She is poorly responsive. The patient was noted to have elevated digoxin level and worsening renal function. The patient continues to have episodes of rapid atrial fibrillation. OBJECTIVE: VITAL SIGNS: Blood pressure 88/61, pulse 91, respiratory rate 17, afebrile. LUNGS: Poor breath sounds. Scattered rales. HEART: Irregularly irregular rhythm. Normal S1 and S2. ABDOMEN: Soft. G-tube intact. Positive dependent edema. LABORATORY AND DIAGNOSTIC DATA: White count 12.3, hemoglobin 9.2. Digoxin level is 4. Troponin 0.38, BUN 84, creatinine 3.3. Sodium 142, potassium 5.5, bicarb 20. Albumin 1.8. IMPRESSION: 1. Metastatic head and neck cancer. 2. Respiratory failure. 3. Obstructive pneumonia. 4. Acute myocardial infarction. 5. Acute on chronic diastolic congestive heart failure. 6. Paroxysmal atrial fibrillation with rapid ventricular response. 7. Hyperkalemia. 8. Acute on chronic renal failure. 9. Severe protein-calorie malnutrition, critical and guarded. PLAN: 1. Intensive care unit care. 2. Ventilator support. 3. Hold diuretics. 4. Hold digoxin. 5. Cautious use of beta-diego. 6. Consider amiodarone once digoxin level is normalizes. 7. Protein supplement by feeding tube. 8. DVT prophylaxis. 9. Antimicrobials. 10. not weanable. Chi Bhatti M.D. DR: Olegario JOB#: [id number] CC:
[2017-09-15] VITALS (24 sets, daily range): BP systolic 81–152; BP diastolic 29–60
[2017-09-15] MEDS: Meropenem 500 MG in NS 100 ML IVPB SCH (04:05)
[2017-09-15] MEDS: Acetaminophen 650mg/20.3ml GT PRN (05:39)
[2017-09-15 06:50] LABS: HEMATOCRIT 35.4 % (37.0-47.0); HEMOGLOBIN 11.7 G/DL (12.0-16.0); MEAN CORPUSCULAR VOLUME 88 FL (80-99); PLATELET COUNT 247 K/UL (150-450); RED BLOOD COUNT 4.03 M/UL (4.20-5.40); RED CELL DISTRIBUTION WIDTH 13.6 % (11.6-14.8); WHITE BLOOD COUNT 12.8 K/UL (4.8-10.8)
[2017-09-15 06:59] LABS: ALANINE AMINOTRANSFERASE 17 U/L (12-78); ALBUMIN 1.7 G/DL (3.4-5.0); ALBUMIN/GLOBULIN RATIO 0.3 (1.0-2.7); ALKALINE PHOSPHATASE 104 U/L (46-116); ANION GAP 11 mmol/L (5-15); ASPARTATE AMINO TRANSFERASE 62 U/L (15-37); BILIRUBIN,TOTAL 0.4 MG/DL (0.2-1.0); BLOOD UREA NITROGEN 103 mg/dL (7-18); CALCIUM 8.4 MG/DL (8.5-10.1); CARBON DIOXIDE 21 MMOL/L (21-32); CHLORIDE 109 MMOL/L (98-107); CREATINE KINASE 37 U/L (26-308); CREATININE 3.6 MG/DL (0.55-1.30); POTASSIUM 4.6 MMOL/L (3.5-5.1); SODIUM 141 MMOL/L (136-145)
[2017-09-15] MEDS: Midodrine 10mg tab GT SCH ×3 (08:10→17:39)
[2017-09-15] MEDS: Vitamin A&D Oint 2oz Tube TOPIC SCH ×2 (08:11→17:40)
[2017-09-15] MEDS: levETIRAcetam 500mg/5ml Liquid GT SCH ×2 (08:11→21:10)
[2017-09-15] MEDS: Aspirin Baby 81mg NG SCH (08:11)
[2017-09-15] MEDS: Pantoprazole Inj IVP SCH (08:11)
[2017-09-15] MEDS: Metoprolol Tartrate 50mg tab GT SCH ×2 (08:12→21:00)
--- NOTE | 2017-09-15 10:50 | Infectious Diseases Prog Note ---
"Assessment/Plan Assessment/Plan antibiotics : meropenem A 1. stenotrophomonas | pseudomonas | gram negative pneumonia 2. respiratory failure 3. OH 4. renal failure 5. 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 d/c meropenem 2. start cefepime, levoquin 3. will follow up cultures Subjective ROS Limited/Unobtainable: Yes Allergies: Coded Allergies: PENICILLINS (Verified Allergy, Unknown, 07/31/16) Objective Vital Signs Last 24 Hour Vital Signs Date Time Temp Pulse Resp B/P (MAP) Pulse Ox O2 Delivery O2 Flow Rate FiO2 09/15/17 10:00 107 17 91/36 91 Mechanical Ventilator 90 09/15/17 09:08 106 17 100 09/15/17 09:00 108 17 84/33 92 Mechanical Ventilator 90 09/15/17 08:12 114 81/36 09/15/17 08:00 100 09/15/17 08:00 100.7 114 18 81/32 92 Mechanical Ventilator 100 100.7 09/15/17 08:00 115 09/15/17 07:05 119 16 100 09/15/17 07:00 124 22 81/33 91 Mechanical Ventilator 90 09/15/17 06:09 99.9 09/15/17 06:00 135 22 101/42 91 Mechanical Ventilator 90 09/15/17 05:39 99.9 09/15/17 05:05 134 17 100 09/15/17 05:00 99.9 134 23 120/43 92 Mechanical Ventilator 100 99.9 09/15/17 04:00 90 09/15/17 04:00 130 22 131/44 97 Mechanical Ventilator 90 09/15/17 04:00 111 09/15/17 03:31 124 18 90 09/15/17 03:00 121 22 152/60 95 Mechanical Ventilator 90 09/15/17 02:00 108 24 139/36 94 Mechanical Ventilator 90 09/15/17 01:08 108 24 90 09/15/17 01:00 102 25 129/37 95 Mechanical Ventilator 90 09/15/17 00:00 90 09/15/17 00:00 132 09/15/17 00:00 99.1 105 17 114/49 97 Mechanical Ventilator 90 99.1 09/14/17 23:00 99 17 93/44 97 Mechanical Ventilator 90 09/14/17 22:48 130 23 90 09/14/17 22:00 130 17 107/42 97 Mechanical Ventilator 90 09/14/17 21:22 99 16 90 09/14/17 21:00 114 17 99/48 97 Mechanical Ventilator 90 09/14/17 20:40 98 99/27 09/14/17 20:40 98 99/27 09/14/17 20:00 98.9 98 20 99/23 98 Mechanical Ventilator 90 98.9 09/14/17 20:00 90 09/14/17 20:00 117 09/14/17 19:00 126 17 104/25 97 Mechanical Ventilator 90 09/14/17 18:57 95 19 90 09/14/17 18:00 91 17 88/61 95 Mechanical Ventilator 90 09/14/17 17:13 131 19 90 09/14/17 17:00 124 17 95/31 97 Mechanical Ventilator 90 09/14/17 16:00 90 09/14/17 16:00 115 09/14/17 16:00 98.7 124 19 98/40 97 Mechanical Ventilator 90 98.7 09/14/17 15:00 135 18 85/38 97 Mechanical Ventilator 90 09/14/17 14:52 137 22 90 09/14/17 14:30 99.0 99.0 09/14/17 14:00 100.8 09/14/17 14:00 129 18 100/36 97 Mechanical Ventilator 90 09/14/17 13:30 100.8 128 100.8 09/14/17 13:04 130 18 90 09/14/17 13:00 129 18 77/37 97 Mechanical Ventilator 90 09/14/17 12:17 130 09/14/17 12:00 90 09/14/17 12:00 129 18 109/27 98 Mechanical Ventilator 100 09/14/17 12:00 130 09/14/17 11:28 126 21 90 09/14/17 11:00 98 20 87/69 98 Mechanical Ventilator 100 Height (Feet): 4 Height (Inches): 10.00 Weight (Pounds): 121 HEENT: status post trach Respiratory/Chest: lungs clear Cardiovascular: normal rate, regular rhythm, no gallop/murmur Abdomen: soft, non tender, other - GT Extremities: no edema, other - right arm PICC Microbiology Date/Time Source Procedure Growth Status 09/13/17 19:00 Stool Clostridium difficile Toxin Assay - Final Complete Laboratory Tests Test 4/14/18 06:20 White Blood Count 12.8 K/UL (4.8-10.8) H Red Blood Count 4.03 M/UL (4.20-5.40) L Hemoglobin 11.7 G/DL (12.0-16.0) L Hematocrit 35.4 % (37.0-47.0) L Mean Corpuscular Volume 88 FL (80-99) Mean Corpuscular Hemoglobin 29.1 PG (27.0-31.0) Mean Corpuscular Hemoglobin Concent 33.1 G/DL (32.0-36.0) Red Cell Distribution Width 13.6 % (11.6-14.8) Platelet Count 247 K/UL (150-450) Mean Platelet Volume 7.7 FL (6.5-10.1) Neutrophils (%) (Auto) % (45.0-75.0) Lymphocytes (%) (Auto) % (20.0-45.0) Monocytes (%) (Auto) % (1.0-10.0) Eosinophils (%) (Auto) % (0.0-3.0) Basophils (%) (Auto) % (0.0-2.0) Differential Total Cells Counted 100 Neutrophils % (Manual) 65 % (45-75) Lymphocytes % (Manual) 6 % (20-45) L Monocytes % (Manual) 2 % (1-10) Eosinophils % (Manual) 0 % (0-3) Basophils % (Manual) 0 % (0-2) Band Neutrophils 27 % (0-8) H Platelet Estimate Adequate Platelet Morphology Normal Hypochromasia 1+ Sodium Level 141 MMOL/L (136-145) Potassium Level 4.6 MMOL/L (3.5-5.1) Chloride Level 109 MMOL/L (98-107) H Carbon Dioxide Level 21 MMOL/L (21-32) Anion Gap 11 mmol/L (5-15) Blood Urea Nitrogen 103 mg/dL (7-18) H Creatinine 3.6 MG/DL (0.55-1.30) H Estimat Glomerular Filtration Rate mL/min (>60) Glucose Level 130 MG/DL (74-106) H Uric Acid 10.4 MG/DL (2.6-7.2) H Calcium Level 8.4 MG/DL (8.5-10.1) L Total Bilirubin 0.4 MG/DL (0.2-1.0) Aspartate Amino Transf (AST/SGOT) 62 U/L (15-37) H Alanine Aminotransferase (ALT/SGPT) 17 U/L (12-78) Alkaline Phosphatase 104 U/L (46-116) Total Creatine Kinase 37 U/L (26-308) Total Protein 7.0 G/DL (6.4-8.2) Albumin 1.7 G/DL (3.4-5.0) L Globulin 5.3 g/dL Albumin/Globulin Ratio 0.3 (1.0-2.7) L Digoxin Level 3.7 NG/ML (0.9-2.0) *MARA CHURCHILL Sep 15, 2017 10:50"
--- NOTE | 2017-09-15 11:04 | Diagnostic Imaging Report ---
Indication: Dyspnea Technique: XRAY Chest 1v Comparison: 09/13/2017 Findings: Tracheostomy tube in place. There is interval worsening of aeration with increasing bilateral airspace opacities, right greater than left. There is more confluent opacities on the right. Probable bilateral pleural effusions. No appreciable pneumothorax. Osseous structures appear stable. Impression: Interval worsening of aeration bilaterally compared to the prior exam.
--- NOTE | 2017-09-15 11:13 | Critical Care Progress Note ---
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 PLAN care noted IV antibiotics reviewed respiratory care Ventilatory settings as is and adjust PEEP; still on 90% fio2 SNF meds supportive care as is suction and maintain and monitor for change no wean planned; ? able to try diuresis oxygen therapy as able prognosis poor advanced directives; called left for son to discuss options d/w nursing medications/laboratory data/nursing notes/ICU care reviewed in detail note reviewed and edited care discussed with RN and RT ICU time spent 38 minutes Critical Care - Subjective Interval Events: on vent oxygenation better d/w nursing still full code feeding on board ROS Limited/Unobtainable: Yes Condition: critical EKG Rhythm: Atrial Fibrillation Residuals: minimal Tube Feeding Tolerated: yes I&O: Intake and Output 09/14/17 09/15/17 19:00 07:00 Intake Total 360 ml 270 ml Output Total 280 ml 315 ml Balance 80 ml -45 ml Tube Feeding 60 ml 160 ml Other 300 ml 110 ml Output Urine Total 180 ml 165 ml Stool Total 100 ml 150 ml # Bowel Movements 3 3 Critical Care - Objective CXR: improved aeration left diffuse interstitial changes ?lymphangitis vs pulmonary edema Last 24 Hour Vital Signs Date Time Temp Pulse Resp B/P (MAP) Pulse Ox O2 Delivery O2 Flow Rate FiO2 09/15/17 10:00 107 17 91/36 91 Mechanical Ventilator 90 09/15/17 09:08 106 17 100 09/15/17 09:00 108 17 84/33 92 Mechanical Ventilator 90 09/15/17 08:12 114 81/36 09/15/17 08:00 100 09/15/17 08:00 100.7 114 18 81/32 92 Mechanical Ventilator 100 100.7 09/15/17 08:00 115 09/15/17 07:05 119 16 100 09/15/17 07:00 124 22 81/33 91 Mechanical Ventilator 90 09/15/17 06:09 99.9 09/15/17 06:00 135 22 101/42 91 Mechanical Ventilator 90 09/15/17 05:39 99.9 09/15/17 05:05 134 17 100 09/15/17 05:00 99.9 134 23 120/43 92 Mechanical Ventilator 100 99.9 09/15/17 04:00 90 09/15/17 04:00 130 22 131/44 97 Mechanical Ventilator 90 09/15/17 04:00 111 09/15/17 03:31 124 18 90 09/15/17 03:00 121 22 152/60 95 Mechanical Ventilator 90 09/15/17 02:00 108 24 139/36 94 Mechanical Ventilator 90 09/15/17 01:08 108 24 90 09/15/17 01:00 102 25 129/37 95 Mechanical Ventilator 90 09/15/17 00:00 90 09/15/17 00:00 132 09/15/17 00:00 99.1 105 17 114/49 97 Mechanical Ventilator 90 99.1 09/14/17 23:00 99 17 93/44 97 Mechanical Ventilator 90 09/14/17 22:48 130 23 90 09/14/17 22:00 130 17 107/42 97 Mechanical Ventilator 90 09/14/17 21:22 99 16 90 09/14/17 21:00 114 17 99/48 97 Mechanical Ventilator 90 09/14/17 20:40 98 99/27 09/14/17 20:40 98 99/27 09/14/17 20:00 98.9 98 20 99/23 98 Mechanical Ventilator 90 98.9 09/14/17 20:00 90 09/14/17 20:00 117 09/14/17 19:00 126 17 104/25 97 Mechanical Ventilator 90 09/14/17 18:57 95 19 90 09/14/17 18:00 91 17 88/61 95 Mechanical Ventilator 90 09/14/17 17:13 131 19 90 09/14/17 17:00 124 17 95/31 97 Mechanical Ventilator 90 09/14/17 16:00 90 09/14/17 16:00 115 09/14/17 16:00 98.7 124 19 98/40 97 Mechanical Ventilator 90 98.7 09/14/17 15:00 135 18 85/38 97 Mechanical Ventilator 90 09/14/17 14:52 137 22 90 09/14/17 14:30 99.0 99.0 09/14/17 14:00 100.8 09/14/17 14:00 129 18 100/36 97 Mechanical Ventilator 90 09/14/17 13:30 100.8 128 100.8 09/14/17 13:04 130 18 90 09/14/17 13:00 129 18 77/37 97 Mechanical Ventilator 90 09/14/17 12:17 130 09/14/17 12:00 90 09/14/17 12:00 129 18 109/27 98 Mechanical Ventilator 100 09/14/17 12:00 130 09/14/17 11:28 126 21 90 Labs: Laboratory Tests Test 09/15/17 06:20 White Blood Count 12.8 K/UL (4.8-10.8) H Red Blood Count 4.03 M/UL (4.20-5.40) L Hemoglobin 11.7 G/DL (12.0-16.0) L Hematocrit 35.4 % (37.0-47.0) L Mean Corpuscular Volume 88 FL (80-99) Mean Corpuscular Hemoglobin 29.1 PG (27.0-31.0) Mean Corpuscular Hemoglobin Concent 33.1 G/DL (32.0-36.0) Red Cell Distribution Width 13.6 % (11.6-14.8) Platelet Count 247 K/UL (150-450) Mean Platelet Volume 7.7 FL (6.5-10.1) Neutrophils (%) (Auto) % (45.0-75.0) Lymphocytes (%) (Auto) % (20.0-45.0) Monocytes (%) (Auto) % (1.0-10.0) Eosinophils (%) (Auto) % (0.0-3.0) Basophils (%) (Auto) % (0.0-2.0) Differential Total Cells Counted 100 Neutrophils % (Manual) 65 % (45-75) Lymphocytes % (Manual) 6 % (20-45) L Monocytes % (Manual) 2 % (1-10) Eosinophils % (Manual) 0 % (0-3) Basophils % (Manual) 0 % (0-2) Band Neutrophils 27 % (0-8) H Platelet Estimate Adequate Platelet Morphology Normal Hypochromasia 1+ Sodium Level 141 MMOL/L (136-145) Potassium Level 4.6 MMOL/L (3.5-5.1) Chloride Level 109 MMOL/L (98-107) H Carbon Dioxide Level 21 MMOL/L (21-32) Anion Gap 11 mmol/L (5-15) Blood Urea Nitrogen 103 mg/dL (7-18) H Creatinine 3.6 MG/DL (0.55-1.30) H Estimat Glomerular Filtration Rate mL/min (>60) Glucose Level 130 MG/DL (74-106) H Uric Acid 10.4 MG/DL (2.6-7.2) H Calcium Level 8.4 MG/DL (8.5-10.1) L Total Bilirubin 0.4 MG/DL (0.2-1.0) Aspartate Amino Transf (AST/SGOT) 62 U/L (15-37) H Alanine Aminotransferase (ALT/SGPT) 17 U/L (12-78) Alkaline Phosphatase 104 U/L (46-116) Total Creatine Kinase 37 U/L (26-308) Total Protein 7.0 G/DL (6.4-8.2) Albumin 1.7 G/DL (3.4-5.0) L Globulin 5.3 g/dL Albumin/Globulin Ratio 0.3 (1.0-2.7) L Digoxin Level 3.7 NG/ML (0.9-2.0) *H Objective: WDWN female NAD trach in place reduced breath sounds L>>R bilaterally with some rhonchi but improved S1S2 iRRR without MRG NABS nontender no HSM; GT no distention no CC; mild edema nonfocal nonverbal skin and lines reviewed withdrawn Micro: Microbiology Date/Time Source Procedure Growth Status 09/13/17 19:00 Stool Clostridium difficile Toxin Assay - Final Complete Accucheck: 182 MARCY MAJOR Sep 15, 2017 11:13
[2017-09-15] MEDS ORDERED: Cefepime HCl 1 GM in D5W 110 ML IVPB SCH (12:00)
--- NOTE | 2017-09-15 12:29 | General Progress Note ---
Assessment/Plan Problem List: (1) Sepsis ICD Codes: A41.9 - Sepsis, unspecified organism SNOMED: 32212227 (2) Lung metastases ICD Codes: C78.00 - Secondary malignant neoplasm of unspecified lung SNOMED: 17671787 (3) Tracheostomy dependence ICD Codes: Z93.0 - Tracheostomy status SNOMED: 290054862, 974285943 (4) NSTEMI (non-ST elevated myocardial infarction) ICD Codes: I21.4 - Non-ST elevation (NSTEMI) myocardial infarction SNOMED: 626144096 (5) Hypoxia ICD Codes: R09.02 - Hypoxemia SNOMED: 569935621 (6) Shortness of breath ICD Codes: R06.02 - Shortness of breath SNOMED: 236508438 (7) Tongue malignant neoplasm ICD Codes: C02.9 - Malignant neoplasm of tongue, unspecified SNOMED: 929387175 (8) Respiratory failure ICD Codes: J96.90 - Respiratory failure, unspecified, unspecified whether with hypoxia or hypercapnia SNOMED: 715357357 Status: stable, progressing Assessment/Plan iv abx follow up cultures vent support titrate fio2 monitor cxr ivf and albumin as needed renal eval pending ?diuresis kayexylate prn resp rx feeds stress ulcer prophylaxis d/w son critical and guarded poor prognosis Subjective ROS Limited/Unobtainable: No Constitutional: Reports: malaise, weakness HEENT: Reports: no symptoms Cardiovascular: Reports: no symptoms Respiratory: Reports: shortness of breath, sputum Gastrointestinal/Abdominal: Reports: difficulty swallowing Genitourinary: Reports: no symptoms Neurologic/Psychiatric: Reports: pre-existing deficit Endocrine: Reports: no symptoms Hematologic/Lymphatic: Reports: anemia Allergies: Coded Allergies: PENICILLINS (Verified Allergy, Unknown, 07/31/16) All Systems: reviewed and negative except above Subjective doing poorly. still with poor uop. +sob. on 90%fio2. labs noted. worsening renal fxn. Objective Last 24 Hour Vital Signs Date Time Temp Pulse Resp B/P (MAP) Pulse Ox O2 Delivery O2 Flow Rate FiO2 09/15/17 10:48 104 18 100 09/15/17 10:00 107 17 91/36 91 Mechanical Ventilator 90 09/15/17 09:08 106 17 100 09/15/17 09:00 108 17 84/33 92 Mechanical Ventilator 90 09/15/17 08:12 114 81/36 09/15/17 08:00 100 09/15/17 08:00 100.7 114 18 81/32 92 Mechanical Ventilator 100 100.7 09/15/17 08:00 115 09/15/17 07:05 119 16 100 09/15/17 07:00 124 22 81/33 91 Mechanical Ventilator 90 09/15/17 06:09 99.9 09/15/17 06:00 135 22 101/42 91 Mechanical Ventilator 90 09/15/17 05:39 99.9 09/15/17 05:05 134 17 100 09/15/17 05:00 99.9 134 23 120/43 92 Mechanical Ventilator 100 99.9 09/15/17 04:00 90 09/15/17 04:00 130 22 131/44 97 Mechanical Ventilator 90 09/15/17 04:00 111 09/15/17 03:31 124 18 90 09/15/17 03:00 121 22 152/60 95 Mechanical Ventilator 90 09/15/17 02:00 108 24 139/36 94 Mechanical Ventilator 90 09/15/17 01:08 108 24 90 09/15/17 01:00 102 25 129/37 95 Mechanical Ventilator 90 09/15/17 00:00 90 09/15/17 00:00 132 09/15/17 00:00 99.1 105 17 114/49 97 Mechanical Ventilator 90 99.1 09/14/17 23:00 99 17 93/44 97 Mechanical Ventilator 90 09/14/17 22:48 130 23 90 09/14/17 22:00 130 17 107/42 97 Mechanical Ventilator 90 09/14/17 21:22 99 16 90 09/14/17 21:00 114 17 99/48 97 Mechanical Ventilator 90 09/14/17 20:40 98 99/27 09/14/17 20:40 98 99/27 09/14/17 20:00 98.9 98 20 99/23 98 Mechanical Ventilator 90 98.9 09/14/17 20:00 90 09/14/17 20:00 117 09/14/17 19:00 126 17 104/25 97 Mechanical Ventilator 90 09/14/17 18:57 95 19 90 09/14/17 18:00 91 17 88/61 95 Mechanical Ventilator 90 09/14/17 17:13 131 19 90 09/14/17 17:00 124 17 95/31 97 Mechanical Ventilator 90 09/14/17 16:00 90 09/14/17 16:00 115 09/14/17 16:00 98.7 124 19 98/40 97 Mechanical Ventilator 90 98.7 09/14/17 15:00 135 18 85/38 97 Mechanical Ventilator 90 09/14/17 14:52 137 22 90 09/14/17 14:30 99.0 99.0 09/14/17 14:00 100.8 09/14/17 14:00 129 18 100/36 97 Mechanical Ventilator 90 09/14/17 13:30 100.8 128 100.8 09/14/17 13:04 130 18 90 09/14/17 13:00 129 18 77/37 97 Mechanical Ventilator 90 Intake and Output 09/14/17 09/15/17 19:00 07:00 Intake Total 360 ml 270 ml Output Total 280 ml 315 ml Balance 80 ml -45 ml Tube Feeding 60 ml 160 ml Other 300 ml 110 ml Output Urine Total 180 ml 165 ml Stool Total 100 ml 150 ml # Bowel Movements 3 3 Laboratory Tests 09/15/17 06:20: White Blood Count 12.8H, Red Blood Count 4.03L, Hemoglobin 11.7L, Hematocrit 35.4L, Mean Corpuscular Volume 88, Mean Corpuscular Hemoglobin 29.1, Mean Corpuscular Hemoglobin Concent 33.1, Red Cell Distribution Width 13.6, Platelet Count 247, Mean Platelet Volume 7.7, Neutrophils (%) (Auto) , Lymphocytes (%) ( Auto) , Monocytes (%) (Auto) , Eosinophils (%) (Auto) , Basophils (%) (Auto) , Differential Total Cells Counted 100, Neutrophils % (Manual) 65, Lymphocytes % ( Manual) 6L, Monocytes % (Manual) 2, Eosinophils % (Manual) 0, Basophils % ( Manual) 0, Band Neutrophils 27H, Platelet Estimate Adequate, Platelet Morphology Normal, Hypochromasia 1+, Sodium Level 141, Potassium Level 4.6, Chloride Level 109H, Carbon Dioxide Level 21, Anion Gap 11, Blood Urea Nitrogen 103H, Creatinine 3.6H, Estimat Glomerular Filtration Rate , Glucose Level 130H, Uric Acid 10.4H, Calcium Level 8.4L, Total Bilirubin 0.4, Aspartate Amino Transf (AST/SGOT) 62H, Alanine Aminotransferase (ALT/SGPT) 17, Alkaline Phosphatase 104, Total Creatine Kinase 37, Total Protein 7.0, Albumin 1.7L, Globulin 5.3, Albumin/Globulin Ratio 0.3L, Digoxin Level 3.7*H Height (Feet): 4 Height (Inches): 10.00 Weight (Pounds): 121 Objective General Appearance: WD/WN, alert/opens eyes Neck: supple Cardiovascular: normal rate, regular rhythm Respiratory/Chest: chest wall non-tender, lungs with rhonchi tony Abdomen: normal bowel sounds, non tender, soft, no organomegaly Neurologic: disoriented CHRISTINA HAMMOND Sep 15, 2017 12:29
--- NOTE | 2017-09-15 13:58 | General Progress Note ---
Assessment/Plan Assessment/Plan Assessment - GT site leak - Diarrhea, C Diff (-) - afib, RVR - Metastatic H&N CA - Resp failure - Renal failure - Poor Px Recommendations - TF at 20 cc - follow labs and exam - GT site care - Reglan Subjective ROS Limited/Unobtainable: No Allergies: Coded Allergies: PENICILLINS (Verified Allergy, Unknown, 07/31/16) Objective Last 24 Hour Vital Signs Date Time Temp Pulse Resp B/P (MAP) Pulse Ox O2 Delivery O2 Flow Rate FiO2 09/15/17 13:00 100 18 90/34 96 Mechanical Ventilator 90 09/15/17 12:40 95 17 100 09/15/17 12:00 98.9 95 21 90/32 92 Mechanical Ventilator 100 98.9 09/15/17 12:00 100 09/15/17 12:00 95 09/15/17 11:00 105 17 111/43 91 Mechanical Ventilator 90 09/15/17 10:48 104 18 100 09/15/17 10:00 107 17 91/36 91 Mechanical Ventilator 90 09/15/17 09:08 106 17 100 09/15/17 09:00 108 17 84/33 92 Mechanical Ventilator 90 09/15/17 08:12 114 81/36 09/15/17 08:00 100 09/15/17 08:00 100.7 114 18 81/32 92 Mechanical Ventilator 100 100.7 09/15/17 08:00 115 09/15/17 07:05 119 16 100 09/15/17 07:00 124 22 81/33 91 Mechanical Ventilator 90 09/15/17 06:09 99.9 09/15/17 06:00 135 22 101/42 91 Mechanical Ventilator 90 09/15/17 05:39 99.9 09/15/17 05:05 134 17 100 09/15/17 05:00 99.9 134 23 120/43 92 Mechanical Ventilator 100 99.9 09/15/17 04:00 90 09/15/17 04:00 130 22 131/44 97 Mechanical Ventilator 90 09/15/17 04:00 111 09/15/17 03:31 124 18 90 09/15/17 03:00 121 22 152/60 95 Mechanical Ventilator 90 09/15/17 02:00 108 24 139/36 94 Mechanical Ventilator 90 09/15/17 01:08 108 24 90 09/15/17 01:00 102 25 129/37 95 Mechanical Ventilator 90 09/15/17 00:00 90 09/15/17 00:00 132 09/15/17 00:00 99.1 105 17 114/49 97 Mechanical Ventilator 90 99.1 09/14/17 23:00 99 17 93/44 97 Mechanical Ventilator 90 09/14/17 22:48 130 23 90 09/14/17 22:00 130 17 107/42 97 Mechanical Ventilator 90 09/14/17 21:22 99 16 90 09/14/17 21:00 114 17 99/48 97 Mechanical Ventilator 90 09/14/17 20:40 98 99/27 09/14/17 20:40 98 99/27 09/14/17 20:00 98.9 98 20 99/23 98 Mechanical Ventilator 90 98.9 09/14/17 20:00 90 09/14/17 20:00 117 09/14/17 19:00 126 17 104/25 97 Mechanical Ventilator 90 09/14/17 18:57 95 19 90 09/14/17 18:00 91 17 88/61 95 Mechanical Ventilator 90 09/14/17 17:13 131 19 90 09/14/17 17:00 124 17 95/31 97 Mechanical Ventilator 90 09/14/17 16:00 90 09/14/17 16:00 115 09/14/17 16:00 98.7 124 19 98/40 97 Mechanical Ventilator 90 98.7 09/14/17 15:00 135 18 85/38 97 Mechanical Ventilator 90 09/14/17 14:52 137 22 90 09/14/17 14:30 99.0 99.0 09/14/17 14:00 100.8 09/14/17 14:00 129 18 100/36 97 Mechanical Ventilator 90 Intake and Output 09/14/17 09/15/17 19:00 07:00 Intake Total 360 ml 270 ml Output Total 280 ml 315 ml Balance 80 ml -45 ml Tube Feeding 60 ml 160 ml Other 300 ml 110 ml Output Urine Total 180 ml 165 ml Stool Total 100 ml 150 ml # Bowel Movements 3 3 Laboratory Tests 09/15/17 06:20: White Blood Count 12.8H, Red Blood Count 4.03L, Hemoglobin 11.7L, Hematocrit 35.4L, Mean Corpuscular Volume 88, Mean Corpuscular Hemoglobin 29.1, Mean Corpuscular Hemoglobin Concent 33.1, Red Cell Distribution Width 13.6, Platelet Count 247, Mean Platelet Volume 7.7, Neutrophils (%) (Auto) , Lymphocytes (%) ( Auto) , Monocytes (%) (Auto) , Eosinophils (%) (Auto) , Basophils (%) (Auto) , Differential Total Cells Counted 100, Neutrophils % (Manual) 65, Lymphocytes % ( Manual) 6L, Monocytes % (Manual) 2, Eosinophils % (Manual) 0, Basophils % ( Manual) 0, Band Neutrophils 27H, Platelet Estimate Adequate, Platelet Morphology Normal, Hypochromasia 1+, Sodium Level 141, Potassium Level 4.6, Chloride Level 109H, Carbon Dioxide Level 21, Anion Gap 11, Blood Urea Nitrogen 103H, Creatinine 3.6H, Estimat Glomerular Filtration Rate , Glucose Level 130H, Uric Acid 10.4H, Calcium Level 8.4L, Total Bilirubin 0.4, Aspartate Amino Transf (AST/SGOT) 62H, Alanine Aminotransferase (ALT/SGPT) 17, Alkaline Phosphatase 104, Total Creatine Kinase 37, Total Protein 7.0, Albumin 1.7L, Globulin 5.3, Albumin/Globulin Ratio 0.3L, Digoxin Level 3.7*H Height (Feet): 4 Height (Inches): 10.00 Weight (Pounds): 121 General Appearance: lethargic EENT: normal ENT inspection Neck: supple Cardiovascular: normal rate Respiratory/Chest: decreased breath sounds Abdomen: normal bowel sounds, non tender, soft Extremities: non-tender SALVADOR VELASQUEZ Sep 15, 2017 13:58
[2017-09-15 18:27] LABS: COLOR,URINE YELLOW
[2017-09-15 18:28] LABS: APPEARANCE,URINE CLOUDY; BILIRUBIN, URINE NEGATIVE (NEGATIVE); GLUCOSE, URINE (UA) NEGATIVE (NEGATIVE); KETONES,URINE NEGATIVE (NEGATIVE); LEUKOCYTE ESTERASE ,URINE 3+ (NEGATIVE); NITRITE,URINE NEGATIVE (NEGATIVE); PROTEIN,URINE 3+ (NEGATIVE); UROBILINOGEN,URINE NORMAL MG/DL (0.0-1.0)
[2017-09-15] MEDS: Dyna-Hex 2% Top Sol 2oz TOPIC SCH (20:13)
--- NOTE | 2017-09-15 22:45 | Consultation ---
DATE OF CONSULTATION: 09/15/2017 NEPHROLOGY CONSULTATION CONSULTING PHYSICIAN: Candido Contreras M.D. REFERRING PHYSICIAN: Rico Madrigal M.D. REASON FOR CONSULTATION: Acute kidney injury. HISTORY OF PRESENT ILLNESS: The patient has been in the ICU with respiratory failure. She is an 82-year-old lady with head and neck cancer, metastatic to lung and history of tracheostomy. She has had prior GI bleeding, stomach ulceration, gastrostomy tube, and recurrent respiratory failure. 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 She has had atrial fibrillation with rapid ventricular response intermittently and the patient has no prior history of kidney disease or diabetes. PAST SURGICAL HISTORY: Include tracheostomy, gastrostomy, and abdominal surgery for perforated ulcer. She has had radiation to the head and neck. CURRENT MEDICATIONS: Include cefepime, levofloxacin, meropenem discontinued, acetaminophen, aspirin, chlorhexidine, Keppra, levothyroxine, metoclopramide, metoprolol, midodrine, Protonix, and vitamin A and D topically. SYSTEM REVIEW: The patient is unable. PHYSICAL EXAMINATION: GENERAL: The patient is lying in bed, on the ventilator. VITAL SIGNS: Temperature 98.9 degrees axillary, pulse 99, respirations 18, blood pressure 95/41, and O2 saturation 97% on 100% oxygen. HEENT: Her eyes are closed as is her mouth. She has hard submandibular adenopathy. NECK: Tracheostomy. HEART: Rhythm is regular. I hear no murmurs. LUNGS: Few rhonchi. ABDOMEN: Soft. Gastrostomy is in place. Liver and spleen not palpable. EXTREMITIES: Trace edema. NEUROLOGIC: She is unresponsive at this time. LABORATORY AND DIAGNOSTIC DATA: Pertinent labs on 09/09/2017, BUN 31 and creatinine 0.9, this has worsened today at 103 and 3.6. Sodium 141, potassium 4.6, chloride 109, and CO2 is 21. Albumin is 1.7. Uric acid 10.4. Total CK 37. Troponin of 0.38 was earlier as high as 5.083. IMPRESSION: The patient has acute kidney injury in the setting of respiratory failure, high BNP, and multiorgan failure. She has very low serum albumin and heavy proteinuria on one urinalysis. She has been oliguric today, only 57 mL in whereas I's and O's over the last 24 hours, 630 in and 585 out including urine of 335 and stool of 250. The patient has low serum albumin and does not appear to have anasarca. It is possible that she has nephrotic syndrome and she may have prerenal azotemia despite the positive fluid balance over the last week. PLAN: We will check her urine electrolytes. We will hydrate the patient and observe her renal function and response to hydration. She has severe respiratory failure, pleural effusions, and poor prognosis. If she does go into pulmonary edema from fluid administration, she is really not a candidate for hemodialysis, which would likely put her at risk for sudden . Her condition is guarded and grave. Thank you. Candido Contreras M.D. DR: BETTY JOB#: [id number] CC:
[2017-09-15] MEDS ORDERED: Tubing IV Secondary IV ONE (22:47)
[2017-09-16] VITALS (24 sets, daily range): BP systolic 75–124; BP diastolic 23–59
--- NOTE | 2017-09-16 02:30 | Progress Note ---
DATE: 09/15/2017 CARDIOLOGY PROGRESS NOTE SUBJECTIVE: The patient's condition remains critical. Prognosis guarded. She remains on full ventilator support via tracheostomy. Urine output is poor. Renal function worsening. Monitored rhythm sinus with paroxysms of atrial fibrillation, occasionally with rapid ventricular response. PHYSICAL EXAMINATION: VITAL SIGNS: Blood pressure 91/36, pulse 107, respiratory rate 17, and afebrile. GENERAL: Poorly responsive. LUNGS: Coarse rhonchi. Decreased breath sounds at the left. HEART: Irregularly irregular rhythm. Normal S1 and S2. ABDOMEN: Soft. G-tube intact. EXTREMITIES: Trace dependent edema. LABORATORY AND DIAGNOSTIC DATA: White count 12.8 and hemoglobin 11.7. BUN 103, creatinine 3.6, and potassium 4.6. Albumin 1.7. Chest x-ray today revealed interval worsening of bilateral aeration. IMPRESSION: 1. Respiratory failure. 2. 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 3. Postobstructive pneumonia. 4. Acute renal failure. 5. Paroxysmal atrial fibrillation. 6. Acute on chronic diastolic congestive heart failure. 7. Condition is critical. 8. Prognosis is grave. PLAN: 1. Remain off pressors. 2. Continue midodrine. 3. Antimicrobials. 4. Ventilator support. 5. Cautious hydration. 6. Avoid diuretics. 7. Protein supplements. 8. Maintain beta-blockade and titrate for optimal rate control. Chi Bhatti M.D. DR: MYRNA JOB#: [id number] CC:
[2017-09-16 05:02] LABS: ANION GAP 11 mmol/L (5-15); BLOOD UREA NITROGEN 117 mg/dL (7-18); CALCIUM 8.7 MG/DL (8.5-10.1); CARBON DIOXIDE 21 MMOL/L (21-32); CHLORIDE 107 MMOL/L (98-107); CREATININE 3.9 MG/DL (0.55-1.30); POTASSIUM 4.3 MMOL/L (3.5-5.1); SODIUM 139 MMOL/L (136-145)
--- NOTE | 2017-09-16 06:29 | Critical Care Progress Note ---
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 poor gas exchange PLAN care noted give bicarb increase rate on vent IV antibiotics reviewed respiratory care and suction Ventilatory settings as is and adjust PEEP; back to 100% fio2 reviewed med profile supportive care as is suction and maintain and monitor for change prognosis poor advanced directives; called left for son to discuss options but all are palliative as cancer has extended d/w nursing medications/laboratory data/nursing notes/ICU care reviewed in detail note reviewed and edited care discussed with RN and RT ICU time spent 38 minutes Critical Care - Subjective Interval Events: doing poorly required bagging now significantly acidotic ROS Limited/Unobtainable: Yes Condition: critical EKG Rhythm: Atrial Fibrillation Residuals: minimal Tube Feeding Tolerated: yes I&O: Intake and Output 09/15/17 09/16/17 19:00 07:00 Intake Total 735 ml 1760 ml Output Total 62 ml 50 ml Balance 673 ml 1710 ml IV Total 485 ml 1500 ml Tube Feeding 250 ml 200 ml Other 60 ml Output Urine Total 62 ml 50 ml # Bowel Movements 103 3 Critical Care - Objective Last 24 Hour Vital Signs Date Time Temp Pulse Resp B/P (MAP) Pulse Ox O2 Delivery O2 Flow Rate FiO2 09/16/17 05:00 101 18 89/31 92 Mechanical Ventilator 100 09/16/17 04:36 100 09/16/17 04:36 88 20 100 09/16/17 04:00 104 09/16/17 04:00 100 09/16/17 04:00 98.9 91 18 100/23 87 Mechanical Ventilator 100 98.9 09/16/17 03:00 95 18 95/48 93 Mechanical Ventilator 100 09/16/17 02:56 88 20 100 09/16/17 02:00 95 18 89/47 91 Mechanical Ventilator 100 09/16/17 01:08 96 21 100 09/16/17 01:00 88 18 99/27 92 Mechanical Ventilator 100 09/16/17 00:00 101 09/16/17 00:00 99.1 92 18 87/35 92 Mechanical Ventilator 100 99.1 4/14/18 23:00 95 18 110/36 92 Mechanical Ventilator 100 09/15/17 22:41 97 21 100 09/15/17 22:00 95 18 103/30 92 Mechanical Ventilator 100 09/15/17 21:19 91 19 100 09/15/17 21:00 98 21 92/32 93 Mechanical Ventilator 100 09/15/17 21:00 97 92/32 09/15/17 20:00 100 09/15/17 20:00 99.2 94 18 91/36 93 Mechanical Ventilator 100 99.2 09/15/17 20:00 96 09/15/17 19:39 94 22 100 09/15/17 19:00 96 20 100/30 93 Mechanical Ventilator 100 09/15/17 18:00 95 20 83/29 93 Mechanical Ventilator 100 09/15/17 17:09 96 19 100 09/15/17 17:00 96 22 88/45 93 Mechanical Ventilator 100 09/15/17 16:00 100 09/15/17 16:00 102 09/15/17 16:00 98.7 101 19 88/47 92 Mechanical Ventilator 100 98.7 09/15/17 15:00 99 18 95/41 97 Mechanical Ventilator 100 09/15/17 14:59 99 17 100 09/15/17 14:00 93 17 90/42 95 Mechanical Ventilator 90 09/15/17 13:00 100 18 90/34 96 Mechanical Ventilator 90 09/15/17 12:40 95 17 100 09/15/17 12:00 98.9 95 21 90/32 92 Mechanical Ventilator 100 98.9 09/15/17 12:00 100 09/15/17 12:00 95 09/15/17 11:00 105 17 111/43 91 Mechanical Ventilator 90 09/15/17 10:48 104 18 100 09/15/17 10:00 107 17 91/36 91 Mechanical Ventilator 90 09/15/17 09:08 106 17 100 09/15/17 09:00 108 17 84/33 92 Mechanical Ventilator 90 09/15/17 08:12 114 81/36 09/15/17 08:00 100 09/15/17 08:00 100.7 114 18 81/32 92 Mechanical Ventilator 100 100.7 09/15/17 08:00 115 09/15/17 07:05 119 16 100 09/15/17 07:00 124 22 81/33 91 Mechanical Ventilator 90 Labs: Laboratory Tests Test 09/15/17 17:30 09/16/17 03:30 09/16/17 03:50 09/16/17 04:25 Urine Color Yellow Urine Appearance Cloudy Urine pH 5.0 (4.5-8.0) Urine Specific [place] 1.020 (1.005-1.035) Urine Protein 3+ (NEGATIVE) H Urine Glucose (UA) Negative (NEGATIVE) Urine Ketones Negative (NEGATIVE) Urine Occult Blood 4+ (NEGATIVE) H Urine Nitrite Negative (NEGATIVE) Urine Bilirubin Negative (NEGATIVE) Urine Urobilinogen Normal MG/DL (0.0-1.0) Urine Leukocyte Esterase 3+ (NEGATIVE) H Urine RBC 5-10 /HPF (0 - 2) H Urine WBC 10-15 /HPF (0 - 2) H Urine Squamous Epithelial Cells Moderate /LPF (NONE/OCC) H Urine Bacteria Many /HPF (NONE) H Urine Yeast Many /HPF (NONE) H Urine Osmolality 340 mOsm/kg (429-449) L 348 mOsm/kg (429-449) L Urine Random Sodium 23 mmol/L (20-110) 15 mmol/L (20-110) L Urine Creatinine 132.2 MG/DL (30.0-125.0) H 142.1 MG/DL (30.0-125.0) H Urine Random Total Protein 196 MG/DL (< 11.9) H Sodium Level 139 MMOL/L (136-145) Potassium Level 4.3 MMOL/L (3.5-5.1) Chloride Level 107 MMOL/L (98-107) Carbon Dioxide Level 21 MMOL/L (21-32) Anion Gap 11 mmol/L (5-15) Blood Urea Nitrogen 117 mg/dL (7-18) H Creatinine 3.9 MG/DL (0.55-1.30) H Estimat Glomerular Filtration Rate mL/min (>60) Glucose Level 121 MG/DL (74-106) H Calcium Level 8.7 MG/DL (8.5-10.1) Arterial Blood pH 7.161 (7.350-7.450) Arterial Blood Partial Pressure CO2 53.9 mmHg (35.0-45.0) H Arterial Blood Partial Pressure O2 46.0 mmHg (75.0-100.0) Arterial Blood HCO3 18.9 mmol/L (22.0-26.0) L Arterial Blood Oxygen Saturation 50.0 % (92.0-98.0) L Arterial Blood Base Excess -9.6 Talha Test Positive Objective: WDWN female NAD trach in place reduced breath sounds L>>R bilaterally coarse S1S2 iRRR without MRG; tachy at times NABS nontender no HSM; GT no distention no CC; mild edema nonfocal nonverbal skin and lines reviewed withdrawn and in some distress Micro: Microbiology Date/Time Source Procedure Growth Status 09/13/17 19:00 Stool Clostridium difficile Toxin Assay - Final Complete Accucheck: 182 MARCY MAJOR Sep 16, 2017 06:29
[2017-09-16] MEDS ORDERED: Sodium Bicarbonate 50ml Carp IV ONE (06:30)
--- NOTE | 2017-09-16 08:08 | General Progress Note ---
Assessment/Plan Assessment/Plan Assessment - GT site leak - Diarrhea, C Diff (-) - afib, RVR - Metastatic H&N CA - Resp failure - Renal failure - Poor Px Recommendations - GT was adjusted today, try feeding again - follow labs and exam - GT site care - Reglan Subjective ROS Limited/Unobtainable: No Allergies: Coded Allergies: PENICILLINS (Verified Allergy, Unknown, 07/31/16) Objective Last 24 Hour Vital Signs Date Time Temp Pulse Resp B/P (MAP) Pulse Ox O2 Delivery O2 Flow Rate FiO2 09/16/17 07:00 90 21 93/30 88 Mechanical Ventilator 100 09/16/17 06:35 107 25 100 09/16/17 06:00 103 21 100/29 90 Mechanical Ventilator 100 09/16/17 05:00 101 18 89/31 92 Mechanical Ventilator 100 09/16/17 04:36 100 09/16/17 04:36 88 20 100 09/16/17 04:00 104 09/16/17 04:00 100 09/16/17 04:00 98.9 91 18 100/23 87 Mechanical Ventilator 100 98.9 09/16/17 03:00 95 18 95/48 93 Mechanical Ventilator 100 09/16/17 02:56 88 20 100 09/16/17 02:00 95 18 89/47 91 Mechanical Ventilator 100 09/16/17 01:08 96 21 100 09/16/17 01:00 88 18 99/27 92 Mechanical Ventilator 100 09/16/17 00:00 101 09/16/17 00:00 99.1 92 18 87/35 92 Mechanical Ventilator 100 99.1 09/15/17 23:00 95 18 110/36 92 Mechanical Ventilator 100 09/15/17 22:41 97 21 100 09/15/17 22:00 95 18 103/30 92 Mechanical Ventilator 100 09/15/17 21:19 91 19 100 09/15/17 21:00 98 21 92/32 93 Mechanical Ventilator 100 09/15/17 21:00 97 92/32 09/15/17 20:00 100 09/15/17 20:00 99.2 94 18 91/36 93 Mechanical Ventilator 100 99.2 09/15/17 20:00 96 09/15/17 19:39 94 22 100 09/15/17 19:00 96 20 100/30 93 Mechanical Ventilator 100 09/15/17 18:00 95 20 83/29 93 Mechanical Ventilator 100 09/15/17 17:09 96 19 100 09/15/17 17:00 96 22 88/45 93 Mechanical Ventilator 100 09/15/17 16:00 100 09/15/17 16:00 102 09/15/17 16:00 98.7 101 19 88/47 92 Mechanical Ventilator 100 98.7 09/15/17 15:00 99 18 95/41 97 Mechanical Ventilator 100 09/15/17 14:59 99 17 100 09/15/17 14:00 93 17 90/42 95 Mechanical Ventilator 90 09/15/17 13:00 100 18 90/34 96 Mechanical Ventilator 90 09/15/17 12:40 95 17 100 09/15/17 12:00 98.9 95 21 90/32 92 Mechanical Ventilator 100 98.9 09/15/17 12:00 100 09/15/17 12:00 95 09/15/17 11:00 105 17 111/43 91 Mechanical Ventilator 90 09/15/17 10:48 104 18 100 09/15/17 10:00 107 17 91/36 91 Mechanical Ventilator 90 09/15/17 09:08 106 17 100 09/15/17 09:00 108 17 84/33 92 Mechanical Ventilator 90 09/15/17 08:12 114 81/36 Intake and Output 09/15/17 09/16/17 19:00 07:00 Intake Total 735 ml 1910 ml Output Total 62 ml 55 ml Balance 673 ml 1855 ml IV Total 485 ml 1650 ml Tube Feeding 250 ml 200 ml Other 60 ml Output Urine Total 62 ml 55 ml # Bowel Movements 103 63 Laboratory Tests 09/15/17 17:30: Urine Color Yellow, Urine Appearance Cloudy, Urine pH 5.0, Urine Specific [place] 1.020, Urine Protein 3+H, Urine Glucose (UA) Negative, Urine Ketones Negative, Urine Occult Blood 4+H, Urine Nitrite Negative, Urine Bilirubin Negative, Urine Urobilinogen Normal, Urine Leukocyte Esterase 3+H, Urine RBC 5- 10H, Urine WBC 10-15H, Urine Squamous Epithelial Cells ModerateH, Urine Bacteria ManyH, Urine Yeast ManyH, Urine Osmolality 340L, Urine Random Sodium 23 , Urine Creatinine 132.2H 09/16/17 03:30: Urine Osmolality 348L, Urine Random Sodium 15L, Urine Creatinine 142.1H, Urine Random Total Protein 196H 09/16/17 03:50: Sodium Level 139, Potassium Level 4.3, Chloride Level 107, Carbon Dioxide Level 21, Anion Gap 11, Blood Urea Nitrogen 117H, Creatinine 3.9H, Estimat Glomerular Filtration Rate , Glucose Level 121H, Calcium Level 8.7 09/16/17 04:25: Arterial Blood pH 7.161*L, Arterial Blood Partial Pressure CO2 53.9H, Arterial Blood Partial Pressure O2 46.0*L, Arterial Blood HCO3 18.9L, Arterial Blood Oxygen Saturation 50.0L, Arterial Blood Base Excess -9.6, Talha Test Positive Height (Feet): 4 Height (Inches): 10.00 Weight (Pounds): 121 General Appearance: no apparent distress EENT: normal ENT inspection Neck: supple Cardiovascular: normal rate Respiratory/Chest: decreased breath sounds Abdomen: normal bowel sounds, non tender, soft Extremities: non-tender SALVADOR VELASQUEZ Sep 16, 2017 08:08
[2017-09-16] MEDS: Metoprolol Tartrate 50mg tab GT SCH ×2 (09:00→20:35)
[2017-09-16] MEDS: levETIRAcetam 500mg/5ml Liquid GT SCH ×2 (09:15→20:35)
[2017-09-16] MEDS: Midodrine 10mg tab GT SCH ×3 (09:16→18:46)
[2017-09-16] MEDS: Pantoprazole Inj IVP SCH (09:16)
[2017-09-16] MEDS: Vitamin A&D Oint 2oz Tube TOPIC SCH ×2 (09:16→18:47)
[2017-09-16] MEDS: Aspirin Baby 81mg NG SCH (09:16)
--- NOTE | 2017-09-16 09:16 | General Progress Note ---
Assessment/Plan Problem List: (1) Sepsis ICD Codes: A41.9 - Sepsis, unspecified organism SNOMED: 31858995 (2) Lung metastases ICD Codes: C78.00 - Secondary malignant neoplasm of unspecified lung SNOMED: 20655701 (3) Tracheostomy dependence ICD Codes: Z93.0 - Tracheostomy status SNOMED: 825793846, 381457716 (4) NSTEMI (non-ST elevated myocardial infarction) ICD Codes: I21.4 - Non-ST elevation (NSTEMI) myocardial infarction SNOMED: 173155012 (5) Hypoxia ICD Codes: R09.02 - Hypoxemia SNOMED: 112375319 (6) Shortness of breath ICD Codes: R06.02 - Shortness of breath SNOMED: 400516573 (7) Tongue malignant neoplasm ICD Codes: C02.9 - Malignant neoplasm of tongue, unspecified SNOMED: 551747649 (8) Respiratory failure ICD Codes: J96.90 - Respiratory failure, unspecified, unspecified whether with hypoxia or hypercapnia SNOMED: 351442809 Status: stable, progressing Assessment/Plan iv abx follow up cultures vent support titrate fio2 monitor cxr ivf and albumin as needed renal eval pending ?diuresis kayexylate prn resp rx feeds stress ulcer prophylaxis d/w son aware of poor prognosis agrees to dnr hospice eval tomorrow critical and guarded poor prognosis Subjective ROS Limited/Unobtainable: Yes Constitutional: Reports: malaise, weakness HEENT: Reports: no symptoms Cardiovascular: Reports: no symptoms Respiratory: Reports: shortness of breath Gastrointestinal/Abdominal: Reports: difficulty swallowing Genitourinary: Reports: no symptoms Neurologic/Psychiatric: Reports: no symptoms Endocrine: Reports: no symptoms Hematologic/Lymphatic: Reports: no symptoms Allergies: Coded Allergies: PENICILLINS (Verified Allergy, Unknown, 07/31/16) All Systems: reviewed and negative except above Subjective doing poorly. still with poor uop. +sob. on 90%fio2. labs noted. worsening renal fxn. Objective Last 24 Hour Vital Signs Date Time Temp Pulse Resp B/P (MAP) Pulse Ox O2 Delivery O2 Flow Rate FiO2 09/16/17 08:00 100 09/16/17 07:00 90 21 93/30 88 Mechanical Ventilator 100 09/16/17 06:35 107 25 100 09/16/17 06:00 103 21 100/29 90 Mechanical Ventilator 100 09/16/17 05:00 101 18 89/31 92 Mechanical Ventilator 100 09/16/17 04:36 100 09/16/17 04:36 88 20 100 09/16/17 04:00 104 09/16/17 04:00 100 09/16/17 04:00 98.9 91 18 100/23 87 Mechanical Ventilator 100 98.9 09/16/17 03:00 95 18 95/48 93 Mechanical Ventilator 100 09/16/17 02:56 88 20 100 09/16/17 02:00 95 18 89/47 91 Mechanical Ventilator 100 09/16/17 01:08 96 21 100 09/16/17 01:00 88 18 99/27 92 Mechanical Ventilator 100 09/16/17 00:00 101 09/16/17 00:00 99.1 92 18 87/35 92 Mechanical Ventilator 100 99.1 09/15/17 23:00 95 18 110/36 92 Mechanical Ventilator 100 09/15/17 22:41 97 21 100 09/15/17 22:00 95 18 103/30 92 Mechanical Ventilator 100 09/15/17 21:19 91 19 100 09/15/17 21:00 98 21 92/32 93 Mechanical Ventilator 100 09/15/17 21:00 97 92/32 09/15/17 20:00 100 09/15/17 20:00 99.2 94 18 91/36 93 Mechanical Ventilator 100 99.2 09/15/17 20:00 96 09/15/17 19:39 94 22 100 09/15/17 19:00 96 20 100/30 93 Mechanical Ventilator 100 09/15/17 18:00 95 20 83/29 93 Mechanical Ventilator 100 09/15/17 17:09 96 19 100 09/15/17 17:00 96 22 88/45 93 Mechanical Ventilator 100 09/15/17 16:00 100 09/15/17 16:00 102 09/15/17 16:00 98.7 101 19 88/47 92 Mechanical Ventilator 100 98.7 09/15/17 15:00 99 18 95/41 97 Mechanical Ventilator 100 09/15/17 14:59 99 17 100 09/15/17 14:00 93 17 90/42 95 Mechanical Ventilator 90 09/15/17 13:00 100 18 90/34 96 Mechanical Ventilator 90 09/15/17 12:40 95 17 100 09/15/17 12:00 98.9 95 21 90/32 92 Mechanical Ventilator 100 98.9 09/15/17 12:00 100 09/15/17 12:00 95 09/15/17 11:00 105 17 111/43 91 Mechanical Ventilator 90 09/15/17 10:48 104 18 100 09/15/17 10:00 107 17 91/36 91 Mechanical Ventilator 90 Intake and Output 09/15/17 09/16/17 19:00 07:00 Intake Total 735 ml 1910 ml Output Total 62 ml 55 ml Balance 673 ml 1855 ml IV Total 485 ml 1650 ml Tube Feeding 250 ml 200 ml Other 60 ml Output Urine Total 62 ml 55 ml # Bowel Movements 103 63 Laboratory Tests 09/15/17 17:30: Urine Color Yellow, Urine Appearance Cloudy, Urine pH 5.0, Urine Specific [place] 1.020, Urine Protein 3+H, Urine Glucose (UA) Negative, Urine Ketones Negative, Urine Occult Blood 4+H, Urine Nitrite Negative, Urine Bilirubin Negative, Urine Urobilinogen Normal, Urine Leukocyte Esterase 3+H, Urine RBC 5- 10H, Urine WBC 10-15H, Urine Squamous Epithelial Cells ModerateH, Urine Bacteria ManyH, Urine Yeast ManyH, Urine Osmolality 340L, Urine Random Sodium 23 , Urine Creatinine 132.2H 09/16/17 03:30: Urine Osmolality 348L, Urine Random Sodium 15L, Urine Creatinine 142.1H, Urine Random Total Protein 196H 09/16/17 03:50: Sodium Level 139, Potassium Level 4.3, Chloride Level 107, Carbon Dioxide Level 21, Anion Gap 11, Blood Urea Nitrogen 117H, Creatinine 3.9H, Estimat Glomerular Filtration Rate , Glucose Level 121H, Calcium Level 8.7 09/16/17 04:25: Arterial Blood pH 7.161*L, Arterial Blood Partial Pressure CO2 53.9H, Arterial Blood Partial Pressure O2 46.0*L, Arterial Blood HCO3 18.9L, Arterial Blood Oxygen Saturation 50.0L, Arterial Blood Base Excess -9.6, Talha Test Positive 09/16/17 08:30: Arterial Blood pH 7.306L, Arterial Blood Partial Pressure CO2 39.3, Arterial Blood Partial Pressure O2 52.0L, Arterial Blood HCO3 19.2L, Arterial Blood Oxygen Saturation 85.1L, Arterial Blood Base Excess -6.6, Talha Test Positive Height (Feet): 4 Height (Inches): 10.00 Weight (Pounds): 121 Objective General Appearance: WD/WN, alert/opens eyes Neck: supple Cardiovascular: normal rate, regular rhythm Respiratory/Chest: chest wall non-tender, lungs with rhonchi tony Abdomen: normal bowel sounds, non tender, soft, no organomegaly Neurologic: disoriented CHRISTINA HAMMOND Sep 16, 2017 09:16
--- NOTE | 2017-09-16 10:12 | Infectious Diseases Prog Note ---
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 Acute renal failure DNR/ DNI status P: Continue Ceftazidime Will have hospice evaluation Subjective ROS Limited/Unobtainable: Yes Cardiovascular: Reports: other - hypotensive Allergies: Coded Allergies: PENICILLINS (Verified Allergy, Unknown, 07/31/16) Objective Vital Signs Last 24 Hour Vital Signs Date Time Temp Pulse Resp B/P (MAP) Pulse Ox O2 Delivery O2 Flow Rate FiO2 09/16/17 09:00 98 86/27 09/16/17 08:30 92 24 100 09/16/17 08:00 100 09/16/17 08:00 93 09/16/17 07:00 90 21 93/30 88 Mechanical Ventilator 100 09/16/17 06:35 107 25 100 09/16/17 06:00 103 21 100/29 90 Mechanical Ventilator 100 09/16/17 05:00 101 18 89/31 92 Mechanical Ventilator 100 09/16/17 04:36 100 09/16/17 04:36 88 20 100 09/16/17 04:00 104 09/16/17 04:00 100 09/16/17 04:00 98.9 91 18 100/23 87 Mechanical Ventilator 100 98.9 09/16/17 03:00 95 18 95/48 93 Mechanical Ventilator 100 09/16/17 02:56 88 20 100 09/16/17 02:00 95 18 89/47 91 Mechanical Ventilator 100 09/16/17 01:08 96 21 100 09/16/17 01:00 88 18 99/27 92 Mechanical Ventilator 100 09/16/17 00:00 101 09/16/17 00:00 99.1 92 18 87/35 92 Mechanical Ventilator 100 99.1 09/15/17 23:00 95 18 110/36 92 Mechanical Ventilator 100 09/15/17 22:41 97 21 100 09/15/17 22:00 95 18 103/30 92 Mechanical Ventilator 100 09/15/17 21:19 91 19 100 09/15/17 21:00 98 21 92/32 93 Mechanical Ventilator 100 09/15/17 21:00 97 92/32 09/15/17 20:00 100 09/15/17 20:00 99.2 94 18 91/36 93 Mechanical Ventilator 100 99.2 09/15/17 20:00 96 09/15/17 19:39 94 22 100 09/15/17 19:00 96 20 100/30 93 Mechanical Ventilator 100 09/15/17 18:00 95 20 83/29 93 Mechanical Ventilator 100 09/15/17 17:09 96 19 100 09/15/17 17:00 96 22 88/45 93 Mechanical Ventilator 100 09/15/17 16:00 100 09/15/17 16:00 102 09/15/17 16:00 98.7 101 19 88/47 92 Mechanical Ventilator 100 98.7 09/15/17 15:00 99 18 95/41 97 Mechanical Ventilator 100 09/15/17 14:59 99 17 100 09/15/17 14:00 93 17 90/42 95 Mechanical Ventilator 90 09/15/17 13:00 100 18 90/34 96 Mechanical Ventilator 90 09/15/17 12:40 95 17 100 09/15/17 12:00 98.9 95 21 90/32 92 Mechanical Ventilator 100 98.9 09/15/17 12:00 100 09/15/17 12:00 95 09/15/17 11:00 105 17 111/43 91 Mechanical Ventilator 90 09/15/17 10:48 104 18 100 Height (Feet): 4 Height (Inches): 10.00 Weight (Pounds): 121 HEENT: status post trach Respiratory/Chest: lungs clear, other - on ventilator Cardiovascular: normal rate Abdomen: soft, non tender, other - GT feeding, rectal tube Neurologic/Psychiatric: unresponsiveness Microbiology Date/Time Source Procedure Growth Status 09/13/17 19:00 Stool Clostridium difficile Toxin Assay - Final Complete Laboratory Tests Test 09/15/17 17:30 09/16/17 03:30 09/16/17 03:50 09/16/17 04:25 Urine Color Yellow Urine Appearance Cloudy Urine pH 5.0 (4.5-8.0) Urine Specific [place] 1.020 (1.005-1.035) Urine Protein 3+ (NEGATIVE) H Urine Glucose (UA) Negative (NEGATIVE) Urine Ketones Negative (NEGATIVE) Urine Occult Blood 4+ (NEGATIVE) H Urine Nitrite Negative (NEGATIVE) Urine Bilirubin Negative (NEGATIVE) Urine Urobilinogen Normal MG/DL (0.0-1.0) Urine Leukocyte Esterase 3+ (NEGATIVE) H Urine RBC 5-10 /HPF (0 - 2) H Urine WBC 10-15 /HPF (0 - 2) H Urine Squamous Epithelial Cells Moderate /LPF (NONE/OCC) H Urine Bacteria Many /HPF (NONE) H Urine Yeast Many /HPF (NONE) H Urine Osmolality 340 mOsm/kg (429-449) L 348 mOsm/kg (429-449) L Urine Random Sodium 23 mmol/L (20-110) 15 mmol/L (20-110) L Urine Creatinine 132.2 MG/DL (30.0-125.0) H 142.1 MG/DL (30.0-125.0) H Urine Random Total Protein 196 MG/DL (< 11.9) H Sodium Level 139 MMOL/L (136-145) Potassium Level 4.3 MMOL/L (3.5-5.1) Chloride Level 107 MMOL/L (98-107) Carbon Dioxide Level 21 MMOL/L (21-32) Anion Gap 11 mmol/L (5-15) Blood Urea Nitrogen 117 mg/dL (7-18) H Creatinine 3.9 MG/DL (0.55-1.30) H Estimat Glomerular Filtration Rate mL/min (>60) Glucose Level 121 MG/DL (74-106) H Calcium Level 8.7 MG/DL (8.5-10.1) Arterial Blood pH 7.161 (7.350-7.450) Arterial Blood Partial Pressure CO2 53.9 mmHg (35.0-45.0) H Arterial Blood Partial Pressure O2 46.0 mmHg (75.0-100.0) Arterial Blood HCO3 18.9 mmol/L (22.0-26.0) L Arterial Blood Oxygen Saturation 50.0 % (92.0-98.0) L Arterial Blood Base Excess -9.6 Talha Test Positive Test 09/16/17 08:30 Arterial Blood pH 7.306 (7.350-7.450) Arterial Blood Partial Pressure CO2 39.3 mmHg (35.0-45.0) Arterial Blood Partial Pressure O2 52.0 mmHg (75.0-100.0) L Arterial Blood HCO3 19.2 mmol/L (22.0-26.0) L Arterial Blood Oxygen Saturation 85.1 % (92.0-98.0) L Arterial Blood Base Excess -6.6 Talha Test Positive Current Medications Medications (Trade) Dose Ordered Sig/Josiah Route PRN Reason Start Time Stop Time Status Last Admin Dose Admin Acetaminophen (Tylenol) 650 mg Q4H PRN GT Mild Pain/Temp > 100.5 09/11/17 09:00 10/11/17 08:59 09/15/17 05:39 Aspirin (ASA) 81 mg DAILY NG 09/10/17 11:00 10/10/17 10:59 09/16/17 09:16 Ceftazidime 1 gm/ Dextrose 110 ml @ 220 mls/hr Q24H IV 09/16/17 10:00 09/23/17 09:59 Chlorhexidine Gluconate (Cathy-Hex 2%) 1 applic DAILY@2000 TOPIC 09/11/17 20:00 10/11/17 19:59 09/15/17 20:13 Levetiracetam (Keppra) 500 mg Q12HR GT 09/10/17 12:00 10/10/17 11:59 09/16/17 09:15 Levothyroxine Sodium (Synthroid) 150 mcg ACBREAKFAST GT 09/13/17 06:30 10/13/17 06:29 09/16/17 05:54 Metoclopramide HCl (Reglan) 5 mg Q6H GT 09/14/17 21:00 10/14/17 20:59 09/16/17 09:16 Metoprolol Tartrate (Lopressor) 50 mg Q12HR GT 09/13/17 21:00 10/12/17 20:59 Midodrine (Pro-Amatine) 10 mg THREE TIMES A DAY GT 09/10/17 13:00 10/10/17 12:59 09/16/17 09:16 Pantoprazole (Protonix) 40 mg DAILY IVP 09/10/17 11:00 10/10/17 10:59 09/16/17 09:16 Sodium Chloride 1,000 ml @ 150 mls/hr Q6H40M IV 09/15/17 15:45 10/15/17 15:44 09/16/17 05:07 Vitamin A/Vitamin D (A & D Oint) 1 applic BID TOPIC 09/10/17 12:00 10/10/17 11:59 09/16/17 09:16 JENNIFER MCKEE Sep 16, 2017 10:12
--- NOTE | 2017-09-16 12:30 | Nephrology Progress Note ---
Assessment/Plan Problem List: (1) CHERYL (acute kidney injury) (2) Respiratory distress (3) Lung metastases (4) Tracheostomy dependence (5) NSTEMI (non-ST elevated myocardial infarction) (6) Hypoxia Plan prerenal urinary indices, continue hydration, now dnr Subjective ROS Limited/Unobtainable: Yes Objective Objective Last 24 Hour Vital Signs Date Time Temp Pulse Resp B/P (MAP) Pulse Ox O2 Delivery O2 Flow Rate FiO2 09/16/17 12:00 87 09/16/17 12:00 100 09/16/17 11:30 103 26 100 09/16/17 10:00 93 27 85/27 83 Mechanical Ventilator 100 09/16/17 09:00 98 86/27 09/16/17 09:00 95 27 75/57 86 Mechanical Ventilator 100 09/16/17 08:30 92 24 100 09/16/17 08:00 98.6 92 26 86/29 89 Mechanical Ventilator 100 98.6 09/16/17 08:00 100 09/16/17 08:00 93 09/16/17 07:00 90 21 93/30 88 Mechanical Ventilator 100 09/16/17 06:35 107 25 100 09/16/17 06:00 103 21 100/29 90 Mechanical Ventilator 100 09/16/17 05:00 101 18 89/31 92 Mechanical Ventilator 100 09/16/17 04:36 100 09/16/17 04:36 88 20 100 09/16/17 04:00 104 09/16/17 04:00 100 09/16/17 04:00 98.9 91 18 100/23 87 Mechanical Ventilator 100 98.9 09/16/17 03:00 95 18 95/48 93 Mechanical Ventilator 100 09/16/17 02:56 88 20 100 09/16/17 02:00 95 18 89/47 91 Mechanical Ventilator 100 09/16/17 01:08 96 21 100 09/16/17 01:00 88 18 99/27 92 Mechanical Ventilator 100 09/16/17 00:00 101 09/16/17 00:00 99.1 92 18 87/35 92 Mechanical Ventilator 100 99.1 09/15/17 23:00 95 18 110/36 92 Mechanical Ventilator 100 09/15/17 22:41 97 21 100 09/15/17 22:00 95 18 103/30 92 Mechanical Ventilator 100 09/15/17 21:19 91 19 100 09/15/17 21:00 98 21 92/32 93 Mechanical Ventilator 100 09/15/17 21:00 97 92/32 09/15/17 20:00 100 09/15/17 20:00 99.2 94 18 91/36 93 Mechanical Ventilator 100 99.2 09/15/17 20:00 96 09/15/17 19:39 94 22 100 09/15/17 19:00 96 20 100/30 93 Mechanical Ventilator 100 09/15/17 18:00 95 20 83/29 93 Mechanical Ventilator 100 09/15/17 17:09 96 19 100 09/15/17 17:00 96 22 88/45 93 Mechanical Ventilator 100 09/15/17 16:00 100 09/15/17 16:00 102 09/15/17 16:00 98.7 101 19 88/47 92 Mechanical Ventilator 100 98.7 09/15/17 15:00 99 18 95/41 97 Mechanical Ventilator 100 09/15/17 14:59 99 17 100 09/15/17 14:00 93 17 90/42 95 Mechanical Ventilator 90 09/15/17 13:00 100 18 90/34 96 Mechanical Ventilator 90 09/15/17 12:40 95 17 100 Intake and Output 09/15/17 09/16/17 19:00 07:00 Intake Total 735 ml 2060 ml Output Total 62 ml 55 ml Balance 673 ml 2005 ml IV Total 485 ml 1800 ml Tube Feeding 250 ml 200 ml Other 60 ml Output Urine Total 62 ml 55 ml # Bowel Movements 103 63 Laboratory Tests 09/15/17 17:30: Urine Color Yellow, Urine Appearance Cloudy, Urine pH 5.0, Urine Specific [place] 1.020, Urine Protein 3+H, Urine Glucose (UA) Negative, Urine Ketones Negative, Urine Occult Blood 4+H, Urine Nitrite Negative, Urine Bilirubin Negative, Urine Urobilinogen Normal, Urine Leukocyte Esterase 3+H, Urine RBC 5- 10H, Urine WBC 10-15H, Urine Squamous Epithelial Cells ModerateH, Urine Bacteria ManyH, Urine Yeast ManyH, Urine Osmolality 340L, Urine Random Sodium 23 , Urine Creatinine 132.2H 09/16/17 03:30: Urine Osmolality 348L, Urine Random Sodium 15L, Urine Creatinine 142.1H, Urine Random Total Protein 196H 09/16/17 03:50: Sodium Level 139, Potassium Level 4.3, Chloride Level 107, Carbon Dioxide Level 21, Anion Gap 11, Blood Urea Nitrogen 117H, Creatinine 3.9H, Estimat Glomerular Filtration Rate , Glucose Level 121H, Calcium Level 8.7 09/16/17 04:25: Arterial Blood pH 7.161*L, Arterial Blood Partial Pressure CO2 53.9H, Arterial Blood Partial Pressure O2 46.0*L, Arterial Blood HCO3 18.9L, Arterial Blood Oxygen Saturation 50.0L, Arterial Blood Base Excess -9.6, Talha Test Positive 09/16/17 08:30: Arterial Blood pH 7.306L, Arterial Blood Partial Pressure CO2 39.3, Arterial Blood Partial Pressure O2 52.0L, Arterial Blood HCO3 19.2L, Arterial Blood Oxygen Saturation 85.1L, Arterial Blood Base Excess -6.6, Talha Test Positive Height (Feet): 4 Height (Inches): 10.00 Weight (Pounds): 121 General Appearance: mild distress Neck: other - trach Cardiovascular: regular rhythm Respiratory/Chest: rhonchi - bilaterally Abdomen: non tender, soft Extremities: trace edema Neurologic: unresponsive VICKIE KEMP Sep 16, 2017 12:30
[2017-09-16] MEDS: Dyna-Hex 2% Top Sol 2oz TOPIC SCH (19:29)
[2017-09-16] MEDS ORDERED: 1/2 NS 1000ml IV ONE (20:45)
[2017-09-17] VITALS (39 sets, daily range): BP systolic 53–113; BP diastolic 17–48
--- NOTE | 2017-09-17 03:15 | Progress Note ---
DATE: 09/16/2017 CARDIOLOGY PROGRESS NOTE SUBJECTIVE: The patient remains in the intensive care unit with critical condition and grave prognosis. The patient said the Code Status has now been adjusted to DNR following discussions with her son. The patient continues to have episodes of rapid atrial fibrillation. Blood pressure remains quite marginal and requiring pressors. OBJECTIVE: VITAL SIGNS: Blood pressure 93/30, pulse 90, and respiratory rate 21. Earlier, blood pressure 89/31, pulse 101, and respiratory rate 18. Monitor, atrial fibrillation with episodes of sinus rhythm. LUNGS: Coarse breath sounds, scattered rales. Thin trach secretions, poorly responsive. HEART: Irregularly irregular rhythm. Normal S1, S2. ABDOMEN: Soft. G-tube intact. EXTREMITIES: A 1+ dependent edema. Poorly responsive. LABORATORY AND DIAGNOSTIC DATA: Sodium 139, potassium 4.3, bicarbonate 21, BUN 117, and creatinine 3.9. ABG, pH 7.31, pCO2 of 39, and pO2 of 52. Urine sodium was 15. IMPRESSION: 1. Respiratory failure. 2. Postobstructive pneumonia. 3. Paroxysmal atrial fibrillation. 4. Metastatic head and neck cancer. 5. Severe protein-calorie malnutrition. 6. Digoxin toxicity. 7. Acute renal failure. PLAN: 1. Volume support. 2. Ventilator support. 3. No diuretics. 4. Hold digoxin. 5. Consider amiodarone once digoxin levels normalize. 6. Continue beta-blockade. 7. Nutrition by feeding tube. 8. Antimicrobials per Infectious Disease sap ppm consultant. 9. Taper off pressors. 10. Maintain midodrine support. 11. DNR appropriate. Chi Bhatti M.D. : TRISH JOB#: [id number] CC:
[2017-09-17] MEDS: Pantoprazole Inj IVP SCH (08:20)
[2017-09-17] MEDS: Midodrine 10mg tab GT SCH ×3 (08:20→18:21)
[2017-09-17] MEDS: Aspirin Baby 81mg NG SCH (08:20)
[2017-09-17] MEDS: levETIRAcetam 500mg/5ml Liquid GT SCH ×2 (08:21→21:03)
[2017-09-17] MEDS: Vitamin A&D Oint 2oz Tube TOPIC SCH ×2 (08:21→18:21)
[2017-09-17] MEDS: Metoprolol Tartrate 50mg tab GT SCH ×2 (08:22→21:00)
[2017-09-17] MEDS: Phenylephrine 50 MG in D5W 245 ML IV SCH (09:40)
--- NOTE | 2017-09-17 09:45 | General Progress Note ---
Assessment/Plan Problem List: (1) Sepsis ICD Codes: A41.9 - Sepsis, unspecified organism SNOMED: 52505429 (2) Lung metastases ICD Codes: C78.00 - Secondary malignant neoplasm of unspecified lung SNOMED: 22003358 (3) Tracheostomy dependence ICD Codes: Z93.0 - Tracheostomy status SNOMED: 666822781, 703868527 (4) NSTEMI (non-ST elevated myocardial infarction) ICD Codes: I21.4 - Non-ST elevation (NSTEMI) myocardial infarction SNOMED: 671703321 (5) Hypoxia ICD Codes: R09.02 - Hypoxemia SNOMED: 870561522 (6) Shortness of breath ICD Codes: R06.02 - Shortness of breath SNOMED: 756318054 (7) Tongue malignant neoplasm ICD Codes: C02.9 - Malignant neoplasm of tongue, unspecified SNOMED: 371218965 (8) Respiratory failure ICD Codes: J96.90 - Respiratory failure, unspecified, unspecified whether with hypoxia or hypercapnia SNOMED: 938448632 Status: stable, deteriorating Assessment/Plan iv abx follow up cultures vent support titrate fio2 monitor cxr ivf and albumin as needed kayexylate prn resp rx feeds stress ulcer prophylaxis d/w son aware of poor prognosis agrees to dnr critical and guarded poor prognosis Subjective ROS Limited/Unobtainable: Yes Constitutional: Reports: malaise, weakness HEENT: Reports: no symptoms Cardiovascular: Reports: edema Respiratory: Reports: shortness of breath Gastrointestinal/Abdominal: Reports: no symptoms Genitourinary: Reports: no symptoms Neurologic/Psychiatric: Reports: no symptoms, pre-existing deficit Endocrine: Reports: no symptoms Hematologic/Lymphatic: Reports: anemia Allergies: Coded Allergies: PENICILLINS (Verified Allergy, Unknown, 07/31/16) All Systems: reviewed and negative except above Subjective doing poorly. still with poor uop. +sob. on 90%fio2. labs noted. worsening renal fxn. son agreed to make pt DNR Objective Last 24 Hour Vital Signs Date Time Temp Pulse Resp B/P (MAP) Pulse Ox O2 Delivery O2 Flow Rate FiO2 09/17/17 08:57 88 24 100 09/17/17 08:22 78 61/28 09/17/17 08:00 100 09/17/17 08:00 98.6 83 26 61/28 91 Mechanical Ventilator 100 98.6 09/17/17 07:19 81 25 100 09/17/17 07:00 90 25 89/45 91 Mechanical Ventilator 100 09/17/17 06:00 79 25 109/37 91 Mechanical Ventilator 100 09/17/17 05:05 87 27 100 09/17/17 05:00 73 25 84/29 94 Mechanical Ventilator 100 09/17/17 04:00 100 09/17/17 04:00 72 09/17/17 04:00 73 25 88/33 94 Mechanical Ventilator 100 09/17/17 03:00 72 24 100 09/17/17 03:00 72 21 91/33 89 Mechanical Ventilator 100 09/17/17 02:00 74 24 91/34 90 Mechanical Ventilator 100 09/17/17 01:00 72 24 88/29 90 Mechanical Ventilator 100 09/17/17 00:46 73 24 100 09/17/17 00:00 72 09/17/17 00:00 100 09/17/17 00:00 98.9 72 25 86/31 85 Mechanical Ventilator 100 98.9 09/16/17 23:00 70 24 94/30 90 Mechanical Ventilator 100 09/16/17 22:37 70 24 100 18 22:00 70 24 94/30 85 Mechanical Ventilator 100 09/16/17 21:10 67 24 100 09/16/17 21:00 69 24 106/30 85 Mechanical Ventilator 100 09/16/17 20:35 107 110/43 09/16/17 20:00 101 09/16/17 20:00 98.6 100 25 100/43 85 Mechanical Ventilator 100 98.6 09/16/17 20:00 100 09/16/17 19:00 103 24 124/47 85 Mechanical Ventilator 100 18 18:56 88 24 100 18 18:00 80 24 95/43 85 Mechanical Ventilator 100 09/16/17 17:00 98 25 92/35 85 Mechanical Ventilator 100 09/16/17 16:55 91 25 100 09/16/17 16:00 98.9 98 25 95/48 85 Mechanical Ventilator 100 98.9 09/16/17 16:00 100 09/16/17 16:00 99 09/16/17 15:15 97 24 100 09/16/17 15:00 79 26 101/33 84 Mechanical Ventilator 100 09/16/17 14:00 86 27 109/59 86 Mechanical Ventilator 100 09/16/17 13:29 95 24 100 09/16/17 13:00 100 28 89/38 84 Mechanical Ventilator 100 09/16/17 12:00 87 09/16/17 12:00 98.4 95 26 86/42 80 Mechanical Ventilator 100 98.4 09/16/17 12:00 100 09/16/17 11:30 103 26 100 09/16/17 11:00 88 27 82/43 88 Mechanical Ventilator 100 09/16/17 10:00 93 27 85/27 83 Mechanical Ventilator 100 Intake and Output 09/16/17 09/17/17 19:00 07:00 Intake Total 1695 ml 1785 ml Output Total 56 ml 6 ml Balance 1639 ml 1779 ml IV Total 1310 ml 1650 ml Tube Feeding 225 ml 75 ml Other 160 ml 60 ml Output Urine Total 56 ml 6 ml # Bowel Movements 3 103 Height (Feet): 4 Height (Inches): 10.00 Weight (Pounds): 120 Objective General Appearance: WD/WN, alert/opens eyes Neck: supple Cardiovascular: normal rate, regular rhythm Respiratory/Chest: chest wall non-tender, lungs with rhonchi tony Abdomen: normal bowel sounds, non tender, soft, no organomegaly Neurologic: disoriented CHRISTINA HAMMOND Sep 17, 2017 09:45
[2017-09-17] MEDS ORDERED: 1/2 NS 1000ml IV ONE (10:23)
[2017-09-17] MEDS ORDERED: Tubing IV Secondary IV ONE (10:23)
--- NOTE | 2017-09-17 15:30 | Critical Care Progress Note ---
Assessment/Plan Assessment/Plan Atrial fibrillation with rapid ventricular response, fever, sepsis, postobstructive pneumonia with plugs, metastatic cancer to the lung with compromise, hypoxemia likely due to significant metastasis and post obstructive concerns, failure to thrive, severe protein-calorie malnutrition, hemoptysis secondary to metastatic cancer as well as due to heparin use, evidence of acute renal failure, worsening anemia. poor gas exchange hypotension PLAN care noted hypervent IV antibiotics reviewed pressors respiratory care and suction Ventilatory settings as is and adjust PEEP; and 100% fio2 reviewed med profile supportive care as is suction and maintain and monitor for change prognosis poor advanced directives; now DNR medications/laboratory data/nursing notes/ICU care reviewed in detail note reviewed and edited care discussed with RN and RT ICU time spent 38 minutes Critical Care - Subjective Interval Events: doing poorly hypotensive now DNR per family still on 100% poor LOC ROS Limited/Unobtainable: Yes Condition: critical EKG Rhythm: Sinus Rhythm Residuals: minimal Tube Feeding Tolerated: yes I&O: Intake and Output 09/16/17 09/17/17 19:00 07:00 Intake Total 1695 ml 1935 ml Output Total 56 ml 6 ml Balance 1639 ml 1929 ml IV Total 1310 ml 1800 ml Tube Feeding 225 ml 75 ml Other 160 ml 60 ml Output Urine Total 56 ml 6 ml # Bowel Movements 3 103 Critical Care - Objective Last 24 Hour Vital Signs Date Time Temp Pulse Resp B/P (MAP) Pulse Ox O2 Delivery O2 Flow Rate FiO2 09/17/17 15:00 74 24 88/35 89 Mechanical Ventilator 100 09/17/17 14:30 71 24 95/34 90 Mechanical Ventilator 100 09/17/17 14:00 77 24 97/37 90 Mechanical Ventilator 100 09/17/17 13:30 70 24 72/28 90 Mechanical Ventilator 100 09/17/17 13:00 98.2 73 22 95/33 90 Mechanical Ventilator 100 98.2 09/17/17 12:52 67 24 100 09/17/17 12:30 76 24 84/32 90 Mechanical Ventilator 100 09/17/17 12:00 68 09/17/17 12:00 100 09/17/17 12:00 71 24 88/29 90 Mechanical Ventilator 100 09/17/17 12:00 71 09/17/17 11:30 71 24 53/26 90 Mechanical Ventilator 100 09/17/17 11:24 129 24 100 09/17/17 11:00 73 24 75/28 90 Mechanical Ventilator 100 09/17/17 10:30 76 24 78/34 91 Mechanical Ventilator 100 09/17/17 10:00 82 24 113/36 91 Mechanical Ventilator 100 09/17/17 09:40 87 61/28 09/17/17 09:30 84 24 83/42 90 Mechanical Ventilator 100 09/17/17 09:00 84 23 80/28 91 Mechanical Ventilator 100 09/17/17 08:57 88 24 100 09/17/17 08:22 78 61/28 09/17/17 08:00 84 09/17/17 08:00 100 09/17/17 08:00 98.6 83 26 61/28 91 Mechanical Ventilator 100 98.6 09/17/17 07:19 81 25 100 09/17/17 07:00 90 25 89/45 91 Mechanical Ventilator 100 09/17/17 06:00 79 25 109/37 91 Mechanical Ventilator 100 09/17/17 05:05 87 27 100 09/17/17 05:00 73 25 84/29 94 Mechanical Ventilator 100 09/17/17 04:00 100 09/17/17 04:00 72 09/17/17 04:00 73 25 88/33 94 Mechanical Ventilator 100 09/17/17 03:00 72 24 100 09/17/17 03:00 72 21 91/33 89 Mechanical Ventilator 100 09/17/17 02:00 74 24 91/34 90 Mechanical Ventilator 100 09/17/17 01:00 72 24 88/29 90 Mechanical Ventilator 100 09/17/17 00:46 73 24 100 09/17/17 00:00 72 09/17/17 00:00 100 09/17/17 00:00 98.9 72 25 86/31 85 Mechanical Ventilator 100 98.9 09/16/17 23:00 70 24 94/30 90 Mechanical Ventilator 100 09/16/17 22:37 70 24 100 09/16/17 22:00 70 24 94/30 85 Mechanical Ventilator 100 09/16/17 21:10 67 24 100 09/16/17 21:00 69 24 106/30 85 Mechanical Ventilator 100 09/16/17 20:35 107 110/43 09/16/17 20:00 101 09/16/17 20:00 98.6 100 25 100/43 85 Mechanical Ventilator 100 98.6 09/16/17 20:00 100 09/16/17 19:00 103 24 124/47 85 Mechanical Ventilator 100 09/16/17 18:56 88 24 100 09/16/17 18:00 80 24 95/43 85 Mechanical Ventilator 100 09/16/17 17:00 98 25 92/35 85 Mechanical Ventilator 100 09/16/17 16:55 91 25 100 09/16/17 16:00 98.9 98 25 95/48 85 Mechanical Ventilator 100 98.9 09/16/17 16:00 100 09/16/17 16:00 99 Labs: Labs Test 09/15/17 06:20 09/15/17 17:30 09/16/17 03:30 09/16/17 03:50 White Blood Count 12.8 K/UL (4.8-10.8) Red Blood Count 4.03 M/UL (4.20-5.40) Hemoglobin 11.7 G/DL (12.0-16.0) Hematocrit 35.4 % (37.0-47.0) Mean Corpuscular Volume 88 FL (80-99) Mean Corpuscular Hemoglobin 29.1 PG (27.0-31.0) Mean Corpuscular Hemoglobin Concent 33.1 G/DL (32.0-36.0) Red Cell Distribution Width 13.6 % (11.6-14.8) Platelet Count 247 K/UL (150-450) Mean Platelet Volume 7.7 FL (6.5-10.1) Neutrophils (%) (Auto) % (45.0-75.0) Lymphocytes (%) (Auto) % (20.0-45.0) Monocytes (%) (Auto) % (1.0-10.0) Eosinophils (%) (Auto) % (0.0-3.0) Basophils (%) (Auto) % (0.0-2.0) Differential Total Cells Counted 100 Neutrophils % (Manual) 65 % (45-75) Lymphocytes % (Manual) 6 % (20-45) Monocytes % (Manual) 2 % (1-10) Eosinophils % (Manual) 0 % (0-3) Basophils % (Manual) 0 % (0-2) Band Neutrophils 27 % (0-8) Platelet Estimate Adequate Platelet Morphology Normal Hypochromasia 1+ Sodium Level 141 MMOL/L (136-145) 139 MMOL/L (136-145) Potassium Level 4.6 MMOL/L (3.5-5.1) 4.3 MMOL/L (3.5-5.1) Chloride Level 109 MMOL/L (98-107) 107 MMOL/L (98-107) Carbon Dioxide Level 21 MMOL/L (21-32) 21 MMOL/L (21-32) Anion Gap 11 mmol/L (5-15) 11 mmol/L (5-15) Blood Urea Nitrogen 103 mg/dL (7-18) 117 mg/dL (7-18) Creatinine 3.6 MG/DL (0.55-1.30) 3.9 MG/DL (0.55-1.30) Estimat Glomerular Filtration Rate mL/min (>60) mL/min (>60) Glucose Level 130 MG/DL (74-106) 121 MG/DL (74-106) Uric Acid 10.4 MG/DL (2.6-7.2) Calcium Level 8.4 MG/DL (8.5-10.1) 8.7 MG/DL (8.5-10.1) Total Bilirubin 0.4 MG/DL (0.2-1.0) Aspartate Amino Transf (AST/SGOT) 62 U/L (15-37) Alanine Aminotransferase (ALT/SGPT) 17 U/L (12-78) Alkaline Phosphatase 104 U/L (46-116) Total Creatine Kinase 37 U/L (26-308) Total Protein 7.0 G/DL (6.4-8.2) Albumin 1.7 G/DL (3.4-5.0) Globulin 5.3 g/dL Albumin/Globulin Ratio 0.3 (1.0-2.7) Digoxin Level 3.7 NG/ML (0.9-2.0) Urine Color Yellow Urine Appearance Cloudy Urine pH 5.0 (4.5-8.0) Urine Specific [place] 1.020 (1.005-1.035) Urine Protein 3+ (NEGATIVE) Urine Glucose (UA) Negative (NEGATIVE) Urine Ketones Negative (NEGATIVE) Urine Occult Blood 4+ (NEGATIVE) Urine Nitrite Negative (NEGATIVE) Urine Bilirubin Negative (NEGATIVE) Urine Urobilinogen Normal MG/DL (0.0-1.0) Urine Leukocyte Esterase 3+ (NEGATIVE) Urine RBC 5-10 /HPF (0 - 2) Urine WBC 10-15 /HPF (0 - 2) Urine Squamous Epithelial Cells Moderate /LPF (NONE/OCC) Urine Bacteria Many /HPF (NONE) Urine Yeast Many /HPF (NONE) Urine Osmolality 340 mOsm/kg (429-449) 348 mOsm/kg (429-449) Urine Random Sodium 23 mmol/L (20-110) 15 mmol/L (20-110) Urine Creatinine 132.2 MG/DL (30.0-125.0) 142.1 MG/DL (30.0-125.0) Urine Random Total Protein 196 MG/DL (< 11.9) Test 09/16/17 04:25 09/16/17 08:30 Arterial Blood pH 7.161 (7.350-7.450) 7.306 (7.350-7.450) Arterial Blood Partial Pressure CO2 53.9 mmHg (35.0-45.0) 39.3 mmHg (35.0-45.0) Arterial Blood Partial Pressure O2 46.0 mmHg (75.0-100.0) 52.0 mmHg (75.0-100.0) Arterial Blood HCO3 18.9 mmol/L (22.0-26.0) 19.2 mmol/L (22.0-26.0) Arterial Blood Oxygen Saturation 50.0 % (92.0-98.0) 85.1 % (92.0-98.0) Arterial Blood Base Excess -9.6 -6.6 Talha Test Positive Positive Objective: WDWN female NAD trach in place reduced breath sounds L>>R bilaterally coarse S1S2 iRRR without MRG; tachy at times NABS nontender no HSM; GT no distention no CC; mild edema nonfocal nonverbal skin and lines reviewed withdrawn and in some distress Accucheck: 182 MARCY MAJOR Sep 17, 2017 15:30
--- NOTE | 2017-09-17 17:39 | Nephrology Progress Note ---
Assessment/Plan Problem List: (1) CHERYL (acute kidney injury) (2) Respiratory distress (3) Lung metastases (4) Tracheostomy dependence (5) NSTEMI (non-ST elevated myocardial infarction) (6) Hypoxia Plan prerenal urinary indices, cheryl, now anuric on high dose pressors, terminal now dnr Subjective ROS Limited/Unobtainable: Yes Objective Objective Last 24 Hour Vital Signs Date Time Temp Pulse Resp B/P (MAP) Pulse Ox O2 Delivery O2 Flow Rate FiO2 09/17/17 17:30 96 24 97/28 87 Mechanical Ventilator 100 09/17/17 17:00 78 24 77/27 87 Mechanical Ventilator 100 09/17/17 16:58 63 24 100 09/17/17 16:30 97.4 68 24 69/29 86 Mechanical Ventilator 100 97.4 09/17/17 16:00 70 24 78/30 87 Mechanical Ventilator 100 09/17/17 16:00 68 09/17/17 16:00 100 09/17/17 16:00 100 09/17/17 15:30 72 24 65/26 90 Mechanical Ventilator 100 09/17/17 15:27 55 24 100 09/17/17 15:00 74 24 88/35 89 Mechanical Ventilator 100 09/17/17 14:30 71 24 95/34 90 Mechanical Ventilator 100 09/17/17 14:00 77 24 97/37 90 Mechanical Ventilator 100 09/17/17 13:30 70 24 72/28 90 Mechanical Ventilator 100 09/17/17 13:00 98.2 73 22 95/33 90 Mechanical Ventilator 100 98.2 09/17/17 12:52 67 24 100 09/17/17 12:30 76 24 84/32 90 Mechanical Ventilator 100 09/17/17 12:00 68 09/17/17 12:00 100 09/17/17 12:00 71 24 88/29 90 Mechanical Ventilator 100 09/17/17 12:00 71 09/17/17 11:30 71 24 53/26 90 Mechanical Ventilator 100 09/17/17 11:24 129 24 100 09/17/17 11:00 73 24 75/28 90 Mechanical Ventilator 100 09/17/17 10:30 76 24 78/34 91 Mechanical Ventilator 100 09/17/17 10:00 82 24 113/36 91 Mechanical Ventilator 100 09/17/17 09:40 87 61/28 09/17/17 09:30 84 24 83/42 90 Mechanical Ventilator 100 09/17/17 09:00 84 23 80/28 91 Mechanical Ventilator 100 09/17/17 08:57 88 24 100 09/17/17 08:22 78 61/28 09/17/17 08:00 84 09/17/17 08:00 100 09/17/17 08:00 98.6 83 26 61/28 91 Mechanical Ventilator 100 98.6 09/17/17 07:19 81 25 100 09/17/17 07:00 90 25 89/45 91 Mechanical Ventilator 100 09/17/17 06:00 79 25 109/37 91 Mechanical Ventilator 100 09/17/17 05:05 87 27 100 09/17/17 05:00 73 25 84/29 94 Mechanical Ventilator 100 09/17/17 04:00 100 09/17/17 04:00 72 09/17/17 04:00 73 25 88/33 94 Mechanical Ventilator 100 09/17/17 03:00 72 24 100 09/17/17 03:00 72 21 91/33 89 Mechanical Ventilator 100 09/17/17 02:00 74 24 91/34 90 Mechanical Ventilator 100 09/17/17 01:00 72 24 88/29 90 Mechanical Ventilator 100 09/17/17 00:46 73 24 100 09/17/17 00:00 72 09/17/17 00:00 100 09/17/17 00:00 98.9 72 25 86/31 85 Mechanical Ventilator 100 98.9 09/16/17 23:00 70 24 94/30 90 Mechanical Ventilator 100 09/16/17 22:37 70 24 100 09/16/17 22:00 70 24 94/30 85 Mechanical Ventilator 100 09/16/17 21:10 67 24 100 09/16/17 21:00 69 24 106/30 85 Mechanical Ventilator 100 09/16/17 20:35 107 110/43 09/16/17 20:00 101 09/16/17 20:00 98.6 100 25 100/43 85 Mechanical Ventilator 100 98.6 09/16/17 20:00 100 09/16/17 19:00 103 24 124/47 85 Mechanical Ventilator 100 09/16/17 18:56 88 24 100 09/16/17 18:00 80 24 95/43 85 Mechanical Ventilator 100 Intake and Output 09/16/17 09/17/17 19:00 07:00 Intake Total 1695 ml 1935 ml Output Total 56 ml 6 ml Balance 1639 ml 1929 ml IV Total 1310 ml 1800 ml Tube Feeding 225 ml 75 ml Other 160 ml 60 ml Output Urine Total 56 ml 6 ml # Bowel Movements 3 103 Height (Feet): 4 Height (Inches): 10.00 Weight (Pounds): 120 EENT: normal ENT inspection Neck: other - trach Cardiovascular: regular rhythm Respiratory/Chest: rhonchi - bilaterally Abdomen: soft Extremities: severe edema Neurologic: unresponsive VICKIE KEMP Sep 17, 2017 17:39
[2017-09-17] MEDS: Dyna-Hex 2% Top Sol 2oz TOPIC SCH (20:11)
--- NOTE | 2017-09-17 21:26 | Cardiology Report ---
APPROVED REPORT EKG Measurement Heart [id number] OR 132P50 [id number] Sinus tachycardia Low voltage QRS Nonspecific ST and T wave abnormality Abnormal ECG
--- NOTE | 2017-09-17 21:35 | Cardiology Report ---
APPROVED REPORT EKG Measurement Heart [id number] Atrial fibrillation with rapid ventricular response Nonspecific ST abnormality Abnormal ECG
--- NOTE | 2017-09-17 21:36 | Cardiology Report ---
APPROVED REPORT EKG Measurement Heart [id number] VT 124P20 [id number] Sinus tachycardia Otherwise normal ECG
--- NOTE | 2017-09-17 21:36 | Cardiology Report ---
APPROVED REPORT EKG Measurement Heart [id number] [place] 122P51 [id number] Sinus tachycardia Otherwise normal ECG
--- NOTE | 2017-09-17 22:30 | Progress Note ---
DATE: 09/17/2017 CARDIOLOGY PROGRESS NOTE SUBJECTIVE: The patient's condition continues to deteriorate. Remains critical with grave prognosis in the intensive care unit. The patient remains on pressors with marginal blood pressure readings. Her urine output is poor. She is on IV fluids and two pressors. She is on full ventilator support via tracheostomy. OBJECTIVE: VITAL SIGNS: Blood pressure 75/39, heart rate 90, respiratory rate 24, afebrile. Monitor, atrial fibrillation. LUNGS: Bilateral rales. Poor breath sounds. CARDIOVASCULAR: Irregularly irregular rhythm. Normal S1, S2. ABDOMEN: Soft. EXTREMITIES: 2+ dependent edema. LABORATORY DATA: Sputum is positive for Pseudomonas. No new labs today. IMPRESSION: 1. Shock. 2. Sepsis. 3. Healthcare-acquired pneumonia. 4. Metastatic head and neck cancer. 5. Respiratory failure. 6. Paroxysmal atrial fibrillation. 7. Acute on chronic diastolic congestive heart failure. 8. Acute renal failure. 9. Severe protein-calorie malnutrition. 10. Acute myocardial infarction. PLAN: DNR. Appropriate comfort measures being considered by family. Maintain hydration and pressors. Taper the latter as able. Antimicrobials. Ventilator support. Comfort measures. DVT and stress ulcer prophylaxis. Chi Bhatti M.D. DR: Chele JOB#: [id number] CC:
--- NOTE | 2017-09-17 22:58 | General Progress Note ---
Assessment/Plan Assessment/Plan Assessment - GT site leak - Diarrhea, C Diff (-) - afib, RVR - Metastatic H&N CA - Resp failure - Renal failure - Poor Px Recommendations - TF as tolerated - agree with comfort measures - follow labs and exam - GT site care - Reglan trial Subjective Allergies: Coded Allergies: PENICILLINS (Verified Allergy, Unknown, 07/31/16) Subjective Above noted seen earlier today doing poorly hypotensive unresponsive Objective Last 24 Hour Vital Signs Date Time Temp Pulse Resp B/P (MAP) Pulse Ox O2 Delivery O2 Flow Rate FiO2 09/17/17 21:30 92 24 60/34 91 Mechanical Ventilator 100 09/17/17 21:25 90 24 100 09/17/17 21:00 90 75/39 09/17/17 21:00 95 24 54/34 91 Mechanical Ventilator 100 09/17/17 20:30 100 24 81/24 90 Mechanical Ventilator 100 09/17/17 20:00 97.6 104 24 87/17 91 Mechanical Ventilator 100 97.6 09/17/17 19:30 89 24 90/48 91 Mechanical Ventilator 100 09/17/17 19:11 82 24 100 09/17/17 19:00 83 24 88/45 92 Mechanical Ventilator 100 09/17/17 18:30 80 24 58/30 87 Mechanical Ventilator 100 09/17/17 18:00 74 24 100/40 87 Mechanical Ventilator 100 09/17/17 17:30 96 24 97/28 87 Mechanical Ventilator 100 09/17/17 17:00 78 24 77/27 87 Mechanical Ventilator 100 09/17/17 16:58 63 24 100 09/17/17 16:30 97.4 68 24 69/29 86 Mechanical Ventilator 100 97.4 09/17/17 16:00 70 24 78/30 87 Mechanical Ventilator 100 09/17/17 16:00 68 18 16:00 100 09/17/17 16:00 100 09/17/17 15:30 72 24 65/26 90 Mechanical Ventilator 100 09/17/17 15:27 55 24 100 09/17/17 15:00 74 24 88/35 89 Mechanical Ventilator 100 09/17/17 14:30 71 24 95/34 90 Mechanical Ventilator 100 09/17/17 14:00 77 24 97/37 90 Mechanical Ventilator 100 09/17/17 13:30 70 24 72/28 90 Mechanical Ventilator 100 09/17/17 13:00 98.2 73 22 95/33 90 Mechanical Ventilator 100 98.2 09/17/17 12:52 67 24 100 09/17/17 12:30 76 24 84/32 90 Mechanical Ventilator 100 09/17/17 12:00 68 09/17/17 12:00 100 09/17/17 12:00 71 24 88/29 90 Mechanical Ventilator 100 09/17/17 12:00 71 09/17/17 11:30 71 24 53/26 90 Mechanical Ventilator 100 09/17/17 11:24 129 24 100 09/17/17 11:00 73 24 75/28 90 Mechanical Ventilator 100 09/17/17 10:30 76 24 78/34 91 Mechanical Ventilator 100 09/17/17 10:00 82 24 113/36 91 Mechanical Ventilator 100 09/17/17 09:40 87 61/28 09/17/17 09:30 84 24 83/42 90 Mechanical Ventilator 100 09/17/17 09:00 84 23 80/28 91 Mechanical Ventilator 100 09/17/17 08:57 88 24 100 09/17/17 08:22 78 61/28 09/17/17 08:00 84 09/17/17 08:00 100 09/17/17 08:00 98.6 83 26 61/28 91 Mechanical Ventilator 100 98.6 09/17/17 07:19 81 25 100 09/17/17 07:00 90 25 89/45 91 Mechanical Ventilator 100 09/17/17 06:00 79 25 109/37 91 Mechanical Ventilator 100 09/17/17 05:05 87 27 100 09/17/17 05:00 73 25 84/29 94 Mechanical Ventilator 100 09/17/17 04:00 100 09/17/17 04:00 72 09/17/17 04:00 73 25 88/33 94 Mechanical Ventilator 100 09/17/17 03:00 72 24 100 09/17/17 03:00 72 21 91/33 89 Mechanical Ventilator 100 09/17/17 02:00 74 24 91/34 90 Mechanical Ventilator 100 09/17/17 01:00 72 24 88/29 90 Mechanical Ventilator 100 09/17/17 00:46 73 24 100 09/17/17 00:00 72 09/17/17 00:00 100 09/17/17 00:00 98.9 72 25 86/31 85 Mechanical Ventilator 100 98.9 09/16/17 23:00 70 24 94/30 90 Mechanical Ventilator 100 Intake and Output 09/16/17 09/17/17 19:00 07:00 Intake Total 1695 ml 1935 ml Output Total 56 ml 6 ml Balance 1639 ml 1929 ml IV Total 1310 ml 1800 ml Tube Feeding 225 ml 75 ml Other 160 ml 60 ml Output Urine Total 56 ml 6 ml # Bowel Movements 3 103 Height (Feet): 4 Height (Inches): 10.00 Weight (Pounds): 120 Objective Debilitated elderly woman NCAT (+) trach CTA RRR Soft ND NT no edema (+) rectal tube OBS BIN MYERS Sep 17, 2017 22:57
[2017-09-18] VITALS (19 sets, daily range): BP systolic 33–106; BP diastolic 10–60
[2017-09-18] MEDS: Phenylephrine 50 MG in D5W 245 ML IV SCH ×3 (01:28→09:31)
--- NOTE | 2017-09-18 05:58 | General Progress Note ---
Assessment/Plan Problem List: (1) Sepsis ICD Codes: A41.9 - Sepsis, unspecified organism SNOMED: 19191702 (2) Lung metastases ICD Codes: C78.00 - Secondary malignant neoplasm of unspecified lung SNOMED: 39594630 (3) Tracheostomy dependence ICD Codes: Z93.0 - Tracheostomy status SNOMED: 672890269, 884377290 (4) NSTEMI (non-ST elevated myocardial infarction) ICD Codes: I21.4 - Non-ST elevation (NSTEMI) myocardial infarction SNOMED: 120165004 (5) Hypoxia ICD Codes: R09.02 - Hypoxemia SNOMED: 947448371 (6) Shortness of breath ICD Codes: R06.02 - Shortness of breath SNOMED: 178851346 (7) Tongue malignant neoplasm ICD Codes: C02.9 - Malignant neoplasm of tongue, unspecified SNOMED: 344014172 (8) Respiratory failure ICD Codes: J96.90 - Respiratory failure, unspecified, unspecified whether with hypoxia or hypercapnia SNOMED: 582492283 Status: deteriorating Assessment/Plan iv abx follow up cultures vent support titrate fio2 monitor cxr ivf and albumin as needed resp rx feeds stress ulcer prophylaxis pressors d/w son aware of poor prognosis agrees to dnr critical and guarded poor prognosis Subjective ROS Limited/Unobtainable: Yes Constitutional: Reports: malaise, weakness HEENT: Reports: no symptoms Cardiovascular: Reports: edema Respiratory: Reports: shortness of breath Gastrointestinal/Abdominal: Reports: difficulty swallowing Genitourinary: Reports: no symptoms Neurologic/Psychiatric: Reports: no symptoms Endocrine: Reports: no symptoms Hematologic/Lymphatic: Reports: anemia Allergies: Coded Allergies: PENICILLINS (Verified Allergy, Unknown, 07/31/16) All Systems: reviewed and negative except above Subjective doing poorly. still with poor uop. +sob. on 90%fio2. labs noted. worsening renal fxn. on 2 pressors max dose. sbp 50s. no distress noted. Objective Last 24 Hour Vital Signs Date Time Temp Pulse Resp B/P (MAP) Pulse Ox O2 Delivery O2 Flow Rate FiO2 09/18/17 05:46 85 53/29 09/18/17 03:30 90 24 55/15 90 Mechanical Ventilator 100 09/18/17 03:00 90 24 55/35 92 Mechanical Ventilator 100 4/17/18 02:30 121 24 106/16 92 Mechanical Ventilator 100 417/18 02:00 136 29 86/53 92 Mechanical Ventilator 100 417/18 01:45 97 24 100 417/18 01:30 136 25 83/52 92 Mechanical Ventilator 100 417/18 01:28 136 73/39 417/18 01:00 90 24 88/38 91 Mechanical Ventilator 100 17/18 00:30 97.4 119 29 89/60 92 Mechanical Ventilator 100 97.4 17/18 00:00 97.4 90 24 88/38 91 Mechanical Ventilator 100 97.4 17/18 00:00 98 417/18 00:00 100 16/18 23:30 90 24 72/24 91 Mechanical Ventilator 100 16/18 23:30 92 24 100 416/18 23:00 90 24 68/37 91 Mechanical Ventilator 100 16/18 22:30 89 24 69/30 91 Mechanical Ventilator 100 16/18 22:00 92 24 60/34 91 Mechanical Ventilator 100 16/18 21:30 92 24 60/34 91 Mechanical Ventilator 100 16/18 21:25 90 24 100 4/16/18 21:00 90 75/39 416/18 21:00 95 24 54/34 91 Mechanical Ventilator 100 16/18 20:30 100 24 81/24 90 Mechanical Ventilator 100 16/18 20:00 100 4/16/18 20:00 73 4/16/18 20:00 97.6 104 24 87/17 91 Mechanical Ventilator 100 97.6 16/18 19:30 89 24 90/48 91 Mechanical Ventilator 100 416/18 19:11 82 24 100 4/16/18 19:00 83 24 88/45 92 Mechanical Ventilator 100 4/16/18 18:30 80 24 58/30 87 Mechanical Ventilator 100 4/16/18 18:00 74 24 100/40 87 Mechanical Ventilator 100 4/16/18 17:30 96 24 97/28 87 Mechanical Ventilator 100 4/16/18 17:00 78 24 77/27 87 Mechanical Ventilator 100 4/16/18 16:58 63 24 100 4/16/18 16:30 97.4 68 24 69/29 86 Mechanical Ventilator 100 97.4 416/18 16:00 70 24 78/30 87 Mechanical Ventilator 100 09/17/17 16:00 68 09/17/17 16:00 100 09/17/17 16:00 100 09/17/17 15:30 72 24 65/26 90 Mechanical Ventilator 100 09/17/17 15:27 55 24 100 09/17/17 15:00 74 24 88/35 89 Mechanical Ventilator 100 09/17/17 14:30 71 24 95/34 90 Mechanical Ventilator 100 09/17/17 14:00 77 24 97/37 90 Mechanical Ventilator 100 09/17/17 13:30 70 24 72/28 90 Mechanical Ventilator 100 09/17/17 13:00 98.2 73 22 95/33 90 Mechanical Ventilator 100 98.2 09/17/17 12:52 67 24 100 09/17/17 12:30 76 24 84/32 90 Mechanical Ventilator 100 09/17/17 12:00 68 09/17/17 12:00 100 09/17/17 12:00 71 24 88/29 90 Mechanical Ventilator 100 09/17/17 12:00 71 09/17/17 11:30 71 24 53/26 90 Mechanical Ventilator 100 09/17/17 11:24 129 24 100 09/17/17 11:00 73 24 75/28 90 Mechanical Ventilator 100 09/17/17 10:30 76 24 78/34 91 Mechanical Ventilator 100 09/17/17 10:00 82 24 113/36 91 Mechanical Ventilator 100 09/17/17 09:40 87 61/28 09/17/17 09:30 84 24 83/42 90 Mechanical Ventilator 100 09/17/17 09:00 84 23 80/28 91 Mechanical Ventilator 100 09/17/17 08:57 88 24 100 09/17/17 08:22 78 61/28 09/17/17 08:00 84 09/17/17 08:00 100 09/17/17 08:00 98.6 83 26 61/28 91 Mechanical Ventilator 100 98.6 09/17/17 07:19 81 25 100 09/17/17 07:00 90 25 89/45 91 Mechanical Ventilator 100 09/17/17 06:00 79 25 109/37 91 Mechanical Ventilator 100 Intake and Output 09/17/17 09/18/17 19:00 07:00 Intake Total 1721.6 ml 30 ml Output Total 30 ml 25 ml Balance 1691.6 ml 5 ml IV Total 1391.6 ml 30 ml Tube Feeding 100 ml Other 230 ml Output Urine Total 30 ml 25 ml # Bowel Movements 3 2 Height (Feet): 4 Height (Inches): 10.00 Weight (Pounds): 120 Objective General Appearance: WD/WN, alert/opens eyes Neck: supple Cardiovascular: normal rate, regular rhythm Respiratory/Chest: chest wall non-tender, lungs with rhonchi tony Abdomen: normal bowel sounds, non tender, soft, no organomegaly Neurologic: disoriented CHRISTINA HAMMOND Sep 18, 2017 05:58
--- NOTE | 2017-09-18 08:07 | General Progress Note ---
Assessment/Plan Assessment/Plan Assessment - hypotension / shock / moribund - Diarrhea, C Diff (-) - afib, RVR - Metastatic H&N CA - Resp failure - Renal failure - Poor Px Recommendations - supportive care - doubt will survive much longer - agree with comfort measures Subjective Allergies: Coded Allergies: PENICILLINS (Verified Allergy, Unknown, 07/31/16) Subjective Above noted doing very poorly hypotensive, on max pressors Objective Last 24 Hour Vital Signs Date Time Temp Pulse Resp B/P (MAP) Pulse Ox O2 Delivery O2 Flow Rate FiO2 09/18/17 06:00 78 24 56/29 91 Mechanical Ventilator 100 09/18/17 05:56 98 24 100 09/18/17 05:46 85 53/29 09/18/17 05:30 85 24 55/29 91 Mechanical Ventilator 100 09/18/17 05:00 86 24 53/29 90 Mechanical Ventilator 100 09/18/17 04:30 85 20 48/23 90 Mechanical Ventilator 100 09/18/17 04:00 98.5 84 24 59/35 90 Mechanical Ventilator 100 98.5 09/18/17 04:00 84 09/18/17 04:00 100 09/18/17 03:30 90 24 55/15 90 Mechanical Ventilator 100 09/18/17 03:15 92 24 100 09/18/17 03:00 90 24 55/35 92 Mechanical Ventilator 100 09/18/17 02:30 121 24 106/16 92 Mechanical Ventilator 100 09/18/17 02:00 136 29 86/53 92 Mechanical Ventilator 100 09/18/17 01:45 97 24 100 09/18/17 01:30 136 25 83/52 92 Mechanical Ventilator 100 09/18/17 01:28 136 73/39 09/18/17 01:00 90 24 88/38 91 Mechanical Ventilator 100 09/18/17 00:30 97.4 119 29 89/60 92 Mechanical Ventilator 100 97.4 09/18/17 00:00 97.4 90 24 88/38 91 Mechanical Ventilator 100 97.4 09/18/17 00:00 98 09/18/17 00:00 100 09/17/17 23:30 90 24 72/24 91 Mechanical Ventilator 100 09/17/17 23:30 92 24 100 09/17/17 23:00 90 24 68/37 91 Mechanical Ventilator 100 09/17/17 22:30 89 24 69/30 91 Mechanical Ventilator 100 4/16/18 22:00 92 24 60/34 91 Mechanical Ventilator 100 4/16/18 21:30 92 24 60/34 91 Mechanical Ventilator 100 4/16/18 21:25 90 24 100 4/16/18 21:00 90 75/39 4/16/18 21:00 95 24 54/34 91 Mechanical Ventilator 100 4/16/18 20:30 100 24 81/24 90 Mechanical Ventilator 100 4/16/18 20:00 100 4/16/18 20:00 73 4/16/18 20:00 97.6 104 24 87/17 91 Mechanical Ventilator 100 97.6 4/16/18 19:30 89 24 90/48 91 Mechanical Ventilator 100 4/16/18 19:11 82 24 100 4/16/18 19:00 83 24 88/45 92 Mechanical Ventilator 100 4/16/18 18:30 80 24 58/30 87 Mechanical Ventilator 100 4/16/18 18:00 74 24 100/40 87 Mechanical Ventilator 100 416/18 17:30 96 24 97/28 87 Mechanical Ventilator 100 4/16/18 17:00 78 24 77/27 87 Mechanical Ventilator 100 4/16/18 16:58 63 24 100 4/16/18 16:30 97.4 68 24 69/29 86 Mechanical Ventilator 100 97.4 4/16/18 16:00 70 24 78/30 87 Mechanical Ventilator 100 4/16/18 16:00 68 4/16/18 16:00 100 4/16/18 16:00 100 4/16/18 15:30 72 24 65/26 90 Mechanical Ventilator 100 4/16/18 15:27 55 24 100 4/16/18 15:00 74 24 88/35 89 Mechanical Ventilator 100 4/16/18 14:30 71 24 95/34 90 Mechanical Ventilator 100 4/16/18 14:00 77 24 97/37 90 Mechanical Ventilator 100 4/16/18 13:30 70 24 72/28 90 Mechanical Ventilator 100 4/16/18 13:00 98.2 73 22 95/33 90 Mechanical Ventilator 100 98.2 4/16/18 12:52 67 24 100 4/16/18 12:30 76 24 84/32 90 Mechanical Ventilator 100 4/16/18 12:00 68 4/16/18 12:00 100 4/16/18 12:00 71 24 88/29 90 Mechanical Ventilator 100 09/17/17 12:00 71 09/17/17 11:30 71 24 53/26 90 Mechanical Ventilator 100 09/17/17 11:24 129 24 100 09/17/17 11:00 73 24 75/28 90 Mechanical Ventilator 100 09/17/17 10:30 76 24 78/34 91 Mechanical Ventilator 100 09/17/17 10:00 82 24 113/36 91 Mechanical Ventilator 100 09/17/17 09:40 87 61/28 09/17/17 09:30 84 24 83/42 90 Mechanical Ventilator 100 09/17/17 09:00 84 23 80/28 91 Mechanical Ventilator 100 09/17/17 08:57 88 24 100 09/17/17 08:22 78 61/28 Intake and Output 09/17/17 09/18/17 19:00 07:00 Intake Total 1721.6 ml 1024 ml Output Total 30 ml 59 ml Balance 1691.6 ml 965 ml IV Total 1391.6 ml 1024 ml Tube Feeding 100 ml Other 230 ml Output Urine Total 30 ml 29 ml Stool Total 30 ml # Bowel Movements 3 3 Height (Feet): 4 Height (Inches): 10.00 Weight (Pounds): 149 Objective Debilitated elderly woman NCAT (+) trach CTA RRR Soft ND NT no edema (+) rectal tube OBS BIN MYERS Sep 18, 2017 08:07
[2017-09-18] MEDS: Metoprolol Tartrate 50mg tab GT SCH (08:42)
[2017-09-18] MEDS: Vitamin A&D Oint 2oz Tube TOPIC SCH ×2 (08:44→10:52)
[2017-09-18] MEDS: levETIRAcetam 500mg/5ml Liquid GT SCH (08:44)
[2017-09-18] MEDS: Pantoprazole Inj IVP SCH (08:44)
[2017-09-18] MEDS: Aspirin Baby 81mg NG SCH (08:44)
[2017-09-18] MEDS: Midodrine 10mg tab GT SCH ×2 (08:44→10:52)
[2017-09-18] MEDS ORDERED: 1/2 NS 1000ml IV ONE (08:57)
--- NOTE | 2017-09-18 11:02 | Infectious Diseases Prog Note ---
"Assessment/Plan Assessment/Plan antibiotics : ceftazidime A 1. stenotrophomonas | pseudomonas pneumonia 2. respiratory failure 3. UT 4. renal failure 5. 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 fungal UTI P 1. continue ceftazidime 2. start fluconazole 3. will follow up cultures 4. poor prognosis Subjective ROS Limited/Unobtainable: Yes Allergies: Coded Allergies: PENICILLINS (Verified Allergy, Unknown, 07/31/16) Objective Vital Signs Last 24 Hour Vital Signs Date Time Temp Pulse Resp B/P (MAP) Pulse Ox O2 Delivery O2 Flow Rate FiO2 09/18/17 09:31 71 42/18 09/18/17 09:19 72 27 100 09/18/17 09:00 98.1 72 24 45/28 47 Mechanical Ventilator 100 98.1 09/18/17 08:42 72 40/22 09/18/17 08:00 100 09/18/17 08:00 74 09/18/17 08:00 75 26 33/18 47 Mechanical Ventilator 100 09/18/17 07:30 75 26 34/10 53 Mechanical Ventilator 100 09/18/17 07:24 73 26 100 09/18/17 07:00 75 24 42/18 59 Mechanical Ventilator 100 09/18/17 06:00 78 24 56/29 91 Mechanical Ventilator 100 09/18/17 05:56 98 24 100 09/18/17 05:46 85 53/29 09/18/17 05:30 85 24 55/29 91 Mechanical Ventilator 100 09/18/17 05:00 86 24 53/29 90 Mechanical Ventilator 100 09/18/17 04:30 85 20 48/23 90 Mechanical Ventilator 100 09/18/17 04:00 98.5 84 24 59/35 90 Mechanical Ventilator 100 98.5 09/18/17 04:00 84 09/18/17 04:00 100 09/18/17 03:30 90 24 55/15 90 Mechanical Ventilator 100 09/18/17 03:15 92 24 100 09/18/17 03:00 90 24 55/35 92 Mechanical Ventilator 100 09/18/17 02:30 121 24 106/16 92 Mechanical Ventilator 100 09/18/17 02:00 136 29 86/53 92 Mechanical Ventilator 100 09/18/17 01:45 97 24 100 09/18/17 01:30 136 25 83/52 92 Mechanical Ventilator 100 4/17/18 01:28 136 73/39 4/17/18 01:00 90 24 88/38 91 Mechanical Ventilator 100 417/18 00:30 97.4 119 29 89/60 92 Mechanical Ventilator 100 97.4 417/18 00:00 97.4 90 24 88/38 91 Mechanical Ventilator 100 97.4 417/18 00:00 98 4/17/18 00:00 100 416/18 23:30 90 24 72/24 91 Mechanical Ventilator 100 4/16/18 23:30 92 24 100 4/16/18 23:00 90 24 68/37 91 Mechanical Ventilator 100 4/16/18 22:30 89 24 69/30 91 Mechanical Ventilator 100 416/18 22:00 92 24 60/34 91 Mechanical Ventilator 100 16/18 21:30 92 24 60/34 91 Mechanical Ventilator 100 16/18 21:25 90 24 100 416/18 21:00 90 75/39 416/18 21:00 95 24 54/34 91 Mechanical Ventilator 100 16/18 20:30 100 24 81/24 90 Mechanical Ventilator 100 416/18 20:00 100 4/16/18 20:00 73 4/16/18 20:00 97.6 104 24 87/17 91 Mechanical Ventilator 100 97.6 16/18 19:30 89 24 90/48 91 Mechanical Ventilator 100 416/18 19:11 82 24 100 4/16/18 19:00 83 24 88/45 92 Mechanical Ventilator 100 416/18 18:30 80 24 58/30 87 Mechanical Ventilator 100 416/18 18:00 74 24 100/40 87 Mechanical Ventilator 100 4/16/18 17:30 96 24 97/28 87 Mechanical Ventilator 100 4/16/18 17:00 78 24 77/27 87 Mechanical Ventilator 100 4/16/18 16:58 63 24 100 4/16/18 16:30 97.4 68 24 69/29 86 Mechanical Ventilator 100 97.4 4/16/18 16:00 70 24 78/30 87 Mechanical Ventilator 100 4/16/18 16:00 68 4/16/18 16:00 100 4/16/18 16:00 100 4/16/18 15:30 72 24 65/26 90 Mechanical Ventilator 100 4/16/18 15:27 55 24 100 4/16/18 15:00 74 24 88/35 89 Mechanical Ventilator 100 09/17/17 14:30 71 24 95/34 90 Mechanical Ventilator 100 09/17/17 14:00 77 24 97/37 90 Mechanical Ventilator 100 09/17/17 13:30 70 24 72/28 90 Mechanical Ventilator 100 09/17/17 13:00 98.2 73 22 95/33 90 Mechanical Ventilator 100 98.2 09/17/17 12:52 67 24 100 09/17/17 12:30 76 24 84/32 90 Mechanical Ventilator 100 09/17/17 12:00 68 09/17/17 12:00 100 09/17/17 12:00 71 24 88/29 90 Mechanical Ventilator 100 09/17/17 12:00 71 09/17/17 11:30 71 24 53/26 90 Mechanical Ventilator 100 09/17/17 11:24 129 24 100 Height (Feet): 4 Height (Inches): 10.00 Weight (Pounds): 149 HEENT: status post trach Respiratory/Chest: lungs clear Cardiovascular: normal rate, regular rhythm, no gallop/murmur Abdomen: soft, non tender, other - GT Extremities: other - + edema, right arm PICC Microbiology Date/Time Source Procedure Growth Status 09/15/17 17:30 Urine,Clean Catch Urine Culture - Final Dorys Tropicalis Complete Current Medications Medications (Trade) Dose Ordered Sig/Josiah Route PRN Reason Start Time Stop Time Status Last Admin Dose Admin Acetaminophen (Tylenol) 650 mg Q4H PRN GT Mild Pain/Temp > 100.5 09/11/17 09:00 10/11/17 08:59 09/15/17 05:39 Aspirin (ASA) 81 mg DAILY NG 09/10/17 11:00 10/10/17 10:59 09/17/17 08:20 Ceftazidime 1 gm/ Dextrose 110 ml @ 220 mls/hr Q24H IV 09/16/17 10:00 09/23/17 09:59 09/17/17 10:50 Chlorhexidine Gluconate (Cathy-Hex 2%) 1 applic DAILY@2000 TOPIC 09/11/17 20:00 10/11/17 19:59 09/17/17 20:11 Levetiracetam (Keppra) 500 mg Q12HR GT 09/10/17 12:00 10/10/17 11:59 09/17/17 21:03 Levothyroxine Sodium (Synthroid) 150 mcg ACBREAKFAST GT 09/13/17 06:30 10/13/17 06:29 09/17/17 06:08 Metoclopramide HCl (Reglan) 5 mg Q6H GT 09/14/17 21:00 10/14/17 20:59 09/18/17 03:20 Metoprolol Tartrate (Lopressor) 50 mg Q12HR GT 09/13/17 21:00 10/12/17 20:59 09/16/17 20:35 Midodrine (Pro-Amatine) 10 mg THREE TIMES A DAY GT 09/10/17 13:00 10/10/17 12:59 09/17/17 18:21 Pantoprazole (Protonix) 40 mg DAILY IVP 09/10/17 11:00 10/10/17 10:59 09/17/17 08:20 Phenylephrine HCl 50 mg/Dextrose 250 ml @ 0 mls/hr Q24H IV 09/17/17 09:15 10/17/17 09:14 09/18/17 09:31 Sodium Chloride 1,000 ml @ 50 mls/hr Q20H IV 09/18/17 15:45 10/18/17 15:44 09/18/17 03:20 Vitamin A/Vitamin D (A & D Oint) 1 applic BID TOPIC 09/10/17 12:00 10/10/17 11:59 09/18/17 08:44 MARA BLOCK Sep 18, 2017 11:02"
[2017-09-18] MEDS ORDERED: Fluconazole 100mg tab ORAL SCH (12:00)
--- NOTE | 2017-09-18 12:44 | Emergency Room Report ---
History of Present Illness General Chief Complaint: Dyspnea/Respdistress Source: Medical Record Present Illness Allergies: Coded Allergies: PENICILLINS (Verified Allergy, Unknown, 07/31/16) Nursing Documentation-[facility] Past Medical History Deferred: Pt Cognitively Impaired Hx Cardiac Problems: Yes Hx COPD: Yes - Trache Hx Cancer: Yes Hx Gastrointestinal Problems: Yes Hx Neurological Problems: Yes Hx Seizures: Yes Hx Speech Problem: Yes - trach Hx Weakness: Yes Physical Exam Vital Signs Date Time Temp Pulse Resp B/P (MAP) Pulse Ox O2 Delivery O2 Flow Rate FiO2 09/14/17 07:00 102 18 102/36 98 Mechanical Ventilator 100 09/14/17 08:00 99.2 99.2 Medical Decision Making Diagnostic Impression: Primary Impression: Tracheostomy dependence Additional Impressions: Respiratory distress Lung metastases Hypoxia NSTEMI (non-ST elevated myocardial infarction) ER Course I was called to evaluate patient for . Patient had been noted to have asystole at 1205. This was verified in 2 leads. Patient was on a ventilator. Pulses were absent. Patient was pronounced . Time of 12:05 PM. Primary MD. notified. Last Vital Signs Date Time Temp Pulse Resp B/P (MAP) Pulse Ox O2 Delivery O2 Flow Rate FiO2 09/18/17 11:30 38 24 39 Mechanical Ventilator 100 09/18/17 09:00 98.1 98.1 Disposition: Condition: Referrals: CHRISTINA HAMMOND (PCP) Kg Pérez Sep 18, 2017 12:44
--- NOTE | 2017-09-19 02:15 | Progress Note ---
DATE: 09/18/2017 CARDIOLOGY PROGRESS NOTE SUBJECTIVE: The patient's condition is critical. Prognosis is grave. She continues to require high-dose pressors. She is on full ventilator support. Urine output is poor. Metabolic parameters have deteriorated. OBJECTIVE: VITAL SIGNS: Blood pressure 43/18, pulse 71, respirations 27, and afebrile. GENERAL: Unresponsive, diffuse edema. LUNGS: Diminished breath sounds with rhonchi. HEART: Irregularly irregular rhythm. ABDOMEN: G-tube intact. IMPRESSION: 1. Multiorgan system failure. 2. Metastatic head and neck cancer. 3. Profound shock. 4. Hypoxia. PLAN: 1. . The patient is DNR. is anticipated. 2. We will continue ventilator support. 3. Comfort measures. 4. Antimicrobials and pressors. Chi Bhatti M.D. DR: JANAY JOB#: [id number] CC:
--- NOTE | 2017-09-20 15:30 | Discharge Summary ---
Discharge Summary Hospital Course Date of Admission Sep 09, 2017 at 19:35 Date of Discharge Sep 18, 2017 at 12:05 Admitting Diagnosis hypoxia/sob/ rapid afib HPI Tara Friedman is a 82 year old female who was admitted on Sep 09, 2017 at 19: 35 for Hypoxia/Shortness Of Breath/Rapid Afib Hospital Course [id number] Discharge Discharge Disposition Patient Latonya Mercado NP Sep 20, 2017 15:30
--- NOTE | 2017-09-21 00:14 | Diagnostic Imaging Report ---
APPROVED REPORT CPT Code: 20535 Present Symptoms Shortness of breath BILATERAL: Imaging reveals a patent deep venous system bilaterally. There is no evidence of thrombus within the femoral, popliteal or tibial segments. The greater saphenous veins are also within normal limits. Doppler indicates normal spontaneous flow within these segments.
--- NOTE | 2017-09-21 03:45 | Discharge Summary 2 SIG ---
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 On initial evaluation at ED, she was noted to have elevated troponin of 5. She was planned for transfer to [facility], however, developed rapid atrial fibrillation. She was given Cardizem and was eventually admitted to ICU and was placed on Cardizem drip. She was given IV fluid resuscitation. She was followed by grant specialist. She was given anti-platelet therapy. Unable to give full anticoagulation, as the patient was noted to have hemoptysis. She had a drop in hemoglobin and required one unit packed RBC blood transfusion. She was afebrile and tachycardic. WBC was elevated. Chest x-ray with left-sided pleural effusion and loculated component in the right upper lobe. She was initially given ertapenem, which was later switched to meropenem. She was also given vancomycin. Head CT showed no acute bleed, mass effect, or edema with mild atrophy of the brain and chronic small vessel disease. She had a leak on the G-tube site. The patient's gastrostomy tube had been placed sometime ago secondary to the head and neck cancer. She was given Reglan to help gastric emptying. She had a history of chronic respiratory failure and was connected on ventilator. She was noted to have hemoptysis on heparin drip and was discontinued. She came in with stage II sacral pressure ulcer and was given wound care. She was poorly responsive and blood pressure was low. She was initially placed on midodrine, however, was eventually started on IV pressors. Sputum culture with Pseudomonas and Stenotrophomonas. Meropenem was discontinued. She was given cefepime and Levaquin. Kidney function worsened. She developed acute kidney injury in the setting of respiratory failure and multiorgan failure. She had low serum albumin and heavy proteinuria and was oliguric. She continued to decline and had poor prognosis. Family eventually agreed to DNR and comfort care. The patient eventually . FINAL DIAGNOSES: 1. Cardiopulmonary arrest. 2. Multiorgan system failure. 3. Metastatic head and neck cancer. 4. Stenotrophomonas/Pseudomonas pneumonia. 5. Fungal urinary tract infection. 6. Acute kidney injury. 7. Acute on chronic respiratory failure. 8. Non-ST elevated myocardial infarction. 9. Malignant neoplasm of the head and neck. 10. Dysphagia, on gastrostomy tube. 11. Atrial fibrillation with rapid ventricular response. 12. Diarrhea, Clostridium difficile negative. 13. Severe protein-calorie malnutrition. 14. Sepsis. 15. Shock. 16. Lung metastasis. 17. Stage II sacral pressure ulcer, present on admission. 18. Drop in hemoglobin requiring blood transfusion. 19. Do not resuscitate/comfort measures. DISPOSITION: The patient . Rico Madrigal M.D. I have been assigned to dictate discharge summary on this account and I was not involved in the patient's management. Latonya Mercado N.P. DR: KLAUDIA JOB#: [id number] CC: [email or web address]
== END 2017-09-18 12:05 | disposition expired | DRG 870 ==
LOC: EDBEDREQ 18:28 → EMR 19:23 → ICU 19:35 → EDBEDREQ 09-10 03:30 → EDBEDREQSVC 09-10 03:30 → EDBEDREQ 09-10 05:37
PROC: 5A1955Z Respiratory Ventilation, Greater than 96 Consecutive Hours (ICD-10-PCS; principal; 2017-09-09)
PROC: B548ZZA Ultrasonography of Superior Vena Cava, Guidance (ICD-10-PCS; 2017-09-11)
PROC: 02HV33Z Insertion of Infusion Device into Superior Vena Cava, Percutaneous Approach (ICD-10-PCS; 2017-09-11)
DX: A41.9 Sepsis, unspecified organism (principal); I21.4 Non-ST elevation (NSTEMI) myocardial infarction; J96.21 Acute and chronic respiratory failure with hypoxia; I50.33 Acute on chronic diastolic (congestive) heart failure; R65.21 Severe sepsis with septic shock; E43 Unspecified severe protein-calorie malnutrition; J15.1 Pneumonia due to Pseudomonas; C78.00 Secondary malignant neoplasm of unspecified lung; J91.0 Malignant pleural effusion; E87.1 Hypo-osmolality and hyponatremia; N39.0 Urinary tract infection, site not specified; B49 Unspecified mycosis; R04.2 Hemoptysis; N17.9 Acute kidney failure, unspecified; Z93.1 Gastrostomy status; Z93.0 Tracheostomy status; C76.0 Malignant neoplasm of head, face and neck; I48.0 Paroxysmal atrial fibrillation; E87.5 Hyperkalemia; D64.9 Anemia, unspecified; E83.42 Hypomagnesemia; R62.7 Adult failure to thrive; Z68.31 Body mass index [BMI] 31.0-31.9, adult; R13.10 Dysphagia, unspecified; E03.9 Hypothyroidism, unspecified; R19.7 Diarrhea, unspecified; K94.29 Other complications of gastrostomy; Z66 Do not resuscitate; Z51.5 Encounter for palliative care; L89.152 Pressure ulcer of sacral region, stage 2
CPT/HCPCS: 36415; 36569; 36600; 70450; 71045; 76770; 76937; 80048; 80053; 80061; 80162; 80202; 81001; 81003; 82044; 82550; 82570; 82803; 82962; 83735; 83880; 83935; 84300; 84484; 84550; 85007; 85025; 85610; 85730; 86850; 86900; 86901; 86920; 87040; 87070; 87081; 87086; 87181; 87205; 87324; 93005; 93970; 94002; 94003; 94640; 99291; J2370